=== PATIENT | female | born 1990 | race Caucasian/White ===

== ENCOUNTER 2017-10-08 16:08 | Observation (INO) | payer OTHER, SELFPAY ==
--- NOTE | 2017-10-05 22:17 | HP.PCM_ITS ---
History and Physical Date of Admission: 10/06/17 HISTORY OF PRESENT ILLNESS 27 year old woman presents with a recurrent soft tissue mass on her right occipital scalp area that has increased in size over the last few months. There is some discomfort when she bumps it. She denies any trauma. She denies any fever. She denies any recent infection. She initially had a nodular lesion removed from this area in 08/[address] Hughes. The Pathology was negative for carcinoma according to the patient. She states she had headaches that initially improved after that excision in 08/20, and they have since returned. She had a recent MRI which showed this nodular mass in the right occipital area and no intracranial component. PAST MEDICAL HISTORY Headaches. UTI's. Recurrent vaginitis. Anxiety. Depression. PAST SURGICAL HISTORY Excision right occipital nodular lesion - 08/20. MEDICATIONS Topamax. Valtrex. Diflucan. Nystatin-Triamcinolone ointment. Tylenol PM. ALLERGIES Oxycodone. SOCIAL HISTORY Patient does not smoke. Patient does not drink alcohol. FAMILY HISTORY Negative for skin cancer. Diabetes. Hypertension. REVIEW OF SYSTEMS General - Denies fever, weight loss. Has fatigue. ENT - Denies nasal congestion and sore throat. Eyes - Denies cataracts. Denies glaucoma. Endocrine - Denies excessive thirst or urination. Skin - Has recurrent painful soft tissue mass right occipital scalp. Musculoskeletal - Denies joint pain, joint stiffness, weakness of muscles and joints, back pain, and arthritis. Neuro - Has headaches. Has lightheadedness. Cardiovascular - Denies chest pain. Has fatigue. Has lightheadedness. Denies shortness of breath with exertion. Psych - Has anxiety. Has some depression. Respiratory - Denies shortness of breath. Denies chronic cough. Gastrointestinal - Denies nausea, vomiting, diarrhea, and constipation. Hematologic - Denies abnormal bruising and bleeding. Genitourinary - Denies urinary frequency. Has some hematuria. Has UTI's and recurrent vaginitis. PHYSICAL EXAMINATION General - Alert and oriented. HEENT - PERRL. EOMI. Throat is clear. On the right occipital scalp just inferior to a previous scar is a nodular lesion that is mobile. There is some adherence to the overlying skin. It measures 1.5 cm. Slight tenderness to palpation. No ulceration. No evidence of infection. No sensory deficits. Neck - Supple and nontender. No cervical adenopathy. Lungs - Clear to auscultation. Heart - Regular rate and rhythm. Abdomen - Soft and nondistended. Extremities - FROM. No axillary adenopathy. Radial pulses are palpable. Neuro - CN II - XII grossly intact. ASSESSMENT 1. 1.5 cm recurrent painful nodular lesion right occipital scalp. 2. Headaches. PLAN MRI reviewed. Recommend excision of this recurrent painful soft tissue mass right occipital scalp. Will send the lesion to Pathology for analysis to rule out carcinoma. Should be able to close the wound primarily. However with the history of previous excision, will remove the scar tissue along with the lesion. If the lesion is close to the skin, I may remove some additional skin to minimize recurence. This may necessitate a local skin flap for reconstruction. Doubt I would need to place a skin graft there. It was discussed with the patient that after surgery, there is the chance she may develop a small area of alopecia in the area of the scar. The patient voices understanding and wishes to proceed. Patient was informed of the risks and complications of the procedure including alternatives to surgery. These were discussed with her personally. She voices understanding and wishes to proceed. Some of the risks and complications of the procedure were included in a form from the [employer]. Surgery will be done under general anesthesia on an outpatient basis.
[2017-10-06] VITALS (13 sets, daily range): BP systolic 103–120; BP diastolic 61–80; PULSE 60–85; RESP 12–18; TEMP 35.7–37.1; O2SAT 96–100; BMI 23.3; BMI 24.5
[2017-10-06 09:23] LABS: Internal QC Validated? YES +Cl - CLEAR BKGD; Pregnancy, Urine Negative Negative
--- NOTE | 2017-10-06 10:50 | LES_PTH ---
PATIENT: SCHUYLER DUKE LOC: [facility]3 U#:[id number] AGE/SX: 27/F ROOM: MS315 RE10/08/[address]: Dr. Elia Perrin MD : 1990 BED: 1 DIS: 10/11/2017 SPEC #: [id number] RECD: 10/07/17 09:23 STATUS: SILVIA REJanette #: [id number] BRENT: 10/06/17 10:[address]: Elia Perrin DEPT: SURGICAL PATHOLOGY RECD BY: Lolis Garcia ENTERED: 10/07/17 11:09 SP TYPE: Lesion OTHR DR: Dr. Naheed Kam DO Tissues: Skin of scalp, NOS Procedures: Decalcification bone/plaque Surgery Specimen Level III HEADER OPERATION: Excision submuscular bony lesion, right occipital scalp PRE-OP DIAGNOSIS: 1.5 cm recurrent painful nodular lesion right occipital scalp TISSUE SUBMITTED: Recurrent painful lesion right occipital scalp MICROSCOPIC DIAGNOSIS Recurrent painful lesion right occipital scalp, excision: Pieces of bone with reactive changes. Adherent pieces of fibroadipose tissue with mild chronic inflammation. Negative for malignancy. AUDI:anila 10/12/17 MICROSCOPIC DESCRIPTION Slides are reviewed. GROSS DESCRIPTION Received in fixative is one container labeled with the patient's name and designated recurrent painful bony lesion right occipital scalp. The specimen consists of multiple pieces of bone that in aggregate measure 2.5 x 2.5 x 0.3 cm. The entire specimen is submitted in one cassette after decalcification. / AUDI:anila 10/07/17 TC:5 CPT: 34839, 91148
[2017-10-06] MEDS: Clindamycin 900 MG/50 ML BAG 75 MG IV (11:16)
[2017-10-06] MEDS: Mupirocin Ointment 22gm Tube 1 APPLIC (12:41)
--- NOTE | 2017-10-06 12:59 | PCM.IMDPSTOP ---
Immediate Post-Op Note Date of Procedure: 10/06/17 Primary Surgeon/Physician: Elia Perrin ldr rn: None Pre-Operative Diagnosis: 1. 1.5 cm recurrent painful nodular lesion right occipital scalp. 2. Headaches. Post-Operative Diagnosis: 1. 1.5 cm recurrent painful submuscular bone lesion right occipital scalp. 2. Headaches. Surgery/Procedure Performed:: Excision 1.5 cm recurrent painful submuscular bone lesion right occipital scalp with 3 cm complex closure. Description of Surgical Findings:: 27 year old woman presents with a recurrent soft tissue mass on her right occipital scalp area that has increased in size over the last few months. There is some discomfort when she bumps it. She denies any trauma. She denies any fever. She denies any recent infection. She initially had a nodular lesion removed from this area in 08/[address] Hughes. The Pathology was negative for carcinoma according to the patient. She states she had headaches that initially improved after that excision in 08/20, and they have since returned. She had a recent MRI which showed this nodular mass in the right occipital area and no intracranial component. Today the patient underwent excision 1.5 cm recurrent painful submuscular bone lesion right occipital scalp with 3 cm complex closure. Estimated Blood Loss: 50 ml. Specimen's removed: Submuscular bone lesion right occipital scalp to Pathology. Drains: None. Type of Anesthesia:: General - Admit VTE Documentation VTE Present on Admission: No VTE Mechan Device Prophylaxis: SCD's VTE Pharm Prophylaxis ordered?: No
--- NOTE | 2017-10-06 13:08 | OP.PN_ITS ---
Immediate Post-Op Note Date of Procedure: 10/06/17 Primary Surgeon/Physician: Elia Perrin accredited legal secretary: None Pre-Operative Diagnosis: 1. 1.5 cm recurrent painful nodular lesion right occipital scalp. 2. Headaches. Post-Operative Diagnosis: 1. 1.5 cm recurrent painful submuscular bone lesion right occipital scalp. 2. Headaches. Surgery/Procedure Performed:: Excision 1.5 cm recurrent painful submuscular bone lesion right occipital scalp with 3 cm complex closure. Description of Surgical Findings:: 27 year old woman presents with a recurrent soft tissue mass on her right occipital scalp area that has increased in size over the last few months. There is some discomfort when she bumps it. She denies any trauma. She denies any fever. She denies any recent infection. She initially had a nodular lesion removed from this area in 08/[address] Hughes. The Pathology was negative for carcinoma according to the patient. She states she had headaches that initially improved after that excision in 08/20, and they have since returned. She had a recent MRI which showed this nodular mass in the right occipital area and no intracranial component. Today the patient underwent excision 1.5 cm recurrent painful submuscular bone lesion right occipital scalp with 3 cm complex closure. Estimated Blood Loss: 50 ml. Specimen's removed: Submuscular bone lesion right occipital scalp to Pathology. Drains: None. Type of Anesthesia:: General - Admit VTE Documentation VTE Present on Admission: No VTE Mechan Device Prophylaxis: SCD's VTE Pharm Prophylaxis ordered?: No
--- NOTE | 2017-10-06 13:15 | PCM.DC ---
You will use the following diet at home:: No restrictions Discharge Activity: May not drive while taking narcotic pain medications., May Shower - in two days., - - keep head elevated. no heavy lifting. May shower in (days): 2 May resume sexual activity in: No Restrictions Weight Bearing Status: Weight bearing as tolerated Lifting Restrictions: 20 lbs. Keep extremity elevated above heart level: - - elevate head. Call your doctor if your incision/area has: Continuous Slow Oozing, Sudden Increased Bleeding, Increased Pain/ Swelling, Increased Redness, Foul Smelling Discharge, Swelling at the incision site Call your doctor if you observe: Fever of 101 or Higher, Shortness of breath, Chest pain, Calf discomfort, Uncontrolled pain Suture Line Care: - - antibiotic ointment to suture line daily. Cleanse incision/area with: - - may get incision wet in the shower in two days. Allergies/Adverse Reactions: Allergies oxycodone [From Percocet] Adverse Reaction (Verified 09/29/17 15:05) Nausea Medications to take at Discharge topiramate 25 mg tablet 50 mg PO QHS 09/20/17 valacyclovir 500 mg tablet 500 mg PO QDAY PRN 09/20/17 Acetaminophen/Diphenhydramine [Tylenol Pm Ex-Strength Caplet] 1 each PO QHS PRN 10/05/17 Fluconazole 150 mg PO .COMPLEX 10/05/17 Nystatin/Triamcin [Nystatin-Triamcinolone Ointm] 1 applic TOPICAL TID PRN 10/05/17 Clindamycin HCl [Cleocin] 300 mg PO TID #15 cap 10/06/17 Diazepam [Valium] 5 mg PO 4X/DAY PRN PRN 5 Days #20 tab 10/06/17 HydromorphONE [Dilaudid] 2 - 4 mg PO 4X/DAY PRN PRN 5 Days #40 tab 10/06/17 The following prescriptions were given: Diazepam [Valium] 5 mg PO 4X/DAY PRN PRN 5 Days #20 tab PRN Reason: Spasms HydromorphONE [Dilaudid] 2 - 4 mg PO 4X/DAY PRN PRN 5 Days #40 tab PRN Reason: Pain Clindamycin HCl [Cleocin] 300 mg PO TID #15 cap Primary Care Physician: Naheed Kam DO [Primary Care Provider] - Please Follow Up With: Elia Perrin MD When: one week. call [phone] for appt. Proposed Discharge Date: 10/06/17
--- NOTE | 2017-10-06 13:19 | DCINST_ITS ---
You will use the following diet at home:: No restrictions Discharge Activity: May not drive while taking narcotic pain medications., May Shower - in two days., - - keep head elevated. no heavy lifting. May shower in (days): 2 May resume sexual activity in: No Restrictions Weight Bearing Status: Weight bearing as tolerated Lifting Restrictions: 20 lbs. Keep extremity elevated above heart level: - - elevate head. Call your doctor if your incision/area has: Continuous Slow Oozing, Sudden Increased Bleeding, Increased Pain/ Swelling, Increased Redness, Foul Smelling Discharge, Swelling at the incision site Call your doctor if you observe: Fever of 101 or Higher, Shortness of breath, Chest pain, Calf discomfort, Uncontrolled pain Suture Line Care: - - antibiotic ointment to suture line daily. Cleanse incision/area with: - - may get incision wet in the shower in two days. Allergies/Adverse Reactions: Allergies oxycodone [From Percocet] Adverse Reaction (Verified 09/29/17 15:05) Nausea Medications to take at Discharge topiramate 25 mg tablet 50 mg PO QHS 09/20/17 valacyclovir 500 mg tablet 500 mg PO QDAY PRN 09/20/17 Acetaminophen/Diphenhydramine [Tylenol Pm Ex-Strength Caplet] 1 each PO QHS PRN 10/05/17 Fluconazole 150 mg PO .COMPLEX 10/05/17 Nystatin/Triamcin [Nystatin-Triamcinolone Ointm] 1 applic TOPICAL TID PRN Clindamycin HCl [Cleocin] 300 mg PO TID #15 cap 10/06/17 Diazepam [Valium] 5 mg PO 4X/DAY PRN PRN 5 Days #20 tab 10/06/17 HydromorphONE [Dilaudid] 2 - 4 mg PO 4X/DAY PRN PRN 5 Days #40 tab 10/06/17 The following prescriptions were given: Diazepam [Valium] 5 mg PO 4X/DAY PRN PRN 5 Days #20 tab PRN Reason: Spasms HydromorphONE [Dilaudid] 2 - 4 mg PO 4X/DAY PRN PRN 5 Days #40 tab PRN Reason: Pain Clindamycin HCl [Cleocin] 300 mg PO TID #15 cap Primary Care Physician: Naheed Kam DO [Primary Care Provider] - Please Follow Up With: Elia Perrin MD When: one week. call [phone] for appt. Proposed Discharge Date: 10/06/17
--- NOTE | 2017-10-06 19:25 | PCM.PN.BLA ---
Progress Note Patient was having difficulty with pain and nausea especially after receiving IV analgesics. Will send her upstairs for a surgical observation overnight stay and for continued IV analgesics as needed. When she is tolerating po analgesics and not nauseated, will be able to send her home.
[2017-10-06] MEDS: HYDROmorphone 2 MG TABLET PO (21:21)
[2017-10-06] MEDS: Lactated Ringers 1,000 ML 60 ML IV (21:22)
[2017-10-06] MEDS: Clindamycin 600 MG/50 ML BAG 100 MG IV (21:22)
[2017-10-06] MEDS: diazePAM 5 MG Tablet PO (22:47)
[2017-10-07] VITALS (7 sets, daily range): BP systolic 102–117; BP diastolic 57–76; PULSE 66–78; RESP 14–18; TEMP 36.6–37.2; O2SAT 95–100
[2017-10-07] MEDS: HYDROmorphone 2 MG TABLET PO ×3 (01:36→17:51)
[2017-10-07] MEDS: 0.9% NaCl Peripheral Flush Adult/Peds IV ×3 (04:43→10:00)
[2017-10-07] MEDS: Clindamycin 600 MG/50 ML BAG 100 MG IV ×3 (05:08→21:42)
[2017-10-07 06:35] LABS: Hematocrit 36.6 % (37-47); Hemoglobin 11.7 g/dl (12.0-15.0); Mean Corpuscular Hgb 27.3 pg (27.0-32.0); Mean Corpuscular Volume 85.3 fL (81-99); Mean Platelet Vol. 10.2 fl (6.2-12.0); Platelet Count 214 K/mm3 (150-450); RBC Distribution Width CV 13.5 % (11.6-14.6); RBC Distribution Width SD 41.6 fl (35.1-43.9); Red Blood Count 4.29 M/mm3 (4.2-5.4)
[2017-10-07 06:38] LABS: Scan Indicated on CBC? Y/N NO
[2017-10-07] MEDS: diazePAM 5 MG Tablet PO ×2 (06:54→21:42)
[2017-10-07] MEDS: Ondansetron 4 MG/2 ML Vial IV (06:54)
[2017-10-07 07:05] LABS: Prealbumin 18.3 mg/dL (20.0-40.0)
[2017-10-07] MEDS: Docusate Sodium 100 MG Capsule PO ×2 (09:58→21:43)
--- NOTE | 2017-10-07 12:10 | PN.SURG_ITS ---
Subjective: Postop #1 Patient complaining of incisional pain and spasm and burning nerve pain. Sometimes when she would sit up she would get lightheaded and dizzy(probably Morphine medication related). - Physical Exam General: Alert, Oriented x3 HEENT: PERRLA, EOMI Neck: Supple Lungs: Clear to auscultation Cardiovascular: Regular rate, Regular Rhythm Abdomen: Soft, Non-Distended Skin: Incision - right occipital scalp incision dry and intact. No evidence of hematoma. Some tenderness to palpation. Neurological: Cranial nerves II-XII grossly intact Psych/Mental Status: Normal Affect, Appropriate Vital Signs Temp Pulse Resp BP Pulse Ox 98.9 F 68 14 109/67 100 10/07/17 09:47 10/07/17 09:47 10/07/17 09:47 10/07/17 09:47 10/07/17 09:47 Oxygen Delivery Method Room Air Weight: 125 lb 14.143 oz Body Mass Index (BMI) 24.5 Intake and Output for Last 24 Hours 10/05/17 10/06/17 10/07/17 23:59 23:59 23:59 Intake Total 5569 / 5569 719 / 719 Output Total 1100 / 1100 1300 / 1300 Balance 4469 / 4469 -581 / -581 Laboratory Tests Past 24 Hrs 10/07/17 10/07/17 05:55 05:55 WBC 10.0 RBC 4.29 Hgb 11.7 L Hct 36.6 L MCV 85.3 MCH 27.3 MCHC 32.0 RDW 13.5 RDW Differential 41.6 Plt Count 214 MPV 10.2 Prealbumin 18.3 L Assessment/Plan 1.5 cm recurrent painful submuscular bone lesion right occipital scalp. 2. Headaches. 3. 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 4. Postop dizziness, probably Morphine medication related. Patient complains of incisional pain and spasm and burning nerve pain. Will add Neurontin and a Duragesic Patch. Will wean her Morphine to 2 mg in anticipation of discharge later today. Would like to see how the initial decrease and then discontinuation of Morphine affects her postop dizziness. Continue Valium for spasm. Wean to po analgesia and discharge home today. Keep head elevated. May shower tomorrow. Apply antibiotic ointment to suture line daily. Wrote script for Cleocin for 5 days (15 tabs). Wrote scripts for Dilaudid for pain (40 tabs) and for Valium for spasm (20 tabs ) and for Neurontin for burning nerve pain 100mg (60 tabs) with a refill and for Duragesic Patch for pain 12mcg (5 patches). Wrote scripts for Phenergan for nausea (30 tabs) with a refill and for Colace for constipation (60 tabs). Followup office one week.
--- NOTE | 2017-10-07 12:38 | PCM.DC ---
- Discharge Diagnoses Current Active Problems: Current Active and Chronic Problems (Last Updated 09/29/17 @ 14:56 by Beatris Brice) Bone neoplasm (Chronic) 1.5 cm painful submuscular bone lesion right occipital scalp Headache (Chronic) Discharge Activity: May not drive while taking narcotic pain medications., May Shower - in two days., - - keep head elevated. no heavy lifting. May shower in (days): 2 May resume sexual activity in: No Restrictions Weight Bearing Status: Weight bearing as tolerated Keep extremity elevated above heart level: - - elevate head. Call your doctor if your incision/area has: Continuous Slow Oozing, Sudden Increased Bleeding, Increased Pain/ Swelling, Increased Redness, Foul Smelling Discharge, Swelling at the incision site Call your doctor if you observe: Fever of 101 or Higher, Shortness of breath, Chest pain, Calf discomfort, Uncontrolled pain Suture Line Care: - - antibiotic ointment to suture line daily. Cleanse incision/area with: - - may get incision wet in the shower in two days. Allergies/Adverse Reactions: Allergies oxycodone [From Percocet] Adverse Reaction (Verified 09/29/17 15:05) Nausea Medications to take at Discharge topiramate 25 mg tablet 50 mg PO QHS 09/20/17 valacyclovir 500 mg tablet 500 mg PO QDAY PRN 09/20/17 Acetaminophen/Diphenhydramine [Tylenol Pm Ex-Strength Caplet] 1 each PO QHS PRN 10/05/17 Fluconazole 150 mg PO .COMPLEX 10/05/17 Nystatin/Triamcin [Nystatin-Triamcinolone Ointm] 1 applic TOPICAL TID PRN 10/05/17 Clindamycin HCl [Cleocin] 300 mg PO TID #15 cap 10/06/17 Diazepam [Valium] 5 mg PO 4X/DAY PRN PRN 5 Days #20 tab 10/06/17 HydromorphONE [Dilaudid] 2 - 4 mg PO 4X/DAY PRN PRN 5 Days #40 tab 10/06/17 Docusate Sodium [Colace] 100 mg PO BID #60 cap 10/07/17 Fentanyl [Duragesic] 12 mcg TRANSDERM. Q3D 15 Days #5 patch 10/07/17 Gabapentin [Neurontin] 100 mg PO BIDCM 30 Days #60 cap 10/07/17 ProMETHAzine [Phenergan] 25 mg PO 4X/DAY PRN PRN #30 tab 10/07/17 The following prescriptions were given: Diazepam [Valium] 5 mg PO 4X/DAY PRN PRN 5 Days #20 tab PRN Reason: Spasms Fentanyl [Duragesic] 12 mcg TRANSDERM. Q3D 15 Days #5 patch HydromorphONE [Dilaudid] 2 - 4 mg PO 4X/DAY PRN PRN 5 Days #40 tab PRN Reason: Pain ProMETHAzine [Phenergan] 25 mg PO 4X/DAY PRN PRN #30 tab PRN Reason: Nausea/Vomiting Docusate Sodium [Colace] 100 mg PO BID #60 cap Gabapentin [Neurontin] 100 mg PO BIDCM 30 Days #60 cap Clindamycin HCl [Cleocin] 300 mg PO TID #15 cap Primary Care Physician: Naheed Kam DO [Primary Care Provider] - Please Follow Up With: Elia Perrin MD When: one week. call [phone] for appt. Proposed Discharge Date: 10/06/17
[2017-10-07] MEDS: Lactated Ringers 1,000 ML 60 ML IV (12:59)
[2017-10-07] MEDS: Gabapentin 100 MG Capsule PO (17:51)
--- NOTE | 2017-10-07 18:35 | NURSING ---
In room discussing with pt that discharge was cancelled for day with reevaluation tomorrow. Discussed the importance of staff being with pt to walk into bathroom due to dizziness and safety. Pt states she needs to ambulate to bathroom, up to side of bed and reports feeling dizzy. Encouraged pt to sit as long as needed for dizziness to pass. Pt ambulated to bathroom independently with RN in room. Gait appeared steady. Pt voided and returned to bed.
[2017-10-07 20:35] LABS: Anion Gap 8 (5-15); BUN 8 mg/dL (7-18); BUN/Creat Ratio 12.4 RATIO (10-20); Calcium,Total 8.4 mg/dL (8.5-10.1); Chloride 107 mmol/L (98-107); Creatinine, Serum 0.64 mg/dL (0.55-1.02); EST Glomerular Filtration Rate 116 mL/min (>60); Est Glom Filt Rate - Afr Amer 141 mL/min (>60); Glucose 96 mg/dL (74-106); Potassium 3.7 mmol/L (3.5-5.1); Sodium Level 142 mmol/L (136-145)
--- NOTE | 2017-10-07 21:39 | PCM.PN.BLA ---
Progress Note The patient still had some residual dizziness and unsteadiness on her feet. She will be alone a lot initially at home and feels uncomfortable being by herself. She states her is going to school and is not at home very much at the present time. The medication has been decreased to twice a day. The IV Morphine has been discontinued. Will see how the decrease in medication affects her postop dizziness. Will have PT evaluate tomorrow for ambulation. If symptoms persist, will obtain a CT Brain.
--- NOTE | 2017-10-07 21:40 | OP.PCM_ITS ---
Report of Operation Date of Procedure: 10/06/17 Pre-Operative Diagnosis: 1. 1.5 cm recurrent painful nodular lesion right occipital scalp. 2. Headaches. Post-Operative Diagnosis: 1. 1.5 cm recurrent painful submuscular bone lesion right occipital scalp. 2. Headaches. Surgery/Procedure Performed:: Excision 1.5 cm recurrent painful submuscular bone lesion right occipital scalp with 3 cm complex closure. Description of Surgical Findings:: 27 year old woman presents with a recurrent soft tissue mass on her right occipital scalp area that has increased in size over the last few months. There is some discomfort when she bumps it. She denies any trauma. She denies any fever. She denies any recent infection. She initially had a nodular lesion removed from this area in 08/[address] Hughes. The Pathology was negative for carcinoma according to the patient. She states she had headaches that initially improved after that excision in 08/20, and they have since returned. She had a recent MRI which showed this nodular mass in the right occipital area and no intracranial component. Patient was informed of the risks and complications of the procedure including alternatives to surgery. These were discussed with her personally. She voices understanding and wishes to proceed. Some of the risks and complications of the procedure were included in a form from the [employer]. Surgery will be done under general anesthesia on an outpatient basis. social service agency director: None Type of Anesthesia:: General Specimen's removed: Submuscular bone lesion right occipital scalp to Pathology. Drains: None. Estimated Blood Loss (mL): 50 ml. Description of Procedure: Patient was taken to OR in supine position and was placed under general anesthesia. She was then placed in the lateral position as her right occipital scalp area was prepped and draped in the usual fashion. SCD's were placed for DVT prophylaxis. Perioperative antibiotics were given intravenously. Using xylocaine with epinephrine, I infiltrated the right occipital scalp area over the nodular mass and previous scarring. After waiting 5 minutes for the anesthetic to take effect, I cut some of her hair to get better exposure. I made an incision over the nodular mass perpendicular to the previous scar. I dissected into the subcutaneous tissue. No mass was seen but it was still palpable. A lot of scar tissue was present from her previous excision and it was excised down to the muscle to minimize recurrence. No identifiable nerves were seen during the dissection but nerve injury can certainly occur with the presence of the scar tissue from the previous surgery that was excised to minimize recurrence. Possible numbness was discussed with the patient preoperatively. She voiced understanding and wished to proceed. When I got down to the muscle, there was bulging but no visible mass which suggested a submuscular mass. I made an incision in the muscle and there was periosteum. The nodular mass appeared to be a bony mass. The mass was smooth and uniform in shape without irregularities. There appeared to be a plane of dissection at the level of the skull that I could palpate with my fingers but I couldn't budge it. Therefore I used an osteotome and a mallet and gently excised this bony mass in a tangential fashion flush with the surrounding bone. It was removed easily. I looked at the inside of the bony lesion and it appeared to be cystic. The bony mass was sent to Pathology for analysis to rule out carcinoma. The remaining bone appeared smooth with no clinical suspicion of malignancy. The wound was irrigated with saline. I sprayed the wound with Marlee absorbable hemostat to minimize seroma formation postoperatively. The wound was closed in a complex multiple layered fashion with 4-0 Monocryl figure of eight interrupted sutures for the muscle layer. The deep dermis and subcutaneous tissue was approximated with 4-0 Monocryl interrupted sutures. The skin was approximated with 4-0 Monocryl simple and vertical mattress interrupted sutures. Antibiotic ointment was applied to the suture line. Patient tolerated the procedure well and was sent to PACU in satisfactory condition. She will be sent home on antibiotics and pain medication. She will followup in the office in a week for a wound check as well as to discuss the Pathology report. The sutures will come out on their own. Grafts/Implants Used: None. - Complications None. - Admit VTE Documentation VTE Present on Admission: No VTE Mechan Device Prophylaxis: SCD's VTE Pharm Prophylaxis ordered?: No Code Visit Surgery Charges CPT - 66940 ICD-10 - D49.2
[2017-10-08 05:00] VITALS: BP 99/76; PULSE 73; RESP 16; TEMP 36.6; O2SAT 97
[2017-10-08] MEDS: Clindamycin 600 MG/50 ML BAG 100 MG IV ×3 (05:26→21:05)
[2017-10-08] MEDS: HYDROmorphone 2 MG TABLET PO (05:53)
[2017-10-08 07:31] LABS: Hematocrit 39.6 % (37-47); Hemoglobin 12.6 g/dl (12.0-15.0); Mean Corp Hgb Conc 31.8 g/gl (32-36); Mean Corpuscular Hgb 27.3 pg (27.0-32.0); Mean Corpuscular Volume 85.9 fL (81-99); Mean Platelet Vol. 9.7 fl (6.2-12.0); Platelet Count 219 K/mm3 (150-450); RBC Distribution Width CV 13.6 % (11.6-14.6); RBC Distribution Width SD 41.9 fl (35.1-43.9); Red Blood Count 4.61 M/mm3 (4.2-5.4); White Blood Count 7.7 K/mm3 (4.4-11.0)
[2017-10-08 07:33] LABS: Scan Indicated on CBC? Y/N NO
[2017-10-08 07:59] LABS: Anion Gap 3 (5-15); BUN 13 mg/dL (7-18); BUN/Creat Ratio 21.9 RATIO (10-20); Calcium,Total 8.9 mg/dL (8.5-10.1); Chloride 103 mmol/L (98-107); Creatinine, Serum 0.59 mg/dL (0.55-1.02); EST Glomerular Filtration Rate 128 mL/min (>60); Est Glom Filt Rate - Afr Amer 155 mL/min (>60); Estimated Creatinine Clearance 101.97 ml/min; Glucose 83 mg/dL (74-106); Sodium Level 140 mmol/L (136-145)
[2017-10-08] MEDS: Docusate Sodium 100 MG Capsule PO ×2 (08:40→21:05)
[2017-10-08] MEDS: Gabapentin 100 MG Capsule PO ×2 (08:40→16:54)
[2017-10-08 08:43] VITALS: BP 125/88; PULSE 74; RESP 18; TEMP 36.8; O2SAT 100
--- NOTE | 2017-10-08 10:10 | CT_ITS ---
STUDY: CT BRAIN WITH AND WITHOUT CONTRAST REASON FOR EXAM: Female, 27 years old. Headache and dizziness. Status post excision of right occipital scalp mass. RADIATION DOSAGE (If Supplied By Facility): CTDIvol = ( 44.99 ) mGy, DLP = ( 1423.49 ) mGycm TECHNIQUE: Transaxial CT imaging of the brain was performed pre and post contrast administration. The examination was performed with intravenous administration of 80CC ml of Isovue 300 contrast material. Individualized dose optimization techniques were used for this CT. COMPARISON: None. FINDINGS: There is mild soft tissue swelling of the right occipital scalp. Normal calvarium. Normal size ventricles and extra-axial spaces for the patient's age. Normal white matter tracts of the cerebral hemispheres. Normal basal ganglia and thalami. Normal brainstem. Normal cerebellum. There is no intracranial hemorrhage. There are no findings of an acute ischemic infarction. Normal visualized paranasal sinuses. CT/Brain/Head W/WO Contrast IMPRESSION: No acute intracranial process. Electronically Signed: Ross Oconnor MD at 11:43 EST Tel , Service support ,
[2017-10-08] MEDS: diazePAM 5 MG Tablet PO ×2 (10:47→23:33)
[2017-10-08] MEDS: 0.9% NaCl Peripheral Flush Adult/Peds IV ×3 (11:02→16:54)
[2017-10-08] MEDS: Ondansetron 4 MG/2 ML Vial IV (11:56)
[2017-10-08] MEDS: Lactated Ringers 1,000 ML 60 ML IV (12:01)
[2017-10-08 14:43] VITALS: BP 118/81; PULSE 69; RESP 16; TEMP 36.3; O2SAT 100
[2017-10-08 15:04] VITALS: BP 113/80
[2017-10-08] MEDS: Meclizine HCl 25 MG Tablet PO ×2 (15:54→23:33)
--- NOTE | 2017-10-08 16:08 | PCM.PN.SRG ---
Subjective: Postop #2 Patient has persistent dizziness. - Physical Exam General: Alert, Oriented x3 HEENT: PERRLA, EOMI Neck: Supple Lungs: Clear to auscultation Cardiovascular: Regular rate, Regular Rhythm Abdomen: Soft, Non-Distended Skin: Incision - right occipital scalp incision dry and intact. No clinical evidence of hematoma. Has incisonal pain. Also has some pain extending inferiorly onto the neck. Neurological: Cranial nerves II-XII grossly intact Psych/Mental Status: Normal Affect, Appropriate Vital Signs Temp Pulse Resp BP Pulse Ox 97.4 F L 69 16 113/80 100 10/08/17 14:43 10/08/17 14:43 10/08/17 14:43 10/08/17 15:04 10/08/17 14:43 Oxygen Delivery Method Room Air Weight: 125 lb 14.143 oz Body Mass Index (BMI) 24.5 Intake and Output for Last 24 Hours 10/06/17 10/07/17 10/08/17 23:59 23:59 23:59 Intake Total 5569 / 5569 1574 / 1574 1839 / 1839 Output Total 1100 / 1100 3750 / 3750 1700 / 1700 Balance 4469 / 4469 -2176 / -2176 139 / 139 Laboratory Tests Past 24 Hrs 10/07/17 10/08/17 10/08/17 05:55 07:16 07:16 WBC 7.7 RBC 4.61 Hgb 12.6 Hct 39.6 MCV 85.9 MCH 27.3 MCHC 31.8 L RDW 13.6 RDW Differential 41.9 Plt Count 219 MPV 9.7 Sodium 142 140 Potassium 3.7 4.0 Chloride 107 103 Carbon Dioxide 27.0 34.0 H Anion Gap 8 3 L BUN 8 13 Creatinine 0.64 0.59 Estim Creat Clear Calc 94.00 101.97 Est GFR (MDRD) Af Amer 141 155 Est GFR (MDRD) Non-Af 116 128 BUN/Creatinine Ratio 12.4 21.9 H Glucose 96 83 Calcium 8.4 L 8.[address] 10/08/17 10:10 IMPRESSION: No acute intracranial process. 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 2. Headaches. 3. 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 4. Postop dizziness. Patient complains of incisional pain and spasm and burning nerve pain. She also has headache. Continue Neurontin and Duragesic Patch. Dilaudid and Valium have been decreased to twice a day to see if the dizziness improves. Because of the persistent dizziness, a CT Brain was obtained which showed no acute intracranial process. PT evaluation was done for ambulation. The dizziness persisted and they felt she was not safe to go home at this time. Will add Antivert to see if that helps the dizziness. With decrease of the medication and with persistence of dizziness, there could be central nervous system origin to this especially with her headache history. Keep head elevated. Apply antibiotic ointment to suture line daily. Recommended to her to followup with her PCP at discharge regarding her persistent headaches.
[2017-10-08] MEDS: Acetaminophen 325 MG Tablet 650 MG PO ×2 (16:52→23:34)
[2017-10-08 21:00] VITALS: BP 116/60; PULSE 72; RESP 16; TEMP 36.9; O2SAT 98
[2017-10-09] MEDS: HYDROmorphone 2 MG TABLET PO (02:12)
[2017-10-09 02:14] VITALS: BP 102/72; PULSE 67; RESP 16; TEMP 36.4; O2SAT 100
[2017-10-09] MEDS: Ondansetron 4 MG/2 ML Vial IV ×2 (05:32→16:19)
[2017-10-09] MEDS: Clindamycin 600 MG/50 ML BAG 100 MG IV ×3 (05:33→22:57)
[2017-10-09] MEDS: 0.9% NaCl Peripheral Flush Adult/Peds IV ×3 (05:33→16:20)
[2017-10-09] MEDS: Meclizine HCl 25 MG Tablet PO ×3 (05:40→20:09)
[2017-10-09] MEDS: Acetaminophen 325 MG Tablet 650 MG PO ×3 (05:40→20:09)
[2017-10-09 08:17] VITALS: BP 114/77; PULSE 53; RESP 16; TEMP 36.3; O2SAT 100
[2017-10-09] MEDS: Docusate Sodium 100 MG Capsule PO ×2 (08:17→20:10)
[2017-10-09] MEDS: Gabapentin 100 MG Capsule PO ×2 (08:17→16:14)
--- NOTE | 2017-10-09 13:06 | PCM.PN.SRG ---
Subjective: Postop #3 Patient has some residual dizziness, but she feels it is a little better. Ambulated a little better but still has some dizziness. - Physical Exam General: Alert, Oriented x3 HEENT: PERRLA, EOMI Neck: Supple Lungs: Clear to auscultation Cardiovascular: Regular rate, Regular Rhythm Skin: Incision - right occipital scalp incision dry and intact. No clinical evidence of hematoma. Has incisonal pain. Also has some pain extending inferiorly onto the neck. 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 2. Headaches. 3. 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 4. Postop dizziness. Patient complains of incisional pain and spasm and burning nerve pain. She also has headache. Continue Neurontin. Will stop the Duragesic Patch to see if that has any involvement with her dizziness. Dilaudid and Valium have been decreased to twice a day to see if the dizziness improves. Because of the persistent dizziness, a CT Brain was obtained which showed no acute intracranial process. PT evaluation was done for ambulation. The dizziness persisted and they felt she was not safe to go home at this time. Antivert was added and she states the dizziness is better but still intermittent. With decrease of the medication and with persistence of dizziness, there could be central nervous system origin to this especially with her headache history. Keep head elevated. Apply antibiotic ointment to suture line daily. Recommended to her to followup with her PCP at discharge regarding her persistent headaches. Dizziness is getting better. If persistent tomorrow, will consult Hospitalist for evaluation.
[2017-10-09 13:40] VITALS: BP 111/75; PULSE 67; RESP 16; TEMP 36.6; O2SAT 100
[2017-10-09 19:59] VITALS: BP 108/68; PULSE 76; RESP 16; TEMP 36.4; O2SAT 99
[2017-10-10 02:13] VITALS: BP 106/72; PULSE 90; RESP 18; TEMP 36.7; O2SAT 98
[2017-10-10] MEDS: Ondansetron 4 MG/2 ML Vial IV (02:13)
[2017-10-10] MEDS: 0.9% NaCl Peripheral Flush Adult/Peds IV ×3 (02:14→21:59)
[2017-10-10] MEDS: Acetaminophen 325 MG Tablet 650 MG PO ×3 (02:20→17:11)
[2017-10-10] MEDS: Meclizine HCl 25 MG Tablet PO ×3 (02:20→17:12)
[2017-10-10] MEDS: Clindamycin 600 MG/50 ML BAG 100 MG IV ×3 (05:43→21:59)
[2017-10-10 07:53] VITALS: BP 116/82; PULSE 88; RESP 16; TEMP 36.6; O2SAT 100
[2017-10-10] MEDS: Gabapentin 100 MG Capsule PO (07:57)
[2017-10-10] MEDS: Docusate Sodium 100 MG Capsule PO ×2 (07:57→21:59)
[2017-10-10] MEDS: HYDROmorphone 2 MG TABLET PO (09:26)
[2017-10-10 10:27] VITALS: BP 106/61; BP 111/80; BP 113/75; PULSE 101; PULSE 79; PULSE 86
--- NOTE | 2017-10-10 10:53 | PCM.PN.HOSP ---
Subjective: Medical consult note: 27 y/o with past medical history significant for migraine headaches, on chronic Topamax, who comes in for an elective surgery to remove a mass in the right posterior neck. She was done successfully on 10/06/2017 without any complications. Patient was kept overnight for pain control. Patient complained of feeling dizzy and unable to walk. She had also complained of right hearing loss on postop day 1. Patient was kept further for further monitoring with persistence of headache dizziness. CT scan of the head was negative for any acute stroke. We are consulted to help manage patient postop dizziness. Patient admits to feeling unsteady on her feet, feels the room spinning somehow, denies any runny nose or diarrhea. Complains of feeling unsteady. Orthostatic vitals done this morning have been negative.. Vitals/I&O's: Vital Signs Temp Pulse Resp BP Pulse Ox 97.9 F 79 16 106/61 100 10/10/17 07:53 10/10/17 10:27 10/10/17 07:53 10/10/17 10:27 10/10/17 07:53 Oxygen Delivery Method Room Air Weight: 57.1 kg Body Mass Index (BMI) 24.5 Orthostatic Vital Signs Start: 10/10/17 10:27 Freq: Status: Active Protocol: Activity Type Activity Date Activity User E-Sign Co-Sign Detail Recorded Client Recorded Date Recorded By Document 10/10/17 10:27 AA [id number] 10/10/17 10:28 AA 10/10/17 10:27 Orthostatic Vitals Standing -Blood Pressure (90/60-120/80) 111/80 -Extremity Use Right Arm -Pulse Rate (60-100) 101 H Sitting -Blood Pressure (90/60-120/80) 113/75 -Extremity Use Right Arm -Pulse Rate (60-100) 86 Lying -Blood Pressure (90/60-120/80) 106/61 -Extremity Use Right Arm -Pulse Rate (60-100) 79 Intake and Output for Last 24 Hours 10/08/17 10/09/17 10/10/17 23:59 23:59 23:59 Intake Total 2255 / 2255 2117 / 2117 411 / 411 Output Total 2950 / 2950 1250 / 1250 Balance -695 / -695 867 / 867 411 / 411 General: Alert, Oriented x3, Cooperative, - - Looks slightly anxious, not pale, not jaundice HEENT: Atraumatic, PERRLA, EOMI, Normocephalic Oral: Moist Mucosa Neck: Supple Lungs: Clear to auscultation, Normal air movement Cardiovascular: Regular rate, Regular Rhythm, Normal S1, Normal S2, No murmurs Abdomen: Bowel Sounds Present, Soft, Non Tender, Non-Distended, No Hepato-splenomegaly Extremities: No edema Skin: No rashes, No breakdown Musculoskeletal: No Tenderness to Palpation of Joints or Extremities Lymphatic: No Cervical, Supraclavicular, or Inguinal Adenopathy Neurological: Cranial nerves II-XII grossly intact, Neuro grossly intact Psych/Mental Status: Normal Affect, Appropriate Current Medications Acetaminophen (Tylenol) 650 mg PO Q6H PRN PRN PRN Reason: PAIN Last Admin: 10/10/17 08:40 Dose: 650 mg Docusate Sodium (Colace) 100 mg PO BID [facility] Last Admin: 10/10/17 07:57 Dose: 100 mg Hydromorphone HCl (Dilaudid) 2 mg PO Q12H PRN PRN PRN Reason: SEVERE PAIN (6-10/10) Last Admin: 10/10/17 09:26 Dose: 2 mg Clindamycin Phosphate (Cleocin) 600 mg in 50 mls @ 100 mls/hr IV Q8 [facility] Last Admin: 10/10/17 05:43 Dose: 100 mls/hr Meclizine HCl (Antivert) 25 mg PO 4X/DAY PRN PRN PRN Reason: DIZZINESS Last Admin: 10/10/17 09:26 Dose: 25 mg Nutritional Formula (Osmar - Randall Flavor) 1 packet PO BIDCM [facility] Last Admin: 10/10/17 07:57 Dose: 1 packet Ondansetron HCl (Zofran) 4 mg IV Q6H PRN PRN PRN Reason: NAUSEA Last Admin: 10/10/17 02:13 Dose: 4 mg Promethazine HCl (Phenergan) 25 mg PO Q4H PRN PRN PRN Reason: NAUSEA/VOMITING Last Admin: 10/10/17 07:57 Dose: 25 mg Sodium Chloride () 5 - 30 ml IV UD PRN PRN Reason: SALINE FLUSH Last Admin: 10/10/17 02:14 Dose: 10 ml Topiramate (Topamax) 50 mg PO QHS ALEXIS Valacyclovir HCl (Valtrex) 500 mg PO DAILY PRN PRN PRN Reason: COLD SORES Last Admin: 10/09/17 22:58 Dose: 500 mg Assessment/Plan 27-year-old with past medical history of migraines who is status post-op day #4 excision, recurrent painful submuscular bone lesion in the right occipital region who complains of persistent dizziness. 1. Postoperative dizziness likely related to right-sided acute labyrinthitis with hearing loss, history of migraines, no focal neurologic findings on exam, stable vitals, negative orthostatic vitals, previous CT scan of the head was negative. Because of history of migraines and on chronic Topamax at home, will get neurology involved. Discussed with neurology -get MRI of the head, MRA head and neck, will also get ENT consult. PT and OT consult for vestibular exercises training. Medication changes made -DC Valium, gabapentin, keep on antivert (patient admits to some improvement with that). 2. Chronic migraines, on Topamax, will resume Topamax, Tylenol as needed for headaches 3. Postop day #4 status post excision biopsy, on antibiotics by primary, pain is fairly controlled on Dilaudid PO, history of adverse effects with oxycodone 4. DVT prophylaxis with early ambulation Thank you for the consult- will continue to follow-up with you Code Visit Inpatient E&M: 31730 Subs Hosp L2
--- NOTE | 2017-10-10 10:59 | MRI_ITS ---
STUDY: MRI BRAIN WITHOUT CONTRAST REASON FOR EXAM: Female, 27 years old. vertigo, hearing loss right ear; symptoms started after right occipital bone lesion removal 10/06/17; prior fatty lesion removed same area 08/2016. TECHNIQUE: Standardized multiplanar fat and water weighted pulse sequences were obtained. COMPARISON: None. FINDINGS: Normal size of the ventricles and extra-axial spaces for the patient's age. Normal white matter tracts of the supratentorial brain. Normal bilateral basal ganglia. Normal thalami. There is no extra-axial fluid accumulation. Normal flow voids within the major intracranial circulation suggesting patency by spin echo criteria. Normal sella turcica, pituitary gland, infundibular stalk, optic chiasm and hypothalamus. Normal tectal plate and pineal gland. Normal midbrain, maricel and medulla. Normal cerebellum. Normal basal cisterns. Normal bilateral temporal bones. Normal bilateral internal auditory canals. No demonstrated orbital abnormality, within the constraints of a routine brain study. Normal visualized paranasal sinuses. Right occipital soft tissue infiltration, consistent with history of surgical resection is noted. MRI/Brain without Contrast IMPRESSION: Normal unenhanced MRI of the brain. Electronically Signed: Elio Bronson MD at 13:49 EST Tel , Service support ,
--- NOTE | 2017-10-10 10:59 | MRI_ITS ---
STUDY: MRA OF THE HEAD WITHOUT CONTRAST REASON FOR EXAM: Female, 27 years old. vertigo, hearing loss right ear; symptoms started after right occipital bone lesion removal 10/06/17; prior fatty lesion removed same area 08/2016. TECHNIQUE: 3-D [id number] (TOF) imaging was performed with MIPs. The study was performed unenhanced. COMPARISON: None. FINDINGS: Normal bilateral petrous carotid arteries. Normal right cavernous carotid artery with a normal supraclinoid bifurcation. Normal left cavernous carotid artery with a normal supraclinoid bifurcation. Normal right A1 segments of the anterior cerebral artery. Normal left A1 segments of the anterior cerebral artery. Normal intact anterior communicating artery (ACOM). Normal bilateral A2 segments of the anterior cerebral arteries. Normal right M1 and M2 segments of the middle cerebral arteries, with a normal M1 bifurcation. Normal left M1 and M2 segments of the middle cerebral arteries, with a normal M1 bifurcation. Normal right posterior communicating artery (PCOM). Normal left posterior communicating artery (PCOM). Normal bilateral vertebral arteries. Normal basilar artery with a normal basilar bifurcation. The visualized bilateral superior cerebellar (SCA) arteries are normal. Normal bilateral P1, P2 and visualized P3 segments of the posterior cerebral arteries. There is no demonstrated aneurysm of the alutiiq of [place]. There is no major vessel occlusion or hemodynamically significant stenosis. There is no demonstrated abnormality of the visualized brain. MRI/MRA Head ONLY without Contrast IMPRESSION: Normal MRA of the head Electronically Signed: Elio Bronson MD at 13:14 EST Tel , Service support ,
--- NOTE | 2017-10-10 10:59 | MRI_ITS ---
STUDY: MRA NECK WITHOUT CONTRAST REASON FOR EXAM: Female, 27 years old. vertigo, hearing loss right ear; symptoms started after right occipital bone lesion removal 10/06/17; prior fatty lesion removed same area 08/2016. TECHNIQUE: Source images were obtained, MIPs were performed. The study was performed unenhanced. COMPARISON: None. FINDINGS: RIGHT CAROTID ARTERIES: Normal right common carotid artery (CCA). Normal right common carotid bulb. Normal origin of the right internal carotid (ICA) artery without a hemodynamically significant stenosis. Normal visualized cervical portion of the right internal carotid artery. Normal origin of the right external carotid artery (ECA). LEFT CAROTID ARTERIES: Normal left common carotid artery (CCA). Normal left common carotid bulb. Normal origin of the left internal carotid (ICA) artery without a hemodynamically significant stenosis. Normal visualized cervical portion of the left internal carotid artery. Normal origin of the left external carotid artery (ECA). VERTEBRAL ARTERIES: Normal antegrade flow within the bilateral vertebral artery without a hemodynamically significant stenosis. MRI/MRA Neck without Contrast IMPRESSION: Normal bilateral cervical carotid and vertebral arteries. Electronically Signed: Elio Bronson MD at 13:16 EST Tel , Service support ,
--- NOTE | 2017-10-10 11:48 | PCM.PN.BLA ---
Progress Note Asked to the patient at the request of the hospitalists for dizziness and hearing loss. 27 yo white female underwent excision of a scalp mass on 10/06/17 under general anesthesia. She woke up feeling very dizzy and did not make it home that day. She reported feeling like the room was spinning all day on and into Tuesday. She now feels unsteady on her feet but the room is not spinning. The day after surgery she noticed buzzing in her right ear and a fullness and hearing loss in the same ear. She reports pain around her ear but not in her ear. PAST MEDICAL HISTORY Headaches. UTI's. Recurrent vaginitis. Anxiety. Depression. PAST SURGICAL HISTORY Excision right occipital nodular lesion - 08/20. MEDICATIONS Topamax. Valtrex. Diflucan. Nystatin-Triamcinolone ointment. Tylenol PM. ALLERGIES Oxycodone. SOCIAL HISTORY Patient does not smoke. Patient does not drink alcohol. FAMILY HISTORY Negative for skin cancer. Diabetes. Hypertension. REVIEW OF SYSTEMS General - Denies fever, weight loss. Has fatigue. ENT - Denies nasal congestion and sore throat. Eyes - Denies cataracts. Denies glaucoma. Endocrine - Denies excessive thirst or urination. Skin - Has recurrent painful soft tissue mass right occipital scalp. Musculoskeletal - Denies joint pain, joint stiffness, weakness of muscles and joints, back pain, and arthritis. Neuro - Has headaches. Has lightheadedness. Cardiovascular - Denies chest pain. Has fatigue. Has lightheadedness. Denies shortness of breath with exertion. Psych - Has anxiety. Has some depression. Respiratory - Denies shortness of breath. Denies chronic cough. Gastrointestinal - Denies nausea, vomiting, diarrhea, and constipation. Hematologic - Denies abnormal bruising and bleeding. Genitourinary - Denies urinary frequency. Has some hematuria. Has UTI's and recurrent vaginitis. PE: Awake alert nad No spontaneous nystagmus [place] negative for rotary nystagmus bilaterally Ears-WNL bilaterally. No erythema. Middle ears are both aerated. nose- no rhinorrhea M/OP- no erythema or exudate Neck without adenopathy scalp incision looks great. Well approximated. A: Dizziness Possible right labyrinthitis. This diagnosis could only be made with an audiogram P: Physical therapy D/c when able. Follow up in the office for audiogram. She will also need outpatient vestibular rehab.
[2017-10-10] MEDS: Ketorolac 30 MG/ML Syringe IV (13:14)
[2017-10-10 13:53] VITALS: BP 106/65; PULSE 70; RESP 16; TEMP 36.5; O2SAT 100
--- NOTE | 2017-10-10 15:50 | NURSING ---
Therapy in room with pt- discussed vestibular therapy. Therapy will attempt maneuvers with pt.
--- NOTE | 2017-10-10 19:10 | PCM.PN.SRG ---
Subjective: Postop #4 Patient has some residual dizziness, and she feels a little better with ambulation. She is still unsteady when ambulating. - Physical Exam General: Alert, Oriented x3 HEENT: PERRLA, EOMI Neck: Supple Lungs: Clear to auscultation Cardiovascular: Regular rate, Regular Rhythm Skin: Incision - right occipital scalp incision dry and intact. No clinical evidence of hematoma. Has incisional pain but she feels it is improving each day. The pain extending inferiorly onto the neck has also decreased as well. Neurological: Cranial nerves II-XII grossly intact Psych/Mental Status: Normal Affect, Appropriate Vital Signs Temp Pulse Resp BP Pulse Ox 97.7 F L 70 16 106/65 100 10/10/17 13:53 10/10/17 13:53 10/10/17 13:53 10/10/17 13:53 10/10/17 13:53 Oxygen Delivery Method Room Air Weight: 125 lb 14.143 oz Body Mass Index (BMI) 24.5 Orthostatic Vital Signs Start: 10/10/17 10:27 Freq: Status: Active Protocol: Activity Type Activity Date Activity User E-Sign Co-Sign Detail Recorded Client Recorded Date Recorded By Document 10/10/17 10:27 AA [id number] 10/10/17 10:28 AA 10/10/17 10:27 Orthostatic Vitals Standing -Blood Pressure (90/60-120/80) 111/80 -Extremity Use Right Arm -Pulse Rate (60-100) 101 H Sitting -Blood Pressure (90/60-120/80) 113/75 -Extremity Use Right Arm -Pulse Rate (60-100) 86 Lying -Blood Pressure (90/60-120/80) 106/61 -Extremity Use Right Arm -Pulse Rate (60-100) 79 Intake and Output for Last 24 Hours 10/08/17 10/09/17 10/10/17 23:59 23:59 23:59 Intake Total 2255 / 2255 2117 / 2117 1211 / 1211 Output Total 2950 / 2950 1250 / 1250 450 / 450 Balance -695 / -695 867 / 867 761 / [address] 10/08/17 10:10 IMPRESSION: No acute intracranial process. Electronically Signed: Ross Oconnor MD at 11:43 EST Tel , Service support , Brain MRI 10/10/17 10:59 IMPRESSION: Normal unenhanced MRI of the brain. Electronically Signed: Elio Bronson MD at 13:49 EST Tel , Service support , Head MRA 10/10/17 10:59 IMPRESSION: Normal MRA of the head Electronically Signed: Elio Bronson MD at 13:14 EST Tel , Service support , Neck MRA 10/10/17 10:59 IMPRESSION: Normal bilateral cervical carotid and vertebral arteries. 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 2. Headaches. 3. 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 4. Postop dizziness. 5. Right labyrinthitis. Patient complains of incisional pain and spasm and burning nerve pain. She also has headache. Continue Neurontin. She has persistent dizziness so a Hospitalist consult was obtained. They recommended ENT evaluation and Neurology evaluation. ENT felt it could be labyrinthitis combined with vertigo. Audiogram and vestibular rehab was recommended as an outpatient. Neurology will see the patient tomorrow. MRI Brain was obtained today. It was normal. MRA Head was done today. It was normal. MRA Neck was done today. It was normal. Continue PT for ambulation. The dizziness is slowly getting better but is persisted. Will continue the Antivert because she thinks it is helping the dizziness a little bit. With decrease of the medication and with persistence of dizziness, there could be central nervous system origin to this especially with her headache history. Keep head elevated. Apply antibiotic ointment to suture line daily. After the Neurology evaluation tomorrow, will determine timing of discharge.
[2017-10-10 20:25] VITALS: BP 110/74; PULSE 77; RESP 16; TEMP 36.6; O2SAT 100
[2017-10-10] MEDS: Topiramate 50 MG Tablet PO (21:59)
[2017-10-11] MEDS: Meclizine HCl 25 MG Tablet PO ×2 (05:34→10:55)
[2017-10-11] MEDS: Acetaminophen 325 MG Tablet 650 MG PO (05:34)
[2017-10-11] MEDS: Clindamycin 600 MG/50 ML BAG 100 MG IV ×2 (05:35→15:02)
[2017-10-11 05:39] VITALS: BP 113/65; PULSE 83; RESP 14; TEMP 36.3; O2SAT 98
[2017-10-11 11:06] VITALS: BP 98/50; PULSE 91; RESP 16; TEMP 37.1; O2SAT 96
[2017-10-11] MEDS: HYDROmorphone 2 MG TABLET PO (12:51)
--- NOTE | 2017-10-11 13:28 | PCM.CONS.GEN ---
Reason for Consult Date of Consultation: 10/11/17 Reason for Consultation: VERTIGO History of Present Illness: The patient is a 27 year old RIGHT HANDED white female with history of migraine, on topamax and relpax at home, underwent occipital bone mass excision which was uncomplicated 10/06/17, reports since awakening she has experienced the whole world spinning now somewhat improved. able to ambulate with therapy today, felt poorly but reports this is improved, yesterday unable to ambulate. denies other neurologic symptoms. currently on multiple analgesics. healthy otherwise. 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 may be influenced by depo provera shot. Allergies oxycodone [From Percocet] Adverse Reaction (Verified 09/29/17 15:05) Nausea Home Medications: Ambulatory Orders Medication Instructions Recorded topiramate 25 mg tablet 50 mg PO QHS 09/20/17 valacyclovir 500 mg tablet 500 mg PO QDAY PRN 09/20/17 Acetaminophen/Diphenhydramine 1 each PO QHS PRN 10/05/17 [Tylenol Pm Ex-Strength Caplet] Fluconazole 150 mg PO .COMPLEX 10/05/17 Nystatin/Triamcin 1 applic TOPICAL TID PRN 10/05/17 [Nystatin-Triamcinolone Ointm] Clindamycin HCl [Cleocin] 300 mg PO TID #15 cap 10/06/17 Diazepam [Valium] 5 mg PO 4X/DAY PRN PRN 5 Days #20 10/06/17 tab HydromorphONE [Dilaudid] 2 - 4 mg PO 4X/DAY PRN PRN 5 Days 10/06/17 #40 tab Docusate Sodium [Colace] 100 mg PO BID #60 cap 10/07/17 Fentanyl [Duragesic] 12 mcg TRANSDERM. Q3D 15 Days #5 10/07/17 patch Gabapentin [Neurontin] 100 mg PO BIDCM 30 Days #60 cap 10/07/17 ProMETHAzine [Phenergan] 25 mg PO 4X/DAY PRN PRN #30 tab 10/07/17 Lives: Spouse/ Significant Other Smoking Status: Never smoker Tobacco Use: Non-smoker Alcohol: None Drugs: None Review of Systems Constitutional: Denies: Chills, Fever, Weight Change Eyes: Reports: Blurred vision HEENT: Denies: Head Aches, Sinus Congestion, Sinus Drainage Cardiovascular: Denies: Chest Pain, Palpitations Respiratory: Denies: Cough, Shortness of breath at rest, Sputum production Gastrointestinal: Denies: Abdominal Pain, Nausea, Vomiting Genitourinary: Denies: Dysuria Musculoskeletal: Denies: Joint Pain, Joint Tenderness Skin: Denies: Rash, Wounds Neurological: Denies: Numbness, Tingling, Focal weakness Psychiatric: Denies: Anxiety, Depression, Homicidal Ideations, Suicidal Ideations Hematologic/ Lymphatic: Denies: Easy Bruising, Easy Bleeding - Physical Exam General: Alert, Oriented x3, Cooperative HEENT: Atraumatic, PERRLA, EOMI, Normocephalic Neck: Supple, No JVD, Negative Carotid Bruits Lungs: Clear to auscultation, Normal air movement Cardiovascular: Regular rate, No murmurs Abdomen: Bowel Sounds Present, Soft, Non Tender Extremities: No edema, Capillary Refill Less than 3 Seconds Skin: No rashes, No breakdown Musculoskeletal: No Tenderness to Palpation of Joints or Extremities Neurological: Cranial nerves II-XII grossly intact Psych/Mental Status: Normal Affect, Appropriate Vital Signs Temp Pulse Resp BP Pulse Ox 37.1 C 91 16 98/50 L 96 10/11/17 11:06 10/11/17 11:06 10/11/17 11:06 10/11/17 11:06 10/11/17 11:06 Oxygen Delivery Method Room Air Weight: 57.1 kg Body Mass Index (BMI) 24.5 Orthostatic Vital Signs Start: 10/10/17 10:27 Freq: Status: Active Protocol: Activity Type Activity Date Activity User E-Sign Co-Sign Detail Recorded Client Recorded Date Recorded By Document 10/10/17 10:27 DARIANA [id number] 10/10/17 10:28 DARIANA 10/10/17 10:27 Orthostatic Vitals Standing -Blood Pressure (90/60-120/80) 111/80 -Extremity Use Right Arm -Pulse Rate (60-100) 101 H Sitting -Blood Pressure (90/60-120/80) 113/75 -Extremity Use Right Arm -Pulse Rate (60-100) 86 Lying -Blood Pressure (90/60-120/80) 106/61 -Extremity Use Right Arm -Pulse Rate (60-100) 79 Intake and Output for Last 24 Hours 10/09/17 10/10/17 10/11/17 23:59 23:59 23:59 Intake Total 2117 / 2117 1211 / 1211 600 / 600 Output Total 1250 / 1250 450 / 450 1000 / 1000 Balance 867 / 867 761 / 761 -400 / -400 Current Medications Generic Name Dose Route Start Last Admin Trade Name Freq PRN Reason Stop Dose Admin Acetaminophen 650 mg 10/08/17 15:55 10/11/17 05:34 Tylenol PO 650 mg Q6H PRN PRN Administration PAIN Docusate Sodium 100 mg 10/06/17 22:00 10/11/17 08:42 Colace PO Not Given BID ALEXIS Hydromorphone HCl 2 mg 10/07/17 19:38 10/11/17 12:51 Dilaudid PO 2 mg Q12H PRN PRN Administration SEVERE PAIN (6-10/10) Clindamycin Phosphate 600 mg in 50 mls @ 100 mls/hr 10/06/17 22:00 10/11/17 05:35 Cleocin IV 100 mls/hr Q8 ALEXIS Administration Meclizine HCl 25 mg 10/08/17 15:33 10/11/17 10:55 Antivert PO 25 mg 4X/DAY PRN PRN Administration DIZZINESS Nutritional Formula 1 packet 10/07/17 08:00 10/11/17 08:42 Osmar - [place] Flavor PO 1 packet BIDCM ALEXIS Administration Ondansetron HCl 4 mg 10/06/17 19:42 10/10/17 02:13 Zofran IV 4 mg Q6H PRN PRN Administration NAUSEA Promethazine HCl 25 mg 10/06/17 19:42 10/11/17 05:34 Phenergan PO 25 mg Q4H PRN PRN Administration NAUSEA/VOMITING Sodium Chloride 5 - 30 ml 10/06/17 20:25 10/10/17 21:59 IV 10 ml UD PRN Administration SALINE FLUSH Topiramate 50 mg 10/10/17 22:00 10/10/17 21:59 Topamax PO 50 mg QHS ALEXIS Administration Valacyclovir HCl 500 mg 10/07/17 23:30 10/10/17 17:12 Valtrex PO 500 mg DAILY PRN PRN Administration COLD SORES mri brain normal (reviewed) mra head and neck normal (reviewed) Assessment/Plan BPPV, +/- worse with pain meds, also has migraine history. current headache 04/14 discussed with pt, for now she opts to continue dilaudid encourage physical activity limit daytime use of sedative agents as feasible continue topamax elavil 50mg now and qhs
--- NOTE | 2017-10-11 13:39 | CON.PCM_ITS ---
Reason for Consult Date of Consultation: 10/11/17 Reason for Consultation: VERTIGO History of Present Illness: The patient is a 27 year old RIGHT HANDED white female with history of migraine , on topamax and relpax at home, underwent occipital bone mass excision which was uncomplicated 10/06/17, reports since awakening she has experienced the whole world spinning now somewhat improved. able to ambulate with therapy today , felt poorly but reports this is improved, yesterday unable to ambulate. denies other neurologic symptoms. currently on multiple analgesics. healthy otherwise. 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 may be influenced by depo provera shot. Allergies oxycodone [From Percocet] Adverse Reaction (Verified 09/29/17 15:05) Nausea Home Medications: Ambulatory Orders Medication Instructions Recorded topiramate 25 mg tablet 50 mg PO QHS 09/20/17 valacyclovir 500 mg tablet 500 mg PO QDAY PRN 09/20/17 Acetaminophen/Diphenhydramine 1 each PO QHS PRN 10/05/17 [Tylenol Pm Ex-Strength Caplet] Fluconazole 150 mg PO .COMPLEX 10/05/17 Nystatin/Triamcin 1 applic TOPICAL TID PRN 10/05/17 [Nystatin-Triamcinolone Ointm] Clindamycin HCl [Cleocin] 300 mg PO TID #15 cap 10/06/17 Diazepam [Valium] 5 mg PO 4X/DAY PRN PRN 5 Days #20 10/06/17 tab HydromorphONE [Dilaudid] 2 - 4 mg PO 4X/DAY PRN PRN 5 Days 10/06/17 #40 tab Docusate Sodium [Colace] 100 mg PO BID #60 cap 10/07/17 Fentanyl [Duragesic] 12 mcg TRANSDERM. Q3D 15 Days #5 10/07/17 patch Gabapentin [Neurontin] 100 mg PO BIDCM 30 Days #60 cap 10/07/17 ProMETHAzine [Phenergan] 25 mg PO 4X/DAY PRN PRN #30 tab 10/07/17 Lives: Spouse/ Significant Other Smoking Status: Never smoker Tobacco Use: Non-smoker Alcohol: None Drugs: None Review of Systems Constitutional: Denies: Chills, Fever, Weight Change Eyes: Reports: Blurred vision HEENT: Denies: Head Aches, Sinus Congestion, Sinus Drainage Cardiovascular: Denies: Chest Pain, Palpitations Respiratory: Denies: Cough, Shortness of breath at rest, Sputum production Gastrointestinal: Denies: Abdominal Pain, Nausea, Vomiting Genitourinary: Denies: Dysuria Musculoskeletal: Denies: Joint Pain, Joint Tenderness Skin: Denies: Rash, Wounds Neurological: Denies: Numbness, Tingling, Focal weakness Psychiatric: Denies: Anxiety, Depression, Homicidal Ideations, Suicidal Ideations Hematologic/ Lymphatic: Denies: Easy Bruising, Easy Bleeding - Physical Exam General: Alert, Oriented x3, Cooperative HEENT: Atraumatic, PERRLA, EOMI, Normocephalic Neck: Supple, No JVD, Negative Carotid Bruits Lungs: Clear to auscultation, Normal air movement Cardiovascular: Regular rate, No murmurs Abdomen: Bowel Sounds Present, Soft, Non Tender Extremities: No edema, Capillary Refill Less than 3 Seconds Skin: No rashes, No breakdown Musculoskeletal: No Tenderness to Palpation of Joints or Extremities Neurological: Cranial nerves II-XII grossly intact Psych/Mental Status: Normal Affect, Appropriate Vital Signs Temp Pulse Resp BP Pulse Ox 37.1 C 91 16 98/50 L 96 10/11/17 11:06 10/11/17 11:06 10/11/17 11:06 10/11/17 11:06 10/11/17 11:06 Oxygen Delivery Method Room Air Weight: 57.1 kg Body Mass Index (BMI) 24.5 Orthostatic Vital Signs Start: 10/10/17 10:27 Freq: Status: Active Protocol: Activity Type Activity Date Activity User E-Sign Co-Sign Detail Recorded Client Recorded Date Recorded By Document 10/10/17 10:27 DARIANA [id number] 10/10/17 10:28 DARIANA 10/10/17 10:27 Orthostatic Vitals Standing -Blood Pressure (90/60-120/80) 111/80 -Extremity Use Right Arm -Pulse Rate (60-100) 101 H Sitting -Blood Pressure (90/60-120/80) 113/75 -Extremity Use Right Arm -Pulse Rate (60-100) 86 Lying -Blood Pressure (90/60-120/80) 106/61 -Extremity Use Right Arm -Pulse Rate (60-100) 79 Intake and Output for Last 24 Hours 10/09/17 10/10/17 10/11/17 23:59 23:59 23:59 Intake Total 2117 / 2117 1211 / 1211 600 / 600 Output Total 1250 / 1250 450 / 450 1000 / 1000 Balance 867 / 867 761 / 761 -400 / -400 Current Medications Generic Name Dose Route Start Last Admin Trade Name Freq PRN Reason Stop Dose Admin Acetaminophen 650 mg 10/08/17 15:55 10/11/17 05:34 Tylenol PO 650 mg Q6H PRN PRN Administration PAIN Docusate Sodium 100 mg 10/06/17 22:00 10/11/17 08:42 Colace PO Not Given BID ALEXIS Hydromorphone HCl 2 mg 10/07/17 19:38 10/11/17 12:51 Dilaudid PO 2 mg Q12H PRN PRN Administration SEVERE PAIN (6-10/10) Clindamycin Phosphate 600 mg in 50 mls @ 100 mls/hr 10/06/17 22:00 10/11/17 05:35 Cleocin IV 100 mls/hr Q8 ALEXIS Administration Meclizine HCl 25 mg 10/08/17 15:33 10/11/17 10:55 Antivert PO 25 mg 4X/DAY PRN PRN Administration DIZZINESS Nutritional Formula 1 packet 10/07/17 08:00 10/11/17 08:42 Osmar - [place] Flavor PO 1 packet BIDCM ALEXIS Administration Ondansetron HCl 4 mg 10/06/17 19:42 10/10/17 02:13 Zofran IV 4 mg Q6H PRN PRN Administration NAUSEA Promethazine HCl 25 mg 10/06/17 19:42 10/11/17 05:34 Phenergan PO 25 mg Q4H PRN PRN Administration NAUSEA/VOMITING Sodium Chloride 5 - 30 ml 10/06/17 20:25 10/10/17 21:59 IV 10 ml UD PRN Administration SALINE FLUSH Topiramate 50 mg 10/10/17 22:00 10/10/17 21:59 Topamax PO 50 mg QHS ALEXIS Administration Valacyclovir HCl 500 mg 10/07/17 23:30 10/10/17 17:12 Valtrex PO 500 mg DAILY PRN PRN Administration COLD SORES mri brain normal (reviewed) mra head and neck normal (reviewed) Assessment/Plan BPPV, +/- worse with pain meds, also has migraine history. current headache discussed with pt, for now she opts to continue dilaudid encourage physical activity limit daytime use of sedative agents as feasible continue topamax elavil 50mg now and qhs
[2017-10-11] MEDS: Amitriptyline 25 MG Tablet 50 MG PO (14:19)
[2017-10-11] MEDS: 0.9% NaCl Peripheral Flush Adult/Peds IV (15:02)
--- NOTE | 2017-10-11 16:33 | PCM.PN.HOSP ---
Subjective: Patient was seen and examined. She still feels unsteady and the room spinning. Denies any nausea or vomiting or headaches. No fever or chills. Objective: Physical Exam: General: Alert, Oriented x3, Cooperative, - - Looks slightly anxious, not pale, not jaundice HEENT: Atraumatic, PERRLA, EOMI, Normocephalic Oral: Moist Mucosa Neck: Supple Lungs: Clear to auscultation, Normal air movement Cardiovascular: Regular rate, Regular Rhythm, Normal S1, Normal S2, No murmurs Abdomen: Bowel Sounds Present, Soft, Non Tender, Non-Distended, No Hepato-splenomegaly Extremities: No edema Skin: No rashes, No breakdown Musculoskeletal: No Tenderness to Palpation of Joints or Extremities Lymphatic: No Cervical, Supraclavicular, or Inguinal Adenopathy Neurological: Cranial nerves II-XII grossly intact, Neuro grossly intact Psych/Mental Status: Normal Affect, Appropriate Vitals/I&O's: Vital Signs Temp Pulse Resp BP Pulse Ox 98.7 F 91 16 98/50 L 96 10/11/17 11:06 10/11/17 11:06 10/11/17 11:06 10/11/17 11:06 10/11/17 11:06 Oxygen Delivery Method Room Air Weight: 57.1 kg Body Mass Index (BMI) 24.5 Orthostatic Vital Signs Start: 10/10/17 10:27 Freq: Status: Active Protocol: Activity Type Activity Date Activity User E-Sign Co-Sign Detail Recorded Client Recorded Date Recorded By Document 10/10/17 10:27 [id number] 10/10/17 10:28 AA 10/10/17 10:27 Orthostatic Vitals Standing -Blood Pressure (90/60-120/80) 111/80 -Extremity Use Right Arm -Pulse Rate (60-100) 101 H Sitting -Blood Pressure (90/60-120/80) 113/75 -Extremity Use Right Arm -Pulse Rate (60-100) 86 Lying -Blood Pressure (90/60-120/80) 106/61 -Extremity Use Right Arm -Pulse Rate (60-100) 79 Intake and Output for Last 24 Hours 10/09/17 10/10/17 10/11/17 23:59 23:59 23:59 Intake Total 2117 / 2117 1211 / 1211 1100 / 1100 Output Total 1250 / 1250 450 / 450 1750 / 1750 Balance 867 / 867 761 / 761 -650 / -650 Current Medications Acetaminophen (Tylenol) 650 mg PO Q6H PRN PRN PRN Reason: PAIN Last Admin: 10/11/17 05:34 Dose: 650 mg Docusate Sodium (Colace) 100 mg PO BID [facility] Last Admin: 10/11/17 08:42 Dose: Not Given Hydromorphone HCl (Dilaudid) 2 mg PO Q12H PRN PRN PRN Reason: SEVERE PAIN (6-10/10) Last Admin: 10/11/17 12:51 Dose: 2 mg Clindamycin Phosphate (Cleocin) 600 mg in 50 mls @ 100 mls/hr IV Q8 [facility] Last Admin: 10/11/17 15:02 Dose: 100 mls/hr Meclizine HCl (Antivert) 25 mg PO 4X/DAY PRN PRN PRN Reason: DIZZINESS Last Admin: 10/11/17 10:55 Dose: 25 mg Nutritional Formula (Osmar - [place] Fl[facility]) [facility] Last Admin: 10/11/17 08:42 Dose: 1 packet Ondansetron HCl (Zofran) 4 mg IV Q6H PRN PRN PRN Reason: NAUSEA Last Admin: 10/10/17 02:13 Dose: 4 mg Promethazine HCl (Phenergan) 25 mg PO Q4H PRN PRN PRN Reason: NAUSEA/VOMITING Last Admin: 10/11/17 05:34 Dose: 25 mg Sodium Chloride () 5 - 30 ml IV UD PRN PRN Reason: SALINE FLUSH Last Admin: 10/11/17 15:02 Dose: 10 ml Topiramate (Topamax) 50 mg PO QHS [facility] Last Admin: 10/10/17 21:59 Dose: 50 mg Valacyclovir HCl (Valtrex) 500 mg PO DAILY PRN PRN PRN Reason: COLD SORES Last Admin: 10/10/17 17:12 Dose: 500 mg Assessment/Plan 27-year-old with past medical history of migraines who is status post-op day #4 excision, recurrent painful submuscular bone lesion in the right occipital region who complains of persistent dizziness. 1. BPPV/acute labyrinthitis, on antivert, seen by ENT, will be followed up in the outpatient, will get outpatient vestibular therapy 2. Chronic migraines, on Topamax 3. Postop day #4 status post excision biopsy, on antibiotics by primary, pain is fairly controlled on Dilaudid PO, history of adverse effects with oxycodone 4. DVT prophylaxis with early ambulation Code Visit Inpatient E&M: 49151 Subs Hosp L2
--- NOTE | 2017-10-11 16:41 | PN_ITS ---
Subjective: Patient was seen and examined. She still feels unsteady and the room spinning. Denies any nausea or vomiting or headaches. No fever or chills. Objective: Physical Exam: General: Alert, Oriented x3, Cooperative, - - Looks slightly anxious, not pale, not jaundice HEENT: Atraumatic, PERRLA, EOMI, Normocephalic Oral: Moist Mucosa Neck: Supple Lungs: Clear to auscultation, Normal air movement Cardiovascular: Regular rate, Regular Rhythm, Normal S1, Normal S2, No murmurs Abdomen: Bowel Sounds Present, Soft, Non Tender, Non-Distended, No Hepato- splenomegaly Extremities: No edema Skin: No rashes, No breakdown Musculoskeletal: No Tenderness to Palpation of Joints or Extremities Lymphatic: No Cervical, Supraclavicular, or Inguinal Adenopathy Neurological: Cranial nerves II-XII grossly intact, Neuro grossly intact Psych/Mental Status: Normal Affect, Appropriate Vitals/I&O's: Vital Signs Temp Pulse Resp BP Pulse Ox 98.7 F 91 16 98/50 L 96 10/11/17 11:06 10/11/17 11:06 10/11/17 11:06 10/11/17 11:06 10/11/17 11:06 Oxygen Delivery Method Room Air Weight: 57.1 kg Body Mass Index (BMI) 24.5 Orthostatic Vital Signs Start: 10/10/17 10:27 Freq: Status: Active Protocol: Activity Type Activity Date Activity User E-Sign Co-Sign Detail Recorded Client Recorded Date Recorded By Document 10/10/17 10:27 [id number] 10/10/17 10:28 AA 10/10/17 10:27 Orthostatic Vitals Standing -Blood Pressure (90/60-120/80) 111/80 -Extremity Use Right Arm -Pulse Rate (60-100) 101 H Sitting -Blood Pressure (90/60-120/80) 113/75 -Extremity Use Right Arm -Pulse Rate (60-100) 86 Lying -Blood Pressure (90/60-120/80) 106/61 -Extremity Use Right Arm -Pulse Rate (60-100) 79 Intake and Output for Last 24 Hours 10/09/17 10/10/17 10/11/17 23:59 23:59 23:59 Intake Total 2117 / 2117 1211 / 1211 1100 / 1100 Output Total 1250 / 1250 450 / 450 1750 / 1750 Balance 867 / 867 761 / 761 -650 / -650 Current Medications Acetaminophen (Tylenol) 650 mg PO Q6H PRN PRN PRN Reason: PAIN Last Admin: 10/11/17 05:34 Dose: 650 mg Docusate Sodium (Colace) 100 mg PO BID [facility] Last Admin: 10/11/17 08:42 Dose: Not Given Hydromorphone HCl (Dilaudid) 2 mg PO Q12H PRN PRN PRN Reason: SEVERE PAIN (6-10/10) Last Admin: 10/11/17 12:51 Dose: 2 mg Clindamycin Phosphate (Cleocin) 600 mg in 50 mls @ 100 mls/hr IV Q8 [facility] Last Admin: 10/11/17 15:02 Dose: 100 mls/hr Meclizine HCl (Antivert) 25 mg PO 4X/DAY PRN PRN PRN Reason: DIZZINESS Last Admin: 10/11/17 10:55 Dose: 25 mg Nutritional Formula ([facility]smar - [place] Flavor) [facility] Last Admin: 10/11/17 08:42 Dose: 1 packet Ondansetron HCl (Zofran) 4 mg IV Q6H PRN PRN PRN Reason: NAUSEA Last Admin: 10/10/17 02:13 Dose: 4 mg Promethazine HCl (Phenergan) 25 mg PO Q4H PRN PRN PRN Reason: NAUSEA/VOMITING Last Admin: 10/11/17 05:34 Dose: 25 mg Sodium Chloride () 5 - 30 ml IV UD PRN PRN Reason: SALINE FLUSH Last Admin: 10/11/17 15:02 Dose: 10 ml Topiramate (Topamax) 50 mg PO QHS [facility] Last Admin: 10/10/17 21:59 Dose: 50 mg Valacyclovir HCl (Valtrex) 500 mg PO DAILY PRN PRN PRN Reason: COLD SORES Last Admin: 10/10/17 17:12 Dose: 500 mg Assessment/Plan 27-year-old with past medical history of migraines who is status post-op day #4 excision, recurrent painful submuscular bone lesion in the right occipital region who complains of persistent dizziness. 1. BPPV/acute labyrinthitis, on antivert, seen by ENT, will be followed up in the outpatient, will get outpatient vestibular therapy 2. Chronic migraines, on Topamax 3. Postop day #4 status post excision biopsy, on antibiotics by primary, pain is fairly controlled on Dilaudid PO, history of adverse effects with oxycodone 4. DVT prophylaxis with early ambulation Code Visit Inpatient E&M: 55536 Subs Hosp L2
[2017-10-11 17:00] VITALS: BP 103/73; PULSE 75; RESP 16; TEMP 36.8; O2SAT 100
--- NOTE | 2017-10-11 17:42 | PCM.PN.SRG ---
Subjective: Postop #5 Patient is resting comfortably. Slept well after taking the Elavil. She feels a little better with ambulation with less dizziness. She is more steady when ambulating. - Physical Exam General: Alert, Oriented x3 HEENT: PERRLA, EOMI Neck: Supple Lungs: Clear to auscultation Cardiovascular: Regular rate, Regular Rhythm Skin: Incision - right occipital scalp incision dry and intact. No clinical evidence of hematoma. Has incisional pain but she feels it is improving each day. The pain extending inferiorly onto the neck has also decreased as well. Neurological: Cranial nerves II-XII grossly intact Psych/Mental Status: Normal Affect, Appropriate Vital Signs Temp Pulse Resp BP Pulse Ox 98.2 F 75 16 103/73 100 10/11/17 17:00 10/11/17 17:00 10/11/17 17:00 10/11/17 17:00 10/11/17 17:00 Oxygen Delivery Method Room Air Weight: 125 lb 14.143 oz Body Mass Index (BMI) 24.5 Orthostatic Vital Signs Start: 10/10/17 10:27 Freq: Status: Active Protocol: Activity Type Activity Date Activity User E-Sign Co-Sign Detail Recorded Client Recorded Date Recorded By Document 10/10/17 10:27 AA [id number] 10/10/17 10:28 AA 10/10/17 10:27 Orthostatic Vitals Standing -Blood Pressure (90/60-120/80) 111/80 -Extremity Use Right Arm -Pulse Rate (60-100) 101 H Sitting -Blood Pressure (90/60-120/80) 113/75 -Extremity Use Right Arm -Pulse Rate (60-100) 86 Lying -Blood Pressure (90/60-120/80) 106/61 -Extremity Use Right Arm -Pulse Rate (60-100) 79 Intake and Output for Last 24 Hours 10/09/17 10/10/17 10/11/17 23:59 23:59 23:59 Intake Total 2117 / 2117 1211 / 1211 1100 / 1100 Output Total 1250 / 1250 450 / 450 1750 / 1750 Balance 867 / 867 761 / 761 -650 / -650 Pathology - pending. Assessment/Plan 1.5 cm recurrent painful submuscular bone lesion right occipital scalp. 2. Headaches. 3. 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 4. Postop dizziness. 5. Right labyrinthitis. Patient complains of incisional pain and spasm and burning nerve pain which has improved with the Neurontin. She also has headache. Continue Neurontin. She has residual dizziness that is better with ambulation. Neurology saw her and recommended decreasing the pain meds and encouraging physical activity and limiting daytime use of sedative agents as feasible. She should continue the Topamax for the headaches and she was started on Elavil. She rested more than usual with the lights off after taking the Elavil and felt better. She will be encouraged to take it easy at home and rest for continued improvement of her dizziness. She states she has never been evaluated for her headaches. I told to followup with Neurology in a month so they can continue to monitor her headaches. Audiogram and vestibular rehab will be arranged by ENT as an outpatient. With PT, she is more steady on her feet and the dizziness is better. Will continue the Antivert because she thinks it is helping the dizziness a little bit. She is ok for discharge. Followup office one week. Apply antibiotic ointment to suture line daily. Wrote scripts for Antivert (60 tabs) and 4 refills and Elavil to help with headaches (60 tabs) and 2 refills.
--- NOTE | 2017-10-11 17:49 | PCM.DC.SUM ---
Discharge Date and Diagnosis Date of Admission: 10/06/17 Date of Discharge: 10/11/17 - Primary Discharge Diagnosis Submuscular bony lesion right occipital scalp Dizziness Right labyrinthitis - Secondary Discharge Diagnosis Chronic Problems Headache Subacute on chronic vaginitis Hospital Course and Treatment Imaging Results: Brain CT 10/08/17 10:10 IMPRESSION: No acute intracranial process. Electronically Signed: Ross Oconnor MD at 11:43 EST Tel , Service support , Brain MRI 10/10/17 10:59 IMPRESSION: Normal unenhanced MRI of the brain. Electronically Signed: Elio Bronson MD at 13:49 EST Tel , Service support , Head MRA 10/10/17 10:59 IMPRESSION: Normal MRA of the head Electronically Signed: Elio Bronson MD at 13:14 EST Tel , Service support , Neck MRA 10/10/17 10:59 IMPRESSION: Normal bilateral cervical carotid and vertebral arteries. Electronically Signed: Elio Bronson MD at 13:16 EST Tel , Service support , CONSULTATIONS Dr. Howard from [facility]. Dr. Adams from ENT. Dr. Santoro from Neurology. 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 Procedures: None Summary of Care Provided: The patient is a 27 year old woman who presented with a recurrent soft tissue mass on her right occipital scalp area that has increased in size over the last few months. There is some discomfort when she bumps it. She denies any trauma. She denies any fever. She denies any recent infection. She initially had a nodular lesion removed from this area in 08/[address] Hughes. The Pathology was negative for carcinoma according to the patient. She states she had headaches that initially improved after that excision in 08/20, and they have since returned. She had a recent MRI which showed this nodular mass in the right occipital area and no intracranial component. 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 Postoperatively the patient developed dizziness. Initially the pain medications were reduced. When it persisted, A CT Brain was obtained which was negative. Labs revealed no electrolyte abnormalities. She also had some burning nerve pain in the area of the surgery and was started on Neurontin with some relief. PT evaluated her and felt that with her dizziness, she was too unsteady on her feet and did not recommend her going home until she was more steady on her feet. She was started on Antivert. Dr. Howard from the [facility] was consulted to assist with medical management. She recommended an ENT consult and a Neurology consult. ENT suggested an audiogram as an outpatient to evaluate for possible labyrinthitis along with vestibular rehab for the dizziness. MRI Brain was obtained which was normal. MRA Head was obtained which was normal. MRA Neck was obtained which was normal. Neurology felt the vertigo was worse with pain meds. Has migraine history which is exacerbated by the vertigo. He recommended getting off the pain meds as soon as feasible. He encourage physical activity and also to limit daytime use of sedative agents as feasible. She is on Topamax and will continue that. She was also started on Elavil. With the Elavil she was able to rest more which improved the dizziness. She was more steady on her feet with ambulation. She was discharged home on the 5th postop day. Since initially this surgery was scheduled as an outpatient, the mother already got the scripts filled. These included Fentanyl patch, Dilaudid, Valium, Neurontin. Recommended to the patient that this far out from surgery, she shouldn't need much and to take them sparingly especially if they aggravate her dizziness. She voiced understanding. Scripts were written for Antivert and Elavil. She will followup with ENT in 1-2 weeks for the audiogram and the vestibular rehab to further evaluate her labyrinitis and vertigo. She will followup with Neurology in 4 weeks to further evaluate her headaches. She will followup with her PCP in 4-6 weeks to evaluate these postop treatments. Discharge Diet: No Restrictions Discharge Activity: May not drive while taking narcotic pain medications., May Shower - in two days., - - keep head elevated. no heavy lifting. May shower in (days): 2 May resume sexual activity in: No Restrictions Weight Bearing Status: Weight bearing as tolerated Keep extremity elevated above heart level: - - elevate head. Call your doctor if your incision/area has: Continuous Slow Oozing, Sudden Increased Bleeding, Increased Pain/ Swelling, Increased Redness, Foul Smelling Discharge, Swelling at the incision site Call your doctor if you observe: Fever of 101 or Higher, Shortness of breath, Chest pain, Calf discomfort, Uncontrolled pain Suture Line Care: - - antibiotic ointment to suture line daily. Cleanse incision/area with: - - may get incision wet in the shower in two days. Home Medications: Medications to take at Discharge topiramate 25 mg tablet 50 mg PO QHS 09/20/17 valacyclovir 500 mg tablet 500 mg PO QDAY PRN 09/20/17 Acetaminophen/Diphenhydramine [Tylenol Pm Ex-Strength Caplet] 1 each PO QHS PRN 10/05/17 Fluconazole 150 mg PO .COMPLEX 10/05/17 Nystatin/Triamcin [Nystatin-Triamcinolone Ointm] 1 applic TOPICAL TID PRN 10/05/17 Clindamycin HCl [Cleocin] 300 mg PO TID #15 cap 10/06/17 Diazepam [Valium] 5 mg PO 4X/DAY PRN PRN 5 Days #20 tab 10/06/17 HydromorphONE [Dilaudid] 2 - 4 mg PO 4X/DAY PRN PRN 5 Days #40 tab 10/06/17 Docusate Sodium [Colace] 100 mg PO BID #60 cap 10/07/17 Fentanyl [Duragesic] 12 mcg TRANSDERM. Q3D 15 Days #5 patch 10/07/17 Gabapentin [Neurontin] 100 mg PO BIDCM 30 Days #60 cap 10/07/17 ProMETHAzine [Phenergan] 25 mg PO 4X/DAY PRN PRN #30 tab 10/07/17 Amitriptyline HCl [Elavil] 50 mg PO QHS #60 tab 10/11/17 Meclizine HCl [Antivert] 25 mg PO 4X/DAY PRN PRN #60 tab 10/11/17 Following Prescrptions Were Given to Patient: Amitriptyline HCl [Elavil] 50 mg PO QHS #60 tab Diazepam [Valium] 5 mg PO 4X/DAY PRN PRN 5 Days #20 tab PRN Reason: Spasms Fentanyl [Duragesic] 12 mcg TRANSDERM. Q3D 15 Days #5 patch HydromorphONE [Dilaudid] 2 - 4 mg PO 4X/DAY PRN PRN 5 Days #40 tab PRN Reason: Pain Meclizine HCl [Antivert] 25 mg PO 4X/DAY PRN PRN #60 tab PRN Reason: Dizziness ProMETHAzine [Phenergan] 25 mg PO 4X/DAY PRN PRN #30 tab PRN Reason: Nausea/Vomiting Docusate Sodium [Colace] 100 mg PO BID #60 cap Gabapentin [Neurontin] 100 mg PO BIDCM 30 Days #60 cap Clindamycin HCl [Cleocin] 300 mg PO TID #15 cap Primary Care Physician: Naheed Kam DO [Primary Care Provider] - Please follow up with your Primary Care Physician in: 4-6 weeks to evaluate postop treatments. Please Follow Up With: Elia Perrin MD When: one week. call [phone] for appt. Please Follow Up With: Jorge Adams MD - [phone]. When: 1-2 wks for audiogram and vestibular rehab to eval labyrinitis and vertigo. Please Follow Up With: Amos Santoro MD - [phone]. When: 4 weeks to evaluate headaches. Disposition: Home Minutes spent on discharge:: 35 Patient Condition:: Stable Meaningful Use Info Meaningful Use Diagnoses (Choose all that apply): None applicable
[2017-10-11 18:30] VITALS: BP 103/73; PULSE 75; RESP 16; TEMP 36.8; O2SAT 100
== END 2017-10-11 18:47 | disposition home or self-care (01) ==
LOC: SDC 10-09 12:07
PROVIDERS: Anesthesiology; Admitting Provider Surgery; Family Provider Family Medicine; PCP Family Medicine; Visit Provider Surgery
PROC: (CPT 11422; principal; 2017-10-06 10:40)
DX: D16.4 Benign neoplasm of bones of skull and face (principal); G43.909 Migraine, unspecified, not intractable, without status migrainosus; H91.91 Unspecified hearing loss, right ear; H83.01 Labyrinthitis, right ear; N76.1 Subacute and chronic vaginitis
CPT/HCPCS: 00300; 11422; 13121; 36415; 70470; 70544; 70547; 70551; 80048; 81025; 84134; 85027; 88304; 88305; 88311; 96365; 96366; 96375; 96376; 97116; 97162; 97530; 99218; J7120; Q9967; A4216; G0378; G0379; J2405

== ENCOUNTER → 2018-01-11 16:10 | Outpatient (CLI) | payer OTHER, SELFPAY | PROVIDERS: Family Provider Family Medicine; PCP Family Medicine; Visit Provider Nurse Practitioner Women's Health | DX: N76.0 Acute vaginitis (principal) | CPT/HCPCS: 87070; 87205 ==

== ENCOUNTER → 2018-02-20 08:59 | Outpatient (CLI) | payer OTHER, SELFPAY ==
[2018-02-20 10:00] LABS: hCG Titer Quant., Serum 946 mIU/mL (<9 non-preg)
== END ==
PROVIDERS: Family Provider Family Medicine; PCP Family Medicine; Visit Provider Obstetrics & Gynecology
DX: Z33.2 Encounter for elective termination of pregnancy (principal)
CPT/HCPCS: 36415; 84702

== ENCOUNTER → 2018-02-22 07:24 | Outpatient (CLI) | payer OTHER, SELFPAY ==
[2018-02-22 08:34] LABS: hCG Titer Quant., Serum 776 mIU/mL (<9 non-preg)
== END ==
PROVIDERS: Family Provider Family Medicine; PCP Family Medicine; Visit Provider Obstetrics & Gynecology
DX: Z33.2 Encounter for elective termination of pregnancy (principal)
CPT/HCPCS: 36415; 84702

== ENCOUNTER → 2018-03-01 07:28 | Outpatient (CLI) | payer OTHER, SELFPAY ==
[2018-03-01 09:54] LABS: hCG Titer Quant., Serum 1066 mIU/mL (<9 non-preg)
== END ==
PROVIDERS: Family Provider Family Medicine; PCP Family Medicine; Visit Provider Obstetrics & Gynecology
DX: O02.1 Missed abortion (principal)
CPT/HCPCS: 36415; 84702

== ENCOUNTER → 2018-03-03 07:25 | Outpatient (CLI) | payer OTHER, SELFPAY ==
[2018-03-03 09:11] LABS: hCG Titer Quant., Serum 1216 mIU/mL (<9 non-preg)
== END ==
PROVIDERS: Family Provider Family Medicine; PCP Family Medicine; Visit Provider Obstetrics & Gynecology
DX: O03.4 Incomplete spontaneous abortion without complication (principal)
CPT/HCPCS: 36415; 84702

== ENCOUNTER 2018-03-09 08:30 | Day surgery (SDC) | payer OTHER, SELFPAY ==
--- NOTE | 2018-03-07 17:11 | PCM.HPOB.BLA ---
- Problem List (1) Retained products of conception Status: Acute History and Physical Date of Admission: 03/09/18 Allergies oxycodone [From Percocet] Adverse Reaction (Verified 03/06/18 14:14) Nausea Medications kazhycz-eflfyafzxtgin-bqpappki 250 mg-250 mg-65 mg tablet 1 tab PO ONCE 01/11/18 [History Confirmed 03/06/18] norelgestromin 150 mcg-e.estradiol 35 mcg/24 hr weekly transderm patch 1 patch TRANSDERMAL Q7D #3 patch 02/20/18 [Rx Confirmed 03/06/18] doxycycline hyclate 100 mg capsule 100 mg PO BID #20 cap 03/06/18 [Rx Confirmed 03/06/18] Is last menstrual period known: No Post menopausal: No Patient : No : No PFSH Medical History Anxiety and depression (Acute) Frequent headaches (Acute) Mass of head (Acute) Urinary tract infection (Acute) Yeast infection (Acute) Surgical History lumpectomy back of head (Resolved) Family History Father Diabetes Hypertension Mother Hypertension Social History Smoking Status: Never smoker what type of physical activity do you participate in: other details: cardio frequency: 5-6 times per week HPI DISCUSS HCG RESULTS: Details: SCHUYLER MCKEON is a 27 year old who presents for follow up after elective medical 6 weeks ago with persistent HCGs that are now rising. she has had bleeding on and off though not having bleeding now. she co lower pelvic cramping but no fevers. Pregancy History 1 Elective abortions 1 Hx Para Spontaneous abortions Hx # Term Pregnancies Ectopic pregnancies Hx # Pregnancies Multiple births # of living children ROS Const Constitutional: Denies poor appetite, headache(s), fever(s), increased appetite, weight gain, weight loss or fatigue Cardio Card: Denies chest pain Resp Resp: Denies dyspnea or cough GI GI: Reports as per HPI, nausea and abdominal pain (intermittent lower pelvic); denies vomiting or constipation Details: bedside ultrasound shows heterogenoua 8 mm endometrial lining retroverted uterus, tender, no adnexal abnormalities no free lfuid, normal cervix. : Reports as per HPI; denies urinary urgency, vaginal discharge, urinary frequency, vaginal itching, vaginal odor, vaginal dryness, urinary incontinence, urinary hesitancy, difficulty urinating, painful urination or nipple discharge Skin Skin/Breast: Denies breast lump, breast pain, breast skin changes, nipple discharge or change in hair Exam Const General: cooperative, healthy appearing, comfortable, no acute distress, well developed Nutritional Appearance: average body habitus Orientation: alert HENMT Head: normal to inspection, normocephalic Neck Neck: normal visual inspection, trachea midline Thyroid: thyroid normal Resp Effort & Inspection: normal respiratory effort GI Inspection: normal to inspection, non-distended Palpation: soft, no hepatosplenomegaly General: bladder normal to palpation External Female Exam: normal external appearance, normal appearance of the urethra Urethra: normal appearance of the urethra, normal palpation, no discharge Speculum Exam - Vagina: normal appearance of the vagina, normal vaginal discharge Speculum Exam - Cervix: normal appearance of the cervix, nontender Bimanual Exam- Vagina & Uterus: bladder normal to palpation, No cervical tenderness, normal bimanual exam, uterine size normal, uterine shape normal, uterine mobility normal, uterine consistency normal, normal cervical palpation, uterus tender Bimanual Exam- Adnexa, other: normal adnexae, adnexae mobile, no adnexal masses, pelvic support normal Pelvic Support: normal Skin General: no rashes or lesions noted Assessment & Plan Problems 1. Incomplete O03.4 Plan recommend suction d and c for retained POC> bedside ultrasound done and 8 mm lining seen. discussed surgical risks including risks of anesthesia, infection, bleeding, injury to bowel, bladder or blood vessels, and patient wishes to proceed with surgery. Medications New: doxycycline hyclate 100 mg PO BID Coding Level of Care Code Off vis,est,level 4 Diagnoses Incomplete O03.4 UPDATE- I have seen the patient and performed any clinically relevant updates to the history and physical exam. Racheal Hartmann MD
[2018-03-09] VITALS (10 sets, daily range): BP systolic 88–114; BP diastolic 56–78; PULSE 57–67; RESP 16–18; TEMP 36.6–37; O2SAT 93–100; BMI 23.2
[2018-03-09 09:14] LABS: Hemoglobin 11.9 g/dl (12.0-15.0); Mean Corp Hgb Conc 32.2 g/gl (32-36); Mean Corpuscular Hgb 27.5 pg (27.0-32.0); Mean Corpuscular Volume 85.6 fL (81-99); Mean Platelet Vol. 9.3 fl (6.2-12.0); Platelet Count 232 K/mm3 (150-450); RBC Distribution Width CV 13.3 % (11.6-14.6); RBC Distribution Width SD 41.2 fl (35.1-43.9); Red Blood Count 4.32 M/mm3 (4.2-5.4); White Blood Count 5.7 K/mm3 (4.4-11.0)
[2018-03-09 09:16] LABS: Scan Indicated on CBC? Y/N NO
[2018-03-09] MEDS: Doxycycline 100 MG CAPSULE PO (09:16)
--- NOTE | 2018-03-09 09:56 | PCM.OPRPT ---
Problem List (1) Retained products of conception Status: Acute Report of Operation Date of Procedure: 03/09/18 Pre-Operative Diagnosis: retained POC incomplete ab Post-Operative Diagnosis: same Surgery/Procedure Performed:: suction d and c Description of Surgical Findings:: 8 cm uterus Type of Anesthesia:: IV Sedation Special Medications: doxycycline Specimen's removed: POC Drains: none Estimated Blood Loss (mL): minimal Fluids Replaced: crystalloid Description of Procedure: Patient was taken to the operating room and placed under MAC local anesthesia. She was prepped and draped in the normal sterile fashion the dorsal lithotomy position. Bladder was drained of clear urine and anterior lip of the cervix was grasped and the uterus sounded to 8 cm. Cervix was progressively dilated to allow passage of a 8 mm suction curette. Progressive passes were made removing the retained products of conception without complication. Sharp curettage confirmed complete removal of the retained products. All instruments were removed from the vagina and excellent hemostasis was noted and the patient was taken to recovery in stable condition. Grafts/Implants Used: none - Complications none
--- NOTE | 2018-03-09 10:00 | POC_PTH ---
PATIENT: SCHUYLER DUKE [place] [facility] [place][id number] AGE/SX: 27/F ROOM: RE03/09/[address]: Dr. Racheal Hartmann MD : 1990 BED: DIS: 03/09/2018 SPEC #: [id number] RECD: 03/09/18 12:26 STATUS: SILVIA RACHEL #: [id number] BRENT: 03/09/18 10:[address]: Racheal Hartmann DEPT: SURGICAL PATHOLOGY RECD BY: Magen Ybarra ENTERED: 03/09/18 12:54 SP TYPE: PROD CONC OTHR DR: Dr. Naheed Kam, DO Tissues: Product of conception, NOS Procedures: Surgery Specimen Level IV HEADER OPERATION: Dilation and curettage, suction PRE-OP DIAGNOSIS: Incomplete retained products TISSUE SUBMITTED: Products of conception MICROSCOPIC DIAGNOSIS Endometrium, curettage: Rare chorionic villi, decidualized stroma and trophoblastic cells consistent with products of conception. AM:anila 03/10/18 MICROSCOPIC DESCRIPTION Slides are reviewed. GROSS DESCRIPTION Received in fixative is one container labeled with the patient's name and designated products of conception. The specimen consists of multiple irregular fragments of pink-pérez soft tissue that in aggregate measure 3.5 x 3 x 0.2 cm. The specimen is submitted in its entirety in two cassettes. / AM:anila 03/09/18 TC:5 CPT: 71279
--- NOTE | 2018-03-09 11:49 | PCM.DC.D&C ---
Discharge Diet: No Restrictions Discharge Activity: Return to Normal Activity, May Shower, May Take a Tub Bath Allergies/Adverse Reactions: Allergies oxycodone [From Percocet] Adverse Reaction (Verified 03/07/18 11:07) Nausea Medications to take at Discharge Citalopram Hydrobromide [Celexa] 20 mg PO DAILY #30 tab 03/09/18 Naproxen [Naprosyn] 250 - 500 mg PO Q8H PRN PRN #30 tab 03/09/18 The following prescriptions were given: Naproxen [Naprosyn] 250 - 500 mg PO Q8H PRN PRN #30 tab PRN Reason: MILD PAIN Citalopram Hydrobromide [Celexa] 20 mg PO DAILY #30 tab Primary Care Physician: Naheed Kam DO [Primary Care Provider] - Test Results: Please Follow Up With: Racheal Hartmann MD - [phone]
== END 2018-03-09 11:52 | disposition home or self-care (01) ==
LOC: SDC 08:31 → AC 08:32
PROVIDERS: Family Provider Family Medicine; PCP Family Medicine; Visit Provider Obstetrics & Gynecology
PROC: (CPT 59812; principal; 2018-03-09 09:45)
DX: O03.4 Incomplete spontaneous abortion without complication (principal)
CPT/HCPCS: 01965; 59812; 36415; 85027; 86850; 86900; 88305; J7120; J2405

== ENCOUNTER 2018-04-06 06:19 | Emergency (ER) | payer OTHER, SELFPAY ==
[2018-04-06 06:20] VITALS: BP 126/81; PULSE 68; RESP 15; TEMP 36.6; O2SAT 100; BMI 23.6
--- NOTE | 2018-04-06 06:30 | CT_ITS ---
STUDY: CT BRAIN WITHOUT CONTRAST REASON FOR EXAM: Female, 27 years old. Migraine headache RADIATION DOSAGE (If Supplied By Facility): CTDIvol = ( 44.99 ) mGy, DLP = ( 728.62 ) mGycm TECHNIQUE: Transaxial CT imaging of the brain was performed without administration of intravenous contrast material. Individualized dose optimization techniques were used for this CT. COMPARISON: None. FINDINGS: Normal soft tissue structures. Normal calvarium. Normal size ventricles and extra-axial spaces for the patient's age. Normal white matter tracts of the cerebral hemispheres. Normal basal ganglia and thalami. Normal brainstem. Normal cerebellum. There is no intracranial hemorrhage. There are no findings of an acute ischemic infarction. Normal visualized paranasal sinuses. CT/Brain/Head without Contrast IMPRESSION: Normal unenhanced CT scan of the brain. Electronically Signed: Steven Gates MD at 7:27 EDT , Service support ,
[2018-04-06] MEDS: DiphenhydrAMINE 50 MG/ML Syringe IM (06:38)
[2018-04-06] MEDS: proCHLORPERazine 10 MG/2 ML Vial IM (06:38)
--- NOTE | 2018-04-06 06:43 | ED.VISSUMM ---
- ER Visit Summary Date of Service: 04/06/18 Chief Complaint: Headache History of Present Illness: The patient is a 27 F with a headache that has been increasing over the past week. The patient has a history of migraines, but this is different. She is seeing lightning bolts in her vision and her right face feels numb. She feels dizzy. She has tried sumatriptan with minimal improvement. She also tried Excedrin with no relief. Her symptoms are worse with light and noise. 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 This was excised in October [address] Perrin. She feels increasing pain and swelling to the area and is concerned that the cyst has recurred. She denies any history of cancer. Denies fever or rash. Denies neck pain. Denies trauma. Denies blood thinners. She does use a control patch. Physical Examination: Afebrile and vital signs unremarkable. Patient is alert and oriented. No acute distress. Head and neck are normal on inspection. No sign of trauma. HEENT exam unremarkable. Cranial nerves grossly intact. Skin appears normal. Heart regular and lungs clear. No focal or lateralizing neurologic abnormalities. Speech is normal. Test Results: CT head pending. Emergency Department Course and Treatment: Patient has symptoms of a migraine headache. She also has a history of a right occipital bone cyst, and is concerned for recurrence. She has no history of intracranial mass or bleed. No other concerning historical features or clinical findings. CT head was obtained. Patient was treated with Compazine and Benadryl while awaiting results. Oncoming physician will check the results of the CT. If the CT is non-concerning and she is feeling better, she will be referred to outpatient follow-up with her physician for migraine management. At the time of this dictation, the patient had minimal improvement of her pain, but she has only just received the medication. She may need Toradol or additional medication if she has persistent pain. Treatment Plan: As above Disposition: Discharged pending results and further evaluation Impression: 1. Acute headache This note was generated with [employer] software. It may contain incorrect words, spelling, and punctuation that were not noted in review of the chart prior to signing ED Disposition - Plan for ED Patient: Chief Complaint: Headache Instructions: ED Headache Migraine Referrals: Elia Perrin MD [STAFF PHYSICIAN] - As Needed Naheed Kam DO [Primary Care Provider] - As Needed
--- NOTE | 2018-04-06 06:47 | ED.DCSUM_ITS ---
- ER Visit Summary Date of Service: 04/06/18 Chief Complaint: Headache History of Present Illness: The patient is a 27 F with a headache that has been increasing over the past week. The patient has a history of migraines, but this is different. She is seeing lightning bolts in her vision and her right face feels numb. She feels dizzy. She has tried sumatriptan with minimal improvement. She also tried Excedrin with no relief. Her symptoms are worse with light and noise. 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 This was excised in October [address] Perrin. She feels increasing pain and swelling to the area and is concerned that the cyst has recurred. She denies any history of cancer. Denies fever or rash. Denies neck pain. Denies trauma. Denies blood thinners. She does use a control patch. Physical Examination: Afebrile and vital signs unremarkable. Patient is alert and oriented. No acute distress. Head and neck are normal on inspection. No sign of trauma. HEENT exam unremarkable. Cranial nerves grossly intact. Skin appears normal. Heart regular and lungs clear. No focal or lateralizing neurologic abnormalities. Speech is normal. Test Results: CT head pending. Emergency Department Course and Treatment: Patient has symptoms of a migraine headache. She also has a history of a right occipital bone cyst, and is concerned for recurrence. She has no history of intracranial mass or bleed. No other concerning historical features or clinical findings. CT head was obtained. Patient was treated with Compazine and Benadryl while awaiting results. Oncoming physician will check the results of the CT. If the CT is non- concerning and she is feeling better, she will be referred to outpatient follow- up with her physician for migraine management. At the time of this dictation, the patient had minimal improvement of her pain, but she has only just received the medication. She may need Toradol or additional medication if she has persistent pain. Treatment Plan: As above Disposition: Discharged pending results and further evaluation Impression: 1. Acute headache This note was generated with [employer] software. It may contain incorrect words, spelling, and punctuation that were not noted in review of the chart prior to signing ED Disposition - Plan for ED Patient: Chief Complaint: Headache Instructions: ED Headache Migraine Referrals: Elia Perrin MD [STAFF PHYSICIAN] - As Needed Naheed Kam DO [Primary Care Provider] - As Needed
--- NOTE | 2018-04-06 06:50 | ED.DEP ---
ED Disposition - Plan for ED Patient: Chief Complaint: Headache Instructions: ED Headache Migraine Referrals: Naheed Kam DO [Primary Care Provider] - As Needed Elia Perrin MD [STAFF PHYSICIAN] - As Needed
[2018-04-06] MEDS: Metoclopramide 10 MG/2 ML Vial IV (07:58)
[2018-04-06] MEDS: Ketorolac 30 MG/ML Syringe IV (07:59)
[2018-04-06] MEDS: 0.9% Normal Saline 1,000 ML 1000 ML IV (07:59)
--- NOTE | 2018-04-06 08:54 | ED.DCSUM_ITS ---
- ER Visit Summary Date of Service: 04/06/18 Chief Complaint: [Addendum to initial dictation by Dr. Monroy] History of Present Illness: The patient is a 27 F [patient presented with migraine. Patient has been having a headache off and on for a week. Patient had a CT scan ordered and care turned over to me this morning awaiting CT scan results. Her CT scan of brain was normal. Patient had MRI, MRA of head in October of this year that were normal. Patient initially given Compazine and Benadryl in the emergency department IM and did not get much relief of her symptoms with that. I gave patient an IV with a liter normal same fluid bolus as well as Reglan and Toradol as well as Decadron 10 mg IV. Patient's symptoms significantly improved and now rates her headache her 2 or 3 out of 10.] Physical Examination: [] Test Results: [] Emergency Department Course and Treatment: [] Treatment Plan: [] Disposition: [Discharged home in stable condition] Impression: [Migrainous cephalgia] This note was generated with [employer] dictation software. It may contain incorrect words, spelling, and punctuation that were not noted in review of the chart prior to signing ED Disposition - Plan for ED Patient: Chief Complaint: Headache Instructions: ED Headache Migraine Referrals: Elia Perrin MD [STAFF PHYSICIAN] - As Needed Naheed Kam DO [Primary Care Provider] - As Needed
--- NOTE | 2018-04-06 08:54 | ED.DEP ---
ED Disposition - Plan for ED Patient: Chief Complaint: Headache Instructions: ED Headache Migraine Prescriptions: Prednisone [Deltasone] 20 mg PO BID #6 tab Referrals: Elia Perrin MD [STAFF PHYSICIAN] - As Needed Naheed Kam DO [Primary Care Provider] - As Needed
[2018-04-06 09:18] VITALS: BP 138/68; PULSE 80; RESP 16
== END 2018-04-06 09:20 | disposition home or self-care (01) ==
PROVIDERS: Emergency Provider Emergency Medicine; Family Provider Family Medicine; PCP Family Medicine
DX: G43.909 Migraine, unspecified, not intractable, without status migrainosus (principal)
CPT/HCPCS: 70450; 96361; 96372; 96374; 96375; 99283; J7030

== ENCOUNTER → 2018-06-13 11:57 | Outpatient (CLI) | payer OTHER, SELFPAY ==
[2018-06-13 13:41] LABS: Absolute Lymphocyte Count 1.88 X10^3/ul (0.83-4.51); Absolute Neutrophil Count 7.7 X10^3/uL (2.0-7.7); Basophil# 0.02 X10^3/uL; Basophil% 0.2 % (0-1); Eosinophil# 0.04 X10^3/uL; Eosinophils% 0.4 % (0-5); Hematocrit 40.2 % (37-47); Hemoglobin 12.8 g/dl (12.0-15.0); Lymphocyte # 1.88 X10^3/ul (4.0); Lymphocyte % 18.3 % (19-41); Mean Corp Hgb Conc 31.8 g/gl (32-36); Mean Corpuscular Hgb 26.4 pg (27.0-32.0); Mean Corpuscular Volume 83.1 fL (81-99); Mean Platelet Vol. 9.5 fl (6.2-12.0); Monocyte# 0.63 X10^3/uL; Monocyte% 6.1 % (0-10); Neutrophil % 74.8 % (47-70); Platelet Count 288 K/mm3 (150-450); RBC Distribution Width SD 39.2 fl (35.1-43.9); Red Blood Count 4.84 M/mm3 (4.2-5.4); White Blood Count 10.3 K/mm3 (4.4-11.0)
[2018-06-13 13:42] LABS: POSITIVE COUNT NO; POSITIVE DIFFERENTIAL NO; POSITIVE MORPHOLOGY NO
[2018-06-13 15:31] LABS: HIV - WCH Non-Reactive (Nonreactive); Rubella IgG 100.2 IU/mL
[2018-06-13 20:31] LABS: Chlamydia Trachomatis by PCR Negative (Negative); Neisserai gonorrhoeae by PCR Negative (Negative); Probe Check PASS; Sample Adequacy Control PASS; Specimen Processing Control PASS
[2018-06-14 07:38] LABS: HEPATITIS B SURFACE AG Negative (Negative)
[2018-06-16 05:43] LABS: Rapid Plasmin Reagin (RPR) NONREACTIVE (NONREACTIVE)
[2018-06-16 14:19] LABS: HPV Reflexed? NOT INDICATED
== END ==
PROVIDERS: Family Provider Family Medicine; PCP Family Medicine; Referring Provider Obstetrics & Gynecology; Visit Provider Obstetrics & Gynecology
DX: Z34.90 Encounter for supervision of normal pregnancy, unspecified, unspecified trimester (principal); Z12.4 Encounter for screening for malignant neoplasm of cervix
CPT/HCPCS: 36415; 85025; 86592; 86703; 86762; 86850; 86900; 87086; 87088; 87340; 87491; 87591; 88175; G0145

== ENCOUNTER → 2018-07-05 15:36 | Outpatient (CLI) | payer OTHER, SELFPAY ==
[2018-07-05 15:31] LABS: Absolute Lymphocyte Count 2.22 X10^3/ul (0.83-4.51); Absolute Neutrophil Count 8.4 X10^3/uL (2.0-7.7); Basophil# 0.01 X10^3/uL; Basophil% 0.1 % (0-1); Eosinophil# 0.04 X10^3/uL; Eosinophils% 0.4 % (0-5); Hematocrit 38.7 % (37-47); Hemoglobin 12.2 g/dl (12.0-15.0); Lymphocyte # 2.22 X10^3/ul (4.0); Lymphocyte % 19.6 % (19-41); Mean Corp Hgb Conc 31.5 g/gl (32-36); Mean Corpuscular Hgb 26.4 pg (27.0-32.0); Mean Corpuscular Volume 83.8 fL (81-99); Monocyte# 0.63 X10^3/uL; Monocyte% 5.6 % (0-10); Neutrophil # 8.39 X10^3/uL (2.7-7.7); Neutrophil % 74.2 % (47-70); Platelet Count 243 K/mm3 (150-450); RBC Distribution Width CV 13.6 % (11.6-14.6); RBC Distribution Width SD 41.2 fl (35.1-43.9); Red Blood Count 4.62 M/mm3 (4.2-5.4); White Blood Count 11.3 K/mm3 (4.4-11.0)
[2018-07-05 15:32] LABS: POSITIVE COUNT NO; POSITIVE DIFFERENTIAL NO; POSITIVE MORPHOLOGY NO
--- NOTE | 2018-07-05 15:37 | CT_ITS ---
STUDY: CT ABDOMEN AND PELVIS WITH CONTRAST REASON FOR EXAM: Female, 27 years old. Right-sided flank pain, patient is 12 weeks RADIATION DOSAGE (If Supplied By Facility): CTDIvol = ( 14.66 ) mGy, DLP = ( 582.44 ) mGycm TECHNIQUE: Transaxial images were obtained from the dome of the diaphragm to the symphysis pubis with oral contrast. 100ML ml of Isovue 300 contrast was administered. Sagittal and coronal images were reconstructed. Individualized dose optimization techniques were used for this CT. COMPARISON: Previous ultrasounds FINDINGS: The visualized lung bases are unremarkable. The visualized portions of the heart are within normal limits. Normal liver. Normal gallbladder and extrahepatic biliary system. Normal spleen. Normal pancreas. Normal bilateral adrenal glands. Normal right kidney. Normal left kidney. Normal visualized stomach. Normal small intestine. Normal colon. There is non-visualization of the appendix. Normal abdominal aorta. Normal inferior vena cava. Normal retroperitoneum. Normal urinary bladder. [place] uterus noted Normal abdominal wall. Normal osseous structures. CT/Abdomen/Pelvis WITH Contrast IMPRESSION: No suspicious solid organ abnormality, specifically no obstructive uropathy. No CT evidence of an acute inflammatory process, adnexa not visualized. Gravid uterus noted Electronically Signed: Charles Hopper MD at 18:15 EDT , Service support ,
== END ==
PROVIDERS: Family Provider Family Medicine; PCP Family Medicine; Referring Provider Nurse Practitioner Women's Health; Visit Provider Nurse Practitioner Women's Health
DX: O26.891 Other specified pregnancy related conditions, first trimester (principal); R10.9 Unspecified abdominal pain; Z3A.12 12 weeks gestation of pregnancy
CPT/HCPCS: 36415; 74177; 85025; 87086; 87088; Q9967

== ENCOUNTER → 2018-07-21 14:52 | Outpatient (CLI) | payer OTHER, SELFPAY ==
[2018-07-21 14:52] VITALS: BMI 24.5
== END ==
PROVIDERS: Family Provider Family Medicine; PCP Family Medicine; Referring Provider Nurse Practitioner Women's Health; Visit Provider Nurse Practitioner Women's Health
DX: Z34.81 Encounter for supervision of other normal pregnancy, first trimester (principal); Z31.430 Encounter of female for testing for genetic disease carrier status for procreative management
CPT/HCPCS: 36415

== ENCOUNTER → 2018-08-10 16:03 | Outpatient (CLI) | payer OTHER, SELFPAY ==
[2018-08-10 15:52] VITALS: BMI 24.5
== END ==
PROVIDERS: Family Provider Family Medicine; PCP Family Medicine; Referring Provider Nurse Practitioner Women's Health; Visit Provider Nurse Practitioner Women's Health
DX: Z36.9 Encounter for antenatal screening, unspecified (principal)
CPT/HCPCS: 36415

== ENCOUNTER → 2018-08-23 13:46 | Outpatient (CLI) | payer OTHER, SELFPAY ==
[2018-08-10 15:52] VITALS: BMI 24.5
--- NOTE | 2018-08-23 13:47 | US_ITS ---
STUDY: SECOND AND THIRD TRIMESTER OBSTETRICAL ULTRASOUND REASON FOR EXAM: Female, 28 years old. anatomy screening. LMP: Unknown. Estimated due date January 15, 2019 is provided. TECHNIQUE: Transabdominal TECHNICAL QUALITY: Adequate. PRIOR ULTRASOUND: None. FINDINGS: There is a single intrauterine fetus. The fetus is in a transverse lie with the head on the maternal right side. There is demonstrated cardiac activity with a heart rate of 156 bpm. There is a normal amniotic fluid volume. The largest amniotic fluid pocket measures 4.7 x 5.7 cm. The placenta is anterior in location and is not low lying. There are Grade 0 placental changes. The cervix measures 4.3 cm in length and is closed. The bilateral adnexal regions are normal. BIOMETRY: BPD: 4.4 cm: 19 weeks, 2 days HC: 16.1 cm: 19 weeks, 0 days AC: 14.1 cm: 19 weeks, 4 days FL: 2.9 cm: 19 weeks, 0 days CI: 81% FL/BPD: 67% FL/AC: 21% HC/AC: 1.15 age by current US: 19 weeks, 2 days. MAEVE by current US: January 15, 2019. Estimated weight: 279 grams, +/- 41 grams, 40 %. Age by given MAEVE: 19 weeks, 2 days. Given MAEVE: January 15, 2019. ANATOMY: Gender: Female Cranium: Normal lateral ventricles, measuring 5 mm in width. Normal choroid plexus. Normal cerebellum. Normal cisterna magna. Normal face, nose and lips. Chest: Normal 4-chamber heart. Abdomen/Pelvis: Normal diaphragm. Normal size stomach, containing fluid and a small volume of soft tissue echogenicity. Normal abdominal wall. Normal cord insertion. Normal 3 vessel cord. Normal kidneys. Normal bladder. Spine: Normal cervical spine. Normal thoracic spine. Normal lumbar spine. Normal sacrum. Extremities: Normal bilateral upper extremities. Normal bilateral lower extremities. US/OB Anatomy Scan IMPRESSION: 1. Single living intrauterine fetus, presently in transverse lie with the head on the maternal right side. Estimated gestational age is 19 weeks, 2 days, corresponding to an estimated date of delivery January 15, 2019. 2. Some soft tissue echogenic material is seen along with fluid in the lumen of the stomach, the clinical significance of which is uncertain. The anatomic survey is otherwise unremarkable. 3. Estimated weight is 279 g. 4. The cervix is closed. Cervical length is 4.3 cm. 5. Grade 0 placenta is not low lying. 6. Normal amniotic fluid volume. Electronically Signed: Charles Moon MD at 13:01 EST , Service support ,
--- OUTSIDE RECORDS SUMMARY | 2018-11-24 20:34 | XMS RPT_ITS ---
:1990 Author Organization [facility] Support Name Relationship Address Phone SENTHIL GALLO Unavailable [id number] + [place] [address] [facility] Unavailable [address] + [place] [address] CHAPIS DUKE Unavailable [address] + [place] [address] GALLO NDIAYE Unavailable [address] + [place] [id number] [facility] Unavailable [address] + [place] [address] CHAPIS DUKE Unavailable [address] + [place] [address] GALLO NDIAYE Unavailable [address] + [place] [address] [facility] Unavailable [address] + [place] [address] CHAPIS DUKE Unavailable [address] + [place] [address] GALLO NDIAYE Unavailable [address] + [place] [address] [facility] Unavailable [address] + [place] [address] CHAPIS DUKE Unavailable [address] + [place] [address] GALLO NDIAYE Unavailable [address] + [place] [address] [facility] Unavailable [address] + [place] [address] CHAPIS DUKE Unavailable [address] + [place] [address] GALLO NDIAYE Unavailable [address] + [place] [address] [facility] Unavailable [address] + [place] [address] CHAPIS DUKE Unavailable [address] + [place] [address] SENTHIL GALLO Unavailable [address] + [place] [address] [facility] Unavailable [address] + [place] [address] CHAPIS DUKE Unavailable [address] + [place] [address] GALLO NDIAYE Unavailable [address] + [place] [address] [facility] Unavailable [address] + [place] [address] CHAPIS DUKE Unavailable [address] + [place] [address] GALLO NDIAYE Unavailable [address] + [place] [address] [facility] Unavailable [address] + [place] [address] CHAPIS DUKE Unavailable [address] + [place] [address] GALLO NDIAYE Unavailable [address] + [place] [address] [facility] Unavailable [address] + [place] [address] [facility] Unavailable [address] + [place] [address] VERONICA MCKEON Unavailable [address] + [place] [address] [facility] Unavailable [address] + [place] [address] CHAPIS DUKE Unavailable [address] + [place] [address] VERONICA MCKEON Unavailable [address] + [place] [address] [facility] Unavailable [address] + [place] [address] CHAPIS DUKE Unavailable [address] + [place] [address] VERONICA MCKEON Unavailable [address] + [place] [address] [facility] Unavailable [address] + [place] [address] DUKECHAPIS Unavailable [address] + [place] [address] MIKE VERONICA Unavailable [address] + [place] [address] [facility] Unavailable [address] + [place] [address] DUKE, CHAPIS Unavailable [address] + [place] [address] VERONICA MCKEON Unavailable [address] + [place] [address] [facility] Unavailable [address] + [place] [address] DUKE CHAPIS Unavailable [address] + [place] [address] VERONICA MCKEON Unavailable [address] + [place] [address] [facility] Unavailable [address] + [place] [address] CHAPIS DUKE Unavailable [address] + [place] [address] VERONICA MCKEON Unavailable [address] + [place] [address] [facility] Unavailable [address] + [place] [address] DUKE, ADAMDEVEN Unavailable [address] + [place] [address] MIKE VERONICA Unavailable [address] + [place] [address] [facility] Unavailable [address] + [place] [address] DUKE ADAMDEVEN Unavailable [address] + [place] [address] MIKE VERONICA Unavailable [address] + [place] [address] [facility] Unavailable [address] + [place] [address] DUKE CHAPIS Unavailable [address] + [place] [address] VERONICA MCKEON Unavailable [address] + [place] [address] [facility] Unavailable [address] + [place] [address] DUKE, PAULETTA Unavailable [address] + [place] [address] VERONICA MCKEON Unavailable [address] + [place] [address] [facility] Unavailable [address] + [place] [address] DUKECHAPIS Cardenas Unavailable [address] + [place] [address] VERONICA MCKEON Unavailable [address] + [place] [address] [facility] Unavailable [address] + [place] [address] CHAPIS DUKE Unavailable [address] + [place] [address] VERONICA MCKEON Unavailable [address] + [place] [address] [facility] Unavailable [address] + [place] [address] DUKE CHAPIS Unavailable [address] + [place] [address] VERONICA MCKEON Unavailable [address] + [place] [address] [facility] Unavailable [address] + [place] [address] DUKE CHAPIS Unavailable [address] + [place] [address] VERONICA MCKEON Unavailable [address] + [place] [address] [facility] Unavailable [address] + [place] [address] CHAPIS DUKE Unavailable [address] + [place] [address] VERONICA MCKEON Unavailable [address] + [place] [address] [facility] Unavailable [address] + [place] [address] DUKE, PAULETTA Unavailable [address] + [place] [address] MIKE, VERONICA Unavailable [address] + [place] [address] [facility] Unavailable [address] + [place] [address] DUKE, PAULETTA Unavailable [address] + [place] [address] MCKEON, VERONICA Unavailable [address] + [place] [address] [facility] Unavailable [address] + [place] [address] DUKE, PAULETTA Unavailable [address] + [place] [address] MCKEON, VERONICA Unavailable [address] + [place] [address] [facility] Unavailable [address] + [place] [address] DUKE, PAULETTA Unavailable [address] + [place] [address] MIKE, VERONICA Unavailable [address] + [place] [address] [facility] Unavailable [address] + [place] [address] DUKE, PAULETTA Unavailable [address] + [place] [address] MIKE VERONICA Unavailable [address] + [place] [address] [facility] Unavailable [address] + [place] [address] DUKE, PAULETTA Unavailable [address] + [place] [address] Care Team Providers Name Role Phone Cindy Vivas Attending Unavailable Cindy Vivas Referring Unavailable Malys, Naheed Primary Care Unavailable Racheal Hartmann Attending Unavailable Naheed Kam Referring Unavailable Elia Perrin Attending Unavailable Negin, Naheed Primary Care Unavailable Elia Perrin Admitting Unavailable Cornelius Tilley Consulting Unavailable Jorge Adams Consulting Unavailable Paintsil, Donie Consulting Unavailable Marychuy Elia Attending Unavailable Malys, Naheed Primary Care Unavailable Slaby, Elia Consulting Unavailable Slaby, Elia Attending Unavailable Malys, Naheed Primary Care Unavailable Slaby, Elia Consulting Unavailable Slaby, Elia Admitting Unavailable Paintsil, Donie Attending Unavailable Malys, Naheed Primary Care Unavailable Paintsil, Donie Consulting Unavailable Treva, Cornelius S. Consulting Unavailable Bryan, Jorge Consulting Unavailable Slaby, Elia Consulting Unavailable Slaby, Elia Admitting Unavailable Paintsil, Donie Attending Unavailable Malys, Naheed Primary Care Unavailable Paintsil, Donie Consulting Unavailable Treva, Cornleius S. Consulting Unavailable Bryan, Jorge Consulting Unavailable Slaby, Elia Consulting Unavailable Slaby, Elia Admitting Unavailable Slaby, Elia Attending Unavailable Malys, Naheed Primary Care Unavailable Treva, Cornelius S. Consulting Unavailable Bryan, Jorge Consulting Unavailable Paintsil, Donie Consulting Unavailable Slaby, Elia Consulting Unavailable OrtegaMary Anny Attending Unavailable Malys, Naheed Referring Unavailable Malys, Naheed Primary Care Unavailable Cottage GroveCindy Attending Unavailable Malys, Naheed Primary Care Unavailable Cottage GroveCindy Referring Unavailable MarcanthonyRacheal Attending Unavailable Malys, Naheed Referring Unavailable Malys, Naheed Primary Care Unavailable Marcanthony, Racheal Attending Unavailable Marcanthony, Racheal Referring Unavailable Malys, Naheed Primary Care Unavailable Marcanthony, Racheal Attending Unavailable Marcanthony, Racheal Referring Unavailable Malys, Naheed Primary Care Unavailable Marcanthony, Racheal Attending Unavailable Marcanthony, Racheal Referring Unavailable Malys, Naheed Primary Care Unavailable Marcanthony, Racheal Attending Unavailable Marcanthony, Racheal Referring Unavailable Malys, Naheed Primary Care Unavailable Marcanthony, Racheal Attending Unavailable Malys, Naheed Referring Unavailable Malys, Naheed Primary Care Unavailable Marcanthony, Racheal Attending Unavailable Marcanthony, Racheal Referring Unavailable Malys, Naheed Primary Care Unavailable Marcanthony, Racheal Attending Unavailable Marcanthony, Racheal Referring Unavailable Malys, Naheed Primary Care Unavailable Marcanthony, Racheal Consulting Unavailable Marcanthony, Racheal Attending Unavailable Malys, Naheed Referring Unavailable Malys, Naheed Primary Care Unavailable Malys, Naheed Primary Care Unavailable Cale Monroy Attending Unavailable Slaby, Elia Attending Unavailable Malys, Naheed Referring Unavailable Malys, Naheed Primary Care Unavailable ASSESSMENT, HEALTH RISK Attending Unavailable ASSESSMENT, HEALTH RISK Referring Unavailable Malys, Naheed Primary Care Unavailable [place], Cindy Attending Unavailable Malys, Naheed Referring Unavailable Marcanthony, Racheal Attending Unavailable Marcanthony, Racheal Referring Unavailable Malys, Naheed Primary Care Unavailable [place], Cindy Consulting Unavailable [place], Cindy Attending Unavailable Malys, Naheed Referring Unavailable [place], Cindy Attending Unavailable Ortega, Cindy Referring Unavailable Malys, Naheed Primary Care Unavailable Marcanthony, Racheal Attending Unavailable Malys, Naheed Referring Unavailable Ortega, Icndy Attending Unavailable [place], Cindy Referring Unavailable Malys, Naheed Primary Care Unavailable Ortega, Cindy Attending Unavailable Malys, Naheed Referring Unavailable Ortega, Cindy Attending Unavailable Ortega, Cindy Referring Unavailable Malys, Naheed Primary Care Unavailable Slaby, Elia Attending Unavailable Malys, Naheed Referring Unavailable Malys, Naheed Primary Care Unavailable PROBLEMS PROBLEMS DATE TYPE CONDITION / CODE ATTENDING STATUS SOURCE 09/11/2018 Unknown A60.04 - Herpesviral Marcanthony, Active [place] vulvovaginitis / [facility] A60.04(ICD-10) Hospital Repository 09/11/2018 Unknown Z3A.22 - 22 weeks Marcanthony, Active [place] gestation of [facility] / Hospital Z3A.22(ICD-10) Repository 09/11/2018 Unknown Z34.82 - Encounter Marcanthony, Active [place] for supervision of [facility] other normal Hospital , second Repository trimester / Z34.82(ICD-10) 08/31/2018 Unknown Z36.9 - Encounter Cindy Vivas Active [place] for Community screening, Hospital unspecified / Repository Z36.9(ICD-10) 07/21/2018 Unknown Z34.81 - Encounter Cindy Vivas Active [place] for supervision of [facility] other normal Hospital , first Repository trimester / Z34.81(ICD-10) 07/21/2018 Unknown Z31.430 - Encounter Cindy Vivas Active [place] of female for Community testing for genetic Hospital disease carrier Repository status for procreative management / Z31.430(ICD-10) 07/21/2018 Unknown Z31.440 - Encounter Cindy Vivas Active [place] of male for testing Community for genetic disease Hospital carrier status for Repository procreative management / Z31.440(ICD-10) 07/10/2018 Unknown Z3A.12 - 12 weeks Mary Kate Active [place] gestation of [facility] / Hospital Z3A.12(ICD-10) Repository 07/05/2018 Unknown R10.9 - Unspecified Ortega, Cindy Active [place] abdominal pain / Community R10.9(ICD-10) Hospital Repository 07/05/2018 Unknown R10.2 - Pelvic and Ortega, Cindy Active [place] perineal pain / Community R10.2(ICD-10) Hospital Repository 06/15/2018 Unknown Z34.90 - Encounter Mary Kate Active [place] for supervision of [facility] normal , Hospital unspecified, Repository unspecified trimester / Z34.90(ICD-10) 06/15/2018 Unknown Z12.4 - Encounter Mary Kate Active [place] for screening for [facility] malignant neoplasm Hospital of cervix / Repository Z12.4(ICD-10) 02/20/2018 Unknown Z30.016 - Encounter Mary Kate Active [place] for initial [facility] prescription of Hospital transdermal patch Repository hormonal contraceptive device / Z30.016(ICD-10) 01/12/2018 Unknown N76.0 - Acute Ortega, Cindy Active [place] vaginitis / Community N76.0(ICD-10) Hospital Repository 10/11/2017 Unknown D49.2 - Neoplasm of Paintsil, Donie Active [place] unspecified behavior Community of bone, soft Hospital tissue, and skin / Repository D49.2(ICD-10) 10/11/2017 Unknown R51 - Headache / Paintsil, Donie Active [place] R51(ICD-10) [facility] Repository 10/15/2017 Unknown R22.0 - Localized Slaby, Elia Active [place] swelling, mass and Community lump, head / Hospital R22.0(ICD-10) Repository 09/29/2017 Unknown R22.9 - Localized Slaby, Elia Active [place] swelling, mass and Community lump, unspecified / Hospital R22.9(ICD-10) Repository PROCEDURES PROCEDURES No Procedure Records FoundRESULTS RESULTS SUPPLY OFFICER OFFICE VISIT Observed: 09/11/2018 Status: F Source: [place] REPORT 8:15 AM [facility] REPOSITORY [facility] [address] [place] [address] OFFICE VISIT Date of Service: 09/11/18 MR#: [id number] Acct: [id number] Name: SCHUYLER DUKE Rep #: [id number] : 1990 Provider: Racheal Hartmann MD Age/Sex: 28/F Location: [facility] Status: Signed Intake Vital Signs09/11/18 Body Mass Index (BMI) 24.5 09/11/18 Height 5 ft 09/11/18 Weight: 139 lb 6 oz 09/11/18 Body Mass Index (BMI) 27.2 09/11/18 Blood Pressure 100/72 Intake Visit Reasons: 21 weeks Chief Complaint: est ob Candy Feeder Required: No Is patient in pain?: No Allergies hydromorphone [From Dilaudid] Adverse Reaction (Verified 09/11/18 07:57) Other oxycodone [From Percocet] Adverse Reaction (Verified 09/11/18 07:57) Nausea Medications valacyclovir 500 mg tablet 500 mg PO BID #20 tab 04/20/18 [Rx Confirmed 09/11/18] acetaminophen 325 mg tablet 325 mg PO Q6H PRN 09/11/18 [History Confirmed 09/11/18] vitamin#30 30 mg iron-10 mg iron-folic acid 1 mg- omg3 capsule cap PO cap 09/11/18 [History Confirmed 09/11/18] Last Menstral Period: 04/10/18 Zika: Zika virus screening: Negative : No PFSH PFSH Medical History Anxiety and depression (Acute) Frequent headaches (Acute) Mass of head (Acute) Urinary tract infection (Acute) Yeast infection (Acute) Surgical History History of dilation and curettage (Acute) lumpectomy back of head (Resolved) Family History Father Diabetes Hypertension Mother Hypertension Social History Smoking Status: Never smoker alcohol intake: current details: pre- substance use type: does not use caffeine: Yes what type of physical activity do you participate in: other details: cardio, walking frequency: 5-6 times per week seatbelt use: always do you feel safe at home: Yes additional social history: [place] Patient works on [email or web address] Pregancy History 2 Elective abortions 1 Hx Para Spontaneous abortions HPI 21 weeks: Details: SCHUYLER DUKE is a 28 year old who presents for routine OB visit. OB Visit MAEVE Calculator Estimated Delivery Date 01/15/19 Based on LMP (certain) 04/10/18 Current WG 22w 0d Number 1 Expected Delivery Route/Plan Specific Issue/Plans flu vaccine: declines tdap vaccine: [] rhogam: [] LARC form signed: [] labor support person: Gallo pain management: [] cut cord/dad catch: [] : [] PP control planned: [] special requests: [] Initial Weight: 120 lb Date Weight BP Urine PFHR FuHt Pres MCTX DilatioFetal SVisit NProvideComment rot ov n t ote r s EGA Ef Gluco faced se 06/13/1120 lb 100/60 168 8 6 oz (+ 9w6 oz) 1d Visit Notes Visit Date: 09/11/18 no vb cramping co headaches and some dizzinies with near syncope at times Racheal Hartmann MD on 09/11/18 Visit Date: 08/10/18 No VB, LOF. Doing well CHARLY Valle on 08/10/18 Visit Date: 07/10/18 nausea and heartburn no vb cramping, considering genetic screening Racheal Hartmann MD on 07/10/18 Visit Date: 07/05/18 Work in for sudden onset lower right pelvic pain and flank pain. Afebrile. Denies vaginal spotting bleeding. Good FM noted on US with FHT CHARLY Valle on 07/05/18 Visit Date: 06/13/18 No visit notes to display ACOG First Trimester First Trimester: Discussed Diagnostics Diagnostics Labs Blood Type A POSITIVE 06/13/18 Antibody Screen NEGATIVE 06/13/18 Hct 38.7 % (37-47) 07/05/18 Hgb 12.2 g/dl (12.0-15.0) 07/05/18 Obstetrics Ultrasound 08/23/18 Rubella IgG Antibody 100.2 IU/mL 06/13/18 RPR NONREACTIVE (NONREACTIVE) 06/13/18 Hep Bs Antigen Negative (Negative) 06/13/18 Chlam trachomat DNA PCR Negative (Negative) 06/13/18 N.gonorrhoeae DNA (PCR) Negative (Negative) 06/13/18 Miscellaneous Test 08/10/18 Details: HIV: Urine Culture: Sequential Screen: NIPT Screen: Results [id number] Office Urine Glucose Negative Last Edit by Mouna Douglas on 09/11/18 08:02 Office Urine Protein Negative Last Edit by Mouna Douglas on 09/11/18 08:02 Assessment AND Plan Problems 1. 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 22 weeks gestation of Z3A.22 nipt and NTD screening nl. carrier screening declined. anatomy scan reviewed. 3. Encounter for supervision of other normal in second trimester Z34.82 PRR MAEVE 01/15/19 girl Barbara BF Gallo Plan ACOG trimester education reviewed and updated. see problem list details for updated plan management information and see below for orders placed at this visit. GA appropriate handout given. 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 Herpes simplex infection site: vulvovaginitis 22 weeks gestation of Z3A.22 Weeks of gestation: 22 weeks Encounter for supervision of other normal in second trimester Z34.82 Normal : other normal Trimester: second trimester 09/11/18 0815 <Electronically signed by Racheal Hartmann MD> Date Racheal Hartmann MD Cosigner Signature: Date (if applicable) CC: OB ANATOMY SCAN Observed: 08/23/2018 Status: F Source: [place] 1:47 PM [facility] REPOSITORY [facility] Imaging Services [address] [place] [address] OB Anatomy Scan MR#: [id number] Acct: [id number] Name: SCHUYLER DUKE Rep #: [id number] : 1990 F 28 From: Smith Moon MD PCP: Naheed Kam DO Status: REG CLI Study: OB Anatomy Scan Date of Exam: 08/23/18 Exam# [id number] Ordering Dr: Cindy Vivas FAMILY LAWYER-[employer] STUDY: SECOND AND THIRD TRIMESTER OBSTETRICAL ULTRASOUND REASON FOR EXAM: Female, 28 years old. anatomy screening. LMP: Unknown. Estimated due date January 15, 2019 is provided. TECHNIQUE: Transabdominal TECHNICAL QUALITY: Adequate. PRIOR ULTRASOUND: None. FINDINGS: There is a single intrauterine fetus. The fetus is in a transverse lie with the head on the maternal right side. There is demonstrated cardiac activity with a heart rate of 156 bpm. There is a normal amniotic fluid volume. The largest amniotic fluid pocket measures 4.7 x 5.7 cm. The placenta is anterior in location and is not low lying. There are Grade 0 placental changes. The cervix measures 4.3 cm in length and is closed. The bilateral adnexal regions are normal. BIOMETRY: BPD: 4.4 cm: 19 weeks, 2 days HC: 16.1 cm: 19 weeks, 0 days AC: 14.1 cm: 19 weeks, 4 days FL: 2.9 cm: 19 weeks, 0 days CI: 81% FL/BPD: 67% FL/AC: 21% HC/AC: 1.15 age by current US: 19 weeks, 2 days. MAEVE by current US: January 15, 2019. Estimated weight: 279 grams, +/- 41 grams, 40 %. Age by given MAEVE: 19 weeks, 2 days. Given MAEVE: January 15, 2019. ANATOMY: Gender: Female Cranium: Normal lateral ventricles, measuring 5 mm in width. Normal choroid plexus. Normal cerebellum. Normal cisterna magna. Normal face, nose and lips. Chest: Normal 4-chamber heart. Abdomen/Pelvis: Normal diaphragm. Normal size stomach, containing fluid and a small volume of soft tissue echogenicity. Normal abdominal wall. Normal cord insertion. Normal 3 vessel cord. Normal kidneys. Normal bladder. Spine: Normal cervical spine. Normal thoracic spine. Normal lumbar spine. Normal sacrum. Extremities: Normal bilateral upper extremities. Normal bilateral lower extremities. US/OB Anatomy Scan IMPRESSION: 1. Single living intrauterine fetus, presently in transverse lie with the head on the maternal right side. Estimated gestational age is 19 weeks, 2 days, corresponding to an estimated date of delivery January 15, 2019. 2. Some soft tissue echogenic material is seen along with fluid in the lumen of the stomach, the clinical significance of which is uncertain. The anatomic survey is otherwise unremarkable. 3. Estimated weight is 279 g. 4. The cervix is closed. Cervical length is 4.3 cm. 5. Grade 0 placenta is not low lying. 6. Normal amniotic fluid volume. Electronically Signed: Charles Moon MD at 13:01 EST , Service support , CC: KIA Vivas; Naheed Kam DO Horse Race Timer: Signed MISCELLANEOUS LAB Collected: 08/10/2018 Status: F Source: [place] PROCEDURE 4:30 PM [facility] REPOSITORY Order Comment: Comments: [id number] AFP RT Test(s) Ordered: [id number] AFP RT TYPE CODE TESTS RESULT OUT OF RANGE REFERENCE UNITS LAB L801.1541 Normal [facility] TEST Result Comment: TEST RESULT LIMITS AFP, Serum, Open Spina Bifida Results Report Test Results: *Screen Negative* Gest. Age on Collection Date 17.4 weeks Gestat. Age Based On As provided Recalculations are not recommended when gestational dating by LMP and ultrasound are within 10 days. [age]EVE [age] yr Race Weight 130 lbs Insulin Dep Diabetes No Multiple Gestation No AFP Value 43.8 ng/mL AFP MoM 1.03 OSBR Risk 1 [place] [address]11 Interpretation Interpretation: Screen Negative This result is screen negative for OSB. The AFP MoM calculated is based on the gestational age provided. MS-AFP can identify up to 80% of open neural tube defects. Closed neural tube defects and some open defects may not be detected by this test. This test does not screen for Down Syndrome or Trisomy 18. If screening for Down Syndrome or Trisomy 18 is desired, contact Genetic Customer Services to discuss available options. The [place] [employer] recommends amniocentesis be offered to women age 35 and older. Comment: Teresa Viera, Ph.D., [facility] Principal Genetics Logistics Account Manager References: Available Upon Request. Multiples Of Median Cutoffs For AFP Elevations Syed 2.5 Black 2.8 IDD 2.0 Twins 4.5 Abbreviation Definitions IDD - Insulin Dep Diabetes OSBR - Open Spina Bifida Risk For further inquiries contact [facility] Services at [phone]. TESTING PERFORMED AT [facility]. ORIGINAL REPORT ON FILE IN LAB CONTAINS ADDITIONAL TEST SITE INFORMATION. Performed By: #### L801.1541 #### [facility] [address] [place], [address] SUPPLY OFFICER OFFICE VISIT Observed: 08/10/2018 Status: F Source: [place] REPORT 4:22 PM [facility] REPOSITORY [facility] [address] [place] [address] OFFICE VISIT Date of Service: 08/10/18 MR#: [id number] Acct: [id number] Name: SCHUYLER DUKE Rep #: [id number] : 1990 Provider: KIA Vivas Age/Sex: 28/F Location: [facility] Status: Signed Intake Vital Signs08/10/18 Body Mass Index (BMI) 24.5 08/10/18 Height 5 ft 12/06/18 Weight: 130 lb 08/10/18 Body Mass Index (BMI) 25.4 08/10/18 Blood Pressure 102/64 Intake Visit Reasons: 17 WEEK Candy Feeder Required: No Is patient in pain?: No Allergies hydromorphone [From Dilaudid] Adverse Reaction (Verified 08/10/18 15:51) Other oxycodone [From Percocet] Adverse Reaction (Verified 08/10/18 15:51) Nausea Medications Naproxen [Naprosyn] 250 - 500 mg PO Q8H PRN PRN #30 tab 03/09/18 [Rx Confirmed 08/10/18] Sumatriptan Succinate 10 mg PO PRN PRN 04/06/18 [History Confirmed 08/10/18] valacyclovir 500 mg tablet 500 mg PO BID #20 tab 04/20/18 [Rx Confirmed 08/10/18] zolmitriptan 2.5 mg tablet 2.5 mg PO ONCE 04/20/18 [History Confirmed 08/10/18] ondansetron HCl 4 mg tablet 4 mg PO Q6H PRN #60 tab 06/13/18 [Rx Confirmed 08/10/18] promethazine 12.5 mg tablet 12.5 mg PO Q6H PRN #120 tab 07/10/18 [Rx Confirmed 08/10/18] ranitidine 150 mg tablet 150 mg PO QHS #60 tab 07/10/18 [Rx Confirmed 08/10/18] Last Menstral Period: 04/10/18 Zika: Zika virus screening: Negative : No PFSH PFSH Medical History Anxiety and depression (Acute) Frequent headaches (Acute) Mass of head (Acute) Urinary tract infection (Acute) Yeast infection (Acute) Surgical History History of dilation and curettage (Acute) lumpectomy back of head (Resolved) Family History Father Diabetes Hypertension Mother Hypertension Social History Smoking Status: Never smoker alcohol intake: current details: pre- substance use type: does not use caffeine: Yes what type of physical activity do you participate in: other details: cardio, walking frequency: 5-6 times per week seatbelt use: always do you feel safe at home: Yes additional social history: Gallo Patient works on [employer] Pregancy History 2 Elective abortions 1 Hx Para Spontaneous abortions HPI 17 WEEK : Details: SCHUYLER MCKEON is a 28 year old who presents for routine OB visit. OB Visit MAEVE Calculator Estimated Delivery Date 01/15/19 Based on LMP (certain) 04/10/18 Current WG 17w 3d Number 1 Expected Delivery Route/Plan Specific Issue/Plans flu vaccine: declines tdap vaccine: [] rhogam: [] LARC form signed: [] labor support person: Gallo pain management: [] cut cord/dad catch: [] : [] PP control planned: [] special requests: [] Initial Weight: 120 lb Date Weight BP Urine PrFHR FuHt Pres MoCTX DilationFetal StVisit NoProviderComments E ot v te GA G Effac lucose ed Visit Notes Visit Date: 08/10/18 No VB, LOF. Doing well CHARLY Valle on 08/10/18 Visit Date: 07/10/18 nausea and heartburn no vb cramping, considering genetic screening Racheal Hartmann MD on 07/10/18 Visit Date: 07/05/18 Work in for sudden onset lower right pelvic pain and flank pain. Afebrile. Denies vaginal spotting bleeding. Good FM noted on US with FHT CHARLY Valle on 07/05/18 Visit Date: 06/13/18 No visit notes to display ACOG First Trimester First Trimester: Discussed Diagnostics Diagnostics Labs Blood Type A POSITIVE 06/13/18 Antibody Screen NEGATIVE 06/13/18 Hct 38.7 % (37-47) 07/05/18 Hgb 12.2 g/dl (12.0-15.0) 07/05/18 Rubella IgG Antibody 100.2 IU/mL 06/13/18 RPR NONREACTIVE (NONREACTIVE) 06/13/18 Hep Bs Antigen Negative (Negative) 06/13/18 Chlam trachomat DNA PCR Negative (Negative) 06/13/18 N.gonorrhoeae DNA (PCR) Negative (Negative) 06/13/18 Miscellaneous Test Pending 07/21/18 Details: HIV: Urine Culture: Sequential Screen: NIPT Screen: Results [id number] Office Urine Glucose Negative Last Edit by Carin Casillas on 08/10/18 16:12 Office Urine Protein Negative Last Edit by Carin Casillas on 08/10/18 16:12 Assessment AND Plan Problems 1. Encounter for supervision of other normal in first trimester Z34.81 PRR MAEVE 01/15/19 BF Gallo 2. 17 weeks gestation of Z3A.17 considering AFP. Plan Orders placed: AFP Reviewed NIPT low risk Anatomy [facility] ordered(employee) Reviewed of labor precautions, movement/kick counts ACOG trimester education reviewed and updated See problem list details for updated plan of care Gestational age appropriate handout given RTO: 4 weeks Orders Orders: Coding Level of Care Code OB Routine Diagnoses Encounter for supervision of other normal in first trimester Z34.81 Normal : other normal Trimester: first trimester 17 weeks gestation of Z3A.17 Weeks of gestation: 17 weeks 08/10/18 1622 <Electronically signed by Cindy PARKS> Date Cindy PARKS Cosigner Signature: Date (if applicable) CC: MISCELLANEOUS LAB Collected: 07/21/2018 Status: F Source: [place] PROCEDURE 3:03 PM [facility] REPOSITORY Order Comment: 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 08/15/18 1621 MYOUNG Performed By: #### L801.1541 #### [place] [facility] [address] [place], [place], [id number] SUPPLY OFFICER OFFICE VISIT Observed: 07/10/2018 Status: F Source: [place] REPORT 11:28 AM [facility] [address] [place] [place] [address] OFFICE VISIT Date of Service: 07/10/18 MR#: [id number] Acct: [id number] Name: SCHUYLER MCKEON Rep #: [id number] : 1990 Provider: Racheal Hartmann MD Age/Sex: 27/F Location: [facility] Status: Signed Intake Vital Signs07/10/18 Height 5 ft 07/10/18 Weight: 124 lb 07/10/18 Body Mass Index (BMI) 24.2 07/10/18 Blood Pressure 100/64 Intake Visit Reasons: weeks Chief Complaint: est ob Candy Feeder Required: No Is patient in pain?: Yes Allergies hydromorphone [From Dilaudid] Adverse Reaction (Verified 07/10/18 10:46) Other oxycodone [From Percocet] Adverse Reaction (Verified 07/10/18 10:46) Nausea Medications Naproxen [Naprosyn] 250 - 500 mg PO Q8H PRN PRN #30 tab 03/09/18 [Rx Confirmed 07/10/18] Sumatriptan Succinate 10 mg PO PRN PRN 04/06/18 [History Confirmed 07/10/18] valacyclovir 500 mg tablet 500 mg PO BID #20 tab 04/20/18 [Rx Confirmed 07/10/18] zolmitriptan 2.5 mg tablet 2.5 mg PO ONCE 04/20/18 [History Confirmed 07/10/18] ondansetron HCl 4 mg tablet 4 mg PO Q6H PRN #60 tab 06/13/18 [Rx Confirmed 07/10/18] promethazine 12.5 mg tablet 12.5 mg PO Q6H PRN #120 tab 07/10/18 [Rx Confirmed 07/10/18] ranitidine 150 mg tablet 150 mg PO QHS #60 tab 07/10/18 [Rx Confirmed 07/10/18] Last Menstral Period: 04/10/18 Zika: Zika virus screening: Negative : No PFSH PFSH Medical History Anxiety and depression (Acute) Frequent headaches (Acute) Mass of head (Acute) Urinary tract infection (Acute) Yeast infection (Acute) Surgical History History of dilation and curettage (Acute) lumpectomy back of head (Resolved) Family History Father Diabetes Hypertension Mother Hypertension Social History Smoking Status: Never smoker alcohol intake: current details: pre- substance use type: does not use caffeine: Yes what type of physical activity do you participate in: other details: cardio, walking frequency: 5-6 times per week seatbelt use: always do you feel safe at home: Yes additional social history: Gallo Patient works on [employer] Pregancy History 2 Elective abortions 1 Hx Para Spontaneous abortions HPI weeks: Details: SCHUYLER MCKEON is a 27 year old who presents for routine OB visit. OB Visit MAEVE Calculator Estimated Delivery Date 01/15/19 Based on LMP (certain) 04/10/18 Current WG 13w 0d Number 1 Expected Delivery Route/Plan Specific Issue/Plans flu vaccine: declines tdap vaccine: [] rhogam: [] LARC form signed: [] labor support person: Gallo pain management: [] cut cord/dad catch: [] : [] PP control planned: [] special requests: [] Initial Weight: 120 lb Date Weight BP Urine PrFHR FuHt Pres MoCTX DilationFetal StVisit NoProviderComments E ot v te GA G Effac lucose ed Visit Notes Visit Date: 07/10/18 nausea and heartburn no vb cramping, considering genetic screening Racheal Hartmann MD on 07/10/18 Visit Date: 07/05/18 Work in for sudden onset lower right pelvic pain and flank pain. Afebrile. Denies vaginal spotting bleeding. Good FM noted on US with FHT CHARLY Valle on 07/05/18 Visit Date: 06/13/18 No visit notes to display ACOG First Trimester First Trimester: Discussed Diagnostics Diagnostics Labs Blood Type A POSITIVE 06/13/18 Antibody Screen NEGATIVE 06/13/18 Hct 38.7 % (37-47) 07/05/18 Hgb 12.2 g/dl (12.0-15.0) 07/05/18 Rubella IgG Antibody 100.2 IU/mL 06/13/18 RPR NONREACTIVE (NONREACTIVE) 06/13/18 Hep Bs Antigen Negative (Negative) 06/13/18 Chlam trachomat DNA PCR Negative (Negative) 06/13/18 N.gonorrhoeae DNA (PCR) Negative (Negative) 06/13/18 Details: HIV: Urine Culture: Sequential Screen: NIPT Screen: Results [id number] Office Urine Glucose Negative Last Edit by Mouna Douglas on 07/10/18 10:52 Office Urine Protein Negative Last Edit by Mouna Douglas on 07/10/18 10:52 Assessment AND Plan Problems 1. Encounter for supervision of other normal in first trimester Z34.81 PRR MAEVE 01/15/19 BF Gallo 2. 12 weeks gestation of Z3A.12 considering NIPT, AFP 3. 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 see problem list details for updated plan management information and see below for orders placed at this visit. GA appropriate handout given. Orders Orders: Medications New: Coding Level of Care Code OB Routine Diagnoses Encounter for supervision of other normal in first trimester Z34.81 Normal : other normal Trimester: first trimester 12 weeks gestation of Z3A.12 Weeks of gestation: 12 weeks Herpes simplex vulvovaginitis A60.04 Herpes simplex infection site: vulvovaginitis 07/10/18 1128 <Electronically signed by Racheal Hartmann MD> Date Racheal Hartmann MD Cosigner Signature: Date (if applicable) CC: Observed: 07/05/2018 Status: F Source: [place] CULTURE, URINE 6:27 PM [facility] REPOSITORY Urine Culture ORGANISM 1: Mixed Gram Positive Organisms Grassflat Count 1000-10,000 MIX CULTURE Mixed contaminants. Submit a new specimen if indicated. Performed By: #### M100.0650 #### [facility] [address] [place], [address] ABDOMEN/PELVIS WITH Observed: 07/05/2018 Status: F Source: [place] CONTRAST 3:37 PM [facility] REPOSITORY [facility] Imaging Services [address] [place] [address] Abdomen/Pelvis WITH Contrast MR#: [id number] Acct: [id number] Name: SCHUYLER MCKEON Rep #: [id number] : 1990 F 27 From: Smith Hopper MD PCP: Naheed Kam DO Status: REG CLI Study: Abdomen/Pelvis WITH Contrast Date of Exam: 07/05/18 Exam# [id number] Ordering Dr: Cindy Vivas FAMILY LAWYER-C STUDY: CT ABDOMEN AND PELVIS WITH CONTRAST REASON FOR EXAM: Female, 27 years old. Right-sided flank pain, patient is 12 weeks RADIATION DOSAGE (If Supplied By Facility): CTDIvol = ( 14.66 ) mGy, DLP = ( 582.44 ) mGycm TECHNIQUE: Transaxial images were obtained from the dome of the diaphragm to the symphysis pubis with oral contrast. 100ML ml of Isovue 300 contrast was administered. Sagittal and coronal images were reconstructed. Individualized dose optimization techniques were used for this CT. COMPARISON: Previous ultrasounds FINDINGS: The visualized lung bases are unremarkable. The visualized portions of the heart are within normal limits. Normal liver. Normal gallbladder and extrahepatic biliary system. Normal spleen. Normal pancreas. Normal bilateral adrenal glands. Normal right kidney. Normal left kidney. Normal visualized stomach. Normal small intestine. Normal colon. There is non-visualization of the appendix. Normal abdominal aorta. Normal inferior vena cava. Normal retroperitoneum. Normal urinary bladder. [place] uterus noted Normal abdominal wall. Normal osseous structures. CT/Abdomen/Pelvis WITH Contrast IMPRESSION: No suspicious solid organ abnormality, specifically no obstructive uropathy. No CT evidence of an acute inflammatory process, adnexa not visualized. Gravid uterus noted Electronically Signed: Charles Hopper MD at 18:15 EDT , Service support , CC: KIA Vivas; Naheed Kam DO Horse Race Timer: Signed CBC W/DIFF, AUTOMATED Collected: 07/05/2018 Status: F Source: [place] 3:30 PM [facility] REPOSITORY TYPE CODE TESTS RESULT OUT OF RANGE REFERENCE UNITS LAB L100.1000 4.4-11.0 K/mm3 High WBC 11.3 LAB L100.1200 4.2-5.4 M/mm3 Normal RBC 4.62 LAB L100.1300 12.0-15.0 g/dl Normal HGB 12.2 LAB L100.1400 37-47 % Normal HCT 38.7 LAB L100.1500 81-99 fL Normal MCV 83.8 LAB L100.1600 27.0-32.0 pg Low MCH 26.4 LAB L100.1700 32-36 g/gl Low MCHC 31.5 LAB L100.1810 11.6-14.6 % Normal RDW CV 13.6 LAB L100.1820 35.1-43.9 fl Normal RDW SD 41.2 LAB L100.1900 150-450 K/mm3 Normal PLT 243 LAB L100.2000 6.2-12.0 fl Normal MPV 9.0 LAB L100.2100 47-70 % High NEUT% 74.2 LAB L100.2200 19-41 % Normal LY% 19.6 LAB L100.2300 0-10 % Normal MONO% 5.6 LAB L100.2400 0-5 % Normal EO% 0.4 LAB L100.2500 0-1 % Normal BASO% 0.1 LAB L100.2550 0.0-0.9 % Normal IM GRAN % 0.100 Result Comment: IG% - Immature Granulocytes (promyelocytes, myelocytes and metamyelocytes) > 1% indicates that a LEFT SHIFT is Present. LAB L100.2620 2.0-7.7 X10 3/uL High Absolute Neut 8.4 LAB L100.2720 0.83-4.51 X10 3/ul Normal Absolute Lymph 2.22 Performed By: #### L100.0100 #### [facility] [address] [place], [address] SUPPLY OFFICER OFFICE VISIT Observed: 07/05/2018 Status: F Source: [place] REPORT 3:29 PM [facility] REPOSITORY [facility] [address] [place] [address] OFFICE VISIT Date of Service: 07/05/18 MR#: [id number] Acct: [id number] Name: SCHUYLER MCKEON Rep #: [id number] : 1990 Provider: KIA Vivas Age/Sex: 27/F Location: [facility] Status: Signed Intake Vital Signs07/05/18 Height 5 ft 07/05/18 Weight: 125 lb 2 oz 07/05/18 Body Mass Index (BMI) 24.4 07/05/18 Blood Pressure 104/58 L Intake Visit Reasons: SEVERE CRAMPING Candy Feeder Required: No Is patient in pain?: Yes Allergies hydromorphone [From Dilaudid] Adverse Reaction (Verified 07/05/18 14:20) Other oxycodone [From Percocet] Adverse Reaction (Verified 07/05/18 14:20) Nausea Medications Naproxen [Naprosyn] 250 - 500 mg PO Q8H PRN PRN #30 tab 03/09/18 [Rx Confirmed 07/05/18] Sumatriptan Succinate 10 mg PO PRN PRN 04/06/18 [History Confirmed 07/05/18] valacyclovir 500 mg tablet 500 mg PO BID #20 tab 04/20/18 [Rx Confirmed 07/05/18] zolmitriptan 2.5 mg tablet 2.5 mg PO ONCE 04/20/18 [History Confirmed 07/05/18] ondansetron HCl 4 mg tablet 4 mg PO Q6H PRN #60 tab 06/13/18 [Rx Confirmed 07/05/18] Last Menstral Period: 04/10/18 Zika: Zika virus screening: Negative : No PFSH PFSH Medical History Anxiety and depression (Acute) Frequent headaches (Acute) Mass of head (Acute) Urinary tract infection (Acute) Yeast infection (Acute) Surgical History History of dilation and curettage (Acute) lumpectomy back of head (Resolved) Family History Father Diabetes Hypertension Mother Hypertension Social History Smoking Status: Never smoker what type of physical activity do you participate in: other details: cardio frequency: 5-6 times per week Pregancy History 2 Elective abortions 1 Hx Para Spontaneous abortions HPI SEVERE CRAMPING: Details: SCHUYLER MCKEON is a 27 year old who presents for work in lower right pelvic and flank pain OB Visit MAEVE Calculator Estimated Delivery Date 01/15/19 Based on LMP (certain) 04/10/18 Current WG 12w 2d Number 1 Expected Delivery Route/Plan Specific Issue/Plans flu vaccine: declines tdap vaccine: [] rhogam: [] LARC form signed: [] labor support person: Gallo pain management: [] cut cord/dad catch: [] : [] PP control planned: [] special requests: [] Initial Weight: Not Recorded Date Weight BP Urine PrFHR FuHt Pres MoCTX DilationFetal StVisit NoProviderComments E ot v te GA G Effac lucose ed Visit Notes Visit Date: 07/05/18 Work in for sudden onset lower right pelvic pain and flank pain. Afebrile. Denies vaginal spotting bleeding. Good FM noted on US with FHT CHARLY Valle on 07/05/18 Visit Date: 06/13/18 No visit notes to display ACOG First Trimester First Trimester: Discussed Diagnostics Diagnostics Labs Blood Type A POSITIVE 06/13/18 Antibody Screen NEGATIVE 06/13/18 Hct Pending 07/05/18 Hgb Pending 07/05/18 Rubella IgG Antibody 100.2 IU/mL 06/13/18 RPR NONREACTIVE (NONREACTIVE) 06/13/18 Hep Bs Antigen Negative (Negative) 06/13/18 Chlam trachomat DNA PCR Negative (Negative) 06/13/18 N.gonorrhoeae DNA (PCR) Negative (Negative) 06/13/18 Details: HIV: Urine Culture: Sequential Screen: NIPT Screen: Exam GI Other: Tender lower right pelvis. Some rebounding. No LLQ pain or referred pain. Positive CVA lower right flank. Results [email or web address] Office Urine Glucose Negative Last Edit by Simin Marin on 07/05/18 14:24 Office Urine Protein Negative Last Edit by Simin Marin on 07/05/18 14:24 BMSUA Office Urine Color Yellow Last Edit by Mouna Douglas on 07/05/18 15:02 Office Urine Clarity Cloudy Last Edit by Mouna Douglas on 07/05/18 15:02 Assessment AND Plan Problems 1. Pelvic pain R10.2 2. Flank pain R10.9 Plan Trace hematuria-send culture Afebrile Stat CBC CT rule out kidney stone, appendicitis. Page Dr. Hartmann with results. Orders Orders: Coding Level of Care Code OB Routine Diagnoses Pelvic pain R10.2 Flank pain R10.9 07/05/18 1529 <Electronically signed by Cindy PARKS> Date Cindy PAKRS Cosigner Signature: Date (if applicable) CC: CT/NG WCH BY PCR Collected: 06/13/2018 Status: F Source: [place] 6:25 PM [facility] REPOSITORY TYPE CODE TESTS RESULT OUT OF RANGE REFERENCE UNITS LAB L8200.2100 Negative Normal Chlam Negative Trac PCR LAB L8200.2200 Negative Normal NG by Negative PCR Performed By: #### L8200.2000 #### [facility] [address] [place], [address] Observed: 06/13/2018 Status: F Source: [place] CULTURE, URINE 6:25 PM [facility] REPOSITORY Urine Culture Below infection level. ORGANISM 1: Mixed Gram Positive Organisms Grassflat Count 1000-10,000 Performed By: #### M100.0650 #### [facility] [address] [place], [address] SUPPLY OFFICER OFFICE VISIT Observed: 06/13/2018 Status: F Source: [place] REPORT 2:42 PM [facility] REPOSITORY [facility] [address] [place] [address] OFFICE VISIT Date of Service: 06/13/18 MR#: [id number] Acct: [id number] Name: SCHUYLER MCKEON Rep #: [id number] : 1990 Provider: KIA Vivas Age/Sex: 27/F Location: [facility] Status: Signed Intake Vital Signs06/13/18 Height 5 ft 06/13/18 Weight: 120 lb 6 oz 06/13/18 Body Mass Index (BMI) 23.5 06/13/18 Blood Pressure 100/60 Intake Visit Reasons: NOB - LMP 04/10 Candy Feeder Required: No Is patient in pain?: No Allergies hydromorphone [From Dilaudid] Adverse Reaction (Verified 06/13/18 10:56) Other oxycodone [From Percocet] Adverse Reaction (Verified 06/13/18 10:56) Nausea Medications Naproxen [Naprosyn] 250 - 500 mg PO Q8H PRN PRN #30 tab 03/09/18 [Rx Confirmed 06/13/18] Sumatriptan Succinate 10 mg PO PRN PRN 04/06/18 [History Confirmed 06/13/18] valacyclovir 500 mg tablet 500 mg PO BID #20 tab 04/20/18 [Rx Confirmed 06/13/18] zolmitriptan 2.5 mg tablet 2.5 mg PO ONCE 04/20/18 [History Confirmed 06/13/18] ondansetron HCl 4 mg tablet 4 mg PO Q6H PRN #60 tab 06/13/18 [Rx Confirmed 06/13/18] Last Menstral Period: 04/10/18 Zika: Zika virus screening: Negative : Yes PFSH PFSH Medical History Anxiety and depression (Acute) Frequent headaches (Acute) Mass of head (Acute) Urinary tract infection (Acute) Yeast infection (Acute) Surgical History History of dilation and curettage (Acute) lumpectomy back of head (Resolved) Family History Father Diabetes Hypertension Mother Hypertension Social History Smoking Status: Never smoker what type of physical activity do you participate in: other details: cardio frequency: 5-6 times per week Pregancy History 2 Elective abortions 1 Hx Para Spontaneous abortions HPI NOB - LMP 04/10: Details: SCHUYLER MCKEON is a 27 year old who presents for New OB visit. OB Visit MAEVE Calculator Estimated Delivery Date 01/15/19 Based on LMP (certain) 04/10/18 Current WG 9w 1d Number 1 Comments: NOB US per Dr. Hartmann: CRL 18.2 mm consistent with 8wk 4 day. Keep MAEVE 01/15/19. FHT 168 Expected Delivery Route/Plan Specific Issue/Plans flu vaccine: declines tdap vaccine: [] rhogam: [] LARC form signed: [] labor support person: Gallo pain management: [] cut cord/dad catch: [] : [] PP control planned: [] special requests: [] Initial Weight: Not Recorded Date Weight BP Urine PrFHR FuHt Pres MoCTX DilationFetal StVisit NoProviderComments E ot v te GA G Effac lucose ed Menstrual History Last Menstral Period: 04/10/18 Reported LMP: definite Normal amount/duration: Yes On hormonal BC at conception: No hCG+: 04/09/18 Antepartum Record Genetic Screening: Congenital Heart Defect: Other, Neural Tube Defect: Other, Hemoglobinopathy Or Carrier: Other, Cystic Fibrosis: Other, Chromosome Abnormality: Other, Norberto-Sachs: Other, Hemophilia: Other, Intellectual Disability/Autism: Other, Recurrent Loss/Stillbirth: Other, Other Structural Defect: Other, Other Genetic Disease: Other, Maternal Metabolic Disorder: Other Infection History: Live with someone with TB or Exposed to TB: No, Patient or Partner has history of Genital Herpes: Yes (Patient with genital herpes), Rash or Viral illness since last mentrual period: No, Prior GBS-Infected child: No, History of STD: Yes (HSV), HIV Infection: No, History of Hepatitis: No, Recent travel outside of [place]: No, Concern for Hep exposure: No, Varicella immune: Yes (chicken pox as child) Medical History Medical History: Positive: Drug/latex allergies/reactions (dilaudid, percocet), Operations/hospitalizations (cyst removed back of head), Negative: Diabetes, Hypertension, Heart disease, Auto-immune disorder, Kidney disease/UTI, Neurologic/epilepsy, Psychiatric, Depression/ depression, Hepatitis/liver disease, Varicosities/phlebitis, Thyroid dysfunction, Trauma/domestic violence, History of blood transfusions, D (Rh) Sensitized, Pulmonary (e.g.,TB,Asthma), Seasonal allergies, Breast, Drawbridge Operator surgery, Anesthetic complications, History of abnormal pap, Uterine anomaly/nilam, Infertility, Anti-retroviral treatment, Relevant family history, Other ACOG First Trimester First Trimester: Desire for , Alcohol, Tobacco Cessation, Illicit/Recreational Drug/Substance Use, Intimate Partner Violence, Barriers to care, Unstable Housing, Communication Barriers, Environmental/Work Hazards, Anticipated Course of Care, Nurtrition and weight gain, Toxoplasmosis Precations, Use of Any medications, Sexual activity, Exercise, Dental Care, Sauna/Hot tub use, Seat Belt use, Childbirth classes/Hospital facilities, Travel, Indications for US and Screening for Aneuploidy; discussed ROS Const Reports as per HPI Card Denies chest pain, Denies shortness of breath Resp Denies shortness of breath GI Denies change in stools Denies difficulty urinating, Denies abnormal vaginal bleeding, Denies vaginal odor, Denies vaginal itching, Denies vaginal discharge Exam Const General: cooperative, healthy appearing, well developed Nutritional Appearance: average body habitus, well nourished Orientation: oriented x3 Neck Neck: normal visual inspection Neck mass: No Thyroid: thyroid normal Chest Chest palpation AND inspection: normal inspection of the chest Breast inspection: normal inspection of the breasts, normal inspection of the axillae Resp Effort AND Inspection: normal respiratory effort GI Inspection: normal to inspection Palpation: soft, nontender, no masses External Female Exam: normal external appearance, normal appearance of the urethra Urethra: normal appearance of the urethra Speculum Exam - Vagina: normal appearance of the vagina, normal vaginal discharge Speculum Exam - Cervix: normal appearance of the cervix, closed cervix, other (thin prep pap with reflex HPV, GCC collected) Bimanual Exam- Vagina AND Uterus: normal bimanual exam, uterine shape normal, uterine size normal (10 weeks) Bimanual Exam- Adnexa, other: normal adnexae, no adnexal masses, adnexae non-tender Skin General: no rashes or lesions noted, turgor normal Assessment AND Plan Problems 1. Encounter for supervision of other normal in first trimester Z34.81 Grav 2/0 EDC:01/15/19 BF Gallo 2. 9 weeks gestation of Z3A.09 Plans NIPT, AFP 3. Herpes simplex vulvovaginitis A60.04 Suppressive valtrex 36 weeks 4. Nausea/vomiting in O21.9 Plan Patient oriented to practice and discussed care expectations and screenings. ACOG book offered to patient. labs and 19-20 week anatomy ultrasound ordered Genetic screening offered to patient and patient chose: will do NIPT, AFP Zofran RX and reviewed other management options for nausea RTO 4 weeks Medications New: Coding Level of Care Code Off vis,est,level 4 Diagnoses Encounter for supervision of other normal in first trimester Z34.81 Normal : other normal Trimester: first trimester 9 weeks gestation of Z3A.09 Weeks of gestation: 9 weeks Herpes simplex vulvovaginitis A60.04 Herpes simplex infection site: vulvovaginitis Nausea/vomiting in O21.9 06/13/18 1442 <Electronically signed by Cindy PARKS> Date Cindy PARKS Cosigner Signature: Date (if applicable) CC: CBC W/DIFF, AUTOMATED Collected: 06/13/2018 Status: F Source: [place] 12:28 PM [facility] REPOSITORY TYPE CODE TESTS RESULT OUT OF RANGE REFERENCE UNITS LAB L100.1000 4.4-11.0 K/mm3 Normal WBC 10.3 LAB L100.1200 4.2-5.4 M/mm3 Normal RBC 4.84 LAB L100.1300 12.0-15.0 g/dl Normal HGB 12.8 LAB L100.1400 37-47 % Normal HCT 40.2 LAB L100.1500 81-99 fL Normal MCV 83.1 LAB L100.1600 27.0-32.0 pg Low MCH 26.4 LAB L100.1700 32-36 g/gl Low MCHC 31.8 LAB L100.1810 11.6-14.6 % Normal RDW CV 13.0 LAB L100.1820 35.1-43.9 fl Normal RDW SD 39.2 LAB L100.1900 150-450 K/mm3 Normal PLT 288 LAB L100.2000 6.2-12.0 fl Normal MPV 9.5 LAB L100.2100 47-70 % High NEUT% 74.8 LAB L100.2200 19-41 % Low LY% 18.3 LAB L100.2300 0-10 % Normal MONO% 6.1 LAB L100.2400 0-5 % Normal EO% 0.4 LAB L100.2500 0-1 % Normal BASO% 0.2 LAB L100.2550 0.0-0.9 % Normal IM GRAN % 0.200 Result Comment: IG% - Immature Granulocytes (promyelocytes, myelocytes and metamyelocytes) > 1% indicates that a LEFT SHIFT is Present. LAB L100.2620 2.0-7.7 X10 3/uL Normal Absolute Neut 7.7 LAB L100.2720 0.83-4.51 X10 3/ul Normal Absolute Lymph 1.88 Performed By: #### L100.0100 #### [facility] [address] [place], [place], [address] TYPE AND SCREEN Collected: 06/13/2018 Status: F Source: [place] 12:28 PM [facility] REPOSITORY Order Comment: Reason for Type AND Screen/Red Cells: TYPE CODE TESTS RESULT OUT OF RANGE REFERENCE UNITS LAB B10.0800 A Normal BLOOD TYPE GEL POSITIVE LAB B100.4000 Normal Antibody NEGATIVE Screen Performed By: #### B101.7450 #### [facility] [address] [facility] [place], [address] #### L3100.0390 #### [facility] (refer to report for specific site) refer to report for address and phone number HEPATITIS B SURFACE Collected: 06/13/2018 Status: F Source: [place]UL[place]NA AG 12:28 PM [facility] REPOSITORY TYPE CODE TESTS RESULT OUT OF RANGE REFERENCE UNITS LAB L3100.0400 Negative Normal HB Negative SURF AG Result Comment: Performed at: [facility] [id number] Foot Worker: Gil Alves PhD, Phone: [phone] Performed By: #### B101.7450 #### [facility] [address] [place], [place] [address]. [facility] [address] #### L3100.0390 #### [facility] (refer to report for specific site) refer to report for address and phone number RUBELLA IGG Collected: 06/13/2018 Status: F Source: [place] 12:28 PM [facility] REPOSITORY TYPE CODE TESTS RESULT OUT OF RANGE REFERENCE UNITS LAB L509.4000 IU/mL Normal Rubella IgG 100.2 Result Comment: Antibody results Interpretation of Immune Status < 5 IU/ml Presumed Non-immune 5 - < 10 IU/ml Equivocal > or = 10 IU/ml Presumed Immune Performed By: #### L509.4000, L3890.6005, L700.5000 #### [facility] [address] [place], [place] [address]. [facility] [address] HIV - [facility] Collected: 06/13/2018 Status: F Source: [place] 12:28 PM [facility] REPOSITORY TYPE CODE TESTS RESULT OUT OF RANGE REFERENCE UNITS LAB L3890.6005 Nonreactive Normal HIV - [facility] Non-Reactive Performed By: #### L509.4000, L3890.6005, L700.5000 #### [facility] [address] [place], [address] RAPID PLASMIN REAGIN Collected: 06/13/2018 Status: F Source: [place] (RPR) 12:28 PM [facility] REPOSITORY TYPE CODE TESTS RESULT OUT OF REFERENCE UNITS RANGE LAB L700.5000 NONREACTIVE NONREACTIVE Normal RPR Performed By: #### L509.4000, L3890.6005, L700.5000 #### [facility] [address] [place], [place], [address] PAP I-G W/RFX Collected: 06/13/2018 Status: F Source: JUL[place]NA HRHPV-APTIMA 11:00 AM [facility] REPOSITORY Order Comment: CYTOLOGY INFORMATION: - CLINICAL INFORMATION: - DATE LMP/MENOPAUSE: 04/10/18 LMP - COLLECTION VIAL: Thin Prep Vial - CARRIER DRIVER SOURCE: CERVICAL - COLLECTION TECHNIQUE: CX BROOM ONLY Specimen Comment: [id number] Specimen Comment: Source.............Cervix Specimen Comment: LMP / Prev Treat...[id number] Specimen Comment: No. of containers..01 ThinPrep Vial TYPE CODE TESTS RESULT OUT OF RANGE REFERENCE UNITS LAB L7400.0800 . Normal DIAGN Comment Result Comment: NEGATIVE FOR INTRAEPITHELIAL LESION AND MALIGNANCY. LAB L7400.0900 . Normal ADEQ Comment Result Comment: Satisfactory for evaluation. Endocervical and/or squamous metaplastic cells (endocervical component) are present. LAB L7400.1400 . Normal PERFORM Comment Result Comment: Stephanie Woodard, Labor Contract Analyst (ASCP) LAB L7400.2575 . Normal TEST METHOD Comment Result Comment: This liquid based ThinPrep(R) pap test was screened with the use of an image guided system. LAB L7400.2600 . Normal . COMM LAB L7400.2700 . Normal PAPSMR Comment Result Comment: The Pap smear is a screening test designed to aid in the detection of premalignant and malignant conditions of the uterine cervix. It is not a diagnostic procedure and should not be used as the sole means of detecting cervical cancer. Both false-positive and false-negative reports do occur. LAB L7400.2800 . Normal HPV RFLX Comment Result Comment: The HPV DNA reflex criteria were not met with this specimen result therefore, no HPV testing was performed. Performed at: [address] [id number] Foot Worker: Izzy Sena MD, Phone: [phone] Performed By: #### L7400.0353 #### [facility] (refer to report for specific site) refer to report for address and phone number PLASTIC SURGERY Observed: 05/08/2018 Status: F Source: [place] VISIT REPORT 8:54 PM [facility] REPOSITORY [facility] [address] [place] [address] OFFICE VISIT Date of Service: 04/20/18 MR#: [id number] Acct: [id number] Name: SCHUYLER MCKEON Rep #: [id number] : 1990 Provider: Elia Perrin MD Age/Sex: 27/F Location: [facility] Status: Signed Intake Vital Signs04/20/18 Height 5 ft 04/20/18 Weight: 117 lb 8 oz Intake Visit Reasons: evaluation painful thickening right occipital scalp Candy Feeder Required: No Accompanied by: None Is patient in pain?: Yes (LOWER SCALP PAIN THROBBING ) Pain scale (1-10): 4 Allergies hydromorphone [From Dilaudid] Adverse Reaction (Verified 04/06/18 06:23) Other oxycodone [From Percocet] Adverse Reaction (Verified 03/24/18 09:36) Nausea Medications Naproxen [Naprosyn] 250 - 500 mg PO Q8H PRN PRN #30 tab 03/09/18 [Rx Confirmed 04/06/18] Prednisone [Deltasone] 20 mg PO BID #6 tab 04/06/18 [Rx] Sumatriptan Succinate 10 mg PO PRN PRN 04/06/18 [History Confirmed 04/06/18] norelgestromin 150 mcg-e.estradiol 35 mcg/24 hr weekly transderm patch 1 patch TRANSDERMAL Q7D #12 patch 04/07/18 [Rx] methylprednisolone 4 mg tablets in a dose pack See Label Instructions PO PER PKG DIR #21 tab 04/20/18 [Rx Confirmed 04/20/18] valacyclovir 500 mg tablet 500 mg PO BID #20 tab 04/20/18 [Rx Confirmed 04/20/18] zolmitriptan 2.5 mg tablet 2.5 mg PO ONCE 04/20/18 [History Confirmed 04/20/18] PFSH Medical History Anxiety and depression (Acute) Frequent headaches (Acute) Mass of head (Acute) Urinary tract infection (Acute) Yeast infection (Acute) Surgical History History of dilation and curettage (Acute) lumpectomy back of head (Resolved) Family History Father Diabetes Hypertension Mother Hypertension Social History Smoking Status: Never smoker what type of physical activity do you participate in: other details: cardio frequency: 5-6 times per week HPI evaluation painful thickening right occipital scalp : Details: HISTORY OF PRESENT ILLNESS 27 year old woman presents with complaints of persistent headaches and painful thickening right occipital scalp along with blurred vision and some numbness on the right side of her face. She was recently in the ED for her headaches and a CT scan was done which was normal. She is scheduled to see her Neurologist on 05/12/18 for further evaluation of her headaches. 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 Today she also has complaints of blurred vision, eye twitching, right cheek numbness. She presents today for further evaluation and treatment. REVIEW OF SYSTEMS General - Denies fever, weight loss. Has fatigue. ENT - Denies nasal congestion and sore throat. Eyes - Denies cataracts. Denies glaucoma. Has blurred vision and eye twitching. Endocrine - Denies excessive thirst or urination. Skin - Had benign bone cyst removed from right occipital scalp in 10/23. Musculoskeletal - Denies joint pain, joint stiffness, weakness of muscles and joints, back pain, and arthritis. Neuro - Has headaches. Has lightheadedness. Has some right cheek numbness. Has right eye twitching. Cardiovascular - Denies chest pain. Has fatigue. Has lightheadedness. Denies shortness of breath with exertion. Psych - Has anxiety. Has some depression. Respiratory - Denies shortness of breath. Denies chronic cough. Gastrointestinal - Denies nausea, vomiting, diarrhea, and constipation. Hematologic - Denies abnormal bruising and bleeding. Genitourinary - Denies urinary frequency. Has some hematuria. Has UTI's and recurrent vaginitis. PHYSICAL EXAMINATION General - Alert and oriented. HEENT - PERRL. EOMI. Throat is clear. On the right occipital scalp is some thickening from previous excision of a benign bone cyst in 10/23. No discrete mass palpable. No evidence of infection. Slight tenderness to palpation. No ulceration. No sensory deficits. Has some decreased sensation right cheek extending down to neck with pinprick. Can smile symmetrically but there is very slight decrease on the right. Neck - Supple and nontender. No cervical adenopathy. Lungs - Clear to auscultation. Heart - Regular rate and rhythm. Abdomen - Soft and nondistended. Extremities - FROM. No axillary adenopathy. Radial pulses are palpable. Neuro - CN II - XII grossly intact except for some decreased sensation of CN V on the right. ASSESSMENT 1. Mild painful scar thickening right occipital scalp after excision benign bone cyst. 2. Headaches. 3. Blurred vision with right eye twitching. 4. Mild numbness right cheek extending to neck (CN V) with trigeminal neuropathy. 5. 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 6. Benign right occipital bone cyst. PLAN CT reviewed. No need for surgical intervention at this time with her sore scar thickening right occipital scalp. If persistent, would like an MRI. With regard to these other symptoms, she sees her Neurologist on 05/12/18 to further evaluate her headaches as well as these other symptoms. Her blurred vision could be related to her headaches. Her right eye twitching could be indicative of early MS. Her facial nerve asymmetry with smiling could be an early Argueta's palsy. Will observe. Will begin a Medrol dose pack and wrote a script for Valtrex. Followup one month. Assessment AND Plan Problems 1. Migraine G43.909 2. Blurred vision, right eye H53.8 3. 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 Bone cyst M85.60 05/08/182053 <Electronically signed by Eila Perrin MD> Date Elia Perrin MD Cosigner Signature: Date (if applicable) CC: Naheed Kam DO; Amos Santoro MD CBC, EMPLOYEE Collected: 04/28/2018 Status: F Source: [place] 11:59 AM [facility] REPOSITORY TYPE CODE TESTS RESULT OUT OF RANGE REFERENCE UNITS LAB L100.1000 4.4-11.0 K/mm3 Normal WBC 8.9 LAB L100.1200 4.2-5.4 M/mm3 Normal RBC 5.00 LAB L100.1300 12.0-15.0 g/dl Normal HGB 13.2 LAB L100.1400 37-47 % Normal HCT 43.5 LAB L100.1500 81-99 fL Normal MCV 87.0 LAB L100.1600 27.0-32.0 pg Low MCH 26.4 LAB L100.1700 32-36 g/gl Low MCHC 30.3 LAB L100.1810 11.6-14.6 % Normal RDW CV 12.9 LAB L100.1820 35.1-43.9 fl Normal RDW SD 41.1 LAB L100.1900 150-450 K/mm3 Normal PLT 272 LAB L100.2000 6.2-12.0 fl Normal MPV 9.8 LAB L100.2110 47-70 % High NEUT% 71.1 LAB L100.2210 19-41 % Normal LY% 21.9 LAB L100.2310 0-10 % Normal MONO% 5.9 LAB L100.2410 0-5 % Normal EO% 0.9 LAB L100.2510 0-1 % Normal BASO% 0.2 LAB L100.2620 2.0-7.7 X10 3/uL Normal Absolute Neut 6.3 LAB L100.2720 0.83-4.51 X10 3/ul Normal Absolute Lymph 1.94 Performed By: #### L100.0200 #### [facility] [address] [place], [address] URINALYSIS, EMPLOYEE Collected: 04/28/2018 Status: F Source: [place] 11:59 AM [facility] REPOSITORY TYPE CODE TESTS RESULT OUT OF RANGE REFERENCE UNITS LAB L400.3000 Yellow COLOR Normal Yellow LAB L400.3050 Clear Normal CLARITY Sl. Cloudy LAB L400.3200 Normal mg/dl Normal GLUCOSE, UR Normal LAB L400.3300 Negative mg/dL Normal BILIRUBIN URINE Negative LAB L400.3400 Negative mg/dl Normal KETONE UR Negative LAB L400.3465 1.002-1.030 Normal SP.GR. DIPSTX 1.015 LAB L400.3550 5.0 - 8.0 pH UR Normal 6.5 LAB L400.3600 Negative mg/dl PROT Normal DIPSTX Negative LAB L400.3700 Normal mg/dl Normal UROBILI Normal LAB L400.3750 Negative Normal NITRITE UR Negative LAB L400.3780 Negative /ul High 10 OCCULT BLOOD-UR LAB L400.3800 Negative /ul High LEUK 25 ESTERASE Performed By: #### L400.0100 #### [facility] [address] [place], [place], [id number] NICOTINE URINE DRUG Collected: 04/28/2018 Status: F Source: [place] SCREEN 11:59 AM [facility] REPOSITORY TYPE CODE TESTS RESULT OUT OF RANGE REFERENCE UNITS LAB L505.6250 TO BE Normal CONFIRMED Result Comment: CONFIRMATORY TESTING FOR ALL POSITIVE URINE DRUG SCREEN RESULTS WILL ONLY BE SENT OUT UPON PHYSICIAN ORDER. The results of Urine Drug Screen methods provide only preliminary analytical test results. A more specific alternate chemical method must be used in order to obtain a confirmed analytical result. Gas chromatography/mass spectrometery (GC/MS) is the preferred confirmatory method. Clinical consideration and professional judgement should be applied to any drug of abuse test result, particularly when preliminary positive results are used. LAB L505.6270 <200 ng/mL Normal COT DRG Negative SCREEN Result Comment: Cotinine is the first-stage metabolite of Nicotine. Performed By: #### L505.6240 #### [facility] [address] [facility] [place], [place], [id number] EMPLOYEE PROFILE Collected: 04/28/2018 Status: F Source: [place] 11:59 AM [facility] REPOSITORY TYPE CODE TESTS RESULT OUT OF RANGE REFERENCE UNITS LAB L501.0100 74-106 mg/dL Low GLU 71 Result Comment: Please note revised GLUCOSE reference range effective 2017. LAB L501.1000 7-18 mg/dL Normal BUN 11 LAB L501.1100 0.55-1.02 mg/dL Normal CREAT,SERUM 0.72 Result Comment: The validity of the calculated GFR AND GFRAA in patients over 70 years has not been determined. Clinical correlation is essential. LAB L501.1110 >60 mL/min Normal EST GFR 102 Result Comment: Non- GFR Calc LAB L501.1115 >60 mL/min Normal EST GFR - AA 123 Result Comment: GFR Calc LAB L501.1300 10-20 RATIO Normal BUN/CRE 15.2 LAB L501.1400 2.6-6.0 mg/dL Normal URIC 5.1 Result Comment: The drugs N-Acetylcysteine and Metamizole may falsely depress this assay. LAB L501.1500 6.4-8.2 g/dL Normal T PROT 7.3 LAB L501.1800 3.2-5.0 g/dL Normal ALB 3.5 LAB L501.1950 2.2-4.2 g/dL Normal GLOB 3.8 LAB L501.2000 0.9-2.4 RATIO Normal A/G 0.9 LAB L501.2200 8.5-10.1 mg/dL Normal CA 8.7 LAB L501.2300 2.5-4.9 mg/dL Normal PHOS 2.6 LAB L501.4100 15-37 U/L Low AST 13 LAB L501.4305 45-117 U/L Normal ALK P 52 LAB L501.4405 13-56 U/L Normal ALT 19 LAB L501.4600 0.20-1.00 mg/dL Normal T BILI 1.00 LAB L501.4700 0.00-0.30 mg/dL Normal D BILI 0.20 LAB L501.4900 200 mg/dL Normal CHOL 175 Result Comment: <200 mg/dL Desirable 200-240 mg/dL Borderline >240 mg/dL High Risk LAB L501.5000 mg/dL Normal TRIG 77 Result Comment: The drugs N-Acetylcysteine and Metamizole may falsely depress this assay. Serum Triglycerides Reference Interval Normal <150 mg/dL Borderline high 150 - 199 mg/dL High 200 - 499 mg/dL Very High > or = 500 mg/dL LAB L501.5300 136-145 mmol/L Normal NA 141 LAB L501.5600 3.5-5.1 mmol/L Normal K 4.3 LAB L501.5900 98-107 mmol/L Normal CL 107 LAB L501.6100 21.0-32.0 mmol/L Normal CO2 26.0 LAB L501.6200 5-15 Normal 8 GAP LAB L501.6400 mg/dL Normal HDL 67 Result Comment: The drugs N-Acetylcysteine and Metamizole may falsely depress this assay. Reference Range HDL <40 mg/dL Low HDL Cholesterol HDL >or= 60 mg/dL High HDL Cholesterol LAB L501.6475 Normal CHOL:HDL 2.60 LAB L501.6500 0-130 mg/dL Normal LDL 93 LAB L501.6600 5-40 mg/dL Normal VLDL 15 LAB L504.2610 84-246 U/L Normal LDH 153 Performed By: #### L500.2900 #### [facility] [address] [facility] [place], [address] DISCHARGE INSTRUCTION Observed: 04/06/2018 Status: F Source: [place] 8:58 AM [facility] REPOSITORY [facility] Medical Records Department [address] [place] [address] Discharge Instruction 04/06/18 0854 MR#: [id number] Acct: [id number] Name: SCHUYLER MCKEON Rep #: [id number] : 1990 27 From: Sneha Timmons DO PCP: Naheed Kam DO Status: REG ER ED Disposition - Plan for ED Patient: Chief Complaint: Headache Instructions: ED Headache Migraine Prescriptions: Prednisone [Deltasone] 20 mg PO BID #6 tab Referrals: Elia Perrin MD [STAFF PHYSICIAN] - As Needed Naheed Kam DO [Primary Care Provider] - As Needed What to do if you have Problems For any increased pain, shortness of breath, bleeding, nausea or vomiting, chest pain, or any unexpected problems, contact your Primary Care Provider. Call [facility] ([phone]) or report to the closest Emergency Room. Call 911 if necessary. 04/06/18 0858 <Electronically signed by Sneha Timmons DO> Date Sneha Timmons DO Cosigner Signature (If Indicated): Date CC: Naheed Kam DO EMERGENCY DEPARTMENT Observed: 04/06/2018 Status: F Source: [place] SUMMARY 8:54 AM [facility] REPOSITORY [facility] Medical Records Department [address] [place] [address] Emergency Department Summary 04/06/18 0852 MR#: [id number] Acct: [id number] Name: SCHUYLER MCKEON Rep #: [id number] : 1990 27 From: Sneha Timmons DO PCP: Naheed Kam DO Status: REG ER - ER Visit Summary Date of Service: 04/06/18 Chief Complaint: [Addendum to initial dictation by Dr. Monroy] History of Present Illness: The patient is a 27 F [patient presented with migraine. Patient has been having a headache off and on for a week. Patient had a CT scan ordered and care turned over to me this morning awaiting CT scan results. Her CT scan of brain was normal. Patient had MRI, MRA of head in October of this year that were normal. Patient initially given Compazine and Benadryl in the emergency department IM and did not get much relief of her symptoms with that. I gave patient an IV with a liter normal same fluid bolus as well as Reglan and Toradol as well as Decadron 10 mg IV. Patient's symptoms significantly improved and now rates her headache her 2 or 3 out of 10.] Physical Examination: [] Test Results: [] Emergency Department Course and Treatment: [] Treatment Plan: [] Disposition: [Discharged home in stable condition] Impression: [Migrainous cephalgia] This note was generated with Picmonic dictation software. It may contain incorrect words, spelling, and punctuation that were not noted in review of the chart prior to signing ED Disposition - Plan for ED Patient: Chief Complaint: Headache Instructions: ED Headache Migraine Referrals: Elia Perrin MD [STAFF PHYSICIAN] - As Needed Malys,Naheed, DO [Primary Care Provider] - As Needed What to do if you have Problems For any increased pain, shortness of breath, bleeding, nausea or vomiting, chest pain, or any unexpected problems, contact your Primary Care Provider. Call [facility] ([phone]) or report to the closest Emergency Room. Call 911 if necessary. 04/06/18 0854 <Electronically signed by Sneha Timmons DO> Date Sneha Timmons DO Cosigner Signature (If Indicated): Date CC: Naheed Kam DO EMERGENCY DEPARTMENT Observed: 04/06/2018 Status: F Source: [place] SUMMARY 7:05 AM [facility] REPOSITORY [facility] Medical Records Department [address] [place] [address] Emergency Department Summary 04/06/18 0643 MR#: [id number] Acct: [id number] Name: SCHUYLER MCKEON Rep #: [id number] : 1990 27 From: Cale Monroy MD PCP: Naheed Kam DO Status: PRE ER - ER Visit Summary Date of Service: 04/06/18 Chief Complaint: Headache History of Present Illness: The patient is a 27 F with a headache that has been increasing over the past week. The patient has a history of migraines, but this is different. She is seeing lightning bolts in her vision and her right face feels numb. She feels dizzy. She has tried sumatriptan with minimal improvement. She also tried Excedrin with no relief. Her symptoms are worse with light and noise. 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 This was excised in October [address] Perrin. She feels increasing pain and swelling to the area and is concerned that the cyst has recurred. She denies any history of cancer. Denies fever or rash. Denies neck pain. Denies trauma. Denies blood thinners. She does use a control patch. Physical Examination: Afebrile and vital signs unremarkable. Patient is alert and oriented. No acute distress. Head and neck are normal on inspection. No sign of trauma. HEENT exam unremarkable. Cranial nerves grossly intact. Skin appears normal. Heart regular and lungs clear. No focal or lateralizing neurologic abnormalities. Speech is normal. Test Results: CT head pending. Emergency Department Course and Treatment: Patient has symptoms of a migraine headache. She also has a history of a right occipital bone cyst, and is concerned for recurrence. She has no history of intracranial mass or bleed. No other concerning historical features or clinical findings. CT head was obtained. Patient was treated with Compazine and Benadryl while awaiting results. Oncoming physician will check the results of the CT. If the CT is non-concerning and she is feeling better, she will be referred to outpatient follow- up with her physician for migraine management. At the time of this dictation, the patient had minimal improvement of her pain, but she has only just received the medication. She may need Toradol or additional medication if she has persistent pain. Treatment Plan: As above Disposition: Discharged pending results and further evaluation Impression: 1. Acute headache This note was generated with Picmonic dictation software. It may contain incorrect words, spelling, and punctuation that were not noted in review of the chart prior to signing ED Disposition - Plan for ED Patient: Chief Complaint: Headache Instructions: ED Headache Migraine Referrals: Elia Perrin MD [STAFF PHYSICIAN] - As Needed Naheed Kam DO [Primary Care Provider] - As Needed What to do if you have Problems For any increased pain, shortness of breath, bleeding, nausea or vomiting, chest pain, or any unexpected problems, contact your Primary Care Provider. Call [facility] ([phone]) or report to the closest Emergency Room. Call 911 if necessary. 04/06/18 0705 <Electronically signed by Cale Monroy MD> Date Cale Monroy MD Cosigner Signature (If Indicated): Date CC: Naheed Kam DO DISCHARGE INSTRUCTION Observed: 04/06/2018 Status: F Source: [place] 7:05 AM [facility] Medical Records Department [address] [place] [id number] Discharge Instruction 04/06/18 0650 MR#: [id number] Acct: [id number] Name: SCHUYLER MCKEON Rep #: [id number] : 1990 27 From: Cale Monroy MD PCP: Naheed Kam DO Status: PRE ER ED Disposition - Plan for ED Patient: Chief Complaint: Headache Instructions: ED Headache Migraine Referrals: Naheed Kam DO [Primary Care Provider] - As Needed Elia Perrin MD [STAFF PHYSICIAN] - As Needed What to do if you have Problems For any increased pain, shortness of breath, bleeding, nausea or vomiting, chest pain, or any unexpected problems, contact your Primary Care Provider. Call [facility] ([phone]) or report to the closest Emergency Room. Call 911 if necessary. 04/06/18 0705 <Electronically signed by Cale Monroy MD> Date Cale Monroy MD Cosigner Signature (If Indicated): Date CC: Naheed Kam DO BRAIN/HEAD WITHOUT Observed: 04/06/2018 Status: F Source: [place] CONTRAST 6:31 AM [facility] REPOSITORY [facility] Imaging Services [address] [place] [address] Brain/Head without Contrast MR#: [id number] Acct: [id number] Name: SCHUYLER MCKEON Rep #: [id number] : 1990 F 27 From: Steven Gates PCP: Malys DO,Naheed Status: REG ER Study: Brain/Head without Contrast Date of Exam: 04/06/18 Exam# [id number] Ordering Dr: Cale Monroy MD STUDY: CT BRAIN WITHOUT CONTRAST REASON FOR EXAM: Female, 27 years old. Migraine headache RADIATION DOSAGE (If Supplied By Facility): CTDIvol = ( 44.99 ) mGy, DLP = ( 728.62 ) mGycm TECHNIQUE: Transaxial CT imaging of the brain was performed without administration of intravenous contrast material. Individualized dose optimization techniques were used for this CT. COMPARISON: None. FINDINGS: Normal soft tissue structures. Normal calvarium. Normal size ventricles and extra-axial spaces for the patient's age. Normal white matter tracts of the cerebral hemispheres. Normal basal ganglia and thalami. Normal brainstem. Normal cerebellum. There is no intracranial hemorrhage. There are no findings of an acute ischemic infarction. Normal visualized paranasal sinuses. CT/Brain/Head without Contrast IMPRESSION: Normal unenhanced CT scan of the brain. Electronically Signed: Steven Gates MD at 7:27 EDT , Service support , CC: Cale Monroy MD; Naheed Kam DO Horse Race Timer: Signed SUPPLY OFFICER OFFICE VISIT Observed: 03/27/2018 Status: F Source: [place] REPORT 5:45 AM [facility] [address] [place] [address] OFFICE VISIT Date of Service: 03/24/18 MR#: [id number] Acct: [id number] Name: SCHUYLER MCKEON Rep #: [id number] : 1990 Provider: Racheal Hartmann MD Age/Sex: 27/F Location: [facility] Status: Signed Intake Vital Signs03/24/18 Height 5 ft 03/24/18 Weight: 117 lb 2 oz 03/24/18 Body Mass Index (BMI) 22.8 03/24/18 Blood Pressure 110/72 Intake Visit Reasons: 2 WEEK POST OP/MIRENA INSERTION Candy Feeder Required: No Is patient in pain?: Yes (burning urination) Allergies oxycodone [From Percocet] Adverse Reaction (Verified 03/24/18 09:36) Nausea Medications Citalopram Hydrobromide [Celexa] 20 mg PO DAILY #30 tab 03/09/18 [Rx] Naproxen [Naprosyn] 250 - 500 mg PO Q8H PRN PRN #30 tab 03/09/18 [Rx] norelgestromin 150 mcg-e.estradiol 35 mcg/24 hr weekly transderm patch 1 patch TRANSDERMAL Q7D #4 patch 03/24/18 [Rx Confirmed 03/24/18] Is last menstrual period known: Yes Post menopausal: No Patient : No : No PFSH PFSH Medical History Anxiety and depression (Acute) Frequent headaches (Acute) Mass of head (Acute) Urinary tract infection (Acute) Yeast infection (Acute) Surgical History History of dilation and curettage (Acute) lumpectomy back of head (Resolved) Family History Father Diabetes Hypertension Mother Hypertension Social History Smoking Status: Never smoker what type of physical activity do you participate in: other details: cardio frequency: 5-6 times per week Pregancy History 1 Elective abortions 1 Hx Para Spontaneous abortions HPI 2 WEEK POST OP/MIRENA INSERTION: Details: SCHUYLER MCKEON is a 27 year old who presents for post op check and control. she had a suction d and c for retained POC after medical . she has done well. ROS Const Constitutional: Reports system reviewed and no additional complaints, except as docu; denies chills, fever(s), weight loss or weight gain GI GI: Reports as per HPI; denies vomiting, nausea, constipation, cramping, bloating or abdominal pain : Reports as per HPI; denies vaginal dryness, vaginal discharge, urinary urgency, urinary frequency or urinary incontinence Exam Const General: cooperative, healthy appearing, comfortable, well developed Orientation: alert HENMT Head: normal to inspection Resp Effort AND Inspection: normal respiratory effort GI Inspection: normal to inspection, non-distended Palpation: soft, no hepatosplenomegaly, no guarding External Female Exam: normal external appearance, normal appearance of the urethra Urethra: normal appearance of the urethra Speculum Exam - Vagina: normal appearance of the vagina, normal vaginal discharge, no lesions Speculum Exam - Cervix: normal appearance of the cervix, nontender Bimanual Exam- Vagina AND Uterus: No cervical tenderness, normal bimanual exam, uterine mobility normal, uterine consistency normal, uterine shape normal, uterine size normal, uterus non-tender Bimanual Exam- Adnexa, other: normal adnexae, no adnexal masses Assessment AND Plan Problems 1. Encounter for initial prescription of transdermal patch hormonal contraceptive device Z30.016 Plan cervicla stenosis noted, plan control patch instead of IUD Medications New: Coding Level of Care Code Off vis,est,level 4 Diagnoses Encounter for initial prescription of transdermal patch hormonal contraceptive device Z30.016 Contraceptive encounter type: initial prescription Contraceptive type: transdermal patch 03/27/18 0545 <Electronically signed by Racheal Hartmann MD> Date Racheal Hartmann MD Cosigner Signature: Date (if applicable) CC: DISCHARGE INSTRUCTION Observed: 03/09/2018 Status: F Source: [place] 11:50 AM [facility] REPOSITORY [facility] Medical Records Department [address] [place] [address] Instructions for Home/Discharge Instructions 03/09/18 1149 MR#: [id number] Acct: [id number] Name: SIDRA MCKEONMarina Johnston Rep #: [id number] : 1990 27 From: Racheal Hartmann MD PCP: Naheed Kam DO Status: REG [facility] Discharge Diet: No Restrictions Discharge Activity: Return to Normal Activity, May Shower, May Take a Tub Bath Allergies/Adverse Reactions: Allergies oxycodone [From Percocet] Adverse Reaction (Verified 03/07/18 11:07) Nausea Medications to take at Discharge Citalopram Hydrobromide [Celexa] 20 mg PO DAILY #30 tab 03/09/18 Naproxen [Naprosyn] 250 - 500 mg PO Q8H PRN PRN #30 tab 03/09/18 The following prescriptions were given: Naproxen [Naprosyn] 250 - 500 mg PO Q8H PRN PRN #30 tab PRN Reason: MILD PAIN Citalopram Hydrobromide [Celexa] 20 mg PO DAILY #30 tab Primary Care Physician: Naheed Kam DO [Primary Care Provider] - Test Results: Please Follow Up With: Racheal Hartmann MD - [phone] 03/09/18 1150 <Electronically signed by Racheal Hartmann MD> Date Racheal Hartmann MD CC: Naheed Kam DO PRODUCTS OF CONCEPTION Observed: 03/09/2018 Status: F Source: [place] 10:00 AM [facility] REPOSITORY Patient: SCHUYLER MCKEON : 1990 (/) Acct Num: [id number] Phys: Racheal Hartmann MD Unit Num: [id number] Loc: [facility] Specimen: [id number] Received: 03/09/18 - 1226 Spec Type: PROD CONC TISSUES TISSUES: Product of conception, NOS GROSS DESCRIPTION Received in fixative is one container labeled with the patient's name and designated products of conception. The specimen consists of multiple irregular fragments of pink-pérez soft tissue that in aggregate measure 3.5 x 3 x 0.2 cm. The specimen is submitted in its entirety in two cassettes. / AM:anila 03/09/18 TC:5 CPT: 06213 HEADER OPERATION: Dilation and curettage, suction PRE-OP DIAGNOSIS: Incomplete retained products TISSUE SUBMITTED: Products of conception MICROSCOPIC DESCRIPTION Slides are reviewed. MICROSCOPIC DIAGNOSIS Endometrium, curettage: Rare chorionic villi, decidualized stroma and trophoblastic cells consistent with products of conception. AM:anila 03/10/18 Signed Carlton Hernández 03/10/18 <signature on file> Performed By: #### PPOC #### [facility] [address] [place], [address] OPERATIVE REPORT Observed: 03/09/2018 Status: F Source: [place] 9:58 AM [facility] REPOSITORY [facility] Medical Records Department [address] [place] [address] Operative Report 03/09/18 0956 MR#: [id number] Acct: [id number] Name: SCHUYLER MCKEON Rep #: [id number] : 1990 27 From: Racheal Hartmann MD PCP: Naheed Kam DO Status: REG [facility] Y Location: [place] [address] Problem List (1) Retained products of conception Status: Acute Report of Operation Date of Procedure: 03/09/18 Pre-Operative Diagnosis: retained POC incomplete ab Post-Operative Diagnosis: same Surgery/Procedure Performed:: suction d and c Description of Surgical Findings:: 8 cm uterus Type of Anesthesia:: IV Sedation Special Medications: doxycycline Specimen's removed: POC Drains: none Estimated Blood Loss (mL): minimal Fluids Replaced: crystalloid Description of Procedure: Patient was taken to the operating room and placed under MAC local anesthesia. She was prepped and draped in the normal sterile fashion the dorsal lithotomy position. Bladder was drained of clear urine and anterior lip of the cervix was grasped and the uterus sounded to 8 cm. Cervix was progressively dilated to allow passage of a 8 mm suction curette. Progressive passes were made removing the retained products of conception without complication. Sharp curettage confirmed complete removal of the retained products. All instruments were removed from the vagina and excellent hemostasis was noted and the patient was taken to recovery in stable condition. Grafts/Implants Used: none - Complications none 03/09/18 0958 <Electronically signed by Racheal Hartmann MD> Date Racheal Hartmann MD CC: Naheed Kam DO; Racheal Hartmann MD Signed CBC-COMPLETE BLOOD CNT Collected: 03/09/2018 Status: F Source: [place] NO DIFF 9:00 AM [facility] REPOSITORY TYPE CODE TESTS RESULT OUT OF RANGE REFERENCE UNITS LAB L100.1000 4.4-11.0 K/mm3 Normal WBC 5.7 LAB L100.1200 4.2-5.4 M/mm3 Normal RBC 4.32 LAB L100.1300 12.0-15.0 g/dl Low HGB 11.9 LAB L100.1400 37-47 % Normal HCT 37.0 LAB L100.1500 81-99 fL Normal MCV 85.6 LAB L100.1600 27.0-32.0 pg Normal MCH 27.5 LAB L100.1700 32-36 g/gl Normal MCHC 32.2 LAB L100.1810 11.6-14.6 % Normal RDW CV 13.3 LAB L100.1820 35.1-43.9 fl Normal RDW SD 41.2 LAB L100.1900 150-450 K/mm3 Normal PLT 232 LAB L100.2000 6.2-12.0 fl Normal MPV 9.3 Performed By: #### L100.0500, B101.7450 #### [facility] [address] [place], [place], [address] TYPE AND SCREEN Collected: 03/09/2018 Status: F Source: [place] 9:00 AM [facility] REPOSITORY Order Comment: Has pt arrived? Y Reason for Type AND Screen/Red Cells: SURGERY TYPE CODE TESTS RESULT OUT OF RANGE REFERENCE UNITS LAB B10.0800 A Normal BLOOD TYPE GEL POSITIVE LAB B100.4000 Normal Antibody NEGATIVE Screen Performed By: #### L100.0500, B101.7450 #### [facility] [address] [place], [place], [address] HISTORY AND PHYSICAL Observed: 03/09/2018 Status: F Source: [place] EXAM 8:50 AM [facility] REPOSITORY [facility] Medical Records Department [address] [place] [address] History and Physical 03/07/18 1711 MR#: [id number] Acct: [id number] Name: SCHUYLER MCKEON Rep #: [id number] : 1990 From: Racheal Hartmann MD PCP: Naheed Kam DO Status: REG [facility] Y Location: [address] - Problem List (1) Retained products of conception Status: Acute History and Physical Date of Admission: 03/09/18 Allergies oxycodone [From Percocet] Adverse Reaction (Verified 03/06/18 14:14) Nausea Medications nrrimca-vuxhgxizczqwa-jppmxbul 250 mg-250 mg-65 mg tablet 1 tab PO ONCE 01/11/18 [History Confirmed 03/06/18] norelgestromin 150 mcg-e.estradiol 35 mcg/24 hr weekly transderm patch 1 patch TRANSDERMAL Q7D #3 patch 02/20/18 [Rx Confirmed 03/06/18] doxycycline hyclate 100 mg capsule 100 mg PO BID #20 cap 03/06/18 [Rx Confirmed 03/06/18] Is last menstrual period known: No Post menopausal: No Patient : No : No PFSH Medical History Anxiety and depression (Acute) Frequent headaches (Acute) Mass of head (Acute) Urinary tract infection (Acute) Yeast infection (Acute) Surgical History lumpectomy back of head (Resolved) Family History Father Diabetes Hypertension Mother Hypertension Social History Smoking Status: Never smoker what type of physical activity do you participate in: other details: cardio frequency: 5-6 times per week HPI DISCUSS HCG RESULTS: Details: SCHUYLER MCKEON is a 27 year old who presents for follow up after elective medical 6 weeks ago with persistent HCGs that are now rising. she has had bleeding on and off though not having bleeding now. she co lower pelvic cramping but no fevers. Pregancy History 1 Elective abortions 1 Hx Para Spontaneous abortions Hx # Term Pregnancies Ectopic pregnancies Hx # Pregnancies Multiple births # of living children ROS Const Constitutional: Denies poor appetite, headache(s), fever(s), increased appetite, weight gain, weight loss or fatigue Cardio Card: Denies chest pain Resp Resp: Denies dyspnea or cough GI GI: Reports as per HPI, nausea and abdominal pain (intermittent lower pelvic); denies vomiting or constipation Details: bedside ultrasound shows heterogenoua 8 mm endometrial lining retroverted uterus, tender, no adnexal abnormalities no free lfuid, normal cervix. : Reports as per HPI; denies urinary urgency, vaginal discharge, urinary frequency, vaginal itching, vaginal odor, vaginal dryness, urinary incontinence, urinary hesitancy, difficulty urinating, painful urination or nipple discharge Skin Skin/Breast: Denies breast lump, breast pain, breast skin changes, nipple discharge or change in hair Exam Const General: cooperative, healthy appearing, comfortable, no acute distress, well developed Nutritional Appearance: average body habitus Orientation: alert HENMT Head: normal to inspection, normocephalic Neck Neck: normal visual inspection, trachea midline Thyroid: thyroid normal Resp Effort AND Inspection: normal respiratory effort GI Inspection: normal to inspection, non-distended Palpation: soft, no hepatosplenomegaly General: bladder normal to palpation External Female Exam: normal external appearance, normal appearance of the urethra Urethra: normal appearance of the urethra, normal palpation, no discharge Speculum Exam - Vagina: normal appearance of the vagina, normal vaginal discharge Speculum Exam - Cervix: normal appearance of the cervix, nontender Bimanual Exam- Vagina AND Uterus: bladder normal to palpation, No cervical tenderness, normal bimanual exam, uterine size normal, uterine shape normal, uterine mobility normal, uterine consistency normal, normal cervical palpation, uterus tender Bimanual Exam- Adnexa, other: normal adnexae, adnexae mobile, no adnexal masses, pelvic support normal Pelvic Support: normal Skin General: no rashes or lesions noted Assessment AND Plan Problems 1. Incomplete O03.4 Plan recommend suction d and c for retained POC> bedside ultrasound done and 8 mm lining seen. discussed surgical risks including risks of anesthesia, infection, bleeding, injury to bowel, bladder or blood vessels, and patient wishes to proceed with surgery. Medications New: doxycycline hyclate 100 mg PO BID Coding Level of Care Code Off vis,est,level 4 Diagnoses Incomplete O03.4 UPDATE- I have seen the patient and performed any clinically relevant updates to the history and physical exam. Racheal Hartmann MD 03/09/18 0845 <Electronically signed by Racheal Hartmann MD> Date Racheal Hartmann MD Cosigner Signature: Date (if applicable) CC: Naheed Kam DO; Racheal Hartmann MD Signed SUPPLY OFFICER OFFICE VISIT Observed: 03/06/2018 Status: F Source: [place] REPORT 4:30 PM [facility] [address] [place] [address] OFFICE VISIT Date of Service: 03/06/18 MR#: [id number] Acct: [id number] Name: SCHUYLER MCKEON Rep #: [id number] : 1990 Provider: Racheal Hartmann MD Age/Sex: 27/F Location: [facility] Status: Signed Intake Intake Visit Reasons: DISCUSS HCG RESULTS Candy Feeder Required: No Accompanied by: self Is patient in pain?: No Allergies oxycodone [From Percocet] Adverse Reaction (Verified 03/06/18 14:14) Nausea Medications mtsyqnl-euvuxbvvpabqu-enfayahb 250 mg-250 mg-65 mg tablet 1 tab PO ONCE 01/11/18 [History Confirmed 03/06/18] norelgestromin 150 mcg-e.estradiol 35 mcg/24 hr weekly transderm patch 1 patch TRANSDERMAL Q7D #3 patch 02/20/18 [Rx Confirmed 03/06/18] doxycycline hyclate 100 mg capsule 100 mg PO BID #20 cap 03/06/18 [Rx Confirmed 03/06/18] Is last menstrual period known: No Post menopausal: No Patient : No : No PFSH Medical History Anxiety and depression (Acute) Frequent headaches (Acute) Mass of head (Acute) Urinary tract infection (Acute) Yeast infection (Acute) Surgical History lumpectomy back of head (Resolved) Family History Father Diabetes Hypertension Mother Hypertension Social History Smoking Status: Never smoker what type of physical activity do you participate in: other details: cardio frequency: 5-6 times per week HPI DISCUSS HCG RESULTS: Details: SCHUYLER MCKEON is a 27 year old who presents for follow up after elective medical 6 weeks ago with persistent HCGs that are now rising. she has had bleeding on and off though not having bleeding now. she co lower pelvic cramping but no fevers. Pregancy History 1 Elective abortions 1 Hx Para Spontaneous abortions ROS Const Constitutional: Denies poor appetite, headache(s), fever(s), increased appetite, weight gain, weight loss or fatigue Cardio Card: Denies chest pain Resp Resp: Denies dyspnea or cough GI GI: Reports as per HPI, nausea and abdominal pain (intermittent lower pelvic); denies vomiting or constipation Details: bedside ultrasound shows heterogenoua 8 mm endometrial lining retroverted uterus, tender, no adnexal abnormalities no free lfuid, normal cervix. : Reports as per HPI; denies urinary urgency, vaginal discharge, urinary frequency, vaginal itching, vaginal odor, vaginal dryness, urinary incontinence, urinary hesitancy, difficulty urinating, painful urination or nipple discharge Skin Skin/Breast: Denies breast lump, breast pain, breast skin changes, nipple discharge or change in hair Exam Const General: cooperative, healthy appearing, comfortable, no acute distress, well developed Nutritional Appearance: average body habitus Orientation: alert [facility] Head: normal to inspection, normocephalic Neck Neck: normal visual inspection, trachea midline Thyroid: thyroid normal Resp Effort AND Inspection: normal respiratory effort GI Inspection: normal to inspection, non-distended Palpation: soft, no hepatosplenomegaly General: bladder normal to palpation External Female Exam: normal external appearance, normal appearance of the urethra Urethra: normal appearance of the urethra, normal palpation, no discharge Speculum Exam - Vagina: normal appearance of the vagina, normal vaginal discharge Speculum Exam - Cervix: normal appearance of the cervix, nontender Bimanual Exam- Vagina AND Uterus: bladder normal to palpation, No cervical tenderness, normal bimanual exam, uterine size normal, uterine shape normal, uterine mobility normal, uterine consistency normal, normal cervical palpation, uterus tender Bimanual Exam- Adnexa, other: normal adnexae, adnexae mobile, no adnexal masses, pelvic support normal Pelvic Support: normal Skin General: no rashes or lesions noted Assessment AND Plan Problems 1. Incomplete O03.4 Plan recommend suction d and c for retained POC> bedside ultrasound done and 8 mm lining seen. discussed surgical risks including risks of anesthesia, infection, bleeding, injury to bowel, bladder or blood vessels, and patient wishes to proceed with surgery. Medications New: Coding Level of Care Code Off vis,est,level 4 Diagnoses Incomplete O03.4 03/06/18 1630 <Electronically signed by Racheal Hartmann MD> Date Racheal Hartmann MD Cosigner Signature: Date (if applicable) CC: HCG TITER QUANT., Collected: 03/03/2018 Status: F Source: [place] SERUM 7:27 AM [facility] REPOSITORY TYPE CODE TESTS RESULT OUT OF RANGE REFERENCE UNITS LAB L700.8000 <9 non-preg mIU/mL High HCG 1216 QUANT. Performed By: #### L700.8000 #### [facility] [address] [facility]. [place], [place], [address] HCG TITER QUANT., Collected: 03/01/2018 Status: F Source: [place] SERUM 7:35 AM [facility] REPOSITORY TYPE CODE TESTS RESULT OUT OF RANGE REFERENCE UNITS LAB L700.8000 <9 non-preg mIU/mL High HCG 1066 QUANT. Performed By: #### L700.8000 #### [facility] [address] [place], [place], [address] HCG TITER QUANT., Collected: 02/22/2018 Status: F Source: [place] SERUM 7:33 AM [facility] REPOSITORY TYPE CODE TESTS RESULT OUT OF RANGE REFERENCE UNITS LAB L700.8000 <9 non-preg mIU/mL High HCG 776 QUANT. Performed By: #### L700.8000 #### [facility] [address] [place], [address] SUPPLY OFFICER OFFICE VISIT Observed: 02/20/2018 Status: F Source: [place] REPORT 9:20 AM [facility] REPOSITORY [facility] [address] [place] [address] OFFICE VISIT Date of Service: 02/20/18 MR#: [id number] Acct: [id number] Name: SCHUYLER MCKEON Rep #: [id number] : 1990 Provider: Racheal Hartmann MD Age/Sex: 27/F Location: [facility] Status: Signed Intake Vital Signs02/20/18 Height 5 ft 02/20/18 Weight: 122 lb 2 oz 02/20/18 Body Mass Index (BMI) 23.8 02/20/18 Blood Pressure 119/75 Intake Visit Reasons: DISCUSS GETTING IUD Chief Complaint: IUD Consult Candy Feeder Required: No Is patient in pain?: No Allergies oxycodone [From Percocet] Adverse Reaction (Verified 02/20/18 08:34) Nausea Medications bkfzmdm-hcvogsuiivlbe-ulanrfon 250 mg-250 mg-65 mg tablet 1 tab PO ONCE 01/11/18 [History Confirmed 02/20/18] norelgestromin 150 mcg-e.estradiol 35 mcg/24 hr weekly transderm patch 1 patch TRANSDERMAL Q7D #3 patch 02/20/18 [Rx Confirmed 02/20/18] Post menopausal: No Patient : No : No PFSH Medical History Anxiety and depression (Acute) Frequent headaches (Acute) Mass of head (Acute) Urinary tract infection (Acute) Yeast infection (Acute) Surgical History lumpectomy back of head (Resolved) Family History Father Diabetes Hypertension Mother Hypertension Social History Smoking Status: Never smoker what type of physical activity do you participate in: other details: cardio frequency: 5-6 times per week HPI DISCUSS GETTING IUD: Details: SCHUYLER MCKEON is a 27 year old who presents for discussing control. her recurrent vaginitis has improved. she is considering the IUD vesus the patch. she had an elective termination last week with cytotec and is still bleeding now. she admits some cramping but no fevers. emotionally she is handling things well. Female Reproductive History Cycle Length: 21-35 Bleeding Duration: 4 associated symptoms: hormonal migraines Questions: Sexually active: Yes Pregancy History 1 Elective abortions 1 Hx Para Spontaneous abortions ROS Const Constitutional: Denies poor appetite, headache(s), fever(s), increased appetite, weight gain, weight loss or fatigue GI GI: Reports as per HPI; denies vomiting, nausea, abdominal pain or constipation : Reports as per HPI; denies urinary urgency, vaginal discharge, urinary frequency, vaginal itching, vaginal odor, vaginal dryness, urinary incontinence, urinary hesitancy, difficulty urinating or painful urination Exam Const General: cooperative, healthy appearing, comfortable, no acute distress, well developed Nutritional Appearance: average body habitus Orientation: alert HENVT Head: normal to inspection, normocephalic Ears: hearing grossly normal bilaterally, external ears normal Nose: external nose normal, nares normal Face and sinus: normal facial exam Neck Neck: normal visual inspection, trachea midline, no lymphadenopathy Thyroid: thyroid normal Resp Effort AND Inspection: normal respiratory effort Musc Other: gross motor intact no deficits, full bilateral strength Skin General: no rashes or lesions noted Neuro Motor: muscle tone normal throughout Assessment AND Plan Problems 1. Encounter for initial prescription of transdermal patch hormonal contraceptive device Z30.016 2. Termination of Plan discussed options - still bleeding recommend hcg now and in 48 hours and then weekly until negative, plan on xulane patch Orders Orders: Medications New: Coding Level of Care Code Off vis,est,level 4 Diagnoses Encounter for initial prescription of transdermal patch hormonal contraceptive device Z30.016 Contraceptive encounter type: initial prescription Contraceptive type: transdermal patch Termination of 02/20/18919 <Electronically signed by Racheal Hartmann MD> Date Racheal Villegasignross Signature: Date (if applicable) CC: HCG TITER QUANT., Collected: 02/20/2018 Status: F Source: [place] SERUM 9:01 AM [facility] REPOSITORY TYPE CODE TESTS RESULT OUT OF RANGE REFERENCE UNITS LAB L700.8000 <9 non-preg mIU/mL High HCG 946 QUANT. Performed By: #### L700.8000 #### [facility] [address] [place], [address] Observed: 01/11/2018 Status: F Source: [place]NA CULTURE, GENITAL 4:11 PM [facility] COMPREHENSIVE REPOSITORY Reason for Exam: vulvovaginitis Gram Stain Score = 0 Interpretation: 0-3 Normal, 4-6 Intermediate, 7-10 Positive BV Gram Stain 1+ Yeast Like Organisms 2+ White Blood Cells 2+ Epithelial cells No Gram negative diplococci Gent Cult Comp No yeast, Gardnerella, Neisseria or beta-hemolytic Streptococcus isolated. ORGANISM 1: Presumptive C albicans Amount Growth 3+ Performed By: #### M100.1600 #### [facility] [address] [place], [address] SUPPLY OFFICER OFFICE VISIT Observed: 01/11/2018 Status: F Source: JUL[place]NA REPORT 3:29 PM [facility] REPOSITORY [facility] [address] [place] [address] OFFICE VISIT Date of Service: 01/11/18 MR#: [id number] Acct: [id number] Name: SCHUYLER MCKEON Rep #: [id number] : 1990 Provider: KIA Vivas Age/Sex: 27/F Location: [facility] Status: Signed Intake Vital Signs01/11/18 Height 5 ft 01/11/18 Weight: 119 lb 2 oz 01/11/18 Body Mass Index (BMI) 23.2 01/11/18 Blood Pressure 116/72 Intake Visit Reasons: possible yeast infection Chief Complaint: Yeast Infection Candy Feeder Required: No Is patient in pain?: No Allergies oxycodone [From Percocet] Adverse Reaction (Verified 01/11/18 14:35) Nausea Medications Acetaminophen/Diphenhydramine [Tylenol Pm Ex-Strength Caplet] 1 ea PO QHS PRN 10/05/17 [History Confirmed 01/11/18] oetdird-lyiwmsvdujnfz-yljzhiyc 250 mg-250 mg-65 mg tablet 1 tab PO ONCE 01/11/18 [History Confirmed 01/11/18] lactobacillus combination no.8 3 billion cell capsule 3,000 mmu cells PO QDAY 01/11/18 [History Confirmed 01/11/18] Is last menstrual period known: Yes Last Menstral Period: 01/02/18 Post menopausal: No Patient : No : No [facility] Medical History Anxiety and depression (Acute) Frequent headaches (Acute) Mass of head (Acute) Urinary tract infection (Acute) Yeast infection (Acute) Surgical History lumpectomy back of head (Resolved) Family History Father Diabetes Hypertension Mother Hypertension Social History Smoking Status: Never smoker what type of physical activity do you participate in: other details: cardio frequency: 5-6 times per week HPI possible yeast infection: Details: SCHUYLER MCKEON is a 27 year old who presents for recurrent and persistent vaginal burning since March 2017. Started with seeing PCP. Has seen me and Dr. Hartmann. Has had negative vaginal cultures. Has tried diflucan which sometimes makes worse. She has eliminated sugar in diet, and also taking probiotic. and denies STD concern. She did have negative STD testing in March as precautionary. Female Reproductive History Last Menstral Period: 01/02/18 Pregancy History 0 Elective abortions Hx Para Spontaneous abortions Exam External Female Exam: erythema Speculum Exam - Vagina: abnormal vaginal discharge (clumpy white, watery), vaginal erythema Speculum Exam - Cervix: normal appearance of the cervix, other (TARA BV and comp vag culture. ) Assessment AND Plan Problems 1. Vulvovaginitis N76.0 Plan Call culture results. If negative consider referral to Dr. Aime Vega for evaluation for vulvodynia. Orders Orders: Medications Discontinued: diazepam Discontinued Reason: 5 mg PO 4X/DAY PRN 5 days PRN Spa Mouna Douglas Order Completed [facility] hydromorphone Discontinued Reas2 - 4 mg PO 4X/DAY PRN 5 days PRND49.2 Mouna Douglas on: Order Completed Pain Coding Level of Care Code Off vis,est,level 3 Diagnoses Vulvovaginitis N76.0 01/11/18 1529 <Electronically signed by Cindy PARKS> Date Cindy PARKS Cosigner Signature: Date (if applicable) CC: PLASTIC SURGERY Observed: 10/30/2017 Status: F Source: [place] VISIT REPORT 6:38 PM [facility] REPOSITORY [facility] [address] [place] [address] OFFICE VISIT Date of Service: 09/29/17 MR#: [id number] Acct: [id number] Name: SCHUYLER MCKEON Rep #: [id number] : 1990 Provider: Elia Perrin MD Age/Sex: 27/F Location: [facility] Status: Signed Intake Vital Signs09/29/17 Height 5 ft 09/29/17 Weight: 123 lb 8 oz Intake Visit Reasons: evaluation painful lesion right occipital scalp Candy Feeder Required: No Accompanied by: None Is patient in pain?: Yes (sore to touch - back of the head right side) Allergies oxycodone [From Percocet] Adverse Reaction (Verified 09/29/17 15:05) Nausea Medications topiramate 25 mg tablet 50 mg PO QHS 09/20/17 [History Confirmed 10/06/17] valacyclovir 500 mg tablet 500 mg PO QDAY PRN 09/20/17 [History Confirmed 10/05/17] Acetaminophen/Diphenhydramine [Tylenol Pm Ex-Strength Caplet] 1 ea PO QHS PRN 10/05/17 [History Confirmed 10/06/17] Fluconazole 150 mg PO .COMPLEX 10/05/17 [History Confirmed 10/06/17] Nystatin/Triamcin [Nystatin-Triamcinolone Ointm] 1 applic TOPICAL TID PRN 10/05/17 [History Confirmed 10/05/17] Clindamycin HCl [Cleocin] 300 mg PO TID #15 cap 10/06/17 [Rx] Diazepam [Valium] 5 mg PO 4X/DAY PRN PRN 5 Days #20 tab 10/06/17 [Rx] HydromorphONE [Dilaudid] 2 - 4 mg PO 4X/DAY PRN PRN 5 Days #40 tab 10/06/17 [Rx] Docusate Sodium [Colace] 100 mg PO BID #60 cap 10/07/17 [Rx] Fentanyl [Duragesic] 12 mcg TRANSDERM. Q3D 15 Days #5 patch 10/07/17 [Rx] Gabapentin [Neurontin] 100 mg PO BIDCM 30 Days #60 cap 10/07/17 [Rx] ProMETHAzine [Phenergan] 25 mg PO 4X/DAY PRN PRN #30 tab 10/07/17 [Rx] Amitriptyline HCl [Elavil] 50 mg PO QHS #60 tab 10/11/17 [Rx] Meclizine HCl [Antivert] 25 mg PO 4X/DAY PRN PRN #60 tab 10/11/17 [Rx] Is last menstrual period known: Yes Post menopausal: No Patient : No PFSH Medical History Anxiety and depression (Acute) Frequent headaches (Acute) Mass of head (Acute) Urinary tract infection (Acute) Yeast infection (Acute) Surgical History lumpectomy back of head (Resolved) Family History Father Diabetes Hypertension Mother Hypertension HPI evaluation painful lesion right occipital scalp: Details: HISTORY OF PRESENT ILLNESS 27 year old woman presents with a recurrent soft tissue mass on her right occipital scalp area that has increased in size over the last few months. There is some discomfort when she bumps it. She denies any trauma. She denies any fever. She denies any recent infection. She initially had a nodular lesion removed from this area in 08/[address] Hughes. The Pathology was negative for carcinoma according to the patient. She states she had headaches that initially improved after that excision in 08/20, and they have since returned. She had a recent MRI which showed this nodular mass in the right occipital area and no intracranial component. PAST MEDICAL HISTORY Headaches. UTI's. Recurrent vaginitis. Anxiety. Depression. PAST SURGICAL HISTORY Excision right occipital nodular lesion - 08/20. MEDICATIONS Topamax. Valtrex. Diflucan. Nystatin-Triamcinolone ointment. Tylenol PM. ALLERGIES Oxycodone. SOCIAL HISTORY Patient does not smoke. Patient does not drink alcohol. FAMILY HISTORY Negative for skin cancer. Diabetes. Hypertension. REVIEW OF SYSTEMS General - Denies fever, weight loss. Has fatigue. ENT - Denies nasal congestion and sore throat. Eyes - Denies cataracts. Denies glaucoma. Endocrine - Denies excessive thirst or urination. Skin - Has recurrent painful soft tissue mass right occipital scalp. Musculoskeletal - Denies joint pain, joint stiffness, weakness of muscles and joints, back pain, and arthritis. Neuro - Has headaches. Has lightheadedness. Cardiovascular - Denies chest pain. Has fatigue. Has lightheadedness. Denies shortness of breath with exertion. Psych - Has anxiety. Has some depression. Respiratory - Denies shortness of breath. Denies chronic cough. Gastrointestinal - Denies nausea, vomiting, diarrhea, and constipation. Hematologic - Denies abnormal bruising and bleeding. Genitourinary - Denies urinary frequency. Has some hematuria. Has UTI's and recurrent vaginitis. PHYSICAL EXAMINATION General - Alert and oriented. HEENT - PERRL. EOMI. Throat is clear. On the right occipital scalp just inferior to a previous scar is a nodular lesion that is mobile. There is some adherence to the overlying skin. It measures 1.5 cm. Slight tenderness to palpation. No ulceration. No evidence of infection. No sensory deficits. Neck - Supple and nontender. No cervical adenopathy. Lungs - Clear to auscultation. Heart - Regular rate and rhythm. Abdomen - Soft and nondistended. Extremities - FROM. No axillary adenopathy. Radial pulses are palpable. Neuro - CN II - XII grossly intact. ASSESSMENT 1. 1.5 cm recurrent painful nodular lesion right occipital scalp. 2. Headaches. PLAN MRI reviewed. Recommend excision of this recurrent painful soft tissue mass right occipital scalp. Will send the lesion to Pathology for analysis to rule out carcinoma. Should be able to close the wound primarily. However with the history of previous excision, will remove the scar tissue along with the lesion. If the lesion is close to the skin, I may remove some additional skin to minimize recurrence. This may necessitate a local skin flap for reconstruction. Doubt I would need to place a skin graft there. It was discussed with the patient that after surgery, there is the chance she may develop a small area of alopecia in the area of the scar. The patient voices understanding and wishes to proceed. Patient was informed of the risks and complications of the procedure including alternatives to surgery. These were discussed with her personally. She voices understanding and wishes to proceed. Some of the risks and complications of the procedure were included in a form from the [employer]. Surgery will be done under general anesthesia on an outpatient basis. Assessment AND Plan Problems 1. Neoplasm of unspecified behavior of bone, soft tissue, and skin D49.2 2. Headache R51 Medications Discontinued: fluconazole Discontinued Reason: Order ed150 mg PO now, repeat in 72 hours, then once ited - Discontinuing original order weekly x 6 months Coding Level of Care Code Off vis,new,level 3 Diagnoses Neoplasm of unspecified behavior of bone, soft tissue, and skin D49.2 Headache R51 10/30/17 5288 <Electronically signed by Elia Perrin MD> Date Elia Perrin MD Cosigner Signature: Date (if applicable) CC: Naheed Kam DO OPERATIVE REPORT Observed: 10/16/2017 Status: F Source: JUL[place] 9:06 PM [facility] REPOSITORY [facility] Medical Records Department [address] [place] [address] Operative Report 10/06/171938 MR#: [id number] Acct: [id number] Name: MIKESCHUYLER Rep #: [id number] : 1990 27 From: Elia Perrin MD PCP: Naheed Kam DO Status: DIS OLEGARIO Y Location: MS3 [id number] Report of Operation Date of Procedure: 10/06/17 Pre-Operative Diagnosis: 1. 1.5 cm recurrent painful nodular lesion right occipital scalp. 2. Headaches. Post-Operative Diagnosis: 1. 1.5 cm recurrent painful submuscular bone lesion right occipital scalp. 2. Headaches. Surgery/Procedure Performed:: Excision 1.5 cm recurrent painful submuscular bone lesion right occipital scalp with 3 cm complex closure. Description of Surgical Findings:: 27 year old woman presents with a recurrent soft tissue mass on her right occipital scalp area that has increased in size over the last few months. There is some discomfort when she bumps it. She denies any trauma. She denies any fever. She denies any recent infection. She initially had a nodular lesion removed from this area in 08/[address] Hughes. The Pathology was negative for carcinoma according to the patient. She states she had headaches that initially improved after that excision in 08/20, and they have since returned. She had a recent MRI which showed this nodular mass in the right occipital area and no intracranial component. Patient was informed of the risks and complications of the procedure including alternatives to surgery. These were discussed with her personally. She voices understanding and wishes to proceed. Some of the risks and complications of the procedure were included in a form from the [employer]. Surgery will be done under general anesthesia on an outpatient basis. sales data analyst: None Type of Anesthesia:: General Specimen's removed: Submuscular bone lesion right occipital scalp to Pathology. Drains: None. Estimated Blood Loss (mL): 50 ml. Description of Procedure: Patient was taken to OR in supine position and was placed under general anesthesia. She was then placed in the lateral position as her right occipital scalp area was prepped and draped in the usual fashion. SCD's were placed for DVT prophylaxis. Perioperative antibiotics were given intravenously. Using xylocaine with epinephrine, I infiltrated the right occipital scalp area over the nodular mass and previous scarring. After waiting 5 minutes for the anesthetic to take effect, I cut some of her hair to get better exposure. I made an incision over the nodular mass perpendicular to the previous scar. I dissected into the subcutaneous tissue. No mass was seen but it was still palpable. A lot of scar tissue was present from her previous excision and it was excised down to the muscle to minimize recurrence. No identifiable nerves were seen during the dissection but nerve injury can certainly occur with the presence of the scar tissue from the previous surgery that was excised to minimize recurrence. Possible numbness was discussed with the patient preoperatively. She voiced understanding and wished to proceed. When I got down to the muscle, there was bulging but no visible mass which suggested a submuscular mass. I made an incision in the muscle and there was periosteum. The nodular mass appeared to be a bony mass. The mass was smooth and uniform in shape without irregularities. There appeared to be a plane of dissection at the level of the skull that I could palpate with my fingers but I couldn't budge it. Therefore I used an osteotome and a mallet and gently excised this bony mass in a tangential fashion flush with the surrounding bone. It was removed easily. I looked at the inside of the bony lesion and it appeared to be cystic. The bony mass was sent to Pathology for analysis to rule out carcinoma. The remaining bone appeared smooth with no clinical suspicion of malignancy. The wound was irrigated with saline. I sprayed the wound with Marlee absorbable hemostat to minimize seroma formation postoperatively. The wound was closed in a complex multiple layered fashion with 4-0 Monocryl figure of eight interrupted sutures for the muscle layer. The deep dermis and subcutaneous tissue was approximated with 4-0 Monocryl interrupted sutures. The skin was approximated with 4-0 Monocryl simple and vertical mattress interrupted sutures. Antibiotic ointment was applied to the suture line. Patient tolerated the procedure well and was sent to PACU in satisfactory condition. She will be sent home on antibiotics and pain medication. She will followup in the office in a week for a wound check as well as to discuss the Pathology report. The sutures will come out on their own. Grafts/Implants Used: None. - Complications None. - Admit VTE Documentation VTE Present on Admission: No VTE Mechan Device Prophylaxis: SCD's VTE Pharm Prophylaxis ordered?: No Code Visit Surgery Charges CPT - 72275 ICD-10 - D49.2 10/16/17 2106 <Electronically signed by Elia Perrin MD> Date Elia Perrin MD CC: Filiberto Tilley MD; Carol Howard MD; Elia Perrin MD; Jorge Adams MD; Naheed Kam DO Signed DISCHARGE SUMMARY Observed: 10/15/2017 Status: F Source: [place] 1:39 PM [facility] REPOSITORY [facility] Medical Records Department [address] [place] [address] Discharge Summary 10/11/17 1749 MR#: [id number] Acct: [id number] Name: SCHUYLER MCKEON Rep #: [id number] : 1990 27 From: Elia Perrin MD PCP: Naheed Kam DO Status: DIS OLEGARIO Y Location: MS3 SC571-9 Discharge Date and Diagnosis Date of Admission: 10/06/17 Date of Discharge: 10/11/17 - Primary Discharge Diagnosis Submuscular bony lesion right occipital scalp Dizziness Right labyrinthitis - Secondary Discharge Diagnosis Chronic Problems Headache Subacute on chronic vaginitis Hospital Course and Treatment Imaging Results: Brain CT 10/08/17 10:10 IMPRESSION: No acute intracranial process. Electronically Signed: Ross Oconnor MD at 11:43 EST Tel , Service support , Brain MRI 10/10/17 10:59 IMPRESSION: Normal unenhanced MRI of the brain. Electronically Signed: Elio Bronson MD at 13:49 EST Tel , Service support , Head MRA 10/10/17 10:59 IMPRESSION: Normal MRA of the head Electronically Signed: Elio Bronson MD at 13:14 EST Tel , Service support , Neck MRA 10/10/17 10:59 IMPRESSION: Normal bilateral cervical carotid and vertebral arteries. Electronically Signed: Elio Bronson MD at 13:16 EST Tel , Service support , CONSULTATIONS Dr. Howard from [facility]. Dr. Adams from ENT. Dr. Santoro from Neurology. 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 Procedures: None Summary of Care Provided: The patient is a 27 year old woman who presented with a recurrent soft tissue mass on her right occipital scalp area that has increased in size over the last few months. There is some discomfort when she bumps it. She denies any trauma. She denies any fever. She denies any recent infection. She initially had a nodular lesion removed from this area in 08/[address] Hughes. The Pathology was negative for carcinoma according to the patient. She states she had headaches that initially improved after that excision in 08/20, and they have since returned. She had a recent MRI which showed this nodular mass in the right occipital area and no intracranial component. 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 Postoperatively the patient developed dizziness. Initially the pain medications were reduced. When it persisted, A CT Brain was obtained which was negative. Labs revealed no electrolyte abnormalities. She also had some burning nerve pain in the area of the surgery and was started on Neurontin with some relief. PT evaluated her and felt that with her dizziness, she was too unsteady on her feet and did not recommend her going home until she was more steady on her feet. She was started on Antivert. Dr. Howard from the [facility] was consulted to assist with medical management. She recommended an ENT consult and a Neurology consult. ENT suggested an audiogram as an outpatient to evaluate for possible labyrinthitis along with vestibular rehab for the dizziness. MRI Brain was obtained which was normal. MRA Head was obtained which was normal. MRA Neck was obtained which was normal. Neurology felt the vertigo was worse with pain meds. Has migraine history which is exacerbated by the vertigo. He recommended getting off the pain meds as soon as feasible. He encourage physical activity and also to limit daytime use of sedative agents as feasible. She is on Topamax and will continue that. She was also started on Elavil. With the Elavil she was able to rest more which improved the dizziness. She was more steady on her feet with ambulation. She was discharged home on the 5th postop day. Since initially this surgery was scheduled as an outpatient, the mother already got the scripts filled. These included Fentanyl patch, Dilaudid, Valium, Neurontin. Recommended to the patient that this far out from surgery, she shouldn't need much and to take them sparingly especially if they aggravate her dizziness. She voiced understanding. Scripts were written for Antivert and Elavil. She will followup with ENT in 1-2 weeks for the audiogram and the vestibular rehab to further evaluate her labyrinitis and vertigo. She will followup with Neurology in 4 weeks to further evaluate her headaches. She will followup with her PCP in 4-6 weeks to evaluate these postop treatments. Discharge Diet: No Restrictions Discharge Activity: May not drive while taking narcotic pain medications., May Shower - in two days., - - keep head elevated. no heavy lifting. May shower in (days): 2 May resume sexual activity in: No Restrictions Weight Bearing Status: Weight bearing as tolerated Keep extremity elevated above heart level: - - elevate head. Call your doctor if your incision/area has: Continuous Slow Oozing, Sudden Increased Bleeding, Increased Pain/ Swelling, Increased Redness, Foul Smelling Discharge, Swelling at the incision site Call your doctor if you observe: Fever of 101 or Higher, Shortness of breath, Chest pain, Calf discomfort, Uncontrolled pain Suture Line Care: - - antibiotic ointment to suture line daily. Cleanse incision/area with: - - may get incision wet in the shower in two days. Home Medications: Medications to take at Discharge topiramate 25 mg tablet 50 mg PO QHS 09/20/17 valacyclovir 500 mg tablet 500 mg PO QDAY PRN 09/20/17 Acetaminophen/Diphenhydramine [Tylenol Pm Ex-Strength Caplet] 1 each PO QHS PRN 10/05/17 Fluconazole 150 mg PO .COMPLEX 10/05/17 Nystatin/Triamcin [Nystatin-Triamcinolone Ointm] 1 applic TOPICAL TID PRN 10/05/17 Clindamycin HCl [Cleocin] 300 mg PO TID #15 cap 10/06/17 Diazepam [Valium] 5 mg PO 4X/DAY PRN PRN 5 Days #20 tab 10/06/17 HydromorphONE [Dilaudid] 2 - 4 mg PO 4X/DAY PRN PRN 5 Days #40 tab 10/06/17 Docusate Sodium [Colace] 100 mg PO BID #60 cap 10/07/17 Fentanyl [Duragesic] 12 mcg TRANSDERM. Q3D 15 Days #5 patch 10/07/17 Gabapentin [Neurontin] 100 mg PO BIDCM 30 Days #60 cap 10/07/17 ProMETHAzine [Phenergan] 25 mg PO 4X/DAY PRN PRN #30 tab 10/07/17 Amitriptyline HCl [Elavil] 50 mg PO QHS #60 tab 10/11/17 Meclizine HCl [Antivert] 25 mg PO 4X/DAY PRN PRN #60 tab 10/11/17 Following Prescrptions Were Given to Patient: Amitriptyline HCl [Elavil] 50 mg PO QHS #60 tab Diazepam [Valium] 5 mg PO 4X/DAY PRN PRN 5 Days #20 tab PRN Reason: Spasms Fentanyl [Duragesic] 12 mcg TRANSDERM. Q3D 15 Days #5 patch HydromorphONE [Dilaudid] 2 - 4 mg PO 4X/DAY PRN PRN 5 Days #40 tab PRN Reason: Pain Meclizine HCl [Antivert] 25 mg PO 4X/DAY PRN PRN #60 tab PRN Reason: Dizziness ProMETHAzine [Phenergan] 25 mg PO 4X/DAY PRN PRN #30 tab PRN Reason: Nausea/Vomiting Docusate Sodium [Colace] 100 mg PO BID #60 cap Gabapentin [Neurontin] 100 mg PO BIDCM 30 Days #60 cap Clindamycin HCl [Cleocin] 300 mg PO TID #15 cap Primary Care Physician: Naheed Kam DO [Primary Care Provider] - Please follow up with your Primary Care Physician in: 4-6 weeks to evaluate postop treatments. Please Follow Up With: Elia Perrin MD When: one week. call [phone] for appt. Please Follow Up With: Jorge Adams MD - [phone]. When: 1-2 wks for audiogram and vestibular rehab to eval labyrinitis and vertigo. Please Follow Up With: Amos Santoro MD - [phone]. When: 4 weeks to evaluate headaches. Disposition: Home Minutes spent on discharge:: 35 Patient Condition:: Stable Meaningful Use Info Meaningful Use Diagnoses (Choose all that apply): None applicable 10/15/17 1339 <Electronically signed by Elia Perrin MD> Date Elia Perrin MD Cosigner Signature (if applicable): Date CC: Carol Howard MD; Elia Perrin MD; Jorge Adams MD; Naheed Kam DO; Amos Snatoro MD Signed CONSULTATION Observed: 10/12/2017 Status: F Source: [place] 11:23 [facility] REPOSITORY [facility] Medical Records Department [address] [place] [address] Consultation 10/11/17 1328 MR#: [id number] Acct: [id number] Name: SCHUYLER MCKEON Rep #: [id number] : 1990 27 From: Amos Santoro MD PCP: Naheed Kam DO Status: DIS OLEGARIO Y Location: [place] [address] Reason for Consult Date of Consultation: 10/11/17 Reason for Consultation: VERTIGO History of Present Illness: The patient is a 27 year old RIGHT HANDED white female with history of migraine, on topamax and relpax at home, underwent occipital bone mass excision which was uncomplicated 10/06/17, reports since awakening she has experienced the whole world spinning now somewhat improved. able to ambulate with therapy today, felt poorly but reports this is improved, yesterday unable to ambulate. denies other neurologic symptoms. currently on multiple analgesics. healthy otherwise. Past Medical History Past Medical History (Chronic Problems): Chronic Problems (Last Updated 09/29/17 @ 14:56 by Beatris Brice) Bone neoplasm (Chronic) 1.5 cm painful submuscular bone lesion right occipital scalp Headache (Chronic) Subacute on chronic vaginitis (Chronic) infectious versus inflammatory, consider missile technician antifungal, discussed avoidance of irritants. may be influenced by depo provera shot. Allergies oxycodone [From Percocet] Adverse Reaction (Verified 09/29/17 15:05) Nausea Home Medications: Ambulatory Orders Medication Instructions Recorded topiramate 25 mg tablet 50 mg PO QHS 09/20/17 Lives: Spouse/ Significant Other Smoking Status: Never smoker Tobacco Use: Non-smoker Alcohol: None Drugs: None Review of Systems Constitutional: Denies: Chills, Fever, Weight Change Eyes: Reports: Blurred vision HEENT: Denies: Head Aches, Sinus Congestion, Sinus Drainage Cardiovascular: Denies: Chest Pain, Palpitations Respiratory: Denies: Cough, Shortness of breath at rest, Sputum production Gastrointestinal: Denies: Abdominal Pain, Nausea, Vomiting Genitourinary: Denies: Dysuria Musculoskeletal: Denies: Joint Pain, Joint Tenderness Skin: Denies: Rash, Wounds Neurological: Denies: Numbness, Tingling, Focal weakness Psychiatric: Denies: Anxiety, Depression, Homicidal Ideations, Suicidal Ideations Hematologic/ Lymphatic: Denies: Easy Bruising, Easy Bleeding - Physical Exam General: Alert, Oriented x3, Cooperative HEENT: Atraumatic, PERRLA, EOMI, Normocephalic Neck: Supple, No JVD, Negative Carotid Bruits Lungs: Clear to auscultation, Normal air movement Cardiovascular: Regular rate, No murmurs Abdomen: Bowel Sounds Present, Soft, Non Tender Extremities: No edema, Capillary Refill Less than 3 Seconds Skin: No rashes, No breakdown Musculoskeletal: No Tenderness to Palpation of Joints or Extremities Neurological: Cranial nerves II-XII grossly intact Psych/Mental Status: Normal Affect, Appropriate Vital Signs Temp Pulse Resp BP Pulse Ox 37.1 C 91 16 98/50 L 96 10/11/17 11:06 10/11/17 11:06 10/11/17 11:06 10/11/17 11:06 10/11/17 11:06 Oxygen Delivery Method Room Air Weight: 57.1 kg Body Mass Index (BMI) 24.5 Orthostatic Vital Signs Start: 10/10/17 10:27 Freq: Status: Active Protocol: Activity Type Activity Date Activity User E-Sign Co-Sign Detail Recorded Client Recorded Date Recorded By Document 10/10/17 10:27 AA [id number] 10/10/17 10:28 AA Orthostatic Vitals Standing -Blood Pressure (90/60-120/80) 111/80 -Extremity Use Right Arm -Pulse Rate (60-100) 101 H Sitting -Blood Pressure (90/60-120/80) 113/75 Intake and Output for Last 24 Hours Intake Total 2117 / 2117 1211 / 1211 600 / 600 Output Total 1250 / 1250 450 / 450 1000 / 1000 Balance 867 / 867 761 / 761 -400 / -400 Current Medications Generic Name Dose Route Start Last Admin Trade Name Freq PRN Reason Stop Dose Admin mri brain normal (reviewed) mra head and neck normal (reviewed) Assessment/Plan BPPV, +/- worse with pain meds, also has migraine history. current headache 04/14 discussed with pt, for now she opts to continue dilaudid encourage physical activity limit daytime use of sedative agents as feasible continue topamax elavil 50mg now and qhs 10/12/17 1123 <Electronically signed by Amos Santoro MD> Date Amos Santoro MD Cosigner Signature (if applicable): Date CC: Filiberto Tilley MD; Carol Howard MD; Jorge Adams MD; Naheed aKm DO Signed DISCHARGE INSTRUCTION Observed: 10/11/2017 Status: F Source: [place] 5:48 PM [facility] REPOSITORY [facility] Medical Records Department [address] [place] [address] Instructions for Home/Discharge Instructions 10/06/17 1315 MR#: [id number] Acct: [id number] Name: SCHUYLER MCKEON Rep #: [id number] : 1990 27 From: Elia Perrin MD PCP: Naheed Kam DO Status: ADM OLEGARIO ADDENDUM by Elia Perrin MD on 10/11/17 at 1749 Wrote scripts for Antivert 25mg four times a day as needed for dizziness (60 tabs) and 4 refills. Elavil 50mg at bedtime (60 tabs) and [address]. [address] Adams from ENT for evaluation for an audiogram and for vestibular rehab. [phone]. Followup with Dr. Santoro from Neurology for continued treatment of her migraines. [phone] Date Elia Perrin MD cc: Filiberto Tilley MD; Carol Howard MD; Jorge Adams MD; Naheed Kam DO * Signed ADDENDUM by Elia Perrin MD on 10/07/17 at 1240 Wrote scripts for Duragesic Patch for pain, 12mcg (5 patches) Neurontin for burning nerve pain, 100mg (60 tabs) with a refill Phenergan for nausea (30 tabs) with a refill Colace for constipation (60 tabs). Date Elia Perrin MD cc: Filiberto Tilley MD; Carol Howard MD; Jorge Adams MD; Naheed Kam DO * Signed You will use the following diet at home:: No restrictions Discharge Activity: May not drive while taking narcotic pain medications., May Shower - in two days., - - keep head elevated. no heavy lifting. May shower in (days): 2 May resume sexual activity in: No Restrictions Weight Bearing Status: Weight bearing as tolerated Lifting Restrictions: 20 lbs. Keep extremity elevated above heart level: - - elevate head. Call your doctor if your incision/area has: Continuous Slow Oozing, Sudden Increased Bleeding, Increased Pain/ Swelling, Increased Redness, Foul Smelling Discharge, Swelling at the incision site Call your doctor if you observe: Fever of 101 or Higher, Shortness of breath, Chest pain, Calf discomfort, Uncontrolled pain Suture Line Care: - - antibiotic ointment to suture line daily. Cleanse incision/area with: - - may get incision wet in the shower in two days. Allergies/Adverse Reactions: Allergies oxycodone [From Percocet] Adverse Reaction (Verified 09/29/17 15:05) Nausea Medications to take at Discharge topiramate 25 mg tablet 50 mg PO QHS 09/20/17 valacyclovir 500 mg tablet 500 mg PO QDAY PRN 09/20/17 Acetaminophen/Diphenhydramine [Tylenol Pm Ex-Strength Caplet] 1 each PO QHS PRN 10/05/17 Fluconazole 150 mg PO .COMPLEX 10/05/17 Nystatin/Triamcin [Nystatin-Triamcinolone Ointm] 1 applic TOPICAL TID PRN 10/05/17 Clindamycin HCl [Cleocin] 300 mg PO TID #15 cap 10/06/17 Diazepam [Valium] 5 mg PO 4X/DAY PRN PRN 5 Days #20 tab 10/06/17 HydromorphONE [Dilaudid] 2 - 4 mg PO 4X/DAY PRN PRN 5 Days #40 tab 10/06/17 The following prescriptions were given: Diazepam [Valium] 5 mg PO 4X/DAY PRN PRN 5 Days #20 tab PRN Reason: Spasms HydromorphONE [Dilaudid] 2 - 4 mg PO 4X/DAY PRN PRN 5 Days #40 tab PRN Reason: Pain Clindamycin HCl [Cleocin] 300 mg PO TID #15 cap Primary Care Physician: Naheed Kam DO [Primary Care Provider] - Please Follow Up With: Elia Perrin MD When: one week. call [phone] for appt. Proposed Discharge Date: 10/06/17 10/06/17 7511 <Electronically signed by Elia Perrin MD> Date Elia Perrin MD CC: Filiberto Tilley MD; Carol Howard MD; Jorge Adams MD; Naheed Kam DO MRA HEAD ONLY WITHOUT Observed: 10/10/2017 Status: F Source: [place] CONTRAST 11:01 AM [facility] REPOSITORY [facility] Imaging Services [address] [place] [address] MRA Head ONLY without Contrast MR#: [id number] Acct: [id number] Name: SCHUYLER MCKEON Rep #: [id number] : 1990 F 27 From: Elio Bronson PCP: Naheed Kam DO Status: ADM OLEGARIO Study: MRA Head ONLY without Contrast Date of Exam: 10/10/17 Exam# [id number] Ordering Dr: Carol Howard MD STUDY: MRA OF THE HEAD WITHOUT CONTRAST REASON FOR EXAM: Female, 27 years old. vertigo, hearing loss right ear; symptoms started after right occipital bone lesion removal 10/06/17; prior fatty lesion removed same area 08/2016. TECHNIQUE: 3-D [id number] (TOF) imaging was performed with MIPs. The study was performed unenhanced. COMPARISON: None. FINDINGS: Normal bilateral petrous carotid arteries. Normal right cavernous carotid artery with a normal supraclinoid bifurcation. Normal left cavernous carotid artery with a normal supraclinoid bifurcation. Normal right A1 segments of the anterior cerebral artery. Normal left A1 segments of the anterior cerebral artery. Normal intact anterior communicating artery (ACOM). Normal bilateral A2 segments of the anterior cerebral arteries. Normal right M1 and M2 segments of the middle cerebral arteries, with a normal M1 bifurcation. Normal left M1 and M2 segments of the middle cerebral arteries, with a normal M1 bifurcation. Normal right posterior communicating artery (PCOM). Normal left posterior communicating artery (PCOM). Normal bilateral vertebral arteries. Normal basilar artery with a normal basilar bifurcation. The visualized bilateral superior cerebellar (SCA) arteries are normal. Normal bilateral P1, P2 and visualized P3 segments of the posterior cerebral arteries. There is no demonstrated aneurysm of the [place] of [place]. There is no major vessel occlusion or hemodynamically significant stenosis. There is no demonstrated abnormality of the visualized brain. MRI/MRA Head ONLY without Contrast IMPRESSION: Normal MRA of the head Electronically Signed: Elio Bronson MD at 13:14 EST Tel , Service support , CC: Carol Howard MD; Naheed Kam DO Horse Race Timer: Signed MRA NECK WITHOUT Observed: 10/10/2017 Status: F Source: [place] CONTRAST 11:01 [facility] REPOSITORY [facility] Imaging Services [address] [place] [address] MRA Neck without Contrast MR#: [id number] Acct: [id number] Name: SCHUYLER MCKEON Rep #: [id number] : 1990 F 27 From: Elio Bronson PCP: Naheed Kam DO Status: ADM OLEGARIO Study: MRA Neck without Contrast Date of Exam: 10/10/17 Exam# [id number] Ordering Dr: Carol Howard MD STUDY: MRA NECK WITHOUT CONTRAST REASON FOR EXAM: Female, 27 years old. vertigo, hearing loss right ear; symptoms started after right occipital bone lesion removal 10/06/17; prior fatty lesion removed same area 08/2016. TECHNIQUE: Source images were obtained, MIPs were performed. The study was performed unenhanced. COMPARISON: None. FINDINGS: RIGHT CAROTID ARTERIES: Normal right common carotid artery (CCA). Normal right common carotid bulb. Normal origin of the right internal carotid (ICA) artery without a hemodynamically significant stenosis. Normal visualized cervical portion of the right internal carotid artery. Normal origin of the right external carotid artery (ECA). LEFT CAROTID ARTERIES: Normal left common carotid artery (CCA). Normal left common carotid bulb. Normal origin of the left internal carotid (ICA) artery without a hemodynamically significant stenosis. Normal visualized cervical portion of the left internal carotid artery. Normal origin of the left external carotid artery (ECA). VERTEBRAL ARTERIES: Normal antegrade flow within the bilateral vertebral artery without a hemodynamically significant stenosis. MRI/MRA Neck without Contrast IMPRESSION: Normal bilateral cervical carotid and vertebral arteries. Electronically Signed: Elio Bronson MD at 13:16 EST Tel , Service support , CC: Carol Howard MD; Naheed Kam DO Horse Race Timer: Signed BRAIN WITHOUT Observed: 10/10/2017 Status: F Source: [place] CONTRAST 11:01 [facility] REPOSITORY [facility] Imaging Services [address] [place] [address] Brain without Contrast MR#: [id number] Acct: [id number] Name: SCHUYLER MCKEON Rep #: [id number] : 1990 F 27 From: Elio Bronson PCP: Naheed Kam DO Status: ADM OLEGARIO Study: Brain without Contrast Date of Exam: 10/10/17 Exam# [id number] Ordering Dr: Carol Howard MD STUDY: MRI BRAIN WITHOUT CONTRAST REASON FOR EXAM: Female, 27 years old. vertigo, hearing loss right ear; symptoms started after right occipital bone lesion removal 10/06/17; prior fatty lesion removed same area 08/2016. TECHNIQUE: Standardized multiplanar fat and water weighted pulse sequences were obtained. COMPARISON: None. FINDINGS: Normal size of the ventricles and extra-axial spaces for the patient's age. Normal white matter tracts of the supratentorial brain. Normal bilateral basal ganglia. Normal thalami. There is no extra-axial fluid accumulation. Normal flow voids within the major intracranial circulation suggesting patency by spin echo criteria. Normal sella turcica, pituitary gland, infundibular stalk, optic chiasm and hypothalamus. Normal tectal plate and pineal gland. Normal midbrain, maricel and medulla. Normal cerebellum. Normal basal cisterns. Normal bilateral temporal bones. Normal bilateral internal auditory canals. No demonstrated orbital abnormality, within the constraints of a routine brain study. Normal visualized paranasal sinuses. Right occipital soft tissue infiltration, consistent with history of surgical resection is noted. MRI/Brain without Contrast IMPRESSION: Normal unenhanced MRI of the brain. Electronically Signed: Elio Bronson MD at 13:49 EST Tel , Service support , CC: Carol Howard MD; Naheed Kam DO Horse Race Timer: Signed BRAIN/HEAD W/WO Observed: 10/08/2017 Status: F Source: [place] CONTRAST 10:11 [facility] REPOSITORY [facility] Imaging Services [address] [place] [address] [place] [address] Brain/Head W/WO Contrast MR#: [id number] Acct: [id number] Name: SCHUYLER MCKEON Rep #: [id number] : 1990 F 27 From: Ross Oconnor MD PCP: Naheed Kam DO Status: REG [facility] Study: Brain/Head W/WO Contrast Date of Exam: 10/08/17 Exam# [id number] Ordering Dr: Elia Perrin MD STUDY: CT BRAIN WITH AND WITHOUT CONTRAST REASON FOR EXAM: Female, 27 years old. Headache and dizziness. Status post excision of right occipital scalp mass. RADIATION DOSAGE (If Supplied By Facility): CTDIvol = ( 44.99 ) mGy, DLP = ( 1423.49 ) mGycm TECHNIQUE: Transaxial CT imaging of the brain was performed pre and post contrast administration. The examination was performed with intravenous administration of 80CC ml of Isovue 300 contrast material. Individualized dose optimization techniques were used for this CT. COMPARISON: None. FINDINGS: There is mild soft tissue swelling of the right occipital scalp. Normal calvarium. Normal size ventricles and extra-axial spaces for the patient's age. Normal white matter tracts of the cerebral hemispheres. Normal basal ganglia and thalami. Normal brainstem. Normal cerebellum. There is no intracranial hemorrhage. There are no findings of an acute ischemic infarction. Normal visualized paranasal sinuses. CT/Brain/Head W/WO Contrast IMPRESSION: No acute intracranial process. Electronically Signed: Ross Oconnor MD at 11:43 EST Tel , Service support , CC: Elia Perrin MD; Naheed Kam DO Horse Race Timer: Signed CBC-COMPLETE BLOOD CNT Collected: 10/08/2017 Status: F Source: [place] NO DIFF 7:16 AM [facility] REPOSITORY TYPE CODE TESTS RESULT OUT OF RANGE REFERENCE UNITS LAB L100.1000 4.4-11.0 K/mm3 Normal WBC 7.7 LAB L100.1200 4.2-5.4 M/mm3 Normal RBC 4.61 LAB L100.1300 12.0-15.0 g/dl Normal HGB 12.6 LAB L100.1400 37-47 % Normal HCT 39.6 LAB L100.1500 81-99 fL Normal MCV 85.9 LAB L100.1600 27.0-32.0 pg Normal MCH 27.3 LAB L100.1700 32-36 g/gl Low MCHC 31.8 LAB L100.1810 11.6-14.6 % Normal RDW CV 13.6 LAB L100.1820 35.1-43.9 fl Normal RDW SD 41.9 LAB L100.1900 150-450 K/mm3 Normal PLT 219 LAB L100.2000 6.2-12.0 fl Normal MPV 9.7 Performed By: #### L100.0500 #### [facility] [place], [place], [address] BASIC METABOLIC Collected: 10/08/2017 Status: F Source: [place] PROFILE (BMP) 7:16 AM [facility] REPOSITORY TYPE CODE TESTS RESULT OUT OF RANGE REFERENCE UNITS LAB L501.0100 74-106 mg/dL Normal GLU 83 LAB L501.1000 7-18 mg/dL Normal BUN 13 LAB L501.1100 0.55-1.02 mg/dL Normal 0.59 CREAT,SERUM Result Comment: The validity of the calculated GFR AND GFRAA in patients over 70 years has not been determined. Clinical correlation is essential. LAB L501.1110 >60 mL/min Normal EST GFR 128 Result Comment: Non- GFR Calc LAB L501.1115 >60 mL/min Normal EST GFR - AA 155 Result Comment: GFR Calc LAB L501.1255 ml/min Normal Estimated CRCL 101.97 LAB L501.1300 10-20 RATIO High BUN/CRE 21.9 LAB L501.2200 8.5-10 mg/dL .1 CA Normal 8.9 LAB L501.5300 136-14 mmol/L 5 NA Normal 140 LAB L501.5600 3.5-5. mmol/L 1 K Normal 4.0 LAB L501.5900 98-107 mmol/L CL Normal 103 LAB L501.6100 21.0-3 mmol/L High 2.0 CO2 34.0 LAB L501.6200 5-15 Low GAP 3 Performed By: #### L500.2500 #### [facility] [address] [facility] [place], [address] HISTORY AND PHYSICAL Observed: 10/07/2017 Status: F Source: [place] EXAM 11:46 PM [facility] REPOSITORY [facility] Medical Records Department [address] [place] [address] History and Physical 10/05/17 2217 MR#: [id number] Acct: [id number] Name: SCHUYLER MCKEON Rep #: [id number] : 1990 27 From: Elia Perrin MD PCP: Naheed Kam DO Status: REG SD Y Location: [facility] [id number] History and Physical Date of Admission: 10/06/17 HISTORY OF PRESENT ILLNESS 27 year old woman presents with a recurrent soft tissue mass on her right occipital scalp area that has increased in size over the last few months. There is some discomfort when she bumps it. She denies any trauma. She denies any fever. She denies any recent infection. She initially had a nodular lesion removed from this area in 08/[address] Saul. The Pathology was negative for carcinoma according to the patient. She states she had headaches that initially improved after that excision in 08/20, and they have since returned. She had a recent MRI which showed this nodular mass in the right occipital area and no intracranial component. PAST MEDICAL HISTORY Headaches. UTI's. Recurrent vaginitis. Anxiety. Depression. PAST SURGICAL HISTORY Excision right occipital nodular lesion - 08/20. MEDICATIONS Topamax. Valtrex. Diflucan. Nystatin-Triamcinolone ointment. Tylenol PM. ALLERGIES Oxycodone. SOCIAL HISTORY Patient does not smoke. Patient does not drink alcohol. FAMILY HISTORY Negative for skin cancer. Diabetes. Hypertension. REVIEW OF SYSTEMS General - Denies fever, weight loss. Has fatigue. ENT - Denies nasal congestion and sore throat. Eyes - Denies cataracts. Denies glaucoma. Endocrine - Denies excessive thirst or urination. Skin - Has recurrent painful soft tissue mass right occipital scalp. Musculoskeletal - Denies joint pain, joint stiffness, weakness of muscles and joints, back pain, and arthritis. Neuro - Has headaches. Has lightheadedness. Cardiovascular - Denies chest pain. Has fatigue. Has lightheadedness. Denies shortness of breath with exertion. Psych - Has anxiety. Has some depression. Respiratory - Denies shortness of breath. Denies chronic cough. Gastrointestinal - Denies nausea, vomiting, diarrhea, and constipation. Hematologic - Denies abnormal bruising and bleeding. Genitourinary - Denies urinary frequency. Has some hematuria. Has UTI's and recurrent vaginitis. PHYSICAL EXAMINATION General - Alert and oriented. HEENT - PERRL. EOMI. Throat is clear. On the right occipital scalp just inferior to a previous scar is a nodular lesion that is mobile. There is some adherence to the overlying skin. It measures 1.5 cm. Slight tenderness to palpation. No ulceration. No evidence of infection. No sensory deficits. Neck - Supple and nontender. No cervical adenopathy. Lungs - Clear to auscultation. Heart - Regular rate and rhythm. Abdomen - Soft and nondistended. Extremities - FROM. No axillary adenopathy. Radial pulses are palpable. Neuro - CN II - XII grossly intact. ASSESSMENT 1. 1.5 cm recurrent painful nodular lesion right occipital scalp. 2. Headaches. PLAN MRI reviewed. Recommend excision of this recurrent painful soft tissue mass right occipital scalp. Will send the lesion to Pathology for analysis to rule out carcinoma. Should be able to close the wound primarily. However with the history of previous excision, will remove the scar tissue along with the lesion. If the lesion is close to the skin, I may remove some additional skin to minimize recurence. This may necessitate a local skin flap for reconstruction. Doubt I would need to place a skin graft there. It was discussed with the patient that after surgery, there is the chance she may develop a small area of alopecia in the area of the scar. The patient voices understanding and wishes to proceed. Patient was informed of the risks and complications of the procedure including alternatives to surgery. These were discussed with her personally. She voices understanding and wishes to proceed. Some of the risks and complications of the procedure were included in a form from the [place] [employer]. Surgery will be done under general anesthesia on an outpatient basis. 10/07/17 2346 <Electronically signed by Elia Perrin MD> Date Elia Perrin MD Cosigner Signature: Date (if applicable) CC: Elia Perrin MD; Naheed Kam DO Signed CBC-COMPLETE BLOOD CNT Collected: 10/07/2017 Status: F Source: [place] NO DIFF 5:55 AM [facility] REPOSITORY TYPE CODE TESTS RESULT OUT OF RANGE REFERENCE UNITS LAB L100.1000 4.4-11.0 K/mm3 Normal WBC 10.0 LAB L100.1200 4.2-5.4 M/mm3 Normal RBC 4.29 LAB L100.1300 12.0-15.0 g/dl Low HGB 11.7 LAB L100.1400 37-47 % Low HCT 36.6 LAB L100.1500 81-99 fL Normal MCV 85.3 LAB L100.1600 27.0-32.0 pg Normal MCH 27.3 LAB L100.1700 32-36 g/gl Normal MCHC 32.0 LAB L100.1810 11.6-14.6 % Normal RDW CV 13.5 LAB L100.1820 35.1-43.9 fl Normal RDW SD 41.6 LAB L100.1900 150-450 K/mm3 Normal PLT 214 LAB L100.2000 6.2-12.0 fl Normal MPV 10.2 Performed By: #### L100.0500 #### [facility] [address] [place], [address] PREALBUMIN Collected: 10/07/2017 Status: F Source: [place] 5:55 AM [facility] REPOSITORY TYPE CODE TESTS RESULT OUT OF REFERENCE UNITS RANGE LAB L506.0500 20.0-40.0 mg/dL Low PREALBUMIN 18.3 Performed By: #### L506.0500 #### [facility] [address] [facility] [place], [address] BASIC METABOLIC Collected: 10/07/2017 Status: F Source: [place] PROFILE (BMP) 5:55 AM [facility] REPOSITORY TYPE CODE TESTS RESULT OUT OF RANGE REFERENCE UNITS LAB L501.0100 74-106 mg/dL Normal GLU 96 LAB L501.1000 7-18 mg/dL Normal BUN 8 LAB L501.1100 0.55-1.02 mg/dL Normal 0.64 CREAT,SERUM Result Comment: The validity of the calculated GFR AND GFRAA in patients over 70 years has not been determined. Clinical correlation is essential. LAB L501.1110 >60 mL/min Normal EST GFR 116 Result Comment: Non- GFR Calc LAB L501.1115 >60 mL/min Normal EST GFR - AA 141 Result Comment: GFR Calc LAB L501.1255 ml/min Normal Estimated CRCL 94.00 LAB L501.1300 10-20 RATIO Normal BUN/CRE 12.4 LAB L501.2200 8.5-10 mg/dL Low .1 CA 8.4 LAB L501.5300 136-14 mmol/L Normal 5 NA 142 LAB L501.5600 3.5-5. mmol/L Normal 1 K 3.7 LAB L501.5900 98-107 mmol/L Normal CL 107 LAB L501.6100 21.0-3 mmol/L Normal 2.0 CO2 27.0 LAB L501.6200 5-15 Normal GAP 8 Performed By: #### L500.2500 #### [facility] [address] [place], [address] LESION (CHOOSE SITE) Observed: 10/06/2017 Status: F Source: JULIANA 10:50 AM [facility] REPOSITORY Patient: SCHUYLER MCKEON : 1990 (27/F) Acct Num: [id number] Phys: Elia Perrin MD Unit Num: [id number] Loc: MS3 IF412-5 Specimen: [id number] Received: 10/07/17922 Spec Type: Lesion TISSUES TISSUES: Skin of scalp, NOS GROSS DESCRIPTION Received in fixative is one container labeled with the patient's name and designated recurrent painful bony lesion right occipital scalp. The specimen consists of multiple pieces of bone that in aggregate measure 2.5 x 2.5 x 0.3 cm. The entire specimen is submitted in one cassette after decalcification. / SJ:anila 10/07/17 TC:5 CPT: 93904, 83586 HEADER OPERATION: Excision submuscular bony lesion, right occipital scalp PRE-OP DIAGNOSIS: 1.5 cm recurrent painful nodular lesion right occipital scalp TISSUE SUBMITTED: Recurrent painful lesion right occipital scalp MICROSCOPIC DESCRIPTION Slides are reviewed. MICROSCOPIC DIAGNOSIS Recurrent painful lesion right occipital scalp, excision: Pieces of bone with reactive changes. Adherent pieces of fibroadipose tissue with mild chronic inflammation. Negative for malignancy. SJ:anila 10/12/17 Signed Maximilian Morris 10/12/17 <signature on file> Performed By: #### PLES #### [facility] [address] [place], [address] ,URINE Collected: 10/06/2017 Status: F Source: [place] 9:10 AM [facility] REPOSITORY TYPE CODE TESTS RESULT OUT OF REFERENCE UNITS RANGE LAB L400.8000 Negative Normal HCGUQUAL Negative Result Comment: Very dilute urine specimens, as indicated by a low specific gravity, may not contain lead customer service representative levels of hCG. If is still suspected, a first morning urine specimen should be collected 48 hours later and tested. Performed By: #### L400.7600 #### [facility] [place], [address] ALLERGIES ALLERGIES DATE TYPE / CODE NAME / CODE REACTION SEVERITY SOURCE 09/11/2018 Drug oxycodone/F0 Nausea Unknown [facility] Allergy/4160 [id number](RXN Hospital 64248(SNOMED ORM) Repository CT) 09/11/2018 Drug hydromorphon Other Unknown [place] [facility] Allergy/4160 e/[id number] Hospital 33984(SNOMED (RXNORM) Repository CT) 09/29/2017 Drug acetaminophe Nausea Unknown [facility] Allergy/4160 n/[id number] Hospital [facility](SNOMED (RXNORM) Repository CT) ENCOUNTERS ENCOUNTERS ADMIT/DISCHARGE ACCOUNT ADMITTING ENCOUNTER LOCATION SOURCE NUMBER CLASS 09/11/2018/ [id number] Ambulatory BMSBuilding:B [place] 9 3 [facility] Repository 08/23/2018 [id number] Ambulatory [place] 1 [facility] Hospital ing:US Repository 08/10/2018 [id number] Ambulatory [place] 1 [facility] Hospital ing:LAB Repository 08/10/2018/ [id number] Ambulatory BMSBuilding:B [place] 8 5 [facility] Repository 07/21/2018 [id number] Ambulatory [place] 0 [facility] ing:LAB Repository 07/10/2018/ [id number] Ambulatory BMSBuilding:B [place] 8 0 [facility] Repository 07/05/2018 [id number] Ambulatory [place] 3 [facility] ing:CT Repository 07/05/2018/ [id number] Ambulatory BMSBuilding:B [place] 8 6 [facility] Repository 06/13/2018 [id number] Ambulatory [place] 3 [facility] ing:LAB Repository 06/13/2018/ [id number] Ambulatory BMSBuilding:B [place] 8 8 [facility] Repository 04/28/2018 [id number] [facility] [place] [facility] Rep[facility] 04/20/2018/ [id number] Ambulatory BMSBuilding:B [place] 8 0 [facility] Repository 04/06/2018/ [id number] Emergency [place] 8 3 [facility] Hospital ing:ED Repository 03/24/2018/ [id number] Ambulatory BMSBuilding:B [place] 8 9 [facility] Repository 03/09/2018/ [id number] Ambulatory [place] 8 2 [facility] Hospital ing:[facility] Repository 03/09/2018 [id number] Ambulatory BMSBuilding:B [place] 6 MS.[facility] Repository 03/06/2018/ [id number] Ambulatory BMSBuilding:B [place] 8 7 [facility] Repository 03/03/2018 [id number] Ambulatory [place] 8 [facility] Hospital ing:LAB Repository 03/01/2018 [id number] Ambulatory [place] 7 [facility] Hospital ing:LAB Repository 02/22/2018 [id number] Ambulatory [place] 8 [facility] Hospital ing:LAB Repository 02/20/2018 [id number] Ambulatory [place] 4 [facility] Hospital ing:LAB Repository 02/20/2018/ [id number] Ambulatory BMSBuilding:B [place] 8 1 [facility] Repository 01/11/2018 [id number] Ambulatory [place] 3 [facility] Hospital ing:LABSPEC Repository 01/11/2018/ [id number] Ambulatory BMSBuilding:B [place] 8 9 [facility] Repository 10/08/2017/ [id number] Elia Perrin Ambulatory [place] 8 9 [facility] Hospital ing:LP3Prys: Repository MB740Vrm: 1 10/08/2017 [id number] Elia Perrin Ambulatory BMSBuilding:B [place] 9 MS.[facility] Repository 10/08/2017 [id number] Elia Perrin Ambulatory BMSBuilding:B [place] 9 [facility] Repository 10/08/2017 [id number] Elia Perrin Ambulatory BMSBuilding:B [place] 7 MS.[facility] Repository 10/07/2017 [id number] Ambulatory BMSBuilding:B [place] 9 MS.[facility] Repository 10/06/2017 [id number] Ambulatory BMSBuilding:B [place] 6 MS.[facility] Repository 09/29/2017/ [id number] Ambulatory BMSBuilding:B [place] 8 6 [facility] Repository PAYERS PAYERS ENCOUNTER GUARANTOR PAYER SUBSCRIBER SOURCE 09/11/2018 SCHUYLER Johnston Primary Insurance:[facility] SCHUYLER Johnston [place] [id number] [facility] WEBBDOB: [facility] [id number] Hospital 511[address]Ktr: (330) Number: Repository [phone] () [id number] Date:7127-74-76WK [address] [address]VDRDGHHOX, [place] [address]RF: CHECK WEBSITE 09/11/2018 Secondary NOT GIVENUNK [place] Insurance:SELF PAY [facility] Number: Effective Repository Date:2018-09-11 08/23/2018 SCHUYLER Johnston Primary Insurance:[facility] SCHUYLER Johnston [place] [id number] [facility] WEBBDOB: [facility] [id number] Hospital [address]Yoa: (330) Number: Repository [phone] () [id number] Date:1591-91-29AG [address] [address]SZIPXASZG, [place] [address]UO: CHECK WEBSITE 08/23/2018 Secondary NOT GIVENUNK [place] Insurance:SELF PAY [facility] Number: Effective Repository Date:2018-08-11 08/10/2018 SCHUYLER Johnston Primary Insurance:[facility] SCHUYLER Johnston [place] [id number] [facility] WEBBDOB: [facility] [id number] Hospital 94[address]Cgx: (330) Number: Repository [phone] () [id number] Date:2938-42-12WR [address] [address]WZKNVVVVZ, [place] [address]PT: CHECK WEBSITE 08/10/2018 Secondary NOT GIVENUNK [place] Insurance:SELF PAY [facility] Number: Effective Repository Date:2018-08-10 08/10/2018 SCHUYLER L Primary Insurance:[facility] SCHUYLER L [place] [id number] [facility] [id number] Hospital 880[address]Kbt: (330) Number: Repository [phone] () [id number] Date:7072-59-87UW [address] [address]CJWTXARJX, [place] [address]GE: CHECK WEBSITE 08/10/2018 Secondary NOT GIVENUNK [place] Insurance:SELF PAY [facility] Number: Effective Repository Date:2018-08-10 07/21/2018 SCHUYLER L Primary Insurance:[facility] SCHUYLER L [place] [id number] [facility] [id number] Hospital 750[address]Lhb: (330) Number: Repository [phone] () [id number] Date:3456-11-02PY [address] [address]EJNGGFPNO, [place] [address]OX: CHECK WEBSITE 07/21/2018 Secondary NOT GIVENUNK [place] Insurance:SELF PAY [facility] Number: Effective Repository Date:2018-07-21 07/10/2018 SCHUYLER L Primary Insurance:[facility] SCHUYLER L [place] [id number] [facility] [id number] Hospital 653[address]Scs: (330) Number: Repository [phone] () [id number] Date:0448-59-35ZZ [address] [address]YKOKQMCCM, [place] [address]AC: CHECK WEBSITE 07/10/2018 Secondary NOT GIVENUNK [place] Insurance:SELF PAY [facility] Number: Effective Repository Date:2018-07-10 07/05/2018 SCHUYLER L Primary Insurance:[facility] SCHUYLER L [place] [id number] [facility] [id number] Hospital 77[address]Zfn: (330) Number: Repository [phone] () [id number] Date:8974-18-29KG [address] [address]NKZLHEFGF, [place] [address]JB: CHECK WEBSITE 07/05/2018 Secondary NOT GIVENUNK [place] Insurance:SELF PAY [facility] Number: Effective Repository Date:2018-07-05 07/05/2018 SCHUYLER L Primary Insurance:[facility] SCHUYLER L [place] [id number] [facility] [id number] Hospital 47[address]Odg: (330) Number: Repository [phone] () [id number] Date:5424-24-48WP [address] [address]XMZGDABER, [place] [address]ST: CHECK WEBSITE 07/05/2018 Secondary NOT GIVENUNK [place] Insurance:SELF PAY [facility] Number: Effective Repository Date:2018-07-05 06/13/2018 SCHUYLER L Primary Insurance:[facility] SCHUYLER L [place] [id number] [facility] [id number] Hospital 17369Qtl: (330) Number: Repository [phone] () [id number] Date:6356-18-92GD [address] [address]AKELEYBMU, [place] [address]AL: CHECK WEBSITE 06/13/2018 Secondary NOT GIVENUNK [place] Insurance:SELF PAY [facility] Number: Effective Repository Date:2018-06-13 06/13/2018 SCHUYLER L Primary Insurance:[facility] SCHUYLER L [place] [id number] [facility]IN: [facility] 4275-61-26BBZSan [place] Number: Repository [phone]: (330) [id number] [phone] () Date:6340-83-74HA [address] [address]DKMPJCMRK, [place] [address]RV: CHECK WEBSITE 06/13/2018 Secondary NOT GIVENUNK [place] Insurance:SELF PAY [facility] Number: Effective Repository Date:2018-06-13 04/28/2018 SCHUYLER L Primary NOT GIVENUNK [place] [id number] Insurance:SELF [place]Y [place] Number: Effective Repository [phone]: (330) Date:2018-04-28 [phone] (HP) 04/20/2018 SCHUYLER L Primary Insurance:[facility] SCHUYLER L [place] [id number] [facility] 0896-13-19POGSan [place], [place] Number: Repository [phone]: 330 [id number] [phone] () Date:5130-13-88FO [address] [address]ZCWNURFOL, [place] [address]KI: CHECK WEBSITE 04/20/2018 Secondary NOT GIVENUNK [place] Insurance:SELF PAY [facility] Number: Effective Repository Date:2018-04-20 04/06/2018 SCHUYLER L Primary Insurance:[facility] SCHUYLER L [place] [id number] [facility]: [facility] 0165-85-72NUPSan [place] Number: Repository [phone]: 330 [id number] [phone] () Date:8570-02-70QQ [address] [address]MDBTVVIQT, [place] [address]VX: CHECK WEBSITE 04/06/2018 Secondary NOT GIVENUNK [place] Insurance:SELF PAY [facility] Number: Effective Repository Date:2018-04-06 03/24/2018 SCHUYLER L Primary Insurance:[facility] SCHUYLER L [place] [id number] [facility] 6900-18-40WPLSan [place], [place] Number: Repository [phone]: 330 [id number] [phone] () Date:1498-70-05PT [address] [address]NCAPIB[place], [place] [address]IF: CHECK WEBSITE 03/24/2018 Secondary NOT GIVENUNK [place] Insurance:SELF PAY [facility] Number: Effective Repository Date:2018-03-24 03/09/2018 SCHULYER L Primary Insurance:[facility] SCHUYLER L [place] [id number] [facility] 9041-47-58RVBSan [place], [place] Number: Repository [address]Yya: 330 [id number] [phone] () Date:9374-14-14VR [address] [address]XYSUVOCWA, [place] [address]ZJ: CHECK WEBSITE 03/09/2018 Secondary NOT GIVENUNK [place] Insurance:SELF PAY [facility] Number: Effective Repository Date:2018-03-06 03/09/2018 SCHUYLER L Primary Insurance:[facility] SCHUYLER L [place] [id number] [facility]: [facility] 5612-63-36PYESan [place] Number: Repository [phone]: 330 [id number] [phone] () Date:5397-17-06BM [address] [address]LQTDOOKKP, [place] [address]BE: CHECK WEBSITE 03/09/2018 Secondary NOT GIVENUNK [place] Insurance:SELF PAY [facility] Hospital Number: Effective Repository Date:2018-03-09 03/06/2018 SCHUYLER L Primary Insurance:[facility] SCHUYLER L [place] [id number] [facility] [facility]: [facility] 8976-74-34FWXSan [place], [place] Number: Repository [phone]: 330 [id number] [phone] () Date:9377-34-93IS [address] [address]FNDKIWJXA, [place] [address]LN: CHECK WEBSITE 03/06/2018 Secondary NOT GIVENUNK [place] Insurance:SELF PAY [facility] Number: Effective Repository Date:2018-03-06 03/03/2018 SCHUYLER L Primary Insurance:[facility] SCHUYLER L [place] [id number] [facility]OB: [facility] 4461-56-50ORZSan [place], [place] Number: Repository [phone]: 330 [id number] [phone] () Date:0661-11-33YP [address] [address]YESZRFVVM, [place] [address]FO: CHECK WEBSITE 03/03/2018 Secondary NOT GIVENUNK [place] Insurance:SELF PAY [facility] Number: Effective Repository Date:2018-03-03 03/01/2018 SCHUYLER L Primary Insurance:[facility] SCHUYLER Johnston [place] [id number] [facility]: [facility] 2325-09-07QUZSan [place], [place] Number: Repository [address]Iqo: 330 [id number] [phone] () Date:4995-20-05YS [address] [address]MSAPNGYZK, [place] [address]CD: CHECK WEBSITE 03/01/2018 Secondary NOT GIVENUNK [place] Insurance:SELF PAY [facility] Number: Effective Repository Date:2018-03-01 02/22/2018 SCHUYLER L Primary Insurance:[facility] SCHUYLER Escobaroster [id number] [facility]: [facility] 0811-23-81BULSan [place], [place] Number: Repository [phone]: 330 [id number] [phone] (HP) Date:4075-33-49VG [address] [address]FWPHUJMUH, [place] [address]WK: CHECK WEBSITE 02/22/2018 Secondary NOT GIVENUNK [place] Insurance:SELF PAY [facility] Number: Effective Repository Date:2018-02-22 02/20/2018 SCHUYLER L Primary Insurance:[facility] SCHUYLER Escobaroster [id number] [facility]: [facility] 0489-65-98FETSan [place], [place] Number: Repository [address]Skq: 330 [id number] [phone] (HP) Date:1864-27-30PX [address] [address]WLNDQNMOP, [place] [address]ZX: CHECK WEBSITE 02/20/2018 Secondary NOT GIVENUNK [place] Insurance:SELF PAY [facility] Number: Effective Repository Date:2018-02-20 02/20/2018 SCHUYLER Primary Insurance:[facility] SCHUYLER [place] [id number] [facility]: [facility] 8322-04-54KPOSan [place] Number: Repository [phone]: 330 [id number] [phone] (HP) Date:0691-60-69AJ [address] [address]JRJFMLPIL, [place] [address]UY: CHECK WEBSITE 02/20/2018 Secondary NOT GIVENUNK [place] Insurance:SELF PAY [facility] Number: Effective Repository Date:2018-02-20 01/11/2018 SCHUYLER Primary Insurance:[facility] SCHUYLER Andrews [id number] [facility]: [facility] 0608-77-75GDNSan [place] Number: Repository [phone]: 330 [id number] [phone] () Date:4971-62-67ZR [address] [address]ISXJAFFMN, [place] [address]YO: CHECK WEBSITE 01/11/2018 Secondary NOT GIVENUNK [place] Insurance:SELF PAY [facility] Number: Effective Repository Date:2018-01-11 01/11/2018 SCHUYLER Primary Insurance:[facility] SCHUYLER Andrews [id number] [facility]: [facility] 0587-47-35WRASan [place] Number: Repository [phone]: 330 [id number] [phone] () Date:5627-52-63VD [address] [address]WWJFIZWGD, [place] [address]NV: CHECK WEBSITE 01/11/2018 Secondary NOT GIVENUNK [place] Insurance:SELF PAY [facility] Number: Effective Repository Date:2018-01-11 10/08/2017 SCHUYLER Primary Insurance:[facility] SCHUYLER Andrews [id number] [facility]: [facility] 7150-94-41HFDSan [place] Number: Repository [address]Lsx: 330 [id number] [phone] () Date:4166-80-50FB [address] [address]MLPFFBDWQ, [place] [address]PK: CHECK WEBSITE 10/08/2017 Secondary NOT GIVENUNK [place] Insurance:SELF PAY [facility] Number: Effective Repository Date:2017-10-03 10/08/2017 SCHUYLER Primary Insurance:[facility] SCHUYLER Andrews [id number] [facility]: [facility] 2466-98-82HRBSan [place] Number: Repository [address]Nmc: 330 [id number] [phone] () Date:0287-32-36GO [address] [address]QUHZVJWFI, [place] [address]AJ: CHECK WEBSITE 10/08/2017 Secondary NOT GIVENUNK [place] Insurance:SELF PAY [facility] Number: Effective Repository Date:2017-10-08 10/08/2017 SCHUYLER Primary Insurance:[facility] SCHUYLER [place] [id number] [facility]: [facility] 4106-27-44FCISan [place] Number: Repository [address]Qof: 330 [id number] [phone] (HP) Date:1330-74-25HM [address] [address]VFIZTOGIC, [place] [address]UF: CHECK WEBSITE 10/08/2017 Secondary NOT GIVENUNK [place] Insurance:SELF PAY [facility] Number: Effective Repository Date:2017-10-08 10/08/2017 SCHUYLER Primary Insurance:[facility] SCHUYLER [place] [id number] [facility] 8638-33-30EVVSan [place], [place] Number: Repository [address]Rff: 330 [id number] [phone] () Date:2722-52-80FO [address] [address]MEQVSIXCK, [place] [address]FF: CHECK WEBSITE 10/08/2017 Secondary NOT GIVENUNK [place] Insurance:SELF PAY [facility] Number: Effective Repository Date:2017-10-08 10/07/2017 SCHUYLER Primary Insurance:[facility] SCHUYLER [place] [id number] [facility]EDOB: [facility] 2423-42-05GAXSan [place], [place] Number: Repository [address]Bkw: 330 [id number] [phone] () Date:9954-31-97SJ [address] [address]QPHXKASLV, [place] [address]NR: CHECK WEBSITE 10/07/2017 Secondary NOT GIVENUNK [place] Insurance:SELF PAY [facility] Number: Effective Repository Date:2017-10-07 10/06/2017 SCHUYLER Primary Insurance:[facility] SCHUYLER [place] [id number] [facility]ILLEDOB: [facility] 2129-76-17BMOSan [place] Number: Repository [address]Wjj: 330 [id number] [phone] () Date:3305-21-63JX [address] [address]HKDFMTPRP, [place] [address]EL: CHECK WEBSITE 10/06/2017 Secondary NOT GIVENUNK [place] Insurance:SELF PAY [facility] Number: Effective Repository Date:2017-10-06 09/29/2017 [facility] Primary Insurance:[facility] [facility] [address]: [facility] 0878-94-15VOBSan [place] Number: Repository [phone]: 330 [id number] [phone] () Date:1976-07-96ZI [address] [address]FWSZXMCUC, [place] [address]OI: CHECK WEBSITE 09/29/2017 Secondary NOT GIVENUNK [place] Insurance:SELF PAY [facility] Number: Effective Repository Date:2017-08-06
== END ==
PROVIDERS: Family Provider Family Medicine; PCP Family Medicine; Referring Provider Nurse Practitioner Women's Health; Visit Provider Nurse Practitioner Women's Health
DX: Z34.90 Encounter for supervision of normal pregnancy, unspecified, unspecified trimester (principal)
CPT/HCPCS: 76805

== ENCOUNTER → 2018-10-11 16:15 | Outpatient (CLI) | payer OTHER, SELFPAY ==
[2018-10-11 16:06] VITALS: BMI 24.5
== END ==
PROVIDERS: Family Provider Family Medicine; PCP Family Medicine; Referring Provider Obstetrics & Gynecology; Visit Provider Obstetrics & Gynecology
DX: O26.899 Other specified pregnancy related conditions, unspecified trimester (principal); R30.0 Dysuria; Z3A.00 Weeks of gestation of pregnancy not specified
CPT/HCPCS: 87086

== ENCOUNTER → 2018-10-21 09:20 | Outpatient (CLI) | payer OTHER, SELFPAY ==
[2018-10-11 16:06] VITALS: BMI 24.5
[2018-10-21 10:25] LABS: Absolute Lymphocyte Count 2.28 X10^3/ul (0.83-4.51); Absolute Neutrophil Count 12.8 X10^3/uL (2.0-7.7); Basophil# 0.01 X10^3/uL; Basophil% 0.1 % (0-1); Eosinophil# 0.09 X10^3/uL; Eosinophils% 0.6 % (0-5); Hematocrit 32.7 % (37-47); Hemoglobin 10.1 g/dl (12.0-15.0); Lymphocyte # 2.28 X10^3/ul (4.0); Mean Corp Hgb Conc 30.9 g/gl (32-36); Mean Corpuscular Hgb 25.5 pg (27.0-32.0); Mean Corpuscular Volume 82.6 fL (81-99); Mean Platelet Vol. 9.6 fl (6.2-12.0); Monocyte# 0.82 X10^3/uL; Neutrophil # 12.79 X10^3/uL (2.7-7.7); Neutrophil % 78.7 % (47-70); Platelet Count 286 K/mm3 (150-450); RBC Distribution Width CV 13.1 % (11.6-14.6); RBC Distribution Width SD 39.9 fl (35.1-43.9); Red Blood Count 3.96 M/mm3 (4.2-5.4); White Blood Count 16.3 K/mm3 (4.4-11.0)
[2018-10-21 10:26] LABS: POSITIVE COUNT NO; POSITIVE DIFFERENTIAL NO; POSITIVE MORPHOLOGY NO
[2018-10-21 10:49] LABS: Glucose Challenge Gest 1H 50g 141 mg/dL (70-140)
== END ==
PROVIDERS: Nurse Practitioner Women's Health; Family Provider Family Medicine; PCP Family Medicine; Referring Provider Obstetrics & Gynecology; Visit Provider Obstetrics & Gynecology
DX: Z34.90 Encounter for supervision of normal pregnancy, unspecified, unspecified trimester (principal)
CPT/HCPCS: 36415; 82950; 85025

== ENCOUNTER → 2018-10-23 08:43 | Outpatient (CLI) | payer OTHER, SELFPAY ==
[2018-10-23 07:55] VITALS: BMI 27.2
[2018-10-23 09:43] LABS: Absolute Lymphocyte Count 2.37 X10^3/ul (0.83-4.51); Absolute Neutrophil Count 10.1 X10^3/uL (2.0-7.7); Basophil# 0.02 X10^3/uL; Basophil% 0.1 % (0-1); Eosinophil# 0.09 X10^3/uL; Eosinophils% 0.7 % (0-5); Hematocrit 31.4 % (37-47); Hemoglobin 9.9 g/dl (12.0-15.0); Lymphocyte # 2.37 X10^3/ul (4.0); Lymphocyte % 17.2 % (19-41); Mean Corp Hgb Conc 31.5 g/gl (32-36); Mean Corpuscular Hgb 25.9 pg (27.0-32.0); Mean Corpuscular Volume 82.2 fL (81-99); Mean Platelet Vol. 9.8 fl (6.2-12.0); Monocyte# 0.98 X10^3/uL; Monocyte% 7.1 % (0-10); Neutrophil # 10.08 X10^3/uL (2.7-7.7); Platelet Count 294 K/mm3 (150-450); RBC Distribution Width CV 12.9 % (11.6-14.6); RBC Distribution Width SD 37.6 fl (35.1-43.9); Red Blood Count 3.82 M/mm3 (4.2-5.4); White Blood Count 13.8 K/mm3 (4.4-11.0)
[2018-10-23 09:44] LABS: POSITIVE COUNT NO; POSITIVE DIFFERENTIAL NO; POSITIVE MORPHOLOGY NO
[2018-10-23 10:25] LABS: ALB/GLOB Ratio 0.7 RATIO (0.9-2.4); AST(SGOT) 14 U/L (15-37); Alanine Aminotransfer ALT/SGPT 19 U/L (13-56); Albumin, Serum 2.6 g/dL (3.2-5.0); Alkaline Phosphatase 62 U/L (45-117); Anion Gap 10 (5-15); BUN 9 mg/dL (7-18); BUN/Creat Ratio 19.8 RATIO (10-20); Calcium,Total 8.5 mg/dL (8.5-10.1); Chloride 107 mmol/L (98-107); Creatinine, Serum 0.46 mg/dL (0.55-1.02); EST Glomerular Filtration Rate 173 mL/min (>60); Est Glom Filt Rate - Afr Amer 209 mL/min (>60); Globulin 3.9 g/dL (2.2-4.2); Glucose 75 mg/dL (74-106); Lipase 176 U/L (73-393); Potassium 3.9 mmol/L (3.5-5.1); Protein, Total 6.5 g/dL (6.4-8.2); Sodium Level 138 mmol/L (136-145)
== END ==
PROVIDERS: Family Provider Family Medicine; PCP Family Medicine; Referring Provider Obstetrics & Gynecology; Visit Provider Obstetrics & Gynecology
DX: O26.899 Other specified pregnancy related conditions, unspecified trimester (principal); R10.9 Unspecified abdominal pain; Z3A.00 Weeks of gestation of pregnancy not specified
CPT/HCPCS: 36415; 80053; 83690; 85025

== ENCOUNTER → 2018-11-01 16:31 | Outpatient (CLI) | payer OTHER, SELFPAY ==
[2018-10-30 08:50] VITALS: BMI 27.2
--- NOTE | 2018-11-01 16:33 | US_ITS ---
STUDY: SECOND AND THIRD TRIMESTER OBSTETRICAL ULTRASOUND - LIMITED REASON FOR EXAM: Female, 28 years old. growth. LMP: 04/10/2018 PRIOR ULTRASOUND: 08/23/2018. TECHNIQUE: Transabdominal TECHNICAL QUALITY: Adequate. FINDINGS: There is a single intrauterine fetus. The fetus is in a cephalic presentation. There is demonstrated cardiac activity with a heart rate of 136 bpm. There is a normal amniotic fluid volume. The largest amniotic fluid pocket measures 6.9 cm. The amniotic fluid index (CHUY) is 21.3 cm. The placenta is anterior in location and is not low lying. There are Grade 1 placental changes. The cervix measures 4.0 cm in length. BIOMETRY: BPD: 7.2: 28 weeks, 6 days HC: 26.6: 29 weeks, 0 days AC: 26.0: 30 weeks, 2 days FL: 5.6: 29 weeks, 5 days Age by LMP: 29 weeks, 2 days. MAEVE by LMP: 01/15/2019. age by prior US: 29 weeks, 2 days. MAEVE by prior US: 01/15/2019. age by current US: 29 weeks, 4 days. MAEVE by current US: 01/13/2019. Estimated weight: 1452 grams, +/- 212 grams, 55 percentile. Gender: US/OB Limited With Biometrics IMPRESSION: Single live fetus in a vertex presentation. survey not performed on this exam. Placenta is grade 1 and is not low-lying. Cervix is closed. age by current US: 29 weeks, 4 days. MAEVE by current US: 01/13/2019. Estimated weight: 1452 grams, +/- 212 grams, 55 percentile. Electronically Signed: Elkin Peres MD at 21:55 EST , Service support ,
== END ==
PROVIDERS: Family Provider Family Medicine; PCP Family Medicine; Referring Provider Obstetrics & Gynecology; Visit Provider Obstetrics & Gynecology
DX: O26.843 Uterine size-date discrepancy, third trimester (principal); Z3A.00 Weeks of gestation of pregnancy not specified
CPT/HCPCS: 76816

== ENCOUNTER → 2018-11-15 16:44 | Outpatient (CLI) | payer OTHER, SELFPAY ==
[2018-11-15 15:37] VITALS: BMI 30.2
== END ==
PROVIDERS: Family Provider Family Medicine; PCP Family Medicine; Referring Provider Nurse Practitioner Women's Health; Visit Provider Nurse Practitioner Women's Health
DX: O26.899 Other specified pregnancy related conditions, unspecified trimester (principal); R30.0 Dysuria; Z3A.00 Weeks of gestation of pregnancy not specified
CPT/HCPCS: 87086; 87088

== ENCOUNTER → 2018-11-22 16:39 | Outpatient (CLI) | payer OTHER, SELFPAY ==
[2018-11-15 15:37] VITALS: BMI 30.2
== END ==
PROVIDERS: Family Provider Family Medicine; PCP Family Medicine; Referring Provider Nurse Practitioner Women's Health; Visit Provider Nurse Practitioner Women's Health
DX: N39.0 Urinary tract infection, site not specified (principal)
CPT/HCPCS: 87086; 87088

== ENCOUNTER → 2018-12-06 15:13 | Outpatient (CLI) | payer OTHER, SELFPAY ==
[2018-12-06 14:24] VITALS: BMI 30.2
== END ==
PROVIDERS: Family Provider Family Medicine; PCP Family Medicine; Referring Provider Nurse Practitioner Women's Health; Visit Provider Nurse Practitioner Women's Health
DX: N39.0 Urinary tract infection, site not specified (principal)
CPT/HCPCS: 87086; 87088

== ENCOUNTER → 2018-12-18 14:40 | Outpatient (CLI) | payer OTHER, SELFPAY ==
[2018-12-11 08:20] VITALS: BMI 30.2
[2018-12-18 14:59] LABS: Absolute Lymphocyte Count 2.06 X10^3/ul (0.83-4.51); Absolute Neutrophil Count 9.5 X10^3/uL (2.0-7.7); Basophil# 0.01 X10^3/uL; Basophil% 0.1 % (0-1); Eosinophil# 0.05 X10^3/uL; Eosinophils% 0.4 % (0-5); Hematocrit 30.4 % (37-47); Hemoglobin 9.3 g/dl (12.0-15.0); Lymphocyte # 2.06 X10^3/ul (4.0); Lymphocyte % 16.2 % (19-41); Mean Corp Hgb Conc 30.6 g/gl (32-36); Mean Corpuscular Hgb 21.9 pg (27.0-32.0); Mean Corpuscular Volume 71.7 fL (81-99); Mean Platelet Vol. 9.9 fl (6.2-12.0); Monocyte% 7.1 % (0-10); Neutrophil # 9.49 X10^3/uL (2.7-7.7); Neutrophil % 74.3 % (47-70); Platelet Count 267 K/mm3 (150-450); RBC Distribution Width CV 16.1 % (11.6-14.6); RBC Distribution Width SD 41.3 fl (35.1-43.9); Red Blood Count 4.24 M/mm3 (4.2-5.4); White Blood Count 12.8 K/mm3 (4.4-11.0)
[2018-12-18 15:01] LABS: Differential Indicated SCAN CRITERIA MET; POSITIVE COUNT NO; POSITIVE DIFFERENTIAL NO; POSITIVE MORPHOLOGY YES
--- NOTE | 2018-12-18 16:23 | US_ITS ---
STUDY: SECOND AND THIRD TRIMESTER OBSTETRICAL ULTRASOUND - LIMITED REASON FOR EXAM: Female, 28 years old. growth. LMP: Provided MAEVE of January 15, 2019. PRIOR ULTRASOUND: August 23, 2018 and November 01, 2018. TECHNIQUE: Transabdominal TECHNICAL QUALITY: Adequate. FINDINGS: There is a single intrauterine fetus. The fetus is in a cephalic presentation. There is demonstrated cardiac activity with a heart rate of 152 bpm. There is a normal amniotic fluid volume. The largest amniotic fluid pocket measures 3.61 cm. The amniotic fluid index (CHUY) is 11.09 cm. The placenta is anterior in location and is not low lying. There are Grade 2 placental changes. The cervix is obscured. BIOMETRY: BPD: 8.86 cm: 35 weeks, 6 days HC: 31.86 cm: 36 weeks, 0 days AC: 34.52 cm: 38 weeks, 3 days FL: 7.07 cm: 36 weeks, 2 days Age by LMP: 36 weeks, 0 days. MAEVE by LMP: January 15, 2019.. age by prior US: 36 weeks, 0 days. MAEVE by prior US: January 15, 2019. age by current US: 36 weeks, 5 days. MAEVE by current US: January 10, 2019. Estimated weight: 3176 grams, +/- 464 grams, 85 percentile. US/OB Limited With Biometrics IMPRESSION: 1. Live single intrauterine at 36 weeks, 5 days. MAEVE is January 10, 2019. There is been adequate interval growth since the initial ultrasound. 2. EFW of 3176 g. 3. CHUY of 11.09 cm. 4. Anterior grade 2 placenta. 5. Vertex presentation. Electronically Signed: Mike Segura DO at 23:28 EDT Tel [phone], Service support ,
== END ==
PROVIDERS: Family Provider Family Medicine; PCP Family Medicine; Referring Provider Nurse Practitioner Women's Health; Visit Provider Nurse Practitioner Women's Health
DX: O99.019 Anemia complicating pregnancy, unspecified trimester (principal); O26.843 Uterine size-date discrepancy, third trimester; Z3A.00 Weeks of gestation of pregnancy not specified
CPT/HCPCS: 36415; 76816; 85025; 87081

== ENCOUNTER 2019-01-18 08:00 | Inpatient (IN) | payer OTHER, SELFPAY ==
[2019-01-17 16:45] VITALS: BMI 30.2
[2019-01-18] VITALS (11 sets, daily range): BP systolic 91–112; BP diastolic 50–69; PULSE 78–106; RESP 16–18; TEMP 36.3–37.6; O2SAT 96–99; BMI 31.7
[2019-01-18 06:49] LABS: ROM Internal Control Test YES-OK TO RESULT pt. (Internal QC); ROM Patient Test Negative (Negative)
[2019-01-18] MEDS: Nalbuphine 10 MG/ML Ampul IM (07:10)
--- NOTE | 2019-01-18 07:28 | OB.TRI.PN ---
Progress Notes Date of Service: 01/18/19 Laboratory Studies: Laboratory Tests 01/18/19 Range/Units 06:15 Vag Amniotic Fld Detect Negative (Negative)
[2019-01-18] MEDS: Lactated Ringers 1,000 ML 50 ML IV ×5 (08:22→17:30)
[2019-01-18 08:42] LABS: Absolute Lymphocyte Count 1.95 X10^3/ul (0.83-4.51); Absolute Neutrophil Count 16.7 X10^3/uL (2.0-7.7); Basophil# 0.01 X10^3/uL; Basophil% 0.1 % (0-1); Eosinophil# 0.02 X10^3/uL; Eosinophils% 0.1 % (0-5); Hematocrit 34.4 % (37-47); Hemoglobin 10.5 g/dl (12.0-15.0); Lymphocyte # 1.95 X10^3/ul (4.0); Lymphocyte % 9.8 % (19-41); Mean Corp Hgb Conc 30.5 g/gl (32-36); Mean Corpuscular Hgb 20.5 pg (27.0-32.0); Mean Corpuscular Volume 67.2 fL (81-99); Mean Platelet Vol. 9.8 fl (6.2-12.0); Monocyte# 1.05 X10^3/uL; Monocyte% 5.3 % (0-10); Neutrophil # 16.74 X10^3/uL (2.7-7.7); Neutrophil % 84.3 % (47-70); Platelet Count 281 K/mm3 (150-450); RBC Distribution Width CV 18.4 % (11.6-14.6); RBC Distribution Width SD 44.7 fl (35.1-43.9); Red Blood Count 5.12 M/mm3 (4.2-5.4); White Blood Count 19.9 K/mm3 (4.4-11.0)
[2019-01-18 08:44] LABS: Differential Indicated SCAN CRITERIA MET; POSITIVE COUNT NO; POSITIVE DIFFERENTIAL NO; POSITIVE MORPHOLOGY YES
[2019-01-18 09:05] LABS: Atypical Lymphocyte RARE %
[2019-01-18 09:06] LABS: Polychromasia RARE
[2019-01-18 09:07] LABS: Anisocytosis 1+; Hypochromasia RARE; Macrocytosis RARE
[2019-01-18] MEDS: fentaNYL-bupivacaine (epidural) 100 ML BAG EPIDURAL ×3 (09:20→18:10)
[2019-01-18] MEDS: Terbutaline 1 MG/ML Vial 0.25 MG SC (13:02)
[2019-01-18] MEDS: Acetaminophen 500 MG Tablet 1000 MG PO (14:09)
[2019-01-18] MEDS: Ondansetron 4 MG/2 ML Vial IV (17:30)
[2019-01-18] MEDS: Cefazolin 2 GM in 0.9% Normal Saline 100 ML IV (18:58)
[2019-01-18] MEDS: Oxytocin 30 units/NS 500 ml 30 UNITS/500 ML IV.SOLN 167 UNITS IV (19:00)
--- NOTE | 2019-01-18 19:45 | HP.PCM_ITS ---
- Problem List (1) Active labor at term Status: Acute (2) Uterine size-date discrepancy in third trimester Status: Acute Comment: growth us ordered (3) Abnormal glucose affecting Status: Acute Comment: 3hr GTT declined- did a week's worht of BS logs and all WNL. no diabetes. (4) Anemia affecting Status: Acute Qualifiers: Comment: check Hg at 36 weeks (5) History of hip fracture Status: Acute Comment: discussed and still recommend (6) Contraception management Status: Acute Qualifiers: Comment: IUD pp (7) Genital herpes Status: Acute Qualifiers: Comment: NOT to be discussed in front of partner. Suppressive valtrex 36 weeks (8) Status: Acute Qualifiers: Comment: nipt and NTD screening nl. carrier screening declined. anatomy scan reviewed. 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 she rosaie mary vb admits good fm co LOF but negative SROM. Medical History: Medical History (Last Reviewed 01/17/19 @ 16:27 by Simin Marin) Anxiety and depression F41.8 Frequent headaches R51 Mass of head R22.0 Urinary tract infection N39.0 Yeast infection B37.9 Surgical History: Surgical History (Last Reviewed 01/17/19 @ 16:27 by Simin Marin) History of dilation and curettage Z98.890 lumpectomy back of head (Resolved) Allergies hydromorphone [From Dilaudid] Adverse Reaction (Verified 01/18/19 06:41) Other Dizzy oxycodone [From Percocet] Adverse Reaction (Verified 01/18/19 06:41) Nausea Dizzy Home Medications: Home Medications acetaminophen 325 mg tablet 1,000 mg PO Q6H PRN 09/11/18 vitamin#30 30 mg iron-10 mg iron-folic acid 1 mg-omg3 capsule 1 cap PO DAILY cap 09/11/18 valacyclovir 500 mg tablet 500 mg PO DAILY #30 tab 12/11/18 Smoking Status: Never smoker Alcohol: None Number of Fetus(es): 1 Heart Tracin-150 mod variabiltiy reactive no decels toco q 3-4 History Past Pregnancies: Past Pregnancies Delivery Date Name GA/Weeks Outcome Route Weight Gender Labor Length Anesthesia Delivery Location Provider FOB Labs: Mom's Labs & Results 01/18/19 01/18/19 01/18/19 06:15 08:22 08:22 WBC 19.9 H RBC 5.12 Hgb 10.5 L Hct 34.4 L MCV 67.2 L MCH 20.5 L MCHC 30.5 L RDW 18.4 H RDW Differential 44.7 H Plt Count 281 MPV 9.8 Immature Gran % (Auto) 0.400 Neut % (Auto) 84.3 H Lymph % (Auto) 9.8 L Whitman % (Auto) 5.3 Eos % (Auto) 0.1 Baso % (Auto) 0.1 Absolute Neuts (auto) 16.7 H Absolute Lymphs (auto) 1.95 Total Counted Not Reportable Atypical Lymphocytes RARE Polychromasia RARE Hypochromasia RARE Anisocytosis 1+ Macrocytosis RARE Vag Amniotic Fld Detect Negative Blood Type A POSITIVE Antibody Screen NEGATIVE Course Did the patient receive Yes care? Labs Blood Type: A RH: POSITIVE RPR/VDRL/Syphilis Nonreactive Rubella status Immune HbSAg Negative Date Done: 06/13/18 Chlamydia Negative Gonorrhea Negative HIV/AIDS Non-Reactive Group B Strep: Negative Current Obstetrical History Gestational Diabetes No Incompetent Cervix No Infertility No IUGR No Macrosomia No Hypertension/Pre-eclampsia No Placenta Previa/Abruption No PTL/PROM No Uterine anomaly No Oligohydramnios No Polyhydramnios No Multiple gestation No Past Medical History Asthma No Diabetes No Hypertension No Heart disease No Mitral valve prolapse No Neurologic/Seizure disorder/ No Migraines Kidney disease No Liver disease No Varicosities No Clotting disorders/Hx of DVT No Thyroid Dysfunction No Other medical diseases No Psychiatric disorders No Major trauma No Abnormal PAP smear No Sleep apnea No Mammogram in the last 2 years No Social History Marital Status: SINGLE Alleged father Gallo Ma Hx Smoking No Smoking Status Never smoker How long have you used na substances (years)? Expected Infant Delivery Method: Spontaneous Vaginal Review of Systems Constitutional: Denies: Fever, Malaise Eyes: Denies: Blurred vision, Vision Change HEENT: Denies: Head Aches, Visual Changes Cardiovascular: Denies: Chest Pain, Palpitations Respiratory: Denies: Cough, Shortness of Breath, Wheezing Gastrointestinal: Reports: Abdominal Pain. Denies: Diarrhea, Nausea, Vomiting Genitourinary: Denies: Dysuria, Hematuria Gynecological: Reports: Vaginal discharge Musculoskeletal: Denies: Joint Pain, Muscle pain Skin: Denies: Lesions, Rash Neurological: Denies: Blurred vision, Focal weakness, Headaches Psychiatric: Denies: Anxiety, Depression Endocrine: Denies: Heat/ Cold Intolerance Hematologic/ Lymphatic: Denies: Easy Bruising, Easy Bleeding Physical Exam General: Alert, Cooperative, No apparent distress HEENT: Atraumatic, Normocephalic. Negative for: Thyromegaly, Lymphadenopathy Cardiovascular: Regular rate Lungs: Normal air movement Abdomen: Soft, Non Tender, Gravid Neurological: Deep Tendon Reflexes 2+/4 and Symmetrical, Neuro grossly intact. Negative for: Clonus STRIP MACHINE TENDER: Normal external genitalia. Negative for: Vulvar lesions Estimated gestational size: Large for gestational age - efw 8 lbs Presentation: Cephalic Cervix Dilation (cm): 4 Station: -1 Effacement (%): 80 Assessment/Plan All Active Problems (Last Reviewed 01/17/19 @ 16:27 by Simin Marin) Active labor at term (Acute) Uterine size-date discrepancy in third trimester (Acute) Abnormal glucose affecting (Acute) Anemia affecting (Acute) History of hip fracture (Acute) Contraception management (Acute) Genital herpes (Acute) (Acute) Supervision of normal (Acute) Abnormal glucose (Resolved) screening encounter (Resolved) Argueta's palsy (Resolved) Blurred vision, right eye (Resolved) Bone neoplasm (Resolved) Eye muscle twitches (Resolved) Headache (Resolved) Hip fracture (Resolved) Subacute on chronic vaginitis (Resolved) Trigeminal neuropathy (Resolved) lumpectomy back of head (Resolved) This is a 28 year-old, , at 40 weeks gestational age presents IAL admit IAL epidural gbs neg pit PRN
--- NOTE | 2019-01-18 19:45 | PCM.PN.BLA ---
Progress Note late entry- at 145 patient had breadycardia x 7 minutes that then recovered and patient was monitored and overall FHT was reassuring and so expectnant management was employed. she had an arrest of dilation and therefore pitocin was started. cat II tracing overall.
--- NOTE | 2019-01-18 19:48 | PCM.OPRPT ---
Problem List (1) Active labor at term Status: Acute (2) Uterine size-date discrepancy in third trimester Status: Acute Comment: growth us ordered (3) Abnormal glucose affecting Status: Acute Comment: 3hr GTT declined- did a week's worht of BS logs and all WNL. no diabetes. (4) Anemia affecting Status: Acute Qualifiers: Comment: check Hg at 36 weeks (5) History of hip fracture Status: Acute Comment: discussed and still recommend (6) Contraception management Status: Acute Qualifiers: Comment: IUD pp (7) Genital herpes Status: Acute Qualifiers: Comment: NOT to be discussed in front of partner. Suppressive valtrex 36 weeks (8) Status: Acute Qualifiers: Comment: nipt and NTD screening nl. carrier screening declined. anatomy scan reviewed. 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 Patient made progress to 6 cm and 80 prolonged heart rate deceleration x7 minutes but then had a good recovery. Patient continued to be expectantly managed but did have periods of minimal variability and intermittent late decelerations that would then recover and have a category 1 tracing and therefore Pitocin was started. When patient was 8 cm dilated she had a bradycardia for almost 10 minutes was still noted to be 8 cm and removed from delivery and therefore it was discussed with the patient and the decision was made for proceeding with a primary to intolerance to labor. The patient was placed in the dorsal supine position with leftward tilt. Patient was prepped and draped in the normal sterile fashion. Pfannenstiel skin incision was made with the scalpel and carried through to the underlying layer of fascia with the scalpel. Fascia was nicked in the midline and the incision extended laterally. The rectus bellies were dissected off superiorly and inferiorly with out complication both sharply and bluntly. The peritoneum was entered digitally. The incision was stretched and a low transverse uterine incision was made with the scalpel. The infant's head was delivered atraumatically followed by the anterior and posterior shoulders without complication the rest of the infant delivered. The cord was clamped and cut and the was handed off to awaiting nurse. The placenta was delivered spontaneously immediately following and was noted to be intact and have a three-vessel cord. The uterus was exteriorized cleared of all clots and debris, and the incision was closed in a double layer closure using #1 Monocryl. The uterus was returned to the maternal abdomen and gutters were cleared of all clots and debris. The ovaries and fallopian tubes were noted to be within normal limits. The peritoneum was closed with 3-0 Monocryl in a running fashion. Fascia was closed with 0 PDS in a running fashion. Subcutaneous tissue was copiously irrigated and the skin was closed with 3-0 Monocryl in a subcuticular fashion. Mepilex dressing were applied without complication. Patient was taken to recovery in stable condition. Amniotic Membrane Rupture Type: Artificial Amniotic Fluid Description: Clear Placenta Disposition: [facility] Specimen(s) sent to pathology: none Drain: [place] to straight drain Cord Entanglement: None Cord Vessel Description: 3 Vessels Esitmated Blood Loss (ml): 600 Infant Gender: Female Delayed cord clamping: Yes Pre-op Antibiotic Given: - - azithromycin 500mg Complications: None - Admit VTE Documentation VTE Present on Admission: No VTE Mechan Device Prophylaxis: SCD's
[2019-01-18] MEDS: Lactated Ringers 1,000 ML 100 ML IV (22:38)
--- NOTE | 2019-01-18 23:09 | NURSING ---
Epidural catheter removed, blue tip intact
[2019-01-19] VITALS (13 sets, daily range): BP systolic 91–102; BP diastolic 50–63; PULSE 62–98; RESP 16–18; TEMP 36.3–37.1; O2SAT 95–100
[2019-01-19] MEDS: 0.9% Saline Lock 10 ML Syringe IV ×4 (01:07→18:13)
[2019-01-19] MEDS: Ketorolac 30 MG/ML Syringe IV ×4 (01:07→18:13)
[2019-01-19 05:08] LABS: Hemoglobin 7.8 g/dl (12.0-15.0); Mean Corpuscular Hgb 20.1 pg (27.0-32.0); Platelet Count 262 K/mm3 (150-450); RBC Distribution Width CV 18.5 % (11.6-14.6); RBC Distribution Width SD 43.9 fl (35.1-43.9); Red Blood Count 3.88 M/mm3 (4.2-5.4); White Blood Count 23.3 K/mm3 (4.4-11.0)
[2019-01-19 05:21] LABS: Differential Comment SCANNED; Scan Indicated on CBC? Y/N YES- FLAGS NOTED
[2019-01-19] MEDS: Senna/Docusate Sodium 1 Tablet PO (09:00)
--- NOTE | 2019-01-19 22:02 | PCM.PN.OB ---
Patient Problems: Active and Suspected Problems (Last Reviewed 01/17/19 @ 16:27 by Simin Marin) Active labor at term (Acute) Subjective: doing well no complaints pain controlled no CP SOB N V ambulating well tolerating po lochia moderate, going well - Physical Exam General: Alert, Oriented x3 Vital Signs Temp Pulse Resp BP Pulse Ox 98.7 F 87 16 96/50 L 100 01/19/19 16:00 01/19/19 18:00 01/19/19 18:00 01/19/19 16:00 01/19/19 18:00 Oxygen Delivery Method Room Air Weight: 162 lb 7.691 oz Body Mass Index (BMI) 31.7 Intake and Output for Last 24 Hours 01/17/19 01/18/19 01/19/19 23:59 23:59 23:59 Intake Total 6251 / 6251 1027 / 1027 Output Total 1500 / 1500 1999 / 1999 Balance 4751 / 4751 -973 / -973 Laboratory Tests Past 24 Hrs 01/19/19 04:10 WBC 23.3 H RBC 3.88 L Hgb 7.8 L Hct 26.0 L MCV 67.0 L MCH 20.1 L MCHC 30.0 L RDW 18.5 H RDW Differential 43.9 Plt Count 262 MPV 10.0 Differential Comment SCANNED Medical Necessity - Tobacco Use Smoking Status: Never smoker Assessment/Plan All Active Problems (Last Reviewed 01/17/19 @ 16:27 by Simin Marin) Active labor at term (Acute) Uterine size-date discrepancy in third trimester (Acute) Abnormal glucose affecting (Acute) Anemia affecting (Acute) History of hip fracture (Acute) Contraception management (Acute) Genital herpes (Acute) (Acute) Supervision of normal (Acute) Abnormal glucose (Resolved) screening encounter (Resolved) Argueta's palsy (Resolved) Blurred vision, right eye (Resolved) Bone neoplasm (Resolved) Eye muscle twitches (Resolved) Headache (Resolved) Hip fracture (Resolved) Subacute on chronic vaginitis (Resolved) Trigeminal neuropathy (Resolved) lumpectomy back of head (Resolved) s/p LTCS PPD # 1 1. routine post care 2. breast feeding- support given 3. rh positive 4. rubella immune
[2019-01-19] MEDS: Acetaminophen 500 MG Tablet 1000 MG PO (22:27)
[2019-01-20] MEDS: Ketorolac 30 MG/ML Syringe IV ×4 (00:46→18:42)
[2019-01-20] MEDS: 0.9% Saline Lock 10 ML Syringe IV ×2 (00:46→06:46)
[2019-01-20 02:35] VITALS: BP 92/47; PULSE 80; RESP 20; TEMP 36.4; O2SAT 97
[2019-01-20 08:50] VITALS: BP 99/57; PULSE 81; RESP 16; TEMP 37.1; O2SAT 98
--- NOTE | 2019-01-20 09:15 | PCM.PN.OB ---
Patient Problems: Active and Suspected Problems (Last Reviewed 01/17/19 @ 16:27 by Simin Marin) Active labor at term (Acute) Subjective: doing well no complaints pain controlled no CP SOB N V ambulating well tolerating po lochia moderate, going well - Physical Exam General: Alert, Oriented x3 Vital Signs Temp Pulse Resp BP Pulse Ox 98.7 F 81 16 99/57 L 98 01/20/19 08:50 01/20/19 08:50 01/20/19 08:50 01/20/19 08:50 01/20/19 08:50 Oxygen Delivery Method Room Air Weight: 162 lb 7.691 oz Body Mass Index (BMI) 31.7 Intake and Output for Last 24 Hours 01/18/19 01/19/19 01/20/19 23:59 23:59 23:59 Intake Total 6251 / 6251 1027 / 1027 Output Total 1500 / 1500 1999 / 1999 Balance 4751 / 4751 -973 / -973 Medical Necessity - Tobacco Use Smoking Status: Never smoker Assessment/Plan All Active Problems (Last Reviewed 01/17/19 @ 16:27 by Simin Marin) Active labor at term (Acute) Uterine size-date discrepancy in third trimester (Acute) Abnormal glucose affecting (Acute) Anemia affecting (Acute) History of hip fracture (Acute) Contraception management (Acute) Genital herpes (Acute) (Acute) Supervision of normal (Acute) Abnormal glucose (Resolved) screening encounter (Resolved) Argueta's palsy (Resolved) Blurred vision, right eye (Resolved) Bone neoplasm (Resolved) Eye muscle twitches (Resolved) Headache (Resolved) Hip fracture (Resolved) Subacute on chronic vaginitis (Resolved) Trigeminal neuropathy (Resolved) lumpectomy back of head (Resolved) s/p LTCS PPD # 2 1. routine post care 2. breast feeding- support given 3. rh positive 4. rubella immune
--- NOTE | 2019-01-20 09:17 | DCINST_ITS ---
Discharge Diet: No Restrictions Discharge Activity: May Not Drive - for 2 weeks, May not drive while taking narcotic pain medications., May Shower, May Take a Tub Bath - in 7 days May resume sexual activity in: 4-6 weeks Lifting Restrictions: 20 pounds Additional Activity Instructions:: Nothing in the vagina for 4-6 weeks. You may return to work/school in 6 weeks. Call your doctor if your incision/area has: Continuous Slow Oozing, Sudden Increased Bleeding, Increased Pain/ Swelling, Increased Redness, Foul Smelling Discharge Call your doctor if you observe: Fever of 101 or Higher, Using more than one pad per hour - for 2 hours Suture Line Care: Avoid Pulling/Pushing, Avoid Pinching/Bending Cleanse incision/area with: Keep Dressing Clean & Dry Additional Instructions: If you experience any of the following, contact your healthcare provider. * Bleeding that soaks a pad every hour for 2 hours * Fever 100.4 or higher * Unrelieved incision or abdominal pain * Swelling, redness, discharge or bleeding from your incision or episiotomy site * Your incision begins to separate * Problems urinating (including inability to urinate or burning while urinating). * Visual changes * Severe headache * Flu-like symptoms * Pain or redness in one of both of your breasts * Pain, warmth, tenderness or swelling in your legs, especially the calf area * Frequent nausea and vomiting * Symptoms of depression or anxiety If you experience any of the following, call 911 or go to the nearest Emergency Room. * Chest pain * Problems breathing * Seizure activity * Partial or complete paralysis of a body part, slurred speech, weakness or drooping of the face, or a sudden inability to walk or hold your balance Allergies/Adverse Reactions: Allergies hydromorphone [From Dilaudid] Adverse Reaction (Verified 01/18/19 06:41) Other Dizzy oxycodone [From Percocet] Adverse Reaction (Verified 01/18/19 06:41) Nausea Dizzy Medications to take at Discharge acetaminophen 325 mg tablet 1,000 mg PO Q6H PRN 09/11/18 vitamin#30 30 mg iron-10 mg iron-folic acid 1 mg-omg3 capsule 1 cap PO DAILY cap 09/11/18 valacyclovir 500 mg tablet 500 mg PO DAILY #30 tab 12/11/18 Hydrocodone/Acetaminophen [[place] 5-325 Tablet] 1 each PO Q4H PRN PRN 4 Days #28 tablet 01/19/19 The following prescriptions were given: Hydrocodone/Acetaminophen [[place] 5-325 Tablet] 1 each PO Q4H PRN PRN 4 Days #28 tablet PRN Reason: Pain Follow-Up: Call to make an appointment with your doctor for an incision check in 1-2 weeks. You will also need a 6 week post- follow up appointment. Test results from this visit will be discussed in further detail at your follow- up appointment, if applicable. Please Follow Up With: Racheal Hartmann MD - Call to make an appointment for an incision check in 1-2 [phone] When: You will need a post- check in 6 weeks. Primary Care Physician: Naheed Kma DO [Primary Care Provider] -
[2019-01-20] MEDS: Senna/Docusate Sodium 1 Tablet PO (13:33)
[2019-01-20 13:35] VITALS: BP 102/59; PULSE 78; RESP 18; TEMP 36.8; O2SAT 98
[2019-01-20 20:15] VITALS: BP 102/62; PULSE 81; RESP 16; TEMP 37.3
[2019-01-20] MEDS: Naproxen 250 MG Tablet PO (23:22)
[2019-01-21 02:00] VITALS: BP 97/56; PULSE 84; RESP 16; TEMP 36.9
[2019-01-21] MEDS: Acetaminophen 500 MG Tablet 1000 MG PO (02:16)
--- NOTE | 2019-01-21 06:49 | PCM.PN.OB ---
Patient Problems: Active and Suspected Problems (Last Reviewed 01/17/19 @ 16:27 by Simin Marin) Active labor at term (Acute) Subjective: doing well no complaints pain controlled no CP SOB N V ambulating well tolerating po lochia moderate, going well - Physical Exam General: Alert, Oriented x3 Vital Signs Temp Pulse Resp BP Pulse Ox 98.4 F 84 16 97/56 L 98 01/21/19 02:00 01/21/19 02:00 01/21/19 02:00 01/21/19 02:00 01/20/19 13:35 Oxygen Delivery Method Room Air Weight: 162 lb 7.691 oz Body Mass Index (BMI) 31.7 Intake and Output for Last 24 Hours 01/19/19 01/20/19 01/21/19 23:59 23:59 23:59 Intake Total 1027 / 1027 Output Total 1999 Balance -973 / -973 Medical Necessity - Tobacco Use Smoking Status: Never smoker Assessment/Plan All Active Problems (Last Reviewed 01/17/19 @ 16:27 by Simin Marin) Active labor at term (Acute) Uterine size-date discrepancy in third trimester (Acute) Abnormal glucose affecting (Acute) Anemia affecting (Acute) History of hip fracture (Acute) Contraception management (Acute) Genital herpes (Acute) (Acute) Supervision of normal (Acute) Abnormal glucose (Resolved) screening encounter (Resolved) Argueta's palsy (Resolved) Blurred vision, right eye (Resolved) Bone neoplasm (Resolved) Eye muscle twitches (Resolved) Headache (Resolved) Hip fracture (Resolved) Subacute on chronic vaginitis (Resolved) Trigeminal neuropathy (Resolved) lumpectomy back of head (Resolved) s/p LTCS PPD # 3 1. routine post care 2. breast feeding- support given 3. rh positive 4. rubella immune
--- NOTE | 2019-01-21 06:50 | PCM.DC.SUM ---
Discharge Date and Diagnosis - Problem List Patient Problems: Active and Suspected Problems (Last Reviewed 01/17/19 @ 16:27 by Simin Marin) Active labor at term (Acute) Date of Admission: 03/09/18 Date of Discharge: 01/21/19 - Primary Discharge Diagnosis Active and Suspected Problems (Last Reviewed 01/17/19 @ 16:27 by Simin Marin) Active labor at term (Acute) - Secondary Discharge Diagnosis Chronic Problems (Last Reviewed 01/17/19 @ 16:27 by Simin Marin) Bone cyst (Chronic) benign right occipital bone cyst Migraine (Chronic) Hospital Course and Treatment Consultations 01/18/19 08:01 Consult: Anesthesia Routine Comment: Reason For Exam: LABOR Operations: - - Primary low transverse for heart rate bradycardia Summary of Care Provided: The patient is a 28 year old F who presented in active labor. Patient proceeded to 8 cm dilation and developed recurrent decelerations and then finally a bradycardia and therefore primary was done. patient underwent a section and had a routine recovery with a return of bowel and bladder function, was ambulating, voiding, and tolerating po, and was stable for discharge to home on POD 3. Patient Problems: Active and Suspected Problems (Last Reviewed 01/17/19 @ 16:27 by Simin Marin) Active labor at term (Acute) - Physical Exam Vital Signs Temp Pulse Resp BP Pulse Ox 98.4 F 84 16 97/56 L 98 01/21/19 02:00 01/21/19 02:00 01/21/19 02:00 01/21/19 02:00 01/20/19 13:35 Oxygen Delivery Method Room Air Weight: 162 lb 7.691 oz Body Mass Index (BMI) 31.7 Intake and Output for Last 24 Hours 01/19/19 01/20/19 01/21/19 23:59 23:59 23:59 Intake Total 1027 / 1027 Output Total 1999 Balance -973 / -973 Discharge Diet: No Restrictions Discharge Activity: May Not Drive - for 2 weeks, May not drive while taking narcotic pain medications., May Shower, May Take a Tub Bath - in 7 days May resume sexual activity in: 4-6 weeks Additional Activity Instructions:: Nothing in the vagina for 4-6 weeks. You may return to work/school in 6 weeks. Call your doctor if your incision/area has: Continuous Slow Oozing, Sudden Increased Bleeding, Increased Pain/ Swelling, Increased Redness, Foul Smelling Discharge Call your doctor if you observe: Fever of 101 or Higher, Using more than one pad per hour - for 2 hours Suture Line Care: Avoid Pulling/Pushing, Avoid Pinching/Bending Cleanse incision/area with: Keep Dressing Clean & Dry Home Medications: Medications to take at Discharge acetaminophen 325 mg tablet 1,000 mg PO Q6H PRN 09/11/18 vitamin#30 30 mg iron-10 mg iron-folic acid 1 mg-omg3 capsule 1 cap PO DAILY cap 09/11/18 valacyclovir 500 mg tablet 500 mg PO DAILY #30 tab 12/11/18 Hydrocodone/Acetaminophen [[place] 5-325 Tablet] 1 each PO Q4H PRN PRN 4 Days #28 tablet 01/19/19 Following Prescrptions Were Given to Patient: Hydrocodone/Acetaminophen [[place] 5-325 Tablet] 1 each PO Q4H PRN PRN 4 Days #28 tablet PRN Reason: Pain Primary Care Physician: Naheed Kam DO [Primary Care Provider] - Please Follow Up With: Racheal Hartmann MD - Call to make an appointment for an incision check in 1-2 [phone] When: You will need a post- check in 6 weeks. Medical Necessity - Tobacco Use Smoking Status: Never smoker Meaningful Use Info Meaningful Use Diagnoses (Choose all that apply): None applicable
[2019-01-21] MEDS: Naproxen 250 MG Tablet PO (08:42)
[2019-01-21 09:00] VITALS: BP 98/68; PULSE 66; RESP 18; TEMP 36.6; O2SAT 99
--- NOTE | 2019-01-25 17:15 | NURSING ---
States getting incision checked tomorrow by doctor has some white on edge of incision. Had good stay and states Adore and Sarahy Corcoran were the best.
== END 2019-01-21 12:15 | disposition home or self-care (01) | DRG 787 ==
LOC: WPOUT 08:06 → WP 19:10
PROVIDERS: Admitting Provider Obstetrics & Gynecology; Family Provider Family Medicine; PCP Family Medicine; Referring Provider Obstetrics & Gynecology; Visit Provider Obstetrics & Gynecology
DX: O76 Abnormality in fetal heart rate and rhythm complicating labor and delivery (principal); O98.32 Other infections with a predominantly sexual mode of transmission complicating childbirth; A60.00 Herpesviral infection of urogenital system, unspecified; Z37.0 Single live birth; Z3A.40 40 weeks gestation of pregnancy; O99.814 Abnormal glucose complicating childbirth; O62.0 Primary inadequate contractions
CPT/HCPCS: 59025; 59050; 84112; 85025; 85027; 86850; 86900; 94799; 99218; J7120; A4216; G0378; J2405

== ENCOUNTER → 2019-02-26 | Outpatient (CLI) | payer OTHER, SELFPAY ==
[2019-02-26 09:51] VITALS: BMI 27.3
[2019-02-26 12:18] LABS: T4 Free Direct 1.19 ng/dL (0.76-1.46); Thyroid Stim Hormone (TSH) 0.68 uIU/mL (0.358-3.74)
== END | disposition home or self-care (01) ==
PROVIDERS: Family Provider Family Medicine; PCP Family Medicine; Referring Provider Obstetrics & Gynecology; Visit Provider Obstetrics & Gynecology
DX: E01.0 Iodine-deficiency related diffuse (endemic) goiter (principal)
CPT/HCPCS: 36415; 84439; 84443

== ENCOUNTER → 2019-03-01 | Outpatient (CLI) | payer OTHER, SELFPAY ==
[2019-02-26 09:51] VITALS: BMI 27.3
--- NOTE | 2019-03-01 07:52 | US_ITS ---
STUDY: THYROID ULTRASOUND REASON FOR EXAM: Female, 28 years old. TECHNIQUE: Ultrasound evaluation of the thyroid was performed with real-time and static soriano-scale imaging. COMPARISON: None. FINDINGS: RIGHT LOBE: The right lobe of the thyroid gland measures 4.6 x 1.7 x 1.1 cm. There is a homogeneous echotexture. There are no demonstrated solid, cystic or complex lesions. LEFT LOBE: The left lobe of the thyroid gland measures 4. 2 x 2 x 1.2 cm cm. There is a homogeneous echotexture. There are no demonstrated solid, cystic or complex lesions. ISTHMUS: The isthmus measures 3 mm . The regional lymph nodes are normal. US/Thyroid IMPRESSION: Normal ultrasound examination of the thyroid. Electronically Signed: Trish Rivas, at 15:27 EDT Tel , Service support ,
== END | disposition home or self-care (01) ==
LOC: US 07:51
PROVIDERS: Family Provider Family Medicine; PCP Family Medicine; Referring Provider Obstetrics & Gynecology; Visit Provider Obstetrics & Gynecology
DX: E01.0 Iodine-deficiency related diffuse (endemic) goiter (principal)
CPT/HCPCS: 76536

== ENCOUNTER → 2019-07-03 | Outpatient (CLI) | payer OTHER, SELFPAY ==
[2019-06-25 11:57] VITALS: BMI 27.3
[2019-07-03 09:29] LABS: T4 Free Direct 1.12 ng/dL (0.76-1.46); Thyroid Stim Hormone (TSH) 0.66 uIU/mL (0.358-3.74)
== END | disposition home or self-care (01) ==
LOC: LAB 08:54
PROVIDERS: Family Provider Family Medicine; PCP Family Medicine; Referring Provider Obstetrics & Gynecology; Visit Provider Obstetrics & Gynecology
DX: E01.0 Iodine-deficiency related diffuse (endemic) goiter (principal); L65.9 Nonscarring hair loss, unspecified
CPT/HCPCS: 84439; 84443

== ENCOUNTER → 2019-07-31 08:40 | Outpatient (CLI) | payer OTHER, SELFPAY ==
[2019-06-25 11:57] VITALS: BMI 27.3
== END ==
PROVIDERS: Family Provider Family Medicine; PCP Family Medicine; Referring Provider Chiropractor; Visit Provider Chiropractor
DX: M99.01 Segmental and somatic dysfunction of cervical region (principal); M99.02 Segmental and somatic dysfunction of thoracic region
CPT/HCPCS: 72040

== ENCOUNTER → 2020-03-05 15:54 | Outpatient (CLI) | payer OTHER, SELFPAY ==
[2020-03-05 15:54] VITALS: BMI 26.6
[2020-03-05 16:24] LABS: Absolute Lymphocyte Count 3.25 X10^3/uL (0.83-4.51); Absolute Neutrophil Count 5.3 X10^3/uL (2.0-7.7); Basophil# 0.04 X10^3/uL; Basophil% 0.4 % (0-1); Eosinophils% 1.1 % (0-5); Hematocrit 43.3 % (37-47); Hemoglobin 13.3 g/dL (12.0-15.0); Lymphocyte # 3.25 X10^3/ul (4.0); Lymphocyte % 35.1 % (19-41); Mean Corp Hgb Conc 30.7 g/dL (32-36); Mean Corpuscular Volume 84.6 fL (81-99); Mean Platelet Vol. 9.8 fl (6.2-12.0); Monocyte# 0.58 X10^3/uL; Monocyte% 6.3 % (0-10); NRBC Flagged by Analyzer 0 % (0-5); Neutrophil # 5.28 X10^3/uL (2.7-7.7); Neutrophil % 56.9 % (47-70); Platelet Count 274 K/mm3 (150-450); RBC Distribution Width CV 13.9 % (11.6-14.6); Red Blood Count 5.12 M/mm3 (4.2-5.4); White Blood Count 9.3 K/mm3 (4.4-11.0)
[2020-03-05 17:07] LABS: ALB/GLOB Ratio 1.1 RATIO (0.9-2.4); AST(SGOT) 13 U/L (15-37); Alanine Aminotransfer ALT/SGPT 19 U/L (13-56); Albumin, Serum 3.9 g/dL (3.2-5.0); Alkaline Phosphatase 75 U/L (45-117); Anion Gap 4 (5-15); BUN 14 mg/dL (7-18); BUN/Creat Ratio 17.3 RATIO (10-20); Calcium,Total 8.8 mg/dL (8.5-10.1); Chloride 109 mmol/L (98-107); Creatinine, Serum 0.81 mg/dL (0.55-1.02); EST Glomerular Filtration Rate 88 mL/min (>60); Est Glom Filt Rate - Afr Amer 107 mL/min (>60); Ferritin 10 ng/mL (8-252); Globulin 3.7 g/dL (2.2-4.2); Glucose 105 mg/dL (74-106); Iron 29 ug/dL (50-170); Potassium 3.9 mmol/L (3.5-5.1); Protein, Total 7.6 g/dL (6.4-8.2); Sodium Level 142 mmol/L (136-145)
[2020-03-05 17:08] LABS: Vitamin B12 339 pg/mL (211-911)
== END ==
PROVIDERS: PCP Family Medicine; Referring Provider Family Medicine; Visit Provider Family Medicine
DX: R20.2 Paresthesia of skin (principal); D64.9 Anemia, unspecified; Z51.81 Encounter for therapeutic drug level monitoring
CPT/HCPCS: 36415; 80053; 82607; 82728; 82746; 83540; 85025

== ENCOUNTER → 2020-03-14 07:10 | Outpatient (CLI) | payer OTHER, SELFPAY ==
[2020-03-11 11:39] VITALS: BMI 27.3
--- NOTE | 2020-03-14 07:18 | MRI_ITS ---
STUDY: MRI BRAIN WITH AND WITHOUT CONTRAST REASON FOR EXAM: Female, 29 years old. migraines, FACIAL BILATERAL CHEEKS NUMBNESS, H/O NODULE REMOVAL POSTERIOR HEAD TECHNIQUE: Standardized multiplanar fat and water weighted pulse sequences were obtained. IV 12cc dotarem was administered for the contrast portion of the examination. COMPARISON: FINDINGS: Normal size of the ventricles and extra-axial spaces for the patient''s age. Normal white matter tracts of the supratentorial brain. There is no evidence for recent intracranial ischemia or other cause of cytotoxic edema on diffusion weighted imaging (DWI). Normal T2* images of the brain without demonstrated susceptibility artifact. There is no demonstrated hemosiderin stain. Normal bilateral basal ganglia. Normal thalami. There is no extra-axial fluid accumulation. Normal flow voids within the major intracranial circulation suggesting patency by spin echo criteria. Normal venous enhancement. There is no enhancing intra-axial or extra-axial abnormality. Normal sella turcica, pituitary gland, infundibular stalk, optic chiasm and hypothalamus. Normal tectal plate and pineal gland. Normal midbrain, maricel and medulla. Normal cerebellum. Normal basal cisterns. Normal bilateral temporal bones. Normal bilateral internal auditory canals. No demonstrated orbital abnormality, within the constraints of a routine brain study. Normal visualized paranasal sinuses. Normal calvarium and skull base. Normal visualized soft tissue structures. Normal visualized upper cervical spine. MRI/Brain W/WO Contrast IMPRESSION: Normal unenhanced and enhanced MRI of the brain. Electronically Signed: Magen Rosas MD at 9:41 EDT Tel , Service support ,
== END ==
PROVIDERS: PCP Family Medicine; Referring Provider Family Medicine; Visit Provider Family Medicine
DX: G43.909 Migraine, unspecified, not intractable, without status migrainosus (principal); R22.0 Localized swelling, mass and lump, head; R20.2 Paresthesia of skin
CPT/HCPCS: 70553; A9575

== ENCOUNTER → 2020-05-06 16:05 | Outpatient (CLI) | payer OTHER, SELFPAY ==
[2020-05-06 15:42] VITALS: BMI 27.3
[2020-05-06 17:56] LABS: HIV - WCH Non-Reactive (Nonreactive)
[2020-05-08 06:29] LABS: Rapid Plasmin Reagin (RPR) NONREACTIVE (NONREACTIVE)
[2020-05-08 20:07] LABS: Chlamydia By Nucleic Acid AMP Negative (Negative)
[2020-05-08 20:53] LABS: Gonococcus By Nucleic Acid AMP Negative (Negative)
[2020-05-09 03:07] LABS: HCV Quant. RNA PCR HCV Not Detected IU/mL (.)
== END ==
PROVIDERS: PCP Family Medicine; Referring Provider Nurse Practitioner Women's Health; Visit Provider Nurse Practitioner Women's Health
DX: Z11.3 Encounter for screening for infections with a predominantly sexual mode of transmission (principal)
CPT/HCPCS: 36415; 86592; 86703; 87491; 87522; 87591

== ENCOUNTER → 2020-06-11 10:04 | Outpatient (CLI) | payer OTHER, SELFPAY ==
[2020-06-10 14:56] VITALS: BMI 27.3
[2020-06-11 10:14] LABS: Bacteria 0 SEEN /hpf (None Seen); Mucous, Urine 0 SEEN /hpf (<or=2+); Red Blood Cells-Urine 0 SEEN /hpf (0-5); Squamous Epithelial Cells - UA 0 SEEN /hpf (5-10); White Blood Cells 0 SEEN /hpf (0-5)
[2020-06-11 10:22] LABS: Color, Urine Yellow (Yellow); Glucose, Dipstick Normal (Normal); Ketone-Dipstick Negative (Negative); Leukocyte Esterase-Dipstick Negative /ul (Negative); Nitrite-Dipstick Negative (Negative); Occult Blood-Urine Negative /ul (Negative); Protein-Dipstick Negative (Negative); Urine Bilirubin Dipstick Negative (Negative); Urine Clarity Clear (Clear); Urine Urobilinogen Normal (Normal)
== END ==
PROVIDERS: PCP Family Medicine; Visit Provider Physician Assistant Surgical
DX: R10.9 Unspecified abdominal pain (principal)
CPT/HCPCS: 81001; 87086

== ENCOUNTER → 2020-06-20 | Outpatient (CLI) | payer OTHER, SELFPAY ==
[2020-06-10 14:56] VITALS: BMI 27.3
== END | disposition home or self-care (01) ==
LOC: LABSPEC 14:20
PROVIDERS: PCP Family Medicine; Visit Provider Family Medicine
DX: N73.0 Acute parametritis and pelvic cellulitis (principal)
CPT/HCPCS: 87210

== ENCOUNTER → 2020-09-17 15:54 | Outpatient (CLI) | payer OTHER, SELFPAY ==
[2020-06-10 14:56] VITALS: BMI 27.3
[2020-09-17 18:20] LABS: Internal QC Validated? YES +Cl - CLEAR BKGD; Pregnancy, Urine Negative Negative
== END ==
PROVIDERS: PCP Family Medicine; Referring Provider Dermatology; Visit Provider Dermatology
DX: L70.0 Acne vulgaris (principal); Z79.899 Other long term (current) drug therapy
CPT/HCPCS: 81025

== ENCOUNTER → 2020-09-18 06:13 | Outpatient (CLI) | payer OTHER, SELFPAY ==
[2020-06-10 14:56] VITALS: BMI 27.3
[2020-09-18 07:12] LABS: Absolute Lymphocyte Count 2.09 X10^3/uL (0.83-4.51); Absolute Neutrophil Count 5.2 X10^3/uL (2.0-7.7); Basophil# 0.03 X10^3/uL; Basophil% 0.4 % (0-1); Eosinophil# 0.09 X10^3/uL; Eosinophils% 1.2 % (0-5); Hematocrit 45.9 % (37-47); Lymphocyte # 2.09 X10^3/ul (4.0); Lymphocyte % 26.8 % (19-41); Mean Corp Hgb Conc 30.5 g/dL (32-36); Mean Corpuscular Hgb 25.5 pg (27.0-32.0); Mean Corpuscular Volume 83.8 fL (81-99); Mean Platelet Vol. 9.7 fl (6.2-12.0); Monocyte# 0.41 X10^3/uL; Monocyte% 5.3 % (0-10); NRBC Flagged by Analyzer 0 % (0-5); Neutrophil # 5.15 X10^3/uL (2.7-7.7); Neutrophil % 65.9 % (47-70); Platelet Count 281 K/mm3 (150-450); RBC Distribution Width CV 13.4 % (11.6-14.6); RBC Distribution Width SD 41.7 fl (35.1-43.9); Red Blood Count 5.48 M/mm3 (4.2-5.4); White Blood Count 7.8 K/mm3 (4.4-11.0)
[2020-09-18 07:42] LABS: AST(SGOT) 9 U/L (15-37); Alanine Aminotransfer ALT/SGPT 17 U/L (13-56); Albumin, Serum 3.9 g/dL (3.2-5.0); Alkaline Phosphatase 67 U/L (45-117); Bilirubin, Direct 0.14 mg/dL (0.00-0.30); Cholesterol 191 mg/dL (200); Globulin 3.7 g/dL (2.2-4.2); High Density Lipoprotein 52 mg/dL; Protein, Total 7.6 g/dL (6.4-8.2); Triglycerides 78 mg/dL; Very Low Density Lipoprotein 16 mg/dL (5-40)
== END ==
PROVIDERS: PCP Family Medicine; Referring Provider Dermatology; Visit Provider Dermatology
DX: L70.0 Acne vulgaris (principal); Z79.899 Other long term (current) drug therapy
CPT/HCPCS: 36415; 80061; 80076; 85025

== ENCOUNTER → 2020-10-21 11:56 | Outpatient (CLI) | payer OTHER, SELFPAY ==
[2020-06-10 14:56] VITALS: BMI 27.3
[2020-10-21 15:50] LABS: Internal QC Validated? YES +Cl - CLEAR BKGD; Pregnancy, Urine Negative Negative
== END ==
PROVIDERS: PCP Family Medicine; Referring Provider Dermatology; Visit Provider Dermatology
DX: L70.0 Acne vulgaris (principal); Z79.899 Other long term (current) drug therapy
CPT/HCPCS: 81025

== ENCOUNTER 2020-11-03 12:35 | Emergency (ER) | payer OTHER, SELFPAY ==
[2020-06-10 14:56] VITALS: BMI 27.3
[2020-11-03 12:36] VITALS: BP 118/72; PULSE 81; RESP 18; TEMP 36.4; O2SAT 100; BMI 26.4
--- NOTE | 2020-11-03 12:46 | ED.DCSUM_ITS ---
History of Present Illness Chief Complaint: Dizziness Informant: Patient Narrative: 30-year-old female presenting with lightheadedness. She states it feels like she is off balance. She admits to an early migraine. She states her headaches typically start off mild and then transition into migraine headache. She states this is how her head feels currently. Patient also admits to feeling of palpitations when she is standing. Today she felt like she might faint. Patient has not had a syncopal episode. She denies chest pain or shortness of breath. She states she is not concerned for as she is not had sexual intercourse recently. Urinary complaints. No GI complaints. Prior similar symptoms: Yes Recent Illness/Hospitalization: No Past Medical History - Allergies and Home Meds Allergies/Adverse Reactions: Allergies hydromorphone [From Dilaudid] Adverse Reaction (Verified 11/03/20 12:39) Other Dizzy oxycodone [From Percocet] Adverse Reaction (Verified 11/03/20 12:39) Nausea Dizzy Primary Care Physician: Naheed Kam DO [Primary Care Provider] - Prior records reviewed: Yes Past Medical History: - - Migraine headaches Surgical History: noncontributory Lives: Spouse/ Significant Other Smoking Status: Never smoker Alcohol: None Drugs: None Review of Systems General: Denies: Chills, Fever, Sweats Eyes: Denies: Visual changes - bilaterally, Diplopia ENT: Denies: Rhinorrhea, Sore throat Cardiovascular: Reports: Palpitations, Heart racing. Denies: Chest pain Respiratory: Denies: Dyspnea, Cough, Sputum Gastrointestinal: Reports: Nausea. Denies: Abdominal pain, Vomiting, Diarrhea, Constipation Genitourinary: Denies: Dysuria, Hematuria Musculoskeletal: Denies: Myalgias, Arthralgias, Neck pain Skin: Denies: Rash, Abscess Neurological: Reports: Headache. Denies: Weakness, Parasthesia Psych: Denies: Depression, Anxiety Physical Exam Vital Signs/Narrative: Vital Signs Temp Pulse Resp BP Pulse Ox 11/03/20 12:36 97.6 F L 81 18 118/72 100 Inital Vital Signs reviewed: Yes General: Well nourished, No Acute Distress Head: Normocephalic, Atraumatic Eyes: Perrl, EOMI ENT: Moist mucous membranes, No rhinorrhea, TM's clear Cardiovascular: Regular rate, Regular rhythm Respiratory: No distress, CTA bilaterally Extremities: Nontender, No edema Skin: Normal color, No rash Neurological: Alert, Oriented x3, Cranial nerves II-XII grossly intact Psychological: Normal affect, Normal Mood Diagnostic/Tx/Re-eval Clinical Impression(s) from Imaging Studies Brain CT 11/03/20 12:49 IMPRESSION: Normal unenhanced CT scan of the brain. Electronically Signed: Elio Bronson MD at 15:38 EST Tel , Service support , Chest X-Ray 11/03/20 13:30 IMPRESSION: Normal x-ray examination of the chest. Electronically Signed: Sixto Monge MD at 13:40 EST , Service support , Laboratory Data 11/03/20 11/03/20 13:05 13:05 WBC 9.5 RBC 5.32 Hgb 13.7 Hct 44.2 MCV 83.1 MCH 25.8 L MCHC 31.0 L RDW Std Deviation 40.3 RDW Coeff of Eulogio 13.2 Plt Count 281 MPV 9.7 Immature Gran % (Auto) 0.300 Neut % (Auto) 62.1 Lymph % (Auto) 30.4 [place] % (Auto) 5.4 Eos % (Auto) 1.6 Baso % (Auto) 0.2 Absolute Neuts (auto) 5.9 Absolute Lymphs (auto) 2.89 Nucleated RBC % 0 Sodium 140 Potassium 3.3 L Chloride 105 Carbon Dioxide 29.0 Anion Gap 6 BUN 11 Creatinine 0.86 Estim Creat Clear Calc 68.08 Est GFR (MDRD) Af Amer 99 Est GFR (MDRD) Non-Af 82 BUN/Creatinine Ratio 12.8 Glucose 105 Calcium 9.0 Magnesium 2.0 Troponin I < 0.015 - Medical Decision Making 1-year-old female presenting with lightheadedness and palpitations. She states she currently does not feel lightheaded. I am unable to reproduce this on exam. Orthostatic vitals are normal. EKG performed on arrival shows a sinus rhythm at 73 bpm without signs of ischemic change or arrhythmia. His orthostatic vitals are normal. Patient's lab work-up is unremarkable with exception of a potassium of 3.3. Cardiac enzymes are negative. CT brain is negative for acute findings. This x-ray is interpreted by myself shows no acute cardiopulmonary process. Radiology does agree. Feel at this time patient is stable to be discharged home. She will follow-up with her PCP to ensure resolution. Impression: 1. Lightheadedness 2. Hypokalemia ED Disposition - Plan for ED Patient: Instructions: ED Dizziness, Uncertain Cause Referrals: Naheed Kam DO [Primary Care Provider] -
--- NOTE | 2020-11-03 12:47 | EKG12_ITS ---
Test Reason : Blood Pressure : / mmHG Vent. Rate : 073 BPM Atrial Rate : 073 BPM P-R Int : 128 ms QRS Dur : 086 ms QT Int : 388 ms P-R-T Axes : 041 062 032 degrees QTc Int : 427 ms Normal sinus rhythm Normal ECG Confirmed by ONUR PISANO, KOLE ([id number]), news videotape editor MIKALA MARTINES ([id number]) on 11/04/2020 10:40:44 AM Referred By: JIMI Confirmed By:KOLE MOHR MD
--- NOTE | 2020-11-03 12:49 | CT_ITS ---
STUDY: CT BRAIN WITHOUT CONTRAST REASON FOR EXAM: Female, 30 years old. headache RADIATION DOSAGE (If Supplied By Facility): CTDIvol = ( 44.99 ) mGy, DLP = ( 711.75 ) mGycm TECHNIQUE: Transaxial CT imaging of the brain was performed without administration of intravenous contrast material. Individualized dose optimization techniques were used for this CT. COMPARISON: No relevant priors. FINDINGS: Normal soft tissue structures. Normal calvarium. Normal size ventricles and extra-axial spaces for the patient''s age. Normal white matter tracts of the cerebral hemispheres. Normal basal ganglia and thalami. Normal brainstem. Normal cerebellum. There is no intracranial hemorrhage. There are no findings of an acute ischemic infarction. Normal visualized paranasal sinuses. CT/Brain/Head without Contrast IMPRESSION: Normal unenhanced CT scan of the brain. Electronically Signed: Elio Bronson MD at 15:38 EST Tel , Service support ,
[2020-11-03] MEDS: DiphenhydrAMINE 50 MG/ML Syringe 25 MG IV (13:16)
[2020-11-03] MEDS: Metoclopramide 10 MG/2 ML Vial IV (13:18)
[2020-11-03 13:20] VITALS: BP 111/76; BP 114/80; BP 124/85; PULSE 73; PULSE 88; PULSE 99
[2020-11-03 13:29] LABS: Absolute Lymphocyte Count 2.89 X10^3/uL (0.83-4.51); Absolute Neutrophil Count 5.9 X10^3/uL (2.0-7.7); Basophil# 0.02 X10^3/uL; Basophil% 0.2 % (0-1); Eosinophil# 0.15 X10^3/uL; Eosinophils% 1.6 % (0-5); Hematocrit 44.2 % (37-47); Hemoglobin 13.7 g/dL (12.0-15.0); Lymphocyte # 2.89 X10^3/ul (4.0); Lymphocyte % 30.4 % (19-41); Mean Corpuscular Hgb 25.8 pg (27.0-32.0); Mean Corpuscular Volume 83.1 fL (81-99); Mean Platelet Vol. 9.7 fl (6.2-12.0); Monocyte# 0.51 X10^3/uL; Monocyte% 5.4 % (0-10); NRBC Flagged by Analyzer 0 % (0-5); Neutrophil % 62.1 % (47-70); Platelet Count 281 K/mm3 (150-450); RBC Distribution Width CV 13.2 % (11.6-14.6); RBC Distribution Width SD 40.3 fl (35.1-43.9); Red Blood Count 5.32 M/mm3 (4.2-5.4); White Blood Count 9.5 K/mm3 (4.4-11.0)
--- NOTE | 2020-11-03 13:30 | RAD_ITS ---
STUDY: X-RAY CHEST REASON FOR EXAM: Female, 30 years old. Chest pain, heart palpitations, and dizziness. TECHNIQUE: Single AP portable view of the chest. COMPARISON: Comparison is made with prior examination dated 05/08/2017. FINDINGS: EKG electrodes are seen. The lungs are clear and expanded. There is no demonstrated pleural abnormality. Normal size heart. Normal mediastinum and kita. Normal visualized pulmonary arteries. Normal visualized aortic arch and descending thoracic aorta. Normal visualized thoracic spine. Normal visualized ribs, clavicles, and shoulders. There is no demonstrated abnormality of the visualized soft tissue structures of the upper abdomen. RAD/Chest 1 View (Portable) IMPRESSION: Normal x-ray examination of the chest. Electronically Signed: Sixto Monge MD at 13:40 EST , Service support ,
[2020-11-03 13:46] LABS: Anion Gap 6 (5-15); BUN 11 mg/dL (7-18); BUN/Creat Ratio 12.8 RATIO (10-20); Chloride 105 mmol/L (98-107); Creatinine, Serum 0.86 mg/dL (0.55-1.02); EST Glomerular Filtration Rate 82 mL/min (>60); Est Glom Filt Rate - Afr Amer 99 mL/min (>60); Estimated Creatinine Clearance 68.08 ml/min; Glucose 105 mg/dL (74-106); Potassium 3.3 mmol/L (3.5-5.1); Sodium Level 140 mmol/L (136-145)
[2020-11-03] MEDS: Potassium Chloride Oral Soln 20 MEQ/15 ML UDC PO (15:34)
[2020-11-03 16:44] VITALS: BP 106/53; PULSE 71; RESP 20; O2SAT 99
--- NOTE | 2020-11-03 16:44 | ED.RN ---
THIS NURSE REVIEWED D/C INSTRUCTIONS WITH PT. PT VERBALIZED UNDERSTANDING OF INSTRUCTIONS. IV D/C. IV CATHETER INTACT. PT TOLERATED WELL. PT DENIES FURTHER NEEDS OR QUESTIONS AT THIS TIME. PT AMBULATES FROM ROOM ON OWN WITHOUT ASSISTANCE FROM STAFF
== END 2020-11-03 16:45 | disposition home or self-care (01) ==
PROVIDERS: Emergency Provider Student in an Organized Health Care Education/Training Program; PCP Family Medicine
DX: R42 Dizziness and giddiness (principal); E87.6 Hypokalemia; G43.909 Migraine, unspecified, not intractable, without status migrainosus; Z79.899 Other long term (current) drug therapy
CPT/HCPCS: 70450; 71045; 80048; 83735; 84484; 85025; 93005; 96374; 96375; 99285; A4216

== ENCOUNTER → 2020-12-01 06:06 | Outpatient (CLI) | payer OTHER, SELFPAY ==
[2020-11-03 12:36] VITALS: BMI 26.4
[2020-12-01 07:04] LABS: Internal QC Validated? YES +Cl - CLEAR BKGD; Pregnancy, Urine Negative Negative
== END ==
PROVIDERS: PCP Family Medicine; Referring Provider Dermatology; Visit Provider Dermatology
DX: L70.0 Acne vulgaris (principal); Z79.899 Other long term (current) drug therapy
CPT/HCPCS: 81025

== ENCOUNTER 2020-12-29 17:02 | Outpatient (RCR) | payer OTHER, SELFPAY | END 2021-01-02 23:59 | LOC: NS 17:02 | PROVIDERS: PCP Family Medicine; Visit Provider Family Medicine | DX: E66.9 Obesity, unspecified (principal) | CPT/HCPCS: 97802 ==

== ENCOUNTER → 2021-01-03 07:29 | Outpatient (CLI) | payer OTHER, SELFPAY ==
[2021-01-03 07:54] LABS: Internal QC Validated? YES +Cl - CLEAR BKGD; Pregnancy, Urine Negative Negative
[2021-01-03 08:38] LABS: AST(SGOT) 13 U/L (15-37); Alanine Aminotransfer ALT/SGPT 20 U/L (13-56); Albumin, Serum 3.9 g/dL (3.2-5.0); Alkaline Phosphatase 79 U/L (45-117); Anion Gap 5 (5-15); BUN 17 mg/dL (7-18); BUN/Creat Ratio 20.3 RATIO (10-20); Calcium,Total 9.3 mg/dL (8.5-10.1); Chloride 105 mmol/L (98-107); Cholesterol 240 mg/dL (200); Creatinine, Serum 0.84 mg/dL (0.55-1.02); EST Glomerular Filtration Rate 84 mL/min (>60); Est Glom Filt Rate - Afr Amer 102 mL/min (>60); Glucose 94 mg/dL (74-106); High Density Lipoprotein 47 mg/dL; Potassium 4.2 mmol/L (3.5-5.1); Protein, Total 7.9 g/dL (6.4-8.2); Sodium Level 137 mmol/L (136-145); Triglycerides 115 mg/dL; Very Low Density Lipoprotein 23 mg/dL (5-40)
[2021-01-03 08:41] LABS: hCG Titer Quant., Serum < 1 mIU/mL (1-3)
== END ==
PROVIDERS: PCP Family Medicine; Referring Provider Dermatology; Visit Provider Dermatology
DX: L70.0 Acne vulgaris (principal); Z79.899 Other long term (current) drug therapy
CPT/HCPCS: 36415; 80053; 80061; 81025; 84702

== ENCOUNTER 2021-01-20 15:01 | Outpatient (RCR) | payer OTHER, SELFPAY | END 2021-02-02 23:59 | LOC: NS 15:01 | PROVIDERS: PCP Family Medicine; Visit Provider Family Medicine | DX: E66.9 Obesity, unspecified (principal) | CPT/HCPCS: 97803 ==

== ENCOUNTER → 2021-02-09 06:28 | Outpatient (CLI) | payer OTHER, SELFPAY ==
[2021-02-09 07:19] LABS: Internal QC Validated? YES +Cl - CLEAR BKGD; Pregnancy, Urine Negative Negative
== END ==
PROVIDERS: PCP Family Medicine; Referring Provider Dermatology; Visit Provider Dermatology
DX: L70.0 Acne vulgaris (principal); Z79.899 Other long term (current) drug therapy
CPT/HCPCS: 81025

== ENCOUNTER 2021-02-25 15:01 | Outpatient (RCR) | payer OTHER, SELFPAY | END 2021-03-04 23:59 | LOC: NS 15:01 | PROVIDERS: PCP Family Medicine; Visit Provider Family Medicine | DX: Z71.3 Dietary counseling and surveillance (principal); E66.9 Obesity, unspecified | CPT/HCPCS: 97803 ==

== ENCOUNTER 2021-03-10 16:55 | Outpatient (RCR) | payer OTHER, SELFPAY | END 2021-03-10 23:59 | disposition home or self-care (01) | LOC: NS 16:55 | PROVIDERS: PCP Family Medicine; Visit Provider Family Medicine | DX: Z71.3 Dietary counseling and surveillance (principal); E66.9 Obesity, unspecified | CPT/HCPCS: 97803 ==

== ENCOUNTER → 2021-03-12 15:29 | Outpatient (CLI) | payer OTHER, SELFPAY ==
--- NOTE | 2021-03-12 15:31 | RAD_ITS ---
STUDY: X-RAY CHEST REASON FOR EXAM: Female, 30 years old. CHEST PAIN TECHNIQUE: PA and lateral views of the chest. COMPARISON: Comparison is made with prior study dated 11/03/2020. FINDINGS: The lungs are clear and expanded. There is no demonstrated pleural abnormality. Normal size heart. Normal mediastinum and kita. Normal visualized pulmonary arteries. Normal visualized aortic arch and descending thoracic aorta. Normal visualized thoracic spine. Normal visualized ribs, clavicles, and shoulders. There is no demonstrated abnormality of the visualized soft tissue structures of the upper abdomen. RAD/Chest PA and Lateral IMPRESSION: Normal x-ray examination of the chest. Electronically Signed: Sixto Monge MD at 15:52 EDT , Service support ,
[2021-03-12 17:41] LABS: Absolute Lymphocyte Count 3.05 X10^3/uL (0.83-4.51); Absolute Neutrophil Count 7.3 X10^3/uL (2.0-7.7); Basophil# 0.03 X10^3/uL; Basophil% 0.3 % (0-1); Eosinophil# 0.11 X10^3/uL; Hemoglobin 13.8 g/dL (12.0-15.0); Lymphocyte # 3.05 X10^3/ul (0.83-4.51); Lymphocyte % 27.3 % (19-41); Mean Corp Hgb Conc 30.7 g/dL (32-36); Mean Corpuscular Hgb 26.2 pg (27.0-32.0); Mean Corpuscular Volume 85.4 fL (81-99); Mean Platelet Vol. 9.9 fl (6.2-12.0); Monocyte# 0.64 X10^3/uL; Monocyte% 5.7 % (0-10); NRBC Flagged by Analyzer 0 % (0-5); Neutrophil # 7.28 X10^3/uL (2.7-7.7); Neutrophil % 65.3 % (47-70); Platelet Count 311 K/mm3 (150-450); RBC Distribution Width CV 13.4 % (11.6-14.6); RBC Distribution Width SD 42.1 fl (35.1-43.9); Red Blood Count 5.27 M/mm3 (4.2-5.4); White Blood Count 11.2 K/mm3 (4.4-11.0)
[2021-03-12 18:07] LABS: hCG Titer Quant., Serum < 1 mIU/mL (1-3)
[2021-03-12 18:12] LABS: Erythrocyte Sedimentation Rate 8 mm/hr (0-30)
[2021-03-12 18:50] LABS: AST(SGOT) 14 U/L (15-37); Alanine Aminotransfer ALT/SGPT 23 U/L (13-56); Albumin, Serum 3.8 g/dL (3.2-5.0); Alkaline Phosphatase 74 U/L (45-117); BUN 16 mg/dL (7-18); Creatinine, Serum 0.72 mg/dL (0.55-1.02); Globulin 3.9 g/dL (2.2-4.2); Glucose 89 mg/dL (74-106); Protein, Total 7.7 g/dL (6.4-8.2)
[2021-03-12 18:51] LABS: Anion Gap 8 (5-15); CRP 4.44 mg/L (0.0-3.0); Chloride 102 mmol/L (98-107); Potassium 3.6 mmol/L (3.5-5.1); Sodium Level 139 mmol/L (136-145)
[2021-03-12 19:08] LABS: BUN/Creat Ratio 22.3 RATIO (10-20); EST Glomerular Filtration Rate 100 mL/min (>60); Est Glom Filt Rate - Afr Amer 121 mL/min (>60); Prolactin 8.2 ng/mL
== END ==
PROVIDERS: PCP Family Medicine; Referring Provider Family Medicine; Visit Provider Family Medicine
DX: R07.9 Chest pain, unspecified (principal); R10.9 Unspecified abdominal pain; R63.5 Abnormal weight gain; N64.4 Mastodynia
CPT/HCPCS: 36415; 71046; 80053; 84146; 84443; 84702; 85025; 85652; 86140

== ENCOUNTER → 2021-03-16 12:46 | Outpatient (CLI) | payer OTHER, SELFPAY ==
--- NOTE | 2021-03-16 13:23 | US_ITS ---
STUDY: SUPERFICIAL ULTRASOUND - LEFT UPPER CHEST. REASON FOR EXAM: Female, 30 years old. PAIN,TIGHTNESS,ASYMMETRY,TENDERNESS TECHNIQUE: A superficial ultrasound was performed with real-time and static soriano-scale imaging. COMPARISON: None. FINDINGS: The region of interest was examined by ultrasound. No sonographic abnormality is seen. US/Chest IMPRESSION: No sonographic abnormality is seen. Electronically Signed: Sixto Monge MD at 15:18 EDT , Service support ,
== END ==
PROVIDERS: PCP Family Medicine; Referring Provider Family Medicine; Visit Provider Family Medicine
DX: R07.9 Chest pain, unspecified (principal)
CPT/HCPCS: 76604

== ENCOUNTER → 2021-03-17 12:39 | Outpatient (CLI) | payer OTHER, SELFPAY ==
--- NOTE | 2021-03-17 14:10 | CT_ITS ---
STUDY: CT CHEST WITHOUT CONTRAST REASON FOR EXAM: Female, 30 years old. PAIN,TIGHTNESS,TENDERNESS,ASYMMETRY RADIATION DOSAGE (If Supplied By Facility): CTDIvol = ( 7.51 ) mGy, DLP = ( 253.38 ) mGycm TECHNIQUE: Transaxial imaging was performed without the administration of intravenous contrast material. Multiplanar coronal and sagittal images were reformatted. Individualized dose optimization techniques were used for this CT. COMPARISON: None. FINDINGS: The lungs are normal. There is no demonstrated pleural abnormality. Normal heart and pericardium. Normal mediastinum. Normal hilar regions. Normal unenhanced pulmonary arteries. Normal aorta arch and descending thoracic aorta. Normal osseous structures. There is no demonstrated abnormality of the visualized upper abdomen. CT/Chest without Contrast IMPRESSION: Normal unenhanced CT Chest examination. Electronically Signed: Sixto Monge MD at 14:39 EDT , Service support ,
== END ==
PROVIDERS: PCP Family Medicine; Referring Provider Family Medicine; Visit Provider Family Medicine
DX: R07.9 Chest pain, unspecified (principal)
CPT/HCPCS: 71250

== ENCOUNTER → 2021-07-10 08:49 | Outpatient (CLI) | payer OTHER, SELFPAY ==
--- NOTE | 2021-07-10 09:18 | US_ITS ---
STUDY: ULTRASOUND BREAST - RIGHT REASON FOR EXAM: Female, 30 years old. Pain in the right breast. TECHNIQUE: Axial and longitudinal images of the RIGHT breast were performed with a high resolution ultrasound transducer. # OF IMAGES: 58 COMPARISON: Comparison is made with prior mammogram done earlier today. FINDINGS: RIGHT Breast: The upper outer quadrant of the breast was examined by ultrasound. There is heterogeneous fibroglandular tissue. No sonographic abnormality is seen. IMPRESSION: No sonographic abnormality is seen. ASSESSMENT CATEGORY: BIRADS Category 1: Negative. A letter regarding these results will be sent to the patient by the facility within 30 days. Electronically Signed: Sixto Monge MD at 11:02 EDT , Service support , STUDY: ULTRASOUND BREAST - LEFT REASON FOR EXAM: Female, 30 years old. Palpable lump left breast. TECHNIQUE: Axial and longitudinal images of the LEFT breast were performed with a high resolution ultrasound transducer. # OF IMAGES: 58 COMPARISON: Comparison is made with prior mammogram done earlier in the day. FINDINGS: LEFT Breast: The upper outer quadrant of the left breast was examined by ultrasound. No sonographic abnormality is seen. With the patient''s history of a palpable lump in the upper outer quadrant of the breast and a possible abnormality on the mammogram, correlation with MRI of the breast is recommended. US/Breast Limited Unilateral IMPRESSION: No sonographic abnormality is seen. With the patient''s history of a palpable lump in the upper outer quadrant of the left breast and the findings on the diagnostic mammogram, correlation with MRI is recommended. ASSESSMENT CATEGORY: BIRADS Category 0: Incomplete. Need additional imaging evaluation. A letter regarding these results will be sent to the patient by the facility within 30 days. Electronically Signed: Sixto Monge MD at 11:04 EDT , Service support ,
--- NOTE | 2021-07-10 09:18 | BI_ITS ---
MAMMOGRAPHY - BILATERAL DIAGNOSTIC REASON FOR EXAM: Female, 30 years old. Left medial upper quadrant pain. Palpable lump left breast. PERTINENT HISTORY: Grandmother with breast cancer. Aunt with breast cancer. TECHNIQUE: Digital bilateral breast ariana (3D mammographic acquisition) in the CC and MLO projections. 2-D mediolateral oblique (MLO) and craniocaudad (CC) views of both breasts were obtained. 90 degree lateral view of the right breast was obtained as well. CAD: Full Field Digital Mammography with Computer Added Detection was performed. COMPARISON: None. Baseline examination. FINDINGS: Breast Composition: The breasts are heterogeneously dense, which may obscure small masses. I suspect a 1.5 cm x 1.8 cm slightly spiculated nodular density in the deep lateral portion of the left breast as seen on the craniocaudad view. Targeted ultrasound is recommended. There are small benign-appearing bilateral axillary lymph nodes. No other significant abnormalities are identified. BI/DIAG MAMM W/CAD, BILAT IMPRESSION: Possible 1.5 cm x 1.8 cm slightly spiculated nodule in the deep lateral portion of the left breast as described. Correlation with ultrasound is recommended. ASSESSMENT CATEGORY: BIRADS Category 0: Incomplete. Need additional imaging evaluation. A letter regarding these results will be sent to the patient by the facility within 30 days. Approximately 10% of breast cancers are not detected by mammography. A normal mammogram should not delay biopsy of a clinically suspicious abnormality. Electronically Signed: Sixto Monge MD at 11:01 EDT , Service support ,
== END ==
PROVIDERS: PCP Family Medicine; Referring Provider Nurse Practitioner Women's Health; Visit Provider Nurse Practitioner Women's Health
DX: N63.20 Unspecified lump in the left breast, unspecified quadrant (principal); N64.4 Mastodynia; R45.86 Emotional lability
CPT/HCPCS: 76642; 77062; 77063; 77066; G0279

== ENCOUNTER → 2021-07-31 09:46 | Outpatient (CLI) | payer OTHER, SELFPAY ==
--- NOTE | 2021-07-31 09:47 | MRI_ITS ---
STUDY: BILATERAL BREAST MR WITHOUT AND WITH CONTRAST REASON FOR EXAM: Female, 31 years old. Palpable left breast lump. TECHNIQUE: Multi-sequence multi-echo imaging of both breasts was performed with a dedicated breast coil. T1-weighted and T2-weighted images were performed before the administration of contrast. T1-weighted images were also performed after the administration of IV 12ml Dotarem without complications. COMPARISON: Bilateral breast ultrasound dated 07/10/2021 and bilateral mammogram dated 07/10/2021. FINDINGS: RIGHT BREAST: The breast tissue is heterogeneously dense with moderate background enhancement. There are no abnormal enhancing masses or areas of non-mass enhancement in the right breast. LEFT BREAST: The breast tissue is heterogeneously dense with moderate background enhancement. There are no abnormal enhancing masses or areas of non-mass enhancement in the left breast. There are no enlarged or abnormal lymph nodes. There is no abnormality in the visualized regions of the chest or liver. MRI/Breast Bilateral W/O and W IMPRESSION: No abnormality on the breast MRI with contrast. Since the patient does have a palpable abnormality, a repeat left diagnostic mammogram and targeted left breast ultrasound in 6 months would be appropriate if the lesion is not evaluated by surgery. CATEGORY: BIRADS Category 3: Probably Benign - Short-Interval Follow-up Suggested. A letter regarding these results will be sent to the patient by the facility within 30 days. Electronically Signed: Gaurav Moy MD at 11:37 EST , Service support ,
== END ==
PROVIDERS: PCP Family Medicine; Referring Provider Nurse Practitioner Women's Health; Visit Provider Nurse Practitioner Women's Health
DX: N63.20 Unspecified lump in the left breast, unspecified quadrant (principal)
CPT/HCPCS: 77049; A9575; C8908

== ENCOUNTER 2021-09-11 14:57 | Outpatient (CLI) | payer OTHER, SELFPAY ==
--- NOTE | 2021-09-11 15:05 | US_ITS ---
History: Left breast pain and swelling Left breast ultrasound: Findings: Small lymph nodes with normal internal architecture noted along the tail of the left breast. No evidence of mass or fluid collection within the breast. IMPRESSION: Negative exam. at 1616 Reported and signed by: Jesse Saxena MD Electronically Signed: Jesse Saxena MD at 16:15 EST Tel , Service support , US/Breast Limited Unilateral
[2021-09-11 17:07] LABS: AST(SGOT) 13 U/L (15-37); Alanine Aminotransfer ALT/SGPT 25 U/L (13-56); Albumin, Serum 3.8 g/dL (3.2-5.0); Alkaline Phosphatase 66 U/L (45-117); Anion Gap 6 (5-15); BUN 11 mg/dL (7-18); BUN/Creat Ratio 13.8 RATIO (10-20); CRP 9.58 mg/L (0.0-3.0); Calcium,Total 8.7 mg/dL (8.5-10.1); Chloride 107 mmol/L (98-107); EST Glomerular Filtration Rate 88 mL/min (>60); Est Glom Filt Rate - Afr Amer 107 mL/min (>60); Globulin 3.7 g/dL (2.2-4.2); Glucose 98 mg/dL (74-106); LDH 134 U/L (84-246); Potassium 3.5 mmol/L (3.5-5.1); Protein, Total 7.5 g/dL (6.4-8.2); Rheumatoid Factor < 10.0 IU/mL (<15); Sodium Level 142 mmol/L (136-145)
[2021-09-11 17:27] LABS: Erythrocyte Sedimentation Rate 9 mm/hr (0-30)
[2021-09-13 13:19] LABS: ANTINUCLEAR ANTIBODIES DIRECT Negative (Negative)
[2021-09-15 15:08] LABS: PROEL- A/G Ratio 1.5 (0.7-1.7); PROEL- Albumin 4.3 g/dL (2.9-4.4); PROEL- Alpha-1 Globulin 0.2 g/dL (0.0-0.4); PROEL- Alpha-2 Globulin 0.8 g/dL (0.4-1.0); PROEL- Globulin, Total 2.9 g/dL (2.2-3.9); PROEL- TOTAL PROTEIN 7.2 g/dL (6.0-8.5); PROELU- Albumin, Urine 32.2 % (.); PROELU- Alpha-1-Globulin,Ur 6.5 % (.); PROELU- Alpha-2-Globulin,Ur 21.3 % (.); PROELU- Beta Globulin, Ur 26.3 % (.); PROELU- Gamma Globulin, Ur 13.7 % (.); Total Protein, Ur 12.8 mg/dL (Not Estab.)
== END 2021-09-11 23:59 | disposition short-term general hospital (02) ==
PROVIDERS: PCP Family Medicine; Referring Provider Family Medicine; Visit Provider Family Medicine
DX: N64.4 Mastodynia (principal); M25.50 Pain in unspecified joint; R07.9 Chest pain, unspecified
CPT/HCPCS: 36415; 76642; 80053; 83615; 84165; 84166; 85652; 86038; 86140; 86225; 86235; 86431

== ENCOUNTER 2021-09-19 08:28 | Outpatient (CLI) | payer OTHER, SELFPAY ==
[2021-09-19 08:40] VITALS: BP 111/79; PULSE 89; RESP 16; TEMP 37; O2SAT 98; BMI 27.1
[2021-09-19] MEDS: 0.9% Saline Lock 10 ML Syringe IV (08:44)
[2021-09-19 09:13] VITALS: BP 107/75; PULSE 74; RESP 16; TEMP 37.1; O2SAT 100
[2021-09-19 09:59] VITALS: BP 108/74; PULSE 75; RESP 16; TEMP 36.8; O2SAT 98
== END 2021-09-19 23:59 | disposition home or self-care (01) ==
LOC: MS3OUT 08:28 → MS3 08:29
PROVIDERS: PCP Family Medicine; Referring Provider Nurse Practitioner Adult Health; Visit Provider Nurse Practitioner Adult Health
DX: Z23 Encounter for immunization (principal); U07.1 COVID-19; E66.9 Obesity, unspecified; Z68.28 Body mass index [BMI] 28.0-28.9, adult
CPT/HCPCS: J7050; M0245; Q0245; A4216

== ENCOUNTER → 2022-01-29 | Outpatient (CLI) | payer OTHER, SELFPAY ==
[2022-01-29 14:29] LABS: Absolute Lymphocyte Count 2.51 X10^3/uL (0.83-4.51); Absolute Neutrophil Count 8.9 X10^3/uL (2.0-7.7); Basophil# 0.03 X10^3/uL; Basophil% 0.2 % (0-1); Eosinophil# 0.06 X10^3/uL; Eosinophils% 0.5 % (0-5); Hematocrit 42.2 % (37-47); Hemoglobin 13.4 g/dL (12.0-15.0); Lymphocyte # 2.51 X10^3/ul (0.83-4.51); Lymphocyte % 20.7 % (19-41); Mean Corp Hgb Conc 31.8 g/dL (32-36); Mean Corpuscular Hgb 26.6 pg (27.0-32.0); Mean Corpuscular Volume 83.7 fL (81-99); Mean Platelet Vol. 9.7 fl (6.2-12.0); Monocyte# 0.63 X10^3/uL; Monocyte% 5.2 % (0-10); NRBC Flagged by Analyzer 0 % (0-5); Neutrophil # 8.85 X10^3/uL (2.7-7.7); Neutrophil % 73.1 % (47-70); Platelet Count 303 K/mm3 (150-450); RBC Distribution Width SD 39.6 fl (35.1-43.9); Red Blood Count 5.04 M/mm3 (4.2-5.4); White Blood Count 12.1 K/mm3 (4.4-11.0)
== END | disposition home or self-care (01) ==
LOC: LAB 13:41
PROVIDERS: PCP Family Medicine; Referring Provider Obstetrics & Gynecology; Visit Provider Obstetrics & Gynecology
DX: N93.9 Abnormal uterine and vaginal bleeding, unspecified (principal)
CPT/HCPCS: 36415; 85025

== ENCOUNTER → 2022-02-02 | Outpatient (CLI) | payer OTHER, SELFPAY ==
--- NOTE | 2022-02-02 18:18 | US_ITS ---
INDICATION: bleeding EXAMINATION: Ultrasound US Transvaginal Non-OB TECHNIQUE: Transvaginal (for optimal evaluation of the adnexa) pelvic ultrasound was performed. Grayscale, spectral waveform, and color flow Doppler evaluation of the adnexa. COMPARISON: CT abdomen and pelvis 07/05/2018. FINDINGS: UTERUS: Retroverted. The uterus measures 6.9 x 5.1 x 3.9 cm. There is no uterine mass. The echogenic endometrial stripe measures 2 mm in AP diameter which is suggestive of atrophy. Small amount of fluid seen in the endocervical canal which can represent normal secretions. RIGHT OVARY: 3.9 x 2.4 x 1.8 cm. Non-enlarged, normal echogenicity. There is normal color flow without evidence of torsion. There is a 1.2 x 0.8 x 0.7 cm simple cyst. LEFT OVARY: 3.3 x 2.8 x 2.2 cm. Non-enlarged, normal echogenicity. There is normal color flow without evidence of torsion. There is a dominant 2.0 x 2.3 x 1.5 cm minimally complex cyst in the left ovary with a single traversing septation measuring 1 mm in thickness. Incomplete traversing septations measuring 1 cm are also demonstrated. No nodular solid component. Several other peripheral follicles seen in the left ovary FREE FLUID: None. US/Transvaginal Non- IMPRESSION: Thin endometrial stripe may represent atrophy. Physiologic appearance right ovary. Mildly complex left ovarian cyst with 1 mm thickness septations. Given the history this is likely an incidental finding area a follow-up ultrasound in 6-8 weeks to ensure resolution is recommended. Electronically Signed: Jarvis Barton DO at 20:33 EDT ,
== END | disposition home or self-care (01) ==
LOC: US 18:17
PROVIDERS: PCP Family Medicine; Visit Provider Obstetrics & Gynecology
DX: N83.202 Unspecified ovarian cyst, left side (principal)
CPT/HCPCS: 76830

== ENCOUNTER → 2022-02-10 | Outpatient (CLI) | payer OTHER, SELFPAY ==
[2022-02-16 12:15] LABS: HPV APTIMA, High Risk Negative (Negative)
== END | disposition home or self-care (01) ==
LOC: LABSPEC 16:12
PROVIDERS: PCP Family Medicine; Visit Provider Nurse Practitioner Women's Health
DX: Z01.419 Encounter for gynecological examination (general) (routine) without abnormal findings (principal)
CPT/HCPCS: 87624; 88175; G0145

== ENCOUNTER → 2022-06-18 | Outpatient (CLI) | payer OTHER, SELFPAY ==
--- NOTE | 2022-06-18 09:41 | US_ITS ---
STUDY: ULTRASOUND BREAST - LEFT REASON FOR EXAM: Female, 31 years old. Deep left breast lumpiness. TECHNIQUE: Axial and longitudinal images of the LEFT breast were performed with a high resolution ultrasound transducer. # OF IMAGES: 19 COMPARISON: Comparison is made with prior mammogram done earlier in the day. FINDINGS: LEFT Breast: The medial aspect of the left breast was examined with ultrasound. No sonographic abnormality is seen. US/Breast Limited Unilateral IMPRESSION: No sonographic abnormality is seen. ASSESSMENT CATEGORY: BIRADS Category 1: Negative. A letter regarding these results will be sent to the patient by the facility within 30 days. Electronically Signed: Sixto Monge MD at 11:20 EDT ,
--- NOTE | 2022-06-18 10:08 | BI_ITS ---
MAMMOGRAPHY - BILATERAL DIAGNOSTIC REASON FOR EXAM: Female, 31 years old. Left medial breast lump and tenderness. PERTINENT HISTORY: Grandmother with breast cancer.. Aunt with breast cancer TECHNIQUE: Digital bilateral breast ariana (3D mammographic acquisition) in the CC and MLO projections. 2-D mediolateral oblique (MLO) and craniocaudad (CC) views of both breasts were obtained. CAD: Full Field Digital Mammography with Computer Added Detection was performed. COMPARISON: Comparison is made with prior study dated 07/10/2021. FINDINGS: Breast Composition: The breasts are heterogeneously dense, which may obscure small masses. There are no dominant masses or suspicious calcifications. No other significant abnormalities are identified. There has been no significant change since the prior study. BI/DIAG MAMM W/CAD, BILAT IMPRESSION: Stable bilateral diagnostic mammogram. With the patient''s history of a palpable lump in the deep medial portion of the left breast, correlation with ultrasound is recommended. ASSESSMENT CATEGORY: BIRADS Category 0: Incomplete. Need additional imaging evaluation. A letter regarding these results will be sent to the patient by the facility within 30 days. Approximately 10% of breast cancers are not detected by mammography. A normal mammogram should not delay biopsy of a clinically suspicious abnormality. Electronically Signed: Sixto Monge MD at 11:16 EDT ,
== END | disposition home or self-care (01) ==
LOC: OPBI 09:39
PROVIDERS: PCP Family Medicine; Referring Provider Surgery; Visit Provider Surgery
DX: R92.8 Other abnormal and inconclusive findings on diagnostic imaging of breast (principal); N64.4 Mastodynia; N63.20 Unspecified lump in the left breast, unspecified quadrant; Z87.898 Personal history of other specified conditions
CPT/HCPCS: 76642; 77062; 77066; G0279

== ENCOUNTER 2022-08-10 18:21 | Observation (INO) | payer OTHER, SELFPAY ==
[2022-08-03 13:32] LABS: Hematocrit 44.9 % (37-47); Mean Corp Hgb Conc 31.2 g/dL (32-36); Mean Corpuscular Hgb 26.3 pg (27.0-32.0); Mean Corpuscular Volume 84.2 fL (81-99); Mean Platelet Vol. 9.6 fl (6.2-12.0); Platelet Count 326 K/mm3 (150-450); RBC Distribution Width CV 12.9 % (11.6-14.6); RBC Distribution Width SD 39.7 fl (35.1-43.9); Red Blood Count 5.33 M/mm3 (4.2-5.4); White Blood Count 10.7 K/mm3 (4.4-11.0)
[2022-08-03 14:04] LABS: Magnesium 2.2 mg/dL (1.6-2.6)
[2022-08-10] VITALS (13 sets, daily range): BP systolic 94–118; BP diastolic 57–79; PULSE 78–105; RESP 14–18; TEMP 36.5–37.2; O2SAT 94–100; BMI 26.4
--- NOTE | 2022-08-10 | HYST_PTH ---
PATIENT: SCHUYLER DUKE LOC: [id number] U#:[id number] AGE/SX: 32/F [place]OM[place] [facility] [place]: Dr. Nisha Edouard DO : 1990 BED: 1 DIS: 08/12/2022 SPEC #: [id number] RECD: 08/11/22 09:40 STATUS: SILVAI DOYLEJanette #: [id number] BRENT: 08/10/22 00:[address]: Nisha Edouard DEPT: SURGICAL PATHOLOGY RECD BY: Mansoor Gurrola ENTERED: 08/11/22 09:41 SP TYPE: HYSTERECT OTHR DR: MD Dr. Naheed Arredondo DO Tissues: Uterus, NOS Procedures: Surgery Specimen Level V HEADER OPERATION: ERAS, laparoscopic assisted vaginal hysterectomy, bilateral salpingectomy PRE-OP DIAGNOSIS: Menorrhagia with irregular cycle TISSUE SUBMITTED: Uterus, cervix, bilateral fallopian tubes MICROSCOPIC DIAGNOSIS Uterus, cervix, bilateral fallopian tubes, vaginal hysterectomy and bilateral salpingectomy: Cervix ? chronic cystic cervicitis and squamous metaplasia. Endometrium ? proliferative endometrium. Myometrium ? focal superficial adenomyosis. Bilateral fallopian tubes - no pathologic diagnosis. Paratubal cyst. SJ:rg 08/12/2022 MICROSCOPIC DESCRIPTION Slides are reviewed. GROSS DESCRIPTION Received in fixative is one container labeled with the patient's name and designated uterus, cervix, bilateral fallopian tubes. The specimen consists of a hysterectomy specimen consisting of uterus with cervix and detached bilateral fallopian tubes. The uterus with cervix weighs 90 gm and measures 9.5 x 6 x 4.5 cm. The serosal surface is pérez, glistening. The ectocervical mucosa is unremarkable. The external os is circular in contour. The endocervical canal measures 3 cm in length and the endocervical mucosa is pérez, glistening and unremarkable. The endocervical canal is filled with mucoid material. The triangular endometrial cavity measures 4.5 cm in length and up to 2 cm in width. The endometrium is pérez, glistening without any mass lesion and measures up to 0.1 cm in thickness. Sections of the uterine wall do not reveal any mass lesion and it measures up to 2.2 cm in thickness. The fallopian tubes are not identified as right or left. One of the fallopian tubes measures 4 cm in length and 0.4 cm in diameter. The fimbrial end is identified. The second fallopian tube is received in two pieces measuring 3 cm in length and 0.4 cm in diameter. The fimbrial end is identified. Sections of both fallopian tubes reveal unremarkable cut surfaces. Also present in the container is a detached piece of fallopian tube with possible paratubal cyst. This portion of fallopian tube measures 2 cm in length and 0.4 cm in diameter. The paratubal cyst measures 0.5 cm in greatest dimension. Stenographic Court Reporter sections are submitted in eight cassettes as follows: 1 - anterior cervix, 2 - posterior cervix, 3 & 4 - anterior uterine wall, 5 & 6 - posterior uterine wall, 7 ? one fallopian, intact, 8 ? second fallopian tube in multiple pieces and paratubal cyst. / SJ:anila 08/11/2022 TC:5 CPT: 86329
[2022-08-10 09:08] LABS: Internal QC Validated? YES +Cl - CLEAR BKGD
[2022-08-10 09:09] LABS: Pregnancy, Urine Negative Negative
[2022-08-10] MEDS: Phenazopyridine 95 MG Tablet 190 MG PO (09:22)
[2022-08-10] MEDS: Acetaminophen 500 MG Tablet 1000 MG PO ×2 (09:22→18:51)
[2022-08-10] MEDS: Lactated Ringers 1,000 ML 40 ML IV (09:23)
[2022-08-10] MEDS: Celecoxib 200 MG Capsule 400 MG PO (09:23)
[2022-08-10] MEDS: Gabapentin 600 MG Tablet PO (09:23)
[2022-08-10] MEDS: dexAMETHasone 10 MG/ML Vial 8 MG IV (09:24)
[2022-08-10 10:11] LABS: Bedside Glucose 82 mg/dL (74-106)
--- NOTE | 2022-08-10 13:21 | HP.PCM_ITS ---
History and Physical Date of Admission: 08/10/22 MR#: [id number] Acct: [id number] Name:SCHUYLER FLOWERS Rep #: [id number] : 1990 ? ? Provider: Dr. Nisha Edouard, DO Age/Sex:? 32/F ? ? Location: [facility] [place] Status: Signed Intake Vital Signs ? 05/14/2209:00 07/28/2214:29 07/28/2214:29 Height 5 ft 5 ft 5 ft Weight: ? 137 lb 6 oz ? BMI ? 26.8 ? BP ? 115/72 ? Intake Visit Reasons:?LAV possible cystoscopy Jig Borer Required: No Is patient in pain?: No Allergies hydromorphone [From Dilaudid] Adverse Reaction (Verified 07/28/22 14:28) Otheroxycodone [From Percocet] Adverse Reaction (Verified 07/28/22 14:28) Nausea Medications Apoorva 0.35 mg tablet (norethindrone (contraceptive)) 0.35 mg PO QDAY #84 tabs 02/10/22 [Rx Confirmed 07/28/22] valacyclovir 500 mg tablet (Valtrex) 500 mg PO BID PRN cold sores #20 tabs 02/10/22 [Rx Confirmed 07/28/22] meclizine 25 mg tablet 25 mg PO BID PRN dizziness #10 tabs 06/01/22 [Rx Confirmed 07/28/22] Post menopausal: No Patient : No : No PFSH Medical History? Abnormal mammogram of left breast Anxiety and depression Breast mass, left COVID-19 Frequent headaches Mass of head Surgical History? History of section History of dilation and curettage lumpectomy back of head Family History? Father Diabetes HypertensionMother Hypertension Social History? Smoking Status:? Never smoker alcohol intake:? current alcohol intake frequency: holidays/special occasions only details:? pre- substance use type:? does not use caffeine:? Yes what type of physical activity do you participate in:? walking and other details: cardio frequency:? 5-6 times per week seatbelt use:? always do you feel safe at home:? Yes additional social history:? [place] Patient works at [employer] [facility] possible cystoscopy Details: SCHUYLER DUKE is a 31 year old who presents for a pre-op [facility], possible cystoscopy scheduled 08/10/22. Our previous discussion was? about? heavy menses and desire for permanent sterilization. She states that she is 100% sure that she does not want to have more children. Her last was an elective . Her current child was born via emergency section. She talked to Cindy Vivas about a tubal with ablation. She states that all of the women in her family ended up with hysterectomies and she is interested in a non-hor monal option for controlling her heavy periods. We discussed that she is too young for an ablation to be affective and she declines an IUD due to information she has read about. ultrasound showed: [facility] [address] [place] [address] Transvaginal Non- MR#:? [id number] Acct: [id number] Name:SCHUYLER FLOWERS Rep #: [id number] :?? 1990 F 31 ? From:? ? Jarvis Barton DO PCP: Dr. Naheed Kam, DO ? Status: REG CLI Study: Transvaginal Non- ? Date of Exam: 02/02/22 Exam# [id number] ? Ordering Dr:? Racheal Hartmann MD INDICATION: bleeding EXAMINATION: Ultrasound US Transvaginal Non-OB TECHNIQUE: Transvaginal (for optimal evaluation of the adnexa) pelvic ultrasound was performed. Grayscale, spectral waveform, and color flow Doppler evaluation of the adnexa. COMPARISON: CT abdomen and pelvis 07/05/2018. FINDINGS: UTERUS:? Retroverted. The uterus measures 6.9 x 5.1 x 3.9 cm. There is no uterine mass. The echogenic endometrial stripe measures 2 mm in AP diameter which is suggestive of atrophy. Small amount of fluid seen in the endocervical canal which can represent normal secretions. RIGHT OVARY: 3.9 x 2.4 x 1.8 cm. Non-enlarged, normal echogenicity. There is normal color flow without evidence of torsion.? There is a 1.2 x 0.8 x 0.7 cm simple cyst. LEFT OVARY: 3.3 x 2.8 x 2.2 cm. Non-enlarged, normal echogenicity. There is normal color flow without evidence of torsion.? There is a dominant 2.0 x 2.3 x 1.5 cm minimally complex cyst in the left ovary with a single traversing septation measuring 1 mm in thickness.? Incomplete traversing septations measuring 1 cm are also demonstrated.? No nodular solid component.? Several other peripheral follicles seen in the left ovary FREE FLUID: None. US/Transvaginal Non- IMPRESSION: ? Thin endometrial stripe may represent atrophy. ? Physiologic appearance right ovary. ? Mildly complex left ovarian cyst with 1 mm thickness septations.? Given the history this is likely an incidental finding area a follow-up ultrasound in 6-8 weeks to ensure resolution is recommended. History ? ? ? 2 ? Elective abortions ? ? ? 1 Hx Para ? ? ? 1 ? Spontaneous abortions ? Hx # Term Pregnancies ? Ectopic pregnancies ? Hx # Pregnancies ? Multiple births ? # of living children ? ? ? 1 Past Pregnancies Del. Date Name GA/Weeks Outcome Route Bth Weight Gen Labor Lgth Anesthesia Del Locatn Provider FOB 01/18/19 Janis 40 live - full term 8lbs 1oz Female ? epidural [facility] ? Delivery Date: 01/18/19? Last Updated by: Simin Marin ? ? ? decel ROS Const ROS Unobtainable: All systems reviewed & are unremarkable except as noted in H Resp Resp: Reports system reviewed and no additional complaints, except as documented; Denies cough GI GI: Reports as per HPI Psych Psych: Reports system reviewed and no additional complaints, except as documented Exam Const General: cooperative, healthy appearing, comfortable and no acute distress Resp Effort & Inspection: normal respiratory effort General: bimanual renal exam normal bilaterally External Female Exam: normal appearance of the urethra Urethra: normal appearance of the urethra Speculum Exam - Vagina: normal appearance of the vagina Speculum Exam - Cervix: normal appearance of the cervix Bimanual Exam- Adnexa, other: normal adnexae and normal Pelvic Support: normal Skin General: no rashes or lesions noted Psych Appearance: grossly normal Speech and Movement: speech and movement normal Coding Level of Care Code Off vis,est,level 4 Diagnoses Menorrhagia with irregular cycle? N92.1 Assessment and Plan Assessment and Plan (1) Menorrhagia with irregular cycle: ?Status:?Acute ?Comment: change to slynd for 2-3 mo. If persists, consult with for surgical intervention Plan After discussing the patient's diagnosis and treatment plan options, patient wishes to proceed with surgical management.? I have discussed with the patient the risks, benefits, and alternatives of the procedure which include but are not limited to risks of anesthesia, bleeding, infection, possible damage to bowel, bladder, or surrounding vasculature which could lead to additional surgery to evaluate any complications.? Patient agrees to procedure and wishes to proceed.? ACOG/uptodate references given for additional information regarding procedure.? plan for LAVH poss cysto 08/10/22. Plan Details Goals & Barriers: Goals Decrease pain and spasm Improve ROM Improve lordosis 07/30/22 [id number] <Electronically signed by Nisha Edouard DO> Nisha Edouard DO
--- NOTE | 2022-08-10 13:23 | DCINST_ITS ---
Discharge Instructions Diet Discharge Diet: No restrictions Activity May resume sexual activity in: 6 weeks Weight Bearing Status: Full weight bearing Dressing / Incision Call your doctor if your incision/area has: Continuous Slow Oozing, Sudden Increased Bleeding, Increased Pain/ Swelling, Increased Redness and Foul Smelling Discharge Call your doctor if you observe: Fever of 101 or Higher, Using more than 1 pad per hour, Shortness of breath, Chest pain and Uncontrolled pain Suture Line Care: Avoid Pulling/Pushing and Avoid Pinching/Bending Remove Dressing in: 1 week (if present) Cleanse incision/area with: Soap & Water and Keep Dressing Clean & Dry Follow Up Care Please Follow Up With: Nisha Edouard DO When: Call to make an appointment with your doctor for a postop visit in 2 and 6 weeks Test Results: Test results from this visit will be discussed in further detail at your follow- up appointment, if applicable. Discharge Plan Admission Primary Reason for Your Visit: hysterectomy Attending Provider: Nisha Edouard Primary Care Provider: Naheed Kam Consulting Providers: Tigre Mancuso Discharge Orders/Prescriptions Prescriptions: New ondansetron 4 mg tablet,disintegrating 4 mg PO Q8H PRN (Reason: nausea and vomiting) Qty: 30 0RF ibuprofen 800 mg tablet 800 mg PO Q8H PRN (Reason: pain) 7 Days Qty: 30 0RF oxycodone-acetaminophen [Percocet] 5-325 mg tablet 1 tab PO Q4H PRN (Reason: pain) 7 Days Qty: 30 0RF Continued valacyclovir [Valtrex] 500 mg tablet 500 mg PO BID PRN (Reason: cold sores) Qty: 20 2RF Discontinued norethindrone (contraceptive) [Apoorva] 0.35 mg tablet 0.35 mg PO QDAY Qty: 84 4RF Rx Instructions: start day 1 of menstrual cycle Referrals / Follow Up: Naheed Kam DO [Primary Care Provider] - Disposition Disposition (needs filled in before D/C Order can be placed): Home, Self Care
--- NOTE | 2022-08-10 13:47 | OP.PCM_ITS ---
Operative Report Date of Procedure: 08/10/22 preoperative diagnosis: menorrhagia, failed conservative treatment postoperative diagnosis: menorrhagia, failed conservative treatment Procedure: Laparoscopically assisted vaginal hysterectomy, bilateral salpingectomy Surgeon: Dr. Bruno Edouard DO Certified Art Therapist: ALY Garrison and ALY Aguirre EBL: 200cc Urine output:200c Fluids: 1500cc Anesthesia: general endotracheal intubation Patient received preoperative antibiotics and SCDs were on preoperatively. Patient was taken back to the operating room and placed in the dorsal lithotomy position. General anesthesia was induced and patient was prepped and draped in normal sterile fashion. Uterine manipulator was placed inside the uterus and Morejon catheter placed in the bladder. The umbilicus was grasped with towel clamps and an intraumbilical incision was made after injecting with quarter percent Marcaine and a 5 mm trocar was placed under direct visualization without complication into the abdomen. CO2 gas was used to inflate the abdomen. Right and left lower quadrants were transilluminated and injected with quarter percent Marcaine and 5 mm ports placed under direct visualization. Pelvis was well visualized see operative findings for additional information. Bilateral fallopian tubes were identified and transected with the LigaSure device across the mesosalpinx to the level of the utero-ovarian ligament which was also transected with the LigaSure device. The broad ligament was opened up by resendiz secting the round ligament bilaterally and skeletonizing the uterine vessels bilaterally and creating a bladder flap using the LigaSure device. The uterine arteries were transected bilaterally with good visualization of the bladder and the ureters were seen to be inferior lateral to the operative area. Attention was then paid to the vaginal portion of the procedure and the cervix was grasped with Maira clamps and circumferentially injected with dilute vasopressin. A circumferential incision was made and the vaginal mucosa was mobilized off posteriorly and the cul-de-sac entered into sharply and a longneck speculum placed. The anterior cul-de-sac was then identified and entered into sharply. The uterosacral ligaments were clamped cut and suture ligated with 0 Monocryl bilaterally followed by the cardinal ligaments which were clamped cut and suture ligated bilaterally with 0 Monocryl. The uterus serially descended and was removed without difficulty with minimal morcellation. Pelvic sidewall pedicles were checked and noted to have excellent hemostasis. The vaginal mucosa was reapproximated incorporating the posterior peritoneum. This was reapproximated using 0 Vicryl [id number] sutures. Excellent hemostasis was noted. Attention paid to the abdominal portion of the procedure again. The pelvis and cul-de-sac was well visualized and no significant active bleeding noted but some raw areas were seen on the peritoneum and therefore surgicel powder and fibrillar were applied. Pressure was taken down and the areas visualized and noted of excellent hemostasis. All ports were removed under direct visualization without complication and the abdomen was desufflated of air. The instruments removed from the abdomen and the vagina vaginal sweep was negative. Port sites on the abdomen were closed with 4-0 Monocryl interrupted sutures and Steri's and windows were applied. She was awoken and taken recovery in stable condition. Multi Select Codes Urinary/Genital Urinary/Genital CPT Codes: 12805 LAVH+BS/O <250gr Uterus
[2022-08-10] MEDS: Bupivacaine 0.25% 30 ML Vial (14:10)
[2022-08-10] MEDS: Lactated Ringers 1,000 ML 100 ML IV ×2 (16:21→17:13)
[2022-08-10] MEDS: 0.9% Normal Saline 1,000 ML 125 ML IV (18:51)
[2022-08-10] MEDS: oxyCODONE 5 MG Tablet PO (20:20)
[2022-08-10] MEDS: Docusate Sodium 100 MG Capsule PO (22:04)
[2022-08-11] VITALS (9 sets, daily range): BP systolic 94–103; BP diastolic 58–74; PULSE 75–97; RESP 14–18; TEMP 36.6–37.4; O2SAT 96–100
[2022-08-11] MEDS: Acetaminophen 500 MG Tablet 1000 MG PO ×4 (00:20→17:57)
[2022-08-11] MEDS: Ketorolac 30 MG/ML Syringe IV ×4 (00:20→17:57)
[2022-08-11] MEDS: 0.9% Normal Saline 1,000 ML 125 ML IV (03:09)
[2022-08-11] MEDS: oxyCODONE 5 MG Tablet PO ×4 (03:09→20:38)
[2022-08-11 06:32] LABS: Hematocrit 37.8 % (37-47); Hemoglobin 11.7 g/dL (12.0-15.0); Mean Corpuscular Hgb 26.3 pg (27.0-32.0); Mean Corpuscular Volume 84.9 fL (81-99); Mean Platelet Vol. 9.5 fl (6.2-12.0); Platelet Count 282 K/mm3 (150-450); RBC Distribution Width SD 40.3 fl (35.1-43.9); Red Blood Count 4.45 M/mm3 (4.2-5.4); White Blood Count 17.7 K/mm3 (4.4-11.0)
--- NOTE | 2022-08-11 07:59 | PN.OBGYN_ITS ---
Subjective Subjective pt states that she has right sided back pain (lower) and right lower quadrant tenderness like when i have an ovarian cyst She also states that when she was walking around last night she felt dizzy and does not feel like she is emptying her bladder all the way. Objective Data Objective Data Vital Signs: Vital Signs Temp Pulse Resp BP Pulse Ox O2 Del Method O2 Flow Rate 98.1 F 86 16 95/64 98 Room Air 4 08/11/22 06:21 08/11/22 06:21 08/11/22 06:21 08/11/22 06:21 08/11/22 06:21 08/11/22 06:21 08/11/22 06:00 Oxygen Flow Rate (L/min) 4 Oxygen Delivery Method Room Air Weight: 134 lb 7.712 oz Body Mass Index (BMI) 26.4 Intake & Output: Intake and Output for Last 24 Hours 08/09/22 08/10/22 08/11/22 23:59 23:59 23:59 Intake Total 3357 / 3357 1589.58 / 1589.58 Output Total 735 / 735 Balance 3357 / 3247 854.58 / 854.58 Lab / Micro Data Result Diagrams: 08/11/22 06:24 Labs: Laboratory Results - last 24 hr 08/10/22 08:55: Urine Test Negative 08/10/22 09:07: POC Glucose 82 08/11/22 06:24: WBC 17.7 H, RBC 4.45, Hgb 11.7 L, Hct 37.8, MCV 84.9, MCH 26.3 L , MCHC 31.0 L, RDW Std Deviation 40.3, RDW Coeff of Eulogio 13.0, Plt Count 282, MPV 9.5 ROS Constitutional Constitutional: Denies chills, fatigue, fever(s), poor appetite or weakness Eyes Eyes: Denies blurry vision, change in vision, seeing flashes or spots in vision ENT HEENT: Denies dizziness, headache(s), loss taste/smell or sore throat Cardiovascular Cardiovascular: Denies chest pain, dyspnea, irregular heart rhythm, palpitations or rapid heart rate Respiratory/Chest Respiratory/Chest: Denies chest tightness, cough, dyspnea or breast pain Gastrointestinal Gastrointestinal: Denies abdominal pain, constipation or vomiting Genitourinary Genitourinary: Denies dysuria or flank pain Musculoskeletal Musculoskeletal: Denies difficulty walking, joint pain, limited range of motion or numbness Neurologic Neurologic: Denies abnormal movements, abnormal speech, dizziness, numbness, seizure-like activity or syncope Psychiatric Psychiatric: Denies anxiety, behavioral changes, change in appetite, confusion, depression or suicidal thoughts Physical Exam Const alert, oriented x3 and no apparent distress General Appearance: cooperative and comfortable Resp normal respiratory effort Cardio regular rate GI normal to inspection, nondistended, normoactive bowel sounds GI Narrative: uterus is firm below umbilicus Palpation: soft Back/Spine no CVA tenderness and thoraco-lumbar ROM normal Extremity normal to inspection, no clubbing, cyanosis or edema, no calf tenderness and no pedal edema Psych mental status grossly normal, thought process normal, cooperative, affect n ormal, speech normal, activity/motor behavior normal, denies homicidal ideation and denies suicidal ideation Assessment & Plan (1) Status post hysterectomy: PLAN: Plan plan to rpt h/h EBL was 200. preop hg was 14 and post op at 6 am was 11. will order a cmp to look specifically at the Cr ordering flexeril to r/o musculoskeletal pain bladder scan after next urination ro rule out retention. will round this afternoon to check on progress saline lock IV for now.
[2022-08-11] MEDS: Enoxaparin 40 MG/0.4 ML Syringe SC (08:08)
[2022-08-11] MEDS: Docusate Sodium 100 MG Capsule PO (08:09)
[2022-08-11] MEDS: Ensure Plus High Protein 120 ML LIQUID PO ×3 (08:09→16:24)
[2022-08-11 08:18] LABS: AST(SGOT) 11 U/L (15-37); Alanine Aminotransfer ALT/SGPT 17 U/L (13-56); Albumin, Serum 3.1 g/dL (3.2-5.0); Alkaline Phosphatase 46 U/L (45-117); Anion Gap 3 (5-15); BUN 10 mg/dL (7-18); BUN/Creat Ratio 13.1 RATIO (10-20); Calcium,Total 7.8 mg/dL (8.5-10.1); Chloride 111 mmol/L (98-107); Creatinine, Serum 0.76 mg/dL (0.55-1.02); EST Glomerular Filtration Rate 92 mL/min (>60); Est Glom Filt Rate - Afr Amer 112 mL/min (>60); Estimated Creatinine Clearance 101.39 ml/min; Glucose 130 mg/dL (74-106); Potassium 3.9 mmol/L (3.5-5.1); Protein, Total 6.1 g/dL (6.4-8.2); Sodium Level 140 mmol/L (136-145)
[2022-08-11] MEDS: cycloBENZAPRine HCl 5 MG TABLET PO (08:21)
[2022-08-11 08:39] LABS: Hematocrit 36.6 % (37-47); Hemoglobin 11.5 g/dL (12.0-15.0)
[2022-08-11] MEDS: 0.9% Saline Lock 10 ML Syringe IV ×2 (12:05→17:58)
[2022-08-12] MEDS: Acetaminophen 500 MG Tablet 1000 MG PO ×3 (00:13→12:49)
[2022-08-12] MEDS: Ketorolac 30 MG/ML Syringe IV ×2 (00:13→06:40)
[2022-08-12] MEDS: HYDROmorphone 0.5 MG/0.5 ML SYRINGE IV (03:15)
[2022-08-12] MEDS: Ondansetron ODT 4 MG Tablet PO (03:20)
--- NOTE | 2022-08-12 03:40 | NURSING ---
PT AWAKE, C/O SEVERE RIGHT SIDE ABD PAIN AND CRAMPING THEN HAVING LIQUID DIARRHEA. PT HAS BEEN AMBULATING IN THE REYES, AND USING THE IS WELL. PRN DILAUDID GIVEN SINCE HER PAIN IS A 7/10
[2022-08-12 04:19] VITALS: BP 93/58; PULSE 79; RESP 16; TEMP 36.7; O2SAT 99
[2022-08-12] MEDS: 0.9% Normal Saline 1,000 ML 150 ML IV (05:00)
[2022-08-12 05:30] LABS: Absolute Lymphocyte Count 1.33 X10^3/uL (0.83-4.51); Absolute Neutrophil Count 6.4 X10^3/uL (2.0-7.7); Basophil# 0.01 X10^3/uL; Basophil% 0.1 % (0-1); Eosinophil# 0.03 X10^3/uL; Eosinophils% 0.4 % (0-5); Hematocrit 34.8 % (37-47); Hemoglobin 11.1 g/dL (12.0-15.0); Lymphocyte # 1.33 X10^3/ul (0.83-4.51); Lymphocyte % 15.8 % (19-41); Mean Corp Hgb Conc 31.9 g/dL (32-36); Mean Corpuscular Hgb 27.5 pg (27.0-32.0); Mean Corpuscular Volume 86.1 fL (81-99); Mean Platelet Vol. 9.3 fl (6.2-12.0); Monocyte# 0.59 X10^3/uL; NRBC Flagged by Analyzer 0 % (0-5); Neutrophil # 6.42 X10^3/uL (2.7-7.7); Neutrophil % 76.5 % (47-70); Platelet Count 194 K/mm3 (150-450); RBC Distribution Width CV 13.3 % (11.6-14.6); RBC Distribution Width SD 41.9 fl (35.1-43.9); Red Blood Count 4.04 M/mm3 (4.2-5.4); White Blood Count 8.4 K/mm3 (4.4-11.0)
[2022-08-12 05:54] LABS: AST(SGOT) 25 U/L (15-37); Alanine Aminotransfer ALT/SGPT 35 U/L (13-56); Albumin, Serum 2.7 g/dL (3.2-5.0); Alkaline Phosphatase 39 U/L (45-117); Anion Gap 4 (5-15); BUN 14 mg/dL (7-18); BUN/Creat Ratio 23.3 RATIO (10-20); Chloride 110 mmol/L (98-107); EST Glomerular Filtration Rate 122 mL/min (>60); Est Glom Filt Rate - Afr Amer 148 mL/min (>60); Estimated Creatinine Clearance 128.42 ml/min; Globulin 2.8 g/dL (2.2-4.2); Glucose 105 mg/dL (74-106); Potassium 3.7 mmol/L (3.5-5.1); Protein, Total 5.5 g/dL (6.4-8.2); Sodium Level 140 mmol/L (136-145)
[2022-08-12 07:23] VITALS: O2SAT 97
--- NOTE | 2022-08-12 07:40 | PCM.PN.OB ---
Subjective Subjective pt is laying in bed and appears comfortable. She is able to laugh and talk to me without holding her abdomen or appear in pain. She states however that her pain remains a 6 on a sale from 1-10. She continues to complain of right lower back pain and right lower side pain. Her nurse reports that she had multiple episodes of explosive diarrhea. The patient believes it could be due to the ensure drink because she has problems with lactose. She denies fevers or chills, nausea, vomiting. She states that the pain reminds her of when she had a right sided ovarian cyst. Objective Data Objective Data Vital Signs: Vital Signs Temp Pulse Resp BP Pulse Ox O2 Del Method O2 Flow Rate 98.0 F 79 16 93/58 L 97 Room Air 4 08/12/22 04:19 08/12/22 04:19 08/12/22 04:19 08/12/22 04:19 08/12/22 07:23 08/12/22 07:23 08/11/22 06:00 Oxygen Flow Rate (L/min) 4 Oxygen Delivery Method Room Air Weight: 134 lb 7.712 oz Body Mass Index (BMI) 26.4 Intake & Output: Intake and Output for Last 24 Hours 08/10/22 08/11/22 08/12/22 23:59 23:59 23:59 Intake Total 3357 / 3357 1979.58 / 1979.58 Output Total 2585 / 2585 300 / 300 Balance 3357 / 3247 -605.42 / -605.42 -300 / -300 Lab / Micro Data Result Diagrams: 08/12/22 05:24 08/12/22 05:24 Labs: Laboratory Results - last 24 hr 08/11/22 06:24: Sodium 140, Potassium 3.9, Chloride 111 H, Carbon Dioxide 26.0, Anion Gap 3 L, BUN 10, Creatinine 0.76, Estim Creat Clear Calc 101.39, Est GFR (MDRD) Af Amer 112, Est GFR (MDRD) Non-Af 92, BUN/Creatinine Ratio 13.1, Glucose 130 H, Calcium 7.8 L, Total Bilirubin 1.10 H, AST 11 L, ALT 17, Alkaline Phosphatase 46, Total Protein 6.1 L, Albumin 3.1 L, Globulin 3.0, Albumin/Globulin Ratio 1.0 08/11/22 08:27: Hgb 11.5 L, Hct 36.6 L 08/12/22 05:24: WBC 8.4, RBC 4.04 L, Hgb 11.1 L, Hct 34.8 L, MCV 86.1, MCH 27.5, MCHC 31.9 L, RDW Std Deviation 41.9, RDW Coeff of Eulogio 13.3, Plt Count 194, MPV 9.3, Immature Gran % (Auto) 0.200, Neut % (Auto) 76.5 H, Lymph % (Auto) 15.8 L, [place]e % (Auto) 7.0, Eos % (Auto) 0.4, Baso % (Auto) 0.1, Absolute Neuts (auto) 6.4, Absolute Lymphs (auto) 1.33, Nucleated RBC % 0 08/12/22 05:24: Sodium 140, Potassium 3.7, Chloride 110 H, Carbon Dioxide 26.0, Anion Gap 4 L, BUN 14, Creatinine 0.60, Estim Creat Clear Calc 128.42, Est GFR (MDRD) Af Amer 148, Est GFR (MDRD) Non-Af 122, BUN/Creatinine Ratio 23.3 H, Glucose 105, Calcium 8.0 L, Total Bilirubin 0.80, AST 25, ALT 35, Alkaline Phosphatase 39 L, Total Protein 5.5 L, Albumin 2.7 L, Globulin 2.8, Albumin/Globulin Ratio 1.0 ROS Constitutional Constitutional: Reports systems reviewed and no addt'l complaints, except as documented Cardiovascular Cardiovascular: Denies chest pain, dizziness, dyspnea or irregular heart rhythm Respiratory/Chest Respiratory/Chest: Denies cough, pain on inspiration or shortness of breath at rest Gastrointestinal Gastrointestinal: Denies abdominal pain, nausea or vomiting Musculoskeletal Musculoskeletal: Denies muscle cramps, muscle spasms or muscle weakness Neurologic Neurologic: Denies confusion, dizziness, headache(s) or lack of coordination Psychiatric Psychiatric: Denies anxiety, behavioral changes or depression Physical Exam HEENT normocephalic Resp normal respiratory effort and normal air movement GI soft to palpation, non-tender and non-distended Rectal Exam: other Other Details: Incision is clean, dry, and intact no CVA tenderness Extremity normal to inspection Assessment & Plan (1) Status post hysterectomy: PLAN: uncomplicated surgery overall complicated with post op pain, urinary retention, and diarrhea. cr. level lower than yesterday and at her baseline. I do not appreciate any CVA tenderness on exam. little suspicion for ureteral involvement however if her pain gets worse we will need to obtain a CT urogram -ok to dc pichardo for now and encourage PO fluids and ambulation. -start acidophilus and Imodium. obtain stool culture.
[2022-08-12 07:51] VITALS: BP 90/49; PULSE 89; RESP 18; TEMP 36.6; O2SAT 98
[2022-08-12 08:00] VITALS: PULSE 56
--- NOTE | 2022-08-12 08:31 | US_ITS ---
STUDY: RENAL ULTRASOUND - COMPLETE REASON FOR EXAM: Female, 32 years old. Right flank pain, status post hysterectomy TECHNIQUE: Ultrasound evaluation of the kidneys was performed with real-time and static christian-scale imaging. COMPARISON: None. FINDINGS: RIGHT KIDNEY: Normal location of the right kidney, which is normal in size. The right kidney measures 9.8 cm x 4.4 cm x 4.1 cm. There is a normal cortex of the right kidney. The renal cortex measures 1.1 cm. There is no right renal mass or cyst. There are no right renal calculi. There is no right hydronephrosis. DISTAL RIGHT URETER: There is non-visualization of the distal right ureter. There is no demonstrated right ureterovesical junction calculus. There is a visualized right ureteral jet. LEFT KIDNEY: Normal location of the left kidney, which is normal in size. The left kidney measures 10.9 cm x 4.7 cm x 5.5 cm. There is a normal cortex of the left kidney. The renal cortex measures 1.7 cm. There is no left renal mass or cyst. There are no left renal calculi. There is no left hydronephrosis. DISTAL LEFT URETER: There is non-visualization of the distal left ureter. There is no demonstrated left ureterovesical junction calculus. There is a visualized left ureteral jet. BLADDER: The distended urinary bladder has a volume of 295 ml. There is a normal wall thickness of the distended urinary bladder. There is no demonstrated mass within the urinary bladder. There are no demonstrated bladder calculi. US/Kidney and Bladder IMPRESSION: Normal ultrasound of the kidneys and urinary bladder. Electronically Signed: Sixto Monge MD at 11:10 EST ,
[2022-08-12 09:02] VITALS: BP 89/55; PULSE 83; RESP 18; TEMP 37; O2SAT 98
[2022-08-12] MEDS: Enoxaparin 40 MG/0.4 ML Syringe SC (09:33)
[2022-08-12] MEDS: Docusate Sodium 100 MG Capsule PO (09:33)
[2022-08-12] MEDS: oxyCODONE 5 MG Tablet PO ×2 (09:35→14:34)
--- NOTE | 2022-08-12 13:05 | DS.PCM_ITS ---
Providers Date of Admission: 08/10/22 Primary Care Physician: Dr. Naheed Kam DO Reason For Visit: LAVH, POSS CYSTO Diagnosis Discharge Diagnosis (1) Status post hysterectomy: Status: Acute Code(s): Z90.710 - Acquired absence of both cervix and uterus Plan: uncomplicated surgery overall complicated with post op pain, urinary retention, and diarrhea. cr. level lower than yesterday and at her baseline. I do not appreciate any CVA tenderness on exam. little suspicion for ureteral involvement however if her pain gets worse we will need to obtain a CT urogram -ok to dc pichardo for now and encourage PO fluids and ambulation. -start acidophilus and Imodium. obtain stool culture. Medications at Discharge Home Medications valacyclovir 500 mg tablet (Valtrex) 500 mg PO BID PRN cold sores #20 tabs 02/10/22 ibuprofen 800 mg tablet 800 mg PO Q8H PRN pain 7 days #30 tabs 08/10/22 ondansetron 4 mg disintegrating tablet 4 mg PO Q8H PRN nausea and vomiting #30 tabs 08/10/22 oxycodone-acetaminophen 5 mg-325 mg tablet (Percocet) 1 tab PO Q4H PRN pain 7 days #30 tabs 08/10/22 Hospital Course Operations hysterectomy and - Summary of Care Provided Minutes Spent on Discharge: 20 Hospital Course: THe patient was admitted on 08/10/22 for an LAVH without complications. She was admitted over night or pain control. on pod #1 she complained of right lower abdominal and back pain. Muscle relaxers were given along with percocet and toradol. SHe developed diarrhea on the night of pod #1. On the am of POD#2 an ultrasound was performed shownig + ureteral jets from both ureters and kidney size were normal. Her diarrhea resolved and the decision was made to discharge to home. Physical Exam HEENT normocephalic Resp normal respiratory effort and normal air movement GI soft to palpation, non-tender and non-distended Rectal Exam: other Other Details: Incision is clean, dry, and intact no CVA tenderness Extremity normal to inspection General Extremity: edema bilateral (trace ) Weight / BMI Weight Weight: 134 lb 7.712 oz Body Mass Index (BMI) 26.4 ABG / Lab / Microbiology Data Result Diagrams: 08/12/22 05:24 08/12/22 05:24 Laboratory: Laboratory Results - last 24 hr 08/12/22 05:24: WBC 8.4, RBC 4.04 L, Hgb 11.1 L, Hct 34.8 L, MCV 86.1, MCH 27.5, MCHC 31.9 L, RDW Std Deviation 41.9, RDW Coeff of Eulogio 13.3, Plt Count 194, MPV 9.3, Immature Gran % (Auto) 0.200, Neut % (Auto) 76.5 H, Lymph % (Auto) 15.8 L, [place] % (Auto) 7.0, Eos % (Auto) 0.4, Baso % (Auto) 0.1, Absolute Neuts (auto) 6.4, Absolute Lymphs (auto) 1.33, Nucleated RBC % 0 08/12/22 05:24: Sodium 140, Potassium 3.7, Chloride 110 H, Carbon Dioxide 26.0, Anion Gap 4 L, BUN 14, Creatinine 0.60, Estim Creat Clear Calc 128.42, Est GFR (MDRD) Af Amer 148, Est GFR (MDRD) Non-Af 122, BUN/Creatinine Ratio 23.3 H, Glucose 105, Calcium 8.0 L, Total Bilirubin 0.80, AST 25, ALT 35, Alkaline Phosphatase 39 L, Total Protein 5.5 L, Albumin 2.7 L, Globulin 2.8, Albumin/Globulin Ratio 1.0 Radiography Diagnostic Testing: Radiology Impression Renal Ultrasound 08/12/22 08:31 IMPRESSION: Normal ultrasound of the kidneys and urinary bladder. Electronically Signed: Sixto Monge MD at 11:10 EST , D/C Instructions Discharge Diet: No restrictions May resume sexual activity in: 6 weeks Weight Bearing Status: Full weight bearing Call your doctor if your incision/area has: Continuous Slow Oozing, Sudden Increased Bleeding, Increased Pain/ Swelling, Increased Redness and Foul Smelling Discharge Call your doctor if you observe: Fever of 101 or Higher, Using more than 1 pad per hour, Shortness of breath, Chest pain and Uncontrolled pain Suture Line Care: Avoid Pulling/Pushing and Avoid Pinching/Bending Cleanse incision/area with: Soap & Water and Keep Dressing Clean & Dry Please Follow Up With: Nisha Edouard DO When: Call to make an appointment with your doctor for a postop visit in 2 and 6 weeks Meaningful Use Info Meaningful Use Diagnoses (Choose all that apply): None applicable Discharge Plan Admission Admit Date/Time: 08/10/22 18:21 Primary Reason for Your Visit: hysterectomy Attending Provider: Nisha Edouard Primary Care Provider: Naheed Kam Consulting Providers: Tigre Mancuso Discharge Orders/Prescriptions Prescriptions: New ondansetron 4 mg tablet,disintegrating 4 mg PO Q8H PRN (Reason: nausea and vomiting) Qty: 30 0RF ibuprofen 800 mg tablet 800 mg PO Q8H PRN (Reason: pain) 7 Days Qty: 30 0RF oxycodone-acetaminophen [Percocet] 5-325 mg tablet 1 tab PO Q4H PRN (Reason: pain) 7 Days Qty: 30 0RF Continued valacyclovir [Valtrex] 500 mg tablet 500 mg PO BID PRN (Reason: cold sores) Qty: 20 2RF Discontinued norethindrone (contraceptive) [Apoorva] 0.35 mg tablet 0.35 mg PO QDAY Qty: 84 4RF Rx Instructions: start day 1 of menstrual cycle Referrals / Follow Up: Naheed Kam DO [Primary Care Provider] - Disposition Disposition (needs filled in before D/C Order can be placed): Home, Self Care
[2022-08-12 14:50] VITALS: BP 97/66; PULSE 84; RESP 16; TEMP 37.1; O2SAT 98
== END 2022-08-12 14:47 | disposition home or self-care (01) ==
LOC: SDC 20:24 → MS3 08-11 08:47
PROVIDERS: Anesthesiology; Admitting Provider Obstetrics & Gynecology; PCP Family Medicine; Referring Provider Obstetrics & Gynecology; Visit Provider Obstetrics & Gynecology
PROC: 0UT9FZZ Resection of Uterus, Via Natural or Artificial Opening With Percutaneous Endoscopic Assistance (ICD-10-PCS; CPT 58552; principal; 2022-08-10 10:30)
DX: N92.1 Excessive and frequent menstruation with irregular cycle (principal); R19.7 Diarrhea, unspecified; M99.01 Segmental and somatic dysfunction of cervical region; M99.03 Segmental and somatic dysfunction of lumbar region; M99.02 Segmental and somatic dysfunction of thoracic region; A60.00 Herpesviral infection of urogenital system, unspecified; Z79.899 Other long term (current) drug therapy
CPT/HCPCS: 58552; 00944; 96367 ×2; 36415; 51702; 76770; 80053; 81025; 82962; 83735; 85014; 85018; 85025; 85027; 86850; 86900; 86901; 88307; 94762; 96361; 96374; 96375; 96376; 99218; 99251; J7030; J7120; A4216; G0378; G0463; J2405; J3475

== ENCOUNTER 2022-08-13 10:20 | Emergency (ER) | payer OTHER, SELFPAY ==
[2022-08-13 10:22] VITALS: BP 119/80; PULSE 83; RESP 14; TEMP 36.1; O2SAT 99; BMI 28.2
--- NOTE | 2022-08-13 10:34 | CT_ITS ---
STUDY: CT ABDOMEN AND PELVIS WITH CONTRAST REASON FOR EXAM: Female, 32 years old. Abdominal pain S/P TOTAL HYSTERECTOMY 08/10/22 RADIATION DOSAGE (If Supplied By Facility): CTDIvol = ( 9.00 ) mGy, DLP = ( 546.97 ) mGycm TECHNIQUE: Transaxial images were obtained from the dome of the diaphragm to the symphysis pubis without oral contrast. IV 100mL Isovue-300 was administered. Sagittal and coronal images were reconstructed. Individualized dose optimization techniques were used for this CT. COMPARISON: None. FINDINGS: Tiny bilateral pleural effusions with mild degree of bibasilar atelectasis. The visualized portions of the heart are within normal limits. Normal liver. Annual mammogram pericholecystic fluid. Normal spleen. Normal pancreas. Normal bilateral adrenal glands. Normal right kidney. Normal left kidney. Normal visualized stomach. Normal small intestine. There is evidence of mucosal thickening of the ascending colon and proximal transverse colon suggestive of a possible colitis. Increased markings are seen in the surrounding fat. The appendix is visualized and appears normal. Normal abdominal aorta. Normal inferior vena cava. Normal retroperitoneum. Normal urinary bladder. Small amount of fluid is seen in the cul-de-sac. There is a 2.3 cm x 1.7 cm well-defined rounded hypodensity in the pelvis at the level of the operative site. Correlation with ultrasound of the pelvis is recommended. The patient is status post cholecystectomy. Normal abdominal wall. Normal osseous structures. CT/Abdomen/Pelvis W IV Cont ONLY IMPRESSION: Fluid is seen in the pelvis. The patient is status post hysterectomy. Correlation with a pelvic sonogram is recommended for further evaluation. Tiny bilateral pleural effusions with bibasilar atelectasis. Small amount of pericholecystic fluid. Findings suggestive of inflammatory changes of the descending colon and proximal transverse colon. Electronically Signed: Sixto Monge MD at 12:02 [facility] ,
--- NOTE | 2022-08-13 10:34 | ED.VIS.GI ---
HPI HPI - GI History of Present Illness Chief Complaint: Other, Pain/Inj Narrative Narrative: 32-year-old female presenting with right-sided abdominal pain. She states she is status post hysterectomy on the sixth. This was performed by Dr. Shepherd. Patient had some postoperative pain and was in the hospital for couple of days. She was released yesterday. She also had some issues with urinary retention. States her pain is worse than when she was in the hospital and now is an 8 of 10. She has not had any nausea or vomiting. She states she is able to eat. She denies constipation but states she still having diarrhea like she did when she was in the hospital. No black or bloody stools. She has not had a fever. PFSH PFS Medical History Abnormal mammogram of left breast Anxiety and depression Breast mass, left COVID-19 Frequent headaches Heartburn Mass of head Wears contact lenses Wears glasses Home Medications valacyclovir 500 mg tablet (Valtrex) 500 mg PO BID PRN cold sores #20 tabs 02/10/22 [Rx Last Taken Unknown] ibuprofen 800 mg tablet 800 mg PO Q8H PRN pain 7 days #30 tabs 08/10/22 [Rx Last Taken Unknown] ondansetron 4 mg disintegrating tablet 4 mg PO Q8H PRN nausea and vomiting #30 tabs 08/10/22 [Rx Last Taken Unknown] oxycodone-acetaminophen 5 mg-325 mg tablet (Percocet) 1 tab PO Q4H PRN pain 7 days #30 tabs 08/10/22 [Rx Last Taken Unknown] Allergy/AdvReac Type Severity Reaction Status Date / Time hydromorphone [From Dilaudid] AdvReac Other Verified 08/13/22 10:21 oxycodone [From Percocet] AdvReac Nausea Verified 08/13/22 10:21 Family History Father Diabetes Hypertension Mother Hypertension Surgical History History of section History of dilation and curettage lumpectomy back of head Social History Smoking Status: Never smoker alcohol intake: current alcohol intake frequency: holidays/special occasions only details: pre- substance use type: does not use caffeine: Yes what type of physical activity do you participate in: walking and other details: cardio frequency: 5-6 times per week seatbelt use: always do you feel safe at home: Yes additional social history: [place] Patient works at [employer] ROS ED Constitutional Constitutional ED: Denies chills or fever(s) ENT ENT ED: Denies rhinorrhea or sore throat Cardiovascular Cardiovascular: Denies chest pain or palpitations Respiratory/Chest Respiratory/Chest: Denies cough or dyspnea Gastrointestinal Gastrointestinal: Reports abdominal pain and diarrhea Genitourinary Genitourinary ED: Denies dysuria or hematuria Musculoskeletal Musculoskeletal: Denies arthralgias or back pain Integumentary Denies abscess or Abrasions Neurologic Neurologic: Denies headache(s) or paresthesias Psychiatric Psychiatric: Denies anxiety or depression EXAM Physical Exam Const Vital Signs: 08/13/22 10:22 08/13/22 15:53 Temperature 97 F L Temperature Source Temporal Pulse Rate 83 96 Respiratory Rate 14 14 Blood Pressure 119/80 124/77 H Blood Pressure Mean 93 92 Pulse Ox 99 100 Oxygen Delivery Method Room Air Room Air Positive well nourished General Appearance ED: Negative for pallor HEENT Reports moist mucous membranes normocephalic Eyes PERRL and EOMs intact bilaterally Resp normal respiratory effort Cardio regular rate GI Palpation: tender RLQ and RUQ Neuro CN's II-XII intact bilaterally Sensorium / Orientation: alert Psych mental status grossly normal Skin Skin Narrative: Incision sites clean dry and intact. General Skin Exam: Negative for jaundice or pallor MDM MDM MDM Narrative Medical decision making narrative: Patient presenting with abdominal pain postoperatively. She states the pain is worse. She denies any nausea, vomiting, fever, chills, constipation. She has no urinary or vaginal complaints. She does have a little bit of diarrhea which has been present since she was in the hospital. Blood work is obtained and her CBC shows a minimal white blood cell count of 11.1. Hemoglobin hematocrit are stable. Platelets normal. Renal function electrolytes within normal limits. LFTs are normal with exception of bilirubin at 1.3 but this is not new. Lipase negative. Initially obtained a CT of the abdomen pelvis with IV contrast, which showed very small bilateral pleural effusions, trace pericholecystic fluid, inflammatory changes around the transverse and descending colon. This is consistent with the patient having diarrhea illness. There were some abnormal findings around the incision sites on the CT however after speaking with Dr. Shepherd she said this was expected and this is not anything that needs to be surgical. The radiologist recommended transvaginal ultrasound for follow-up on the CT per Dr. Shepherd wants to hold off after having recent hysterectomy. She did want to get a right upper quadrant ultrasound to make sure she did not have any gallbladder disease and this was performed and is negative. Again patient's LFTs are not remarkable. Patient counseled on all findings and she will follow-up with Dr. Shepherd outpatient. She has oxycodone at home. She also has 800 mg ibuprofens. She is counseled to alternate pain medications as needed. She is discharged home in stable condition. Impression: 1. Abdominal pain 2. Postop pain Lab Data Attestation: I reviewed the patient's lab results. Labs: Laboratory Results - last 24 hr 08/13/22 08/13/22 10:55 10:55 WBC 11.1 H RBC 4.27 Hgb 11.1 L Hct 36.0 L MCV 84.3 MCH 26.0 L MCHC 30.8 L RDW Std Deviation 40.9 RDW Coeff of Eulogio 13.2 Plt Count 228 MPV 9.7 Immature Gran % (Auto) 0.500 Neut % (Auto) 81.3 H Lymph % (Auto) 10.6 L [place] % (Auto) 7.0 Eos % (Auto) 0.5 Baso % (Auto) 0.1 Absolute Neuts (auto) 9.0 H Absolute Lymphs (auto) 1.17 Nucleated RBC % 0 Sodium 140 Potassium 3.5 Chloride 108 H Carbon Dioxide 28.0 Anion Gap 4 L BUN 6 L Creatinine 0.58 Estim Creat Clear Calc 99.10 Est GFR (MDRD) Af Amer 155 Est GFR (MDRD) Non-Af 128 BUN/Creatinine Ratio 10.4 Glucose 106 Calcium 8.6 Total Bilirubin 1.30 H AST 14 L ALT 29 Alkaline Phosphatase 51 Total Protein 6.3 L Albumin 2.9 L Globulin 3.4 Albumin/Globulin Ratio 0.9 Lipase 52 L Radiography Diagnostic Testing: Clinical Impression(s) from Imaging Studies Abdomen/Pelvis CT 08/13/22 10:34 IMPRESSION: Fluid is seen in the pelvis. The patient is status post hysterectomy. Correlation with a pelvic sonogram is recommended for further evaluation. Tiny bilateral pleural effusions with bibasilar atelectasis. Small amount of pericholecystic fluid. Findings suggestive of inflammatory changes of the descending colon and proximal transverse colon. Electronically Signed: Sixto Monge MD at 12:02 EST , Gallbladder Ultrasound 08/13/22 14:09 IMPRESSION: Normal right upper quadrant ultrasound examination. Small right pleural effusion. Electronically Signed: Sixto Monge MD at 15:37 EST , Discharge Plan Triage Chief Complaint: Other, Pain/Inj ED Provider: Vicente Villanueva Dx/Rx/DC Orders Instructions: ED Post Op Wound Check, Pain Prescriptions: No Action valacyclovir [Valtrex] 500 mg tablet 500 mg PO BID PRN (Reason: cold sores) Qty: 20 2RF ondansetron 4 mg tablet,disintegrating 4 mg PO Q8H PRN (Reason: nausea and vomiting) Qty: 30 0RF ibuprofen 800 mg tablet 800 mg PO Q8H PRN (Reason: pain) 7 Days Qty: 30 0RF oxycodone-acetaminophen [Percocet] 5-325 mg tablet 1 tab PO Q4H PRN (Reason: pain) 7 Days Qty: 30 0RF Primary Care Provider: Naheed Kam Referrals: Naheed Kam DO [Primary Care Provider] - Disposition Disposition: Home, Self Care
[2022-08-13] MEDS: Ondansetron 4 MG/2 ML Vial IV (10:50)
[2022-08-13] MEDS: Morphine 4 MG/ML Syringe IV ×2 (10:51→13:17)
[2022-08-13 11:06] LABS: Absolute Lymphocyte Count 1.17 X10^3/uL (0.83-4.51); Basophil# 0.01 X10^3/uL; Basophil% 0.1 % (0-1); Eosinophil# 0.05 X10^3/uL; Eosinophils% 0.5 % (0-5); Hemoglobin 11.1 g/dL (12.0-15.0); Lymphocyte # 1.17 X10^3/ul (0.83-4.51); Lymphocyte % 10.6 % (19-41); Mean Corp Hgb Conc 30.8 g/dL (32-36); Mean Corpuscular Volume 84.3 fL (81-99); Mean Platelet Vol. 9.7 fl (6.2-12.0); Monocyte# 0.77 X10^3/uL; NRBC Flagged by Analyzer 0 % (0-5); Neutrophil # 9.02 X10^3/uL (2.7-7.7); Neutrophil % 81.3 % (47-70); Platelet Count 228 K/mm3 (150-450); RBC Distribution Width CV 13.2 % (11.6-14.6); RBC Distribution Width SD 40.9 fl (35.1-43.9); Red Blood Count 4.27 M/mm3 (4.2-5.4); White Blood Count 11.1 K/mm3 (4.4-11.0)
[2022-08-13 11:22] LABS: ALB/GLOB Ratio 0.9 RATIO (0.9-2.4); AST(SGOT) 14 U/L (15-37); Alanine Aminotransfer ALT/SGPT 29 U/L (13-56); Albumin, Serum 2.9 g/dL (3.2-5.0); Alkaline Phosphatase 51 U/L (45-117); Anion Gap 4 (5-15); BUN 6 mg/dL (7-18); BUN/Creat Ratio 10.4 RATIO (10-20); Calcium,Total 8.6 mg/dL (8.5-10.1); Chloride 108 mmol/L (98-107); Creatinine, Serum 0.58 mg/dL (0.55-1.02); EST Glomerular Filtration Rate 128 mL/min (>60); Est Glom Filt Rate - Afr Amer 155 mL/min (>60); Globulin 3.4 g/dL (2.2-4.2); Glucose 106 mg/dL (74-106); Lipase 52 U/L (73-393); Potassium 3.5 mmol/L (3.5-5.1); Protein, Total 6.3 g/dL (6.4-8.2); Sodium Level 140 mmol/L (136-145)
--- NOTE | 2022-08-13 14:09 | US_ITS ---
STUDY: ABDOMINAL ULTRASOUND - RIGHT UPPER QUADRANT REASON FOR VISIT: Female, 32 years old ruq pain -- HX OF HYSTERECTOMY 3 DAYS AGO TECHNIQUE: Ultrasound evaluation of the right upper quadrant was performed with real-time and static soriano-scale imaging. TECHNICAL QUALITY: Adequate. COMPARISON: Comparison is made with prior CT scan done earlier today. FINDINGS: Liver: The liver measures 16.3 cm. There is normal echogenicity of the liver. The bile ducts are within normal limits. There is hepatic color flow. The direction of portal flow is hepatopetal. There is no demonstrated mass lesion. Gallbladder: Normal distended gallbladder. The gallbladder wall measures 2.8 mm. There is a negative sonographic Dubon''s sign. There is no pericholecystic fluid. There are no gallstones. Common Bile Duct (C.B.D.): The common bile duct measures 3.2 mm. Pancreas: Normal size of the head, body and tail of the pancreas. There is normal echogenicity of the pancreas. There is no demonstrated pancreatic mass or cyst. Right Kidney: Normal size of the right kidney. The right kidney measures 10.5 cm x 5.4 cm x 4.1 cm. Normal renal cortex. The right cortex measures 1.3 cm. There is no demonstrated renal mass or cyst. There is no right hydronephrosis. Incidental note is made of a small right pleural effusion. US/Gallbladder IMPRESSION: Normal right upper quadrant ultrasound examination. Small right pleural effusion. Electronically Signed: Sixto Monge MD at 15:37 EST ,
[2022-08-13 15:53] VITALS: BP 124/77; PULSE 96; RESP 14; O2SAT 100
== END 2022-08-13 16:18 | disposition home or self-care (01) ==
PROVIDERS: Emergency Provider Student in an Organized Health Care Education/Training Program; PCP Family Medicine; Visit Provider Student in an Organized Health Care Education/Training Program
DX: R10.9 Unspecified abdominal pain (principal); G89.18 Other acute postprocedural pain; R33.9 Retention of urine, unspecified
CPT/HCPCS: 74177; 76705; 80053; 83690; 85025; 96374; 96375; 96376; 99283; J7030; Q9967; A4216; J2405

== ENCOUNTER 2022-08-23 11:48 | Inpatient (IN) | payer OTHER, SELFPAY ==
[2022-08-23] VITALS (17 sets, daily range): BP systolic 96–122; BP diastolic 63–80; PULSE 86–109; RESP 13–20; TEMP 36.3–37.2; O2SAT 94–100; BMI 25.4
--- NOTE | 2022-08-23 11:59 | CT_ITS ---
STUDY: CT ABDOMEN AND PELVIS WITH CONTRAST REASON FOR EXAM: Female, 32 years old. s/p hysterectomy r/o abscess RADIATION DOSAGE (If Supplied By Facility): CTDIvol = ( 9.33 ) mGy, DLP = ( 401.81 ) mGycm TECHNIQUE: Transaxial images were obtained from the dome of the diaphragm to the symphysis pubis without oral contrast. IV 100mL Isovue-370 was administered. Sagittal and coronal images were reconstructed. Individualized dose optimization techniques were used for this CT. COMPARISON: Comparison is made with prior study dated 08/13/2022. FINDINGS: Tiny left pleural effusion with left basilar atelectasis. The visualized portions of the heart are within normal limits. Normal liver. Normal gallbladder and extrahepatic biliary system. Normal spleen. Normal pancreas. Normal bilateral adrenal glands. Normal right kidney. Normal left kidney. Normal visualized stomach. Normal small intestine. Normal colon. The appendix is visualized and appears normal. Normal abdominal aorta. Normal inferior vena cava. Normal retroperitoneum. Normal urinary bladder. There is a 4.8 cm by 6.1 cm x 5 cm complex cystic structure in the cul-de-sac extending towards the right side of the midline. Septations are seen. This most likely represents a postoperative pelvic abscess. Normal abdominal wall. Normal osseous structures. CT/Abdomen/Pelvis W IV Cont ONLY IMPRESSION: Status post hysterectomy. Findings suggestive of a 4.8 cm by 6.1 cm by 5 cm complex cystic structure with septations in the cul-de-sac extending to the right adnexal region suggestive of postoperative abscess. Electronically Signed: Sixto Monge MD at 12:43 EST ,
[2022-08-23 12:21] LABS: Absolute Lymphocyte Count 1.66 X10^3/uL (0.83-4.51); Basophil# 0.04 X10^3/uL; Basophil% 0.2 % (0-1); Eosinophil# 0.08 X10^3/uL; Eosinophils% 0.4 % (0-5); Hematocrit 38.2 % (37-47); Hemoglobin 12.4 g/dL (12.0-15.0); Lymphocyte # 1.66 X10^3/ul (0.83-4.51); Lymphocyte % 7.9 % (19-41); Mean Corp Hgb Conc 32.5 g/dL (32-36); Mean Corpuscular Hgb 27.1 pg (27.0-32.0); Mean Corpuscular Volume 83.4 fL (81-99); Mean Platelet Vol. 9.2 fl (6.2-12.0); Monocyte% 5.7 % (0-10); NRBC Flagged by Analyzer 0 % (0-5); Neutrophil # 18.02 X10^3/uL (2.7-7.7); Neutrophil % 85.4 % (47-70); Platelet Count 363 K/mm3 (150-450); RBC Distribution Width CV 12.9 % (11.6-14.6); RBC Distribution Width SD 39.3 fl (35.1-43.9); Red Blood Count 4.58 M/mm3 (4.2-5.4); White Blood Count 21.1 K/mm3 (4.4-11.0)
[2022-08-23 12:25] LABS: Anion Gap 6 (5-15); BUN 9 mg/dL (7-18); BUN/Creat Ratio 13.4 RATIO (10-20); Calcium,Total 9.4 mg/dL (8.5-10.1); Chloride 105 mmol/L (98-107); Creatinine, Serum 0.67 mg/dL (0.55-1.02); EST Glomerular Filtration Rate 107 mL/min (>60); Est Glom Filt Rate - Afr Amer 129 mL/min (>60); Estimated Creatinine Clearance 85.78 ml/min; Glucose 96 mg/dL (74-106); Potassium 3.8 mmol/L (3.5-5.1); Sodium Level 137 mmol/L (136-145)
[2022-08-23 12:54] LABS: Mucous, Urine 0 SEEN /hpf (<or=2+)
--- NOTE | 2022-08-23 13:05 | EDS_ITS ---
HPI <CLEVE Dawson - Last Filed: 08/23/22 21:59> History of Present Illness Chief Complaint: Abd Pain Narrative Narrative: Patient presents today after having a follow-up appointment with Cindy Vivas for her hysterectomy that was performed August 10. She states since the surgery she has had right lower quadrant abdominal pain and presented to the ER August [address] scan abd/pelvis did not show any abscess or other abnormality. Patient states that on Tuesday she began to develop severe rectal pain and gas buildup in her abdomen that became very uncomfortable. She began feeling weak and had several episodes of sweating and chills. Today her WBC was [address] of the abdomen and pelvis suggests a postoperative abscess. PFSH <CLEVE Dawson - Last Filed: 08/23/22 21:59> PFSH Medical History Abnormal mammogram of left breast Anxiety and depression Breast mass, left COVID-19 Frequent headaches Heartburn Mass of head Wears contact lenses Wears glasses Home Medications ibuprofen 800 mg tablet 800 mg PO Q8H PRN pain 7 days #30 tabs 08/10/22 [Rx Last Taken 08/23/22] acetaminophen 500 mg tablet 1,000 mg PO Q6H PRN Pain 08/23/22 [History Last Taken 08/23/22] valacyclovir 500 mg tablet 500 mg PO BID PRN Cold Sores 08/23/22 [History Last Taken 08/22/22] Allergy/AdvReac Type Severity Reaction Status Date / Time hydromorphone [From Dilaudid] AdvReac Other Verified 08/23/22 11:52 oxycodone [From Percocet] AdvReac Nausea Verified 08/23/22 11:52 Family History Father Diabetes Hypertension Mother Hypertension Surgical History History of section History of dilation and curettage lumpectomy back of head Status post hysterectomy Social History Smoking Status: Never smoker alcohol intake: current alcohol intake frequency: holidays/special occasions only details: pre- substance use type: does not use caffeine: Yes what type of physical activity do you participate in: walking and other details: cardio frequency: 5-6 times per week seatbelt use: always do you feel safe at home: Yes additional social history: [place] Patient works at [employer] <CLEVE Dawson - Last Filed: 08/23/22 21:59> ROS ED Constitutional Constitutional ED: Reports chills and sweats; Denies fever(s) Eyes Eyes: Denies blurry vision, change in vision or diplopia ENT ENT ED: Denies rhinorrhea or sore throat Cardiovascular Cardiovascular: Reports palpitations; Denies chest pain or racing heartbeat Respiratory/Chest Respiratory/Chest: Denies cough, dyspnea or dyspnea on exertion Gastrointestinal Gastrointestinal: Reports abdominal pain; Denies nausea or vomiting Genitourinary Genitourinary ED: Denies dysuria, hematuria or urinary frequency Musculoskeletal Musculoskeletal: Denies back pain or neck pain Integumentary Denies abscess, Abrasions or rash Neurologic Neurologic: Reports weakness; Denies headache(s) or paresthesias Psychiatric Psychiatric: Denies anxiety, depression or suicidal ideation EXAM <CLEVE Dawson - Last Filed: 08/23/22 21:59> Physical Exam Const Vital Signs: 08/23/22 11:49 08/23/22 13:30 08/23/22 13:48 Temperature 97.3 F L 99.0 F Temperature Source Temporal Pulse Rate 109 H 107 H Pulse Rate [1 (Initial Baseline)] 98 Pulse Rate [2] 97 Pulse Rate [3] 92 Pulse Rate [4] 101 H Pulse Rate [5] 98 Pulse Rate [6] 97 Respiratory Rate 16 14 Respiratory Rate [1 (Initial Baseline)] 19 H Respiratory Rate [2] 18 Respiratory Rate [3] 15 Respiratory Rate [4] 14 Respiratory Rate [5] 16 Respiratory Rate [6] 13 Blood Pressure 110/77 122/80 H Blood Pressure [1 (Initial Baseline)] 114/77 Blood Pressure [2] 109/78 Blood Pressure [3] 110/73 Blood Pressure [4] 114/76 Blood Pressure [5] 117/80 Blood Pressure [6] 112/72 Blood Pressure Mean 88 Blood Pressure Source Blood Pressure Position Blood Pressure Location Pulse Ox 100 100 Oxygen Delivery Method Room Air Room Air Oxygen Delivery Method [1 (Initial Baseline)] Room Air Oxygen Delivery Method [2] Room Air Oxygen Delivery Method [3] Room Air Oxygen Delivery Method [4] Room Air Oxygen Delivery Method [5] Room Air Oxygen Delivery Method [6] Room Air 08/23/22 14:10 08/23/22 14:15 08/23/22 14:20 Temperature Temperature Source Pulse Rate 94 94 97 Pulse Rate [1 (Initial Baseline)] Pulse Rate [2] Pulse Rate [3] Pulse Rate [4] Pulse Rate [5] Pulse Rate [6] Respiratory Rate 19 H 19 H 13 Respiratory Rate [1 (Initial Baseline)] Respiratory Rate [2] Respiratory Rate [3] Respiratory Rate [4] Respiratory Rate [5] Respiratory Rate [6] Blood Pressure 108/77 109/73 116/72 Blood Pressure [1 (Initial Baseline)] Blood Pressure [2] Blood Pressure [3] Blood Pressure [4] Blood Pressure [5] Blood Pressure [6] Blood Pressure Mean 87 85 86 Blood Pressure Source Monitor Monitor Monitor Blood Pressure Position Prone Left Lateral Left Lateral Blood Pressure Location Right Arm Right Arm Right Arm Pulse Ox 94 100 98 Oxygen Delivery Method Room Air Room Air Room Air Oxygen Delivery Method [1 (Initial Baseline)] Oxygen Delivery Method [2] Oxygen Delivery Method [3] Oxygen Delivery Method [4] Oxygen Delivery Method [5] Oxygen Delivery Method [6] 08/23/22 14:25 08/23/22 14:30 08/23/22 14:45 Temperature Temperature Source Pulse Rate 92 92 Pulse Rate [1 (Initial Baseline)] Pulse Rate [2] Pulse Rate [3] Pulse Rate [4] Pulse Rate [5] Pulse Rate [6] Respiratory Rate 20 H 20 H Respiratory Rate [1 (Initial Baseline)] Respiratory Rate [2] Respiratory Rate [3] Respiratory Rate [4] Respiratory Rate [5] Respiratory Rate [6] Blood Pressure 107/72 109/71 Blood Pressure [1 (Initial Baseline)] Blood Pressure [2] Blood Pressure [3] Blood Pressure [4] Blood Pressure [5] Blood Pressure [6] Blood Pressure Mean 83 83 Blood Pressure Source Monitor Monitor Blood Pressure Position Left Lateral Left Lateral Blood Pressure Location Right Arm Right Arm Pulse Ox 99 98 Oxygen Delivery Method Room Air Room Air Room Air Oxygen Delivery Method [1 (Initial Baseline)] Oxygen Delivery Method [2] Oxygen Delivery Method [3] Oxygen Delivery Method [4] Oxygen Delivery Method [5] Oxygen Delivery Method [6] 08/23/22 15:00 08/23/22 15:15 08/23/22 16:07 Temperature 98.2 F Temperature Source Temporal Pulse Rate 98 Pulse Rate [1 (Initial Baseline)] Pulse Rate [2] Pulse Rate [3] Pulse Rate [4] Pulse Rate [5] Pulse Rate [6] Respiratory Rate 18 Respiratory Rate [1 (Initial Baseline)] Respiratory Rate [2] Respiratory Rate [3] Respiratory Rate [4] Respiratory Rate [5] Respiratory Rate [6] Blood Pressure 111/75 Blood Pressure [1 (Initial Baseline)] Blood Pressure [2] Blood Pressure [3] Blood Pressure [4] Blood Pressure [5] Blood Pressure [6] Blood Pressure Mean 87 Blood Pressure Source Blood Pressure Position Blood Pressure Location Pulse Ox 100 Oxygen Delivery Method Room Air Room Air Room Air Oxygen Delivery Method [1 (Initial Baseline)] Oxygen Delivery Method [2] Oxygen Delivery Method [3] Oxygen Delivery Method [4] Oxygen Delivery Method [5] Oxygen Delivery Method [6] 08/23/22 16:11 08/23/22 14:45 08/23/22 15:00 Temperature 98.2 F Temperature Source Temporal Pulse Rate 98 99 98 Pulse Rate [1 (Initial Baseline)] Pulse Rate [2] Pulse Rate [3] Pulse Rate [4] Pulse Rate [5] Pulse Rate [6] Respiratory Rate 18 16 17 Respiratory Rate [1 (Initial Baseline)] Respiratory Rate [2] Respiratory Rate [3] Respiratory Rate [4] Respiratory Rate [5] Respiratory Rate [6] Blood Pressure 111/75 100/63 104/75 Blood Pressure [1 (Initial Baseline)] Blood Pressure [2] Blood Pressure [3] Blood Pressure [4] Blood Pressure [5] Blood Pressure [6] Blood Pressure Mean 87 75 84 Blood Pressure Source Monitor Monitor Blood Pressure Position Left Lateral Left Lateral Blood Pressure Location Right Arm Right Arm Pulse Ox 100 100 100 Oxygen Delivery Method Room Air Room Air Room Air Oxygen Delivery Method [1 (Initial Baseline)] Oxygen Delivery Method [2] Oxygen Delivery Method [3] Oxygen Delivery Method [4] Oxygen Delivery Method [5] Oxygen Delivery Method [6] 08/23/22 15:15 08/23/22 15:30 08/23/22 15:45 Temperature Temperature Source Pulse Rate 93 94 97 Pulse Rate [1 (Initial Baseline)] Pulse Rate [2] Pulse Rate [3] Pulse Rate [4] Pulse Rate [5] Pulse Rate [6] Respiratory Rate 15 15 20 H Respiratory Rate [1 (Initial Baseline)] Respiratory Rate [2] Respiratory Rate [3] Respiratory Rate [4] Respiratory Rate [5] Respiratory Rate [6] Blood Pressure 101/63 98/65 96/63 Blood Pressure [1 (Initial Baseline)] Blood Pressure [2] Blood Pressure [3] Blood Pressure [4] Blood Pressure [5] Blood Pressure [6] Blood Pressure Mean 75 76 74 Blood Pressure Source Monitor Monitor Monitor Blood Pressure Position Left Lateral Left Lateral Left Lateral Blood Pressure Location Right Arm Right Arm Right Arm Pulse Ox 100 100 100 Oxygen Delivery Method Room Air Room Air Room Air Oxygen Delivery Method [1 (Initial Baseline)] Oxygen Delivery Method [2] Oxygen Delivery Method [3] Oxygen Delivery Method [4] Oxygen Delivery Method [5] Oxygen Delivery Method [6] Positive well nourished and well developed General Appearance ED: well developed and NAD HEENT Reports moist mucous membranes Negative for trauma or tenderness Eyes PERRL and EOMs intact bilaterally Neck no lymphadenopathy and supple Chest Wall inspection of chest normal and palpation of chest normal Resp normal respiratory effort and clear to auscultation bilaterally Cardio regular rate, regular rhythm and no murmurs GI non-distended and no masses Palpation: soft and tender RLQ Extremity normal to inspection Neuro oriented x3, CN's II-XII intact bilaterally and no sensory deficits noted Sensorium / Orientation: alert Motor Exam: strength 5/5 throughout Psych mental status grossly normal Skin no rashes or lesions noted, no wounds and skin turgor normal <Dr. Bc Weinstein MD - Last Filed: 08/23/22 13:24> Physical Exam Const Vital Signs: 08/23/22 11:49 08/23/22 13:30 08/23/22 13:48 Temperature 97.3 F L 99.0 F Temperature Source Temporal Pulse Rate 109 H 107 H Pulse Rate [1 (Initial Baseline)] 98 Pulse Rate [2] 97 Pulse Rate [3] 92 Pulse Rate [4] 101 H Pulse Rate [5] 98 Pulse Rate [6] 97 Respiratory Rate 16 14 Respiratory Rate [1 (Initial Baseline)] 19 H Respiratory Rate [2] 18 Respiratory Rate [3] 15 Respiratory Rate [4] 14 Respiratory Rate [5] 16 Respiratory Rate [6] 13 Blood Pressure 110/77 122/80 H Blood Pressure [1 (Initial Baseline)] 114/77 Blood Pressure [2] 109/78 Blood Pressure [3] 110/73 Blood Pressure [4] 114/76 Blood Pressure [5] 117/80 Blood Pressure [6] 112/72 Blood Pressure Mean 88 Blood Pressure Source Blood Pressure Position Blood Pressure Location Pulse Ox 100 100 Oxygen Delivery Method Room Air Room Air Oxygen Delivery Method [1 (Initial Baseline)] Room Air Oxygen Delivery Method [2] Room Air Oxygen Delivery Method [3] Room Air Oxygen Delivery Method [4] Room Air Oxygen Delivery Method [5] Room Air Oxygen Delivery Method [6] Room Air 08/23/22 14:10 08/23/22 14:15 08/23/22 14:20 Temperature Temperature Source Pulse Rate 94 94 97 Pulse Rate [1 (Initial Baseline)] Pulse Rate [2] Pulse Rate [3] Pulse Rate [4] Pulse Rate [5] Pulse Rate [6] Respiratory Rate 19 H 19 H 13 Respiratory Rate [1 (Initial Baseline)] Respiratory Rate [2] Respiratory Rate [3] Respiratory Rate [4] Respiratory Rate [5] Respiratory Rate [6] Blood Pressure 108/77 109/73 116/72 Blood Pressure [1 (Initial Baseline)] Blood Pressure [2] Blood Pressure [3] Blood Pressure [4] Blood Pressure [5] Blood Pressure [6] Blood Pressure Mean 87 85 86 Blood Pressure Source Monitor Monitor Monitor Blood Pressure Position Prone Left Lateral Left Lateral Blood Pressure Location Right Arm Right Arm Right Arm Pulse Ox 94 100 98 Oxygen Delivery Method Room Air Room Air Room Air Oxygen Delivery Method [1 (Initial Baseline)] Oxygen Delivery Method [2] Oxygen Delivery Method [3] Oxygen Delivery Method [4] Oxygen Delivery Method [5] Oxygen Delivery Method [6] 08/23/22 14:25 08/23/22 14:30 08/23/22 14:45 Temperature Temperature Source Pulse Rate 92 92 Pulse Rate [1 (Initial Baseline)] Pulse Rate [2] Pulse Rate [3] Pulse Rate [4] Pulse Rate [5] Pulse Rate [6] Respiratory Rate 20 H 20 H Respiratory Rate [1 (Initial Baseline)] Respiratory Rate [2] Respiratory Rate [3] Respiratory Rate [4] Respiratory Rate [5] Respiratory Rate [6] Blood Pressure 107/72 109/71 Blood Pressure [1 (Initial Baseline)] Blood Pressure [2] Blood Pressure [3] Blood Pressure [4] Blood Pressure [5] Blood Pressure [6] Blood Pressure Mean 83 83 Blood Pressure Source Monitor Monitor Blood Pressure Position Left Lateral Left Lateral Blood Pressure Location Right Arm Right Arm Pulse Ox 99 98 Oxygen Delivery Method Room Air Room Air Room Air Oxygen Delivery Method [1 (Initial Baseline)] Oxygen Delivery Method [2] Oxygen Delivery Method [3] Oxygen Delivery Method [4] Oxygen Delivery Method [5] Oxygen Delivery Method [6] 08/23/22 15:00 08/23/22 15:15 08/23/22 16:07 Temperature 98.2 F Temperature Source Temporal Pulse Rate 98 Pulse Rate [1 (Initial Baseline)] Pulse Rate [2] Pulse Rate [3] Pulse Rate [4] Pulse Rate [5] Pulse Rate [6] Respiratory Rate 18 Respiratory Rate [1 (Initial Baseline)] Respiratory Rate [2] Respiratory Rate [3] Respiratory Rate [4] Respiratory Rate [5] Respiratory Rate [6] Blood Pressure 111/75 Blood Pressure [1 (Initial Baseline)] Blood Pressure [2] Blood Pressure [3] Blood Pressure [4] Blood Pressure [5] Blood Pressure [6] Blood Pressure Mean 87 Blood Pressure Source Blood Pressure Position Blood Pressure Location Pulse Ox 100 Oxygen Delivery Method Room Air Room Air Room Air Oxygen Delivery Method [1 (Initial Baseline)] Oxygen Delivery Method [2] Oxygen Delivery Method [3] Oxygen Delivery Method [4] Oxygen Delivery Method [5] Oxygen Delivery Method [6] 08/23/22 16:11 08/23/22 14:45 08/23/22 15:00 Temperature 98.2 F Temperature Source Temporal Pulse Rate 98 99 98 Pulse Rate [1 (Initial Baseline)] Pulse Rate [2] Pulse Rate [3] Pulse Rate [4] Pulse Rate [5] Pulse Rate [6] Respiratory Rate 18 16 17 Respiratory Rate [1 (Initial Baseline)] Respiratory Rate [2] Respiratory Rate [3] Respiratory Rate [4] Respiratory Rate [5] Respiratory Rate [6] Blood Pressure 111/75 100/63 104/75 Blood Pressure [1 (Initial Baseline)] Blood Pressure [2] Blood Pressure [3] Blood Pressure [4] Blood Pressure [5] Blood Pressure [6] Blood Pressure Mean 87 75 84 Blood Pressure Source Monitor Monitor Blood Pressure Position Left Lateral Left Lateral Blood Pressure Location Right Arm Right Arm Pulse Ox 100 100 100 Oxygen Delivery Method Room Air Room Air Room Air Oxygen Delivery Method [1 (Initial Baseline)] Oxygen Delivery Method [2] Oxygen Delivery Method [3] Oxygen Delivery Method [4] Oxygen Delivery Method [5] Oxygen Delivery Method [6] 08/23/22 15:15 08/23/22 15:30 08/23/22 15:45 Temperature Temperature Source Pulse Rate 93 94 97 Pulse Rate [1 (Initial Baseline)] Pulse Rate [2] Pulse Rate [3] Pulse Rate [4] Pulse Rate [5] Pulse Rate [6] Respiratory Rate 15 15 20 H Respiratory Rate [1 (Initial Baseline)] Respiratory Rate [2] Respiratory Rate [3] Respiratory Rate [4] Respiratory Rate [5] Respiratory Rate [6] Blood Pressure 101/63 98/65 96/63 Blood Pressure [1 (Initial Baseline)] Blood Pressure [2] Blood Pressure [3] Blood Pressure [4] Blood Pressure [5] Blood Pressure [6] Blood Pressure Mean 75 76 74 Blood Pressure Source Monitor Monitor Monitor Blood Pressure Position Left Lateral Left Lateral Left Lateral Blood Pressure Location Right Arm Right Arm Right Arm Pulse Ox 100 100 100 Oxygen Delivery Method Room Air Room Air Room Air Oxygen Delivery Method [1 (Initial Baseline)] Oxygen Delivery Method [2] Oxygen Delivery Method [3] Oxygen Delivery Method [4] Oxygen Delivery Method [5] Oxygen Delivery Method [6] [facility] <CLEVE Dawson - Last Filed: 08/23/22 21:59> [facility] Narrative Medical decision making narrative: Patient has an elevated WBC. CT of the abdomen and pelvis suggests postoperative abscess. Radiology will be placing a drain and she will be admitted for IV antibiotics. She has been started on IV Zosyn here. I have personally performed a face to face assessment of the patient and have reviewed the BING Note. I performed a substantive portion of the visit including all aspects of the following. My jose findings include: History is [32-year-old female status post laparoscopic hysterectomy about 2 weeks ago. Sent in for postoperative pain rule out possible pelvic abscess. Evaluate the patient with our physician metallurgical laboratory assistant.] Exam is [well-appearing 32-year-old female. Vital signs stable afebrile. She does not septic nor toxic.. H EENT exam unremarkable. Lungs clear to auscultation. Heart regular rhythm no murmur. Abdomen soft nondistended. Normal bowel sounds no peritoneal signs. Well-healed laparoscopic incisions. Mild pelvic tenderness. Nondistended. No peritoneal signs. Moving all 4 extremities. Nontender no edema. Neurologically she is awake and alert with no focal motor deficits.] Medical Decision Making [32-year-old status post hysterectomy with postoperative abscess. She has an elevated white count of 21,000. Electrolytes unremarkable with normal kidney function. Normal gap. Radiology is going to place drains. She will be admitted for IV antibiotics. She has been ordered for IV Zosyn. There also be abscess cultures obtained by radiology.] Other additions or changes: [None] Lab Data Attestation: I reviewed the patient's lab results. Lab results narrative: WBC 21.1. BMP unremarkable. Labs: Laboratory Results - last 24 hr 08/23/22 08/23/22 08/23/22 12:05 12:05 12:50 WBC 21.1 H RBC 4.58 Hgb 12.4 Hct 38.2 MCV 83.4 MCH 27.1 MCHC 32.5 RDW Std Deviation 39.3 RDW Coeff of Eulogio 12.9 Plt Count 363 MPV 9.2 Immature Gran % (Auto) 0.400 Neut % (Auto) 85.4 H Lymph % (Auto) 7.9 L [place] % (Auto) 5.7 Eos % (Auto) 0.4 Baso % (Auto) 0.2 Absolute Neuts (auto) 18.0 H Absolute Lymphs (auto) 1.66 Nucleated RBC % 0 Sodium 137 Potassium 3.8 Chloride 105 Carbon Dioxide 26.0 Anion Gap 6 BUN 9 Creatinine 0.67 Estim Creat Clear Calc 85.78 Est GFR (MDRD) Af Amer 129 Est GFR (MDRD) Non-Af 107 BUN/Creatinine Ratio 13.4 Glucose 96 Calcium 9.4 Urine Color Yellow Urine Clarity Clear Urine pH 6.5 Ur Specific [place] 1.005 Urine Protein 30 H Urine Glucose (UA) Normal Urine Ketones 5 H Urine Occult Blood 50 H Urine Nitrite Negative Urine Bilirubin Negative Urine Urobilinogen Normal Ur Leukocyte Esterase 25 H Urine RBC 0-5 SEEN Urine WBC 0-5 SEEN Ur Squamous Epith Cells 0-5 SEEN Urine Bacteria 1+ Urine Mucus 0 SEEN Radiography Diagnostic Testing: Clinical Impression(s) from Imaging Studies Abdomen/Pelvis CT 08/23/22 11:59 IMPRESSION: Status post hysterectomy. Findings suggestive of a 4.8 cm by 6.1 cm by 5 cm complex cystic structure with septations in the cul-de-sac extending to the right adnexal region suggestive of postoperative abscess. Electronically Signed: Sixto Monge MD at 12:43 EST , Biopsy CT 08/23/22 13:09 IMPRESSION: 1. CT directed drainage of a fluid collection using CT image guidance and image documentation as described. 2. Conscious Sedation protocol utilized with independent monitoring Electronically Signed: Sixto Monge MD at 15:15 EST , CT has also been reviewed by attending ED physician. <Dr. Bc Weinstein MD - Last Filed: 08/23/22 13:24> [facility] MDM Narrative Medical decision making narrative: Patient has an elevated WBC. CT of the abdomen and pelvis suggests postoperative abscess. I have personally performed a face to face assessment of the patient and have reviewed the BING Note. I performed a substantive portion of the visit including all aspects of the following. My jose findings include: History is [32-year-old female status post laparoscopic hysterectomy about 2 weeks ago. Sent in for postoperative pain rule out possible pelvic abscess. Evaluate the patient with our physician metallurgical laboratory assistant.] Exam is [well-appearing 32-year-old female. Vital signs stable afebrile. She does not septic nor toxic.. H EENT exam unremarkable. Lungs clear to auscultation. Heart regular rhythm no murmur. Abdomen soft nondistended. Normal bowel sounds no peritoneal signs. Well-healed laparoscopic incisions. Mild pelvic tenderness. Nondistended. No peritoneal signs. Moving all 4 extremities. Nontender no edema. Neurologically she is awake and alert with no focal motor deficits.] Medical Decision Making [32-year-old status post hysterectomy with postoperative abscess. She has an elevated white count of 21,000. Electrolytes unremarkable with normal kidney function. Normal gap. Radiology is going to place drains. She will be admitted for IV antibiotics. She has been ordered for IV Zosyn. There also be abscess cultures obtained by radiology.] Other additions or changes: [None] Lab Data Labs: Laboratory Results - last 24 hr 08/23/22 08/23/22 08/23/22 12:05 12:05 12:50 WBC 21.1 H RBC 4.58 Hgb 12.4 Hct 38.2 MCV 83.4 MCH 27.1 MCHC 32.5 RDW Std Deviation 39.3 RDW Coeff of Eulogio 12.9 Plt Count 363 MPV 9.2 Immature Gran % (Auto) 0.400 Neut % (Auto) 85.4 H Lymph % (Auto) 7.9 L [place] % (Auto) 5.7 Eos % (Auto) 0.4 Baso % (Auto) 0.2 Absolute Neuts (auto) 18.0 H Absolute Lymphs (auto) 1.66 Nucleated RBC % 0 Sodium 137 Potassium 3.8 Chloride 105 Carbon Dioxide 26.0 Anion Gap 6 BUN 9 Creatinine 0.67 Estim Creat Clear Calc 85.78 Est GFR (MDRD) Af Amer 129 Est GFR (MDRD) Non-Af 107 BUN/Creatinine Ratio 13.4 Glucose 96 Calcium 9.4 Urine Color Yellow Urine Clarity Clear Urine pH 6.5 Ur Specific [place] 1.005 Urine Protein 30 H Urine Glucose (UA) Normal Urine Ketones 5 H Urine Occult Blood 50 H Urine Nitrite Negative Urine Bilirubin Negative Urine Urobilinogen Normal Ur Leukocyte Esterase 25 H Urine RBC 0-5 SEEN Urine WBC 0-5 SEEN Ur Squamous Epith Cells 0-5 SEEN Urine Bacteria 1+ Urine Mucus 0 SEEN Radiography Diagnostic Testing: Clinical Impression(s) from Imaging Studies Abdomen/Pelvis CT 08/23/22 11:59 IMPRESSION: Status post hysterectomy. Findings suggestive of a 4.8 cm by 6.1 cm by 5 cm complex cystic structure with septations in the cul-de-sac extending to the right adnexal region suggestive of postoperative abscess. Electronically Signed: Sixto Monge MD at 12:43 EST , Biopsy CT 08/23/22 13:09 IMPRESSION: 1. CT directed drainage of a fluid collection using CT image guidance and image documentation as described. 2. Conscious Sedation protocol utilized with independent monitoring Electronically Signed: Sixto Monge MD at 15:15 EST , Discharge Plan Dx/Rx/DC Orders Clinical Impression: Postoperative abscess, History of hysterectomy Disposition Disposition: Acute Care Hospital [facility] Discharge Date/Time: 08/23/22 17:39
--- NOTE | 2022-08-23 13:09 | CT_ITS ---
PROCEDURE: CT DIRECTED ABSCESS DRAINAGE, PERITONEAL DATE OF EXAMINATION: 08/23/2022. INDICATION: Female, 32 years old. Pelvic abscess following recent hysterectomy. PHYSICIAN: Sixto Monge M.D. CONSENT: Written informed consent was obtained having explained the risks, benefits and alternatives in detail with the patient who accepted the risks and agreed to proceed. Laboratory review and clinical assessment was performed. CONSCIOUS SEDATION PROTOCOL: The Drugs used were: 2 mg Versed, IV., and 75 mcg Fentanyl, IV. The sedation time was: 24 minutes. Conscious sedation was started at 1:41 PM and terminated at 2:05 PM. The conscious sedation protocol was independently monitored. RADIATION DOSAGE (If Supplied By Facility): CTDIvol = ( 22 ) mGy, DLP = ( 784.37 ) mGycm TECHNIQUE: CT sections were made through the abdomen and pelvis revealing an abscess in the pelvis. The skin surface was prepped and draped in a sterile fashion. Puncture of this collection was performed initially with a 5 Spanish catheter and fluid was aspirated. A 8 Spanish Drainage catheter was then inserted into the collection and formed into position. Additional fluid was aspirated for a total of approximately 45 cc of cloudy red fluid. The catheter was sutured into position to allow for continued drainage. Followup CT sections reveals good position of the catheter. CT/Biopsy/Inj or Needle Placement IMPRESSION: 1. CT directed drainage of a fluid collection using CT image guidance and image documentation as described. 2. Conscious Sedation protocol utilized with independent monitoring Electronically Signed: Sixto Monge MD at 15:15 EST ,
[2022-08-23 13:37] LABS: Color, Urine Yellow (Yellow); Glucose, Dipstick Normal (Normal); Ketone-Dipstick 5 mg/dl (Negative); Leukocyte Esterase-Dipstick 25 /ul (Negative); Nitrite-Dipstick Negative (Negative); Occult Blood-Urine 50 /ul (Negative); Protein-Dipstick 30 mg/dl (Negative); Specific Gravity, Urine 1.005 (1.002-1.030); Urine Bilirubin Dipstick Negative (Negative); Urine Clarity Clear (Clear); Urine Urobilinogen Normal (Normal); Urine pH 6.5 (5.0 - 8.0)
[2022-08-23] MEDS: Midazolam 2 MG/2 ML Syringe IV (13:41)
[2022-08-23] MEDS: fentaNYL 100 MCG/2 ML Ampul IV ×2 (13:44→13:55)
[2022-08-23 13:45] LABS: Bacteria 1+ /hpf (None Seen); Red Blood Cells-Urine 0-5 SEEN /hpf (0-5); Squamous Epithelial Cells - UA 0-5 SEEN /hpf (5-10); White Blood Cells 0-5 SEEN /hpf (0-5)
[2022-08-23] MEDS: Lidocaine 1% (20 ml mdv) 20 ML Vial INFILT (13:47)
--- NOTE | 2022-08-23 16:13 | HP.PCM.OB_ITS ---
HPI - General General Date of Admission: 08/23/22 HPI Narrative SCHUYLER DUKE, is a 32 F who presents to [facility] ER with an elevated white count from office today and the complaint of rectal pressure. She is status post an uncomplicated hysterectomy 2 weeks ago. She denies fevers or chills. Dr. Monge in radiology found a 6 cm pelvic abscess and was able to perform a CT guided drain. She reportedly had 45 cc of fluid drained from the site and is currently in the holding position in radiology until a bed opens up on med sug. [facility] Medical History Abnormal mammogram of left breast Anxiety and depression Breast mass, left COVID-19 Frequent headaches Heartburn Mass of head Wears contact lenses Wears glasses Home Medications ibuprofen 800 mg tablet 800 mg PO Q8H PRN pain 7 days #30 tabs 08/10/22 [Rx Last Taken 08/23/22] acetaminophen 500 mg tablet 1,000 mg PO Q6H PRN Pain 08/23/22 [History Last Taken 08/23/22] valacyclovir 500 mg tablet 500 mg PO BID PRN Cold Sores 08/23/22 [History Last Taken 08/22/22] Allergy/AdvReac Type Severity Reaction Status Date / Time hydromorphone [From Dilaudid] AdvReac Other Verified 08/23/22 11:52 oxycodone [From Percocet] AdvReac Nausea Verified 08/23/22 11:52 Family History Father Diabetes Hypertension Mother Hypertension Surgical History History of section History of dilation and curettage lumpectomy back of head Status post hysterectomy Social History Smoking Status: Never smoker alcohol intake: current alcohol intake frequency: holidays/special occasions only details: pre- substance use type: does not use caffeine: Yes what type of physical activity do you participate in: walking and other details: cardio frequency: 5-6 times per week seatbelt use: always do you feel safe at home: Yes additional social history: Gallo Patient works at [employer] History 2 Elective abortions 1 Hx Para 0 Spontaneous abortions Hx # Term Pregnancies Ectopic pregnancies Hx # Pregnancies Multiple births # of living children 1 Past Pregnancies Del. Date Name GA/Weeks Outcome Route Bth Weight Gen Labor Lgth Anes thesia Del Kodiatn Provider FOB 01/18/19 Janis 40 live - full term 8lbs 1oz Female epidural [facility] Delivery Date: 01/18/19 Last Updated by: Simin Marin decel ROS Constitutional Constitutional: Reports systems reviewed and no addt'l complaints, except as documented Gastrointestinal Gastrointestinal: Denies bloating, constipation, cramping, diarrhea, nausea or vomiting Genitourinary Genitourinary: Reports other Details: Denies vaginal odor, vaginal bleeding, or vaginal discharge ; Denies difficulty urinating or flank pain Vital Signs Vital Signs Vital Signs: 08/23/22 11:49 08/23/22 13:30 08/23/22 13:48 Temperature 97.3 F L 99.0 F Temperature Source Temporal Pulse Rate 109 H 107 H Pulse Rate [1 (Initial Baseline)] 98 Pulse Rate [2] 97 Pulse Rate [3] 92 Pulse Rate [4] 101 H Pulse Rate [5] 98 Pulse Rate [6] 97 Respiratory Rate 16 14 Respiratory Rate [1 (Initial Baseline)] 19 H Respiratory Rate [2] 18 Respiratory Rate [3] 15 Respiratory Rate [4] 14 Respiratory Rate [5] 16 Respiratory Rate [6] 13 Blood Pressure 110/77 122/80 H Blood Pressure [1 (Initial Baseline)] 114/77 Blood Pressure [2] 109/78 Blood Pressure [3] 110/73 Blood Pressure [4] 114/76 Blood Pressure [5] 117/80 Blood Pressure [6] 112/72 Blood Pressure Mean 88 Blood Pressure Source Blood Pressure Position Blood Pressure Location Pulse Ox 100 100 Oxygen Delivery Method Room Air Room Air Oxygen Delivery Method [1 (Initial Baseline)] Room Air Oxygen Delivery Method [2] Room Air Oxygen Delivery Method [3] Room Air Oxygen Delivery Method [4] Room Air Oxygen Delivery Method [5] Room Air Oxygen Delivery Method [6] Room Air 08/23/22 14:10 08/23/22 14:15 08/23/22 14:20 Temperature Temperature Source Pulse Rate 94 94 97 Pulse Rate [1 (Initial Baseline)] Pulse Rate [2] Pulse Rate [3] Pulse Rate [4] Pulse Rate [5] Pulse Rate [6] Respiratory Rate 19 H 19 H 13 Respiratory Rate [1 (Initial Baseline)] Respiratory Rate [2] Respiratory Rate [3] Respiratory Rate [4] Respiratory Rate [5] Respiratory Rate [6] Blood Pressure 108/77 109/73 116/72 Blood Pressure [1 (Initial Baseline)] Blood Pressure [2] Blood Pressure [3] Blood Pressure [4] Blood Pressure [5] Blood Pressure [6] Blood Pressure Mean 87 85 86 Blood Pressure Source Monitor Monitor Monitor Blood Pressure Position Prone Left Lateral Left Lateral Blood Pressure Location Right Arm Right Arm Right Arm Pulse Ox 94 100 98 Oxygen Delivery Method Room Air Room Air Room Air Oxygen Delivery Method [1 (Initial Baseline)] Oxygen Delivery Method [2] Oxygen Delivery Method [3] Oxygen Delivery Method [4] Oxygen Delivery Method [5] Oxygen Delivery Method [6] 08/23/22 14:25 08/23/22 14:30 08/23/22 14:45 Temperature Temperature Source Pulse Rate 92 92 Pulse Rate [1 (Initial Baseline)] Pulse Rate [2] Pulse Rate [3] Pulse Rate [4] Pulse Rate [5] Pulse Rate [6] Respiratory Rate 20 H 20 H Respiratory Rate [1 (Initial Baseline)] Respiratory Rate [2] Respiratory Rate [3] Respiratory Rate [4] Respiratory Rate [5] Respiratory Rate [6] Blood Pressure 107/72 109/71 Blood Pressure [1 (Initial Baseline)] Blood Pressure [2] Blood Pressure [3] Blood Pressure [4] Blood Pressure [5] Blood Pressure [6] Blood Pressure Mean 83 83 Blood Pressure Source Monitor Monitor Blood Pressure Position Left Lateral Left Lateral Blood Pressure Location Right Arm Right Leg Pulse Ox 99 98 Oxygen Delivery Method Room Air Room Air Room Air Oxygen Delivery Method [1 (Initial Baseline)] Oxygen Delivery Method [2] Oxygen Delivery Method [3] Oxygen Delivery Method [4] Oxygen Delivery Method [5] Oxygen Delivery Method [6] 08/23/22 15:00 08/23/22 15:15 08/23/22 16:07 Temperature 98.2 F Temperature Source Temporal Pulse Rate 98 Pulse Rate [1 (Initial Baseline)] Pulse Rate [2] Pulse Rate [3] Pulse Rate [4] Pulse Rate [5] Pulse Rate [6] Respiratory Rate 18 Respiratory Rate [1 (Initial Baseline)] Respiratory Rate [2] Respiratory Rate [3] Respiratory Rate [4] Respiratory Rate [5] Respiratory Rate [6] Blood Pressure 111/75 Blood Pressure [1 (Initial Baseline)] Blood Pressure [2] Blood Pressure [3] Blood Pressure [4] Blood Pressure [5] Blood Pressure [6] Blood Pressure Mean 87 Blood Pressure Source Blood Pressure Position Blood Pressure Location Pulse Ox 100 Oxygen Delivery Method Room Air Room Air Room Air Oxygen Delivery Method [1 (Initial Baseline)] Oxygen Delivery Method [2] Oxygen Delivery Method [3] Oxygen Delivery Method [4] Oxygen Delivery Method [5] Oxygen Delivery Method [6] 08/23/22 16:11 Temperature 98.2 F Temperature Source Temporal Pulse Rate 98 Pulse Rate [1 (Initial Baseline)] Pulse Rate [2] Pulse Rate [3] Pulse Rate [4] Pulse Rate [5] Pulse Rate [6] Respiratory Rate 18 Respiratory Rate [1 (Initial Baseline)] Respiratory Rate [2] Respiratory Rate [3] Respiratory Rate [4] Respiratory Rate [5] Respiratory Rate [6] Blood Pressure 111/75 Blood Pressure [1 (Initial Baseline)] Blood Pressure [2] Blood Pressure [3] Blood Pressure [4] Blood Pressure [5] Blood Pressure [6] Blood Pressure Mean 87 Blood Pressure Source Blood Pressure Position Blood Pressure Location Pulse Ox 100 Oxygen Delivery Method Room Air Oxygen Delivery Method [1 (Initial Baseline)] Oxygen Delivery Method [2] Oxygen Delivery Method [3] Oxygen Delivery Method [4] Oxygen Delivery Method [5] Oxygen Delivery Method [6] Weight Weight: 130 lb Body Mass Index (BMI) 25.4 Physical Exam Const alert, oriented x3 and no apparent distress General Appearance: cooperative and comfortable Resp normal respiratory effort Cardio regular rate GI normal to inspection, nondistended, normoactive bowel sounds Palpation: soft Rectal Exam: other Other Details: non-tender. Incision is clean, dry, and intact. Labs Labs Labs: Blood Type A POSITIVE Antibody Screen NEGATIVE Hct 38.2 % (37-47) Hgb 12.4 g/dL (12.0-15.0) Obstetrics US Rubella IgG Antibody 100.2 IU/mL Hep Bs Antigen Negative (Negative) Chlamydia DNA (VON) Negative (Negative) Neisseria gonorrhoeae DNA (VON) Negative (Negative) HIV 1&2 Antibody Non-Reactive (Nonreactive) Glucose 1 Hr 50 gm 141 mg/dL (70-140) H Rhogam given: No Miscellaneous Test Assessment & Plan (1) Postoperative abscess: (2) History of hysterectomy: (3) Elevated white blood cell count: (4) Postoperative pain: PLAN: Plan plan to admit to [facility] for at least 48 hours, follow white counts and vitals pain medication as needed and heating pad for support regular diet vitals q 4 hrs IV fluids tonight and will reassess in the am rtp cbc tomorrow
[2022-08-23] MEDS: Lactated Ringers 1,000 ML 125 ML IV (16:49)
[2022-08-23] MEDS: Acetaminophen 500 MG Tablet 1000 MG PO (19:04)
[2022-08-23] MEDS: 0.9% Normal Saline 1,000 ML 125 ML IV (22:33)
[2022-08-24] MEDS: oxyCODONE 5 MG Tablet PO (01:49)
[2022-08-24 05:35] VITALS: BP 104/64; PULSE 76; RESP 16; TEMP 36.8; O2SAT 99
[2022-08-24] MEDS: Naproxen 250 MG Tablet 500 MG PO ×2 (05:45→22:55)
[2022-08-24] MEDS: 0.9% Normal Saline 1,000 ML 125 ML IV ×3 (06:18→21:32)
[2022-08-24 06:50] LABS: Absolute Lymphocyte Count 2.09 X10^3/uL (0.83-4.51); Absolute Neutrophil Count 8.1 X10^3/uL (2.0-7.7); Basophil# 0.02 X10^3/uL; Basophil% 0.2 % (0-1); Eosinophil# 0.11 X10^3/uL; Hematocrit 35.5 % (37-47); Hemoglobin 11.2 g/dL (12.0-15.0); Lymphocyte # 2.09 X10^3/ul (0.83-4.51); Lymphocyte % 18.8 % (19-41); Mean Corp Hgb Conc 31.5 g/dL (32-36); Mean Corpuscular Hgb 26.5 pg (27.0-32.0); Mean Corpuscular Volume 83.9 fL (81-99); Mean Platelet Vol. 9.2 fl (6.2-12.0); Monocyte# 0.81 X10^3/uL; Monocyte% 7.3 % (0-10); NRBC Flagged by Analyzer 0 % (0-5); Neutrophil # 8.07 X10^3/uL (2.7-7.7); Neutrophil % 72.3 % (47-70); Platelet Count 313 K/mm3 (150-450); RBC Distribution Width SD 39.4 fl (35.1-43.9); Red Blood Count 4.23 M/mm3 (4.2-5.4); White Blood Count 11.1 K/mm3 (4.4-11.0)
[2022-08-24] MEDS: Ondansetron 4 MG/2 ML Vial IV ×3 (06:53→21:33)
[2022-08-24 09:31] VITALS: O2SAT 98
[2022-08-24 09:42] VITALS: BP 96/58; PULSE 83; RESP 18; TEMP 36.2; O2SAT 99
--- NOTE | 2022-08-24 12:28 | PCM.PN.OB ---
Subjective Subjective Patient is laying in bed comfortably without complaints. She states that she slept on an off during the night. pain is minimal Objective Data Objective Data Vital Signs: Vital Signs Temp Pulse Resp BP Pulse Ox O2 Del Method 97.2 F L 83 18 96/58 L 99 Room Air 08/24/22 09:42 08/24/22 09:42 08/24/22 09:42 08/24/22 09:42 08/24/22 09:42 08/24/22 09:42 Oxygen Delivery Method [6] Room Air Oxygen Delivery Method [5] Room Air Oxygen Delivery Method [4] Room Air Oxygen Delivery Method [3] Room Air Oxygen Delivery Method [2] Room Air Oxygen Delivery Method [1 ( Room Air Initial Baseline)] Oxygen Delivery Method Room Air Weight: 130 lb 9.6 oz Body Mass Index (BMI) 25.4 Intake & Output: Intake and Output for Last 24 Hours 08/22/22 08/23/22 08/24/22 23:59 23:59 23:59 Intake Total 1066.92 / 1066.92 1108.33 / 1108.33 Output Total 4 / 4 Balance 1058.92 / 1058.92 1104.33 / 1104.33 Lab / Micro Data Result Diagrams: 08/24/22 06:45 08/23/22 12:05 Labs: Laboratory Results - last 24 hr 08/23/22 12:50: Urine Color Yellow, Urine Clarity Clear, Urine pH 6.5, Ur Specific [place] 1.005, Urine Protein 30 H, Urine Glucose (UA) Normal, Urine Ketones 5 H, Urine Occult Blood 50 H, Urine Nitrite Negative, Urine Bilirubin Negative, Urine Urobilinogen Normal, Ur Leukocyte Esterase 25 H, Urine RBC 0-5 SEEN, Urine WBC 0-5 SEEN, Ur Squamous Epith Cells 0-5 SEEN, Urine Bacteria 1+, Urine Mucus 0 SEEN 08/24/22 06:45: WBC 11.1 H, RBC 4.23, Hgb 11.2 L, Hct 35.5 L, MCV 83.9, MCH 26.5 L, MCHC 31.5 L, RDW Std Deviation 39.4, RDW Coeff of Eulogio 13.0, Plt Count 313, MPV 9.2, Immature Gran % (Auto) 0.400, Neut % (Auto) 72.3 H, Lymph % (Auto) 18.8 L, [place] % (Auto) 7.3, Eos % (Auto) 1.0, Baso % (Auto) 0.2, Absolute Neuts (auto) 8.1 H, Absolute Lymphs (auto) 2.09, Nucleated RBC % 0 Radiography Diagnostic Testing: Radiology Impression Abdomen/Pelvis CT 08/23/22 11:59 IMPRESSION: Status post hysterectomy. Findings suggestive of a 4.8 cm by 6.1 cm by 5 cm complex cystic structure with septations in the cul-de-sac extending to the right adnexal region suggestive of postoperative abscess. Electronically Signed: Sixto Monge MD at 12:43 EST , Biopsy CT 08/23/22 13:09 IMPRESSION: 1. CT directed drainage of a fluid collection using CT image guidance and image documentation as described. 2. Conscious Sedation protocol utilized with independent monitoring Electronically Signed: Sixto Monge MD at 15:15 EST , ROS Constitutional Constitutional: Reports systems reviewed and no addt'l complaints, except as documented Cardiovascular Cardiovascular: Denies chest pain, dizziness, dyspnea or irregular heart rhythm Respiratory/Chest Respiratory/Chest: Denies cough, pain on inspiration or shortness of breath at rest Gastrointestinal Gastrointestinal: Denies abdominal pain, nausea or vomiting Genitourinary Genitourinary: Denies burning urination Musculoskeletal Musculoskeletal: Denies muscle cramps, muscle spasms or muscle weakness Neurologic Neurologic: Denies confusion, dizziness, headache(s) or lack of coordination Psychiatric Psychiatric: Denies anxiety, behavioral changes or depression Physical Exam HEENT normocephalic Resp normal respiratory effort and normal air movement GI soft to palpation, non-tender and non-distended Rectal Exam: other Other Details: Incision is clean, dry, and intact no CVA tenderness Extremity normal to inspection Extremity Narrative: right buttock drain in place with minimal fluid that is slightly blood tinged General Extremity: edema bilateral (trace ) Assessment & Plan (1) Postoperative abscess: PLAN: status post CT guided drain WBC count is much lower today and she is afebrile plan to continue IV abx until drain output is less than 10 ccin 24 hrs. then will dc to home with PO abx.
--- NOTE | 2022-08-24 12:56 | CASEMGMT ---
OPAL ARANGO Assessment: Face to Face with pt for initial transition planning/care coordination assessment. RN CONCHITA introduced self and role at [facility], pt voices understanding and consents to assessment. Pt is A/O x4 and answers all questions appropriately at this time. Pt lying in bed in no distress. Care providers, pharmacy, and demographics verified/updated. Admitting Dx: pelvic abscess PCP:Negin Specialists: Cindy Calvin, [employer] Preferred Pharmacy: [facility] Insurance: [facility] [employer] Prescription Benefit: yes LNOK: Gallo Tadeoabdias, sig other; Dandre Quintanilla, mother Living Arrangements: Pt lives with sig other and dtr in a two story house with 3 steps to enter with a rail. Pt reports she is I in ADL's and denies concerns at home. Transportation: Pt drives self and denies concerns with transportation. DME/HHC/SNF: Pt denies having any DME in the home, previous HHC or SNF stays. Pt states no concerns with going home at time of dc. Pt states no further concerns/needs. CM to follow. Advised pt to ask CM if any further question/concerns/needs arise, voices understanding. Pt Goal: Home Plan: Home
[2022-08-24] MEDS: Acetaminophen 500 MG Tablet 1000 MG PO ×2 (13:15→21:35)
[2022-08-24] MEDS: 0.9% Saline Lock 10 ML Syringe IV (13:15)
[2022-08-24 15:00] VITALS: BP 107/74; PULSE 88; RESP 16; TEMP 36.6; O2SAT 99
[2022-08-24 21:44] VITALS: BP 115/85; PULSE 85; RESP 16; TEMP 36.4; O2SAT 100
[2022-08-25] VITALS (7 sets, daily range): BP systolic 102–116; BP diastolic 68–85; PULSE 78–89; RESP 16–18; TEMP 36.4–36.9; O2SAT 98–100
[2022-08-25] MEDS: Acetaminophen 500 MG Tablet 1000 MG PO ×3 (04:13→22:16)
[2022-08-25] MEDS: 0.9% Normal Saline 1,000 ML 125 ML IV ×3 (04:14→22:16)
[2022-08-25 07:21] LABS: Absolute Neutrophil Count 10.5 X10^3/uL (2.0-7.7); Basophil# 0.02 X10^3/uL; Basophil% 0.2 % (0-1); Eosinophil# 0.12 X10^3/uL; Eosinophils% 0.9 % (0-5); Hematocrit 33.3 % (37-47); Hemoglobin 10.1 g/dL (12.0-15.0); Lymphocyte % 10.1 % (19-41); Mean Corp Hgb Conc 30.3 g/dL (32-36); Mean Corpuscular Hgb 25.8 pg (27.0-32.0); Mean Corpuscular Volume 85.2 fL (81-99); Mean Platelet Vol. 9.7 fl (6.2-12.0); Monocyte# 0.88 X10^3/uL; Monocyte% 6.8 % (0-10); NRBC Flagged by Analyzer 0 % (0-5); Neutrophil % 81.5 % (47-70); Platelet Count 282 K/mm3 (150-450); Red Blood Count 3.91 M/mm3 (4.2-5.4); White Blood Count 12.9 K/mm3 (4.4-11.0)
[2022-08-25] MEDS: FLUCONAZOLE 150 MG TABLET PO (13:12)
--- NOTE | 2022-08-25 13:27 | PN.OBGYN_ITS ---
Subjective Subjective pt asking when the drain can be pulled and when she can be discharged to home. She denies fever or chills. She believes the catheter is starting to bother her. output over the last 24 hours was still high however and removal of drain not possible this early, as was explained to the patient. She also complains of s ome vaginal irritation and itching. Objective Data Objective Data Vital Signs: Vital Signs Temp Pulse Resp BP Pulse Ox O2 Del Method 97.8 F 89 16 102/68 98 Room Air 08/25/22 10:28 08/25/22 10:28 08/25/22 10:28 08/25/22 10:28 08/25/22 10:08/25/22 10:28 Oxygen Delivery Method [6] Room Air Oxygen Delivery Method [5] Room Air Oxygen Delivery Method [4] Room Air Oxygen Delivery Method [3] Room Air Oxygen Delivery Method [2] Room Air Oxygen Delivery Method [1 ( Room Air Initial Baseline)] Oxygen Delivery Method Room Air Weight: 130 lb 9.6 oz Body Mass Index (BMI) 25.4 Intake & Output: Intake and Output for Last 24 Hours 08/23/22 08/24/22 08/25/22 23:59 23:59 23:59 Intake Total 1066.92 / 1066.92 3047.91 / 3047.91 2621.92 / 2621.92 Output Total 5 / 5 Balance 1058.92 / 1058.92 3024.91 / 3024.91 2616.92 / 2616.92 Lab / Micro Data Result Diagrams: 08/25/22 06:55 08/23/22 12:05 Labs: Laboratory Results - last 24 hr 08/25/22 06:55: WBC 12.9 H, RBC 3.91 L, Hgb 10.1 L, Hct 33.3 L, MCV 85.2, MCH 25.8 L, MCHC 30.3 L, RDW Std Deviation 40.0, RDW Coeff of Eulogio 13.0, Plt Count 282, MPV 9.7, Immature Gran % (Auto) 0.500, Neut % (Auto) 81.5 H, Lymph % (Auto) 10.1 L, [place] % (Auto) 6.8, Eos % (Auto) 0.9, Baso % (Auto) 0.2, Absolute Neuts (auto) 10.5 H, Absolute Lymphs (auto) 1.30, Nucleated RBC % 0 Micro: Microbiology 08/23/22 13:13 Wound Drainage - Abdominal Gram Stain - Final 08/23/22 13:13 Wound Drainage - Abdominal Anaerobic Culture - Preliminary No growth in 48 hours. ROS Constitutional Constitutional: Reports systems reviewed and no addt'l complaints, except as documented and chills; Denies fever(s) Eyes Eyes: Denies blurry vision, change in vision or diplopia ENT HEENT: Denies rhinorrhea or sore throat Cardiovascular Cardiovascular: Reports palpitations; Denies chest pain, dizziness, dyspnea, irregular heart rhythm or racing heartbeat Respiratory/Chest Respiratory/Chest: Denies cough, dyspnea, dyspnea on exertion, pain on inspiration or shortness of breath at rest Gastrointestinal Gastrointestinal: Denies abdominal pain, bloating, constipation, cramping, diarrhea, nausea or vomiting Genitourinary Genitourinary: Reports other Details: Denies vaginal odor, vaginal bleeding, or vaginal discharge ; Denies burning urination, difficulty urinating, dysuria, flank pain, hematuria or urinary frequency Musculoskeletal Musculoskeletal: Denies back pain, muscle cramps, muscle spasms, muscle weakness or neck pain Integumentary Integumentary: Denies rash Neurologic Neurologic: Reports weakness; Denies confusion, dizziness, headache(s), lack of coordination or paresthesias Psychiatric Psychiatric: Denies anxiety, behavioral changes, depression or suicidal ideation Physical Exam Const alert, oriented x3 and no apparent distress General Appearance: cooperative and comfortable HEENT normocephalic Resp normal respiratory effort and normal air movement Cardio regular rate GI normal to inspection, nondistended, normoactive bowel sounds, soft to palpation, non-tender and non-distended Palpation: soft Rectal Exam: other Other Details: Incision is clean, dry, and intact no CVA tenderness External Female Exam: normal appearance of the urethra Speculum Exam - Vagina: other vaginal montgomery erythematous without edema or discharge. Extremity normal to inspection Extremity Narrative: right buttock drain in place with minimal fluid that is slightly blood tinged General Extremity: edema bilateral (trace ) Assessment & Plan (1) Postoperative abscess: PLAN: no growth after 48 hours, suspect seroma. White count up slightly from yesterday. will keep drain in and abx until final culture returns and output less than 10 cc/day. discussed with Dr. Guerrier and recommends against repeating CT ok for wheelchair ride outside for a few minutes. diflucan for possible yeast .
[2022-08-25] MEDS: Ibuprofen 600 MG Tablet PO (16:09)
[2022-08-26 01:40] VITALS: BP 115/74; PULSE 93; RESP 18; TEMP 36.8; O2SAT 98
--- NOTE | 2022-08-26 01:43 | EKG12_ITS ---
Test Reason : CP Blood Pressure : / mmHG Vent. Rate : 088 BPM Atrial Rate : 088 BPM P-R Int : 138 ms QRS Dur : 080 ms QT Int : 350 ms P-R-T Axes : 041 055 025 degrees QTc Int : 423 ms Normal sinus rhythm Normal ECG Confirmed by DEBI PISANO, ADAM ([id number]), material expeditor MIKALA MARTINES ([id number]) on 08/27/2022 7:42:55 AM Referred By: Cindy Vivas Confirmed By:ADAM CARRERA MD
[2022-08-26] MEDS: Ondansetron 4 MG/2 ML Vial IV ×2 (02:12→08:23)
[2022-08-26] MEDS: Morphine 2 MG/ML Syringe IV ×2 (02:27→08:22)
[2022-08-26] MEDS: Famotidine 20 MG Tablet PO (02:33)
[2022-08-26 03:30] LABS: Absolute Lymphocyte Count 1.76 X10^3/uL (0.83-4.51); Absolute Neutrophil Count 9.6 X10^3/uL (2.0-7.7); Basophil# 0.02 X10^3/uL; Basophil% 0.2 % (0-1); Eosinophil# 0.14 X10^3/uL; Eosinophils% 1.1 % (0-5); Hematocrit 29.3 % (37-47); Hemoglobin 9.3 g/dL (12.0-15.0); Lymphocyte # 1.76 X10^3/ul (0.83-4.51); Lymphocyte % 14.1 % (19-41); Mean Corp Hgb Conc 31.7 g/dL (32-36); Mean Corpuscular Hgb 26.8 pg (27.0-32.0); Mean Corpuscular Volume 84.4 fL (81-99); Mean Platelet Vol. 9.5 fl (6.2-12.0); Monocyte# 0.89 X10^3/uL; Monocyte% 7.1 % (0-10); NRBC Flagged by Analyzer 0 % (0-5); Neutrophil # 9.62 X10^3/uL (2.7-7.7); Neutrophil % 77.1 % (47-70); Platelet Count 297 K/mm3 (150-450); Red Blood Count 3.47 M/mm3 (4.2-5.4); White Blood Count 12.5 K/mm3 (4.4-11.0)
[2022-08-26 03:57] LABS: ALB/GLOB Ratio 0.7 RATIO (0.9-2.4); AST(SGOT) 15 U/L (15-37); Alanine Aminotransfer ALT/SGPT 24 U/L (13-56); Albumin, Serum 2.4 g/dL (3.2-5.0); Alkaline Phosphatase 69 U/L (45-117); Anion Gap 6 (5-15); BUN 5 mg/dL (7-18); BUN/Creat Ratio 8.8 RATIO (10-20); Calcium,Total 8.4 mg/dL (8.5-10.1); Chloride 111 mmol/L (98-107); Creatinine, Serum 0.56 mg/dL (0.55-1.02); EST Glomerular Filtration Rate 131 mL/min (>60); Est Glom Filt Rate - Afr Amer 159 mL/min (>60); Estimated Creatinine Clearance 102.63 ml/min; Globulin 3.4 g/dL (2.2-4.2); Glucose 104 mg/dL (74-106); Potassium 3.3 mmol/L (3.5-5.1); Protein, Total 5.8 g/dL (6.4-8.2); Sodium Level 143 mmol/L (136-145)
[2022-08-26] MEDS: 0.9% Normal Saline 1,000 ML 125 ML IV (06:12)
[2022-08-26 07:52] VITALS: O2SAT 97
[2022-08-26 08:00] VITALS: BP 110/65; PULSE 98; RESP 18; TEMP 36.3; O2SAT 99
[2022-08-26] MEDS: Potassium Chloride 20mEq/100mL 20 MEQ/100 ML IV.SOLN. 50 MEQ IV BOLUS (08:22)
[2022-08-26] MEDS: 0.9% Saline Lock 10 ML Syringe IV (08:23)
--- NOTE | 2022-08-26 09:21 | PN.OBGYN_ITS ---
Subjective Subjective pt states that she thinks she had a panic attack last night because of being nervous about the drain being removed today. She was dry heaving a lot and started having vaginal bleeding. She does not complain of pain and drain put out less than 10 cc in 24 hours. Her potassium was found to be mildly low yesterday but middle of the night EKG was normal. I explained her lab results to her and she verbally gave consent for the drain to be removed. Objective Data Objective Data Vital Signs: Vital Signs Temp Pulse Resp BP Pulse Ox O2 Del Method 98.3 F 93 18 115/74 97 Room Air 08/26/22 01:40 08/26/22 01:40 08/26/22 01:40 08/26/22 01:40 08/26/22 07:52 08/26/22 07:52 Oxygen Delivery Method [6] Room Air Oxygen Delivery Method [5] Room Air Oxygen Delivery Method [4] Room Air Oxygen Delivery Method [3] Room Air Oxygen Delivery Method [2] Room Air Oxygen Delivery Method [1 ( Room Air Initial Baseline)] Oxygen Delivery Method Room Air Weight: 130 lb 9.6 oz Body Mass Index (BMI) 25.4 Intake & Output: Intake and Output for Last 24 Hours 08/24/22 08/25/22 08/26/22 23:59 23:59 23:59 Intake Total 3047.91 / 3047.91 4071.92 / 4071.92 1068.96 / 1068.96 Output Total 5 10 / Balance 3024.91 / 3024.91 4066.92 / 4066.92 1058.96 / 1058.96 Lab / Micro Data Result Diagrams: 08/26/22 03:10 08/26/22 03:10 Labs: Laboratory Results - last 24 hr 08/26/22 03:10: WBC 12.5 H, RBC 3.47 L, Hgb 9.3 L, Hct 29.3 L, MCV 84.4, MCH 26.8 L, MCHC 31.7 L, RDW Std Deviation 40.0, RDW Coeff of Eulogio 13.0, Plt Count 297, MPV 9.5, Immature Gran % (Auto) 0.400, Neut % (Auto) 77.1 H, Lymph % (Auto) 14.1 L, [place] % (Auto) 7.1, Eos % (Auto) 1.1, Baso % (Auto) 0.2, Absolute Neuts (auto) 9.6 H, Absolute Lymphs (auto) 1.76, Nucleated RBC % 0 08/26/22 03:10: Sodium 143, Potassium 3.3 L, Chloride 111 H, Carbon Dioxide 26.0, Anion Gap 6, BUN 5 L, Creatinine 0.56, Estim Creat Clear Calc 102.63, Est GFR (MDRD) Af Amer 159, Est GFR (MDRD) Non-Af 131, BUN/Creatinine Ratio 8.8 L, Glucose 104, Calcium 8.4 L, Total Bilirubin 0.40, AST 15, ALT 24, Alkaline Phosphatase 69, Total Protein 5.8 L, Albumin 2.4 L, Globulin 3.4, Albumin/Globulin Ratio 0.7 L Micro: Microbiology 08/23/22 13:13 Wound Drainage - Abdominal Gram Stain - Final 08/23/22 13:13 Wound Drainage - Abdominal Wound Culture - Final No growth aerobically. 08/23/22 13:13 Wound Drainage - Abdominal Anaerobic Culture - Preliminary No growth in 48 hours. ROS Constitutional Constitutional: Reports systems reviewed and no addt'l complaints, except as documented and chills; Denies fever(s) Eyes Eyes: Denies blurry vision, change in vision or diplopia ENT HEENT: Denies rhinorrhea or sore throat Cardiovascular Cardiovascular: Reports palpitations; Denies chest pain, dizziness, dyspnea, irregular heart rhythm or racing heartbeat Respiratory/Chest Respiratory/Chest: Denies cough, dyspnea, dyspnea on exertion, pain on inspiration or shortness of breath at rest Gastrointestinal Gastrointestinal: Denies abdominal pain, bloating, constipation, cramping, diarrhea, nausea or vomiting Genitourinary Genitourinary: Reports other Details: Denies vaginal odor, vaginal bleeding, or vaginal discharge ; Denies burning urination, difficulty urinating, dysuria, flank pain, hematuria or urinary frequency Musculoskeletal Musculoskeletal: Denies back pain, muscle cramps, muscle spasms, muscle weakness or neck pain Integumentary Integumentary: Denies rash Neurologic Neurologic: Reports weakness; Denies confusion, dizziness, headache(s), lack of coordination or paresthesias Psychiatric Psychiatric: Denies anxiety, behavioral changes, depression or suicidal ideation Physical Exam Const alert, oriented x3 and no apparent distress General Appearance: cooperative and comfortable HEENT normocephalic Resp normal respiratory effort and normal air movement Cardio regular rate GI normal to inspection, nondistended, normoactive bowel sounds, soft to palpation, non-tender and non-distended Palpation: soft Rectal Exam: other Other Details: Incision is clean, dry, and intact no CVA tenderness External Female Exam: normal appearance of the urethra Speculum Exam - Vagina: other vaginal montgomery erythematous without edema or discharge. Recto-Vaginal: cul-de-sac fullness and other Spec exam showed some old blood in the vault. Sutures in place. No bright red bleeding. On bimanual exam, there is some mild fullness in the cul-de-sac and was somewhat tender with exam. The fullness is likely post surgical changes and suture and potential residual f luid. Extremity normal to inspection Extremity Narrative: right buttock drain in place with minimal fluid that is slightly blood tinged General Extremity: edema bilateral (trace ) Skin Skin Narrative: buttock drain cut with sterile scissors then pulled. The strings to the drain remained behind and the patient complained of pain when pulled. SHe was given 2 mg of morphine and was able to relax. The strings removed then without difficult y. scant Serosanguineous material was left in the drain and some drained from the skin. A band aid was then applied. Assessment & Plan (1) Postoperative abscess: PLAN: no growth after 72 hours, suspect seroma and not a pelvic abscess. This was discussed with the patient. White count down slightly from yesterday. drain pulled without difficulty. will continue bactrim for vaginal culture that returned Ecoli to prevent cuff cellulitis. s/p diflucan for possible yeast . potassium chloride replacement today start zoloft and buspar for anxiety dc to home today.
--- NOTE | 2022-08-26 09:30 | DS.PCM_ITS ---
Providers Date of Admission: 08/23/22 Primary Care Physician: Dr. Naheed Kam DO Reason For Visit: PELVIC ABSCESS Diagnosis Discharge Diagnosis (1) Postoperative abscess: Status: Acute Code(s): T81.49XA - Infection following a procedure, other surgical site, initial encounter Plan: no growth after 72 hours, suspect seroma and not a pelvic abscess. This was discussed with the patient. White count down slightly from yesterday. drain pulled without difficulty. will continue bactrim for vaginal culture that returned Ecoli to prevent cuff cellulitis. s/p diflucan for possible yeast . potassium chloride replacement today start zoloft and buspar for anxiety dc to home today. Medications at Discharge Home Medications ibuprofen 800 mg tablet 800 mg PO Q8H PRN pain 7 days #30 tabs 08/10/ acetaminophen 500 mg tablet 1,000 mg PO Q6H PRN Pain 08/23/ valacyclovir 500 mg tablet 500 mg PO BID PRN Cold Sores 08/23/ buspirone 15 mg tablet 15 mg PO BID #60 tabs 08/26/ sertraline 50 mg tablet (Zoloft) 50 mg PO DAILY #30 tabs 08/26/22 sulfamethoxazole 800 mg-trimethoprim 160 mg tablet (Bactrim DS) 1 tab PO BID #14 tabs 08/26/22 Hospital Course Procedures - (CT guided drainage of pelvic fluid collection ) Summary of Care Provided Minutes Spent on Discharge: 25 Hospital Course: The patient was admitted on 08/23/22 for a 6 cm fluid collection in the pelvis causing pelvic pressure and increased white count. A CT guided drainage was performed by our radiologist and the patient was admitted on IV antibiotics. On hospital day #2 her white count drastically decreased and she remained afebrile but still in some pain. Her drain continued to put out serosanguineous material for the next 2 days. on HD #3 She was improving but still puting out material in the drain. The microbiology showed no growth of bacteria, however a vaginal culture returned positive for E. Coli. On the morning of HD #4 she had a panic attach and worked up for chest pain. She started having dry heaves and began bl eeding vaginally. On exam the cuff was noted to be intact and no active bleeding was noted. Her drain was pulled and the decision was made to dc her to home. Physical Exam Const alert, oriented x3, no apparent distress and healthy appearing General Appearance: cooperative; Negative for anxious Resp normal respiratory effort Effort and Inspection: able to speak in complete sentences GI soft to palpation and non-tender Palpation: soft; Negative for tender external exam normal Back/Spine no CVA tenderness Extremity normal to inspection, full ROM and no clubbing, cyanosis or edema General Extremity: Negative for calf tenderness or edema Skin Lesions: no lesions Rashes: no rashes Psych mental status grossly normal Weight / BMI Weight Weight: 130 lb 9.6 oz Body Mass Index (BMI) 25.4 ABG / Lab / Microbiology Data Result Diagrams: 08/26/22 03:10 08/26/22 03:10 Laboratory: Laboratory Results - last 24 hr 08/26/22 03:10: WBC 12.5 H, RBC 3.47 L, Hgb 9.3 L, Hct 29.3 L, MCV 84.4, MCH 26.8 L, MCHC 31.7 L, RDW Std Deviation 40.0, RDW Coeff of Eulogio 13.0, Plt Count 297, MPV 9.5, Immature Gran % (Auto) 0.400, Neut % (Auto) 77.1 H, Lymph % (Auto) 14.1 L, [place] % (Auto) 7.1, Eos % (Auto) 1.1, Baso % (Auto) 0.2, Absolute Neuts (auto) 9.6 H, Absolute Lymphs (auto) 1.76, Nucleated RBC % 0 08/26/22 03:10: Sodium 143, Potassium 3.3 L, Chloride 111 H, Carbon Dioxide 26.0, Anion Gap 6, BUN 5 L, Creatinine 0.56, Estim Creat Clear Calc 102.63, Est GFR (MDRD) Af Amer 159, Est GFR (MDRD) Non-Af 131, BUN/Creatinine Ratio 8.8 L, Glucose 104, Calcium 8.4 L, Total Bilirubin 0.40, AST 15, ALT 24, Alkaline Phosphatase 69, Total Protein 5.8 L, Albumin 2.4 L, Globulin 3.4, Albumin/Globulin Ratio 0.7 L Microbiology: Microbiology 08/23/22 13:13 Wound Drainage - Abdominal Gram Stain - Final 08/23/22 13:13 Wound Drainage - Abdominal Wound Culture - Final No growth aerobically. 08/23/22 13:13 Wound Drainage - Abdominal Anaerobic Culture - Preliminary No growth in 48 hours. Meaningful Use Info Meaningful Use Diagnoses (Choose all that apply): None applicable Discharge Plan Admission Admit Date/Time: 08/23/22 17:44 Primary Reason for Your Visit: drainage of fluid collection in pelvis Attending Provider: Nisha Edouard Primary Care Provider: Naheed Kam Instructions Patient Instructions: Laparoscopic Hysterect Recovery, Hysterectomy Home Care, Stanley Mattson Drain Tube Dc, RAD RN Abscess Drainage, RAD RN Procedural Sedation Discharge Orders/Prescriptions Prescriptions: New sertraline [Zoloft] 50 mg tablet 50 mg PO DAILY Qty: 30 12RF buspirone 15 mg tablet 15 mg PO BID Qty: 60 3RF sulfamethoxazole-trimethoprim [Bactrim DS] 800-160 mg tablet 1 tab PO BID Qty: 14 0RF Continued ibuprofen 800 mg tablet 800 mg PO Q8H PRN (Reason: pain) 7 Days Qty: 30 0RF valacyclovir 500 mg tablet 500 mg PO BID PRN (Reason: Cold Sores) Label Comments: TAKE 1 TABLET BY MOUTHNTWICE DAILY NEEDED FOR COLD SORES. acetaminophen 500 mg Tablet 1,000 mg PO Q6H PRN (Reason: Pain) Referrals / Follow Up: Naheed Kam DO [Primary Care Provider] - Disposition Discharge Orders: Discharge Patient (Routine); Ordered 08/26/22 Ordered By: Dr. Nisha Edouard Charges/Coding Visit Charges Inpatient E&M: [id number] Disch Hosp
[2022-08-26] MEDS: Polyethylene Glycol 3350 17 GM PACKET PO (10:48)
[2022-08-26] MEDS: Docusate Sodium 100 MG Capsule PO (10:48)
[2022-08-26 12:00] VITALS: BP 110/65; PULSE 98; RESP 18; TEMP 36.3; O2SAT 99
== END 2022-08-26 12:30 | disposition home or self-care (01) | DRG 863 ==
LOC: ED 18:28 → MS3 18:29
PROVIDERS: Admitting Provider Obstetrics & Gynecology; Emergency Provider Emergency Medicine; PCP Family Medicine; Visit Provider Obstetrics & Gynecology
DX: T81.49XA Infection following a procedure, other surgical site, initial encounter (principal); F41.0 Panic disorder [episodic paroxysmal anxiety]; L29.9 Pruritus, unspecified; G89.18 Other acute postprocedural pain; Z90.710 Acquired absence of both cervix and uterus; Z86.16 Personal history of COVID-19; N73.9 Female pelvic inflammatory disease, unspecified; N73.8 Other specified female pelvic inflammatory diseases
CPT/HCPCS: 36415; 74177; 77012; 80048; 80053; 81001; 85025; 87070; 87075; 87205; 93005; 97802; 99152; 99153; 99156; 99284; J7030; J7050; J7120; Q9967; A4216; J2405

== ENCOUNTER → 2022-08-23 | Outpatient (CLI) | payer OTHER, SELFPAY ==
[2022-08-23 10:58] LABS: Absolute Lymphocyte Count 2.07 X10^3/uL (0.83-4.51); Basophil# 0.04 X10^3/uL; Basophil% 0.2 % (0-1); Eosinophil# 0.11 X10^3/uL; Eosinophils% 0.5 % (0-5); Hematocrit 39.8 % (37-47); Hemoglobin 12.5 g/dL (12.0-15.0); Lymphocyte # 2.07 X10^3/ul (0.83-4.51); Lymphocyte % 10.1 % (19-41); Mean Corp Hgb Conc 31.4 g/dL (32-36); Mean Corpuscular Hgb 26.3 pg (27.0-32.0); Mean Corpuscular Volume 83.6 fL (81-99); Mean Platelet Vol. 9.2 fl (6.2-12.0); Monocyte# 1.26 X10^3/uL; Monocyte% 6.1 % (0-10); NRBC Flagged by Analyzer 0 % (0-5); Neutrophil % 82.6 % (47-70); Platelet Count 394 K/mm3 (150-450); RBC Distribution Width CV 12.9 % (11.6-14.6); RBC Distribution Width SD 39.7 fl (35.1-43.9); Red Blood Count 4.76 M/mm3 (4.2-5.4); White Blood Count 20.6 K/mm3 (4.4-11.0)
== END | disposition home or self-care (01) ==
PROVIDERS: PCP Family Medicine; Referring Provider Nurse Practitioner Women's Health; Visit Provider Nurse Practitioner Women's Health
DX: R10.2 Pelvic and perineal pain (principal); G89.18 Other acute postprocedural pain
CPT/HCPCS: 36415; 85025; 87070; 87077; 87205

== ENCOUNTER 2022-08-29 23:30 | Emergency (ER) | payer OTHER, SELFPAY ==
[2022-08-29 23:31] VITALS: BP 128/84; PULSE 86; RESP 14; TEMP 36.2; O2SAT 98; BMI 26.5
[2022-08-30] LABS: Absolute Lymphocyte Count 3.18 X10^3/uL (0.83-4.51); Absolute Neutrophil Count 5.8 X10^3/uL (2.0-7.7); Basophil# 0.05 X10^3/uL; Basophil% 0.5 % (0-1); Eosinophil# 0.19 X10^3/uL; Eosinophils% 1.9 % (0-5); Hematocrit 33.8 % (37-47); Hemoglobin 10.9 g/dL (12.0-15.0); Lymphocyte # 3.18 X10^3/ul (0.83-4.51); Lymphocyte % 31.8 % (19-41); Mean Corp Hgb Conc 32.2 g/dL (32-36); Mean Corpuscular Hgb 26.7 pg (27.0-32.0); Mean Corpuscular Volume 82.8 fL (81-99); Mean Platelet Vol. 9.1 fl (6.2-12.0); Monocyte# 0.69 X10^3/uL; Monocyte% 6.9 % (0-10); NRBC Flagged by Analyzer 0 % (0-5); Neutrophil # 5.78 X10^3/uL (2.7-7.7); Neutrophil % 57.8 % (47-70); Platelet Count 493 K/mm3 (150-450); RBC Distribution Width SD 39.4 fl (35.1-43.9); Red Blood Count 4.08 M/mm3 (4.2-5.4)
--- NOTE | 2022-08-30 00:39 | EDS_ITS ---
HPI HPI - Female History of Present Illness Chief Complaint: Vag Bleeding Informant: patient Narrative Narrative: Patient is a 32-year-old female status post laparoscopic hysterectomy 1 month ago complicated by postoperative abscess versus seroma. She is presenting with vaginal bleeding. Patient was discharged from the hospital 08/26 after having a AGATA drain placed. She had some scant light pink vaginal bleeding at that time. Today she felt more of a gush and noted initially yellow/foul-smelling vaginal discharge and then it turned into blood with clots. She states she is gone through 4 panty liners today. She notes that the only pads that she has at her house. She does have some fullness and bloating of her lower abdomen. She has any fever or chills. She notes her pain is actually improving. No other urinary symptoms. No other complaints at this time. [facility] Medical History Abnormal mammogram of left breast Anxiety and depression Breast mass, left COVID-19 Frequent headaches Heartburn Mass of head Wears contact lenses Wears glasses Home Medications ibuprofen 800 mg tablet 800 mg PO Q8H PRN pain 7 days #30 tabs 08/10/22 [Rx Last Taken 08/23/22] acetaminophen 500 mg tablet 1,000 mg PO Q6H PRN Pain 08/23/22 [History Last Taken 08/23/22] buspirone 15 mg tablet 15 mg PO BID #60 tabs 08/26/22 [Rx Last Taken Unknown] sertraline 50 mg tablet (Zoloft) 50 mg PO DAILY #30 tabs 08/26/22 [Rx Last Taken Unknown] sulfamethoxazole 800 mg-trimethoprim 160 mg tablet (Bactrim DS) 1 tab PO BID #14 tabs 08/26/22 [Rx Last Taken Unknown] valacyclovir 500 mg tablet 500 mg PO BID PRN Cold Sores #30 tabs 08/26/22 [Rx Last Taken Unknown] Allergy/AdvReac Type Severity Reaction Status Date / Time hydromorphone [From Dilaudid] AdvReac Other Verified 08/29/22 23:34 oxycodone [From Percocet] AdvReac Nausea Verified 08/29/22 23:34 Family History Father Diabetes Hypertension Mother Hypertension Surgical History History of section History of dilation and curettage lumpectomy back of head Status post hysterectomy Social History Smoking Status: Never smoker alcohol intake: current alcohol intake frequency: holidays/special occasions only details: pre- substance use type: does not use caffeine: Yes what type of physical activity do you participate in: walking and other details: cardio frequency: 5-6 times per week seatbelt use: always do you feel safe at home: Yes additional social history: [place] Patient works at [employer] ED Constitutional Constitutional ED: Denies chills or fever(s) Eyes Eyes: Denies change in vision ENT ENT ED: Denies rhinorrhea or sore throat Cardiovascular Cardiovascular: Denies chest pain Respiratory/Chest Respiratory/Chest: Denies cough Gastrointestinal Gastrointestinal: Reports abdominal pain; Denies diarrhea, nausea or vomiting Genitourinary Genitourinary ED: Reports other Details: vaginal bleeding ; Denies dysuria or hematuria Musculoskeletal Musculoskeletal: Denies arthralgias or myalgias Integumentary Denies rash Neurologic Neurologic: Denies headache(s) or weakness Psychiatric Psychiatric: Reports anxiety Hematologic/Lymphatic Hematologic/Lymphatic: Denies easy bleeding or easy bruising EXAM Physical Exam Const Vital Signs: 08/29/22 23:31 Temperature 97.1 F L Temperature Source Temporal Pulse Rate 86 Respiratory Rate 14 Blood Pressure 128/84 H Blood Pressure Mean 98 Pulse Ox 98 Oxygen Delivery Method Room Air Positive well nourished and well developed General Appearance ED: well developed and NAD; Negative for pallor HEENT Reports TM's clear and moist mucous membranes Tympanic Membrane ED: Yes TM's clear Eyes PERRL and EOMs intact bilaterally Neck supple Chest Wall inspection of chest normal and palpation of chest normal Resp normal respiratory effort and clear to auscultation bilaterally GI normal to inspection, nondistended, normoactive bowel sounds and soft to palpation Palpation: tender suprapubic (mild); Negative for guarding or rigid Narrative: Normal external genitalia. On speculum exam patient does have a quarter size clot noted in the vaginal canal. This is removed. Vaginal cuff is intact. No active bleeding is appreciated. Cuff tissue is pink and healthy appearing. No abnormal drainage appreciated. No significant tenderness on bimanual exam. Back/Spine no CVA tenderness Extremity normal to inspection Neuro oriented x3 Sensorium / Orientation: alert Motor Exam: Negative for general weakness Psych mental status grossly normal Skin no rashes or lesions noted General Skin Exam: Negative for pallor MDM MDM MDM Narrative Medical decision making narrative: Patient's evaluate for vaginal bleeding after hysterectomy dose complicated by postoperative abscess. Patient was nontoxic no acute distress, vital signs are normal. CBC shows normalized white blood cell counts that is now 10.0. Hemoglobin is 10.9 and improving from 3 days ago. Platelets are mildly high at 493. CMP remarkable for mildly low potassium at 3.4. Spoke with [employer]ATION MAINTENANCE INSTRUCTOR on- call, Dr. Godinez, who recommended speculum exam and if there is active bleeding to cauterize it with either Monsel's paste or sodium nitrite. On exam patient did have a small clot but no signs of active bleeding. Clot was removed and a watched for about 30 seconds denies any further bleeding. Patient does not appear to have a defect in her vaginal cuff on my physical exam. No significant tenderness on bimanual exam. Spoke again with AVIATION MAINTENANCE INSTRUCTOR who felt that patient can stay to be discharged home especially given her stable labs and vital signs. No new imaging indicated at this time. Patient is given return precautions. Encouraged follow-up with her AV[employer] MAINTENANCE INSTRUCTOR. Discharged home in stable and improved condition. Lab Data Attestation: I reviewed the patient's lab results. Labs: Laboratory Results - last 24 hr 08/29/22 08/29/22 23:48 23:48 WBC 10.0 RBC 4.08 L Hgb 10.9 L Hct 33.8 L MCV 82.8 MCH 26.7 L MCHC 32.2 RDW Std Deviation 39.4 RDW Coeff of Eulogio 13.0 Plt Count 493 H MPV 9.1 Immature Gran % (Auto) 1.100 H Neut % (Auto) 57.8 Lymph % (Auto) 31.8 [place] % (Auto) 6.9 Eos % (Auto) 1.9 Baso % (Auto) 0.5 Absolute Neuts (auto) 5.8 Absolute Lymphs (auto) 3.18 Nucleated RBC % 0 Sodium 141 Potassium 3.4 L Chloride 108 H Carbon Dioxide 26.0 Anion Gap 7 BUN 9 Creatinine 0.73 Estim Creat Clear Calc 78.73 Est GFR (MDRD) Af Amer 117 Est GFR (MDRD) Non-Af 97 BUN/Creatinine Ratio 12.3 Glucose 103 Calcium 8.9 Total Bilirubin 0.20 AST 11 L ALT 30 Alkaline Phosphatase 72 Total Protein 7.4 Albumin 3.0 L Globulin 4.4 H Albumin/Globulin Ratio 0.7 L Discharge Plan Triage Chief Complaint: Vag Bleeding ED Provider: Sophie Ordonez Dx/Rx/DC Orders Clinical Impression: Postoperative vaginal bleeding, Lower abdominal pain Instructions: ED Post Op Wound Check, Bleeding Prescriptions: No Action ibuprofen 800 mg tablet 800 mg PO Q8H PRN (Reason: pain) 7 Days Qty: 30 0RF acetaminophen 500 mg Tablet 1,000 mg PO Q6H PRN (Reason: Pain) sertraline [Zoloft] 50 mg tablet 50 mg PO DAILY Qty: 30 12RF buspirone 15 mg tablet 15 mg PO BID Qty: 60 3RF sulfamethoxazole-trimethoprim [Bactrim DS] 800-160 mg tablet 1 tab PO BID Qty: 14 0RF valacyclovir 500 mg tablet 500 mg PO BID PRN (Reason: Cold Sores) Qty: 30 4RF Rx Instructions: take for 7 days per outbreak Primary Care Provider: Naheed Kam Referrals: Nisha Edouard DO [Med Staff - Active Staff] - 3-5 Days Naheed Kam DO [Primary Care Provider] - Disposition Disposition: Home, Self Care
[2022-08-30 00:42] LABS: ALB/GLOB Ratio 0.7 RATIO (0.9-2.4); AST(SGOT) 11 U/L (15-37); Alanine Aminotransfer ALT/SGPT 30 U/L (13-56); Alkaline Phosphatase 72 U/L (45-117); Anion Gap 7 (5-15); BUN 9 mg/dL (7-18); BUN/Creat Ratio 12.3 RATIO (10-20); Calcium,Total 8.9 mg/dL (8.5-10.1); Chloride 108 mmol/L (98-107); Creatinine, Serum 0.73 mg/dL (0.55-1.02); EST Glomerular Filtration Rate 97 mL/min (>60); Est Glom Filt Rate - Afr Amer 117 mL/min (>60); Estimated Creatinine Clearance 78.73 ml/min; Globulin 4.4 g/dL (2.2-4.2); Glucose 103 mg/dL (74-106); Potassium 3.4 mmol/L (3.5-5.1); Protein, Total 7.4 g/dL (6.4-8.2); Sodium Level 141 mmol/L (136-145)
[2022-08-30 02:06] VITALS: BP 115/71; PULSE 72; RESP 14; O2SAT 99
== END 2022-08-30 02:06 | disposition home or self-care (01) ==
PROVIDERS: Emergency Provider Emergency Medicine; PCP Family Medicine; Visit Provider Emergency Medicine
DX: N93.9 Abnormal uterine and vaginal bleeding, unspecified (principal); N99.821 Postprocedural hemorrhage of a genitourinary system organ or structure following other procedure; R10.30 Lower abdominal pain, unspecified; F41.9 Anxiety disorder, unspecified; F32.A Depression, unspecified; Z79.899 Other long term (current) drug therapy; Z86.16 Personal history of COVID-19
CPT/HCPCS: 80053; 85025; 99283; A4216

== ENCOUNTER → 2022-09-14 | Outpatient (CLI) | payer OTHER, SELFPAY | END | disposition home or self-care (01) | LOC: LABSPEC 13:25 | PROVIDERS: PCP Family Medicine; Visit Provider Obstetrics & Gynecology | DX: R10.2 Pelvic and perineal pain (principal) | CPT/HCPCS: 87086 ==

== ENCOUNTER → 2023-01-11 | Outpatient (CLI) | payer OTHER, SELFPAY ==
[2023-01-11 10:29] LABS: Hematocrit 44.9 % (37-47); Hemoglobin 13.8 g/dL (12.0-15.0); Mean Corp Hgb Conc 30.7 g/dL (32-36); Mean Corpuscular Hgb 25.8 pg (27.0-32.0); Mean Corpuscular Volume 84.1 fL (81-99); Mean Platelet Vol. 9.3 fl (6.2-12.0); Platelet Count 273 K/mm3 (150-450); RBC Distribution Width SD 42.9 fl (35.1-43.9); Red Blood Count 5.34 M/mm3 (4.2-5.4); White Blood Count 10.6 K/mm3 (4.4-11.0)
[2023-01-11 11:04] LABS: ALB/GLOB Ratio 1.1 RATIO (0.9-2.4); AST(SGOT) 14 U/L (15-37); Alanine Aminotransfer ALT/SGPT 24 U/L (13-56); Albumin, Serum 3.9 g/dL (3.2-5.0); Alkaline Phosphatase 54 U/L (45-117); Anion Gap 5 (5-15); BUN 11 mg/dL (7-18); BUN/Creat Ratio 17.4 RATIO (10-20); Calcium,Total 9.2 mg/dL (8.5-10.1); Chloride 107 mmol/L (98-107); Cholesterol 194 mg/dL (200); Creatinine, Serum 0.63 mg/dL (0.55-1.02); EST Glomerular Filtration Rate 115 mL/min (>60); Est Glom Filt Rate - Afr Amer 139 mL/min (>60); Globulin 3.7 g/dL (2.2-4.2); Glucose 94 mg/dL (74-106); High Density Lipoprotein 61 mg/dL; Potassium 3.8 mmol/L (3.5-5.1); Protein, Total 7.6 g/dL (6.4-8.2); Sodium Level 138 mmol/L (136-145); T4 Free Direct 1.07 ng/dL (0.76-1.46); Thyroid Stim Hormone (TSH) 0.58 uIU/mL (0.358-3.74); Triglycerides 68 mg/dL; Very Low Density Lipoprotein 14 mg/dL (5-40)
== END | disposition home or self-care (01) ==
LOC: LAB 09:01
PROVIDERS: PCP Registered Nurse; Referring Provider Registered Nurse; Visit Provider Registered Nurse
DX: Z00.00 Encounter for general adult medical examination without abnormal findings (principal); Z83.49 Family history of other endocrine, nutritional and metabolic diseases
CPT/HCPCS: 36415; 80053; 80061; 84439; 84443; 85027

== ENCOUNTER → 2023-05-31 | Outpatient (CLI) | payer OTHER, SELFPAY ==
--- NOTE | 2023-05-31 09:17 | US_ITS ---
STUDY: ABDOMINAL ULTRASOUND REASON FOR EXAM: Female, 32 years old. ABDOMEN PAIN -- DIARRHEA TECHNIQUE: Transabdominal ultrasound was performed with real-time and static soriano scale imaging. TECHNICAL QUALITY: Adequate. COMPARISON: Comparison is made with prior study dated August 13, 2022. FINDINGS: Liver: The liver measures 15.9 cm. There is normal echogenicity of the liver. The bile ducts are within normal limits. There is hepatic color flow. The direction of portal flow is hepatopetal. There is no demonstrated mass lesion. Gallbladder: Normal distended gallbladder. The gallbladder wall measures 2.1 mm. There is a negative sonographic Dubon''s sign. There is no pericholecystic fluid. There are no gallstones. Common Bile Duct (C.B.D.): The common bile duct measures 4.5 mm. Pancreas: Normal size of the head, body and tail of the pancreas. There is normal echogenicity of the pancreas. There is no demonstrated pancreatic mass or cyst. Spleen: Normal size of the spleen. The spleen measures 10.4 cm x 5.4 cm x 5.4 cm. The superior lateral subcapsular region of the spleen shows areas of decreased echotexture. This may represent a subcapsular collection. Correlation with the CT scan following IV contrast is recommended. Right Kidney: Normal size of the right kidney. The right kidney measures 10 cm x 4.2 cm x 3.5 cm. Normal renal cortex. The right cortex measures 1.1 cm. There is no demonstrated renal mass or cyst. There is no right hydronephrosis. Left Kidney: Normal size of the left kidney. The left kidney measures 9.4 cm x 4.6 x 5.5 cm. Normal renal cortex. The left cortex measures 1.5 cm. There is no demonstrated renal mass or cyst. There is no left hydronephrosis. Aorta: Unremarkable I.V.C.: The IVC is patent. There is no ascites. US/Abdomen Complete IMPRESSION: Decreased echotexture is seen along the superior lateral aspect of the subcapsular region of the spleen as described. Correlation with enhanced CT scan of the abdomen is recommended. Electronically Signed: Sixto Monge MD at 12:12 EDT ,
[2023-05-31 10:03] LABS: Hematocrit 43.3 % (37-47); Hemoglobin 13.2 g/dL (12.0-15.0); Mean Corp Hgb Conc 30.5 g/dL (32-36); Mean Corpuscular Hgb 26.4 pg (27.0-32.0); Mean Corpuscular Volume 86.6 fL (81-99); Mean Platelet Vol. 10.3 fl (6.2-12.0); Platelet Count 212 K/mm3 (150-450); RBC Distribution Width CV 13.2 % (11.6-14.6); RBC Distribution Width SD 40.9 fl (35.1-43.9); White Blood Count 6.8 K/mm3 (4.4-11.0)
[2023-05-31 10:33] LABS: AST(SGOT) 12 U/L (15-37); Alanine Aminotransfer ALT/SGPT 22 U/L (13-56); Albumin, Serum 3.6 g/dL (3.2-5.0); Alkaline Phosphatase 51 U/L (45-117); Amylase 33 U/L (25-115); Anion Gap 6 (5-15); BUN 10 mg/dL (7-18); BUN/Creat Ratio 16.8 RATIO (10-20); Calcium,Total 8.7 mg/dL (8.5-10.1); Chloride 107 mmol/L (98-107); EST Glomerular Filtration Rate 123 mL/min (>60); Est Glom Filt Rate - Afr Amer 149 mL/min (>60); Ferritin 79 ng/mL (8-252); Globulin 3.7 g/dL (2.2-4.2); Glucose 90 mg/dL (74-106); Iron 33 ug/dL (50-170); Iron Binding Capacity,Total 330 ug/dL (250-450); Lipase 26 U/L (13-75); Potassium 3.7 mmol/L (3.5-5.1); Protein, Total 7.3 g/dL (6.4-8.2); Sodium Level 140 mmol/L (136-145)
[2023-06-01 15:09] LABS: Deamidated Gliadin IgA 8 units (0-19); Deamidated Gliadin IgG 2 units (0-19); t-Transglutaminase IgA <2 U/mL (0-3)
[2023-06-04 07:08] LABS: Beef <0.10 kU/L (Class 0); Cheddar Cheese <0.10 kU/L (Class 0); Chicken <0.10 kU/L (Class 0); Chocolate <0.10 kU/L (Class 0); Corn <0.10 kU/L (Class 0); Egg, White <0.10 kU/L (Class 0); Egg, Whole <0.10 kU/L (Class 0); Egg, Yolk <0.10 kU/L (Class 0); Gluten <0.10 kU/L (Class 0); Milk (Cow) <0.10 kU/L (Class 0); Peanut <0.10 kU/L (Class 0); Pork <0.10 kU/L (Class 0); Potato, White <0.10 kU/L (Class 0); Soybean <0.10 kU/L (Class 0); Wheat <0.10 kU/L (Class 0)
== END | disposition home or self-care (01) ==
PROVIDERS: PCP Registered Nurse; Referring Provider Registered Nurse; Visit Provider Registered Nurse
DX: R19.7 Diarrhea, unspecified (principal); R10.9 Unspecified abdominal pain; I49.8 Other specified cardiac arrhythmias
CPT/HCPCS: 36415; 76700; 80053; 82150; 82728; 83516; 83540; 83550; 83690; 85027; 86003; 86005

== ENCOUNTER → 2023-06-02 | Outpatient (CLI) | payer OTHER, SELFPAY ==
--- NOTE | 2023-06-02 08:56 | CT_ITS ---
STUDY: CT ABDOMEN AND PELVIS WITH CONTRAST REASON FOR EXAM: Female, 32 years old. DISORDER OF SPLEEN. Pain in the lower abdomen. Diarrhea. RADIATION DOSAGE (If Supplied By Facility): CTDIvol = ( 9.58 ) mGy, DLP = ( 427.86 ) mGycm TECHNIQUE: Transaxial images were obtained from the dome of the diaphragm to the symphysis pubis without oral contrast. Oral and IV Gastrografin and 100mL Isovue-300 was administered. Sagittal and coronal images were reconstructed. Individualized dose optimization techniques were used for this CT. COMPARISON: Comparison is made with prior study dated August 23, 2022. FINDINGS: The visualized lung bases are unremarkable. The visualized portions of the heart are within normal limits. Normal liver. Normal gallbladder and extrahepatic biliary system. Normal spleen. Normal pancreas. Normal bilateral adrenal glands. Normal right kidney. Normal left kidney. Normal visualized stomach. Normal small intestine. Normal colon. The appendix is visualized and appears normal. Normal abdominal aorta. Normal inferior vena cava. Normal retroperitoneum. Normal urinary bladder. There is a 4.6 cm x 3.6 cm cyst in the left adnexa. There is a 1.7 cm dominant follicle in the right ovary. Normal abdominal wall. Normal osseous structures. CT/Abdomen/Pelvis WITH Contrast IMPRESSION: 4.6 cm x 3.6 cm cyst in the left adnexa. 1.7 cm dominant follicle in the right ovary. Electronically Signed: Sixto Monge MD at 12:46 EDT ,
== END | disposition home or self-care (01) ==
LOC: CT 08:55
PROVIDERS: PCP Registered Nurse
DX: D73.9 Disease of spleen, unspecified (principal)
CPT/HCPCS: 74177; Q9967

== ENCOUNTER → 2023-06-28 | Outpatient (CLI) | payer OTHER, SELFPAY ==
--- NOTE | 2023-06-28 14:03 | BI_ITS ---
MAMMOGRAPHY - BILATERAL SCREENING REASON FOR EXAM: Female, 32 years old. Routine annual screening examination. PERTINENT HISTORY: Persistent tender lump in the medial aspect of the left breast. Grandmother with breast cancer. Aunt with breast cancer. TECHNIQUE: Digital bilateral breast satinder (3D mammographic acquisition) in the CC and MLO projections. 2-D mediolateral oblique (MLO) and craniocaudad (CC) views of both breasts were obtained. CAD: Full Field Digital Mammography with Computer Added Detection was performed. COMPARISON: Comparison is made with prior study June 18, 2022 and July 10, 2021. FINDINGS: Breast Composition: The breasts are heterogeneously dense, which may obscure small masses. There are no dominant masses or suspicious calcifications. Stable small benign-appearing bilateral axillary lymph nodes. No other significant abnormalities are identified. There has been no significant change since the prior study. BI/SCRN MAMM (CAD)W/SATINDER BILAT IMPRESSION: Stable bilateral screening mammogram. Yearly follow-up mammogram recommended. (A) ASSESSMENT CATEGORY: BIRADS Category 2: Benign. A letter regarding these results will be sent to the patient by the facility within 30 days. Approximately 10% of breast cancers are not detected by mammography. A normal mammogram should not delay biopsy of a clinically suspicious abnormality. [id number] Electronically Signed: Sixto Monge MD at 15:18 EDT ,
== END | disposition home or self-care (01) ==
LOC: OPBI 14:01
PROVIDERS: PCP Registered Nurse
DX: Z12.31 Encounter for screening mammogram for malignant neoplasm of breast (principal); Z80.3 Family history of malignant neoplasm of breast
CPT/HCPCS: 77063; 77067

== ENCOUNTER 2023-07-01 14:50 | Outpatient (RCR) | payer OTHER, SELFPAY | END 2023-07-01 19:00 | disposition home or self-care (01) | LOC: PT 14:50 | PROVIDERS: PCP Registered Nurse | DX: M62.89 Other specified disorders of muscle (principal); R10.2 Pelvic and perineal pain ==

== ENCOUNTER 2023-10-31 09:37 | Emergency (ER) | payer OTHER, SELFPAY ==
[2023-10-31 09:38] VITALS: BP 128/82; PULSE 82; RESP 16; TEMP 36.6; O2SAT 100; BMI 24.0
[2023-10-31] MEDS: 0.9% Normal Saline (1000mL) 1,000 ML 999 ML IV (10:19)
[2023-10-31] MEDS: Ketorolac 30 MG/ML Syringe IV (10:20)
[2023-10-31] MEDS: DiphenhydrAMINE 50 MG/ML Syringe 25 MG IV (10:20)
[2023-10-31] MEDS: Metoclopramide 10 MG/2 ML Vial IV (10:21)
--- NOTE | 2023-10-31 10:34 | EX.ED.VIS.HA ---
HPI History of Present Illness Chief Complaint: Headache Informant: patient Onset/Context/Timing Onset: Days (4) Context: Gradual Timing: Continuous Quality -Headache: Positive for Similar Prior Headaches Location: Right periorbital area Worsened by: Light Relieved by: Nothing Associated Symptoms/Injury Associated Symptoms: Positive for Sinus Pressure, Visual Changes and Photophobia; Negative for Fever, Nausea, Vomiting, Sore Throat, Numbness, Tingling, Preceding Aura, Blurred Vision or Visual Loss Injury - WRIGHT: Negative for Direct Trauma Narrative Narrative: Patient presents with a headache that has been constant for the past 4 days. Patient states it came on gradually. Patient states pain is constant. Patient states pain is around her right eye. Patient states nothing makes it better. Patient states it is worse with light. Patient states her right eye has some movement in her vision. Patient admits to some sinus pressure. Patient denies any paresthesias or weakness. Patient denies any trauma or injury. PFSH PFS Medical History Abnormal mammogram of left breast Anxiety and depression Breast mass, left COVID-19 Frequent headaches Heartburn Mass of head Wears contact lenses Wears glasses Home Medications valacyclovir 500 mg tablet 500 mg PO DAILY Cold Sores #90 tabs 10/03/23 [Rx Last Taken Unknown] Allergy/AdvReac Type Severity Reaction Status Date / Time hydromorphone [From Dilaudid] AdvReac Other Verified 10/31/23 09:37 oxycodone [From Percocet] AdvReac Nausea Verified 10/31/23 09:37 Family History Father Diabetes Hypertension Mother Hypertension Surgical History History of section History of dilation and curettage lumpectomy back of head Status post hysterectomy Social History Smoking Status: Never smoker alcohol intake: current alcohol intake frequency: holidays/special occasions only details: pre- substance use type: does not use caffeine: Yes what type of physical activity do you participate in: walking and other details: cardio frequency: 5-6 times per week seatbelt use: always do you feel safe at home: Yes additional social history: [place] Patient works at [employer] ROS ED Constitutional Constitutional ED: Reports chills; Denies fever(s) Eyes Eyes: Reports change in vision; Denies blurry vision ENT ENT ED: Denies rhinorrhea or sore throat Cardiovascular Cardiovascular: Reports chest pain; Denies palpitations Respiratory/Chest Respiratory/Chest: Denies cough or dyspnea Gastrointestinal Gastrointestinal: Denies nausea or vomiting Genitourinary Genitourinary ED: Denies dysuria or hematuria Musculoskeletal Musculoskeletal: Denies back pain or neck pain Integumentary Denies abscess or rash Neurologic Neurologic: Reports headache(s); Denies weakness Allergic/Immunologic Allergic/Immunologic ED: Denies mouth swelling or urticaria EXAM Physical Exam Const Vital Signs: 10/31/23 09:38 Temperature 97.9 F Temperature Source Temporal Pulse Rate 82 Respiratory Rate 16 Blood Pressure 128/82 H Blood Pressure Mean 97 Pulse Ox 100 Oxygen Delivery Method Room Air Positive well nourished and well developed General Appearance ED: well developed and NAD HEENT Reports moist mucous membranes temporal artery tenderness bilateral Neck supple, no meningeal signs and no JVD Resp normal respiratory effort and clear to auscultation bilaterally Cardio regular rate and regular rhythm GI non-tender and non-distended Palpation: soft Extremity normal to inspection and full ROM Neuro oriented x3, CN's II-XII intact bilaterally and no sensory deficits noted Elke Coma Scale: document GCS findings Spontaneous Obeys Commands Oriented 15 Sensorium / Orientation: awake and alert Speech: speech normal Motor Exam: strength 5/5 throughout Psych mental status grossly normal MDM MDM MDM Narrative Medical decision making narrative: Differential diagnosis includes temporal arteritis, migraine headache, and tension headache. Sed rate will be obtained to assess for temporal arteritis. Lab Data Attestation: I reviewed the patient's lab results. Lab results narrative: Sed rate was reviewed and was normal at 15. Labs: Laboratory Results - last 24 hr 10/31/23 10:25 ESR 15 Treatment and Re-Evaluation Narrative: Patient was given IV fluids, Reglan, Benadryl, and Toradol. Patient feeling better on reevaluation. Patient was advised of her findings. Patient was advised that this is most likely an ocular migraine. Patient was instructed to follow-up with her primary care physician in 5 to 7 days. Patient was instructed to rest in a dark quiet room. Patient was instructed to return if worse in any way. Patient understood and was agreeable with the plan. All questions were answered Discharge Plan Triage Chief Complaint: Headache ED Provider: Jed Harp Dx/Rx/DC Orders Clinical Impression: Migraine headache, Migraine with aura Instructions: ED, Migraine (Classical) Prescriptions: No Action valacyclovir 500 mg tablet 500 mg PO DAILY Qty: 90 4RF Primary Care Provider: Stephanie Benites NP Referrals: Stephanie Benites NP, DRYING EQUIPMENT OPERATOR-C [Primary Care Provider] - 5-7 Days Disposition Disposition: Home, Self Care
[2023-10-31 10:39] LABS: Erythrocyte Sedimentation Rate 15 mm/hr (0-30)
[2023-10-31 11:40] VITALS: BP 104/77; PULSE 74; RESP 16; TEMP 36.8; O2SAT 99
--- OUTSIDE RECORDS SUMMARY | 2023-10-31 12:45 | XMS RPT_ITS | CCD ---
Author Name Unknown Address [address] [place] [address] Organization [facility] Care Team Providers Care [employer] Grade Reading Teacher Name Role Phone Ortega NP, Cindy Castellano Unavailable Allergies Allergy Classification Reported Allergen(s) Allergy Type Date of Onset Reaction(s) Facility (2 sources) NKDA drug allergy [address] [facility] NEGATED: Highlighted row has been ruled out! (1 source) Observed no known allergies at [facility] No Known Allergies 7 propensity to adverse reactions [facility] Medications Completed/Discontinued Medications Medication Drug Class(es) Dates Sig (Normalized) Sig (Original) acetaminophen 250 mg / aspirin 250 mg / caffeine 65 mg oral tablet (1 source) Nonsteroidal Anti-inflammatory Drug, Central Nervous System Stimulant, Methylxanthine Start: 08-22-2014 take 2 tablets by mouth once daily as needed EXCEDRIN MIGRAINE 250-250-65 MG TABS Two tablets by mouth daily as needed for migraines ASPIRIN-ACETAMINOP HEN-CAFFEINE [id number] Naheed Kam, DO acetaminophen 500 mg / diphenhydrAMINE hydrochloride 25 mg oral tablet (2 sources) Histamine-1 Receptor Antagonist Start: 08-22-2014 End: 03-11-2016 take 2 tablets by mouth once daily as needed TYLENOL PM EXTRA STRENGTH 500-25 MG TABS Two tablets by mouth daily as needed DIPHENHYDRAMINE-AP AP (SLEEP) [id number] Cassy Sgeundo LPN azithromycin 250 mg oral tablet (2 sources) Macrolide Antimicrobial Start: 04-17-2015 End: 03-11-2016 take 2 tablets by mouth once, then take 1 tablet by mouth once daily, then take 2-5 tablets by mouth AZITHROMYCIN 250 MG TABS 2 po on day 1 then 1 po daily on days 2-5 AZITHROMYCIN [id number] Naheed Kam, DO ciprofloxacin 500 mg oral tablet (2 sources) Quinolone Antimicrobial Start: 08-22-2014 End: 09-27-2014 take 1 tablet by mouth twice daily CIPROFLOXACIN HCL 500 MG TABS 1 po Twice daily x 3 days CIPROFLOXACIN HCL [id number] Naheed Kam, DO clindamycin 0.01 mg/mg topical gel (2 sources) Lincosamide Antibacterial Start: 02-19-2015 End: 03-11-2016 CLINDAMYCIN PHOSPHATE 1 % GEL apply to affected areas twice daily CLINDAMYCIN PHOSPHATE [id number] Naheed Kam, DO DROSPIRENONE-ETHINYL ESTRADIOL TABS (2 sources) Progestin, Estrogen Start: 06-16-2017 End: 06-29-2017 BENSON TABS Once daily DROSPIRENONE-ETHIN YL ESTRADIOL TABS [id number] Cindy Vivas CONCRETE PANEL INSTALLER Problems Active Problems Problem Classification Problem Date Documented Date Episodic/Chronic Anxiety disorders (1 source) Anxiety disorder; Translations: [Anxiety disorder, unspecified] 08-22-2014 Chronic Headache, including migraine (2 sources) Migraine; Translations: [Migraine, unspecified, not intractable, without status migrainosus] Onset: 08-22-2014 08-22-2014 Chronic Menstrual disorders (1 source) Amenorrhea; Translations: [Amenorrhea, unspecified] Onset: 02-19-2015 03-03-2015 Chronic Unclassified (1 source) Well woman health examination ; Translations: [Encounter for gynecological examination (general) (routine) without abnormal findings] Onset: 08-22-2014 08-22-2014 Unclassified (1 source) Contraception care management; Translations: [Encounter for contraceptive management, unspecified] Onset: 08-22-2014 08-22-2014 Unclassified (1 source) Gynecologic examination ; Translations: [Encounter for gynecological examination (general) (routine) without abnormal findings] Onset: 06-29-2017 06-29-2017 Unclassified (1 source) Venereal disease screening ; Translations: [Encounter for screening for infections with a predominantly sexual mode of transmission] Onset: 06-30-2017 06-30-2017 Past or Other Problems Problem Classification Problem Date Documented Da te Episodic/Chronic Abdominal pain (2 sources) Pain in pelvis; Translations: [Generalized abdominal pain] Onset: 09-27-2014 08-21-2015 Episodic Contraceptive and procreative management (1 source) Encounter for surveillance of contraceptive pills; Translations: [Encounter for surveillance of contraceptive pills] Onset: 06-29-2017 06-29-2017 Episodic Genitourinary symptoms and ill-defined conditions (4 sources) Urgent desire to urinate; Translations: [Proteinuria] Onset: 08-22-2014 08-22-2014 Episodic Lymphadenitis (1 source) Cervical lymphadenopathy; Translations: [Localized enlarged lymph nodes] Onset: 03-11-2016 Resolved: 03-25-2016 03-11-2016 Episodic Malaise and fatigue (1 source) Fatigue; Translations: [Other fatigue] Onset: 09-27-2014 09-27-2014 Episodic Nonmalignant breast conditions (1 source) Breast tenderness; Translations: [Mastodynia] Onset: 08-22-2014 08-22-2014 Episodic Other bone disease and musculoskeletal deformities (2 sources) Segmental and somatic dysfunction; Translations: [Segmental and somatic dysfunction of cervical region] Onset: 06-16-2017 06-16-2017 Episodic Other female genital disorders (2 sources) Vaginal irritation; Translations: [Vaginal discharge] Onset: 08-22-2014 06-29-2017 Episodic Other gastrointestinal disorders (1 source) Hemorrhagic diarrhea ; Translations: [Diarrhea, unspecified] Onset: 09-27-2014 09-27-2014 Episodic Other skin disorders (1 source) Acne; Translations: [Acne, unspecified] Onset: 02-19-2015 03-03-2015 Episodic Other upper respiratory infections (1 source) Acute maxillary sinusitis; Translations: [Acute maxillary sinusitis, unspecified] Onset: 04-17-2015 04-17-2015 Episodic Spondylosis; intervertebral disc disorders; other back problems (1 source) Low back pain; Translations: [Low back pain] Onset: 05-06-2017 05-06-2017 Episodic Results Test Name Value Interpretation Reference Range Facil ity Vital Signs Date Time Vital Sign Value Performing Clinician Facility 06-29-2017 08:07-0400 BMI (Body Mass Index) 24.25 kg/m2 Cindy Vivas NP [facility] 06-29-2017 08:07-0400 Body Temperature 97 [degF] Cindy Vivas CONCRETE PANEL INSTALLER [facility] 06-29-2017 08:07-0400 BP Diastolic 74 mm[Hg] Cindy Vivas CONCRETE PANEL INSTALLER [facility] 06-29-2017 08:07-0400 BP Systolic 109 mm[Hg] Cindy Vivas CONCRETE PANEL INSTALLER [facility] 06-29-2017 08:07-0400 Height 152.4 cm Cindy Vivas CONCRETE PANEL INSTALLER [facility] 06-29-2017 08:07-0400 Pulse (Heart Rate) 77 /min Cindy Vivas CONCRETE PANEL INSTALLER [facility] 06-29-2017 08:07-0400 Respiratory Rate 16 /min Cindy Vivas CONCRETE PANEL INSTALLER [facility] 06-29-2017 08:07-0400 Weight 56.34 kg Cindy Vivas CONCRETE PANEL INSTALLER [facility] 03-11-2016 17:40-0400 BSA (Body Surface Area) 1.52 m2 Cindy Vivas CONCRETE PANEL INSTALLER [facility] Procedures Date Procedure Procedure Detail Performing Clinician Start: 06-30-2017 End: 07-04-2017 Herpes simplex virus 1+2 IgG Ab [Units/volume] in Serum Cindy Vivas CONCRETE PANEL INSTALLER Work Phone: Start: 06-29-2017 End: 06-29-2017 Urnls dip stick/tablet rgnt non-auto w/o micrscp Cindy Vivas CONCRETE PANEL INSTALLER Work Phone: Start: 06-16-2017 End: 06-16-2017 Appl modality 1/> areas elec stimj unattended Elsie Newby DC Work Phone: Start: 06-16-2017 End: 06-16-2017 Chiropractic manipulative tx spinal 1-2 regions Elsie Newby DC Work Phone: Start: 05-06-2017 End: 05-06-2017 Heterophile antibodies screen Luis Armando POON Work Phone: Start: 05-06-2017 End: 05-06-2017 Urine test visual color cmprsn meths Luis Armando POON Work Phone: Start: 05-06-2017 End: 05-06-2017 Urnls dip stick/tablet rgnt non-auto w/o micrscp Luis Armando Scherer PA Work Phone: Start: 03-11-2016 End: 03-12-2016 *CBC with Differential Aime Paulino Work Phone: Start: 03-11-2016 End: 03-19-2016 Borrelia burgdorferi Ab [interpretation] in Serum Aime Dorado DO Work Phone: Start: 03-11-2016 End: 03-15-2016 C reactive protein [Mass/volume] in Serum or Plasma by High sensitivity method Aime Dorado DO Work Phone: Start: 03-11-2016 End: 03-12-2016 Erythrocyte sedimentation rate Aime Maravilla DO Work Phone: Start: 03-11-2016 End: 03-12-2016 Heterophile Ab [Presence] in Serum Aime Dorado DO Work Phone: Start: 08-21-2015 End: 12-02-2015 Choriogonadotropin ( test) [Presence] in Serum or Plasma Naheed Kam, DO Work Phone: Start: 08-21-2015 End: 12-02-2015 Us pelvic nonobstetric real-time image complete Naheed Kam, DO Work Phone: Start: 09-27-2014 End: 09-27-2014 *B12FO Vitamin B12 and Folates Naheed A Mehrdad olmstead, DO Work Phone: Start: 09-27-2014 End: 09-27-2014 *CBC with Differential Naheed Diezmichael, DO Work Phone: Start: 09-27-2014 End: 10-01-2014 *CELIAC Celiac Disease AB [id number] Naheed A Rgmichael, DO Work Phone: Start: 09-27-2014 End: 09-27-2014 *CMP Complete Metabolic Panel Naheed A Rg michael, DO Work Phone: Start: 09-27-2014 End: 09-27-2014 C reactive protein [Mass/volume] in Serum or Plasma by High sensitivity method Naheed Kam, DO Work Phone: Start: 09-27-2014 End: 12-02-2015 Ct abdomen & pelvis w/contrast material Naheed Kam, DO Work Phone: Start: 09-27-2014 End: 12-02-2015 Ct abdomen w/o contrast material Naheed Kam, DO Work Phone: Start: 09-27-2014 End: 09-27-2014 Erythrocyte sedimentation rate Naheed olmstead, DO Work Phone: Start: 09-27-2014 End: 09-27-2014 Thyrotropin [Units/volume] in Serum or Plasma Naheed Kam, DO Work Phone: Start: 08-22-2014 End: 09-02-2014 *PAPIG6 Cytopath, Cerv/Vag, Fluid Auto Redo Naheed Kam, DO Work Phone: Start: 08-22-2014 End: 09-02-2014 Urnls dip stick/tablet rgnt non-auto w/o micrscp Naheed Kam, DO Work Phone: Plan of Treatment Date Care Activity Detail Author Start: 06-30-2017 End: 07-04-2017 Herpes simplex virus 1+2 IgG Ab [Units/volume] in Serum *HS12G Herpes Simplex Antibody [facility] Start: 06-29-2017 End: 06-29-2017 *CUUID - Urine NAKIA Culture - Identificatn *CUUID - Urine NAKIA Culture - Identificatn [facility] [place] Start: 06-29-2017 End: 06-29-2017 Bacteria genital culture *CUV - Culture, VAG/CX Comprehensive [facility] [place] Start: 06-16-2017 End: 06-16-2017 Follow up Appt 2x/week Follow up Appt 2x/week [facility] [place] Start: 05-06-2017 End: 05-06-2017 Referral to physician Follow Up with Primary Care Physician [facility] Start: 05-06-2017 End: 05-06-2017 Urinalysis complete panel - Urine *UAC- Urinalysis, Complete w/ Micro [facility] [place] Start: 03-11-2016 End: 03-12-2016 *CBC with Differential *CBC with Differential [facility] [place] Start: 03-11-2016 End: 03-19-2016 Borrelia burgdorferi Ab [interpretation] in Serum *LYMS Lyme Screen w/Reflx WB [id number] [facility] [place] Start: 03-11-2016 End: 03-15-2016 C reactive protein (hsCRP) *CRP - C-Reative Protein [facility] [place] Start: 03-11-2016 End: 03-12-2016 Erythrocyte sedimentation rate *Sedimentation Rate (ESR) [facility] [place] Start: 03-11-2016 End: 03-12-2016 Heterophile antibody presence *Infectious [place] Screen [facility] [place] Start: 08-21-2015 End: 12-02-2015 HCG ( test) Ql *PREGS - Qualitative, Serum [facility] [place] [place] Start: 08-21-2015 End: 12-02-2015 Us pelvic nonobstetric real-time image complete US Pelvis [facility] [place] Start: 09-27-2014 End: 09-27-2014 *B12FO Vitamin B12 and Folates *B12FO Vitamin B12 and Folates [facility] [place] [place] Start: 09-27-2014 End: 09-27-2014 *CBC with Differential *CBC with Differential [facility] [place] [place] Start: 09-27-2014 End: 10-01-2014 *CELIAC Celiac Disease AB [id number] *CELIAC Celiac Disease AB [id number] [facility] [place] [place] Start: 09-27-2014 End: 09-27-2014 *CMP Complete Metabolic Panel *CMP Complete Metabolic Panel [facility] [place] [place] Start: 09-27-2014 End: 09-27-2014 C reactive protein (hsCRP) *CRP - C-Reative Protein [facility] [place] Start: 09-27-2014 End: 12-02-2015 Ct abdomen & pelvis w/contrast material CT Abdomen/pelvis with contrast [facility] [place] Start: 09-27-2014 End: 12-02-2015 Ct abdomen w/o contrast material CT Abdomen [facility] [place] Start: 09-27-2014 End: 09-27-2014 Erythrocyte sedimentation rate *Sedimentation Rate (ESR) [facility] [place] [place] Start: 09-27-2014 End: 09-27-2014 Thyroid stimulating hormone (TSH) *TSH [facility] [place] Start: 08-22-2014 End: 09-02-2014 *PAPIG6 Cytopath, Cerv/Vag, Fluid Auto Redo *PAPIG6 Cytopath, Cerv/Vag, Fluid Auto Redo [facility] [place] [place] Start: 08-22-2014 End: 09-02-2014 Urnls dip stick/tablet rgnt non-auto w/o micrscp UA Dipstick (Office) [facility] [place] Patient Education MIGRAINE%20HEADACHE [facility] Additional Source Comments FOR RECORDS PERTAINING TO PATIENTS WHO ARE OR HAVE BEEN ENROLLED IN A CHEMICAL DEPENDENCY/SUBSTANCEABUSE PROGRAM, SOME INFORMATION MAY BE OMITTED. This clinical summary was aggregated from multiple sources. Caution should be exercised in using it in the provision of clinical care. This summary normalizes information from multiple sources, and as a consequence, information in this document may materially change the coding, format and clinical context of patient data. In addition, data may be omitted in some cases. CLINICAL DECISIONS SHOULD BE BASED ON THE PRIMARY CLINICAL RECORDS. [employer] provides no warranty or guarantee of the accuracy or completeness of information in this document.
== END 2023-10-31 11:42 | disposition home or self-care (01) ==
PROVIDERS: Emergency Provider Emergency Medicine; PCP Registered Nurse; Visit Provider Emergency Medicine
DX: G43.109 Migraine with aura, not intractable, without status migrainosus (principal); Z90.710 Acquired absence of both cervix and uterus
CPT/HCPCS: 85652; 96361; 96374; 96375; 99283; J7030; A4216

== ENCOUNTER → 2023-11-10 | Outpatient (CLI) | payer OTHER, SELFPAY ==
--- OUTSIDE RECORDS SUMMARY | 2023-11-10 07:33 | XMS RPT_ITS | CCD ---
Author Name Unknown Address [address] [place] [address] Organization [facility] Care Team Providers Care Insurance Account Executive Name Role Phone OrtegaCindy camejo NP Unavailable [phone] Allergies Allergy Classification Reported Allergen(s) Allergy Type Date of Onset Reaction(s) Facility (2 sources) NKDA drug allergy 5 [facility] NEGATED: Highlighted row has been ruled out! (1 source) Observed no known allergies at [facility] No Known Allergies 7 propensity to adverse reactions [facility] Medications Completed/Discontinued Medications Medication Drug Class(es) Dates Sig (Normalized) Sig (Original) acetaminophen 250 mg / aspirin 250 mg / caffeine 65 mg oral tablet (1 source) Nonsteroidal Anti-inflammatory Drug, Central Nervous System Stimulant, Methylxanthine Start: 08-22-2014 take 2 tablets by mouth once daily as needed EXCEDRIN MIGRAINE 250-250-65 MG TABS Two tablets by mouth daily as needed for migraines ASPIRIN-ACETAMINOP HEN-CAFFEINE [id number] Naheed Kam, DO acetaminophen 500 mg / diphenhydrAMINE hydrochloride 25 mg oral tablet (2 sources) Histamine-1 Receptor Antagonist Start: 08-22-2014 End: 03-11-2016 take 2 tablets by mouth once daily as needed TYLENOL PM EXTRA STRENGTH 500-25 MG TABS Two tablets by mouth daily as needed DIPHENHYDRAMINE-AP AP (SLEEP) [id number] Cassy Segundo LPN azithromycin 250 mg oral tablet (2 sources) Macrolide Antimicrobial Start: 04-17-2015 End: 03-11-2016 take 2 tablets by mouth once, then take 1 tablet by mouth once daily, then take 2-5 tablets by mouth AZITHROMYCIN 250 MG TABS 2 po on day 1 then 1 po daily on days 2-5 AZITHROMYCIN [id number] Naheed Kam, DO ciprofloxacin 500 mg oral tablet (2 sources) Quinolone Antimicrobial Start: 08-22-2014 End: 09-27-2014 take 1 tablet by mouth twice daily CIPROFLOXACIN HCL 500 MG TABS 1 po Twice daily x 3 days CIPROFLOXACIN HCL [id number] Naheed Kam, DO clindamycin 0.01 mg/mg topical gel (2 sources) Lincosamide Antibacterial Start: 02-19-2015 End: 03-11-2016 CLINDAMYCIN PHOSPHATE 1 % GEL apply to affected areas twice daily CLINDAMYCIN PHOSPHATE [id number] Naheed Kam, DO DROSPIRENONE-ETHINYL ESTRADIOL TABS (2 sources) Progestin, Estrogen Start: 06-16-2017 End: 06-29-2017 BENSON TABS Once daily DROSPIRENONE-ETHIN YL ESTRADIOL TABS [id number] Cindy Vivas MIRROR POLISHER Problems Active Problems Problem Classification Problem Date [...] Mass Index) 24.25 kg/m2 Cindy Vivas NP [facility][1[facility] 06-29-2017 08:07-0400 Body Temperature 97 [degF] Cindy Vivas MIRROR POLISHER [facility] 06-29-2017 08:07-0400 BP Diastolic 74 mm[Hg] Cindy Vivas MIRROR POLISHER [facility] 06-29-2017 08:07-0400 BP Systolic 109 mm[Hg] Cindy Vivas MIRROR POLISHER [facility] 06-29-2017 08:07-0400 Height 152.4 cm Cindy Vivas MIRROR POLISHER [facility] 06-29-2017 08:07-0400 Pulse (Heart Rate) 77 /min Cindy Vivas MIRROR POLISHER [facility] 06-29-2017 08:07-0400 Respiratory Rate 16 /min Cindy Vivas MIRROR POLISHER [facility] 06-29-2017 08:07-0400 Weight 56.34 kg Cindy Vivas MIRROR POLISHER [facility] 03-11-2016 17:40-0400 BSA (Body Surface Area) 1.52 m2 Cindy Vivas MIRROR POLISHER [facility] Procedures Date Procedure Procedure Detail Performing Clinician Start: 06-30-2017 End: 07-04-2017 Herpes simplex virus 1+2 IgG Ab [Units/volume] in Serum Cindy Vivas MIRROR POLISHER Work Phone: Start: 06-29-2017 End: 06-29-2017 Urnls dip stick/tablet rgnt non-auto w/o micrscp Cindy Vivas MIRROR POLISHER Work Phone: Start: 06-16-2017 End: 06-16-2017 Appl [...] 09-27-2014 End: 10-01-2014 *CELIAC Celiac Disease AB [id number] Naheed A Rgmichael, DO Work Phone: Start: [...] [Units/volume] in Serum *HS12G Herpes Simplex Antibody [facility] Start: 06-29-2017 End: 06-29-2017 *CUUID - Urine NAKIA Culture - Identificatn *CUUID - Urine NAKIA Culture - Identificatn [facility] Start: 06-29-2017 End: 06-29-2017 Bacteria genital culture *CUV - Culture, VAG/CX Comprehensive [facility] Start: 06-16-2017 End: 06-16-2017 Follow up Appt 2x/week Follow up Appt 2x/week [facility] Start: 05-06-2017 End: 05-06-2017 Referral to physician Follow Up with Primary Care Physician [facility] Start: 05-06-2017 End: 05-06-2017 Urinalysis complete panel - Urine *UAC- Urinalysis, Complete w/ Micro [facility] Start: 03-11-2016 End: 03-12-2016 *CBC with Differential *CBC with Differential [facility] Start: 03-11-2016 End: 03-19-2016 Borrelia burgdorferi Ab [interpretation] in Serum *LYMS Lyme Screen w/Reflx WB [id number] [facility] Start: 03-11-2016 End: 03-15-2016 C reactive protein (hsCRP) *CRP - C-Reative Protein [facility] Start: 03-11-2016 End: 03-12-2016 Erythrocyte sedimentation rate *Sedimentation Rate (ESR) [facility] Start: 03-11-2016 End: 03-12-2016 Heterophile antibody presence *Infectious Mcduffie Screen [facility] Start: 08-21-2015 End: 12-02-2015 HCG ( test) Ql *PREGS - Qualitative, Serum [facility] Start: 08-21-2015 End: 12-02-2015 Us pelvic nonobstetric real-time image complete US Pelvis [facility] Start: 09-27-2014 End: 09-27-2014 *B12FO Vitamin B12 and Folates *B12FO Vitamin B12 and Folates [facility] Start: 09-27-2014 End: 09-27-2014 *CBC with Differential *CBC with Differential [facility] Start: 09-27-2014 End: 10-01-2014 *CELIAC Celiac Disease AB [id number] *CELIAC Celiac Disease AB [id number] [facility] Start: 09-27-2014 End: 09-27-2014 *CMP Complete Metabolic Panel *CMP Complete Metabolic Panel [facility] Start: 09-27-2014 End: 09-27-2014 C reactive protein (hsCRP) *CRP - C-Reative Protein [facility] Start: 09-27-2014 End: 12-02-2015 Ct abdomen & pelvis w/contrast material CT Abdomen/pelvis with contrast [facility] Start: 09-27-2014 End: 12-02-2015 Ct abdomen w/o contrast material CT Abdomen [facility] Start: 09-27-2014 End: 09-27-2014 Erythrocyte sedimentation rate *Sedimentation Rate (ESR) [facility] Start: 09-27-2014 End: 09-27-2014 Thyroid stimulating hormone (TSH) *TSH [facility] Start: 08-22-2014 End: 09-02-2014 *PAPIG6 Cytopath, Cerv/Vag, Fluid Auto Redo *PAPIG6 Cytopath, Cerv/Vag, Fluid Auto Redo [facility] Start: 08-22-2014 End: 09-02-2014 Urnls dip stick/tablet rgnt non-auto w/o micrscp UA Dipstick (Office) [facility] Patient Education MIGRAINE%20HEADACHE [facility] Additional Source Comments FOR RECORDS PERTAINING [...] BE BASED ON THE PRIMARY CLINICAL RECORDS. [facility] provides no warranty or guarantee of the accuracy or completeness of information in this document.
[2023-11-10 08:34] LABS: Hematocrit 43.3 % (37-47); Hemoglobin 13.4 g/dL (12.0-15.0); Mean Corp Hgb Conc 30.9 g/dL (32-36); Mean Corpuscular Hgb 25.8 pg (27.0-32.0); Mean Corpuscular Volume 83.4 fL (81-99); Platelet Count 310 K/mm3 (150-450); RBC Distribution Width CV 13.1 % (11.6-14.6); RBC Distribution Width SD 39.4 fl (35.1-43.9); Red Blood Count 5.19 M/mm3 (4.2-5.4); White Blood Count 9.4 K/mm3 (4.4-11.0)
[2023-11-10 08:57] LABS: Vitamin B12 872 pg/mL (211-911); Vitamin D,25 Hydroxy 35.8 ng/mL
[2023-11-10 12:33] LABS: ALB/GLOB Ratio 1.2 RATIO (0.9-2.4); AST(SGOT) 11 U/L (15-37); Alanine Aminotransfer ALT/SGPT 18 U/L (13-56); Albumin, Serum 3.9 g/dL (3.2-5.0); Alkaline Phosphatase 38 U/L (45-117); Anion Gap 7 (5-15); BUN 12 mg/dL (7-18); BUN/Creat Ratio 18.4 RATIO (10-20); Calcium,Total 8.7 mg/dL (8.5-10.1); Chloride 105 mmol/L (98-107); Creatinine, Serum 0.65 mg/dL (0.55-1.02); EST Glomerular Filtration Rate 110 mL/min (>60); Est Glom Filt Rate - Afr Amer 134 mL/min (>60); Globulin 3.3 g/dL (2.2-4.2); Glucose 87 mg/dL (74-106); Iron 78 ug/dL (50-170); Iron Binding Capacity,Total 297 ug/dL (250-450); Magnesium 2.1 mg/dL (1.6-2.6); PERCENT IRON SATURATION 26.3 % (15.0-55.0); Protein, Total 7.2 g/dL (6.4-8.2); Sodium Level 141 mmol/L (136-145); T4 Free Direct 1.07 ng/dL (0.76-1.46); Thyroid Stim Hormone (TSH) 0.55 uIU/mL (0.358-3.74)
== END | disposition home or self-care (01) ==
LOC: LAB 07:31
PROVIDERS: PCP Registered Nurse; Referring Provider Registered Nurse; Visit Provider Registered Nurse
DX: R53.83 Other fatigue (principal); R41.89 Other symptoms and signs involving cognitive functions and awareness; G43.909 Migraine, unspecified, not intractable, without status migrainosus; E55.9 Vitamin D deficiency, unspecified
CPT/HCPCS: 36415; 80053; 82306; 82607; 82746; 83540; 83550; 83735; 84439; 84443; 85027

== ENCOUNTER → 2024-04-25 | Outpatient (CLI) | payer OTHER, SELFPAY ==
[2024-04-25 11:56] LABS: Absolute Lymphocyte Count 2.85 X10^3/uL (0.83-4.51); Absolute Neutrophil Count 7.9 X10^3/uL (2.0-7.7); Basophil# 0.03 X10^3/uL; Basophil% 0.3 % (0-1); Eosinophil# 0.12 X10^3/uL; Hematocrit 40.9 % (37-47); Hemoglobin 12.8 g/dL (12.0-15.0); Lymphocyte # 2.85 X10^3/ul (0.83-4.51); Lymphocyte % 24.8 % (19-41); Mean Corp Hgb Conc 31.3 g/dL (32-36); Mean Corpuscular Hgb 26.4 pg (27.0-32.0); Mean Corpuscular Volume 84.3 fL (81-99); Mean Platelet Vol. 9.9 fl (6.2-12.0); Monocyte# 0.61 X10^3/uL; Monocyte% 5.3 % (0-10); NRBC Flagged by Analyzer 0 % (0-5); Neutrophil # 7.86 X10^3/uL (2.7-7.7); Neutrophil % 68.3 % (47-70); Platelet Count 243 K/mm3 (150-450); RBC Distribution Width SD 39.9 fl (35.1-43.9); Red Blood Count 4.85 M/mm3 (4.2-5.4); White Blood Count 11.5 K/mm3 (4.4-11.0)
[2024-04-25 11:59] LABS: Erythrocyte Sedimentation Rate 5 mm/hr (0-30)
[2024-04-25 12:39] LABS: ALB/GLOB Ratio 1.1 RATIO (0.9-2.4); AST(SGOT) 16 U/L (15-37); Alanine Aminotransfer ALT/SGPT 20 U/L (13-56); Albumin, Serum 3.9 g/dL (3.2-5.0); Alkaline Phosphatase 50 U/L (45-117); Anion Gap 6 (5-15); BUN 11 mg/dL (7-18); BUN/Creat Ratio 16.9 RATIO (10-20); CRP < 2.90 mg/L (0.0-3.0); Calcium,Total 9.1 mg/dL (8.5-10.1); Chloride 106 mmol/L (98-107); Creatinine, Serum 0.65 mg/dL (0.55-1.02); EST Glomerular Filtration Rate 111 mL/min (>60); Est Glom Filt Rate - Afr Amer 134 mL/min (>60); Globulin 3.7 g/dL (2.2-4.2); Glucose 79 mg/dL (74-106); Potassium 3.6 mmol/L (3.5-5.1); Protein, Total 7.6 g/dL (6.4-8.2); Sodium Level 138 mmol/L (136-145)
[2024-04-30 19:07] LABS: ACCA 27 units (0-90); ALCA 7 units (0-60); AMCA 24 units (0-100); Albumin 4.3 g/dL (2.9-4.4); Alpha-1-Globulins 0.2 g/dL (0.0-0.4); Alpha-2-Globulins 0.7 g/dL (0.4-1.0); Cytoplasmic Ab (C-ANCA) <1:20 titer (Neg:<1:20); Endomysial Antibody IgA Negative (Negative); Gamma Globulin 1.1 g/dL (0.4-1.8); Immunoglobulin A 106 mg/dL (87-352); Immunoglobulin E 6 IU/mL (6-495); Immunoglobulin G 1035 mg/dL (586-1602); Immunoglobulin M 220 mg/dL (26-217); PROEL- TOTAL PROTEIN 7.3 g/dL (6.0-8.5); Perinuclear Ab (P-ANCA) <1:20 titer (Neg:<1:20); gASCA 4 units (0-50); t-Transglutaminase IgA <2 U/mL (0-3)
[2024-05-01 10:08] LABS: Anti-Centromere B Ab <0.2 AI (0.0-0.9); Anti-Chromatin <0.2 AI (0.0-0.9); Anti-Jo <0.2 AI (0.0-0.9); Anti-Scleroderma-70 AB <0.2 AI (0.0-0.9); Anti-dsDNA Ab <1 IU/mL (0-9); Beef <0.10 kU/L (Class 0); Chocolate <0.10 kU/L (Class 0); Codfish <0.10 kU/L (Class 0); Corn <0.10 kU/L (Class 0); Egg, Whole <0.10 kU/L (Class 0); Milk (Cow) <0.10 kU/L (Class 0); Mussels <0.10 kU/L (Class 0); Peanut <0.10 kU/L (Class 0); Pork <0.10 kU/L (Class 0); RNP Ab 0.3 AI (0.0-0.9); SJOGREN'S Anti-SS-A test < 0.2 AI (0.0-0.9); SJOGREN'S Anti-SS-B test < 0.2 AI (0.0-0.9); Salmon <0.10 kU/L (Class 0); Shrimp <0.10 kU/L (Class 0); Smith Ab <0.2 AI (0.0-0.9); Soybean <0.10 kU/L (Class 0); Tuna <0.10 kU/L (Class 0); Wheat <0.10 kU/L (Class 0)
== END | disposition home or self-care (01) ==
LOC: LAB 11:13
PROVIDERS: PCP Registered Nurse; Referring Provider Student in an Organized Health Care Education/Training Program; Visit Provider Student in an Organized Health Care Education/Training Program
DX: R19.7 Diarrhea, unspecified (principal)
CPT/HCPCS: 36415; 80053; 82784; 82785; 83516; 84165; 85025; 85652; 86003; 86005; 86036; 86140; 86225; 86235; 86255; 86256; 86334; 86671

== ENCOUNTER → 2024-04-30 | Outpatient (CLI) | payer OTHER, SELFPAY ==
[2024-05-04 00:07] LABS: Calprotectin, Stool <5 ug/g (0-120)
[2024-05-04 01:07] LABS: Pancreatic Elastase, Fecal 515 (>200)
== END | disposition home or self-care (01) ==
LOC: LABSPEC 12:51
PROVIDERS: PCP Registered Nurse; Referring Provider Student in an Organized Health Care Education/Training Program; Visit Provider Student in an Organized Health Care Education/Training Program
DX: K58.9 Irritable bowel syndrome, unspecified (principal); R19.7 Diarrhea, unspecified
CPT/HCPCS: 82653; 83630; 83993; 87177; 87209; 87329; 87493; 87506

== ENCOUNTER → 2024-05-23 | Outpatient (CLI) | payer OTHER, SELFPAY ==
[2024-05-23 08:57] LABS: Hematocrit 44.3 % (37-47); Hemoglobin 14.1 g/dL (12.0-15.0); Mean Corp Hgb Conc 31.8 g/dL (32-36); Mean Corpuscular Hgb 26.3 pg (27.0-32.0); Mean Corpuscular Volume 82.5 fL (81-99); Mean Platelet Vol. 9.8 fl (6.2-12.0); Platelet Count 168 K/mm3 (150-450); RBC Distribution Width SD 39.2 fl (35.1-43.9); Red Blood Count 5.37 M/mm3 (4.2-5.4); White Blood Count 4.8 K/mm3 (4.4-11.0)
[2024-05-23 09:32] LABS: ALB/GLOB Ratio 0.9 RATIO (0.9-2.4); AST(SGOT) 26 U/L (15-37); Alanine Aminotransfer ALT/SGPT 30 U/L (13-56); Albumin, Serum 3.5 g/dL (3.2-5.0); Alkaline Phosphatase 52 U/L (45-117); Anion Gap 11 (5-15); BUN 10 mg/dL (7-18); BUN/Creat Ratio 16.1 RATIO (10-20); Calcium,Total 9.4 mg/dL (8.5-10.1); Chloride 104 mmol/L (98-107); Creatinine, Serum 0.62 mg/dL (0.55-1.02); EST Glomerular Filtration Rate 116 mL/min (>60); Est Glom Filt Rate - Afr Amer 141 mL/min (>60); Globulin 3.7 g/dL (2.2-4.2); Glucose 92 mg/dL (74-106); Potassium 3.3 mmol/L (3.5-5.1); Protein, Total 7.2 g/dL (6.4-8.2); Sodium Level 141 mmol/L (136-145)
== END | disposition home or self-care (01) ==
PROVIDERS: PCP Registered Nurse; Referring Provider Nurse Practitioner Primary Care; Visit Provider Nurse Practitioner Primary Care
DX: R19.7 Diarrhea, unspecified (principal); K58.9 Irritable bowel syndrome, unspecified; R68.89 Other general symptoms and signs
CPT/HCPCS: 36415; 80053; 84443; 85027

== ENCOUNTER → 2024-05-31 | Outpatient (CLI) | payer OTHER, SELFPAY ==
--- NOTE | 2024-05-31 08:37 | US_ITS ---
STUDY: ABDOMINAL ULTRASOUND REASON FOR EXAM: Female, 33 years old. PAIN/BLOATING/DIARRHEA TECHNIQUE: Transabdominal ultrasound was performed with real-time and static soriano scale imaging. TECHNICAL QUALITY: Adequate. COMPARISON: Comparison is made with prior study dated May 31, 2023. FINDINGS: Liver: The liver measures 14.3 cm. There is normal echogenicity of the liver. The bile ducts are within normal limits. There is hepatic color flow. The direction of portal flow is hepatopetal. There is no demonstrated mass lesion. Gallbladder: Normal distended gallbladder. The gallbladder wall measures 2.0 mm. There is a negative sonographic Dubon''s sign. There is no pericholecystic fluid. There are no gallstones. Common Bile Duct (C.B.D.): The common bile duct measures 3.0 mm. Pancreas: Normal size of the head, body and tail of the pancreas. There is normal echogenicity of the pancreas. There is no demonstrated pancreatic mass or cyst. Spleen: Normal size of the spleen. The spleen measures 10.6 cm x 5.4 cm x 4.7 cm. Right Kidney: Normal size of the right kidney. The right kidney measures 10.4 cm x 5 cm x 3.3 cm. Normal renal cortex. The right cortex measures 1.2 cm. There is no demonstrated renal mass or cyst. There is no right hydronephrosis. Left Kidney: Normal size of the left kidney. The left kidney measures 10.1 cm x 4.5 cm x 4.6 cm. Normal renal cortex. The left cortex measures 1.7 cm. There is no demonstrated renal mass or cyst. There is no left hydronephrosis. Aorta: Unremarkable I.V.C.: The IVC is patent. There is no ascites. US/Abdomen Complete IMPRESSION: Normal abdominal ultrasound examination. Electronically Signed: Sixto Monge MD at 8:05 EDT ,
== END | disposition home or self-care (01) ==
LOC: US 08:36
PROVIDERS: PCP Registered Nurse; Referring Provider Nurse Practitioner Adult Health; Visit Provider Nurse Practitioner Adult Health
DX: R19.7 Diarrhea, unspecified (principal); R14.0 Abdominal distension (gaseous); R10.9 Unspecified abdominal pain
CPT/HCPCS: 76700

== ENCOUNTER → 2024-06-01 | Outpatient (CLI) | payer OTHER, SELFPAY ==
[2024-06-01 14:15] LABS: Bacteria 0 SEEN /hpf (None Seen); Mucous, Urine 0 SEEN /hpf (<or=2+); Red Blood Cells-Urine 0 SEEN /hpf (0-5); White Blood Cells 0 SEEN /hpf (0-5)
[2024-06-01 15:07] LABS: Color, Urine Yellow (Yellow); Glucose, Dipstick Normal (Normal); Ketone-Dipstick Negative (Negative); Leukocyte Esterase-Dipstick Negative /ul (Negative); Nitrite-Dipstick Negative (Negative); Occult Blood-Urine Negative /ul (Negative); Protein-Dipstick Negative (Negative); Specific Gravity, Urine 1.015 (1.002-1.030); Urine Bilirubin Dipstick Negative (Negative); Urine Clarity Sl. Cloudy (Clear); Urine Urobilinogen Normal (Normal)
[2024-06-01 15:17] LABS: Squamous Epithelial Cells - UA 0-5 SEEN /hpf (5-10)
[2024-06-01 15:54] LABS: Anion Gap 4 (5-15); BUN 10 mg/dL (7-18); BUN/Creat Ratio 15.9 RATIO (10-20); Calcium,Total 10.1 mg/dL (8.5-10.1); Chloride 102 mmol/L (98-107); Creatinine, Serum 0.63 mg/dL (0.55-1.02); EST Glomerular Filtration Rate 115 mL/min (>60); Est Glom Filt Rate - Afr Amer 139 mL/min (>60); Glucose 82 mg/dL (74-106); Potassium 4.3 mmol/L (3.5-5.1); Sodium Level 136 mmol/L (136-145)
== END | disposition home or self-care (01) ==
LOC: LAB 14:09
PROVIDERS: PCP Registered Nurse; Referring Provider Registered Nurse; Visit Provider Registered Nurse
DX: R35.0 Frequency of micturition (principal); E87.6 Hypokalemia
CPT/HCPCS: 36415; 80048; 81001

== ENCOUNTER → 2024-06-16 | Outpatient (CLI) | payer OTHER, SELFPAY ==
[2024-06-16 11:39] LABS: Cholesterol 186 mg/dL (200); High Density Lipoprotein 76 mg/dL; Triglycerides 61 mg/dL; Very Low Density Lipoprotein 12 mg/dL (5-40)
== END | disposition home or self-care (01) ==
LOC: LAB 10:33
PROVIDERS: PCP Registered Nurse
DX: Z13.21 Encounter for screening for nutritional disorder (principal); Z13.6 Encounter for screening for cardiovascular disorders
CPT/HCPCS: 36415; 80061; 82306

== ENCOUNTER 2024-06-19 13:42 | Day surgery (SDC) | payer OTHER, SELFPAY ==
[2024-06-19] VITALS (7 sets, daily range): BP systolic 88–101; BP diastolic 55–73; PULSE 74–93; RESP 16–18; TEMP 36.3–36.9; O2SAT 96–100; BMI 24.5
--- NOTE | 2024-06-19 14:30 | HP.PCM_ITS ---
History and Physical Date of Admission: 06/19/24 SCHUYLER DUKE, is a 33 F who presents to the office today for establishment with [facility]. She has a long hx of GI issues that have worsened over the past couple of months. She has diarrhea or softer stools everyday. She is unable to drive from [place] to [facility] without stopping to have a bm. She was seeing GI in [place] in 2022 as she wasn't able to get in at our office. She had colonoscopy at that time but no blood work. Her symptoms have become much worse since that colonoscopy. She has had a 15+ lbs weight loss over the past two months as she is afraid to eat. She has noticed that greasy foods and dairy seem to be worse. After having a lot of diarrhea she will have nausea and general malaise. She has increased abdominal bloating and cramping. She has not tried any mediations at this point. Colonoscopy 09.01.23; small lymphoid aggregates, otherwise histologically unremarkable colonic mucosa. No active, chronic or microscopic colitis. No granulomas or dysplasia. CD3 and Trichime stains are negative for lymphocytic and collagenous colitis respectively. ROS Const Constitutional: Positive for fatigue, headache(s) and weight change (weight loss); No fever(s) ENT ENT: Positive for headache(s); No difficulty swallowing Gastro GI: Positive for abdominal pain, bloating, change in bowel habits, diarrhea, heartburn, excessive flatus, Blood in stool and nausea/dyspepsia; No belching, change in stool character, coffee ground emesis, constipation, cramping, difficulty swallowing, feeling full early, incontinent of stools, Vomiting blood/hematemesis, loose stools, Black,tarry stools, pain with swallowing, vomiting or other Musc Musculoskeletal: Positive for back pain and muscle weakness; No joint pain Skin Skin: No yellowing of the eye or itchy eyes Neuro Neurology: Positive for headache(s) Psych Psychiatric: Positive for anxiety and No depression Endo Endocrine: Positive for fatigue and weight change (weight loss) Aller/Imm Allergy/Immunologic: No itchy eyes Ganga/Lymp Hematologic/Lymphatic: No easy bleeding or easy bruising Exam Const General: cooperative and comfortable Nutritional Appearance: average body habitus and well nourished [facility] Head: normal to inspection Ears: hearing grossly normal bilaterally Nose: external nose normal Face and sinus: normal facial exam Eyes General: appearance normal, both eyes and all related structures Neck Neck: normal visual inspection Chest Chest palpation & inspection: normal inspection of the chest Resp Effort & Inspection: normal respiratory effort Cardio Palpation: normal PMI GI Inspection: normal to inspection Palpation: no hepatosplenomegaly Skin General: no rashes or lesions noted Neuro General: patient alert Extrem General: normal to inspection Psych Affect: normal affect Assessment and Plan Assessment and Plan (1) Irritable bowel syndrome: Plan: Patient is here today to establish with I. She has long history of GI symptoms which have been worsening over time. She now has daily diarrhea, soft stools and urgency. She had a colonoscopy in 2022 that was without pertinent abnormality. Differential diagnosis includes IBS, IBD, SIBO or EPI. -Patient has never had blood work for IBD; will order IBD panel, celiac panel, food allergen, ANCA, LEXIS, ESR, CRP -Will order stool testing; calprotectin, lactoferrin, fecal elastase, enteric pathogen, c.dif, ova and parasites, Giardia -Recommended she start taking fiber supplement daily to decrease diarrhea. She will call the office if this is not helpful and we can put her on a prescription such as colestipol. -Prescribed her with dicyclomine 10 mg to take as needed for abdominal cramping associated with diarrhea -Since her last colonoscopy was in 2022 we will consider ordering another pending blood work and stool test results Orders: Orders Allergen, Food Profile 14 Today R19.7 - Diarrhea, unspecified LEXIS Comprehensive Panel Today R19.7 - Diarrhea, unspecified ANCA Today R19.7 - Diarrhea, unspecified Calprotectin, Stool Today R19.7 - Diarrhea, unspecified CBC W/Diff, Automated Today R19.7 - Diarrhea, unspecified CDIFF (PCR) Today R19.7 - Diarrhea, unspecified Celiac Disease Profile Today R19.7 - Diarrhea, unspecified IBD Expanded Profile Today R19.7 - Diarrhea, unspecified Giardia Lamblia, Stool EIA Today R19.7 - Diarrhea, unspecified Erythrocyte Sed Rate Today R19.7 - Diarrhea, unspecified ENTERIC PATHOGEN PANEL STOOL Today K58.9 - Irritable bowel syndrome without diarrhea, R19.7 - Diarrhea, unspecified CRP Today R19.7 - Diarrhea, unspecified Immunoglobulins G/A/M/E Today R19.7 - Diarrhea, unspecified Ova and Parasites [id number] Today K58.9 - Irritable bowel syndrome without diarrhea, R19.7 - Diarrhea, unspecified Pancreatic Elastase, Fecal Today R19.7 - Diarrhea, unspecified Stool Lactoferrin/WBC Today K58.9 - Irritable bowel syndrome without diarrhea, R19.7 - Diarrhea, unspecified ABEL + Protein Elect, Serum Today R19.7 - Diarrhea, unspecified Comprehensive Metabolic Profil Today R19.7 - Diarrhea, unspecified Medications: New dicyclomine 10 mg PO BID PRN 30 caps 3RF abdominal pain Coding I have examined the patient and the H&P has been reviewed. There are no clinical changes since date of exam.
--- NOTE | 2024-06-19 15:02 | PCM.PRE.AN2 ---
ASA Classification* ASA Classification ASA Classification: 2 Assessment & Plan Anesthesia* Anesthesia Assessment Anesthesia Assessment: Discussed sedation and/or anesthesia options, risks, benefits, and alternatives with patient/parents/legal guardian/POA. Questions invited. The patient/parents/legal guardian/POA seems to understand and agrees to proceed with anesthesia plan. Reviewed the physical assessment, medical history, allergy history and patient home medications list prior to surgery/procedure/anesthetic and documented any changes. Performed airway and anesthesia risk assessments. Anesthesia Type Anesthesia Type: MAC History Source History Obtained from:: Patient and Chart Anesthesia Focused Assessment* Temperature: 97.4 F Pulse Rate: 74 Blood Pressure: 101/73 Respiratory Rate: 18 Pulse Ox: 100 Oxygen Delivery Method: Room Air Airway Assessment Mouth opens: >3 cm Mallampati Score: I Teeth Condition: Intact Neck Range of motion (ROM): Full ROM Focused Labs Anesthesia Preop lab: CBC WBC 4.8 K/mm3 (4.4-11.0) 05/23/24 08:42 RBC 5.37 M/mm3 (4.2-5.4) 05/23/24 08:42 Hgb 14.1 g/dL (12.0-15.0) 05/23/24 08:42 Hct 44.3 % (37-47) 05/23/24 08:42 Plt Count 168 K/mm3 (150-450) 05/23/24 08:42 CHEMISTRY Potassium 4.3 mmol/L (3.5-5.1) 06/01/24 14:12 Sodium 136 mmol/L (136-145) 06/01/24 14:12 Magnesium 2.1 mg/dL (1.6-2.6) 11/10/23 07:34 Phosphorus 2.8 mg/dL (2.5-4.9) 04/21/23 09:08 BUN 10 mg/dL (7-18) 06/01/24 14:12 Creatinine 0.63 mg/dL (0.55-1.02) 06/01/24 14:12 Glucose 82 mg/dL (74-106) 06/01/24 14:12 POC Glucose 82 mg/dL (74-106) 08/10/22 09:07 TSH 2.650 uIU/mL (0.358-3.740) 05/23/24 08:42 COAG HCG, Quant < 1 mIU/mL (1-3) 03/12/21 15:45 Urine Test Negative Negative 08/10/22 08:55 Tst Clinic Negative 06/10/20 14:56 Pre-Assessment Diagnosis/Proposed Procedure Planned Operative Procedure(s): EGD Anesthesia History 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 When Was Last Pacemaker Check QUESTION #4 FULL TEXT: You/Your Family Experience fever (hyperthermia) with Anesthesia Last Oral Intake Last Oral intake: Last Oral Intake NPO since 00:00 06/19/24 14:02 Meds taken in AM with sips of No 06/19/24 14:02 water? 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 technician Female Yes 06/14/24 13:39 HX of Motion Sickness No 06/14/24 13:39 HX of N/V After Surgery No 06/14/24 13:39 Non-Smoker Yes 06/14/24 13:39 Duration of Surgery greater No 06/14/24 13:39 than 60 minutes Number of Risk Factors 2 06/14/24 13:39 PONV Score Moderate Risk 06/14/24 13:39 Height & Weight Height & Weight: Anesthesia: Height & Weight Height 4 ft 11 in 06/19/24 14:02 Weight: 55.066 kg 06/19/24 14:02 Body Mass Index (BMI) 24.5 06/19/24 14:02 Respiratory Assessment Respiratory Assessment - audiovisual technician: Respiratory Tract Infection Hx - audiovisual technician Hx Respiratory Tract Infection No 06/14/24 13:39 STOP Sleep Apnea STOP Sleep Apnea - audiovisual technician: STOP Sleep Apnea - audiovisual technician Hx Hypertension No 06/14/24 13:39 Hx Sleep Apnea No 06/14/24 13:39 CPAP No 01/19/23 15:04 BIPAP Do you snore loudly (louder No 06/14/24 13:39 than talking or can be heard Do you often feel tired/ No 06/14/24 13:39 fatigued/ sleepy during daytime? Has anyone observed you stop No 06/14/24 13:39 breathing during sleep? STOP Results Negative 06/14/24 13:39 QUESTION #5 FULL TEXT : Do you snore loudly (louder than talking or can be heard through closed doors)? 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 Specify any problems Hx of Preganancy in last 3 No 06/14/24 13:39 Months Nurse Filling Out Transfusion [id number] 06/14/24 13:39 & Questions: Date: 06/14/24 06/14/24 13:39 Time: 13:40 06/14/24 13:39 Patient unable to answer at this time (ie. confused, unrespo /Reproduction History /Reproductive History - audiovisual technician: /Reproductive Hx- audiovisual technician Hx Now No 06/14/24 13:39 Gestational Age (in weeks): EDC: Hx Hx Para Hx Section SAB No 10/31/23 09:38 PFS Medical History (Updated 06/14/24 @ 13:43 by Bjorn Ahn) Wears glasses Wears contact lenses Heartburn Breast mass, left Abnormal mammogram of left breast COVID-19 Mass of head Anxiety and depression Frequent headaches Home Medications ?Medication ?Instructions ?Recorded ?Last Taken ?Type escitalopram oxalate 10 mg tablet 10 mg PO DAILY 04/25/24 06/18/24 History valacyclovir 500 mg tablet 500 mg PO DAILY PRN Cold Sores 04/25/24 Unknown History Bacillus coagulans-inulin 1 1 cap PO DAILY 06/14/24 06/18/24 History billion cell-250 mg capsule (Probiotic with Prebiotic) Allergy/AdvReac Type Severity Reaction Status Date / Time hydromorphone (From Dilaudid) AdvReac Other Verified 06/19/24 14:02 oxycodone (From Percocet) AdvReac Nausea Verified 06/19/24 14:02 Family History Father Diabetes Hypertension Mother Hypertension Surgical History Status post hysterectomy History of section History of dilation and curettage lumpectomy back of head Social History Smoking Status: Never smoker alcohol intake: current alcohol intake frequency: holidays/special occasions only details: pre- substance use type: does not use caffeine: Yes what type of physical activity do you participate in: walking and other details: cardio frequency: 5-6 times per week seatbelt use: always do you feel safe at home: Yes additional social history: [place] Patient works at [employer] Review of Systems (Anesthesia) ROS Narrative System reviewed and no additional complaints, except as documented.
--- NOTE | 2024-06-19 15:15 | IMM_PTH ---
PATIENT: SCHUYLER DUKE LOC: EN U#:[id number] AGE/SX: 33/F ROOM: RE06/19/[address]: Dr. Igor Luke DO : 1990 BED: DIS: 06/19/2024 SPEC #: [id number] RECD: 06/20/24 08:21 STATUS: SILVIA REQ #: [id number] BRENT: 06/19/24 15:[address]: Igor Luke DEPT: IMMUNOHISTOCHEMISTRY RECD BY: Jimbo Beltran ENTERED: 06/20/24 08:21 SP TYPE: IMMUNO OTHR DR: Stephanie Benites, CAFE ASSISTANT-C Tissues: B - Gastric mucous membrane Procedures: H Pylori (initial) PHYSICIAN & INSTITUTION [place] [address] SPECIMEN INFORMATION: Tissue Source: B- Gastric body biopsy Clinical Info: Abdominal pain Specimen Number: [id number] CPT code: 47180 METHODOLOGY: Deparaffinized sections of prefer/formalin-fixed tissue or PAP/DQ stained slides are incubated with monoclonal/polyclonal antibodies/oligonucleotide probes. Localization is made via biotin free immunoperoxidase method. Appropriate controls are performed and reacted as expected. Results on target cell population are indicated in the following table: RESULTS: ANTIBODY / CLONE RESULT Block B H Pylori (polyclonal) negative These tests were developed and their performance characteristics determined by [facility]. They may not have been cleared or approved by the U.S. Food and Drug Administration. The FDA has determined that such clearance or approval is not necessary. The above immunohistochemical/dualISH markers are ordered and reviewed by the Pathologist. INTERPRETATION: B. Gastric body, biopsy: Negative for Helicobacter pylori organisms. 06/21/2024
--- NOTE | 2024-06-19 15:15 | EGD_PTH ---
PATIENT: SCHUYLER DUKE LOC: EN U#:[id number] AGE/SX: 33/F ROOM: RE06/19/[address]: Dr. Igor Luke DO : 1990 BED: DIS: 06/19/2024 SPEC #: [id number] RECD: 06/19/24 17:52 STATUS: SILVIA REJanette #: [id number] BRENT: 06/19/24 15:[address]: Igor Luke DEPT: SURGICAL PATHOLOGY RECD BY: Beatriz Martinez ENTERED: 06/20/24 08:04 SP TYPE: EGD BIOPSY LAUREN DR: Stephanie Benites, PIT INSPECTOR-C Tissues: A - Duodenum, NOS B - Gastric mucous membrane C - Esophagus, NOS Procedures: Surgery Specimen Level IV HEADER OPERATION: EGD with biopsy PRE-OP DIAGNOSIS: Abdominal pain TISSUE SUBMITTED: A- Duodenum biopsy, B- Gastric body biopsy, C- Random esophagus biopsy MICROSCOPIC DIAGNOSIS A. Duodenum, biopsy: Fragments of duodenal mucosa, no pathologic diagnosis. B. Gastric body, biopsy: Mild gastritis. See microscopic description and comment. C. Esophagus, random biopsy: Fragments of benign squamous epithelium. 06/21/2024 COMMENT B. The results of immunohistochemistry for Helicobacter pylori will be reported separately ([id number]). MICROSCOPIC DESCRIPTION Slides are reviewed. B. The specimen shows fragments of gastric mucosa with chronic inflammatory cell infiltrates in the lamina propria consisting of lymphocytes and plasma cells, consistent with mild chronic gastritis. GROSS DESCRIPTION A. Received in fixative is one container labeled with the patient's name and designated Duodenum biopsy. The specimen consists of multiple irregular fragments of light pérze soft tissue that in aggregate measure 1.0 x 0.3 x 0.1 cm. The specimen is totally submitted in one cassette. B. Received in fixative is one container labeled with the patient's name and designated Gastric body biopsy. The specimen consists of two irregular fragments of light pérez soft tissue that in aggregate measure 0.4 x 0.3 x 0.1 cm. The specimen is totally submitted in one cassette. C. Received in fixative is one container labeled with the patient's name and designated Random esophagus biopsy. The specimen consists of two irregular fragments of light pérez soft tissue that in aggregate measure 0.6 x 0.3 x 0.1 cm. The specimen is totally submitted in one cassette. SJSterlingmr 06/20/2024 TC:3 CPT:80425g8
--- NOTE | 2024-06-19 16:02 | OP.EGD_ITS ---
Patient Name: Barbara Quintanilla Procedure Date: 06/19/2024 3:40 PM Date of : 1990 Age: 33 Procedure: Upper GI endoscopy Indications: Epigastric abdominal pain, Functional Dyspepsia Providers: Igor Luke DO Referring MD: Gennaro Gerard Medicines: Monitored Anesthesia Care Patient Profile: This is a 33 year old female. Refer to note in patient chart for documentation of history and physical. Patient has symptoms of chronic epigastric abdominal pain. Complications: No immediate complications. Procedure: Pre-Anesthesia Assessment: - Prior to the procedure, a History and Physical was performed, and patient medications and allergies were reviewed. The patient is competent. The risks and benefits of the procedure and the sedation options and risks were discussed with the patient. All questions were answered and informed consent was obtained. Patient identification and proposed procedure were verified by the physician in the pre-procedure area. Mental Status Examination: alert and oriented. Airway Examination: normal oropharyngeal airway and neck mobility. Respiratory Examination: clear to auscultation. CV Examination: normal. Prophylactic Antibiotics: The patient does not require prophylactic antibiotics. Prior Anticoagulants: The patient has taken no anticoagulant or antiplatelet agents except for NSAID medication. ASA Grade Assessment: II - A patient with mild systemic disease. After reviewing the risks and benefits, the patient was deemed in satisfactory condition to undergo the procedure. The anesthesia plan was to use monitored anesthesia care (MAC). Immediately prior to administration of medications, the patient was re-assessed for adequacy to receive sedatives. The heart rate, respiratory rate, oxygen saturations, blood pressure, adequacy of pulmonary ventilation, and response to care were monitored throughout the procedure. The physical status of the patient was re-assessed after the procedure. After obtaining informed consent, the endoscope was passed under direct vision. Throughout the procedure, the patient's blood pressure, pulse, and oxygen saturations were monitored continuously. The Endoscope was introduced through the mouth, and advanced to the second part of duodenum. The upper GI endoscopy was accomplished without difficulty. The patient tolerated the procedure well. Scope In: 3:50:33 PM Scope Out: 3:56:19 PM Total Procedure Duration Time 0 hours 5 minutes 46 seconds Findings: Mucosal changes including longitudinal furrows were found in the upper third of the esophagus and in the middle third of the esophagus. Biopsies were obtained from the proximal and distal esophagus with cold forceps for histology of suspected eosinophilic esophagitis. Verification of patient identification for the specimen was done. Estimated blood loss was minimal. Clear fluid was found in the gastric body. Fluid aspiration was performed. Patchy mildly erythematous mucosa without bleeding was found in the gastric body. Biopsies were taken with a cold forceps for histology. Biopsies were taken with a cold forceps for Helicobacter pylori testing. Verification of patient identification for the specimen was done. Estimated blood loss was minimal. No gross lesions were noted in the second portion of the duodenum. Biopsies were taken with a cold forceps for histology. Verification of patient identification for the specimen was done. Estimated blood loss was minimal. Impression: - Esophageal mucosal changes suggestive of eosinophilic esophagitis. - Clear gastric fluid. Fluid aspiration performed. - Erythematous mucosa in the gastric body. Biopsied. - No gross lesions in the second portion of the duodenum. Biopsied. - Biopsies were taken with a cold forceps for evaluation of eosinophilic esophagitis. Recommendation: - Discharge patient to home. - Resume previous diet. - Continue present medications. - Await pathology results. Procedure Code(s): --- Professional --- 14510, Esophagogastroduodenoscopy, flexible, transoral; with biopsy, single or multiple CPT copyright 2021 [employer]. All rights reserved. The codes documented in this report are preliminary and upon dynamometer tester engine review may be revised to meet current compliance requirements. Igor Luke DO 06/19/2024 4:02:02 PM This report has been signed electronically. Number of Addenda: 0 Note Initiated On: 06/19/2024 3:40 PM
--- NOTE | 2024-06-19 16:02 | OP.CCLET_ITS ---
06/19/2024 Gennaro Gerard Re : Upper GI endoscopy procedure for Barbara Quintanilla Dear Delmis This procedure was performed on Wednesday, June 19, 2024. My impressions and recommendations are as follows: Impressions : - Esophageal mucosal changes suggestive of eosinophilic esophagitis. - Clear gastric fluid. Fluid aspiration performed. - Erythematous mucosa in the gastric body. Biopsied. - No gross lesions in the second portion of the duodenum. Biopsied. - Biopsies were taken with a cold forceps for evaluation of eosinophilic esophagitis. Recommendations : - Discharge patient to home. - Resume previous diet. - Continue present medications. - Await pathology results. My findings are described in the full procedure note, which is enclosed. If I can be of further assistance, please feel free to contact me at . Sincerely, Igor Luke, 06/19/2024 4:02:02 PM This report has been signed electronically.
--- NOTE | 2024-06-19 16:02 | PCM.POST.ANE ---
Anesthesia: Postop Eval I Current Vital Signs Temperature: 98.4 F Pulse Rate: 89 Blood Pressure: 88/55 Respiratory Rate: 16 Pulse Ox: 97 Oxygen Delivery Method: Room Air Assessment Airway patent: Yes Spontaneous unlabored respirations: Yes Mental status: Awake nausea: No Vomiting: No Anesthesia Complication: No Fluid Hydration Crystalloid volume administer (ml): 20 Total IV fluid infused: 20 Progress Note Anesthesia document: Postop Eval 1 completed: Yes
--- NOTE | 2024-06-19 17:04 | PCM.POSTANE2 ---
Anesthesia Postop Eval I Sum Postop Eval Completion status Anesthesia document: Postop Eval 1 completed: Yes Anesthesia Postop Eval I Summary Anesthesia Postop Eval I Summary: Anesthesia Postop Eval I: Assessment Summary Airway patent Yes 06/19/24 16:03 [email or web address] Spontaneous unlabored Yes 06/19/24 16:03 [email or web address] respirations Mental status Awake 06/19/24 16:03 [email or web address] nausea No 06/19/24 16:03 [email or web address] Vomiting No 06/19/24 16:03 [email or web address] Anesthesia Postop Eval I: Fluid Summary Crystalloid volume administer 20 06/19/24 16:03 [email or web address] (ml) Colloids volume administered ( ml) Blood Product volume administered (ml) Total IV fluid infused 20 06/19/24 16:03 [email or web address] Anesthesia Postop Eval I: Summary Notes Anesthesia Complication No 06/19/24 16:03 [email or web address] Anesthesia Complication Comment: Post-operative progress note Anesthesia: Postop Eval II Evaluation Mental status: Awake and Calm Pain Level: 0 nausea: No Vomiting: No Complications Anesthesia Complication: No
== END 2024-06-19 16:42 | disposition home or self-care (01) ==
LOC: EN 13:43 → AC 13:44
PROVIDERS: PCP Registered Nurse; Referring Provider Registered Nurse; Visit Provider Internal Medicine Gastroenterology
PROC: 0DJ08ZZ Inspection of Upper Intestinal Tract, Via Natural or Artificial Opening Endoscopic (ICD-10-PCS; CPT 43235; principal; 2024-06-19 15:10)
DX: K58.9 Irritable bowel syndrome, unspecified (principal); K29.70 Gastritis, unspecified, without bleeding; K22.9 Disease of esophagus, unspecified
CPT/HCPCS: 43239; 88305; 88342; A4216; J2405

== ENCOUNTER → 2024-06-21 | Outpatient (CLI) | payer OTHER, SELFPAY ==
--- NOTE | 2024-06-21 06:51 | NM_ITS ---
CLINICAL: 33-year-old female with history of abdominal bloating. SEMI-SOLID PHASE 99m Tc SULFUR COLLOID GASTRIC EMPTYING STUDY COMPARISON: None available FINDINGS: The patient was administered 1.2 mCi of 99m Tc sulfur colloid mixed with oatmeal and consumed per os. Image acquisitions in the anterior-posterior projection were obtained for 60 minutes. There is prompt visualization of the stomach. There is no gastroesophageal reflux identified. The T ? linear fit was calculated to be 49.98 minutes, (Normal: 12-56 minutes). NM/Gastric Emptying Study IMPRESSION: 1. NORMAL 99m Tc sulfur colloid semi-solid phase (oatmeal) gastric emptying imaging examination. A. There is normal and preserved semi-solid phase gastric emptying compared to normal controls. (Yariel et al, J Nucl Med Tech 38: 186, 2010). Electronically Signed: Magen Cheek DO at 11:59 EDT ,
== END | disposition home or self-care (01) ==
LOC: NM 06:06
PROVIDERS: PCP Registered Nurse; Referring Provider Internal Medicine Gastroenterology; Visit Provider Internal Medicine Gastroenterology
DX: R19.7 Diarrhea, unspecified (principal); R14.0 Abdominal distension (gaseous)
CPT/HCPCS: 78264; A9541

== ENCOUNTER 2024-06-25 14:19 | Outpatient (RCR) | payer OTHER, SELFPAY | END 2024-07-05 23:59 | LOC: NS 14:19 | PROVIDERS: PCP Registered Nurse; Referring Provider Student in an Organized Health Care Education/Training Program; Visit Provider Student in an Organized Health Care Education/Training Program | DX: Z71.3 Dietary counseling and surveillance (principal); R19.7 Diarrhea, unspecified | CPT/HCPCS: 97802 ==

== ENCOUNTER → 2024-07-06 | Outpatient (CLI) | payer OTHER, SELFPAY ==
--- NOTE | 2024-07-06 07:20 | BI_ITS ---
MAMMOGRAPHY - BILATERAL SCREENING REASON FOR EXAM: Female, 33 years old. Routine annual screening examination. PERTINENT HISTORY: Grandmother with breast cancer. Aunt with breast cancer TECHNIQUE: Digital bilateral breast satinder (3D mammographic acquisition) in the CC and MLO projections. 2-D mediolateral oblique (MLO) and craniocaudad (CC) views of both breasts were obtained. CAD: Full Field Digital Mammography with Computer Added Detection was performed. COMPARISON: Comparison is made with prior study June 28, 2023 and June 18, 2022. FINDINGS: Breast Composition: The breasts are heterogeneously dense, which may obscure small masses. There are no dominant masses or suspicious calcifications. Stable small bilateral axillary lymph nodes. No other significant abnormalities are identified. There has been no significant change since the prior study. BI/SCRN MAMM (CAD)W/SATINDER BILAT IMPRESSION: Stable bilateral screening mammogram. Yearly follow-up mammogram recommended. (A) ASSESSMENT CATEGORY: BIRADS Category 2: Benign. A letter regarding these results will be sent to the patient by the facility within 30 days. Approximately 10% of breast cancers are not detected by mammography. A normal mammogram should not delay biopsy of a clinically suspicious abnormality. [id number] Electronically Signed: Sixto Monge MD at 8:46 EDT ,
== END | disposition home or self-care (01) ==
LOC: OPBI 07:05
PROVIDERS: PCP Registered Nurse
DX: Z12.31 Encounter for screening mammogram for malignant neoplasm of breast (principal); Z80.3 Family history of malignant neoplasm of breast
CPT/HCPCS: 77063; 77067

== ENCOUNTER 2024-07-23 14:07 | Outpatient (RCR) | payer OTHER, SELFPAY | END 2024-08-04 23:59 | LOC: NS 14:07 | PROVIDERS: PCP Registered Nurse; Referring Provider Student in an Organized Health Care Education/Training Program; Visit Provider Student in an Organized Health Care Education/Training Program | DX: Z71.3 Dietary counseling and surveillance (principal); R19.7 Diarrhea, unspecified | CPT/HCPCS: 97803 ==

== ENCOUNTER → 2024-08-08 | Outpatient (CLI) | payer OTHER, SELFPAY ==
[2024-08-08 12:06] LABS: Hematocrit 44.6 % (37-47); Hemoglobin 13.7 g/dL (12.0-15.0); Mean Corp Hgb Conc 30.7 g/dL (32-36); Mean Corpuscular Hgb 26.3 pg (27.0-32.0); Mean Corpuscular Volume 85.8 fL (81-99); Mean Platelet Vol. 9.8 fl (6.2-12.0); Platelet Count 298 K/mm3 (150-450); RBC Distribution Width CV 13.7 % (11.6-14.6); RBC Distribution Width SD 42.5 fl (35.1-43.9); White Blood Count 10.4 K/mm3 (4.4-11.0)
--- NOTE | 2024-08-08 12:18 | CT_ITS ---
STUDY: CT BRAIN WITHOUT CONTRAST REASON FOR EXAM: Female, 34 years old. Migraine headache RADIATION DOSAGE (If Supplied By Facility): CTDIvol = ( 44.99 ) mGy, DLP = ( 745.49 ) mGycm TECHNIQUE: Transaxial CT imaging of the brain was performed without administration of intravenous contrast material. Individualized dose optimization techniques were used for this CT. COMPARISON: No relevant priors. FINDINGS: Normal soft tissue structures. Normal calvarium. Normal size ventricles and extra-axial spaces for the patient''s age. Normal white matter tracts of the cerebral hemispheres. Normal basal ganglia and thalami. Normal brainstem. Normal cerebellum. There is no intracranial hemorrhage. There are no findings of an acute ischemic infarction. Normal visualized paranasal sinuses. CT/Brain/Head without Contrast IMPRESSION: Normal unenhanced CT scan of the brain. Electronically Signed: Charles Hopper MD at 12:37 EST ,
[2024-08-08 13:10] LABS: Vitamin B12 689 pg/mL (211-911); Vitamin D,25 Hydroxy 33.8 ng/mL
[2024-08-08 13:23] LABS: ALB/GLOB Ratio 1.1 RATIO (0.9-2.4); AST(SGOT) 15 U/L (15-37); Alanine Aminotransfer ALT/SGPT 21 U/L (13-56); Albumin, Serum 4.3 g/dL (3.2-5.0); Alkaline Phosphatase 52 U/L (45-117); Anion Gap 7 (5-15); BUN 7 mg/dL (7-18); BUN/Creat Ratio 10.7 RATIO (10-20); Calcium,Total 9.9 mg/dL (8.5-10.1); Chloride 104 mmol/L (98-107); Cholesterol 208 mg/dL (200); Creatinine, Serum 0.65 mg/dL (0.55-1.02); EST Glomerular Filtration Rate 110 mL/min (>60); Est Glom Filt Rate - Afr Amer 133 mL/min (>60); Follicle Stimulating Hormone 5.9 mIU/mL; Globulin 3.9 g/dL (2.2-4.2); Glucose 87 mg/dL (74-106); High Density Lipoprotein 83 mg/dL; Magnesium 2.2 mg/dL (1.6-2.6); Potassium 3.3 mmol/L (3.5-5.1); Protein, Total 8.2 g/dL (6.4-8.2); Sodium Level 138 mmol/L (136-145); Triglycerides 93 mg/dL; Very Low Density Lipoprotein 19 mg/dL (5-40)
[2024-08-11 21:07] LABS: Anti-Mullerian Hormone,Serum 6.99 ng/mL (.)
== END | disposition home or self-care (01) ==
PROVIDERS: PCP Registered Nurse; Referring Provider Registered Nurse; Visit Provider Registered Nurse
DX: R23.2 Flushing (principal); G43.909 Migraine, unspecified, not intractable, without status migrainosus; R20.0 Anesthesia of skin; Z13.6 Encounter for screening for cardiovascular disorders; Z13.21 Encounter for screening for nutritional disorder
CPT/HCPCS: 36415; 70450; 80053; 80061; 82306; 82607; 82746; 83001; 83002; 83516; 83735; 85027

== ENCOUNTER → 2024-08-12 | Outpatient (CLI) | payer OTHER, SELFPAY ==
--- NOTE | 2024-08-12 08:07 | MRI_ITS ---
EXAM: MR HEAD WITHOUT AND WITH INTRAVENOUS CONTRAST CLINICAL INDICATION: MIGRAINE,NUMBNESS FACE AND RT ARM TECHNIQUE: Multiplanar and multisequence MR images of the brain were obtained without and with intravenous contrast. CONTRAST: IV 11ml clariscan COMPARISON: MRI brain from 03/14/2020 FINDINGS: BRAIN AND EXTRA-AXIAL SPACES: No abnormal areas of enhancement identified within the brain parenchyma or elsewhere after contrast administration. No intra- or extra-axial hemorrhage. No evidence of acute infarct. No intracranial mass or mass effect. There is preservation of the soriano/white matter interface. Posterior fossa structures are unremarkable. Ventricles are appropriate for age. No hydrocephalus. Basal cisterns are patent. SELLA: Unremarkable. Normal sella turcica, pituitary gland, infundibular stalk, optic chiasm and hypothalamus. AUDITORY SYSTEM: Unremarkable. The internal auditory canals are patent. BONES/JOINTS: Unremarkable. No discrete lytic or blastic abnormalities. SINUSES: Unremarkable as visualized. Clear. MASTOID AIR CELLS: Unremarkable as visualized. Clear. ORBITS: Unremarkable as visualized. Both globes, extraocular muscles, optic nerves and retrobulbar fat appear unremarkable. VASCULATURE: Unremarkable as visualized. Normal flow voids in the major intracranial circulation. MRI/Brain W/WO Contrast IMPRESSION: Unremarkable pre and postcontrast MRI of the brain. Electronically Signed: Marcelino Dunham MD at 7:59 EST ,
== END | disposition home or self-care (01) ==
LOC: MRI 08:07
PROVIDERS: PCP Registered Nurse; Referring Provider Registered Nurse; Visit Provider Registered Nurse
DX: G43.909 Migraine, unspecified, not intractable, without status migrainosus (principal); R20.0 Anesthesia of skin
CPT/HCPCS: 70553; A9575

== ENCOUNTER → 2024-09-21 | Outpatient (CLI) | payer OTHER, SELFPAY ==
[2024-09-21 14:48] LABS: HIV - WCH Non-Reactive (Nonreactive); Hepatitis B Surface Antigen Non-Reactive (Nonreactive); Hepatitis C Antibody Non-Reactive (Nonreactive); Syphilis Antibodies Non-reactive
[2024-09-23 09:07] LABS: Hepatitis B Core AB IgM Negative (Negative)
== END | disposition home or self-care (01) ==
LOC: LAB 12:35
PROVIDERS: PCP Registered Nurse
DX: Z11.3 Encounter for screening for infections with a predominantly sexual mode of transmission (principal); Z11.4 Encounter for screening for human immunodeficiency virus [HIV]
CPT/HCPCS: 36415; 86703; 86705; 86780; 86803; 87340

== ENCOUNTER → 2025-01-07 | Outpatient (CLI) | payer OTHER, SELFPAY ==
--- NOTE | 2025-01-07 14:10 | RAD_ITS ---
PROCEDURE: CHEST PA AND LATERAL 01/07/2025 REASON FOR EXAM: SOB, RESPIRATOY ILLNESS TECHNIQUE: Frontal and lateral views of the chest. COMPARISON: Chest x-ray of 03/12/2021. RAD/Chest PA and Lateral IMPRESSION: Lungs appear clear throughout. No pleural effusion or pneumothorax is noted. The cardiomediastinal silhouette is within the normal range. Mild degenerative changes of the thoracic spine are seen. No acute osseous changes seen. No evidence of acute cardiopulmonary disease. Reading Location: [place] [id number]
== END | disposition home or self-care (01) ==
LOC: RAD 13:59
PROVIDERS: PCP Registered Nurse; Referring Provider Registered Nurse; Visit Provider Registered Nurse
DX: R06.02 Shortness of breath (principal)
CPT/HCPCS: 71046

== ENCOUNTER 2025-05-06 08:58 | Emergency (ER) | payer OTHER, SELFPAY ==
[2025-05-06 08:59] VITALS: BP 127/91; PULSE 101; RESP 16; TEMP 36.8; O2SAT 100; BMI 24.7
--- NOTE | 2025-05-06 09:08 | EDS_ITS ---
HPI History of Present Illness Chief Complaint: Abd Pain Narrative Narrative: Chief complaint and HPI: 34-year-old female with past medical history of hysterectomy presents for evaluation of right lower quadrant abdominal pain. Onset of symptoms yesterday evening. Associated symptom is nausea. Denies any fever, chills, shortness of breath, chest pain, diarrhea, constipation, dysuria, hematuria. States it feels similar to a pelvic abscess she had in the past. She denies any vaginal bleeding or discharge. No concern for STI. Review of systems: See HPI Medications: As listed on the chart Allergies: As listed on the chart PFSH: Per chart Vital signs: As listed on the chart. Reviewed. Physical exam: Gen: A&O x3, NAD Head: Normocephalic, atraumatic Eyes: No sclera icterus, conjunctiva clear ENT: Moist mucous membranes Neck: Trachea midline, No JVD CV: RRR, no murmurs, no peripheral edema Resp: Lungs CTA BL, no w/r/c GI: Abd soft, non-distended, tender to palpation in the right lower quadrant, no rebound or rigidity Pelvic: Normal external genitalia. No lesions, masses, or rashes appreciated. No active vaginal bleeding or discharge noted. No cervix visualized Musc: Full ROM, no deformity Skin: Warm, dry Neuro: Alert, oriented, grossly intact, sensation intact Psych: Cooperative, appropriate mood and affect [facility] Medical History Wears glasses Wears contact lenses Heartburn Breast mass, left Abnormal mammogram of left breast COVID-19 Mass of head Anxiety and depression Frequent headaches Home Medications ?Medication ?Instructions ?Recorded ?Last Taken ?Type escitalopram oxalate 10 mg tablet 10 mg PO DAILY 04/2506/18/24 History valacyclovir 500 mg tablet 500 mg PO DAILY PRN Cold So res 04/25/24 Unknown History Allergy/AdvReac Type Severity Reaction Status Date / Time hydromorphone (From Dilaudid) AdvReac Other Verified 05/06/25 08:59 oxycodone (From Percocet) AdvReac Nausea Verified 05/06/25 08:59 Family History Father Diabetes Hypertension Mother Hypertension Surgical History Status post hysterectomy History of section History of dilation and curettage lumpectomy back of head Social History Smoking Status: Never smoker alcohol intake: current alcohol intake frequency: holidays/special occasions only details: pre- substance use type: does not use caffeine: Yes what type of physical activity do you participate in: walking and other details: cardio frequency: 5-6 times per week seatbelt use: always do you feel safe at home: Yes additional social history: [place] Patient works at [employer] EXAM Physical Exam Const Vital Signs: 05/06/25 08:59 05/06/25 12:11 05/06/25 14:10 Temperature 98.2 F 98.8 F Temperature Source Temporal Oral Pulse Rate 101 H 83 66 Respiratory Rate 16 16 18 Blood Pressure 127/91 H 102/72 111/79 Blood Pressure Mean 103 82 89 Pulse Ox 100 100 100 Oxygen Delivery Method Room Air Room Air Room Air MDM MDM MDM Narrative Medical decision making narrative: 34-year-old female with past medical history of hysterectomy presents for evaluation of right lower quadrant abdominal pain. Differential diagnosis includes but is not limited to acute appendicitis, gastroenteritis, colitis, UTI, obstruction, lower suspicion for biliary pathology or pancreatitis. NS bolus, Zofran, NS bolus ordered. Abdominal pain workup ordered including CT abdomen pelvis. CBC without leukocytosis or anemia. CMP unremarkable. Lipase unremarkable. UA negative for UTI but positive for blood. Urine negative. CT abdomen pelvis shows hysterectomy. Moderate free fluid in the pelvis. Hydrosalpinx is seen on the right and there is a large, hyper enhancing cyst involving the right ovary. Pelvic inflammatory disease/infection should be considered. Mild circumferential thickening of the rectum. Proctitis should be considered. Patient not endorsing any rectal pain. Denies any diarrhea or constipation. Low suspicion for proctitis. Given these findings I did perform a pelvic exam which was unremarkable. Patient denies any vaginal discharge or bleeding. No concern for STI. States she has had the same sexual partner for years. Will add on trichomonas, gonorrhea, chlamydia. She consented. GREEN TIRE INSPECTOR was consulted and patient was discussed with Dr. Hilton recommended ultrasound be performed. Hold off on any antibiotics for now. Pelvic ultrasound shows that flow is present to the ovaries. There is a complex cyst right adnexa is either adjacent to or emanating from the right ovary. Ultrasound shows these are more separate structures with CT shows this is more closely associated with the ovary. Right hydrosalpinx is present. Findings may be sequelae of current or prior infection or inflammatory including PID. Hysterectomy. Moderate free fluid. Gonorrhea and Chlamydia negative. Trichomonas negative. GREEN TIRE INSPECTOR reconsulted. Patient was discussed with Dr. Hilton. Plan is to place the patient on a 10-day course of doxycycline. Follow-up outpatient. She is to call the office tomorrow to be scheduled to be seen. She is understanding of the plan. Will prescribed a short course of narcotics along with Tylenol and Motrin as needed for pain. Zofran as needed for nausea. Strict return precautions were explained. She confirmed understanding the plan. Patient stable discharge home. Impression 1. Complex cyst of the right adnexa 2. Right hydrosalpinx Lab Data Labs: Laboratory Results - last 24 hr 05/06/25 05/06/25 05/06/25 09:21 09:25 10:00 WBC 10.4 RBC 5.04 Hgb 13.6 Hct 41.5 MCV 82.3 MCH 27.0 MCHC 32.8 RDW Std Deviation 37.9 RDW Coeff of Eulog[place] 12.5 Plt Count 212 MPV 9.6 Immature Gran % (Auto) 0.200 Neut % (Auto) 70.2 H Lymph % (Auto) 22.2 Woodward % (Auto) 5.9 Eos % (Auto) 1.1 Baso % (Auto) 0.4 Absolute Neuts (auto) 7.3 Absolute Lymphs (auto) 2.30 Nucleated RBC % 0 Sodium 139 Potassium 3.9 Chloride 104 Carbon Dioxide 23.5 Anion Gap 11 BUN 11 Creatinine 0.69 L Estim Creat Clear Calc 88.91 Est GFR (MDRD) Non-Af 116 BUN/Creatinine Ratio 15.5 Glucose 95 Calcium 9.3 Total Bilirubin 1.02 AST 16 ALT 9 Alkaline Phosphatase 47 Total Protein 7.1 Albumin 4.4 Globulin 2.7 Albumin/Globulin Ratio 1.6 Lipase 25 Urine Color Yellow Urine Clarity Sl. Cloudy Urine pH 6.0 Ur Specific [place] 1.015 Urine Protein 15 H Urine Glucose (UA) Normal Urine Ketones Negative Urine Occult Blood 25 H Urine Nitrite Negative Urine Bilirubin Negative Urine Urobilinogen Normal Ur Leukocyte Esterase Negative Urine RBC 0-5 SEEN Urine WBC 0-5 SEEN Ur Squamous Epith Cells 5-10 SEEN Urine Bacteria 2+ Urine Mucus 0 SEEN Urine Test Cancelled Negative Radiography Diagnostic Testing: Clinical Impression(s) from Imaging Studies Abdomen/Pelvis CT 05/06/25 09:09 IMPRESSION: 1. Hysterectomy. 2. Moderate free fluid in the pelvis. Hydrosalpinx is seen on the right and there is a large, hyperenhancing cyst involving the right ovary. The previously identified cyst involving the left ovary has resolved. A small cyst on the left remains. Pelvic inflammatory disease/infection should be considered. 3. Mild circumferential thickening, hyperenhancement of the rectum. Proctitis should be considered. Reading Location: [facility] Transvaginal US 05/06/25 11:58 IMPRESSION: 1. Flow is present to the ovaries. 2. Complex cyst right adnexa is either adjacent to or emanating from the right ovary. Ultrasound shows these as more separate structures, while CT shows this to be more closely associated with the ovary. No color flow associated with the lesion. Right hydrosalpinx is present as well. Findings may be the sequelae of current or prior infection or inflammation including pelvic inflammatory disease. Correlate with history and laboratory values. 3. Hysterectomy 4. Moderate free fluid. Reading Location: [facility] Discharge Plan Triage Chief Complaint: Abd Pain ED Provider: Garett Walker Dx/Rx/DC Orders Prescriptions: No Action valacyclovir 500 mg tablet 500 mg PO DAILY PRN (Reason: Cold Sores) escitalopram oxalate 10 mg tablet 10 mg PO DAILY Primary Care Provider: Stephanie Benites NP Referrals: Stephanie Benites NP, WALKING DRAGLINE OPERATOR-C [Primary Care Provider] - Print Language: Malay
--- NOTE | 2025-05-06 09:09 | CT_ITS ---
PROCEDURE: ABDOMEN/PELVIS W IV CONT ONLY 05/06/2025 REASON FOR EXAM: RIGHT LOWER QUADRANT ABDOMINAL PAIN TECHNIQUE: Procedure Code: [id number] Modality: CT Procedure: ABDOMEN/PELVIS W IV CONT ONLY Coronal and Sagittal reconstruction series were provided. CONTRAST: Isovue 370 VOLUME: 75 mL One or more dose reduction techniques were used (e.g., Automated exposure control, adjustment of the mA and/or kV according to patient size, use of iterative reconstruction technique. RADIATION DOSE SUMMARY: CTDlvol: 20 mGy DLP: 473 mGycm COMPARISON: June 02, 2023 FINDINGS: Lung bases: Clear Liver: Normal Gallbladder: Normal Spleen: Normal Pancreas: Normal Adrenals: Normal Kidneys: Simple cyst left upper pole is 12 mm. Otherwise, the kidneys are unremarkable. Bladder: Normal Reproductive Organs: Fluid density linear, tubular structure is seen on the right side suggestive of hydrosalpinx. Additionally, there is an enlarged right ovary with hyperemia associated with a cystic structure located deep in the pelvis measuring 3.0 x 3.3 x 2.4 cm. Previously identified large cyst associated with the left ovary is no longer seen. Much smaller cyst is seen involving the left ovary measuring 1.2 x 0.8 x 1.2 cm. Fluid is present in the cul-de-sac. Uterus is surgically absent. Bowel: Stomach is normal. Small bowel is unremarkable. Colon appears normal except for some mild thickening, enhancement of the rectum with minimal stranding present. Appendix: The appendix is not identified. There is no inflammatory process identified in the right lower quadrant to suggest appendicitis. Lymph nodes: None appear enlarged. Vasculature: Normal Peritoneum / Retroperitoneum: No free air or mass. Scant free fluid in the pericolic gutters inferiorly. Moderate free fluid in the pelvis. 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 [address]/Abdomen/Pelvis W IV Cont ONLY IMPRESSION: 1. Hysterectomy. 2. Moderate free fluid in the pelvis. Hydrosalpinx is seen on the right and t here is a large, hyperenhancing cyst involving the right ovary. The previously identified cyst involving the left ovary has resol drake. A small cyst on the left remains. Pelvic inflammatory disease/infection should be considered. 3. Mild circumferential thickening, hyperenhancement of the rectum. Proctitis should be considered. Reading Location: [id number]
[2025-05-06 09:32] LABS: Hematocrit 41.5 % (37-47); Hemoglobin 13.6 g/dL (12.0-15.0); Immature Granulocytes Count 0.020 X10^3/uL (0.0-0.0); Mean Corp Hgb Conc 32.8 g/dL (32-36); Mean Corpuscular Volume 82.3 fL (81-99); Mean Platelet Vol. 9.6 fl (6.2-12.0); NRBC Flagged by Analyzer 0 % (0-5); Platelet Count 212 K/mm3 (150-450); RBC Distribution Width CV 12.5 % (11.6-14.6); RBC Distribution Width SD 37.9 fl (35.1-43.9); Red Blood Count 5.04 M/mm3 (4.2-5.4); White Blood Count 10.4 K/mm3 (4.4-11.0)
--- OUTSIDE RECORDS SUMMARY | 2025-05-06 09:37 | XMS RPT_ITS | CCD ---
Author Organization [facility] Care Team Providers Care System Planning Engineer Name Role Phone Ortega ADAM, Cindy S Unavailable Dr. Naheed Kam Primary Care Provider Dr. Naheed Kam Referring Provider CLEVE Price Attending Provider Ortega ADAM, CHARLY White Attending Provider Dr. Naheed Kam Primary Care Provider Dr. Naheed Kam Referring Provider Dr. Nisha Edouard Attending Provider CLEVE Price Attending Provider CLEVE Jj Attending Provider Dr. Naheed Kam Primary Care Provider Dr. Naheed Kam Referring Provider Dr. Nisha Edouard Attending Provider CLEVE Price Attending Provider CLEVE Jj Attending Provider Dr. Elsie Newby Attending Provider Dr. Og Kunz Attending Provider [phone] Dr. Nisha Edouard Referring Provider Dr. Nisha Edouard Other Provider Dr. Tigre Mancuso Other Provider Dr. Nisha Edouard Admit Provider Ortega ACCOUNTING CLERKS SUPERVISOR, ACCOUNTING CLERKS SUPERVISOR-C Cindy Attending Provider Dr. Bc Weinstein Emergency Provider Dr. Sixto Monge Other Provider Unavaila priya Kam, Dr. Farfan Primary Care Provider [phone] Dr. Naheed Kam Referring Provider Dr. Nisha Edouard Attending Provider [phone] Negin, Dr. Farfan Primary Care Provider Dr. Naheed Kam Referring Provider Dr. Nisha Edouard Attending Provider [phone] Nia ACCOUNTING CLERKS SUPERVISOR, ACCOUNTING CLERKS SUPERVISOR-C Stephanie Primary Care Provider Nia ACCOUNTING CLERKS SUPERVISOR, ACCOUNTING CLERKS SUPERVISOR-C Stephanie Referring Provider CLEVE Jj Attending Provider CLEVE Jj Attending Provider Nia ACCOUNTING CLERKS SUPERVISOR, ACCOUNTING CLERKS SUPERVISOR-C Stephanie Primary Care Provider Nia ACCOUNTING CLERKS SUPERVISOR, ACCOUNTING CLERKS SUPERVISOR-C Stephanie Referring Provider CLEVE Jj Attending Provider Nia ACCOUNTING CLERKS SUPERVISOR, ACCOUNTING CLERKS SUPERVISOR-C Stephanie Primary Care Provider Nia ACCOUNTING CLERKS SUPERVISOR, ACCOUNTING CLERKS SUPERVISOR-C Stephanie Referring Provider [phone] CLEVE Jj Attending Provider NIA WELL DRILLER HELPER-PULP GRINDER, STEPHANIE A Primary Care Physi rock NIA WELL DRILLER HELPER-PULP GRINDER, STEPHANIE A Primary Care Un available SALVADOR WELL DRILLER HELPER-PULP GRINDERVERONICA Attending Unavailabl e NIA WELL DRILLER HELPER-PULP GRINDER, STEPHANIE A Primary Care Un available RUPERT WELL DRILLER HELPER-PULP GRINDER, OMARI Attending Unavailab OMARI Ibarra Attending Provider Nia ACCOUNTING CLERKS SUPERVISOR-C, [facility] Care Provider [phone] Nia ACCOUNTING CLERKS SUPERVISOR-C, Stephanie Referring Provider [phone] Sukh ACCOUNTING CLERKS SUPERVISOR-C, Solomon Angel Attending Provider Luis Armando Jj Attending Provider Nia ACCOUNTING CLERKS SUPERVISOR-C, [place] Attending Provider [phone] Nia ACCOUNTING CLERKS SUPERVISOR-C, [facility] Care Provider [phone] Dr. Elsie Newby [place] Attending Provider Sukh ACCOUNTING CLERKS SUPERVISOR, Solomon Angel Attending Unavailable Nia ACCOUNTING CLERKS SUPERVISOR, [facility] Unavailabl e Nia ACCOUNTING CLERKS SUPERVISOR, [place] Referring Unavailabl e Luis Armando Jj Attending Unavailable Nia ACCOUNTING CLERKS SUPERVISOR, [facility] Unavailabl e Nia ACCOUNTING CLERKS SUPERVISOR, [place] Referring Unavailabl e DosElsie lorenzo Attending Unavailable Nia ACCOUNTING CLERKS SUPERVISOR, [facility] Unavailabl e Nia ACCOUNTING CLERKS SUPERVISOR, [place] Referring Unavailabl e DosElsie lorenzo Attending Unavailable Nia ACCOUNTING CLERKS SUPERVISOR, [place] Referring Unavailabl e Nia ACCOUNTING CLERKS SUPERVISOR, [facility] Unavailabl e Vaccarelli, Magda Referring Unavailable Vaccarelli, Magda Attending Unavailable Nia ACCOUNTING CLERKS SUPERVISOR, [facility] Unavailabl e Vaccarelli, Magda Referring Unavailable Vaccarelli, Magda Attending Unavailable Nia ACCOUNTING CLERKS SUPERVISOR, [facility] Unavailabl e Igor Luke Referring Unavailable Igor Luke Attending Unavailable Nia ACCOUNTING CLERKS SUPERVISOR, [facility] Unavailabl e Nia ACCOUNTING CLERKS SUPERVISOR, [facility] Unavailabl e JOYCELYN RE1 Attending Unavailable Nia ACCOUNTING CLERKS SUPERVISOR, [facility] Unavailabl e Salvador ACCOUNTING CLERKS SUPERVISOR, Veronica Referring Unavailable Balrachele ACCOUNTING CLERKS SUPERVISOR, Veronica Attending Unavailable Cassy Espinoza Attending Unavailable Nia ACCOUNTING CLERKS SUPERVISOR, [place] Referring Unavailabl e Nia ACCOUNTING CLERKS SUPERVISOR, [facility] Unavailabl e DossiElsie Attending Unavailable Nia ACCOUNTING CLERKS SUPERVISOR, [place] Referring Unavailabl e Nia ACCOUNTING CLERKS SUPERVISOR, [facility] Unavailabl e Igor Luke Attending Unavailable Igor Luke Consulting Unavailable Nia ACCOUNTING CLERKS SUPERVISOR, [place] Referring Unavailabl e Nia ACCOUNTING CLERKS SUPERVISOR, [facility] Unavailabl e Luis Armando Jj Attending Unavailable Nia ACCOUNTING CLERKS SUPERVISOR, [facility] Unavailabl e Nia ACCOUNTING CLERKS SUPERVISOR, [place] Referring Unavailabl e Nia ACCOUNTING CLERKS SUPERVISOR, [place] Referring Unavailabl e Nia ACCOUNTING CLERKS SUPERVISOR, [place] Attending Unavailabl e Nia ACCOUNTING CLERKS SUPERVISOR, [facility] Unavailabl e MAST, ELDER Consulting Unavailable MAST, ELDER Referring Unavailable MAST, ELDER Attending Unavailable Nia ACCOUNTING CLERKS SUPERVISOR, [facility] Unavailabl e Nia ACCOUNTING CLERKS SUPERVISOR, Stephanie Attending Unavailabl e Nia ACCOUNTING CLERKS SUPERVISOR, [facility] Unavailabl e Nia ACCOUNTING CLERKS SUPERVISOR, Stephanie Referring Unavailabl e Nia ACCOUNTING CLERKS SUPERVISOR, [place] Referring Unavailabl e Nia ACCOUNTING CLERKS SUPERVISOR, Stephanie Attending Unavailabl e Nia ACCOUNTING CLERKS SUPERVISOR, [facility] Unavailabl e Nia ACCOUNTING CLERKS SUPERVISOR, [facility] Unavailabl e Nia ACCOUNTING CLERKS SUPERVISOR, [place] Referring Unavailabl e Nia ACCOUNTING CLERKS SUPERVISOR, Stephanie Attending Unavailabl e Igor Luke Attending Unavailable Nia ACCOUNTING CLERKS SUPERVISOR, [place] Referring Unavailabl e Nia ACCOUNTING CLERKS SUPERVISOR, [facility] Unavailabl e Cassy Espinoza Referring Unavailable Cassy Espinoza Attending Unavailable Nia ACCOUNTING CLERKS SUPERVISOR, [facility] Unavailabl e Cassy Espinoza Attending Unavailable Cassy Espinoza Referring Unavailable Nia ACCOUNTING CLERKS SUPERVISOR, [facility] Unavailabl e Cassy Espinoza Referring Unavailable Cassy Espinoza Attending Unavailable Nia ACCOUNTING CLERKS SUPERVISOR, [facility] Unavailabl e Nia ACCOUNTING CLERKS SUPERVISOR, [facility] Unavailabl e Assessment, Health Risk Referring Unavaila ble Assessment, Health Risk Attending Unavaila ble Cassy Espinoza Attending Unavailable Nia ACCOUNTING CLERKS SUPERVISOR, [place] Referring Unavailabl e Nia ACCOUNTING CLERKS SUPERVISOR, [facility] Unavailabl e Allergies Allergy Classification Reported Allergen(s) Allergy Type Date of Onset Reaction(s) Facility (2 sources) DA drug allergy 5 [facility] (20 sources) HYDROmorphone; Translations: [hydromorphone] Drug Allergy 2 Other, loss of motor function [facility] Comment on above: Dizzy (20 sources) oxyCODONE Drug Allergy 2 Nausea [facility] Comment on above: Dizzy (1 source) HYDROmorphone Drug Allergy 5 [facility] Repository (1 source) oxyCODONE Drug Allergy 5 [facility] Repository NEGATED: Highlighted row has been ruled out! (1 source) Observed no known allergies at [facility] No Known Allergies 7 propensity to adverse reactions [facility] Medications Current Medications Medication Drug Class(es) Dates Sig (Normalized) Sig (Original) acetaminophen 500 mg oral tablet (20 sources) Start: 05-23-2024 acetaminophen 500 mg oral tablet Dose : 1,000 mg = 2 tab(s), Oral, TID, PRN pain or fever, 0 Refill(s) Start Date: 05/23/24 Status: Ordered Repeat number: 1 Start: 08-23-2022 End: 09-14-2022 take 2 tablets by mouth every six hours as needed for pain Acetaminophen 500 mg Tablet Discontinued 1000 mg PO EVERY 6 HOURS as needed for Pain August 23, 2022 1:00am September 14, 2022 10:24am Start: 08-23-2022 End: 09-14-2022 take 1000 mg by mouth every six hours Acetaminophen Discontinued 1000 MG PO EVERY 6 HOURS August 23, 2022 1:00am September 14, 2022 10:24am Start: 09-11-2018 End: 02-26-2019 Acetaminophen (Tylenol) 325 mg tablet Discontinued 1000 mg PO EVERY 6 HOURS as needed for Pain September 11, 2018 1:00am February 26, 2019 9:51am acetaminophen 325 mg / oxyCODONE hydrochloride 5 mg oral tablet (2 sources) Opioid Agonist Start: 08-10-2022 take 1 tablet by mouth every four hours Oxycodone-Acetaminophen (Percocet) 5-325 mg tablet Active 1 TABLET PO Q4H 30 7 August 10, 2022 bacillus coagulans [id number] unt / inulin 250 mg oral capsule (3 sources) Start: 06-14-2024 take 1 capsule by mouth once daily Bacillus Coagulans-Inulin (Probiotic With Prebiotic) 1 billion-250 cell-mg capsule Active 1 NMA PO DAILY June 14, 2024 12:00am colestipol hydrochloride 1000 mg oral tablet (3 sources) Bile Acid Sequestrant Start: 07-17-2024 Colestipol 1 gram tablet Active 1 g PO daily 02 12July 17, 2024 1:00am escitalopram 20 mg oral tablet (5 sources) Serotonin Reuptake Inhibitor Start: 06-14-2024 Lexapro 20 mg oral tablet Dose : 20 mg = 1 tab(s), Oral, qDay, # 90 tab(s), 3 Refill(s), Pharmacy: [facility], Anxiety, 152, cm, 06/14/24 15:21:00 EDT, Height, kg, 06/14/24 15:21:00 EDT, Dosing Weight Start Date: 06/14/24 Status: Ordered Quantity: 90.0 Unit: tab(s) Repeat number: 4 Indication: Anxiety disorder, unspecified Start: 04-25-2024 take 1 tablet by trell th once daily Escitalopram Oxalate 10 mg tablet Active 10 mg PO DAILY April 25, 2024 12:00am Start: 12-07-2023 End: 03-06-2024 escitalopram 10 mg oral tabl et Dose : 10 mg = 1 tab(s), Oral, qDay, # 30 tab(s), 2 Refill(s), Pharmacy: [facility], 155, cm, 11/09/23 15:29:00 EST, Height, kg, 11/09/23 15:23:00 EST, Dosing Weight Start Date: 12/07/23 Stop Date: 03/06/24 Status: Ordered Ipratropium Antelope 21 mcg ( 0.03 %) spray,non-aerosol (3 sources) Start: 01-03-2025 Ipratropium Br omide 21 mcg (0.03 %) spray,non-aerosol Active 2 NMA INTRANASAL 2 to 3 times per day as needed for postnasal drainage January 03, 2025 12:00am administer into each nostril Start: 01-03-2025 Ipratropium Br omide 21 mcg (0.03 %) spray,non-aerosol Active 2 NMA INTRANASAL 2 to 3 times per day as needed for postnasal drainage January 03, 2025 12:00am administer into each nostril meclizine hydrochloride 25 mg oral tablet (20 sources) Antiemetic Start: 06-01-2022 take 25 mg by mouth twice daily Meclizine Active 25 MG PO TWICE A DAY June 01, 2022 12:00am Start: 10-11-2017 End: 01-11-2018 take 1 tablet by mouth four times daily as needed for dizziness Meclizine 25 MG tablet Discontinued 25 mg PO 4 TIMES DAILY NEEDED as needed for Dizziness 60 4 October 11, 2017 1:00am January 11, 2018 2:36pm omeprazole 40 mg delayed release oral capsule (4 sources) Proton Pump Inhibitor Start: 07-17-2024 take 1 capsule by mouth once daily Omeprazole 40 mg capsule,delayed release(DR/EC) Active 40 mg PO daily 90 2 July 17, 2024 1:00am Start: 05-23-2024 End: 06-22-2024 omeprazole 40 mg oral delaye d release capsule Dose : 40 mg = 1 cap(s), Oral, qDay, # 30 cap(s), 0 Refill(s), Pharmacy: [facility], GERD (gastroesophageal reflux disease), 152.4, cm, 05/23/24 7:30:00 EDT, Height, kg, 05/23/24 7:30:00 EDT, Dosing Weight Start Date: 05/23/24 Stop Date: 06/22/24 Status: Ordered ondansetron 4 mg disintegrating oral tablet (20 sources) Serotonin-3 Receptor Antagonist Start: 08-10-2022 take 4 mg by mouth every eight hours Ondansetron Active 4 MG PO Q8H August 10, 2022 12:00am Start: 05-15-2020 End: 06-10-2020 take 1 tablet by mouth every eight hours as needed for nausea and vomiting Ondansetron Hcl (Zofran) 4 mg tablet Discontinued 4 mg PO Q8H as needed for nausea and vomiting 90 0 May 15, 2020 12:00am June 10, 2020 2:55pm Start: 06-13-2018 End: 09-11-2018 take 1 tablet by mouth every six hours as needed for nausea and vomiting Ondansetron Hcl (Zofran) 4 mg tablet Discontinued 4 mg PO EVERY 6 HOURS as needed for nausea and vomiting 60 3 June 13, 2018 12:00am September 11, 2018 9:00am Completed/Discontinued Medications Medication Drug Class(es) Dates Sig (Normalized) Sig (Original) acetaminophen 250 mg / aspirin 250 mg / caffeine 65 mg oral tablet (1 source) Nonsteroidal Anti-inflammatory Drug, Central Nervous System Stimulant, Methylxanthine Start: 08-22-2014 take 2 tablets by mouth once daily as needed EXCEDRIN MIGRAINE 250-250-65 MG TABS Two tablets by mouth daily as needed for migraines ASPIRIN-ACETAMINO PHEN-CAFFEINE [id number] Naheed Kam DO acetaminophen 500 mg / diphenhydrAMINE hydrochloride 25 mg oral tablet (20 sources) Histamine-1 Receptor Antagonist Start: 10-05-2017 End: 02-20-2018 Diphenhydramine-A cetaminophen 1 EACH tablet Discontinued 1 NMA PO AT BEDTIME as needed for Sleep October 05, 2017 1:00am February 20, 2018 8:34am Start: 10-05-2017 End: 02-20-2018 Diphenhydramine-Acetaminophe n Discontinued 1 EACH PO AT BEDTIME October 05, 2017 1:00am February 20, 2018 8:34am Start: 08-22-2014 End: 03-11-2016 take 2 tablets by mouth once daily as needed TYLENOL PM EXTRA STRENGTH 500-25 MG TABS Two tablets by mouth daily as needed DIPHENHYDRAMINE-APAP (SLEEP) [id number] Cassy Segundo LPN acetaminophen 325 mg / HYDROcodone bitartrate 5 mg oral tablet (20 sources) Opioid Agonist Start: 01-19-2019 End: 01-23-2019 Hydrocodone-Acetaminophen ([place] 5-325 Tablet) 1 EACH tablet Discontinued 1 NMA PO EVERY 4 HOURS NEEDED as needed for Pain 28 4 0 January 19, 2019 12:00am January 22, 2019 12:00am January 23, 2019 12:06am Other acute postprocedural pain amitriptyline hydrochloride 25 mg oral tablet (20 sources) Tricyclic Antidepressant Start: 10-11-2017 End: 01-11-2018 take 2 tablets by mouth at bedtime Amitriptyline 25 MG tablet Discontinued 50 mg PO AT BEDTIME 60 2 October 11, 2017 1:00am January 11, 2018 2:35pm Start: 10-11-2017 End: 01-11-2018 take 50 mg by mouth at bedtime Amitriptyline Discontin ued 50 MG PO AT BEDTIME 60 October 11, 2017 1:00am January 11, 2018 2:35pm amoxicillin 500 mg oral tablet (20 sources) Penicillin-class Antibacterial Start: 12-30-2024 End: 01-09-2025 take 1 tablet by mouth every twelve hours Amoxicillin 500 mg tablet Discontinued 500 mg PO Q12H 20 10 December 30, 2024 12:00am January 08, 2025 12:00am January 09, 2025 12:07am Start: 01-20-2022 End: 01-30-2022 take 2 capsules by mouth twice daily Amoxicillin 500 mg capsule Discontinued 1000 mg PO TWICE A DAY 40 10 January 20, 2022 12:00am January 29, 2022 12:00am January 30, 2022 12:05am Start: 01-20-2022 End: 01-30-2022 take 1000 mg by mouth twice daily Amoxicillin Discontinued 1000 MG PO TWICE A DAY 40 January 20, 2022 12:00am January 30, 2022 12:05am amoxicillin 875 mg / clavulanate 125 mg oral tablet (8 sources) Penicillin-class Antibacterial Start: 04-28-2023 End: 05-08-2023 Amoxicillin-Pot Clavulanate 875-125 mg tablet Discontinued 1 {tbl} PO Q12H 20 10 April 28, 2023 12:00am May 07, 2023 12:00am May 08, 2023 12:03am Acute sinusitis, unspecified Start: 04-28-2023 End: 05-08-2023 take 1 tablet by mouth every twelve hours Amoxicillin-Pot Clavulanate Discontinued 1 TABLET PO Q12H 20 April 28, 2023 12:00am May 08, 2023 12:03am azithromycin 250 mg oral tablet (6 sources) Macrolide Antimicrobial Start: 11-02-2023 End: 04-25-2024 take 2-5 tablets by mouth once daily Azithromycin 250 mg tablet Discontinued 0 PO .COMPLEX 6 November 02, 2023 1:00am April 25, 2024 10:37am take 500 mg today (day 1), then 250 mg for 4 days (days 2-5) PO Start: 04-17-2015 End: 03-11-2016 take 2 tablets by mouth once, then take 1 tablet by mouth once daily, then take 2-5 tablets by mouth AZITHROMYCIN 250 MG TABS 2 po on day 1 then 1 po daily on days 2-5 AZITHROMYCIN [id number] Naheed Kam DO 24 hr buPROPion hydrochloride 150 mg extended release oral tablet (8 sources) Aminoketone Start: 01-21-2023 End: 04-28-2023 take 1 tablet by mouth once daily in the morning Bupropion Hcl (Wellbutrin Xl) 150 mg tablet extended release 24 hr Discontinued 150 mg PO EVERY MORNING January 21, 2023 12:00am April 28, 2023 11:03am busPIRone hydrochloride 15 mg oral tablet (13 sources) Start: 08-26-2022 End: 01-21-2023 take 1 tablet by mouth twice daily Buspirone 15 mg tablet Discontinued 15 mg PO TWICE A DAY 60 3 August 26, 2022 1:00am January 21, 2023 2:49pm ciprofloxacin 500 mg oral tablet (2 sources) Quinolone Antimicrobial Start: 08-22-2014 End: 09-27-2014 take 1 tablet by mouth twice daily CIPROFLOXACIN HCL 500 MG TABS 1 po Twice daily x 3 days CIPROFLOXACIN HCL [id number] Naheed Kam DO citalopram 20 mg oral tablet (20 sources) Serotonin Reuptake Inhibitor Start: 07-06-2021 End: 08-14-2021 take 1 tablet by mouth once daily Citalopram 20 mg tablet Discontinued 20 mg PO DAILY 30 July 06, 2021 12:00am August 14, 2021 2:41pm clindamycin 300 mg oral capsule (20 sources) Lincosamide Antibacterial Start: 10-06-2017 End: 01-11-2018 take 1 capsule by mouth three times daily Clindamycin Hcl 300 MG capsule Discontinued 300 mg PO THREE TIMES A DAY 15 October 06, 2017 1:00am January 11, 2018 2:35pm Start: 02-19-2015 End: 03-11-2016 CLINDAMYCIN PHOSPHATE 1 % GE L apply to affected areas twice daily CLINDAMYCIN PHOSPHATE [id number] Naheed Kam DO cyclobenzaprine hydrochloride 5 mg oral tablet (8 sources) Muscle Relaxant Start: 01-21-2023 End: 04-28-2023 take 1 tablet by mouth three times daily as needed for muscle spasms Cyclobenzaprine 5 mg tablet Discontinued 5 mg PO THREE TIMES A DAY as needed for muscle spasm 30 January 21, 2023 12:00am April 28, 2023 11:04am Desogestrel-Ethinyl Estradiol (20 sources) Progestin, Estrogen Start: 02-09-2019 End: 02-26-2019 Desogestrel-Ethinyl Estradiol (Apri) 0.15-0.03 mg tablet Discontinued 1 TABLET PO daily 84 February 09, 2019 10:07am February 26, 2019 9:51am Start: 02-09-2019 End: 02-26-2019 take 0.15 tablet by mouth once daily Desogestrel-Ethinyl Estradiol (Apri) 0.15-0.03 mg tablet Discontinued 1 {tbl} PO daily 84 February 09, 2019 12:00am February 26, 2019 9:51am Start: 02-09-2019 End: 02-26-2019 take 0.15 tablet by mouth once daily Desogestrel-Ethinyl Estradiol (Apri) 0.15-0.03 mg tablet Discontinued 1 {tbl} PO daily 84 February 09, 2019 12:00am February 26, 2019 9:51am Start: 02-09-2019 End: 02-26-2019 Desogestrel-Ethinyl Estradio l (Apri) 0.15-0.03 mg tablet Discontinued 1 TABLET PO daily February 08, 2019 11:00pm February 26, 2019 8:51am Start: 02-09-2019 End: 02-26-2019 Desogestrel-Ethinyl Estradio l (Apri) 0.15-0.03 mg tablet Discontinued 1 TABLET PO daily February 09, 2019 12:00am February 26, 2019 9:51am 24 hr desvenlafaxine succinate 50 mg extended release oral tablet (18 sources) Serotonin and Norepinephrine Reuptake Inhibitor Start: 11-30-2022 End: 01-21-2023 take 1 tablet by mouth once daily, then take 1 tablet by mouth every twenty-four hours Desvenlafaxine Succinate (Pristiq) 50 mg tablet extended release 24 hr Discontinued 50 mg PO DAILY 03 09November 30, 2022 12:00am January 21, 2023 2:50pm Start: 10-13-2022 End: 01-21-2023 take 1 tablet by mouth once daily, then take 1 tablet by mouth every twenty-four hours Desvenlafaxine Succinate (Pristiq) 25 mg tablet extended release 24 hr Discontinued 25 mg PO DAILY 30 0 October 13, 2022 1:00am January 21, 2023 2:50pm diazePAM 5 mg oral tablet (20 sources) Benzodiazepine Start: 10-06-2017 End: 01-11-2018 take 1 tablet by mouth four times daily as needed for muscle spasms Diazepam 5 MG tablet Discontinued 5 mg PO 4 TIMES DAILY NEEDED as needed for Spasms 20 5 0 October 06, 2017 2:11pm January 11, 2018 2:36pm dicyclomine hydrochloride 10 mg oral capsule (3 sources) Anticholinergic Start: 04-25-2024 End: 06-14-2024 take 1 capsule by mouth twice daily as needed for pain Dicyclomine 10 mg capsule Discontinued 10 mg PO TWICE A DAY as needed for abdominal pain 30 3 April 25, 2024 12:00am June 14, 2024 1:35pm docusate sodium 100 mg oral capsule (20 sources) Start: 10-07-2017 End: 01-11-2018 take 1 capsule by mouth twice daily Docusate Sodium 100 MG capsule Discontinued 100 mg PO TWICE A DAY 60 0 October 07, 2017 1:00am January 11, 2018 2:36pm doxycycline hyclate 100 mg oral capsule (20 sources) Tetracycline-class Drug Start: 05-04-2023 End: 05-14-2023 take 1 capsule by mouth twice daily Doxycycline Hyclate 100 mg capsule Discontinued 100 mg PO TWICE A DAY 20 10 May 04, 2023 12:00am May 13, 2023 12:00am May 14, 2023 12:13am Acute sinusitis, unspecified Start: 04-18-2021 End: 04-28-2021 take 1 capsule by mouth twice daily Doxycycline Hyclate 100 mg capsule Discontinued 100 mg PO TWICE A DAY 20 10 April 18, 2021 12:00am April 27, 2021 12:00am April 28, 2021 12:01am Acute sinusitis, unspecified drospirenone 4 mg oral tablet (20 sources) Progestin Start: 02-10-2022 End: 02-10-2022 take 1 tablet by mouth once daily Drospirenone (Contraceptive) (Slynd) 4 mg (28) tablet Discontinued 1 {tbl} PO DAILY 01 09February 10, 2022 12:00am February 10, 2022 3:25pm Start: 06-16-2021 End: 06-17-2021 take 1 tablet by mouth once daily Drospirenone (Contraceptive) 4 mg (28) tablet Discontinued 4 mg PO DAILY 24 24 June 16, 2021 12:00am June 17, 2021 10:48am DROSPIRENONE-ETHINYL ESTRADIOL TABS (2 sources) Progestin, Estrogen Start: 06-16-2017 End: 06-29-2017 BENSON TABS Once daily DROSPIRENONE-ETHINYL ESTRADIOL TABS [id number] Cindy Vivas NP Start: 06-16-2017 BENSON TABS Once daily DROSPIRENONE-ETHINYL ESTRADIOL TABS [id number] Elsie Newby DC eletriptan 20 mg oral tablet (2 sources) Serotonin-1b and Serotonin-1d Receptor Agonist Start: 10-03-2014 End: 03-11-2016 RELPAX 20 MG TABS 1 po at onset of migraine, may repeat in 2 hours x 1 if no improvement ELETRIPTAN HYDROBROMIDE [id number] Cassy Segundo LPN eluxadoline 75 mg oral tablet (3 sources) mu-Opioid Receptor Agonist Start: 05-17-2024 End: 06-14-2024 take 1 tablet by mouth twice daily at mealtime Eluxadoline (Viberzi) 75 mg tablet Discontinued 75 mg PO TWICE A DAY 60 0 May 17, 2024 12:00am June 14, 2024 1:36pm must administer with a meal/food 168 hr ethinyl estradiol 0.06490 mg/hr / norelgestromin 0.49972 mg/hr transdermal system (20 sources) Progestin, Estrogen Start: 03-24-2018 End: 06-13-2018 Norelgestromin-Et hin.Estradiol (Xulane) 150-35 mcg/24 hr patch weekly Discontinued 1 NMA TD Q7D 12 3 April 07, 2018 9:21am June 13, 2018 10:57am Start: 03-24-2018 End: 06-13-2018 Norelgestromin-Ethin.Estradi ol (Xulane) 150-35 mcg/24 hr patch weekly Discontinued 1 PATCH TD Q7D April 07, 2018 9:21am June 13, 2018 10:57am Norgestimate-Ethinyl Estradiol (20 sources) Progestin, Estrogen Start: 08-21-2020 End: 08-21-2020 take 1 tablet by mouth once daily Norgestimate-Ethinyl Estradiol (Sprintec (28)) 0.25-35 mg-mcg tablet Discontinued 1 TABLET PO daily August 21, 2020 12:20pm August 21, 2020 4:27pm Start: 08-21-2020 End: 08-21-2020 Norgestimate-Ethinyl Estradi ol (Sprintec (28)) 0.25-35 mg-mcg tablet Discontinued 1 {tbl} PO daily August 21, 2020 1:00am August 21, 2020 4:27pm Start: 08-21-2020 End: 08-21-2020 Norgestimate-Ethinyl Estradi ol (Sprintec (28)) 0.25-35 mg-mcg tablet Discontinued 1 {tbl} PO daily August 21, 2020 1:00am August 21, 2020 4:27pm Start: 08-21-2020 End: 08-21-2020 take 1 tablet by mouth once daily Norgestimate-Ethinyl Estradiol (Sprintec (28)) 0.25-35 mg-mcg tablet Discontinued 1 TABLET PO daily August 21, 2020 12:00am August 21, 2020 3:27pm Start: 08-21-2020 End: 08-21-2020 take 1 tablet by mouth once daily Norgestimate-Ethinyl Estradiol (Sprintec (28)) 0.25-35 mg-mcg tablet Discontinued 1 TABLET PO daily August 21, 2020 1:00am August 21, 2020 4:27pm 72 hr fentaNYL 0.012 mg/hr transdermal system (20 sources) Opioid Agonist Start: 10-07-2017 End: 01-11-2018 Fentanyl 12 MCG patch Discontinued 12 ug TRANSDERM. Every 3 Days 5 15 0 October 07, 2017 1:00am January 11, 2018 2:36pm Neoplasm of unspecified behavior of bone, soft tissue, and skin Headache fluconazole 150 mg oral tablet (20 sources) Azole Antifungal Start: 02-13-2021 End: 06-16-2021 take 1 tablet by mouth once Fluconazole (Diflucan) 150 mg tablet Discontinued 150 mg PO ONCE 1 0 February 13, 2021 12:00am June 16, 2021 2:54pm as a single dose Start: 06-09-2020 End: 08-21-2020 Fluconazole (Diflucan) 150 m g tablet Discontinued 150 mg PO Every 3 Days 2 0 0 June 09, 2020 12:00am August 21, 2020 12:21pm Start: 05-06-2020 End: 05-15-2020 Fluconazole 150 mg tablet Di scontinued 150 mg PO .COMPLEX 2 0 May 06, 2020 12:00am May 15, 2020 12:00pm 150 mg PO take one po now and repeat in 3 days Start: 09-22-2017 End: 01-11-2018 Fluconazole 150 MG tablet Di scontinued 150 mg PO .COMPLEX October 05, 2017 9:17am January 11, 2018 2:37pm YEAST INFECTIONS 150 mg PO now, repeat in 72 hours, then once weekly x 6 months gabapentin 100 mg oral capsule (20 sources) Anti-epileptic Agent Start: 10-07-2017 End: 01-11-2018 take 1 capsule by mouth twice daily at mealtime Gabapentin 100 MG capsule Discontinued 100 mg PO TWICE DAILY WITH MEALS 60 30 1 October 07, 2017 1:00am January 11, 2018 2:36pm HYDROmorphone hydrochloride 2 mg oral tablet (20 sources) Opioid Agonist Start: 10-06-2017 End: 01-11-2018 take 2-4 mg by mouth four times daily as needed for pain Hydromorphone 2 MG tablet Discontinued 2 - 4 mg PO 4 TIMES DAILY NEEDED as needed for Pain 40 5 0 October 06, 2017 2:11pm January 11, 2018 2:36pm Neoplasm of unspecified behavior of bone, soft tissue, and skin ibuprofen 800 mg oral tablet (17 sources) Nonsteroidal Anti-inflammatory Drug Start: 08-10-2022 End: 01-21-2023 take 1 tablet by mouth every eight hours as needed for pain Ibuprofen 800 mg tablet Discontinued 800 mg PO Q8H as needed for pain 30 7 0 August 10, 2022 1:00am January 21, 2023 2:50pm Start: 05-06-2017 IBUPROFEN CAPS as directed IBUPROFEN CAPS [id number] Annetta Johansen LPN Lactobacillus Combination No.8 (Adult Probiotic) 3 billion cell capsule (20 sources) Start: 01-11-2018 End: 02-20-2018 take 3 capsules by mouth once daily Lactobacillus Combination No.8 (Adult Probiotic) 3 billion cell capsule Discontinued 3000 MMU CELLS PO daily January 11, 2018 2:37pm February 20, 2018 8:34am Start: 01-11-2018 End: 02-20-2018 take 3 capsules by mouth once daily Lactobacillus Combination No.8 (Adult Probiotic) 3 billion cell capsule Discontinued 3000 NMA PO daily January 11, 2018 12:00am February 20, 2018 8:34am Start: 01-11-2018 End: 02-20-2018 take 3 capsules by mouth once daily Lactobacillus Combination No.8 (Adult Probiotic) 3 billion cell capsule Discontinued 3000 MMU CELLS PO daily January 10, 2018 11:00pm February 20, 2018 7:34am Start: 01-11-2018 End: 02-20-2018 take 3 capsules by mouth once daily Lactobacillus Combination No.8 (Adult Probiotic) 3 billion cell capsule Discontinued 3000 MMU CELLS PO daily January 11, 2018 12:00am February 20, 2018 8:34am LEVONORGEST-ETH ESTRAD 91-DAY (1 source) Start: 06-29-2017 take 1 tablet by mouth once daily CAMRESE 0.15-0.03 &0.01 MG TABS One tablet by mouth daily LEVONORGEST-ETH ESTRAD 91-DAY [id number] Cindy Vivas NP LORazepam 0.5 mg oral tablet (2 sources) Benzodiazepine Start: 08-22-2014 End: 03-11-2016 take 1 tablet by mouth once daily as needed ATIVAN 0.5 MG TABS One tablet by mouth daily as needed LORAZEPAM [id number] Cassy Segundo BROKE BEATER 1 ml medroxyPROGESTERone acetate 150 mg/ml prefilled syringe (20 sources) Progestin Start: 03-05-2020 End: 03-05-2020 inject 150 mg by intramuscular injection once Depo-Provera (medroxyprogestero ne) 150 mg/mL intramuscular syringe Discontinued 150 MG IM ONCE 1 March 05, 2020 3:38pm March 05, 2020 3:54pm Start: 09-17-2019 End: 09-17-2019 inject 150 mg by intramuscular injection once Depo-Provera (medroxyprogesterone) 150 mg/mL intramuscular syringe Discontinued 150 MG IM ONCE September 17, 2019 12:36pm September 17, 2019 12:57pm Start: 06-25-2019 End: 06-25-2019 inject 150 mg by intramuscular injection once Depo-Provera (medroxyprogesterone) 150 mg/mL intramuscular syringe Discontinued 150 MG IM ONCE June 25, 2019 11:35am June 25, 2019 11:57am Start: 02-26-2019 End: 08-21-2020 inject 150 mg by intramuscular injection every three months Medroxyprogesterone (Depo-Provera) 150 mg/mL syringe Discontinued 150 mg IM every 3 months 09 05March 04, 2020 3:28pm May 06, 2020 3:42pm Start: 02-19-2015 End: 03-11-2016 take 1 tablet by mouth once daily MEDROXYPROGESTERONE ACETATE 10 MG TABS 1 po daily x 10 days MEDROXYPROGESTERONE ACETATE [id number] Naheed Kam DO Start: 08-22-2014 End: 02-19-2015 MEDROXYPROGESTERONE ACETATE 150 MG/ML SUSP inject 1 ml IM every 10-12 weeks MEDROXYPROGESTERONE ACETATE [id number] Naheed Kam DO methylPREDNISolone 4 mg oral tablet (20 sources) Corticosteroid Start: 01-03-2025 End: 01-09-2025 take 1 tablet by mouth once Methylprednisolone (Medrol (Sukhdev)) 4 mg tablets,dose pack Discontinued 4 mg PO per package directions January 03, 2025 12:00am January 08, 2025 12:00am January 09, 2025 12:07am Start: 11-02-2023 End: 11-08-2023 take 1 tablet by mouth once Methylprednisolone (Medrol (Sukhdev)) 4 mg tablets,dose pack Discontinued 4 mg PO per package directions November 02, 2023 1:00am November 07, 2023 1:00am November 08, 2023 1:04am Start: 05-04-2023 End: 05-10-2023 take 1 tablet by mouth once Methylprednisolone (Medrol (Sukhdev)) 4 mg tablets,dose pack Discontinued 4 mg PO per package directions 21 6 0 May 04, 2023 12:00am May 09, 2023 12:00am May 10, 2023 12:03am Start: 06-01-2022 End: 06-07-2022 take 1 tablet by mouth once Methylprednisolone (Medrol (Sukhdev)) 4 mg tablets,dose pack Discontinued 4 mg PO per package directions 21 6 0 June 01, 2022 12:00am June 06, 2022 12:00am June 07, 2022 12:03am Start: 04-20-2018 End: 06-13-2018 take 1 tablet by mouth once Methylprednisolone (Medrol (Sukhdev)) 4 mg tablets,dose pack Discontinued 0 PO per package directions 21 April 20, 2018 12:00am June 13, 2018 10:57am PO PER PKG DIR metoclopramide 5 mg oral tablet (3 sources) Dopamine-2 Receptor Antagonist Start: 06-25-2024 End: 07-17-2024 take 1 tablet by mouth twice daily 30 minutes before mealtime Metoclopramide Hcl 5 mg tablet Discontinued 5 mg PO TWICE A DAY 42 0 June 25, 2024 12:00am July 17, 2024 4:12pm administer 30 minutes before meals metroNIDAZOLE 500 mg oral tablet (20 sources) Nitroimidazole Antimicrobial Start: 06-10-2020 End: 06-17-2020 take 1 tablet by mouth every twelve hours Metronidazole (Flagyl) 500 mg tablet Discontinued 500 mg PO Q12H 14 7 0 June 10, 2020 12:00am June 16, 2020 12:00am June 17, 2020 12:03am Start: 08-21-2015 End: 03-11-2016 take 1 tablet by mouth twice daily METRONIDAZOLE 500 MG TABS 1 po twice daily x 7 days METRONIDAZOLE [id number] Naheed Kam DO naproxen 250 mg oral tablet (20 sources) Nonsteroidal Anti-inflammatory Drug Start: 03-09-2018 End: 09-11-2018 take 250-500 mg by mouth every eight hours as needed for pain Naproxen 250 MG tablet Discontinued 250 - 500 mg PO EVERY 8 HOURS NEEDED as needed for MILD PAIN 30 March 09, 2018 12:00am September 11, 2018 8:58am norethindrone acetate 5 mg oral tablet (20 sources) Start: 01-29-2022 End: 02-10-2022 take 1 tablet by mouth twice daily, then take 1 tablet by mouth once daily Norethindrone Acetate (Aygestin) 5 mg tablet Discontinued 5 mg PO .COMPLEX 30 January 29, 2022 12:00am February 10, 2022 3:00pm 5 mg PO BID x 3 days and then once daily for remainder Start: 08-21-2020 End: 08-10-2022 take 1 tablet by mouth once daily Norethindrone (Contraceptive) (Apoorva) 0.35 mg tablet Discontinued 0.35 mg PO daily 84 June 17, 2021 12:00am February 10, 2022 2:59pm start day 1 of menstrual cycle Start: 02-02-2019 End: 02-09-2019 take 1 tablet by mouth once daily Norethindrone (Contraceptive) (Ortho Micronor) 0.35 mg tablet Discontinued 0.35 mg PO DAILY 28 February 02, 2019 12:00am February 09, 2019 10:07am start day 1 of menstrual cycle nystatin 100 unt/mg / triamcinolone acetonide 0.001 mg/mg topical ointment (20 sources) Polyene Antifungal, Corticosteroid Start: 09-20-2017 End: 01-11-2018 Nystatin-Triamcinolone 15 GM ointment Discontinued 1 NMA TOPICAL THREE TIMES A DAY as needed for YEAST INFECTION October 05, 2017 9:17am January 11, 2018 2:36pm Pnv #[id number] Acid-Omega3 30 mg iron-10 mg iron-1 mg capsule (3 sources) Start: 09-11-2018 End: 02-26-2019 Pnv #[id number] Acid-Omega3 30 mg iron-10 mg iron-1 mg capsule Discontinued 1 NMA PO DAILY 0 September 11, 2018 1:00am February 26, 2019 9:51am Start: 09-11-2018 End: 02-26-2019 Pnv #[id number]-[id number] Acid-Omeg a3 30 mg iron-10 mg iron-1 mg capsule Discontinued 1 NMA PO DAILY September 11, 2018 1:00am February 26, 2019 9:51am predniSONE 20 mg oral tablet (20 sources) Start: 04-06-2018 End: 06-13-2018 take 1 tablet by mouth twice daily at mealtime Prednisone 20 MG tablet Discontinued 20 mg PO TWICE A DAY April 06, 2018 12:00am June 13, 2018 10:57am With food vitamin#30 30 mg iron-10 mg iron-folic acid 1 mg-omg3 capsule (17 sources) Start: 09-11-2018 End: 02-26-2019 take 1 capsule by mouth once daily vitamin#30 30 mg iron-10 mg iron-folic acid 1 mg-omg3 capsule Discontinued 1 CAP PO DAILY September 11, 2018 9:01am February 26, 2019 9:51am Start: 09-11-2018 End: 02-26-2019 take 1 capsule by mouth once daily vitamin#30 30 mg iron-10 mg iron-folic acid 1 mg-omg3 capsule Discontinued 1 CAP PO DAILY September 11, 2018 12:00am February 26, 2019 8:51am Start: 09-11-2018 End: 02-26-2019 take 1 capsule by mouth once daily vitamin#30 30 mg iron-10 mg iron-folic acid 1 mg-omg3 capsule Discontinued 1 CAP PO DAILY September 11, 2018 1:00am February 26, 2019 9:51am promethazine hydrochloride 12.5 mg oral tablet (20 sources) Phenothiazine Start: 07-10-2018 End: 09-11-2018 take 1 tablet by mouth every six hours as needed for nausea and vomiting Promethazine 12.5 mg tablet Discontinued 12.5 mg PO EVERY 6 HOURS as needed for nausea and vomiting 120 July 10, 2018 1:00am September 11, 2018 9:00am Start: 10-07-2017 End: 01-11-2018 take 1 tablet by mouth four times daily as needed for nausea Promethazine 25 MG tablet Discontinued 25 mg PO 4 TIMES DAILY NEEDED as needed for Nausea/Vomiting 30 October 07, 2017 1:29pm January 11, 2018 2:36pm raNITIdine 150 mg oral tablet (20 sources) Histamine-2 Receptor Antagonist Start: 07-10-2018 End: 09-11-2018 take 1 tablet by mouth at bedtime Ranitidine Hcl (Zantac) 150 mg tablet Discontinued 150 mg PO AT BEDTIME 60 July 10, 2018 1:00am September 11, 2018 9:00am rifAXIMin 550 mg oral tablet (3 sources) Rifamycin Antibacterial Start: 05-14-2024 End: 06-14-2024 take 1 tablet by mouth three times daily Rifaximin (Xifaxan) 550 mg tablet Discontinued 550 mg PO THREE TIMES A DAY 42 14 2 May 14, 2024 12:00am June 14, 2024 1:36pm rizatriptan 5 mg disintegrating oral tablet (2 sources) Serotonin-1b and Serotonin-1d Receptor Agonist Start: 08-22-2014 End: 09-27-2014 RIZATRIPTAN BENZOATE 5 MG TBDP take 1 tablet under tongue at onset of migraine and may repeat in 2 hours if no improvement RIZATRIPTAN BENZOATE [id number] Naheed Kam, sertraline 50 mg oral tablet (13 sources) Serotonin Reuptake Inhibitor Start: 08-26-2022 End: 10-13-2022 take 1 tablet by mouth once daily Sertraline (Zoloft) 50 mg tablet Discontinued 50 mg PO DAILY 30 August 26, 2022 1:00am October 13, 2022 3:30pm sulfamethoxazole 800 mg / trimethoprim 160 mg oral tablet (13 sources) Dihydrofolate Reductase Inhibitor Antibacterial, Sulfonamide Antimicrobial Start: 08-26-2022 End: 09-14-2022 Sulfamethoxazole- Trimethoprim (Bactrim Ds) 800-160 mg tablet Discontinued 1 {tbl} PO TWICE A DAY 14 August 26, 2022 1:00am September 14, 2022 10:24am SUMAtriptan (20 sources) Serotonin-1b and Serotonin-1d Receptor Agonist Start: 04-06-2018 End: 09-11-2018 Sumatriptan Succinate Discontinued 10 MG PO NEEDED April 06, 2018 6:31am September 11, 2018 9:01am Start: 04-06-2018 End: 09-11-2018 Sumatriptan Succinate Discon tinued 10 mg PO NEEDED as needed for Headache April 06, 2018 12:00am September 11, 2018 9:01am Start: 04-06-2018 End: 09-11-2018 Sumatriptan Succinate Discon tinued 10 MG PO NEEDED April 05, 2018 11:00pm September 11, 2018 8:01am Start: 04-06-2018 End: 09-11-2018 Sumatriptan Succinate Discon tinued 10 MG PO NEEDED April 06, 2018 12:00am September 11, 2018 9:01am terconazole 4 mg/ml vaginal cream (20 sources) Azole Antifungal Start: 01-12-2018 End: 01-19-2018 Terconazole (Terazol 7) 0.4 % cream Discontinued 1 NMA VAGINAL AT BEDTIME 45 7 0 January 12, 2018 12:00am January 18, 2018 12:00am January 19, 2018 12:06am Start: 01-12-2018 End: 01-19-2018 Terconazole (Terazol 7) 0.4 % cream Discontinued 1 APPFUL VAGINAL AT BEDTIME 45 7 January 12, 2018 12:00am January 19, 2018 12:06am topiramate 25 mg oral tablet (20 sources) Anti-epileptic Agent Start: 05-06-2020 End: 07-06-2021 take 1 tablet by mouth once daily Topiramate (Topamax) 25 mg tablet Discontinued 25 mg PO DAILY 30 May 15, 2020 5:53pm July 06, 2021 11:42am Start: 09-20-2017 End: 01-11-2018 take 2 tablets by mouth at bedtime Topiramate (Topamax) 25 mg tablet Discontinued 50 mg PO AT BEDTIME September 20, 2017 1:00am January 11, 2018 2:36pm MIGRAINES Start: 08-22-2014 End: 10-03-2014 take 1 tablet by mouth once daily TOPIRAMATE 50 MG TABS 1 po every night for migraine prevention TOPIRAMATE [id number] Naheed Kam DO tretinoin 0.25 mg/ml topical cream (2 sources) Retinoid Start: 02-19-2015 End: 03-11-2016 TRETINOIN 0.025 % CREA apply to affected areas once daily at bedtime TRETINOIN [id number] Naheed Kam DO valACYclovir 500 mg oral tablet (20 sources) Herpesvirus Nucleoside Analog DNA Polymerase Inhibitor, Herpes Simplex Virus Nucleoside Analog DNA Polymerase Inhibitor, Herpes Zoster Virus Nucleoside Analog DNA Polymerase Inhibitor Start: 08-26-2022 End: 04-25-2024 take 1 tablet by mouth once daily Valacyclovir 500 mg tablet Discontinued 500 mg PO DAILY 90 4 October 03, 2023 1:07pm April 25, 2024 10:42am Cold Sores Start: 08-23-2022 End: 08-26-2022 take 1 tablet by mouth twice daily as needed Valacyclovir 500 mg tablet Discontinued 500 mg PO TWICE A DAY as needed for Cold Sores August 23, 2022 1:00am August 26, 2022 2:59pm Start: 05-06-2020 End: 02-10-2022 take 1 tablet by mouth twice daily as needed Valacyclovir (Valtrex) 500 mg tablet Discontinued 500 mg PO TWICE A DAY as needed for cold sores 20 0 June 19, 2021 1:03pm February 10, 2022 3:01pm Start: 12-11-2018 End: 02-26-2019 take 1 tablet by mouth once daily Valacyclovir (Valtrex) 500 mg tablet Discontinued 500 mg PO DAILY 30 5 December 11, 2018 12:00am February 26, 2019 9:52am Start: 04-20-2018 End: 12-11-2018 take 1 tablet by mouth twice daily Valacyclovir (Valtrex) 500 mg tablet Discontinued 500 mg PO TWICE A DAY 20 0 April 20, 2018 12:00am December 11, 2018 8:23am Start: 09-20-2017 End: 01-11-2018 take 1 tablet by mouth once daily as needed Valacyclovir (Valtrex) 500 mg tablet Discontinued 500 mg PO daily as needed for COLD SORES September 20, 2017 1:00am January 11, 2018 2:37pm ZOLMitriptan 2.5 mg oral tablet (20 sources) Serotonin-1b and Serotonin-1d Receptor Agonist Start: 04-20-2018 End: 09-11-2018 take 1 tablet by mouth once Zolmitriptan (Zomig) 2.5 mg tablet Discontinued 2.5 mg PO ONCE April 20, 2018 12:00am September 11, 2018 9:01am Start: 09-27-2014 End: 10-03-2014 ZOLMITRIPTAN 2.5 MG TBDP 1 p o at onset and may repeat in 2 hours x 1 if no better ZOLMITRIPTAN [id number] Naheed Kam, DO Problems Active Problems Problem Classification Problem Date Documented Da te Episodic/Chronic Abdominal pain (20 sources) Pain in pelvis; Translations: [Generalized abdominal pain] Onset: 09-27-2014 08-21-2015 Episodic Acute bronchitis (11 sources) Acute bronchitis; Translations: [Acute bronchitis, unspecified] 11-02-2023 Episodic Anal and rectal conditions (3 sources) Rectal pain; Translations: [Other specified diseases of anus and rectum] 04-19-2024 Episodic Anxiety disorders (3 sources) Anxiety disorder; Translations: [Anxiety] 08-22-2014 Chronic Blindness and vision defects (20 sources) Blurring of visual image; Translations: [Other visual disturbances] 01-18-2019 Episodic Complications of surgical procedures or medical care (20 sources) Abscess; Translations: [Infection following a procedure, other surgical site, initial encounter] Onset: 08-23-2022 Episodic Contraceptive and procreative management (20 sources) Encounter for surveillance of contraceptive pills; Translations: [Patient encounter status] Onset: 06-29-2017 06-29-2017 Episodic Comment on above: IUD pp Diabetes mellitus without complication (20 sources) Abnormal glucose level; Translations: [Other abnormal glucose] 01-18-2019 Episodic Comment on above: elevated one hour gc t, declines 3 hour, plan home testing. 3hr GTT declined- di d a week's worht of BS logs and all WNL. no diabetes. Diseases of white blood cells (20 sources) Leukocytosis; Translations: [Elevated white blood cell count, unspecified] Chronic Fracture of neck of femur (hip) (20 sources) Fracture of bone of hip region; Translations: [Fracture of unspecified part of neck of unspecified femur, initial encounter for closed fracture] 01-18-2019 Episodic Headache, including migraine (20 sources) Migraine; Translations: [Migraine with aura] Onset: 08-22-2014 08-22-2014 Chronic Headache; including migraine (20 sources) Headache; Translations: [Headache] 01-18-2019 Episodic Inflammatory diseases of female pelvic organs (20 sources) Subacute and chronic vaginitis ; Translations: [Subacute and chronic vaginitis] 01-18-2019 Episodic Comment on above: infectious versus in flammatory, consider intermodal customer service antifungal, discussed avoidance of irritants. may be influenced by depo provera shot. Malaise and fatigue (3 sources) Fatigue; Translations: [Other fatigue] Onset: 09-27-2014 09-27-2014 Episodic Menstrual disorders (20 sources) Amenorrhea; Translations: [Menometrorrhagia] Onset: 02-19-2015 03-03-2015 Chronic Comment on above: change to slynd for 2-3 mo. If persists, consult with for surgical intervention Mood disorders (2 sources) Depressive disorder 01-11-2023 Chronic Mood disorders (20 sources) Mood swings; Translations: [Emotional lability] 07-06-2021 Episodic Nausea and vomiting (3 sources) Nausea; Translations: [Nausea] 07-17-2024 Episodic Neoplasms of unspecified nature or uncertain behavior (20 sources) Neoplasm of bone; Translations: [Neoplasm of unspecified behavior of bone, soft tissue, and skin] 01-18-2019 Episodic Comment on above: 1.5 cm painful submu scular bone lesion right occipital scalp Nonmalignant breast conditions (20 sources) Breast tenderness; Translations: [Pain of breast] Onset: 08-22-2014 08-22-2014 Episodic Nonspecific chest pain (20 sources) Anterior chest wall pain; Translations: [Other chest pain] Episodic Other bone disease and musculoskeletal deformities (20 sources) Segmental and somatic dysfunction; Translations: [Segmental and somatic dysfunction of cervical region] Onset: 06-16-2017 06-16-2017 Episodic Other bone disease and musculoskeletal deformities (20 sources) Bone cyst; Translations: [Other cyst of bone, unspecified site] 02-26-2019 Episodic Comment on above: benign right occipit al bone cyst Other bone disease and musculoskeletal deformities (20 sources) Segmental and somatic dysfunction of cervical region; Translations: [Nonallopathic lesions, cervical region] Onset: 04-04-2025 Episodic Other bone disease and musculoskeletal deformities (20 sources) Segmental and somatic dysfunction of lumbar region; Translations: [Nonallopathic lesions, lumbar region] Onset: 04-04-2025 Episodic Other bone disease and musculoskeletal deformities (20 sources) Segmental and somatic dysfunction of thoracic region; Translations: [Nonallopathic lesions, thoracic region] Onset: 04-04-2025 Episodic Other complications of (20 sources) Anemia of ; Translations: [Anemia complicating , unspecified trimester] 02-26-2019 Chronic Comment on above: check Hg at 36 weeks Other complications of (20 sources) Uterine size for dates discrepancy; Translations: [Uterine size-date discrepancy, third trimester] 02-26-2019 Episodic Comment on above: growth us ordered Other female genital disorders (8 sources) Jovani; Translations: [Ximermarko] 01-21-2023 Chronic Other female genital disorders (2 sources) Other specified noninflammatory disorders of vagina; Translations: [Other specified noninflammatory disorders of vagina] Onset: 09-20-2024 Episodic Other gastrointestinal disorders (2 sources) Irritable bowel syndrome 05-23-2024 Chronic Other gastrointestinal disorders (1 source) Irritable bowel syndrome without diarrhea; Translations: [Irritable bowel syndrome, unspecified] Onset: 07-11-2024 Chronic Other gastrointestinal disorders (1 source) Abdominal bloating 05-30-2024 Episodic Other gastrointestinal disorders (4 sources) Diarrhea; Translations: [Diarrhea, unspecified] 05-30-2024 Episodic Other infections; including parasitic (20 sources) History of sexually transmitted disease; Translations: [Personal history of other infectious and parasitic diseases] 05-06-2020 Episodic Other injuries and conditions due to external causes (20 sources) H/O: hip fracture; Translations: [Personal history of (healed) traumatic fracture] 02-26-2019 Episodic Comment on above: discussed and still recommend Other nervous system disorders (20 sources) Argueta's palsy; Translations: [Argueta's palsy] 01-18-2019 Episodic Other nervous system disorders (20 sources) Trigeminal nerve disorder; Translations: [Disorder of trigeminal nerve, unspecified] 01-18-2019 Episodic Other nervous system disorders (20 sources) Eyelid finding; Translations: [Fasciculation] 01-18-2019 Episodic Other nervous system disorders (14 sources) Postoperative pain ; Translations: [Other acute postprocedural pain] 08-23-2022 Episodic Other nervous system disorders (11 sources) Other acute postprocedural pain; Translations: [Other acute postoperative pain] Episodic Other nutritional; endocrine; and metabolic disorders (20 sources) Overweight in adulthood with body mass index of 25 or more but less than 30; Translations: [Body mass index (BMI) 28.0-28.9, adult] 09-16-2021 Episodic Other and delivery including normal (20 sources) Normal ; Translations: [Encounter for supervision of normal , unspecified, unspecified trimester] 02-26-2019 Episodic Comment on above: PRR MAEVE 01/15/19 girl Barbara Holder nipt and NTD screeni ng nl. carrier screening declined. anatomy scan reviewed. Other upper respiratory infections (20 sources) Acute maxillary sinusitis; Translations: [Acute maxillary sinusitis, unspecified] Onset: 04-17-2015 04-17-2015 Episodic Otitis media and related conditions (20 sources) Dysfunction of eustachian tube; Translations: [Other specified disorders of Eustachian tube, left ear] Episodic Ovarian cyst (20 sources) Cyst of ovary; Translations: [Unspecified ovarian cyst, unspecified side] Episodic Comment on above: rpt US 6-8 wk Residual codes; unclassified (14 sources) Past history of procedure; Translations: [Personal history of other specified conditions] 06-18-2022 Episodic Residual codes; unclassified (7 sources) Personal history of other specified conditions; Translations: [Other specified personal history presenting hazards to health] Episodic Residual codes; unclassified (9 sources) Acquired absence of both cervix and uterus; Translations: [Acquired absence of both cervix and uterus] Episodic Residual codes; unclassified (2 sources) FH: Thyroid disorder 01-11-2023 Episodic Residual codes; unclassified (3 sources) H/O: breast problem; Translations: [Personal history of other specified conditions] 06-18-2022 Episodic Spondylosis; intervertebral disc disorders; other back problems (15 sources) Low back pain; Translations: [Dorsalgia, unspecified] Onset: 05-06-2017 05-06-2017 Episodic Thyroid disorders (20 sources) Goiter; 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 Suppressive valtrex 36 weeks Viral infection (20 sources) Disease caused by 2019-nCoV; Translations: [COVID-19] 02-10-2022 Episodic Past or Other Problems Problem Classification Problem Date Documented Da te Episodic/Chronic Genitourinary symptoms and ill-defined conditions (6 sources) Urgent desire to urinate; Translations: [Proteinuria] Onset: 08-22-2014 08-22-2014 Episodic Immunizations and screening for infectious disease (20 sources) Contact with and (suspected) exposure to other viral communicable diseases; Translations: [Contact with or suspected exposure to other viral communicable disease] Onset: 09-20-2024 Episodic Lymphadenitis (1 source) Cervical lymphadenopathy; Translations: [Localized enlarged lymph nodes] Onset: 03-11-2016 Resolved: 03-25-2016 03-11-2016 Episodic Other female genital disorders (2 sources) Vaginal irritation; Translations: [Vaginal discharge] Onset: 08-22-2014 06-29-2017 Episodic Other gastrointestinal disorders (1 source) Hemorrhagic diarrhea ; Translations: [Diarrhea, unspecified] Onset: 09-27-2014 09-27-2014 Episodic Other gastrointestinal disorders (1 source) Diarrhea, unspecified; Translations: [Diarrhea, unspecified] Onset: 07-12-2024 Episodic Other lower respiratory disease (1 source) Shortness of breath; Translations: [Shortness of breath] Onset: 01-10-2025 Episodic Other screening for suspected conditions (not mental disorders or infectious disease) (20 sources) Patient encounter status; Translations: [Encounter for screening, unspecified] Onset: 07-09-2024 06-17-2022 Episodic Comment on above: NIPT low risk. AFP n egative. Gender was placed in envelope. Other skin disorders (1 source) Acne; Translations: [Acne, unspecified] Onset: 02-19-2015 03-03-2015 Episodic Residual codes; unclassified (2 sources) Other general symptoms and signs; Translations: [Other general symptoms and signs] Onset: 05-23-2024 Episodic Residual codes; unclassified (1 source) Flushing; Translations: [Flushing] Onset: 09-10-2024 Episodic Unclassified (20 sources) lumpectomy back of head 01-18-2019 Unclassified (17 sources) Normal labor; Translations: [Active labor at term] 11-03-2020 Results Test Name Value Interpretation Reference Range Facility CBC, Employeeon 04-26-2025 Absolute Lymph 2.79 X10 3/uL Normal 0.83-4.51 [facility] Comment on above: Performed By: #### L 100.0200, L500.2900, L400.0100 ####[facility] [address] [place], [address] Absolute Neut 5.3 X10 3/uL Normal 2.0-7.7 [facility] Comment on above: Performed By: #### L 100.0200, L500.2900, L400.0100 ####[facility] [address] [place], [address] Basophils/100 WBC (Bld) 0.5 % Normal 0-1 [facility] Comment on above: Performed By: #### L 100.0200, L500.2900, L400.0100 ####[facility] [address] [place], [address] Eosinophils/100 WBC (Bld) 1.6 % Normal 0-5 [facility] Comment on above: Performed By: #### L 100.0200, L500.2900, L400.0100 ####[facility] [address] [place], [address] Erythrocyte distribution width (RBC) [Ratio] 12.2 % Normal 11.6-14.6 [facility] Comment on above: Performed By: #### L 100.0200, L500.2900, L400.0100 ####[facility] [address] [place], [address] Hematocrit (Bld) [Volume fraction] 42.6 % Normal 37-47 [facility] Comment on above: Performed By: #### L 100.0200, L500.2900, L400.0100 ####[facility] [address] [place], [address] Hemoglobin (Bld) [Mass/Vol] 13.7 g/dL Normal 12.0-15.0 [facility] Comment on above: Performed By: #### L 100.0200, L500.2900, L400.0100 ####[facility] [address] [place], [address] Lymphocytes/100 WBC (Bld) 31.4 % Normal 19-41 [facility] Comment on above: Performed By: #### L 100.0200, L500.2900, L400.0100 ####[facility] [address] [place], [address] MCH (RBC) [Entitic mass] 26.6 pg Low 27.0-32.0 [facility] Comment on above: Performed By: #### L 100.0200, L500.2900, L400.0100 ####[facility] [address] [place], [address] MCHC (RBC) [Mass/Vol] 32.2 g/dL Normal 32-36 [facility] Comment on above: Performed By: #### L 100.0200, L500.2900, L400.0100 ####[facility] [address] [place], [address] MCV (RBC) [Entitic vol] 82.7 fL Normal 81-99 [facility] Comment on above: Performed By: #### L 100.0200, L500.2900, L400.0100 ####[facility] [address] [place], [address] Monocytes/100 WBC (Bld) 6.4 % Normal 0-10 [facility] Comment on above: Performed By: #### L 100.0200, L500.2900, L400.0100 ####[facility] [address] [place], [address] Neutrophils/100 WBC (Bld) 59.9 % Normal 47-70 [facility] Comment on above: Performed By: #### L 100.0200, L500.2900, L400.0100 ####[facility] [address] [place], [address] NRBC # 0.00 10 3/uL Normal 0-5 [facility] Comment on above: Performed By: #### L 100.0200, L500.2900, L400.0100 ####[facility] [address] [place], [address] Nucleated RBC (Bld) [#/Vol] 0 10*3/uL Normal 0-5 [facility] Comment on above: Performed By: #### L 100.0200, L500.2900, L400.0100 ####[facility] [address] [place], [address] Platelet mean volume (Bld) [Entitic vol] 10.8 fL Normal 6.2-12.0 [facility] Comment on above: Performed By: #### L 100.0200, L500.2900, L400.0100 ####[facility] [address] [place], [address] Platelets (Bld) [#/Vol] 204 10*3/uL Normal 150-450 [facility] Comment on above: Performed By: #### L 100.0200, L500.2900, L400.0100 ####[facility] [address] [place], [address] RBC (Bld) [#/Vol] 5.15 10*6/uL Normal 4.2-5.4 [facility] Comment on above: Performed By: #### L 100.0200, L500.2900, L400.0100 ####[facility] [address] [place], [address] RDW SD 37.3 fl Normal 35.1-43.9 [facility] Comment on above: Performed By: #### L 100.0200, L500.2900, L400.0100 ####[facility] [address] [place], [address] WBC (Bld) [#/Vol] 8.9 10*3/uL Normal 4.4-11.0 [facility] Comment on above: Performed By: #### L 100.0200, L500.2900, L400.0100 ####[facility] [address] [place], [address] Employee Profileon LDH 167 U/L Normal 84-246 [facility] Comment on above: Performed By: #### L 100.0200, L500.2900, L400.0100 ####[facility] [address] [place], [address] Phosphate [Mass/Vol] 3.5 mg/dL Normal 2.7-4.5 [facility] Comment on above: Performed By: #### L 100.0200, L500.2900, L400.0100 ####[facility] [address] [place], [address] URIC 4.6 mg/dL Normal 2.6-6.0 [facility] Comment on above: Result Comment: The drugs N-Acetylcysteine and Metamizole may falsely depress this assay. Performed By: #### L 100.0200, L500.2900, L400.0100 ####[facility] [address] [place], [address] Urinalysis, Employeeon 04-26 BILIRUBIN URINE Negative Normal Negative [facility] Comment on above: Order Comment: Urine , Random Performed By: #### L 100.0200, L500.2900, L400.0100 ####[facility] [address] [place], [address] Clarity (U) Sl. Cloudy Normal Clear [facility] Comment on above: Order Comment: Urine , Random Performed By: #### L 100.0200, L500.2900, L400.0100 ####[facility] [address] [place], [address] Color (U) Yellow Normal Yellow [facility] Comment on above: Order Comment: Urine , Random Performed By: #### L 100.0200, L500.2900, L400.0100 ####[facility] [address] [place], [address] GLUCOSE, UR Normal Normal Normal [facility] Comment on above: Order Comment: Urine , Random Performed By: #### L 100.0200, L500.2900, L400.0100 ####[facility] [address] [place], [address] KETONE UR 5 mg/dl Abnormal Negative [facility] Comment on above: Order Comment: Urine , Random Performed By: #### L 100.0200, L500.2900, L400.0100 ####[facility] [address] [place], [address] LEUK ESTERASE Negative Normal Negative [facility] Comment on above: Order Comment: Urine , Random Performed By: #### L 100.0200, L500.2900, L400.0100 ####[facility] [address] [place], [address] Nitrite Ql (U) Negative Normal Negative [facility] Comment on above: Order Comment: Urine , Random Performed By: #### L 100.0200, L500.2900, L400.0100 ####[facility] [address] [place], [address] OCCULT BLOOD-UR 50 /ul Abnormal Negative [facility] Comment on above: Order Comment: Urine , Random Performed By: #### L 100.0200, L500.2900, L400.0100 ####[facility] [address] [place], [address] pH UR 6.0 Normal 5.0 - 8.0 [facility] Comment on above: Order Comment: Urine , Random Performed By: #### L 100.0200, L500.2900, L400.0100 ####[facility] [address] [place], [address] PROT DIPSTX 30 mg/dl Abnormal Negative [facility] Comment on above: Order Comment: Urine , Random Performed By: #### L 100.0200, L500.2900, L400.0100 ####[facility] [address] [place], [address] SP.GR. DIPSTX 1.025 Normal 1.002-1.030 [facility] Comment on above: Order Comment: Urine , Random Performed By: #### L 100.0200, L500.2900, L400.0100 ####[facility] [address] [place], [address] UROBILI Normal Normal Normal [facility] Comment on above: Order Comment: Urine , Random Performed By: #### L 100.0200, L500.2900, L400.0100 ####[facility] [address] [place], [address] Chiropractic Reporton 2024 Chiropractic Report [facility] [address] [place] [address] OFFICE VISIT Date of Service: 04/04/25 MR#: [id number] Acct: [id number] Name: BARBARA QUINTANILLA Rep #: [id number] : 1990 Provider: JENNIFER Key Age/Sex: 34/F Location[facility] Status: Signed Intake Vital Signs 03/14/25 15:16 Height 4 ft 11 in Weight: 131 lb BMI 26.4 BP 108/68 Intake Visit Reasons: BACK PAIN Chief Complaint: neck, low back Allergies hydromorphone (From Dilaudid) Adverse Reaction (Verified 04/04/25 14:56) Other oxycodone (From Percocet) Adverse Reaction (Verified 04/04/25 14:56) Nausea Medications ???Medication ???Instructions ???Recorded ???Confirmed ???Type escitalopram oxalate 10 mg tablet 10 mg PO DAILY 04/25/24 04/04/25 History valacyclovir 500 mg tablet 500 mg PO DAILY PRN Cold Sores 04/04/25 History Bacillus coagulans-inulin 1 1 cap PO DAILY 06/14/24 04/04/25 H istory billion cell-250 mg capsule (Probiotic with Prebiotic) colestipol 1 gram tablet 1 g PO QDAY #30 tabs 07/17/2403/07 Rx omeprazole 40 mg capsule,delayed 40 mg PO QDAY #90 caps 07/17/24 Rx release ipratropium bromide 21 mcg (0.03 2 spray intranasal BID-TID PRN 09/2904/04/25 Rx %) nasal spray postnasal drainage #30 mL PFSH Medical History Wears glasses Wears contact lenses Heartburn Breast mass, left Abnormal mammogram of left breast COVID-19 Mass of head Anxiety and depression Frequent headaches Surgical History Status post hysterectomy History of section History of dilation and curettage lumpectomy back of head Family History Father Diabetes Hypertension Mother Hypertension Social History Smoking Status: Never smoker alcohol intake: current alcohol intake frequency: holidays/special occasions only details: pre- substance use type: does not use caffeine: Yes what type of physical activity do you participate in: walking and other details: cardio frequency: 5-6 times per week seatbelt use: always do you feel safe at home: Yes additional social history: [place] Patient works at [employer] HPI BACK PAIN Chief Complaint: neck and low back discomfort Visit Number: 2 Details: Barbara Quintanilla a 34 year old female presents for follow up on neck, mid, and low back pain. She reports her neck pain and stiffness has improved since her last adjustment. She does c/o frequent headaches. She also complains of low back achiness today. She stretches at home to ease her stiffness and stay flexible. She denies new injury, numbness, tingling or radiculopathy. She states previous chiropractic adjustments are helpful to relieve her pain and discomfort. Location: neck, low back Duration: intermittent Aggravating or associated factors: bending, lifting, ADL's Relieving factors: chiro Pain Quality: aching and dull Exam Musc General: Yes normal posture, normal gait and joint tenderness; No decreased range of motion Cervical Spine: Yes loss of normal cervical lordosis, Yes cervical muscular tenderness bilateral diffuse , Yes cervical spasm bilateral lower trapezius and paracervical muscles and Yes misalignment misalignment: C5, C6 and C7 Thoracic/Lumber: No thoracic and lumbar spine normal to inspection (anterior head carriage), Yes paraspinal tenderness bilaterally in the upper thoracic, in the mid thoracic and in the lower lumbar, Yes thoraco-lumbar spasm bilaterally in the upper thoracic, in the mid thoracic (trap) and in the lower lumbar (QL) and Yes misalignment T1, T2, T6, T7, T8, L3, L4 and L5 Office Procedures Procedures - Chiropractic Procedures Manipulation: Cervical C6, Lumbar L3 and L5 and Thoracic T3 and T7 Manipulation: 3-4 regions Electronic Stimulation: Yes Electrical Stimulation: Cervical 15 mins (13) mA and Lumbar 15 mins (13) mA Therapy Performed by:: Ny Lara Traction, Mechanical: Yes Patient Response: positive Assessment and Plan Assessment and Plan (1) Segmental and somatic dysfunction of cervical region: Status: Acute (2) Segmental and somatic dysfunction of lumbar region: Status: Acute (3) Segmental and somatic dysfunction of thoracic region: Status: Acute Orders: Orders Chiropractic Treatments Today M99.01 - Segmental and somatic dysfunction of cervical region, M99.02 - Segmental and somatic dysfunction of thoracic region, M99.03 - Segmental and somatic dysfunction of lumbar region Plan Patient was treated without incident. She is showing improvement, continue care at lesser frequency. Plan Details Goals Bar (more content not included)... Normal [facility] Chiropractic Reporton 2024 Chiropractic Report [facility] [place] [address] OFFICE VISIT Date of Service: 03/14/25 MR#: [id number] Acct: [id number] Name: BARBARA QUINTANILLA Rep #: [id number] : 1990 Provider: JENNIFER Key Age/Sex: 34/F Location: [facility] Status: Signed Intake Vital Signs 02/19/25 13:10 03/14/25 15:16 Height 4 ft 11 in 4 ft 11 in Weight: 131 lb BMI 26.4 BP 108/68 Intake Visit Reasons: REEVAL Chief Complaint: neck, low back Is patient in pain?: Yes (neck, low back ) Pain scale (1-10): 4 Allergies hydromorphone (From Dilaudid) Adverse Reaction (Verified 03/14/25 15:17) Other oxycodone (From Percocet) Adverse Reaction (Verified 03/14/25 15:17) Nausea Medications ???Medication ???Instructions ???Recorded ???Confirmed ???Type escitalopram oxalate 10 mg tablet 10 mg PO DAILY 04/25/24 03/14/25 History valacyclovir 500 mg tablet 500 mg PO DAILY PRN Cold Sores 03/14/25 History Bacillus coagulans-inulin 1 1 cap PO DAILY 06/14/24 03/14/25 H istory billion cell-250 mg capsule (Probiotic with Prebiotic) colestipol 1 gram tablet 1 g PO QDAY #30 tabs 07/17/2403/05 Rx omeprazole 40 mg capsule,delayed 40 mg PO QDAY #90 caps 07/17/24 Rx release ipratropium bromide 21 mcg (0.03 2 spray intranasal BID-TID PRN 09/2903/14/25 Rx %) nasal spray postnasal drainage #30 mL PFSH Medical History Wears glasses Wears contact lenses Heartburn Breast mass, left Abnormal mammogram of left breast COVID-19 Mass of head Anxiety and depression Frequent headaches Surgical History Status post hysterectomy History of section History of dilation and curettage lumpectomy back of head Family History Father Diabetes Hypertension Mother Hypertension Social History Smoking Status: Never smoker alcohol intake: current alcohol intake frequency: holidays/special occasions only details: pre- substance use type: does not use caffeine: Yes what type of physical activity do you participate in: walking and other details: cardio frequency: 5-6 times per week seatbelt use: always do you feel safe at home: Yes additional social history: [employer] Patient works at [employer] REEVAL Chief Complaint: Neck/Back pain Visit Number: 1 Details: Barbara Quintanilla a 34 year old female presents for reevaluation of neck, mid, and low back pain. She complains of neck pain and stiffness that is giving her daily headaches, this radiates into her shoulders. She also complains of low back pain that radiates into her hips bilaterally and she feels as if her hips are out of alignment. She rates her pain 4/10. She felt the pain gradually return recently and feels like she needs an adjustment. She denies new injury, numbness, tingling or radiculopathy. She states previous chiropractic treatments have been helpful in the past . Location: neck/low back Duration: frequent Aggravating or associated factors: bending, lifting,ADLs Relieving factors: chiro Pain Quality: aching and dull Exam Musc General: Yes normal posture, normal gait and joint tenderness; No decreased range of motion Cervical Spine: Yes loss of normal cervical lordosis, Yes cervical muscular tenderness bilateral lower , Yes pain with cervical ROM with lateral flexion to right, with lateral flexion to left and with anterior flexion, Yes cervical spasm bilateral lower trapezius and paracervical muscles and Yes misalignment misalignment: C5, C6 and C7 Thoracic/Lumber: No thoracic and lumbar spine normal to inspection (anterior head carriage), Yes Lasegue's sign negative, Yes straight leg raise negative bilaterally, Yes pain with thoraco-lumbar ROM with forward flexion, Yes paraspinal tenderness bilaterally in the upper thoracic, in the mid thoracic and in the lower lumbar, No thoraco-lumbar ROM limited, Yes thoraco-lumbar spasm bilaterally in the upper thoracic, in the mid thoracic (trap) and in the lower lumbar (QL) and Yes misalignment T1, T2, T6, T7, T8, L4 and L5 Neuro General: patient alert, patient awake, patient oriented x3, normal light touch, pain and propioception and no focal motor deficits Cranial Nerves: CN's II-XI intact bilaterally Cognition: normal cognition Speech: speech normal Gait: normal gait Motor: muscle tone normal throughout Sensory Exam: no sensory deficits noted Ortho Test CERVICAL Compression pain: Negative Distraction pain: relief Stanley's pain: Negative Valsalvas: Negative Shoulder depression pain: Right (+bilaterally) THORACIC Kemps: Negative LUMBAR Ke (more content not included)... Normal [facility] Office Visit Reporton 2024 Office Visit Report [facility] [address] [place] [address] OFFICE VISIT Date of Service: 01/03/25 MR#: [id number] Acct: [id number] Patient: BARBARA QUINTANILLA Rep #: [id number] : 1990 Provider: CLEVE Swartz Age/Sex: 34/F Location[facility] Status: Signed Intake Vital Signs 12/30/24 11:15 Height 4 ft 11 in Intake Visit Reasons: EMPLOYEE COVID/ [facility] Chief Complaint: chest congest, mucus, WRIGHT, ST Allergies hydromorphone (From Dilaudid) Adverse Reaction (Verified 01/03/25 10:57) Other oxycodone (From Percocet) Adverse Reaction (Verified 01/03/25 10:57) Nausea Office Procedures [facility] Billing Sheet Covid Covid Swab-Rapid: Yes Results POC CEPH COV,FluAB,RSV PCR CEPHEID COVID PCR Not DETECTED Last Edit by Alyson Rodrigez on 01/03/25 11:34 CEPHEID FLU AB PCR NOT DETECTED FLU A B Last Edit by Alyson Rodrigez on 01/03/25 11:34 CEPHEID RSV PCR NOT DETECTED Last Edit by Alyson Rodrigez on 01/03/25 11:34 Assessment and Plan Plan Details Goals Barriers: Goals Decrease pain and spasm Improve ROM Improve lordosis 02/21/25 0811 Date Luis Armando Scherer PA PA Cosigner Signature: Date (if applicable) CC: Normal [facility] Chest PA and Lateralon 01-07 Chest PA and Lateral [facility] [address] [place], [place] [address] [address] Chest PA and Lateral MR#: [id number] Acct: [id number] Name: BARBARA QUINTANILLA Rep #: [id number] : 1990 F 34 From: Rayo Feliciano PCP: Stephanie Kramer, KIA-C Status: REG CLI Study: Chest PA and Lateral Date of Exam: 01/07/25 Exam# [id number] Ordering Dr: Stephanie Kramer NP ACCOUNTING CLERKS SUPERVISOR-Orquidea PROCEDURE: CHEST PA AND LATERAL 01/07/2025 REASON FOR EXAM: SOB, RESPIRATOY ILLNESS TECHNIQUE: Frontal and lateral views of the chest. COMPARISON: Chest x-ray of 03/12/2021. RAD/Chest PA and Lateral IMPRESSION: Lungs appear clear throughout. No pleural effusion or pneumothorax is noted. The cardiomediastinal silhouette is within the normal range. Mild degenerative changes of the thoracic spine are seen. No acute osseous changes seen. No evidence of acute cardiopulmonary disease. Reading Location: [place] [address] CC: ACCOUNTING CLERKS SUPERVISOR-C Stephanie Kramer Bench Machine Operator: Signed Normal [facility] Laboratory - Microbiology an d Antimicrobial susceptibilityOrdered By: Luis Armando Scherer on 01-03-2025 SARS-CoV-2 (COVID-19) RNA VON+probe Ql (Unsp spec) Not detected [facility] No Panel InformationOrdered By: Luis Armando Scherer on 01-03-2025 POC Nasal Swab Influenza A,B Not detected [facility] POC Nasal Swab RSV Not detected [facility] Office Visit Reporton 2024 Office Visit Report [facility] [address] [place] [address] OFFICE VISIT Date of Service: 01/03/25 MR#: [id number] Acct: [id number] Patient: BARBARA QUINTANILLA Rep #: [id number] : 1990 Provider: CLEVE Swartz Age/Sex: 34/F Location: [facility] Status: Signed Employer Purchased Covid Test Note: Patient here today for Covid Testing, requested by their Employer. Assessment and Plan Assessment and Plan Orders: Orders POC Cepheid Covid, FluAB, RSV Today Medications: New ipratropium bromide administer into each nostril 2 sprays intranasal BID-TID PRN 30 mL 0RF postnasal drainage methylprednisolone (Medrol (Sukhdev)) 4 mg PO PER PKG DIR 21 tabs 0RF 6 days Plan Details Goals Barriers: Goals Decrease pain and spasm Improve ROM Improve lordosis 01/03/25 1156 Date Luis Armando Villegasigner Signature: Date (if applicable) CC: Normal [facility] Urgent Care Visit Reporton 0 01-03-2025 Urgent Care Visit Report [facility] [address], [address] [place] [address] OFFICE VISIT Date of Service: 01/03/25 MR#: [id number] Acct: [id number] Name: BARBARA QUINTANILLA Rep #: [id number] : 1990 Provider: CLEVE Swartz Age/Sex: 34/F Location: [facility] Status: Signed Intake Vital Signs 12/30/24 11:15 01/03/25 10:56 Height 4 ft 11 in BP 100/60 Blood Pressure Location Lt brachial Position Sitting Respiration 14 Pulse 70 Pulse Source NIBP Temp 98.1 F Temp Source Oral Pulse Oximetry (%) 98 Oxygen Delivery Method room air Intake Visit Reasons: CONGESTION Chief Complaint: chest congest, mucus, WRIGHT, ST Mandrel Maker Required: No Is patient in pain?: No Allergies hydromorphone (From Dilaudid) Adverse Reaction (Verified 01/03/25 10:57) Other oxycodone (From Percocet) Adverse Reaction (Verified 01/03/25 10:57) Nausea Is last menstrual period known: No Post menopausal: No Patient : No Have you fallen in the past year?: No Nurse's Note: chest congest, mucus, WRIGHT, ST x 48 hours. seen here 12/[address], congestion and was negative for strep--given Amox bid. pt denies fever PFSH Medical History (Updated 01/03/25 @ 11:20 by Luis Armando POON, CLEVE) Wears glasses Wears contact lenses Heartburn Breast mass, left Abnormal mammogram of left breast COVID-19 Mass of head Anxiety and depression Frequent headaches Surgical History Status post hysterectomy History of section History of dilation and curettage lumpectomy back of head Family History Father Diabetes Hypertension Mother Hypertension Social History Smoking Status: Never smoker alcohol intake: current alcohol intake frequency: holidays/special occasions only details: pre- substance use type: does not use caffeine: Yes what type of physical activity do you participate in: walking and other details: cardio frequency: 5-6 times per week seatbelt use: always do you feel safe at home: Yes additional social history: Gallo Patient works at [employer] History Menstrual Ab induced: 1 HPI HPI Chief Complaint: chest congest, mucus, WRIGHT, ST Details: BARBARA QUINTANILLA, is a 34 F who presents to the office today for complaint of ongoing sore throat and ear pain with new onset of chest congestion and mucus. Patient denies fever, chills or sweats. No nausea, vomiting or diarrhea. No hemoptysis, shortness of breath or difficulty breathing. Patient was here 5 days ago and started on amoxicillin for sore throat and ear pain. No other associated symptoms or alleviating/aggravatin g factors. ROS Const Constitutional: No other (6 system ROS completed with pertinent findings in the HPI otherwise normal.) Exam Const General: cooperative and well developed HENMT Head: normal to inspection and atraumatic Ears: hearing grossly normal bilaterally Nose: nasal discharge clear Face and sinus: normal facial exam Mouth: oral mucosae normal Throat: abnormal tonsil bilaterally hypertrophy 1+ Resp Effort Inspection: normal respiratory effort and no audible wheezes Auscultation: Bilateral: Clear to Auscultation Cardio Palpation: normal PMI Rate: regular rate Rhythm: regular rhythm Neuro General: patient alert and CN's II-XI intact bilaterally Psych Appearance: grossly normal Mental Status: mental status grossly normal Results POC CEPH COV,FluAB,RSV PCR CEPHEID COVID PCR Not DETECTED Last Edit by Alyson Rodrigez on 01/03/25 11:34 CEPHEID FLU AB PCR NOT DETECTED FLU A B Last Edit by Alyson Rodrigez on 01/03/25 11:34 CEPHEID RSV PCR NOT DETECTED Last Edit by Alyson Rodrigez on 01/03/25 11:34 Coding Level of Care Code Off vis,est,level 3 Diagnoses Acute bronchitis J20.9 Assessment and Plan Assessment and Plan (1) Acute bronchitis: Status: Acute Plan: Patient tested negative for COVID, influenza, RSV in the office today. Atrovent and Medrol Dosepak as prescribed today. Encouraged to get plenty of rest, drink lots of clear liquids, and use Tylenol or Ibuprofen (unless contraindicated) for fever and comfort. Patient also educated on other symptomatic management techniques. To be seen in 7-10 days if no improvement; sooner if worsening of symptoms. Patient advised of potential red flags and when appropriate to report to the ED. Patient verbalized understanding and agreement with all the above. Orders: Orders POC Cepheid Covid, FluAB, RSV Today Medications: New ipratropium bromide administer into each nostril 2 sprays intranasal BID-TID PRN 30 mL 0RF postnasal drainage methylprednisolon (more content not included)... Normal [facility] Rapid group A Streptococcus antigen assay at point of careOrdered By: Solomon Luz on 12-30-2024 S. pyogenes Ag IA.rapid Ql (Throat) Negative [facility] Urgent Care Visit Reporton 0 12-30-2024 Urgent Care Visit Report [facility] [address] , [address] [place] [address] OFFICE VISIT Date of Service: 12/30/24 MR#: [id number] Acct: [id number] Name: BARBARA QUINTANILLA Rep #: [id number] : 1990 Provider: CHARLY thomas Age/Sex: 34/F Location: [facility] Status: Signed Intake Vital Signs 07/23/24 14:30 12/30/24 11:15 12/30/24 11:34 Height 4 ft 11 in 4 ft 11 in BP 100/60 Position Sitting Pulse 80 Temp 98.8 F Temp Source Oral Pulse Oximetry (%) 96 Oxygen Delivery Method room air Intake Visit Reasons: SORE THROAT, EAR PAIN Accompanied by: Self Allergies hydromorphone (From Dilaudid) Adverse Reaction (Verified 12/30/24 11:33) Other oxycodone (From Percocet) Adverse Reaction (Verified 12/30/24 11:33) Nausea Medications ???Medication ???Instructions ???Recorded ???Confirmed ???Type escitalopram oxalate 10 mg tablet 10 mg PO DAILY 04/25/24 12/30/24 History valacyclovir 500 mg tablet 500 mg PO DAILY PRN Cold Sores 12/30/24 History Bacillus coagulans-inulin 1 1 cap PO DAILY 06/14/24 12/30/24 H istory billion cell-250 mg capsule (Probiotic with Prebiotic) colestipol 1 gram tablet 1 g PO QDAY #30 tabs 07/17/24/03/29 Rx omeprazole 40 mg capsule,delayed 40 mg PO QDAY #90 caps 07/17/24 Rx release amoxicillin 500 mg tablet 500 mg PO Q12H 10 days #20 tabs 12/30/24 Rx Nurse's Note: Patient has a ST and bilateral ear pain that has been going on for couple days. Left ear is worse then the right. Patient feels like her neck lymph nodes are swollen. [facility] Medical History (Updated 12/30/24 @ 12:18 by Solomon Luz ACCOUNTING CLERKS SUPERVISOR, ACCOUNTING CLERKS SUPERVISOR-C) Wears glasses Wears contact lenses Heartburn Breast mass, left Abnormal mammogram of left breast COVID-19 Mass of head Anxiety and depression Frequent headaches Surgical History Status post hysterectomy History of section History of dilation and curettage lumpectomy back of head Family History Father Diabetes Hypertension Mother Hypertension Social History Smoking Status: Never smoker alcohol intake: current alcohol intake frequency: holidays/special occasions only details: pre- substance use type: does not use caffeine: Yes what type of physical activity do you participate in: walking and other details: cardio frequency: 5-6 times per week seatbelt use: always do you feel safe at home: Yes additional social history: [place] Patient works at [employer] History Menstrual Ab induced: 1 HPI HPI Details: BARBARA QUINTANILLA, is a 34 F who presents to the office today for concerns regarding sore throat and bilateral ear pain. This has been ongoing for 2 days. She states the left is worse than the right. She also acknowledges swollen neck lymph nodes. Prior to evaluation she underwent strep testing. It was negative. Her daughter has a fever and similar symptoms. ROS Const Constitutional: Positive for fatigue; No body ache, chills, fever(s), headache(s) or change in appetite Eyes Eyes: No blurry vision, change in vision, double vision, irritation, discharge, vision loss, dry eyes, bulging eyes, floaters, visual disturbances, eye pain, Light sensitivity, spots in vision, tunnel vision or other ENT ENT: Positive for ear or mastoid pain, neck pain and sore throat (worse when swallowing); No ear discharge, ear pressure, tinnitus, dizziness/vertigo, nosebleed/epistaxis, nasal congestion, nose pain, sinus pressure, sinus pain, nasal discharge, post nasal drip, headache(s), facial pain, dental pain, difficulty swallowing, bad breath, hoarseness, lip swelling, mouth lesions, mouth pain, tongue swelling or throat swelling Resp Respiratory: No cough, change in phlegm color, chest congestion, hemoptysis, pain on inspiration, shortness of breath, pain with cough, stridor or wheezing Cardio Cardiology: No chest pain at rest, chest pain with exertion, shortness of breath, dyspnea on exertion or lightheadedness Gastro GI: No abdominal pain, change in bowel habits, constipation, diarrhea, difficulty swallowing, nausea/dyspepsia or vomiting Genitourinary-Female: No burning urination or urinary frequency Musc Musculoskeletal: Positive for neck pain; No joint pain Skin Skin: No rash Neuro Neurology: No headache(s) or visual disturbances Psych Psychiatric: No change in appetite Endo Endocrine: Positive for fatigue Aller/Imm Allergy/Immunologic: No lip swelling, throat swelling, tongue swelling or wheezing Exam Const General: cooperative, healthy appearing, comfortable and no acute distress Or (more content not included)... Normal [facility] Hepatitis B Core AB IgMon HEP B CORE,IgM Negative Normal Negative [facility] Comment on above: Result Comment: Perf ormed at: - [facility] [id number] Filler Shredder: Gil Alves PhD, Phone: [phone] Performed By: #### L 3890.6455, L3100.0440, L3890.6100, L3890.6300, L509.8000 ####[facility] [address] [place], [place], [address] CTPCRon 09-21-2024 C. trachomatis Interp Normal See CT Interp N [facility] Comment on above: Result Comment: C. t rachomatis DNA not detected. Specimen is presumptive negative for C. trachomatis. A negative result does not preclude C. trachomatis infection because results depend on adequate specimen collection, absence of inhibitors, and sufficient DNA to be detected. See CT Interp N Performed By: #### C TPCR, NGPCR1 #### [place] [address] C.trachomatis PCR Negative Normal Negative [facility] Comment on above: Result Comment: Mole cular (PCR) assay performed on the [place] [employer] 4800 system. Performed By: #### C TPCR, NGPCR1 #### [facility] [address] [place] [address] [place] Source Cervix Normal [facility] Comment on above: Performed By: #### C TPCR, NGPCR1 #### [facility] [address] [place] [address] HIV - WCHon 09-21-2024 HIV Non-Reactive Normal Nonreactive [facility] Comment on above: Performed By: #### L 3890.6005, L3100.0440, L3890.6100, L3890.6300, L509.8000 #### [facility] [address] [place], [place], [id number] HIV 1 and HIV-2 antibody ass ay with HIV-1 p24 antigen detectionon 09-21-2024 HIV 1+2 Ab+HIV1 p24 Ag IA Ql Non-Reactive Nonreactive [facility] Hepatitis B Surface Antigeno n 09-21-2024 HEP B Surf Ag Non-Reactive Normal Nonreactive [facility] Comment on above: Performed By: #### L 3890.6005, L3100.0440, L3890.6100, L3890.6300, L509.8000 #### [facility] [address] [place], [place], [id number] Hepatitis C Antibodyon 09-21 Hepatitis C AB [facility] Comment on above: Result Comment: Non Reactive: < 0.8 Equivocal: >/= 0.8 to < 1.0 Reactive: >/= 1.0 The CDC requires that a reactive/equivocal HCV antibody result be sent out for confirmation. HCV Quant by PCR testing. Performed By: #### L 3890.6005, L3100.0440, L3890.6100, L3890.6300, L509.8000 #### [facility] [address] [place], [address] L509.8000on 09-21-2024 Syphilis Abs Non-Reactive Normal [facility] Comment on above: Performed By: #### L 3890.6005, L3100.0440, L3890.6100, L3890.6300, L509.8000 #### [facility] [address] [place], [address] [id number] 09-21-2024 GC PCR Source Cervix Normal [facility] Comment on above: Performed By: #### C TPCR, NGPCR1 #### [facility] [address] [place] [address] N. gonorrhoeae (PCR) Negative Normal Negative [facility] Comment on above: Result Comment: Mole cular (PCR) assay performed on the [place] [employer] 4800 System. Performed By: #### C TPCR, NGPCR1 #### [facility] [address] [place] [address] N. gonorrhoeae Interp Normal See NG Interp N [facility] Comment on above: Result Comment: N. g onorrhoeae DNA not detected. Specimen is presumptive negative for N. gonorrhoeae. A negative result does not preclude Neisseria gonorrhoeae infection because results depend on adequate specimen collection, absence of inhibitors, and sufficient DNA to be detected. See NG Interp N Performed By: #### C TPCR, NGPCR1 #### [facility] [address] [place] [address] Serum Treponema species anti body detectionon 09-21-2024 Treponema sp Ab Ql (S) Non-Reactive [facility] LABORATORYOrdered By: Myrtle Tompkins on 09-20-2024 C. trachomatis DNA VON+probe Ql (Unsp spec) Negative 2 (09/20/24 4:39 PM) Normal Negative [facility] Comment on above: Interpretive Data: M olecular (PCR) assay performed on the [place] [employer] 48[employer] system. C. trachomatis DNA VON+probe Ql (Unsp spec) C. trachomatis DNA not detected. Specimen is presumptive negative forC. trachomatis.A negative result does not preclude C. trachomatis infection becauseresults depend on adequate specimen collection, absence of inhibitors,and sufficient DNA to be detected. Normal See CT Interp N [facility]Sero [facility] N. gonorrhoeae DNA VON+probe Ql (Unsp spec) Negative 1 (09/20/24 4:39 PM) Normal Negative [facility] Comment on above: Interpretive Data: M olecular (PCR) assay performed on the [place] [employer] 4800 System. N. gonorrhoeae DNA VON+probe Ql (Unsp spec) N. gonorrhoeae DNA not detected. Specimen is presumptive negative forN. gonorrhoeae. A negative result does not preclude Neisseria gonorrhoeaeinfection because results depend on adequate specimen collection, absenceof inhibitors, and sufficient DNA to be detected. Normal See NG Interp N [facility] Laboratory - Specimen inform ationOrdered By: Myrtle Tompkins on 09-20-2024 Specimen source Nom (Unsp spec) Cervix (09/20/24 4:39 PM) Normal [facility] Viro/Sero SS No Panel InformationOrdered By: Solomon Chow on 09-20-2024 Affirm Pathogens DNA Direct Probe Trichomonas vaginalis DNA Probe Negative Darlyn species DNA Probe Negative Gardnerella vaginalis DNA Probe Negative [facility] Brain W/WO Contraston 2023 Brain W/WO Contrast [facility] [address] [place], [place] [address] Brain W/WO Contrast MR#: [id number] Acct: [id number] Name: BARBARA QUINTANILLA Rep #: [id number] : 1990 F 34 From: Marcelino Dunham MD PCP: Stephanie Kramer, ACCOUNTING CLERKS SUPERVISOR-C Status: REG CLI Study: Brain W/WO Contrast Date of Exam: 08/12/24 Exam# [id number] Ordering Dr: Stephanie Karmer NP ACCOUNTING CLERKS SUPERVISOR-C [id number] EXAM: MR HEAD WITHOUT AND WITH INTRAVENOUS CONTRAST CLINICAL INDICATION: MIGRAINE,NUMBNESS FACE AND RT ARM TECHNIQUE: Multiplanar and multisequence MR images of the brain were obtained without and with intravenous contrast. CONTRAST: IV 11ml clariscan COMPARISON: MRI brain from 03/14/2020 FINDINGS: BRAIN AND EXTRA-AXIAL SPACES: No abnormal areas of enhancement identified within the brain parenchyma or elsewhere after contrast administration. No intra- or extra-axial hemorrhage. No evidence of acute infarct. No intracranial mass or mass effect. There is preservation of the soriano/white matter interface. Posterior fossa structures are unremarkable. Ventricles are appropriate for age. No hydrocephalus. Basal cisterns are patent. SELLA: Unremarkable. Normal sella turcica, pituitary gland, infundibular stalk, optic chiasm and hypothalamus. AUDITORY SYSTEM: Unremarkable. The internal auditory canals are patent. BONES/JOINTS: Unremarkable. No discrete lytic or blastic abnormalities. SINUSES: Unremarkable as visualized. Clear. MASTOID AIR CELLS: Unremarkable as visualized. Clear. ORBITS: Unremarkable as visualized. Both globes, extraocular muscles, optic nerves and retrobulbar fat appear unremarkable. VASCULATURE: Unremarkable as visualized. Normal flow voids in the major intracranial circulation. MRI/Brain W/WO Contrast IMPRESSION: Unremarkable pre and postcontrast MRI of the brain. Electronically Signed: Marcelino Dunham MD at 7:59 EST , CC: CHARLY Kramer Bench Machine Operator: Signed Normal [facility] Antimullerian Hormone, Serum on 08-11-2024 AMH, SERUM 6.99 ng/mL Normal . [facility] Comment on above: Result Comment: For assays employing antibodies, the possibility exists for interference by heterophile antibodies in the samples.1 1.Corine Johnston. Interferences in Immunoassays - still a threat. Clin. Chem. 2000; 46: 6632-0444. This test was developed and its performance characteristics determined by [employer]. It has not been cleared or approved by the Food and Drug Administration. Reference Range: Females 31 - 35y: 0.66 - 8.75 Median 3.00 AMH concentrations of >= 1.06 ng/mL is correlated with a better response to ovarian stimulation, produced more retrievable oocytes and higher odds of live according to Gleicher et al. Fertility and Sterility. 2010: 94:3771-5440. The current AMH test method correlates with the study method with a slope of 0.94. Females at risk of ovarian hyperstimulation syndrome or polycystic ovarian syndrome (PCOS) may exhibit elevated serum AMH concentrations. AMH levels from PCOS patients may be 2 to 5 fold higher than age-appropriate reference interval values. Granulosa cell tumors of the ovary may secrete AMH along with other tumor markers. Elevated AMH is not specific for malignancy, and the assay should not be used exclusively to diagnose or exclude an AMH-secreting ovarian tumor. Performed at: [facility] [address] [place] [id number] Filler Shredder: Alfie Taylor MD, Phone: [phone] Performed By: #### L 3100.5170, L506.1000, L803.3000, L500.4100, L500.4050, L3100.5125, L506.0250, L501.5200, L503.0105, L100.0500 ####[facility] [address] [facility] [place], [place], [address] Brain/Head without Contrasto n 08-08-2024 Brain/Head without Contrast [facility] [address] [place], [place] [address] Brain/Head without Contrast MR#: [id number] Acct: [id number] Name: BARBARA QUINTANILLA Rep #: [id number] : 1990 F 34 From: Smith Hopper MD PCP: CHARLY Gerard Status: REG CLI Study: Brain/Head without Contrast Date of Exam: 12/27 Exam# [id number] Ordering Dr: Stephanie Kramer NP, NP-C [id number] STUDY: CT BRAIN WITHOUT CONTRAST REASON FOR EXAM: Female, 34 years old. Migraine headache RADIATION DOSAGE (If Supplied By Facility): CTDIvol = ( 44.99 ) mGy, DLP = ( 745.49 ) mGycm TECHNIQUE: Transaxial CT imaging of the brain was performed without administration of intravenous contrast material. Individualized dose optimization techniques were used for this CT. COMPARISON: No relevant priors. FINDINGS: Normal soft tissue structures. Normal calvarium. Normal size ventricles and extra-axial spaces for the patient''s age. Normal white matter tracts of the cerebral hemispheres. Normal basal ganglia and thalami. Normal brainstem. Normal cerebellum. There is no intracranial hemorrhage. There are no findings of an acute ischemic infarction. Normal visualized paranasal sinuses. CT/Brain/Head without Contrast IMPRESSION: Normal unenhanced CT scan of the brain. Electronically Signed: Charles Hopper MD at 12:37 EST , CC: CHARLY Kramer Bench Machine Operator: Signed Normal [facility] CBC-Complete Blood Cnt No Di ffon 08-08-2024 Erythrocyte distribution width (RBC) [Ratio] 13.7 % Normal 11.6-14.6 [facility] Comment on above: Performed By: #### L 3100.5170, L506.1000, L803.3000, L500.4100, L500.4050, L3100.5125, L506.0250, L501.5200, L503.0105, L100.0500 ####[facility] [address] [place], [address] Hematocrit (Bld) [Volume fraction] 44.6 % Normal 37-47 [facility] Comment on above: Performed By: #### L 3100.5170, L506.1000, L803.3000, L500.4100, L500.4050, L3100.5125, L506.0250, L501.5200, L503.0105, L100.0500 ####[facility] [address] [place], [address] Hemoglobin (Bld) [Mass/Vol] 13.7 g/dL Normal 12.0-15.0 [facility] Comment on above: Performed By: #### L 3100.5170, L506.1000, L803.3000, L500.4100, L500.4050, L3100.5125, L506.0250, L501.5200, L503.0105, L100.0500 ####[facility] [address] [place], [address] MCH (RBC) [Entitic mass] 26.3 pg Low 27.0-32.0 [facility] Comment on above: Performed By: #### L 3100.5170, L506.1000, L803.3000, L500.4100, L500.4050, L3100.5125, L506.0250, L501.5200, L503.0105, L100.0500 ####[facility] [address] [place], [address] MCHC (RBC) [Mass/Vol] 30.7 g/dL Low 32-36 [facility] Comment on above: Performed By: #### L 3100.5170, L506.1000, L803.3000, L500.4100, L500.4050, L3100.5125, L506.0250, L501.5200, L503.0105, L100.0500 ####[facility] [address] [place], [address] MCV (RBC) [Entitic vol] 85.8 fL Normal 81-99 [facility] Comment on above: Performed By: #### L 3100.5170, L506.1000, L803.3000, L500.4100, L500.4050, L3100.5125, L506.0250, L501.5200, L503.0105, L100.0500 ####[facility] [address] [place], [address] Platelet mean volume (Bld) [Entitic vol] 9.8 fL Normal 6.2-12.0 [facility] Comment on above: Performed By: #### L 3100.5170, L506.1000, L803.3000, L500.4100, L500.4050, L3100.5125, L506.0250, L501.5200, L503.0105, L100.0500 ####[facility] [address] [place], [address] Platelets (Bld) [#/Vol] 298 10*3/uL Normal 150-450 [facility] Comment on above: Performed By: #### L 3100.5170, L506.1000, L803.3000, L500.4100, L500.4050, L3100.5125, L506.0250, L501.5200, L503.0105, L100.0500 ####[facility] [address] [place], [address] RBC (Bld) [#/Vol] 5.20 10*6/uL Normal 4.2-5.4 [facility] Comment on above: Performed By: #### L 3100.5170, L506.1000, L803.3000, L500.4100, L500.4050, L3100.5125, L506.0250, L501.5200, L503.0105, L100.0500 ####[facility] [address] [place], [address] RDW SD 42.5 fl Normal 35.1-43.9 [facility] Comment on above: Performed By: #### L 3100.5170, L506.1000, L803.3000, L500.4100, L500.4050, L3100.5125, L506.0250, L501.5200, L503.0105, L100.0500 ####[facility] [address] [place], [place], [id number] WBC (Bld) [#/Vol] 10.4 10*3/uL Normal 4.4-11.0 [facility] Comment on above: Performed By: #### L 3100.5170, L506.1000, L803.3000, L500.4100, L500.4050, L3100.5125, L506.0250, L501.5200, L503.0105, L100.0500 ####[facility] [address] [place], [address] Comprehensive Metabolic Prof ilon 08-08-2024 Albumin [Mass/Vol] 4.3 g/dL Normal 3.2-5.0 [facility] Comment on above: Order Comment: N Performed By: #### L 3100.5170, L506.1000, L803.3000, L500.4100, L500.4050, L3100.5125, L506.0250, L501.5200, L503.0105, L100.0500 ####[facility] [address] [place], [place], [address] Albumin/Globulin [Mass ratio] 1.1 {ratio} Normal 0.9-2.4 [facility] Comment on above: Order Comment: N Performed By: #### L 3100.5170, L506.1000, L803.3000, L500.4100, L500.4050, L3100.5125, L506.0250, L501.5200, L503.0105, L100.0500 ####[facility] [address] [place], [address] ALK P 52 U/L Normal 45-117 [facility] Comment on above: Order Comment: N Performed By: #### L 3100.5170, L506.1000, L803.3000, L500.4100, L500.4050, L3100.5125, L506.0250, L501.5200, L503.0105, L100.0500 ####[facility] [address] [place], [address] ALT [Catalytic activity/Vol] 21 U/L Normal 13-56 [facility] [facility] Comment on above: Order Comment: N Performed By: #### L 3100.5170, L506.1000, L803.3000, L500.4100, L500.4050, L3100.5125, L506.0250, L501.5200, L503.0105, L100.0500 ####[facility] [address] [place], [place], [phone] AST [Catalytic activity/Vol] 15 U/L Normal 15-37 [facility] Comment on above: Order Comment: N Performed By: #### L 3100.5170, L506.1000, L803.3000, L500.4100, L500.4050, L3100.5125, L506.0250, L501.5200, L503.0105, L100.0500 ####[facility] [address] [place], [place], [phone] Bilirubin [Mass/Vol] 1.40 mg/dL High 0.20-1.00 [facility] Comment on above: Order Comment: N Result Comment: For patients on eltrombopag therapy, use of Dimension [place] TBIL is not recommended. Performed By: #### L 3100.5170, L506.1000, L803.3000, L500.4100, L500.4050, L3100.5125, L506.0250, L501.5200, L503.0105, L100.0500 ####[facility] [address] [place], [address] BUN/CRE 10.7 RATIO Normal 10-20 [facility] Comment on above: Order Comment: N Performed By: #### L 3100.5170, L506.1000, L803.3000, L500.4100, L500.4050, L3100.5125, L506.0250, L501.5200, L503.0105, L100.0500 ####[facility] [address] [place], [address] CA,Total 9.9 mg/dL Normal 8.5-10.1 [facility] Comment on above: Order Comment: N Performed By: #### L 3100.5170, L506.1000, L803.3000, L500.4100, L500.4050, L3100.5125, L506.0250, L501.5200, L503.0105, L100.0500 ####[facility] [address] [place], [place], [phone] Chloride [Moles/Vol] 104 mmol/L Normal 98-107 [facility] Comment on above: Order Comment: N Performed By: #### L 3100.5170, L506.1000, L803.3000, L500.4100, L500.4050, L3100.5125, L506.0250, L501.5200, L503.0105, L100.0500 ####[facility] [address] [place], [address] CO2 [Moles/Vol] 27.0 mmol/L Normal 21.0-32.0 [facility] Comment on above: Order Comment: N Performed By: #### L 3100.5170, L506.1000, L803.3000, L500.4100, L500.4050, L3100.5125, L506.0250, L501.5200, L503.0105, L100.0500 ####[facility] [address] [place], [address] Creatinine [Mass/Vol] 0.65 mg/dL Normal 0.55-1.02 [facility] Comment on above: Order Comment: N Result Comment: The validity of the calculated GFR GFRAA in patients over 70 years has not been determined. Clinical correlation is essential. Performed By: #### L 3100.5170, L506.1000, L803.3000, L500.4100, L500.4050, L3100.5125, L506.0250, L501.5200, L503.0105, L100.0500 ####[facility] [address] [place], [place], [phone] EST GFR - AA 133 mL/min Normal >60 [facility] Comment on above: Order Comment: N Result Comment: Afri can [place] GFR Calc Performed By: #### L 3100.5170, L506.1000, L803.3000, L500.4100, L500.4050, L3100.5125, L506.0250, L501.5200, L503.0105, L100.0500 ####[facility] [address] [place], [place], [phone] GAP 7 Normal 5-15 [facility] Comment on above: Order Comment: N Performed By: #### L 3100.5170, L506.1000, L803.3000, L500.4100, L500.4050, L3100.5125, L506.0250, L501.5200, L503.0105, L100.0500 ####[facility] [address] [place], [address] GFR/1.73 sq M.predicted among non-blacks MDRD (S/P/Bld) [Vol rate/Area] 110 mL/min/{1.73_m2} Normal >60 [facility] Comment on above: Order Comment: N Result Comment: Non- GFR Calc Performed By: #### L 3100.5170, L506.1000, L803.3000, L500.4100, L500.4050, L3100.5125, L506.0250, L501.5200, L503.0105, L100.0500 ####[facility] [address] [place], [address] Globulin (S) [Mass/Vol] 3.9 g/dL Normal 2.2-4.2 [facility] Comment on above: Order Comment: N Performed By: #### L 3100.5170, L506.1000, L803.3000, L500.4100, L500.4050, L3100.5125, L506.0250, L501.5200, L503.0105, L100.0500 ####[facility] [address] [place], [address] Glucose [Mass/Vol] 87 mg/dL Normal 74-106 [facility] Comment on above: Order Comment: N Performed By: #### L 3100.5170, L506.1000, L803.3000, L500.4100, L500.4050, L3100.5125, L506.0250, L501.5200, L503.0105, L100.0500 ####[facility] [address] [place], [address] Potassium [Moles/Vol] 3.3 mmol/L Low 3.5-5.1 [facility] Comment on above: Order Comment: N Performed By: #### L 3100.5170, L506.1000, L803.3000, L500.4100, L500.4050, L3100.5125, L506.0250, L501.5200, L503.0105, L100.0500 ####[facility] [address] [place], [address] Sodium [Moles/Vol] 138 mmol/L Normal 136-145 [facility] Comment on above: Order Comment: N Performed By: #### L 3100.5170, L506.1000, L803.3000, L500.4100, L500.4050, L3100.5125, L506.0250, L501.5200, L503.0105, L100.0500 ####[facility] [address] [place], [address] T PROT 8.2 g/dL Normal 6.4-8.2 [facility] Comment on above: Order Comment: N Performed By: #### L 3100.5170, L506.1000, L803.3000, L500.4100, L500.4050, L3100.5125, L506.0250, L501.5200, L503.0105, L100.0500 ####[facility] [address] [place], [address] Urea nitrogen [Mass/Vol] 7 mg/dL Normal 7-18 [facility] Comment on above: Order Comment: N Performed By: #### L 3100.5170, L506.1000, L803.3000, L500.4100, L500.4050, L3100.5125, L506.0250, L501.5200, L503.0105, L100.0500 ####[facility] [address] [place], [address] Folates, (Folic Acid)on FOLATES 17.00 ng/mL Normal 3.1-55.4 [facility] Comment on above: Order Comment: N Performed By: #### L 3100.5170, L506.1000, L803.3000, L500.4100, L500.4050, L3100.5125, L506.0250, L501.5200, L503.0105, L100.0500 ####[facility] [address] [place], [address] Follicle Stimulating Hormone on 08-08-2024 FSH 5.9 mIU/mL Normal [facility] Comment on above: Order Comment: N Result Comment: NORMAL REFERENCE RANGES FEMALE FOLLICULAR 2.3 - 12.6 mIU/mL MID-CYCLE PEAK 5.2 - 17.5 mIU/mL LUTEAL 1.7 - 12.9 mIU/mL POST-MENOPAUSAL ON MHT 5.9 - 72.8 mIU/mL NOT ON MHT 12.7 - 132.2 mlU/mL MALE 0.7 - 10.8 mIU/mL Performed By: #### L 3100.5170, L506.1000, L803.3000, L500.4100, L500.4050, L3100.5125, L506.0250, L501.5200, L503.0105, L100.0500 ####[facility] [address] [place], [address] Lipid Profileon 08-08-2024 Cholesterol [Mass/Vol] 208 mg/dL High 200 [facility] Comment on above: Order Comment: N Result Comment: <200 mg/dL Desirable 200-240 mg/dL Borderline >240 mg/dL High Risk Performed By: #### L 3100.5170, L506.1000, L803.3000, L500.4100, L500.4050, L3100.5125, L506.0250, L501.5200, L503.0105, L100.0500 ####[facility] [address] [facility] [place], [address] Cholesterol in HDL [Mass/Vol] 83 mg/dL Normal [facility] Comment on above: Order Comment: N Result Comment: The drugs N-Acetylcysteine and Metamizole may falsely depress this assay. Reference Range HDL <40 mg/dL Low HDL Cholesterol HDL >or= 60 mg/dL High HDL Cholesterol Performed By: #### L 3100.5170, L506.1000, L803.3000, L500.4100, L500.4050, L3100.5125, L506.0250, L501.5200, L503.0105, L100.0500 ####[facility] [address] [place], [address] Cholesterol in LDL [Mass/Vol] 106 mg/dL Normal 0-130 [facility] Comment on above: Order Comment: N Performed By: #### L 3100.5170, L506.1000, L803.3000, L500.4100, L500.4050, L3100.5125, L506.0250, L501.5200, L503.0105, L100.0500 ####[facility] [address] [place], [place], [phone] Cholesterol in VLDL [Mass/Vol] 19 mg/dL Normal 5-40 [facility] Comment on above: Order Comment: N Performed By: #### L 3100.5170, L506.1000, L803.3000, L500.4100, L500.4050, L3100.5125, L506.0250, L501.5200, L503.0105, L100.0500 ####[facility] [address] [place], [address] Triglyceride [Mass/Vol] 93 mg/dL Normal [facility] Comment on above: Order Comment: N Result Comment: The drugs N-Acetylcysteine and Metamizole may falsely depress this assay. Serum Triglycerides Reference Interval Normal <150 mg/dL Borderline high 150 - 199 mg/dL High 200 - 499 mg/dL Very High > or = 500 mg/dL Performed By: #### L 3100.5170, L506.1000, L803.3000, L500.4100, L500.4050, L3100.5125, L506.0250, L501.5200, L503.0105, L100.0500 ####[facility] [address] [place], [place], [phone] Luteinizing Hormoneon 2023 LH 5.0 mIU/mL Normal [facility] Comment on above: Order Comment: N Result Comment: NORMAL REFERENCE RANGES FEMALE FOLLICULAR 1.9 - 26.2 mIU/mL MID-CYCLE PEAK 22.8 - 76.1 mIU/mL LUTEAL 0.6 - 16.6 mIU/mL POST-MENOPAUSAL ON MHT 1.1 - 52.4 mIU/mL NOT ON MHT 8.6 - 61.8 mIU/mL MALE 1.2 - 10.6 mIU/mL Performed By: #### L 3100.5170, L506.1000, L803.3000, L500.4100, L500.4050, L3100.5125, L506.0250, L501.5200, L503.0105, L100.0500 ####[facility] [address] [place], [place], [phone] Magnesiumon 08-08-2024 Magnesium [Mass/Vol] 2.2 mg/dL Normal 1.6-2.6 [facility] Comment on above: Order Comment: N Performed By: #### L 3100.5170, L506.1000, L803.3000, L500.4100, L500.4050, L3100.5125, L506.0250, L501.5200, L503.0105, L100.0500 ####[facility] [address] [place], [place], [phone] Vitamin B12on 08-08-2024 Cobalamin (Vitamin B12) [Mass/Vol] 689 pg/mL Normal 211-911 [facility] Comment on above: Performed By: #### L 3100.5170, L506.1000, L803.3000, L500.4100, L500.4050, L3100.5125, L506.0250, L501.5200, L503.0105, L100.0500 ####[facility] [address] [place], [place], [phone] Vitamin D,25 Hydroxyon 08-08 Vitamin D 25-OH 33.8 ng/mL Normal [facility] Comment on above: Result Comment: [place] min D 25(OH) Status Range Deficiency <20 ng/mL (50nmol/L) Insufficiency 20 - 30 ng/mL (50 - 75 nmol/L) Sufficiency 30 - 100 ng/mL (75 - 250 nmol/L) Toxicity >100 ng/mL (>250 nmol/L) Performed By: #### L 3100.5170, L506.1000, L803.3000, L500.4100, L500.4050, L3100.5125, L506.0250, L501.5200, L503.0105, L100.0500 ####[facility] [address] [place], [address] Gastroenterology Visit Repor ton 07-17-2024 Gastroenterology Visit Report [facility] [address] [place] [address] OFFICE VISIT Date of Service: 07/17/24 MR#: [id number] Acct: [id number] Name: BARBARA QUINTANILLA Rep #: [id number] : 1990 Provider: CLEVE Wyman Age/Sex: 34/F Location: [facility] Status: Signed Intake Vital Signs 11/02/23 17:18 06/25/24 14:20 Height 4 ft 11 in 4 ft 11 in Intake Visit Reasons: 3 M FU Chief Complaint: f/u. Allergies hydromorphone (From Dilaudid) Adverse Reaction (Verified 06/19/24 14:02) Other oxycodone (From Percocet) Adverse Reaction (Verified 06/19/24 14:02) Nausea Nurse's Note: OV 07.17.24 Pt here today for f/u. EGD 06.19.24. Reports fatigue, muscle weakness, nausea, abdominal pain, gas and bloating. Takes metoclopramide daily. [facility] Medical History (Updated 07/17/24 @ 15:24 by CLEVE Wyman) Wears glasses Wears contact lenses Heartburn Breast mass, left Abnormal mammogram of left breast COVID-19 Mass of head Anxiety and depression Frequent headaches Surgical History Status post hysterectomy History of section History of dilation and curettage lumpectomy back of head Family History Father Diabetes Hypertension Mother Hypertension Social History Smoking Status: Never smoker alcohol intake: current alcohol intake frequency: holidays/special occasions only details: pre- substance use type: does not use caffeine: Yes what type of physical activity do you participate in: walking and other details: cardio frequency: 5-6 times per week seatbelt use: always do you feel safe at home: Yes additional social history: [place] Patient works at [employer]roductive History Menstrual Ab induced: 1 HPI HPI Chief Complaint: f/u. Details: BARBARA QUINTANILLA, is a 34 F who presents to the office today for f/u. *BGI established 8..24 with daily urgent diarrhea, bloating and nausea. Blood work for IBD, Celiac and food allergens wnl. Contacted office with heartburn and n/v. EGD scheduled. GES abnormal and Reglan started for 2 weeks with not much of a change in symptoms. EGD .; - Esophageal mucosal changes suggestive of eosinophilic esophagitis. - Clear gastric fluid. Fluid aspiration performed. - Erythematous mucosa in the gastric body. Biopsied. - No gross lesions in the second portion of the duodenum. Biopsied. - Biopsies were taken with a cold forceps for evaluation of eosinophilic esophagitis. GES 10.17.24; 49 minutes OV 11.12.24 Pt has been doing well with less episodes of diarrhea on a bland diet. She avoids greasy foods and dairy but would like to get to a point of being able to eat anything. She ate [employer] soup and instantly had symptoms. The trial of reglan did not help much. Most of her nausea is in the morning when she feels hungry not after eating. ROS Const Constitutional: Positive for fatigue and headache(s); No fever(s) or weight change ENT ENT: Positive for headache(s); No difficulty swallowing Gastro GI: Positive for abdominal pain, bloating, excessive flatus and nausea/dyspepsia; No belching, change in bowel habits, change in stool character, coffee ground emesis, constipation, cramping, diarrhea, heartburn, difficulty swallowing, feeling full early, incontinent of stools, Vomiting blood/hematemesis, Blood in stool, loose stools, Black,tarry stools, pain with swallowing, vomiting or other Musc Musculoskeletal: Positive for back pain, muscle cramps and muscle weakness; No joint pain Skin Skin: No yellowing of the eye or itchy eyes Neuro Neurology: Positive for headache(s) Psych Psychiatric: No anxiety and No depression Endo Endocrine: Positive for fatigue; No weight change Aller/Imm Allergy/Immunologic: No itchy eyes Ganga/Lymp Hematologic/Lymphatic: No easy bleeding or easy bruising Exam Const General: cooperative and comfortable Nutritional Appearance: average body habitus and well nourished [facility] Head: normal to inspection Ears: hearing grossly normal bilaterally Nose: external nose normal Face and sinus: normal facial exam Mouth: oral mucosae normal Throat: posterior oropharynx normal Eyes General: appearance normal, both eyes and all related structures Neck Neck: normal visual inspection Chest Chest palpation inspection: normal inspection of the chest and normal palpation of entire chest wall Resp Effort Inspection: normal respiratory effort Auscultation: Bilateral: Clear to Auscultation Cardio Palpation: normal PMI Rate: regular rate Rhythm: regular rhythm GI Inspection: normal to inspection Auscultation: normal bowel so (more content not included)... Normal [facility] SCRN MAMM (CAD)W/SIVAKUMAR BILATo n 07-06-2024 SCRN MAMM (CAD)W/SIVAKUMAR BILAT [facility] Imaging Services [address] [place] [id number] SCRN MAMM (CAD)W/SIVAKUMAR BILAT MR#: [id number] Acct: [id number] Name: BARBARA QUINTANILLA Rep #: [id number] : 1990 F 33 From: Sixto persaud MD PCP: CHARLY Gerard Status: REG I Study: SCRN MAMM (CAD)W/SIVAKUMAR BILAT Date of Exam: 09/28 Exam# [id number] Ordering Dr: Magda Arriola PA-C [id number] MAMMOGRAPHY - BILATERAL SCREENING REASON FOR EXAM: Female, 33 years old. Routine annual screening examination. PERTINENT HISTORY: Grandmother with breast cancer. Aunt with breast cancer TECHNIQUE: Digital bilateral breast sivakumar (3D mammographic acquisition) in the CC and MLO projections. 2-D mediolateral oblique (MLO) and craniocaudad (CC) views of both breasts were obtained. CAD: Full Field Digital Mammography with Computer Added Detection was performed. COMPARISON: Comparison is made with prior study June 28, 2023 and June 18, 2022. FINDINGS: Breast Composition: The breasts are heterogeneously dense, which may obscure small masses. There are no dominant masses or suspicious calcifications. Stable small bilateral axillary lymph nodes. No other significant abnormalities are identified. There has been no significant change since the prior study. BI/SCRN MAMM (CAD)W/SIVAKUMAR BILAT IMPRESSION: Stable bilateral screening mammogram. Yearly follow-up mammogram recommended. (A) ASSESSMENT CATEGORY: BIRADS Category 2: Benign. A letter regarding these results will be sent to the patient by the facility within 30 days. Approximately 10% of breast cancers are not detected by mammography. A normal mammogram should not delay biopsy of a clinically suspicious abnormality. [id number] Electronically Signed: Sixto Monge MD at 8:46 EDT , CC: CHARLY Kramer; ASIDA Arriola Bench Machine Operator: Signed Normal [facility] L3300.0940on 06-27-2024 VIT D,25 HYDROX 29.6 ng/mL Low 30.0-100.0 [facility] Comment on above: Order Comment: Speci men Comment: A duplicate report has been generateddue to demographicSpecimen Comment: update of the patient's Date of ,Age, Gender, and/orSpecimen Comment: Specimen Date. Please review patientresults, referenceSpecimen Comment: intervals, and calculated results thatmay have beenSpecimen Comment: affected by this change. Result Comment: Clover min D deficiency has been defined by the [place] of Medicine and an Endocrine Society practice guideline as a level of serum 25-OH vitamin D less than 20 ng/mL (1,2). The Endocrine Society went on to further define vitamin D insufficiency as a level between 21 and 29 ng/mL (2). 1. IOM ([place] of Medicine). 2010. Dietary reference intakes for calcium and D. [place]: The National Academies Press. 2. Rai MF, Aaron NC, Layne WRIGHT, et al. Evaluation, treatment, and prevention of vitamin D deficiency: an Endocrine Society clinical practice guideline. JCEM. 2010; 96(7):1911-30. Performed By: #### L 3300.0940, L500.4100 ####[facility] [address] [facility] [place], [place], [address] Gastric Emptying Studyon Gastric Emptying Study [facility] Imaging Services [address] [place], [place] [address] Gastric Emptying Study MR#: [id number] Acct: [id number] Name: BARBARA QUINTANILLA Rep #: [id number] : 1990 F 33 From: Magen Paulino PCP: CHARLY Gerard Status: REG CLI Study: Gastric Emptying Study Date of Exam: 06/21/24 Exam# [id number] Ordering Dr: Igor Luke DO [id number] CLINICAL: 33-year-old female with history of abdominal bloating. SEMI-SOLID PHASE 99m Tc SULFUR COLLOID GASTRIC EMPTYING STUDY COMPARISON: None available FINDINGS: The patient was administered 1.2 mCi of 99m Tc sulfur colloid mixed with oatmeal and consumed per os. Image acquisitions in the anterior-posterior projection were obtained for 60 minutes. There is prompt visualization of the stomach. There is no gastroesophageal reflux identified. The T ? linear fit was calculated to be 49.98 minutes, (Normal: 12-56 minutes). NM/Gastric Emptying Study IMPRESSION: 1. NORMAL 99m Tc sulfur colloid semi-solid phase (oatmeal) gastric emptying imaging examination. A. There is normal and preserved semi-solid phase gastric emptying compared to normal controls. (Yariel et al, J Nucl Med Tech 38: 186, 2010). Electronically Signed: Magen Cheek DO at 11:59 EDT , CC: CHARLY Kramer; Igor Luke DO Bench Machine Operator: Signed Normal [facility] EGD Reporton 06-19-2024 EGD Report [facility] Medical Records Department [address] [place] [address] EGD Report MR#: [id number] Acct: [id number] Name: BARBARA QUINTANILLA Rep #: [id number] : 1990 33 From: Igor Luke DO PCP: CHARLY Gerard Status:REG [facility] Patient Name: Barbara Quintanilla Procedure Date: 06/19/2024 3:40 PM Date of : 1990 Age: 33 Procedure: Upper GI endoscopy Indications: Epigastric abdominal pain, Functional Dyspepsia Providers: Igor Luke DO Referring MD: Charly Gerard Medicines: Monitored Anesthesia Care Patient Profile: This is a 33 year old female. Refer to note in patient chart for documentation of history and physical. Patient has symptoms of chronic epigastric abdominal pain. Complications: No immediate complications. Procedure: Pre-Anesthesia Assessment: - Prior to the procedure, a History and Physical was performed, and patient medications and allergies were reviewed. The patient is competent. The risks and benefits of the procedure and the sedation options and risks were discussed with the patient. All questions were answered and informed consent was obtained. Patient identification and proposed procedure were verified by the physician in the pre-procedure area. Mental Status Examination: alert and oriented. Airway Examination: normal oropharyngeal airway and neck mobility. Respiratory Examination: clear to auscultation. CV Examination: normal. Prophylactic Antibiotics: The patient does not require prophylactic antibiotics. Prior Anticoagulants: The patient has taken no anticoagulant or antiplatelet agents except for NSAID medication. ASA Grade Assessment: II - A patient with mild systemic disease. After reviewing the risks and benefits, the patient was deemed in satisfactory condition to undergo the procedure. The anesthesia plan was to use monitored anesthesia care (MAC). Immediately prior to administration of medications, the patient was re-assessed for adequacy to receive sedatives. The heart rate, respiratory rate, oxygen saturations, blood pressure, adequacy of pulmonary ventilation, and response to care were monitored throughout the procedure. The physical status of the patient was re-assessed after the procedure. After obtaining informed consent, the endoscope was passed under direct vision. Throughout the procedure, the patient's blood pressure, pulse, and oxygen saturations were monitored continuously. The Endoscope was introduced through the mouth, and advanced to the second part of duodenum. The upper GI endoscopy was accomplished without difficulty. The patient tolerated the procedure well. Scope In: 3:50:33 PM Scope Out: 3:56:19 PM Total Procedure Duration Time 0 hours 5 minutes 46 seconds Findings: Mucosal changes including longitudinal furrows were found in the upper third of the esophagus and in the middle third of the esophagus. Biopsies were obtained from the proximal and distal esophagus with cold forceps for histology of suspected eosinophilic esophagitis. Verification of patient identification for the specimen was done. Estimated blood loss was minimal. Clear fluid was found in the gastric body. Fluid aspiration was performed. Patchy mildly erythematous mucosa without bleeding was found in the gastric body. Biopsies were taken with a cold forceps for histology. Biopsies were taken with a cold forceps for Helicobacter pylori testing. Verification of patient identification for the specimen was done. Estimated blood loss was minimal. No gross lesions were noted in the second portion of the duodenum. Biopsies were taken with a cold forceps for histology. Verification of patient identification for the specimen was done. Estimated blood loss was minimal. Impression: - Esophageal mucosal changes suggestive of eosinophilic esophagitis. - Clear gastric fluid. Fluid aspiration performed. - Erythematous mucosa in the gastric body. Biopsied. - No gross lesions in the second portion of the duodenum. Biopsied. - Biopsies were taken with a cold forceps for evaluation of eosinophilic esophagitis. Recommendation: - Discharge patient to home. - Resume previous diet. - Continue present medications. - Await pathology results. Procedure Code(s): --- Professional --- 43820, Esophagogastroduodenos copy, flexible, transoral; with biopsy, single or multiple CPT copyright 2021 [employer]. All rights reserved. The codes documented in this report are preliminary and upon physical science technician review may be revised to meet current compliance requirements. Igor Luke DO 06/19/2024 4:02:02 PM This report has been signed electronically. Number of Addenda: 0 Note Initiated On: 06/19/2024 3:40 PM 06/19/24 1602 Date Igor Luke (more content not included)... Normal [facility] H Pylori (initial)on H Pylori (initial) -- ---- Patient Age/Sex Location Account Attending Physician ---- BARBARA QUINTANILLA 33/F EN [id number] Igor Luke DO ---- Specimen: [id number] Received: 06/20/24 Status: SILVIA Freeman Num: [id number] Spec Type: IMMUNO Subm Dr: Igor Luke DO PHYSICIAN INSTITUTION [address] [address] SPECIMEN INFORMATION: Tissue Source: B- Gastric body biopsy Clinical Info: Abdominal pain Specimen Number: [id number] CPT code: 02178 METHODOLOGY: Deparaffinized sections of prefer/formalin-fixed tissue or PAP/DQ stained slides are incubated with monoclonal/polyclonal antibodies/oligonucleo tide probes. Localization is made via biotin free immunoperoxidase method. Appropriate controls are performed and reacted as expected. Results on target cell population are indicated in the following table: RESULTS: ANTIBODY / CLONE RESULT Block B H Pylori (polyclonal) negative These tests were developed and their performance characteristics determined by [facility]. They may not have been cleared or approved by the U.S. Food and Drug Administration. The FDA has determined that such clearance or approval is not necessary. The above immunohistochemical/du alISH markers are ordered and reviewed by the Pathologist. INTERPRETATION: B. Gastric body, biopsy: Negative for Helicobacter pylori organisms. 06/21/2024 Signed (signature on file) Dr. Maximilian Morris MD 06/21/24 1215 ---- Normal [facility] Comment on above: Performed By: #### P H.PYLORI #### [facility] [address] [place], [address] MR/POSTOP.Alyssa 06-19-2024 MR/POSTOP.SHREYAS [facility] Medical Records Department [facility] [place] [address] Anesthesia Postop Eval I 06/19/24 1602 MR#: [id number] Acct: [id number] Name: BARBARA QUINTANILLA Rep #: [id number] : 1990 33 From: Gaurav Cary PCP: CHARLY Gerard Status:[facility] Y Race: C Location: [place] [address] Anesthesia: Postop Eval I Current Vital Signs Temperature: 98.4 F Pulse Rate: 89 Blood Pressure: 88/55 Respiratory Rate: 16 Pulse Ox: 97 Oxygen Delivery Method: Room Air Assessment Airway patent: Yes Spontaneous unlabored respirations: Yes Mental status: Awake nausea: No Vomiting: No Anesthesia Complication: No Fluid Hydration Crystalloid volume administer (ml): 20 Total IV fluid infused: 20 Progress Note Anesthesia document: Postop Eval 1 completed: Yes 06/19/24 1603 Date Gaurav Villegasignross Signature: Date CC: Signed Normal [facility] MR/VLHAOYLV6pj 06-19-2024 [facility] Medical Records Department [address] [place] [address] Anesthesia Postop Eval II 06/19/24 1704 MR#: [id number] Acct: [id number] Name: BARBARA QUINTANILLA Rep #: [id number] : 1990 33 From: Alan Paris MD PCP: ROBERTA GerardC Status:[facility] Y Race: C Location: [place] Anesthesia Postop Eval I Sum Postop Eval Completion status Anesthesia document: Postop Eval 1 completed: Yes Anesthesia Postop Eval I Summary Anesthesia Postop Eval I Summary: Anesthesia Postop Eval I: Assessment Summary Airway patent Yes 06/19/24 16:03 [email or web address] Spontaneous unlabored Yes 06/19/24 16:03 [email or web address] respirations Mental status Awake 06/19/24 16:03 [email or web address] nausea No 06/19/24 16:03 [email or web address] Vomiting No 06/19/24 16:03 [email or web address] Anesthesia Postop Eval I: Fluid Summary Crystalloid volume administer 20 06/19/24 16:03 [email or web address] (ml) Colloids volume administered ( ml) Blood Product volume administered (ml) Total IV fluid infused 20 06/19/24 16:03 [email or web address] Anesthesia Postop Eval I: Summary Notes Anesthesia Complication No 06/19/24 16:03 [email or web address] Anesthesia Complication Comment: Post-operative progress note Anesthesia: Postop Eval II Evaluation Mental status: Awake and Calm Pain Level: 0 nausea: No Vomiting: No Complications Anesthesia Complication: No 06/19/24 1704 Date Alan Cunha Signature: Date CC: Signed Normal [facility] Surgery Specimen Level Mary 06-19-2024 Surgery Specimen Level IV ---- Patient Age/Sex Location Account Attending Physician ---- BARBARA QUINTANILLA 33/F EN [id number] Igor Luke DO ---- Specimen: [id number] Received: 06/19/24 Status: SILVIA Freeman Num: [id number] Spec Type: EGD BIOPSY Subm Dr: Igor Luke DO HEADER OPERATION: EGD with biopsy PRE-OP DIAGNOSIS: Abdominal pain TISSUE SUBMITTED: A- Duodenum biopsy, B- Gastric body biopsy, C- Random esophagus biopsy ---- MICROSCOPIC DIAGNOSIS A. Duodenum, biopsy: Fragments of duodenal mucosa, no pathologic diagnosis. B. Gastric body, biopsy: Mild gastritis. See microscopic description and comment. C. Esophagus, random biopsy: Fragments of benign squamous epithelium. 06/21/2024 COMMENT B. The results of immunohistochemistry for Helicobacter pylori will be reported separately ([id number]). MICROSCOPIC DESCRIPTION Slides are reviewed. B. The specimen shows fragments of gastric mucosa with chronic inflammatory cell infiltrates in the lamina propria consisting of lymphocytes and plasma cells, consistent with mild chronic gastritis. GROSS DESCRIPTION A. Received in fixative is one container labeled with the patient's name and designated Duodenum biopsy. The specimen consists of multiple irregular fragments of light pérez soft tissue that in aggregate measure 1.0 x 0.3 x 0.1 cm. The specimen is totally submitted in one cassette. B. Received in fixative is one container labeled with the patient's name and designated Gastric body biopsy. The specimen consists of two irregular fragments of light pérez soft tissue that in aggregate measure 0.4 x 0.3 x 0.1 cm. The specimen is totally submitted in one cassette. C. Received in fixative is one container labeled with the patient's name and designated Random esophagus biopsy. The specimen consists of two irregular fragments of light pérez soft tissue that in aggregate measure 0.6 x 0.3 x 0.1 cm. The specimen is totally submitted in one cassette. 06/20/2024 TC:3 CPT:28928w1 ---- Patient Age/Sex Location Account Attending Physician ---- BARBARA QUINTANILLA 33/F EN [id number] Igor Luke, DO ---- Signed (signature on file) Dr. Maximilian Morris MD 06/21/24 1204 ---- [facility] Comment on above: Performed By: #### P SUIV ####[facility] [address] [place], [address] Lipid Profileon 06-16-2024 Cholesterol [Mass/Vol] 186 mg/dL Normal 200 [facility] Comment on above: Result Comment: <200 mg/dL Desirable 200-240 mg/dL Borderline >240 mg/dL High Risk Performed By: #### L 3300.0940, L500.4100 ####[facility] [address] [place], [address] Cholesterol in HDL [Mass/Vol] 76 mg/dL Normal [facility] Comment on above: Result Comment: The drugs N-Acetylcysteine and Metamizole may falsely depress this assay. Reference Range HDL <40 mg/dL Low HDL Cholesterol HDL >or= 60 mg/dL High HDL Cholesterol Performed By: #### L 3300.0940, L500.4100 ####[facility] [address] [place], [address] Cholesterol in LDL [Mass/Vol] 98 mg/dL Normal 0-130 [facility] Comment on above: Performed By: #### L 3300.0940, L500.4100 ####[facility] [address] [place], [address] Cholesterol in VLDL [Mass/Vol] 12 mg/dL Normal 5-40 [facility] Comment on above: Performed By: #### L 3300.0940, L500.4100 ####[facility] [address] [place], [address] Triglyceride [Mass/Vol] 61 mg/dL Normal [facility] Comment on above: Result Comment: The drugs N-Acetylcysteine and Metamizole may falsely depress this assay. Serum Triglycerides Reference Interval Normal <150 mg/dL Borderline high 150 - 199 mg/dL High 200 - 499 mg/dL Very High > or = 500 mg/dL Performed By: #### L 3300.0940, L500.4100 ####[facility] [address] [place], [address] Basic Metabolic Profile (BMP )on 06-01-2024 BUN/CRE 15.9 RATIO Normal 10-20 [facility] Comment on above: Order Comment: ACCOUNTING CLERKS SUPERVISOR MA ST ORDERED UAC W/C SNP NIA ORDERED BMP Performed By: #### L 400.0001, L500.2500 ####[facility] [address] [place], [address] CA,Total 10.1 mg/dL Normal 8.5-10.1 [facility] Comment on above: Order Comment: ACCOUNTING CLERKS SUPERVISOR MA ST ORDERED UAC W/C SNP NIA ORDERED BMP Performed By: #### L 400.0001, L500.2500 ####[facility] [address] [place], [address] Chloride [Moles/Vol] 102 mmol/L Normal 98-107 [facility] Comment on above: Order Comment: ACCOUNTING CLERKS SUPERVISOR MA ST ORDERED UAC W/C SNP NIA ORDERED BMP Performed By: #### L 400.0001, L500.2500 ####[facility] [address] [place], [address] CO2 [Moles/Vol] 30.0 mmol/L Normal 21.0-32.0 [facility] Comment on above: Order Comment: ACCOUNTING CLERKS SUPERVISOR MA ST ORDERED UAC W/C SNP NIA ORDERED BMP Performed By: #### L 400.0001, L500.2500 ####[facility] [address] [place], [address] Creatinine [Mass/Vol] 0.63 mg/dL Normal 0.55-1.02 [facility] Comment on above: Order Comment: ACCOUNTING CLERKS SUPERVISOR MA ST ORDERED UAC W/C SNP NIA ORDERED BMP Result Comment: The validity of the calculated GFR GFRAA in patients over 70 years has not been determined. Clinical correlation is essential. Performed By: #### L 400.0001, L500.2500 ####[facility] [address] [place], [address] EST GFR - AA 139 mL/min Normal >60 [facility] Comment on above: Order Comment: ACCOUNTING CLERKS SUPERVISOR TITA PETERS ORDERED UAC W/C SNP NIA ORDERED BMP Result Comment: Afri can Australian GFR Calc Performed By: #### L 400.0001, L500.2500 ####[facility] [address] [place], [address] GAP 4 Low 5-15 [facility] Comment on above: Order Comment: ACCOUNTING CLERKS SUPERVISOR TITA ST ORDERED UAC W/C SNP NIA ORDERED BMP Performed By: #### L 400.0001, L500.2500 ####[facility] [address] [place], [address] GFR/1.73 sq M.predicted among non-blacks MDRD (S/P/Bld) [Vol rate/Area] 115 mL/min/{1.73_m2} Normal >60 [facility] Comment on above: Order Comment: ACCOUNTING CLERKS SUPERVISOR TITA PETERS ORDERED UAC W/C SNP NIA ORDERED BMP Result Comment: Non- GFR Calc Performed By: #### L 400.0001, L500.2500 ####[facility] [address] [place], [address] Glucose [Mass/Vol] 82 mg/dL Normal 74-106 [facility] Comment on above: Order Comment: ACCOUNTING CLERKS SUPERVISOR TITA ST ORDERED UAC W/C SNP NIA ORDERED BMP Performed By: #### L 400.0001, L500.2500 ####[facility] [address] [place], [address] Potassium [Moles/Vol] 4.3 mmol/L Normal 3.5-5.1 [facility] Comment on above: Order Comment: ACCOUNTING CLERKS SUPERVISOR TITA ST ORDERED UAC W/C SNP NIA ORDERED BMP Performed By: #### L 400.0001, L500.2500 ####[facility] [address] [place], [address] Sodium [Moles/Vol] 136 mmol/L Normal 136-145 [facility] Comment on above: Order Comment: ACCOUNTING CLERKS SUPERVISOR MA ST ORDERED UAC W/C SNP NIA ORDERED BMP Performed By: #### L 400.0001, L500.2500 ####[facility] [address] [place], [address] Urea nitrogen [Mass/Vol] 10 mg/dL Normal 7-18 [facility] Comment on above: Order Comment: ACCOUNTING CLERKS SUPERVISOR MA ST ORDERED UAC W/C SNP NIA ORDERED BMP Performed By: #### L 400.0001, L500.2500 ####[facility] [address] [place], [address] Urinalysis, Completeon 06-01 EPI,SQUAMOUS 0-5 SEEN Normal 5-10 [facility] Comment on above: Order Comment: ACCOUNTING CLERKS SUPERVISOR MA ST ORDERED UAC W/C SNP NIA ORDERED BMPCLEAN CATCH Performed By: #### L 400.0001, L500.2500 ####[facility] [address] [place], [address] BACTERIA 0 SEEN Normal None Seen [facility] Comment on above: Order Comment: ACCOUNTING CLERKS SUPERVISOR MA ST ORDERED UAC W/C SNP NIA ORDERED BMPCLEAN CATCH Performed By: #### L 400.0001, L500.2500 ####[facility] [address] [place], [address] Mucus Ql (Urine sed) 0 SEEN Normal [facility] Comment on above: Order Comment: ACCOUNTING CLERKS SUPERVISOR MA ST ORDERED UAC W/C SNP NIA ORDERED BMPCLEAN CATCH Performed By: #### L 400.0001, L500.2500 ####[facility] [address] [place], [address] RBC 0 SEEN Normal 0-5 [facility] Comment on above: Order Comment: ACCOUNTING CLERKS SUPERVISOR MA ST ORDERED UAC W/C SNP NIA ORDERED BMPCLEAN CATCH Performed By: #### L 400.0001, L500.2500 ####[facility] [address] [place], [place], [address] WBC 0 SEEN Normal 0-5 [facility] Comment on above: Order Comment: KIA PETERS ORDERED UAC W/C LAKISHA KRAMER ORDERED BMPCLEAN CATCH Performed By: #### L 400.0001, L500.2500 ####[facility] [address] [place], [place], [address] Abdomen Completeon 4 Abdomen Complete [facility] Imaging Services [address] [place], [place] [address] Abdomen Complete MR#: [id number] Acct: [id number] Name: BARBARA QUINTANILLA Rep #: [id number] : 1990 F 33 From: Sixto persaud MD PCP: Stephanie Kramer, CHARLY Status: REG CLI Study: Abdomen Complete Date of Exam: 05/31/24 Exam# [id number] Ordering Dr: ELDER CORADO [id number] STUDY: ABDOMINAL ULTRASOUND REASON FOR EXAM: Female, 33 years old. PAIN/BLOATING/DIARRHEA TECHNIQUE: Transabdominal ultrasound was performed with real-time and static soriano scale imaging. TECHNICAL QUALITY: Adequate. COMPARISON: Comparison is made with prior study dated May 31, 2023. FINDINGS: Liver: The liver measures 14.3 cm. There is normal echogenicity of the liver. The bile ducts are within normal limits. There is hepatic color flow. The direction of portal flow is hepatopetal. There is no demonstrated mass lesion. Gallbladder: Normal distended gallbladder. The gallbladder wall measures 2.0 mm. There is a negative sonographic Dubon''s sign. There is no pericholecystic fluid. There are no gallstones. Common Bile Duct (C.B.D.): The common bile duct measures 3.0 mm. Pancreas: Normal size of the head, body and tail of the pancreas. There is normal echogenicity of the pancreas. There is no demonstrated pancreatic mass or cyst. Spleen: Normal size of the spleen. The spleen measures 10.6 cm x 5.4 cm x 4.7 cm. Right Kidney: Normal size of the right kidney. The right kidney measures 10.4 cm x 5 cm x 3.3 cm. Normal renal cortex. The right cortex measures 1.2 cm. There is no demonstrated renal mass or cyst. There is no right hydronephrosis. Left Kidney: Normal size of the left kidney. The left kidney measures 10.1 cm x 4.5 cm x 4.6 cm. Normal renal cortex. The left cortex measures 1.7 cm. There is no demonstrated renal mass or cyst. There is no left hydronephrosis. Aorta: Unremarkable I.V.C.: The IVC is patent. There is no ascites. US/Abdomen Complete IMPRESSION: Normal abdominal ultrasound examination. Electronically Signed: Sixto Monge MD at 8:05 EDT Reading Location ID and State: [address] [place] [address] , Service support , CC: CHARLY Kramer; SARAH MOON Bench Machine Operator: Signed Normal [facility] CBC-Complete Blood Cnt No Di ffon 05-23-2024 Erythrocyte distribution width (RBC) [Ratio] 13.0 % Normal 11.6-14.6 [facility] Comment on above: Performed By: #### L 500.4050, L538.0403, L100.0500 ####[facility] [address] [place], [place], [phone]) Hematocrit (Bld) [Volume fraction] 44.3 % Normal 37-47 [facility] Comment on above: Performed By: #### L 500.4050, L501.7092, L100.0500 ####[facility] [address] [place], [place], [phone](991) Hemoglobin (Bld) [Mass/Vol] 14.1 g/dL Normal 12.0-15.0 [facility] Comment on above: Performed By: #### L 500.4050, L501.9520, L100.0500 ####[facility] [address] [place], [address] MCH (RBC) [Entitic mass] 26.3 pg Low 27.0-32.0 [facility] Comment on above: Performed By: #### L 500.4050, L501.9520, L100.0500 ####[facility] [address] [place], [address] MCHC (RBC) [Mass/Vol] 31.8 g/dL Low 32-36 [facility] Comment on above: Performed By: #### L 500.4050, L501.9520, L100.0500 ####[facility] [address] [place], [address] MCV (RBC) [Entitic vol] 82.5 fL Normal 81-99 [facility] Comment on above: Performed By: #### L 500.4050, L501.9520, L100.0500 ####[facility] [address] [place], [address] Platelet mean volume (Bld) [Entitic vol] 9.8 fL Normal 6.2-12.0 [facility] Comment on above: Performed By: #### L 500.4050, L501.9520, L100.0500 ####[facility] [address] [place], [address] Platelets (Bld) [#/Vol] 168 10*3/uL Normal 150-450 [facility] Comment on above: Performed By: #### L 500.4050, L501.9520, L100.0500 ####[facility] [address] [place], [address] RBC (Bld) [#/Vol] 5.37 10*6/uL Normal 4.2-5.4 [facility] Comment on above: Performed By: #### L 500.4050, L501.9520, L100.0500 ####[facility] [address] [place], [address] RDW SD 39.2 fl Normal 35.1-43.9 [facility] Comment on above: Performed By: #### L 500.4050, L501.9520, L100.0500 ####[facility] [address] [place], [address] WBC (Bld) [#/Vol] 4.8 10*3/uL Normal 4.4-11.0 [facility] Comment on above: Performed By: #### L 500.4050, L501.9520, L100.0500 ####[facility] [address] [place], [address] CVFLURVon 05-23-2024 FLU A PCR Negative Normal Negative [facility] Comment on above: Performed By: #### C VFLURV #### [address] [address] FLU B PCR Negative Normal Negative [facility] Comment on above: Performed By: #### C VFLURV #### [address] [address] RSV PCR Negative Normal Negative [facility] Comment on above: Performed By: #### C VFLURV #### [address] [address] SARS-CoV-2 (COVID-19) RNA VON+probe Ql (Unsp spec) Negative Normal Negative [facility] Comment on above: Result Comment: Resu lts from the Xpert Xpress CoV-2/Flu/RSV plus test should be correlated with the clinical history, epidemiological data, and other data available to the clinical evaluating the patient. Performance of the Xpert Xpress CoV-2/Flu/RSV plus test has only been established in nasopharyngeal swab specimen. Erroneous test results might occur from improper specimen collection, failure to follow the recommended sample collection, handling and storage procedures, technical error, or sample mix-up. False negative results may occur if a virus is present at a level below the analytical limit of detection. Viral nucleic acid may persist in vivo, independent of virus viability. Detection of analyte target(s) does not imply that the corresponding virus(es) are infectious or are the causative agents for clinical symptoms. Recent patient exposure to FluMist or other live attenuated influenza vaccines may cause inaccurate positive results. Performed By: #### C VFLURV #### [facility] [address] [place], [place] [address] [facility] Metabolic Prof [facility] 05-23-2024 Albumin [Mass/Vol] 3.5 g/dL Normal 3.2-5.0 [facility] Comment on above: Performed By: #### L 500.4050, L501.9520, L100.0500 ####[facility] [address] [place], [address] Albumin/Globulin [Mass ratio] 0.9 {ratio} Normal 0.9-2.4 [facility] Comment on above: Performed By: #### L 500.4050, L501.9520, L100.0500 ####[facility] [address] [place], [address] ALK P 52 U/L Normal 45-117 [facility] Comment on above: Performed By: #### L 500.4050, L501.9520, L100.0500 ####[facility] [address] [place], [address] ALT [Catalytic activity/Vol] 30 U/L Normal 13-56 [facility] Comment on above: Performed By: #### L 500.4050, L501.9520, L100.0500 ####[facility] [address] [place], [address] AST [Catalytic activity/Vol] 26 U/L Normal 15-37 [facility] Comment on above: Performed By: #### L 500.4050, L501.9520, L100.0500 ####[facility] [address] [place], [address] Bilirubin [Mass/Vol] 0.90 mg/dL Normal 0.20-1.00 [facility] Comment on above: Result Comment: For patients on eltrombopag therapy, use of Dimension [place] TBIL is not recommended. Performed By: #### L 500.4050, L501.9520, L100.0500 ####[facility] [address] [place], [address] BUN/CRE 16.1 RATIO Normal 10-20 [facility] Comment on above: Performed By: #### L 500.4050, L501.9520, L100.0500 ####[facility] [address] [place], [address] CA,Total 9.4 mg/dL Normal 8.5-10.1 [facility] Comment on above: Performed By: #### L 500.4050, L501.9520, L100.0500 ####[facility] [address] [place], [address] Chloride [Moles/Vol] 104 mmol/L Normal 98-107 [facility] Comment on above: Performed By: #### L 500.4050, L501.9520, L100.0500 ####[facility] [address] [place], [address] CO2 [Moles/Vol] 26.0 mmol/L Normal 21.0-32.0 [facility] Comment on above: Performed By: #### L 500.4050, L501.9520, L100.0500 ####[facility] [address] [place], [address] Creatinine [Mass/Vol] 0.62 mg/dL Normal 0.55-1.02 [facility] Comment on above: Result Comment: The validity of the calculated GFR GFRAA in patients over 70 years has not been determined. Clinical correlation is essential. Performed By: #### L 500.4050, L501.9520, L100.0500 ####[facility] [address] [place], [address] EST GFR - AA 141 mL/min Normal >60 [facility] Comment on above: Result Comment: Afri can Australian GFR Calc Performed By: #### L 500.4050, L501.9520, L100.0500 ####[facility] [address] [place], [address] GAP 11 Normal 5-15 [facility] Comment on above: Performed By: #### L 500.4050, L501.9520, L100.0500 ####[facility] [address] [place], [address] GFR/1.73 sq M.predicted among non-blacks MDRD (S/P/Bld) [Vol rate/Area] 116 mL/min/{1.73_m2} Normal >60 [facility] Comment on above: Result Comment: Non- GFR Calc Performed By: #### L 500.4050, L501.9520, L100.0500 ####[facility] [address] [place], [address] Globulin (S) [Mass/Vol] 3.7 g/dL Normal 2.2-4.2 [facility] Comment on above: Performed By: #### L 500.4050, L501.9520, L100.0500 ####[facility] [address] [place], [address] Glucose [Mass/Vol] 92 mg/dL Normal 74-106 [facility] Comment on above: Performed By: #### L 500.4050, L501.9520, L100.0500 ####[facility] [address] [place], [address] Potassium [Moles/Vol] 3.3 mmol/L Low 3.5-5.1 [facility] Comment on above: Performed By: #### L 500.4050, L501.9520, L100.0500 ####[facility] [address] [place], [address] Sodium [Moles/Vol] 141 mmol/L Normal 136-145 [facility] Comment on above: Performed By: #### L 500.4050, [id number], L100.0500 ####[facility] [address] [place], [address] T PROT 7.2 g/dL Normal 6.4-8.2 [facility] Comment on above: Performed By: #### L 500.4050, [id number], L100.0500 ####[facility] [address] [place], [address] Urea nitrogen [Mass/Vol] 10 mg/dL Normal 7-18 [facility] Comment on above: Performed By: #### L 500.4050, [id number], L100.0500 ####[facility] [address] [place], [address] LABORATORYOrdered By: Dillan Dubon on 05-23-2024 FLUAV RNA VON+probe Ql (Resp) Negative (05/23/24 8:35 AM) Normal AO Auto Urine SS FLUBV RNA VON+probe Ql (Resp) Negative (05/23/24 8:35 AM) Normal AO Auto Urine SS RSV RNA VON+probe Ql (Resp) Negative (05/23/24 8:35 AM) Normal AO Auto Urine SS SARS-CoV-2 (COVID-19) RNA VON+probe Ql (Resp) Negative 1 (05/23/24 8:35 AM) Normal AO Auto Urine SS Comment on above: Interpretive Data: R esults from the Xpert Xpress CoV-2/Flu/RSV plus test should be correlated with the clinical history, epidemiological data, and other data available to the clinical evaluating the patient. Performance of the Xpert Xpress CoV-2/Flu/RSV plus test has only been established in nasopharyngeal swab specimen. Erroneous test results might occur from improper specimen collection, failure to follow the recommended sample collection, handling and storage procedures, technical error, or sample mix-up. False negative results may occur if a virus is present at a level below the analytical limit of detection. Viral nucleic acid may persist in vivo, independent of virus viability. Detection of analyte target(s) does not imply that the corresponding virus(es) are infectious or are the causative agents for clinical symptoms. Recent patient exposure to FluMist or other live attenuated influenza vaccines may cause inaccurate positive results. Thyroid Stim Hormone (TSH)on 05-23-2024 TSH 2.650 uIU/mL Normal 0.358-3.740 [facility] Comment on above: Performed By: #### L 500.4050, [id number], L100.0500 ####[facility] [address] [place], [address] Basophil percentageOrdered B y: Stephanie Nia on 11-10-2023 Bilirubin [Mass/Vol] 0.90 mg/dL 0.20-1.00 [facility] Comment on above: For patients on eltr ombopag therapy, use of Dimension [place] TBIL is not recommended. Chloride [Moles/Vol] 105 mmol/L 98-107 [facility] Glucose [Mass/Vol] 87 mg/dL 74-106 [facility] Hemoglobin (Bld) [Mass/Vol] 13.4 g/dL 12.0-15.0 [facility] Potassium [Moles/Vol] 4.0 mmol/L 3.5-5.1 [facility] Protein [Mass/Vol] 7.2 g/dL 6.4-8.2 [facility] Sodium [Moles/Vol] 141 mmol/L 136-145 [facility] WBC (Bld) [#/Vol] 9.4 10*3/uL 4.4-11.0 [facility] Determination of erythrocyte mean corpuscular volume (MCV)Ordered By: Stephanie Kramer on 11-10-2023 MCV (RBC) [Entitic vol] 83.4 fL 81-99 [facility] Erythrocyte distribution wid th ratioOrdered By: Stephanie Kramer on 11-10-2023 Erythrocyte distribution width (RBC) [Ratio] 13.1 % 11.6-14.6 [facility] Erythrocyte distribution wid th standard deviationOrdered By: Stephanie Kramer on 11-10-2023 Erythrocyte distribution width (RBC) [Entitic vol] 39.4 fL 35.1-43.9 [facility] Hematocrit Auto (Bld) [Volum e fraction]Ordered By: Stephanie Kramer on 11-10-2023 Hematocrit (Bld) [Volume fraction] 43.3 % 37-47 [facility] Iron measurement (mass/mass) Ordered By: Stephanie Kramer on 11-10-2023 Iron (Unsp spec) [Mass/Mass] 78 ug/dL 50-170 [facility] Laboratory - Chemistry and C hemistry - challengeOrdered By: Stephanie Krmaer on 11-10-2023 Albumin/Globulin [Mass ratio] 1.2 {ratio} 0.9-2.4 [facility] ALP [Catalytic activity/Vol] 38 U/L 45-117 [facility] ALT [Catalytic activity/Vol] 18 U/L 13-56 [facility] CO2 [Moles/Vol] 29.0 mmol/L 21.0-32.0 [facility] Cobalamin (Vitamin B12) [Mass/Vol] 872 pg/mL 211-911 [facility] Globulin (S) [Mass/Vol] 3.3 g/dL 2.2-4.2 [facility] Magnesium [Mass/Vol] 2.1 mg/dL 1.6-2.6 [facility] Urea nitrogen/Creatinine [Mass ratio] 18.4 mg/mg 10-20 [facility] Laboratory - Hematology and Cell countsOrdered By: Stephanie Kramer on 11-10-2023 MCH (RBC) [Entitic mass] 25.8 pg 27.0-32.0 [facility] MCHC (RBC) [Mass/Vol] 30.9 g/dL 32-36 [facility] Platelet mean volume (Bld) [Entitic vol] 10.0 fL 6.2-12.0 [facility] Platelets (Bld) [#/Vol] 310 10*3/uL 150-450 [facility] No Panel InformationOrdered By: Stephanie Kramer on 11-10-2023 Estimated GFR (MDRD) Amer 134 mL/min >60 [facility] Comment on above: GFR Calc Estimated GFR (MDRD) Non-Af Amer 110 mL/min >60 [facility] Comment on above: Non- GFR Calc Folate 6.40 ng/mL 3.1-55.4 [facility] Total Iron Binding Capacity 297 ug/dL 250-450 [facility] Vitamin D 25-Hydroxy 35.8 ng/mL [facility] Comment on above: Vitamin D 25(OH) Sta tus Range Deficiency <20 ng/mL (50nmol/L) Insufficiency 20 - 30 ng/mL (50 - 75 nmol/L) Sufficiency 30 - 100 ng/mL (75 - 250 nmol/L) Toxicity >100 ng/mL (>250 nmol/L) RBC Auto (Bld) [#/Vol]Ordere d By: Stephanie Kramer on 11-10-2023 RBC (Bld) [#/Vol] 5.19 10*6/uL 4.2-5.4 [facility] Serum or plasma calcium nikole urement (mass/volume)Ordered By: Stephanie Kramer on 11-10-2023 Calcium [Mass/Vol] 8.7 mg/dL 8.5-10.1 [facility] Serum or plasma creatinine m easurement (mass/volume)Ordered By: Stephanie Kramer on 11-10-2023 Creatinine [Mass/Vol] 0.65 mg/dL 0.55-1.02 [facility] Comment on above: The validity of the calculated GFR & GFRAA in patients over 70 years has not been determined. Clinical correlation is essential. Serum or plasma iron saturat ion measurement (mass fraction)Ordered By: Stephanie Kramer on 11-10-2023 Iron saturation [Mass fraction] 26.3 % 15.0-55.0 [facility] Serum or plasma thyroid stim ulating hormone (TSH) measurement (units/volume)Ordered By: Stephanie Kramer on 11-10-2023 TSH Qn 0.55 uIU/mL 0.358-3.74 [facility] Serum or plasma urea nitroge n measurement (mass/volume)Ordered By: Stephanie Kramer on 11-10-2023 Urea nitrogen [Mass/Vol] 12 mg/dL 7-18 [facility] Thin prep Papanicolaou smear with manual screeningOrdered By: Stephanie Kramer on 11-10-2023 Thin prep Papanicolaou smear with manual screening 3.9 g/dL 3.2-5.0 [facility] Thin prep Papanicolaou smear with manual screening 11 U/L 15-37 [facility] Thin prep Papanicolaou smear with manual screening 7 5-15 [facility] Thin prep Papanicolaou smear with manual screening 1.07 ng/dL 0.76-1.46 [facility] Erythrocyte sedimentation ra teOrdered By: Jed Harp on 10-31-2023 ESR (Bld) [Velocity] 15 mm/h 0-30 [facility] Basophil percentageOrdered B y: Stephanie Kramer on 05-31-2023 Amylase [Catalytic activity/Vol] 33 U/L 25-115 [facility] Bilirubin [Mass/Vol] 0.70 mg/dL 0.20-1.00 [facility] Comment on above: For patients on eltr ombopag therapy, use of Dimension [place] TBIL is not recommended. Chloride [Moles/Vol] 107 mmol/L 98-107 [facility] Glucose [Mass/Vol] 90 mg/dL 74-106 [facility] Potassium [Moles/Vol] 3.7 mmol/L 3.5-5.1 [facility] Protein [Mass/Vol] 7.3 g/dL 6.4-8.2 [facility] Sodium [Moles/Vol] 140 mmol/L 136-145 [facility] WBC (Bld) [#/Vol] 6.8 10*3/uL 4.4-11.0 [facility] Blood erythrocytes count (nu mber/volume)Ordered By: Stephanie Kramer on 05-31-2023 RBC (Bld) [#/Vol] 5.00 10*6/uL 4.2-5.4 [facility] Blood hemoglobin measurement (mass/volume)Ordered By: Stephanie Kramer on 05-31-2023 Hemoglobin (Bld) [Mass/Vol] 13.2 g/dL 12.0-15.0 [facility] Blood platelet mean volumeOr dered By: Stephanie Kramer on 05-31-2023 Platelet mean volume (Bld) [Entitic vol] 10.3 fL 6.2-12.0 [facility] Chocolate RASTOrdered By: Jose jazmyn Nia on 05-31-2023 Chocolate IgE Qn (S) <0.10 kU/L Class 0 [facility] Comment on above: Effective June 06, 2023 [id number] Allergen Profile, BasicFood be made non-orderable. [facility] offers [id number](14). Determination of erythrocyte mean corpuscular volume (MCV)Ordered By: Stephanie Kraemr on 05-31-2023 MCV (RBC) [Entitic vol] 86.6 fL 81-99 [facility] Hematocrit Auto (Bld) [Volum e fraction]Ordered By: Stephanie Kramer on 05-31-2023 Hematocrit (Bld) [Volume fraction] 43.3 % 37-47 [facility] Iron measurement (mass/mass) Ordered By: Stephanie Kramer on 05-31-2023 Iron (Unsp spec) [Mass/Mass] 33 ug/dL 50-170 [facility] - Chemistry and C hemistry - challengeOrdered By: Stephanie Kramer on 05-31-2023 ALP [Catalytic activity/Vol] 51 U/L 45-117 [facility] ALT [Catalytic activity/Vol] 22 U/L 13-56 [facility] CO2 [Moles/Vol] 27.0 mmol/L 21.0-32.0 [facility] Globulin (S) [Mass/Vol] 3.7 g/dL 2.2-4.2 [facility] Lipase [Catalytic activity/Vol] 26 U/L 13-75 [facility] Comment on above: Please note:LIPASE r evised reference range effective 22. New Lipase methodology. Expected to produce lower values than the previous assay method. NEW Reference Range: 13 - 75 U/L Urea nitrogen/Creatinine [Mass ratio] 16.8 mg/mg 10-20 [facility] - Hematology and Cell countsOrdered By: Stephanie Kramer on 05-31-2023 Erythrocyte distribution width (RBC) [Entitic vol] 40.9 fL 35.1-43.9 [facility] Erythrocyte distribution width (RBC) [Ratio] 13.2 % 11.6-14.6 [facility] MCH (RBC) [Entitic mass] 26.4 pg 27.0-32.0 [facility] - Miscellaneous t estsOrdered By: Stephanie Kramer on 05-31-2023 Service comment (Unsp spec) [Interp] Comment . [facility] Comment on above: Levels of Specific I gE Class Description of Class ----- < 0.10 0 Negative 0.10 - 0.31 0/I Equivocal/Low 0.32 - 0.55 I Low 0.56 - 1.40 II Moderate 1.41 - 3.90 III High 3.91 - 19.00 IV Very High 19.01 - 100.00 V Very High >100.00 [facility] MCHC Auto (RBC) [Mass/Vol]Or dered By: Stephanie Kramer on 05-31-2023 MCHC (RBC) [Mass/Vol] 30.5 g/dL 32-36 [facility] No Panel InformationOrdered By: Stephanie Kramer on 05-31-2023 Anti-Gliadin IgA Antibody 8 units 0-19 [facility] Comment on above: Negative 0 - 19 Weak Positive 20 - 30 Moderate to Strong Positive >30 Anti-Gliadin IgG Antibody 2 units 0-19 [facility] Comment on above: Negative 0 - 19 Weak Positive 20 - 30 Moderate to Strong Positive >30 Estimated GFR (MDRD) Amer 149 mL/min >60 [facility] Comment on above: GFR Calc Estimated GFR (MDRD) Non-Af Amer 123 mL/min >60 [facility] Comment on above: Non- GFR Calc [employer] Allergens (RAST) Negative . [facility] Comment on above: Allergens in this mi x are: Blue mussel Fish [place] Shrimp TunaEffective June 06, 2023 [id number] PG50-FhA Food Mix(Seafoods) will be made non-orderable. [facility] [id number] Allergens(5). Total Iron Binding Capacity 330 ug/dL 250-450 [facility] Platelets bldOrdered By: Patricia Kramer on 05-31-2023 Platelets (Bld) [#/Vol] 212 10*3/uL 150-450 [facility] Serum beef IgE antibody assa y (units/volume)Ordered By: Stephanie Kramer on 05-31-2023 Beef IgE Qn (S) <0.10 kU/L Class 0 [facility] Serum cheese cheddar type Ig E antibody assay (units/volume)Ordered By: Stephanie Kramer on 05-31-2023 Cheese cheddar type IgE Qn (S) <0.10 kU/L Class 0 [facility] Comment on above: Performed at: [address] [id number] Director: Camilo Major MD, Phone: [phone] Serum chicken IgE antibody a ssay (units/volume)Ordered By: Stephanie Kramer on 05-31-2023 Chicken IgE Qn (S) <0.10 kU/L Class 0 [facility] Serum corn IgE antibody assa y (units/volume)Ordered By: Stephanie Kramer on 05-31-2023 [place] IgE Qn (S) <0.10 kU/L Class 0 [facility] Serum cow milk IgE antibody assay (units/volume)Ordered By: Stephanie Kramer on 05-31-2023 Cow milk IgE Qn (S) <0.10 kU/L Class 0 [facility] Serum egg white IgE antibody assay (units/volume)Ordered By: Stephanie Kramer on 05-31-2023 Egg white IgE Qn (S) <0.10 kU/L Class 0 [facility] Serum egg yolk IgE antibody assay (units/volume)Ordered By: Stephanie Kramer on 05-31-2023 Egg yolk IgE Qn (S) <0.10 kU/L Class 0 [facility] Serum gluten IgE antibody as say (units/volume)Ordered By: Stephanie Kramer on 05-31-2023 Gluten IgE Qn (S) <0.10 kU/L Class 0 [facility] Serum or plasma albumin nikole urement (mass/volume)Ordered By: Stephanie Kramer on 05-31-2023 Albumin [Mass/Vol] 3.6 g/dL 3.2-5.0 [facility] Serum or plasma albumin/glob ulin mass ratioOrdered By: Stephanie Kramer on 05-31-2023 Albumin/Globulin [Mass ratio] 1.0 {ratio} 0.9-2.4 [facility] Serum or plasma calcium nikole urement (mass/volume)Ordered By: Stephanie Kramer on 05-31-2023 Calcium [Mass/Vol] 8.7 mg/dL 8.5-10.1 [facility] Serum or plasma creatinine m easurement (mass/volume)Ordered By: Stephanie Kramer on 05-31-2023 Creatinine [Mass/Vol] 0.60 mg/dL 0.55-1.02 [facility] Comment on above: The validity of the calculated GFR & GFRAA in patients over 70 years has not been determined. Clinical correlation is essential. Serum or plasma ferritin misbah surement (mass/volume)Ordered By: Stephanie Kramer on 05-31-2023 Ferritin [Mass/Vol] 79 ng/mL 8-252 [facility] Serum or plasma iron saturat ion measurement (mass fraction)Ordered By: Stephanie Kramer on 05-31-2023 Iron saturation [Mass fraction] 10.0 % 15.0-55.0 [facility] Serum or plasma urea nitroge n measurement (mass/volume)Ordered By: Stephanie Kramer on 05-31-2023 Urea nitrogen [Mass/Vol] 10 mg/dL 7-18 [facility] Serum peanut IgE antibody as say (units/volume)Ordered By: Stephanie Kramer on 05-31-2023 Peanut IgE Qn (S) <0.10 kU/L Class 0 [facility] Serum pork IgE antibody assa y (units/volume)Ordered By: Stephanie Kramer on 05-31-2023 Pork IgE Qn (S) <0.10 kU/L Class 0 [facility] Serum soybean IgE antibody a ssay (units/volume)Ordered By: Stephanie Kramer on 05-31-2023 Soybean IgE Qn (S) <0.10 kU/L Class 0 [facility] Serum tissue transglutaminas e IgA antibody assay (units/volume)Ordered By: Stephanie Kramer on 05-31-2023 tTG IgA Qn (S) <2 U/mL 0-3 [facility] Comment on above: Negative 0 - 3 Weak Positive 4 - 10 Positive >10 Tissue Transglutaminase (tTG) has been identified as the endomysial antigen. Studies have demonstr- ated that endomysial IgA antibodies have over 99% specificity for gluten sensitive enteropathy.Performed at: [address] [id number] Director: Gil Alves PhD, Phone: [phone] Serum wheat IgE antibody ass ay (units/volume)Ordered By: Stephanie Kramer on 05-31-2023 Wheat IgE Qn (S) <0.10 kU/L Class 0 [facility] Serum white potato specific IgE antibody assayOrdered By: Stephanie Kramer on 05-31-2023 Potato IgE Qn (S) <0.10 kU/L Class 0 [facility] Serum whole egg IgE antibody assay (units/volume)Ordered By: Stephanie Kramer on 05-31-2023 Whole Egg IgE Qn (S) <0.10 kU/L Class 0 [facility] Thin prep Papanicolaou smear with manual screeningOrdered By: Stephanie Kramer on 05-31-2023 Thin prep Papanicolaou smear with manual screening 12 U/L 15-37 [facility] Thin prep Papanicolaou smear with manual screening 6 5-15 [facility] Laboratory - Microbiology an d Antimicrobial susceptibilityon 04-28-2023 SARS-CoV-2 (COVID-19) RNA VON+probe Ql (Unsp spec) Not detected [facility] No Panel Informationon 04-28 Influenza Types A,B Rapid (Clinic) Not detected [facility] Absolute lymphocyte countOrd ered By: HEALTH ASSESSMENT on 04-21-2023 Lymphocytes Auto (Unsp spec) [#/Vol] 2.22 10*3/uL 0.83-4.51 [facility] Absolute reticulocyte countO rdered By: HEALTH ASSESSMENT on 04-21-2023 Reticulocytes (Bld) [#/Vol] 0.00 10*3/uL 0-5 [facility] Basophil percentageOrdered B y: HEALTH ASSESSMENT on 04-21-2023 Basophil percentage 2.8 mg/dL 2.5-4.9 [facility] Bilirubin [Mass/Vol] 1.30 mg/dL 0.20-1.00 [facility] Comment on above: For patients on eltr ombopag therapy, use of Dimension [place] TBIL is not recommended. Chloride [Moles/Vol] 106 mmol/L 98-107 [facility] Cholesterol [Mass/Vol] 159 mg/dL <200 [facility] Comment on above: <200 mg/dL Desirable 200-240 mg/dL Borderline >240 mg/dL High Risk Glucose [Mass/Vol] 86 mg/dL 74-106 [facility] LDH [Catalytic activity/Vol] 146 U/L 84-246 [facility] Neutrophils (Bld) [#/Vol] 4.3 10*3/uL 2.0-7.7 [facility] Potassium [Moles/Vol] 3.5 mmol/L 3.5-5.1 [facility] Protein [Mass/Vol] 7.7 g/dL 6.4-8.2 [facility] Sodium [Moles/Vol] 138 mmol/L 136-145 [facility] Triglyceride [Mass/Vol] 83 mg/dL <199 [facility] Comment on above: The drugs N-Acetylcy steine and Metamizole may falsely depress this assay.Serum Triglycerides Reference Interval Normal <150 mg/dL Borderline high 150 - 199 mg/dL High 200 - 499 mg/dL Very High > or = 500 mg/dL WBC (Bld) [#/Vol] 7.1 10*3/uL 4.4-11.0 [facility] Bilirubin Test strip Ql (U)O rdered By: HEALTH ASSESSMENT on 04-21-2023 Bilirubin Ql (U) Negative Negative [facility] Blood erythrocytes count (nu mber/volume)Ordered By: HEALTH ASSESSMENT on 04-21-2023 RBC (Bld) [#/Vol] 5.16 10*6/uL 4.2-5.4 [facility] Blood hemoglobin measurement (mass/volume)Ordered By: HEALTH ASSESSMENT on 04-21-2023 Hemoglobin (Bld) [Mass/Vol] 13.7 g/dL 12.0-15.0 [facility] Blood platelet mean volumeOr dered By: HEALTH ASSESSMENT on 04-21-2023 Platelet mean volume (Bld) [Entitic vol] 9.9 fL 6.2-12.0 [facility] Determination of erythrocyte mean corpuscular volume (MCV)Ordered By: HEALTH ASSESSMENT on 04-21-2023 MCV (RBC) [Entitic vol] 85.9 fL 81-99 [facility] Direct bilirubinOrdered By: HEALTH ASSESSMENT on 04-21-2023 Bilirubin.direct [Mass/Vol] 0.30 mg/dL 0.00-0.30 [facility] Hematocrit Auto (Bld) [Volum e fraction]Ordered By: HEALTH ASSESSMENT on 04-21-2023 Hematocrit (Bld) [Volume fraction] 44.3 % 37-47 [facility] Ketones Test strip Ql (U)Ord ered By: HEALTH ASSESSMENT on 04-21-2023 Ketones Ql (U) 5 mg/dl Negative [facility] Laboratory - Chemistry and C hemistry - challengeOrdered By: HEALTH ASSESSMENT on 04-21-2023 ALP [Catalytic activity/Vol] 43 U/L 45-117 [facility] ALT [Catalytic activity/Vol] 17 U/L 13-56 [facility] Cholesterol.total/Haley sterol in HDL [Mass ratio] 2.60 {ratio} [facility] CO2 [Moles/Vol] 27.0 mmol/L 21.0-32.0 [facility] Globulin (S) [Mass/Vol] 3.6 g/dL 2.2-4.2 [facility] Urea nitrogen/Creatinine [Mass ratio] 11.2 mg/mg 10-20 [facility] - Hematology and Cell countsOrdered By: HEALTH ASSESSMENT on 04-21-2023 Erythrocyte distribution width (RBC) [Entitic vol] 40.4 fL 35.1-43.9 [facility] Erythrocyte distribution width (RBC) [Ratio] 13.0 % 11.6-14.6 [facility] MCH (RBC) [Entitic mass] 26.6 pg 27.0-32.0 [facility] Nucleated RBC/100 WBC (Bld) [Ratio] 0 % 0-5 [facility] MCHC Auto (RBC) [Mass/Vol]Or dered By: HEALTH ASSESSMENT on 04-21-2023 MCHC (RBC) [Mass/Vol] 30.9 g/dL 32-36 [facility] Nitrite Test strip Ql (U)Ord ered By: HEALTH ASSESSMENT on 04-21-2023 Nitrite Ql (U) Negative Negative [facility] No Panel InformationOrdered By: HEALTH ASSESSMENT on 04-21-2023 Estimated GFR (MDRD) Amer 120 mL/min >60 [facility] Comment on above: GFR Calc Estimated GFR (MDRD) Non-Af Amer 99 mL/min >60 [facility] Comment on above: Non- GFR Calc Platelets bldOrdered By: [facility] ASSESSMENT on 04-21-2023 Platelets (Bld) [#/Vol] 253 10*3/uL 150-450 [facility] Protein Test strip Ql (U)Ord ered By: HEALTH ASSESSMENT on 04-21-2023 Protein Ql (U) 15 mg/dl Negative [facility] Segmented neutrophils/100 WB C Auto (Bld)Ordered By: HEALTH ASSESSMENT on 04-21-2023 Segmented neutrophils/100 WBC (Bld) 61.0 % 47-70 [facility] Serum or plasma albumin nikole urement (mass/volume)Ordered By: HEALTH ASSESSMENT on 04-21-2023 Albumin [Mass/Vol] 4.1 g/dL 3.2-5.0 [facility] Serum or plasma albumin/glob ulin mass ratioOrdered By: HEALTH ASSESSMENT on 04-21-2023 Albumin/Globulin [Mass ratio] 1.1 {ratio} 0.9-2.4 [facility] Serum or plasma calcium nikole urement (mass/volume)Ordered By: HEALTH ASSESSMENT on 04-21-2023 Calcium [Mass/Vol] 9.0 mg/dL 8.5-10.1 [facility] Serum or plasma cholesterol in HDL measurement (mass/volume)Ordered By: HEALTH ASSESSMENT on 04-21-2023 Cholesterol in HDL [Mass/Vol] 61 mg/dL >40 [facility] Comment on above: The drugs N-Acetylcy steine and Metamizole may falsely depress this assay. Reference Range HDL <40 mg/dL Low HDL Cholesterol HDL >or= 60 mg/dL High HDL Cholesterol Serum or plasma cholesterol in VLDL measurement (mass/volume)Ordered By: HEALTH ASSESSMENT on 04-21-2023 Cholesterol in VLDL [Mass/Vol] 17 mg/dL 5-40 [facility] Serum or plasma creatinine m easurement (mass/volume)Ordered By: HEALTH ASSESSMENT on 04-21-2023 Creatinine [Mass/Vol] 0.72 mg/dL 0.55-1.02 [facility] Comment on above: The validity of the calculated GFR & GFRAA in patients over 70 years has not been determined. Clinical correlation is essential. Serum or plasma low density lipoprotein (LDL) cholesterol measurement (mass/volume)Ordered By: HEALTH ASSESSMENT on 04-21-2023 Cholesterol in LDL [Mass/Vol] 81 mg/dL 0-130 [facility] Serum or plasma urea nitroge n measurement (mass/volume)Ordered By: HEALTH ASSESSMENT on 04-21-2023 Urea nitrogen [Mass/Vol] 8 mg/dL 7-18 [facility] Serum or plasma uric acid me asurement (mass/volume)Ordered By: HEALTH ASSESSMENT on 04-21-2023 Urate [Mass/Vol] 4.4 mg/dL 2.6-6.0 [facility] Comment on above: The drugs N-Acetylcy steine and Metamizole may falsely depress this assay. Thin prep Papanicolaou smear with manual screeningOrdered By: HEALTH ASSESSMENT on 04-21-2023 Thin prep Papanicolaou smear with manual screening 11 U/L 15-37 [facility] Thin prep Papanicolaou smear with manual screening 5 5-15 [facility] Urine blood detectionOrdered By: HEALTH ASSESSMENT on 04-21-2023 RBC Ql (U) 10 /ul Negative [facility] Urine clarityOrdered By: HEA LTH ASSESSMENT on 04-21-2023 Clarity (U) Sl. Cloudy Clear [facility] Urine color determinationOrd ered By: HEALTH ASSESSMENT on 04-21-2023 Color (U) Yellow Yellow [facility] Urine glucose detectionOrder ed By: HEALTH ASSESSMENT on 04-21-2023 Glucose Ql (U) Normal mg/dl Normal [facility] Urine leukocyte esterase det ection by dipstickOrdered By: HEALTH ASSESSMENT on 04-21-2023 Leukocyte esterase Test strip Ql (U) Negative Negative [facility] Urine pHOrdered By: HEALTH A SSESSMENT on 04-21-2023 pH (U) 6.0 [pH] 5.0 - 8.0 [facility] Urine specific gravity measu rementOrdered By: HEALTH ASSESSMENT on 04-21-2023 Specific gravity (U) [Rel density] 1.015 1.002-1.030 [facility] Urobilinogen Auto test strip Ql (U)Ordered By: HEALTH ASSESSMENT on 04-21-2023 Urobilinogen Ql (U) Normal mg/dl Normal [facility] Basophil percentageOrdered B y: Stephanie Kramer on 01-11-2023 Bilirubin [Mass/Vol] 0.80 mg/dL 0.20-1.00 [facility] Comment on above: For patients on eltr ombopag therapy, use of Dimension [place] TBIL is not recommended. Chloride [Moles/Vol] 107 mmol/L 98-107 [facility] Cholesterol [Mass/Vol] 194 mg/dL <200 [facility] Comment on above: <200 mg/dL Desirable 200-240 mg/dL Borderline >240 mg/dL High Risk Glucose [Mass/Vol] 94 mg/dL 74-106 [facility] Potassium [Moles/Vol] 3.8 mmol/L 3.5-5.1 [facility] Protein [Mass/Vol] 7.6 g/dL 6.4-8.2 [facility] Sodium [Moles/Vol] 138 mmol/L 136-145 [facility] Triglyceride [Mass/Vol] 68 mg/dL <199 [facility] Comment on above: The drugs N-Acetylcy steine and Metamizole may falsely depress this assay.Serum Triglycerides Reference Interval Normal <150 mg/dL Borderline high 150 - 199 mg/dL High 200 - 499 mg/dL Very High > or = 500 mg/dL WBC (Bld) [#/Vol] 10.6 10*3/uL 4.4-11.0 [facility] Blood erythrocytes count (nu mber/volume)Ordered By: Stephanie Kramer on 01-11-2023 RBC (Bld) [#/Vol] 5.34 10*6/uL 4.2-5.4 [facility] Blood hemoglobin measurement (mass/volume)Ordered By: Stephanie Kramer on 01-11-2023 Hemoglobin (Bld) [Mass/Vol] 13.8 g/dL 12.0-15.0 [facility] Blood platelet mean volumeOr dered By: Stephanie Kraemr on 01-11-2023 Platelet mean volume (Bld) [Entitic vol] 9.3 fL 6.2-12.0 [facility] Determination of erythrocyte mean corpuscular volume (MCV)Ordered By: Stephanie Kramer on 01-11-2023 MCV (RBC) [Entitic vol] 84.1 fL 81-99 [facility] Hematocrit Auto (Bld) [Volum e fraction]Ordered By: Stephanie Kramer on 01-11-2023 Hematocrit (Bld) [Volume fraction] 44.9 % 37-47 [facility] Laboratory - Chemistry and C hemistry - challengeOrdered By: Stephanie Kramer on 01-11-2023 ALP [Catalytic activity/Vol] 54 U/L 45-117 [facility] ALT [Catalytic activity/Vol] 24 U/L 13-56 [facility] CO2 [Moles/Vol] 26.0 mmol/L 21.0-32.0 [facility] Free T4 [Mass/Vol] 1.07 ng/dL 0.76-1.46 [facility] Globulin (S) [Mass/Vol] 3.7 g/dL 2.2-4.2 [facility] Urea nitrogen/Creatinine [Mass ratio] 17.4 mg/mg 10-20 [facility] Laboratory - Hematology and Cell countsOrdered By: Stephanie Kramer on 01-11-2023 Erythrocyte distribution width (RBC) [Entitic vol] 42.9 fL 35.1-43.9 [facility] Erythrocyte distribution width (RBC) [Ratio] 14.0 % 11.6-14.6 [facility] MCH (RBC) [Entitic mass] 25.8 pg 27.0-32.0 [facility] MCHC Auto (RBC) [Mass/Vol]Or dered By: Stephanie Kramer on 01-11-2023 MCHC (RBC) [Mass/Vol] 30.7 g/dL 32-36 [facility] No Panel InformationOrdered By: Stephanie Kramer on 01-11-2023 Estimated GFR (MDRD) Amer 139 mL/min >60 [facility] Comment on above: GFR Calc Estimated GFR (MDRD) Non-Af Amer 115 mL/min >60 [facility] Comment on above: Non- GFR Calc Thyroid Stimulating Hormone (TSH) 0.58 uIU/mL 0.358-3.74 [facility] Platelets bldOrdered By: Patricia Kramer on 01-11-2023 Platelets (Bld) [#/Vol] 273 10*3/uL 150-450 [facility] Serum or plasma albumin nikole urement (mass/volume)Ordered By: Stephanie Kramer on 01-11-2023 Albumin [Mass/Vol] 3.9 g/dL 3.2-5.0 [facility] Serum or plasma albumin/glob ulin mass ratioOrdered By: Stephanie Kramer on 01-11-2023 Albumin/Globulin [Mass ratio] 1.1 {ratio} 0.9-2.4 [facility] Serum or plasma calcium nikole urement (mass/volume)Ordered By: Stephanie Kramer on 01-11-2023 Calcium [Mass/Vol] 9.2 mg/dL 8.5-10.1 [facility] Serum or plasma cholesterol in HDL measurement (mass/volume)Ordered By: Stephanie Kramer on 01-11-2023 Cholesterol in HDL [Mass/Vol] 61 mg/dL >40 [facility] Comment on above: The drugs N-Acetylcy steine and Metamizole may falsely depress this assay. Reference Range HDL <40 mg/dL Low HDL Cholesterol HDL >or= 60 mg/dL High HDL Cholesterol Serum or plasma cholesterol in VLDL measurement (mass/volume)Ordered By: Stephanie Kramer on 01-11-2023 Cholesterol in VLDL [Mass/Vol] 14 mg/dL 5-40 [facility] Serum or plasma creatinine m easurement (mass/volume)Ordered By: Stephanie Kramer on 01-11-2023 Creatinine [Mass/Vol] 0.63 mg/dL 0.55-1.02 [facility] Comment on above: The validity of the calculated GFR & GFRAA in patients over 70 years has not been determined. Clinical correlation is essential. Serum or plasma low density lipoprotein (LDL) cholesterol measurement (mass/volume)Ordered By: Stephanie Kramer on 01-11-2023 Cholesterol in LDL [Mass/Vol] 119 mg/dL 0-130 [facility] Serum or plasma urea nitroge n measurement (mass/volume)Ordered By: Stephanie Kramer on 01-11-2023 Urea nitrogen [Mass/Vol] 11 mg/dL 7-18 [facility] Thin prep Papanicolaou smear with manual screeningOrdered By: Stephanie Kramer on 01-11-2023 Thin prep Papanicolaou smear with manual screening 14 U/L 15-37 [facility] Thin prep Papanicolaou smear with manual screening 5 5-15 [facility] Absolute lymphocyte counton 08-29-2022 Lymphocytes Auto (Unsp spec) [#/Vol] 3.18 10*3/uL 0.83-4.51 [facility] Work Phone: Basophil percentageon 2021 Basophils/100 WBC (Bld) 0.5 % 0-1 [facility] Work Phone: Bilirubin [Mass/Vol] 0.20 mg/dL 0.20-1.00 [facility] Work Phone: Comment on above: For patients on eltr ombopag therapy, use of Dimension [place] TBIL is not recommended. Chloride [Moles/Vol] 108 mmol/L 98-107 [facility] Work Phone: Eosinophils/100 WBC (Bld) 1.9 % 0-5 [facility] Work Phone: Glucose [Mass/Vol] 103 mg/dL 74-106 [facility] Work Phone: Comment on above: Fasting Glucose resu lt from 100 to 125 mg/dL suggests IMPAIRED HOMEOSTASIS per A.D.A. criteria. Neutrophils (Bld) [#/Vol] 5.8 10*3/uL 2.0-7.7 [facility] Work Phone: Neutrophils/100 WBC (Bld) 57.8 % 47-70 [facility] Work Phone: Potassium [Moles/Vol] 3.4 mmol/L 3.5-5.1 [facility] Work Phone: Protein [Mass/Vol] 7.4 g/dL 6.4-8.2 [facility] Work Phone: Sodium [Moles/Vol] 141 mmol/L 136-145 [facility] Work Phone: WBC (Bld) [#/Vol] 10.0 10*3/uL 4.4-11.0 [facility] Work Phone: Blood erythrocytes count (nu mber/volume)on 08-29-2022 RBC (Bld) [#/Vol] 4.08 10*6/uL 4.2-5.4 [facility] Work Phone: Blood hemoglobin measurement (mass/volume)on 08-29-2022 Hemoglobin (Bld) [Mass/Vol] 10.9 g/dL 12.0-15.0 [facility] Work Phone: Blood lymphocytes/100 leukoc yteson 08-29-2022 Lymphocytes/100 WBC (Bld) 31.8 % 19-41 [facility] Work Phone: Blood monocytes/100 leukocyt eson 08-29-2022 Monocytes/100 WBC (Bld) 6.9 % 0-10 [facility] Work Phone: Blood platelet mean volumeon 08-29-2022 Platelet mean volume (Bld) [Entitic vol] 9.1 fL 6.2-12.0 [facility] Work Phone: [phone] Determination of erythrocyte mean corpuscular volume (MCV)on 08-29-2022 MCV (RBC) [Entitic vol] 82.8 fL 81-99 [facility] Work Phone: [phone] Hematocrit Auto (Bld) [Volum e fraction]on 08-29-2022 Hematocrit (Bld) [Volume fraction] 33.8 % 37-47 [facility] Work Phone: [phone] Laboratory - Chemistry and C hemistry - challengeon 08-29-2022 ALP [Catalytic activity/Vol] 72 U/L 45-117 [facility] Work Phone: [phone] ALT [Catalytic activity/Vol] 30 U/L 13-56 [facility] Work Phone: [phone] CO2 [Moles/Vol] 26.0 mmol/L 21.0-32.0 [facility] Work Phone: [phone] Globulin (S) [Mass/Vol] 4.4 g/dL 2.2-4.2 [facility] Work Phone: [phone] Urea nitrogen/Creatinine [Mass ratio] 12.3 mg/mg 10-20 [facility] Work Phone: [phone] Laboratory - Hematology and Cell countson 08-29-2022 Erythrocyte distribution width (RBC) [Entitic vol] 39.4 fL 35.1-43.9 [facility] Work Phone: [phone] Erythrocyte distribution width (RBC) [Ratio] 13.0 % 11.6-14.6 [facility] Work Phone: [phone] Immature granulocytes/100 WBC (Bld) 1.100 % 0.0-0.9 [facility] Work Phone: [phone] Comment on above: IG% - Immature Granu locytes (promyelocytes, myelocytes and metamyelocytes) > 1% indicates that a LEFT SHIFT is Present. MCH (RBC) [Entitic mass] 26.7 pg 27.0-32.0 [facility] Work Phone: Nucleated RBC/100 WBC (Bld) [Ratio] 0 % 0-5 [facility] Work Phone: [phone] MCHC Auto (RBC) [Mass/Vol]on 08-29-2022 MCHC (RBC) [Mass/Vol] 32.2 g/dL 32-36 [facility] Work Phone: No Panel Informationon 08-29 Estimated Creatinine Clearance Calc 78.73 ml/min [facility] Work Phone: [phone] Estimated GFR (MDRD) Amer 117 mL/min >60 [facility] Work Phone: [phone] Comment on above: GFR Calc Estimated GFR (MDRD) Non-Af Amer 97 mL/min >60 [facility] Work Phone: [phone] Comment on above: Non- GFR Calc Platelets bldon 08-29-2022 Platelets (Bld) [#/Vol] 493 10*3/uL 150-450 [facility] Work Phone: [phone] Serum or plasma albumin nikole urement (mass/volume)on 08-29-2022 Albumin [Mass/Vol] 3.0 g/dL 3.2-5.0 [facility] Work Phone: [phone] Serum or plasma albumin/glob ulin mass ratioon 08-29-2022 Albumin/Globulin [Mass ratio] 0.7 {ratio} 0.9-2.4 [facility] Work Phone: [phone] Serum or plasma calcium nikole urement (mass/volume)on 08-29-2022 Calcium [Mass/Vol] 8.9 mg/dL 8.5-10.1 [facility] Work Phone: [phone] Serum or plasma creatinine m easurement (mass/volume)on 08-29-2022 Creatinine [Mass/Vol] 0.73 mg/dL 0.55-1.02 [facility] Work Phone: [phone] Comment on above: The validity of the calculated GFR & GFRAA in patients over 70 years has not been determined. Clinical correlation is essential. Serum or plasma urea nitroge n measurement (mass/volume)on 08-29-2022 Urea nitrogen [Mass/Vol] 9 mg/dL 7-18 [facility] Work Phone: Thin prep Papanicolaou smear with manual screeningon 08-29-2022 Thin prep Papanicolaou smear with manual screening 11 U/L 15-37 [facility] Work Phone: [phone] Thin prep Papanicolaou smear with manual screening 7 5-15 [facility] Work Phone: Absolute lymphocyte counton 08-26-2022 Lymphocytes Auto (Unsp spec) [#/Vol] 1.76 10*3/uL 0.83-4.51 [facility] Work Phone: Basophil percentageon 2021 Basophils/100 WBC (Bld) 0.2 % 0-1 [facility] Work Phone: Bilirubin [Mass/Vol] 0.40 mg/dL 0.20-1.00 [facility] Work Phone: Comment on above: For patients on eltr ombopag therapy, use of Dimension [place] TBIL is not recommended. Chloride [Moles/Vol] 111 mmol/L 98-107 [facility] Work Phone: Eosinophils/100 WBC (Bld) 1.1 % 0-5 [facility] Work Phone: Glucose [Mass/Vol] 104 mg/dL 74-106 [facility] Work Phone: Comment on above: Fasting Glucose resu lt from 100 to 125 mg/dL suggests IMPAIRED HOMEOSTASIS per A.D.A. criteria. Neutrophils (Bld) [#/Vol] 9.6 10*3/uL 2.0-7.7 [facility] Work Phone: Neutrophils/100 WBC (Bld) 77.1 % 47-70 [facility] Work Phone: Potassium [Moles/Vol] 3.3 mmol/L 3.5-5.1 [facility] Work Phone: Protein [Mass/Vol] 5.8 g/dL 6.4-8.2 [facility] Work Phone: Sodium [Moles/Vol] 143 mmol/L 136-145 [facility] Work Phone: [phone] WBC (Bld) [#/Vol] 12.5 10*3/uL 4.4-11.0 [facility] Work Phone: Blood erythrocytes count (nu mber/volume)on 08-26-2022 RBC (Bld) [#/Vol] 3.47 10*6/uL 4.2-5.4 [facility] Work Phone: Blood hemoglobin measurement (mass/volume)on 08-26-2022 Hemoglobin (Bld) [Mass/Vol] 9.3 g/dL 12.0-15.0 [facility] Work Phone: Blood lymphocytes/100 leukoc yteson 08-26-2022 Lymphocytes/100 WBC (Bld) 14.1 % 19-41 [facility] Work Phone: Blood monocytes/100 leukocyt eson 08-26-2022 Monocytes/100 WBC (Bld) 7.1 % 0-10 [facility] Work Phone: Blood platelet mean volumeon 08-26-2022 Platelet mean volume (Bld) [Entitic vol] 9.5 fL 6.2-12.0 [facility] Work Phone: Determination of erythrocyte mean corpuscular volume (MCV)on 08-26-2022 MCV (RBC) [Entitic vol] 84.4 fL 81-99 [facility] Work Phone: Hematocrit Auto (Bld) [Volum e fraction]on 08-26-2022 Hematocrit (Bld) [Volume fraction] 29.3 % 37-47 [facility] Work Phone: Laboratory - Chemistry and C hemistry - challengeon 08-26-2022 ALP [Catalytic activity/Vol] 69 U/L 45-117 [facility] Work Phone: [phone] ALT [Catalytic activity/Vol] 24 U/L 13-56 [facility] Work Phone: [phone] CO2 [Moles/Vol] 26.0 mmol/L 21.0-32.0 [facility] Work Phone: [phone] Globulin (S) [Mass/Vol] 3.4 g/dL 2.2-4.2 [facility] Work Phone: [phone] Urea nitrogen/Creatinine [Mass ratio] 8.8 mg/mg 10-20 [facility] Work Phone: [phone] Laboratory - Hematology and Cell countson 08-26-2022 Erythrocyte distribution width (RBC) [Entitic vol] 40.0 fL 35.1-43.9 [facility] Work Phone: [phone] Erythrocyte distribution width (RBC) [Ratio] 13.0 % 11.6-14.6 [facility] Work Phone: [phone] Immature granulocytes/100 WBC (Bld) 0.400 % 0.0-0.9 [facility] Work Phone: [phone] Comment on above: IG% - Immature Granu locytes (promyelocytes, myelocytes and metamyelocytes) > 1% indicates that a LEFT SHIFT is Present. MCH (RBC) [Entitic mass] 26.8 pg 27.0-32.0 [facility] Work Phone: [phone] Nucleated RBC/100 WBC (Bld) [Ratio] 0 % 0-5 [facility] Work Phone: [phone] MCHC Auto (RBC) [Mass/Vol]on 08-26-2022 MCHC (RBC) [Mass/Vol] 31.7 g/dL 32-36 [facility] Work Phone: [phone] Panel Informationon 08-26 Estimated Creatinine Clearance Calc 102.63 ml/min [facility] Work Phone: [phone] Estimated GFR (MDRD) Amer 159 mL/min >60 [facility] Work Phone: [phone] Comment on above: GFR Calc Estimated GFR (MDRD) Non-Af Amer 131 mL/min >60 [facility] Work Phone: Comment on above: Non- GFR Calc Platelets bldon 08-26-2022 Platelets (Bld) [#/Vol] 297 10*3/uL 150-450 [facility] Work Phone: Serum or plasma albumin nikole urement (mass/volume)on 08-26-2022 Albumin [Mass/Vol] 2.4 g/dL 3.2-5.0 [facility] Work Phone: Serum or plasma albumin/glob ulin mass ratioon 08-26-2022 Albumin/Globulin [Mass ratio] 0.7 {ratio} 0.9-2.4 [facility] Work Phone: Serum or plasma calcium nikole urement (mass/volume)on 08-26-2022 Calcium [Mass/Vol] 8.4 mg/dL 8.5-10.1 [facility] Work Phone: Serum or plasma creatinine m easurement (mass/volume)on 08-26-2022 Creatinine [Mass/Vol] 0.56 mg/dL 0.55-1.02 [facility] Work Phone: Comment on above: The validity of the calculated GFR & GFRAA in patients over 70 years has not been determined. Clinical correlation is essential. Serum or plasma urea nitroge n measurement (mass/volume)on 08-26-2022 Urea nitrogen [Mass/Vol] 5 mg/dL 7-18 [facility] Work Phone: Thin prep Papanicolaou smear with manual screeningon 08-26-2022 Thin prep Papanicolaou smear with manual screening 15 U/L 15-37 [facility] Work Phone: [phone] Thin prep Papanicolaou smear with manual screening 6 5-15 [facility] Work Phone: Absolute lymphocyte counton 08-23-2022 Lymphocytes Auto (Unsp spec) [#/Vol] 1.66 10*3/uL 0.83-4.51 [facility] Work Phone: Lymphocytes Auto (Unsp spec) [#/Vol] 2.07 10*3/uL 0.83-4.51 [facility] Work Phone: Basophil percentageon 2021 Basophil percentage 0-5 SEEN /hpf 0-5 [facility] Work Phone: Basophils/100 WBC (Bld) 0.2 % 0-1 [facility] Work Phone: Chloride [Moles/Vol] 105 mmol/L 98-107 [facility] Work Phone: Eosinophils/100 WBC (Bld) 0.4 % 0-5 [facility] Work Phone: Glucose [Mass/Vol] 96 mg/dL 74-106 [facility] Work Phone: Neutrophils (Bld) [#/Vol] 18.0 10*3/uL 2.0-7.7 [facility] Work Phone: Neutrophils/100 WBC (Bld) 85.4 % 47-70 [facility] Work Phone: Potassium [Moles/Vol] 3.8 mmol/L 3.5-5.1 [facility] Work Phone: Sodium [Moles/Vol] 137 mmol/L 136-145 [facility] Work Phone: WBC (Bld) [#/Vol] 21.1 10*3/uL 4.4-11.0 [facility]: Basophils/100 WBC (Bld) 0.2 % 0-1 [facility] Work Phone: Eosinophils/100 WBC (Bld) 0.5 % 0-5 [facility] Work Phone: Neutrophils (Bld) [#/Vol] 17.0 10*3/uL 2.0-7.7 [facility] Work Phone: Neutrophils/100 WBC (Bld) 82.6 % 47-70 [facility] Work Phone: WBC (Bld) [#/Vol] 20.6 10*3/uL 4.4-11.0 [facility] Work Phone: Bilirubin Test strip Ql (U)o n 08-23-2022 Bilirubin Ql (U) Negative Negative [facility] Work Phone: Blood erythrocytes count (nu mber/volume)on 08-23-2022 RBC (Bld) [#/Vol] 4.58 10*6/uL 4.2-5.4 [facility] Work Phone: RBC (Bld) [#/Vol] 4.76 10*6/uL 4.2-5.4 [facility] Work Phone: Blood hemoglobin measurement (mass/volume)on 08-23-2022 Hemoglobin (Bld) [Mass/Vol] 12.4 g/dL 12.0-15.0 [facility] Work Phone: Hemoglobin (Bld) [Mass/Vol] 12.5 g/dL 12.0-15.0 [facility] Work Phone: Blood lymphocytes/100 leukoc yteson 08-23-2022 Lymphocytes/100 WBC (Bld) 7.9 % - [facility] Work Phone: Lymphocytes/100 WBC (Bld) 10.1 % [facility] Work Phone: Blood monocytes/100 leukocyt eson 08-23-2022 Monocytes/100 WBC (Bld) 5.7 % 0-10 [facility] Work Phone: Monocytes/100 WBC (Bld) 6.1 % 0-10 [facility] Work Phone: Blood platelet mean volumeon 08-23-2022 Platelet mean volume (Bld) [Entitic vol] 9.2 fL 6.2-12.0 [facility] Work Phone: Platelet mean volume (Bld) [Entitic vol] 9.2 fL 6.2-12.0 [facility] Work Phone: [phone] Determination of erythrocyte mean corpuscular volume (MCV)on 08-23-2022 MCV (RBC) [Entitic vol] 83.4 fL 81-99 [facility] Work Phone: [phone] MCV (RBC) [Entitic vol] 83.6 fL 81-99 [facility] Work Phone: [phone] Hematocrit Auto (Bld) [Volum e fraction]on 08-23-2022 Hematocrit (Bld) [Volume fraction] 38.2 % 37-47 [facility] Work Phone: [phone] Hematocrit (Bld) [Volume fraction] 39.8 % 37-47 [facility] Work Phone: [phone] Ketones Test strip Ql (U)on 08-23-2022 Ketones Ql (U) 5 mg/dl Negative [facility] Work Phone: [phone] Laboratory - Chemistry and C hemistry - challengeon 08-23-2022 CO2 [Moles/Vol] 26.0 mmol/L 21.0-32.0 [facility] Work Phone: [phone] Urea nitrogen/Creatinine [Mass ratio] 13.4 mg/mg 10-20 [facility] Work Phone: [phone] Laboratory - Hematology and Cell countson 08-23-2022 Erythrocyte distribution width (RBC) [Entitic vol] 39.3 fL 35.1-43.9 [facility] Work Phone: [phone] Erythrocyte distribution width (RBC) [Ratio] 12.9 % 11.6-14.6 [facility] Work Phone: [phone] Immature granulocytes/100 WBC (Bld) 0.400 % 0.0-0.9 [facility] Work Phone: [phone] Comment on above: IG% - Immature Granu locytes (promyelocytes, myelocytes and metamyelocytes) > 1% indicates that a LEFT SHIFT is Present. MCH (RBC) [Entitic mass] 27.1 pg 27.0-32.0 [facility] Work Phone: Nucleated RBC/100 WBC (Bld) [Ratio] 0 % 0-5 [facility] Work Phone: [phone] Erythrocyte distribution width (RBC) [Entitic vol] 39.7 fL 35.1-43.9 [facility] Work Phone: [phone] Erythrocyte distribution width (RBC) [Ratio] 12.9 % 11.6-14.6 [facility] Work Phone: [phone] Immature granulocytes/100 WBC (Bld) 0.500 % 0.0-0.9 [facility] Work Phone: [phone] Comment on above: IG% - Immature Granu locytes (promyelocytes, myelocytes and metamyelocytes) > 1% indicates that a LEFT SHIFT is Present. MCH (RBC) [Entitic mass] 26.3 pg 27.0-32.0 [facility] Work Phone: [phone] Nucleated RBC/100 WBC (Bld) [Ratio] 0 % 0-5 [facility] Work Phone: [phone] MCHC Auto (RBC) [Mass/Vol]on 08-23-2022 MCHC (RBC) [Mass/Vol] 32.5 g/dL 32-36 [facility] Work Phone: [phone] MCHC (RBC) [Mass/Vol] 31.4 g/dL 32-36 [facility] Work Phone: [phone] Mucus LM Ql (Urine sed)on Mucus Ql (Urine sed) 0 SEEN /hpf [facility] Work Phone: [phone] Nitrite Test strip Ql (U)on 08-23-2022 Nitrite Ql (U) Negative Negative [facility] Work Phone: [phone] Panel Informationon 08-23 Estimated Creatinine Clearance Calc 85.78 ml/min [facility] Work Phone: [phone] Estimated GFR (MDRD) Amer 129 mL/min >60 [facility] Work Phone: [phone] Comment on above: GFR Calc Estimated GFR (MDRD) Non-Af Amer 107 mL/min >60 [facility] Work Phone: Comment on above: Non- GFR Calc Platelets bldon 08-23-2022 Platelets (Bld) [#/Vol] 363 10*3/uL 150-450 [facility] Work Phone: Platelets (Bld) [#/Vol] 394 10*3/uL 150-450 [facility] Work Phone: Protein Test strip Ql (U)on 08-23-2022 Protein Ql (U) 30 mg/dl Negative [facility] Work Phone: Serum or plasma calcium nikole urement (mass/volume)on 08-23-2022 Calcium [Mass/Vol] 9.4 mg/dL 8.5-10.1 [facility] Work Phone: Serum or plasma creatinine m easurement (mass/volume)on 08-23-2022 Creatinine [Mass/Vol] 0.67 mg/dL 0.55-1.02 [facility] Work Phone: Comment on above: The validity of the calculated GFR & GFRAA in patients over 70 years has not been determined. Clinical correlation is essential. Serum or plasma urea nitroge n measurement (mass/volume)on 08-23-2022 Urea nitrogen [Mass/Vol] 9 mg/dL 7-18 [facility] Work Phone: Squamous epithelial cells de tection in urine sediment by light microscopyon 08-23-2022 Epithelial cells.squamous LM Ql (Urine sed) 0-5 SEEN /hpf 5-10 [facility] Work Phone: Thin prep Papanicolaou smear with manual screeningon 08-23-2022 Thin prep Papanicolaou smear with manual screening 6 5-15 [facility] Work Phone: Urine blood detectionon 08-05 RBC Ql (U) 50 /ul Negative [facility] Work Phone: RBC Ql (U) 0-5 SEEN /hpf 0-5 [facility] Work Phone: Urine clarityon 08-23-2022 Clarity (U) Clear Clear [facility] Work Phone: Urine color determinationon 08-23-2022 Color (U) Yellow Yellow [facility] Work Phone: Urine glucose detectionon Glucose Ql (U) Normal mg/dl Normal [facility] Work Phone: Urine leukocyte esterase det ection by dipstickon 08-23-2022 Leukocyte esterase Test strip Ql (U) 25 /ul Negative [facility] Work Phone: Urine pHon 08-23-2022 pH (U) 6.5 [pH] 5.0 - 8.0 [facility] Work Phone: Urine sediment bacteria coun t by microscopy (number/high power field)on 08-23-2022 Bacteria LM.HPF (Urine sed) [#/Area] 1 /[HPF] None Seen [facility] Work Phone: Urine specific gravity measu rementon 08-23-2022 Specific gravity (U) [Rel density] 1.005 1.002-1.030 [facility] Work Phone: Urobilinogen Auto test strip Ql (U)on 08-23-2022 Urobilinogen Ql (U) Normal mg/dl Normal [facility] Work Phone: Absolute lymphocyte counton 08-13-2022 Lymphocytes Auto (Unsp spec) [#/Vol] 1.17 10*3/uL 0.83-4.51 [facility] Work Phone: Basophil percentageon 2021 Basophils/100 WBC (Bld) 0.1 % 0-1 [facility] Work Phone: Bilirubin [Mass/Vol] 1.30 mg/dL 0.20-1.00 [facility] Work Phone: Comment on above: For patients on eltr ombopag therapy, use of Dimension [place] TBIL is not recommended. Chloride [Moles/Vol] 108 mmol/L 98-107 [facility] Work Phone: Eosinophils/100 WBC (Bld) 0.5 % 0-5 [facility] Work Phone: Glucose [Mass/Vol] 106 mg/dL 74-106 [facility] Work Phone: Comment on above: Fasting Glucose resu lt from 100 to 125 mg/dL suggests IMPAIRED HOMEOSTASIS per A.D.A. criteria. Neutrophils (Bld) [#/Vol] 9.0 10*3/uL 2.0-7.7 [facility] Work Phone: Neutrophils/100 WBC (Bld) 81.3 % 47-70 [facility] Work Phone: Potassium [Moles/Vol] 3.5 mmol/L 3.5-5.1 [facility] Work Phone: Protein [Mass/Vol] 6.3 g/dL 6.4-8.2 [facility] Work Phone: Sodium [Moles/Vol] 140 mmol/L 136-145 [facility] Work Phone: WBC (Bld) [#/Vol] 11.1 10*3/uL 4.4-11.0 [facility] Work Phone: Blood erythrocytes count (nu mber/volume)on 08-13-2022 RBC (Bld) [#/Vol] 4.27 10*6/uL 4.2-5.4 [facility] Work Phone: Blood hemoglobin measurement (mass/volume)on 08-13-2022 Hemoglobin (Bld) [Mass/Vol] 11.1 g/dL 12.0-15.0 [facility] Work Phone: Blood lymphocytes/100 leukoc yteson 08-13-2022 Lymphocytes/100 WBC (Bld) 10.6 % 19-41 [facility] Work Phone: Blood monocytes/100 leukocyt eson 08-13-2022 Monocytes/100 WBC (Bld) 7.0 % 0-10 [facility] Work Phone: Blood platelet mean volumeon 08-13-2022 Platelet mean volume (Bld) [Entitic vol] 9.7 fL 6.2-12.0 [facility] Work Phone: [phone] Determination of erythrocyte mean corpuscular volume (MCV)on 08-13-2022 MCV (RBC) [Entitic vol] 84.3 fL 81-99 [facility] Work Phone: [phone] Hematocrit Auto (Bld) [Volum e fraction]on 08-13-2022 Hematocrit (Bld) [Volume fraction] 36.0 % 37-47 [facility] Work Phone: [phone] Laboratory - Chemistry and C hemistry - challengeon 08-13-2022 ALP [Catalytic activity/Vol] 51 U/L 45-117 [facility] Work Phone: [phone] ALT [Catalytic activity/Vol] 29 U/L 13-56 [facility] Work Phone: [phone] CO2 [Moles/Vol] 28.0 mmol/L 21.0-32.0 [facility] Work Phone: [phone] Globulin (S) [Mass/Vol] 3.4 g/dL 2.2-4.2 [facility] Work Phone: [phone] Lipase [Catalytic activity/Vol] 52 U/L 73-393 [facility] Work Phone: [phone] Urea nitrogen/Creatinine [Mass ratio] 10.4 mg/mg 10-20 [facility] Work Phone: [phone] Laboratory - Hematology and Cell countson 08-13-2022 Erythrocyte distribution width (RBC) [Entitic vol] 40.9 fL 35.1-43.9 [facility] Work Phone: [phone] Erythrocyte distribution width (RBC) [Ratio] 13.2 % 11.6-14.6 [facility] Work Phone: [phone] Immature granulocytes/100 WBC (Bld) 0.500 % 0.0-0.9 [facility] Work Phone: [phone] Comment on above: IG% - Immature Granu locytes (promyelocytes, myelocytes and metamyelocytes) > 1% indicates that a LEFT SHIFT is Present. MCH (RBC) [Entitic mass] 26.0 pg 27.0-32.0 [facility] Work Phone: [phone] Nucleated RBC/100 WBC (Bld) [Ratio] 0 % 0-5 [facility] Work Phone: [phone] MCHC Auto (RBC) [Mass/Vol]on 08-13-2022 MCHC (RBC) [Mass/Vol] 30.8 g/dL 32-36 [facility] Work Phone: [phone] Panel Informationon 08-13 Estimated Creatinine Clearance Calc 99.10 ml/min [facility] Work Phone: [phone] Estimated GFR (MDRD) Amer 155 mL/min >60 [facility] Work Phone: [phone] Comment on above: GFR Calc Estimated GFR (MDRD) Non-Af Amer 128 mL/min >60 [facility] Work Phone: [phone] Comment on above: Non- GFR Calc Platelets bldon 08-13-2022 Platelets (Bld) [#/Vol] 228 10*3/uL 150-450 [facility] Work Phone: [phone] Serum or plasma albumin nikole urement (mass/volume)on 08-13-2022 Albumin [Mass/Vol] 2.9 g/dL 3.2-5.0 [facility] Work Phone: [phone] Serum or plasma albumin/glob ulin mass ratioon 08-13-2022 Albumin/Globulin [Mass ratio] 0.9 {ratio} 0.9-2.4 [facility] Work Phone: [phone] Serum or plasma calcium nikole urement (mass/volume)on 08-13-2022 Calcium [Mass/Vol] 8.6 mg/dL 8.5-10.1 [facility] Work Phone: [phone] Serum or plasma creatinine m easurement (mass/volume)on 08-13-2022 Creatinine [Mass/Vol] 0.58 mg/dL 0.55-1.02 [facility] Work Phone: Comment on above: The validity of the calculated GFR & GFRAA in patients over 70 years has not been determined. Clinical correlation is essential. Serum or plasma urea nitroge n measurement (mass/volume)on 08-13-2022 Urea nitrogen [Mass/Vol] 6 mg/dL 7-18 [facility] Work Phone: Thin prep Papanicolaou smear with manual screeningon 08-13-2022 Thin prep Papanicolaou smear with manual screening 14 U/L 15-37 [facility] Work Phone: [phone] Thin prep Papanicolaou smear with manual screening 4 5-15 [facility] Work Phone: Absolute lymphocyte counton 08-12-2022 Lymphocytes Auto (Unsp spec) [#/Vol] 1.33 10*3/uL 0.83-4.51 [facility] Work Phone: Basophil percentageon 2021 Basophils/100 WBC (Bld) 0.1 % 0-1 [facility] Work Phone: Bilirubin [Mass/Vol] 0.80 mg/dL 0.20-1.00 [facility] Work Phone: [phone] Comment on above: For patients on eltr ombopag therapy, use of Dimension [place] TBIL is not recommended. Chloride [Moles/Vol] 110 mmol/L 98-107 [facility] Work Phone: Eosinophils/100 WBC (Bld) 0.4 % 0-5 [facility] Work Phone: Glucose [Mass/Vol] 105 mg/dL 74-106 [facility] Work Phone: Comment on above: Fasting Glucose resu lt from 100 to 125 mg/dL suggests IMPAIRED HOMEOSTASIS per A.D.A. criteria. Neutrophils (Bld) [#/Vol] 6.4 10*3/uL 2.0-7.7 [facility] Work Phone: Neutrophils/100 WBC (Bld) 76.5 % 47-70 [facility] Work Phone: Potassium [Moles/Vol] 3.7 mmol/L 3.5-5.1 [facility] Work Phone: Protein [Mass/Vol] 5.5 g/dL 6.4-8.2 [facility] Work Phone: [phone] Sodium [Moles/Vol] 140 mmol/L 136-145 [facility] Work Phone: [phone] WBC (Bld) [#/Vol] 8.4 10*3/uL 4.4-11.0 [facility] Work Phone: [phone] Blood erythrocytes count (nu mber/volume)on 08-12-2022 RBC (Bld) [#/Vol] 4.04 10*6/uL 4.2-5.4 [facility]: Blood hemoglobin measurement (mass/volume)on 08-12-2022 Hemoglobin (Bld) [Mass/Vol] 11.1 g/dL 12.0-15.0 [facility] Work Phone: [phone] Blood lymphocytes/100 leukoc yteson 08-12-2022 Lymphocytes/100 WBC (Bld) 15.8 % 19-41 [facility] Work Phone: [phone] Blood monocytes/100 leukocyt eson 08-12-2022 Monocytes/100 WBC (Bld) 7.0 % 0-10 [facility] Work Phone: [phone] Blood platelet mean volumeon 08-12-2022 Platelet mean volume (Bld) [Entitic vol] 9.3 fL 6.2-12.0 [facility] Work Phone: Determination of erythrocyte mean corpuscular volume (MCV)on 08-12-2022 MCV (RBC) [Entitic vol] 86.1 fL 81-99 [facility] Work Phone: Hematocrit Auto (Bld) [Volum e fraction]on 08-12-2022 Hematocrit (Bld) [Volume fraction] 34.8 % 37-47 [facility] Work Phone: Laboratory - Chemistry and C hemistry - challengeon 08-12-2022 ALP [Catalytic activity/Vol] 39 U/L 45-117 [facility] Work Phone: [phone] ALT [Catalytic activity/Vol] 35 U/L 13-56 [facility] Work Phone: [phone] CO2 [Moles/Vol] 26.0 mmol/L 21.0-32.0 [facility] Work Phone: [phone] Globulin (S) [Mass/Vol] 2.8 g/dL 2.2-4.2 [facility] Work Phone: [phone] Urea nitrogen/Creatinine [Mass ratio] 23.3 mg/mg 10-20 [facility] Work Phone: [phone] Laboratory - Hematology and Cell countson 08-12-2022 Erythrocyte distribution width (RBC) [Entitic vol] 41.9 fL 35.1-43.9 [facility] Work Phone: [phone] Erythrocyte distribution width (RBC) [Ratio] 13.3 % 11.6-14.6 [facility] Work Phone: [phone] Immature granulocytes/100 WBC (Bld) 0.200 % 0.0-0.9 [facility] Work Phone: [phone] Comment on above: IG% - Immature Granu locytes (promyelocytes, myelocytes and metamyelocytes) > 1% indicates that a LEFT SHIFT is Present. MCH (RBC) [Entitic mass] 27.5 pg 27.0-32.0 [facility] Work Phone: [phone] Nucleated RBC/100 WBC (Bld) [Ratio] 0 % 0-5 [facility] Work Phone: [phone] MCHC Auto (RBC) [Mass/Vol]on 08-12-2022 MCHC (RBC) [Mass/Vol] 31.9 g/dL 32-36 [facility] Work Phone: [phone] Panel Informationon 08-12 Estimated Creatinine Clearance Calc 128.42 ml/min [facility] Work Phone: [phone] Estimated GFR (MDRD) Amer 148 mL/min >60 [facility] Work Phone: Comment on above: GFR Calc Estimated GFR (MDRD) Non-Af Amer 122 mL/min >60 [facility] Work Phone: Comment on above: Non- GFR Calc Platelets bldon 08-12-2022 Platelets (Bld) [#/Vol] 194 10*3/uL 150-450 [facility] Work Phone: Serum or plasma albumin nikole urement (mass/volume)on 08-12-2022 Albumin [Mass/Vol] 2.7 g/dL 3.2-5.0 [facility] Work Phone: Serum or plasma albumin/glob ulin mass ratioon 08-12-2022 Albumin/Globulin [Mass ratio] 1.0 {ratio} 0.9-2.4 [facility] Work Phone: Serum or plasma calcium nikole urement (mass/volume)on 08-12-2022 Calcium [Mass/Vol] 8.0 mg/dL 8.5-10.1 [facility] Work Phone: Serum or plasma creatinine m easurement (mass/volume)on 08-12-2022 Creatinine [Mass/Vol] 0.60 mg/dL 0.55-1.02 [facility] Work Phone: Comment on above: The validity of the calculated GFR & GFRAA in patients over 70 years has not been determined. Clinical correlation is essential. Serum or plasma urea nitroge n measurement (mass/volume)on 08-12-2022 Urea nitrogen [Mass/Vol] 14 mg/dL 7-18 [facility] Work Phone: Thin prep Papanicolaou smear with manual screeningon 08-12-2022 Thin prep Papanicolaou smear with manual screening 25 U/L 15-37 [facility] Work Phone: Thin prep Papanicolaou smear with manual screening 4 5-15 [facility] Work Phone: Basophil percentageon 2021 Bilirubin [Mass/Vol] 1.10 mg/dL 0.20-1.00 [facility] Work Phone: [phone] Comment on above: For patients on eltr ombopag therapy, use of Dimension [place] TBIL is not recommended. Chloride [Moles/Vol] 111 mmol/L 98-107 [facility] Work Phone: [phone] Glucose [Mass/Vol] 130 mg/dL 74-106 [facility] Work Phone: [phone] Comment on above: Fasting Glucose resu lt greater than or equal to 126 mg/dL suggests DIABETES MELLITUS per A.D.A. criteria. Potassium [Moles/Vol] 3.9 mmol/L 3.5-5.1 [facility] Work Phone: [phone] Protein [Mass/Vol] 6.1 g/dL 6.4-8.2 [facility] Work Phone: [phone] Sodium [Moles/Vol] 140 mmol/L 136-145 [facility] Work Phone: [phone] WBC (Bld) [#/Vol] 17.7 10*3/uL 4.4-11.0 [facility] Work Phone: [phone] Blood erythrocytes count (nu mber/volume)on 08-11-2022 RBC (Bld) [#/Vol] 4.45 10*6/uL 4.2-5.4 [facility] Work Phone: [phone] Blood hemoglobin measurement (mass/volume)on 08-11-2022 Hemoglobin (Bld) [Mass/Vol] 11.5 g/dL 12.0-15.0 [facility] Work Phone: [phone] Blood platelet mean volumeon 08-11-2022 Platelet mean volume (Bld) [Entitic vol] 9.5 fL 6.2-12.0 [facility] Work Phone: [phone] Determination of erythrocyte mean corpuscular volume (MCV)on 08-11-2022 MCV (RBC) [Entitic vol] 84.9 fL 81-99 [facility] Work Phone: [phone] Hematocrit Auto (Bld) [Volum e fraction]on 08-11-2022 Hematocrit (Bld) [Volume fraction] 36.6 % 37-47 [facility] Work Phone: Laboratory - Chemistry and C hemistry - challengeon 08-11-2022 ALP [Catalytic activity/Vol] 46 U/L 45-117 [facility] Work Phone: ALT [Catalytic activity/Vol] 17 U/L 13-56 [facility] Work Phone: [phone] CO2 [Moles/Vol] 26.0 mmol/L 21.0-32.0 [facility] Work Phone: [phone] Globulin (S) [Mass/Vol] 3.0 g/dL 2.2-4.2 [facility] Work Phone: [phone] Urea nitrogen/Creatinine [Mass ratio] 13.1 mg/mg 10-20 [facility] Work Phone: [phone] Laboratory - Hematology and Cell countson 08-11-2022 Erythrocyte distribution width (RBC) [Entitic vol] 40.3 fL 35.1-43.9 [facility] Work Phone: [phone] Erythrocyte distribution width (RBC) [Ratio] 13.0 % 11.6-14.6 [facility] Work Phone: MCH (RBC) [Entitic mass] 26.3 pg 27.0-32.0 [facility] Work Phone: MCHC Auto (RBC) [Mass/Vol]on 08-11-2022 MCHC (RBC) [Mass/Vol] 31.0 g/dL 32-36 [facility] Work Phone: No Panel Informationon 08-11 Estimated Creatinine Clearance Calc 101.39 ml/min [facility] Work Phone: Estimated GFR (MDRD) Amer 112 mL/min >60 [facility] Work Phone: [phone] Comment on above: GFR Calc Estimated GFR (MDRD) Non-Af Amer 92 mL/min >60 [facility] Work Phone: [phone] Comment on above: Non- GFR Calc Platelets bldon 12-07-2022 Platelets (Bld) [#/Vol] 282 10*3/uL 150-450 [facility] Work Phone: Serum or plasma albumin nikole urement (mass/volume)on 08-11-2022 Albumin [Mass/Vol] 3.1 g/dL 3.2-5.0 [facility] Work Phone: Serum or plasma albumin/glob ulin mass ratioon 08-11-2022 Albumin/Globulin [Mass ratio] 1.0 {ratio} 0.9-2.4 [facility] Work Phone: Serum or plasma calcium nikole urement (mass/volume)on 08-11-2022 Calcium [Mass/Vol] 7.8 mg/dL 8.5-10.1 [facility] Work Phone: Serum or plasma creatinine m easurement (mass/volume)on 08-11-2022 Creatinine [Mass/Vol] 0.76 mg/dL 0.55-1.02 [facility] Work Phone: Comment on above: The validity of the calculated GFR & GFRAA in patients over 70 years has not been determined. Clinical correlation is essential. Serum or plasma urea nitroge n measurement (mass/volume)on 08-11-2022 Urea nitrogen [Mass/Vol] 10 mg/dL 7-18 [facility] Work Phone: Thin prep Papanicolaou smear with manual screeningon 08-11-2022 Thin prep Papanicolaou smear with manual screening 11 U/L 15-37 [facility] Work Phone: Thin prep Papanicolaou smear with manual screening 3 5-15 [facility] Work Phone: Glucose Glucometer (BldC) [M ass/Vol]on 08-10-2022 Glucose [Mass/Vol] 82 mg/dL 74-106 [facility] Work Phone: Comment on above: MANAGEMENT OF PATIEN T CARE PER NURSING PROTOCOL Laboratory - Chemistry and C hemistry - challengeon 08-10-2022 HCG ( test) Ql (U) Negative [facility] Work Phone: Comment on above: Very dilute urine sp ecimens, as indicated by a low specificgravity, may not contain personal financial representative levels of hCG. If is still suspected, a first morning urinespecimen should be collected 48 hours later and tested. Laboratory - Chemistry and C hemistry - challengeon 08-03-2022 Magnesium [Mass/Vol] 2.2 mg/dL 1.6-2.6 [facility] Work Phone: Laboratory - Microbiology an d Antimicrobial susceptibilityon 06-01-2022 SARS-CoV-2 (COVID-19) RNA VON+probe Ql (Unsp spec) Not detected [facility] Work Phone: Laboratory - Microbiology an d Antimicrobial susceptibilityon 05-31-2022 SARS-CoV-2 (COVID-19) RNA VON+probe Ql (Unsp spec) Not detected [facility] Work Phone: No Panel Informationon 05-31 POC Nasal Swab Influenza A,B Not detected [facility] Work Phone: POC Nasal Swab RSV Not detected [facility] Work Phone: Absolute lymphocyte counton 05-14-2022 Lymphocytes Auto (Unsp spec) [#/Vol] 2.42 10*3/uL 0.83-4.51 [facility] Work Phone: Absolute reticulocyte counto n 05-14-2022 Reticulocytes (Bld) [#/Vol] 0.00 10*3/uL 0-5 [facility] Work Phone: Basophil percentageon 2021 Basophil percentage 2.7 mg/dL 2.5-4.9 [facility] Work Phone: [phone] Bilirubin [Mass/Vol] 1.00 mg/dL 0.20-1.00 [facility] Work Phone: [phone] Comment on above: For patients on eltr ombopag therapy, use of Dimension [place] TBIL is not recommended. Chloride [Moles/Vol] 106 mmol/L 98-107 [facility] Work Phone: Cholesterol [Mass/Vol] 189 mg/dL <200 [facility] Work Phone: Comment on above: <200 mg/dL Desirable 200-240 mg/dL Borderline >240 mg/dL High Risk Glucose [Mass/Vol] 93 mg/dL 74-106 [facility] Work Phone: Neutrophils (Bld) [#/Vol] 6.5 10*3/uL 2.0-7.7 [facility] Work Phone: [phone] Potassium [Moles/Vol] 4.0 mmol/L 3.5-5.1 [facility] Work Phone: Protein [Mass/Vol] 7.4 g/dL 6.4-8.2 [facility] Work Phone: Sodium [Moles/Vol] 141 mmol/L 136-145 [facility] Work Phone: [phone] Triglyceride [Mass/Vol] 70 mg/dL <199 [facility] Work Phone: Comment on above: The drugs N-Acetylcy steine and Metamizole may falsely depress this assay.Serum Triglycerides Reference Interval Normal <150 mg/dL Borderline high 150 - 199 mg/dL High 200 - 499 mg/dL Very High > or = 500 mg/dL WBC (Bld) [#/Vol] 9.6 10*3/uL 4.4-11.0 [facility] Work Phone: Blood erythrocytes count (nu mber/volume)on 05-14-2022 RBC (Bld) [#/Vol] 5.23 10*6/uL 4.2-5.4 [facility] Work Phone: [phone] Blood hemoglobin measurement (mass/volume)on 05-14-2022 Hemoglobin (Bld) [Mass/Vol] 14.0 g/dL 12.0-15.0 [facility] Work Phone: [phone] Blood platelet mean volumeon 05-14-2022 Platelet mean volume (Bld) [Entitic vol] 10.0 fL 6.2-12.0 [facility] Work Phone: Determination of erythrocyte mean corpuscular volume (MCV)on 05-14-2022 MCV (RBC) [Entitic vol] 85.5 fL 81-99 [facility] Work Phone: Direct bilirubinon Bilirubin.direct [Mass/Vol] 0.19 mg/dL 0.00-0.30 [facility] Work Phone: Hematocrit Auto (Bld) [Volum e fraction]on 05-14-2022 Hematocrit (Bld) [Volume fraction] 44.7 % 37-47 [facility] Work Phone: Laboratory - Chemistry and C hemistry - challengeon 05-14-2022 ALP [Catalytic activity/Vol] 52 U/L 45-117 [facility] Work Phone: ALT [Catalytic activity/Vol] 22 U/L 13-56 [facility] Work Phone: Cholesterol.total/Haley sterol in HDL [Mass ratio] 3.20 {ratio} [facility] Work Phone: CO2 [Moles/Vol] 30.0 mmol/L 21.0-32.0 [facility] Work Phone: Globulin (S) [Mass/Vol] 3.6 g/dL 2.2-4.2 [facility] Work Phone: Urea nitrogen/Creatinine [Mass ratio] 13.9 mg/mg 10-20 [facility] Work Phone: Laboratory - Hematology and Cell countson 05-14-2022 Erythrocyte distribution width (RBC) [Entitic vol] 39.9 fL 35.1-43.9 [facility] Work Phone: Erythrocyte distribution width (RBC) [Ratio] 12.8 % 11.6-14.6 [facility] Work Phone: MCH (RBC) [Entitic mass] 26.8 pg 27.0-32.0 [facility] Work Phone: Nucleated RBC/100 WBC (Bld) [Ratio] 0 % 0-5 [facility] Work Phone: MCHC Auto (RBC) [Mass/Vol]on 05-14-2022 MCHC (RBC) [Mass/Vol] 31.3 g/dL 32-36 [facility] Work Phone: No Panel Informationon 05-14 Estimated GFR (MDRD) Amer 121 mL/min >60 [facility] Work Phone: Comment on above: GFR Calc Estimated GFR (MDRD) Non-Af Amer 100 mL/min >60 [facility] Work Phone: Comment on above: Non- GFR Calc Platelets bldon 05-14-2022 Platelets (Bld) [#/Vol] 293 10*3/uL 150-450 [facility] Work Phone: Segmented neutrophils/100 WB C Auto (Bld)on 05-14-2022 Segmented neutrophils/100 WBC (Bld) 67.5 % 47-70 [facility] Work Phone: Serum or plasma albumin nikole urement (mass/volume)on 05-14-2022 Albumin [Mass/Vol] 3.8 g/dL 3.2-5.0 [facility] Work Phone: Serum or plasma albumin/glob ulin mass ratioon 05-14-2022 Albumin/Globulin [Mass ratio] 1.1 {ratio} 0.9-2.4 [facility] Work Phone: [phone] Serum or plasma calcium nikole urement (mass/volume)on 05-14-2022 Calcium [Mass/Vol] 8.9 mg/dL 8.5-10.1 [facility] Work Phone: [phone] Serum or plasma cholesterol in HDL measurement (mass/volume)on 05-14-2022 Cholesterol in HDL [Mass/Vol] 59 mg/dL >40 [facility] Work Phone: Comment on above: The drugs N-Acetylcy steine and Metamizole may falsely depress this assay. Reference Range HDL <40 mg/dL Low HDL Cholesterol HDL >or= 60 mg/dL High HDL Cholesterol Serum or plasma cholesterol in VLDL measurement (mass/volume)on 05-14-2022 Cholesterol in VLDL [Mass/Vol] 14 mg/dL 5-40 [facility] Work Phone: Serum or plasma creatinine m easurement (mass/volume)on 05-14-2022 Creatinine [Mass/Vol] 0.72 mg/dL 0.55-1.02 [facility] Work Phone: Comment on above: The validity of the calculated GFR & GFRAA in patients over 70 years has not been determined. Clinical correlation is essential. Serum or plasma low density lipoprotein (LDL) cholesterol measurement (mass/volume)on 05-14-2022 Cholesterol in LDL [Mass/Vol] 116 mg/dL 0-130 [facility] Work Phone: Serum or plasma urea nitroge n measurement (mass/volume)on 05-14-2022 Urea nitrogen [Mass/Vol] 10 mg/dL 7-18 [facility] Work Phone: Serum or plasma uric acid me asurement (mass/volume)on 05-14-2022 Urate [Mass/Vol] 4.3 mg/dL 2.6-6.0 [facility] Work Phone: Comment on above: The drugs N-Acetylcy steine and Metamizole may falsely depress this assay. Thin prep Papanicolaou smear with manual screeningon 05-14-2022 Thin prep Papanicolaou smear with manual screening 14 U/L 15-37 [facility] Work Phone: [phone] Thin prep Papanicolaou smear with manual screening 5 5-15 [facility] Work Phone: [phone] Thin prep Papanicolaou smear with manual screening 149 U/L 84-246 [facility] Work Phone: [phone] Absolute lymphocyte counton 01-29-2022 Lymphocytes Auto (Unsp spec) [#/Vol] 2.51 10*3/uL 0.83-4.51 [facility] Work Phone: [phone] Basophil percentageon 2021 Basophils/100 WBC (Bld) 0.2 % 0-1 [facility] Work Phone: Eosinophils/100 WBC (Bld) 0.5 % 0-5 [facility] Work Phone: Neutrophils (Bld) [#/Vol] 8.9 10*3/uL 2.0-7.7 [facility] Work Phone: Neutrophils/100 WBC (Bld) 73.1 % 47-70 [facility] Work Phone: WBC (Bld) [#/Vol] 12.1 10*3/uL 4.4-11.0 [facility] Work Phone: Blood erythrocytes count (nu mber/volume)on 01-29-2022 RBC (Bld) [#/Vol] 5.04 10*6/uL 4.2-5.4 [facility] Work Phone: Blood hemoglobin measurement (mass/volume)on 01-29-2022 Hemoglobin (Bld) [Mass/Vol] 13.4 g/dL 12.0-15.0 [facility] Work Phone: Blood lymphocytes/100 leukoc yteson 01-29-2022 Lymphocytes/100 WBC (Bld) 20.7 % 19-41 [facility] Work Phone: Blood monocytes/100 leukocyt eson 01-29-2022 Monocytes/100 WBC (Bld) 5.2 % 0-10 [facility] Work Phone: Blood platelet mean volumeon 01-29-2022 Platelet mean volume (Bld) [Entitic vol] 9.7 fL 6.2-12.0 [facility] Work Phone: Determination of erythrocyte mean corpuscular volume (MCV)on 01-29-2022 MCV (RBC) [Entitic vol] 83.7 fL 81-99 [facility] Work Phone: Hematocrit Auto (Bld) [Volum e fraction]on 01-29-2022 Hematocrit (Bld) [Volume fraction] 42.2 % 37-47 [facility] Work Phone: Laboratory - Hematology and Cell countson 01-29-2022 Erythrocyte distribution width (RBC) [Entitic vol] 39.6 fL 35.1-43.9 [facility] Work Phone: Erythrocyte distribution width (RBC) [Ratio] 13.0 % 11.6-14.6 [facility] Work Phone: Immature granulocytes/100 WBC (Bld) 0.300 % 0.0-0.9 [facility] Work Phone: Comment on above: IG% - Immature Granu locytes (promyelocytes, myelocytes and metamyelocytes) > 1% indicates that a LEFT SHIFT is Present. MCH (RBC) [Entitic mass] 26.6 pg 27.0-32.0 [facility] Work Phone: Nucleated RBC/100 WBC (Bld) [Ratio] 0 % 0-5 [facility] Work Phone: MCHC Auto (RBC) [Mass/Vol]on 01-29-2022 MCHC (RBC) [Mass/Vol] 31.8 g/dL 32-36 [facility] Work Phone: Platelets bldon 01-29-2022 Platelets (Bld) [#/Vol] 303 10*3/uL 150-450 [facility] Work Phone: Lab Report: HSV 1 AND 2 IgGo n 07-02-2017 HSV 2 IgG 2.21 index High 0.00-0.90 [facility] Office Visit: new annualon 1 Documentation of current medications (procedure) Done Invalid Interpretation Code [facility] Fall risk assessment No Invalid Interpretation Code [facility] Tobacco smoking status NHIS Never Invalid Interpretation Code [facility] Tobacco use CPHS Never smoker Invalid Interpretation Code [facility] Lab Report: (P) Urinalysis, Completeon 05-06-2017 Bilirubin Ql (U) 1 High Negative [place] [facility] NITRITE UR Negative Invalid Interpretation Code Negative [facility] OCCULT BLOOD-UR 25 High Negative [facility] specific gravity, urine 1.010 Invalid Interpretation Code 1.002-1.030 [facility] Urine, clarity Clear Invalid Interpretation Code Clear [facility] Urine, color Yellow Invalid Interpretation Code Yellow [facility] Urine, glucose presence Normal mg/dl Invalid Interpretation Code Normal [facility] Urine, ketones presence Negative Invalid Interpretation Code Negative [facility] Urine, leukocyte esterase presence 25 High Negative [facility] Urine, pH 6.5 [pH] Invalid Interpretation Code 5.0 - 8.0 [facility] Urine, protein 30 mg/dL High Negative [facility] UROBILI 4 mg/dL High Normal [facility] Lab Report: Urinalysis, Comp leteon 05-06-2017 Urine, bacteria in sediment 1 /[HPF] Invalid Interpretation Code None Seen [facility] Urine, epithelial cells in sediment 0-5 SEEN Invalid Interpretation Code 5-10 [facility] Urine, erythrocytes in sediment by volume 0-5 SEEN Invalid Interpretation Code 0-5 [facility] Urine, mucus presence in sediment 1+ Invalid Interpretation Code [facility] WBC (Leukocytes) 0-5 SEEN Invalid Interpretation Code 0-5 [facility] Office Visit: UC: migraine/f everon 05-06-2017 blood in urine (hemoglobin) by dipstick non-hemolyzed moderate Invalid Interpretation Code [facility] Glucose mass conc 80 mg/dL Invalid Interpretation Code [facility] HCG.beta subunit ( test) Ql (U) Negative Invalid Interpretation Code [facility] heterophile antibody screen (Monospot) Negative Invalid Interpretation Code [facility] Urine, appearance cloudy Invalid Interpretation Code [facility] Urine, glucose presence Negative Invalid Interpretation Code [facility] Urine, nitrite presence Negative Invalid Interpretation Code [facility] Urine, urobilinogen presence 1 Invalid Interpretation Code [facility] Lab Report: Lyme Screen W/Re flex WBon 03-19-2016 LYME SCN INTERP REF LAB Invalid Interpretation Code [facility] Lab Report: (P) Lyme Screen W/Reflex WBon 03-14-2016 Borrelia burgdorferi (Lyme Disease,) DNA <0.91 Invalid Interpretation Code 0.00-0.90 [facility] Lab Report: CRPon 03-12-2016 C reactive protein (CRP) mg/L Invalid Interpretation Code 0.0-3.0 [facility] Lab Report: Erythrocyte Sed Rateon 03-12-2016 Erythrocyte sedimentation rate 10 mm/h Invalid Interpretation Code 0-20 [facility] Replaced Document: (P) CBC W /Diff, Automatedon 03-12-2016 Absolute Neut 5.7 X10 3/UL Invalid Interpretation Code 2.0-7.7 [facility] Basophils/100 WBC Auto (Bld) 0.2 % Invalid Interpretation Code 0-1 [facility] Eosinophils/100 leukocytes 1.1 % Invalid Interpretation Code 0-5 [facility] Erythrocyte distribution width Auto Ratio (RBC) 13.0 % Invalid Interpretation Code 11.6-14.6 [facility] Erythrocytes (RBC) 5.24 10*6/uL Invalid Interpretation Code 4.2-5.4 [facility] Hematocrit (HCT) 43.5 % Invalid Interpretation Code 37-47 [facility] Hemoglobin mass conc (Bld) 14.0 g/dL Invalid Interpretation Code 12.0-15.0 [facility] Immature granulocytes/100 WBC (Bld) 0.100 % Invalid Interpretation Code 0.0-0.9 [facility] Lymphocytes 2.18 X10 3/UL Invalid Interpretation Code 0.83-4.51 [facility] Lymphocytes/100 leukocytes 25.7 % Invalid Interpretation Code 19-41 [facility] MCH 26.7 pg Low 27.0-32.0 [facility] MCHC mass conc (RBC) 32.2 G/GL Invalid Interpretation Code 32-36 [facility] MCV 83.0 fL Invalid Interpretation Code 81-99 [facility] Monocytes/100 leukocytes 6.1 % Invalid Interpretation Code 0-10 [facility] Neutrophils/100 WBC Auto (Bld) 66.8 % Invalid Interpretation Code 47-70 [facility] Platelets 253 10*3/mm3 Invalid Interpretation Code 150-450 [facility] PMV by Parul 9.8 fL Invalid Interpretation Code 6.2-12.0 [facility] RDW SD 38.9 fL Invalid Interpretation Code 35.1-43.9 [facility] WBC (Leukocytes) 8.5 10*3/uL Invalid Interpretation Code 4.4-11.0 [facility] Lab Report: Basic Metabolic Profile (BMP)on 11-06-2015 Anion gap 5 mmol/L Invalid Interpretation Code 5-15 [facility] BUN/Creatinine Ratio 15.3 RATIO Invalid Interpretation Code 10-20 [facility] Calcium 9.4 mg/dL Invalid Interpretation Code 8.5-10.1 [facility] Chloride 109 mmol/L High 98-107 [facility] CO2 30.0 mmol/L Invalid Interpretation Code 21.0-32.0 [facility] Creatinine 78.51 mL/min Invalid Interpretation Code [facility] Creatinine 0.78 mg/dL Invalid Interpretation Code 0.55-1.20 [facility] eGFR (non-black) 94 mL/min/{1.73_m2} Invalid Interpretation Code >60 [facility] eGFR (non-black) 114 mL/min/{1.73_m2} Invalid Interpretation Code >60 [facility] Glucose mass conc 105 mg/dL Invalid Interpretation Code 70-110 [facility] Potassium molar conc 4.0 mmol/L Invalid Interpretation Code 3.5-5.1 [facility] Sodium 144 mmol/L Invalid Interpretation Code 136-145 [facility] Urea nitrogen 12 mg/dL Invalid Interpretation Code 7-18 [facility] Lab Report: Lipaseon 016 LIPASE 119 U/L Invalid Interpretation Code 73-393 [facility] Lab Report: Liver Profileon 11-06-2015 Alanine aminotransferase (ALT) 22 U/L Invalid Interpretation Code 12-78 [facility] Albumin 4.1 g/dL Invalid Interpretation Code 3.4-5.0 [facility] Alkaline phosphatase (ALP) 61 U/L Invalid Interpretation Code 50-136 [facility] Aspartate aminotransferase (AST) 16 U/L Invalid Interpretation Code 15-37 [facility] Bilirubin (direct) 0.15 mg/dL Invalid Interpretation Code 0.00-0.30 [facility] Bilirubin (total) 1.00 mg/dL Invalid Interpretation Code 0.20-1.00 [facility] Globulin 3.8 g/dL High 2.3-3.5 [facility] Protein 7.9 g/dL Invalid Interpretation Code 6.4-8.2 [facility] Lab Report: ,Serum, hCG Quali.on 11-06-2015 HCG.beta subunit Qn m[IU]/mL Invalid Interpretation Code =>Qualitativ e [facility] Replaced Document: (P) Pregn adriane,Serum,hCG Quali.on 11-06-2015 HCG.beta subunit ( test) Ql Negative Invalid Interpretation Code 0-9 Nonpreg [facility] Lab Report: CRPon 09-27-2014 C-REACTIVE PROT < 2.90 Invalid Interpretation Code 0.0-3.0 [facility] Lab Report: Comprehensive Me tabolic Profilon 09-27-2014 Albumin/Globulin Ratio 1.1 {ratio} Invalid Interpretation Code 0.9-2.4 [facility] Lab Report: Folates, (Folic Acid)on 09-27-2014 Folate 16.20 ng/mL Invalid Interpretation Code 3.1-17.5 [facility] Lab Report: Thyroid Stim Hor rodolfo (TSH)on 09-27-2014 Thyroid stimulating hormone (TSH) 1.05 u[iU]/mL Invalid Interpretation Code 0.358-3.74 [facility] Lab Report: Vitamin B12on Cobalamins (Vitamin B12) 401 pg/mL Invalid Interpretation Code 211-911 [facility] Replaced Document: (P) CBC W /Diff, Automatedon 09-27-2014 Absolute Neut 7.7 X10 3/UL Invalid Interpretation Code 2.0-7.7 [facility] Office Visit: new annualon 0 09-05-2013 General categories [Interpretation] of Cervical or vaginal smear or scraping by Cyto stain Normal Invalid Interpretation Code [facility] Anaerobic culture Bacteria identified Anaer cx Nom (Unsp spec) No growth in 5 days. [facility] Work Phone: Culture, urine Bacteria identified Cx Nom (U) Culture exhibits no growth. [facility] Work Phone: Gram stain for investigation of transfusion reaction Microscopic observation Gram stain Nom (Unsp spec) [facility] Work Phone: Routine wound culture Bacteria identified Cx Nom (Wound) No growth aerobically. [facility] Work Phone: Thin prep Papanicolaou smear with manual screening Genital Culture Escherichia coli [facility] Work Phone: Vital Signs Date Time Vital Sign Value Performing Clinician Facility 03-14-2025 15:16-0400 Body height 149.86 cm Stephanie Kramer [employer] Work Phone: [facility] 03-14-2025 15:16-0400 Body mass index (BMI) [Ratio] 26.4 kg/m2 Stephanie Kramer [employer] Work Phone: [facility] 03-14-2025 15:16-0400 Body weight 59.42 kg Stephanie Kramer [employer] Work Phone: [facility] 03-14-2025 15:16-0400 Diastolic blood pressure 68 mm[Hg] Stephanie Kramer [employer] Work Phone: [facility] 03-14-2025 15:16-0400 Systolic blood pressure 108 mm[Hg] Stephanie Kramer [employer] Work Phone: [facility] 01-03-2025 10:56-0400 Body temperature 98.1 [degF] Stephanie Kramer [employer] Work Phone: [facility] 01-03-2025 10:56-0400 Diastolic blood pressure 60 mm[Hg] Stephanie Kramer [employer] Work Phone: [facility] 01-03-2025 10:56-0400 Heart rate 70 /min Stephanie Kramer [employer] Work Phone: [facility] 01-03-2025 10:56-0400 Respiratory rate 14 /min Stephanie Kramer [employer] Work Phone: [facility] 01-03-2025 10:56-0400 SaO2% (BldA) [Mass fraction] 98 % Stephanie Kramer [employer] Work Phone: [facility] 01-03-2025 10:56-0400 Systolic blood pressure 100 mm[Hg] Stephanie Kramer [employer] Work Phone: [facility] 12-30-2024 11:34-0400 Body temperature 98.8 [degF] Stephanie Kramer [employer] Work Phone: [facility] 12-30-2024 11:34-0400 Diastolic blood pressure 60 mm[Hg] Stephanie Kramer [employer] Work Phone: [facility] 12-30-2024 11:34-0400 Heart rate 80 /min Stephanie Kramer [employer] Work Phone: [facility] 12-30-2024 11:34-0400 SaO2% (BldA) [Mass fraction] 96 % Stephanie Kramer [employer] Work Phone: [facility] 12-30-2024 11:34-0400 Systolic blood pressure 100 mm[Hg] Stephanie Kramer [employer] Work Phone: [facility] 12-30-2024 11:15-0400 Body height 149.86 cm Stephanie Kramer [employer] Work Phone: [facility] 11-02-2023 17:18-0500 Body height 149.86 cm [employer] Stephanie Kramer [employer] Work Phone: [facility] 11-02-2023 17:18-0500 Body mass index (BMI) [Ratio] 24.9 kg/m2 [employer] Stephanie Kramer [employer] Work Phone: [facility] 11-02-2023 17:18-0500 Body temperature 98.1 [degF] [employer] Stephanie Kramer [employer] Work Phone: [facility] 11-02-2023 17:18-0500 Body weight 55.96 kg [employer] Stephanie Kramer [employer] Work Phone: [facility] 11-02-2023 17:18-0500 Diastolic blood pressure 60 mm[Hg] [employer] Stephanie Kramer [employer] Work Phone: [facility] 11-02-2023 17:18-0500 Heart rate 85 /min [employer] Stephanie Kramer [employer] Work Phone: [facility] 11-02-2023 17:18-0500 Respiratory rate 17 /min [employer] Stephanie Kramer [employer] Work Phone: [facility] 11-02-2023 17:18-0500 SaO2% (BldA) [Mass fraction] 98 % [employer] Stephanie Kramer [employer] Work Phone: [facility] 11-02-2023 17:18-0500 Systolic blood pressure 102 mm[Hg] [employer] Stephanie Kramer [employer] Work Phone: [facility] 10-31-2023 11:40-0500 Body temperature 98.3 [degF] [employer] Stephanie Kramer [employer] Work Phone: [facility] 10-31-2023 11:40-0500 Diastolic blood pressure 77 mm[Hg] [employer] Stephanie Kramer [employer] Work Phone: [facility] 10-31-2023 11:40-0500 Heart rate 74 /min [employer] Stephanie Kramer [employer] Work Phone: [facility] 10-31-2023 11:40-0500 Respiratory rate 16 /min [employer] Stephanie Kramer [employer] Work Phone: [facility] 10-31-2023 11:40-0500 SaO2% (BldA) [Mass fraction] 99 % [employer] Stephanie Kramer [employer] Work Phone: [facility] 10-31-2023 11:40-0500 Systolic blood pressure 104 mm[Hg] [employer]-Orquidea Kramer [employer] Work Phone: [facility] 10-31-2023 09:38-0500 Body mass index (BMI) [Ratio] 24 kg/m2 [employer] Stephanie Kramer [employer] Work Phone: [facility] 10-31-2023 09:38-0500 Body weight 55.42 kg [employer]Orquidea Kramer [employer] Work Phone: [facility] 05-04-2023 14:53-0400 Body height 152.4 cm [employer] Stephanie Kramer [employer] Work Phone: [facility] 05-04-2023 14:53-0400 Body mass index (BMI) [Ratio] 24 kg/m2 [employer] Stephanie Kramer [employer] Work Phone: [facility] 05-04-2023 14:53-0400 Body weight 55.79 kg [employer] Stephanie Kramer [employer] Work Phone: [facility] 05-04-2023 14:53-0400 Diastolic blood pressure 80 mm[Hg] [employer]Orquidea Kramer [employer] Work Phone: [facility] 05-04-2023 14:53-0400 Heart rate 84 /min [employer]-Orquidea Kramer [employer] Work Phone: [facility] 05-04-2023 14:53-0400 Respiratory rate 16 /min [employer]Orquidea Kramer [employer] Work Phone: [facility] 05-04-2023 14:53-0400 SaO2% (BldA) [Mass fraction] 98 % [employer]Orquidea Kramer [employer] Work Phone: [facility] 05-04-2023 14:53-0400 Systolic blood pressure 112 mm[Hg] [employer]-Orquidea Kramer [employer] Work Phone: [facility] 04-28-2023 11:07-0400 Body temperature 98 [degF] [employer] Stephanie Kramer [employer] Work Phone: [facility] 04-28-2023 11:07-0400 Diastolic blood pressure 74 mm[Hg] [employer] Stephanie Kramer [employer] Work Phone: [facility] 04-28-2023 11:07-0400 Heart rate 92 /min [employer] Stephanie Kramer [employer] Work Phone: [facility] 04-28-2023 11:07-0400 Respiratory rate 14 /min [employer] Stephanie Kramer [employer] Work Phone: [facility] 04-28-2023 11:07-0400 SaO2% (BldA) [Mass fraction] 98 % [employer]-Orquidea Kramer [employer] Work Phone: [facility] 04-28-2023 11:07-0400 Systolic blood pressure 118 mm[Hg] [employer]-Orquidea Kramer [employer] Work Phone: [facility] 10-13-2022 13:54-0500 Body mass index (BMI) [Ratio] 25.7 kg/m2 Dr. Naheed Kam Work Phone: [facility] 10-13-2022 13:54-0500 Body weight 59.[address] Naheed Kam Work Phone: [facility] 10-13-2022 13:54-0500 Diastolic blood pressure 75 mm[Hg] Dr. Naheed Kam Work Phone: [facility] 10-13-2022 13:54-0500 Systolic blood pressure 113 mm[Hg] Dr. Naheed Kam Work Phone: [facility] 09-14-2022 09:15-0500 Body height 152.[address] Naheed Kam Work Phone: [facility] Work Phone: 09-14-2022 09:15-0500 Body mass index (BMI) [Ratio] 25.2 kg/m2 Dr. Naheed Kam Work Phone: [facility] Work Phone: 09-14-2022 09:15-0500 Body weight 58.[address] Naheed Kam Work Phone: [facility] Work Phone: 09-14-2022 09:15-0500 Diastolic blood pressure 80 mm[Hg] Dr. Naheed Kam Work Phone: [facility] Work Phone: 09-14-2022 09:15-0500 Systolic blood pressure 111 mm[Hg] Dr. Naheed Kam Work Phone: [facility] Work Phone: 08-30-2022 02:06-0500 Diastolic blood pressure 71 mm[Hg] Dr. Naheed Kam Work Phone: [facility] Work Phone: 08-30-2022 02:06-0500 Heart rate 72 /min Dr. Naheed Kam Work Phone: [facility] Work Phone: 08-30-2022 02:06-0500 Respiratory rate 14 /min Dr. Naheed Kam Work Phone: [facility] Work Phone: 08-30-2022 02:06-0500 SaO2% (BldA) [Mass fraction] 99 % Dr. Naheed Kam Work Phone: [facility] Work Phone: 08-30-2022 02:06-0500 Systolic blood pressure 115 mm[Hg] Dr. Naheed Kam Work Phone: [facility] Work Phone: 08-29-2022 23:31-0500 Body height 152.[address] Naheed Kam Work Phone: [facility] Work Phone: 08-29-2022 23:31-0500 Body mass index (BMI) [Ratio] 26.5 kg/m2 Dr. Naheed Kam Work Phone: [facility] Work Phone: 08-29-2022 23:31-0500 Body temperature 97.1 [degF] Dr. Naheed Kam Work Phone: [facility] Work Phone: 08-29-2022 23:31-0500 Body weight 61.[address] Naheed Kam Work Phone: [facility] Work Phone: 08-26-2022 12:00-0500 Body temperature 97.3 [degF] Dr. Naheed Kam Work Phone: [facility] Work Phone: 08-26-2022 12:00-0500 Diastolic blood pressure 65 mm[Hg] Dr. Naheed Kam Work Phone: [facility] Work Phone: 08-26-2022 12:00-0500 Heart rate 98 /min Dr. Naheed Kam Work Phone: [facility] Work Phone: 08-26-2022 12:00-0500 Respiratory rate 18 /min Dr. Naheed Kam Work Phone: [facility] Work Phone: 08-26-2022 12:00-0500 SaO2% (BldA) [Mass fraction] 99 % Dr. Naheed Kam Work Phone: [facility] Work Phone: 08-26-2022 12:00-0500 Systolic blood pressure 110 mm[Hg] Dr. Naheed Kam Work Phone: [facility] Work Phone: 08-24-2022 13:49-0500 Body height 152.[address] Naheed Kam Work Phone: [facility] Work Phone: 08-24-2022 13:49-0500 Body weight 59.[address] Naheed Kam Work Phone: [facility] Work Phone: 08-23-2022 17:55-0500 Body mass index (BMI) [Ratio] 25.4 kg/m2 Dr. Naheed Kam Work Phone: [facility] Work Phone: 08-23-2022 16:11-0500 Body temperature 98.2 [degF] Dr. Naheed Kam Work Phone: [facility] Work Phone: 08-23-2022 16:11-0500 Diastolic blood pressure 75 mm[Hg] Dr. Naheed Kam Work Phone: [facility] Work Phone: 08-23-2022 16:11-0500 Heart rate 98 /min Dr. Naheed Kam Work Phone: [facility] Work Phone: 08-23-2022 16:11-0500 Respiratory rate 18 /min Dr. Naheed Kam Work Phone: [facility] Work Phone: 08-23-2022 16:11-0500 SaO2% (BldA) [Mass fraction] 100 % Dr. Naheed Kam Work Phone: [facility] Work Phone: 08-23-2022 16:11-0500 Systolic blood pressure 111 mm[Hg] Dr. Naheed Kam Work Phone: [facility] Work Phone: 08-23-2022 11:49-0500 Body height 152.[address] Naheed Kam Work Phone: [facility] Work Phone: 08-23-2022 11:49-0500 Body mass index (BMI) [Ratio] 25.4 kg/m2 Dr. Naheed Kam Work Phone: [facility] Work Phone: 08-23-2022 11:49-0500 Body weight 58.[address] Naheed Kam Work Phone: [facility] Work Phone: 08-23-2022 11:01-0500 Body mass index (BMI) [Ratio] 25.4 kg/m2 Dr. Naheed Kam Work Phone: [facility] Work Phone: 08-23-2022 11:01-0500 Body temperature 98.1 [degF] Dr. Naheed Kam Work Phone: [facility] Work Phone: 08-23-2022 11:01-0500 Body weight 59.[address] Nhaeed Kam Work Phone: [facility] Work Phone: 08-23-2022 11:01-0500 Diastolic blood pressure 73 mm[Hg] Dr. Naheed Kam Work Phone: [facility] Work Phone: 08-23-2022 11:01-0500 Systolic blood pressure 115 mm[Hg] Dr. Naheed Kam Work Phone: [facility] Work Phone: 08-13-2022 15:53-0500 Diastolic blood pressure 77 mm[Hg] Dr. Naheed Kam Work Phone: [facility] Work Phone: 08-13-2022 15:53-0500 Heart rate 96 /min Dr. Naheed Kam Work Phone: [facility] Work Phone: 08-13-2022 15:53-0500 Respiratory rate 14 /min Dr. Naheed Kam Work Phone: [facility] Work Phone: 08-13-2022 15:53-0500 SaO2% (BldA) [Mass fraction] 100 % Dr. Naheed Kam Work Phone: [facility] Work Phone: 08-13-2022 15:53-0500 Systolic blood pressure 124 mm[Hg] Dr. Naheed Kam Work Phone: [facility] Work Phone: 08-13-2022 10:22-0500 Body mass index (BMI) [Ratio] 28.2 kg/m2 Dr. Naheed Kam Work Phone: [facility] Work Phone: 08-13-2022 10:22-0500 Body temperature 97 [degF] Dr. Naheed Kam Work Phone: [facility] Work Phone: 08-13-2022 10:22-0500 Body weight 65.[address] Naheed Kam Work Phone: [facility] Work Phone: 08-12-2022 14:50-0500 Body temperature 98.7 [degF] Dr. Naheed Kam Work Phone: [facility] Work Phone: 08-12-2022 14:50-0500 Diastolic blood pressure 66 mm[Hg] Dr. Naheed Kam Work Phone: [facility] Work Phone: 08-12-2022 14:50-0500 Heart rate 84 /min Dr. Naheed Kam Work Phone: [facility] Work Phone: 08-12-2022 14:50-0500 Respiratory rate 16 /min Dr. Naheed Kam Work Phone: [facility] Work Phone: 08-12-2022 14:50-0500 SaO2% (BldA) [Mass fraction] 98 % Dr. Naheed Kam Work Phone: [facility] Work Phone: 08-12-2022 14:50-0500 Systolic blood pressure 97 mm[Hg] Dr. Naheed Kam Work Phone: [facility] Work Phone: 08-12-2022 09:02-0500 Body temperature 98.6 [degF] Dr. Naheed Kam Work Phone: [facility] Work Phone: 08-12-2022 09:02-0500 Diastolic blood pressure 55 mm[Hg] Dr. Naheed Kam Work Phone: [facility] Work Phone: 08-12-2022 09:02-0500 Heart rate 83 /min Dr. Naheed Kam Work Phone: [facility] Work Phone: 08-12-2022 09:02-0500 Respiratory rate 18 /min Dr. Naheed Kam Work Phone: [facility] Work Phone: 08-12-2022 09:02-0500 SaO2% (BldA) [Mass fraction] 98 % Dr. Naheed Kam Work Phone: [facility] Work Phone: 08-12-2022 09:02-0500 Systolic blood pressure 89 mm[Hg] Dr. Naheed Kam Work Phone: [facility] Work Phone: 08-11-2022 14:11-0500 Body temperature 99.3 [degF] Dr. Naheed Kam Work Phone: [facility] Work Phone: 08-11-2022 14:11-0500 Diastolic blood pressure 58 mm[Hg] Dr. Naheed Kam Work Phone: [facility] Work Phone: 08-11-2022 14:11-0500 Heart rate 81 /min Dr. Naheed Kam Work Phone: [facility] Work Phone: 08-11-2022 14:11-0500 Respiratory rate 16 /min Dr. Naheed Kam Work Phone: [facility] Work Phone: 08-11-2022 14:11-0500 SaO2% (BldA) [Mass fraction] 98 % Dr. Naheed Kam Work Phone: [facility] Work Phone: 08-11-2022 14:11-0500 Systolic blood pressure 94 mm[Hg] Dr. Naheed Kam Work Phone: [facility] Work Phone: 08-11-2022 06:00-0500 Inhaled oxygen flow rate 4 L/min Dr. Naheed Kam Work Phone: [facility] Work Phone: 08-10-2022 18:21-0500 Body height 151.[address] Naheed Kam Work Phone: [facility] Work Phone: 08-10-2022 18:21-0500 Body mass index (BMI) [Ratio] 26.4 kg/m2 Dr. Naheed Kam Work Phone: [facility] Work Phone: 08-10-2022 18:21-0500 Body weight [address] Naheed Kam Work Phone: [facility] Work Phone: 07-28-2022 14:29-0500 Body mass index (BMI) [Ratio] 26.8 kg/m2 Dr. Naheed Kam Work Phone: [facility] Work Phone: 07-28-2022 14:29-0500 Body weight 62.[address] Naheed Kam Work Phone: [facility] Work Phone: 07-28-2022 14:29-0500 Diastolic blood pressure 72 mm[Hg] Dr. Naheed Kam Work Phone: [facility] Work Phone: 07-28-2022 14:29-0500 Systolic blood pressure 115 mm[Hg] Dr. Naheed Kam Work Phone: [facility] Work Phone: 06-24-2022 17:31-0400 Body mass index (BMI) [Ratio] 26.2 kg/m2 Dr. Naheed Kam Work Phone: [facility] Work Phone: 06-24-2022 17:31-0400 Body weight 60.[address] Naheed Kam Work Phone: [facility] Work Phone: 06-01-2022 14:31-0400 Body temperature 98.2 [degF] Dr. Naheed Kam Work Phone: [facility] Work Phone: 06-01-2022 14:31-0400 Diastolic blood pressure 82 mm[Hg] Dr. Naheed Kam Work Phone: [facility] Work Phone: 06-01-2022 14:31-0400 Heart rate 86 /min Dr. Naheed Kam Work Phone: [facility] Work Phone: 06-01-2022 14:31-0400 Respiratory rate 18 /min Dr. Naheed Kam Work Phone: [facility] Work Phone: 06-01-2022 14:31-0400 SaO2% (BldA) [Mass fraction] 99 % Dr. Naheed Kam Work Phone: [facility] Work Phone: 06-01-2022 14:31-0400 Systolic blood pressure 118 mm[Hg] Dr. Naheed Kam Work Phone: [facility] Work Phone: 05-14-2022 09:00-0400 Body height 152.[address] Naheed Kam Work Phone: [facility] Work Phone: 05-14-2022 09:00-0400 Body mass index (BMI) [Ratio] 26 kg/m2 Dr. Naheed Kam Work Phone: [facility] Work Phone: 05-14-2022 09:00-0400 Body weight 60.[address] Naheed Kam Work Phone: [facility] Work Phone: 05-14-2022 09:00-0400 Diastolic blood pressure 75 mm[Hg] Dr. Naheed Kam Work Phone: [facility] Work Phone: 05-14-2022 09:00-0400 Systolic blood pressure 115 mm[Hg] Dr. Naheed Kam Work Phone: [facility] Work Phone: 02-10-2022 14:47-0400 Body height 152.[address] Naheed Kam Work Phone: [facility] Work Phone: 02-10-2022 14:47-0400 Body mass index (BMI) [Ratio] 25.6 kg/m2 Dr. Naheed Kam Work Phone: [facility] Work Phone: 02-10-2022 14:47-0400 Body weight 59.[address] Naheed Kam Work Phone: [facility] Work Phone: 02-10-2022 14:47-0400 Diastolic blood pressure 70 mm[Hg] Dr. Naheed Kam Work Phone: [facility] Work Phone: 02-10-2022 14:47-0400 Systolic blood pressure 110 mm[Hg] Dr. Naheed Kam Work Phone: [facility] Work Phone: 01-20-2022 12:10-0400 Body temperature 98.4 [degF] Dr. Naheed Kam Work Phone: [facility] Work Phone: 01-20-2022 12:10-0400 Diastolic blood pressure 62 mm[Hg] Dr. Naheed Kam Work Phone: [facility] Work Phone: 01-20-2022 12:10-0400 Heart rate 92 /min Dr. Naheed Kam Work Phone: [facility] Work Phone: 01-20-2022 12:10-0400 Respiratory rate 14 /min Dr. Naheed Kam Work Phone: [facility] Work Phone: 01-20-2022 12:10-0400 SaO2% (BldA) [Mass fraction] 99 % Dr. Naheed Kam Work Phone: [facility] Work Phone: 01-20-2022 12:10-0400 Systolic blood pressure 114 mm[Hg] Dr. Naheed Kam Work Phone: [facility] Work Phone: 06-29-2017 08:07-0400 BMI (Body Mass Index) 24.25 kg/m2 Cindy Vivas NP [facility] 06-29-2017 08:07-0400 Body Temperature 97 [degF] Cindy Vivas ACCOUNTING CLERKS SUPERVISOR [facility] 06-29-2017 08:07-0400 BP Diastolic 74 mm[Hg] Cindy Vivas ACCOUNTING [employer]ERKS SUPERVISOR [facility] 06-29-2017 08:07-0400 BP Systolic 109 mm[Hg] Cindy Vivas ACCOUNTING [employer]ERKS SUPERVISOR [facility] 06-29-2017 08:07-0400 Height 152.4 cm Cindy Vivas NP [facility] 06-29-2017 08:07-0400 Pulse (Heart Rate) 77 /min Cindy Vivas NP [facility] 06-29-2017 08:07-0400 Respiratory Rate 16 /min Cindy Vivas NP [facility] 06-29-2017 08:07-0400 Weight 56.34 kg Cindy Vivas NP [facility] 03-11-2016 17:40-0400 BSA (Body Surface Area) 1.52 m[address] Vivas NP [facility] Encounters Encounter Date Encounter Type Care Provider Facility Start: 05-16-2025 ambulatory Elsie Newby Facility:[facility] Start: 04-26-2025 ambulatory Stephanie Kramer NP Fa cility:[facility] Start: 04-04-2025 End: 04-04-[address] Elsie Newby [place] -[facility] Work Phone: Start: 04-04-2025 End: 04-04-2025 ambulatory Stephanie Kramer ACCOUNTING [employer]ERKS SUPERVISOR-C Work Phone: -[facility] Start: 03-14-2025 End: 03-14-[address] Elsie Newby [place] -[facility] Work Phone: Start: 03-14-2025 End: 03-14-2025 ambulatory Stephanie Kramer ACCOUNTING [employer]ERKS SUPERVISOR-C Work Phone: -[facility] Start: 01-07-2025 End: 01-07-2025 ambulatory Stephanie Kramer ACCOUNTING [employer]ERKS SUPERVISOR-C Work Phone: [facility] Work Phone: Start: 01-07-2025 End: 01-07-2025 Patient encounter procedure Stephanie Kramer ACCOUNTING CLERKS SUPERVISOR-C -Radiology, [facility] Work Phone: Start: 01-07-2025 End: 01-07-2025 ambulatory Stephanie Kramer ACCOUNTING [employer]ERKS SUPERVISOR Facility:[facility] Start: 01-03-2025 End: 01-03-2025 Patient encounter procedure Luis Armando Scherer [facility] Work Phone: Start: 01-03-2025 End: 01-03-2025 ambulatory Luis Armando POON Facility:[facility] Start: 12-30-2024 End: 12-30-2024 Patient encounter procedure Solomon Luz ACCOUNTING CLERKS SUPERVISOR-C -[facility] Work Phone: Start: 12-30-2024 End: 12-30-2024 ambulatory Solomon Luz ACCOUNTING [employer]ERKS SUPERVISOR Facility[facility] Start: 10-18-2024 ambulatory Cassy White ty:[facility] Start: 09-21-2024 End: 09-21-2024 Patient encounter procedure Stephanie Kramer ACCOUNTING [employer]ERKS SUPERVISOR-C Work Phone: -Laboratory Work Phone: Start: 09-20-2024 End: 09-24-2024 ambulatory STEPHANIE KRAMER WELL DRILLER HELPER-PULP GRINDER Facility:[facility] Start: 09-20-2024 End: 09-24-2024 Outreach Lab OMARI EMERY WELL DRILLER HELPER-PULP GRINDER [facility] Start: 08-15-2024 ambulatory Cassy Haideri ty:[facility] Start: 08-12-2024 End: 08-12-2024 ambulatory Stephanie Kramer ACCOUNTING [employer]ERKS SUPERVISOR Facility:[facility] Start: 08-08-2024 End: 08-08-2024 ambulatory Stephanie Kramer ACCOUNTING [employer]ERKS SUPERVISOR Facility:[facility] Start: 07-23-2024 End: 08-04-2024 ambulatory Cassy Atanasov Facility:[facility] Start: 07-17-2024 End: 07-17-2024 ambulatory Cassy Keenannasov Facility:[facility] Start: 07-06-2024 End: 07-06-2024 ambulatory Magda Vaccarelli Facility:[facility] Start: 06-25-2024 End: 07-05-2024 ambulatory Cassy Aliceaov Facility:[facility] Start: 06-21-2024 End: 06-21-2024 ambulatory Igor Friend Facility:[facility] Start: 06-19-2024 End: 06-19-2024 ambulatory Igor Friend Facility:[facility] Start: 06-16-2024 End: 06-16-2024 ambulatory Magda Vaccarelli Facility:[facility] Start: 06-01-2024 End: 06-01-2024 ambulatory Stephanie Kramer NP Facility:[facility] Start: 05-31-2024 End: 05-31-2024 ambulatory ELDER MAST Facility:[facility] Start: 05-23-2024 End: 05-27-2024 ambulatory STEPHANIE KRAMER WELL DRILLER HELPER-PULP GRINDER Facility:[facility] Start: 05-23-2024 End: 05-27-2024 Outreach Lab VERONICA FRANCO WELL DRILLER HELPER-PULP GRINDER [facility] Start: 05-23-2024 End: 05-23-2024 ambulatory Stephanie Kramer NP Facility:[facility] Start: 11-10-2023 End: 11-10-2023 ambulatory ACCOUNTING [employer]ERKS SUPERVISOR-Orquidea Kramer NP Work Phone: [facility] Work Phone: Start: 11-10-2023 End: 11-10-2023 Patient encounter procedure ACCOUNTING [employer]ERKS SUPERVISOR-Orquidea Kramer ACCOUNTING [employer]ERKS SUPERVISOR Work Phone: [facility]-Laboratory Work Phone: Start: 11-02-2023 End: 11-02-2023 Patient encounter procedure ACCOUNTING [employer]ERKS SUPERVISOR-Orquidea Kramer [facility] Work [facility]: Start: 10-31-2023 End: 10-31-2023 Emergency department patient visit ACCOUNTING [employer]ERKS SUPERVISOR-C Stephanie Kramer ACCOUNTING CLERKS SUPERVISOR Work Phone: [facility]-Emergency Department Work Phone: Start: 07-01-2023 End: 07-01-2023 ambulatory [facility] Work Phone: Start: 07-01-2023 End: 07-01-2023 Discharged Recurring [facility]-Physical Therapy Work Phone: Start: 07-01-2023 Registered Recurring ACCOUNTING [employer]ERKS SUPERVISOR-C Kezia Kramer ACCOUNTING CLERKS SUPERVISOR Work Phone: [facility]-Physical Therapy Work Phone: Start: 06-28-2023 End: 06-28-2023 ambulatory ACCOUNTING [employer]ERKS SUPERVISOR-C Stephanie Kramer ACCOUNTING CLERKS SUPERVISOR Work Phone: [facility] Work Phone: Start: 06-28-2023 End: 06-28-2023 Patient encounter procedure ACCOUNTING [employer]ERKS SUPERVISOR-C Stephanie Kramer ACCOUNTING CLERKS SUPERVISOR Work Phone: [facility]-Outpatient Breast Imaging Work Phone: Start: 06-02-2023 End: 06-02-2023 ambulatory ACCOUNTING [employer]ERKS SUPERVISOR-C Stephanie Kramer ACCOUNTING CLERKS SUPERVISOR Work Phone: [facility] Work Phone: Start: 06-02-2023 End: 06-02-2023 Patient encounter procedure ACCOUNTING [employer]ERKS SUPERVISOR-C Stephanie Kramer ACCOUNTING CLERKS SUPERVISOR Work Phone: [facility]-Cat Scan, [facility] Work Phone: Start: 05-31-2023 End: 05-31-2023 ambulatory ACCOUNTING [employer]ERKS SUPERVISOR-C Stephanie Kramer ACCOUNTING CLERKS SUPERVISOR Work Phone: [facility] Work Phone: Start: 05-31-2023 End: 05-31-2023 Patient encounter procedure ACCOUNTING [employer]ERKS SUPERVISOR-C Stephanie Kramer ACCOUNTING CLERKS SUPERVISOR Work Phone: [facility]-Laboratory Work Phone: Start: 05-04-2023 End: 05-04-2023 Patient encounter procedure ACCOUNTING [employer]ERKS SUPERVISOR-C Stephanie Kramer ACCOUNTING CLERKS SUPERVISOR Work Phone: [facility] Work Phone: Start: 04-28-2023 End: 04-28-2023 Patient encounter procedure ACCOUNTING CLERKS SUPERVISOR-Orquidea Kramer ACCOUNTING CLERKS SUPERVISOR Work Phone: [facility] Work Phone: Start: 04-21-2023 Registered Referred ACCOUNTING CLERKS SUPERVISOR-Orquidea Kramer ACCOUNTING CLERKS SUPERVISOR Work Phone: [facility] Start: 01-11-2023 End: 01-11-[address] Naheed Kam Work Phone: [facility] Work Phone: Start: 01-11-2023 End: 01-11-[address] Naheed Kam Work Phone: [facility]-Laboratory Start: 10-13-2022 End: 10-13-[address] Naheed Kam Work Phone: [facility] Start: 09-14-2022 End: 09-14-[address] Naheed Kam Work Phone: [facility] Work Phone: Start: 09-14-2022 End: 09-14-[address] Naheed Kam Work Phone: [facility]-Laboratory, Specimen Start: 09-14-2022 End: 09-14-[address] Naheed Kam Work Phone: [facility] Start: 08-29-2022 End: 08-30-2022 Emergency department patient visit Dr. Naheed Kam Work Phone: [facility]-Emergency Department Start: 08-26-2022 Non-patient / Non-visit Dr. Chel Kam Work Phone: [facility] Start: 08-25-2022 Non-patient / Non-visit Dr. Chel Kam Work Phone: [facility] Start: 08-24-2022 Non-patient / Non-visit Dr. Chel Kam Work Phone: [facility] Start: 08-23-2022 End: 08-26-2022 Evaluation and management of inpatient [facility] Start: 08-23-2022 Non-patient / Non-visit Dr. Chel Kam Work Phone: [facility] Start: 08-23-2022 Admission to [facility] Dr[facility]heed [facility] Start: 08-23-[address] Naheed Kam Work Phone: [facility] Work Phone: Start: 08-23-2022 End: 08-23-[address] Naheed Kam Work Phone: [facility] Work Phone: Start: 08-23-2022 End: 08-23-[address] Naheed Kam Work Phone: [facility] Start: 08-13-2022 End: 08-13-2022 Emergency department patient visit Dr. Naheed Kam Work Phone: [facility]-Emergency Department Start: 08-12-2022 Non-patient / Non-visit Dr. Chel Kam Work Phone: [facility] Start: 08-11-2022 Non-patient / Non-visit Dr. Chel Kam Work Phone: [facility] Start: 08-10-2022 End: 08-12-2022 Evaluation and management of inpatient Dr. Naheed [facility] Start: 08-10-2022 End: 08-12-[address] Naheed Kam Work Phone: [facility] Work Phone: Start: 08-10-2022 Non-patient / Non-visit Dr. Chel Kam Work Phone: [facility] Start: 07-28-2022 End: 07-28-[address] Naheed Kam Work Phone: [facility] Start: 07-22-2022 End: 07-22-[address] Naheed Kam Work Phone: [facility] Start: 2022 End: [address] Naheed Kam Work Phone: [facility] Start: 06-25-2022 End: 06-25-[address] Naheed Kam Work Phone: [facility] Start: 06-24-2022 End: 06-24-[address] Naheed Kam Work Phone: [facility] Start: 06-18-2022 End: 06-18-[address] Naheed Kam Work Phone: [facility] Work Phone: Start: 06-18-2022 End: 06-18-[address] Naheed Kam Work Phone: [facility]-Outpatient Breast Imaging Start: 06-01-2022 End: 06-01-[address] Naheed Kam Work Phone: [facility] Start: 05-31-2022 End: 05-31-[address] Naheed Kam Work Phone: [facility] Start: 05-14-2022 End: 05-14-[address] Naheed Kam Work Phone: [facility] Start: 05-14-[address] [facility] cunningham [facility] Start: 02-10-2022 End: 02-10-[address] [facility] Start: 02-10-2022 End: 02-10-[address] Naheed Kam Work Phone: [facility] Start: 02-02-2022 End: 02-02-[address] Naheed Kam Work Phone: [facility]-Ultrasound, [facility] Start: 01-29-2022 End: 01-29-[address] [facility] Start: 01-20-2022 End: 01-20-[address] Naheed Kam Work Phone: [facility] Procedures Date Procedure Procedure Detail Performing Clinician Start: 01-07-2025 X-ray of chest, PA a nd lateral views Stephanie PARKS Work Phone: Start: 09-21-2024 Hepatitis B core ant ibody measurement, IgM type Stephanie PARKS Work Phone: Comment on above: Performed at: [address] [id number] Director: Gil Alves PhD, Phone: [phone] Start: 09-21-2024 Hepatitis B surface antigen measurement Stephanie Kramer ACCOUNTING [employer]ERKS SUPERVISOR-C Work Phone: Start: 09-21-2024 Hepatitis C antibody measurement Stephanie Kramer ACCOUNTING [employer]ERKS SUPERVISOR-C Work Phone: Comment on above: Non Reactive: < 0.8 Equivocal: >/= 0.8 to < 1.0 Reactive: >/= 1.0The CDC requires that a reactive/equivocal HCV antibody result be sent out for confirmation. HCV Quant by PCR testing. Start: 06-28-2023 Screening mammography N P-C Stephanie Kramer ACCOUNTING CLERKS SUPERVISOR Work Phone: Start: 06-02-2023 Computed tomography of abdomen and pelvis with contrast ACCOUNTING [employer]ERKS SUPERVISOR-C Stephanie Kramer ACCOUNTING CLERKS SUPERVISOR Work Phone: Start: 05-31-2023 CT of abdomen ACCOUNTING CLERKS SUPERVISOR-C Kezia Kramer ACCOUNTING CLERKS SUPERVISOR Work Phone: Start: 08-23-2022 Biopsy/Inj or Needle Placement Dr. Naheed Kam Work Phone: Start: 08-23-2022 Computed tomography of abdomen and pelvis with intravenous contrast Dr. Naheed Kam Work Phone: Start: 08-13-2022 US scan of gallbladder Dr. Naheed Kam Work Phone: Start: 08-13-2022 Computed tomography of abdomen and pelvis with intravenous contrast Dr. Naheed Kam Work Phone: Start: 08-12-[address] Chel Kam Work Phone: Start: 08-10-2022 Hysterectomy Hysterectomy VERONICA Castellano WELL DRILLER HELPER-PULP GRINDER Start: 08-10-[address] Sterling Kam Work Phone: Start: 08-05-2022 Hysterectomy VERONICA Castellano WELL DRILLER HELPER-PULP GRINDER Comment on above: for AUB c/b postop abscess Start: 06-18-2022 Bilateral mammography Jodie Kam Work Phone: Start: 06-18-[address] Naheed Kam Work Phone: Start: 02-02-[address] Naheed Kam Work Phone: Start: 06-30-2017 End: 07-04-2017 Herpes simplex virus 1+2 IgG Ab [Units/volume] in Serum Cindy Vivas ACCOUNTING [employer]ERKS SUPERVISOR Work Phone: Start: 06-29-2017 End: 06-29-2017 Urnls dip stick/tablet rgnt non-auto w/o micrscp Cindy Vivas ACCOUNTING CLERKS SUPERVISOR Work Phone: Start: 06-16-2017 End: 06-16-2017 Appl modality 1/> areas elec stimj unattended Elsie Cardenas Dossi DC Work Phone: Start: 06-16-2017 End: 06-16-2017 Chiropractic manipulative tx spinal 1-2 regions Elsie Cardenas Dossi DC Work Phone: Start: 05-06-2017 End: 05-06-2017 Heterophile antibodies screen Luis Armando POON Work Phone: Start: 05-06-2017 End: 05-06-2017 Urine test visual color cmprsn meths Luis Armando POON Work Phone: Start: 05-06-2017 End: 05-06-2017 Urnls dip stick/tablet rgnt non-auto w/o micrscp Luis Armando POON Work Phone: Start: 03-11-2016 End: 03-12-2016 *CBC with Differential Aime Paulino Work Phone: Start: 03-11-2016 End: 03-19-2016 Borrelia burgdorferi Ab [interpretation] in Serum Aime Dorado DO Work Phone: Start: 03-11-2016 End: 03-15-2016 C reactive protein [Mass/volume] in Serum or Plasma by High sensitivity method Aime Dorado DO Work Phone: Start: 03-11-2016 End: 03-12-2016 Erythrocyte sedimentation rate Aime Dorado DO Work Phone: Start: 03-11-2016 End: 03-12-2016 Heterophile Ab [Presence] in Serum Aime Dorado DO Work Phone: Start: 08-21-2015 End: 12-02-2015 Choriogonadotropin ( test) [Presence] in Serum or Plasma Naheed Kam, DO Work Phone: Start: 08-21-2015 End: 12-02-2015 Us pelvic nonobstetric real-time image complete Naheed Kam, DO Work Phone: Start: 09-27-2014 End: 09-27-2014 *B12FO Vitamin B12 and Folates Naheed Kam, DO Work Phone: Start: 09-27-2014 End: 09-27-2014 *CBC with Differential Naheed Kam, DO Work Phone: Start: 09-27-2014 End: 10-01-2014 *CELIAC Celiac Disease AB [id number] Naheed Kam, DO Work Phone: Start: 09-27-2014 End: 09-27-2014 *CMP Complete Metabolic Panel Naheed Kam, DO Work Phone: Start: 09-27-2014 End: 09-27-2014 C reactive protein [Mass/volume] in Serum or Plasma by High sensitivity method Naheed Kam, DO Work Phone: Start: 09-27-2014 End: 12-02-2015 Ct abdomen & pelvis w/contrast material Naheed Kam, DO Work Phone: Start: 09-27-2014 End: 12-02-2015 Ct abdomen w/o contrast material Naheed Kam, DO Work Phone: Start: 09-27-2014 End: 09-27-2014 Erythrocyte sedimentation rate Naheed Kam DO Work Phone: Start: 09-27-2014 End: 09-27-2014 Thyrotropin [Units/volume] in Serum or Plasma Naheed Kam DO Work Phone: Start: 08-22-2014 End: 09-02-2014 *PAPIG6 Cytopath, Cerv/Vag, Fluid Auto Redo Naheed Kam DO Work Phone: Start: 08-22-2014 End: 09-02-2014 Urnls dip stick/tablet rgnt non-auto w/o micrscp Naheed Kam DO Work Phone: Anaerobic microbial culture Dr. Naheed Kam Work Phone: Cytopathology proced ure, preparation of smear, genital source Dr. Naheed Kam Work Phone: H/O: hysterectomy Status post hysterectomy Dr. Naheed Kam Work Phone: Comment on above: LAV[facility] H/O: hysterectomy History of hysterectomy Dr. Naheed Kam Work Phone: Investigation of tra nsfusion reaction Dr. Naheed Kam Work Phone: Microbial culture, routine D rSterling Kam Work Phone: Urine culture Dr. Naheed Kam Work Phone: Plan of Treatment Date Care Activity Detail Author Start: 10-31-2023 [facility] Start: 08-26-2022 Patient discharge [place] [facility] Work Phone: Start: 08-26-2022 Catheterization of vein [facility] Work Phone: Start: 08-25-2022 [facility] Work Phone: Start: 08-23-2022 Ambulation without limitation [facility] Work Phone: Start: 08-23-2022 Measuring intake and output [facility] Work Phone: Start: 08-23-2022 Admission procedure [facility] Work Phone: Start: 08-23-2022 Following clinical pathway protocol [facility] Work Phone: Start: 08-23-2022 Admission procedure [facility] Work Phone: Start: 08-23-2022 [facility] Work Phone: Start: 08-23-2022 Consultation [facility] Work Phone: Start: 08-23-2022 Catheterization of vein [facility] Work Phone: Start: 08-23-2022 Oxygen therapy [facility] Work Phone: Start: 08-23-2022 Vital signs measurements [place] Work Phone: Start: 08-23-2022 Source specific culture [facility] Work Phone: Start: 08-23-2022 Patient referral to dietitian [facility] Work Phone: Start: 08-12-2022 Patient discharge [facility] Work Phone: Start: 08-12-2022 Removal of urinary catheter [facility] Work Phone: Start: 08-11-2022 Introduction of urinary catheter [facility] Work Phone: Start: 08-10-2022 Following clinical pathway protocol [facility] Work Phone: Start: 08-10-2022 Admission procedure [facility] Work Phone: Start: 08-10-2022 Ambulation therapy management [facility] Work Phone: Start: 08-10-2022 Continuous pulse oximetry [facility] Work Phone: Start: 08-10-2022 Elevation of head of bed [place] Work Phone: Start: 08-10-2022 Incentive spirometry [facility] Work Phone: Start: 08-10-2022 Measuring intake and output [facility] Work Phone: Start: 08-10-2022 Notification of physician [facility] Work Phone: Start: 08-10-2022 Oxygen therapy [facility] Work Phone: Start: 08-10-2022 Patient education [facility] Work Phone: Start: 08-10-2022 Procedures relating to eating and drinking [facility] Work Phone: Start: 08-10-2022 Taking patient vital signs [facility] Work Phone: Start: 08-10-2022 [facility] Work Phone: Start: 08-10-2022 Introduction of urinary catheter [facility] Work Phone: Start: 08-10-2022 Admission procedure [facility] Work Phone: Start: 08-10-2022 Anesthesia vaginal hysterectomy incl biopsy ANESTH VAGINAL HYSTERECTOMY [facility] Work Phone: Start: 08-10-2022 Iv infusion ther proph addl sequential to 1 hr TX/PROPH/DG ADDL SEQ IV INF [facility] Work Phone: Start: 08-10-2022 Laps w/vag hysterect 250 gm/&rmvl tube&/ovaries LAPARO-VAG HYST INCL T/O [facility] Work Phone: Start: 06-30-2017 End: 07-04-2017 Herpes simplex virus 1+2 IgG Ab [Units/volume] in Serum *HS12G Herpes Simplex Antibody [facility] Start: 06-29-2017 End: 06-29-2017 *CUUID - Urine NAKIA Culture - Identificatn *CUUID - Urine NAKIA Culture - Identificatn [facility] Start: 06-29-2017 End: 06-29-2017 Bacteria genital culture *CUV - Culture, VAG/CX Comprehensive [facility] Start: 06-16-2017 End: 06-16-2017 Follow up Appt 2x/week Follow up Appt 2x/week [facility] Start: 05-06-2017 End: 05-06-2017 Referral to physician Follow Up with Primary Care Physician [facility] Start: 05-06-2017 End: 05-06-2017 Urinalysis complete panel - Urine *UAC- Urinalysis, Complete w/ Micro [facility] Start: 03-11-2016 End: 03-12-2016 *CBC with Differential *CBC with Differential [facility] Start: 03-11-2016 End: 03-19-2016 Borrelia burgdorferi Ab [interpretation] in Serum *LYMS Lyme Screen w/Reflx WB [id number] [facility] Start: 03-11-2016 End: 03-15-2016 C reactive protein (hsCRP) *CRP - C-Reative Protein [facility] Start: 03-11-2016 End: 03-12-2016 Erythrocyte sedimentation rate *Sedimentation Rate (ESR) [facility] Start: 03-11-2016 End: 03-12-2016 Heterophile antibody presence *Infectious Baker Screen [facility] Start: 08-21-2015 End: 12-02-2015 HCG ( test) Ql *PREGS - Qualitative, Serum [facility] Start: 08-21-2015 End: 12-02-2015 Us pelvic nonobstetric real-time image complete US Pelvis [facility] Start: 09-27-2014 End: 09-27-2014 *B12FO Vitamin B12 and Folates *B12FO Vitamin B12 and Folates [facility] Start: 09-27-2014 End: 09-27-2014 *CBC with Differential *CBC with Differential [facility] Start: 09-27-2014 End: 10-01-2014 *CELIAC Celiac Disease AB [id number] *CELIAC Celiac Disease AB [id number] [facility] Start: 09-27-2014 End: 09-27-2014 *CMP Complete Metabolic Panel *CMP Complete Metabolic Panel [facility] Start: 09-27-2014 End: 09-27-2014 C reactive protein (hsCRP) *CRP - C-Reative Protein [facility] Start: 09-27-2014 End: 12-02-2015 Ct abdomen & pelvis w/contrast material CT Abdomen/pelvis with contrast [facility] Start: 09-27-2014 End: 12-02-2015 Ct abdomen w/o contrast material CT Abdomen [facility] Start: 09-27-2014 End: 09-27-2014 Erythrocyte sedimentation rate *Sedimentation Rate (ESR) [facility] Start: 09-27-2014 End: 09-27-2014 Thyroid stimulating hormone (TSH) *TSH [facility] Start: 08-22-2014 End: 09-02-2014 *PAPIG6 Cytopath, Cerv/Vag, Fluid Auto Redo *PAPIG6 Cytopath, Cerv/Vag, Fluid Auto Redo [facility] Start: 08-22-2014 End: 09-02-2014 Urnls dip stick/tablet rgnt non-auto w/o micrscp UA Dipstick (Office) [facility] Anaerobic Culture Anaerobic Culture [facility] Work Phone: Anaerobic microbial culture Anaerobic Culture [facility] Work Phone: Bacteria identified in Unspecified specimen by Anaerobe culture [facility] Work Phone: Bacteria identified in Wound by Culture [facility] Work Phone: Chiropractic manipulation [facility] Genital Culture Genital Culture [facility] Work Phone: Microscopic observat ion [Identifier] in Unspecified specimen by Gram stain Gram Stain [facility] Work Phone: Patient Education [facility] Patient referral [facility] Work Phone: Wound Culture Wound Culture [facility] Work Phone: Immunizations Immunization Date Immunization Notes Care Provider Gail vega 07-11-2023 influenza virus vaccine, unspecified formulation VERONICA FRANCO WELL DRILLER HELPER-PULP GRINDER [facility] 07-11-2023 influenza, injectabl e, quadrivalent, preservative free [employer]ER[employer] SUPERVISOR-C Stephanie Kramer ACCOUNTING CLERKS SUPERVISOR Work Phone: [facility] 07-21-2022 influenza, injectabl e, quadrivalent, preservative free [employer]OUNT[employer]ERKS SUPERVISOR-C Stephanie Kramer ACCOUNTING CLERKS SUPERVISOR Work Phone: [facility] 07-21-2022 influenza, seasonal, injectable Dr. Naheed Kam Work Phone: [facility] 06-17-2021 influenza, injectabl e, quadrivalent, preservative free ACCOUNTING [employer]ERKS SUPERVISOR-C Stephanie Kramer ACCOUNTING CLERKS SUPERVISOR Work Phone: [facility] 06-17-2021 influenza, seasonal, injectable Dr. Naheed Kam Work Phone: [facility] 06-23-2020 influenza, injectabl e, quadrivalent, preservative free ACCOUNTING [employer]ERKS SUPERVISOR-C Stephanie Kramer ACCOUNTING CLERKS SUPERVISOR Work Phone: [facility] 06-23-2020 influenza, seasonal, injectable Dr. Naheed Kam Work Phone: [facility] 07-30-2019 influenza, injectabl e, quadrivalent, preservative free ACCOUNTING [employer]ERKS SUPERVISOR-C Stephanie Kramer ACCOUNTING CLERKS SUPERVISOR Work Phone: [facility] 07-30-2019 influenza, seasonal, injectable Dr. Naheed Kam Work Phone: [facility] 10-11-2018 diphtheria, tetanus toxoids and acellular pertussis vaccine, unspecified formulation Dr. Naheed Kam Work Phone: [facility] Work Phone: 10-11-2018 tetanus toxoid, reduced diphtheria toxoid, and acellular pertussis vaccine, adsorbed Dr. Naheed Kam Work Phone: [facility] 07-20-2018 influenza, injectabl e, quadrivalent, preservative free ACCOUNTING [employer]ERKS SUPERVISOR-C Stephanie Kramer ACCOUNTING CLERKS SUPERVISOR Work Phone: [facility] 07-20-2018 influenza, seasonal, injectable Dr. Naheed Kam Work Phone: [facility] 06-19-2017 influenza, injectabl e, quadrivalent, preservative free ACCOUNTING CLERKS SUPERVISOR-C Stephanie Kramer ACCOUNTING CLERKS SUPERVISOR Work Phone: [facility] 06-19-2017 influenza, seasonal, injectable Dr. Naheed Kam Work Phone: [facility] 06-04-2002 hepatitis B pediatri c vaccine VERONICA FRANCO WELL DRILLER HELPER-P[employer]P GRINDER [facility] 04-20-2002 hepatitis B pediatri c vaccine VERONICA FRANCO WELL DRILLER HELPER-[facility] 04-20-2002 measles/mumps/rubell a virus vaccine VERONICA FRANCO WELL DRILLER HELPER-P[employer]P GRINDER [facility] 10-31-1990 hepatitis B pediatri c vaccine VERONICA FRANCO WELL DRILLER HELPER-P[employer]P GRINDER [facility] 10-31-1990 measles/mumps/rubell a virus vaccine VERONICA FRANCO WELL DRILLER HELPER-P[employer]P GRINDER [facility] Payers Date Payer Category Payer Unknown [id number] 2024 Self-pay [id number] 2024 Unknown [id number] 2017 Unknown [id number] 1989 Unknown [id number] 10.21. [id number] 1989 Unknown [id number] Unknown [facility] PACKAGE PLAN [id number] Unknown [id number] 2.16.8 40.1.792654.3.579.2.462 Unknown [id number] 2.16.8 40.1.253573.3.579.2.462 Unknown [id number] 2.16.8 40.1.899288.3.579.2.462 Unknown [id number] 2.16.8 40.1.127735.3.579.2.462 Unknown [id number] 2.16.8 40.1.139312.3.579.2.462 Unknown [id number] 2.16.8 40.1.165433.3.579.2.462 Unknown [id number] 2.16.8 40.1.980093.3.579.2.462 Unknown [id number] 2.16.8 40.1.181304.3.579.2.462 Unknown [id number] 2.16.8 40.1.638862.3.579.2.462 Unknown [id number] 2.16.8 40.1.888484.3.579.2.462 Unknown [id number] 2.16.8 40.1.721855.3.579.2.462 Unknown [id number] 2.16.8 40.1.188433.3.579.2.462 Unknown [id number] 2.16.8 40.1.677076.3.579.2.462 Unknown [id number] 2.16.8 40.1.764556.3.579.2.462 Unknown [id number] 2.16.8 40.1.762105.3.579.2.462 Unknown [id number] 2.16.8 40.1.653078.3.579.2.462 Unknown [id number] 2.16.8 40.1.351362.3.579.2.462 Unknown [id number] 2.16.8 40.1.902602.3.579.2.462 Unknown [id number] 2.16.8 40.1.884683.3.579.2.462 Unknown [id number] 2.16.8 40.1.332016.3.579.2.462 Unknown [id number] 2.16.8 40.1.648714.3.579.2.462 Unknown [id number] 2.16.8 40.1.844208.3.579.2.462 Unknown [id number] 2.16.8 40.1.810115.3.579.2.462 Unknown [id number] 2.16.8 40.1.176687.3.579.2.462 Social History Date Type Detail Facility Start: 01-20-2022 End: 11-02-2023 Tobacco smoking status NHIS Unknown if ever smoked [facility] Start: 11-03-2020 None [facility] Start: 11-03-2020 Spouse/ Signif icant Other [facility] Start: 1990 Sex Assigned At Female W [facility] Start: 10-11-2017 Non-smoker [facility] Start: 01-10-2023 End: 02-19-2025 Tobacco smoking status Never smoked tobacco (finding) [facility] Sex Assigned At [facility] Sex Female (finding) [facility] Medical Equipment Procedure Code Equipment Code Equipment Origin al Text Equipment Identifier Dates Laparoscopy with vaginal hysterectomy DRESSING,FIBRILLAR 1X2 1960 FDA Start: 08-10-2022 Laparoscopy with vaginal hysterectomy SURGICEL, POWDER 3GR FDA Start: 08-10-2022 Laparoscopy with vaginal hysterectomy DRESSING,FIBRILLAR 1X2 1960 FDA Start: 08-10-2022 Laparoscopy with vaginal hysterectomy SURGICEL, POWDER 3GR FDA Start: 08-10-2022 Laparoscopy with vaginal hysterectomy DRESSING,FIBRILLAR 1X2 1960 FDA Start: 08-10-2022 Laparoscopy with vaginal hysterectomy SURGICEL, POWDER 3GR FDA Start: 08-10-2022 Laparoscopy with vaginal hysterectomy DRESSING,FIBRILLAR 1X2 1960 FDA Start: 08-10-2022 Laparoscopy with vaginal hysterectomy SURGICEL, POWDER 3GR FDA Start: 08-10-2022 Laparoscopy with vaginal hysterectomy DRESSING,FIBRILLAR 1X2 1960 FDA Start: 08-10-2022 Laparoscopy with vaginal hysterectomy SURGICEL, POWDER 3GR FDA Start: 08-10-2022 Laparoscopy with vaginal hysterectomy DRESSING,FIBRILLAR 1X2 1961 FDA Start: 08-10-2022 Laparoscopy with vaginal hysterectomy SURGICEL, POWDER 3GR FDA Start: 08-10-2022 Laparoscopy with vaginal hysterectomy DRESSING,FIBRILLAR 1X2 1961 FDA Start: 08-10-2022 Laparoscopy with vaginal hysterectomy SURGICEL, POWDER 3GR FDA Start: 08-10-2022 Laparoscopy with vaginal hysterectomy DRESSING,FIBRILLAR 1X2 1961 FDA Start: 08-10-2022 Laparoscopy with vaginal hysterectomy SURGICEL, POWDER 3GR FDA Start: 08-10-2022 Laparoscopy with vaginal hysterectomy DRESSING,FIBRILLAR 1X2 1961 FDA Start: 08-10-2022 Laparoscopy with vaginal hysterectomy SURGICEL, POWDER 3GR FDA Start: 08-10-2022 Laparoscopy with vaginal hysterectomy DRESSING,FIBRILLAR 1X2 1961 FDA Start: 08-10-2022 Laparoscopy with vaginal hysterectomy SURGICEL, POWDER 3GR FDA Start: 08-10-2022 Laparoscopy with vaginal hysterectomy DRESSING,FIBRILLAR 1X2 1961 FDA Start: 08-10-2022 Laparoscopy with vaginal hysterectomy SURGICEL, POWDER 3GR FDA Start: 08-10-2022 Laparoscopy with vaginal hysterectomy DRESSING,FIBRILLAR 1X2 1961 FDA Start: 08-10-2022 Laparoscopy with vaginal hysterectomy SURGICEL, POWDER 3GR FDA Start: 08-10-2022 Laparoscopy with vaginal hysterectomy DRESSING,FIBRILLAR 1X2 1961 FDA Start: 08-10-2022 Laparoscopy with vaginal hysterectomy SURGICEL, POWDER 3GR FDA Start: 08-10-2022 Laparoscopy with vaginal hysterectomy DRESSING,FIBRILLAR 1X2 1961 FDA Start: 08-10-2022 Laparoscopy with vaginal hysterectomy SURGICEL, POWDER 3GR FDA Start: 08-10-2022 Laparoscopy with vaginal hysterectomy DRESSING,FIBRILLAR 1X2 1961 FDA Start: 08-10-2022 Laparoscopy with vaginal hysterectomy SURGICEL, POWDER 3GR FDA Start: 08-10-2022 Laparoscopy with vaginal hysterectomy DRESSING,FIBRILLAR 1X2 1961 FDA Start: 08-10-2022 Laparoscopy with vaginal hysterectomy SURGICEL, POWDER 3GR FDA Start: 08-10-2022 AZALEA 3GRM HEMOSTAT ABS FDA Start: 10-06-2017 AZALEA 3GRM HEMOSTAT ABS FDA Start: 10-06-2017 AZALEA 3GRM HEMOSTAT ABS FDA Start: 10-06-2017 AZALEA 3GRM HEMOSTAT ABS FDA Start: 10-06-2017 AZALEA 3GRM HEMOSTAT ABS FDA Start: 10-06-2017 AZALEA 3GRM HEMOSTAT ABS FDA Start: 10-06-2017 AZALEA 3GRM HEMOSTAT ABS FDA Start: 10-06-2017 AZALEA 3GRM HEMOSTAT ABS FDA Start: 10-06-2017 AZALEA 3GRM HEMOSTAT ABS FDA Start: 10-06-2017 AZALEA 3GRM HEMOSTAT ABS FDA Start: 10-06-2017 AZALEA 3GRM HEMOSTAT ABS FDA Start: 10-06-2017 AZALEA 3GRM HEMOSTAT ABS FDA Start: 10-06-2017 AZALEA 3GRM HEMOSTAT ABS FDA Start: 10-06-2017 AZALEA 3GRM HEMOSTAT ABS FDA Start: 10-06-2017 AZALEA 3GRM HEMOSTAT ABS FDA Start: 10-06-2017 AZALEA 3GRM HEMOSTAT ABS FDA Start: 10-06-2017 AZALEA 3GRM HEMOSTAT ABS FDA Start: 10-06-2017 AZALEA 3GRM HEMOSTAT ABS FDA Start: 10-06-2017 AZALEA 3GRM HEMOSTAT ABS FDA Start: 10-06-2017 AZALEA 3GRM HEMOSTAT ABS FDA Start: 10-06-2017 Goals Date Patient Goal Desired Activity /State Functional Status Date Assessment Result Facility 08-26-2022 Functional status Ambulates [facility] Work Phone: 08-12-2022 Functional status Ambulates [facility] Work Phone: 08-11-2022 Functional status Chair [facility] Work Phone: Mental Status Date Assessment Result Facility 10-31-2023 Cognitive function Level Of Cons ciousness Awake;Alert;Appropriate;Follow s Commands [facility] Work Phone: 08-26-2022 Cognitive function Voice/Name [facility] Work Phone: 08-23-2022 Cognitive function Awake;Alert;A ppropriate;Follow s Commands [facility] Work Phone: 08-13-2022 Cognitive function Level Of Cons ciousness Awake;Alert;Appropriate;Follow s Commands [facility] Work Phone: 08-12-2022 Cognitive function Voice/Name [facility] Work Phone: 08-11-2022 Cognitive function Level Of Cons ciousness Awake;Alert;Appropriate;Follow s Commands [facility] Work Phone: 08-11-2022 Cognitive function Voice/Name [facility] Work Phone: Clinical Notes 05-25-2024 to 01-07-2025 Note Date & Type Note Facility 01-07-2025 Radiology Diagnostic study note [facility] [address] [place], [place] [address] Chest PA and Lateral MR#: [id number] Acct: [id number] Name: BARBARA QUINTANILLA Rep #: [id number] : 1990 F 34 From: Abhay Cantrell MD PCP: CHARLY Gerard Status: RE G CLI Study:Chest PA and Lateral Date of Exam: 01/07/25 Exam# [id number] Ordering Dr: Stephanie Kramer NP, NP-Orquidea PROCEDURE: CHEST PA AND LATERAL 01/07/2025 REASON FOR EXAM: SOB, RESPIRATOY ILLNESS TECHNIQUE: Frontal and lateral views of the chest. COMPARISON: Chest x-ray of 03/12/2021. RAD/Chest PA and Lateral IMPRESSION: Lungs appear clear throughout. No pleural effusion or pneumothorax is noted. The cardiomediastinal silhouette is within the normal range. Mild degenerative changes of the thoracic spine are seen. No acute osseous changes seen. No evidence of acute cardiopulmonary disease. Reading Location: [place] [address] CC: CHARLY Kramer ~ Bench Machine Operator: Signed [facility] 12-30-2024 Evaluation note Diagnosis Onset Date Resolution Pharyngitis acute December 30, 2 025 11:19am Acute bronchitis acute January 03, 2025 10:48am [facility] Work Phone: 1(137) 963-817104-27-2025 Evaluation note* Diagnosis Onset Date Resolution Status Admit Date Pharyngitis acute December 30, 2 025 11:19am Acute bronchitis acute January 03, 2025 10:48am Segmental and somatic dysfunction of cervical region acute J tony 2024 2:46pm Segmental and somatic dysfunction of lumbar region acute Mar 2:46pm Segmental and somatic dysfunction of thoracic region acute J 2024 2:46pm [address] [facility] Work Phone: 1(999) 526-254104-27-2025 Evaluation note* Diagnosis Onset Date Resolution Status Admit Date Pharyngitis acute December 30, 2 025 11:19am Acute bronchitis acute January 03, 2025 10:48am Segmental and somatic dysfunction of cervical region acute J tony 2024 2:46pm Segmental and somatic dysfunction of lumbar region acute Mar 2:46pm Segmental and somatic dysfunction of thoracic region acute J tony 2024 2:46pm Segmental and somatic dysfunction of cervical region acute J tony 2024 2:44pm Segmental and somatic dysfunction of lumbar region acute Mar 2:44pm Segmental and somatic dysfunction of thoracic region acute J tony 2024 2:44pm [place] [employer] Work Phone: 1(251) 697-702301-17-2025 Note. MICRO - Microbiology PROCEDURE: Affirm Pathogens DNA Direct Probe [*1] SOURCE: Vaginal Fluid BODY SITE: Vagina COLLECTED DATE/TIME: 09/20/2024 16:39 EST RECEIVED DATE/TIME: 09/20/2024 19:34 EST START DATE/TIME: 09/20/2024 19:34 EST FREE TEXT SOURCE: FINAL REPORTS Final Report [] Verified Date/Time/Personnel: 09/21/2024 11:47 EST Trichomonas vaginalis DNA Probe Negative Darlyn species DNA Probe Negative Gardnerella vaginalis DNA Probe Negative Performing Locations *1: This test was performed at: [facility], [address] [place] [address], [id number]- , [facility]10-15-2024 [facility] Medical Records Department [address] [place] [id number] History Physical Exam 06/19/24 1430 MR#: [id number] Acct: [id number] Name: BARBARA QUINTANILLA Rep #: [id number] : 1990 33 From: Igor Friend PCP: Stephanie Kramer NP-C Status:[facility] Location: [place] [address] History and Physical Date of Admission: 06/19/24 BARBARA QUINTANILLA, is a 33 F who presents to the office today for establishment with [facility]. She has a long hx of GI issues that have worsened over the past couple of months. She has diarrhea or softer stools everyday. She is unable to drive from [employer] [place] without stopping to have a bm. She was seeing GI in [place] in 2022 as she wasn't able to get in at our office. She had colonoscopy at that time but no blood work. Her symptoms have become much worse since that colonoscopy. She has had a 15+ lbs weight loss over the past two months as she is afraid to eat. She has noticed that greasy foods and dairy seem to be worse. After having a lot of diarrhea she will have nausea and general malaise. She has increased abdominal bloating and cramping. She has not tried any mediations at this point. Colonoscopy 09.01.23; small lymphoid aggregates, otherwise histologically unremarkable colonic mucosa. No active, chronic or microscopic colitis. No granulomas or dysplasia. CD3 and Trichime stains are negative for lymphocytic and collagenous colitis respectively. ROS Const Constitutional: Positive for fatigue, headache(s) and weight change (weight loss); No fever(s) ENT ENT: Positive for headache(s); No difficulty swallowing Gastro GI: Positive for abdominal pain, bloating, change in bowel habits, diarrhea, heartburn, excessive flatus, Blood in stool and nausea/dyspepsia; No belching, change in stool character, coffee ground emesis, constipation, cramping, difficulty swallowing, feeling full early, incontinent of stools, Vomiting blood/hematemesis, loose stools, Black,tarry stools, pain with swallowing, vomiting or other Musc Musculoskeletal: Positive for back pain and muscle weakness; No joint pain Skin Skin: No yellowing of the eye or itchy eyes Neuro Neurology: Positive for headache(s) Psych Psychiatric: Positive for anxiety and No depression Endo Endocrine: Positive for fatigue and weight change (weight loss) Aller/Imm Allergy/Immunologic: No itchy eyes Ganga/Lymp Hematologic/Lymphatic: No easy bleeding or easy bruising Exam Const General: cooperative and comfortable Nutritional Appearance: average body habitus and well nourished [facility] Head: normal to inspection Ears: hearing grossly normal bilaterally Nose: external nose normal Face and sinus: normal facial exam Eyes General: appearance normal, both eyes and all related structures Neck Neck: normal visual inspection Chest Chest palpation inspection: normal inspection of the chest Resp Effort Inspection: normal respiratory effort Cardio Palpation: normal PMI GI Inspection: normal to inspection Palpation: no hepatosplenomegaly Skin General: no rashes or lesions noted Neuro General: patient alert Extrem General: normal to inspection Psych Affect: normal affect Assessment and Plan Assessment and Plan (1) Irritable bowel syndrome: Plan: Patient is here today to establish with [facility]. She has long history of GI symptoms which have been worsening over time. She now has daily diarrhea, soft stools and urgency. She had a colonoscopy in 2022 that was without pertinent abnormality. Differential diagnosis includes IBS, IBD, SIBO or EPI. -Patient has never had blood work for IBD; will order IBD panel, celiac panel, food allergen, ANCA, LEXIS, ESR, CRP -Will order stool testing; calprotectin, lactoferrin, fecal elastase, enteric pathogen, c.dif, ova and parasites, Giardia -Recommended she start taking fiber supplement daily to decrease diarrhea. She will call the office if this is not helpful and we can put her on a prescription such as colestipol. -Prescribed her with dicyclomine 10 mg to take as needed for abdominal cramping associated with diarrhea -Since her last colonoscopy was in 2022 we will consider ordering another pending blood work and stool test results Orders: Orders Allergen, Food Profile 14 Today R19.7 - Diarrhea, unspecified LEXIS Comprehensive Panel Today R19.7 - Diarrhea, unspecified ANCA Today R19.7 - Diarrhea, unspecified Calprotectin, Stool Today R19.7 - Diarrhea, unspecified CBC W/Diff, Automated Today R19.7 - Diarrhea, unspecified CDIFF (PCR) Today R19.7 - Diarrhea, unspecified Celiac Disease Profile Today R19.7 - Diarrhea, unspecified IBD Expanded Profile Today R19.7 - Diarrhea, unspecified Giardia Lamblia, Stool EIA Today R19.7 - Diarrhea, unspecified Erythrocyte Sed Rate Today R19.7 - Diarrhea, unspecified ENTERIC PATHOGEN PANE (more content not included)...[facility] 05-25-2024 Evaluation + Plan note Future Scheduled Tests Laboratory* Basic Metabolic Panel 05/25/24 * Folate Level 08/08/24 * Hepatitis B Surface Antigen 09/20/24 * Luteinizing Hormone 08/08/24 * Magnesium Level 08/08/24 * Rapid Plasma Reagin Test 09/20/24 * Urinalysis w/ C&S if Indicated 05/30/24 * Thyroid Stimulating Hormone 05/23/24 * Vitamin B12 Level 08/08/24 * Anti-Mullerian Hormone (AMH) 08/08/24 * Stool Gastrointestinal Panel 05/30/24 * Complete Blood Count 08/08/24 * Complete Blood Count 05/23/24 * Follicle Stimulating Hormone Level 08/08/24 * Lipid Profile 06/14/24 * Hepatitis B Core Antibody IgM 09/20/24 * Hepatitis C Antibody IgG 09/20/24 * HIV 1/2 Ab 09/20/24 * Vitamin D Level 06/14/24 * Complete Metabolic Panel 08/08/24 * Complete Metabolic Panel 05/23/24 Radiology* MA Mammo Screening Bilateral w/ Sivakumar 06/14/24 * CT Head or Brain w/o Contrast 08/08/24 * MRI Brain w/ + w/o Contrast 08/08/24 * US Abdomen Complete 05/30/24 [facility] Chief complaint+Reason for visit Narrative* Chief Complaint EMPLOYEE HEALTH 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 COVID-19 ringing in ears/dizzy/scratchy throat COVID TEST/[facility] EMPLOYEE L BREAST MASS, BREAST PAIN Reason for Visit Menorrhagia with irr egular cycle Acute upper respiratory infection Contact with or suspected exposure to other viral communicable disease Dysfunction of left eustachian tube [facility] Work Phone: Chief complaint+Reason for visit Narrative* Chief Complaint EMPLOYEE HEALTH 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 COVID-19 ringing in ears/dizzy/scratchy throat COVID TEST/[facility] EMPLOYEE L BREAST MASS, BREAST PAIN reeval back pain BREAST 6 M F/U Back pain Back pain LAVH possible cystoscopy LAVH, POSS CYSTO LAVH, POSS CYSTO LAVH, POSS CYSTO Reason for Visit Menorrhagia with irr egular cycle Acute upper respiratory infection Contact with or suspected exposure to other viral communicable disease Dysfunction of left eustachian tube Costochondral chest pain Segmental and somatic dysfunction of cervical region Segmental and somatic dysfunction of lumbar region Segmental and somatic dysfunction of thoracic region History of abnormal mammogram Costochondral chest pain Segmental and somatic dysfunction of cervical region Segmental and somatic dysfunction of lumbar region Segmental and somatic dysfunction of thoracic region Back pain Costochondral chest pain Segmental and somatic dysfunction of cervical region Segmental and somatic dysfunction of lumbar region Segmental and somatic dysfunction of thoracic region Back pain Menorrhagia with irregular cycle Status post hysterectomy [facility] Work Phone: Chief complaint+Reason for visit Narrative* Chief Complaint EMPLOYEE HE[employer] 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 COVID-19 ringing in ears/dizzy/scratchy throat COVID TEST/[facility] EMPLOYEE L BREAST MASS, BREAST PAIN reeval back pain BREAST 6 M F/U Back pain Back pain [facility] possible cystoscopy [facility], POSS CYSTO LAVH, POSS CYSTO LAVH, POSS CYSTO LAVH, POSS CYSTO Reason for Visit Menorrhagia with irr egular cycle Acute upper respiratory infection Contact with or suspected exposure to other viral communicable disease Dysfunction of left eustachian tube Costochondral chest pain Segmental and somatic dysfunction of cervical region Segmental and somatic dysfunction of lumbar region Segmental and somatic dysfunction of thoracic region History of abnormal mammogram Costochondral chest pain Segmental and somatic dysfunction of cervical region Segmental and somatic dysfunction of lumbar region Segmental and somatic dysfunction of thoracic region Back pain Costochondral chest pain Segmental and somatic dysfunction of cervical region Segmental and somatic dysfunction of lumbar region Segmental and somatic dysfunction of thoracic region Back pain Menorrhagia with irregular cycle Status post hysterectomy [facility] Work Phone: Chief complaint+Reason for visit Narrative* Chief Complaint EMPLOYEE HE[employer] 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 COVID-19 ringing in ears/dizzy/scratchy throat COVID TEST/[facility] EMPLOYEE L BREAST MASS, BREAST PAIN reeval back pain BREAST 6 M F/U Back pain Back pain L[facility] possible cystoscopy [facility]AV[facility], POSS CYSTO LAVH, POSS CYSTO LAVH, POSS CYSTO LAVH, POSS CYSTO PAIN INT LABS FU pain/surgery ABD PAIN ABD PAIN Reason for Visit Menorrhagia with irr egular cycle Acute upper respiratory infection Contact with or suspected exposure to other viral communicable disease Dysfunction of left eustachian tube Costochondral chest pain Segmental and somatic dysfunction of cervical region Segmental and somatic dysfunction of lumbar region Segmental and somatic dysfunction of thoracic region History of abnormal mammogram Costochondral chest pain Segmental and somatic dysfunction of cervical region Segmental and somatic dysfunction of lumbar region Segmental and somatic dysfunction of thoracic region Back pain Costochondral chest pain Segmental and somatic dysfunction of cervical region Segmental and somatic dysfunction of lumbar region Segmental and somatic dysfunction of thoracic region Back pain Menorrhagia with irregular cycle Elevated white blood cell count Postoperative pain Elevated white blood cell count History of hysterectomy Postoperative abscess Postoperative pain [facility] Work Phone: Chief complaint+Reason for visit Narrative* Chief Complaint 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[employer] 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 COVID-19 ringing in ears/dizzy/scratchy throat COVID TEST/[facility] EMPLOYEE L BREAST MASS, BREAST PAIN reeval back pain BREAST 6 M F/U Back pain Back pain [facility] possible cystoscopy [facility], POSS CYSTO LAV[facility], POSS CYSTO [facility]AV[facility], POSS CYSTO LAVH, POSS CYSTO PAIN INT LABS FU pain/surgery ABD PAIN PELVIC ABSCESS PELVIC ABSCESS PELVIC ABSCESS PELVIC ABSCESS Reason for Visit Menorrhagia with irr egular cycle Acute upper respiratory infection Contact with or suspected exposure to other viral communicable disease Dysfunction of left eustachian tube Costochondral chest pain Segmental and somatic dysfunction of cervical region Segmental and somatic dysfunction of lumbar region Segmental and somatic dysfunction of thoracic region History of abnormal mammogram Costochondral chest pain Segmental and somatic dysfunction of cervical region Segmental and somatic dysfunction of lumbar region Segmental and somatic dysfunction of thoracic region Back pain Costochondral chest pain Segmental and somatic dysfunction of cervical region Segmental and somatic dysfunction of lumbar region Segmental and somatic dysfunction of thoracic region Back pain Menorrhagia with irregular cycle Elevated white blood cell count Postoperative pain Elevated white blood cell count History of hysterectomy Postoperative abscess Postoperative pain [facility] Work Phone: Chief complaint+Reason for visit Narrative* Chief Complaint 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 HE[employer] 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 COVID-19 ringing in ears/dizzy/scratchy throat COVID TEST/[facility] EMPLOYEE L BREAST MASS, BREAST PAIN reeval back pain BREAST 6 M F/U Back pain Back pain [facility] possible cystoscopy [facility], POSS CYSTO LAVH, POSS CYSTO LAV[facility], POSS CYSTO LAVH, POSS CYSTO PAIN INT LABS FU pain/surgery ABD PAIN PELVIC ABSCESS PELVIC ABSCESS PELVIC ABSCESS PELVIC ABSCESS VAG BLEED Reason for Visit Menorrhagia with irr egular cycle Acute upper respiratory infection Contact with or suspected exposure to other viral communicable disease Dysfunction of left eustachian tube Costochondral chest pain Segmental and somatic dysfunction of cervical region Segmental and somatic dysfunction of lumbar region Segmental and somatic dysfunction of thoracic region History of abnormal mammogram Costochondral chest pain Segmental and somatic dysfunction of cervical region Segmental and somatic dysfunction of lumbar region Segmental and somatic dysfunction of thoracic region Back pain Costochondral chest pain Segmental and somatic dysfunction of cervical region Segmental and somatic dysfunction of lumbar region Segmental and somatic dysfunction of thoracic region Back pain Menorrhagia with irregular cycle Elevated white blood cell count Postoperative pain Elevated white blood cell count History of hysterectomy Postoperative abscess Postoperative pain [facility] Work Phone: Chief complaint+Reason for visit Narrative* Chief Complaint COVID-19 ringing in ears/dizzy/scratchy throat COVID TEST/[facility] EMPLOYEE L BREAST MASS, BREAST PAIN reeval back pain BREAST 6 M F/U Back pain Back pain L[facility] possible cystoscopy [facility]AV[facility], POSS CYSTO LAVH, POSS CYSTO LAVH, POSS CYSTO LAVH, POSS CYSTO PAIN INT LABS FU pain/surgery ABD PAIN PELVIC ABSCESS PELVIC ABSCESS PELVIC ABSCESS PELVIC ABSCESS VAG BLEED ED f/u for excessive bleeding Reason for Visit Acute upper respirat ory infection Contact with or suspected exposure to other viral communicable disease Dysfunction of left eustachian tube Costochondral chest pain Segmental and somatic dysfunction of cervical region Segmental and somatic dysfunction of lumbar region Segmental and somatic dysfunction of thoracic region History of abnormal mammogram Costochondral chest pain Segmental and somatic dysfunction of cervical region Segmental and somatic dysfunction of lumbar region Segmental and somatic dysfunction of thoracic region Back pain Costochondral chest pain Segmental and somatic dysfunction of cervical region Segmental and somatic dysfunction of lumbar region Segmental and somatic dysfunction of thoracic region Back pain Menorrhagia with irregular cycle Elevated white blood cell count Postoperative pain Elevated white blood cell count History of hysterectomy Postoperative pain Postoperative abscess History of hysterectomy Pelvic pain Postoperative pain [facility] Work Phone: Evaluation + Plan note Future Appointments Appointment Date:06/06/2024 09:30:00 AM Scheduled Provider:STEPHANIE KRAMER Location:[facility] Appointment Type: OV Future Scheduled Tests Laboratory* Basic Metabolic Panel 05/25/24 * Thyroid Stimulating Hormone 05/23/24 * Complete Blood Count 05/23/24 * Complete Metabolic Panel 05/23/24 Radiology* MA Mammo Screening Bilateral w/ Sivakumar 06/22/23 * CT Abdomen w/ Contrast 06/01/23 [facility] Evaluation note* Diagnosis Onset Date Resolution Status Acute maxillary sinusitis, unspecified acute [facility] Work Phone: Evaluation note* Diagnosis Onset Date Resolution Status Menorrhagia with irregular cycle acute Ovarian cyst acute [facility] Work Phone: Evaluation note* Diagnosis Onset Date Resolution Status Menorrhagia with irregular cycle acute Acute upper respiratory infection acute Contact with or suspected ex posure to other viral communicable disease acute Dysfunction of left eustachian tube acute [facility] Work Phone: Evaluation note* Diagnosis Onset Date Resolution Status Menorrhagia with irregular cycle acute Acute upper respiratory infection acute Contact with or suspected ex posure to other viral communicable disease acute Dysfunction of left eustachian tube acute Costochondral chest pain acu te Segmental and somatic dysfunction of cervical region acute Segmental and somatic dysfunction of lumbar region acute Segmental and somatic dysfunction of thoracic region acute History of abnormal mammogram acute Costochondral chest pain acu te Segmental and somatic dysfunction of cervical region acute Segmental and somatic dysfunction of lumbar region acute Segmental and somatic dysfunction of thoracic region acute Back pain noneactive Costochondral chest pain acu te Segmental and somatic dysfunction of cervical region acute Segmental and somatic dysfunction of lumbar region acute Segmental and somatic dysfunction of thoracic region acute Back pain noneactive Menorrhagia with irregular cycle acute Status post hysterectomy acu te [facility] Work Phone: Evaluation note* Diagnosis Onset Date Resolution Status Menorrhagia with irregular cycle acute Acute upper respiratory infection acute Contact with or suspected ex posure to other viral communicable disease acute Dysfunction of left eustachian tube acute Costochondral chest pain acu te Segmental and somatic dysfunction of cervical region acute Segmental and somatic dysfunction of lumbar region acute Segmental and somatic dysfunction of thoracic region acute History of abnormal mammogram acute Costochondral chest pain acu te Segmental and somatic dysfunction of cervical region acute Segmental and somatic dysfunction of lumbar region acute Segmental and somatic dysfunction of thoracic region acute Back pain noneactive Costochondral chest pain acu te Segmental and somatic dysfunction of cervical region acute Segmental and somatic dysfunction of lumbar region acute Segmental and somatic dysfunction of thoracic region acute Back pain noneactive Menorrhagia with irregular cycle acute Elevated white blood cell count acute Postoperative pain acute Elevated white blood cell count acute History of hysterectomy acut e Postoperative abscess acute Postoperative pain acute [facility] Work Phone: Evaluation note* Diagnosis Onset Date Resolution Status Acute upper respiratory infection acute Contact with or suspected ex posure to other viral communicable disease acute Dysfunction of left eustachian tube acute Costochondral chest pain acu te Segmental and somatic dysfunction of cervical region acute Segmental and somatic dysfunction of lumbar region acute Segmental and somatic dysfunction of thoracic region acute History of abnormal mammogram acute Costochondral chest pain acu te Segmental and somatic dysfunction of cervical region acute Segmental and somatic dysfunction of lumbar region acute Segmental and somatic dysfunction of thoracic region acute Back pain noneactive Costochondral chest pain acu te Segmental and somatic dysfunction of cervical region acute Segmental and somatic dysfunction of lumbar region acute Segmental and somatic dysfunction of thoracic region acute Back pain noneactive Menorrhagia with irregular cycle acute Elevated white blood cell count acute Postoperative pain acute Elevated white blood cell count acute History of hysterectomy acut e Postoperative pain acute Postoperative abscess resolv ed History of hysterectomy acut e Pelvic pain acute Postoperative pain acute [facility] Work Phone: Evaluation note* Diagnosis Onset Date Resolution Status History of hysterectomy acut e [facility] Work Phone: Evaluation note* Diagnosis Onset Date Resolution Status Acute sinusitis acute Contact with or suspected ex posure to other viral communicable disease acute Acute sinusitis acute [facility] Work Phone: Evaluation noteNo assessment information available [facility] Work Phone: Evaluation note* Diagnosis Onset Date Resolution Status Acute bronchitis acute [facility] Work Phone: Hospital course Narrative No data available for this section [facility] Hospital Discharge instructions No data available for this section [facility] Progress note No data available for this section [facility] Reason for referral (narrative)No reason for [facility] Chief Complaint and Reason for Visit Chief Complaint CONCERN FOR SINUS IN FECTION E-ORDER BLEEDING Reason for Visit Acute maxillary sinu sitis, unspecified Chief Complaint CONCERN FOR SINUS IN FECTION E-ORDER BLEEDING 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) Reason 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 Visit Menorrhagia with irr egular cycle Ovarian cyst Chief Complaint 4 WK fu Reason for Visit History of hysterect dora Chief Complaint EMPLOYEE LABS CONGESTED HEAD CONGESTION/COUGH ABDOMEN PAIN SPLENIC ECHOGENICITY, SPLEEN ANOMALY Reason for Visit Acute sinusitis Contact with or suspected exposure to other viral communicable disease Acute sinusitis Chief Complaint EMPLOYEE LABS CONGESTED HEAD CONGESTION/COUGH ABDOMEN PAIN SPLENIC ECHOGENICITY, SPLEEN ANOMALY SCREENING PELVIC FLOOR RX HERE Reason for Visit Acute sinusitis Contact with or suspected exposure to other viral communicable disease Acute sinusitis Chief Complaint SCREENING PELVIC FLOOR RX HERE Chief Complaint headache COUGH/SORE THROAT Reason for Visit Acute bronchitis Chief Complaint Admit Date SORE THROAT, EAR PAIN December 30, 2024 1 1:19am CONGESTION January 03, 2025 10:48a m EMPLOYEE COVID/ [facility] January 03, 2025 10:57a m SOB AND RESPIRATORY ILLNESS January 07 1:56pm Reason for Visit Admit Date Pharyngitis December 30, 2024 11: 19am Acute bronchitis January 03, 2025 10:48a m Chief Complaint Admit Date SORE THROAT, EAR PAIN December 30, 2024 1 1:19am CONGESTION January 03, 2025 10:48a m EMPLOYEE COVID/ [facility] January 03, 2025 10:57a m SOB AND RESPIRATORY ILLNESS January 07 1:56pm REEVAL March 14, 2025 2:46 pm Reason for Visit Admit Date Pharyngitis December 30, 2024 11: 19am Acute bronchitis January 03, 2025 10:48a m Segmental and somatic dysfunction of cer vical region March 14, 2025 2:46pm Segmental and somatic dysfunction of lum bar region March 14, 2025 2:46pm Segmental and somatic dysfunction of tho racic region March 14, 2025 2:46pm Chief Complaint Admit Date SORE THROAT, EAR PAIN December 30, 2024 1 1:19am CONGESTION January 03, 2025 10:48a m EMPLOYEE COVID/ [facility] January 03, 2025 10:57a m SOB AND RESPIRATORY ILLNESS January 07 1:56pm REEVAL March 14, 2025 2:46 pm BACK PAIN April 04, 2025 2:44 pm Reason for Visit Admit Date Pharyngitis December 30, 2024 11: 19am Acute bronchitis January 03, 2025 10:48a m Segmental and somatic dysfunction of cer vical region March 14, 2025 2:46pm Segmental and somatic dysfunction of lum bar region March 14, 2025 2:46pm Segmental and somatic dysfunction of tho racic region March 14, 2025 2:46pm Segmental and somatic dysfunction of cer vical region April 04, 2025 2:44pm Segmental and somatic dysfunction of lum bar region April 04, 2025 2:44pm Segmental and somatic dysfunction of tho racic region April 04, 2025 2:44pm Family History No Family History Records Found Relationship Condition Age at Onset Recorded Date/T brian father Diabetes mellitus Unknown Hypertension Unknown mother Hypertension Unknown Advance Directives No Advanced Directives Records Found Advance Directive Response Recorded Date/ Time Living Will No July 01 10:08am Power of Paint Dipper No July 01, 2021 10:08am Advance Directive Response Recorded Date/ Time Living Will No August 10 6:21pm Power of Paint Dipper No August 10, 2022 6:21pm Advance Directive Response Recorded Date/ Time Living Will No August 23, 2 022 4:52pm Power of Paint Dipper No August 23, 2022 4:52pm Advance Directive Response Recorded Date/ Time Living Will No August 29, 2 022 11:39pm Power of Paint Dipper No August 29, 2022 11:39pm Advance Directive Response Recorded Date/ Time Living Will No January 17, 2023 1 0:10am Power of Paint Dipper No January 17, 2023 10:10am Advance Directive Response Recorded Date/ Time Living Will No January 19, 2023 3 :04pm Power of Paint Dipper No January 19, 2023 3:04pm Advance Directive Response Recorded Date/ Time Living Will No January 19, 2023 2 :04pm Power of Paint Dipper No January 19, 2023 2:04pm Advance Directive Response Recorded Date/ Time Living Will No October 31, 2 024 11:22am Power of Paint Dipper No October 31, 2023 11:22am Summary Purpose Additional Source Comments Care Teams (unrecognized sec tion and content) Team Status: Active Member Role Status Dates Dr. Naheed Kam , Family Provider Active Stephanie Kramer ACCOUNTING CLERKS SUPERVISOR, ACCOUNTING CLERKS SUPERVISOR-C Primary Care Provider Activ e Team Status: Inactive Member Role Status Dates Dr. Naheed Kam , Primary Care Provider, Referring P rovider Active Dr. Nisha Edouard DO Attending Provider Activ e Team Status: Inactive Member Role Status Dates Stephanie Kramer ACCOUNTING CLERKS SUPERVISOR, ACCOUNTING CLERKS SUPERVISOR-C Primary Care Provider, Attending Provider, Referring Provider Active Team Status: Inactive Member Role Status Dates Stephanie Kramer ACCOUNTING CLERKS SUPERVISOR, ACCOUNTING CLERKS SUPERVISOR-C Primary Care Provider, Refe rring Provider Active Luis Armando Scherer PA, PA Attending Provider Active Team Status: Active Member Role Status Dates Stephanie Kramer ACCOUNTING CLERKS SUPERVISOR, ACCOUNTING CLERKS SUPERVISOR-C Primary Care Provider Activ e Health Risk Assessment Attending Provider, Referring P rovider Active Team Status: Active Member Role Status Dates Stephanie Kramer ACCOUNTING CLERKS SUPERVISOR, ACCOUNTING CLERKS SUPERVISOR-C Primary Care Provider Activ e magda vaccarellteofilo Attending Provider, Referring Provid er Active Team Status: Inactive Member Role Status Dates Stephanie Kramer ACCOUNTING CLERKS SUPERVISOR, ACCOUNTING CLERKS SUPERVISOR-C Primary Care Provider Activ e MAGDA VACCAREMARY Attending Provider, Referring Provid er Active Team Status: Inactive Member Role Status Dates Stephanie Kramer ACCOUNTING CLERKS SUPERVISOR, ACCOUNTING CLERKS SUPERVISOR-C Primary Care Provider Activ CROW Carreno Attending Provider, Referring Provider Active Team Status: Active Member Role Status Dates Stephanie Kramer ACCOUNTING CLERKS SUPERVISOR, ACCOUNTING CLERKS SUPERVISOR-C Primary Care Provider Activ e CROW PAYAN Attending Provider, Referring Provider Active Team Status: Inactive Member Role Status Dates Stephanie Kramer NP, ACCOUNTING CLERKS SUPERVISOR-C Primary Care Provider Activ e Dr. Jed Harp DO Attending Provider, Emergency P rovider Active Team Status: Inactive Member Role Status Dates RUPERT SALCIDO Attending Provider Active Start: J anuary 2024 End: September 21, 2024 Stephanie Kramer NP, ACCOUNTING CLERKS SUPERVISOR-C Primary Care Provider Activ e Start: September 21, 2024 End: September 21, 2024 Team Status: Inactive Member Role Status Dates Stephanie Kramer NP, ACCOUNTING CLERKS SUPERVISOR-C Primary Care Provider Activ e Start: December 30, 2024 End: December 30, 2024 Stephanie Krmaer ACCOUNTING CLERKS SUPERVISOR, ACCOUNTING CLERKS SUPERVISOR-C Referring Provider Active Start: December 30, 2024 End: December 30, 2024 Solomon Luz ACCOUNTING CLERKS SUPERVISOR, ACCOUNTING CLERKS SUPERVISOR-C Attending Provider Active S tart: December 30, 2024 End: December 30, 2024 Team Status: Inactive Member Role Status Dates Stephanie Kramer ACCOUNTING CLERKS SUPERVISOR, ACCOUNTING CLERKS SUPERVISOR-C Primary Care Provider Activ e Start: January 03, 2025 End: January 03, 2025 Stephanie Kramer ACCOUNTING CLERKS SUPERVISOR, ACCOUNTING CLERKS SUPERVISOR-C Referring Provider Active Start: January 03, 2025 End: January 03, 2025 Luis Armando POON PA Attending Provider Active Sta rt: January 03, 2025 End: January 03, 2025 Team Status: Inactive Member Role Status Dates Stephanie Kramer ACCOUNTING CLERKS SUPERVISOR, ACCOUNTING CLERKS SUPERVISOR-C Primary Care Provider Activ e Start: January 07, 2025 End: January 07, 2025 Stephanie Kramer ACCOUNTING CLERKS SUPERVISOR, ACCOUNTING CLERKS SUPERVISOR-C Attending Provider Active Start: January 07, 2025 End: January 07, 2025 Stephanie Kramer ACCOUNTING CLERKS SUPERVISOR, ACCOUNTING CLERKS SUPERVISOR-C Referring Provider Active Start: January 07, 2025 End: January 07, 2025 Team Status: Active Member Role/Relationship Status Dates Dr. Naheed Kam , DO Family Provider Active Stephanie Kramer ACCOUNTING [employer]ERKS SUPERVISOR, ACCOUNTING [employer]ERKS SUPERVISOR-C Primary Care Provider Activ e Team Status: Inactive Member Role/Relationship Status Dates Stephanie Kramer ACCOUNTING CLERKS SUPERVISOR, ACCOUNTING [employer]ERKS SUPERVISOR-C Primary Care Provider Activ e Start: December 30, 2024 End: December 30, 2024 Stephanie Kramer ACCOUNTING CLERKS SUPERVISOR, ACCOUNTING CLERKS SUPERVISOR-C Referring Provider Active Start: December 30, 2024 End: December 30, 2024 Solomon Luz ACCOUNTING CLERKS SUPERVISOR, ACCOUNTING CLERKS SUPERVISOR-C Attending Provider Active S tart: December 30, 2024 End: December 30, 2024 Team Status: Inactive Member Role/Relationship Status Dates Stephanie Kramer ACCOUNTING CLERKS SUPERVISOR, ACCOUNTING CLERKS SUPERVISOR-C Primary Care Provider Activ e Start: January 03, 2025 End: January 03, 2025 Stephanie Kramer ACCOUNTING CLERKS SUPERVISOR, ACCOUNTING CLERKS SUPERVISOR-C Referring Provider Active Start: January 03, 2025 End: January 03, 2025 Luis Armando POON PA Attending Provider Active Sta rt: January 03, 2025 End: January 03, 2025 Team Status: Inactive Member Role/Relationship Status Dates Stephanie Kramer NP, ACCOUNTING [employer]ERKS SUPERVISOR-C Primary Care Provider Activ e Start: January 03, 2025 End: January 03, 2025 Stephanie Kramer ACCOUNTING CLERKS SUPERVISOR, ACCOUNTING [employer]ERKS SUPERVISOR-C Referring Provider Active Start: January 03, 2025 End: January 03, 2025 CLEVE Boyce Attending Provider Active Sta rt: January 03, 2025 End: January 03, 2025 Team Status: Inactive Member Role/Relationship Status Dates Stephanie Kramer ACCOUNTING CLERKS SUPERVISOR, ACCOUNTING CLERKS SUPERVISOR-C Primary Care Provider Activ e Start: January 07, 2025 End: January 07, 2025 Stephanie Kramer ACCOUNTING CLERKS SUPERVISOR, ACCOUNTING CLERKS SUPERVISOR-C Attending Provider Active Start: January 07, 2025 End: January 07, 2025 Stephanie Kramer ACCOUNTING CLERKS SUPERVISOR, ACCOUNTING CLERKS SUPERVISOR-C Referring Provider Active Start: January 07, 2025 End: January 07, 2025 Team Status: Inactive Member Role/Relationship Status Dates Stephanie Kramer ACCOUNTING CLERKS SUPERVISOR, ACCOUNTING CLERKS SUPERVISOR-C Primary Care Provider Activ e Start: March 14, 2025 End: March 14, 2025 Stephanie Kramer ACCOUNTING CLERKS SUPERVISOR, ACCOUNTING CLERKS SUPERVISOR-C Referring Provider Active Start: March 14, 2025 End: March 14, 2025 Dr. Elsie Newby [place] Attending Provider Active S tart: March 14, 2025 End: March 14, 2025 Team Status: Inactive Member Role/Relationship Status Dates Stephanie Kramer NP, ACCOUNTING CLERKS SUPERVISOR-C Primary Care Provider Activ e Start: April 04, 2025 End: April 04, 2025 Stephanie Kramer ACCOUNTING CLERKS SUPERVISOR, ACCOUNTING CLERKS SUPERVISOR-C Referring Provider Active Start: April 04, 2025 End: April 04, 2025 Dr. Elsie Newby [place] Attending Provider Active S tart: April 04, 2025 End: April 04, 2025 INFORMATION SOURCE (unrecogn ized section and content) DATE CREATED AUTHOR 09/26/2024 [facility] DATE CREATED AUTHOR AUTHOR'S ORGANIZ ATION 05/03/2025 [facility] FOR RECORDS PERTAINING TO PATIENTS WHO ARE [...] BE BASED ON THE PRIMARY CLINICAL RECORDS. [facility] [employer] [facility]. provides no warranty or guarantee of the accuracy or completeness of information in this document.
[2025-05-06] MEDS: 0.9% Normal Saline (1000mL) 1,000 ML 999 ML IV (09:44)
[2025-05-06 09:57] LABS: Mucous, Urine 0 SEEN /hpf (<or=2+)
[2025-05-06 10:00] LABS: Color, Urine Yellow (Yellow); Glucose, Dipstick Normal (Normal); Ketone-Dipstick Negative (Negative); Leukocyte Esterase-Dipstick Negative /ul (Negative); Nitrite-Dipstick Negative (Negative); Occult Blood-Urine 25 /ul (Negative); Protein-Dipstick 15 mg/dl (Negative); Specific Gravity, Urine 1.015 (1.002-1.030); Urine Bilirubin Dipstick Negative (Negative)
[2025-05-06 10:09] LABS: Red Blood Cells-Urine 0-5 SEEN /hpf (0-5); Squamous Epithelial Cells - UA 5-10 SEEN /hpf (5-10)
[2025-05-06 10:09] LABS: AST(SGOT) 16 U/L (<=31); Alanine Aminotransfer ALT/SGPT 9 U/L (<=34); Albumin, Serum 4.4 g/dL (3.5-5.0); Alkaline Phosphatase 47 U/L (35-104); Anion Gap 11 (5-15); BUN 11 mg/dL (4-19); BUN/Creat Ratio 15.5 RATIO (10-20); Calcium,Total 9.3 mg/dL (7.6-11.0); Carbon Dioxide 23.5 mmol/L (21.0-32.0); Chloride 104 mmol/L (98-108); Estimated Creatinine Clearance 88.91 ml/min (50-250); Globulin 2.7 g/dL (2.2-4.2); Glucose 95 mg/dL (70-99); Lipase 25 U/L (13-75); Potassium 3.9 mmol/L (3.3-5.1)
[2025-05-06 10:15] LABS: Internal QC Validated? YES +Cl - CLEAR BKGD; Pregnancy, Urine Negative Negative; Record Kit Lot#,Urine Preg 0000962302
--- NOTE | 2025-05-06 11:58 | US_ITS ---
PROCEDURE: TRANSVAGINAL NON- 05/06/2025 REASON FOR EXAM: RULE OUT OVARIAN TORSION TECHNIQUE: Procedure Code: USTVAG Modality: US Procedure: TRANSVAGINAL NON- COMPARISON: CT of the same day FINDINGS: Uterus: Hysterectomy Right ovary: 4.6 x 4.6 x 4.0 cm. Color and spectral Doppler flow is present. Multiple small follicles are seen. Complex cyst right ovary 2.5 x 2.4 x 1.5 cm. Cystic structure adjacent to the right ovary with homogeneous internal echoes and no color flow is 3.3 x 3.7 x 1.8 cm. On the ultrasound this appears to be adjacent to the ovary rather than emanating from the ovary. Hydrosalpinx is present. Left ovary: 3.2 x 2.8 x 2.0 cm. Color and spectral Doppler flow is present. Other: Moderate free fluid US/Transvaginal Non- IMPRESSION: 1. Flow is present to the ovaries. 2. Complex cyst right adnexa is either adjacent to or emanating from the right ovary. Ultrasound shows these as more separate structures, while CT shows this to be more closely associated with the ovary. No color flow associated with the lesion. Right hydrosalpinx is present as well. Findings may be the sequelae of current or pr ior infection or inflammation including pelvic inflammatory disease. Correlate with history and laboratory values. 3. Hysterectomy 4. Moderate free fluid. Reading Location: [id number]
[2025-05-06 12:11] VITALS: BP 102/72; PULSE 83; RESP 16; TEMP 37.1; O2SAT 100
[2025-05-06 14:10] VITALS: BP 111/79; PULSE 66; RESP 18; O2SAT 100
[2025-05-06 15:58] VITALS: BP 111/79; PULSE 66; RESP 18; TEMP 37; O2SAT 100
== END 2025-05-06 15:59 | disposition home or self-care (01) ==
PROVIDERS: Emergency Provider Surgery; PCP Registered Nurse; Visit Provider Surgery
DX: N83.201 Unspecified ovarian cyst, right side (principal); R11.0 Nausea; Z90.710 Acquired absence of both cervix and uterus; N70.11 Chronic salpingitis; R10.31 Right lower quadrant pain; F41.8 Other specified anxiety disorders; Z79.899 Other long term (current) drug therapy
CPT/HCPCS: 74177; 76830; 80053; 81001; 81025; 83690; 85025; 87086; 87088; 87491; 87591; 87661; 96361; 96374; 96375; 96376; 99283; Q9967; A4216; J2405

== ENCOUNTER → 2025-05-10 | Outpatient (CLI) | payer OTHER, SELFPAY ==
[2025-05-10 12:22] LABS: AST(SGOT) 16 U/L (<=31); Alanine Aminotransfer ALT/SGPT 12 U/L (<=34); Albumin, Serum 4.3 g/dL (3.5-5.0); Alkaline Phosphatase 46 U/L (35-104); Anion Gap 12 (5-15); BUN 8 mg/dL (4-19); BUN/Creat Ratio 13.0 RATIO (10-20); Calcium,Total 9.3 mg/dL (7.6-11.0); Carbon Dioxide 22.0 mmol/L (21.0-32.0); Chloride 104 mmol/L (98-108); Globulin 2.9 g/dL (2.2-4.2); Glucose 89 mg/dL (70-99); Potassium 3.8 mmol/L (3.3-5.1)
[2025-05-10 12:54] LABS: Hematocrit 40.4 % (37-47); Hemoglobin 13.0 g/dL (12.0-15.0); Mean Corp Hgb Conc 32.2 g/dL (32-36); Mean Corpuscular Volume 82.6 fL (81-99); Mean Platelet Vol. 10.6 fl (6.2-12.0); Platelet Count 259 K/mm3 (150-450); RBC Distribution Width CV 12.6 % (11.6-14.6); RBC Distribution Width SD 38.0 fl (35.1-43.9); Red Blood Count 4.89 M/mm3 (4.2-5.4); White Blood Count 10.0 K/mm3 (4.4-11.0)
== END | disposition home or self-care (01) ==
LOC: LAB 10:34
PROVIDERS: PCP Registered Nurse; Referring Provider Obstetrics & Gynecology; Visit Provider Obstetrics & Gynecology
DX: R42 Dizziness and giddiness (principal)
CPT/HCPCS: 36415; 80053; 83605; 85027

== ENCOUNTER → 2025-05-22 | Outpatient (CLI) | payer OTHER, SELFPAY ==
--- OUTSIDE RECORDS SUMMARY | 2025-05-22 21:21 | XMS RPT_ITS | CCD ---
Author Organization [facility] Providers Care Production Quality Manager Name Role Phone Ortega ADAM, Cindy S Unavailable Dr. Naheed Kam Primary Care Provider Dr. Naheed Kam Referring Provider CLEVE Price Attending Provider CHARLY Vivas NP Attending Provider [phone] Dr. Naheed Kam Primary Care Provider Dr. Naheed Kam Referring Provider Dr. Nisha Edouard Attending Provider CLEVE Price Attending Provider CLEVE Jj Attending Provider Dr. Naheed Kam Primary Care Provider Dr. Naheed Kam Referring Provider Dr. Nisha Edouard Attending Provider CLEVE Price Attending Provider CLEVE Jj Attending Provider Dr. Elsie Newby Attending Provider Dr. Og Kunz Attending Provider Dr. Nisha Edouard Referring Provider Dr. Nisha Edouard Other Provider Dr. Tigre Mancuso Other Provider Dr. Nisha Edouard Admit Provider Ortega UPPER LEATHER SORTER, UPPER LEATHER SORTER-C Cindy Attending Provider Dr. Bc Weinstein Emergency Provider Dr. Sixto Monge Other Provider Unavaila priya Kam, Dr. Farfan Primary Care Provider Negin, Dr. Farfan Referring Provider Dr. Nisha Edouard Attending Provider Negin, Dr. Farfan Primary Care Provider Negin, Dr. Farfan Referring Provider Cindy Calvin, Dr. Cameron Attending Provider Nia UPPER LEATHER SORTER, UPPER LEATHER SORTER-C Benton Primary Care Provider Nia UPPER LEATHER SORTER, UPPER LEATHER SORTER-C Stephanie Referring Provider CLEVE Jj Attending Provider CLEVE Jj Attending Provider [phone] Nia UPPER LEATHER SORTER, UPPER LEATHER SORTER-C Benton Primary Care Provider Nia UPPER LEATHER SORTER, UPPER LEATHER SORTER-C Stephanie Referring Provider CLEVE Jj Attending Provider [phone] Nia UPPER LEATHER SORTER, UPPER LEATHER SORTER-C Benton Primary Care Provider Nia UPPER LEATHER SORTER, UPPER LEATHER SORTER-C Stephanie Referring Provider CLEVE Jj Attending Provider NIA SKI BASE TRIMMER-GLASS SMOOTHER, STEPHANIE A Primary Care Physi rock NIA SKI BASE TRIMMER-GLASS SMOOTHER, STEPHANIE A Primary Care Un available SALVADOR SKI BASE TRIMMER-GLASS SMOOTHERVERONICA Attending Unavailabl e NIA SKI BASE TRIMMER-GLASS SMOOTHER, STEPHANIE A Primary Care Un available RUPERT SKI BASE TRIMMER-GLASS SMOOTHER, OMARI Attending Unavailab OMARI Ibarra Attending Provider Nia UPPER LEATHER SORTER-C, Stephanie Primary Care Provider [phone] Nia UPPER LEATHER SORTER-C, Stephanie Referring Provider Roof UPPER LEATHER SORTER-C, Solomon Angel Attending Provider Luis Armando Jj Attending Provider Nia UPPER LEATHER SORTER-C, Stephanie Attending Provider [phone] Nia UPPER LEATHER SORTER-C, [place] Primary Care Provider Keyonna RODRIGUEZ, Dr. Zimmerman Attending Provider Nia UPPER LEATHER SORTER-C, [place] Primary Care Provider Nia UPPER LEATHER SORTER-C, [place] Referring Provider Assessment, Health Risk Attending Provider Unava ilable Assessment, Health Risk Referring Provider Unava ilable Aaron NAIR, Dr. Bajwa Emergency Provider Luis Armando Jj Attending Unavailable Nia UPPER LEATHER SORTER, [facility] Unavailabl e Nia UPPER LEATHER SORTER, Stephanie Referring Unavailabl e Vaccarelli PA, Karen Referring Unavailable Vaccarelli PAKaren Attending Unavailable Nia UPPER LEATHER SORTER, [facility] Unavailabl e Nia UPPER LEATHER SORTER, Stephanie Attending Unavailabl e Nia UPPER LEATHER SORTER, [facility] Unavailabl e Nia UPPER LEATHER SORTER, Stephanie Referring Unavailabl e Friend, Igor Referring Unavailable Friend, Igor Attending Unavailable Nia UPPER LEATHER SORTER, [facility] Unavailabl e Nia UPPER LEATHER SORTER, [facility] Unavailabl e MAST, ELDER Referring Unavailable MAST, ELDER Attending Unavailable MAST, ELDER Consulting Unavailable Nia UPPER LEATHER SORTER, Stephanie Referring Unavailabl e Nia UPPER LEATHER SORTER, Stephanie Attending Unavailabl e Nia UPPER LEATHER SORTER, [facility] Unavailabl e Cassy Espinoza Attending Unavailable Nia UPPER LEATHER SORTER, Stephanie Referring Unavailabl e Nia UPPER LEATHER SORTER, [facility] Unavailabl e Nia UPPER LEATHER SORTER, [facility] Unavailabl e Nia UPPER LEATHER SORTER, Stephanie Referring Unavailabl e Nia UPPER LEATHER SORTER, Stephanie Attending Unavailabl e Nia UPPER LEATHER SORTER, [facility] Unavailabl e CAYETANO COHN Attending Unavailable Nia UPPER LEATHER SORTER, [facility] Care Unavailabl e Nia UPPER LEATHER SORTER, Stephanie Referring Unavailabl e Nia UPPER LEATHER SORTER, Stephanie Attending Unavailabl e Igor Luke Attending Unavailable Nia UPPER LEATHER SORTER, [place] Referring Unavailabl e Nia UPPER LEATHER SORTER, [facility] Unavailabl e Cassy Espinoza Referring Unavailable Cassy Espinoza Attending Unavailable Nia UPPER LEATHER SORTER, [facility] Unavailabl e Cassy Espinoza Attending Unavailable Cassy Espinoza Referring Unavailable Nia UPPER LEATHER SORTER, [facility] Unavailabl e Cassy Espinoza Referring Unavailable Cassy Espinoza Attending Unavailable Nia UPPER LEATHER SORTER, [facility] Unavailabl e Dameon Barbara Referring Unavailable Barbara Xiao Attending Unavailable Nia UPPER LEATHER SORTER, [facility] Unavailabl e Assessment, Health Risk Referring Unavaila ble Assessment, Health Risk Attending Unavaila ble Nia UPPER LEATHER SORTER, [facility] Unavailabl e Garett Walker Attending Unavailabl e Nia UPPER LEATHER SORTER, [facility] Unavailabl e Luis Armando Jj Attending Unavailable Nia UPPER LEATHER SORTER, [facility] Unavailabl e Nia UPPER LEATHER SORTER, [place] Referring Unavailabl e DosElsie lorenzo Attending Unavailable Nia UPPER LEATHER SORTER, [facility] Unavailabl e Nia UPPER LEATHER SORTER, [place] Referring Unavailabl e Nia UPPER LEATHER SORTER, [facility] Unavailabl e Salvador UPPER LEATHER SORTERVeronica Referring Unavailable Balrachele UPPER LEATHER SORTERVeronica Attending Unavailable Vaccarelli PAKaren Referring Unavailable Vaccarelli PAKaren Attending Unavailable Nia UPPER LEATHER SORTER, [facility] Unavailabl e Elsie Newby Attending Unavailable Nia UPPER LEATHER SORTER, [place] Referring Unavailabl e Nia UPPER LEATHER SORTER, [facility] Unavailabl e Sukh UPPER LEATHER SORTERSolomon Attending Unavailable Nia UPPER LEATHER SORTER, [facility] Unavailabl e Nia UPPER LEATHER SORTER, [place] Referring Unavailabl e Elsie Newby Attending Unavailable Nia UPPER LEATHER SORTER, [place] Referring Unavailabl e Nia UPPER LEATHER SORTER, [facility] Unavailabl e Igor Luke Attending Unavailable Igor Luke Consulting Unavailable Nia UPPER LEATHER SORTER, [place] Referring Unavailabl e Nia UPPER LEATHER SORTER, [facility] Unavailabl e Cassy Espinoza Attending Unavailable Nia UPPER LEATHER SORTER, [place] Referring Unavailabl e Nia UPPER LEATHER SORTER, [facility] Unavailabl e Nia UPPER LEATHER SORTER-C, Stephanie Primary Care Physician Nia UPPER LEATHER SORTER-C, Stephanie Referring Provider Keyonna RODRIGUEZ, Dr. Zimmerman Attending Physician Assessment, Health Risk Attending Physician Unav ailable Aaron NAIR, Dr. Bajwa Attending Physician Aaron NAIR, Dr[facility] Bajwa [facility] Dameon PISANO, Dr. Jimenez Attending Physician Dameon PISANO, Dr. Jimenez Referring Provider Ree ADAM-C, Kathi Attending Physician Allergies Allergy Classification Reported Allergen(s) Allergy Type Date of Onset Reaction(s) Facility (2 sources) NKDA drug allergy 5 [facility] (20 sources) HYDROmorphone; Translations: [hydromorphone] Drug Allergy 2 Other, loss of motor function [facility] Comment on above: Dizzy (20 sources) oxyCODONE Drug Allergy 2 Nausea [facility] Comment on above: Dizzy (1 source) HYDROmorphone Drug Allergy 5 [facility] Repository (1 source) oxyCODONE Drug Allergy 5 [facility] Repository NEGATED: Highlighted row has been ruled out! (1 source) Observed no known allergies at [facility] No Known Allergies 7 propensity to adverse reactions [facility] Medications Current Medications Medication Drug Class(es) Dates [...] tablet Active 1 TABLET PO Q4H 30 August 10, 2022 escitalopram 20 mg oral tablet (7 sources) Serotonin Reuptake Inhibitor Start: 06-14-2024 Lexapro 20 mg oral tablet Dose : 20 mg = 1 tab(s), Oral, qDay, # 90 tab(s), 3 Refill(s), Pharmacy: [facility], Anxiety, 152, cm, 06/14/24 15:21:00 EDT, Height, kg, 06/14/24 15:21:00 EDT, Dosing Weight Start Date: 06/14/24 Status: Ordered Quantity: 90.0 Unit: tab(s) Repeat number: 4 Indication: Anxiety disorder, unspecified Start: 04-25-2024 take 1 tablet by trell th once daily Escitalopram Oxalate 10 mg tablet Active 10 mg PO DAILY April 25, 2024 12:00am Complies with drug therapy Start: 12-07-2023 End: 03-06-2024 escitalopram 10 mg oral tabl et Dose : 10 mg = 1 tab(s), Oral, qDay, # 30 tab(s), 2 Refill(s), Pharmacy: [facility], 155, cm, 11/09/23 15:29:00 EST, Height, kg, 11/09/23 15:23:00 EST, Dosing Weight Start Date: 12/07/23 Stop Date: 03/06/24 Status: Ordered meclizine hydrochloride 25 mg oral tablet (20 [...] 11, 2017 1:00am January 11, 2018 2:36pm Completed/Discontinued Medications Medication Drug Class(es) Dates Sig (Normalized) Sig (Original) acetaminophen 250 mg / aspirin 250 mg / caffeine 65 mg oral tablet (1 source) Nonsteroidal Anti-inflammatory Drug, Central Nervous System Stimulant, Methylxanthine Start: 08-22-2014 take 2 tablets by mouth once daily as needed EXCEDRIN MIGRAINE 250-250-65 MG TABS Two tablets by mouth daily as needed for migraines ASPIRIN-ACETAMINO PHEN-CAFFEINE [id number] Naheed Kam DO acetaminophen 500 mg / [...] by mouth daily as needed DIPHENHYDRAMINE-APAP (SLEEP) [id number] Cassy Segundo LPN acetaminophen 325 mg / HYDROcodone bitartrate 5 mg oral tablet (20 sources) Opioid Agonist Start: 01-19-2019 End: 01-23-2019 Hydrocodone-Acetaminophen (Davis 5-325 Tablet) 1 EACH tablet Discontinued 1 NMA PO EVERY 4 HOURS NEEDED as needed for Pain 28 4 0 January 19, 2019 12:00am January 22, 2019 12:00January 23, 2019 12:06am Other acute postprocedural pain [...] 1000 mg PO TWICE A DAY 40 January 20, 2022 12:00am January 29, 2022 12:00am January 30, 2022 12:05am Start: 01-20-2022 End: 01-30-2022 take 1000 mg by mouth twice daily Amoxicillin Discontinued 1000 MG PO TWICE A DAY 40 January 20, 2022 12:00am January 30, 2022 12:05am amoxicillin 875 mg / clavulanate 125 mg oral tablet (10 sources) Penicillin-class Antibacterial Start: 04-28-2023 End: 05-08-2023 [...] 2023 12:03am azithromycin 250 mg oral tablet (8 sources) Macrolide Antimicrobial Start: 11-02-2023 End: 04-25-2024 take 2-5 tablets by mouth once daily Azithromycin 250 mg tablet Discontinued 0 PO .COMPLEX 6 0 November 02, 2023 1:00am April 25, 2024 [...] 1 po daily on days 2-5 AZITHROMYCIN [id number] Naheed Kam DO bacillus coagulans [id number] unt / inulin 250 mg oral capsule (5 sources) Start: 06-14-2024 End: 05-06-2025 take 1 capsule by mouth once daily Bacillus Coagulans-Inulin (Probiotic With Prebiotic) 1 billion-250 cell-mg capsule Discontinued 1 NMA PO DAILY June 14, 2024 12:00am May 06, 2025 9:57am 24 hr buPROPion hydrochloride 150 mg extended release oral tablet (10 sources) Aminoketone Start: 01-21-2023 End: 04-28-2023 take 1 tablet by mouth once daily in the morning Bupropion Hcl (Wellbutrin Xl) 150 mg tablet extended release 24 hr Discontinued 150 mg PO EVERY MORNING January 21, 2023 12:00am April 28, 2023 11:03am busPIRone hydrochloride 15 mg oral tablet (15 sources) Start: 08-26-2022 End: 01-21-2023 take 1 [...] Twice daily x 3 days CIPROFLOXACIN HCL [id number] Naheed Kam DO citalopram 20 mg oral [...] to affected areas twice daily CLINDAMYCIN PHOSPHATE [id number] Naheed Kam DO colestipol hydrochloride 1000 mg oral tablet (5 sources) Bile Acid Sequestrant Start: 07-17-2024 End: 05-06-2025 Colestipol 1 gram tablet Discontinued 1 g PO daily 30 July 17, 2024 1:00am May 06, 2025 9:57am cyclobenzaprine hydrochloride 5 mg oral tablet (10 sources) Muscle Relaxant Start: 01-21-2023 End: 04-28-2023 [...] tablet Discontinued 1 {tbl} PO daily 84 4 February 09, 2019 12:00am February 26, 2019 9:51am Start: 02-09-2019 End: 02-26-2019 take 0.15 tablet by mouth once daily Desogestrel-Ethinyl Estradiol (Apri) 0.15-0.03 mg tablet Discontinued 1 {tbl} PO daily 84 February 09, 2019 12:00am February 26, 2019 9:51am Start: 02-09-2019 End: 02-26-2019 Desogestrel-Ethinyl Estradio l (Apri) 0.15-0.03 mg tablet Discontinued 1 TABLET PO daily 84 February 08, 2019 11:00pm February 26, 2019 8:51am Start: 02-09-2019 End: 02-26-2019 Desogestrel-Ethinyl Estradio l (Apri) 0.15-0.03 mg tablet Discontinued 1 TABLET PO daily 84 February 09, 2019 12:00am February 26, 2019 9:51am 24 hr desvenlafaxine succinate 50 mg extended release oral tablet (20 sources) Serotonin and Norepinephrine Reuptake Inhibitor Start: 11-30-2022 End: 01-21-2023 take 1 tablet by mouth once daily, then take 1 tablet by mouth every twenty-four hours Desvenlafaxine Succinate (Pristiq) 50 mg tablet extended release 24 hr Discontinued 50 mg PO DAILY 30 November 30, 2022 12:00am January 21, 2023 2:50pm Start: 10-13-2022 End: 01-21-2023 take 1 tablet by mouth once daily, then take 1 tablet by mouth every twenty-four hours Desvenlafaxine Succinate (Pristiq) 25 mg tablet extended release 24 hr Discontinued 25 mg PO DAILY 30 October 13, 2022 1:00am January 21, 2023 [...] 2:36pm dicyclomine hydrochloride 10 mg oral capsule (5 sources) Anticholinergic Start: 04-25-2024 End: 06-14-2024 take [...] oral capsule (20 sources) Tetracycline-class Drug Start: 05-06-2025 End: 05-22-2025 take 1 capsule by mouth twice daily Doxycycline Hyclate 100 mg capsule Discontinued 100 mg PO TWICE A DAY 20 10 0 May 06, 2025 12:00am May 22, 2025 2:42pm Start: 05-04-2023 End: 05-14-2023 take 1 capsule [...] (28) tablet Discontinued 4 mg PO DAILY June 16, 2021 12:00am June 17, 2021 10:48am DROSPIRENONE-ETHINYL ESTRADIOL TABS (2 sources) Progestin, Estrogen Start: 06-16-2017 End: 06-29-2017 BENSON TABS Once daily DROSPIRENONE-ETHINYL ESTRADIOL TABS [id number] Cindy Vivas NP Start: 06-16-2017 BENSON TABS Once daily DROSPIRENONE-ETHINYL ESTRADIOL TABS [id number] Elsie Newby DC eletriptan 20 mg oral tablet (2 sources) Serotonin-1b and Serotonin-1d Receptor Agonist Start: 10-03-2014 End: 03-11-2016 RELPAX 20 MG TABS 1 po at onset of migraine, may repeat in 2 hours x 1 if no improvement ELETRIPTAN HYDROBROMIDE [id number] Cassy Segundo LPN eluxadoline 75 mg oral tablet (5 sources) mu-Opioid Receptor Agonist Start: 05-17-2024 End: 06-14-2024 take 1 tablet by mouth twice daily at mealtime Eluxadoline (Viberzi) 75 mg tablet Discontinued 75 mg PO TWICE A DAY 60 0 May 17, 2024 12:00am June 14, 2024 1:36pm must administer with a meal/food 168 hr ethinyl estradiol 0.10207 mg/hr / norelgestromin 0.03134 mg/hr transdermal system (20 sources) Progestin, Estrogen Start: 03-24-2018 End: 06-13-2018 Norelgestromin-Et hin.Estradiol (Xulane) 150-35 mcg/24 hr patch weekly Discontinued 1 NMA TD Q7D 12 April 07, 2018 9:21am June 13, 2018 [...] mg-mcg tablet Discontinued 1 {tbl} PO daily 84 August 21, 2020 1:00am August 21, 2020 4:27pm Start: 08-21-2020 End: 08-21-2020 Norgestimate-Ethinyl Estradi ol (Sprintec (28)) 0.25-35 mg-mcg tablet Discontinued 1 {tbl} PO daily August 21, 2020 1:00August 21, 2020 4:27pm Start: 08-21-2020 End: 08-21-2020 [...] and skin ibuprofen 800 mg oral tablet (19 sources) Nonsteroidal Anti-inflammatory Drug Start: 08-10-2022 End: 01-21-2023 take 1 tablet by mouth every eight hours as needed for pain Ibuprofen 800 mg tablet Discontinued 800 mg PO Q8H as needed for pain 30 7 0 August 10, 2022 1:00am January 21, 2023 2:50pm Start: 05-06-2017 IBUPROFEN CAPS as directed IBUPROFEN CAPS [id number] Annetta Johansen LPN ipratropium bromide 0.021 mg/actuat metered dose nasal spray (1 source) Anticholinergic Start: 01-03-2025 End: 05-06-2025 Ipratropium [place] 21 mcg (0.03 %) spray,non-aerosol Discontinued 2 NMA INTRANASAL 2 to 3 times per day as needed for postnasal drainage 30 0 January 03, 2025 12:00am May 06, 2025 9:57am administer into each nostril Ipratropium [place] 21 mcg (0.03 %) spray,non-aerosol (4 sources) Start: 01-03-2025 End: 05-06-2025 Ipratropium [place] 21 mcg (0.03 %) spray,non-aerosol Discontinued 2 NMA INTRANASAL 2 to 3 times per day as needed for postnasal drainage January 03, 2025 12:00am May 06, 2025 9:57am administer into each nostril Start: 01-03-2025 Ipratropium [...] 03, 2025 12:00am administer into each nostril Lactobacillus Combination No.8 (Adult Probiotic) 3 billion [...] 12:00am February 20, 2018 8:34am LEVONORGEST-ETH ESTRAD -DAY (1 source) Start: 06-29-2017 take 1 tablet by mouth once daily CAMRESE 0.15-0.03 &0.01 MG TABS One tablet by mouth daily LEVONORGEST-ETH ESTRAD 91-DAY [id number] Cindy Vivas UPPER LEATHER SORTER LORazepam 0.5 mg oral tablet (2 sources) Benzodiazepine Start: 08-22-2014 End: 03-11-2016 take 1 tablet by mouth once daily as needed ATIVAN 0.5 MG TABS One tablet by mouth daily as needed LORAZEPAM [id number] Cassy Segundo EMBROIDERY SPECIALIST 1 ml medroxyPROGESTERone acetate 150 mg/ml prefilled syringe (20 sources) Progestin Start: 03-05-2020 End: 03-05-2020 inject 150 mg by intramuscular injection once Depo-Provera (medroxyprogestero ne) 150 mg/mL intramuscular syringe Discontinued 150 MG IM ONCE March 05, 2020 3:38pm March 05, 2020 [...] Discontinued 150 mg IM every 3 months 1 March 04, 2020 3:28pm May 06, 2020 3:42pm Start: 02-19-2015 End: 03-11-2016 take 1 tablet by mouth once daily MEDROXYPROGESTERONE ACETATE 10 MG TABS 1 po daily x 10 days MEDROXYPROGESTERONE ACETATE [id number] Naheed Kam DO Start: 08-22-2014 End: 02-19-2015 MEDROXYPROGESTERONE ACETATE 150 MG/ML SUSP inject 1 ml IM every 10-12 weeks MEDROXYPROGESTERONE ACETATE [id number] Naheed Kam DO methylPREDNISolone 4 mg oral tablet (20 sources) Corticosteroid Start: 01-03-2025 End: 01-09-2025 take 1 tablet by mouth once Methylprednisolone (Medrol (Sukhdev)) 4 mg tablets,dose pack Discontinued 4 mg PO per package directions 21 6 0 January 03, 2025 12:00am January 08, 2025 12:00am January 09, 2025 12:07am Start: 11-02-2023 End: 11-08-2023 take 1 tablet by mouth once Methylprednisolone (Medrol (Sukhdev)) 4 mg tablets,dose pack Discontinued 4 mg PO per package directions 21 6 0 November 02, 2023 1:00am November 07, 2023 [...] PKG DIR metoclopramide 5 mg oral tablet (5 sources) Dopamine-2 Receptor Antagonist Start: 06-25-2024 End: [...] po twice daily x 7 days METRONIDAZOLE [id number] Naheed Kam DO naproxen 250 mg oral tablet (20 sources) Nonsteroidal Anti-inflammatory Drug Start: 03-09-2018 End: 09-11-2018 take 250-500 mg by mouth every eight hours as needed for pain Naproxen 250 MG tablet Discontinued 250 - 500 mg PO EVERY 8 HOURS NEEDED as needed for MILD PAIN 30 1 March 09, 2018 12:00am September 11, 2018 8:58am norethindrone acetate 5 mg oral tablet (20 sources) Start: 01-29-2022 End: 02-10-2022 take 1 tablet by mouth twice daily, then take 1 tablet by mouth once daily Norethindrone Acetate (Aygestin) 5 mg tablet Discontinued 5 mg PO .COMPLEX 30 0 January 29, 2022 12:00am February 10, 2022 [...] 05, 2017 9:17am January 11, 2018 2:36pm omeprazole 40 mg delayed release oral capsule (6 sources) Proton Pump Inhibitor Start: 07-17-2024 End: 05-06-2025 take 1 capsule by mouth once daily Omeprazole 40 mg capsule,delayed release(DR/EC) Discontinued 40 mg PO daily 90 2 July 17, 2024 1:00am May 06, 2025 9:57am Start: 05-23-2024 End: 06-22-2024 omeprazole 40 mg oral delaye d release capsule Dose : 40 mg = 1 cap(s), Oral, qDay, # 30 cap(s), 0 Refill(s), Pharmacy: [facility], GERD (gastroesophageal reflux disease), 152.4, cm, 05/23/24 7:30:00 EDT, Height, kg, 05/23/24 7:30:00 EDT, Dosing Weight Start Date: 05/23/24 Stop Date: 06/22/24 Status: Ordered ondansetron 4 mg disintegrating oral tablet (20 sources) Serotonin-3 Receptor Antagonist Start: 05-06-2025 End: 05-22-2025 take 1 tablet by mouth every eight hours as needed for nausea Ondansetron 4 mg tablet,disintegrating Discontinued 4 mg PO EVERY 8 HOURS NEEDED as needed for Nausea 10 0 May 06, 2025 12:00am May 22, 2025 2:42pm Start: 08-10-2022 take 4 mg by mouth e very eight hours Ondansetron Active 4 MG PO [...] 13, 2018 12:00am September 11, 2018 9:00am oxyCODONE hydrochloride 5 mg oral capsule (2 sources) Opioid Agonist Start: 05-06-2025 End: 05-22-2025 take 1 capsule by mouth every six hours as needed for pain Oxycodone 5 mg capsule Discontinued 5 mg PO EVERY 6 HOURS as needed for pain 8 2 0 May 06, 2025 May 22, 2025 2:42pm Complex cyst of uterine adnexa Other noninflammatory disorders of ovary, fallopian tube and broad ligament Pnv #94-Lugz-Pgwma Acid-Omega3 30 mg iron-10 mg iron-1 mg capsule (3 sources) Start: 09-11-2018 End: 02-26-2019 Pnv #91-Cgfx-Rfxyl Acid-Omega3 30 mg iron-10 mg iron-1 mg capsule Discontinued 1 NMA PO DAILY 0 September 11, 2018 1:00am February 26, 2019 9:51am Start: 09-11-2018 End: 02-26-2019 Pnv #65-Csnz-Vxuwk Acid-Omeg a3 30 mg iron-10 mg iron-1 mg capsule Discontinued 1 NMA PO DAILY September 11, 2018 1:00am February 26, 2019 9:51am Pnv 26-Ygtc-[place] Xjem-Cflpo-5 30 mg iron-10 mg iron-1 mg capsule (2 sources) Start: 09-11-2018 End: 02-26-2019 Pnv 22-Tvjm-Pubwd Melm-Tbhly-7 30 mg iron-10 mg iron-1 mg capsule [...] 2018 9:00am rifAXIMin 550 mg oral tablet (5 sources) Rifamycin Antibacterial Start: 05-14-2024 End: 06-14-2024 [...] 2 hours if no improvement RIZATRIPTAN BENZOATE [id number] Naheed Kam, sertraline 50 mg oral tablet (15 sources) Serotonin Reuptake Inhibitor Start: 08-26-2022 End: 10-13-2022 take 1 tablet by mouth once daily Sertraline (Zoloft) 50 mg tablet Discontinued 50 mg PO DAILY 30 August 26, 2022 1:00am October 13, 2022 3:30pm sulfamethoxazole 800 mg / trimethoprim 160 mg oral tablet (15 sources) Dihydrofolate Reductase Inhibitor Antibacterial, Sulfonamide Antimicrobial [...] po every night for migraine prevention TOPIRAMATE [id number] Naheed Kam DO tretinoin 0.25 mg/ml topical cream (2 sources) Retinoid Start: 02-19-2015 End: 03-11-2016 TRETINOIN 0.025 % CREA apply to affected areas once daily at bedtime TRETINOIN [id number] Naheed Kam DO valACYclovir 500 mg oral tablet (20 sources) Herpesvirus Nucleoside Analog DNA Polymerase Inhibitor, Herpes Simplex Virus Nucleoside Analog DNA Polymerase Inhibitor, Herpes Zoster Virus Nucleoside Analog DNA Polymerase Inhibitor Start: 08-26-2022 End: 04-25-2024 take 1 tablet by mouth once daily Valacyclovir 500 mg tablet Discontinued 500 mg PO DAILY 90 October 03, 2023 1:07pm April 25, 2024 [...] A DAY as needed for cold sores June 19, 2021 1:03pm February 10, 2022 [...] hours x 1 if no better ZOLMITRIPTAN [id number] Naheed Kam, DO Problems Active Problems Problem Classification Problem Date Documented Da te Episodic/Chronic Abdominal pain (20 sources) Pain in pelvis; Translations: [Generalized abdominal pain] Onset: 09-27-2014 08-21-2015 Episodic Acute bronchitis (15 sources) Acute bronchitis; Translations: [Acute bronchitis, unspecified] 11-02-2023 Episodic Anal and rectal conditions (5 sources) Rectal pain; Translations: [Other specified diseases [...] (20 sources) Headache; Translations: [Headache] 01-18-2019 Episodic Immunizations and screening for infectious disease (20 sources) Contact with and (suspected) exposure to other viral communicable diseases; Translations: [Contact with or suspected exposure to other viral communicable disease] Onset: 09-20-2024 Episodic Inflammatory diseases of female pelvic organs (20 sources) Subacute and chronic vaginitis ; Translations: [Subacute and chronic vaginitis] 01-18-2019 Episodic Comment on above: infectious versus in flammatory, consider termite renewal inspector antifungal, discussed avoidance of irritants. may be [...] [Emotional lability] 07-06-2021 Episodic Nausea and vomiting (5 sources) Nausea; Translations: [Nausea] 07-17-2024 Episodic Neoplasms [...] growth us ordered Other female genital disorders (10 sources) Jovani; Translations: [Mittelschmerz] 01-21-2023 Chronic Other female genital disorders (2 sources) Other specified noninflammatory disorders of vagina; Translations: [Other specified noninflammatory disorders of vagina] Onset: 09-20-2024 Episodic Other female genital disorders (2 sources) Complex cyst of uterine adnexa; Translations: [Other noninflammatory disorders of ovary, fallopian tube and broad ligament] 05-06-2025 Episodic Other gastrointestinal disorders (2 sources) Irritable bowel syndrome 05-23-2024 Chronic Other gastrointestinal disorders (1 source) Irritable bowel syndrome without diarrhea; Translations: [Irritable bowel syndrome, unspecified] Onset: 07-11-2024 Chronic Other gastrointestinal disorders (1 source) Abdominal bloating 05-30-2024 Episodic Other gastrointestinal disorders (6 sources) Diarrhea; Translations: [Diarrhea, unspecified] 05-30-2024 Episodic [...] [Fasciculation] 01-18-2019 Episodic Other nervous system disorders (16 sources) Postoperative pain ; Translations: [Other acute [...] on above: PRR MAEVE 01/15/19 girl Barbara BF Gallo nipt and NTD screeni ng nl. carrier screening declined. anatomy scan reviewed. Other screening for suspected conditions (not mental disorders or infectious disease) (20 sources) Patient encounter status; Translations: [Encounter for screening, unspecified] Onset: 07-09-2024 06-17-2022 Episodic Comment on above: NIPT low risk. AFP n egative. Gender was placed in envelope. Other upper respiratory infections (20 sources) Acute [...] Thyroid disorder 01-11-2023 Episodic Residual codes; unclassified (5 sources) H/O: breast problem; Translations: [Personal history [...] [Shortness of breath] Onset: 01-10-2025 Episodic Other skin disorders (1 source) Acne; [...] Test Name Value Interpretation Reference Range Facility Anion gap in Serum or Plasma Ordered By: Barbara Xiao on 05-10-2025 Anion gap [Moles/Vol] 12 mmol/L 5-15 [facility] BUN/creatinine ratioOrdered By: Barbara Xiao on 05-10-2025 Urea nitrogen/Creatinine [Mass ratio] 13.0 mg/mg 10-20 [facility] Bilirubin, totalOrdered By: Barbara Xiao on 05-10-2025 Bilirubin [Mass/Vol] 0.92 mg/dL 0.00-1.30 [facility] CBC-Complete Blood Cnt No Di ffon 05-10-2025 Erythrocyte distribution width (RBC) [Ratio] 12.6 % Normal 11.6-14.6 [facility] Comment on above: Performed By: #### L 400.7600 #### [facility] [address] [place], [address] Hematocrit (Bld) [Volume fraction] 40.4 % Normal 37-47 [facility] Comment on above: Performed By: #### L 400.7600 #### [facility] [address] [place], [address] Hemoglobin (Bld) [Mass/Vol] 13.0 g/dL Normal 12.0-15.0 [facility] Comment on above: Performed By: #### L 400.7600 #### [facility] [address] [place], [address] MCH (RBC) [Entitic mass] 26.6 pg Low 27.0-32.0 [facility] Comment on above: Performed By: #### L 400.7600 #### [facility] [address] [place], [address] MCHC (RBC) [Mass/Vol] 32.2 g/dL Normal 32-36 [facility] Comment on above: Performed By: #### L 400.7600 #### [facility] [address] [place], [address] MCV (RBC) [Entitic vol] 82.6 fL Normal 81-99 [facility] Comment on above: Performed By: #### L 400.7600 #### [facility] [address] [place], [address] Platelet mean volume (Bld) [Entitic vol] 10.6 fL Normal 6.2-12.0 [facility] Comment on above: Performed By: #### L 400.7600 #### [facility] [address] [place], [address] Platelets (Bld) [#/Vol] 259 10*3/uL Normal 150-450 [facility] Comment on above: Performed By: #### L 400.7600 #### [facility] [address] [place], [address] RBC (Bld) [#/Vol] 4.89 10*6/uL Normal 4.2-5.4 [facility] Comment on above: Performed By: #### L 400.7600 #### [facility] [address] [place], [address] RDW SD 38.0 fl Normal 35.1-43.9 [facility] Comment on above: Performed By: #### L 400.7600 #### [facility] [address] [place], [address] WBC (Bld) [#/Vol] 10.0 10*3/uL Normal 4.4-11.0 [facility] Comment on above: Performed By: #### L 400.7600 #### [facility] [address] [place], [address] Carbon dioxide, total [Moles /volume] in Central venous bloodOrdered By: Barbara Xiao on 05-10-2025 CO2 [Moles/Vol] 22.0 mmol/L 21.0-32.0 [facility] Chloride assayOrdered By: Sa miguel angel Xiao on 05-10-2025 Chloride [Moles/Vol] 104 mmol/L 98-108 [facility] Comprehensive Metabolic Prof ilon 05-10-2025 Albumin [Mass/Vol] 4.3 g/dL Normal 3.5-5.0 [facility] Comment on above: Performed By: #### L 400.7600 #### [facility] [address] [place], [address] Albumin/Globulin [Mass ratio] 1.5 {ratio} Normal 0.9-2.4 [facility] Comment on above: Performed By: #### L 400.7600 #### [facility] [address] [place], [address] ALK PHOS 46 U/L Normal 35-104 [facility] Comment on above: Performed By: #### L 400.7600 #### [facility] [address] [place], [address] ALT [Catalytic activity/Vol] 12 U/L Normal <=34 [facility] Comment on above: Performed By: #### L 400.7600 #### [facility] [address] [place], [address] AST [Catalytic activity/Vol] 16 U/L Normal <=31 [facility] Comment on above: Performed By: #### L 400.7600 #### [facility] [address] [place], [address] Bilirubin [Mass/Vol] 0.92 mg/dL Normal 0.00-1.30 [facility] Comment on above: Performed By: #### L 400.7600 #### [facility] [address] [place], [address] BUN/CRE 13.0 RATIO Normal 10-20 [facility] Comment on above: Performed By: #### L 400.7600 #### [facility] [address] [place], [address] Calcium [Mass/Vol] 9.3 mg/dL Normal 7.6-11.0 [facility] Comment on above: Performed By: #### L 400.7600 #### [facility] [address] [place], [address] Chloride [Moles/Vol] 104 mmol/L Normal 98-108 [facility] Comment on above: Performed By: #### L 400.7600 #### [facility] [address] [place], [address] CO2 [Moles/Vol] 22.0 mmol/L Normal 21.0-32.0 [facility] Comment on above: Performed By: #### L 400.7600 #### [facility] [address] [place], [address] Creatinine [Mass/Vol] 0.61 mg/dL Low 0.70-1.20 [facility] Comment on above: Performed By: #### L 400.7600 #### [facility] [address] [place], [address] GAP 12 Normal 5-15 [facility] Comment on above: Performed By: #### L 400.7600 #### [facility] [address] [place], [address] GFR/1.73 sq M.predicted among non-blacks MDRD (S/P/Bld) [Vol rate/Area] 119 mL/min/{1.73_m2} Normal >60 [facility] Comment on above: Result Comment: mL/m in/1.73m2 CKD-EPI Creatinine Equation (2020) Performed By: #### L 400.7600 #### [facility] [address] [place], [address] Globulin (S) [Mass/Vol] 2.9 g/dL Normal 2.2-4.2 [facility] Comment on above: Performed By: #### L 400.7600 #### [facility] [address] [place], [address] Glucose [Mass/Vol] 89 mg/dL Normal 70-99 [facility] Comment on above: Performed By: #### L 400.7600 #### [facility] [address] [place], [address] Potassium [Moles/Vol] 3.8 mmol/L Normal 3.3-5.1 [facility] Comment on above: Performed By: #### L 400.7600 #### [facility] [address] [place], [address] Sodium [Moles/Vol] 137 mmol/L Normal 133-145 [facility] Comment on above: Performed By: #### L 400.7600 #### [facility] [address] [place], [address] T PROT 7.2 g/dL Normal 5.9-8.4 [facility] Comment on above: Performed By: #### L 400.7600 #### [facility] [address] [place], [address] Urea nitrogen [Mass/Vol] 8 mg/dL Normal 4-19 [facility] Comment on above: Performed By: #### L 400.7600 #### [facility] [address] [place], [address] Erythrocyte distribution wid th ratioOrdered By: Barbara Xiao on 05-10-2025 Erythrocyte distribution width (RBC) [Ratio] 12.6 % 11.6-14.6 [facility] Erythrocyte distribution wid th standard deviationOrdered By: Barbara Xiao on 05-10-2025 Erythrocyte distribution width (RBC) [Ratio] 38.0 fl 35.1-43.9 [facility] Glomerular filtration rate ( GFR) estimation/1.73 sq m using serum, plasma, or whole bOrdered By: Barbara Xiao on 05-10-2025 GFR/1.73 sq M.predicted among non-blacks MDRD (S/P/Bld) [Vol rate/Area] 119 mL/min/{1.73_m2} >60 [facility] Comment on above: mL/min/1.73m2 CKD-EP I Creatinine Equation (2020) Hematocrit Auto (Bld) [Volum e fraction]Ordered By: Barbara Xiao on 05-10-2025 Hematocrit (Bld) [Volume fraction] 40.4 % 37-47 [facility] Hemoglobin measurementOrdere d By: Barbara Xiao on 05-10-2025 Hemoglobin (Bld) [Mass/Vol] 13.0 g/dL 12.0-15.0 [facility] - Chemistry and C hemistry - challengeOrdered By: Barbara Xiao on 05-10-2025 AST [Catalytic activity/Vol] 16 U/L <32 [facility] Lactic Acidon 05-10-2025 Lactate [Moles/Vol] mmol/L Normal 0.0-2.0 [facility] Comment on above: Order Comment: N Performed By: #### L 400.3283 #### [facility] [address] [place] [address], [address] Lactic acid measurementOrder ed By: Barbara Xiao on 05-10-2025 Lactate [Moles/Vol] mmol/L 0.0-2.0 [facility] MCV (mean corpuscular volume ) determinationOrdered By: Barbara Xiao on 05-10-2025 MCV (RBC) [Entitic vol] 82.6 fL 81-99 [facility] Mean corpuscular hemoglobin (MCH) determinationOrdered By: Barbara Xiao on 05-10-2025 MCH (RBC) [Entitic mass] 26.6 pg Low 27.0-32.0 [facility] Mean corpuscular hemoglobin concentration (MCHC) determinationOrdered By: Barbara Xiao on 05-10-2025 MCHC (RBC) [Mass/Vol] 32.2 g/dL 32-36 [facility] Mean platelet volume determi nationOrdered By: Barbara Xiao on 05-10-2025 Platelet mean volume (Bld) [Entitic vol] 10.6 fL 6.2-12.0 [facility] Platelet countOrdered By: Sa miguel angel Xiao on 05-10-2025 Platelets (Bld) [#/Vol] 259 10*3/uL 150-450 [facility] Potassium measurement (mass/ volume)Ordered By: Barbara Xiao on 05-10-2025 Potassium (Unsp spec) [Mass/Vol] 3.8 mmol/L 3.3-5.1 [facility] RBC Auto (Bld) [#/Vol]Ordere d By: Barbara Xiao on 05-10-2025 RBC (Bld) [#/Vol] 4.89 10*6/uL 4.2-5.4 [facility] Serum creatinine measurement (mass/volume)Ordered By: Barbara Xiao on 05-10-2025 Creatinine [Mass/Vol] 0.61 mg/dL Low 0.70-1.20 [facility] Serum globulin measurementOr dered By: Barbara Xiao on 05-10-2025 Globulin (S) [Mass/Vol] 2.9 g/dL 2.2-4.2 [facility] Serum glucose measurement (m ass/volume)Ordered By: Barbara Xiao on 05-10-2025 Glucose [Mass/Vol] 89 mg/dL 70-99 [facility] Serum or plasma alanine mckeon otransferase (ALT) measurementOrdered By: Barbara Xiao on 05-10-2025 ALT [Catalytic activity/Vol] 12 U/L <35 [facility] Serum or plasma albumin nikole urement (mass/volume)Ordered By: Barbara Xiao on 05-10-2025 Albumin [Mass/Vol] 4.3 g/dL 3.5-5.0 [facility] Serum or plasma albumin/glob ulin mass ratioOrdered By: Barbara Xiao on 05-10-2025 Albumin/Globulin [Mass ratio] 1.5 {ratio} 0.9-2.4 [facility] Serum or plasma alkaline chayo sphatase measurementOrdered By: Barbara Xiao on 05-10-2025 ALP [Catalytic activity/Vol] 46 U/L 35-104 [facility] Serum or plasma calcium nikole urement (mass/volume)Ordered By: Barbara Xiao on 05-10-2025 Calcium [Mass/Vol] 9.3 mg/dL 7.6-11.0 [facility] Serum or plasma urea nitroge n measurement (mass/volume)Ordered By: Barbara Xiao on 05-10-2025 Urea nitrogen [Mass/Vol] 8 mg/dL 4-19 [facility] Sodium levelOrdered By: Bijanfawad Xiao on 05-10-2025 Sodium [Moles/Vol] 137 mmol/L 133-145 [facility] Total proteinOrdered By: Mode taborfawad Xiao on 05-10-2025 Protein [Mass/Vol] 7.2 g/dL 5.9-8.4 [facility] White blood cell (WBC) count Ordered By: Barbara Xiao on 05-10-2025 WBC (Bld) [#/Vol] 10.0 10*3/uL 4.4-11.0 [facility] Urine Cultureon 05-08-2025 [facility] Below infection leve l. Mixed Gram Positive Organisms Lewellen Count <1000 [facility] Mixed contaminants. Submit a new specimen if indicated. Normal [facility] Comment on above: Performed By: #### L 3890.6100, L3890.6300, L3890.6005, L3100.0440, L509.8000 #### [facility] [address] [place], [address] Abdomen/Pelvis W IV Cont ONL Yon 05-06-2025 Abdomen/Pelvis W IV Cont ONLY [facility] [address] [place] [address] Abdomen/Pelvis W IV Cont ONLY MR#: [id number] Acct: [id number] Name: BARBARA QUINTANILLA Rep #: [id number] : 1990 F 34 From: Raoul Miller MD PCP: Stephanie Kramer [facility]TER-C Status: REG ER Study: Abdomen/Pelvis W IV Cont ONLY Date of Exam: Exam# [id number] Ordering Dr: Garett Walker DO PROCEDURE: ABDOMEN/PELVIS W IV CONT ONLY 05/06/2025 REASON FOR EXAM: RIGHT LOWER QUADRANT ABDOMINAL PAIN TECHNIQUE: Procedure Code: [id number] Modality: CT Procedure: ABDOMEN/PELVIS W IV CONT ONLY Coronal and Sagittal reconstruction series were provided. CONTRAST: Isovue 370 VOLUME: 75 mL One or more dose reduction techniques were used (e.g., Automated exposure control, adjustment of the mA and/or kV according to patient size, use of iterative reconstruction technique. RADIATION DOSE SUMMARY: CTDlvol: 20 mGy DLP: 473 mGycm COMPARISON: June 02, 2023 FINDINGS: Lung bases: Clear Liver: Normal Gallbladder: Normal Spleen: Normal Pancreas: Normal Adrenals: Normal Kidneys: Simple cyst left upper pole is 12 mm. Otherwise, the kidneys are unremarkable. Bladder: Normal Reproductive Organs: Fluid density linear, tubular structure is seen on the right side suggestive of hydrosalpinx. Additionally, there is an enlarged right ovary with hyperemia associated with a cystic structure located deep in the pelvis measuring 3.0 x 3.3 x 2.4 cm. Previously identified large cyst associated with the left ovary is no longer seen. Much smaller cyst is seen involving the left ovary measuring 1.2 x 0.8 x 1.2 cm. Fluid is present in the cul-de-sac. Uterus is surgically absent. Bowel: Stomach is normal. Small bowel is unremarkable. Colon appears normal except for some mild thickening, enhancement of the rectum with minimal stranding present. Appendix: The appendix is not identified. There is no inflammatory process identified in the right lower quadrant to suggest appendicitis. Lymph nodes: None appear enlarged. Vasculature: Normal Peritoneum / Retroperitoneum: No free air or mass. Scant free fluid in the pericolic gutters inferiorly. Moderate free fluid in the pelvis. 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 CT/Abdomen/Pelvis W IV Cont ONLY IMPRESSION: 1. Hysterectomy. 2. Moderate free fluid in the pelvis. Hydrosalpinx is seen on the right and there is a large, hyperenhancing cyst involving the right ovary. The previously identified cyst involving the left ovary has resolved. A small cyst on the left remains. Pelvic inflammatory disease/infection should be considered. 3. Mild circumferential thickening, hyperenhancement of the rectum. Proctitis should be considered. Reading Location: [id number] CC: CHARLY Kramer; Dr. Garett Walker DO Phys Assistant: Signed Normal [facility] Absolute lymphocyte countOrd ered By: Garett Walker on 05-06-2025 Lymphocytes Auto (Unsp spec) [#/Vol] 2.30 10*3/uL 0.83-4.51 [facility] Absolute neutrophil countOrd ered By: Garett Walker on 05-06-2025 Neutrophils (Bld) [#/Vol] 7.3 10*3/uL 2.0-7.7 [facility] Anion gap in Serum or Plasma Ordered By: Garett Walker on 05-06-2025 Anion gap [Moles/Vol] 11 mmol/L 5-15 [facility] Automated lymphocyte count a s percentage of total leukocytesOrdered By: Garett Walker on 05-06-2025 Lymphocytes/100 WBC Auto (Unsp spec) 22.2 % 19-41 [facility] BUN/creatinine ratioOrdered By: Garettcristina Walker on 05-06-2025 Urea nitrogen/Creatinine [Mass ratio] 15.5 mg/mg 10- [facility] Basophil percentageOrdered B y: Garett Walker on 05-06-2025 Basophils/100 WBC (Bld) 0.4 % 0-1 [facility] Bilirubin Test strip Ql (U)O rdered By: Garett Walker on 05-06-2025 Bilirubin Ql (U) Negative Negative [facility] Bilirubin, totalOrdered By: Garett Walker on 05-06-2025 Bilirubin [Mass/Vol] 1.02 mg/dL 0.00-1.30 [facility] CBC W/Diff, Automatedon Absolute Lymph 2.30 X10 3/uL Normal 0.83-4.51 [facility] Comment on above: Performed By: #### L 3890.6100, L3890.6300, L3890.6005, L3100.0440, L509.8000 #### [facility] [address] [place], [address] Absolute Neut 7.3 X10 3/uL Normal 2.0-7.7 [facility] Comment on above: Performed By: #### L 3890.6100, L3890.6300, L3890.6005, L3100.0440, L509.8000 #### [facility] [address] [place], [address] Basophils/100 WBC (Bld) 0.4 % Normal 0-1 [facility] Comment on above: Performed By: #### L 3890.6100, L3890.6300, L3890.6005, L3100.0440, L509.8000 #### [facility] [address] [place], [address] Eosinophils/100 WBC (Bld) 1.1 % Normal 0-5 [facility] Comment on above: Performed By: #### L 3890.6100, L3890.6300, L3890.6005, L3100.0440, L509.8000 #### [facility] [address] [place], [address] Erythrocyte distribution width (RBC) [Ratio] 12.5 % Normal 11.6-14.6 [facility] Comment on above: Performed By: #### L 3890.6100, L3890.6300, L3890.6005, L3100.0440, L509.8000 #### [facility] [address] [place], [address] Hematocrit (Bld) [Volume fraction] 41.5 % Normal 37-47 [facility] Comment on above: Performed By: #### L 3890.6100, L3890.6300, L3890.6005, L3100.0440, L509.8000 #### [facility] [address] [place], [address] Hemoglobin (Bld) [Mass/Vol] 13.6 g/dL Normal 12.0-15.0 [facility] Comment on above: Performed By: #### L 3890.6100, L3890.6300, L3890.6005, L3100.0440, L509.8000 #### [facility] [address] [place], [address] IG% 0.200 Normal 0.0-0.9 [facility] Comment on above: Result Comment: IG% - Immature Granulocytes (promyelocytes, myelocytes and metamyelocytes) > 1% indicates that a LEFT SHIFT is Present. Performed By: #### L 3890.6100, L3890.6300, L3890.6005, L3100.0440, L509.8000 #### [facility] [address] [place], [address] Lymphocytes/100 WBC (Bld) 22.2 % Normal 19-41 [facility] Comment on above: Performed By: #### L 3890.6100, L3890.6300, L3890.6005, L3100.0440, L509.8000 #### [facility] [address] [place], [address] MCH (RBC) [Entitic mass] 27.0 pg Normal 27.0-32.0 [facility] Comment on above: Performed By: #### L 3890.6100, L3890.6300, L3890.6005, L3100.0440, L509.8000 #### [facility] [address] [place], [address] MCHC (RBC) [Mass/Vol] 32.8 g/dL Normal 32-36 [facility] Comment on above: Performed By: #### L 3890.6100, L3890.6300, L3890.6005, L3100.0440, L509.8000 #### [facility] [address] [place], [address] MCV (RBC) [Entitic vol] 82.3 fL Normal 81-99 [facility] Comment on above: Performed By: #### L 3890.6100, L3890.6300, L3890.6005, L3100.0440, L509.8000 #### [facility] [address] [place], [address] Monocytes/100 WBC (Bld) 5.9 % Normal 0-10 [facility] Comment on above: Performed By: #### L 3890.6100, L3890.6300, L3890.6005, L3100.0440, L509.8000 #### [facility] [address] [place], [address] Neutrophils/100 WBC (Bld) 70.2 % High 47-70 [facility] Comment on above: Performed By: #### L 3890.6100, L3890.6300, L3890.6005, L3100.0440, L509.8000 #### [facility] [address] [place], [address] Nucleated RBC (Bld) [#/Vol] 0 10*3/uL Normal 0-5 [facility] Comment on above: Performed By: #### L 3890.6100, L3890.6300, L3890.6005, L3100.0440, L509.8000 #### [facility] [address] [place], [address] Platelet mean volume (Bld) [Entitic vol] 9.6 fL Normal 6.2-12.0 [facility] Comment on above: Performed By: #### L 3890.6100, L3890.6300, L3890.6005, L3100.0440, L509.8000 #### [facility] [address] [place], [address] Platelets (Bld) [#/Vol] 212 10*3/uL Normal 150-450 [facility] Comment on above: Performed By: #### L 3890.6100, L3890.6300, L3890.6005, L3100.0440, L509.8000 #### [facility] [address] [place], [address] RBC (Bld) [#/Vol] 5.04 10*6/uL Normal 4.2-5.4 [facility] Comment on above: Performed By: #### L 3890.6100, L3890.6300, L3890.6005, L3100.0440, L509.8000 #### [facility] [address] [place], [address] RDW SD 37.9 fl Normal 35.1-43.9 [facility] Comment on above: Performed By: #### L 3890.6100, L3890.6300, L3890.6005, L3100.0440, L509.8000 #### [facility] [address] [place], [address] WBC (Bld) [#/Vol] 10.4 10*3/uL Normal 4.4-11.0 [facility] Comment on above: Performed By: #### L 3890.6100, L3890.6300, L3890.6005, L3100.0440, L509.8000 #### [facility] [facility] [address] [place], [address] Carbon dioxide, total [Moles /volume] in Central venous bloodOrdered By: Garett Walker on 05-06-2025 CO2 [Moles/Vol] 23.5 mmol/L 21.0-32.0 [facility] Chloride assayOrdered By: Jamaal Walker on 05-06-2025 Chloride [Moles/Vol] 104 mmol/L 98-108 [facility] Comprehensive Metabolic Prof ilon 05-06-2025 Albumin [Mass/Vol] 4.4 g/dL Normal 3.5-5.0 [facility] Comment on above: Performed By: #### L 3890.6100, L3890.6300, L3890.6005, L3100.0440, L509.8000 #### [facility] [address] [place], [address] Albumin/Globulin [Mass ratio] 1.6 {ratio} Normal 0.9-2.4 [facility] Comment on above: Performed By: #### L 3890.6100, L3890.6300, L3890.6005, L3100.0440, L509.8000 #### [facility] [address] [place], [address] ALK PHOS 47 U/L Normal 35-104 [facility] Comment on above: Performed By: #### L 3890.6100, L3890.6300, L3890.6005, L3100.0440, L509.8000 #### [facility] [address] [place], [address] ALT [Catalytic activity/Vol] 9 U/L Normal <=34 [facility] Comment on above: Performed By: #### L 3890.6100, L3890.6300, L3890.6005, L3100.0440, L509.8000 #### [facility] [address] [place], [address] AST [Catalytic activity/Vol] 16 U/L Normal <=31 [facility] Comment on above: Performed By: #### L 3890.6100, L3890.6300, L3890.6005, L3100.0440, L509.8000 #### [facility] [address] [place], [address] Bilirubin [Mass/Vol] 1.02 mg/dL Normal 0.00-1.30 [facility] Comment on above: Performed By: #### L 3890.6100, L3890.6300, L3890.6005, L3100.0440, L509.8000 #### [facility] [address] [place], [address] BUN/CRE 15.5 RATIO Normal 10-20 [facility] Comment on above: Performed By: #### L 3890.6100, L3890.6300, L3890.6005, L3100.0440, L509.8000 #### [facility] [address] [place], [address] Calcium [Mass/Vol] 9.3 mg/dL Normal 7.6-11.0 [facility] Comment on above: Performed By: #### L 3890.6100, L3890.6300, L3890.6005, L3100.0440, L509.8000 #### [facility] [address] [place], [address] Chloride [Moles/Vol] 104 mmol/L Normal 98-108 [facility] Comment on above: Performed By: #### L 3890.6100, L3890.6300, L3890.6005, L3100.0440, L509.8000 #### [facility] [address] [place], [address] CO2 [Moles/Vol] 23.5 mmol/L Normal 21.0-32.0 [facility] Comment on above: Performed By: #### L 3890.6100, L3890.6300, L3890.6005, L3100.0440, L509.8000 #### [facility] [address] [place], [address] Creatinine [Mass/Vol] 0.69 mg/dL Low 0.70-1.20 [facility] Comment on above: Performed By: #### L 3890.6100, L3890.6300, L3890.6005, L3100.0440, L509.8000 #### [facility] [address] [place], [address] ECRCL 88.91 ml/min Normal 50-250 [facility] Comment on above: Performed By: #### L 3890.6100, L3890.6300, L3890.6005, L3100.0440, L509.8000 #### [facility] [address] [place], [address] GAP 11 Normal 5-15 [facility] Comment on above: Performed By: #### L 3890.6100, L3890.6300, L3890.6005, L3100.0440, L509.8000 #### [facility] [address] [place], [address] GFR/1.73 sq M.predicted among non-blacks MDRD (S/P/Bld) [Vol rate/Area] 116 mL/min/{1.73_m2} Normal >60 [facility] Comment on above: Result Comment: mL/m in/1.73m2 CKD-EPI Creatinine Equation (2020) Performed By: #### L 3890.6100, L3890.6300, L3890.6005, L3100.0440, L509.8000 #### [facility] [address] [place], [address] Globulin (S) [Mass/Vol] 2.7 g/dL Normal 2.2-4.2 [facility] Comment on above: Performed By: #### L 3890.6100, L3890.6300, L3890.6005, L3100.0440, L509.8000 #### [facility] [address] [place], [address] Glucose [Mass/Vol] 95 mg/dL Normal 70-99 [facility] Comment on above: Performed By: #### L 3890.6100, L3890.6300, L3890.6005, L3100.0440, L509.8000 #### [facility] [address] [place], [address] Potassium [Moles/Vol] 3.9 mmol/L Normal 3.3-5.1 [facility] Comment on above: Performed By: #### L 3890.6100, L3890.6300, L3890.6005, L3100.0440, L509.8000 #### [facility] [address] [place], [address] Sodium [Moles/Vol] 139 mmol/L Normal 133-145 [facility] Comment on above: Performed By: #### L 3890.6100, L3890.6300, L3890.6005, L3100.0440, L509.8000 #### [facility] [address] [place], [address] T PROT 7.1 g/dL Normal 5.9-8.4 [facility] Comment on above: Performed By: #### L 3890.6100, L3890.6300, L3890.6005, L3100.0440, L509.8000 #### [facility] [address] [place], [address] Urea nitrogen [Mass/Vol] 11 mg/dL Normal 4-19 [facility] Comment on above: Performed By: #### L 3890.6100, L3890.6300, L3890.6005, L3100.0440, L509.8000 #### [facility] [address] [place], [address] Emergency Department Summary on 05-06-2025 Emergency Department Summary [facility] Medical Records Department [address] [place] [address] Emergency Department Summary 05/06/25 MR#: [id number] Acct: [id number] Name: BARBARA QUINTANILLA Rep #: [id number] : 1990 34 From: Garett Wakler DO PCP: CHARLY Gerard Status:REG ER Location: ED ADDENDUM by Dr. Garett Walker DO on 05/06/25 at 1553 Will send copy to [employer] 05/06/25 8783 Cosigner Signature (if applicable): cc: CHARLY Kramer; Dr. Nisha Edouard, * Signed HPI History of Present Illness Chief Complaint: Abd Pain Narrative Narrative: Chief complaint and HPI: 34-year-old female with past medical history of hysterectomy presents for evaluation of right lower quadrant abdominal pain. Onset of symptoms yesterday evening. Associated symptom is nausea. Denies any fever, chills, shortness of breath, chest pain, diarrhea, constipation, dysuria, hematuria. States it feels similar to a pelvic abscess she had in the past. She denies any vaginal bleeding or discharge. No concern for STI. Review of systems: See HPI Medications: As listed on the chart Allergies: As listed on the chart PFSH: Per chart Vital signs: As listed on the chart. Reviewed. Physical exam: Gen: A O x3, NAD Head: Normocephalic, atraumatic Eyes: No sclera icterus, conjunctiva clear ENT: Moist mucous membranes Neck: Trachea midline, No JVD CV: RRR, no murmurs, no peripheral edema Resp: Lungs CTA BL, no w/r/c GI: Abd soft, non-distended, tender to palpation in the right lower quadrant, no rebound or rigidity Pelvic: Normal external genitalia. No lesions, masses, or rashes appreciated. No active vaginal bleeding or discharge noted. No cervix visualized Musc: Full ROM, no deformity Skin: Warm, dry Neuro: Alert, oriented, grossly intact, sensation intact Psych: Cooperative, appropriate mood and affect [facility] Medical History Wears glasses Wears contact lenses Heartburn Breast mass, left Abnormal mammogram of left breast COVID-19 Mass of head Anxiety and depression Frequent headaches Home Medications ???Medication ???Instructions ???Recorded ???Last Taken ???Type escitalopram oxalate 10 mg tablet 10 mg PO DAILY 04/25/24 06/18/24 History valacyclovir 500 mg tablet 500 mg PO DAILY PRN Cold Sores Unknown History Allergy/AdvReac Type Severity Reaction Status Date / Time hydromorphone (From Dilaudid) AdvReac Other Verified 05/06/25 08:59 oxycodone (From Percocet) AdvReac Nausea Verified 05/06/25 08:59 Family History Father Diabetes Hypertension Mother Hypertension Surgical History Status post hysterectomy History of section History of dilation and curettage lumpectomy back of head Social History Smoking Status: Never smoker alcohol intake: current alcohol intake frequency: holidays/special occasions only details: pre- substance use type: does not use caffeine: Yes what type of physical activity do you participate in: walking and other details: cardio frequency: 5-6 times per week seatbelt use: always do you feel safe at home: Yes additional social history: [place] Patient works at [employer] EXAM Physical Exam Const Vital Signs: 05/06/25 08:59 05/06/25 12:11 05/06/25 14:10 Temperature 98.2 F 98.8 F Temperature Source Temporal Oral Pulse Rate 101 H 83 66 Respiratory Rate 16 16 18 Blood Pressure 127/91 H 102/72 111/79 Blood Pressure Mean 103 82 89 Pulse Ox 100 100 100 Oxygen Delivery Method Room Air Room Air Room Air MDM MDM MDM Narrative Medical decision making narrative: 34-year-old female with past medical history of hysterectomy presents for evaluation of right lower quadrant abdominal pain. Differential diagnosis includes but is not limited to acute appendicitis, gastroenteritis, colitis, UTI, obstruction, lower suspicion for biliary pathology or pancreatitis. NS bolus, Zofran, NS bolus ordered. Abdominal pain workup ordered including CT abdomen pelvis. CBC without leukocytosis or anemia. CMP unremarkable. Lipase unremarkable. UA negative for UTI but positive for blood. Urine negative. CT abdomen pelvis shows hysterectomy. Moderate free fluid in the pelvis. Hydrosalpinx is seen on the right and there is a large, hyper enhancing cyst involving the right ovary. Pelvic inflammatory disease/infection should be considered. Mild circumferential thickening of the rectum. Proctitis should be considered. Patient not endorsing any rectal pain. Denies any diarrhea or constipation. Low suspicion for proctitis. Given these findi (more content not included)... Normal [facility] Eosinophil percentageOrdered By: Garett Walker on 05-06-2025 Eosinophils/100 WBC (Bld) 1.1 % 0-5 [facility] Erythrocyte distribution wid th ratioOrdered By: Garett Walker on 05-06-2025 Erythrocyte distribution width (RBC) [Ratio] 12.5 % 11.6-14.6 [facility] Erythrocyte distribution wid th standard deviationOrdered By: Garett Watson on 05-06-2025 Erythrocyte distribution width (RBC) [Ratio] 37.9 fl 35.1-43.9 [facility] Glomerular filtration rate ( GFR) estimation/1.73 sq m using serum, plasma, or whole bOrdered By: Garett Walker on 05-06-2025 GFR/1.73 sq M.predicted among non-blacks MDRD (S/P/Bld) [Vol rate/Area] 116 mL/min/{1.73_m2} >60 [facility] Comment on above: mL/min/1.73m2 CKD-EP I Creatinine Equation (2020) Hematocrit Auto (Bld) [Volum e fraction]Ordered By: Garett Walker on 05-06-2025 Hematocrit (Bld) [Volume fraction] 41.5 % 37-47 [facility] Hemoglobin measurementOrdere d By: Garett Walker on 05-06-2025 Hemoglobin (Bld) [Mass/Vol] 13.6 g/dL 12.0-15.0 [facility] Immature granulocytes/100 WB C Auto (Bld)Ordered By: Garett Walker on 05-06-2025 Immature granulocytes/100 WBC (Bld) 0.200 % 0.0-0.9 [facility] Comment on above: IG% - Immature Granu locytes (promyelocytes, myelocytes and metamyelocytes) > 1% indicates that a LEFT SHIFT is Present. Ketones Test strip Ql (U)Ord ered By: Garett Walker on 05-06-2025 Ketones Ql (U) Negative Negative [facility] Laboratory - Chemistry and C hemistry - challengeOrdered By: Garett Walker on 09-01-2025 AST [Catalytic activity/Vol] 16 U/L <32 [facility] Lipaseon 05-06-2025 Lipase [Catalytic activity/Vol] 25 U/L Normal 13-75 [facility] Comment on above: Result Comment: Chucky hook note: LIPASE revised reference range effective 22. New Lipase methodology. Expected to produce lower values than the previous assay method. NEW Reference Range: 13 - 75 U/L Performed By: #### L 3890.6100, L3890.6300, L3890.6005, L3100.0440, L509.8000 #### [facility] [address] [place], [address] Lipase measurementOrdered By : Garett Walker on 05-06-2025 Lipase [Catalytic activity/Vol] 25 U/L 13-75 [facility] Comment on above: Please note:LIPASE r evised reference range effective 22. New Lipase methodology. Expected to produce lower values than the previous assay method. NEW Reference Range: 13 - 75 U/L M8200.2203on 05-06-2025 M8200.2203 Pending Chlamydia Trachomatis PCR NEGATIVE for Chlamydia trachomatis N. gonorrhoeae PCR Negative for N. gonorrhoeae Normal [facility] Comment on above: Performed By: #### M 8200.2203 #### [facility] [address] [place], [address] M8200.3000on 05-06-2025 M8200.3000 Pending Trichomonas Vag DNA PCR Negative for Trichomonas vaginalis Normal [facility] Comment on above: Performed By: #### L 3890.6100, L3890.6300, L3890.6005, L3100.0440, L509.8000 #### [facility] [address] [place], [address] MCV (mean corpuscular volume ) determinationOrdered By: Garett Walker on 05-06-2025 MCV (RBC) [Entitic vol] 82.3 fL 81-99 [facility] Mean corpuscular hemoglobin (MCH) determinationOrdered By: Garett Walker on 05-06-2025 MCH (RBC) [Entitic mass] 27.0 pg 27.0-32.0 [facility] Mean corpuscular hemoglobin concentration (MCHC) determinationOrdered By: Garett Walker on 05-06-2025 MCHC (RBC) [Mass/Vol] 32.8 g/dL 32-36 [facility] Mean platelet volume determi nationOrdered By: Garett Walker on 05-06-2025 Platelet mean volume (Bld) [Entitic vol] 9.6 fL 6.2-12.0 [facility] Microscopic analysis of urin e for red blood cells (RBC)Ordered By: Garett Walker on 05-06-2025 Microscopic analysis of urine for red blood cells (RBC) 0-5 SEEN /hpf 0-5 [facility] Monocyte percentageOrdered B y: Garett Walker on 05-06-2025 Monocytes/100 WBC (Bld) 5.9 % 0-10 [facility] Mucus LM Ql (Urine sed)Order ed By: Garett Walker on 05-06-2025 Mucus Ql (Urine sed) 0 SEEN /hpf [facility] Neutrophil percentageOrdered By: Garett Walker on 05-06-2025 Neutrophils/100 WBC (Bld) 70.2 % High 47-70 [facility] Nitrite Test strip Ql (U)Ord ered By: Garett Walker on 05-06-2025 Nitrite Ql (U) Negative Negative [facility] Nucleated red blood cell per centageOrdered By: Garett Walker on 05-06-2025 Nucleated RBC/100 WBC (Bld) [Ratio] 0 % 0-5 [facility] Platelet countOrdered By: Jamaal Walker on 05-06-2025 Platelets (Bld) [#/Vol] 212 10*3/uL 150-450 [facility] Potassium measurement (mass/ volume)Ordered By: Garett Walker on 05-06-2025 Potassium (Unsp spec) [Mass/Vol] 3.9 mmol/L 3.3-5.1 [facility] ,Urineon 05-06-2025 Beta HCG ( test) Ql (U) Negative Normal [facility] Comment on above: Result Comment: Very dilute urine specimens, as indicated by a low specific gravity, may not contain car sales representative levels of hCG. If is still suspected, a first morning urine specimen should be collected 48 hours later and tested. Performed By: #### L 400.7600 #### [facility] [address] [place], [address] Protein Test strip Ql (U)Ord ered By: Garett Walker on 05-06-2025 Protein Ql (U) 15 mg/dl High Negative [facility] RBC Auto (Bld) [#/Vol]Ordere d By: Garett Walker on 05-06-2025 RBC (Bld) [#/Vol] 5.04 10*6/uL 4.2-5.4 [facility] Serum creatinine measurement (mass/volume)Ordered By: Garett Walker on 05-06-2025 Creatinine [Mass/Vol] 0.69 mg/dL Low 0.70-1.20 [facility] Serum globulin measurementOr dered By: Garett Walker on 05-06-2025 Globulin (S) [Mass/Vol] 2.7 g/dL 2.2-4.2 [facility] Serum glucose measurement (m ass/volume)Ordered By: Garett Walker on 05-06-2025 Glucose [Mass/Vol] 95 mg/dL 70-99 [facility] Serum or plasma alanine mckeon otransferase (ALT) measurementOrdered By: Garett Walker on 05-06-2025 ALT [Catalytic activity/Vol] 9 U/L <35 [facility] Serum or plasma albumin nikole urement (mass/volume)Ordered By: Garett Watson on 05-06-2025 Albumin [Mass/Vol] 4.4 g/dL 3.5-5.0 [facility] Serum or plasma albumin/glob ulin mass ratioOrdered By: Garett Walker on 05-06-2025 Albumin/Globulin [Mass ratio] 1.6 {ratio} 0.9-2.4 [facility] Serum or plasma alkaline chayo sphatase measurementOrdered By: Garett Walker on 05-06-2025 ALP [Catalytic activity/Vol] 47 U/L 35-104 [facility] Serum or plasma calcium nikole urement (mass/volume)Ordered By: Garett Watson on 05-06-2025 Calcium [Mass/Vol] 9.3 mg/dL 7.6-11.0 [facility] Serum or plasma urea nitroge n measurement (mass/volume)Ordered By: Garett Walker on 05-06-2025 Urea nitrogen [Mass/Vol] 11 mg/dL 4-19 [facility] Sodium levelOrdered By: Frankie Walker on 05-06-2025 Sodium [Moles/Vol] 139 mmol/L 133-145 [facility] Squamous epithelial cells de tection in urine sediment by light microscopyOrdered By: Garett Walker on 05-06-2025 Epithelial cells.squamous LM Ql (Urine sed) 5-10 SEEN /hpf 5-10 [facility] Total proteinOrdered By: Brandon Walker on 05-06-2025 Protein [Mass/Vol] 7.1 g/dL 5.9-8.4 [facility] Transvaginal Non-on 05-06-2025 Transvaginal Non- [facility] Imaging Services [address] [place], [place] [address] Transvaginal Non- MR#: [id number] Acct: [id number] Name: BARBRAA QUINTANILLA Rep #: [id number] : 1990 F 34 From: Raoul Miller MD PCP: Stephanie Kramer [facility] Status: REG ER Study: Transvaginal Non- Date of Exam: Exam# [id number] Ordering Dr: Garett Walker DO PROCEDURE: TRANSVAGINAL NON- 05/06/2025 REASON FOR EXAM: RULE OUT OVARIAN TORSION TECHNIQUE: Procedure Code: USTVAG Modality: US Procedure: TRANSVAGINAL NON- COMPARISON: CT of the same day FINDINGS: Uterus: Hysterectomy Right ovary: 4.6 x 4.6 x 4.0 cm. Color and spectral Doppler flow is present. Multiple small follicles are seen. Complex cyst right ovary 2.5 x 2.4 x 1.5 cm. Cystic structure adjacent to the right ovary with homogeneous internal echoes and no color flow is 3.3 x 3.7 x 1.8 cm. On the ultrasound this appears to be adjacent to the ovary rather than emanating from the ovary. Hydrosalpinx is present. Left ovary: 3.2 x 2.8 x 2.0 cm. Color and spectral Doppler flow is present. Other: Moderate free fluid US/Transvaginal Non- IMPRESSION: 1. Flow is present to the ovaries. 2. Complex cyst right adnexa is either adjacent to or emanating from the right ovary. Ultrasound shows these as more separate structures, while CT shows this to be more closely associated with the ovary. No color flow associated with the lesion. Right hydrosalpinx is present as well. Findings may be the sequelae of current or prior infection or inflammation including pelvic inflammatory disease. Correlate with history and laboratory values. 3. Hysterectomy 4. Moderate free fluid. Reading Location: [id number] CC: CHARLY Kramer; Dr. Garett Walker DO Phys Assistant: Signed Normal [facility] Urinalysis, Completeon 05-06 BACTERIA 2+ /hpf Normal None Seen [facility] Comment on above: Order Comment: CLEAN CATCH Performed By: #### L 400.5940 #### [facility] [address] [place], [address] EPI,SQUAMOUS 5-10 SEEN Normal 5-10 [facility] Comment on above: Order Comment: CLEAN CATCH Performed By: #### L 400.7600 #### [facility] [address] [place], [address] RBC 0-5 SEEN Normal 0-5 [facility] Comment on above: Order Comment: CLEAN CATCH Performed By: #### L 400.7600 #### [facility] [address] [place], [address] WBC 0-5 SEEN Normal 0-5 [facility] Comment on above: Order Comment: CLEAN CATCH Performed By: #### L 400.7600 #### [facility] [address] [place], [address] Mucus Ql (Urine sed) 0 SEEN Normal [facility] Comment on above: Order Comment: CLEAN CATCH Performed By: #### L 400.7600 #### [facility] [address] [place], [address] Urine clarityOrdered By: Branodn Walker on 05-06-2025 Clarity (U) Sl. Cloudy Clear [facility] Urine color determinationOrd ered By: Garett Walker on 05-06-2025 Color (U) Yellow Yellow [facility] Urine cultureOrdered By: Brandon Walker on 05-06-2025 Bacteria identified Cx Nom (U) Positive Abnormal [facility] Urine glucose detectionOrder ed By: Garett Walker on 05-06-2025 Glucose Ql (U) Normal mg/dl Normal [facility] Urine leukocyte esterase det ection by dipstickOrdered By: Garett Walker on 05-06-2025 Leukocyte esterase Test strip Ql (U) Negative Negative [facility] Urine pHOrdered By: Garett Jain on 05-06-2025 pH (U) 6.0 [pH] 5.0 - 8.0 [facility] Urine testOrdered By: Garett Walker on 05-06-2025 HCG ( test) Ql (U) Negative [facility] Comment on above: Very dilute urine sp ecimens, as indicated by a low specificgravity, may not contain car sales representative levels of hCG. If is still suspected, a first morning urinespecimen should be collected 48 hours later and tested. Urine sediment bacteria coun t by microscopy (number/high power field)Ordered By: Garett Walker on 05-06-2025 Bacteria LM.HPF (Urine sed) [#/Area] 2 /[HPF] None Seen [facility] Urine specific gravity measu rementOrdered By: Garett Walker on 05-06-2025 Specific gravity (U) [Rel density] 1.015 1.002-1.030 [facility] Urine urobilinogen measureme ntOrdered By: Garett Walker on 05-06-2025 Urobilinogen Ql (U) Normal mg/dl Normal [facility] White blood cell (WBC) count Ordered By: Garett Walker on 05-06-2025 WBC (Bld) [#/Vol] 10.4 10*3/uL 4.4-11.0 [facility] White blood cell countOrdere d By: Garett Walker on 05-06-2025 White blood cell count 0-5 SEEN /hpf 0-5 [facility] Absolute lymphocyte countOrd ered By: HEALTH ASSESSMENT on 04-26-2025 Lymphocytes Auto (Unsp spec) [#/Vol] 2.79 10*3/uL 0.83-4.51 [facility] Absolute neutrophil countOrd ered By: HEALTH ASSESSMENT on 04-26-2025 Neutrophils (Bld) [#/Vol] 5.3 10*3/uL 2.0-7.7 [facility] Absolute nucleated red blood cell countOrdered By: HEALTH ASSESSMENT on 04-26-2025 Nucleated RBC (Bld) [#/Vol] 0.00 10*3/uL 0-5 [facility] Anion gap in Serum or Plasma Ordered By: HEALTH ASSESSMENT on 04-26-2025 Anion gap [Moles/Vol] 13 mmol/L 5-15 [facility] BUN/creatinine ratioOrdered By: HEALTH ASSESSMENT on 04-26-2025 Urea nitrogen/Creatinine [Mass ratio] 11.5 mg/mg 10-20 [facility] Bilirubin Test strip Ql (U)O rdered By: HEALTH ASSESSMENT on 04-26-2025 Bilirubin Ql (U) Negative Negative [facility] Bilirubin directOrdered By: HEALTH ASSESSMENT on 04-26-2025 Bilirubin.direct [Mass/Vol] 0.52 mg/dL High 0.00-0.30 [facility] Bilirubin, totalOrdered By: HEALTH ASSESSMENT on 04-26-2025 Bilirubin [Mass/Vol] 1.41 mg/dL High 0.00-1.30 [facility] CBC, Employeeon 04-26-2025 Absolute Lymph 2.79 X10 3/uL Normal 0.83-4.51 [facility] Comment on above: Performed By: #### L 100.0200, L500.2900, L400.0100 #### [facility] [address] [place], [address] Absolute Neut 5.3 X10 3/uL Normal 2.0-7.7 [facility] Comment on above: Performed By: #### L 100.0200, L500.2900, L400.0100 #### [facility] [address] [place], [address] Basophils/100 WBC (Bld) 0.5 % Normal 0-1 [facility] Comment on above: Performed By: #### L 100.0200, L500.2900, L400.0100 #### [facility] [address] [place], [address] Eosinophils/100 WBC (Bld) 1.6 % Normal 0-5 [facility] Comment on above: Performed By: #### L 100.0200, L500.2900, L400.0100 #### [facility] [address] [place], [address] Erythrocyte distribution width (RBC) [Ratio] 12.2 % Normal 11.6-14.6 [facility] Comment on above: Performed By: #### L 100.0200, L500.2900, L400.0100 #### [facility] [address] [place], [address] Hematocrit (Bld) [Volume fraction] 42.6 % Normal 37-47 [facility] Comment on above: Performed By: #### L 100.0200, L500.2900, L400.0100 #### [facility] [address] [place], [address] Hemoglobin (Bld) [Mass/Vol] 13.7 g/dL Normal 12.0-15.0 [facility] Comment on above: Performed By: #### L 100.0200, L500.2900, L400.0100 #### [facility] [address] [place], [address] Lymphocytes/100 WBC (Bld) 31.4 % Normal 19-41 [facility] Comment on above: Performed By: #### L 100.0200, L500.2900, L400.0100 #### [facility] [address] [place], [address] MCH (RBC) [Entitic mass] 26.6 pg Low 27.0-32.0 [facility] Comment on above: Performed By: #### L 100.0200, L500.2900, L400.0100 #### [facility] [address] [place], [address] MCHC (RBC) [Mass/Vol] 32.2 g/dL Normal 32-36 [facility] Comment on above: Performed By: #### L 100.0200, L500.2900, L400.0100 #### [facility] [address] [place], [address] MCV (RBC) [Entitic vol] 82.7 fL Normal 81-99 [facility] Comment on above: Performed By: #### L 100.0200, L500.2900, L400.0100 #### [facility] [address] [place], [address] Monocytes/100 WBC (Bld) 6.4 % Normal 0-10 [facility] Comment on above: Performed By: #### L 100.0200, L500.2900, L400.0100 #### [facility] [address] [place], [address] Neutrophils/100 WBC (Bld) 59.9 % Normal 47-70 [facility] Comment on above: Performed By: #### L 100.0200, L500.2900, L400.0100 #### [facility] [address] [place], [address] NRBC # 0.00 10 3/uL Normal 0-5 [facility] Comment on above: Performed By: #### L 100.0200, L500.2900, L400.0100 #### [facility] [address] [place], [address] Nucleated RBC (Bld) [#/Vol] 0 10*3/uL Normal 0-5 [facility] Comment on above: Performed By: #### L 100.0200, L500.2900, L400.0100 #### [facility] [address] [place], [address] Platelet mean volume (Bld) [Entitic vol] 10.8 fL Normal 6.2-12.0 [facility] Comment on above: Performed By: #### L 100.0200, L500.2900, L400.0100 #### [facility] [address] [place], [address] Platelets (Bld) [#/Vol] 204 10*3/uL Normal 150-450 [facility] Comment on above: Performed By: #### L 100.0200, L500.2900, L400.0100 #### [facility] [address] [place], [address] RBC (Bld) [#/Vol] 5.15 10*6/uL Normal 4.2-5.4 [facility] Comment on above: Performed By: #### L 100.0200, L500.2900, L400.0100 #### [facility] [address] [place], [address] RDW SD 37.3 fl Normal 35.1-43.9 [facility] Comment on above: Performed By: #### L 100.0200, L500.2900, L400.0100 #### [facility] [address] [place], [address] WBC (Bld) [#/Vol] 8.9 10*3/uL Normal 4.4-11.0 [facility] Comment on above: Performed By: #### L 100.0200, L500.2900, L400.0100 #### [facility] [address] [place], [address] Calculated very low density lipoprotein (VLDL) cholesterol measurementOrdered By: HEALTH ASSESSMENT on 04-26-2025 Calculated very low density lipoprotein (VLDL) cholesterol measurement 11 mg/dL 5-40 [facility] Carbon dioxide, total [Moles /volume] in Central venous bloodOrdered By: HEALTH ASSESSMENT on 04-26-2025 CO2 [Moles/Vol] 25.4 mmol/L 21.0-32.0 [facility] Chloride assayOrdered By: HE ALTH ASSESSMENT on 04-26-2025 Chloride [Moles/Vol] 103 mmol/L 98-108 [facility] Employee Profileon 5 LDH 167 U/L Normal 84-246 [facility] Comment on above: Performed By: #### L 100.0200, L500.2900, L400.0100 #### [facility] [address] [place], [address] Phosphate [Mass/Vol] 3.5 mg/dL Normal 2.7-4.5 [facility] Comment on above: Performed By: #### L 100.0200, L500.2900, L400.0100 #### [facility] [address] [place], [place], [address] URIC 4.6 mg/dL Normal 2.6-6.0 [facility] Comment on above: Result Comment: The drugs N-Acetylcysteine and Metamizole may falsely depress this assay. Performed By: #### L 100.0200, L500.2900, L400.0100 #### [facility] [address] [place], [place], [address] Erythrocyte distribution wid th ratioOrdered By: HEALTH ASSESSMENT on 04-26-2025 Erythrocyte distribution width (RBC) [Ratio] 12.2 % 11.6-14.6 [facility] Erythrocyte distribution wid th standard deviationOrdered By: HEALTH ASSESSMENT on 04-26-2025 Erythrocyte distribution width (RBC) [Ratio] 37.3 fl 35.1-43.9 [facility] Glomerular filtration rate ( GFR) estimation/1.73 sq m using serum, plasma, or whole bOrdered By: HEALTH ASSESSMENT on 04-26-2025 GFR/1.73 sq M.predicted among non-blacks MDRD (S/P/Bld) [Vol rate/Area] 105 mL/min/{1.73_m2} >60 [facility] Comment on above: mL/min/1.73m2 CKD-EP I Creatinine Equation (2020) Hematocrit Auto (Bld) [Volum e fraction]Ordered By: HEALTH ASSESSMENT on 04-26-2025 Hematocrit (Bld) [Volume fraction] 42.6 % 37-47 [facility] Hemoglobin measurementOrdere d By: HEALTH ASSESSMENT on 04-26-2025 Hemoglobin (Bld) [Mass/Vol] 13.7 g/dL 12.0-15.0 [facility] Ketones Test strip Ql (U)Ord ered By: HEALTH ASSESSMENT on 04-26-2025 Ketones Ql (U) 5 mg/dl High Negative [facility] LDL calc ser/plasOrdered By: HEALTH ASSESSMENT on 04-26-2025 Cholesterol in LDL [Mass/Vol] 79 mg/dL [facility] Comment on above: Lntckmwvbc=955-091 m g/dL & Higher Cqca=871 mg/dL or greaterFriedwald Equation for LDL-C Laboratory - Chemistry and C hemistry - challengeOrdered By: HEALTH ASSESSMENT on 04-26-2025 AST [Catalytic activity/Vol] 15 U/L <32 [facility] Lactate dehydrogenase (LDH) measurementOrdered By: HEALTH ASSESSMENT on 04-26-2025 LDH [Catalytic activity/Vol] 167 U/L 84-246 [facility] MCV (mean corpuscular volume ) determinationOrdered By: HEALTH ASSESSMENT on 04-26-2025 MCV (RBC) [Entitic vol] 82.7 fL 81-99 [facility] Mean corpuscular hemoglobin (MCH) determinationOrdered By: HEALTH ASSESSMENT on 04-26-2025 MCH (RBC) [Entitic mass] 26.6 pg Low 27.0-32.0 [facility] Mean corpuscular hemoglobin concentration (MCHC) determinationOrdered By: HEALTH ASSESSMENT on 04-26-2025 MCHC (RBC) [Mass/Vol] 32.2 g/dL 32-36 [facility] Mean platelet volume determi nationOrdered By: HEALTH ASSESSMENT on 04-26-2025 Platelet mean volume (Bld) [Entitic vol] 10.8 fL 6.2-12.0 [facility] Neutrophil percentageOrdered By: HEALTH ASSESSMENT on 04-26-2025 Neutrophils/100 WBC (Bld) 59.9 % 47-70 [facility] Nitrite Test strip Ql (U)Ord ered By: HEALTH ASSESSMENT on 04-26-2025 Nitrite Ql (U) Negative Negative [facility] Nucleated red blood cell per centageOrdered By: HEALTH ASSESSMENT on 04-26-2025 Nucleated RBC/100 WBC (Bld) [Ratio] 0 % 0-5 [facility] Platelet countOrdered By: HE ALTH ASSESSMENT on 04-26-2025 Platelets (Bld) [#/Vol] 204 10*3/uL 150-450 [facility] Potassium measurement (mass/ volume)Ordered By: HEALTH ASSESSMENT on 04-26-2025 Potassium (Unsp spec) [Mass/Vol] 3.7 mmol/L 3.3-5.1 [facility] Protein Test strip Ql (U)Ord ered By: HEALTH ASSESSMENT on 04-26-2025 Protein Ql (U) 30 mg/dl High Negative [facility] RBC Auto (Bld) [#/Vol]Ordere d By: HEALTH ASSESSMENT on 04-26-2025 RBC (Bld) [#/Vol] 5.15 10*6/uL 4.2-5.4 [facility] Screening total cholesterol/ high density lipoprotein (HDL) cholesterol ratioOrdered By: HEALTH ASSESSMENT on 04-26-2025 Cholesterol.total/Haley sterol in HDL [Mass ratio] 2.34 {ratio} [facility] Serum creatinine measurement (mass/volume)Ordered By: HEALTH ASSESSMENT on 04-26-2025 Creatinine [Mass/Vol] 0.76 mg/dL 0.70-1.20 [facility] Serum globulin measurementOr dered By: HEALTH ASSESSMENT on 04-26-2025 Globulin (S) [Mass/Vol] 2.8 g/dL 2.2-4.2 [facility] Serum glucose measurement (m ass/volume)Ordered By: HEALTH ASSESSMENT on 04-26-2025 Glucose [Mass/Vol] 83 mg/dL 70-99 [facility] Serum or plasma alanine mckeon otransferase (ALT) measurementOrdered By: HEALTH ASSESSMENT on 04-26-2025 ALT [Catalytic activity/Vol] 12 U/L <35 [facility] Serum or plasma albumin nikole urement (mass/volume)Ordered By: HEALTH ASSESSMENT on 04-26-2025 Albumin [Mass/Vol] 4.6 g/dL 3.5-5.0 [facility] Serum or plasma albumin/glob ulin mass ratioOrdered By: HEALTH ASSESSMENT on 04-26-2025 Albumin/Globulin [Mass ratio] 1.6 {ratio} 0.9-2.4 [facility] Serum or plasma alkaline chayo sphatase measurementOrdered By: HEALTH ASSESSMENT on 04-26-2025 ALP [Catalytic activity/Vol] 48 U/L 35-104 [facility] Serum or plasma calcium nikole urement (mass/volume)Ordered By: HEALTH ASSESSMENT on 04-26-2025 Calcium [Mass/Vol] 9.7 mg/dL 7.6-11.0 [facility] Serum or plasma cholesterol in HDL measurement (mass/volume)Ordered By: HEALTH ASSESSMENT on 04-26-2025 Cholesterol in HDL [Mass/Vol] 68 mg/dL >40 [facility] Comment on above: National Cholesterol Education Program (NCEP) guidelines:<40 mg/dL: Low HDL-cholesterol (major risk factor for CHD)>= 60 mg/dL: High HDL-cholesterol (negative risk factor for CHD)HDL-cholesterol is affected by a number of factors, e.g. smoking, exercise, hormones, sex and age. Serum or plasma cholesterol measurement (mass/volume)Ordered By: HEALTH ASSESSMENT on 04-26-2025 Cholesterol [Mass/Vol] 158 mg/dL <201 [facility] Comment on above: Cholesterol level, D esirable <200 mg/dLBorderline high cholesterol 200-239 mg/dLHigh cholesterol >=240 mg/dLRecommendations of the NCEP Adult Treatment Panel for the following risk-cutoff thresholds for the [place] population. Serum or plasma urea nitroge n measurement (mass/volume)Ordered By: HEALTH ASSESSMENT on 04-26-2025 Urea nitrogen [Mass/Vol] 9 mg/dL 4- [facility] Serum or plasma uric acid me asurement (mass/volume)Ordered By: [facility] ASSESSMENT on 04-26-2025 Urate [Mass/Vol] 4.6 mg/dL 2.6-6.0 [facility] Comment on above: The drugs N-Acetylcy steine and Metamizole may falsely depress this assay. Sodium levelOrdered By: [facility] ASSESSMENT on 04-26-2025 Sodium [Moles/Vol] 141 mmol/L 133-145 [facility] Total proteinOrdered By: [facility] ASSESSMENT on 04-26-2025 Protein [Mass/Vol] 7.3 g/dL 5.9-8.4 [facility] Triglycerides measurementOrd ered By: HEALTH ASSESSMENT on 04-26-2025 Triglyceride [Mass/Vol] 57 mg/dL <199 [facility] Comment on above: The drugs N-Acetylcy steine and Metamizole may falsely depress this assay. Normal range: <150 mg/dLBorderline High: 150-199 mg/dLHigh: 200-499 mg/dLVery High: >500 mg/dL Urinalysis, Employeeon 04-26 BILIRUBIN URINE Negative Normal Negative [facility] Comment on above: Order Comment: Urine , Random Performed By: #### L 100.0200, L500.2900, L400.0100 #### [facility] [address] [place], [address] Clarity (U) Sl. Cloudy Normal Clear [facility] Comment on above: Order Comment: Urine , Random Performed By: #### L 100.0200, L500.2900, L400.0100 #### [facility] [address] [place], [address] Color (U) Yellow Normal Yellow [facility] Comment on above: Order Comment: Urine , Random Performed By: #### L 100.0200, L500.2900, L400.0100 #### [facility] [address] [place], [address] GLUCOSE, UR Normal Normal Normal [facility] Comment on above: Order Comment: Urine , Random Performed By: #### L 100.0200, L500.2900, L400.0100 #### [facility] [address] [place], [address] KETONE UR 5 mg/dl Abnormal Negative [facility] Comment on above: Order Comment: Urine , Random Performed By: #### L 100.0200, L500.2900, L400.0100 #### [facility] [address] [place], [address] LEUK ESTERASE Negative Normal Negative [facility] Comment on above: Order Comment: Urine , Random Performed By: #### L 100.0200, L500.2900, L400.0100 #### [facility] [address] [place], [address] Nitrite Ql (U) Negative Normal Negative [facility] Comment on above: Order Comment: Urine , Random Performed By: #### L 100.0200, L500.2900, L400.0100 #### [facility] [address] [place], [address] OCCULT BLOOD-UR 50 /ul Abnormal Negative [facility] Comment on above: Order Comment: Urine , Random Performed By: #### L 100.0200, L500.2900, L400.0100 #### [facility] [address] [place], [address] pH UR 6.0 Normal 5.0 - 8.0 [facility] Comment on above: Order Comment: Urine , Random Performed By: #### L 100.0200, L500.2900, L400.0100 #### [facility] [address] [place], [address] PROT DIPSTX 30 mg/dl Abnormal Negative [facility] Comment on above: Order Comment: Urine , Random Performed By: #### L 100.0200, L500.2900, L400.0100 #### [facility] [address] [place], [address] SP.GR. DIPSTX 1.025 Normal 1.002-1.030 [facility] Comment on above: Order Comment: Urine , Random Performed By: #### L 100.0200, L500.2900, L400.0100 #### [facility] [address] [place], [address] UROBILI Normal Normal Normal [facility] Comment on above: Order Comment: Urine , Random Performed By: #### L 100.0200, L500.2900, L400.0100 #### [facility] [address] [place], [address] Urine clarityOrdered By: [facility] ASSESSMENT on 04-26-2025 Clarity (U) Sl. Cloudy Clear [facility] Urine color determinationOrd ered By: HEALTH ASSESSMENT on 04-26-2025 Color (U) Yellow Yellow [facility] Urine glucose detectionOrder ed By: HEALTH ASSESSMENT on 04-26-2025 Glucose Ql (U) Normal mg/dl Normal [facility] Urine leukocyte esterase det ection by dipstickOrdered By: HEALTH ASSESSMENT on 04-26-2025 Leukocyte esterase Test strip Ql (U) Negative Negative [facility] Urine pHOrdered By: HEALTH A SSESSMENT on 04-26-2025 pH (U) 6.0 [pH] 5.0 - 8.0 [facility] Urine specific gravity measu rementOrdered By: HEALTH ASSESSMENT on 04-26-2025 Specific gravity (U) [Rel density] 1.025 1.002-1.030 [facility] Urine urobilinogen measureme ntOrdered By: HEALTH ASSESSMENT on 04-26-2025 Urobilinogen Ql (U) Normal mg/dl Normal [facility] White blood cell (WBC) count Ordered By: HEALTH ASSESSMENT on 04-26-2025 WBC (Bld) [#/Vol] 8.9 10*3/uL 4.4-11.0 [facility] Chiropractic Reporton 2024 Chiropractic Report [facility] [address] [place] [address] OFFICE VISIT Date of Service: 04/04/25 MR#: [id number] Acct: [id number] Name: BARBARA QUINTANILLA Rep #: [id number] : 1990 Provider: JENNIFER Key Age/Sex: 34/F Location: [facility] Status: Signed Intake Vital Signs 03/14/25 15:16 [...] tablet 1 g PO QDAY #30 tabs 07/17/24 07/09/29 Rx omeprazole 40 mg capsule,delayed 40 mg [...] additional social history: Gallo Patient works at [employer] HPI BACK PAIN Chief Complaint: neck and [...] Goals Bar (more content not included)... Normal [facility] Chiropractic Reporton 2024 Chiropractic Report [facility] [address] [place] [address] OFFICE VISIT Date of Service: 03/14/25 MR#: [id number] Acct: [id number] Name: BARBARA QUINTANILLA Rep #: [id number] : 1990 Provider: JENNIFER Key Age/Sex: 34/F Location: [facility] Status: Signed Intake Vital Signs 02/19/25 13:10 07/10/25 15:16 Height 4 ft 11 in 4 [...] additional social history: Gallo Patient works at [employer] Chief Complaint: Neck/Back pain Visit Number: [...] LUMBAR Ke (more content not included)... 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: EMPLOYEE COVID/ [facility] Chief Complaint: chest congest, mucus, WRIGHT, ST [...] Improve lordosis 02/21/25 0811 Date Luis Armando POON Cosigner Signature: Date (if applicable) CC: Normal [facility] Chest PA and Lateralon 01-07 Chest PA and Lateral [facility] [address] [place] [address] Chest PA and Lateral MR#: [id number] Acct: [id number] Name: BARBARA QUINTANILLA Rep #: [id number] : 1990 F 34 From: Rayo Feliciano PCP: Stephanie Kramer, KIA-C Status: REG CLI Study: Chest PA and Lateral Date of Exam: 01/07/25 Exam# [id number] Ordering Dr: Stephanie Kramer NP [employer]-[place] PROCEDURE: CHEST PA AND LATERAL 01/07/2025 REASON [...] evidence of acute cardiopulmonary disease. Reading Location: [place] [address] CC: [employer]-C Stephanie Kramer Phys Assistant: Signed Normal [facility] - Microbiology an d Antimicrobial susceptibilityOrdered By: Luis Armando Scherer on 01-03-2025 SARS-CoV-2 (COVID-19) RNA VON+probe Ql (Unsp spec) Not detected [facility] No Panel InformationOrdered By: Luis Armando Scherer on 01-03-2025 POC Nasal Swab Influenza A,B Not detected [facility] POC Nasal Swab RSV Not detected [facility] Office Visit Reporton 2024 Office Visit Report [facility] [address] [place] [address] OFFICE VISIT Date of Service: 01/03/25 MR#: [id number] Acct: [id number] Patient: BARBARA QUINTANILLA Rep #: [id number] : 1990 Provider: CLEVE Swartz Age/Sex: 34/F Location: [facility] Status: Signed Employer Purchased Covid Test Note: [...] Improve lordosis 01/03/25 1156 Date Luis Armando Villegasignross Signature: Date (if applicable) CC: Normal [facility] Urgent Care Visit Reporton 0 01-03-2025 Urgent Care Visit Report [facility] [address], [address] [place] [address] OFFICE VISIT Date of Service: 01/03/25 MR#: [id number] Acct: [id number] Name: BARBARA QUINTANILLA Rep #: [id number] : 1990 Provider: CLEVE Swartz Age/Sex: 34/F Location: [facility] Status: Signed Intake Vital Signs 12/30/24 11:15 01/03/25 10:56 Height 4 ft 11 in BP 100/60 Blood Pressure Location Lt brachial Position Sitting Respiration 14 Pulse 70 Pulse Source NIBP Temp 98.1 F Temp Source Oral Pulse Oximetry (%) 98 Oxygen Delivery Method room air Intake Visit Reasons: CONGESTION Chief Complaint: chest congest, mucus, WRIGHT, ST Post Acute Care Registered Nurse Required: No Is patient in pain?: No [...] 01/03/25 @ 11:20 by Luis Armando POON, PA) Wears glasses Wears contact lenses Heartburn Breast [...] additional social history: Gallo Patient works at [employer] Female Reproductive History Menstrual Ab induced: 1 [...] drainage methylprednisolon (more content not included)... Normal [facility] Rapid group A Streptococcus antigen assay at point of careOrdered By: Solomon Luz on 12-30-2024 S. pyogenes Ag IA.rapid Ql (Throat) Negative [facility] Urgent Care Visit Reporton 0 12-30-2024 Urgent Care Visit Report [facility] [address] , [address] [place], [place] [id number] OFFICE VISIT Date of Service: 12/30/24 MR#: [id number] Acct: [id number] Name: BARBARA QUINTANILLA Rep #: [id number] : 1990 Provider: [employer]-C Solomon H Brooke f Age/Sex: 34/F Location: [facility] Status: Signed Intake Vital Signs 07/23/24 14:30 [...] tablet 1 g PO QDAY #30 tabs 07/17/2412/05 Rx omeprazole 40 mg capsule,delayed 40 mg PO QDAY #90 caps 07/17/24 Rx release amoxicillin 500 mg tablet 500 mg PO Q12H 10 days #20 tabs 12/30/24 Rx Nurse's Note: Patient has a ST and bilateral ear pain that has been going on for couple days. Left ear is worse then the right. Patient feels like her neck lymph nodes are swollen. [facility] Medical History (Updated 12/30/24 @ 12:18 by Solomon Luz [employer], [employer]-C) Wears glasses Wears contact lenses Heartburn Breast [...] additional social history: Gallo Patient works at [employer] Female Reproductive History Menstrual Ab induced: 1 [...] distress Or (more content not included)... Normal [facility] Hepatitis B Core AB IgMon HEP B CORE,IgM Negative Normal Negative [facility] Comment on above: Result Comment: Perf ormed at: [facility] [address] [id number] Airplane Captain: Gil Alves PhD, Phone: [phone] Performed By: #### L 3890.6100, L3890.6300, L3890.6005, L3100.0440, L509.8000 #### [facility] [address] [place], [address] CTPCRon 09-21-2024 C. trachomatis Interp Normal See CT Interp N [facility] Comment on above: Result Comment: C. t rachomatis DNA not detected. Specimen is presumptive negative for C. trachomatis. A negative result does not preclude C. trachomatis infection because results depend on adequate specimen collection, absence of inhibitors, and sufficient DNA to be detected. See CT Interp N Performed By: #### C TPCR, NGPCR1 #### [place] [address] C.trachomatis PCR Negative Normal Negative [facility] Comment on above: Result Comment: Mole cular (PCR) assay performed on the [employer] 4800 system. Performed By: #### C TPCR, NGPCR1 #### [address] [address] Chlam Source Cervix Normal [facility] Comment on above: Performed By: #### C TPCR, NGPCR1 #### [place] [address] HIV - WCHon 09-21-2024 HIV Non-Reactive Normal Nonreactive [facility] Comment on above: Performed By: #### L 3890.6100, L3890.6300, L3890.6005, L3100.0440, L509.8000 #### [facility] [address] [place], [address] HIV 1 and HIV-2 antibody ass ay with HIV-1 p24 antigen detectionon 09-21-2024 HIV 1+2 Ab+HIV1 p24 Ag IA Ql Non-Reactive Nonreactive [facility] Hepatitis B Surface Antigeno n 09-21-2024 HEP B Surf Ag Non-Reactive Normal Nonreactive [facility] Comment on above: Performed By: #### L 3890.6100, L3890.6300, L3890.6005, L3100.0440, L509.8000 #### [facility] [address] [place], [address] Hepatitis C Antibodyon 09-21 Hepatitis C AB Non-Reactive Normal Nonreactive [facility] Comment on above: Result Comment: Non Reactive: < 0.8 Equivocal: >/= 0.8 to < 1.0 Reactive: >/= 1.0 The CDC requires that a reactive/equivocal HCV antibody result be sent out for confirmation. HCV Quant by PCR testing. Performed By: #### L 3890.6100, L3890.6300, L3890.6005, L3100.0440, L509.8000 #### [facility] [address] [place], [address] L509.8000on 09-21-2024 Syphilis Abs Non-Reactive Normal [facility] Comment on above: Performed By: #### L 3890.6100, L3890.6300, L3890.6005, L3100.0440, L509.8000 #### [facility] [address] [place], [address] [id number] 09-21-2024 GC PCR Source Cervix Normal [facility] Comment on above: Performed By: #### C TPCR, NGPCR1 #### [facility] [address] [place] [address] N. gonorrhoeae (PCR) Negative Normal Negative [facility] Comment on above: Result Comment: Mole cular (PCR) assay performed on the [employer] 4800 System. Performed By: #### C TPCR, NGPCR1 #### [address] [address] N. gonorrhoeae Interp Normal See NG Interp N [facility] Comment on above: Result Comment: N. g onorrhoeae DNA not detected. Specimen is presumptive negative for N. gonorrhoeae. A negative result does not preclude Neisseria gonorrhoeae infection because results depend on adequate specimen collection, absence of inhibitors, and sufficient DNA to be detected. See NG Interp N Performed By: #### C TPCR, NGPCR1 #### [facility] [address] [place] [address] Serum Treponema species anti body detectionon 09-21-2024 Treponema sp Ab Ql (S) Non-Reactive [facility] LABORATORYOrdered By: Myrtle Tompkins on 09-20-2024 C. trachomatis DNA VON+probe Ql (Unsp spec) Negative 2 (09/20/24 4:39 PM) Normal Negative Auto Viro/Sero SS Comment on above: Interpretive [...] be detected. Normal See CT Interp N Auto Viro/Sero SS N. gonorrhoeae DNA VON+probe Ql (Unsp spec) Negative 1 (09/20/24 4:39 PM) Normal Negative Auto Viro/Sero SS Comment on above: Interpretive [...] be detected. Normal See NG Interp N Auto Viro/Sero SS Laboratory - Specimen inform ationOrdered By: Myrtle Tompkins on 09-20-2024 Specimen source Nom (Unsp spec) Cervix (09/20/24 4:39 PM) Normal AH Auto Viro/Sero SS No Panel InformationOrdered By: Solomon Chow on 09-20-2024 Affirm Pathogens DNA Direct Probe Trichomonas vaginalis DNA Probe Negative Darlyn species DNA Probe Negative Gardnerella vaginalis DNA Probe Negative [facility] Brain W/WO Contraston 2023 Brain W/WO Contrast [facility] Imaging Services [address] [place], [place] [address] Brain W/WO Contrast MR#: [id number] Acct: [id number] Name: BARBARA QUINTANILLA Rep #: [id number] : 1990 F 34 From: Marcelino Dunham MD PCP: CHARLY Gerard Status: REG CLI Study: Brain W/WO Contrast Date of Exam: 08/12/24 Exam# [id number] Ordering Dr: Stephanie Kramer NP [facility]-C [id number] EXAM: MR HEAD WITHOUT AND WITH INTRAVENOUS [...] at 7:59 EST , CC: CHARLY Kramer Phys Assistant: Signed Normal [facility] Antimullerian Hormone, Serum on 08-11-2024 AMH, SERUM 6.99 ng/mL Normal . [facility] Comment on above: Result Comment: For assays employing antibodies, the possibility exists for interference by heterophile antibodies in the samples.1 1.Corine Reid Interferences in Immunoassays - still a threat. Clin. Chem. 2000; 46: 9101-0980. This test was developed and its performance characteristics determined by [employer]. It has not been cleared or approved by the Food and Drug Administration. Reference Range: Females 31 - 35y: 0.66 - 8.75 Median 3.00 AMH concentrations of >= 1.06 ng/mL is correlated with a better response to ovarian stimulation, produced more retrievable oocytes and higher odds of live according to Hakaner et al. Fertility and Sterility. 2010: 94:4715-0593. The current AMH test method correlates with [...] exclude an AMH-secreting ovarian tumor. Performed at: [facility] [address] [place] [id number] Airplane Captain: Alfie Taylor MD, Phone: [phone] Performed By: #### L 9167.9949, W7102.3992, W9161.8209, K2893.6300, L509.8000 #### [facility] [address] [place], [place], [address] Brain/Head without Contrasto n 08-08-2024 Brain/Head without Contrast [facility] Imaging Services [address] [place] [address] Brain/Head without Contrast MR#: [id number] Acct: [id number] Name: BARBARA QUINTANILLA Rep #: [id number] : 1990 F 34 From: Smith Hopper MD PCP: ROBERTA GerardC Status: REG CLI Study: Brain/Head without Contrast Date of Exam: 12/27 Exam# [id number] Ordering Dr: Stephanie Kramer NP [facility]-C [id number] STUDY: CT BRAIN WITHOUT CONTRAST REASON FOR [...] at 12:37 EST , CC: CHARLY Kramer Phys Assistant: Signed Normal [facility] CBC-Complete Blood Cnt No Melissa hoang 08-08-2024 Erythrocyte distribution width (RBC) [Ratio] 13.7 % Normal 11.6-14.6 [facility] Comment on above: Performed By: #### L 3890.6100, L3890.6300, L3890.6005, L3100.0440, L509.8000 #### [facility] [address] [place], [address] Hematocrit (Bld) [Volume fraction] 44.6 % Normal 37-47 [facility] Comment on above: Performed By: #### L 3890.6100, L3890.6300, L3890.6005, L3100.0440, L509.8000 #### [facility] [address] [place], [address] Hemoglobin (Bld) [Mass/Vol] 13.7 g/dL Normal 12.0-15.0 [facility] Comment on above: Performed By: #### L 3890.6100, L3890.6300, L3890.6005, L3100.0440, L509.8000 #### [facility] [address] [place], [address] MCH (RBC) [Entitic mass] 26.3 pg Low 27.0-32.0 [facility] Comment on above: Performed By: #### L 3890.6100, L3890.6300, L3890.6005, L3100.0440, L509.8000 #### [facility] [address] [place], [address] MCHC (RBC) [Mass/Vol] 30.7 g/dL Low 32-36 [facility] Comment on above: Performed By: #### L 3890.6100, L3890.6300, L3890.6005, L3100.0440, L509.8000 #### [facility] [address] [place], [address] MCV (RBC) [Entitic vol] 85.8 fL Normal 81-99 [facility] Comment on above: Performed By: #### L 3890.6100, L3890.6300, L3890.6005, L3100.0440, L509.8000 #### [facility] [address] [place], [address] Platelet mean volume (Bld) [Entitic vol] 9.8 fL Normal 6.2-12.0 [facility] Comment on above: Performed By: #### L 3890.6100, L3890.6300, L3890.6005, L3100.0440, L509.8000 #### [facility] [address] [place], [address] Platelets (Bld) [#/Vol] 298 10*3/uL Normal 150-450 [facility] Comment on above: Performed By: #### L 3890.6100, L3890.6300, L3890.6005, L3100.0440, L509.8000 #### [facility] [address] [place], [address] RBC (Bld) [#/Vol] 5.20 10*6/uL Normal 4.2-5.4 [facility] Comment on above: Performed By: #### L 3890.6100, L3890.6300, L3890.6005, L3100.0440, L509.8000 #### [facility] [address] [place], [address] RDW SD 42.5 fl Normal 35.1-43.9 [facility] Comment on above: Performed By: #### L 3890.6100, L3890.6300, L3890.6005, L3100.0440, L509.8000 #### [facility] [address] [place], [address] WBC (Bld) [#/Vol] 10.4 10*3/uL Normal 4.4-11.0 [facility] Comment on above: Performed By: #### L 3890.6100, L3890.6300, L3890.6005, L3100.0440, L509.8000 #### [facility] [address] [place], [address] Comprehensive Metabolic Prof ilon 08-08-2024 Albumin [Mass/Vol] 4.3 g/dL Normal 3.2-5.0 [facility] Comment on above: Order Comment: N Performed By: #### L 3890.6100, L3890.6300, L3890.6005, L3100.0440, L509.8000 #### [facility] [address] [place], [address] Albumin/Globulin [Mass ratio] 1.1 {ratio} Normal 0.9-2.4 [facility] Comment on above: Order Comment: N Performed By: #### L 3890.6100, L3890.6300, L3890.6005, L3100.0440, L509.8000 #### [facility] [address] [place], [address] ALK P 52 U/L Normal 45-117 [facility] Comment on above: Order Comment: N Performed By: #### L 3890.6100, L3890.6300, L3890.6005, L3100.0440, L509.8000 #### [facility] [address] [place], [address] ALT [Catalytic activity/Vol] 21 U/L Normal 13-56 [facility] Comment on above: Order Comment: N Performed By: #### L 3890.6100, L3890.6300, L3890.6005, L3100.0440, L509.8000 #### [facility] [address] [place], [address] AST [Catalytic activity/Vol] 15 U/L Normal 15-37 [facility] Comment on above: Order Comment: N Performed By: #### L 3890.6100, L3890.6300, L3890.6005, L3100.0440, L509.8000 #### [facility] [address] [place], [address] Bilirubin [Mass/Vol] 1.40 mg/dL High 0.20-1.00 [facility] Comment on above: Order Comment: N Result Comment: For patients on eltrombopag therapy, use of Dimension [place] TBIL is not recommended. Performed By: #### L 3890.6100, L3890.6300, L3890.6005, L3100.0440, L509.8000 #### [facility] [address] [place], [address] BUN/CRE 10.7 RATIO Normal 10-20 [facility] Comment on above: Order Comment: N Performed By: #### L 3890.6100, L3890.6300, L3890.6005, L3100.0440, L509.8000 #### [facility] [address] [place], [address] CA,Total 9.9 mg/dL Normal 8.5-10.1 [facility] Comment on above: Order Comment: N Performed By: #### L 3890.6100, L3890.6300, L3890.6005, L3100.0440, L509.8000 #### [facility] [address] [place], [address] Chloride [Moles/Vol] 104 mmol/L Normal 98-107 [facility] Comment on above: Order Comment: N Performed By: #### L 3890.6100, L3890.6300, L3890.6005, L3100.0440, L509.8000 #### [facility] [address] [place], [address] CO2 [Moles/Vol] 27.0 mmol/L Normal 21.0-32.0 [facility] Comment on above: Order Comment: N Performed By: #### L 3890.6100, L3890.6300, L3890.6005, L3100.0440, L509.8000 #### [facility] [address] [place], [address] Creatinine [Mass/Vol] 0.65 mg/dL Normal 0.55-1.02 [facility] Comment on above: Order Comment: N Result Comment: The validity of the calculated GFR GFRAA in patients over 70 years has not been determined. Clinical correlation is essential. Performed By: #### L 3890.6100, L3890.6300, L3890.6005, L3100.0440, L509.8000 #### [facility] [address] [place], [address] EST GFR - AA 133 mL/min Normal >60 [facility] Comment on above: Order Comment: N Result Comment: Afri can Bangladeshi GFR Calc Performed By: #### L 3890.6100, L3890.6300, L3890.6005, L3100.0440, L509.8000 #### [facility] [address] [place], [address] GAP 7 Normal 5-15 [facility] Comment on above: Order Comment: N Performed By: #### L 3890.6100, L3890.6300, L3890.6005, L3100.0440, L509.8000 #### [facility] [address] [place], [address] GFR/1.73 sq M.predicted among non-blacks MDRD (S/P/Bld) [Vol rate/Area] 110 mL/min/{1.73_m2} Normal >60 [facility] Comment on above: Order Comment: N Result Comment: Non- GFR Calc Performed By: #### L 3890.6100, L3890.6300, L3890.6005, L3100.0440, L509.8000 #### [facility] [address] [place], [address] Globulin (S) [Mass/Vol] 3.9 g/dL Normal 2.2-4.2 [facility] Comment on above: Order Comment: N Performed By: #### L 3890.6100, L3890.6300, L3890.6005, L3100.0440, L509.8000 #### [facility] [address] [place], [address] Glucose [Mass/Vol] 87 mg/dL Normal 74-106 [facility] Comment on above: Order Comment: N Performed By: #### L 3890.6100, L3890.6300, L3890.6005, L3100.0440, L509.8000 #### [facility] [address] [place], [address] Potassium [Moles/Vol] 3.3 mmol/L Low 3.5-5.1 [facility] Comment on above: Order Comment: N Performed By: #### L 3890.6100, L3890.6300, L3890.6005, L3100.0440, L509.8000 #### [facility] [address] [place], [address] Sodium [Moles/Vol] 138 mmol/L Normal 136-145 [facility] Comment on above: Order Comment: N Performed By: #### L 3890.6100, L3890.6300, L3890.6005, L3100.0440, L509.8000 #### [facility] [address] [place], [address] T PROT 8.2 g/dL Normal 6.4-8.2 [facility] Comment on above: Order Comment: N Performed By: #### L 3890.6100, L3890.6300, L3890.6005, L3100.0440, L509.8000 #### [facility] [address] [place], [address] Urea nitrogen [Mass/Vol] 7 mg/dL Normal 7-18 [facility] Comment on above: Order Comment: N Performed By: #### L 3890.6100, L3890.6300, L3890.6005, L3100.0440, L509.8000 #### [facility] [address] [place], [address] Folates, (Folic Acid)on FOLATES 17.00 ng/mL Normal 3.1-55.4 [facility] Comment on above: Order Comment: N Performed By: #### L 3890.6100, L3890.6300, L3890.6005, L3100.0440, L509.8000 #### [facility] [address] [place], [address] Follicle Stimulating Hormone on 08-08-2024 FSH 5.9 mIU/mL Normal [facility] Comment on above: Order Comment: N Result Comment: NORMAL REFERENCE RANGES FEMALE FOLLICULAR 2.3 - 12.6 mIU/mL MID-CYCLE PEAK 5.2 - 17.5 mIU/mL LUTEAL 1.7 - 12.9 mIU/mL POST-MENOPAUSAL ON MHT 5.9 - 72.8 mIU/mL NOT ON MHT 12.7 - 132.2 mlU/mL MALE 0.7 - 10.8 mIU/mL Performed By: #### L 3890.6100, L3890.6300, L3890.6005, L3100.0440, L509.8000 #### [facility] [address] [place], [address] Lipid Profileon 08-08-2024 Cholesterol [Mass/Vol] 208 mg/dL High 200 [facility] Comment on above: Order Comment: N Result Comment: <200 mg/dL Desirable 200-240 mg/dL Borderline >240 mg/dL High Risk Performed By: #### L 3890.6100, L3890.6300, L3890.6005, L3100.0440, L509.8000 #### [facility] [address] [place], [address] Cholesterol in HDL [Mass/Vol] 83 mg/dL Normal [facility] Comment on above: Order Comment: N Result Comment: The drugs N-Acetylcysteine and Metamizole may falsely depress this assay. Reference Range HDL <40 mg/dL Low HDL Cholesterol HDL >or= 60 mg/dL High HDL Cholesterol Performed By: #### L 3890.6100, L3890.6300, L3890.6005, L3100.0440, L509.8000 #### [facility] [address] [place], [address] Cholesterol in LDL [Mass/Vol] 106 mg/dL Normal 0-130 [facility] Comment on above: Order Comment: N Performed By: #### L 3890.6100, L3890.6300, L3890.6005, L3100.0440, L509.8000 #### [facility] [address] [place], [address] Cholesterol in VLDL [Mass/Vol] 19 mg/dL Normal 5-40 [facility] Comment on above: Order Comment: N Performed By: #### L 3890.6100, L3890.6300, L3890.6005, L3100.0440, L509.8000 #### [facility] [address] [place], [address] Triglyceride [Mass/Vol] 93 mg/dL Normal [facility] Comment on above: Order Comment: N Result Comment: The drugs N-Acetylcysteine and Metamizole may falsely depress this assay. Serum Triglycerides Reference Interval Normal <150 mg/dL Borderline high 150 - 199 mg/dL High 200 - 499 mg/dL Very High > or = 500 mg/dL Performed By: #### L 3890.6100, L3890.6300, L3890.6005, L3100.0440, L509.8000 #### [facility] [address] [place], [address] Luteinizing Hormoneon 2023 LH 5.0 mIU/mL Normal [facility] Comment on above: Order Comment: N Result Comment: NORMAL REFERENCE RANGES FEMALE FOLLICULAR 1.9 - 26.2 mIU/mL MID-CYCLE PEAK 22.8 - 76.1 mIU/mL LUTEAL 0.6 - 16.6 mIU/mL POST-MENOPAUSAL ON MHT 1.1 - 52.4 mIU/mL NOT ON MHT 8.6 - 61.8 mIU/mL MALE 1.2 - 10.6 mIU/mL Performed By: #### L 3890.6100, L3890.6300, L3890.6005, L3100.0440, L509.8000 #### [facility] [address] [place], [address] Magnesiumon 08-08-2024 Magnesium [Mass/Vol] 2.2 mg/dL Normal 1.6-2.6 [facility] Comment on above: Order Comment: N Performed By: #### L 3890.6100, L3890.6300, L3890.6005, L3100.0440, L509.8000 #### [facility] [address] [place], [address] Vitamin B12on 08-08-2024 Cobalamin (Vitamin B12) [Mass/Vol] 689 pg/mL Normal 211-911 [facility] Comment on above: Performed By: #### L 3890.6100, L3890.6300, L3890.6005, L3100.0440, L509.8000 #### [facility] [address] [place], [address] Vitamin D,25 Hydroxyon 08-08 Vitamin D 25-OH 33.8 ng/mL Normal [facility] Comment on above: Result Comment: Clover min D 25(OH) Status Range Deficiency <20 ng/mL (50nmol/L) Insufficiency 20 - 30 ng/mL (50 - 75 nmol/L) Sufficiency 30 - 100 ng/mL (75 - 250 nmol/L) Toxicity >100 ng/mL (>250 nmol/L) Performed By: #### L 3890.6100, L3890.6300, L3890.6005, L3100.0440, L509.8000 #### [facility] [address] [place], [address] Gastroenterology Visit Repor ton 07-17-2024 Gastroenterology Visit Report [facility] [address] [place] [address] OFFICE VISIT Date of Service: 07/17/24 MR#: [id number] Acct: [id number] Name: BARBARA QUINTANILLA Rep #: [id number] : 1990 Provider: CLEVE Wyman Age/Sex: 34/F Location: [facility] Status: Signed Intake Vital Signs 11/02/23 17:18 [...] pain, gas and bloating. Takes metoclopramide daily. [facility] Medical History (Updated 07/17/24 @ 15:24 by [...] additional social history: Gallo Patient works at [employer] Female Reproductive History Menstrual Ab induced: 1 HPI HPI Chief Complaint: f/u. Details: BARBARA QUINTANILLA, is a 34 F who presents to the office today for f/u. *BGI established 8.21.24 with daily urgent diarrhea, bloating and nausea. Blood work for IBD, Celiac and food allergens wnl. Contacted office with heartburn and n/v. EGD scheduled. GES abnormal and Reglan started for 2 weeks with not much of a change in symptoms. EGD 10.15.24; - Esophageal mucosal changes suggestive of eosinophilic [...] Appearance: average body habitus and well nourished HENMT Head: normal to inspection Ears: hearing grossly [...] bowel so (more content not included)... Normal [facility] SCRN MAMM (CAD)W/SIVAKUMAR BILATo n 07-06-2024 SCRN MAMM (CAD)W/SIVAKUMAR BILAT [facility] Imaging Services [address] [place] [id number] SCRN MAMM (CAD)W/SIVAKUMAR BILAT MR#: [id number] Acct: [id number] Name: BARBARA QUINTANILLA Rep #: [id number] : 1990 F 33 From: Sixto persaud MD PCP: ROBERTA GerardC Status: REG CLI Study: SCRN MAMM (CAD)W/SIVAKUMAR BILAT Date of Exam: 09/28 Exam# [id number] Ordering Dr: Karen Arriola PAStephanieC [id number] MAMMOGRAPHY - BILATERAL SCREENING REASON FOR EXAM: [...] delay biopsy of a clinically suspicious abnormality. [id number] Electronically Signed: Sixto Monge MD at 8:46 EDT , CC: CHARLY Kramer; SAIDA Arriola Phys Assistant: Signed Normal [facility] L3300.0940on 06-27-2024 VIT D,25 HYDROX 29.6 ng/mL Low 30.0-100.0 [facility] Comment on above: Order Comment: Speci men Comment: A duplicate report has been generateddue to demographicSpecimen Comment: update of the patient's Date of ,Age, Gender, and/orSpecimen Comment: Specimen Date. Please review patientresults, referenceSpecimen Comment: intervals, and calculated results thatmay have beenSpecimen Comment: affected by this change. Result Comment: Clover min D deficiency has been defined by the [place] of Medicine and an Endocrine Society practice guideline as a level of serum 25-OH vitamin D less than 20 ng/mL (1,2). The Endocrine Society went on to further define vitamin D insufficiency as a level between 21 and 29 ng/mL (2). 1. IOM ([place] of [employer]). 2010. Dietary reference intakes for calcium and D. [place]: The National Academies Press. 2. Rai MF, Aaron [place], Layne WRIGHT, et al. Evaluation, treatment, and prevention of vitamin D deficiency: an Endocrine Society clinical practice guideline. JCEM. 2010; 96(7):1911-30. Performed By: #### L 3890.6100, L3890.6300, L3890.6005, L3100.0440, L509.8000 #### [facility] [address] [facility] [place], [address] Gastric Emptying Studyon Gastric Emptying Study [facility] Imaging Services [address] [place] [address] Gastric Emptying Study MR#: [id number] Acct: [id number] Name: BARBARA QUINTANILLA Rep #: [id number] : 1990 F 33 From: Magen Paulino PCP: CHARLY Gerard Status: REG CLI Study: Gastric Emptying Study Date of Exam: 06/21/24 Exam# [id number] Ordering Dr: Igor Luke DO [id number] CLINICAL: 33-year-old female with history of abdominal [...] Signed: Magen Cheek DO at 11:59 EDT Reading Location ID and State: [facility] / [place] Tel , Service support , CC: CHARLY Kramer; Igor Luke DO Phys Assistant: Signed Normal [facility] [facility] EGD Reporton 06-19-2024 EGD Report [facility] Medical Records Department [address] [place] [address] EGD Report MR#: [id number] Acct: [id number] Name: BARBARA QUINTANILLA Rep #: [id number] : 1990 33 From: Igor Luke DO PCP: CHARLY Gerard Status:REG PAC Patient Name: Barbara Quintanilla Procedure Date: 06/19/2024 [...] pathology results. Procedure Code(s): --- Professional --- 83067, Esophagogastroduodenos copy, flexible, transoral; with biopsy, single or multiple CPT copyright 2021 [employer]. All rights reserved. The codes documented in this report are preliminary and upon atm manager review may be revised to meet current compliance requirements. Igor Luke DO 06/19/2024 4:02:02 PM This report has been signed electronically. Number of Addenda: 0 Note Initiated On: 06/19/2024 3:40 PM 06/19/24 160 Date Igor Luke (more content not included)... Normal [facility] H Pylori (initial)on 024 H Pylori (initial) -- ---- Patient Age/Sex Location Account Attending Physician ---- BARBARA QUINTANILLA 33/Thomas GROSS [id number] Igor Luke DO ---- Specimen: [id number] Received: 06/20/24 Status: SILVIA Freeman Num: [id number] Spec Type: IMMUNO Subm Dr: Igor Luke DO PHYSICIAN INSTITUTION [place] [address] SPECIMEN INFORMATION: Tissue Source: B- Gastric body biopsy Clinical Info: Abdominal pain Specimen Number: [id number] CPT code: 75484 METHODOLOGY: Deparaffinized sections of prefer/formalin-fixed tissue or [...] developed and their performance characteristics determined by [facility]. They may not have been [...] Maximilian Morris MD 06/21/24 1215 ---- Normal [facility] Comment on above: Performed By: #### L 3890.6100, L3890.6300, L3890.6005, L3100.0440, L509.8000 #### [facility] [address] [place], [address] MR/POSTOP.ANEon 06-19-2024 MR/POSTOP.[facility] Medical Records Department [address] [place] [address] Anesthesia Postop Eval I 06/19/24 1602 MR#: [id number] Acct: [id number] Name: BARBARA QUINTANILLA Rep #: [id number] : 1990 33 From: Gaurav Cary PCP: CHARLY Gerard Status:REG SDC Y Race: C Location: [place] [address] Anesthesia: Postop Eval I Current Vital Signs [...] Anesthesia document: Postop Eval 1 completed: Yes 06/19/241602 Date Gaurav Cunha Signature: Date CC: Signed Normal [facility] MR/[id number] 06-19-2024 MR/POSTOPAN2 [facility] Medical Records Department [address] [place] [address] Anesthesia Postop Eval II 06/19/24 1704 MR#: [id number] Acct: [id number] Name: BARBARA QUINTANILLA Rep #: [id number] : 1990 33 From: Alan Paris MD PCP: Stephanie Kramer, UPPER LEATHER SORTER-C Status[place] [facility] Race: C Location: EN Anesthesia Postop [...] Anesthesia Complication: No 06/19/24 1704 Date Alan Paris MD Cosigner Signature: Date CC: Signed Normal [facility] Surgery Specimen Level Mary 06-19-2024 Surgery Specimen Level IV ---- Patient Age/Sex Location Account Attending Physician ---- BARBARA QUINTANILLA 33/F EN [id number] Igor Luke DO ---- Specimen: [id number] Received: 06/19/24 Status: SILVIA Freeman Num: [id number] Spec Type: EGD BIOPSY Subm Dr: Igor [...] for Helicobacter pylori will be reported separately ([id number]). MICROSCOPIC DESCRIPTION Slides are reviewed. B. The [...] specimen is totally submitted in one cassette. SJ 06/20/2024 TC:3 CPT:66315q9 ---- Patient Age/Sex Location Account Attending Physician ---- BARBARA QUINTANILLA/F RENATO [id number] Igor Luke DO ---- Signed (signature on file) Dr. Maximilian Morris MD 06/21/24 1204 ---- Normal [facility] Comment on above: Performed By: #### L 3890.6100, L3890.6300, L3890.6005, L3100.0440, L509.8000 #### [facility] [address] [place], [address] Lipid Profileon 06-16-2024 Cholesterol [Mass/Vol] 186 mg/dL Normal 200 [facility] Comment on above: Result Comment: <200 mg/dL Desirable 200-240 mg/dL Borderline >240 mg/dL High Risk Performed By: #### L 400.6773 #### [facility] [address] [place], [address] Cholesterol in HDL [Mass/Vol] 76 mg/dL Normal [facility] Comment on above: Result Comment: The drugs N-Acetylcysteine and Metamizole may falsely depress this assay. Reference Range HDL <40 mg/dL Low HDL Cholesterol HDL >or= 60 mg/dL High HDL Cholesterol Performed By: #### L 400.6440 #### [facility] [address] [place], [address] Cholesterol in LDL [Mass/Vol] 98 mg/dL Normal 0-130 [facility] Comment on above: Performed By: #### L 400.6460 #### [facility] [address] [place], [address] Cholesterol in VLDL [Mass/Vol] 12 mg/dL Normal 5-40 [facility] Comment on above: Performed By: #### L 400.7600 #### [facility] [address], [address] Triglyceride [Mass/Vol] 61 mg/dL Normal [facility] Comment on above: Result Comment: The drugs N-Acetylcysteine and Metamizole may falsely depress this assay. Serum Triglycerides Reference Interval Normal <150 mg/dL Borderline high 150 - 199 mg/dL High 200 - 499 mg/dL Very High > or = 500 mg/dL Performed By: #### L 400.7600 #### [facility] [address] [place], [address] Basic Metabolic Profile (BMP )on 06-01-2024 BUN/CRE 15.9 RATIO Normal 10-20 [facility] Comment on above: Order Comment: UPPER LEATHER SORTER TITA ST ORDERED UAC W/C SNP NIA ORDERED BMP Performed By: #### L 400.7600 #### [facility] [address] [place], [address] CA,Total 10.1 mg/dL Normal 8.5-10.1 [facility] Comment on above: Order Comment: UPPER LEATHER SORTER TITA ST ORDERED UAC W/C SNP NIA ORDERED BMP Performed By: #### L 400.7600 #### [facility] [address] [place], [address] Chloride [Moles/Vol] 102 mmol/L Normal 98-107 [facility] Comment on above: Order Comment: UPPER LEATHER SORTER MA ST ORDERED UAC W/C SNP NIA ORDERED BMP Performed By: #### L 400.7600 #### [facility] [address] [place], [address] CO2 [Moles/Vol] 30.0 mmol/L Normal 21.0-32.0 [facility] Comment on above: Order Comment: UPPER LEATHER SORTER TITA ST ORDERED UAC W/C SNP NIA ORDERED BMP Performed By: #### L 400.7600 #### [facility] [address] [place], [address] Creatinine [Mass/Vol] 0.63 mg/dL Normal 0.55-1.02 [facility] Comment on above: Order Comment: UPPER LEATHER SORTER TITA PETERS ORDERED UAC W/C SNP NIA ORDERED BMP Result Comment: The validity of the calculated GFR GFRAA in patients over 70 years has not been determined. Clinical correlation is essential. Performed By: #### L 400.7600 #### [facility] [address] [place], [address] EST GFR - AA 139 mL/min Normal >60 [facility] Comment on above: Order Comment: UPPER LEATHER SORTER TITA PETERS ORDERED UAC W/C SNP NIA ORDERED BMP Result Comment: Afri can [place] GFR Calc Performed By: #### L 400.7600 #### [facility] [address] [place], [address] GAP 4 Low 5-15 [facility] Comment on above: Order Comment: UPPER LEATHER SORTER TITA PETERS ORDERED UAC W/C SNP NIA ORDERED BMP Performed By: #### L 400.7600 #### [facility] [address] [place], [address] GFR/1.73 sq M.predicted among non-blacks MDRD (S/P/Bld) [Vol rate/Area] 115 mL/min/{1.73_m2} Normal >60 [facility] Comment on above: Order Comment: UPPER LEATHER SORTER TITA PETERS ORDERED UAC W/C SNP NIA ORDERED BMP Result Comment: Non- GFR Calc Performed By: #### L 400.7600 #### [facility] [address] [place], [address] Glucose [Mass/Vol] 82 mg/dL Normal 74-106 [facility] Comment on above: Order Comment: UPPER LEATHER SORTER TITA ST ORDERED UAC W/C SNP NIA ORDERED BMP Performed By: #### L 400.7600 #### [facility] [address] [place], [address] Potassium [Moles/Vol] 4.3 mmol/L Normal 3.5-5.1 [facility] Comment on above: Order Comment: UPPER LEATHER SORTER TITA PETERS ORDERED UAC W/C SNP NIA ORDERED BMP Performed By: #### L 400.7600 #### [facility] [address] [place], [address] Sodium [Moles/Vol] 136 mmol/L Normal 136-145 [facility] Comment on above: Order Comment: UPPER LEATHER SORTER TITA ST ORDERED UAC W/C SNP NIA ORDERED BMP Performed By: #### L 400.7600 #### [facility] [address] [place], [address] Urea nitrogen [Mass/Vol] 10 mg/dL Normal 7-18 [facility] Comment on above: Order Comment: UPPER LEATHER SORTER TITA ST ORDERED UAC W/C SNP NIA ORDERED BMP Performed By: #### L 400.7600 #### [facility] [address] [place], [address] Urinalysis, Completeon 06-01 EPI,SQUAMOUS 0-5 SEEN Normal 5-10 [facility] Comment on above: Order Comment: UPPER LEATHER SORTER TITA ST ORDERED UAC W/C SNP NIA ORDERED BMPCLEAN CATCH Performed By: #### L 400.7600 #### [facility] [address] [place], [address] BACTERIA 0 SEEN Normal None Seen [facility] Comment on above: Order Comment: UPPER LEATHER SORTER TITA ST ORDERED UAC W/C SNP NIA ORDERED BMPCLEAN CATCH Performed By: #### L 400.7600 #### [facility] [address] [place], [address] Mucus Ql (Urine sed) 0 SEEN Normal [facility] Comment on above: Order Comment: UPPER LEATHER SORTER TITA ST ORDERED UAC W/C SNP NIA ORDERED BMPCLEAN CATCH Performed By: #### L 400.7600 #### [facility] [address] [place], [address] RBC 0 SEEN Normal 0-5 [facility] Comment on above: Order Comment: UPPER LEATHER SORTER TITA ORDERED [facility] W/C LAKISHA KRAMER ORDERED BMPCLEAN CATCH Performed By: #### L 400.7600 #### [facility] [address] [place], [address] WBC 0 SEEN Normal 0-5 [facility] Comment on above: Order Comment: UPPER LEATHER SORTER TITA PETERS ORDERED [facility] W/C LAKISHA KRAMER ORDERED BMPCLEAN CATCH Performed By: #### L 400.7600 #### [facility] [address] [place], [address] Abdomen Completeon 4 Abdomen Complete [facility] Imaging Services [address] [place] [address] Abdomen Complete MR#: [id number] Acct: [id number] Name: BARBARA QUINTANILLA Rep #: [id number] : 1990 F 33 From: Sixto persaud MD PCP: CHARLY Gerard Status: REG CLI Study: Abdomen Complete Date of Exam: 05/31/24 Exam# [id number] Ordering Dr: ELDER CORADO [id number] STUDY: ABDOMINAL ULTRASOUND REASON FOR EXAM: Female, [...] 8:05 EDT Reading Location ID and State: [address] [place] [address] , Service support , CC: CHARLY Kramer; SARAH MOON Phys Assistant: Signed Normal [facility] CBC-Complete Blood Cnt No Di ffon 05-23-2024 Erythrocyte distribution width (RBC) [Ratio] 13.0 % Normal 11.6-14.6 [facility] Comment on above: Performed By: #### L 116.5630 #### [facility] [place], [address] Hematocrit (Bld) [Volume fraction] 44.3 % Normal 37-47 [facility] Comment on above: Performed By: #### L 400.7600 #### [facility] [address] [place], [address] Hemoglobin (Bld) [Mass/Vol] 14.1 g/dL Normal 12.0-15.0 [facility] Comment on above: Performed By: #### L 400.7600 #### [facility] [address] [place], [address] MCH (RBC) [Entitic mass] 26.3 pg Low 27.0-32.0 [facility] Comment on above: Performed By: #### L 400.7600 #### [facility] [address] [place], [address] MCHC (RBC) [Mass/Vol] 31.8 g/dL Low 32-36 [facility] Comment on above: Performed By: #### L 400.7600 #### [facility] [address] [place], [address] MCV (RBC) [Entitic vol] 82.5 fL Normal 81-99 [facility] Comment on above: Performed By: #### L 400.7600 #### [facility] [address] [place], [address] Platelet mean volume (Bld) [Entitic vol] 9.8 fL Normal 6.2-12.0 [facility] Comment on above: Performed By: #### L 400.7600 #### [facility] [address] [place], [address] Platelets (Bld) [#/Vol] 168 10*3/uL Normal 150-450 [facility] Comment on above: Performed By: #### L 400.7600 #### [facility] [address] [place], [address] RBC (Bld) [#/Vol] 5.37 10*6/uL Normal 4.2-5.4 [facility] Comment on above: Performed By: #### L 400.7600 #### [facility] [address] [place], [address] RDW SD 39.2 fl Normal 35.1-43.9 [facility] Comment on above: Performed By: #### L 400.7600 #### [facility] [address] [facility] [place], [address] WBC (Bld) [#/Vol] 4.8 10*3/uL Normal 4.4-11.0 [facility] Comment on above: Performed By: #### L 400.7600 #### [facility] [address] [place], [address] CVFLURVon 05-23-2024 FLU A PCR Negative Normal Negative [facility] Comment on above: Performed By: #### C VFLURV #### [address] [address] FLU B PCR Negative Normal Negative [facility] Comment on above: Performed By: #### C VFLURV #### [address] [address] RSV PCR Negative Normal Negative [facility] Comment on above: Performed By: #### C VFLURV #### [address] [address] SARS-CoV-2 (COVID-19) RNA VON+probe Ql (Unsp spec) Negative Normal Negative [facility] Comment on above: Result Comment: Resu lts [...] Performed By: #### C VFLURV #### [facility] [place] [place] [address] [place], [place] [address] Comprehensive Metabolic Prof [facility] 05-23-2024 Albumin [Mass/Vol] 3.5 g/dL Normal 3.2-5.0 [facility] Comment on above: Performed By: #### L 400.7600 #### [facility] [address] [place], [address] Albumin/Globulin [Mass ratio] 0.9 {ratio} Normal 0.9-2.4 [facility] Comment on above: Performed By: #### L 400.7600 #### [facility] [address] [place], [address] ALK P 52 U/L Normal 45-117 [facility] Comment on above: Performed By: #### L 400.7600 #### [facility] [address] [place], [address] ALT [Catalytic activity/Vol] 30 U/L Normal 13-56 [facility] Comment on above: Performed By: #### L 400.7600 #### [facility] [address] [place], [address] AST [Catalytic activity/Vol] 26 U/L Normal 15-37 [facility] Comment on above: Performed By: #### L 400.7600 #### [facility] [address] [place], [address] Bilirubin [Mass/Vol] 0.90 mg/dL Normal 0.20-1.00 [facility] Comment on above: Result Comment: For patients on eltrombopag therapy, use of Dimension [place] TBIL is not recommended. Performed By: #### L 400.7600 #### [facility] [address] [place], [address] BUN/CRE 16.1 RATIO Normal 10-20 [facility] Comment on above: Performed By: #### L 400.7600 #### [facility] [address] [place], [address] CA,Total 9.4 mg/dL Normal 8.5-10.1 [facility] Comment on above: Performed By: #### L 400.7600 #### [facility] [address] [place], [address] Chloride [Moles/Vol] 104 mmol/L Normal 98-107 [facility] Comment on above: Performed By: #### L 400.7600 #### [facility] [address] [place], [address] CO2 [Moles/Vol] 26.0 mmol/L Normal 21.0-32.0 [facility] Comment on above: Performed By: #### L 400.7600 #### [facility] [address] [place], [address] Creatinine [Mass/Vol] 0.62 mg/dL Normal 0.55-1.02 [facility] Comment on above: Result Comment: The validity of the calculated GFR GFRAA in patients over 70 years has not been determined. Clinical correlation is essential. Performed By: #### L 400.7600 #### [facility] [address] [place], [address] EST GFR - AA 141 mL/min Normal >60 [facility] Comment on above: Result Comment: Afri can [place] GFR Calc Performed By: #### L 400.7600 #### [facility] [address] [place], [address] GAP 11 Normal 5-15 [facility] Comment on above: Performed By: #### L 400.7600 #### [facility] [address] [place], [address] GFR/1.73 sq M.predicted among non-blacks MDRD (S/P/Bld) [Vol rate/Area] 116 mL/min/{1.73_m2} Normal >60 [facility] Comment on above: Result Comment: Non- GFR Calc Performed By: #### L 400.7600 #### [facility] [address] [place], [address] Globulin (S) [Mass/Vol] 3.7 g/dL Normal 2.2-4.2 [facility] Comment on above: Performed By: #### L 400.7600 #### [facility] [address] [place], [address] Glucose [Mass/Vol] 92 mg/dL Normal 74-106 [facility] Comment on above: Performed By: #### L 400.7600 #### [facility] [address] [place], [address] Potassium [Moles/Vol] 3.3 mmol/L Low 3.5-5.1 [facility] Comment on above: Performed By: #### L 400.7600 #### [facility] [address] [place], [address] Sodium [Moles/Vol] 141 mmol/L Normal 136-145 [facility] Comment on above: Performed By: #### L 400.7600 #### [facility] [address] [place], [address] T PROT 7.2 g/dL Normal 6.4-8.2 [facility] Comment on above: Performed By: #### L 400.7600 #### [facility] [address] [place], [address] Urea nitrogen [Mass/Vol] 10 mg/dL Normal 7-18 [facility] Comment on above: Performed By: #### L 400.7600 #### [facility] [address] [place], [place], [address] LABORATORYOrdered By: Dillan Dubon on 05-23-2024 FLUAV [...] (TSH)on 05-23-2024 TSH 2.650 uIU/mL Normal 0.358-3.740 [facility] Comment on above: Performed By: #### L 400.7600 #### [facility] [address] [place], [place], [address] Basophil percentageOrdered B y: Stephanie Kramer on 11-10-2023 Bilirubin [Mass/Vol] 0.90 mg/dL 0.20-1.00 [facility] Comment on above: For patients on eltr ombopag therapy, use of Dim[place] TBIL is not recommended. Chloride [Moles/Vol] 105 mmol/L 98-107 [facility] Glucose [Mass/Vol] 87 mg/dL 74-106 [facility] Hemoglobin (Bld) [Mass/Vol] 13.4 g/dL 12.0-15.0 [facility] Potassium [Moles/Vol] 4.0 mmol/L 3.5-5.1 [facility] Protein [Mass/Vol] 7.2 g/dL 6.4-8.2 [facility] Sodium [Moles/Vol] 141 mmol/L 136-145 [facility] WBC (Bld) [#/Vol] 9.4 10*3/uL 4.4-11.0 [facility] Determination of erythrocyte mean corpuscular volume (MCV)Ordered By: Stephanie Kramer on 11-10-2023 MCV (RBC) [Entitic vol] 83.4 fL 81-99 [facility] Erythrocyte distribution wid th ratioOrdered By: Stephanie Kramer on 11-10-2023 Erythrocyte distribution width (RBC) [Ratio] 13.1 % 11.6-14.6 [facility] Erythrocyte distribution wid th standard deviationOrdered By: Stephanie Kramer on 11-10-2023 Erythrocyte distribution width (RBC) [Entitic vol] 39.4 fL 35.1-43.9 [facility] Hematocrit Auto (Bld) [Volum e fraction]Ordered By: Stephanie Kramer on 11-10-2023 Hematocrit (Bld) [Volume fraction] 43.3 % 37-47 [facility] Iron measurement (mass/mass) Ordered By: Stephanie Kramer on 11-10-2023 Iron (Unsp spec) [Mass/Mass] 78 ug/dL 50-170 [facility] - Chemistry and C hemistry - challengeOrdered By: Stephanie Kramer on 11-10-2023 Albumin/Globulin [Mass ratio] 1.2 {ratio} 0.9-2.4 [facility] ALP [Catalytic activity/Vol] 38 U/L 45-117 [facility] ALT [Catalytic activity/Vol] 18 U/L 13-56 [facility] CO2 [Moles/Vol] 29.0 mmol/L 21.0-32.0 [facility] Cobalamin (Vitamin B12) [Mass/Vol] 872 pg/mL 211-911 [facility] Globulin (S) [Mass/Vol] 3.3 g/dL 2.2-4.2 [facility] Magnesium [Mass/Vol] 2.1 mg/dL 1.6-2.6 [facility] Urea nitrogen/Creatinine [Mass ratio] 18.4 mg/mg 10-20 [facility] - Hematology and Cell countsOrdered By: Stephanie Kramer on 11-10-2023 MCH (RBC) [Entitic mass] 25.8 pg 27.0-32.0 [facility] MCHC (RBC) [Mass/Vol] 30.9 g/dL 32-36 [facility] Platelet mean volume (Bld) [Entitic vol] 10.0 fL 6.2-12.0 [facility] Platelets (Bld) [#/Vol] 310 10*3/uL 150-450 [facility] No Panel InformationOrdered By: Stephanie Kramer on 11-10-2023 Estimated GFR (MDRD) Amer 134 mL/min >60 [facility] Comment on above: GFR Calc Estimated GFR (MDRD) Non-Af Amer 110 mL/min >60 [facility] Comment on above: Non- GFR Calc Folate 6.40 ng/mL 3.1-55.4 [facility] Total Iron Binding Capacity 297 ug/dL 250-450 [facility] Vitamin D 25-Hydroxy 35.8 ng/mL [facility] Comment on above: Vitamin D 25(OH) Sta tus Range Deficiency <20 ng/mL (50nmol/L) Insufficiency 20 - 30 ng/mL (50 - 75 nmol/L) Sufficiency 30 - 100 ng/mL (75 - 250 nmol/L) Toxicity >100 ng/mL (>250 nmol/L) RBC Auto (Bld) [#/Vol]Ordere d By: Stephanie Kramer on 11-10-2023 RBC (Bld) [#/Vol] 5.19 10*6/uL 4.2-5.4 [facility] Serum or plasma calcium nikole urement (mass/volume)Ordered By: Stephanie Kramer on 11-10-2023 Calcium [Mass/Vol] 8.7 mg/dL 8.5-10.1 [facility] Serum or plasma creatinine m easurement (mass/volume)Ordered By: Stephanie Kramer on 11-10-2023 Creatinine [Mass/Vol] 0.65 mg/dL 0.55-1.02 [facility] Comment on above: The validity of the calculated GFR & GFRAA in patients over 70 years has not been determined. Clinical correlation is essential. Serum or plasma iron saturat ion measurement (mass fraction)Ordered By: Stephanie Kramer on 11-10-2023 Iron saturation [Mass fraction] 26.3 % 15.0-55.0 [facility] Serum or plasma thyroid stim ulating hormone (TSH) measurement (units/volume)Ordered By: Stephanie Kramer on 11-10-2023 TSH Qn 0.55 uIU/mL 0.358-3.74 [facility] Serum or plasma urea nitroge n measurement (mass/volume)Ordered By: Stephanie Kramer on 11-10-2023 Urea nitrogen [Mass/Vol] 12 mg/dL 7-18 [facility] Thin prep Papanicolaou smear with manual screeningOrdered By: Stephanie Kramer on 11-10-2023 Thin prep Papanicolaou smear with manual screening 3.9 g/dL 3.2-5.0 [facility] Thin prep Papanicolaou smear with manual screening 11 U/L 15-37 [facility] Thin prep Papanicolaou smear with manual screening 7 5-15 [facility] Thin prep Papanicolaou smear with manual screening 1.07 ng/dL 0.76-1.46 [facility] Erythrocyte sedimentation ra teOrdered By: Jed Harp on 10-31-2023 ESR (Bld) [Velocity] 15 mm/h 0-30 [facility] Basophil percentageOrdered B y: Stephanie Kramer on 05-31-2023 Amylase [Catalytic activity/Vol] 33 U/L 25-115 [facility] Bilirubin [Mass/Vol] 0.70 mg/dL 0.20-1.00 [facility] Comment on above: For patients on eltr ombopag therapy, use of Dimension [place] TBIL is not recommended. Chloride [Moles/Vol] 107 mmol/L 98-107 [facility] Glucose [Mass/Vol] 90 mg/dL 74-106 [facility] Potassium [Moles/Vol] 3.7 mmol/L 3.5-5.1 [facility] Protein [Mass/Vol] 7.3 g/dL 6.4-8.2 [facility] Sodium [Moles/Vol] 140 mmol/L 136-145 [facility] WBC (Bld) [#/Vol] 6.8 10*3/uL 4.4-11.0 [facility] Blood erythrocytes count (nu mber/volume)Ordered By: Stephanie Kramer on 05-31-2023 RBC (Bld) [#/Vol] 5.00 10*6/uL 4.2-5.4 [facility] Blood hemoglobin measurement (mass/volume)Ordered By: Stephanie Kramer on 05-31-2023 Hemoglobin (Bld) [Mass/Vol] 13.2 g/dL 12.0-15.0 [facility] Blood platelet mean volumeOr dered By: Stephanie Kramer on 05-31-2023 Platelet mean volume (Bld) [Entitic vol] 10.3 fL 6.2-12.0 [facility] Chocolate RASTOrdered By: Cristina Kramer on 05-31-2023 Chocolate IgE Qn (S) <0.10 kU/L Class 0 [facility] Comment on above: Effective June 06, 2023 [id number] Allergen Profile, BasicFood be made non-orderable. [facility] offers [id number](14). Determination of erythrocyte mean corpuscular volume (MCV)Ordered By: Stephanie Kramer on 05-31-2023 MCV (RBC) [Entitic vol] 86.6 fL 81-99 [facility] Hematocrit Auto (Bld) [Volum e fraction]Ordered By: Stephanie Kramer on 09-26-2023 Hematocrit (Bld) [Volume fraction] 43.3 % 37-47 [facility] Iron measurement (mass/mass) Ordered By: Stephanie Kramer on 05-31-2023 Iron (Unsp spec) [Mass/Mass] 33 ug/dL 50-170 [facility] Laboratory - Chemistry and C hemistry - challengeOrdered By: Stephanie Kramer on 05-31-2023 ALP [Catalytic activity/Vol] 51 U/L 45-117 [facility] ALT [Catalytic activity/Vol] 22 U/L 13-56 [facility] CO2 [Moles/Vol] 27.0 mmol/L 21.0-32.0 [facility] Globulin (S) [Mass/Vol] 3.7 g/dL 2.2-4.2 [facility] Lipase [Catalytic activity/Vol] 26 U/L 13-75 [facility] Comment on above: Please note:LIPASE r evised reference range effective 22. New Lipase methodology. Expected to produce lower values than the previous assay method. NEW Reference Range: 13 - 75 U/L Urea nitrogen/Creatinine [Mass ratio] 16.8 mg/mg 10-20 [facility] Laboratory - Hematology and Cell countsOrdered By: Stephanie Kramer on 05-31-2023 Erythrocyte distribution width (RBC) [Entitic vol] 40.9 fL 35.1-43.9 [facility] Erythrocyte distribution width (RBC) [Ratio] 13.2 % 11.6-14.6 [facility] MCH (RBC) [Entitic mass] 26.4 pg 27.0-32.0 [facility] Laboratory - Miscellaneous t estsOrdered By: Stephanie Kramer on 05-31-2023 Service comment ([facility] spec) [Interp] Comment . [facility] Comment on above: Levels of Specific [...] 05-31-2023 MCHC (RBC) [Mass/Vol] 30.5 g/dL 32-36 [facility] No Panel InformationOrdered By: Stephanie Kramer on 05-31-2023 Anti-Gliadin IgA Antibody 8 units 0-19 [facility] Comment on above: Negative 0 - 19 Weak Positive 20 - 30 Moderate to Strong Positive >30 Anti-Gliadin IgG Antibody 2 units 0-19 [facility] Comment on above: Negative 0 - 19 Weak Positive 20 - 30 Moderate to Strong Positive >30 Estimated GFR (MDRD) Amer 149 mL/min >60 [facility] Comment on above: GFR Calc Estimated GFR (MDRD) Non-Af Amer 123 mL/min >60 [facility] Comment on above: Non- GFR Calc [employer] Allergens (RAST) Negative . [facility] Comment on above: Allergens in this mi x are: Blue mussel Fish Brandon Shrimp TunaEffective June 06, 2023 [id number] Food Mix(Seafoods) will be made non-orderable. [facility] [id number] Allergens(5). Total Iron Binding Capacity 330 ug/dL 250-450 [facility] Platelets bldOrdered By: Patricia Kramer on 05-31-2023 Platelets (Bld) [#/Vol] 212 10*3/uL 150-450 [facility] Serum beef IgE antibody assa y (units/volume)Ordered By: Stephanie Kramer on 05-31-2023 Beef IgE Qn (S) <0.10 kU/L Class 0 [facility] Serum cheese cheddar type Ig E antibody assay (units/volume)Ordered By: Stephanie Kramer on 05-31-2023 Cheese cheddar type IgE Qn (S) <0.10 kU/L Class 0 [facility] Comment on above: Performed at: [address] [id number] Director: Camilo Major MD, Phone: [phone] Serum chicken IgE antibody a ssay (units/volume)Ordered By: Stephanie Kramer on 05-31-2023 Chicken IgE Qn (S) <0.10 kU/L Class 0 [facility] Serum corn IgE antibody assa y (units/volume)Ordered By: Stephanie Kramer on 05-31-2023 [place] IgE Qn (S) <0.10 kU/L Class 0 [facility] Serum cow milk IgE antibody assay (units/volume)Ordered By: Stephanie Kramer on 05-31-2023 Cow milk IgE Qn (S) <0.10 kU/L Class 0 [facility] Serum egg white IgE antibody assay (units/volume)Ordered By: Stephanie Kramer on 05-31-2023 Egg white IgE Qn (S) <0.10 kU/L Class 0 [facility] Serum egg yolk IgE antibody assay (units/volume)Ordered By: Stephanie Kramer on 05-31-2023 Egg yolk IgE Qn (S) <0.10 kU/L Class 0 [facility] Serum gluten IgE antibody as say (units/volume)Ordered By: Stephanie Kramer on 05-31-2023 Gluten IgE Qn (S) <0.10 kU/L Class 0 [facility] Serum or plasma albumin nikole urement (mass/volume)Ordered By: Stephanie Kramer on 05-31-2023 Albumin [Mass/Vol] 3.6 g/dL 3.2-5.0 [facility] Serum or plasma albumin/glob ulin mass ratioOrdered By: Stephanie Kramer on 05-31-2023 Albumin/Globulin [Mass ratio] 1.0 {ratio} 0.9-2.4 [facility] Serum or plasma calcium nikole urement (mass/volume)Ordered By: Stephanie Kramer on 05-31-2023 Calcium [Mass/Vol] 8.7 mg/dL 8.5-10.1 [facility] Serum or plasma creatinine m easurement (mass/volume)Ordered By: Stephanie Kramer on 05-31-2023 Creatinine [Mass/Vol] 0.60 mg/dL 0.55-1.02 [facility] Comment on above: The validity of the calculated GFR & GFRAA in patients over 70 years has not been determined. Clinical correlation is essential. Serum or plasma ferritin misbah surement (mass/volume)Ordered By: Stephanie Kramer on 05-31-2023 Ferritin [Mass/Vol] 79 ng/mL 8-252 [facility] Serum or plasma iron saturat ion measurement (mass fraction)Ordered By: Stephanie Kramer on 05-31-2023 Iron saturation [Mass fraction] 10.0 % 15.0-55.0 [facility] Serum or plasma urea nitroge n measurement (mass/volume)Ordered By: Stephanie Kramer on 05-31-2023 Urea nitrogen [Mass/Vol] 10 mg/dL 7-18 [facility] Serum peanut IgE antibody as say (units/volume)Ordered By: Stephanie Kramer on 05-31-2023 Peanut IgE Qn (S) <0.10 kU/L Class 0 [facility] Serum pork IgE antibody assa y (units/volume)Ordered By: Stephanie Kramer on 05-31-2023 Pork IgE Qn (S) <0.10 kU/L Class 0 [facility] Serum soybean IgE antibody a ssay (units/volume)Ordered By: Stephanie Kramer on 05-31-2023 Soybean IgE Qn (S) <0.10 kU/L Class 0 [facility] Serum tissue transglutaminas e IgA antibody assay (units/volume)Ordered By: Stephanie Kramer on 05-31-2023 tTG IgA Qn (S) <2 U/mL 0-3 [facility] Comment on above: Negative 0 - 3 Weak Positive 4 - 10 Positive >10 Tissue Transglutaminase (tTG) has been identified as the endomysial antigen. Studies have demonstr- ated that endomysial IgA antibodies have over 99% specificity for gluten sensitive enteropathy.Performed at: [address] [id number] Director: Gil Alves PhD, Phone: [phone] Serum wheat IgE antibody ass ay (units/volume)Ordered By: Stephanie Kramer on 05-31-2023 Wheat IgE Qn (S) <0.10 kU/L Class 0 [facility] Serum white potato specific IgE antibody assayOrdered By: Stephanie Kramer on 05-31-2023 Potato IgE Qn (S) <0.10 kU/L Class 0 [facility] Serum whole egg IgE antibody assay (units/volume)Ordered By: Stephanie Kramer on 05-31-2023 Whole Egg IgE Qn (S) <0.10 kU/L Class 0 [facility] Thin prep Papanicolaou smear with manual screeningOrdered By: Stephanie Kramer on 05-31-2023 Thin prep Papanicolaou smear with manual screening 12 U/L 15-37 [facility] Thin prep Papanicolaou smear with manual screening 6 5-15 [facility] Laboratory - Microbiology an d Antimicrobial susceptibilityon 04-28-2023 SARS-CoV-2 (COVID-19) RNA VON+probe Ql (Unsp spec) Not detected [facility] No Panel Informationon 04-28 Influenza Types A,B Rapid (Clinic) Not detected [facility] Absolute lymphocyte countOrd ered By: HEALTH ASSESSMENT on 04-21-2023 Lymphocytes Auto (Unsp spec) [#/Vol] 2.22 10*3/uL 0.83-4.51 [facility] Absolute reticulocyte countO rdered By: HEALTH ASSESSMENT on 04-21-2023 Reticulocytes (Bld) [#/Vol] 0.00 10*3/uL 0-5 [facility] Basophil percentageOrdered B y: HEALTH ASSESSMENT on 04-21-2023 Basophil percentage 2.8 mg/dL 2.5-4.9 [facility] Bilirubin [Mass/Vol] 1.30 mg/dL 0.20-1.00 [facility] Comment on above: For patients on eltr ombopag therapy, use of Dimension [place] TBIL is not recommended. Chloride [Moles/Vol] 106 mmol/L 98-107 [facility] Cholesterol [Mass/Vol] 159 mg/dL <200 [facility] Comment on above: <200 mg/dL Desirable 200-240 mg/dL Borderline >240 mg/dL High Risk Glucose [Mass/Vol] 86 mg/dL 74-106 [facility] LDH [Catalytic activity/Vol] 146 U/L 84-246 [facility] Neutrophils (Bld) [#/Vol] 4.3 10*3/uL 2.0-7.7 [facility] Potassium [Moles/Vol] 3.5 mmol/L 3.5-5.1 [facility] Protein [Mass/Vol] 7.7 g/dL 6.4-8.2 [facility] Sodium [Moles/Vol] 138 mmol/L 136-145 [facility] Triglyceride [Mass/Vol] 83 mg/dL <199 [facility] Comment on above: The drugs N-Acetylcy steine and Metamizole may falsely depress this assay.Serum Triglycerides Reference Interval Normal <150 mg/dL Borderline high 150 - 199 mg/dL High 200 - 499 mg/dL Very High > or = 500 mg/dL WBC (Bld) [#/Vol] 7.1 10*3/uL 4.4-11.0 [facility] Bilirubin Test strip Ql (U)O rdered By: HEALTH ASSESSMENT on 04-21-2023 Bilirubin Ql (U) Negative Negative [facility] Blood erythrocytes count (nu mber/volume)Ordered By: HEALTH ASSESSMENT on 04-21-2023 RBC (Bld) [#/Vol] 5.16 10*6/uL 4.2-5.4 [facility] Blood hemoglobin measurement (mass/volume)Ordered By: HEALTH ASSESSMENT on 04-21-2023 Hemoglobin (Bld) [Mass/Vol] 13.7 g/dL 12.0-15.0 [facility] Blood platelet mean volumeOr dered By: HEALTH ASSESSMENT on 04-21-2023 Platelet mean volume (Bld) [Entitic vol] 9.9 fL 6.2-12.0 [facility] Determination of erythrocyte mean corpuscular volume (MCV)Ordered By: HEALTH ASSESSMENT on 04-21-2023 MCV (RBC) [Entitic vol] 85.9 fL 81-99 [facility] Direct bilirubinOrdered By: HEALTH ASSESSMENT on 04-21-2023 Bilirubin.direct [Mass/Vol] 0.30 mg/dL 0.00-0.30 [facility] Hematocrit Auto (Bld) [Volum e fraction]Ordered By: HEALTH ASSESSMENT on 04-21-2023 Hematocrit (Bld) [Volume fraction] 44.3 % 37-47 [facility] Ketones Test strip Ql (U)Ord ered By: HEALTH ASSESSMENT on 04-21-2023 Ketones Ql (U) 5 mg/dl Negative [facility] Laboratory - Chemistry and C hemistry - challengeOrdered By: HEALTH ASSESSMENT on 04-21-2023 ALP [Catalytic activity/Vol] 43 U/L 45-117 [facility] ALT [Catalytic activity/Vol] 17 U/L 13-56 [facility] Cholesterol.total/Haley sterol in HDL [Mass ratio] 2.60 {ratio} [facility] CO2 [Moles/Vol] 27.0 mmol/L 21.0-32.0 [facility] Globulin (S) [Mass/Vol] 3.6 g/dL 2.2-4.2 [facility] Urea nitrogen/Creatinine [Mass ratio] 11.2 mg/mg 10-20 [facility] Laboratory - Hematology and Cell countsOrdered By: HEALTH ASSESSMENT on 04-21-2023 Erythrocyte distribution width (RBC) [Entitic vol] 40.4 fL 35.1-43.9 [facility] Erythrocyte distribution width (RBC) [Ratio] 13.0 % 11.6-14.6 [facility] MCH (RBC) [Entitic mass] 26.6 pg 27.0-32.0 [facility] Nucleated RBC/100 WBC (Bld) [Ratio] 0 % 0-5 [facility] MCHC Auto (RBC) [Mass/Vol]Or dered By: HEALTH ASSESSMENT on 04-21-2023 MCHC (RBC) [Mass/Vol] 30.9 g/dL 32-36 [facility] Nitrite Test strip Ql (U)Ord ered By: HEALTH ASSESSMENT on 04-21-2023 Nitrite Ql (U) Negative Negative [facility] No Panel InformationOrdered By: HEALTH ASSESSMENT on 04-21-2023 Estimated GFR (MDRD) Amer 120 mL/min >60 [facility] Comment on above: GFR Calc Estimated GFR (MDRD) Non-Af Amer 99 mL/min >60 [facility] Comment on above: Non- GFR Calc Platelets bldOrdered By: [facility] ASSESSMENT on 04-21-2023 Platelets (Bld) [#/Vol] 253 10*3/uL 150-450 [facility] Protein Test strip Ql (U)Ord ered By: HEALTH ASSESSMENT on 04-21-2023 Protein Ql (U) 15 mg/dl Negative [facility] Segmented neutrophils/100 WB C Auto (Bld)Ordered By: HEALTH ASSESSMENT on 04-21-2023 Segmented neutrophils/100 WBC (Bld) 61.0 % 47-70 [facility] Serum or plasma albumin nikole urement (mass/volume)Ordered By: HEALTH ASSESSMENT on 04-21-2023 Albumin [Mass/Vol] 4.1 g/dL 3.2-5.0 [facility] Serum or plasma albumin/glob ulin mass ratioOrdered By: HEALTH ASSESSMENT on 04-21-2023 Albumin/Globulin [Mass ratio] 1.1 {ratio} 0.9-2.4 [facility] Serum or plasma calcium nikole urement (mass/volume)Ordered By: HEALTH ASSESSMENT on 04-21-2023 Calcium [Mass/Vol] 9.0 mg/dL 8.5-10.1 [facility] Serum or plasma cholesterol in HDL measurement (mass/volume)Ordered By: HEALTH ASSESSMENT on 04-21-2023 Cholesterol in HDL [Mass/Vol] 61 mg/dL >40 [facility] Comment on above: The drugs N-Acetylcy steine and Metamizole may falsely depress this assay. Reference Range HDL <40 mg/dL Low HDL Cholesterol HDL >or= 60 mg/dL High HDL Cholesterol Serum or plasma cholesterol in VLDL measurement (mass/volume)Ordered By: HEALTH ASSESSMENT on 04-21-2023 Cholesterol in VLDL [Mass/Vol] 17 mg/dL 5-40 [facility] Serum or plasma creatinine m easurement (mass/volume)Ordered By: HEALTH ASSESSMENT on 04-21-2023 Creatinine [Mass/Vol] 0.72 mg/dL 0.55-1.02 [facility] Comment on above: The validity of the calculated GFR & GFRAA in patients over 70 years has not been determined. Clinical correlation is essential. Serum or plasma low density lipoprotein (LDL) cholesterol measurement (mass/volume)Ordered By: HEALTH ASSESSMENT on 04-21-2023 Cholesterol in LDL [Mass/Vol] 81 mg/dL 0-130 [facility] Serum or plasma urea nitroge n measurement (mass/volume)Ordered By: HEALTH ASSESSMENT on 04-21-2023 Urea nitrogen [Mass/Vol] 8 mg/dL 7-18 [facility] Serum or plasma uric acid me asurement (mass/volume)Ordered By: HEALTH ASSESSMENT on 04-21-2023 Urate [Mass/Vol] 4.4 mg/dL 2.6-6.0 [facility] Comment on above: The drugs N-Acetylcy steine and Metamizole may falsely depress this assay. Thin prep Papanicolaou smear with manual screeningOrdered By: HEALTH ASSESSMENT on 04-21-2023 Thin prep Papanicolaou smear with manual screening 11 U/L 15-37 [facility] Thin prep Papanicolaou smear with manual screening 5 5-15 [facility] Urine blood detectionOrdered By: HEALTH ASSESSMENT on 04-21-2023 RBC Ql (U) 10 /ul Negative [facility] Urine clarityOrdered By: [facility] ASSESSMENT on 04-21-2023 Clarity (U) Sl. Cloudy Clear [facility] Urine color determinationOrd ered By: HEALTH ASSESSMENT on 04-21-2023 Color (U) Yellow Yellow [facility] Urine glucose detectionOrder ed By: HEALTH ASSESSMENT on 04-21-2023 Glucose Ql (U) Normal mg/dl Normal [facility] Urine leukocyte esterase det ection by dipstickOrdered By: HEALTH ASSESSMENT on 04-21-2023 Leukocyte esterase Test strip Ql (U) Negative Negative [facility] Urine pHOrdered By: HEALTH A SSESSMENT on 04-21-2023 pH (U) 6.0 [pH] 5.0 - 8.0 [facility] Urine specific gravity measu rementOrdered By: HEALTH ASSESSMENT on 04-21-2023 Specific gravity (U) [Rel density] 1.015 1.002-1.030 [facility] Urobilinogen Auto test strip Ql (U)Ordered By: HEALTH ASSESSMENT on 04-21-2023 Urobilinogen Ql (U) Normal mg/dl Normal [facility] Basophil percentageOrdered B y: Stephanie Kramer on 01-11-2023 Bilirubin [Mass/Vol] 0.80 mg/dL 0.20-1.00 [facility] Comment on above: For patients on eltr ombopag therapy, use of Dimension [place] TBIL is not recommended. Chloride [Moles/Vol] 107 mmol/L 98-107 [facility] Cholesterol [Mass/Vol] 194 mg/dL <200 [facility] Comment on above: <200 mg/dL Desirable 200-240 mg/dL Borderline >240 mg/dL High Risk Glucose [Mass/Vol] 94 mg/dL 74-106 [facility] Potassium [Moles/Vol] 3.8 mmol/L 3.5-5.1 [facility] Protein [Mass/Vol] 7.6 g/dL 6.4-8.2 [facility] Sodium [Moles/Vol] 138 mmol/L 136-145 [facility] Triglyceride [Mass/Vol] 68 mg/dL <199 [facility] Comment on above: The drugs N-Acetylcy steine and Metamizole may falsely depress this assay.Serum Triglycerides Reference Interval Normal <150 mg/dL Borderline high 150 - 199 mg/dL High 200 - 499 mg/dL Very High > or = 500 mg/dL WBC (Bld) [#/Vol] 10.6 10*3/uL 4.4-11.0 [facility] Blood erythrocytes count (nu mber/volume)Ordered By: Stephanie Kramer on 01-11-2023 RBC (Bld) [#/Vol] 5.34 10*6/uL 4.2-5.4 [facility] Blood hemoglobin measurement (mass/volume)Ordered By: Stephanie Kramer on 01-11-2023 Hemoglobin (Bld) [Mass/Vol] 13.8 g/dL 12.0-15.0 [facility] Blood platelet mean volumeOr dered By: Stephanie Kramer on 01-11-2023 Platelet mean volume (Bld) [Entitic vol] 9.3 fL 6.2-12.0 [facility] Determination of erythrocyte mean corpuscular volume (MCV)Ordered By: Stephanie Kramer on 01-11-2023 MCV (RBC) [Entitic vol] 84.1 fL 81-99 [facility] Hematocrit Auto (Bld) [Volum e fraction]Ordered By: Stephanie Kramer on 01-11-2023 Hematocrit (Bld) [Volume fraction] 44.9 % 37-47 [facility] Laboratory - Chemistry and C hemistry - challengeOrdered By: Stephanie Kramer on 01-11-2023 ALP [Catalytic activity/Vol] 54 U/L 45-117 [facility] ALT [Catalytic activity/Vol] 24 U/L 13-56 [facility] CO2 [Moles/Vol] 26.0 mmol/L 21.0-32.0 [facility] Free T4 [Mass/Vol] 1.07 ng/dL 0.76-1.46 [facility] Globulin (S) [Mass/Vol] 3.7 g/dL 2.2-4.2 [facility] Urea nitrogen/Creatinine [Mass ratio] 17.4 mg/mg 10-20 [facility] Laboratory - Hematology and Cell countsOrdered By: Stephanie Kramer on 01-11-2023 Erythrocyte distribution width (RBC) [Entitic vol] 42.9 fL 35.1-43.9 [facility] Erythrocyte distribution width (RBC) [Ratio] 14.0 % 11.6-14.6 [facility] MCH (RBC) [Entitic mass] 25.8 pg 27.0-32.0 [facility] MCHC Auto (RBC) [Mass/Vol]Or dered By: Stephanie Kramer on 01-11-2023 MCHC (RBC) [Mass/Vol] 30.7 g/dL 32-36 [facility] No Panel InformationOrdered By: Stephanie Kramer on 01-11-2023 Estimated GFR (MDRD) Amer 139 mL/min >60 [facility] Comment on above: GFR Calc Estimated GFR (MDRD) Non-Af Amer 115 mL/min >60 [facility] Comment on above: Non- GFR Calc Thyroid Stimulating Hormone (TSH) 0.58 uIU/mL 0.358-3.74 [facility] Platelets bldOrdered By: Patricia Kramer on 01-11-2023 Platelets (Bld) [#/Vol] 273 10*3/uL 150-450 [facility] Serum or plasma albumin nikole urement (mass/volume)Ordered By: Stephanie Kramer on 01-11-2023 Albumin [Mass/Vol] 3.9 g/dL 3.2-5.0 [facility] Serum or plasma albumin/glob ulin mass ratioOrdered By: Stephanie Kramer on 01-11-2023 Albumin/Globulin [Mass ratio] 1.1 {ratio} 0.9-2.4 [facility] Serum or plasma calcium nikole urement (mass/volume)Ordered By: Stephanie Kramer on 01-11-2023 Calcium [Mass/Vol] 9.2 mg/dL 8.5-10.1 [facility] Serum or plasma cholesterol in HDL measurement (mass/volume)Ordered By: Stephanie Kramer on 01-11-2023 Cholesterol in HDL [Mass/Vol] 61 mg/dL >40 [facility] Comment on above: The drugs N-Acetylcy steine and Metamizole may falsely depress this assay. Reference Range HDL <40 mg/dL Low HDL Cholesterol HDL >or= 60 mg/dL High HDL Cholesterol Serum or plasma cholesterol in VLDL measurement (mass/volume)Ordered By: Stephanie Kramer on 01-11-2023 Cholesterol in VLDL [Mass/Vol] 14 mg/dL 5-40 [facility] Serum or plasma creatinine m easurement (mass/volume)Ordered By: Stephanie Kramer on 01-11-2023 Creatinine [Mass/Vol] 0.63 mg/dL 0.55-1.02 [facility] Comment on above: The validity of the calculated GFR & GFRAA in patients over 70 years has not been determined. Clinical correlation is essential. Serum or plasma low density lipoprotein (LDL) cholesterol measurement (mass/volume)Ordered By: Stephanie Kramer on 01-11-2023 Cholesterol in LDL [Mass/Vol] 119 mg/dL 0-130 [facility] Serum or plasma urea nitroge n measurement (mass/volume)Ordered By: Stephanie Kramer on 01-11-2023 Urea nitrogen [Mass/Vol] 11 mg/dL 7-18 [facility] Thin prep Papanicolaou smear with manual screeningOrdered By: Stephanie Kramer on 01-11-2023 Thin prep Papanicolaou smear with manual screening 14 U/L 15-37 [facility] Thin prep Papanicolaou smear with manual screening 5 5-15 [facility] Absolute lymphocyte counton 08-29-2022 Lymphocytes Auto (Unsp spec) [#/Vol] 3.18 10*3/uL 0.83-4.51 [facility] Work Phone: Basophil percentageon 2021 Basophils/100 WBC (Bld) 0.5 % 0-1 [facility] [facility] Work Phone: Bilirubin [Mass/Vol] 0.20 mg/dL 0.20-1.00 [facility] Work Phone: Comment on above: For patients on eltr ombopag therapy, use of Dimension [place] TBIL is not recommended. Chloride [Moles/Vol] 108 mmol/L 98-107 [facility] Work Phone: Eosinophils/100 WBC (Bld) 1.9 % 0-5 [facility] Work Phone: Glucose [Mass/Vol] 103 mg/dL 74-106 [facility] Work Phone: Comment on above: Fasting Glucose resu lt from 100 to 125 mg/dL suggests IMPAIRED HOMEOSTASIS per A.D.A. criteria. Neutrophils (Bld) [#/Vol] 5.8 10*3/uL 2.0-7.7 [facility] Work Phone: Neutrophils/100 WBC (Bld) 57.8 % 47-70 [facility] Work Phone: Potassium [Moles/Vol] 3.4 mmol/L 3.5-5.1 [facility] Work Phone: Protein [Mass/Vol] 7.4 g/dL 6.4-8.2 [facility] Work Phone: Sodium [Moles/Vol] 141 mmol/L 136-145 [facility] Work Phone: WBC (Bld) [#/Vol] 10.0 10*3/uL 4.4-11.0 [facility] Work Phone: Blood erythrocytes count (nu mber/volume)on 08-29-2022 RBC (Bld) [#/Vol] 4.08 10*6/uL 4.2-5.4 [facility] Work Phone: [phone] Blood hemoglobin measurement (mass/volume)on 08-29-2022 Hemoglobin (Bld) [Mass/Vol] 10.9 g/dL 12.0-15.0 [facility] Work Phone: [phone] Blood lymphocytes/100 leukoc yteson 08-29-2022 Lymphocytes/100 WBC (Bld) 31.8 % 19-41 [facility] Work Phone: [phone] Blood monocytes/100 leukocyt eson 08-29-2022 Monocytes/100 WBC (Bld) 6.9 % 0-10 [facility] Work Phone: [phone] Blood platelet mean volumeon 08-29-2022 Platelet mean volume (Bld) [Entitic vol] 9.1 fL 6.2-12.0 [facility] Work Phone: [phone] Determination of erythrocyte mean corpuscular volume (MCV)on 08-29-2022 MCV (RBC) [Entitic vol] 82.8 fL 81-99 [facility] Work Phone: [phone] Hematocrit Auto (Bld) [Volum e fraction]on 08-29-2022 Hematocrit (Bld) [Volume fraction] 33.8 % 37-47 [facility] Work Phone: [phone] Laboratory - Chemistry and C hemistry - challengeon 08-29-2022 ALP [Catalytic activity/Vol] 72 U/L 45-117 [facility] Work Phone: [phone] ALT [Catalytic activity/Vol] 30 U/L 13-56 [facility] Work Phone: [phone] CO2 [Moles/Vol] 26.0 mmol/L 21.0-32.0 [facility] Work Phone: [phone] Globulin (S) [Mass/Vol] 4.4 g/dL 2.2-4.2 [facility] Work Phone: Urea nitrogen/Creatinine [Mass ratio] 12.3 mg/mg 10-20 [facility] Work Phone: [phone] Laboratory - Hematology and Cell countson 08-29-2022 Erythrocyte distribution width (RBC) [Entitic vol] 39.4 fL 35.1-43.9 [facility] Work Phone: [phone] Erythrocyte distribution width (RBC) [Ratio] 13.0 % 11.6-14.6 [facility] Work Phone: [phone] Immature granulocytes/100 WBC (Bld) 1.100 % 0.0-0.9 [facility] Work Phone: [phone] Comment on above: IG% - Immature Granu locytes (promyelocytes, myelocytes and metamyelocytes) > 1% indicates that a LEFT SHIFT is Present. MCH (RBC) [Entitic mass] 26.7 pg 27.0-32.0 [facility] Work Phone: [phone] Nucleated RBC/100 WBC (Bld) [Ratio] 0 % 0-5 [facility] Work Phone: [phone] MCHC Auto (RBC) [Mass/Vol]on 08-29-2022 MCHC (RBC) [Mass/Vol] 32.2 g/dL 32-36 [facility] Work Phone: [phone] Panel Informationon 08-29 Estimated Creatinine Clearance Calc 78.73 ml/min [facility] Work Phone: [phone] Estimated GFR (MDRD) Amer 117 mL/min >60 [facility] Work Phone: [phone] Comment on above: GFR Calc Estimated GFR (MDRD) Non-Af Amer 97 mL/min >60 [facility] Work Phone: [phone] Comment on above: Non- GFR Calc Platelets bldon 08-29-2022 Platelets (Bld) [#/Vol] 493 10*3/uL 150-450 [facility] Work Phone: [phone] Serum or plasma albumin nikole urement (mass/volume)on 08-29-2022 Albumin [Mass/Vol] 3.0 g/dL 3.2-5.0 [facility] Work Phone: [phone] Serum or plasma albumin/glob ulin mass ratioon 08-29-2022 Albumin/Globulin [Mass ratio] 0.7 {ratio} 0.9-2.4 [facility] Work Phone: [phone] Serum or plasma calcium nikole urement (mass/volume)on 08-29-2022 Calcium [Mass/Vol] 8.9 mg/dL 8.5-10.1 [facility] Work Phone: [phone] Serum or plasma creatinine m easurement (mass/volume)on 08-29-2022 Creatinine [Mass/Vol] 0.73 mg/dL 0.55-1.02 [facility] Work Phone: [phone] Comment on above: The validity of the calculated GFR & GFRAA in patients over 70 years has not been determined. Clinical correlation is essential. Serum or plasma urea nitroge n measurement (mass/volume)on 08-29-2022 Urea nitrogen [Mass/Vol] 9 mg/dL 7-18 [facility] Work Phone: [phone] Thin prep Papanicolaou smear with manual screeningon 08-29-2022 Thin prep Papanicolaou smear with manual screening 11 U/L 15-37 [facility] Work Phone: [phone] Thin prep Papanicolaou smear with manual screening 7 5-15 [facility] Work Phone: [phone] Absolute lymphocyte counton 08-26-2022 Lymphocytes Auto (Unsp spec) [#/Vol] 1.76 10*3/uL 0.83-4.51 [facility] Work Phone: [phone] Basophil percentageon 2021 Basophils/100 WBC (Bld) 0.2 % 0-1 [facility] Work Phone: [phone] Bilirubin [Mass/Vol] 0.40 mg/dL 0.20-1.00 [facility] Work Phone: [phone] Comment on above: For patients on eltr ombopag therapy, use of Dimension [place] TBIL is not recommended. Chloride [Moles/Vol] 111 mmol/L 98-107 [facility] Work Phone: Eosinophils/100 WBC (Bld) 1.1 % 0-5 [facility] Work Phone: Glucose [Mass/Vol] 104 mg/dL 74-106 [facility] Work Phone: Comment on above: Fasting Glucose resu lt from 100 to 125 mg/dL suggests IMPAIRED HOMEOSTASIS per A.D.A. criteria. Neutrophils (Bld) [#/Vol] 9.6 10*3/uL 2.0-7.7 [facility] Work Phone: Neutrophils/100 WBC (Bld) 77.1 % 47-70 [facility] Work Phone: Potassium [Moles/Vol] 3.3 mmol/L 3.5-5.1 [facility] Work Phone: Protein [Mass/Vol] 5.8 g/dL 6.4-8.2 [facility] Work Phone: Sodium [Moles/Vol] 143 mmol/L 136-145 [facility] Work Phone: WBC (Bld) [#/Vol] 12.5 10*3/uL 4.4-11.0 [facility] Work Phone: Blood erythrocytes count (nu mber/volume)on 08-26-2022 RBC (Bld) [#/Vol] 3.47 10*6/uL 4.2-5.4 [facility] Work Phone: Blood hemoglobin measurement (mass/volume)on 08-26-2022 Hemoglobin (Bld) [Mass/Vol] 9.3 g/dL 12.0-15.0 [facility] Work Phone: Blood lymphocytes/100 leukoc yteson 08-26-2022 Lymphocytes/100 WBC (Bld) 14.1 % 19-41 [facility] Work Phone: Blood monocytes/100 leukocyt eson 08-26-2022 Monocytes/100 WBC (Bld) 7.1 % 0-10 [facility] Work Phone: [phone] Blood platelet mean volumeon 08-26-2022 Platelet mean volume (Bld) [Entitic vol] 9.5 fL 6.2-12.0 [facility] Work Phone: [phone] Determination of erythrocyte mean corpuscular volume (MCV)on 08-26-2022 MCV (RBC) [Entitic vol] 84.4 fL 81-99 [facility] Work Phone: [phone] Hematocrit Auto (Bld) [Volum e fraction]on 08-26-2022 Hematocrit (Bld) [Volume fraction] 29.3 % 37-47 [facility] Work Phone: [phone] Laboratory - Chemistry and C hemistry - challengeon 08-26-2022 ALP [Catalytic activity/Vol] 69 U/L 45-117 [facility] Work Phone: [phone] ALT [Catalytic activity/Vol] 24 U/L 13-56 [facility] Work Phone: [phone] CO2 [Moles/Vol] 26.0 mmol/L 21.0-32.0 [facility] Work Phone: [phone] Globulin (S) [Mass/Vol] 3.4 g/dL 2.2-4.2 [facility] Work Phone: [phone] Urea nitrogen/Creatinine [Mass ratio] 8.8 mg/mg 10-20 [facility] Work Phone: [phone] Laboratory - Hematology and Cell countson 08-26-2022 Erythrocyte distribution width (RBC) [Entitic vol] 40.0 fL 35.1-43.9 [facility] Work Phone: [phone] Erythrocyte distribution width (RBC) [Ratio] 13.0 % 11.6-14.6 [facility] Work Phone: [phone] Immature granulocytes/100 WBC (Bld) 0.400 % 0.0-0.9 [facility] Work Phone: [phone] Comment on above: IG% - Immature Granu locytes (promyelocytes, myelocytes and metamyelocytes) > 1% indicates that a LEFT SHIFT is Present. MCH (RBC) [Entitic mass] 26.8 pg 27.0-32.0 [facility] Work Phone: [phone] Nucleated RBC/100 WBC (Bld) [Ratio] 0 % 0-5 [facility] Work Phone: [phone] MCHC Auto (RBC) [Mass/Vol]on 08-26-2022 MCHC (RBC) [Mass/Vol] 31.7 g/dL 32-36 [facility] Work Phone: [phone] Panel Informationon 08-26 Estimated Creatinine Clearance Calc 102.63 ml/min [facility] Work Phone: [phone] Estimated GFR (MDRD) Amer 159 mL/min >60 [facility] Work Phone: [phone] Comment on above: GFR Calc Estimated GFR (MDRD) Non-Af Amer 131 mL/min >60 [facility] Work Phone: [phone] Comment on above: Non- GFR Calc Platelets bldon 08-26-2022 Platelets (Bld) [#/Vol] 297 10*3/uL 150-450 [facility] Work Phone: [phone] Serum or plasma albumin nikole urement (mass/volume)on 08-26-2022 Albumin [Mass/Vol] 2.4 g/dL 3.2-5.0 [facility] Work Phone: [phone] Serum or plasma albumin/glob ulin mass ratioon 08-26-2022 Albumin/Globulin [Mass ratio] 0.7 {ratio} 0.9-2.4 [facility] Work Phone: [phone] Serum or plasma calcium nikole urement (mass/volume)on 08-26-2022 Calcium [Mass/Vol] 8.4 mg/dL 8.5-10.1 [facility] Work Phone: [phone] Serum or plasma creatinine m easurement (mass/volume)on 08-26-2022 Creatinine [Mass/Vol] 0.56 mg/dL 0.55-1.02 [facility] Work Phone: Comment on above: The validity of the calculated GFR & GFRAA in patients over 70 years has not been determined. Clinical correlation is essential. Serum or plasma urea nitroge n measurement (mass/volume)on 08-26-2022 Urea nitrogen [Mass/Vol] 5 mg/dL 7-18 [facility] Work Phone: Thin prep Papanicolaou smear with manual screeningon 08-26-2022 Thin prep Papanicolaou smear with manual screening 15 U/L 15-37 [facility] Work Phone: Thin prep Papanicolaou smear with manual screening 6 5-15 [facility] Work Phone: Absolute lymphocyte counton 08-23-2022 Lymphocytes Auto (Unsp spec) [#/Vol] 1.66 10*3/uL 0.83-4.51 [facility] Work Phone: Lymphocytes Auto (Unsp spec) [#/Vol] 2.07 10*3/uL 0.83-4.51 [facility] Work Phone: Basophil percentageon 2021 Basophil percentage 0-5 SEEN /hpf 0-5 [facility] Work Phone: Basophils/100 WBC (Bld) 0.2 % 0-1 [facility] Work Phone: Chloride [Moles/Vol] 105 mmol/L 98-107 [facility] Work Phone: Eosinophils/100 WBC (Bld) 0.4 % 0-5 [facility] Work Phone: Glucose [Mass/Vol] 96 mg/dL 74-106 [facility] Work Phone: Neutrophils (Bld) [#/Vol] 18.0 10*3/uL 2.0-7.7 [facility] Work Phone: Neutrophils/100 WBC (Bld) 85.4 % 47-70 [facility] Work Phone: Potassium [Moles/Vol] 3.8 mmol/L 3.5-5.1 [facility] Work Phone: Sodium [Moles/Vol] 137 mmol/L 136-145 [facility] Work Phone: WBC (Bld) [#/Vol] 21.1 10*3/uL 4.4-11.0 [facility] Work Phone: Basophils/100 WBC (Bld) 0.2 % 0-1 [facility] Work Phone: Eosinophils/100 WBC (Bld) 0.5 % 0-5 [facility] Work Phone: Neutrophils (Bld) [#/Vol] 17.0 10*3/uL 2.0-7.7 [facility] Work Phone: Neutrophils/100 WBC (Bld) 82.6 % 47-70 [facility] Work Phone: [phone] WBC (Bld) [#/Vol] 20.6 10*3/uL 4.4-11.0 [facility] Work Phone: Bilirubin Test strip Ql (U)o n 08-23-2022 Bilirubin Ql (U) Negative Negative [facility] Work Phone: [phone] Blood erythrocytes count (nu mber/volume)on 08-23-2022 RBC (Bld) [#/Vol] 4.58 10*6/uL 4.2-5.4 [facility] Work Phone: RBC (Bld) [#/Vol] 4.76 10*6/uL 4.2-5.4 [facility] Work Phone: Blood hemoglobin measurement (mass/volume)on 08-23-2022 Hemoglobin (Bld) [Mass/Vol] 12.4 g/dL 12.0-15.0 [facility] Work Phone: Hemoglobin (Bld) [Mass/Vol] 12.5 g/dL 12.0-15.0 [facility] Work Phone: Blood lymphocytes/100 leukoc yteson 08-23-2022 Lymphocytes/100 WBC (Bld) 7.9 % - [facility] Work Phone: Lymphocytes/100 WBC (Bld) 10.1 % [facility] Work Phone: Blood monocytes/100 leukocyt eson 08-23-2022 Monocytes/100 WBC (Bld) 5.7 % 0-10 [facility] Work Phone: Monocytes/100 WBC (Bld) 6.1 % 0-10 [facility] Work Phone: Blood platelet mean volumeon 08-23-2022 Platelet mean volume (Bld) [Entitic vol] 9.2 fL 6.2-12.0 [facility] Work Phone: Platelet mean volume (Bld) [Entitic vol] 9.2 fL 6.2-12.0 [facility] Work Phone: Determination of erythrocyte mean corpuscular volume (MCV)on 08-23-2022 MCV (RBC) [Entitic vol] 83.4 fL 81-99 [facility] Work Phone: MCV (RBC) [Entitic vol] 83.6 fL 81-99 [facility] Work Phone: Hematocrit Auto (Bld) [Volum e fraction]on 08-23-2022 Hematocrit (Bld) [Volume fraction] 38.2 % 37-47 [facility] Work Phone: Hematocrit (Bld) [Volume fraction] 39.8 % 37-47 [facility] Work Phone: Ketones Test strip Ql (U)on 08-23-2022 Ketones Ql (U) 5 mg/dl Negative [facility] Work Phone: Laboratory - Chemistry and C hemistry - challengeon 08-23-2022 CO2 [Moles/Vol] 26.0 mmol/L 21.0-32.0 [facility] Work Phone: Urea nitrogen/Creatinine [Mass ratio] 13.4 mg/mg 10-20 [facility] Work Phone: Laboratory - Hematology and Cell countson 08-23-2022 Erythrocyte distribution width (RBC) [Entitic vol] 39.3 fL 35.1-43.9 [facility] Work Phone: [phone] Erythrocyte distribution width (RBC) [Ratio] 12.9 % 11.6-14.6 [facility] Work Phone: [phone] Immature granulocytes/100 WBC (Bld) 0.400 % 0.0-0.9 [facility] Work Phone: Comment on above: IG% - Immature Granu locytes (promyelocytes, myelocytes and metamyelocytes) > 1% indicates that a LEFT SHIFT is Present. MCH (RBC) [Entitic mass] 27.1 pg 27.0-32.0 [facility] Work Phone: [phone] Nucleated RBC/100 WBC (Bld) [Ratio] 0 % 0-5 [facility] Work Phone: [phone] Erythrocyte distribution width (RBC) [Entitic vol] 39.7 fL 35.1-43.9 [facility] Work Phone: [phone] Erythrocyte distribution width (RBC) [Ratio] 12.9 % 11.6-14.6 [facility] Work Phone: [phone] Immature granulocytes/100 WBC (Bld) 0.500 % 0.0-0.9 [facility] Work Phone: Comment on above: IG% - Immature Granu locytes (promyelocytes, myelocytes and metamyelocytes) > 1% indicates that a LEFT SHIFT is Present. MCH (RBC) [Entitic mass] 26.3 pg 27.0-32.0 [facility] Work Phone: [phone] Nucleated RBC/100 WBC (Bld) [Ratio] 0 % 0-5 [facility] Work Phone: [phone] MCHC Auto (RBC) [Mass/Vol]on 08-23-2022 MCHC (RBC) [Mass/Vol] 32.5 g/dL 32-36 [facility]: [phone] MCHC (RBC) [Mass/Vol] 31.4 g/dL 32-36 [facility] Work Phone: Mucus LM Ql (Urine sed)on Mucus Ql (Urine sed) 0 SEEN /hpf [facility] Work Phone: Nitrite Test strip Ql (U)on 08-23-2022 Nitrite Ql (U) Negative Negative [facility] Work Phone: No Panel Informationon 08-23 Estimated Creatinine Clearance Calc 85.78 ml/min [facility] Work Phone: Estimated GFR (MDRD) Amer 129 mL/min >60 [facility] Work Phone: Comment on above: GFR Calc Estimated GFR (MDRD) Non-Af Amer 107 mL/min >60 [facility] Work Phone: Comment on above: Non- GFR Calc Platelets bldon 08-23-2022 Platelets (Bld) [#/Vol] 363 10*3/uL 150-450 [facility] Work Phone: Platelets (Bld) [#/Vol] 394 10*3/uL 150-450 [facility] Work Phone: Protein Test strip Ql (U)on 08-23-2022 Protein Ql (U) 30 mg/dl Negative [facility] Work Phone: Serum or plasma calcium nikole urement (mass/volume)on 08-23-2022 Calcium [Mass/Vol] 9.4 mg/dL 8.5-10.1 [facility] Work Phone: Serum or plasma creatinine m easurement (mass/volume)on 08-23-2022 Creatinine [Mass/Vol] 0.67 mg/dL 0.55-1.02 [facility] Work Phone: Comment on above: The validity of the calculated GFR & GFRAA in patients over 70 years has not been determined. Clinical correlation is essential. Serum or plasma urea nitroge n measurement (mass/volume)on 08-23-2022 Urea nitrogen [Mass/Vol] 9 mg/dL 7-18 [facility] Work Phone: Squamous epithelial cells de tection in urine sediment by light microscopyon 08-23-2022 Epithelial cells.squamous LM Ql (Urine sed) 0-5 SEEN /hpf 5-10 [facility] Work Phone: Thin prep Papanicolaou smear with manual screeningon 08-23-2022 Thin prep Papanicolaou smear with manual screening 6 5-15 [facility] Work Phone: Urine blood detectionon 08-05 RBC Ql (U) 50 /ul Negative [facility] Work Phone: RBC Ql (U) 0-5 SEEN /hpf 0-5 [facility] Work Phone: Urine clarityon 08-23-2022 Clarity (U) Clear Clear [facility] Work Phone: Urine color determinationon 08-23-2022 Color (U) Yellow Yellow [facility] Work Phone: Urine glucose detectionon Glucose Ql (U) Normal mg/dl Normal [facility] Work Phone: Urine leukocyte esterase det ection by dipstickon 08-23-2022 Leukocyte esterase Test strip Ql (U) 25 /ul Negative [facility] Work Phone: Urine pHon 08-23-2022 pH (U) 6.5 [pH] 5.0 - 8.0 [facility] Work Phone: Urine sediment bacteria coun t by microscopy (number/high power field)on 08-23-2022 Bacteria LM.HPF (Urine sed) [#/Area] 1 /[HPF] None Seen [facility] Work Phone: Urine specific gravity measu rementon 08-23-2022 Specific gravity (U) [Rel density] 1.005 1.002-1.030 [facility] Work Phone: Urobilinogen Auto test strip Ql (U)on 08-23-2022 Urobilinogen Ql (U) Normal mg/dl Normal [facility] Work Phone: Absolute lymphocyte counton 08-13-2022 Lymphocytes Auto (Unsp spec) [#/Vol] 1.17 10*3/uL 0.83-4.51 [facility] Work Phone: Basophil percentageon 2021 Basophils/100 WBC (Bld) 0.1 % 0-1 [facility] Work Phone: Bilirubin [Mass/Vol] 1.30 mg/dL 0.20-1.00 [facility] Work Phone: Comment on above: For patients on eltr ombopag therapy, use of Dimension [place] TBIL is not recommended. Chloride [Moles/Vol] 108 mmol/L 98-107 [facility] Work Phone: Eosinophils/100 WBC (Bld) 0.5 % 0-5 [facility] Work Phone: Glucose [Mass/Vol] 106 mg/dL 74-106 [facility] Work Phone: Comment on above: Fasting Glucose resu lt from 100 to 125 mg/dL suggests IMPAIRED HOMEOSTASIS per A.D.A. criteria. Neutrophils (Bld) [#/Vol] 9.0 10*3/uL 2.0-7.7 [facility] Work Phone: Neutrophils/100 WBC (Bld) 81.3 % 47-70 [facility] Work Phone: Potassium [Moles/Vol] 3.5 mmol/L 3.5-5.1 [facility] Work Phone: Protein [Mass/Vol] 6.3 g/dL 6.4-8.2 [facility] Work Phone: Sodium [Moles/Vol] 140 mmol/L 136-145 [facility] Work Phone: WBC (Bld) [#/Vol] 11.1 10*3/uL 4.4-11.0 [facility] Work Phone: Blood erythrocytes count (nu mber/volume)on 08-13-2022 RBC (Bld) [#/Vol] 4.27 10*6/uL 4.2-5.4 [facility] Work Phone: Blood hemoglobin measurement (mass/volume)on 08-13-2022 Hemoglobin (Bld) [Mass/Vol] 11.1 g/dL 12.0-15.0 [facility] Work Phone: [phone] Blood lymphocytes/100 leukoc yteson 08-13-2022 Lymphocytes/100 WBC (Bld) 10.6 % 19-41 [facility] Work Phone: [phone] Blood monocytes/100 leukocyt eson 08-13-2022 Monocytes/100 WBC (Bld) 7.0 % 0-10 [facility] Work Phone: [phone] Blood platelet mean volumeon 08-13-2022 Platelet mean volume (Bld) [Entitic vol] 9.7 fL 6.2-12.0 [facility] Work Phone: [phone] Determination of erythrocyte mean corpuscular volume (MCV)on 08-13-2022 MCV (RBC) [Entitic vol] 84.3 fL 81-99 [facility] Work Phone: Hematocrit Auto (Bld) [Volum e fraction]on 08-13-2022 Hematocrit (Bld) [Volume fraction] 36.0 % 37-47 [facility] Work Phone: Laboratory - Chemistry and C hemistry - challengeon 08-13-2022 ALP [Catalytic activity/Vol] 51 U/L 45-117 [facility] Work Phone: ALT [Catalytic activity/Vol] 29 U/L 13-56 [facility] Work Phone: [phone] CO2 [Moles/Vol] 28.0 mmol/L 21.0-32.0 [facility] Work Phone: [phone] Globulin (S) [Mass/Vol] 3.4 g/dL 2.2-4.2 [facility] Work Phone: [phone] Lipase [Catalytic activity/Vol] 52 U/L 73-393 [facility] Work Phone: [phone] Urea nitrogen/Creatinine [Mass ratio] 10.4 mg/mg 10-20 [facility] Work Phone: [phone] Laboratory - Hematology and Cell countson 08-13-2022 Erythrocyte distribution width (RBC) [Entitic vol] 40.9 fL 35.1-43.9 [facility] Work Phone: [phone] Erythrocyte distribution width (RBC) [Ratio] 13.2 % 11.6-14.6 [facility] Work Phone: [phone] Immature granulocytes/100 WBC (Bld) 0.500 % 0.0-0.9 [facility] Work Phone: [phone] Comment on above: IG% - Immature Granu locytes (promyelocytes, myelocytes and metamyelocytes) > 1% indicates that a LEFT SHIFT is Present. MCH (RBC) [Entitic mass] 26.0 pg 27.0-32.0 [facility] Work Phone: [phone] Nucleated RBC/100 WBC (Bld) [Ratio] 0 % 0-5 [facility] Work Phone: [phone] MCHC Auto (RBC) [Mass/Vol]on 08-13-2022 MCHC (RBC) [Mass/Vol] 30.8 g/dL 32-36 [facility] Work Phone: [phone] No Panel Informationon 08-13 Estimated Creatinine Clearance Calc 99.10 ml/min [facility] Work Phone: [phone] Estimated GFR (MDRD) Amer 155 mL/min >60 [facility] Work Phone: [phone] Comment on above: GFR Calc Estimated GFR (MDRD) Non-Af Amer 128 mL/min >60 [facility] Work Phone: [phone] Comment on above: Non- GFR Calc Platelets bldon 08-13-2022 Platelets (Bld) [#/Vol] 228 10*3/uL 150-450 [facility] Work Phone: [phone] Serum or plasma albumin nikole urement (mass/volume)on 08-13-2022 Albumin [Mass/Vol] 2.9 g/dL 3.2-5.0 [facility] Work Phone: [phone] Serum or plasma albumin/glob ulin mass ratioon 08-13-2022 Albumin/Globulin [Mass ratio] 0.9 {ratio} 0.9-2.4 [facility] Work Phone: [phone] Serum or plasma calcium nikole urement (mass/volume)on 08-13-2022 Calcium [Mass/Vol] 8.6 mg/dL 8.5-10.1 [facility] Work Phone: [phone] Serum or plasma creatinine m easurement (mass/volume)on 08-13-2022 Creatinine [Mass/Vol] 0.58 mg/dL 0.55-1.02 [facility] Work Phone: Comment on above: The validity of the calculated GFR & GFRAA in patients over 70 years has not been determined. Clinical correlation is essential. Serum or plasma urea nitroge n measurement (mass/volume)on 08-13-2022 Urea nitrogen [Mass/Vol] 6 mg/dL 7-18 [facility] Work Phone: [phone] Thin prep Papanicolaou smear with manual screeningon 08-13-2022 Thin prep Papanicolaou smear with manual screening 14 U/L 15-37 [facility] Work Phone: [phone] Thin prep Papanicolaou smear with manual screening 4 5-15 [facility] Work Phone: [phone] Absolute lymphocyte counton 08-12-2022 Lymphocytes Auto (Unsp spec) [#/Vol] 1.33 10*3/uL 0.83-4.51 [facility] Work Phone: [phone] Basophil percentageon 2021 Basophils/100 WBC (Bld) 0.1 % 0-1 [facility] Work Phone: [phone] Bilirubin [Mass/Vol] 0.80 mg/dL 0.20-1.00 [facility] Work Phone: [phone] Comment on above: For patients on eltr ombopag therapy, use of Dim[place] TBIL is not recommended. Chloride [Moles/Vol] 110 mmol/L 98-107 [facility] Work Phone: Eosinophils/100 WBC (Bld) 0.4 % 0-5 [facility] Work Phone: Glucose [Mass/Vol] 105 mg/dL 74-106 [facility] Work Phone: Comment on above: Fasting Glucose resu lt from 100 to 125 mg/dL suggests IMPAIRED HOMEOSTASIS per A.D.A. criteria. Neutrophils (Bld) [#/Vol] 6.4 10*3/uL 2.0-7.7 [facility] Work Phone: Neutrophils/100 WBC (Bld) 76.5 % 47-70 [facility] Work Phone: Potassium [Moles/Vol] 3.7 mmol/L 3.5-5.1 [facility] Work Phone: Protein [Mass/Vol] 5.5 g/dL 6.4-8.2 [facility] Work Phone: Sodium [Moles/Vol] 140 mmol/L 136-145 [facility] Work Phone: WBC (Bld) [#/Vol] 8.4 10*3/uL 4.4-11.0 [facility] Work Phone: Blood erythrocytes count (nu mber/volume)on 08-12-2022 RBC (Bld) [#/Vol] 4.04 10*6/uL 4.2-5.4 [facility] Work Phone: Blood hemoglobin measurement (mass/volume)on 08-12-2022 Hemoglobin (Bld) [Mass/Vol] 11.1 g/dL 12.0-15.0 [facility] Work Phone: Blood lymphocytes/100 leukoc yteson 08-12-2022 Lymphocytes/100 WBC (Bld) 15.8 % 19-41 [facility] Work Phone: Blood monocytes/100 leukocyt eson 08-12-2022 Monocytes/100 WBC (Bld) 7.0 % 0-10 [facility] Work Phone: [phone] Blood platelet mean volumeon 08-12-2022 Platelet mean volume (Bld) [Entitic vol] 9.3 fL 6.2-12.0 [facility] Work Phone: [phone] Determination of erythrocyte mean corpuscular volume (MCV)on 08-12-2022 MCV (RBC) [Entitic vol] 86.1 fL 81-99 [facility] Work Phone: [phone] Hematocrit Auto (Bld) [Volum e fraction]on 08-12-2022 Hematocrit (Bld) [Volume fraction] 34.8 % 37-47 [facility] Work Phone: [phone] Laboratory - Chemistry and C hemistry - challengeon 08-12-2022 ALP [Catalytic activity/Vol] 39 U/L 45-117 [facility] Work Phone: [phone] ALT [Catalytic activity/Vol] 35 U/L 13-56 [facility] Work Phone: [phone] CO2 [Moles/Vol] 26.0 mmol/L 21.0-32.0 [facility] Work Phone: Globulin (S) [Mass/Vol] 2.8 g/dL 2.2-4.2 [facility] Work Phone: [phone] Urea nitrogen/Creatinine [Mass ratio] 23.3 mg/mg 10-20 [facility] Work Phone: [phone] Laboratory - Hematology and Cell countson 08-12-2022 Erythrocyte distribution width (RBC) [Entitic vol] 41.9 fL 35.1-43.9 [facility] Work Phone: [phone] Erythrocyte distribution width (RBC) [Ratio] 13.3 % 11.6-14.6 [facility] Work Phone: [phone] Immature granulocytes/100 WBC (Bld) 0.200 % 0.0-0.9 [facility] Work Phone: [phone] Comment on above: IG% - Immature Granu locytes (promyelocytes, myelocytes and metamyelocytes) > 1% indicates that a LEFT SHIFT is Present. MCH (RBC) [Entitic mass] 27.5 pg 27.0-32.0 [facility] Work Phone: [phone] Nucleated RBC/100 WBC (Bld) [Ratio] 0 % 0-5 [facility] Work Phone: [phone] MCHC Auto (RBC) [Mass/Vol]on 08-12-2022 MCHC (RBC) [Mass/Vol] 31.9 g/dL 32-36 [facility] Work Phone: No Panel Informationon 08-12 Estimated Creatinine Clearance Calc 128.42 ml/min [facility] Work Phone: [phone] Estimated GFR (MDRD) Amer 148 mL/min >60 [facility] Work Phone: [phone] Comment on above: GFR Calc Estimated GFR (MDRD) Non-Af Amer 122 mL/min >60 [facility] Work Phone: [phone] Comment on above: Non- GFR Calc Platelets bldon 08-12-2022 Platelets (Bld) [#/Vol] 194 10*3/uL 150-450 [facility] Work Phone: [phone] Serum or plasma albumin nikole urement (mass/volume)on 08-12-2022 Albumin [Mass/Vol] 2.7 g/dL 3.2-5.0 [facility] Work Phone: [phone] Serum or plasma albumin/glob ulin mass ratioon 08-12-2022 Albumin/Globulin [Mass ratio] 1.0 {ratio} 0.9-2.4 [facility] Work Phone: [phone] Serum or plasma calcium nikole urement (mass/volume)on 08-12-2022 Calcium [Mass/Vol] 8.0 mg/dL 8.5-10.1 [facility] Work Phone: [phone] Serum or plasma creatinine m easurement (mass/volume)on 08-12-2022 Creatinine [Mass/Vol] 0.60 mg/dL 0.55-1.02 [facility] Work Phone: [phone] Comment on above: The validity of the calculated GFR & GFRAA in patients over 70 years has not been determined. Clinical correlation is essential. Serum or plasma urea nitroge n measurement (mass/volume)on 08-12-2022 Urea nitrogen [Mass/Vol] 14 mg/dL 7-18 [facility] Work Phone: Thin prep Papanicolaou smear with manual screeningon 08-12-2022 Thin prep Papanicolaou smear with manual screening 25 U/L 15-37 [facility] Work Phone: [phone] Thin prep Papanicolaou smear with manual screening 4 5-15 [facility] Work Phone: Basophil percentageon 2021 Bilirubin [Mass/Vol] 1.10 mg/dL 0.20-1.00 [facility] Work Phone: [phone] Comment on above: For patients on eltr ombopag therapy, use of [employer] TBIL is not recommended. Chloride [Moles/Vol] 111 mmol/L 98-107 [facility] Work Phone: [phone] Glucose [Mass/Vol] 130 mg/dL 74-106 [facility] Work Phone: [phone] Comment on above: Fasting Glucose resu lt greater than or equal to 126 mg/dL suggests DIABETES MELLITUS per A.D.A. criteria. Potassium [Moles/Vol] 3.9 mmol/L 3.5-5.1 [facility] Work Phone: [phone] Protein [Mass/Vol] 6.1 g/dL 6.4-8.2 [facility] Work Phone: [phone] Sodium [Moles/Vol] 140 mmol/L 136-145 [facility] Work Phone: [phone] WBC (Bld) [#/Vol] 17.7 10*3/uL 4.4-11.0 [facility] Work Phone: [phone] Blood erythrocytes count (nu mber/volume)on 08-11-2022 RBC (Bld) [#/Vol] 4.45 10*6/uL 4.2-5.4 [facility] Work Phone: [phone] Blood hemoglobin measurement (mass/volume)on 08-11-2022 Hemoglobin (Bld) [Mass/Vol] 11.5 g/dL 12.0-15.0 [facility] Work Phone: [phone] Blood platelet mean volumeon 08-11-2022 Platelet mean volume (Bld) [Entitic vol] 9.5 fL 6.2-12.0 [facility] Work Phone: [phone] Determination of erythrocyte mean corpuscular volume (MCV)on 08-11-2022 MCV (RBC) [Entitic vol] 84.9 fL 81-99 [facility] Work Phone: [phone] Hematocrit Auto (Bld) [Volum e fraction]on 08-11-2022 Hematocrit (Bld) [Volume fraction] 36.6 % 37-47 [facility] Work Phone: [phone] Laboratory - Chemistry and C hemistry - challengeon 08-11-2022 ALP [Catalytic activity/Vol] 46 U/L 45-117 [facility] Work Phone: [phone] ALT [Catalytic activity/Vol] 17 U/L 13-56 [facility] Work Phone: [phone] CO2 [Moles/Vol] 26.0 mmol/L 21.0-32.0 [facility] Work Phone: [phone] Globulin (S) [Mass/Vol] 3.0 g/dL 2.2-4.2 [facility] Work Phone: [phone] Urea nitrogen/Creatinine [Mass ratio] 13.1 mg/mg 10-20 [facility] Work Phone: [phone] Laboratory - Hematology and Cell countson 08-11-2022 Erythrocyte distribution width (RBC) [Entitic vol] 40.3 fL 35.1-43.9 [facility] Work Phone: [phone] Erythrocyte distribution width (RBC) [Ratio] 13.0 % 11.6-14.6 [facility] Work Phone: [phone] MCH (RBC) [Entitic mass] 26.3 pg 27.0-32.0 [facility] Work Phone: MCHC Auto (RBC) [Mass/Vol]on 08-11-2022 MCHC (RBC) [Mass/Vol] 31.0 g/dL 32-36 [facility] Work Phone: No Panel Informationon 08-11 Estimated Creatinine Clearance Calc 101.39 ml/min [facility] Work Phone: [phone] Estimated GFR (MDRD) Amer 112 mL/min >60 [facility] Work Phone: Comment on above: GFR Calc Estimated GFR (MDRD) Non-Af Amer 92 mL/min >60 [facility] Work Phone: Comment on above: Non- GFR Calc Platelets bldon 08-11-2022 Platelets (Bld) [#/Vol] 282 10*3/uL 150-450 [facility] Work Phone: [phone] Serum or plasma albumin nikole urement (mass/volume)on 08-11-2022 Albumin [Mass/Vol] 3.1 g/dL 3.2-5.0 [facility] Work Phone: Serum or plasma albumin/glob ulin mass ratioon 08-11-2022 Albumin/Globulin [Mass ratio] 1.0 {ratio} 0.9-2.4 [facility] Work Phone: [phone] Serum or plasma calcium nikole urement (mass/volume)on 08-11-2022 Calcium [Mass/Vol] 7.8 mg/dL 8.5-10.1 [facility] Work Phone: [phone] Serum or plasma creatinine m easurement (mass/volume)on 08-11-2022 Creatinine [Mass/Vol] 0.76 mg/dL 0.55-1.02 [facility] Work Phone: Comment on above: The validity of the calculated GFR & GFRAA in patients over 70 years has not been determined. Clinical correlation is essential. Serum or plasma urea nitroge n measurement (mass/volume)on 08-11-2022 Urea nitrogen [Mass/Vol] 10 mg/dL 7-18 [facility] Work Phone: Thin prep Papanicolaou smear with manual screeningon 08-11-2022 Thin prep Papanicolaou smear with manual screening 11 U/L 15-37 [facility] Work Phone: Thin prep Papanicolaou smear with manual screening 3 5-15 [facility] Work Phone: Glucose Glucometer (BldC) [M ass/Vol]on 08-10-2022 Glucose [Mass/Vol] 82 mg/dL 74-106 [facility] Work Phone: Comment on above: MANAGEMENT OF JACQUES T CARE PER NURSING PROTOCOL Laboratory - Chemistry and C hemistry - challengeon 08-10-2022 HCG ( test) Ql (U) Negative [facility] Work Phone: Comment on above: Very dilute urine sp ecimens, as indicated by a low specificgravity, may not contain car sales representative levels of hCG. If is still suspected, a first morning urinespecimen should be collected 48 hours later and tested. Laboratory - Chemistry and C hemistry - challengeon 08-03-2022 Magnesium [Mass/Vol] 2.2 mg/dL 1.6-2.6 [facility] Work Phone: Laboratory - Microbiology an d Antimicrobial susceptibilityon 06-01-2022 SARS-CoV-2 (COVID-19) RNA VON+probe Ql (Unsp spec) Not detected [facility] Work Phone: Laboratory - Microbiology an d Antimicrobial susceptibilityon 05-31-2022 SARS-CoV-2 (COVID-19) RNA VON+probe Ql (Unsp spec) Not detected [facility] Work Phone: No Panel Informationon 05-31 POC Nasal Swab Influenza A,B Not detected [facility] Work Phone: POC Nasal Swab RSV Not detected [facility] Work Phone: Absolute lymphocyte counton 05-14-2022 Lymphocytes Auto (Unsp spec) [#/Vol] 2.42 10*3/uL 0.83-4.51 [facility] Work Phone: Absolute reticulocyte counto n 05-14-2022 Reticulocytes (Bld) [#/Vol] 0.00 10*3/uL 0-5 [facility] Work Phone: Basophil percentageon 2021 Basophil percentage 2.7 mg/dL 2.5-4.9 [facility] Work Phone: Bilirubin [Mass/Vol] 1.00 mg/dL 0.20-1.00 [facility] Work Phone: Comment on above: For patients on eltr ombopag therapy, use of [place] TBIL is not recommended. Chloride [Moles/Vol] 106 mmol/L 98-107 [facility] Work Phone: Cholesterol [Mass/Vol] 189 mg/dL <200 [facility] Work Phone: Comment on above: <200 mg/dL Desirable 200-240 mg/dL Borderline >240 mg/dL High Risk Glucose [Mass/Vol] 93 mg/dL 74-106 [facility] Work Phone: Neutrophils (Bld) [#/Vol] 6.5 10*3/uL 2.0-7.7 [facility] Work Phone: Potassium [Moles/Vol] 4.0 mmol/L 3.5-5.1 [facility] Work Phone: Protein [Mass/Vol] 7.4 g/dL 6.4-8.2 [facility] Work Phone: Sodium [Moles/Vol] 141 mmol/L 136-145 [facility] Work Phone: Triglyceride [Mass/Vol] 70 mg/dL <199 [facility] Work Phone: Comment on above: The drugs N-Acetylcy steine and Metamizole may falsely depress this assay.Serum Triglycerides Reference Interval Normal <150 mg/dL Borderline high 150 - 199 mg/dL High 200 - 499 mg/dL Very High > or = 500 mg/dL WBC (Bld) [#/Vol] 9.6 10*3/uL 4.4-11.0 [facility] Work Phone: Blood erythrocytes count (nu mber/volume)on 05-14-2022 RBC (Bld) [#/Vol] 5.23 10*6/uL 4.2-5.4 [facility] Work Phone: [phone] Blood hemoglobin measurement (mass/volume)on 05-14-2022 Hemoglobin (Bld) [Mass/Vol] 14.0 g/dL 12.0-15.0 [facility] Work Phone: [phone] Blood platelet mean volumeon 05-14-2022 Platelet mean volume (Bld) [Entitic vol] 10.0 fL 6.2-12.0 [facility] Work Phone: [phone] Determination of erythrocyte mean corpuscular volume (MCV)on 05-14-2022 MCV (RBC) [Entitic vol] 85.5 fL 81-99 [facility] Work Phone: [phone] Direct bilirubinon 2 Bilirubin.direct [Mass/Vol] 0.19 mg/dL 0.00-0.30 [facility] Work Phone: [phone] Hematocrit Auto (Bld) [Volum e fraction]on 05-14-2022 Hematocrit (Bld) [Volume fraction] 44.7 % 37-47 [facility] Work Phone: [phone] Laboratory - Chemistry and C hemistry - challengeon 05-14-2022 ALP [Catalytic activity/Vol] 52 U/L 45-117 [facility] Work Phone: [phone] ALT [Catalytic activity/Vol] 22 U/L 13-56 [facility] Work Phone: [phone] Cholesterol.total/Haley sterol in HDL [Mass ratio] 3.20 {ratio} [facility] Work Phone: [phone] CO2 [Moles/Vol] 30.0 mmol/L 21.0-32.0 [facility] Work Phone: Globulin (S) [Mass/Vol] 3.6 g/dL 2.2-4.2 [facility] Work Phone: [phone] Urea nitrogen/Creatinine [Mass ratio] 13.9 mg/mg 10-20 [facility] Work Phone: Laboratory - Hematology and Cell countson 05-14-2022 Erythrocyte distribution width (RBC) [Entitic vol] 39.9 fL 35.1-43.9 [facility] Work Phone: [phone] Erythrocyte distribution width (RBC) [Ratio] 12.8 % 11.6-14.6 [facility] Work Phone: [phone] MCH (RBC) [Entitic mass] 26.8 pg 27.0-32.0 [facility] Work Phone: [phone] Nucleated RBC/100 WBC (Bld) [Ratio] 0 % 0-5 [facility] Work Phone: MCHC Auto (RBC) [Mass/Vol]on 05-14-2022 MCHC (RBC) [Mass/Vol] 31.3 g/dL 32-36 [facility] Work Phone: No Panel Informationon 05-14 Estimated GFR (MDRD) Amer 121 mL/min >60 [facility] Work Phone: Comment on above: GFR Calc Estimated GFR (MDRD) Non-Af Amer 100 mL/min >60 [facility] Work Phone: Comment on above: Non- GFR Calc Platelets bldon 05-14-2022 Platelets (Bld) [#/Vol] 293 10*3/uL 150-450 [facility] Work Phone: Segmented neutrophils/100 WB C Auto (Bld)on 05-14-2022 Segmented neutrophils/100 WBC (Bld) 67.5 % 47-70 [facility] Work Phone: Serum or plasma albumin nikole urement (mass/volume)on 05-14-2022 Albumin [Mass/Vol] 3.8 g/dL 3.2-5.0 [facility] Work Phone: Serum or plasma albumin/glob ulin mass ratioon 05-14-2022 Albumin/Globulin [Mass ratio] 1.1 {ratio} 0.9-2.4 [facility] Work Phone: Serum or plasma calcium nikole urement (mass/volume)on 05-14-2022 Calcium [Mass/Vol] 8.9 mg/dL 8.5-10.1 [facility] Work Phone: Serum or plasma cholesterol in HDL measurement (mass/volume)on 05-14-2022 Cholesterol in HDL [Mass/Vol] 59 mg/dL >40 [facility] Work Phone: Comment on above: The drugs N-Acetylcy steine and Metamizole may falsely depress this assay. Reference Range HDL <40 mg/dL Low HDL Cholesterol HDL >or= 60 mg/dL High HDL Cholesterol Serum or plasma cholesterol in VLDL measurement (mass/volume)on 05-14-2022 Cholesterol in VLDL [Mass/Vol] 14 mg/dL 5-40 [facility] Work Phone: Serum or plasma creatinine m easurement (mass/volume)on 05-14-2022 Creatinine [Mass/Vol] 0.72 mg/dL 0.55-1.02 [facility] Work Phone: Comment on above: The validity of the calculated GFR & GFRAA in patients over 70 years has not been determined. Clinical correlation is essential. Serum or plasma low density lipoprotein (LDL) cholesterol measurement (mass/volume)on 05-14-2022 Cholesterol in LDL [Mass/Vol] 116 mg/dL 0-130 [facility] Work Phone: Serum or plasma urea nitroge n measurement (mass/volume)on 05-14-2022 Urea nitrogen [Mass/Vol] 10 mg/dL 7-18 [facility] Work Phone: [phone] Serum or plasma uric acid me asurement (mass/volume)on 05-14-2022 Urate [Mass/Vol] 4.3 mg/dL 2.6-6.0 [facility] Work Phone: Comment on above: The drugs N-Acetylcy steine and Metamizole may falsely depress this assay. Thin prep Papanicolaou smear with manual screeningon 05-14-2022 Thin prep Papanicolaou smear with manual screening 14 U/L 15-37 [facility] Work Phone: Thin prep Papanicolaou smear with manual screening 5 5-15 [facility] Work Phone: [phone] Thin prep Papanicolaou smear with manual screening 149 U/L 84-246 [facility] Work Phone: Absolute lymphocyte counton 01-29-2022 Lymphocytes Auto (Unsp spec) [#/Vol] 2.51 10*3/uL 0.83-4.51 [facility] Work Phone: Basophil percentageon 2021 Basophils/100 WBC (Bld) 0.2 % 0-1 [facility] Work Phone: [phone] Eosinophils/100 WBC (Bld) 0.5 % 0-5 [facility] Work Phone: [phone] Neutrophils (Bld) [#/Vol] 8.9 10*3/uL 2.0-7.7 [facility] Work Phone: [phone] Neutrophils/100 WBC (Bld) 73.1 % 47-70 [facility] Work Phone: WBC (Bld) [#/Vol] 12.1 10*3/uL 4.4-11.0 [facility] Work Phone: [phone] Blood erythrocytes count (nu mber/volume)on 01-29-2022 RBC (Bld) [#/Vol] 5.04 10*6/uL 4.2-5.4 [facility] Work Phone: [phone] Blood hemoglobin measurement (mass/volume)on 01-29-2022 Hemoglobin (Bld) [Mass/Vol] 13.4 g/dL 12.0-15.0 [facility] Work Phone: Blood lymphocytes/100 leukoc yteson 01-29-2022 Lymphocytes/100 WBC (Bld) 20.7 % 19-41 [facility] Work Phone: [phone] Blood monocytes/100 leukocyt eson 01-29-2022 Monocytes/100 WBC (Bld) 5.2 % 0-10 [facility] Work Phone: [phone] Blood platelet mean volumeon 01-29-2022 Platelet mean volume (Bld) [Entitic vol] 9.7 fL 6.2-12.0 [facility] Work Phone: [phone] Determination of erythrocyte mean corpuscular volume (MCV)on 01-29-2022 MCV (RBC) [Entitic vol] 83.7 fL 81-99 [facility] Work Phone: [phone] Hematocrit Auto (Bld) [Volum e fraction]on 01-29-2022 Hematocrit (Bld) [Volume fraction] 42.2 % 37-47 [facility] Work Phone: Laboratory - Hematology and Cell countson 01-29-2022 Erythrocyte distribution width (RBC) [Entitic vol] 39.6 fL 35.1-43.9 [facility] Work Phone: [phone] Erythrocyte distribution width (RBC) [Ratio] 13.0 % 11.6-14.6 [facility] Work Phone: [phone] Immature granulocytes/100 WBC (Bld) 0.300 % 0.0-0.9 [facility] Work Phone: [phone] Comment on above: IG% - Immature Granu locytes (promyelocytes, myelocytes and metamyelocytes) > 1% indicates that a LEFT SHIFT is Present. MCH (RBC) [Entitic mass] 26.6 pg 27.0-32.0 [facility] Work Phone: [phone] Nucleated RBC/100 WBC (Bld) [Ratio] 0 % 0-5 [facility] Work Phone: [phone] MCHC Auto (RBC) [Mass/Vol]on 01-29-2022 MCHC (RBC) [Mass/Vol] 31.8 g/dL 32-36 [facility]: [phone] Platelets bldon 01-29-2022 Platelets (Bld) [#/Vol] 303 10*3/uL 150-450 [facility] Work Phone: Lab Report: HSV 1 AND 2 IgGo n 07-02-2017 HSV 2 IgG 2.21 index High 0.00-0.90 [facility] Office Visit: new annualon 1 Documentation of current medications (procedure) Done Invalid Interpretation Code [facility] Fall risk assessment No Invalid Interpretation Code [facility] Tobacco smoking status NHIS Never Invalid Interpretation Code [facility] Tobacco use CPHS Never smoker Invalid Interpretation Code [facility] Lab Report: (P) Urinalysis, Completeon 05-06-2017 Bilirubin Ql (U) [address] [facility] NITRITE UR Negative Invalid Interpretation Code Negative [facility] OCCULT BLOOD-UR [address] [facility] specific gravity, urine 1.010 Invalid Interpretation Code 1.002-1.030 [facility] Urine, clarity Clear Invalid Interpretation Code Clear [facility] Urine, color Yellow Invalid Interpretation Code Yellow [facility] Urine, glucose presence Normal mg/dl Invalid Interpretation Code Normal [facility] Urine, ketones presence Negative Invalid Interpretation Code Negative [facility] Urine, leukocyte esterase presence 25 High Negative [facility] Urine, pH 6.5 [pH] Invalid Interpretation Code 5.0 - 8.0 [facility] Urine, protein 30 mg/dL High [facility] UROBILI 4 mg/dL High Normal [facility] Lab Report: Urinalysis, Comp leteon 05-06-2017 Urine, bacteria in sediment 1 /[HPF] Invalid Interpretation Code None Seen [facility] Urine, epithelial cells in sediment 0-5 SEEN Invalid Interpretation Code 5-10 [facility] Urine, erythrocytes in sediment by volume 0-5 SEEN Invalid Interpretation Code 0-5 [facility] Urine, mucus presence in sediment 1+ Invalid Interpretation Code [facility] WBC (Leukocytes) 0-5 SEEN Invalid Interpretation Code 0-5 [facility] Office Visit: UC: migraine/f everon 05-06-2017 blood in urine (hemoglobin) by dipstick non-hemolyzed moderate Invalid Interpretation Code [facility] Glucose mass conc 80 mg/dL Invalid Interpretation Code [facility] HCG.beta subunit ( test) Ql (U) Negative Invalid Interpretation Code [facility] heterophile antibody screen (Monospot) Negative Invalid Interpretation Code [facility] Urine, appearance cloudy Invalid Interpretation Code [facility] Urine, glucose presence Negative Invalid Interpretation Code [facility] Urine, nitrite presence Negative Invalid Interpretation Code [facility] Urine, urobilinogen presence 1 Invalid Interpretation Code [facility] Lab Report: Lyme Screen W/Re flex WBon 03-19-2016 LYME SCN INTERP REF LAB Invalid Interpretation Code [facility] Lab Report: (P) Lyme Screen W/Reflex WBon 03-14-2016 Borrelia burgdorferi (Lyme Disease,) DNA <0.91 Invalid Interpretation Code 0.00-0.90 [facility] Lab Report: CRPon 03-12-2016 C reactive protein (CRP) mg/L Invalid Interpretation Code 0.0-3.0 [facility] Lab Report: Erythrocyte Sed Rateon 03-12-2016 Erythrocyte sedimentation rate 10 mm/h Invalid Interpretation Code 0-20 [facility] Replaced Document: (P) CBC W /Diff, Automatedon 03-12-2016 Absolute Neut 5.7 X10 3/UL Invalid Interpretation Code 2.0-7.7 [facility] Basophils/100 WBC Auto (Bld) 0.2 % Invalid Interpretation Code 0-1 [facility] Eosinophils/100 leukocytes 1.1 % Invalid Interpretation Code 0-5 [facility] Erythrocyte distribution width Auto Ratio (RBC) 13.0 % Invalid Interpretation Code 11.6-14.6 [facility] Erythrocytes (RBC) 5.24 10*6/uL Invalid Interpretation Code 4.2-5.4 [facility] Hematocrit (HCT) 43.5 % Invalid Interpretation Code 37-47 [facility] Hemoglobin mass conc (Bld) 14.0 g/dL Invalid Interpretation Code 12.0-15.0 [facility] Immature granulocytes/100 WBC (Bld) 0.100 % Invalid Interpretation Code 0.0-0.9 [facility] Lymphocytes 2.18 X10 3/UL Invalid Interpretation Code 0.83-4.51 [facility] Lymphocytes/100 leukocytes 25.7 % Invalid Interpretation Code 19-41 [facility] MCH 26.7 pg Low 27.0-32.0 [facility] MCHC mass conc (RBC) 32.2 G/GL Invalid Interpretation Code 32-36 [facility] MCV 83.0 fL Invalid Interpretation Code 81-99 [facility] Monocytes/100 leukocytes 6.1 % Invalid Interpretation Code 0-10 [facility] Neutrophils/100 WBC Auto (Bld) 66.8 % Invalid Interpretation Code 47-70 [facility] Platelets 253 10*3/mm3 Invalid Interpretation Code 150-450 [facility] PMV by Parul 9.8 fL Invalid Interpretation Code 6.2-12.0 [facility] RDW SD 38.9 fL Invalid Interpretation Code 35.1-43.9 [facility] WBC (Leukocytes) 8.5 10*3/uL Invalid Interpretation Code 4.4-11.0 [facility] Lab Report: Basic Metabolic Profile (BMP)on 11-06-2015 Anion gap 5 mmol/L Invalid Interpretation Code 5-15 [facility] BUN/Creatinine Ratio 15.3 RATIO Invalid Interpretation Code 10-20 [facility] Calcium 9.4 mg/dL Invalid Interpretation Code 8.5-10.1 [facility] Chloride 109 mmol/L High 98-107 [facility] CO2 30.0 mmol/L Invalid Interpretation Code 21.0-32.0 [facility] Creatinine 78.51 mL/min Invalid Interpretation Code [facility] Creatinine 0.78 mg/dL Invalid Interpretation Code 0.55-1.20 [facility] eGFR (non-black) 94 mL/min/{1.73_m2} Invalid Interpretation Code >60 [facility] eGFR (non-black) 114 mL/min/{1.73_m2} Invalid Interpretation Code >60 [facility] Glucose mass conc 105 mg/dL Invalid Interpretation Code 70-110 [facility] Potassium molar conc 4.0 mmol/L Invalid Interpretation Code 3.5-5.1 [facility] Sodium 144 mmol/L Invalid Interpretation Code 136-145 [facility] Urea nitrogen 12 mg/dL Invalid Interpretation Code 7-18 [facility] Lab Report: Lipaseon 016 LIPASE 119 U/L Invalid Interpretation Code 73-393 [facility] Lab Report: Liver Profileon 11-06-2015 Alanine aminotransferase (ALT) 22 U/L Invalid Interpretation Code 12-78 [facility] Albumin 4.1 g/dL Invalid Interpretation Code 3.4-5.0 [facility] Alkaline phosphatase (ALP) 61 U/L Invalid Interpretation Code 50-136 [facility] Aspartate aminotransferase (AST) 16 U/L Invalid Interpretation Code 15-37 [facility] Bilirubin (direct) 0.15 mg/dL Invalid Interpretation Code 0.00-0.30 [facility] Bilirubin (total) 1.00 mg/dL Invalid Interpretation Code 0.20-1.00 [facility] Globulin 3.8 g/dL High 2.3-3.5 [facility] Protein 7.9 g/dL Invalid Interpretation Code 6.4-8.2 [facility] Lab Report: ,Serum, hCG Quali.on 11-06-2015 HCG.beta subunit Qn m[IU]/mL Invalid Interpretation Code =>Qualitativ e [facility] Replaced Document: (P) Pregn adriane,Serum,hCG Quali.on 11-06-2015 HCG.beta subunit ( test) Ql Negative Invalid Interpretation Code 0-9 Nonpreg [facility] Lab Report: CRPon 09-27-2014 C-REACTIVE PROT < 2.90 Invalid Interpretation Code 0.0-3.0 [facility] Lab Report: Comprehensive Me tabolic Profilon 09-27-2014 Albumin/Globulin Ratio 1.1 {ratio} Invalid Interpretation Code 0.9-2.4 [facility] Lab Report: Folates, (Folic Acid)on 09-27-2014 Folate 16.20 ng/mL Invalid Interpretation Code 3.1-17.5 [facility] Lab Report: Thyroid Stim Hor rodolfo (TSH)on 09-27-2014 Thyroid stimulating hormone (TSH) 1.05 u[iU]/mL Invalid Interpretation Code 0.358-3.74 [facility] Lab Report: Vitamin B12on Cobalamins (Vitamin B12) 401 pg/mL Invalid Interpretation Code 674-132 [facility] Replaced Document: (P) CBC W /Diff, Automatedon 09-27-2014 Absolute Neut 7.7 X10 3/UL Invalid Interpretation Code 2.0-7.7 [facility] Office Visit: new annualon 0 09-05-2013 General categories [Interpretation] of Cervical or vaginal smear or scraping by Cyto stain Normal Invalid Interpretation Code [facility] Anaerobic culture Bacteria identified Anaer cx Nom (Unsp spec) No growth in 5 days. [facility] Work Phone: Culture, urine Bacteria identified Cx Nom (U) Culture exhibits no growth. [facility] Work Phone: Gram stain for investigation of transfusion reaction Microscopic observation Gram stain Nom (Unsp spec) [facility] Work Phone: Routine wound culture Bacteria identified Cx Nom (Wound) No growth aerobically. [facility] Work Phone: Thin prep Papanicolaou smear with manual screening Genital Culture Escherichia coli [facility] Work Phone: Vital Signs Date Time Vital Sign Value Performing Clinician Facility 05-22-2025 14:36-0400 Body height 149.86 cm Stephanie GRANADOSC Work Phone: [facility] 05-22-2025 14:36-0400 Body mass index (BMI) [Ratio] 24.9 kg/m2 Stephanie Kramer NP-C Work Phone: [facility] 05-22-2025 14:36-0400 Body weight 55.93 kg Stephanie Kramer NP-C Work Phone: [facility] 05-22-2025 14:36-0400 Diastolic blood pressure 85 mm[Hg] Stephanie Kramer NP-C Work Phone: [facility] 05-22-2025 14:36-0400 Systolic blood pressure 122 mm[Hg] Stephanie Kramer NP-C Work Phone: [facility] 05-06-2025 15:58-0400 Body temperature 98.6 [degF] Stephanie Kramer [employer] Work Phone: [facility] 05-06-2025 15:58-0400 Diastolic blood pressure 79 mm[Hg] Stephanie Kramer [employer] Work Phone: [facility] 05-06-2025 15:58-0400 Heart rate 66 /min Stephanie Kramer [employer] Work Phone: [facility] 05-06-2025 15:58-0400 Respiratory rate 18 /min Stephanie Kramer [employer] Work Phone: [facility] 05-06-2025 15:58-0400 SaO2% (BldA) [Mass fraction] 100 % Stephanie Kramer [employer] Work Phone: [facility] 05-06-2025 15:58-0400 Systolic blood pressure 111 mm[Hg] Stephanie Kramer [employer] Work Phone: [facility] 05-06-2025 08:59-0400 Body height 149.86 cm Stephanie Kramer [employer] Work Phone: [facility] 05-06-2025 08:59-0400 Body mass index (BMI) [Ratio] 24.7 kg/m2 Stephanie Kramer [employer] Work Phone: [facility] 05-06-2025 08:59-0400 Body weight 55.47 kg Stephanie Kramer [employer] Work Phone: [facility] 03-14-2025 15:16-0400 Body height 149.86 cm Stephanie Kramer [employer] Work Phone: [facility] 03-14-2025 15:16-0400 Body mass index (BMI) [Ratio] 26.4 kg/m2 Stephanie Kramer [employer] Work Phone: [facility] 03-14-2025 15:16-0400 Body weight 59.42 kg Stephanie Kramer [employer] Work Phone: [facility] 03-14-2025 15:16-0400 Diastolic blood pressure 68 mm[Hg] Stephanie Poeer [employer] Work Phone: [facility] 03-14-2025 15:16-0400 Systolic blood pressure 108 mm[Hg] Stephanie Poeer [employer] Work Phone: [facility] 01-03-2025 10:56-0400 Body temperature 98.1 [degF] Stephanie Poeer [employer] Work Phone: [facility] 01-03-2025 10:56-0400 Diastolic blood pressure 60 mm[Hg] Stephanie Nia [employer] Work Phone: [facility] 01-03-2025 10:56-0400 Heart rate 70 /min Stephanie Poeer [employer] Work Phone: [facility] 01-03-2025 10:56-0400 Respiratory rate 14 /min Stephanie Poeer [employer] Work Phone: [facility] 01-03-2025 10:56-0400 SaO2% (BldA) [Mass fraction] 98 % Stephanie Kramer [employer] Work Phone: [facility] 01-03-2025 10:56-0400 Systolic blood pressure 100 mm[Hg] Stephanie Poeer [employer] Work Phone: [facility] 12-30-2024 11:34-0400 Body temperature 98.8 [degF] Stephanie Poeer [employer] Work Phone: [facility] 12-30-2024 11:34-0400 Diastolic blood pressure 60 mm[Hg] Stephanie Poeer [employer] Work Phone: [facility] 12-30-2024 11:34-0400 Heart rate 80 /min Stephanie Kramer [employer] Work Phone: [facility] 12-30-2024 11:34-0400 SaO2% (BldA) [Mass fraction] 96 % Stephanie Kramer [employer] Work Phone: [facility] 12-30-2024 11:34-0400 Systolic blood pressure 100 mm[Hg] Stephanie Kramer [employer] Work Phone: [facility] 12-30-2024 11:15-0400 Body height 149.86 cm Stephanie Kramer [employer] Work Phone: [facility] 11-02-2023 17:18-0500 Body height 149.86 cm [employer] Stephanie Kramer [employer] Work Phone: [facility] 11-02-2023 17:18-0500 Body mass index (BMI) [Ratio] 24.9 kg/m2 [employer] Stephanie Kramer [employer] Work Phone: [facility] 11-02-2023 17:18-0500 Body temperature 98.1 [degF] [employer] Stephanie Kramer [employer] Work Phone: [facility] 11-02-2023 17:18-0500 Body weight 55.96 kg [employer] Stephanie Kramer [employer] Work Phone: [facility] 11-02-2023 17:18-0500 Diastolic blood pressure 60 mm[Hg] [employer] Stephanie Kramer [employer] Work Phone: [facility] 11-02-2023 17:18-0500 Heart rate 85 /min [employer] Stephanie Kramer [employer] Work Phone: [facility] 11-02-2023 17:18-0500 Respiratory rate 17 /min [employer] Stephanie Kramer [employer] Work Phone: [facility] 11-02-2023 17:18-0500 SaO2% (BldA) [Mass fraction] 98 % [employer] Stephanie Kramer [employer] Work Phone: [facility] 11-02-2023 17:18-0500 Systolic blood pressure 102 mm[Hg] [employer] Stephanie Kramer [employer] Work Phone: [facility] 10-31-2023 11:40-0500 Body temperature 98.3 [degF] [employer] Stephanie Kramer [employer] Work Phone: [facility] 10-31-2023 11:40-0500 Diastolic blood pressure 77 mm[Hg] [employer] Stephanie Kramer [employer] Work Phone: [facility] 10-31-2023 11:40-0500 Heart rate 74 /min [employer] Stephanie Kramer [employer] Work Phone: [facility] 10-31-2023 11:40-0500 Respiratory rate 16 /min [employer] Stephanie Kramer [employer] Work Phone: [facility] 10-31-2023 11:40-0500 SaO2% (BldA) [Mass fraction] 99 % [employer] Stephanie Kramer [employer] Work Phone: [facility] 10-31-2023 11:40-0500 Systolic blood pressure 104 mm[Hg] [employer] Stephanie Kramer [employer] Work Phone: [facility] 10-31-2023 09:38-0500 Body mass index (BMI) [Ratio] 24 kg/m2 [employer] Stephanie Kramer [employer] Work Phone: [facility] 10-31-2023 09:38-0500 Body weight 55.42 kg [employer] Stephanie Kramer [employer] Work Phone: [facility] 05-04-2023 14:53-0400 Body height 152.4 cm [employer] Stephanie Kramer [employer] Work Phone: [facility] 05-04-2023 14:53-0400 Body mass index (BMI) [Ratio] 24 kg/m2 [employer] Stephanie Kramer [employer] Work Phone: [facility] 05-04-2023 14:53-0400 Body weight 55.79 kg [employer] Stephanie Kramer [employer] Work Phone: [facility] 05-04-2023 14:53-0400 Diastolic blood pressure 80 mm[Hg] [employer] Stephanie Kramer [employer] Work Phone: [facility] 05-04-2023 14:53-0400 Heart rate 84 /min [employer] Stephanie Kramer [employer] Work Phone: [facility] 05-04-2023 14:53-0400 Respiratory rate 16 /min [employer] Stephanie Kramer [employer] Work Phone: [facility] 05-04-2023 14:53-0400 SaO2% (BldA) [Mass fraction] 98 % [employer] Stephanie Kramer [employer] Work Phone: [facility] 05-04-2023 14:53-0400 Systolic blood pressure 112 mm[Hg] [employer] Stephanie Kramer [employer] Work Phone: [facility] 04-28-2023 11:07-0400 Body temperature 98 [degF] [employer] Stephanie Kramer [employer] Work Phone: [facility] 04-28-2023 11:07-0400 Diastolic blood pressure 74 mm[Hg] [employer] Stephanie Kramer [employer] Work Phone: [facility] 04-28-2023 11:07-0400 Heart rate 92 /min [employer] Stephanie Kramer [employer] Work Phone: [facility] 04-28-2023 11:07-0400 Respiratory rate 14 /min [employer] Stephanie Kramer [employer] Work Phone: [facility] 04-28-2023 11:07-0400 SaO2% (BldA) [Mass fraction] 98 % [employer] Stephanie Kramer [employer] Work Phone: [facility] 04-28-2023 11:07-0400 Systolic blood pressure 118 mm[Hg] CHARLY Kramer [employer] Work Phone: [facility] 10-13-2022 13:54-0500 Body mass index (BMI) [Ratio] 25.7 kg/m2 Dr. Naheed Kam Work Phone: [facility] 10-13-2022 13:54-0500 Body weight 59.[address] Naheed Kam Work Phone: [facility] 10-13-2022 13:54-0500 Diastolic blood pressure 75 mm[Hg] Dr. Naheed Kam Work Phone: [facility] 10-13-2022 13:54-0500 Systolic blood pressure 113 mm[Hg] Dr. Naheed Kam Work Phone: [facility] 09-14-2022 09:15-0500 Body height 152.[address] Naheed Kam Work Phone: [facility] Work Phone: 09-14-2022 09:15-0500 Body mass index (BMI) [Ratio] 25.2 kg/m2 Dr. Naheed Kam Work Phone: [facility] Work Phone: 09-14-2022 09:15-0500 Body weight 58.[address] Naheed Kam Work Phone: [facility] Work Phone: 09-14-2022 09:15-0500 Diastolic blood pressure 80 mm[Hg] Dr. Naheed Kam Work Phone: [facility] Work Phone: 09-14-2022 09:15-0500 Systolic blood pressure 111 mm[Hg] Dr. Naheed Kam Work Phone: [facility] Work Phone: 08-30-2022 02:06-0500 Diastolic blood pressure 71 mm[Hg] Dr. Naheed Kam Work Phone: [facility] Work Phone: 08-30-2022 02:06-0500 Heart rate 72 /min Dr. Naheed Kam Work Phone: [facility] Work Phone: 08-30-2022 02:06-0500 Respiratory rate 14 /min Dr. Naheed Kam Work Phone: [facility] Work Phone: 08-30-2022 02:06-0500 SaO2% (BldA) [Mass fraction] 99 % Dr. Naheed Kam Work Phone: [facility] Work Phone: 08-30-2022 02:06-0500 Systolic blood pressure 115 mm[Hg] Dr. Naheed Kam Work Phone: [facility] Work Phone: 08-29-2022 23:31-0500 Body height 152.[address] Naheed Kam Work Phone: [facility] Work Phone: 08-29-2022 23:31-0500 Body mass index (BMI) [Ratio] 26.5 kg/m2 Dr. Naheed Kam Work Phone: [facility] Work Phone: 08-29-2022 23:31-0500 Body temperature 97.1 [degF] Dr. Naheed Kam Work Phone: [facility] Work Phone: 08-29-2022 23:31-0500 Body weight 61.[address] Naheed Kam Work Phone: [facility] Work Phone: 08-26-2022 12:00-0500 Body temperature 97.3 [degF] Dr. Naheed Kam Work Phone: [facility] Work Phone: 08-26-2022 12:00-0500 Diastolic blood pressure 65 mm[Hg] Dr. Naheed Kam Work Phone: [facility] Work Phone: 08-26-2022 12:00-0500 Heart rate 98 /min Dr. Naheed Kam Work Phone: [facility] Work Phone: 08-26-2022 12:00-0500 Respiratory rate 18 /min Dr. Naheed Kam Work Phone: [facility] Work Phone: 08-26-2022 12:00-0500 SaO2% (BldA) [Mass fraction] 99 % Dr. Naheed Kam Work Phone: [facility] Work Phone: 08-26-2022 12:00-0500 Systolic blood pressure 110 mm[Hg] Dr. Naheed Kam Work Phone: [facility] Work Phone: 08-24-2022 13:49-0500 Body height 152.[address] Naheed Kam Work Phone: [facility] Work Phone: 08-24-2022 13:49-0500 Body weight 59.[address] Naheed Kam Work Phone: [facility] Work Phone: 08-23-2022 17:55-0500 Body mass index (BMI) [Ratio] 25.4 kg/m2 Dr. Naheed Kam Work Phone: [facility] Work Phone: 08-23-2022 16:11-0500 Body temperature 98.2 [degF] Dr. Naheed Kam Work Phone: [facility] Work Phone: 08-23-2022 16:11-0500 Diastolic blood pressure 75 mm[Hg] Dr. Naheed Kam Work Phone: [facility] Work Phone: 08-23-2022 16:11-0500 Heart rate 98 /min Dr. Naheed Kam Work Phone: [facility] Work Phone: 08-23-2022 16:11-0500 Respiratory rate 18 /min Dr. Naheed Kam Work Phone: [facility] Work Phone: 08-23-2022 16:11-0500 SaO2% (BldA) [Mass fraction] 100 % Dr. Naheed Kam Work Phone: [facility] Work Phone: 08-23-2022 16:11-0500 Systolic blood pressure 111 mm[Hg] Dr. Naheed Kam Work Phone: [facility] Work Phone: 08-23-2022 11:49-0500 Body height 152.[address] Naheed Kam Work Phone: [facility] Work Phone: 08-23-2022 11:49-0500 Body mass index (BMI) [Ratio] 25.4 kg/m2 Dr. Naheed Kam Work Phone: [facility] Work Phone: 08-23-2022 11:49-0500 Body weight 58.[address] Naheed Kam Work Phone: [facility] Work Phone: 08-23-2022 11:01-0500 Body mass index (BMI) [Ratio] 25.4 kg/m2 Dr. Naheed Kam Work Phone: [facility] Work Phone: 08-23-2022 11:01-0500 Body temperature 98.1 [degF] Dr. Naheed Kam Work Phone: [facility] Work Phone: 08-23-2022 11:01-0500 Body weight 59.[address] Naheed Kam Work Phone: [facility] Work Phone: 08-23-2022 11:01-0500 Diastolic blood pressure 73 mm[Hg] Dr. Naheed Kam Work Phone: [facility] Work Phone: 08-23-2022 11:01-0500 Systolic blood pressure 115 mm[Hg] Dr. Naheed Kam Work Phone: [facility] Work Phone: 08-13-2022 15:53-0500 Diastolic blood pressure 77 mm[Hg] Dr. Naheed Kam Work Phone: [facility] Work Phone: 08-13-2022 15:53-0500 Heart rate 96 /min Dr. Naheed Kam Work Phone: [facility] Work Phone: 08-13-2022 15:53-0500 Respiratory rate 14 /min Dr. Naheed Kam Work Phone: [facility] Work Phone: 08-13-2022 15:53-0500 SaO2% (BldA) [Mass fraction] 100 % Dr. Naheed Kam Work Phone: [facility] Work Phone: 08-13-2022 15:53-0500 Systolic blood pressure 124 mm[Hg] Dr. Naheed Kam Work Phone: [facility] Work Phone: 08-13-2022 10:22-0500 Body mass index (BMI) [Ratio] 28.2 kg/m2 Dr. Naheed Kam Work Phone: [facility] Work Phone: 08-13-2022 10:22-0500 Body temperature 97 [degF] Dr. Naheed Kam Work Phone: [facility] Work Phone: 08-13-2022 10:22-0500 Body weight 65.[address] Naheed Kam Work Phone: [facility] Work Phone: 08-12-2022 14:50-0500 Body temperature 98.7 [degF] Dr. Naheed Kam Work Phone: [facility] Work Phone: 08-12-2022 14:50-0500 Diastolic blood pressure 66 mm[Hg] Dr. Naheed Kam Work Phone: [facility] Work Phone: 08-12-2022 14:50-0500 Heart rate 84 /min Dr. Naheed Kam Work Phone: [facility] Work Phone: 08-12-2022 14:50-0500 Respiratory rate 16 /min Dr. Naheed Kam Work Phone: [facility] Work Phone: 08-12-2022 14:50-0500 SaO2% (BldA) [Mass fraction] 98 % Dr. Naheed Kam Work Phone: [facility] Work Phone: 08-12-2022 14:50-0500 Systolic blood pressure 97 mm[Hg] Dr. Naheed Kam Work Phone: [facility] Work Phone: 08-12-2022 09:02-0500 Body temperature 98.6 [degF] Dr. Naheed Kam Work Phone: [facility] Work Phone: 08-12-2022 09:02-0500 Diastolic blood pressure 55 mm[Hg] Dr. Naheed Kam Work Phone: [facility] Work Phone: 08-12-2022 09:02-0500 Heart rate 83 /min Dr. Naheed Kam Work Phone: [facility] Work Phone: 08-12-2022 09:02-0500 Respiratory rate 18 /min Dr. Naheed Kam Work Phone: [facility] Work Phone: 08-12-2022 09:02-0500 SaO2% (BldA) [Mass fraction] 98 % Dr. Naheed Kam Work Phone: [facility] Work Phone: 08-12-2022 09:02-0500 Systolic blood pressure 89 mm[Hg] Dr. Naheed Kam Work Phone: [facility] Work Phone: 08-11-2022 14:11-0500 Body temperature 99.3 [degF] Dr. Naheed Kam Work Phone: [facility] Work Phone: 08-11-2022 14:11-0500 Diastolic blood pressure 58 mm[Hg] Dr. Naheed Kam Work Phone: [facility] Work Phone: 08-11-2022 14:11-0500 Heart rate 81 /min Dr. Naheed Kam Work Phone: [facility] Work Phone: 08-11-2022 14:11-0500 Respiratory rate 16 /min Dr. Naheed Kam Work Phone: [facility] Work Phone: 08-11-2022 14:11-0500 SaO2% (BldA) [Mass fraction] 98 % Dr[facility] Naheed Kam Work Phone: [facility] [facility] Work Phone: 08-11-2022 14:11-0500 Systolic blood pressure 94 mm[Hg] Dr. Naheed Kam Work Phone: [facility] Work Phone: 08-11-2022 06:00-0500 Inhaled oxygen flow rate 4 L/min Dr. Naheed Kam Work Phone: [facility] Work Phone: 08-10-2022 18:21-0500 Body height 151.[address] Naheed Kam Work Phone: [facility] Work Phone: 08-10-2022 18:21-0500 Body mass index (BMI) [Ratio] 26.4 kg/m2 Dr. Naheed Kam Work Phone: [facility] Work Phone: 08-10-2022 18:21-0500 Body weight [address] Naheed Kam Work Phone: [facility] Work Phone: 07-28-2022 14:29-0500 Body mass index (BMI) [Ratio] 26.8 kg/m2 Dr. Naheed Kam Work Phone: [facility] Work Phone: 07-28-2022 14:29-0500 Body weight 62.[address] Naheed Kam Work Phone: [facility] Work Phone: 07-28-2022 14:29-0500 Diastolic blood pressure 72 mm[Hg] Dr. Naheed Kam Work Phone: [facility] Work Phone: 07-28-2022 14:29-0500 Systolic blood pressure 115 mm[Hg] Dr. Naheed Kam Work Phone: [facility] Work Phone: 06-24-2022 17:31-0400 Body mass index (BMI) [Ratio] 26.2 kg/m2 Dr. Naheed Kma Work Phone: [facility] Work Phone: 06-24-2022 17:31-0400 Body weight 60.[address] Naheed Kam Work Phone: [facility] Work Phone: 06-01-2022 14:31-0400 Body temperature 98.2 [degF] Dr. Naheed Kam Work Phone: [facility] Work Phone: 06-01-2022 14:31-0400 Diastolic blood pressure 82 mm[Hg] Dr. Naheed Kam Work Phone: [facility] Work Phone: 06-01-2022 14:31-0400 Heart rate 86 /min Dr. Naheed Kam Work Phone: [facility] Work Phone: 06-01-2022 14:31-0400 Respiratory rate 18 /min Dr. Naheed Kam Work Phone: [facility] Work Phone: 06-01-2022 14:31-0400 SaO2% (BldA) [Mass fraction] 99 % Dr. Naheed Kam Work Phone: [facility] Work Phone: 06-01-2022 14:31-0400 Systolic blood pressure 118 mm[Hg] Dr. Naheed Kam Work Phone: [facility] Work Phone: 05-14-2022 09:00-0400 Body height 152.[address] Naheed Kam Work Phone: [facility] Work Phone: 05-14-2022 09:00-0400 Body mass index (BMI) [Ratio] 26 kg/m2 Dr. Naheed Kam Work Phone: [facility] Work Phone: 05-14-2022 09:00-0400 Body weight 60.[address] Naheed Kam Work Phone: [facility] Work Phone: 05-14-2022 09:00-0400 Diastolic blood pressure 75 mm[Hg] Dr. Naheed Kam Work Phone: [facility] Work Phone: 05-14-2022 09:00-0400 Systolic blood pressure 115 mm[Hg] Dr. Naheed Kam Work Phone: [facility] Work Phone: 02-10-2022 14:47-0400 Body height 152.[address] Naheed Kam Work Phone: [facility] Work Phone: 02-10-2022 14:47-0400 Body mass index (BMI) [Ratio] 25.6 kg/m2 Dr. Naheed Kam Work Phone: [facility] Work Phone: 02-10-2022 14:47-0400 Body weight 59.[address] Naheed Kam Work Phone: [facility] Work Phone: 02-10-2022 14:47-0400 Diastolic blood pressure 70 mm[Hg] Dr. Naheed Kam Work Phone: [facility] Work Phone: 02-10-2022 14:47-0400 Systolic blood pressure 110 mm[Hg] Dr. Naheed Kam Work Phone: [facility] Work Phone: 01-20-2022 12:10-0400 Body temperature 98.4 [degF] Dr. Naheed Kam Work Phone: [facility] Work Phone: 01-20-2022 12:10-0400 Diastolic blood pressure 62 mm[Hg] Dr. Naheed Kam Work Phone: [facility] Work Phone: 01-20-2022 12:10-0400 Heart rate 92 /min Dr. Naheed Kam Work Phone: [facility] Work Phone: 01-20-2022 12:10-0400 Respiratory rate 14 /min Dr. Naheed Kam Work Phone: [facility] Work Phone: 01-20-2022 12:10-0400 SaO2% (BldA) [Mass fraction] 99 % Dr. Naheed Kam Work Phone: [facility] Work Phone: 01-20-2022 12:10-0400 Systolic blood pressure 114 mm[Hg] Dr. Naheed Kam Work Phone: [facility] Work Phone: 06-29-2017 08:07-0400 BMI (Body Mass Index) 24.25 kg/m2 Cindy Vivas NP [facility] 06-29-2017 08:07-0400 Body Temperature 97 [degF] Cindy Vivas [facility] 06-29-2017 08:07-0400 BP Diastolic 74 mm[Hg] Cindy Vivas NP [facility] men's [facility] 06-29-2017 08:07-0400 BP Systolic 109 mm[Hg] Cindy Vivas NP [facility] 06-29-2017 08:07-0400 Height 152.4 cm Cindy Vivas NP [facility] 06-29-2017 08:07-0400 Pulse (Heart Rate) 77 /min Cindy Vivas [facility] 06-29-2017 08:07-0400 Respiratory Rate 16 /min Cindy Vivas NP [facility] 06-29-2017 08:07-0400 Weight 56.34 kg Cindy Vivas NP [facility] 03-11-2016 17:40-0400 BSA (Body Surface Area) 1.52 m2 Cindy Vivas NP [facility] Encounters Encounter Date Encounter Type Care Provider Facility Start: 06-03-2025 ambulatory Elsie Newby Facility:[facility] Start: 05-22-2025 End: 05-22-2025 ambulatory Stephanie Kramer [employer] Work Phone: -[facility] Start: 05-22-2025 End: 05-22-2025 Patient encounter procedure Kathi Keenan NP-C -[facility] Work Phone: Start: 05-10-[address] Barbara Xiao MD -Laboratory Work Phone: Start: 05-10-2025 ambulatory Barbara Xiao Facility :[facility] Start: 05-06-2025 End: 05-06-2025 Emergency department patient visit Stephanie Karmer [employer] Work Phone: -Emergency Department Work Phone: Start: 04-26-2025 Registered Referred HEALTH RIS K ASSESSMENT -Employee Health Start: 04-26-2025 ambulatory Health Risk Assessment Facility:[facility] Start: 04-04-2025 End: 04-04-[address] Elsie Newby DC -[facility] Work Phone: Start: 04-04-2025 End: 04-04-2025 ambulatory Stephanie Kramer [employer] Work Phone: -[facility] Start: 03-14-2025 End: 03-14-[address] Elsie Newby DC -[facility] Work Phone: Start: 03-14-2025 End: 03-14-2025 ambulatory Stephanie Kramer NP-C Work Phone: -[facility] Start: 01-07-2025 End: 01-07-2025 ambulatory Stephanie Kramer [employer] Work Phone: [facility] Work Phone: Start: 01-07-2025 End: 01-07-2025 Patient encounter procedure Stephanie Kramer [employer]-C -Radiology, [facility] Work Phone: Start: 01-07-2025 End: 01-07-2025 ambulatory Stephanie Kramer [employer] Facility:[facility] Start: 01-03-2025 End: 01-03-2025 Patient encounter procedure Luis Armando Scherer [facility] Work Phone: Start: 01-03-2025 End: 01-03-2025 ambulatory Luis Armando POON Facility:[facility] Start: 12-30-2024 End: 12-30-2024 Patient encounter procedure Solomon Luz [employer] -[facility] Work Phone: Start: 12-30-2024 End: 12-30-2024 ambulatory Solomon Luz [employer] Facility:[facility] Start: 10-18-2024 ambulatory Cassy White ty:[facility] Start: 09-21-2024 End: 09-21-2024 Patient encounter procedure Stephanie Kramer [employer] Work Phone: -Laboratory Work Phone: Start: 09-20-2024 End: 09-24-2024 ambulatory STEPHANIE KRAMER [employer]-GLASS S[employer]OTHER Facility:[facility] Start: 09-20-2024 End: 09-24-2024 Outreach Lab OMARI EMERY [employer]I B[employer] TRIMMER-GLASS SMOOTHER [facility] Start: 08-15-2024 ambulatory Cassy Haideri ty:[facility] Start: 08-12-2024 End: 08-12-2024 ambulatory Stephanie Kramer [employer] Facility:[facility] Start: 08-08-2024 End: 08-08-2024 ambulatory Stephanie Kramer [employer] Facility:[facility] Start: 07-23-2024 End: 08-04-2024 ambulatory Cassy Atanasov Facility:[facility] Start: 07-17-2024 End: 07-17-2024 ambulatory Cassy Atanasov Facility:[facility] Start: 07-06-2024 End: 07-06-2024 ambulatory Karen Tonialli PA Facility:[facility] Start: 06-25-2024 End: 07-05-2024 ambulatory Cassy Keenannasov Facility:[facility] Start: 06-21-2024 End: 06-21-2024 ambulatory Igor Friend Facility:[facility] Start: 06-19-2024 End: 06-19-2024 ambulatory Igor Friend Facility:[facility] Start: 06-16-2024 End: 06-16-2024 ambulatory Karen Vaccjosrlli PA Facility:[facility] Start: 06-01-2024 End: 06-01-2024 ambulatory ELDER MAST Facility:[facility] Start: 05-31-2024 End: 05-31-2024 ambulatory Stephanie Kramer NP Facility:[facility] Start: 05-23-2024 End: 05-27-2024 ambulatory STEPHANIE KRAMER [employer]MER-GLASS SMOOTHER Facility:[facility] Start: 05-23-2024 End: 05-27-2024 Outreach Lab VERONICA FRANCO APRN-GLASS SMOOTHER [facility] Start: 05-23-2024 End: 05-23-2024 ambulatory Stephanie Kramer NP Facility:[facility] Start: 11-10-2023 End: 11-10-2023 ambulatory [employer] Stephanie Kramer NP Work Phone: [facility] Work Phone: Start: 11-10-2023 End: 11-10-2023 Patient encounter procedure [employer] Stephanie Kramer [employer] Work Phone: [facility]-Laboratory Work Phone: Start: 11-02-2023 End: 11-02-2023 Patient encounter procedure [employer] Stephanie Kramer [employer] Work Phone: [facility] Work Phone: Start: 10-31-2023 End: 10-31-2023 Emergency department patient visit [employer] Stephanie Kramer [employer] Work Phone: [facility]-Emergency Department Work Phone: Start: 07-01-2023 End: 07-01-2023 ambulatory [facility] Work Phone: Start: 07-01-2023 End: 07-01-2023 Discharged Recurring [facility]-Physical Therapy Work Phone: Start: 07-01-2023 Registered Recurring [employer] Kezia Kramer [employer] Work Phone: [facility]-Physical Therapy Work Phone: Start: 06-28-2023 End: 06-28-2023 ambulatory [employer] Stephanie Kramer [employer] Work Phone: [facility] Work Phone: Start: 06-28-2023 End: 06-28-2023 Patient encounter procedure [employer] Stephanie Kramer [employer] Work Phone: [facility]-Outpatient Breast Imaging Work Phone: Start: 06-02-2023 End: 06-02-2023 ambulatory [employer] Stephanie Kramer [employer] Work Phone: [facility] Work Phone: Start: 06-02-2023 End: 06-02-2023 Patient encounter procedure [employer]C Stephanie Kramer [employer] Work Phone: [facility]-Cat Scan, [facility] Work Phone: Start: 05-31-2023 End: 05-31-2023 ambulatory [employer] Stephanie Kramer [employer] Work Phone: [facility] Work Phone: Start: 05-31-2023 End: 05-31-2023 Patient encounter procedure [employer]-Orquieda Kramer [employer] Work Phone: [facility]-Laboratory Work Phone: Start: 05-04-2023 End: 05-04-2023 Patient encounter procedure [employer]-Orquidea Stephanie Kramer [employer] Work Phone: [facility] Work Phone: Start: 04-28-2023 End: 04-28-2023 Patient encounter procedure [employer]C Stephanie Kramer [employer] Work Phone: [facility] Work Phone: Start: 04-21-2023 Registered Referred [employer]-Orquidea edwardsh Nia [employer] Work Phone: [facility] Start: 01-11-2023 End: 01-11-[address] Naheed Kam Work Phone: [facility] Work Phone: Start: 01-11-2023 End: 01-11-[address] [facility] Start: 10-13-2022 End: 10-13-[address] Naheed Kam Work Phone: [facility] Start: 09-14-2022 End: 09-14-[address] Naheed Kam Work Phone: [facility] Work Phone: Start: 09-14-2022 End: 09-14-[address] [facility] Start: 09-14-2022 End: 09-14-[address] Naheed Kam Work Phone: [facility] Start: 08-29-2022 End: 08-30-2022 Emergency department patient visit Dr. Naheed Kam Work Phone: [facility]-Emergency Department Start: 08-26-2022 Non-patient / Non-visit Dr. Chel Kam Work Phone: [facility] Start: 08-25-2022 Non-patient / Non-visit Dr. Chel Kam Work Phone: [facility] Start: 08-24-2022 Non-patient / Non-visit Dr. Chel Kam Work Phone: [facility] Start: 08-23-2022 End: 08-26-2022 Evaluation and management of inpatient Dr. Naheed Kam [facility] Start: 08-23-2022 Non-patient / Non-visit Dr. Chel Kam Work Phone: [facility] Start: 08-23-2022 [facility]mission [facility] Naheed Kam [facility] Start: 08-23-[address] Naheed Kam Work Phone: [facility] Work Phone: Start: 08-23-2022 End: 08-23-[address] Naheed Kam Work Phone: [facility] Work Phone: Start: 08-23-2022 End: 08-23-[address] Naheed Kam Work Phone: [facility] Start: 08-13-2022 End: 08-13-2022 Emergency department patient visit Dr. Naheed Kam Work Phone: [facility]-Emergency Department Start: 08-12-2022 Non-patient / Non-visit Dr. Chel Kam Work Phone: [facility] Start: 08-11-2022 Non-patient / Non-visit Dr. Chel Kam Work Phone: [facility] Start: 08-10-2022 End: 08-12-2022 Evaluation and management of inpatient Dr. Naheed Kam [facility] Start: 08-10-2022 End: 08-12-[address] Naheed Kam Work Phone: [facility] Work Phone: Start: 08-10-2022 Non-patient / Non-visit Dr. Chel Kam Work Phone: [facility] Start: 07-28-2022 End: 07-28-[address] Naheed Kam Work Phone: [facility] Start: 07-22-2022 End: 07-22-[address] Naheed Kam Work Phone: [facility] Start: 2022 End: [address] Naheed Kam Work Phone: [facility] Start: 06-25-2022 End: 06-25-[address] Naheed Kam Work Phone: [facility] Start: 06-24-2022 End: 06-24-[address] Naheed Kam Work Phone: [facility] Start: 06-18-2022 End: 06-18-[address] Naheed Kam Work Phone: [facility] Work Phone: Start: 06-18-2022 End: 06-18-[address] Naheed Kam Work Phone: [facility]-Outpatient Breast Imaging Start: 06-01-2022 End: 06-01-[address] Naheed Kam Work Phone: [facility] Start: 05-31-2022 End: 05-31-[address] Naheed Kam Work Phone: [facility] Start: 05-14-2022 End: 05-14-[address] Naheed Kam Work Phone: [facility] Start: 05-14-[address] Naheed cunningham [facility] Start: 02-10-2022 End: 02-10-[address] [facility]heed [facility] Start: 02-10-2022 End: 02-10-[address] Naheed Kam Work Phone: [facility] Start: 02-02-2022 End: 02-02-[address] Naheed Kam [facility] Start: 01-29-2022 End: 01-29-[address] Naheed [facility] Start: 01-20-2022 End: 01-20-[address] Naheed Kam Work Phone: [facility] Procedures Date Procedure Procedure Detail Performing Clinician Start: 05-06-2025 End: 05-06-2025 Polymerase chain reaction analysis Stephanie PARKS Work Phone: Start: 05-06-2025 End: 05-06-2025 Trichomonas vaginalis detection Stephanie Kramer [employer] Work Phone: Start: 05-06-2025 Urine culture Stephanie Kramer [employer] Work Phone: Start: 05-06-2025 Transvaginal echography Stephanie Kramer [employer] Work Phone: Start: 05-06-2025 Estimated creatinine clearance Stephanie Kramer [employer] Work Phone: Start: 05-06-2025 Urnls dip stick/tabl et reagent auto microscopy Stephanie Kramer [employer] Work Phone: Start: 05-06-2025 Computed tomography of abdomen and pelvis with intravenous contrast Stephanie Kramer [employer] Work Phone: Start: 04-26-2025 Serum inorganic phos phate measurement Stephanie Kramer [employer] Work Phone: Start: 04-26-2025 Urnls dip stick/tabl et reagent auto microscopy Stephanie Kramer [employer] Work Phone: Start: 01-07-2025 X-ray of chest, PA a nd lateral views Stephanie Kramer [employer] Work Phone: Start: 09-21-2024 Hepatitis B core ant ibody measurement, IgM type Stephanie Kramer [employer]-C Work Phone: Comment on above: Performed at: [address] [id number] Director: Gil Alves PhD, Phone: [phone] Start: 09-21-2024 Hepatitis B surface antigen measurement Stephanie Kramer [employer] Work Phone: Start: 09-21-2024 Hepatitis C antibody measurement Stephanie Kramer [employer] Work Phone: Comment on above: Non Reactive: < 0.8 Equivocal: >/= 0.8 to < 1.0 Reactive: >/= 1.0The [facility] requires that a reactive/equivocal HCV antibody result be sent out for confirmation. HCV Quant by PCR testing. Start: 06-28-2023 Screening mammography N P-C Stephanie Kramer [employer] Work Phone: Start: 06-02-2023 Computed tomography of abdomen and pelvis with contrast [employer] Stephanie Kramer [employer] Work Phone: Start: 05-31-2023 CT of abdomen [employer]-C Kezia abhyun Kramer [employer] Work Phone: Start: 08-23-2022 Biopsy/Inj or Needle [...] Phone: Start: 08-10-2022 Hysterectomy Hysterectomy VERONICA Castellano [employer] Start: 08-10-[address] Sterling Kam Work Phone: Start: 08-05-2022 Hysterectomy VERONICA 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 Naheed Kam Work Phone: Start: 02-02-[address] Naheed aKm Work Phone: Start: 06-30-2017 End: 07-04-2017 Herpes simplex virus 1+2 IgG Ab [Units/volume] in Serum Cindy S Ortega [employer] Work Phone: Start: 06-29-2017 End: 06-29-2017 Urnls dip stick/tablet rgnt non-auto w/o micrscp Cindy Vivas [employer] Work Phone: Start: 06-16-2017 End: 06-16-2017 Appl [...] test) [Presence] in Serum or Plasma Naheed A Malys, DO Work Phone: Start: 08-21-2015 End: 12-02-2015 Us pelvic nonobstetric real-time image complete Naheed Kam, DO Work Phone: Start: 09-27-2014 End: 09-27-2014 *B12FO Vitamin B12 and Folates Naheed Kam, DO Work Phone: Start: 09-27-2014 End: 09-27-2014 *CBC with Differential Naheed Kam DO Work Phone: Start: 09-27-2014 End: 10-01-2014 *CELIAC Celiac Disease AB [id number] Naheed Kam, DO Work Phone: Start: 09-27-2014 [...] 09-27-2014 End: 09-27-2014 Erythrocyte sedimentation rate Naheed Kam, DO Work Phone: Start: 09-27-2014 End: 09-27-2014 Thyrotropin [Units/volume] in Serum or Plasma Naheed Kam, DO Work Phone: Start: 08-22-2014 End: 09-02-2014 *PAPIG6 Cytopath, Cerv/Vag, Fluid Auto Redo Naheed Kam, DO Work Phone: Start: 08-22-2014 End: 09-02-2014 Urnls dip stick/tablet rgnt non-auto w/o micrscp Naheed Kam, DO Work Phone: Anaerobic microbial culture Dr. Naheed Kam Work Phone: Cytopathology proced ure, preparation of smear, genital source Dr. Naheed Kam Work Phone: H/O: hysterectomy Status post hysterectomy Dr. Naheed Kam Work Phone: Comment on above: [facility] H/O: hysterectomy History of hysterectomy Dr. Naheed Kam Work Phone: Investigation of tra nsfusion reaction Dr. Naheed Kam Work Phone: Microbial culture, routine D aroldo Kam Work Phone: Urine culture Dr. Naheed Kam Work Phone: Plan of Treatment Date Care Activity Detail Author Start: 05-22-[address] [facility] Start: 05-06-2025 Bacteria identified in Urine by Culture Urine Culture [facility] Start: 05-06-2025 [facility] Start: 03-25-2025 Chiropractic manipulation [facility] Start: 10-31-2023 [facility] Start: 08-26-2022 Patient discharge [facility] Work Phone: Start: 08-26-[address] [facility] Work Phone: Start: 08-25-2022 [facility] Work Phone: Start: 08-23-2022 Ambulation without limitation [facility] Work Phone: Start: 08-23-2022 Measuring intake and output [facility] Work Phone: Start: 08-23-2022 Admission procedure [facility] Work Phone: Start: 08-23-2022 Following clinical pathway protocol [facility] Work Phone: Start: 08-23-2022 Admission procedure [facility] Work Phone: Start: 08-23-2022 [facility] Work Phone: Start: 08-23-2022 Consultation [facility] Work Phone: Start: 08-23-[address] [facility] Work Phone: Start: 08-23-2022 Oxygen therapy [facility] Work Phone: Start: 08-23-2022 Vital signs measurements [facility] Work Phone: Start: 08-23-[address] [facility] Work Phone: Start: 08-23-2022 Patient referral to dietitian [facility] Work Phone: Start: 08-12-2022 Patient discharge [facility] Work Phone: Start: 08-12-2022 Removal of urinary catheter [facility] Work Phone: Start: 08-11-2022 Introduction of urinary catheter [facility] Work Phone: Start: 08-10-2022 Following clinical pathway protocol [facility] Work Phone: Start: 08-10-2022 Admission procedure [facility] Work Phone: Start: 08-10-2022 Ambulation therapy management [facility] Work Phone: Start: 08-10-2022 Continuous pulse oximetry [facility] Work Phone: Start: 08-10-2022 Elevation of head of bed [facility] Work Phone: Start: 08-10-2022 Incentive spirometry [facility] Work Phone: Start: 08-10-2022 Measuring intake and output [facility] Work Phone: Start: 08-10-2022 Notification of physician [facility] Work Phone: Start: 08-10-2022 Oxygen therapy [facility] Work Phone: Start: 08-10-2022 Patient education [facility] Work Phone: Start: 08-10-2022 Procedures relating to eating and drinking [facility] Work Phone: Start: 08-10-2022 Taking patient vital signs [facility] Work Phone: Start: 08-10-2022 [facility] Work Phone: Start: 08-10-2022 Introduction of urinary catheter [facility] Work Phone: Start: 08-10-2022 Admission procedure [facility] Work Phone: Start: 08-10-2022 Anesthesia vaginal hysterectomy incl biopsy ANESTH VAGINAL HYSTERECTOMY [facility] Work Phone: Start: 08-10-2022 Iv infusion ther proph addl sequential to 1 hr TX/PROPH/DG ADDL SEQ IV INF [facility] Work Phone: Start: 08-10-2022 Laps w/vag hysterect 250 gm/&rmvl tube&/ovaries LAPARO-VAG HYST INCL T/O [facility] Work Phone: Start: 06-30-2017 End: 07-04-2017 Herpes simplex virus 1+2 IgG Ab [Units/volume] in Serum *HS12G Herpes Simplex Antibody [facility] Start: 06-29-2017 End: 06-29-2017 *CUUID - Urine NAKIA Culture - Identificatn *CUUID - Urine NAIKA Culture - Identificatn [facility] Start: 06-29-2017 End: 06-29-2017 Bacteria genital culture *CUV - Culture, VAG/CX Comprehensive [facility] Start: 06-16-2017 End: 06-16-2017 Follow up Appt 2x/week Follow up Appt 2x/week [facility] Start: 05-06-2017 End: 05-06-2017 Referral to physician Follow Up with Primary Care Physician [facility] Start: 05-06-2017 End: 05-06-2017 Urinalysis complete panel - Urine *UAC- Urinalysis, Complete w/ Micro [facility] Start: 03-11-2016 End: 03-12-2016 *CBC with Differential *CBC with Differential [facility] Start: 03-11-2016 End: 03-19-2016 Borrelia burgdorferi Ab [interpretation] in Serum *LYMS Lyme Screen w/Reflx WB [id number] [facility] Start: 03-11-2016 End: 03-15-2016 C reactive protein (hsCRP) *CRP - C-Reative Protein [facility] Start: 03-11-2016 End: 03-12-2016 Erythrocyte sedimentation rate *Sedimentation Rate (ESR) [facility] Start: 03-11-2016 End: 03-12-2016 Heterophile antibody presence *Infectious [place] Screen [facility] Start: 08-21-2015 End: 12-02-2015 HCG ( test) Ql *PREGS - Qualitative, Serum [facility] Start: 08-21-2015 End: 12-02-2015 Us pelvic nonobstetric real-time image complete US Pelvis [facility] Start: 09-27-2014 End: 09-27-2014 *B12FO Vitamin B12 and Folates *B12FO Vitamin B12 and Folates [facility] Start: 09-27-2014 End: 09-27-2014 *CBC with Differential *CBC with Differential [facility] Start: 09-27-2014 End: 10-01-2014 *CELIAC Celiac Disease AB [id number] *CELIAC Celiac Disease AB [id number] [facility] Start: 09-27-2014 End: 09-27-2014 *CMP Complete Metabolic Panel *CMP Complete Metabolic Panel [facility] Start: 09-27-2014 End: 09-27-2014 C reactive protein (hsCRP) *CRP - C-Reative Protein [facility] Start: 09-27-2014 End: 12-02-2015 Ct abdomen & pelvis w/contrast material CT Abdomen/pelvis with contrast [facility] Start: 09-27-2014 End: 12-02-2015 Ct abdomen w/o contrast material CT Abdomen [facility] Start: 09-27-2014 End: 09-27-2014 Erythrocyte sedimentation rate *Sedimentation Rate (ESR) [facility] Start: 09-27-2014 End: 09-27-2014 Thyroid stimulating hormone (TSH) *TSH [facility] Start: 08-22-2014 End: 09-02-2014 *PAPIG6 Cytopath, Cerv/Vag, Fluid Auto Redo *PAPIG6 Cytopath, Cerv/Vag, Fluid Auto Redo [facility] Start: 08-22-2014 End: 09-02-2014 Urnls dip stick/tablet rgnt non-auto w/o micrscp UA Dipstick (Office) [facility] Anaerobic Culture Anaerobic Culture [facility] Work Phone: Anaerobic microbial culture Anaerobic Culture [facility] Work Phone: Bacteria identified in Unspecified specimen by Anaerobe culture [facility] Work Phone: Bacteria identified in Wound by Culture [facility] Work Phone: Genital Culture Genital Culture [facility] Work Phone: Microscopic observat ion [Identifier] in Unspecified specimen by Gram stain Gram Stain [facility] Work Phone: Patient Education [facility] Patient referral [facility] Work Phone: Urine culture [facility] US Pelvis [facility] Wound Culture Wound Culture [facility] Work Phone: Immunizations Immunization Date Immunization Notes Care Provider Gail vega 07-11-2023 influenza virus vaccine, unspecified formulation VERONICA FRANCO [employer]I [employer] SMOOTHER [facility] [place] 07-11-2023 influenza, injectabl e, quadrivalent, preservative free [employer] [facility] Stephanie Kramer [employer] Work Phone: [facility] 07-21-2022 influenza, injectabl e, quadrivalent, preservative free [employer] Stephanie Kramer [employer] Work Phone: [facility] 07-21-2022 influenza, seasonal, injectable Dr. Naheed Kam Work Phone: [facility] 06-17-2021 influenza, injectabl e, quadrivalent, preservative free [employer] Stephanie Kramer [employer] Work Phone: [facility] 06-17-2021 influenza, seasonal, injectable Dr. Naheed Kam Work Phone: [facility] 06-23-2020 influenza, injectabl e, quadrivalent, preservative free [employer] Stephanie Kramer [employer] Work Phone: [facility] 06-23-2020 influenza, seasonal, injectable Dr. Naheed Kam Work Phone: [facility] 07-30-2019 influenza, injectabl e, quadrivalent, preservative free [employer] Stephanie Kramer [employer] Work Phone: [facility] 07-30-2019 influenza, seasonal, injectable Dr. Naheed Kam Work Phone: [facility] 10-11-2018 diphtheria, tetanus toxoids and acellular pertussis vaccine, unspecified formulation Dr. Naheed Kam Work Phone: [facility] Work Phone: 10-11-2018 tetanus toxoid, reduced diphtheria toxoid, and acellular pertussis vaccine, adsorbed Dr. Naheed Kam Work Phone: [facility] 07-20-2018 influenza, injectabl e, quadrivalent, preservative free [employer] Stephanie Kramer [employer] Work Phone: [facility] 07-20-2018 influenza, seasonal, injectable Dr. Naheed Kam Work Phone: [facility] 06-19-2017 influenza, injectabl e, quadrivalent, preservative free [employer] Stephanie Kramer [employer] Work Phone: [facility] 06-19-2017 influenza, seasonal, injectable Dr. Naheed Kam Work Phone: [facility] 06-04-2002 hepatitis B pediatri c vaccine VERONICA FRANCO [employer] SMOOTHER [facility] 04-20-2002 hepatitis B pediatri c vaccine VERONICA FRANCO [employer] SMOOTHER [facility] 04-20-2002 measles/mumps/rubell a virus vaccine VERONICA FRANCO [employer] S[employer]OTHER [facility] 10-31-1990 hepatitis B pediatri c vaccine VERONICA FRANCO [employer] SMOOTHER [facility] 10-31-1990 measles/mumps/rubell a virus vaccine VERONICA FRANCO [employer] SMOOTHER [facility] Payers Date Payer Category Payer Unknown [id number] 2024 Self-pay [id number] 2024 Unknown [id number] 2017 Unknown [id number] 1989 Unknown [id number] .16.8 40.1.372925.3.579.2.627 1989 Unknown [id number] .16.8 40.1.848026.3.579.2.627 Unknown [facility] PACKAGE PLAN [id number] Unknown [id number] 2.16.8 40.1.012759.3.579.2.462 Unknown [id number] 2.16.8 40.1.990260.3.579.2.462 Unknown [id number] 2.16.8 40.1.997677.3.579.2.462 Unknown [id number] 2.16.8 40.1.089011.3.579.2.462 Unknown [id number] 2.16.8 40.1.448308.3.579.2.462 Unknown [id number] 2.16.8 40.1.441778.3.579.2.462 Unknown [id number] 2.16.8 40.1.785199.3.579.2.462 Unknown [id number] 2.16.8 40.1.524290.3.579.2.462 Unknown [id number] 2.16.8 40.1.045313.3.579.2.462 Unknown [id number] 2.16.8 40.1.749083.3.579.2.462 Unknown [id number] 2.16.8 40.1.272848.3.579.2.462 Unknown [id number] 2.16.8 40.1.198296.3.579.2.462 Unknown [id number] 2.16.8 40.1.460731.3.579.2.462 Unknown [id number] 2.16.8 40.1.583295.3.579.2.462 Unknown [id number] 2.16.8 40.1.224850.3.579.2.462 Unknown [id number] 2.16.8 40.1.896348.3.579.2.462 Unknown [id number] 2.16.8 40.1.169056.3.579.2.462 Unknown [id number] 2.16.8 40.1.724495.3.579.2.462 Unknown [id number] 2.16.8 40.1.499628.3.579.2.462 Unknown [id number] 2.16.8 40.1.923307.3.579.2.462 Unknown [id number] 2.16.8 40.1.732764.3.579.2.462 Unknown [id number] 2.16.8 40.1.543743.3.579.2.462 Unknown [id number] 2.16.8 40.1.232920.3.579.2.462 Unknown [id number] 2.16.8 40.1.258818.3.579.2.462 Unknown [id number] 2.16.8 40.1.491183.3.579.2.462 Unknown [id number] 2.16.8 40.1.468922.3.579.2.462 Social History Date Type Detail Facility Start: 01-20-2022 End: 11-02-2023 Tobacco smoking status NHIS Unknown if ever smoked [facility] Start: 11-03-2020 None [facility] Start: 11-03-2020 Spouse/ Signif icant Other [facility] Start: 1990 Sex Assigned At Female [facility] Start: 10-11-2017 Non-smoker [facility] Start: 01-10-2023 End: 05-06-2025 Tobacco smoking status Never smoked tobacco (finding) [facility] [place] Sex Assigned At 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 [id number] FDA Start: 08-10-2022 Laparoscopy with vaginal hysterectomy [...] Assessment Result Facility 08-26-2022 Functional status Ambulates [facility] Work Phone: 08-12-2022 Functional status Ambulates [facility] Work Phone: 08-11-2022 Functional status Chair [facility] Work Phone: Mental Status Date Assessment Result Facility 10-31-2023 Cognitive function Level Of Cons ciousness Awake;Alert;Appropriate;Follow s Commands [facility] Work Phone: 08-26-2022 Cognitive function Voice/Name [facility] Work Phone: 08-23-2022 Cognitive function Awake;Alert;A ppropriate;Follow s Commands [facility] Work Phone: 08-13-2022 Cognitive function Level Of Cons ciousness Awake;Alert;Appropriate;Follow s Commands [facility] Work Phone: 08-12-2022 Cognitive function Voice/Name [facility] Work Phone: 08-11-2022 Cognitive function Level Of Cons ciousness Awake;Alert;Appropriate;Follow s Commands [facility] Work Phone: 08-11-2022 Cognitive function Voice/Name [facility] Work Phone: Clinical Notes 05-25-2024 to 05-06-2025 Note Date & Type Note Facility 05-06-2025 Discharge summary [facility] 05-06-2025 Radiology Diagnostic study note [facility] Imaging Services [address] [place], [place] [address] Transvaginal Non- MR#: [id number] Acct: [id number] Name: BARBARA QUINTANILLA Rep #: [id number] : 1990 F 34 From: Shannan Miller MD PCP: CHARLY Gerard Status: RE G ER Study:Transvaginal Non- Date of Exam: 05/06/25 Exam# [id number] Ordering Dr: Garett Kirkpatrick DO PROCEDURE: TRANSVAGINAL NON- 05/06/2025 REASON FOR EXAM: RULE OUT OVARIAN TORSION TECHNIQUE: Procedure Code: USTVAG Modality: US Procedure: TRANSVAGINAL NON- COMPARISON: CT of the same day FINDINGS: Uterus: Hysterectomy Right ovary: 4.6 x 4.6 x 4.0 cm. Color and spectral Doppler flow is present. Multiple small follicles are seen. Complex cyst right ovary 2.5 x 2.4 x 1.5 cm. Cystic structure adjacent to the right ovary with homogeneous internal echoes and no color flow is 3.3 x 3.7 x 1.8 cm. On the ultrasound this appears to be adjacent to the ovary rather than emanating from the ovary. Hydrosalpinx is present. Left ovary: 3.2 x 2.8 x 2.0 cm. Color and spectral Doppler flow is present. Other: Moderate free fluid US/Transvaginal Non- IMPRESSION: 1. Flow is present to the ovaries. 2. Complex cyst right adnexa is either adjacent to or emanating from the right ovary. Ultrasound shows these as more separate structures, while CT shows this to be more closely associated with the ovary. No color flow associated with the lesion. Right hydrosalpinx is present as well. Findings may be the sequelae of current or prior infection or inflammation including pelvic inflammatory disease. Correlate with history and laboratory values. 3. Hysterectomy 4. Moderate free fluid. Reading Location: [id number] CC: CHARLY Kramer; Dr. Garett Walker DO ~ Phys Assistant: Signed [facility] 05-06-2025 Discharge summary Note Date/Time May 06, 2025 3:53pm [facility] Medical Records Department [address] [place] [id number] Emergency Department Summary 05/06/25 MR#: [id number] Acct: [id number] Name: BARBARA QUINTANILLA Rep #:[id number] : 1990 34 From: Garett frederick DO PCP: CHARLY Gerard Status:RE G ER Location: ED ADDENDUM by Dr. Garett Walker DO on 05/06/25 at 1553 Will send copy to [employer] 05/06/25 1553<Electronically signed by Garett Walker DO> Cosigner Signature (if applicable): cc: CHARLY Kramer; Dr. Nisha Edouard DO ~* Signed HPI History of Present Illness Chief Complaint: Abd Pain Narrative Narrative: Chief complaint and HPI: 34-year-old female with past medical history of hysterectomy presents for evaluation of right lower quadrant abdominal pain. Onset of symptoms yesterday evening. Associated symptom is nausea. Denies any fever,chills, shortness of breath, chest pain, diarrhea, constipation, dysuria, hematuria. States it feels similar to a pelvic abscess she had in the past. She denies any vaginal bleeding or discharge. No concern for STI. Review of systems: See HPI Medications: As listed on the chart Allergies: As listed on the chart PFSH: Per chart Vital signs: As listed on the chart. Reviewed. Physical exam: Gen: A&O x3, NAD Head: Normocephalic, atraumatic Eyes: No sclera icterus, conjunctiva clear ENT: Moist mucous membranes Neck: Trachea midline, No JVD CV: RRR, no murmurs, no peripheral edema Resp: Lungs CTA BL, no w/r/c GI: Abd soft, non-distended, tender to palpation in the right lower quadrant, norebound or rigidity Pelvic: Normal external genitalia. No lesions, masses, or rashes appreciated. Noactive vaginal bleeding or discharge noted. No cervix visualized Musc: Full ROM, no deformity Skin: Warm, dry Neuro: Alert, oriented, grossly intact, sensation intact Psych: Cooperative, appropriate mood and affect [facility] Medical History Wears glasses Wears contact lenses Heartburn Breast mass, left Abnormal mammogram of left breast COVID-19 Mass of head Anxiety and depression Frequent headaches Home Medications ?Medication ?Instructions ?Recorded ?Last Taken ?Type escitalopram oxalate 10 mg tablet 10 mg PO DAILY 04/2506/18/24 History valacyclovir 500 mg tablet 500 mg PO DAILY PRN Cold So res 04/25/24 Unknown History Allergy/AdvReac Type Severity Reaction Status Date / Time hydromorphone (From Dilaudid) AdvReac Other Verified 05/06/25 08:59 oxycodone (From Percocet) AdvReac Nausea Verified 05/06/25 08:59 Family History Father Diabetes Hypertension Mother Hypertension Surgical History Status post hysterectomy History of section History of dilation and curettage lumpectomy back of head Social History Smoking Status: Never smoker alcohol intake: current alcohol intake frequency: holidays/special occasions only details: pre- substance use type: does not use caffeine: Yes what type of physical activity do you participate in: walking and other details: cardio frequency: 5-6 times per week seatbelt use: always do you feel safe at home: Yes additional social history: [place] Patient works at [employer] EXAM Physical Exam Const Vital Signs: 05/06/25 08:59 05/06/25 12:11 05/06/25 14:10 Temperature 98.2 F 98.8 F Temperature Source Temporal Oral Pulse Rate 101 H 83 66 Respiratory Rate 16 16 18 Blood Pressure 127/91 H 102/72 111/79 Blood Pressure Mean 103 82 89 Pulse Ox 100 100 100 Oxygen Delivery Method Room Air Room Air Room Air MDM MDM MDM Narrative Medical decision making narrative: 34-year-old female with past medical history of hysterectomy presents for evaluation of right lower quadrant abdominal pain. Differential diagnosis includes but is not limited to acute appendicitis, gastroenteritis, colitis, UTI, obstruction, lower suspicion for biliary pathology or pancreatitis. NS bolus, Zofran, NS bolus ordered. Abdominal pain workup ordered including CT abdomen pelvis. CBC without leukocytosis or anemia. CMP unremarkable. Lipase unremarkable. UA negative for UTI but positive for blood. Urine negative. CT abdomen pelvis shows hysterectomy. Moderate free fluid in the pelvis. Hydrosalpinx is seen on the right and there is a large, hyper enhancingcyst involving the right ovary. Pelvic inflammatory disease/infection should beconsidered. Mild circumferential thickening of the rectum. Proctitis should beconsidered. Patient not endorsing any rectal pain. Denies any diarrhea or constipation. Low suspicion for proctitis. Given these findings I did perform a pelvic exam which was unremarkable. Patient denies any vaginal discharge or bleeding. No concern for STI. States she has had the same sexual partner for years. Will add on trichomonas, gonorrhea, chlamydia. She consented. [employer] was consulted and patient was discussed with Dr. Hilton recommended ultrasoundbe performed. Hold off on any antibiotics for now. Pelvic ultrasound shows thatflow is present to the ovaries. There is a complex cyst right adnexa is either adjacent to or emanating from the right ovary. Ultrasound shows these are more separate structures with CT shows this is more closely associated with the ovary. Right hydrosalpinx is present. Findings may be sequelae of current or prior infection or inflammatory including PID. Hysterectomy. Moderate free fluid. Gonorrhea and Chlamydia negative. Trichomonas negative. [employer] reconsulted. Patient was discussed with Dr. Hilton. Plan is to place the patient on a 10-day course of doxycycline. Follow-up outpatient. She is to call the office tomorrow to be scheduled to be seen. She is understanding of the plan. Will prescribed a short course of narcotics along with Tylenol and Motrin as needed for pain. Zofran as needed for nausea. Strict return precautions were explained. She confirmed understanding the plan. Patient stable discharge home. Impression 1. Complex cyst of the right adnexa 2. Right hydrosalpinx Lab Data Labs: Laboratory Results - last 24 hr 05/06/25 05/06/25 05/06/25 09:21 09:25 10:00 WBC 10.4 RBC 5.04 Hgb 13.6 Hct 41.5 MCV 82.3 MCH 27.0 MCHC 32.8 RDW Std Deviation 37.9 RDW Coeff of Eulogio 12.5 Plt Count 212 MPV 9.6 Immature Gran % (Auto) 0.200 Neut % (Auto) 70.2 H Lymph % (Auto) 22.2 [place] % (Auto) 5.9 Eos % (Auto) 1.1 Baso % (Auto) 0.4 Absolute Neuts (auto) 7.3 Absolute Lymphs (auto) 2.30 Nucleated RBC % 0 Sodium 139 Potassium 3.9 Chloride 104 Carbon Dioxide 23.5 Anion Gap 11 BUN 11 Creatinine 0.69 L Estim Creat Clear Calc 88.91 Est GFR (MDRD) Non-Af 116 BUN/Creatinine Ratio 15.5 Glucose 95 Calcium 9.3 Total Bilirubin 1.02 AST 16 ALT 9 Alkaline Phosphatase 47 Total Protein 7.1 Albumin 4.4 Globulin 2.7 Albumin/Globulin Ratio 1.6 Lipase 25 Urine Color Yellow Urine Clarity Sl. Cloudy Urine pH 6.0 Ur Specific [place] 1.015 Urine Protein 15 H Urine Glucose (UA) Normal Urine Ketones Negative Urine Occult Blood 25 H Urine Nitrite Negative Urine Bilirubin Negative Urine Urobilinogen Normal Ur Leukocyte Esterase Negative Urine RBC 0-5 SEEN Urine WBC 0-5 SEEN Ur Squamous Epith Cells 5-10 SEEN Urine Bacteria 2+ Urine Mucus 0 SEEN Urine Test Cancelled Negative Radiography Diagnostic Testing: Clinical Impression(s) from Imaging Studies Abdomen/Pelvis CT 05/06/25 09:09 IMPRESSION: 1. Hysterectomy. 2. Moderate free fluid in the pelvis. Hydrosalpinx is seen on the right and there is a large, hyperenhancing cyst involving the right ovary. The previously identified cyst involving the left ovary has resolved. A small cyst on the left remains. Pelvic inflammatory disease/infection should be considered. 3. Mild circumferential thickening, hyperenhancement of the rectum. Proctitis should be considered. Reading Location: [facility] Transvaginal US 05/06/25 11:58 IMPRESSION: 1. Flow is present to the ovaries. 2. Complex cyst right adnexa is either adjacent to or emanating from the right ovary. Ultrasound shows these as more separate structures, while CT shows this to be more closely associated with the ovary. No color flow associated with the lesion. Right hydrosalpinx is present as well. Findings may be the sequelae of current or prior infection or inflammation including pelvic inflammatory disease. Correlate with history and laboratory values. 3. Hysterectomy 4. Moderate free fluid. Reading Location: [facility] Discharge Plan Triage Chief Complaint: Abd Pain ED Provider: Garett Walker Dx/Rx/DC Orders Prescriptions: No Action valacyclovir 500 mg tablet 500 mg PO DAILY PRN (Reason: Cold Sores) escitalopram oxalate 10 mg tablet 10 mg PO DAILY Primary Care Provider: Stephanie Kramer NP Referrals: Stephanie Kramer NP, [employer] [Primary Care Provider] - Print Language: Nauruan What to do if you have Problems For any increased pain, shortness of breath, bleeding, nausea or vomiting, chestpain, or any unexpected problems, contact your Primary Care Provider. Call [facility] ([phone]) or report to the closest Emergency Room. Call 911 if necessary. 05/06/25 1520 <Electronically signed by Garett Walker DO> Cosigner Signature (if applicable): CC: [employer] Stephanie Kramer; Dr. Nisha Edouard, DO ~ Signed [facility] Work Phone: 1(319) 711-651109-01-2025 Radiology Diagnostic study note [facility] Imaging Services [address] [place] [address] Abdomen/Pelvis W IV Cont ONLY MR#: [id number] Acct: [id number] Name: BARBARA QUINTANILLA Rep #: [id number] : 1990 F 34 From: Edw nia Miller MD PCP: Stephanie Kramer, [employer] Status: RE G ER Study:Abdomen/Pelvis W IV Cont ONLY Date of E xam: 05/06/25 Exam# [id number] Ordering Dr: Garett Kirkpatrick DO PROCEDURE: ABDOMEN/PELVIS W IV CONT ONLY 05/06/2025 REASON FOR EXAM: RIGHT LOWER QUADRANT ABDOMINAL PAIN TECHNIQUE: Procedure Code: [id number] Modality: CT Procedure: ABDOMEN/PELVIS W IV CONT ONLY Coronal and Sagittal reconstruction series were provided. CONTRAST: Isovue 370 VOLUME: 75 mL One or more dose reduction techniques were used (e.g., Automated exposure control, adjustment of the mA and/or kV according to patient size, use of iterative reconstruction technique. RADIATION DOSE SUMMARY: CTDlvol: 20 mGy DLP: 473 mGycm COMPARISON: June 02, 2023 FINDINGS: Lung bases: Clear Liver: Normal Gallbladder: Normal Spleen: Normal Pancreas: Normal Adrenals: Normal Kidneys: Simple cyst left upper pole is 12 mm. Otherwise, the kidneys are unremarkable. Bladder: Normal Reproductive Organs: Fluid density linear, tubular structure is seen on the right side suggestive of hydrosalpinx. Additionally, there is an enlarged right ovary with hyperemia associated with a cystic structure located deep in the pelvis measuring 3.0 x 3.3 x 2.4 cm. Previously identified large cyst associated with the left ovary is nolonger seen. Much smaller cyst is seen involving the left ovary measuring 1.2 x 0.8 x 1.2 cm. Fluid is present in the cul-de-sac. Uterus is surgically absent. Bowel: Stomach is normal. Small bowel is unremarkable. Colon appears normal except for some mild thickening, enhancement of the rectum with minimal stranding present. Appendix: The appendix is not identified. There is no inflammatory process identified in the right lower quadrant to suggest appendicitis. Lymph nodes: None appear enlarged. Vasculature: Normal Peritoneum / Retroperitoneum: No free air or mass. Scant free fluid in the pericolic gutters inferiorly. Moderate free fluid in the pelvis. 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 CT/Abdomen/Pelvis W IV Cont ONLY IMPRESSION: 1. Hysterectomy. 2. Moderate free fluid in the pelvis. Hydrosalpinx is seen on the right and there is a large, hyperenhancing cyst involving the right ovary. The previously identified cyst involving the left ovary has resolved. A small cyst on the left remains. Pelvic inflammatory disease/infection should be considered. 3. Mild circumferential thickening, hyperenhancement of the rectum. Proctitis should be considered. Reading Location: [id number] CC: CHARLY Kramer; [facility]. G[facility]tt [facility]In[facility], DO Phys Assistant: Signed [facility]07-10-2025 Evaluation note* Diagnosis Onset Date Resolution Status Admit Date Segmental and somatic dysfun ction of cervical region acute March 14 2:46pm Segmental and somatic dysfun ction of lumbar region acute March 14, 2025 2:46pm Segmental and somatic dysfun ction of thoracic region acute March 14 2:46pm Segmental and somatic dysfun ction of cervical region acute April 04 2:44pm Segmental and somatic dysfun ction of lumbar region acute April 04, 2025 2:44pm Segmental and somatic dysfun ction of thoracic region acute April 04 2:44pm [facility] Work Phone: 1([phone]) 922-265505-05-2025 Radiology Diagnostic study note [facility] Imaging Services [address] [place], [place] [id number] Chest PA and Lateral MR#: [id number] Acct: [id number] Name: BARBARA QUINTANILLA Rep #: [id number] : 1990 F 34 From: Abhay Canrtell MD PCP: Stephanie Kramer, KIA-C Status: RE G CLI Study:Chest PA and Lateral Date of Exam: 01/07/25 Exam# [id number] Ordering Dr: Stephanie Kramer NP [employer] [facility] PROCEDURE: CHEST PA AND LATERAL 01/07/2025 REASON [...] evidence of acute cardiopulmonary disease. Reading Location: [place] [address] CC: [employer]-C Stephanie Kramer ~ Phys Assistant: Signed [facility]04-27-2025 Evaluation note* Diagnosis Onset Date Resolution Status Admit Date Pharyngitis acute December 30, 025 11:19am Acute bronchitis acute January 03, 2025 10:48am [facility] Work Phone: 1([phone]) 935-408104-27-2025 Evaluation note* Diagnosis Onset Date Resolution Status Admit Date Pharyngitis acute December 30, 025 11:19am Acute bronchitis acute January 03, 2025 10:48am Segmental and somatic dysfunction of cervical region acute J 2024 2:46pm Segmental and somatic dysfunction of lumbar region acute Mar 2:46pm Segmental and somatic dysfunction of thoracic region acute J tony2024 2:46pm [facility] Work Phone: 1(880) 438-810304-27-2025 Evaluation note* Diagnosis Onset Date Resolution Status Admit Date Pharyngitis acute December 30, 025 11:19am Acute bronchitis acute January 03, 2025 10:48am Segmental and somatic dysfunction of cervical region acute J tony2024 2:46pm Segmental and somatic dysfunction of lumbar region acute Mar 2:46pm Segmental and somatic dysfunction of thoracic region acute J tony 2024 2:46pm Segmental and somatic dysfunction of cervical region acute J tony 2024 2:44pm Segmental and somatic dysfunction of lumbar region acute Ruiz y 2024 2:44pm Segmental and somatic dysfunction of thoracic region acute J tony 2024 2:44pm [facility] [employer] [facility] Work Phone: 1([phone]) 873-930401-17-2025 Note. MICRO - Microbiology PROCEDURE: Affirm Pathogens [...] Locations *1: This test was performed at: [address], [facility] , [facility]10-15-2024 [facility] Medical Records Department [address] [place] [id number] History Physical Exam 06/19/24 1430 MR#: [id number] Acct: [id number] Name: BARBARA QUINTANILLA Rep #: [id number] : 1990 33 From: Igor Friend DO PCP: Stephanie Kramer NP-C Status:[facility] Location: [place] [address] History and Physical Date of Admission: 06/19/24 BARBARA QUINTANILLA, is a 33 F who presents to the office today for establishment with [facility]. She has a long hx of GI issues that have worsened over the past couple of months. She has diarrhea or softer stools everyday. She is unable to drive from [place] to [facility] without stopping to have a bm. She was seeing GI in [place] in 2022 as she wasn't able to [...] Appearance: average body habitus and well nourished [facility] Head: normal to inspection Ears: hearing grossly [...] Patient is here today to establish with I. She has long history of GI symptoms [...] unspecified ENTERIC PATHOGEN PANE (more content not included)...[facility] 05-25-2024 Evaluation + Plan note Future [...] Contrast 08/08/24 * US Abdomen Complete 05/30/24 [facility] Chiby complaint+Reason for visit Narrative* Chief Complaint [employer]OYEE HE[employer] 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 COVID-19 ringing in ears/dizzy/scratchy throat COVID TEST/[facility] EMPLOYEE L BREAST MASS, BREAST PAIN Reason for Visit Menorrhagia with irr egular cycle Acute upper respiratory infection Contact with or suspected exposure to other viral communicable disease Dysfunction of left eustachian tube [facility] Work Phone: Chicv complaint+Reason for visit Narrative* Chief Complaint EMPLOYEE HE[employer] 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 COVID-19 ringing in ears/dizzy/scratchy throat COVID TEST/[facility] EMPLOYEE L BREAST MASS, BREAST PAIN reeval [...] Menorrhagia with irregular cycle Status post hysterectomy [facility] Work Phone: Chizp complaint+Reason for visit Narrative* Chief Complaint EMPLOYEE HEALTH 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 COVID-19 ringing in ears/dizzy/scratchy throat COVID TEST/[facility] EMPLOYEE L BREAST MASS, BREAST PAIN reeval [...] Menorrhagia with irregular cycle Status post hysterectomy [facility] Work Phone: Chief complaint+Reason for visit [...] History of hysterectomy Postoperative abscess Postoperative pain [facility] Work Phone: Chief complaint+Reason for visit [...] History of hysterectomy Postoperative abscess Postoperative pain [facility] Work Phone: Chief complaint+Reason for visit Narrative* Chief Complaint EMPLOYEE HE[employer] 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 COVID-19 ringing in ears/dizzy/scratchy throat COVID TEST/[facility] [...] History of hysterectomy Postoperative abscess Postoperative pain [facility] Work Phone: Chief complaint+Reason for visit [...] History of hysterectomy Pelvic pain Postoperative pain [facility] Work Phone: Evaluation + Plan note Future Appointments Appointment Date:06/06/2024 09:30:00 AM Scheduled Provider:STEPHANIE KRAMER Location:[facility] Appointment Type: OV Future Scheduled Tests Laboratory* Basic Metabolic Panel 05/25/24 * Thyroid Stimulating Hormone 05/23/24 * Complete Blood Count 05/23/24 * Complete Metabolic Panel 05/23/24 Radiology* MA Mammo Screening Bilateral w/ Sivakumar 06/22/23 * CT Abdomen w/ Contrast 06/01/23 [facility] evaluation note* Diagnosis Onset Date Resolution Status Acute maxillary sinusitis, unspecified acute [facility] Work Phone: Evaluation note* Diagnosis Onset Date Resolution Status Menorrhagia with irregular cycle acute Ovarian cyst acute [facility] Work Phone: Evaluation note* Diagnosis Onset Date Resolution Status Menorrhagia with irregular cycle acute Acute upper respiratory infection acute Contact with or suspected ex posure to other viral communicable disease acute Dysfunction of left eustachian tube acute [facility] Work Phone: Evaluation note* Diagnosis Onset [...] cycle acute Status post hysterectomy acu te [facility] Work Phone: Evaluation note* Diagnosis Onset [...] e Postoperative abscess acute Postoperative pain acute [facility] Work Phone: Evaluation note* Diagnosis Onset [...] e Pelvic pain acute Postoperative pain acute [facility] Work Phone: Evaluation note* Diagnosis Onset Date Resolution Status History of hysterectomy acut e [facility] Work Phone: Evaluation note* Diagnosis Onset Date Resolution Status Acute sinusitis acute Contact with or suspected ex posure to other viral communicable disease acute Acute sinusitis acute [facility] Work Phone: Evaluation noteNo assessment information available [facility] Work Phone: Evaluation note* Diagnosis Onset Date Resolution Status Acute bronchitis acute [facility] Work Phone: Hospital course Narrative No data available for this section [facility] Hospital Discharge instructions No data available for this section [facility] Hospital Discharge instructionsAdditional Instructions Follow-up with [employer]. Call tomorrow to make an appointment to be seen in the office. Tylenol and Motrin as needed for pain. Narcotics for severe pain. Zofran as needed for nausea. Return back to ED if symptoms change or worsen. Take all of your antibiotics. You are given the first dose here in the emergency department.[facility] Work Phone: Progress note No data available for this section [facility] Reason for referral (narrative)No reason for referral information availableWMer[facility] Work Phone: Chief Complaint and Reason for Visit Chief Complaint CONCERN FOR SINUS IN FECTION E-ORDER BLEEDING Reason for Visit Acute maxillary sinu sitis, unspecified Chief Complaint CONCERN FOR SINUS IN FECTION E-ORDER BLEEDING Annual ([employer]) Reason for Visit Menorrhagia with irr egular [...] CONGESTION January 03, 2025 10:48a m EMPL[employer]EE [employer] January 03, 2025 10:57a m SOB AND RESPIRATORY ILLNESS January 07 1:56pm Reason for Visit Admit Date Pharyngitis December 30, 2024 11: 19am Acute bronchitis January 03, 2025 10:48a m Chief Complaint Admit Date SORE THROAT, EAR PAIN December 30, 2024 1 1:19am CONGESTION January 03, 2025 10:48a m EMPL[employer]EE [employer] January 03, 2025 10:57a m SOB AND [...] CONGESTION January 03, 2025 10:48a m EMPLOYEE [employer] January 03, 2025 10:57a m SOB AND [...] tho racic region April 04, 2025 2:44pm Chief Complaint Admit Date SOB AND RESPIRATORY ILLNESS January 07 1:56pm [employer] March 14, 2025 2:46 pm BACK PAIN April 04, 2025 2:44 pm EMPLOYEE LABS April 26, 2025 5: 53am abd pain May 06, 2025 8:58am Reason for Visit Admit Date Segmental and somatic dysfunction of cer vical [...] tho racic region April 04, 2025 2:44pm Chief Complaint Admit Date REEVAL March 14, 2025 2:46 pm BACK PAIN April 04, 2025 2:44 pm EMPLOYEE LABS April 26, 2025 5: 53am abd pain May 06, 2025 8:58am LIGHTHEADEDNESS/PELVIC ABSCESS May 10, 2025 10:32am ER F/U *ok per [place] May 22, 2025 2:33pm Family History Relationship Condition Age at Onset Recorded Date/T brian father Diabetes mellitus Unknown Hypertension Unknown mother Hypertension Unknown Advance Directives Advance Directive Response Recorded Date/ Time Living Will No July 01 10:08am Power of Doctor Of Naprapathic Medicine No July 01, 2021 10:08am Advance Directive Response Recorded Date/ Time Living Will No August 10 6:21pm Power of Doctor Of Naprapathic Medicine No August 10, 2022 6:21pm Advance Directive Response Recorded Date/ Time Living Will No August 23, 022 4:52pm Power of Doctor Of Naprapathic Medicine No August 23, 2022 4:52pm Advance Directive Response Recorded Date/ Time Living Will No August 29 2 022 11:39pm Power of Doctor Of Naprapathic Medicine No August 29, 2022 11:39pm Advance Directive Response Recorded Date/ Time Living Will No January 17, 2023 1 0:10am Power of Doctor Of Naprapathic Medicine No January 17, 2023 10:10am Advance Directive Response Recorded Date/ Time Living Will No January 19, 2023 3 :04pm Power of Doctor Of Naprapathic Medicine No January 19, 2023 3:04pm Advance Directive Response Recorded Date/ Time Living Will No January 19, 2023 2 :04pm Power of Doctor Of Naprapathic Medicine No January 19, 2023 2:04pm Advance Directive Response Recorded Date/ Time Living Will No October 31 11:22am Power of Doctor Of Naprapathic Medicine No October 31, 2023 11:22am Advance Directive Response Recorded Date/ Time Do you have a Healthcare Power of Doctor Of Naprapathic Medicine? No May 06, 2025 9:54am Summary Purpose Additional Source Comments Care Teams (unrecognized sec tion and content) Team Status: Active Member Role Status Dates Dr. Naheed Kam , DO Family Provider Active Stephanie Kramer NP, [employer]-[facility] Primary Care Provider Activ e Team Status: Inactive Member Role Status Dates Dr. Naheed Kam , DO Primary Care Provider, Referring P rovider Active Dr. Nisha Edouard , DO Attending Provider Activ e Team Status: Inactive Member Role Status Dates Stephanie Kramer NP, [employer] Primary Care Provider, Attending Provider, Referring Provider Active Team Status: Inactive Member Role Status Dates Stephanie Kramer NP, [employer] Primary Care Provider, Refe rring Provider Active Luis Armando POON, PA Attending Provider Active Team Status: Active Member Role Status Dates Stephanie Kramer NP, [employer] Primary Care Provider Activ e Health Risk Assessment Attending Provider, Referring P rovider Active Team Status: Active Member Role Status Dates Stephanie Kramer [employer], [employer] Primary Care Provider Activ brodie robles Attending Provider, Referring Provid er Active Team Status: Inactive Member Role Status Dates Stephanie Kramer [employer], [employer] Primary Care Provider Activ BRODIE Robles Attending Provider, Referring Provid er Active Team Status: Inactive Member Role Status Dates Stephanie Kramer NP, [employer] Primary Care Provider DAMEON Samuels Attending Provider, Referring Provider Active Team Status: Active Member Role Status Dates Stephanie Kramer NP, [employer] Primary Care Provider DAMEON Samuels Attending Provider, Referring Provider Active Team Status: Inactive Member Role Status Dates Stephanie Kramer NP, [employer] Primary Care Provider Activ e Dr. Jed Harp DO Attending Provider, Kun trejo Active Team Status: Inactive Member Role Status Dates RUPERT SALCIDO Attending Provider Active Start: Abhay hamilton 2024 End: September 21, 2024 Stephanie Kramer [employer]TER, [employer] Primary Care Provider Activ e Start: September 21, 2024 End: September 21, 2024 Team Status: Inactive Member Role Status Dates Stephanie Kramer [employer], [employer]-C Primary Care Provider Activ e Start: December 30, 2024 End: December 30, 2024 Stephanie Kramer [employer]TER, [employer]-C Referring Provider Active Start: December 30, 2024 End: December 30, 2024 Solomon Luz [employer]TER, [employer]-C Attending Provider Active S tart: December 30, 2024 End: December 30, 2024 Team Status: Inactive Member Role Status Dates Stephanie Kramer [employer]TER, [employer]-C Primary Care Provider Activ e Start: January 03, 2025 End: January 03, 2025 Stephanie Kramer [employer]TER, [employer]-C Referring Provider Active Start: January 03, 2025 End: January 03, 2025 Luis Armando POON, PA Attending Provider Active Sta rt: January 03, 2025 End: January 03, 2025 Team Status: Inactive Member Role Status Dates Stephanie Kramer [employer]TER, [employer]-C Primary Care Provider Activ e Start: January 07, 2025 End: January 07, 2025 Stephanie Kramer [employer]ORTER, [employer]-C Attending Provider Active Start: January 07, 2025 End: January 07, 2025 Stephanie Kramer [employer]TER, [employer]-C Referring Provider Active Start: January 07, 2025 End: January 07, 2025 Team Status: Active Member Role/Relationship Status Dates Dr. Naheed Kam DO Family Provider Active Stephanie Kramer [employer], [employer]-C Primary Care Provider Activ e Team Status: Inactive Member Role/Relationship Status Dates Stephanie Kramer [employer]TER, [employer]-C Primary Care Provider Activ e Start: December 30, 2024 End: December 30, 2024 Stephanie Kramer [employer]TER, [employer]-C Referring Provider Active Start: December 30, 2024 End: December 30, 2024 Solomon Luz [employer]ORTER, [employer]-C Attending Provider Active S tart: December 30, 2024 End: December 30, 2024 Team Status: Inactive Member Role/Relationship Status Dates Stephanie Kramer [employer]TER, [employer]-C Primary Care Provider Activ e Start: January 03, 2025 End: January 03, 2025 Stephanie Kramer [employer]ORTER, [employer]-C Referring Provider Active Start: January 03, 2025 End: January 03, 2025 Luis Armando POON PA Attending Provider Active Sta rt: January 03, 2025 End: January 03, 2025 Team Status: Inactive Member Role/Relationship Status Dates Stephanie Kramer [employer]TER, [employer]-C Primary Care Provider Activ e Start: January 03, 2025 End: January 03, 2025 Stephanie Kramer [employer]TER, [employer]-C Referring Provider Active Start: January 03, 2025 End: January 03, 2025 Luis Armando POON PA Attending Provider Active Sta rt: January 03, 2025 End: January 03, 2025 Team Status: Inactive Member Role/Relationship Status Dates Stephanie Kramer [employer]TER, [employer]-C Primary Care Provider Activ e Start: January 07, 2025 End: January 07, 2025 Stephanie Kramer [employer]TER, [employer]-C Attending Provider Active Start: January 07, 2025 End: January 07, 2025 Stephanie Kramer [employer]ORTER, [employer]-C Referring Provider Active Start: January 07, 2025 End: January 07, 2025 Team Status: Inactive Member Role/Relationship Status Dates Stephanie Kramer [employer]TER, [employer]-C Primary Care Provider Activ e Start: March 14, 2025 End: March 14, 2025 Stephanie Kramer [employer]TER, [employer]-C Referring Provider Active Start: March 14, 2025 End: March 14, 2025 Dr. Elsie Newby DC Attending Provider Active S tart: March 14, 2025 End: March 14, 2025 Team Status: Inactive Member Role/Relationship Status Dates Stephanie Kramer [employer], [employer]-C Primary Care Provider Activ e Start: April 04, 2025 End: April 04, 2025 Stephanie Kramer [employer]TER, [employer]-C Referring Provider Active Start: April 04, 2025 End: April 04, 2025 Dr. Elsie Newby DC Attending Provider Active S tart: April 04, 2025 End: April 04, 2025 Team Status: Active Member Role/Relationship Status Dates Stephanie Kramer [employer], [employer]-C Primary Care Provider Activ e Team Status: Inactive Member Role/Relationship Status Dates Stephanie Kramer [employer], [employer]-C Primary Care Provider Activ e Start: January 07, 2025 End: January 07, 2025 Stephanie Kramer [employer]TER, [employer]-C Attending Provider Active Start: January 07, 2025 End: January 07, 2025 Stephanie Kramer [employer], [employer]-C Referring Provider Active Start: January 07, 2025 End: January 07, 2025 Team Status: Inactive Member Role/Relationship Status Dates Stephanie Kramer [employer]TER, [employer]-C Primary Care Provider Activ e Start: March 14, 2025 End: March 14, 2025 Stephanie Kramer [employer]TER, [employer]-C Referring Provider Active Start: March 14, 2025 End: March 14, 2025 Dr. Elsie Newby DC Attending Provider Active S tart: March 14, 2025 End: March 14, 2025 Team Status: Inactive Member Role/Relationship Status Dates Stephanie Kramer [employer], [employer]-C Primary Care Provider Activ e Start: April 04, 2025 End: April 04, 2025 Stephanie Kramer [employer]TER, [employer]-C Referring Provider Active Start: April 04, 2025 End: April 04, 2025 Dr. Elsie Newby DC Attending Provider Active S tart: April 04, 2025 End: April 04, 2025 Team Status: Active Member Role/Relationship Status Dates Stephanie Kramer [employer], [employer]-C Primary Care Provider Activ e Start: April 26, 2025 Health Risk Assessment Attending Provider Active Start: April 26, 2025 Health Risk Assessment Referring Provider Active Start: April 26, 2025 Team Status: Inactive Member Role/Relationship Status Dates Stephanie Kramer [employer], [employer]-C Primary Care Provider Activ e Start: May 06, 2025 End: May 06, 2025 Dr. Garett Walker DO Emergency Provider Activ e Start: May 06, 2025 End: May 06, 2025 Team Status: Active Member Role/Relationship Status Dates Stephanie Kramer [employer], [employer]-C Primary care physician Acti ve Team Status: Inactive Member Role/Relationship Status Dates Stephanie Kramer [employer], [employer]-C Primary care physician Acti ve Start: March 14, 2025 End: March 14, 2025 Stephanie Kramer [employer], [employer]-C Referring Provider Active Start: March 14, 2025 End: March 14, 2025 Dr. Elsie Newby DC Attending physician Active Start: March 14, 2025 End: March 14, 2025 Team Status: Inactive Member Role/Relationship Status Dates Stephanie Kramer [employer], [employer]-C Primary care physician Acti ve Start: April 04, 2025 End: April 04, 2025 Stephanie Kramer [employer]TER, [employer]-C Referring Provider Active Start: April 04, 2025 End: April 04, 2025 Dr. Elsie Newby DC Attending physician Active Start: April 04, 2025 End: April 04, 2025 Team Status: Active Member Role/Relationship Status Dates Stephanie Kramer NP, [employer]-C Primary care physician Acti ve Start: April 26, 2025 Health Risk Assessment Attending physician Active Start: April 26, 2025 Health Risk Assessment Referring Provider Active Start: April 26, 2025 Team Status: Inactive Member Role/Relationship Status Dates Stephanie Kramer NP, [employer]-C Primary care physician Acti ve Start: May 06, 2025 End: May 06, 2025 Dr. Garett Walker DO Attending physician Active Start: May End: May 06, 2025 Dr. Garett Walker DO Emergency Department Physician Active Start: May 06, 2025 End: May 06, 2025 Team Status: Active Member Role/Relationship Status Dates Stephanie Kramer NP, [employer] Primary care physician Acti ve Start: May 10, 2025 Dr. Barbara Xiao MD Attending physician Active Start: May 10, 2025 Dr. Barbara Xiao MD Referring Provider Active Start: May 10, 2025 Team Status: Inactive Member Role/Relationship Status Dates Stephanie Kramer NP, [employer] Primary care physician Acti ve Start: May 22, 2025 End: May 22, 2025 Stephanie Kramer NP, [employer]-C Referring Provider Active Start: May 22, 2025 End: May 22, 2025 ROBERTA DoverC Attending physician Active Start: May 22, 2025 End: May 22, 2025 INFORMATION SOURCE (unrecogn ized section and content) DATE CREATED AUTHOR 09/26/2024 [facility] DATE CREATED AUTHOR TATO GRANADOS 05/17/2025 [facility] FOR RECORDS PERTAINING TO PATIENTS WHO ARE [...] BE BASED ON THE PRIMARY CLINICAL RECORDS. [employer] provides no warranty or guarantee of the accuracy or completeness of information in this document.
== END | disposition home or self-care (01) ==
LOC: LABSPEC 15:23
PROVIDERS: PCP Registered Nurse; Referring Provider Nurse Practitioner Family; Visit Provider Nurse Practitioner Family
DX: N89.8 Other specified noninflammatory disorders of vagina (principal); R10.2 Pelvic and perineal pain
CPT/HCPCS: 87070; 87086; 87205

== ENCOUNTER → 2025-05-23 | Outpatient (CLI) | payer OTHER, SELFPAY ==
--- NOTE | 2025-05-23 09:07 | US_ITS ---
PROCEDURE: PELVIC W/ TRANSVAGINAL REASON FOR EXAM: RIGHT OVARIAN CYST TECHNIQUE: Procedure Code: [id number] Modality: US Procedure: PELVIC W/ TRANSVAGINAL COMPARISON: Prior study dated May 06, 2025. FINDINGS: Measurements: Patient is status post hysterectomy. Right Ovary: 3.2 cm x 3.7 cm x 3.1 cm with a volume of 18.9 mL. Left Ovary: 2.5 cm x 2.6 cm x 2 cm with a volume of 6.9 mL. TRANSABDOMINAL: Uterus: Status post hysterectomy. Right ovary: Normal size and echotexture. Left ovary: Normal size and echotexture. Other: There is a 4.3 cm 2.4 cm 2.2 cm fluid-filled tubular structure in the right adnexa. Both ovaries are adjacent to each other. PID should be ruled out. Transvaginal sonography was performed to further characterize the ovarian findings. TRANSVAGINAL: Status post hysterectomy Right ovary: Normal size and echotexture. Left ovary: Normal size and echotexture. Other adnexal findings: 4.3 cm x 2.4 cm 2.2 cm tubular fluid-filled structure in the right adnexa. Cul-de-sac: No free intraperitoneal fluid identified. Tenderness: Present US/Pelvic w/ Transvaginal IMPRESSION: 4.3 cm 2.4 cm 2.2 cm fluid-filled tubular structure in the right adnexa. PID s hould be ruled out. Reading Location: [place] [id number]
== END | disposition home or self-care (01) ==
LOC: US 09:03
PROVIDERS: PCP Registered Nurse; Visit Provider Nurse Practitioner Family
DX: N83.201 Unspecified ovarian cyst, right side (principal)
CPT/HCPCS: 76830; 76856

== ENCOUNTER 2025-07-08 09:23 | Day surgery (SDC) | payer OTHER, SELFPAY ==
--- OUTSIDE RECORDS SUMMARY | 2025-07-04 10:16 | XMS RPT_ITS | CCD ---
Author Organization [facility] Care Team Providers Care Medical Data Analyst Name Role Phone Ortega ADAM, Cindy S Unavailable Dr. Naheed Kam Primary Care Provider Dr. Naheed aKm Referring Provider CLEVE Price Attending Provider CHARLY Vivas NP Attending Provider Dr. Naheed Kam Primary Care Provider Dr. Naheed Kam Referring Provider Dr. Nisha Edouard Attending Provider CLEVE Price Attending Provider CLEVE Jj Attending Provider Dr. Naheed Kam Primary Care Provider Dr. Naheed Kam Referring Provider Dr. Nisha Edouard Attending Provider CLEVE Price Attending Provider CLEVE Jj Attending Provider [phone] Dr. Elsie Newby Attending Provider Dr. Og Kunz Attending Provider [phone] Dr. Nisha Edouard Referring Provider Dr. Nisha Edouard Other Provider Dr. Tigre Mancuso Other Provider Dr. Nisha Edouard Admit Provider Ortega CANARY RAISER, CANARY RAISER-C Cindy Attending Provider [phone] Dr. Bc Weinstein Emergency Provider Dr. Sixto Monge Other Provider Unavaila priya Kam, Dr. Farfan Primary Care Provider Negin, Dr. Farfan Referring Provider Dr. Nisha Edouard Attending Provider Negin, Dr. Farfan Primary Care Provider Negin, Dr. Farfan Referring Provider [phone] Cindy Calvin, Dr. Cameron Attending Provider Nia CANARY RAISER, CANARY RAISER-C [place] Primary Care Provider Nia CANARY RAISER, CANARY RAISER-C Stephanie Referring Provider CLEVE Jj Attending Provider [phone] CLEVE Jj Attending Provider Nia CANARY RAISER, CANARY RAISER-C [place] Primary Care Provider Nia CANARY RAISER, CANARY RAISER-C Stephanie Referring Provider [phone] CLEVE Jj Attending Provider Nia CANARY RAISER, CANARY RAISER-C [place] Primary Care Provider Nia CANARY RAISER, CANARY RAISER-C Stephanie Referring Provider CLEVE Jj Attending Provider NIA FURNITURE CRATER-REFRACTORY MIXER, STEPHANIE A Primary Care Physi rock NIA FURNITURE CRATER-REFRACTORY MIXER, STEPHANIE A Primary Care Un available SALVADOR FURNITURE CRATER-REFRACTORY MIXERVERONICA Attending Unavailabl e NIA FURNITURE CRATER-REFRACTORY MIXER, STEPHANIE A Primary Care Un available RUPERT FURNITURE CRATER-REFRACTORY MIXER, OMARI Attending Unavailab OMARI Ibarra Attending Provider Nia CANARY RAISER-C, Stephanie Primary Care Provider Nia CANARY RAISER-C, Stephanie Referring Provider [phone] Sukh CANARY RAISER-C, Solomon Angel Attending Provider Luis Armando Jj Attending Provider Nia CANARY RAISER-C, Stephanie Attending Provider [phone] Nia CANARY RAISER-C, [place] Primary Care Provider Keyonna RODRIGUEZ, Dr. Zmimerman Attending Provider [phone] Nia CANARY RAISER-C, [place] Primary Care Provider Nia CANARY RAISER-C, [place] Referring Provider [phone] Assessment, Health Risk Attending Provider Unava ilbaltazar Assessment, Health Risk Referring Provider Unava ilable Aaron NAIR, Dr. Bajwa Emergency Provider Nia CANARY RAISER-C, [facility] Care Physician Nia CANARY RAISER-C, Stephanie Referring Provider [phone] Keyonna RODRIGUEZ, Dr. Zimmerman Attending Physician [phone] Assessment, Health Risk Attending Physician Unav ailable Aaron NAIR, Dr. Bajwa Attending Physician Aaron NAIR, Dr. Bajwa Emergency [facility] Physician Dameon PISANO, Dr. Jimenez Attending Physician Dameon PISANO, Dr. Jimenez Referring Provider Ree CANARY RAISER-CKathi Attending Physician [phone] Ree CANARY RAISER-C, Kathi Referring Provider [phone] Joaquina PISANO, Dr. Foley Attending Physician VaccLonnie Adams Attending Unavailable Nia CANARY RAISER, [facility] Unavailabl e Lonnie Kumar Referring Unavailable Barbara Xiao Referring Unavailable Barbara Xiao Attending Unavailable Nia CANARY RAISER, [facility] Unavailabl Cassy Russo Referring Unavailable Nia ADAM, [facility] Unavailabl e Cassy Espinoza Attending Unavailable Cassy Espinoza Referring Unavailable Cassy Espinoza Attending Unavailable Nia CANARY RAISER, [facility] Unavailabl e Nia CANARY RAISER, [place] Attending Unavailabl e Nia CANARY RAISER, [place] Referring Unavailabl e Nia CANARY RAISER, [facility] Unavailabl e Nia CANARY RAISER, [place] Attending Unavailabl e Nia CANARY RAISER, [facility] Unavailabl e Nia CANARY RAISER, [place] Referring Unavailabl e MARYA PRATER Attending Unavailable Nia CANARY RAISER, [facility] Unavailabl e Nia CANARY RAISER, [place] Attending Unavailabl e Nia CANARY RAISER, [place] Referring Unavailabl e Nia CANARY RAISER, [facility] Unavailabl e Kathi Keenan Attending Unavailable Nia CANARY RAISER, [facility] Unavailabl e Garett Walker Attending Unavailabl e Nia CANARY RAISER, [facility] Unavailabl e Elsie Newby Attending Unavailable Nia CANARY RAISER, [facility] Unavailabl e Nia CANARY RAISER, [place] Referring Unavailabl e Elsie Newby Attending Unavailable Nia CANARY RAISER, [facility] Unavailabl e Nia CANARY RAISER, [place] Referring Unavailabl e Nia CANARY RAISER, [place] Referring Unavailabl Cassy Russo Attending Unavailable Nia CANARY RAISER, [facility] Unavailabl e Nia CANARY RAISER, [place] Referring Unavailabl e Nia CANARY RAISER, [facility] UnavailCassy Magallanes Attending Unavailable Elsie Newby Attending Unavailable Nia CANARY RAISER, [place] Referring Unavailabl e Nia CANARY RAISER, [facility] UnavailKathi Villalobos Attending Unavailable Nia CANARY RAISER, [facility] Unavailabl e Nia CANARY RAISER, [place] Referring UnavailKathi Villalobos Referring Unavailable Kathi Keenan Attending Unavailable Nia CANARY RAISER, [facility] UnavailLuis Armando Campos Attending Unavailable Nia CANARY RAISER, [place] Referring Unavailabl e Nia CANARY RAISER, [facility] Unavailabl e Solomon Luz NP Attending Unavailable Nia CANARY RAISER, [place] Referring Unavailabl e Nia CANARY RAISER, [facility] UnavailLuis Armando Campos Attending Unavailable Nia CANARY RAISER, [facility] Unavailabl e Nia CANARY RAISER, [place] Referring Unavailabl e Kathi Keenan Referring Unavailable Nia ADAM, [facility] UnavailOg Soto Attending Unavailable Nia ADAM, [facility] UnavailOg Soto Attending Unavailable Assessment, Health Risk Referring Unavaila ble Assessment, Health Risk Attending Unavaila ble Nia ADAM, [facility] Unavailabl e Allergies Allergy Classification Reported Allergen(s) Allergy Type Date of Onset Reaction(s) Facility (2 sources) NKDA drug allergy 5 [facility] (20 sources) HYDROmorphone; Translations: [hydromorphone] Drug Allergy 2 Other, loss of motor function [facility] Comment on above: Dizzy (20 sources) oxyCODONE Drug Allergy 2 Nausea [facility] Comment on above: Dizzy (1 source) HYDROmorphone Drug Allergy 5 [facility] Repository (1 source) oxyCODONE Drug Allergy 5 [facility] NEGATED: Highlighted row has been ruled out! (1 source) Observed no known allergies at [facility] No Known Allergies 7 propensity to adverse reactions [facility] Medications Current Medications Medication Drug Class(es) [...] PO Q4H 30 August 10, 2022 escitalopram 10 mg oral tablet (13 sources) Serotonin Reuptake Inhibitor Start: 06-14-2024 Lexapro 20 mg oral tablet Dose : 20 mg = 1 tab(s), Oral, qDay, # 90 tab(s), 3 Refill(s), Pharmacy: [facility], Anxiety, 152, cm, 06/14/24 15:21:00 EDT, Height, kg, 06/14/24 15:21:00 EDT, Dosing Weight Start Date: 06/14/24 Status: Ordered Quantity: 90.0 Unit: tab(s) Repeat number: 4 Indication: Anxiety disorder, unspecified Start: 04-25-2024 End: 06-07-2025 take 1 tablet by mouth once daily as needed Escitalopram Oxalate 10 mg tablet Active 10 mg PO DAILY as needed June 07, 2025 2:16pm Complies with drug therapy Start: 12-07-2023 End: 03-06-2024 escitalopram 10 mg oral tabl et Dose : 10 mg = 1 tab(s), Oral, qDay, # 30 tab(s), 2 Refill(s), Pharmacy: [facility], 155, cm, 11/09/23 15:29:00 [...] daily as needed for migraines ASPIRIN-ACETAMINO PHEN-CAFFEINE [id number] Naheed Kam DO acetaminophen 500 mg / [...] by mouth daily as needed DIPHENHYDRAMINE-APAP (SLEEP) [id number] Cassy Segundo LPN acetaminophen 325 mg / HYDROcodone bitartrate 5 mg oral tablet (20 sources) Opioid Agonist Start: 01-19-2019 End: 01-23-2019 Hydrocodone-Acetaminophen ([place] 5-325 Tablet) 1 EACH tablet Discontinued 1 [...] mg / clavulanate 125 mg oral tablet (15 sources) Penicillin-class Antibacterial Start: 04-28-2023 End: 05-08-2023 [...] 2023 12:03am azithromycin 250 mg oral tablet (13 sources) Macrolide Antimicrobial Start: 11-02-2023 End: 04-25-2024 [...] 1 po daily on days 2-5 AZITHROMYCIN [id number] DO madonna Mena coagulrosalind [id number] unt / inulin 250 mg oral capsule (10 sources) Start: 06-14-2024 End: 05-06-2025 take 1 capsule by mouth once daily Bacillus Coagulans-Inulin (Probiotic With Prebiotic) 1 billion-250 cell-mg capsule Discontinued 1 NMA PO DAILY June 14, 2024 12:00am May 06, 2025 9:57am 24 hr buPROPion hydrochloride 150 mg extended release oral tablet (15 sources) Aminoketone Start: 01-21-2023 End: 04-28-2023 take 1 tablet by mouth once daily in the morning Bupropion Hcl (Wellbutrin Xl) 150 mg tablet extended release 24 hr Discontinued 150 mg PO EVERY MORNING January 21, 2023 12:00am April 28, 2023 11:03am busPIRone hydrochloride 15 mg oral tablet (20 sources) Start: 08-26-2022 End: 01-21-2023 take 1 [...] Twice daily x 3 days CIPROFLOXACIN HCL [id number] Naheed Kam DO citalopram 20 mg oral [...] mg PO THREE TIMES A DAY 15 0 October 06, 2017 1:00am January 11, 2018 2:35pm Start: 02-19-2015 End: 03-11-2016 CLINDAMYCIN PHOSPHATE 1 % GE L apply to affected areas twice daily CLINDAMYCIN PHOSPHATE [id number] Naheed Kam DO colestipol hydrochloride 1000 mg oral tablet (10 sources) Bile Acid Sequestrant Start: 07-17-2024 End: 05-06-2025 Colestipol 1 gram tablet Discontinued 1 g PO daily 30 3 July 17, 2024 1:00am May 06, 2025 9:57am cyclobenzaprine hydrochloride 5 mg oral tablet (15 sources) Muscle Relaxant Start: 01-21-2023 End: 04-28-2023 take 1 tablet by mouth three times daily as needed for muscle spasms Cyclobenzaprine 5 mg tablet Discontinued 5 mg PO THREE TIMES A DAY as needed for muscle spasm 30 0 January 21, 2023 12:00am April 28, 2023 [...] 2:36pm dicyclomine hydrochloride 10 mg oral capsule (10 sources) Anticholinergic Start: 04-25-2024 End: 06-14-2024 take [...] PO TWICE A DAY 20 10 May 06, 2025 12:00am May 22, 2025 [...] 100 mg PO TWICE A DAY 20 April 18, 2021 12:00am April 27, 2021 [...] BENSON TABS Once daily DROSPIRENONE-ETHINYL ESTRADIOL TABS [id number] Cindy Vivas NP Start: 06-16-2017 BENSON TABS Once daily DROSPIRENONE-ETHINYL ESTRADIOL TABS [id number] Elsie Newby DC eletriptan 20 mg oral tablet (2 sources) Serotonin-1b and Serotonin-1d Receptor Agonist Start: 10-03-2014 End: 03-11-2016 RELPAX 20 MG TABS 1 po at onset of migraine, may repeat in 2 hours x 1 if no improvement ELETRIPTAN HYDROBROMIDE [id number] Cassy Segundo LPN eluxadoline 75 mg oral tablet (10 sources) mu-Opioid Receptor Agonist Start: 05-17-2024 End: 06-14-2024 take 1 tablet by mouth twice daily at mealtime Eluxadoline (Viberzi) 75 mg tablet Discontinued 75 mg PO TWICE A DAY 60 0 May 17, 2024 12:00am June 14, 2024 1:36pm must administer with a meal/food 168 hr ethinyl estradiol 0.10664 mg/hr / norelgestromin 0.11248 mg/hr transdermal system (20 sources) Progestin, Estrogen [...] 1 TABLET PO daily August 21, 2020 12:00August 21, 2020 3:27pm Start: 08-21-2020 End: 08-21-2020 take 1 tablet by mouth once daily Norgestimate-Ethinyl Estradiol (Sprintec (28)) 0.25-35 mg-mcg tablet Discontinued 1 TABLET PO daily August 21, 2020 1:00August 21, 2020 4:27pm 72 hr fentaNYL 0.012 mg/hr transdermal system (20 sources) Opioid Agonist Start: 10-07-2017 End: 01-11-2018 Fentanyl 12 MCG patch Discontinued 12 ug TRANSDERM. Every 3 Days 5 15 0 October 07, 2017 1:00am January 11, 2018 2:36pm Neoplasm of unspecified behavior of bone, soft tissue, and skin Headache fluconazole 150 mg oral tablet (20 sources) Azole Antifungal Start: 05-22-2025 End: 06-07-2025 Fluconazole 150 mg tablet Discontinued 150 mg PO Every 3 Days 2 0 May 22, 2025 12:00am June 07, 2025 2:16pm may repeat second dose 72 hrs after first dose if symptoms persist Start: 02-13-2021 End: 06-16-2021 take 1 tablet by mouth once Fluconazole (Diflucan) 150 mg tablet Discontinued 150 mg PO ONCE 1 0 February 13, 2021 12:00am June 16, 2021 2:54pm as a single dose Start: 06-09-2020 End: 08-21-2020 Fluconazole (Diflucan) 150 m g tablet Discontinued 150 mg PO Every 3 Days 2 0 June 09, 2020 12:00am August 21, [...] and skin ibuprofen 800 mg oral tablet (20 sources) Nonsteroidal Anti-inflammatory Drug Start: 08-10-2022 End: 01-21-2023 take 1 tablet by mouth every eight hours as needed for pain Ibuprofen 800 mg tablet Discontinued 800 mg PO Q8H as needed for pain 30 7 0 August 10, 2022 1:00am January 21, 2023 2:50pm Start: 05-06-2017 IBUPROFEN CAPS as directed IBUPROFEN CAPS [id number] Annetta Johansen LPN ipratropium bromide 0.021 mg/actuat metered dose nasal spray (6 sources) Anticholinergic Start: 01-03-2025 End: 05-06-2025 Ipratropium Delano 21 mcg (0.03 %) spray,non-aerosol Discontinued 2 NMA INTRANASAL 2 to 3 times per day as needed for postnasal drainage 30 0 January 03, 2025 12:00am May 06, 2025 9:57am administer into each nostril Ipratropium Delano 21 mcg (0.03 %) spray,non-aerosol (4 sources) Start: 01-03-2025 End: 05-06-2025 Ipratropium Delano 21 mcg (0.03 %) spray,non-aerosol Discontinued 2 [...] tablet by mouth daily LEVONORGEST-ETH ESTRAD 91-DAY [id number] Cindy Vivas CANARY RAISER LORazepam 0.5 mg oral tablet (2 sources) Benzodiazepine Start: 08-22-2014 End: 03-11-2016 take 1 tablet by mouth once daily as needed ATIVAN 0.5 MG TABS One tablet by mouth daily as needed LORAZEPAM [id number] Cassy Segundo LPN 1 ml medroxyPROGESTERone acetate 150 mg/ml prefilled [...] po daily x 10 days MEDROXYPROGESTERONE ACETATE [id number] Naheed Kam DO Start: 08-22-2014 End: 02-19-2015 MEDROXYPROGESTERONE ACETATE 150 MG/ML SUSP inject 1 ml IM every 10-12 weeks MEDROXYPROGESTERONE ACETATE [id number] Naheed Kam DO methylPREDNISolone 4 mg oral [...] PKG DIR metoclopramide 5 mg oral tablet (10 sources) Dopamine-2 Receptor Antagonist Start: 06-25-2024 End: [...] po twice daily x 7 days METRONIDAZOLE [id number] Naheed Kam DO naproxen 250 mg oral [...] omeprazole 40 mg delayed release oral capsule (11 sources) Proton Pump Inhibitor Start: 07-17-2024 End: 05-06-2025 take 1 capsule by mouth once daily Omeprazole 40 mg capsule,delayed release(DR/EC) Discontinued 40 mg PO daily 90 2 July 17, 2024 1:00am May 06, 2025 9:57am Start: 05-23-2024 End: 06-22-2024 omeprazole 40 mg oral delaye d release capsule Dose : 40 mg = 1 cap(s), Oral, qDay, # 30 cap(s), 0 Refill(s), Pharmacy: [facility], GERD (gastroesophageal reflux disease), 152.4, cm, [...] 9:00am oxyCODONE hydrochloride 5 mg oral capsule (7 sources) Opioid Agonist Start: 05-06-2025 End: 05-22-2025 take 1 capsule by mouth every six hours as needed for pain Oxycodone 5 mg capsule Discontinued 5 mg PO EVERY 6 HOURS as needed for pain 8 2 0 May 06, 2025 May 22, 2025 2:42pm Complex cyst of uterine adnexa Other noninflammatory disorders of ovary, fallopian tube and broad ligament Pnv #52-Lfkw-Dxzir Acid-Omega3 30 mg iron-10 mg iron-1 mg capsule (3 sources) Start: 09-11-2018 End: 02-26-2019 Pnv #52-Jsci-Piyvg Acid-Omega3 30 mg iron-10 mg iron-1 mg capsule Discontinued 1 NMA PO DAILY 0 September 11, 2018 1:00am February 26, 2019 9:51am Start: 09-11-2018 End: 02-26-2019 Pnv #84-Fkej-Tamxd Acid-Omeg a3 30 mg iron-10 mg iron-1 mg capsule Discontinued 1 NMA PO DAILY September 11, 2018 1:00am February 26, 2019 9:51am Pnv 77-Xden-Stxcf Oanw-Bocvb-6 30 mg iron-10 mg iron-1 mg capsule (7 sources) Start: 09-11-2018 End: 02-26-2019 Pnv 49-Tfxt-Ziedt Xync-Tspnz-7 30 mg iron-10 mg iron-1 mg capsule Discontinued 1 NMA PO DAILY 0 September 11, 2018 1:00am February 26, 2019 9:51am predniSONE 20 mg oral tablet (20 sources) Start: 04-06-2018 End: 06-13-2018 take 1 tablet by mouth twice daily at mealtime Prednisone 20 MG tablet Discontinued 20 mg PO TWICE A DAY 6 April 06, 2018 12:00am June 13, 2018 [...] 2018 9:00am rifAXIMin 550 mg oral tablet (10 sources) Rifamycin Antibacterial Start: 05-14-2024 End: 06-14-2024 [...] 2 hours if no improvement RIZATRIPTAN BENZOATE [id number] Naheed Kam DO sertraline 50 mg oral tablet (20 sources) Serotonin Reuptake Inhibitor Start: 08-26-2022 End: 10-13-2022 take 1 tablet by mouth once daily Sertraline (Zoloft) 50 mg tablet Discontinued 50 mg PO DAILY 30 August 26, 2022 1:00am October 13, 2022 3:30pm sulfamethoxazole 800 mg / trimethoprim 160 mg oral tablet (20 sources) Dihydrofolate Reductase Inhibitor Antibacterial, Sulfonamide Antimicrobial [...] po every night for migraine prevention TOPIRAMATE [id number] Naheed Kam DO tretinoin 0.25 mg/ml topical cream (2 sources) Retinoid Start: 02-19-2015 End: 03-11-2016 TRETINOIN 0.025 % CREA apply to affected areas once daily at bedtime TRETINOIN [id number] Naheed Kam DO valACYclovir 500 mg oral [...] tablet Discontinued 500 mg PO DAILY 30 December 11, 2018 12:00am February 26, 2019 [...] hours x 1 if no better ZOLMITRIPTAN [id number] Naheed Kam, DO Problems Active Problems Problem Classification Problem Date Documented Da te Episodic/Chronic Abdominal pain (20 sources) Pain in pelvis; Translations: [Generalized abdominal pain] Onset: 09-27-2014 08-21-2015 Episodic Acute bronchitis (20 sources) Acute bronchitis; Translations: [Acute bronchitis, unspecified] 11-02-2023 Episodic Anal and rectal conditions (15 sources) Rectal pain; Translations: [Other specified diseases of anus and rectum] 04-19-2024 Episodic Comment on above: gen surgery referral - Hx of rectal abscess Anxiety disorders (3 sources) Anxiety disorder; Translations: [Anxiety] 08-22-2014 Chronic Blindness and vision defects (20 sources) Blurring of visual image; Translations: [Other visual disturbances] 01-18-2019 Episodic Complications of surgical procedures or medical care (20 sources) Abscess; Translations: [Infection following a procedure, other surgical site, initial encounter] Onset: 08-23-2022 Episodic Conditions associated with dizziness or vertigo (1 source) Dizziness and giddiness; Translations: [Dizziness and giddiness] Onset: 05-24-2025 Episodic Contraceptive and procreative management (20 sources) [...] initial encounter for closed fracture] 01-18-2019 Episodic Genitourinary symptoms and ill-defined conditions (15 sources) Urgent desire to urinate; Translations: [Proteinuria] Onset: 08-22-2014 08-22-2014 Episodic Headache, including migraine (20 sources) Migraine; Translations: [Migraine with aura] Onset: 08-22-2014 08-22-2014 Chronic Headache; including migraine (20 sources) Headache; Translations: [Headache] 01-18-2019 Episodic Inflammatory diseases of female pelvic organs (20 sources) Subacute and chronic vaginitis ; Translations: [Subacute and chronic vaginitis] 01-18-2019 Episodic Comment on above: infectious versus in flammatory, consider long term care phlebotomist antifungal, discussed avoidance of irritants. may be [...] [Emotional lability] 07-06-2021 Episodic Nausea and vomiting (10 sources) Nausea; Translations: [Nausea] 07-17-2024 Episodic Neoplasms [...] region; Translations: [Nonallopathic lesions, cervical region] Onset: 06-03-2025 Episodic Other bone disease and musculoskeletal deformities (20 sources) Segmental and somatic dysfunction of lumbar region; Translations: [Nonallopathic lesions, lumbar region] Onset: 06-03-2025 Episodic Other bone disease and musculoskeletal deformities (20 sources) Segmental and somatic dysfunction of thoracic region; Translations: [Nonallopathic lesions, thoracic region] Onset: 06-03-2025 Episodic Other complications of (20 sources) Anemia of ; Translations: [Anemia complicating , unspecified trimester] 02-26-2019 Chronic Comment on above: check Hg at 36 weeks Other complications of (20 sources) Uterine size for dates discrepancy; Translations: [Uterine size-date discrepancy, third trimester] 02-26-2019 Episodic Comment on above: growth us ordered Other female genital disorders (15 sources) Jovani; Translations: [Mittelschmerz] 01-21-2023 Chronic Other female genital disorders (3 sources) Other specified noninflammatory disorders of vagina; Translations: [Other specified noninflammatory disorders of vagina] Onset: 09-20-2024 Episodic Other female genital disorders (7 sources) Complex cyst of uterine adnexa; Translations: [Other noninflammatory disorders of ovary, fallopian tube and broad ligament] 05-06-2025 Episodic Other female genital disorders (10 sources) Vaginal discharge; Translations: [Other specified noninflammatory disorders of vagina] 05-22-2025 Episodic Other gastrointestinal disorders (2 sources) Irritable bowel syndrome 05-23-2024 Chronic Other gastrointestinal disorders (1 source) Abdominal bloating 05-30-2024 Episodic Other gastrointestinal disorders (11 sources) Diarrhea; Translations: [Diarrhea, unspecified] 05-30-2024 Episodic [...] [Fasciculation] 01-18-2019 Episodic Other nervous system disorders (20 sources) Postoperative pain ; Translations: [Other acute [...] ovary; Translations: [Unspecified ovarian cyst, unspecified side] Onset: 06-05-2025 Episodic Comment on above: rpt US 6-8 wk ER visit notes revie wed; medications reconciled. Residual codes; unclassified (14 sources) Past history [...] Thyroid disorder 01-11-2023 Episodic Residual codes; unclassified (10 sources) H/O: breast problem; Translations: [Personal history [...] Classification Problem Date Documented Da te Episodic/Chronic Immunizations and screening for infectious disease (20 [...] [Diarrhea, unspecified] Onset: 09-27-2014 09-27-2014 Episodic Other lower respiratory disease (1 source) Shortness of breath; Translations: [Shortness of breath] Onset: 01-10-2025 Episodic Other screening for suspected conditions (not mental disorders or infectious disease) (20 sources) Patient encounter status; Translations: [Encounter for screening, unspecified] Onset: 07-30-2024 06-17-2022 Episodic Comment on above: NIPT low [...] Test Name Value Interpretation Reference Range Facility Surgery Visit Reporton 06-07 Surgery Visit Report [facility] [address] [place] [address] OFFICE VISIT Date of Service: 06/07/25 MR#: [id number] Acct: [id number] Name: BARBARA QUINTANILLA Rep #: [id number] : 1990 Provider: Dr. Og garcia MD Age/Sex: 34/F Location: [facility] Status: Signed Intake Vital Signs 05/22/25 14:36 06/07/25 14:15 Height 4 ft 11 in 4 ft 11 in Weight: 123 lb 5 oz BMI 24.9 BP 122/85 H 108/73 Blood Pressure Location Rt brachial Position Sitting Respiration 16 Intake Visit Reasons: POSSIBLE PROCTITIS Chief Complaint: possible proctitis Block Hacker Required: No Is patient in pain?: Yes (pelvic and rectal) Allergies hydromorphone (From Dilaudid) Adverse Reaction (Verified 06/07/25 14:16) Other oxycodone (From Percocet) Adverse Reaction (Verified 06/07/25 14:16) Nausea Medications ???Medication ???Instructions ???Recorded ???Confirmed ???Type valacyclovir 500 mg tablet 500 mg PO DAILY PRN Cold Sores 06/07/25 History escitalopram oxalate 10 mg tablet 10 mg PO DAILY PRN 06/07/2506/07 History Have you fallen in the past year?: No PFSH Medical History Wears glasses Wears contact [...] additional social history: Gallo Patient works at [employer] Female Reproductive History Menstrual Ab induced: 1 HPI HPI HPI: Patient is a 34-year-old female with pelvic pain. Patient reports that she has pelvic pain radiating into her rectum that happens randomly. It has been going on for several years. She has been having problems ever since she had a hysterectomy in 2021. Her course was complicated with a pelvic abscess that required percutaneous drainage. ROS General General: Yes fatigue; No weight change, appetite, colon cancer, breast cancer or weakness HEENT HEENT: No difficulty swallowing, eye injury, eye surgery, swollen glands or hoarseness Endo Endocrine: No thyroid disease, diabetes mellitus, thyroid cancer, Hair loss, heat intolerance or cold intolerance Breast Breast: Yes left breast lump; No right breast lump, nipple discharge, breast pain, abnormal mammogram, abnormal US or breast enlargement Cardio Cardiovascular: No murmur, pacemaker, heart disease, atrial fibrillation, high blood pressure, heart attack, heart stent, palpitations, shortness of breath with exertion or chest pain Psych Psychiatric: Yes anxiety; No depression or hearing voices Resp Respiratory: No shortness of breath, No sleep apnea, No cough, No COPD, No asthma, No emphysema and No wheezing Gastro Gastrointestinal: Yes abdominal pain, Yes nausea or vomiting, Yes diarrhea, Yes constipation, No blood in stool, No acid reflux, No hemorrhoids, No ulcers, No gallbladder problem and No black,tarry stools Ganga Hematologic: No blood thinners, No blood disorders, No bleeding, No anemia and No blood clots Neuro Neurologic: No weakness Exam Const General: cooperative Orientation: alert and oriented x3 HENNC Head: normal to inspection Neck Neck: normal visual inspection and full ROM Chest Chest palpation inspection: normal inspection of the chest Resp Effort Inspection: normal respiratory effort Auscultation: clear to auscultation bilaterally Cardio Rate: regular rate Rhythm: regular rhythm GI Inspection: non-distended Palpation: soft and nontender Skin General: no rashes or lesions noted Neuro General: patient alert and patient oriented x3 Extrem General: full ROM Psych Appearance: grossly normal Mental Status: mental status grossly normal Assessment and Plan Assessment and Plan (1) Tenesmus (rectal): Status: Acute Plan: Patient is having shooting rectal pain. On her CT scan I do see a fluid collection adjacent to the distal rectum in the pelvis. This may be residual fluid from her abscess in 2021. It appears present in the CT sc (more content not included)... Normal [facility] Chiropractic Reporton 2024 Chiropractic Report [facility] Chiropractic [facility] [place] [address] OFFICE VISIT Date of Service: 06/03/25 MR#: [id number] Acct: [id number] Name: BARBARA QUINTANILLA Rep #: [id number] : 1990 Provider: JENNIFER Key Age/Sex: 34/F Location: [facility] Status: Signed Intake Vital Signs 03/14/25 15:16 05/06/25 08:59 05/22/25 14:36 Height 4 ft 11 in 4 ft 11 in 4 ft 11 in Intake Visit Reasons: BACK PAIN Chief Complaint: neck, mid, low back Is patient in pain?: Yes (right mid back) Pain scale (1-10): 3 Allergies hydromorphone (From Dilaudid) Adverse Reaction (Verified 06/03/25 15:09) Other oxycodone (From Percocet) Adverse Reaction (Verified 06/03/25 15:09) Nausea Medications ???Medication ???Instructions ???Recorded ???Confirmed ???Type escitalopram oxalate 10 mg tablet 10 mg PO DAILY 04/25/24 06/03/25 History valacyclovir 500 mg tablet 500 mg PO DAILY PRN Cold Sores 06/03/25 History fluconazole 150 mg tablet 150 mg PO Q3D 2 doses #2 tabs 05/0606/03/25 Rx PFSH Medical History Wears glasses Wears contact [...] additional social history: Gallo Patient works at [employer] HPI BACK PAIN Chief Complaint: neck and low back discomfort Visit Number: 3 Details: Barbara Quintanilla a 34 year old female presents for follow up on neck, mid, and low back pain. She reports her neck pain and stiffness has improved since her last adjustment. She complains of right mid back tightness. She rates her mid back pain 3/10 and states it feels like it needs to crack. She stretches at home to ease her stiffness and stay flexible. She denies new injury, numbness, tingling or radiculopathy. She states previous chiropractic adjustments are helpful to relieve her pain and discomfort but it gradually returns. Location: neck, low back Duration: intermittent Aggravating [...] 3-4 regions Electronic Stimulation: Yes Electrical Stimulation: Thoracic 15 mins (15) mA Therapy Performed by:: Ny Lara Traction, [...] region Plan Patient was treated without incident. Continue care. Plan Details Goals Barriers: Goals Decrease pain and spasm Improve ROM Improve lordosis Follow Up: PRN Coding Level of Care Code No Charge Diagnoses Segmental and somatic dysfunction of cervical region M99.01 Segmental and somatic dysfunction of lumbar region M99.03 Segmental and s (more content not included)... Normal [facility] Genital Culture Comprehensiv andrea 05-25-2025 VAC Reason for Exam: vaginal discharge Normal vaginal serg isolated. No yeast, Gardnerella, Neisseria or beta-hemolytic Streptococcus isolated. Normal [facility] Comment on above: Performed By: #### M 100.3200, M100.1999 #### [facility] [address] [place], [place], [address] Pelvic w/ Transvaginalon Pelvic w/ Transvaginal [facility] [address] [place], [place] [address] Pelvic w/ Transvaginal MR#: [id number] Acct: [id number] Name: BARBARA QUINTANILLA Rep #: [id number] : 1990 F 34 From: Sixto persaud MD PCP: CHARLY Gerard Status: REG CLI Study: Pelvic w/ Transvaginal Date of Exam: 05/23/25 Exam# [id number] Ordering Dr: Kathi Keenan PROCEDURE: PELVIC W/ TRANSVAGINAL REASON FOR EXAM: RIGHT OVARIAN CYST TECHNIQUE: Procedure Code: [id number] Modality: US Procedure: PELVIC W/ TRANSVAGINAL COMPARISON: Prior study dated May 06, 2025. FINDINGS: Measurements: Patient is status post hysterectomy. Right Ovary: 3.2 cm x 3.7 cm x 3.1 cm with a volume of 18.9 mL. Left Ovary: 2.5 cm x 2.6 cm x 2 cm with a volume of 6.9 mL. TRANSABDOMINAL: Uterus: Status post hysterectomy. Right ovary: Normal size and echotexture. Left ovary: Normal size and echotexture. Other: There is a 4.3 cm 2.4 cm 2.2 cm fluid-filled tubular structure in the right adnexa. Both ovaries are adjacent to each other. PID should be ruled out. Transvaginal sonography was performed to further characterize the ovarian findings. TRANSVAGINAL: Status post hysterectomy Right ovary: Normal size and echotexture. Left ovary: Normal size and echotexture. Other adnexal findings: 4.3 cm x 2.4 cm 2.2 cm tubular fluid-filled structure in the right adnexa. Cul-de-sac: No free intraperitoneal fluid identified. Tenderness: Present US/Pelvic w/ Transvaginal IMPRESSION: 4.3 cm 2.4 cm 2.2 cm fluid-filled tubular structure in the right adnexa. PID should be ruled out. Reading Location: [place] [address] CC: CHARLY Keenan; CHARLY Kramer [facility] Laboratory Professional: Signed Normal [facility] Urine Cultureon 05-23-2025 URC Culture exhibits no growth. Normal [facility] Comment on above: Performed By: #### M 8200.3000 #### [facility] [address] [place], [address] Genital cultureOrdered By: Orquidea Keenan on 05-22-2025 Source specific culture Neisseria or beta-hemolytic Streptococcus isolated. [facility] Gram Stainon 05-22-2025 GS Reason for Exam: vaginal discharge Gram Stain 4+ Gram positive rods 1+ Gram negative rods No Gram negative diplococci Score =1 Interpretation: 0-3 Normal, 4-6 Intermediate, 7-10 Positive BV Normal [facility] Comment on above: Performed By: #### M 100.3200, M100.2000 #### [facility] [address] [place], [place], [id number] Gram stainOrdered By: Kathi Keenan on 05-22-2025 Microscopic observation Gram stain Nom (Unsp spec) [facility] - Chemistry and C hemistry - challengeOrdered By: Kathi Keenan on 05-22-2025 Bilirubin Ql (U) Negative [facility] Glucose Ql (U) Negative [facility] Ketones Ql (U) Negative [facility] pH (U) 7 [pH] [facility] Specific gravity (U) [Rel density] 1.020 [facility] Urobilinogen (U) [Mass/Vol] Negative [facility] - Hematology and Cell countsOrdered By: Kathi Keenan on 05-22-2025 Hemoglobin Ql (U) Trace [facility] - Specimen inform ationOrdered By: Kathi Keenan on 05-22-2025 Clarity (U) Clear [facility] Color (U) Yellow [facility] - UrinalysisOrder ed By: Kathi Keenan on 05-22-2025 Nitrite Ql (U) Negative [facility] Protein Ql (U) Negative [facility] No Panel InformationOrdered By: Kathi Keenan on 05-22-2025 Urine Leukocytes Negatve [facility] Urine Non-Hemolyzed Blood Non-Hemolyzed [facility] Macerator Operator Office Visit Reporton 05-22-2025 Macerator Operator Office Visit Report [facility] [address], [address] [place] [address] OFFICE VISIT Date of Service: 05/22/25 MR#: [id number] Acct: [id number] Name: BARBARA QUINTANILLA Rep #: [id number] : 1990 Provider: CHARLY Duran Age/Sex: 34/F Location[place] [facility] [place] Status: Signed Intake Vital Signs 05/06/25 08:59 05/22/25 14:36 Height 4 ft 11 in 4 ft 11 in Weight: 123 lb 5 oz BMI 24.9 BP 122/85 H Intake Visit Reasons: ER F/U *ok per [place] Block Hacker Required: No Is patient in pain?: No Allergies hydromorphone (From Dilaudid) Adverse Reaction (Verified 05/22/25 14:42) Other oxycodone (From Percocet) Adverse Reaction (Verified 05/22/25 14:42) Nausea Medications ???Medication ???Instructions ???Recorded ???Confirmed ???Type escitalopram oxalate 10 mg tablet 10 mg PO DAILY 04/25/24 05/22/25 History valacyclovir 500 mg tablet 500 mg PO DAILY PRN Cold Sores 05/22/25 History fluconazole 150 mg tablet 150 mg PO Q3D 2 doses #2 tabs 05/0605/22/25 Rx Is last menstrual period known: No Post menopausal: No Patient : No : No Control Method: [facility] Medical History Wears glasses Wears contact lenses [...] additional social history: Gallo Patient works at [employer] [facility] ER F/U *ok per [place] Details: BARBARA QUINTANILLA is a 34 year old who presents for ER follow up. She went to the ER on May 06 with right lower quadrant pain; she had CT scan as well as ultrasound that showed cystic structures on the right ovary and adjacent. Has history of hysterectomy with fallopian tubes removed. She was then treated for PID as well based off ultrasound findings She reports her symptoms are not worse but also not much better. She has been on Doxycycline and Augmentin and finished both of these 10 day courses--Finished on May 16. She now is having white clumpy discharge. History 2 Elective abortions 1 Hx Para 0 Spontaneous abortions Hx # Term Pregnancies Ectopic pregnancies Hx # Pregnancies Multiple births # of living children 1 Past Pregnancies Del. Date Name GA/Weeks Outcome Route Bth Weight Infant Gen Labor Lgth Anesthesia Del Locatn Provider FOB 01/18/19 Janis 40 live - full term 8lbs 1oz Female epidural [facility] Delivery Date: 01/18/19 Last Updated by: Simin Marin decel ROS Const Constitutional: Denies body ache, chills, fatigue, fever(s), headache(s) or poor appetite Cardio Card: Denies chest pain at rest or palpitations Resp Resp: Denies dyspnea GI GI: Reports other (recent diarrhea d/t antibiotic use); Denies abdominal pain, bloating, nausea or vomiting : Reports pelvic pain (see HPI) and vaginal discharge; Denies dysuria, vaginal dryness, vaginal odor or vaginal pruritus Exam Const General: cooperative, healthy appearing, comfortable, no acute distress, well developed and well groomed GI Inspection: normal to inspection and non-distended Palpation: soft, no hepatosplenomegaly and no guarding General: bladder normal to palpation External Female Exam: normal external appearance, normal appearance of the urethra and no lesions Urethra: normal appearance of the urethra and normal palpation Speculum Exam - Vagina: normal appearance of the vagina and normal vaginal discharge Bimanual Exam- Vagina Uterus: bladder normal to palpation Bimanual Exam- Adnexa, other: normal adnexae, no masses and tender (right side) on the right Skin General: no rashes or lesions noted Neuro General: patient alert, moves all extremities and no focal motor deficits Extrem General: normal to inspection and no pedal edema Psych Appearance: grossly normal Mental Status: mental status grossly normal Affect: normal affect Speech and Movement: speech and movement normal Attitude: cooperative Res (more content not included)... Normal [facility] Urine cultureOrdered By: Eb Keenan on 05-22-2025 Bacteria identified Cx Nom (U) Culture exhibits no growth. [facility] Anion gap in Serum or Plasma Ordered By: Barbara Xiao on 05-10-2025 Anion gap [Moles/Vol] 12 mmol/L 5-15 [facility] BUN/creatinine ratioOrdered By: Barbara Xiao on 05-10-2025 Urea nitrogen/Creatinine [Mass ratio] 13.0 mg/mg 10-20 [facility] Bilirubin, totalOrdered By: Barbara Xiao on 05-10-2025 Bilirubin [Mass/Vol] 0.92 mg/dL 0.00-1.30 [facility] CBC-Complete Blood Cnt No Di ffon 05-10-2025 Erythrocyte distribution width (RBC) [Ratio] 12.6 % Normal 11.6-14.6 [facility] Comment on above: Performed By: #### M 100.2200 #### [facility] [address] [place], [address] Hematocrit (Bld) [Volume fraction] 40.4 % Normal 37-47 [facility] Comment on above: Performed By: #### M 100.2200 #### [facility] [address] [place], [address] Hemoglobin (Bld) [Mass/Vol] 13.0 g/dL Normal 12.0-15.0 [facility] Comment on above: Performed By: #### M 100.2200 #### [facility] [address] [place], [address] MCH (RBC) [Entitic mass] 26.6 pg Low 27.0-32.0 [facility] Comment on above: Performed By: #### M 100.2200 #### [facility] [address] [place], [address] MCHC (RBC) [Mass/Vol] 32.2 g/dL Normal 32-36 [facility] Comment on above: Performed By: #### M 100.2200 #### [facility] [address] [place], [address] MCV (RBC) [Entitic vol] 82.6 fL Normal 81-99 [facility] Comment on above: Performed By: #### M 100.2200 #### [facility] [address] [place], [address] Platelet mean volume (Bld) [Entitic vol] 10.6 fL Normal 6.2-12.0 [facility] Comment on above: Performed By: #### M 100.2200 #### [facility] [address] [place], [address] Platelets (Bld) [#/Vol] 259 10*3/uL Normal 150-450 [facility] Comment on above: Performed By: #### M 100.2200 #### [facility] [address] [place], [address] RBC (Bld) [#/Vol] 4.89 10*6/uL Normal 4.2-5.4 [facility] Comment on above: Performed By: #### M 100.2200 #### [facility] [address] [place], [address] RDW SD 38.0 fl Normal 35.1-43.9 [facility] Comment on above: Performed By: #### M 100.2200 #### [facility] [address] [place], [address] WBC (Bld) [#/Vol] 10.0 10*3/uL Normal 4.4-11.0 [facility] Comment on above: Performed By: #### M 100.2200 #### [facility] [address] [place], [address] Carbon dioxide, total [Moles /volume] in Central venous bloodOrdered By: Barbara Xiao on 05-10-2025 CO2 [Moles/Vol] 22.0 mmol/L 21.0-32.0 [facility] Chloride assayOrdered By: Sa miguel angel Xiao on 05-10-2025 Chloride [Moles/Vol] 104 mmol/L 98-108 [facility] Comprehensive Metabolic Prof ilon 05-10-2025 Albumin [Mass/Vol] 4.3 g/dL Normal 3.5-5.0 [facility] Comment on above: Performed By: #### M 100.2200 #### [facility] [address] [place], [address] Albumin/Globulin [Mass ratio] 1.5 {ratio} Normal 0.9-2.4 [facility] Comment on above: Performed By: #### M 100.2200 #### [facility] [address] [place], [address] ALK PHOS 46 U/L Normal 35-104 [facility] Comment on above: Performed By: #### M 100.2200 #### [facility] [address] [place], [address] ALT [Catalytic activity/Vol] 12 U/L Normal <=34 [facility] Comment on above: Performed By: #### M 100.2200 #### [facility] [address] [place], [address] AST [Catalytic activity/Vol] 16 U/L Normal <=31 [facility] Comment on above: Performed By: #### M 100.2200 #### [facility] [address] [place], [address] Bilirubin [Mass/Vol] 0.92 mg/dL Normal 0.00-1.30 [facility] Comment on above: Performed By: #### M 100.2200 #### [facility] [address] [place], [address] BUN/CRE 13.0 RATIO Normal 10-20 [facility] Comment on above: Performed By: #### M 100.2200 #### [facility] [address] [place], [address] Calcium [Mass/Vol] 9.3 mg/dL Normal 7.6-11.0 [facility] Comment on above: Performed By: #### M 100.2200 #### [facility] [address] [place], [address] Chloride [Moles/Vol] 104 mmol/L Normal 98-108 [facility] Comment on above: Performed By: #### M 100.2200 #### [facility] [address] [place], [address] CO2 [Moles/Vol] 22.0 mmol/L Normal 21.0-32.0 [facility] Comment on above: Performed By: #### M 100.2200 #### [facility] [address] [place], [address] Creatinine [Mass/Vol] 0.61 mg/dL Low 0.70-1.20 [facility] Comment on above: Performed By: #### M 100.2200 #### [facility] [address] [place], [address] GAP 12 Normal 5-15 [facility] Comment on above: Performed By: #### M 100.2200 #### [facility] [address] [place], [address] GFR/1.73 sq M.predicted among non-blacks MDRD (S/P/Bld) [Vol rate/Area] 119 mL/min/{1.73_m2} Normal >60 [facility] Comment on above: Result Comment: mL/m in/1.73m2 CKD-EPI Creatinine Equation (2020) Performed By: #### M 100.2200 #### [facility] [address] [place], [address] Globulin (S) [Mass/Vol] 2.9 g/dL Normal 2.2-4.2 [facility] Comment on above: Performed By: #### M 100.2200 #### [facility] [address] [place], [address] Glucose [Mass/Vol] 89 mg/dL Normal 70-99 [facility] Comment on above: Performed By: #### M 100.2200 #### [facility] [address] [place], [address] Potassium [Moles/Vol] 3.8 mmol/L Normal 3.3-5.1 [facility] Comment on above: Performed By: #### M 100.2200 #### [facility] [address] [place], [address] Sodium [Moles/Vol] 137 mmol/L Normal 133-145 [facility] Comment on above: Performed By: #### M 100.2200 #### [facility] [address] [place], [address] T PROT 7.2 g/dL Normal 5.9-8.4 [facility] Comment on above: Performed By: #### M 100.2200 #### [facility] [address] [place], [address] Urea nitrogen [Mass/Vol] 8 mg/dL Normal 4-19 [facility] Comment on above: Performed By: #### M 100.2200 #### [facility] [address] [place], [address] Erythrocyte distribution wid th ratioOrdered By: Barbara Xiao on 05-10-2025 Erythrocyte distribution width (RBC) [Ratio] 12.6 % 11.6-14.6 [facility] Erythrocyte distribution wid th standard deviationOrdered By: Barbara Xiao on 05-10-2025 Erythrocyte distribution width (RBC) [Ratio] 38.0 fl 35.1-43.9 [facility] Glomerular filtration rate ( GFR) estimation/1.73 sq m using serum, plasma, or whole bOrdered By: Barbara Xiao on 05-10-2025 GFR/1.73 sq M.predicted among non-blacks MDRD (S/P/Bld) [Vol rate/Area] 119 mL/min/{1.73_m2} >60 [facility] Comment on above: mL/min/1.73m2 CKD-EP I Creatinine Equation (2020) Hematocrit Auto (Bld) [Volum e fraction]Ordered By: Barbara Xiao on 05-10-2025 Hematocrit (Bld) [Volume fraction] 40.4 % 37-47 [facility] Hemoglobin measurementOrdere d By: Barbara Xiao on 05-10-2025 Hemoglobin (Bld) [Mass/Vol] 13.0 g/dL 12.0-15.0 [facility] - Chemistry and C hemistry - challengeOrdered By: Barbara Xiao on 05-10-2025 AST [Catalytic activity/Vol] 16 U/L <32 [facility] Lactic Acidon 05-10-2025 Lactate [Moles/Vol] mmol/L Normal 0.0-2.0 [facility] Comment on above: Order Comment: N Performed By: #### M 100.2200 #### [facility] [address] [place] [address], [address] Lactic acid measurementOrder ed By: Barbara Xiao on 05-10-2025 Lactate [Moles/Vol] mmol/L 0.0-2.0 [facility] MCV (mean corpuscular volume ) determinationOrdered By: Barbara Xiao on 05-10-2025 MCV (RBC) [Entitic vol] 82.6 fL 81-99 [facility] Mean corpuscular hemoglobin (MCH) determinationOrdered By: Barbara Xiao on 05-10-2025 MCH (RBC) [Entitic mass] 26.6 pg Low 27.0-32.0 [facility] Mean corpuscular hemoglobin concentration (MCHC) determinationOrdered By: Barbara Xiao on 05-10-2025 MCHC (RBC) [Mass/Vol] 32.2 g/dL 32-36 [facility] Mean platelet volume determi nationOrdered By: Barbara Xiao on 05-10-2025 Platelet mean volume (Bld) [Entitic vol] 10.6 fL 6.2-12.0 [facility] Platelet countOrdered By: Sa miguel angel Xiao on 05-10-2025 Platelets (Bld) [#/Vol] 259 10*3/uL 150-450 [facility] Potassium measurement (mass/ volume)Ordered By: Barbara Xiao on 05-10-2025 Potassium (Unsp spec) [Mass/Vol] 3.8 mmol/L 3.3-5.1 [facility] RBC Auto (Bld) [#/Vol]Ordere d By: Barbara Xiao on 05-10-2025 RBC (Bld) [#/Vol] 4.89 10*6/uL 4.2-5.4 [facility] Serum creatinine measurement (mass/volume)Ordered By: Barbara Xiao on 05-10-2025 Creatinine [Mass/Vol] 0.61 mg/dL Low 0.70-1.20 [facility] Serum globulin measurementOr dered By: Barbara Xaio on 05-10-2025 Globulin (S) [Mass/Vol] 2.9 g/dL 2.2-4.2 [facility] Serum glucose measurement (m ass/volume)Ordered By: Barbara Xiao on 05-10-2025 Glucose [Mass/Vol] 89 mg/dL 70-99 [facility] Serum or plasma alanine mckeon otransferase (ALT) measurementOrdered By: Barbara Xiao on 05-10-2025 ALT [Catalytic activity/Vol] 12 U/L <35 [facility] Serum or plasma albumin nikole urement (mass/volume)Ordered By: Barbara Xiao on 05-10-2025 Albumin [Mass/Vol] 4.3 g/dL 3.5-5.0 [facility] Serum or plasma albumin/glob ulin mass ratioOrdered By: Barbara Xiao on 05-10-2025 Albumin/Globulin [Mass ratio] 1.5 {ratio} 0.9-2.4 [facility] Serum or plasma alkaline chayo sphatase measurementOrdered By: Barbara Xiao on 05-10-2025 ALP [Catalytic activity/Vol] 46 U/L 35-104 [facility] Serum or plasma calcium nikole urement (mass/volume)Ordered By: Barbara Xiao on 05-10-2025 Calcium [Mass/Vol] 9.3 mg/dL 7.6-11.0 [facility] Serum or plasma urea nitroge n measurement (mass/volume)Ordered By: Barbara Xiao on 05-10-2025 Urea nitrogen [Mass/Vol] 8 mg/dL 4-19 [facility] Sodium levelOrdered By: Bijan sidney Xiao on 05-10-2025 Sodium [Moles/Vol] 137 mmol/L 133-145 [facility] Total proteinOrdered By: Mode busby Dameon on 05-10-2025 Protein [Mass/Vol] 7.2 g/dL 5.9-8.4 [facility] White blood cell (WBC) count Ordered By: Barbara Xiao on 05-10-2025 WBC (Bld) [#/Vol] 10.0 10*3/uL 4.4-11.0 [facility] Urine Cultureon 05-08-2025 URC Below infection leve l. Mixed Gram Positive Organisms Solomon Count <1000 MIXC Mixed contaminants. Submit a new specimen if indicated. Normal [facility] Comment on above: Performed By: #### M 100.2200 #### [facility] [address] [place], [place], [address] Abdomen/Pelvis W IV Cont ONL Yon 05-06-2025 Abdomen/Pelvis W IV Cont ONLY [facility] Imaging Services [address] [place], [place] [id number] Abdomen/Pelvis W IV Cont ONLY MR#: [id number] Acct: [id number] Name: BARBARA QUINTANILLA Rep #: [id number] : 1990 F 34 From: Raoul Miller MD PCP: Stephanie Kramer NP-C Status: REG ER Study: Abdomen/Pelvis W IV Cont ONLY Date of Exam: Exam# [id number] Ordering Dr: Garett Walker DO PROCEDURE: ABDOMEN/PELVIS [...] rectum. Proctitis should be considered. Reading Location: [id number] CC: CHARLY Kramer; Dr. Garett Walker DO Blood Bank Laboratory Professional: Signed Normal [facility] Absolute lymphocyte countOrd ered By: Garett Walker on 05-06-2025 Lymphocytes Auto (Unsp spec) [#/Vol] 2.30 10*3/uL 0.83-4.51 [facility] Absolute neutrophil countOrd ered By: Garett Walker on 05-06-2025 Neutrophils (Bld) [#/Vol] 7.3 10*3/uL 2.0-7.7 [facility] Anion gap in Serum or Plasma Ordered By: Garettcristina Walker on 05-06-2025 Anion gap [Moles/Vol] 11 mmol/L 5-15 [facility] Automated lymphocyte count a s percentage of total leukocytesOrdered By: Garettcristina Walker on 05-06-2025 Lymphocytes/100 WBC Auto (Unsp spec) 22.2 % 19-41 [facility] BUN/creatinine ratioOrdered By: [facility] Hospital[facility]iguelStephanieWalter on 05-06-2025 Urea nitrogen/Creatinine [Mass ratio] 15.5 mg/mg 10-20 [facility] Basophil percentageOrdered B y: Garett Walker on 05-06-2025 Basophils/100 WBC (Bld) 0.4 % 0-1 [facility] Bilirubin Test strip Ql (U)O rdered By: [place] Aaron on 05-06-2025 Bilirubin Ql (U) Negative Negative [facility] Bilirubin, totalOrdered By: [facility] HospitalCristobal on 05-06-2025 Bilirubin [Mass/Vol] 1.02 mg/dL 0.00-1.30 [facility] CBC W/Diff, Automatedon Absolute Lymph 2.30 X10 3/uL Normal 0.83-4.51 [facility] Comment on above: Performed By: #### M 100.2200 #### [facility] [address] [place], [address] Absolute Neut 7.3 X10 3/uL Normal 2.0-7.7 [facility] Comment on above: Performed By: #### M 100.2200 #### [facility] [address] [place], [address] Basophils/100 WBC (Bld) 0.4 % Normal 0-1 [facility] Comment on above: Performed By: #### M 100.2200 #### [facility] [address] [place], [address] Eosinophils/100 WBC (Bld) 1.1 % Normal 0-5 [facility] Comment on above: Performed By: #### M 100.2200 #### [facility] [address] [place], [address] Erythrocyte distribution width (RBC) [Ratio] 12.5 % Normal 11.6-14.6 [facility] Comment on above: Performed By: #### M 100.2200 #### [facility] [address] [place], [address] Hematocrit (Bld) [Volume fraction] 41.5 % Normal 37-47 [facility] Comment on above: Performed By: #### M 100.2200 #### [facility] [address] [place], [address] Hemoglobin (Bld) [Mass/Vol] 13.6 g/dL Normal 12.0-15.0 [facility] Comment on above: Performed By: #### M 100.2200 #### [facility] [address] [place], [address] IG% 0.200 Normal 0.0-0.9 [facility] Comment on above: Result Comment: IG% - Immature Granulocytes (promyelocytes, myelocytes and metamyelocytes) > 1% indicates that a LEFT SHIFT is Present. Performed By: #### M 100.2200 #### [facility] [address] [place], [address] Lymphocytes/100 WBC (Bld) 22.2 % Normal 19-41 [facility] Comment on above: Performed By: #### M 100.2200 #### [facility] [address] [place], [address] MCH (RBC) [Entitic mass] 27.0 pg Normal 27.0-32.0 [facility] Comment on above: Performed By: #### M 100.2200 #### [facility] [address] [place], [address] MCHC (RBC) [Mass/Vol] 32.8 g/dL Normal 32-36 [facility] Comment on above: Performed By: #### M 100.2200 #### [facility] [address] [place], [address] MCV (RBC) [Entitic vol] 82.3 fL Normal 81-99 [facility] Comment on above: Performed By: #### M 100.2200 #### [facility] [address] [place], [address] Monocytes/100 WBC (Bld) 5.9 % Normal 0-10 [facility] Comment on above: Performed By: #### M 100.2200 #### [facility] [address] [place], [address] Neutrophils/100 WBC (Bld) 70.2 % High 47-70 [facility] Comment on above: Performed By: #### M 100.2200 #### [facility] [address] [place], [address] Nucleated RBC (Bld) [#/Vol] 0 10*3/uL Normal 0-5 [facility] Comment on above: Performed By: #### M 100.2200 #### [facility] [address] [place], [address] Platelet mean volume (Bld) [Entitic vol] 9.6 fL Normal 6.2-12.0 [facility] Comment on above: Performed By: #### M 100.2200 #### [facility] [address] [place], [address] Platelets (Bld) [#/Vol] 212 10*3/uL Normal 150-450 [facility] Comment on above: Performed By: #### M 100.2200 #### [facility] [address] [place], [address] RBC (Bld) [#/Vol] 5.04 10*6/uL Normal 4.2-5.4 [facility] Comment on above: Performed By: #### M 100.2200 #### [facility] [address] [place], [address] RDW SD 37.9 fl Normal 35.1-43.9 [facility] Comment on above: Performed By: #### M 100.2200 #### [facility] [address] [place], [address] WBC (Bld) [#/Vol] 10.4 10*3/uL Normal 4.4-11.0 [facility] Comment on above: Performed By: #### M 100.2200 #### [facility] [address] [place], [address] Carbon dioxide, total [Moles /volume] in Central venous bloodOrdered By: Garett Walker on 05-06-2025 CO2 [Moles/Vol] 23.5 mmol/L 21.0-32.0 [facility] Chloride assayOrdered By: Jamaal Walker on 05-06-2025 Chloride [Moles/Vol] 104 mmol/L 98-108 [facility] Comprehensive Metabolic Prof ilon 05-06-2025 Albumin [Mass/Vol] 4.4 g/dL Normal 3.5-5.0 [facility] Comment on above: Performed By: #### M 8200.3000 #### [facility] [address] [place], [address] Albumin/Globulin [Mass ratio] 1.6 {ratio} Normal 0.9-2.4 [facility] Comment on above: Performed By: #### M 8200.3000 #### [facility] [address] [place], [address] ALK PHOS 47 U/L Normal 35-104 [facility] Comment on above: Performed By: #### M 8200.3000 #### [facility] [address] [place], [address] ALT [Catalytic activity/Vol] 9 U/L Normal <=34 [facility] Comment on above: Performed By: #### M 8200.3000 #### [facility] [address] [place], [address] AST [Catalytic activity/Vol] 16 U/L Normal <=31 [facility] Comment on above: Performed By: #### M 8200.3000 #### [facility] [address] [place], [address] Bilirubin [Mass/Vol] 1.02 mg/dL Normal 0.00-1.30 [facility] Comment on above: Performed By: #### M 8200.3000 #### [facility] [address] [place], [address] BUN/CRE 15.5 RATIO Normal 10-20 [facility] Comment on above: Performed By: #### M 8200.3000 #### [facility] [address] [place], [address] Calcium [Mass/Vol] 9.3 mg/dL Normal 7.6-11.0 [facility] Comment on above: Performed By: #### M 8200.3000 #### [facility] [address] [place], [address] Chloride [Moles/Vol] 104 mmol/L Normal 98-108 [facility] Comment on above: Performed By: #### M 8200.3000 #### [facility] [address] [place], [address] CO2 [Moles/Vol] 23.5 mmol/L Normal 21.0-32.0 [facility] Comment on above: Performed By: #### M 8200.3000 #### [facility] [address] [place], [address] Creatinine [Mass/Vol] 0.69 mg/dL Low 0.70-1.20 [facility] Comment on above: Performed By: #### M 8200.3000 #### [facility] [address] [place], [address] ECRCL 88.91 ml/min Normal 50-250 [facility] Comment on above: Performed By: #### M 8200.3000 #### [facility] [address] [place], [address] GAP 11 Normal 5-15 [facility] Comment on above: Performed By: #### M 8200.3000 #### [facility] [address] [place], [address] GFR/1.73 sq M.predicted among non-blacks MDRD (S/P/Bld) [Vol rate/Area] 116 mL/min/{1.73_m2} Normal >60 [facility] Comment on above: Result Comment: mL/m in/1.73m2 CKD-EPI Creatinine Equation (2020) Performed By: #### M 8200.3000 #### [facility] [address] [place], [address] Globulin (S) [Mass/Vol] 2.7 g/dL Normal 2.2-4.2 [facility] Comment on above: Performed By: #### M 8200.3000 #### [facility] [address] [place], [address] Glucose [Mass/Vol] 95 mg/dL Normal 70-99 [facility] Comment on above: Performed By: #### M 8200.3000 #### [facility] [address] [place], [address] Potassium [Moles/Vol] 3.9 mmol/L Normal 3.3-5.1 [facility] Comment on above: Performed By: #### M 8200.3000 #### [facility] [address] [place], [address] Sodium [Moles/Vol] 139 mmol/L Normal 133-145 [facility] Comment on above: Performed By: #### M 8200.3000 #### [facility] [address] [place], [address] T PROT 7.1 g/dL Normal 5.9-8.4 [facility] Comment on above: Performed By: #### M 8200.3000 #### [facility] [address] [place], [address] Urea nitrogen [Mass/Vol] 11 mg/dL Normal 4-19 [facility] Comment on above: Performed By: #### M 8200.3000 #### [facility] [address] [place], [address] Emergency Department Summary on 05-06-2025 Emergency Department Summary [facility] Medical Records Department [address] [place] [address] Emergency Department Summary 05/06/25 MR#: [id number] Acct: [id number] Name: BARBARA QUINTANILLA Rep #: [id number] : 1990 34 From: Garett Walker DO PCP: CHARLY Gerard Status:REG ER Location: ED ADDENDUM by Dr. Garett Walker DO on 05/06/25 at 1553 Will send copy to PRISONER CLASSIFICATION INTERVIEWER 05/06/25 1553 Cosigner Signature (if applicable): cc: CANARY RAISER-C Stephanie Kramer; Dr. Nisha Edouard DO * Signed HPI History of Present Illness [...] intact Psych: Cooperative, appropriate mood and affect [facility] Medical History Wears glasses Wears contact [...] additional social history: [place] Patient works at [employer] EXAM Physical Exam Const Vital Signs: 05/06/25 [...] these findi (more content not included)... Normal [facility] Eosinophil percentageOrdered By: Garett Walker on 05-06-2025 Eosinophils/100 WBC (Bld) 1.1 % 0-5 [facility] Erythrocyte distribution wid th ratioOrdered By: Garett Walker on 05-06-2025 Erythrocyte distribution width (RBC) [Ratio] 12.5 % 11.6-14.6 [facility] Erythrocyte distribution wid th standard deviationOrdered By: Garett Watson on 05-06-2025 Erythrocyte distribution width (RBC) [Ratio] 37.9 fl 35.1-43.9 [facility] Glomerular filtration rate ( GFR) estimation/1.73 sq m using serum, plasma, or whole bOrdered By: Garett Walker on 05-06-2025 GFR/1.73 sq M.predicted among non-blacks MDRD (S/P/Bld) [Vol rate/Area] 116 mL/min/{1.73_m2} >60 [facility] Comment on above: mL/min/1.73m2 CKD-EP I Creatinine Equation (2020) Hematocrit Auto (Bld) [Volum e fraction]Ordered By: Garett Walker on 05-06-2025 Hematocrit (Bld) [Volume fraction] 41.5 % 37-47 [facility] Hemoglobin measurementOrdere d By: Garett Walker on 05-06-2025 Hemoglobin (Bld) [Mass/Vol] 13.6 g/dL 12.0-15.0 [facility] Immature granulocytes/100 WB C Auto (Bld)Ordered By: Garett Walker on 05-06-2025 Immature granulocytes/100 WBC (Bld) 0.200 % 0.0-0.9 [facility] Comment on above: IG% - Immature Granu locytes (promyelocytes, myelocytes and metamyelocytes) > 1% indicates that a LEFT SHIFT is Present. Ketones Test strip Ql (U)Ord ered By: Garett Walker on 05-06-2025 Ketones Ql (U) Negative Negative [facility] - Chemistry and C hemistry - challengeOrdered By: Garett Walker on 05-06-2025 AST [Catalytic activity/Vol] 16 U/L <32 [facility] Lipaseon 05-06-2025 Lipase [Catalytic activity/Vol] 25 U/L Normal 13-75 [facility] Comment on above: Result Comment: Chucky hook note: LIPASE revised reference range effective 22. New Lipase methodology. Expected to produce lower values than the previous assay method. NEW Reference Range: 13 - 75 U/L Performed By: #### M 8200.3000 #### [facility] [address] [place], [address] Lipase measurementOrdered By : Garett Walker on 05-06-2025 Lipase [Catalytic activity/Vol] 25 U/L 13-75 [facility] Comment on above: Please note:LIPASE r evised reference range effective 22. New Lipase methodology. Expected to produce lower values than the previous assay method. NEW Reference Range: 13 - 75 U/L M8200.2203on 05-06-2025 M8200.2203 Pending Chlamydia Trachomatis PCR NEGATIVE for Chlamydia trachomatis N. gonorrhoeae PCR Negative for N. gonorrhoeae Normal [facility] Comment on above: Performed By: #### M 8200.2203 #### [facility] [address] [place], [address] M8200.3000on 05-06-2025 M8200.3000 Pending Trichomonas Vag DNA PCR Negative for Trichomonas vaginalis Normal [facility] Comment on above: Performed By: #### M 8200.3000 #### [facility] [address] [place], [address] MCV (mean corpuscular volume ) determinationOrdered By: Garett Walker on 05-06-2025 MCV (RBC) [Entitic vol] 82.3 fL 81-99 [facility] Mean corpuscular hemoglobin (MCH) determinationOrdered By: Garett Walker on 05-06-2025 MCH (RBC) [Entitic mass] 27.0 pg 27.0-32.0 [facility] Mean corpuscular hemoglobin concentration (MCHC) determinationOrdered By: Garett Walker on 05-06-2025 MCHC (RBC) [Mass/Vol] 32.8 g/dL 32-36 [facility] Mean platelet volume determi nationOrdered By: Garett Walker on 05-06-2025 Platelet mean volume (Bld) [Entitic vol] 9.6 fL 6.2-12.0 [facility] Microscopic analysis of urin e for red blood cells (RBC)Ordered By: Garett Walker on 05-06-2025 Microscopic analysis of urine for red blood cells (RBC) 0-5 SEEN /hpf 0-5 [facility] Monocyte percentageOrdered B y: Garett Walker on 05-06-2025 Monocytes/100 WBC (Bld) 5.9 % 0-10 [facility] Mucus LM Ql (Urine sed)Order ed By: Garett Walker on 05-06-2025 Mucus Ql (Urine sed) 0 SEEN /hpf [facility] Neutrophil percentageOrdered By: Garett Walker on 05-06-2025 Neutrophils/100 WBC (Bld) 70.2 % High 47-70 [facility] Nitrite Test strip Ql (U)Ord ered By: Garett Walker on 05-06-2025 Nitrite Ql (U) Negative Negative [facility] Nucleated red blood cell per centageOrdered By: Garett Walker on 05-06-2025 Nucleated RBC/100 WBC (Bld) [Ratio] 0 % 0-5 [facility] Platelet countOrdered By: Jamaal Walker on 05-06-2025 Platelets (Bld) [#/Vol] 212 10*3/uL 150-450 [facility] Potassium measurement (mass/ volume)Ordered By: Garett Walker on 05-06-2025 Potassium (Unsp spec) [Mass/Vol] 3.9 mmol/L 3.3-5.1 [facility] ,Urineon 05-06-2025 Beta HCG ( test) Ql (U) Negative Normal [facility] Comment on above: Result Comment: Very dilute urine specimens, as indicated by a low specific gravity, may not contain membership sales representative levels of hCG. If is still suspected, a first morning urine specimen should be collected 48 hours later and tested. Performed By: #### L 400.8517 #### [facility] [address] [place], [address] Protein Test strip Ql (U)Ord ered By: Garett Walker on 05-06-2025 Protein Ql (U) 15 mg/dl High Negative [facility] RBC Auto (Bld) [#/Vol]Ordere d By: Garett Walker on 05-06-2025 RBC (Bld) [#/Vol] 5.04 10*6/uL 4.2-5.4 [facility] Serum creatinine measurement (mass/volume)Ordered By: Garett Walker on 05-06-2025 Creatinine [Mass/Vol] 0.69 mg/dL Low 0.70-1.20 [facility] Serum globulin measurementOr dered By: Garett Walker on 05-06-2025 Globulin (S) [Mass/Vol] 2.7 g/dL 2.2-4.2 [facility] Serum glucose measurement (m ass/volume)Ordered By: Garett Walker on 05-06-2025 Glucose [Mass/Vol] 95 mg/dL 70-99 [facility] Serum or plasma alanine mckeon otransferase (ALT) measurementOrdered By: Garett Walker on 05-06-2025 ALT [Catalytic activity/Vol] 9 U/L <35 [facility] Serum or plasma albumin nikole urement (mass/volume)Ordered By: Garett Watson on 05-06-2025 Albumin [Mass/Vol] 4.4 g/dL 3.5-5.0 [facility] Serum or plasma albumin/glob ulin mass ratioOrdered By: Garett Walker on 05-06-2025 Albumin/Globulin [Mass ratio] 1.6 {ratio} 0.9-2.4 [facility] Serum or plasma alkaline chayo sphatase measurementOrdered By: Garett Walker on 05-06-2025 ALP [Catalytic activity/Vol] 47 U/L 35-104 [facility] Serum or plasma calcium nikole urement (mass/volume)Ordered By: Garett Watson on 05-06-2025 Calcium [Mass/Vol] 9.3 mg/dL 7.6-11.0 [facility] Serum or plasma urea nitroge n measurement (mass/volume)Ordered By: Garett Walker on 05-06-2025 Urea nitrogen [Mass/Vol] 11 mg/dL 4-19 [facility] Sodium levelOrdered By: Frankie Walker on 05-06-2025 Sodium [Moles/Vol] 139 mmol/L 133-145 [facility] Squamous epithelial cells de tection in urine sediment by light microscopyOrdered By: Garett Walker on 05-06-2025 Epithelial cells.squamous LM Ql (Urine sed) 5-10 SEEN /hpf 5-10 [facility] Total proteinOrdered By: Brandon Walker on 05-06-2025 Protein [Mass/Vol] 7.1 g/dL 5.9-8.4 [facility] Transvaginal Non-on 05-06-2025 Transvaginal Non- [facility] Imaging Services [address] [place] [address] Transvaginal Non- MR#: [id number] Acct: [id number] Name: BARBARA QUINTANILLA Rep #: [id number] : 1990 F 34 From: Raoul Miller MD PCP: Stephanie Kramer NP-Orquidea Status: REG ER Study: Transvaginal Non- Date of Exam: Exam# [id number] Ordering Dr: Garett Walker DO PROCEDURE: TRANSVAGINAL [...] Hysterectomy 4. Moderate free fluid. Reading Location: [id number] CC: CHARLY Kramer; Dr. Garett Walker DO Blood Bank Laboratory Professional: Signed Normal [facility] Urinalysis, Completeon 05-06 BACTERIA 2+ /hpf Normal None Seen [facility] Comment on above: Order Comment: CLEAN CATCH Performed By: #### M 100.2200 #### [facility] [address] [place], [place], [id number] (534) EPI,SQUAMOUS 5-10 SEEN Normal 5-10 [facility] Comment on above: Order Comment: CLEAN CATCH Performed By: #### M 100.2200 #### [facility] [address] [place], [address] RBC 0-5 SEEN Normal 0-5 [facility] Comment on above: Order Comment: CLEAN CATCH Performed By: #### M 100.2200 #### [facility] [address] [place], [address] WBC 0-5 SEEN Normal 0-5 [facility] Comment on above: Order Comment: CLEAN CATCH Performed By: #### M 100.2200 #### [facility] [address] [place], [address] Mucus Ql (Urine sed) 0 SEEN Normal [facility] Comment on above: Order Comment: CLEAN CATCH Performed By: #### M 100.2200 #### [facility] [address] [place], [address] Urine clarityOrdered By: Brandon Walker on 05-06-2025 Clarity (U) Sl. Cloudy Clear [facility] Urine color determinationOrd ered By: Garett Walker on 05-06-2025 Color (U) Yellow Yellow [facility] Urine cultureOrdered By: Brandon Walker on 05-06-2025 Bacteria identified Cx Nom (U) Positive Abnormal [facility] Urine glucose detectionOrder ed By: Garett Walker on 05-06-2025 Glucose Ql (U) Normal mg/dl Normal [facility] Urine leukocyte esterase det ection by dipstickOrdered By: Garett Walker on 05-06-2025 Leukocyte esterase Test strip Ql (U) Negative Negative [facility] Urine pHOrdered By: Garett Jain on 05-06-2025 pH (U) 6.0 [pH] 5.0 - 8.0 [facility] Urine testOrdered By: Garett Walker on 05-06-2025 HCG ( test) Ql (U) Negative [facility] Comment on above: Very dilute urine sp ecimens, as indicated by a low specificgravity, may not contain membership sales representative levels of hCG. If is still suspected, a first morning urinespecimen should be collected 48 hours later and tested. Urine sediment bacteria coun t by microscopy (number/high power field)Ordered By: Garett Walker on 05-06-2025 Bacteria LM.HPF (Urine sed) [#/Area] 2 /[HPF] None Seen [facility] Urine specific gravity measu rementOrdered By: Garett Walker on 05-06-2025 Specific gravity (U) [Rel density] 1.015 1.002-1.030 [facility] Urine urobilinogen measureme ntOrdered By: Garett Walker on 05-06-2025 Urobilinogen Ql (U) Normal mg/dl Normal [facility] White blood cell (WBC) count Ordered By: Garett Walker on 05-06-2025 WBC (Bld) [#/Vol] 10.4 10*3/uL 4.4-11.0 [facility] White blood cell countOrdere d By: Garett Walker on 05-06-2025 White blood cell count 0-5 SEEN /hpf 0-5 [facility] Absolute lymphocyte countOrd ered By: HEALTH ASSESSMENT on 04-26-2025 Lymphocytes Auto (Unsp spec) [#/Vol] 2.79 10*3/uL 0.83-4.51 [facility] Absolute neutrophil countOrd ered By: HEALTH ASSESSMENT on 04-26-2025 Neutrophils (Bld) [#/Vol] 5.3 10*3/uL 2.0-7.7 [facility] Absolute nucleated red blood cell countOrdered By: HEALTH ASSESSMENT on 04-26-2025 Nucleated RBC (Bld) [#/Vol] 0.00 10*3/uL 0-5 [facility] Anion gap in Serum or Plasma Ordered By: HEALTH ASSESSMENT on 04-26-2025 Anion gap [Moles/Vol] 13 mmol/L 5-15 [facility] [facility] BUN/creatinine ratioOrdered By: HEALTH ASSESSMENT on 04-26-2025 Urea nitrogen/Creatinine [Mass ratio] 11.5 mg/mg 10-20 [facility] Bilirubin Test strip Ql (U)O rdered By: HEALTH ASSESSMENT on 04-26-2025 Bilirubin Ql (U) Negative Negative [facility] Bilirubin directOrdered By: HEALTH ASSESSMENT on 04-26-2025 Bilirubin.direct [Mass/Vol] 0.52 mg/dL High 0.00-0.30 [facility] Bilirubin, totalOrdered By: HEALTH ASSESSMENT on 04-26-2025 Bilirubin [Mass/Vol] 1.41 mg/dL High 0.00-1.30 [facility] CBC, Employeeon 04-26-2025 Absolute Lymph 2.79 X10 3/uL Normal 0.83-4.51 [facility] Comment on above: Performed By: #### M 100.2200 #### [facility] [address] [place], [address] Absolute Neut 5.3 X10 3/uL Normal 2.0-7.7 [facility] Comment on above: Performed By: #### M 100.2200 #### [facility] [address] [place], [address] Basophils/100 WBC (Bld) 0.5 % Normal 0-1 [facility] Comment on above: Performed By: #### M 100.2200 #### [facility] [address] [place], [address] Eosinophils/100 WBC (Bld) 1.6 % Normal 0-5 [facility] Comment on above: Performed By: #### M 100.2200 #### [facility] [address] [place], [address] Erythrocyte distribution width (RBC) [Ratio] 12.2 % Normal 11.6-14.6 [facility] Comment on above: Performed By: #### M 100.2200 #### [facility] [address] [place], [address] Hematocrit (Bld) [Volume fraction] 42.6 % Normal 37-47 [facility] Comment on above: Performed By: #### M 100.2200 #### [facility] [address] [place], [address] Hemoglobin (Bld) [Mass/Vol] 13.7 g/dL Normal 12.0-15.0 [facility] Comment on above: Performed By: #### M 100.2200 #### [facility] [address] [place], [address] Lymphocytes/100 WBC (Bld) 31.4 % Normal 19-41 [facility] Comment on above: Performed By: #### M 100.2200 #### [facility] [address] [place], [address] MCH (RBC) [Entitic mass] 26.6 pg Low 27.0-32.0 [facility] Comment on above: Performed By: #### M 100.2200 #### [facility] [address] [place], [address] MCHC (RBC) [Mass/Vol] 32.2 g/dL Normal 32-36 [facility] Comment on above: Performed By: #### M 100.2200 #### [facility] [address] [place], [address] MCV (RBC) [Entitic vol] 82.7 fL Normal 81-99 [facility] Comment on above: Performed By: #### M 100.2200 #### [facility] [address] [place], [address] Monocytes/100 WBC (Bld) 6.4 % Normal 0-10 [facility] Comment on above: Performed By: #### M 100.2200 #### [facility] [address] [place], [address] Neutrophils/100 WBC (Bld) 59.9 % Normal 47-70 [facility] Comment on above: Performed By: #### M 100.2200 #### [facility] [address] [place], [address] NRBC # 0.00 10 3/uL Normal 0-5 [facility] Comment on above: Performed By: #### M 100.2200 #### [facility] [address] [place], [address] Nucleated RBC (Bld) [#/Vol] 0 10*3/uL Normal 0-5 [facility] Comment on above: Performed By: #### M 100.2200 #### [facility] [address] [place], [address] Platelet mean volume (Bld) [Entitic vol] 10.8 fL Normal 6.2-12.0 [facility] Comment on above: Performed By: #### M 100.2200 #### [facility] [address] [place], [address] Platelets (Bld) [#/Vol] 204 10*3/uL Normal 150-450 [facility] Comment on above: Performed By: #### M 100.2200 #### [facility] [address] [place], [address] RBC (Bld) [#/Vol] 5.15 10*6/uL Normal 4.2-5.4 [facility] Comment on above: Performed By: #### M 100.2200 #### [facility] [address] [place], [address] RDW SD 37.3 fl Normal 35.1-43.9 [facility] Comment on above: Performed By: #### M 100.2200 #### [facility] [address] [place], [address] WBC (Bld) [#/Vol] 8.9 10*3/uL Normal 4.4-11.0 [facility] Comment on above: Performed By: #### M 100.2200 #### [facility] [address] [place], [address] Calculated very low density lipoprotein (VLDL) cholesterol measurementOrdered By: HEALTH ASSESSMENT on 04-26-2025 Calculated very low density lipoprotein (VLDL) cholesterol measurement 11 mg/dL 5-40 [facility] Carbon dioxide, total [Moles /volume] in Central venous bloodOrdered By: HEALTH ASSESSMENT on 04-26-2025 CO2 [Moles/Vol] 25.4 mmol/L 21.0-32.0 [facility] Chloride assayOrdered By: HE ALTH ASSESSMENT on 04-26-2025 Chloride [Moles/Vol] 103 mmol/L 98-108 [facility] Employee Profileon 5 LDH 167 U/L Normal 84-246 [facility] Comment on above: Performed By: #### M 100.2200 #### [facility] [address] [place], [address] Phosphate [Mass/Vol] 3.5 mg/dL Normal 2.7-4.5 [facility] Comment on above: Performed By: #### M 100.2200 #### [facility] [address] [place], [address] URIC 4.6 mg/dL Normal 2.6-6.0 [facility] Comment on above: Result Comment: The drugs N-Acetylcysteine and Metamizole may falsely depress this assay. Performed By: #### M 100.2200 #### [facility] [address] [place], [address] Erythrocyte distribution wid th ratioOrdered By: HEALTH ASSESSMENT on 04-26-2025 Erythrocyte distribution width (RBC) [Ratio] 12.2 % 11.6-14.6 [facility] Erythrocyte distribution wid th standard deviationOrdered By: HEALTH ASSESSMENT on 04-26-2025 Erythrocyte distribution width (RBC) [Ratio] 37.3 fl 35.1-43.9 [facility] Glomerular filtration rate ( GFR) estimation/1.73 sq m using serum, plasma, or whole bOrdered By: HEALTH ASSESSMENT on 04-26-2025 GFR/1.73 sq M.predicted among non-blacks MDRD (S/P/Bld) [Vol rate/Area] 105 mL/min/{1.73_m2} >60 [facility] Comment on above: mL/min/1.73m2 CKD-EP I Creatinine Equation (2020) Hematocrit Auto (Bld) [Volum e fraction]Ordered By: HEALTH ASSESSMENT on 04-26-2025 Hematocrit (Bld) [Volume fraction] 42.6 % 37-47 [facility] Hemoglobin measurementOrdere d By: HEALTH ASSESSMENT on 04-26-2025 Hemoglobin (Bld) [Mass/Vol] 13.7 g/dL 12.0-15.0 [facility] Ketones Test strip Ql (U)Ord ered By: HEALTH ASSESSMENT on 04-26-2025 Ketones Ql (U) 5 mg/dl High Negative [facility] LDL calc ser/plasOrdered By: HEALTH ASSESSMENT on 04-26-2025 Cholesterol in LDL [Mass/Vol] 79 mg/dL [facility] Comment on above: Nskswhzdku=710-676 m g/dL & Higher Nole=473 mg/dL or greaterFriedwald Equation for LDL-C Laboratory - Chemistry and C hemistry - challengeOrdered By: HEALTH ASSESSMENT on 04-26-2025 AST [Catalytic activity/Vol] 15 U/L <32 [facility] Lactate dehydrogenase (LDH) measurementOrdered By: HEALTH ASSESSMENT on 04-26-2025 LDH [Catalytic activity/Vol] 167 U/L 84-246 [facility] MCV (mean corpuscular volume ) determinationOrdered By: HEALTH ASSESSMENT on 04-26-2025 MCV (RBC) [Entitic vol] 82.7 fL 81-99 [facility] Mean corpuscular hemoglobin (MCH) determinationOrdered By: HEALTH ASSESSMENT on 04-26-2025 MCH (RBC) [Entitic mass] 26.6 pg Low 27.0-32.0 [facility] Mean corpuscular hemoglobin concentration (MCHC) determinationOrdered By: HEALTH ASSESSMENT on 04-26-2025 MCHC (RBC) [Mass/Vol] 32.2 g/dL 32-36 [facility] Mean platelet volume determi nationOrdered By: HEALTH ASSESSMENT on 04-26-2025 Platelet mean volume (Bld) [Entitic vol] 10.8 fL 6.2-12.0 [facility] Neutrophil percentageOrdered By: HEALTH ASSESSMENT on 04-26-2025 Neutrophils/100 WBC (Bld) 59.9 % 47-70 [facility] Nitrite Test strip Ql (U)Ord ered By: HEALTH ASSESSMENT on 04-26-2025 Nitrite Ql (U) Negative Negative [facility] Nucleated red blood cell per centageOrdered By: HEALTH ASSESSMENT on 04-26-2025 Nucleated RBC/100 WBC (Bld) [Ratio] 0 % 0-5 [facility] Platelet countOrdered By: HE ALTH ASSESSMENT on 04-26-2025 Platelets (Bld) [#/Vol] 204 10*3/uL 150-450 [facility] Potassium measurement (mass/ volume)Ordered By: HEALTH ASSESSMENT on 04-26-2025 Potassium (Unsp spec) [Mass/Vol] 3.7 mmol/L 3.3-5.1 [facility] Protein Test strip Ql (U)Ord ered By: HEALTH ASSESSMENT on 04-26-2025 Protein Ql (U) 30 mg/dl High Negative [facility] RBC Auto (Bld) [#/Vol]Ordere d By: HEALTH ASSESSMENT on 04-26-2025 RBC (Bld) [#/Vol] 5.15 10*6/uL 4.2-5.4 [facility] Screening total cholesterol/ high density lipoprotein (HDL) cholesterol ratioOrdered By: HEALTH ASSESSMENT on 04-26-2025 Cholesterol.total/Haley sterol in HDL [Mass ratio] 2.34 {ratio} [facility] Serum creatinine measurement (mass/volume)Ordered By: HEALTH ASSESSMENT on 04-26-2025 Creatinine [Mass/Vol] 0.76 mg/dL 0.70-1.20 [facility] Serum globulin measurementOr dered By: HEALTH ASSESSMENT on 04-26-2025 Globulin (S) [Mass/Vol] 2.8 g/dL 2.2-4.2 [facility] Serum glucose measurement (m ass/volume)Ordered By: HEALTH ASSESSMENT on 04-26-2025 Glucose [Mass/Vol] 83 mg/dL 70-99 [facility] Serum or plasma alanine mckeon otransferase (ALT) measurementOrdered By: HEALTH ASSESSMENT on 04-26-2025 ALT [Catalytic activity/Vol] 12 U/L <35 [facility] Serum or plasma albumin nikole urement (mass/volume)Ordered By: HEALTH ASSESSMENT on 04-26-2025 Albumin [Mass/Vol] 4.6 g/dL 3.5-5.0 [facility] Serum or plasma albumin/glob ulin mass ratioOrdered By: HEALTH ASSESSMENT on 04-26-2025 Albumin/Globulin [Mass ratio] 1.6 {ratio} 0.9-2.4 [facility] Serum or plasma alkaline chayo sphatase measurementOrdered By: HEALTH ASSESSMENT on 04-26-2025 ALP [Catalytic activity/Vol] 48 U/L 35-104 [facility] Serum or plasma calcium nikole urement (mass/volume)Ordered By: HEALTH ASSESSMENT on 04-26-2025 Calcium [Mass/Vol] 9.7 mg/dL 7.6-11.0 [facility] Serum or plasma cholesterol in HDL measurement (mass/volume)Ordered By: HEALTH ASSESSMENT on 04-26-2025 Cholesterol in HDL [Mass/Vol] 68 mg/dL >40 [facility] Comment on above: National Cholesterol Education Program (NCEP) guidelines:<40 mg/dL: Low HDL-cholesterol (major risk factor for CHD)>= 60 mg/dL: High HDL-cholesterol (negative risk factor for CHD)HDL-cholesterol is affected by a number of factors, e.g. smoking, exercise, hormones, sex and age. Serum or plasma cholesterol measurement (mass/volume)Ordered By: HEALTH ASSESSMENT on 04-26-2025 Cholesterol [Mass/Vol] 158 mg/dL <201 [facility] Comment on above: Cholesterol level, D esirable <200 mg/dLBorderline high cholesterol 200-239 mg/dLHigh cholesterol >=240 mg/dLRecommendations of the NCEP Adult Treatment Panel for the following risk-cutoff thresholds for the [place] population. Serum or plasma urea nitroge n measurement (mass/volume)Ordered By: HEALTH ASSESSMENT on 04-26-2025 Urea nitrogen [Mass/Vol] 9 mg/dL 4-19 [facility] Serum or plasma uric acid me asurement (mass/volume)Ordered By: HEALTH ASSESSMENT on 04-26-2025 Urate [Mass/Vol] 4.6 mg/dL 2.6-6.0 [facility] Comment on above: The drugs N-Acetylcy steine and Metamizole may falsely depress this assay. Sodium levelOrdered By: [facility] ASSESSMENT on 04-26-2025 Sodium [Moles/Vol] 141 mmol/L 133-145 [facility] Total proteinOrdered By: [facility] ASSESSMENT on 04-26-2025 Protein [Mass/Vol] 7.3 g/dL 5.9-8.4 [facility] Triglycerides measurementOrd ered By: HEALTH ASSESSMENT on 04-26-2025 Triglyceride [Mass/Vol] 57 mg/dL <199 [facility] Comment on above: The drugs N-Acetylcy steine and Metamizole may falsely depress this assay. Normal range: <150 mg/dLBorderline High: 150-199 mg/dLHigh: 200-499 mg/dLVery High: >500 mg/dL Urinalysis, Employeeon 04-26 BILIRUBIN URINE Negative Normal Negative [facility] Comment on above: Order Comment: Urine , Random Performed By: #### M 100.2200 #### [facility] [address] [place], [address] Clarity (U) Sl. Cloudy Normal Clear [facility] Comment on above: Order Comment: Urine , Random Performed By: #### M 100.2200 #### [facility] [address] [place], [address] Color (U) Yellow Normal Yellow [facility] Comment on above: Order Comment: Urine , Random Performed By: #### M 100.2200 #### [facility] [address] [place], [address] GLUCOSE, UR Normal Normal Normal [facility] Comment on above: Order Comment: Urine , Random Performed By: #### M 100.2200 #### [facility] [address] [place], [address] KETONE UR 5 mg/dl Abnormal Negative [facility] Comment on above: Order Comment: Urine , Random Performed By: #### M 100.2200 #### [facility] [address] [place], [address] LEUK ESTERASE Negative Normal Negative [facility] Comment on above: Order Comment: Urine , Random Performed By: #### M 100.2200 #### [facility] [address] [place], [address] Nitrite Ql (U) Negative Normal Negative [facility] Comment on above: Order Comment: Urine , Random Performed By: #### M 100.2200 #### [facility] [address] [place], [address] OCCULT BLOOD-UR 50 /ul Abnormal Negative [facility] Comment on above: Order Comment: Urine , Random Performed By: #### M 100.2200 #### [facility] [address] [place], [address] pH UR 6.0 Normal 5.0 - 8.0 [facility] Comment on above: Order Comment: Urine , Random Performed By: #### M 100.2200 #### [facility] [address] [place], [address] PROT DIPSTX 30 mg/dl Abnormal Negative [facility] Comment on above: Order Comment: Urine , Random Performed By: #### M 100.2200 #### [facility] [address] [place], [address] SP.GR. DIPSTX 1.025 Normal 1.002-1.030 [facility] Comment on above: Order Comment: Urine , Random Performed By: #### M 100.2200 #### [facility] [address] [place], [address] UROBILI Normal Normal Normal [facility] Comment on above: Order Comment: Urine , Random Performed By: #### M 100.2200 #### [facility] [address] [place], [address] Urine clarityOrdered By: A [facility] ASSESSMENT on 04-26-2025 Clarity (U) Sl. Cloudy Clear [facility] Urine color determinationOrd ered By: HEALTH ASSESSMENT on 04-26-2025 Color (U) Yellow Yellow [facility] Urine glucose detectionOrder ed By: HEALTH ASSESSMENT on 04-26-2025 Glucose Ql (U) Normal mg/dl Normal [facility] Urine leukocyte esterase det ection by dipstickOrdered By: HEALTH ASSESSMENT on 04-26-2025 Leukocyte esterase Test strip Ql (U) Negative Negative [facility] Urine pHOrdered By: HEALTH A SSESSMENT on 04-26-2025 pH (U) 6.0 [pH] 5.0 - 8.0 [facility] Urine specific gravity measu rementOrdered By: HEALTH ASSESSMENT on 04-26-2025 Specific gravity (U) [Rel density] 1.025 1.002-1.030 [facility] Urine urobilinogen measureme ntOrdered By: HEALTH ASSESSMENT on 04-26-2025 Urobilinogen Ql (U) Normal mg/dl Normal [facility] White blood cell (WBC) count Ordered By: HEALTH ASSESSMENT on 04-26-2025 WBC (Bld) [#/Vol] 8.9 10*3/uL 4.4-11.0 [facility] Chiropractic Reporton 2024 Chiropractic Report [facility] [address] [place] [address] OFFICE VISIT Date of Service: 04/04/25 MR#: [id number] Acct: [id number] Name: BARBARA QUINTANILLA Rep #: [id number] : 1990 Provider: JENNIFER Key Age/Sex: 34/F Location: [facility] Status: Signed Intake Vital Signs 03/14/25 15:16 [...] additional social history: Gallo Patient works at [employer] HPI BACK PAIN Chief Complaint: neck and [...] Goals Bar (more content not included)... Normal [facility] Chiropractic Reporton 2024 Chiropractic Report [facility] [address] [place] [address] OFFICE VISIT Date of Service: 03/14/25 MR#: [id number] Acct: [id number] Name: BARBARA QUINTANILLA Rep #: [id number] : 1990 Provider: JENNIFER Key Age/Sex: 34/F Location: [facility] Status: Signed Intake Vital Signs 02/19/25 13:10 [...] additional social history: Gallo Patient works at [employer] HPI REEVAL Chief Complaint: Neck/Back pain Visit Number: [...] LUMBAR Ke (more content not included)... Normal [facility] Office Visit Reporton 2024 Office Visit Report [facility] [address] [place] [address] OFFICE VISIT Date of Service: 01/03/25 MR#: [id number] Acct: [id number] Patient: BARBARA QUINTANILLA Rep #: [id number] : 1990 Provider: CLEVE Swartz Age/Sex: 34/F Location: [facility] Status: Signed Intake Vital Signs 12/30/24 11:15 Height 4 ft 11 in Intake Visit Reasons: EMPLOYEE COVID/ [facility] Chief Complaint: chest congest, mucus, WRIGHT, [...] Cosigner Signature: Date (if applicable) CC: Normal [facility] Chest PA and Lateralon 01-07 Chest PA and Lateral [facility] [address] [place] [address] Chest PA and Lateral MR#: [id number] Acct: [id number] Name: BARBARA QUINTANILLA Rep #: [id number] : 1990 F 34 From: Rayo Feliciano PCP: CHARLY Gerard Status: REG CLI Study: Chest PA and Lateral Date of Exam: 01/07/25 Exam# [id number] Ordering Dr: Stephanie Kramer NP CANARY RAISER-[facility]quidea PROCEDURE: CHEST PA AND LATERAL 01/07/2025 REASON [...] evidence of acute cardiopulmonary disease. Reading Location: [place] [address] CC: CANARY RAISER-C Stephanie Kramer Blood [facility] Laboratory Professional: Signed Normal [facility] - Microbiology an d Antimicrobial susceptibilityOrdered By: Luis Armando Scherer on 01-03-2025 SARS-CoV-2 (COVID-19) RNA VON+probe Ql (Unsp spec) Not detected [facility] No Panel InformationOrdered By: Luis Armando Scherer on 01-03-2025 POC Nasal Swab Influenza A,B Not detected [facility] POC Nasal Swab RSV Not detected [facility] Office Visit Reporton [address] [facility] [address] [place] [address] OFFICE VISIT Date of Service: 01/03/25 MR#: [id number] Acct: [id number] Patient: BARBARA QUINTANILLA Rep #: [id number] : 1990 Provider: CLEVE Swartz Age/Sex: 34/F Location: [facility] Status: Signed Employer Purchased Covid Test Note: [...] Improve lordosis 01/03/25 1156 Date Luis Armando POON Cosigner Signature: Date (if applicable) CC: Normal [facility] Urgent Care Visit Reporton 0 01-03-2025 Urgent Care Visit Report [facility] [address], [address] [place] [address] OFFICE VISIT Date of Service: 01/03/25 MR#: [id number] Acct: [id number] Name: BARBARA QUINTANILLA Rep #: [id number] : 1990 Provider: CLEVE Swartz Age/Sex: 34/F Location: [facility] Status: Signed Intake Vital Signs 12/30/24 11:15 01/03/25 10:56 Height 4 ft 11 in BP 100/60 Blood Pressure Location Lt brachial Position Sitting Respiration 14 Pulse 70 Pulse Source NIBP Temp 98.1 F Temp Source Oral Pulse Oximetry (%) 98 Oxygen Delivery Method room air Intake Visit Reasons: CONGESTION Chief Complaint: chest congest, mucus, WRIGHT, ST Block Hacker Required: No Is patient in pain?: No [...] additional social history: Gallo Patient works at [employer] Female Reproductive History Menstrual Ab induced: 1 [...] drainage methylprednisolon (more content not included)... Normal [facility] Rapid group A Streptococcus antigen assay at point of careOrdered By: Solomon Luz on 12-30-2024 S. pyogenes Ag IA.rapid Ql (Throat) Negative [facility] Urgent Care Visit Reporton 0 12-30-2024 Urgent Care Visit Report [facility] [address], [address] [place] [address] OFFICE VISIT Date of Service: 12/30/24 MR#: [id number] Acct: [id number] Name: BARBARA QUINTANILLA Rep #: [id number] : 1990 Provider: CHARLY thomas Age/Sex: 34/F Location: [facility] Status: Signed Intake Vital Signs 07/23/24 14:30 [...] like her neck lymph nodes are swollen. COUNT INCLUDES [facility] Medical History (Updated 12/30/24 @ 12:18 by Solomon Luz CANARY RAISER, CANARY RAISER-C) Wears glasses Wears contact lenses Heartburn Breast [...] additional social history: Gallo Patient works at [employer] Female Reproductive History Menstrual Ab induced: 1 [...] distress Or (more content not included)... Normal [facility] Hepatitis B Core AB IgMon HEP B CORE,IgM Negative Normal Negative [facility] Comment on above: Result Comment: Perf ormed at: [facility] [id number] Supervisor Soakers: Gil Alves PhD, Phone: [phone] Performed By: #### M 100.2887 #### [facility] [address] [place], [address] CTPCRon 09-21-2024 C. trachomatis Interp Normal See CT Interp N [facility] Comment on above: Result Comment: C. t rachomatis DNA not detected. Specimen is presumptive negative for C. trachomatis. A negative result does not preclude C. trachomatis infection because results depend on adequate specimen collection, absence of inhibitors, and sufficient DNA to be detected. See CT Interp N Performed By: #### C TPCR, NGPCR1 #### [place] [address] C.trachomatis PCR Negative Normal Negative [facility] Comment on above: Result Comment: Mole cular (PCR) assay performed on the [place] [employer] 4800 system. Performed By: #### C TPCR, NGPCR1 #### [address] [address] Chlam Source Cervix Normal [facility] Comment on above: Performed By: #### C TPCR, NGPCR1 #### [address] [address] HIV - WCHon 09-21-2024 HIV Non-Reactive Normal Nonreactive [facility] Comment on above: Performed By: #### L 3890.6300, L3890.6005, L3100.0440, L3890.6100, L509.8000 #### [facility] [address] [place], [address] HIV 1 and HIV-2 antibody ass ay with HIV-1 p24 antigen detectionon 09-21-2024 HIV 1+2 Ab+HIV1 p24 Ag IA Ql Non-Reactive Nonreactive [facility] Hepatitis B Surface Antigeno n 09-21-2024 HEP B Surf Ag Non-Reactive Normal Nonreactive [facility] Comment on above: Performed By: #### L 3890.6300, L3890.6005, L3100.0440, L3890.6100, L509.8000 #### [facility] [address] [place], [address] Hepatitis C Antibodyon 09-21 Hepatitis C AB Non-Reactive Normal Nonreactive [facility] Comment on above: Result Comment: Non Reactive: < 0.8 Equivocal: >/= 0.8 to < 1.0 Reactive: >/= 1.0 The [facility] requires that a reactive/equivocal HCV antibody result be sent out for confirmation. HCV Quant by PCR testing. Performed By: #### M 100.2200 #### [facility] [address] [place], [address] L509.8000on 09-21-2024 Syphilis Abs Non-Reactive Normal [facility] Comment on above: Performed By: #### L 3890.6300, L3890.6005, L3100.0440, L3890.6100, L509.8000 #### [facility] [address] [place], [address] [id number] 09-21-2024 GC PCR Source Cervix Normal [facility] Comment on above: Performed By: #### C TPCR, NGPCR1 #### [facility] [address] [place] [address]134 N. gonorrhoeae (PCR) Negative Normal Negative [facility] Comment on above: Result Comment: Mole cular (PCR) assay performed on the [place] [employer] 4800 System. Performed By: #### C TPCR, NGPCR1 #### [facility] [address] [place] [address] 73148 N. gonorrhoeae Interp Normal See NG Interp N [facility] Comment on above: Result Comment: N. g onorrhoeae DNA not detected. Specimen is presumptive negative for N. gonorrhoeae. A negative result does not preclude Neisseria gonorrhoeae infection because results depend on adequate specimen collection, absence of inhibitors, and sufficient DNA to be detected. See NG Interp N Performed By: #### C TPCR, NGPCR1 #### [facility] [address] [place] [address] 12314 Serum Treponema species anti body detectionon 09-21-2024 Treponema sp Ab Ql (S) Non-Reactive [facility] LABORATORYOrdered By: Myrtle Tompkins on 09-20-2024 [...] (Unsp spec) Cervix (09/20/24 4:39 PM) Normal Auto Viro/Sero SS No Panel InformationOrdered By: Solomon Chow on 09-20-2024 Affirm Pathogens DNA Direct Probe Trichomonas vaginalis DNA Probe Negative Darlyn species DNA Probe Negative Gardnerella vaginalis DNA Probe Negative [facility] Brain W/WO Contraston 2023 Brain W/WO Contrast [facility] [address] [place], [place] [address] Brain W/WO Contrast MR#: [id number] Acct: [id number] Name: BARBARA QUINTANILLA Rep #: [id number] : 1990 F 34 From: Marcelino Dunham MD PCP: CHARLY Gerard Status: REG CLI Study: Brain W/WO Contrast Date of Exam: 08/12/24 Exam# [id number] Ordering Dr: Stephanie Kramer NP CANARY RAISER-C [id number] EXAM: MR HEAD WITHOUT AND WITH INTRAVENOUS [...] at 7:59 EST , CC: CHARLY Kramer Blood Bank Laboratory Professional: Signed Normal [facility] Antimullerian Hormone, Serum on 08-11-2024 AMH, SERUM 6.99 ng/mL Normal . [facility] Comment on above: Result Comment: For assays employing antibodies, the possibility exists for interference by heterophile antibodies in the samples.1 1.Corine Reid Interferences in Immunoassays - still a threat. Clin. Chem. 2000; 46: 5142-8246. This test was developed and its performance characteristics determined by [employer]. It has not been cleared or approved by the Food and Drug Administration. Reference Range: Females 31 - 35y: 0.66 - 8.75 Median 3.00 AMH concentrations of >= 1.06 ng/mL is correlated with a better response to ovarian stimulation, produced more retrievable oocytes and higher odds of live according to Lali et al. Fertility and Sterility. 2010: 94:0764-2889. The current AMH test method correlates with [...] exclude an AMH-secreting ovarian tumor. Performed at: [facility] [address] [place] [address] [id number] Supervisor Soakers: Alfie Taylor MD, Phone: [phone] Performed By: #### M 0688.220 #### [facility] [address] [place], [address] Brain/Head without Contrasto n 08-08-2024 Brain/Head without Contrast [facility] [address] [place], [place] [id number] Brain/Head without Contrast MR#: [id number] Acct: [id number] Name: BARBARA QUINTANILLA Rep #: [id number] : 1990 F 34 From: Smith Hopper MD PCP: CHARLY Gerard Status: REG CLI Study: Brain/Head without Contrast Date of Exam: 12/27 Exam# [id number] Ordering Dr: Stephanie Kramer NPC [id number] STUDY: CT BRAIN WITHOUT CONTRAST REASON FOR [...] at 12:37 EST , CC: CHARLY Kramer Blood Bank Laboratory Professional: Signed Normal [facility] CBC-Complete Blood Cnt No Di ffon 08-08-2024 Erythrocyte distribution width (RBC) [Ratio] 13.7 % Normal 11.6-14.6 [facility] Comment on above: Performed By: #### M 8200.3000 #### [facility] [address] [place], [address] Hematocrit (Bld) [Volume fraction] 44.6 % Normal 37-47 [facility] Comment on above: Performed By: #### M 8200.3000 #### [facility] [address] [place], [address] Hemoglobin (Bld) [Mass/Vol] 13.7 g/dL Normal 12.0-15.0 [facility] Comment on above: Performed By: #### M 8200.3000 #### [facility] [address] [place], [address] MCH (RBC) [Entitic mass] 26.3 pg Low 27.0-32.0 [facility] Comment on above: Performed By: #### M 8200.3000 #### [facility] [place], [address] MCHC (RBC) [Mass/Vol] 30.7 g/dL Low 32-36 [facility] Comment on above: Performed By: #### M 8200.3000 #### [facility], [address] MCV (RBC) [Entitic vol] 85.8 fL Normal 81-99 [facility] Comment on above: Performed By: #### M 8200.3000 #### [facility] [address] [place], [address] Platelet mean volume (Bld) [Entitic vol] 9.8 fL Normal 6.2-12.0 [facility] Comment on above: Performed By: #### M 8200.3000 #### [facility] [place], [address] Platelets (Bld) [#/Vol] 298 10*3/uL Normal 150-450 [facility] Comment on above: Performed By: #### M 8200.3000 #### [facility] [address] [place], [address] RBC (Bld) [#/Vol] 5.20 10*6/uL Normal 4.2-5.4 [facility] Comment on above: Performed By: #### M 8200.3000 #### [facility] [address] [place], [address] RDW SD 42.5 fl Normal 35.1-43.9 [facility] Comment on above: Performed By: #### M 8200.3000 #### [facility] [address] [place], [address] WBC (Bld) [#/Vol] 10.4 10*3/uL Normal 4.4-11.0 [facility] Comment on above: Performed By: #### M 8200.3000 #### [facility] [address] [place], [address] Comprehensive Metabolic Prof [facility] 08-08-2024 Albumin [Mass/Vol] 4.3 g/dL Normal 3.2-5.0 [facility] Comment on above: Order Comment: N Performed By: #### M 8200.3000 #### [facility] [address] [place], [address] Albumin/Globulin [Mass ratio] 1.1 {ratio} Normal 0.9-2.4 [facility] Comment on above: Order Comment: N Performed By: #### M 8200.3000 #### [facility] [address] [place], [address] ALK P 52 U/L Normal 45-117 [facility] Comment on above: Order Comment: N Performed By: #### M 8200.3000 #### [facility] [address] [place], [address] ALT [Catalytic activity/Vol] 21 U/L Normal 13-56 [facility] Comment on above: Order Comment: N Performed By: #### M 8200.3000 #### [facility] [address] [place], [address] AST [Catalytic activity/Vol] 15 U/L Normal 15-37 [facility] Comment on above: Order Comment: N Performed By: #### M 8200.3000 #### [facility] [address] [place], [address] Bilirubin [Mass/Vol] 1.40 mg/dL High 0.20-1.00 [facility] Comment on above: Order Comment: N Result Comment: For patients on eltrombopag therapy, use of Dimension Knifley TBIL is not recommended. Performed By: #### M 8200.3000 #### [facility] [address] [place], [address] BUN/CRE 10.7 RATIO Normal 10-20 [facility] Comment on above: Order Comment: N Performed By: #### M 8200.3000 #### [facility] [address] [place], [address] CA,Total 9.9 mg/dL Normal 8.5-10.1 [facility] Comment on above: Order Comment: N Performed By: #### M 8200.3000 #### [facility] [address] [place], [address] Chloride [Moles/Vol] 104 mmol/L Normal 98-107 [facility] Comment on above: Order Comment: N Performed By: #### M 8200.3000 #### [facility] [address] [place], [address] CO2 [Moles/Vol] 27.0 mmol/L Normal 21.0-32.0 [facility] Comment on above: Order Comment: N Performed By: #### M 8200.3000 #### [facility] [address] [place], [address] Creatinine [Mass/Vol] 0.65 mg/dL Normal 0.55-1.02 [facility] Comment on above: Order Comment: N Result Comment: The validity of the calculated GFR GFRAA in patients over 70 years has not been determined. Clinical correlation is essential. Performed By: #### M 8200.3000 #### [facility] [address] [place], [address] EST GFR - AA 133 mL/min Normal >60 [facility] Comment on above: Order Comment: N Result Comment: Afri can [place] GFR Calc Performed By: #### M 8200.3000 #### [facility] [address] [place], [address] GAP 7 Normal 5-15 [facility] Comment on above: Order Comment: N Performed By: #### M 8200.3000 #### [facility] [address] [place], [address] GFR/1.73 sq M.predicted among non-blacks MDRD (S/P/Bld) [Vol rate/Area] 110 mL/min/{1.73_m2} Normal >60 [facility] Comment on above: Order Comment: N Result Comment: Non- GFR Calc Performed By: #### M 8200.3000 #### [facility] [address] [place], [address] Globulin (S) [Mass/Vol] 3.9 g/dL Normal 2.2-4.2 [facility] Comment on above: Order Comment: N Performed By: #### M 8200.3000 #### [facility] [address] [place], [address] Glucose [Mass/Vol] 87 mg/dL Normal 74-106 [facility] Comment on above: Order Comment: N Performed By: #### M 8200.3000 #### [facility] [address] [place], [address] Potassium [Moles/Vol] 3.3 mmol/L Low 3.5-5.1 [facility] Comment on above: Order Comment: N Performed By: #### M 8200.3000 #### [facility] [address] [place], [address] Sodium [Moles/Vol] 138 mmol/L Normal 136-145 [facility] Comment on above: Order Comment: N Performed By: #### M 8200.3000 #### [facility] [address] [place], [address] T PROT 8.2 g/dL Normal 6.4-8.2 [facility] Comment on above: Order Comment: N Performed By: #### M 8200.3000 #### [facility] [address] [place], [address] Urea nitrogen [Mass/Vol] 7 mg/dL Normal 7-18 [facility] Comment on above: Order Comment: N Performed By: #### M 8200.3000 #### [facility] [address] [place], [address] Folates, (Folic Acid)on FOLATES 17.00 ng/mL Normal 3.1-55.4 [facility] Comment on above: Order Comment: N Performed By: #### M 8200.2203 #### [facility] [address] [place], [address] Follicle Stimulating Hormone on 08-08-2024 FSH 5.9 mIU/mL Normal [facility] Comment on above: Order Comment: N Result Comment: NORMAL REFERENCE RANGES FEMALE FOLLICULAR 2.3 - 12.6 mIU/mL MID-CYCLE PEAK 5.2 - 17.5 mIU/mL LUTEAL 1.7 - 12.9 mIU/mL POST-MENOPAUSAL ON MHT 5.9 - 72.8 mIU/mL NOT ON MHT 12.7 - 132.2 mlU/mL MALE 0.7 - 10.8 mIU/mL Performed By: #### M 8200.2203 #### [facility] [address] [place], [address] Lipid Profileon 08-08-2024 Cholesterol [Mass/Vol] 208 mg/dL High 200 [facility] Comment on above: Order Comment: N Result Comment: <200 mg/dL Desirable 200-240 mg/dL Borderline >240 mg/dL High Risk Performed By: #### M 8200.3000 #### [facility] [address] [place], [address] Cholesterol in HDL [Mass/Vol] 83 mg/dL Normal [facility] Comment on above: Order Comment: N Result Comment: The drugs N-Acetylcysteine and Metamizole may falsely depress this assay. Reference Range HDL <40 mg/dL Low HDL Cholesterol HDL >or= 60 mg/dL High HDL Cholesterol Performed By: #### M 8200.3000 #### [facility] [address] [place], [address] Cholesterol in LDL [Mass/Vol] 106 mg/dL Normal 0-130 [facility] Comment on above: Order Comment: N Performed By: #### M 8200.3000 #### [facility] [address] [place], [address] Cholesterol in VLDL [Mass/Vol] 19 mg/dL Normal 5-40 [facility] Comment on above: Order Comment: N Performed By: #### M 8200.3000 #### [facility] [address] [place], [address] Triglyceride [Mass/Vol] 93 mg/dL Normal [facility] Comment on above: Order Comment: N Result Comment: The drugs N-Acetylcysteine and Metamizole may falsely depress this assay. Serum Triglycerides Reference Interval Normal <150 mg/dL Borderline high 150 - 199 mg/dL High 200 - 499 mg/dL Very High > or = 500 mg/dL Performed By: #### M 8200.3000 #### [facility] [address] [place], [place], [address] Luteinizing Hormoneon 2023 LH 5.0 mIU/mL Normal [facility] Comment on above: Order Comment: N Result Comment: NORMAL REFERENCE RANGES FEMALE FOLLICULAR 1.9 - 26.2 mIU/mL MID-CYCLE PEAK 22.8 - 76.1 mIU/mL LUTEAL 0.6 - 16.6 mIU/mL POST-MENOPAUSAL ON MHT 1.1 - 52.4 mIU/mL NOT ON MHT 8.6 - 61.8 mIU/mL MALE 1.2 - 10.6 mIU/mL Performed By: #### M 8200.2203 #### [facility] [address] [place], [address] Magnesiumon 08-08-2024 Magnesium [Mass/Vol] 2.2 mg/dL Normal 1.6-2.6 [facility] Comment on above: Order Comment: N Performed By: #### M 8200.2203 #### [facility] [address] [place], [place], [address] Vitamin B12on 08-08-2024 Cobalamin (Vitamin B12) [Mass/Vol] 689 pg/mL Normal 211-911 [facility] Comment on above: Performed By: #### M 8200.3000 #### [facility] [address] [place], [place], [address] Vitamin D,25 Hydroxyon 08-08 Vitamin D 25-OH 33.8 ng/mL Normal [facility] Comment on above: Result Comment: Clover min D 25(OH) Status Range Deficiency <20 ng/mL (50nmol/L) Insufficiency 20 - 30 ng/mL (50 - 75 nmol/L) Sufficiency 30 - 100 ng/mL (75 - 250 nmol/L) Toxicity >100 ng/mL (>250 nmol/L) Performed By: #### M 8200.3000 #### [facility] [address] [place], [place], [address] Gastroenterology Visit Repor ton 07-17-2024 Gastroenterology Visit Report [facility] [address] [place] [address] OFFICE VISIT Date of Service: 07/17/24 MR#: [id number] Acct: [id number] Name: BARBARA QUINTANILLA Rep #: [id number] : 1990 Provider: CLEVE Wyman Age/Sex: 34/F Location: [facility] Status: Signed Intake Vital Signs 11/02/23 17:18 [...] pain, gas and bloating. Takes metoclopramide daily. COUNT INCLUDES THE [facility] Medical History (Updated 07/17/24 @ 15:24 [...] additional social history: Gallo Patient works at [employer] Female Reproductive History Menstrual Ab induced: 1 HPI HPI Chief Complaint: f/u. Details: BARBARA QUINTANILLA, is a 34 F who presents to the office today for f/u. *BGI established 04.25.24 with daily urgent diarrhea, bloating and nausea. Blood work for IBD, Celiac and food allergens wnl. Contacted office with heartburn and n/v. EGD scheduled. GES abnormal and Reglan started for 2 weeks with not much of a change in symptoms. EGD 06.19.24; - Esophageal mucosal changes suggestive of eosinophilic esophagitis. - Clear gastric fluid. Fluid aspiration performed. - Erythematous mucosa in the gastric body. Biopsied. - No gross lesions in the second portion of the duodenum. Biopsied. - Biopsies were taken with a cold forceps for evaluation of eosinophilic esophagitis. GES 06.21.24; 49 minutes OV 1124 Pt has been doing well with less [...] bowel so (more content not included)... Normal [facility] SCRN MAMM (CAD)W/SIVAKUMAR BILATo n 07-06-2024 SCRN MAMM (CAD)W/SIVAKUMAR BILAT [facility] Imaging Services [address] [place] [address] SCRN MAMM (CAD)W/SIVAKUMAR BILAT MR#: [id number] Acct: [id number] Name: BARBARA QUINTANILLA Rep #: [id number] : 1990 F 33 From: Sixto persaud MD PCP: CHARLY Gerard Status: [facility] Study: SCRN MAMM (CAD)W/SIVAKUMAR BILAT Date of Exam: 09/28 Exam# [id number] Ordering Dr: Lonnie Arriola PA-C [id number] MAMMOGRAPHY - BILATERAL SCREENING REASON FOR EXAM: [...] delay biopsy of a clinically suspicious abnormality. [id number] Electronically Signed: Sixto Monge MD at 8:46 EDT , CC: CHARLY Kramer; SAIDA Arriola Blood Bank Laboratory Professional: Signed Normal [facility] CVFLURVon 05-23-2024 FLU A PCR Negative Normal Negative [facility] Comment on above: Performed By: #### C VFLURV #### [place] [address] FLU B PCR Negative Normal Negative [facility] Comment on above: Performed By: #### C VFLURV #### [place] [address] RSV PCR Negative Normal Negative [facility] Comment on above: Performed By: #### C VFLURV #### [place] [address] SARS-CoV-2 (COVID-19) RNA VON+probe Ql (Unsp spec) Negative Normal Negative [facility] Comment on above: Result Comment: Resu lts [...] Performed By: #### C VFLURV #### [facility] [address] [address] LABORATORYOrdered By: Dillan Dubon on 05-23-2024 FLUAV [...] influenza vaccines may cause inaccurate positive results. Basophil percentageOrdered B y: Stephanie Kramer on 11-10-2023 Bilirubin [Mass/Vol] 0.90 mg/dL 0.20-1.00 [facility] Comment on above: For patients on eltr ombopag therapy, use of Dimension Knifley TBIL is not recommended. Chloride [Moles/Vol] 105 mmol/L 98-107 [facility] Glucose [Mass/Vol] 87 mg/dL 74-106 [facility] Hemoglobin (Bld) [Mass/Vol] 13.4 g/dL 12.0-15.0 [facility] Potassium [Moles/Vol] 4.0 mmol/L 3.5-5.1 [facility] Protein [Mass/Vol] 7.2 g/dL 6.4-8.2 [facility] Sodium [Moles/Vol] 141 mmol/L 136-145 [facility] WBC (Bld) [#/Vol] 9.4 10*3/uL 4.4-11.0 [facility] Determination of erythrocyte mean corpuscular volume (MCV)Ordered By: Stephanie Kramer on 11-10-2023 MCV (RBC) [Entitic vol] 83.4 fL 81-99 [facility] Erythrocyte distribution wid th ratioOrdered By: Stephanie Kramer on 11-10-2023 Erythrocyte distribution width (RBC) [Ratio] 13.1 % 11.6-14.6 [facility] Erythrocyte distribution wid th standard deviationOrdered By: Stephanie Kramer on 11-10-2023 Erythrocyte distribution width (RBC) [Entitic vol] 39.4 fL 35.1-43.9 [facility] Hematocrit Auto (Bld) [Volum e fraction]Ordered By: Stephanie Kramer on 11-10-2023 Hematocrit (Bld) [Volume fraction] 43.3 % 37-47 [facility] Iron measurement (mass/mass) Ordered By: Stephanie Kramer on 11-10-2023 Iron (Unsp spec) [Mass/Mass] 78 ug/dL 50-170 [facility] - Chemistry and C hemistry - challengeOrdered By: Stephanie Kramer on 11-10-2023 Albumin/Globulin [Mass ratio] 1.2 {ratio} 0.9-2.4 [facility] ALP [Catalytic activity/Vol] 38 U/L 45-117 [facility] ALT [Catalytic activity/Vol] 18 U/L 13-56 [facility] CO2 [Moles/Vol] 29.0 mmol/L 21.0-32.0 [facility] Cobalamin (Vitamin B12) [Mass/Vol] 872 pg/mL 211-911 [facility] Globulin (S) [Mass/Vol] 3.3 g/dL 2.2-4.2 [facility] Magnesium [Mass/Vol] 2.1 mg/dL 1.6-2.6 [facility] Urea nitrogen/Creatinine [Mass ratio] 18.4 mg/mg 10-20 [facility] - Hematology and Cell countsOrdered By: Stephanie Kramer on 11-10-2023 MCH (RBC) [Entitic mass] 25.8 pg 27.0-32.0 [facility] MCHC (RBC) [Mass/Vol] 30.9 g/dL 32-36 [facility] Platelet mean volume (Bld) [Entitic vol] 10.0 fL 6.2-12.0 [facility] Platelets (Bld) [#/Vol] 310 10*3/uL 150-450 [facility] No Panel InformationOrdered By: Stephanie Kramer on 11-10-2023 Estimated GFR (MDRD) Amer 134 mL/min >60 [facility] Comment on above: GFR Calc Estimated GFR (MDRD) Non-Af Amer 110 mL/min >60 [facility] Comment on above: Non- GFR Calc Folate 6.40 ng/mL 3.1-55.4 [facility] Total Iron Binding Capacity 297 ug/dL 250-450 [facility] Vitamin D 25-Hydroxy 35.8 ng/mL [facility] Comment on above: Vitamin D 25(OH) Sta tus Range Deficiency <20 ng/mL (50nmol/L) Insufficiency 20 - 30 ng/mL (50 - 75 nmol/L) Sufficiency 30 - 100 ng/mL (75 - 250 nmol/L) Toxicity >100 ng/mL (>250 nmol/L) RBC Auto (Bld) [#/Vol]Ordere d By: Stephanie Kramer on 11-10-2023 RBC (Bld) [#/Vol] 5.19 10*6/uL 4.2-5.4 [facility] Serum or plasma calcium nikole urement (mass/volume)Ordered By: Stephanie Kramer on 11-10-2023 Calcium [Mass/Vol] 8.7 mg/dL 8.5-10.1 [facility] Serum or plasma creatinine m easurement (mass/volume)Ordered By: Stephanie Kramer on 11-10-2023 Creatinine [Mass/Vol] 0.65 mg/dL 0.55-1.02 [facility] Comment on above: The validity of the calculated GFR & GFRAA in patients over 70 years has not been determined. Clinical correlation is essential. Serum or plasma iron saturat ion measurement (mass fraction)Ordered By: Stephanie Kramer on 11-10-2023 Iron saturation [Mass fraction] 26.3 % 15.0-55.0 [facility] Serum or plasma thyroid stim ulating hormone (TSH) measurement (units/volume)Ordered By: Stephanie Kramer on 11-10-2023 TSH Qn 0.55 uIU/mL 0.358-3.74 [facility] Serum or plasma urea nitroge n measurement (mass/volume)Ordered By: Stephanie Kramer on 11-10-2023 Urea nitrogen [Mass/Vol] 12 mg/dL 7-18 [facility] Thin prep Papanicolaou smear with manual screeningOrdered By: Stephanie Kramer on 11-10-2023 Thin prep Papanicolaou smear with manual screening 3.9 g/dL 3.2-5.0 [facility] Thin prep Papanicolaou smear with manual screening 11 U/L 15-37 [facility] Thin prep Papanicolaou smear with manual screening 7 5-15 [facility] Thin prep Papanicolaou smear with manual screening 1.07 ng/dL 0.76-1.46 [facility] Erythrocyte sedimentation ra teOrdered By: Jed Harp on 10-31-2023 ESR (Bld) [Velocity] 15 mm/h 0-30 [facility] Basophil percentageOrdered B y: Stephanie Kramer on 05-31-2023 Amylase [Catalytic activity/Vol] 33 U/L 25-115 [facility] Bilirubin [Mass/Vol] 0.70 mg/dL 0.20-1.00 [facility] Comment on above: For patients on eltr ombopag therapy, use of Dimension Knifley TBIL is not recommended. Chloride [Moles/Vol] 107 mmol/L 98-107 [facility] Glucose [Mass/Vol] 90 mg/dL 74-106 [facility] Potassium [Moles/Vol] 3.7 mmol/L 3.5-5.1 [facility] Protein [Mass/Vol] 7.3 g/dL 6.4-8.2 [facility] Center Sodium [Moles/Vol] 140 mmol/L 136-145 [facility] WBC (Bld) [#/Vol] 6.8 10*3/uL 4.4-11.0 [facility] Blood erythrocytes count (nu mber/volume)Ordered By: Stephanie Kramer on 05-31-2023 RBC (Bld) [#/Vol] 5.00 10*6/uL 4.2-5.4 [facility] Blood hemoglobin measurement (mass/volume)Ordered By: Stephanie Kramer on 05-31-2023 Hemoglobin (Bld) [Mass/Vol] 13.2 g/dL 12.0-15.0 [facility] Blood platelet mean volumeOr dered By: Stephanie Kramer on 05-31-2023 Platelet mean volume (Bld) [Entitic vol] 10.3 fL 6.2-12.0 [facility] Chocolate RASTOrdered By: Cristina Kramer on 05-31-2023 Chocolate IgE Qn (S) <0.10 kU/L Class 0 [facility] Comment on above: Effective June 06, 2023 [id number] Allergen Profile, BasicFood be made non-orderable. [facility] offers [id number](14). Determination of erythrocyte mean corpuscular volume (MCV)Ordered By: Stephanie Kramer on 05-31-2023 MCV (RBC) [Entitic vol] 86.6 fL 81-99 [facility] Hematocrit Auto (Bld) [Volum e fraction]Ordered By: Stephanie Kramer on 05-31-2023 Hematocrit (Bld) [Volume fraction] 43.3 % 37-47 [facility] Iron measurement (mass/mass) Ordered By: Stephanie Kramer on 05-31-2023 Iron (Unsp spec) [Mass/Mass] 33 ug/dL 50-170 [facility] Laboratory - Chemistry and C hemistry - challengeOrdered By: Stephanie Kramer on 05-31-2023 ALP [Catalytic activity/Vol] 51 U/L 45-117 [facility] ALT [Catalytic activity/Vol] 22 U/L 13-56 [facility] CO2 [Moles/Vol] 27.0 mmol/L 21.0-32.0 [facility] Globulin (S) [Mass/Vol] 3.7 g/dL 2.2-4.2 [facility] Lipase [Catalytic activity/Vol] 26 U/L 13-75 [facility] Comment on above: Please note:LIPASE r evised reference range effective 22. New Lipase methodology. Expected to produce lower values than the previous assay method. NEW Reference Range: 13 - 75 U/L Urea nitrogen/Creatinine [Mass ratio] 16.8 mg/mg 10-20 [facility] Laboratory - Hematology and Cell countsOrdered By: Stephanie Kramer on 05-31-2023 Erythrocyte distribution width (RBC) [Entitic vol] 40.9 fL 35.1-43.9 [facility] Erythrocyte distribution width (RBC) [Ratio] 13.2 % 11.6-14.6 [facility] MCH (RBC) [Entitic mass] 26.4 pg 27.0-32.0 [facility] Laboratory - Miscellaneous t estsOrdered By: Stephanie Kramer on 05-31-2023 Service comment (Unsp spec) [Interp] Comment . [facility] Comment on above: Levels of Specific [...] 05-31-2023 MCHC (RBC) [Mass/Vol] 30.5 g/dL 32-36 [facility] No Panel InformationOrdered By: Stephanie Kramer on 05-31-2023 Anti-Gliadin IgA Antibody 8 units 0-19 [facility] Comment on above: Negative 0 - 19 Weak Positive 20 - 30 Moderate to Strong Positive >30 Anti-Gliadin IgG Antibody 2 units 0-19 [facility] Comment on above: Negative 0 - 19 Weak Positive 20 - 30 Moderate to Strong Positive >30 Estimated GFR (MDRD) Amer 149 mL/min >60 [facility] Comment on above: GFR Calc Estimated GFR (MDRD) Non-Af Amer 123 mL/min >60 [facility] Comment on above: Non- GFR Calc [employer] Allergens (RAST) Negative . [facility] Comment on above: Allergens in this mi x are: Blue mussel Fish [place] Shrimp TunaEffective June 06, 2023 [id number] Food Mix(Seafoods) will be made non-orderable. [facility] [id number] Allergens(5). Total Iron Binding Capacity 330 ug/dL 250-450 [facility] Platelets bldOrdered By: Patricia Kramer on 05-31-2023 Platelets (Bld) [#/Vol] 212 10*3/uL 150-450 [facility] Serum beef IgE antibody assa y (units/volume)Ordered By: Stephanie Kramer on 05-31-2023 Beef IgE Qn (S) <0.10 kU/L Class 0 [facility] Serum cheese cheddar type Ig E antibody assay (units/volume)Ordered By: Stephanie Kramer on 05-31-2023 Cheese cheddar type IgE Qn (S) <0.10 kU/L Class 0 [facility] Comment on above: Performed at: - [address] [id number] Director: Camilo Major MD, Phone: [phone] Serum chicken IgE antibody a ssay (units/volume)Ordered By: Stephanie Kramer on 05-31-2023 Chicken IgE Qn (S) <0.10 kU/L Class 0 [facility] Serum corn IgE antibody assa y (units/volume)Ordered By: Stephanie Kramer on 05-31-2023 [place] IgE Qn (S) <0.10 kU/L Class 0 [facility] Serum cow milk IgE antibody assay (units/volume)Ordered By: Stephanie Kramer on 05-31-2023 Cow milk IgE Qn (S) <0.10 kU/L Class 0 [facility] Serum egg white IgE antibody assay (units/volume)Ordered By: Stephanie Kramer on 05-31-2023 Egg white IgE Qn (S) <0.10 kU/L Class 0 [facility] Serum egg yolk IgE antibody assay (units/volume)Ordered By: Stephanie Kramer on 05-31-2023 Egg yolk IgE Qn (S) <0.10 kU/L Class 0 [facility] Serum gluten IgE antibody as say (units/volume)Ordered By: Stephanie Kramer on 05-31-2023 Gluten IgE Qn (S) <0.10 kU/L Class 0 [facility] Serum or plasma albumin nikole urement (mass/volume)Ordered By: Stephanie Kramer on 05-31-2023 Albumin [Mass/Vol] 3.6 g/dL 3.2-5.0 [facility] Serum or plasma albumin/glob ulin mass ratioOrdered By: Stephanie Kramer on 05-31-2023 Albumin/Globulin [Mass ratio] 1.0 {ratio} 0.9-2.4 [facility] Serum or plasma calcium nikole urement (mass/volume)Ordered By: Stephanie Kramer on 05-31-2023 Calcium [Mass/Vol] 8.7 mg/dL 8.5-10.1 [facility] Serum or plasma creatinine m easurement (mass/volume)Ordered By: Stephanie Kramer on 05-31-2023 Creatinine [Mass/Vol] 0.60 mg/dL 0.55-1.02 [facility] Comment on above: The validity of the calculated GFR & GFRAA in patients over 70 years has not been determined. Clinical correlation is essential. Serum or plasma ferritin misbah surement (mass/volume)Ordered By: Stephanie Kramer on 05-31-2023 Ferritin [Mass/Vol] 79 ng/mL 8252 [facility] Serum or plasma iron saturat ion measurement (mass fraction)Ordered By: Stephanie Kramer on 05-31-2023 Iron saturation [Mass fraction] 10.0 % 15.0-55.0 [facility] Serum or plasma urea nitroge n measurement (mass/volume)Ordered By: Stephanie Kramer on 05-31-2023 Urea nitrogen [Mass/Vol] 10 mg/dL 7-18 [facility] Serum peanut IgE antibody as say (units/volume)Ordered By: Stephanie Kramer on 05-31-2023 Peanut IgE Qn (S) <0.10 kU/L Class 0 [facility] Serum pork IgE antibody assa y (units/volume)Ordered By: Stephanie Kramer on 05-31-2023 Pork IgE Qn (S) <0.10 kU/L Class 0 [facility] Serum soybean IgE antibody a ssay (units/volume)Ordered By: Stephanie Kramer on 05-31-2023 Soybean IgE Qn (S) <0.10 kU/L Class 0 [facility] Serum tissue transglutaminas e IgA antibody assay (units/volume)Ordered By: Stephanie Kramer on 05-31-2023 tTG IgA Qn (S) <2 U/mL 0-3 [facility] Comment on above: Negative 0 - 3 Weak Positive 4 - 10 Positive >10 Tissue Transglutaminase (tTG) has been identified as the endomysial antigen. Studies have demonstr- ated that endomysial IgA antibodies have over 99% specificity for gluten sensitive enteropathy.Performed at: [address] [id number] Director: Gil Alves PhD, Phone: [phone] Serum wheat IgE antibody ass ay (units/volume)Ordered By: Stephanie Kramer on 05-31-2023 Wheat IgE Qn (S) <0.10 kU/L Class 0 [facility] Serum white potato specific IgE antibody assayOrdered By: Stephanie Kramer on 05-31-2023 Potato IgE Qn (S) <0.10 kU/L Class 0 [facility] Serum whole egg IgE antibody assay (units/volume)Ordered By: Stephanie Kramer on 05-31-2023 Whole Egg IgE Qn (S) <0.10 kU/L Class 0 [facility] Thin prep Papanicolaou smear with manual screeningOrdered By: Stephanie Kramer on 05-31-2023 Thin prep Papanicolaou smear with manual screening 12 U/L 15-37 [facility] Thin prep Papanicolaou smear with manual screening 6 5-15 [facility] Laboratory - Microbiology an d Antimicrobial susceptibilityon 04-28-2023 SARS-CoV-2 (COVID-19) RNA VON+probe Ql (Unsp spec) Not detected [facility] No Panel Informationon 04-28 Influenza Types A,B Rapid (Clinic) Not detected [facility] Absolute lymphocyte countOrd ered By: HEALTH ASSESSMENT on 04-21-2023 Lymphocytes Auto (Unsp spec) [#/Vol] 2.22 10*3/uL 0.83-4.51 [facility] Absolute reticulocyte countO rdered By: HEALTH ASSESSMENT on 04-21-2023 Reticulocytes (Bld) [#/Vol] 0.00 10*3/uL 0-5 [facility] Basophil percentageOrdered B y: HEALTH ASSESSMENT on 04-21-2023 Basophil percentage 2.8 mg/dL 2.5-4.9 [facility] Bilirubin [Mass/Vol] 1.30 mg/dL 0.20-1.00 [facility] Comment on above: For patients on eltr ombopag therapy, use of Dimension [place] TBIL is not recommended. Chloride [Moles/Vol] 106 mmol/L 98-107 [facility] Cholesterol [Mass/Vol] 159 mg/dL <200 [facility] Comment on above: <200 mg/dL Desirable 200-240 mg/dL Borderline >240 mg/dL High Risk Glucose [Mass/Vol] 86 mg/dL 74-106 [facility] LDH [Catalytic activity/Vol] 146 U/L 84-246 [facility] Neutrophils (Bld) [#/Vol] 4.3 10*3/uL 2.0-7.7 [facility] Potassium [Moles/Vol] 3.5 mmol/L 3.5-5.1 [facility] Protein [Mass/Vol] 7.7 g/dL 6.4-8.2 [facility] Sodium [Moles/Vol] 138 mmol/L 136-145 [facility] Triglyceride [Mass/Vol] 83 mg/dL <199 [facility] Comment on above: The drugs N-Acetylcy steine and Metamizole may falsely depress this assay.Serum Triglycerides Reference Interval Normal <150 mg/dL Borderline high 150 - 199 mg/dL High 200 - 499 mg/dL Very High > or = 500 mg/dL WBC (Bld) [#/Vol] 7.1 10*3/uL 4.4-11.0 [facility] Bilirubin Test strip Ql (U)O rdered By: HEALTH ASSESSMENT on 04-21-2023 Bilirubin Ql (U) Negative Negative [facility] Blood erythrocytes count (nu mber/volume)Ordered By: HEALTH ASSESSMENT on 04-21-2023 RBC (Bld) [#/Vol] 5.16 10*6/uL 4.2-5.4 [facility] Blood hemoglobin measurement (mass/volume)Ordered By: HEALTH ASSESSMENT on 04-21-2023 Hemoglobin (Bld) [Mass/Vol] 13.7 g/dL 12.0-15.0 [facility] Blood platelet mean volumeOr dered By: HEALTH ASSESSMENT on 04-21-2023 Platelet mean volume (Bld) [Entitic vol] 9.9 fL 6.2-12.0 [facility] Determination of erythrocyte mean corpuscular volume (MCV)Ordered By: HEALTH ASSESSMENT on 04-21-2023 MCV (RBC) [Entitic vol] 85.9 fL 81-99 [facility] Direct bilirubinOrdered By: HEALTH ASSESSMENT on 04-21-2023 Bilirubin.direct [Mass/Vol] 0.30 mg/dL 0.00-0.30 [facility] Hematocrit Auto (Bld) [Volum e fraction]Ordered By: HEALTH ASSESSMENT on 04-21-2023 Hematocrit (Bld) [Volume fraction] 44.3 % 37-47 [facility] Ketones Test strip Ql (U)Ord ered By: HEALTH ASSESSMENT on 04-21-2023 Ketones Ql (U) 5 mg/dl Negative [facility] Laboratory - Chemistry and C hemistry - challengeOrdered By: HEALTH ASSESSMENT on 04-21-2023 ALP [Catalytic activity/Vol] 43 U/L 45-117 [facility] ALT [Catalytic activity/Vol] 17 U/L 13-56 [facility] Cholesterol.total/Haley sterol in HDL [Mass ratio] 2.60 {ratio} [facility] CO2 [Moles/Vol] 27.0 mmol/L 21.0-32.0 [facility] Globulin (S) [Mass/Vol] 3.6 g/dL 2.2-4.2 [facility] Urea nitrogen/Creatinine [Mass ratio] 11.2 mg/mg 10-20 [facility] Laboratory - Hematology and Cell countsOrdered By: HEALTH ASSESSMENT on 04-21-2023 Erythrocyte distribution width (RBC) [Entitic vol] 40.4 fL 35.1-43.9 [facility] Erythrocyte distribution width (RBC) [Ratio] 13.0 % 11.6-14.6 [facility] MCH (RBC) [Entitic mass] 26.6 pg 27.0-32.0 [facility] Nucleated RBC/100 WBC (Bld) [Ratio] 0 % 0-5 [facility] MCHC Auto (RBC) [Mass/Vol]Or dered By: HEALTH ASSESSMENT on 04-21-2023 MCHC (RBC) [Mass/Vol] 30.9 g/dL 32-36 [facility] Nitrite Test strip Ql (U)Ord ered By: HEALTH ASSESSMENT on 04-21-2023 Nitrite Ql (U) Negative Negative [facility] No Panel InformationOrdered By: HEALTH ASSESSMENT on 04-21-2023 Estimated GFR (MDRD) Amer 120 mL/min >60 [facility] Comment on above: GFR Calc Estimated GFR (MDRD) Non-Af Amer 99 mL/min >60 [facility] Comment on above: Non- GFR Calc Platelets bldOrdered By: HOWARD LT ASSESSMENT on 04-21-2023 Platelets (Bld) [#/Vol] 253 10*3/uL 150-450 [facility] Protein Test strip Ql (U)Ord ered By: HEALTH ASSESSMENT on 04-21-2023 Protein Ql (U) 15 mg/dl Negative [facility] Segmented neutrophils/100 WB C Auto (Bld)Ordered By: HEALTH ASSESSMENT on 04-21-2023 Segmented neutrophils/100 WBC (Bld) 61.0 % 47-70 [facility] Serum or plasma albumin nikole urement (mass/volume)Ordered By: HEALTH ASSESSMENT on 04-21-2023 Albumin [Mass/Vol] 4.1 g/dL 3.2-5.0 [facility] Serum or plasma albumin/glob ulin mass ratioOrdered By: HEALTH ASSESSMENT on 04-21-2023 Albumin/Globulin [Mass ratio] 1.1 {ratio} 0.9-2.4 [facility] Serum or plasma calcium nikole urement (mass/volume)Ordered By: HEALTH ASSESSMENT on 04-21-2023 Calcium [Mass/Vol] 9.0 mg/dL 8.5-10.1 [facility] Serum or plasma cholesterol in HDL measurement (mass/volume)Ordered By: HEALTH ASSESSMENT on 04-21-2023 Cholesterol in HDL [Mass/Vol] 61 mg/dL >40 [facility] Comment on above: The drugs N-Acetylcy steine and Metamizole may falsely depress this assay. Reference Range HDL <40 mg/dL Low HDL Cholesterol HDL >or= 60 mg/dL High HDL Cholesterol Serum or plasma cholesterol in VLDL measurement (mass/volume)Ordered By: HEALTH ASSESSMENT on 04-21-2023 Cholesterol in VLDL [Mass/Vol] 17 mg/dL 5-40 [facility] Serum or plasma creatinine m easurement (mass/volume)Ordered By: HEALTH ASSESSMENT on 04-21-2023 Creatinine [Mass/Vol] 0.72 mg/dL 0.55-1.02 [facility] Comment on above: The validity of the calculated GFR & GFRAA in patients over 70 years has not been determined. Clinical correlation is essential. Serum or plasma low density lipoprotein (LDL) cholesterol measurement (mass/volume)Ordered By: HEALTH ASSESSMENT on 04-21-2023 Cholesterol in LDL [Mass/Vol] 81 mg/dL 0-130 [facility] Serum or plasma urea nitroge n measurement (mass/volume)Ordered By: HEALTH ASSESSMENT on 04-21-2023 Urea nitrogen [Mass/Vol] 8 mg/dL 7-18 [facility] Serum or plasma uric acid me asurement (mass/volume)Ordered By: HEALTH ASSESSMENT on 04-21-2023 Urate [Mass/Vol] 4.4 mg/dL 2.6-6.0 [facility] Comment on above: The drugs N-Acetylcy steine and Metamizole may falsely depress this assay. Thin prep Papanicolaou smear with manual screeningOrdered By: HEALTH ASSESSMENT on 04-21-2023 Thin prep Papanicolaou smear with manual screening 11 U/L 15-37 [facility] Thin prep Papanicolaou smear with manual screening 5 5-15 [facility] Urine blood detectionOrdered By: HEALTH ASSESSMENT on 04-21-2023 RBC Ql (U) 10 /ul Negative [facility] Urine clarityOrdered By: A [facility] ASSESSMENT on 04-21-2023 Clarity (U) Sl. Cloudy Clear [facility] Urine color determinationOrd ered By: HEALTH ASSESSMENT on 04-21-2023 Color (U) Yellow Yellow [facility] Urine glucose detectionOrder ed By: HEALTH ASSESSMENT on 04-21-2023 Glucose Ql (U) Normal mg/dl Normal [facility] Urine leukocyte esterase det ection by dipstickOrdered By: HEALTH ASSESSMENT on 04-21-2023 Leukocyte esterase Test strip Ql (U) Negative Negative [facility] Urine pHOrdered By: HEALTH A SSESSMENT on 04-21-2023 pH (U) 6.0 [pH] 5.0 - 8.0 [facility] Urine specific gravity measu rementOrdered By: HEALTH ASSESSMENT on 04-21-2023 Specific gravity (U) [Rel density] 1.015 1.002-1.030 [facility] Urobilinogen Auto test strip Ql (U)Ordered By: HEALTH ASSESSMENT on 04-21-2023 Urobilinogen Ql (U) Normal mg/dl Normal [facility] Basophil percentageOrdered B y: Stephanie Kramer on 01-11-2023 Bilirubin [Mass/Vol] 0.80 mg/dL 0.20-1.00 [facility] Comment on above: For patients on eltr ombopag therapy, use of Dimension [place] TBIL is not recommended. Chloride [Moles/Vol] 107 mmol/L 98-107 [facility] Cholesterol [Mass/Vol] 194 mg/dL <200 [facility] Comment on above: <200 mg/dL Desirable 200-240 mg/dL Borderline >240 mg/dL High Risk Glucose [Mass/Vol] 94 mg/dL 74-106 [facility] Potassium [Moles/Vol] 3.8 mmol/L 3.5-5.1 [facility] Protein [Mass/Vol] 7.6 g/dL 6.4-8.2 [facility] Sodium [Moles/Vol] 138 mmol/L 136-145 [facility] Triglyceride [Mass/Vol] 68 mg/dL <199 [facility] Comment on above: The drugs N-Acetylcy steine and Metamizole may falsely depress this assay.Serum Triglycerides Reference Interval Normal <150 mg/dL Borderline high 150 - 199 mg/dL High 200 - 499 mg/dL Very High > or = 500 mg/dL WBC (Bld) [#/Vol] 10.6 10*3/uL 4.4-11.0 [facility] Blood erythrocytes count (nu mber/volume)Ordered By: Stephanie Kramer on 01-11-2023 RBC (Bld) [#/Vol] 5.34 10*6/uL 4.2-5.4 [facility] Blood hemoglobin measurement (mass/volume)Ordered By: Stephanie Kramer on 01-11-2023 Hemoglobin (Bld) [Mass/Vol] 13.8 g/dL 12.0-15.0 [facility] Blood platelet mean volumeOr dered By: Stephanie Kramer on 01-11-2023 Platelet mean volume (Bld) [Entitic vol] 9.3 fL 6.2-12.0 [facility] Determination of erythrocyte mean corpuscular volume (MCV)Ordered By: Stephanie Kramer on 01-11-2023 MCV (RBC) [Entitic vol] 84.1 fL 81-99 [facility] Hematocrit Auto (Bld) [Volum e fraction]Ordered By: Stephanie Kramer on 01-11-2023 Hematocrit (Bld) [Volume fraction] 44.9 % 37-47 [facility] Laboratory - Chemistry and C hemistry - challengeOrdered By: Stephanie Kramer on 01-11-2023 ALP [Catalytic activity/Vol] 54 U/L 45-117 [facility] ALT [Catalytic activity/Vol] 24 U/L 13-56 [facility] CO2 [Moles/Vol] 26.0 mmol/L 21.0-32.0 [facility] Free T4 [Mass/Vol] 1.07 ng/dL 0.76-1.46 [facility] Globulin (S) [Mass/Vol] 3.7 g/dL 2.2-4.2 [facility] Urea nitrogen/Creatinine [Mass ratio] 17.4 mg/mg 10-20 [facility] - Hematology and Cell countsOrdered By: Stephanie Kramer on 01-11-2023 Erythrocyte distribution width (RBC) [Entitic vol] 42.9 fL 35.1-43.9 [facility] Erythrocyte distribution width (RBC) [Ratio] 14.0 % 11.6-14.6 [facility] MCH (RBC) [Entitic mass] 25.8 pg 27.0-32.0 [facility] MCHC Auto (RBC) [Mass/Vol]Or dered By: Stephanie Kramer on 01-11-2023 MCHC (RBC) [Mass/Vol] 30.7 g/dL 32-36 [facility] No Panel InformationOrdered By: Stephanie Krmaer on 01-11-2023 Estimated GFR (MDRD) Amer 139 mL/min >60 [facility] Comment on above: GFR Calc Estimated GFR (MDRD) Non-Af Amer 115 mL/min >60 [facility] Comment on above: Non- GFR Calc Thyroid Stimulating Hormone (TSH) 0.58 uIU/mL 0.358-3.74 [facility] Platelets bldOrdered By: Patricia Kramer on 01-11-2023 Platelets (Bld) [#/Vol] 273 10*3/uL 150-450 [facility] Serum or plasma albumin nikole urement (mass/volume)Ordered By: Stephanie Kramer on 01-11-2023 Albumin [Mass/Vol] 3.9 g/dL 3.2-5.0 [facility] Serum or plasma albumin/glob ulin mass ratioOrdered By: Stephanie Kramer on 01-11-2023 Albumin/Globulin [Mass ratio] 1.1 {ratio} 0.9-2.4 [facility] Serum or plasma calcium nikole urement (mass/volume)Ordered By: Stephanie Kramer on 01-11-2023 Calcium [Mass/Vol] 9.2 mg/dL 8.5-10.1 [facility] Serum or plasma cholesterol in HDL measurement (mass/volume)Ordered By: Stephanie Kramer on 01-11-2023 Cholesterol in HDL [Mass/Vol] 61 mg/dL >40 [facility] Comment on above: The drugs N-Acetylcy steine and Metamizole may falsely depress this assay. Reference Range HDL <40 mg/dL Low HDL Cholesterol HDL >or= 60 mg/dL High HDL Cholesterol Serum or plasma cholesterol in VLDL measurement (mass/volume)Ordered By: Stephanie Kramer on 01-11-2023 Cholesterol in VLDL [Mass/Vol] 14 mg/dL 5-40 [facility] Serum or plasma creatinine m easurement (mass/volume)Ordered By: Stephanie Kramer on 01-11-2023 Creatinine [Mass/Vol] 0.63 mg/dL 0.55-1.02 [facility] Comment on above: The validity of the calculated GFR & GFRAA in patients over 70 years has not been determined. Clinical correlation is essential. Serum or plasma low density lipoprotein (LDL) cholesterol measurement (mass/volume)Ordered By: Stephanie Kramer on 01-11-2023 Cholesterol in LDL [Mass/Vol] 119 mg/dL 0-130 [facility] Serum or plasma urea nitroge n measurement (mass/volume)Ordered By: Stephanie Kramer on 01-11-2023 Urea nitrogen [Mass/Vol] 11 mg/dL 7-18 [facility] Thin prep Papanicolaou smear with manual screeningOrdered By: Stephanie Kramer on 01-11-2023 Thin prep Papanicolaou smear with manual screening 14 U/L 15-37 [facility] Thin prep Papanicolaou smear with manual screening 5 5-15 [facility] Absolute lymphocyte counton 08-29-2022 Lymphocytes Auto (Unsp spec) [#/Vol] 3.18 10*3/uL 0.83-4.51 [facility] Work Phone: Basophil percentageon 2021 Basophils/100 WBC (Bld) 0.5 % 0-1 [facility] Work Phone: Bilirubin [Mass/Vol] 0.20 mg/dL 0.20-1.00 [facility] Work Phone: Comment on above: For patients on eltr ombopag therapy, use of Dimension [place] TBIL is not recommended. Chloride [Moles/Vol] 108 mmol/L 98-107 [facility] Work Phone: Eosinophils/100 WBC (Bld) 1.9 % 0-5 [facility] Work Phone: Glucose [Mass/Vol] 103 mg/dL 74-106 [facility] Work Phone: Comment on above: Fasting Glucose resu lt from 100 to 125 mg/dL suggests IMPAIRED HOMEOSTASIS per A.D.A. criteria. Neutrophils (Bld) [#/Vol] 5.8 10*3/uL 2.0-7.7 [facility] Work Phone: Neutrophils/100 WBC (Bld) 57.8 % 47-70 [facility] Work Phone: Potassium [Moles/Vol] 3.4 mmol/L 3.5-5.1 [facility] Work Phone: Protein [Mass/Vol] 7.4 g/dL 6.4-8.2 [facility] Work Phone: Sodium [Moles/Vol] 141 mmol/L 136-145 [facility] Work Phone: WBC (Bld) [#/Vol] 10.0 10*3/uL 4.4-11.0 [facility] Work Phone: [phone] Blood erythrocytes count (nu mber/volume)on 08-29-2022 RBC (Bld) [#/Vol] 4.08 10*6/uL 4.2-5.4 [facility] Work Phone: [phone] Blood hemoglobin measurement (mass/volume)on 08-29-2022 Hemoglobin (Bld) [Mass/Vol] 10.9 g/dL 12.0-15.0 [facility] Work Phone: [phone] Blood lymphocytes/100 leukoc yteson 08-29-2022 Lymphocytes/100 WBC (Bld) 31.8 % 19-41 [facility] Work Phone: [phone] Blood monocytes/100 leukocyt eson 08-29-2022 Monocytes/100 WBC (Bld) 6.9 % 0-10 [facility] Work Phone: [phone] Blood platelet mean volumeon 08-29-2022 Platelet mean volume (Bld) [Entitic vol] 9.1 fL 6.2-12.0 [facility] Work Phone: [phone] Determination of erythrocyte mean corpuscular volume (MCV)on 08-29-2022 MCV (RBC) [Entitic vol] 82.8 fL 81-99 [facility] Work Phone: [phone] Hematocrit Auto (Bld) [Volum e fraction]on 08-29-2022 Hematocrit (Bld) [Volume fraction] 33.8 % 37-47 [facility] Work Phone: Laboratory - Chemistry and C hemistry - challengeon 08-29-2022 ALP [Catalytic activity/Vol] 72 U/L 45-117 [facility] Work Phone: [phone] ALT [Catalytic activity/Vol] 30 U/L 13-56 [facility] Work Phone: [phone] CO2 [Moles/Vol] 26.0 mmol/L 21.0-32.0 [facility] Work Phone: [phone] Globulin (S) [Mass/Vol] 4.4 g/dL 2.2-4.2 [facility] Work Phone: [phone] Urea nitrogen/Creatinine [Mass ratio] 12.3 mg/mg 10-20 [facility] Work Phone: [phone] Laboratory - Hematology and Cell countson 08-29-2022 Erythrocyte distribution width (RBC) [Entitic vol] 39.4 fL 35.1-43.9 [facility] Work Phone: [phone] Erythrocyte distribution width (RBC) [Ratio] 13.0 % 11.6-14.6 [facility] Work Phone: [phone] Immature granulocytes/100 WBC (Bld) 1.100 % 0.0-0.9 [facility] Work Phone: [phone] Comment on above: IG% - Immature Granu locytes (promyelocytes, myelocytes and metamyelocytes) > 1% indicates that a LEFT SHIFT is Present. MCH (RBC) [Entitic mass] 26.7 pg 27.0-32.0 [facility] Work Phone: [phone] Nucleated RBC/100 WBC (Bld) [Ratio] 0 % 0-5 [facility] Work Phone: [phone] MCHC Auto (RBC) [Mass/Vol]on 08-29-2022 MCHC (RBC) [Mass/Vol] 32.2 g/dL 32-36 [facility] Work Phone: [phone] Panel Informationon 08-29 Estimated Creatinine Clearance Calc 78.73 ml/min [facility] Work Phone: [phone] Estimated GFR (MDRD) Amer 117 mL/min >60 [facility] Work Phone: [phone] Comment on above: GFR Calc Estimated GFR (MDRD) Non-Af Amer 97 mL/min >60 [facility] Work Phone: [phone] Comment on above: Non- GFR Calc Platelets bldon 08-29-2022 Platelets (Bld) [#/Vol] 493 10*3/uL 150-450 [facility] Work Phone: [phone] Serum or plasma albumin nikole urement (mass/volume)on 08-29-2022 Albumin [Mass/Vol] 3.0 g/dL 3.2-5.0 [facility] Work Phone: [phone] Serum or plasma albumin/glob ulin mass ratioon 08-29-2022 Albumin/Globulin [Mass ratio] 0.7 {ratio} 0.9-2.4 [facility] Work Phone: [phone] Serum or plasma calcium nikole urement (mass/volume)on 08-29-2022 Calcium [Mass/Vol] 8.9 mg/dL 8.5-10.1 [facility] Work Phone: [phone] Serum or plasma creatinine m easurement (mass/volume)on 08-29-2022 Creatinine [Mass/Vol] 0.73 mg/dL 0.55-1.02 [facility] Work Phone: [phone] Comment on above: The validity of the calculated GFR & GFRAA in patients over 70 years has not been determined. Clinical correlation is essential. Serum or plasma urea nitroge n measurement (mass/volume)on 08-29-2022 Urea nitrogen [Mass/Vol] 9 mg/dL 7-18 [facility] Work Phone: [phone] Thin prep Papanicolaou smear with manual screeningon 08-29-2022 Thin prep Papanicolaou smear with manual screening 11 U/L 15-37 [facility] Work Phone: [phone] Thin prep Papanicolaou smear with manual screening 7 5-15 [facility] Work Phone: [phone] Absolute lymphocyte counton 08-26-2022 Lymphocytes Auto (Unsp spec) [#/Vol] 1.76 10*3/uL 0.83-4.51 [facility] Work Phone: [phone] Basophil percentageon 2021 Basophils/100 WBC (Bld) 0.2 % 0-1 [facility] Work Phone: [phone] Bilirubin [Mass/Vol] 0.40 mg/dL 0.20-1.00 [facility] Work Phone: Comment on above: For patients on eltr ombopag therapy, use of Dimension [place] TBIL is not recommended. Chloride [Moles/Vol] 111 mmol/L 98-107 [facility] Work Phone: Eosinophils/100 WBC (Bld) 1.1 % 0-5 [facility] Work Phone: Glucose [Mass/Vol] 104 mg/dL 74-106 [facility] Work Phone: Comment on above: Fasting Glucose resu lt from 100 to 125 mg/dL suggests IMPAIRED HOMEOSTASIS per A.D.A. criteria. Neutrophils (Bld) [#/Vol] 9.6 10*3/uL 2.0-7.7 [facility] Work Phone: Neutrophils/100 WBC (Bld) 77.1 % 47-70 [facility] Work Phone: Potassium [Moles/Vol] 3.3 mmol/L 3.5-5.1 [facility] Work Phone: Protein [Mass/Vol] 5.8 g/dL 6.4-8.2 [facility] Work Phone: Sodium [Moles/Vol] 143 mmol/L 136-145 [facility] Work Phone: WBC (Bld) [#/Vol] 12.5 10*3/uL 4.4-11.0 [facility] Work Phone: Blood erythrocytes count (nu mber/volume)on 08-26-2022 RBC (Bld) [#/Vol] 3.47 10*6/uL 4.2-5.4 [facility] Work Phone: Blood hemoglobin measurement (mass/volume)on 08-26-2022 Hemoglobin (Bld) [Mass/Vol] 9.3 g/dL 12.0-15.0 [facility] Work Phone: Blood lymphocytes/100 leukoc yteson 08-26-2022 Lymphocytes/100 WBC (Bld) 14.1 % 19-41 [facility] Work Phone: Blood monocytes/100 leukocyt eson 08-26-2022 Monocytes/100 WBC (Bld) 7.1 % 0-10 [facility] Work Phone: Blood platelet mean volumeon 08-26-2022 Platelet mean volume (Bld) [Entitic vol] 9.5 fL 6.2-12.0 [facility] Work Phone: Determination of erythrocyte mean corpuscular volume (MCV)on 08-26-2022 MCV (RBC) [Entitic vol] 84.4 fL 81-99 [facility] Work Phone: Hematocrit Auto (Bld) [Volum e fraction]on 08-26-2022 Hematocrit (Bld) [Volume fraction] 29.3 % 37-47 [facility] Work Phone: Laboratory - Chemistry and C hemistry - challengeon 08-26-2022 ALP [Catalytic activity/Vol] 69 U/L 45-117 [facility] Work Phone: ALT [Catalytic activity/Vol] 24 U/L 13-56 [facility] Work Phone: CO2 [Moles/Vol] 26.0 mmol/L 21.0-32.0 [facility] Work Phone: Globulin (S) [Mass/Vol] 3.4 g/dL 2.2-4.2 [facility] Work Phone: Urea nitrogen/Creatinine [Mass ratio] 8.8 mg/mg 10-20 [facility] Work Phone: Laboratory - Hematology and Cell countson 08-26-2022 Erythrocyte distribution width (RBC) [Entitic vol] 40.0 fL 35.1-43.9 [facility] Work Phone: Erythrocyte distribution width (RBC) [Ratio] 13.0 % 11.6-14.6 [facility] Work Phone: Immature granulocytes/100 WBC (Bld) 0.400 % 0.0-0.9 [facility] Work Phone: Comment on above: IG% - Immature Granu locytes (promyelocytes, myelocytes and metamyelocytes) > 1% indicates that a LEFT SHIFT is Present. MCH (RBC) [Entitic mass] 26.8 pg 27.0-32.0 [facility] Work Phone: Nucleated RBC/100 WBC (Bld) [Ratio] 0 % 0-5 [facility] Work Phone: [phone] MCHC Auto (RBC) [Mass/Vol]on 08-26-2022 MCHC (RBC) [Mass/Vol] 31.7 g/dL 32-36 [facility] Work Phone: No Panel Informationon 08-26 Estimated Creatinine Clearance Calc 102.63 ml/min [facility] Work Phone: [phone] Estimated GFR (MDRD) Amer 159 mL/min >60 [facility] Work Phone: [phone] Comment on above: GFR Calc Estimated GFR (MDRD) Non-Af Amer 131 mL/min >60 [facility] Work Phone: [phone] Comment on above: Non- GFR Calc Platelets bldon 08-26-2022 Platelets (Bld) [#/Vol] 297 10*3/uL 150-450 [facility] Work Phone: [phone] Serum or plasma albumin nikole urement (mass/volume)on 08-26-2022 Albumin [Mass/Vol] 2.4 g/dL 3.2-5.0 [facility] Work Phone: [phone] Serum or plasma albumin/glob ulin mass ratioon 08-26-2022 Albumin/Globulin [Mass ratio] 0.7 {ratio} 0.9-2.4 [facility] Work Phone: [phone] Serum or plasma calcium nikole urement (mass/volume)on 08-26-2022 Calcium [Mass/Vol] 8.4 mg/dL 8.5-10.1 [facility] Work Phone: [phone] Serum or plasma creatinine m easurement (mass/volume)on 08-26-2022 Creatinine [Mass/Vol] 0.56 mg/dL 0.55-1.02 [facility] Work Phone: Comment on above: The validity of the calculated GFR & GFRAA in patients over 70 years has not been determined. Clinical correlation is essential. Serum or plasma urea nitroge n measurement (mass/volume)on 08-26-2022 Urea nitrogen [Mass/Vol] 5 mg/dL 7-18 [facility] Work Phone: Thin prep Papanicolaou smear with manual screeningon 08-26-2022 Thin prep Papanicolaou smear with manual screening 15 U/L 15-37 [facility] Work Phone: Thin prep Papanicolaou smear with manual screening 6 5-15 [facility] Work Phone: Absolute lymphocyte counton 08-23-2022 Lymphocytes Auto (Unsp spec) [#/Vol] 1.66 10*3/uL 0.83-4.51 [facility] Work Phone: Lymphocytes Auto (Unsp spec) [#/Vol] 2.07 10*3/uL 0.83-4.51 [facility] Work Phone: Basophil percentageon 2021 Basophil percentage 0-5 SEEN /hpf 0-5 [facility] Work Phone: Basophils/100 WBC (Bld) 0.2 % 0-1 [facility] Work Phone: Chloride [Moles/Vol] 105 mmol/L 98-107 [facility] Work Phone: Eosinophils/100 WBC (Bld) 0.4 % 0-5 [facility] Work Phone: Glucose [Mass/Vol] 96 mg/dL 74-106 [facility] Work Phone: Neutrophils (Bld) [#/Vol] 18.0 10*3/uL 2.0-7.7 [facility] Work Phone: Neutrophils/100 WBC (Bld) 85.4 % 47-70 [facility] Work Phone: Potassium [Moles/Vol] 3.8 mmol/L 3.5-5.1 [facility] Work Phone: Sodium [Moles/Vol] 137 mmol/L 136-145 [facility] Work Phone: WBC (Bld) [#/Vol] 21.1 10*3/uL 4.4-11.0 [facility]: Basophils/100 WBC (Bld) 0.2 % 0-1 [facility] Work Phone: Eosinophils/100 WBC (Bld) 0.5 % 0-5 [facility] Work Phone: Neutrophils (Bld) [#/Vol] 17.0 10*3/uL 2.0-7.7 [facility] Work Phone: Neutrophils/100 WBC (Bld) 82.6 % 47-70 [facility] Work Phone: WBC (Bld) [#/Vol] 20.6 10*3/uL 4.4-11.0 [facility] Work Phone: Bilirubin Test strip Ql (U)o n 08-23-2022 Bilirubin Ql (U) Negative Negative [facility] Work Phone: Blood erythrocytes count (nu mber/volume)on 08-23-2022 RBC (Bld) [#/Vol] 4.58 10*6/uL 4.2-5.4 [facility] Work Phone: RBC (Bld) [#/Vol] 4.76 10*6/uL 4.2-5.4 [facility] Work Phone: Blood hemoglobin measurement (mass/volume)on 08-23-2022 Hemoglobin (Bld) [Mass/Vol] 12.4 g/dL 12.0-15.0 [facility] Work Phone: Hemoglobin (Bld) [Mass/Vol] 12.5 g/dL 12.0-15.0 [facility] Work Phone: Blood lymphocytes/100 leukoc yteson 08-23-2022 Lymphocytes/100 WBC (Bld) 7.9 % 19-41 [facility] Work [phone] Lymphocytes/100 WBC (Bld) 10.1 % 19-41 [facility] Work Phone: Blood monocytes/100 leukocyt eson 08-23-2022 Monocytes/100 WBC (Bld) 5.7 % 0-10 [facility] Work Phone: Monocytes/100 WBC (Bld) 6.1 % 0-10 [facility] Work Phone: Blood platelet mean volumeon 08-23-2022 Platelet mean volume (Bld) [Entitic vol] 9.2 fL 6.2-12.0 [facility] Work Phone: Platelet mean volume (Bld) [Entitic vol] 9.2 fL 6.2-12.0 [facility] Work Phone: Determination of erythrocyte mean corpuscular volume (MCV)on 08-23-2022 MCV (RBC) [Entitic vol] 83.4 fL 81-99 [facility] Work Phone: MCV (RBC) [Entitic vol] 83.6 fL 81-99 [facility] Work Phone: Hematocrit Auto (Bld) [Volum e fraction]on 08-23-2022 Hematocrit (Bld) [Volume fraction] 38.2 % 37-47 [facility] Work Phone: Hematocrit (Bld) [Volume fraction] 39.8 % 37-47 [facility] Work Phone: Ketones Test strip Ql (U)on 08-23-2022 Ketones Ql (U) 5 mg/dl Negative [facility] Work Phone: Laboratory - Chemistry and C hemistry - challengeon 08-23-2022 CO2 [Moles/Vol] 26.0 mmol/L 21.0-32.0 [facility] Work Phone: Urea nitrogen/Creatinine [Mass ratio] 13.4 mg/mg 10-20 [facility] Work Phone: Laboratory - Hematology and Cell countson 08-23-2022 Erythrocyte distribution width (RBC) [Entitic vol] 39.3 fL 35.1-43.9 [facility] Work Phone: [phone] Erythrocyte distribution width (RBC) [Ratio] 12.9 % 11.6-14.6 [facility] Work Phone: [phone] Immature granulocytes/100 WBC (Bld) 0.400 % 0.0-0.9 [facility] Work Phone: [phone] Comment on above: IG% - Immature Granu locytes (promyelocytes, myelocytes and metamyelocytes) > 1% indicates that a LEFT SHIFT is Present. MCH (RBC) [Entitic mass] 27.1 pg 27.0-32.0 [facility] Work Phone: [phone] Nucleated RBC/100 WBC (Bld) [Ratio] 0 % 0-5 [facility] Work Phone: [phone] Erythrocyte distribution width (RBC) [Entitic vol] 39.7 fL 35.1-43.9 [facility] Work Phone: [phone] Erythrocyte distribution width (RBC) [Ratio] 12.9 % 11.6-14.6 [facility] Work Phone: [phone] Immature granulocytes/100 WBC (Bld) 0.500 % 0.0-0.9 [facility] Work Phone: [phone] Comment on above: IG% - Immature Granu locytes (promyelocytes, myelocytes and metamyelocytes) > 1% indicates that a LEFT SHIFT is Present. MCH (RBC) [Entitic mass] 26.3 pg 27.0-32.0 [facility] Work Phone: Nucleated RBC/100 WBC (Bld) [Ratio] 0 % 0-5 [facility] Work Phone: MCHC Auto (RBC) [Mass/Vol]on 08-23-2022 MCHC (RBC) [Mass/Vol] 32.5 g/dL [facility] Work Phone: [phone] MCHC (RBC) [Mass/Vol] 31.4 g/dL [facility] Work Phone: [phone] Mucus LM Ql (Urine sed)on Mucus Ql (Urine sed) 0 SEEN /hpf [facility] Work Phone: [phone] Nitrite Test strip Ql (U)on 08-23-2022 Nitrite Ql (U) Negative Negative [facility] Work Phone: [phone] Panel Informationon 08-23 Estimated Creatinine Clearance Calc 85.78 ml/min [facility] Work Phone: Estimated GFR (MDRD) Amer 129 mL/min >60 [facility] Work Phone: Comment on above: GFR Calc Estimated GFR (MDRD) Non-Af Amer 107 mL/min >60 [facility] Work Phone: [phone] Comment on above: Non- GFR Calc Platelets bldon 08-23-2022 Platelets (Bld) [#/Vol] 363 10*3/uL 150-450 [facility] Work Phone: [phone] Platelets (Bld) [#/Vol] 394 10*3/uL 150-450 [facility] Work Phone: Protein Test strip Ql (U)on 08-23-2022 Protein Ql (U) 30 mg/dl Negative [facility] Work Phone: [phone] Serum or plasma calcium nikole urement (mass/volume)on 08-23-2022 Calcium [Mass/Vol] 9.4 mg/dL 8.5-10.1 [facility] Work Phone: [phone] Serum or plasma creatinine m easurement (mass/volume)on 08-23-2022 Creatinine [Mass/Vol] 0.67 mg/dL 0.55-1.02 [facility] Work Phone: [phone] Comment on above: The validity of the calculated GFR & GFRAA in patients over 70 years has not been determined. Clinical correlation is essential. Serum or plasma urea nitroge n measurement (mass/volume)on 08-23-2022 Urea nitrogen [Mass/Vol] 9 mg/dL 7-18 [facility] Work Phone: Squamous epithelial cells de tection in urine sediment by light microscopyon 08-23-2022 Epithelial cells.squamous LM Ql (Urine sed) 0-5 SEEN /hpf 5-10 [facility] Work Phone: Thin prep Papanicolaou smear with manual screeningon 08-23-2022 Thin prep Papanicolaou smear with manual screening 6 5-15 [facility] Work Phone: Urine blood detectionon 08-05 RBC Ql (U) 50 /ul Negative [facility] Work Phone: [phone] RBC Ql (U) 0-5 SEEN /hpf 0-5 [facility] Work Phone: Urine clarityon 08-23-2022 Clarity (U) Clear Clear [facility] Work Phone: Urine color determinationon 08-23-2022 Color (U) Yellow Yellow [facility] Work Phone: Urine glucose detectionon Glucose Ql (U) Normal mg/dl Normal [facility] Work Phone: [phone] Urine leukocyte esterase det ection by dipstickon 08-23-2022 Leukocyte esterase Test strip Ql (U) 25 /ul Negative [facility] Work Phone: Urine pHon 08-23-2022 pH (U) 6.5 [pH] 5.0 - 8.0 [facility] Work Phone: Urine sediment bacteria coun t by microscopy (number/high power field)on 08-23-2022 Bacteria LM.HPF (Urine sed) [#/Area] 1 /[HPF] None Seen [facility] Work Phone: Urine specific gravity measu rementon 08-23-2022 Specific gravity (U) [Rel density] 1.005 1.002-1.030 [facility] Work Phone: Urobilinogen Auto test strip Ql (U)on 08-23-2022 Urobilinogen Ql (U) Normal mg/dl Normal [facility] Work Phone: Absolute lymphocyte counton 08-13-2022 Lymphocytes Auto (Unsp spec) [#/Vol] 1.17 10*3/uL 0.83-4.51 [facility] Work Phone: Basophil percentageon 2021 Basophils/100 WBC (Bld) 0.1 % 0-1 [facility] Work Phone: Bilirubin [Mass/Vol] 1.30 mg/dL 0.20-1.00 [facility] Work Phone: Comment on above: For patients on eltr ombopag therapy, use of Dimension [place] TBIL is not recommended. Chloride [Moles/Vol] 108 mmol/L 98-107 [facility] Work Phone: Eosinophils/100 WBC (Bld) 0.5 % 0-5 [facility] Work Phone: Glucose [Mass/Vol] 106 mg/dL 74-106 [facility] Work Phone: Comment on above: Fasting Glucose resu lt from 100 to 125 mg/dL suggests IMPAIRED HOMEOSTASIS per A.D.A. criteria. Neutrophils (Bld) [#/Vol] 9.0 10*3/uL 2.0-7.7 [facility] Work Phone: Neutrophils/100 WBC (Bld) 81.3 % 47-70 [facility] Work Phone: Potassium [Moles/Vol] 3.5 mmol/L 3.5-5.1 [facility] Work Phone: Protein [Mass/Vol] 6.3 g/dL 6.4-8.2 [facility] Work Phone: Sodium [Moles/Vol] 140 mmol/L 136-145 [facility] Work Phone: WBC (Bld) [#/Vol] 11.1 10*3/uL 4.4-11.0 [facility] Work Phone: Blood erythrocytes count (nu mber/volume)on 08-13-2022 RBC (Bld) [#/Vol] 4.27 10*6/uL 4.2-5.4 [facility] Work Phone: Blood hemoglobin measurement (mass/volume)on 08-13-2022 Hemoglobin (Bld) [Mass/Vol] 11.1 g/dL 12.0-15.0 [facility] Work Phone: [phone] Blood lymphocytes/100 leukoc yteson 08-13-2022 Lymphocytes/100 WBC (Bld) 10.6 % 19-41 [facility] Work Phone: [phone] Blood monocytes/100 leukocyt eson 08-13-2022 Monocytes/100 WBC (Bld) 7.0 % 0-10 [facility] Work Phone: [phone] Blood platelet mean volumeon 08-13-2022 Platelet mean volume (Bld) [Entitic vol] 9.7 fL 6.2-12.0 [facility] Work Phone: [phone] Determination of erythrocyte mean corpuscular volume (MCV)on 08-13-2022 MCV (RBC) [Entitic vol] 84.3 fL 81-99 [facility] Work Phone: Hematocrit Auto (Bld) [Volum e fraction]on 08-13-2022 Hematocrit (Bld) [Volume fraction] 36.0 % 37-47 [facility] Work Phone: [phone] Laboratory - Chemistry and C hemistry - challengeon 08-13-2022 ALP [Catalytic activity/Vol] 51 U/L 45-117 [facility] Work Phone: [phone] ALT [Catalytic activity/Vol] 29 U/L 13-56 [facility] Work Phone: [phone] CO2 [Moles/Vol] 28.0 mmol/L 21.0-32.0 [facility] Work Phone: [phone] Globulin (S) [Mass/Vol] 3.4 g/dL 2.2-4.2 [facility] Work Phone: [phone] Lipase [Catalytic activity/Vol] 52 U/L 73-393 [facility] Work Phone: [phone] Urea nitrogen/Creatinine [Mass ratio] 10.4 mg/mg 10-20 [facility] Work Phone: [phone] Laboratory - Hematology and Cell countson 08-13-2022 Erythrocyte distribution width (RBC) [Entitic vol] 40.9 fL 35.1-43.9 [facility] Work Phone: [phone] Erythrocyte distribution width (RBC) [Ratio] 13.2 % 11.6-14.6 [facility] Work Phone: [phone] Immature granulocytes/100 WBC (Bld) 0.500 % 0.0-0.9 [facility] Work Phone: [phone] Comment on above: IG% - Immature Granu locytes (promyelocytes, myelocytes and metamyelocytes) > 1% indicates that a LEFT SHIFT is Present. MCH (RBC) [Entitic mass] 26.0 pg 27.0-32.0 [facility] Work Phone: [phone] Nucleated RBC/100 WBC (Bld) [Ratio] 0 % 0-5 [facility] Work Phone: [phone] MCHC Auto (RBC) [Mass/Vol]on 08-13-2022 MCHC (RBC) [Mass/Vol] 30.8 g/dL 32-36 [facility]: [phone] No Panel Informationon 08-13 Estimated Creatinine Clearance Calc 99.10 ml/min [facility] Work Phone: [phone] Estimated GFR (MDRD) Amer 155 mL/min >60 [facility] Work Phone: [phone] Comment on above: GFR Calc Estimated GFR (MDRD) Non-Af Amer 128 mL/min >60 [facility] Work Phone: [phone] Comment on above: Non- GFR Calc Platelets bldon 08-13-2022 Platelets (Bld) [#/Vol] 228 10*3/uL 150-450 [facility] Work Phone: [phone] Serum or plasma albumin nikole urement (mass/volume)on 08-13-2022 Albumin [Mass/Vol] 2.9 g/dL 3.2-5.0 [facility] Work Phone: [phone] Serum or plasma albumin/glob ulin mass ratioon 08-13-2022 Albumin/Globulin [Mass ratio] 0.9 {ratio} 0.9-2.4 [facility] Work Phone: [phone] Serum or plasma calcium nikole urement (mass/volume)on 08-13-2022 Calcium [Mass/Vol] 8.6 mg/dL 8.5-10.1 [facility] Work Phone: [phone] Serum or plasma creatinine m easurement (mass/volume)on 08-13-2022 Creatinine [Mass/Vol] 0.58 mg/dL 0.55-1.02 [facility] Work Phone: [phone] Comment on above: The validity of the calculated GFR & GFRAA in patients over 70 years has not been determined. Clinical correlation is essential. Serum or plasma urea nitroge n measurement (mass/volume)on 08-13-2022 Urea nitrogen [Mass/Vol] 6 mg/dL 7-18 [facility] Work Phone: [phone] Thin prep Papanicolaou smear with manual screeningon 08-13-2022 Thin prep Papanicolaou smear with manual screening 14 U/L 15-37 [facility] Work Phone: [phone] Thin prep Papanicolaou smear with manual screening 4 5-15 [facility] Work Phone: [phone] Absolute lymphocyte counton 08-12-2022 Lymphocytes Auto (Unsp spec) [#/Vol] 1.33 10*3/uL 0.83-4.51 [facility] Work Phone: [phone] Basophil percentageon 2021 Basophils/100 WBC (Bld) 0.1 % 0-1 [facility] Work Phone: [phone] Bilirubin [Mass/Vol] 0.80 mg/dL 0.20-1.00 [facility] Work Phone: Comment on above: For patients on eltr ombopag therapy, use of Dimension [place] TBIL is not recommended. Chloride [Moles/Vol] 110 mmol/L 98-107 [facility] Work Phone: Eosinophils/100 WBC (Bld) 0.4 % 0-5 [facility] Work Phone: Glucose [Mass/Vol] 105 mg/dL 74-106 [facility] Work Phone: Comment on above: Fasting Glucose resu lt from 100 to 125 mg/dL suggests IMPAIRED HOMEOSTASIS per A.D.A. criteria. Neutrophils (Bld) [#/Vol] 6.4 10*3/uL 2.0-7.7 [facility] Work Phone: Neutrophils/100 WBC (Bld) 76.5 % 47-70 [facility] Work Phone: Potassium [Moles/Vol] 3.7 mmol/L 3.5-5.1 [facility] Work Phone: Protein [Mass/Vol] 5.5 g/dL 6.4-8.2 [facility] Work Phone: Sodium [Moles/Vol] 140 mmol/L 136-145 [facility] Work Phone: WBC (Bld) [#/Vol] 8.4 10*3/uL 4.4-11.0 [facility] Work Phone: Blood erythrocytes count (nu mber/volume)on 08-12-2022 RBC (Bld) [#/Vol] 4.04 10*6/uL 4.2-5.4 [facility] Work Phone: Blood hemoglobin measurement (mass/volume)on 08-12-2022 Hemoglobin (Bld) [Mass/Vol] 11.1 g/dL 12.0-15.0 [facility] [facility]: Blood lymphocytes/100 leukoc yteson 08-12-2022 Lymphocytes/100 WBC (Bld) 15.8 % 19-41 [facility] Work Phone: Blood monocytes/100 leukocyt eson 08-12-2022 Monocytes/100 WBC (Bld) 7.0 % 0-10 [facility] Work Phone: Blood platelet mean volumeon 08-12-2022 Platelet mean volume (Bld) [Entitic vol] 9.3 fL 6.2-12.0 [facility] Work Phone: Determination of erythrocyte mean corpuscular volume (MCV)on 08-12-2022 MCV (RBC) [Entitic vol] 86.1 fL 81-99 [facility] Work Phone: Hematocrit Auto (Bld) [Volum e fraction]on 08-12-2022 Hematocrit (Bld) [Volume fraction] 34.8 % 37-47 [facility] Work Phone: Laboratory - Chemistry and C hemistry - challengeon 08-12-2022 ALP [Catalytic activity/Vol] 39 U/L 45-117 [facility] Work Phone: ALT [Catalytic activity/Vol] 35 U/L 13-56 [facility] Work Phone: CO2 [Moles/Vol] 26.0 mmol/L 21.0-32.0 [facility] Work Phone: Globulin (S) [Mass/Vol] 2.8 g/dL 2.2-4.2 [facility] Work Phone: Urea nitrogen/Creatinine [Mass ratio] 23.3 mg/mg 10-20 [facility] Work Phone: Laboratory - Hematology and Cell countson 08-12-2022 Erythrocyte distribution width (RBC) [Entitic vol] 41.9 fL 35.1-43.9 [facility] Work Phone: [phone] Erythrocyte distribution width (RBC) [Ratio] 13.3 % 11.6-14.6 [facility] Work Phone: Immature granulocytes/100 WBC (Bld) 0.200 % 0.0-0.9 [facility] Work Phone: Comment on above: IG% - Immature Granu locytes (promyelocytes, myelocytes and metamyelocytes) > 1% indicates that a LEFT SHIFT is Present. MCH (RBC) [Entitic mass] 27.5 pg 27.0-32.0 [facility] Work Phone: [phone] Nucleated RBC/100 WBC (Bld) [Ratio] 0 % 0-5 [facility] Work Phone: [phone] MCHC Auto (RBC) [Mass/Vol]on 08-12-2022 MCHC (RBC) [Mass/Vol] 31.9 g/dL 32-36 [facility] Work Phone: No Panel Informationon 08-12 Estimated Creatinine Clearance Calc 128.42 ml/min [facility] Work Phone: [phone] Estimated GFR (MDRD) Amer 148 mL/min >60 [facility] Work Phone: [phone] Comment on above: GFR Calc Estimated GFR (MDRD) Non-Af Amer 122 mL/min >60 [facility] Work Phone: [phone] Comment on above: Non- GFR Calc Platelets bldon 08-12-2022 Platelets (Bld) [#/Vol] 194 10*3/uL 150-450 [facility] Work Phone: [phone] Serum or plasma albumin nikole urement (mass/volume)on 08-12-2022 Albumin [Mass/Vol] 2.7 g/dL 3.2-5.0 [facility] Work Phone: [phone] Serum or plasma albumin/glob ulin mass ratioon 08-12-2022 Albumin/Globulin [Mass ratio] 1.0 {ratio} 0.9-2.4 [facility] Work Phone: [phone] Serum or plasma calcium nikole urement (mass/volume)on 08-12-2022 Calcium [Mass/Vol] 8.0 mg/dL 8.5-10.1 [facility] Work Phone: Serum or plasma creatinine m easurement (mass/volume)on 08-12-2022 Creatinine [Mass/Vol] 0.60 mg/dL 0.55-1.02 [facility] Work Phone: [phone] Comment on above: The validity of the calculated GFR & GFRAA in patients over 70 years has not been determined. Clinical correlation is essential. Serum or plasma urea nitroge n measurement (mass/volume)on 08-12-2022 Urea nitrogen [Mass/Vol] 14 mg/dL 7-18 [facility] Work Phone: [phone] Thin prep Papanicolaou smear with manual screeningon 08-12-2022 Thin prep Papanicolaou smear with manual screening 25 U/L 15-37 [facility] Work Phone: [phone] Thin prep Papanicolaou smear with manual screening 4 5-15 [facility] Work Phone: Basophil percentageon 2021 Bilirubin [Mass/Vol] 1.10 mg/dL 0.20-1.00 [facility] Work Phone: [phone] Comment on above: For patients on eltr ombopag therapy, use of Dimension [place] TBIL is not recommended. Chloride [Moles/Vol] 111 mmol/L 98-107 [facility] Work Phone: [phone] Glucose [Mass/Vol] 130 mg/dL 74-106 [facility] Work Phone: Comment on above: Fasting Glucose resu lt greater than or equal to 126 mg/dL suggests DIABETES MELLITUS per A.D.A. criteria. Potassium [Moles/Vol] 3.9 mmol/L 3.5-5.1 [facility] Work Phone: [phone] Protein [Mass/Vol] 6.1 g/dL 6.4-8.2 [facility] Work Phone: [phone] Sodium [Moles/Vol] 140 mmol/L 136-145 [facility] Work Phone: [phone] WBC (Bld) [#/Vol] 17.7 10*3/uL 4.4-11.0 [facility] Work Phone: [phone] Blood erythrocytes count (nu mber/volume)on 08-11-2022 RBC (Bld) [#/Vol] 4.45 10*6/uL 4.2-5.4 [facility] Work Phone: [phone] Blood hemoglobin measurement (mass/volume)on 08-11-2022 Hemoglobin (Bld) [Mass/Vol] 11.5 g/dL 12.0-15.0 [facility] Work Phone: [phone] Blood platelet mean volumeon 08-11-2022 Platelet mean volume (Bld) [Entitic vol] 9.5 fL 6.2-12.0 [facility] Work Phone: [phone] Determination of erythrocyte mean corpuscular volume (MCV)on 08-11-2022 MCV (RBC) [Entitic vol] 84.9 fL 81-99 [facility] Work Phone: [phone] Hematocrit Auto (Bld) [Volum e fraction]on 08-11-2022 Hematocrit (Bld) [Volume fraction] 36.6 % 37-47 [facility] Work Phone: [phone] Laboratory - Chemistry and C hemistry - challengeon 08-11-2022 ALP [Catalytic activity/Vol] 46 U/L 45-117 [facility] Work Phone: [phone] ALT [Catalytic activity/Vol] 17 U/L 13-56 [facility] Work Phone: [phone] CO2 [Moles/Vol] 26.0 mmol/L 21.0-32.0 [facility] Work Phone: [phone] Globulin (S) [Mass/Vol] 3.0 g/dL 2.2-4.2 [facility] Work Phone: [phone] Urea nitrogen/Creatinine [Mass ratio] 13.1 mg/mg 10-20 [facility] Work Phone: [phone] Laboratory - Hematology and Cell countson 08-11-2022 Erythrocyte distribution width (RBC) [Entitic vol] 40.3 fL 35.1-43.9 [facility] Work Phone: Erythrocyte distribution width (RBC) [Ratio] 13.0 % 11.6-14.6 [facility] Work Phone: [phone] MCH (RBC) [Entitic mass] 26.3 pg 27.0-32.0 [facility] Work Phone: [phone] MCHC Auto (RBC) [Mass/Vol]on 08-11-2022 MCHC (RBC) [Mass/Vol] 31.0 g/dL 32-36 [facility] Work Phone: No Panel Informationon 08-11 Estimated Creatinine Clearance Calc 101.39 ml/min [facility] Work Phone: [phone] Estimated GFR (MDRD) Amer 112 mL/min >60 [facility] Work Phone: [phone] Comment on above: GFR Calc Estimated GFR (MDRD) Non-Af Amer 92 mL/min >60 [facility] Work Phone: [phone] Comment on above: Non- GFR Calc Platelets bldon 08-11-2022 Platelets (Bld) [#/Vol] 282 10*3/uL 150-450 [facility] Work Phone: [phone] Serum or plasma albumin nikole urement (mass/volume)on 08-11-2022 Albumin [Mass/Vol] 3.1 g/dL 3.2-5.0 [facility] Work Phone: [phone] Serum or plasma albumin/glob ulin mass ratioon 08-11-2022 Albumin/Globulin [Mass ratio] 1.0 {ratio} 0.9-2.4 [facility] Work Phone: [phone] Serum or plasma calcium nikole urement (mass/volume)on 08-11-2022 Calcium [Mass/Vol] 7.8 mg/dL 8.5-10.1 [facility] Work Phone: [phone] Serum or plasma creatinine m easurement (mass/volume)on 08-11-2022 Creatinine [Mass/Vol] 0.76 mg/dL 0.55-1.02 [facility] Work Phone: [phone] Comment on above: The validity of the calculated GFR & GFRAA in patients over 70 years has not been determined. Clinical correlation is essential. Serum or plasma urea nitroge n measurement (mass/volume)on 08-11-2022 Urea nitrogen [Mass/Vol] 10 mg/dL 7-18 [facility] Work Phone: Thin prep Papanicolaou smear with manual screeningon 08-11-2022 Thin prep Papanicolaou smear with manual screening 11 U/L 15-37 [facility] Work Phone: Thin prep Papanicolaou smear with manual screening 3 5-15 [facility] Work Phone: Glucose Glucometer (BldC) [M ass/Vol]on 08-10-2022 Glucose [Mass/Vol] 82 mg/dL 74-106 [facility] Work Phone: Comment on above: MANAGEMENT OF PATIEN T CARE PER NURSING PROTOCOL Laboratory - Chemistry and C hemistry - challengeon 08-10-2022 HCG ( test) Ql (U) Negative [facility] Work Phone: Comment on above: Very dilute urine sp ecimens, as indicated by a low specificgravity, may not contain membership sales representative levels of hCG. If is still suspected, a first morning urinespecimen should be collected 48 hours later and tested. Laboratory - Chemistry and C hemistry - challengeon 08-03-2022 Magnesium [Mass/Vol] 2.2 mg/dL 1.6-2.6 [facility] Work Phone: Laboratory - Microbiology an d Antimicrobial susceptibilityon 06-01-2022 SARS-CoV-2 (COVID-19) RNA VON+probe Ql (Unsp spec) Not detected [facility] Work Phone: Laboratory - Microbiology an d Antimicrobial susceptibilityon 05-31-2022 SARS-CoV-2 (COVID-19) RNA VON+probe Ql (Unsp spec) Not detected [facility] Work Phone: No Panel Informationon 05-31 POC Nasal Swab Influenza A,B Not detected [facility] Work Phone: POC Nasal Swab RSV Not detected [facility] Work Phone: Absolute lymphocyte counton 05-14-2022 Lymphocytes Auto (Unsp spec) [#/Vol] 2.42 10*3/uL 0.83-4.51 [facility] Work Phone: Absolute reticulocyte counto n 05-14-2022 Reticulocytes (Bld) [#/Vol] 0.00 10*3/uL 0-5 [facility] Work Phone: Basophil percentageon 2021 Basophil percentage 2.7 mg/dL 2.5-4.9 [facility] Work Phone: Bilirubin [Mass/Vol] 1.00 mg/dL 0.20-1.00 [facility] Work Phone: Comment on above: For patients on eltr ombopag therapy, use of Dimension [place] TBIL is not recommended. Chloride [Moles/Vol] 106 mmol/L 98-107 [facility] Work Phone: Cholesterol [Mass/Vol] 189 mg/dL <200 [facility] Work Phone: Comment on above: <200 mg/dL Desirable 200-240 mg/dL Borderline >240 mg/dL High Risk Glucose [Mass/Vol] 93 mg/dL 74-106 [facility] Work Phone: Neutrophils (Bld) [#/Vol] 6.5 10*3/uL 2.0-7.7 [facility] Work Phone: Potassium [Moles/Vol] 4.0 mmol/L 3.5-5.1 [facility] Work Phone: Protein [Mass/Vol] 7.4 g/dL 6.4-8.2 [facility] Work Phone: Sodium [Moles/Vol] 141 mmol/L 136-145 [facility] Work Phone: Triglyceride [Mass/Vol] 70 mg/dL <199 [facility] Work Phone: [phone] Comment on above: The drugs N-Acetylcy steine and Metamizole may falsely depress this assay.Serum Triglycerides Reference Interval Normal <150 mg/dL Borderline high 150 - 199 mg/dL High 200 - 499 mg/dL Very High > or = 500 mg/dL WBC (Bld) [#/Vol] 9.6 10*3/uL 4.4-11.0 [facility] Work Phone: Blood erythrocytes count (nu mber/volume)on 05-14-2022 RBC (Bld) [#/Vol] 5.23 10*6/uL 4.2-5.4 [facility] Work Phone: Blood hemoglobin measurement (mass/volume)on 05-14-2022 Hemoglobin (Bld) [Mass/Vol] 14.0 g/dL 12.0-15.0 [facility] Work Phone: Blood platelet mean volumeon 05-14-2022 Platelet mean volume (Bld) [Entitic vol] 10.0 fL 6.2-12.0 [facility] Work Phone: Determination of erythrocyte mean corpuscular volume (MCV)on 05-14-2022 MCV (RBC) [Entitic vol] 85.5 fL 81-99 [facility] Work Phone: Direct bilirubinon Bilirubin.direct [Mass/Vol] 0.19 mg/dL 0.00-0.30 [facility] Work Phone: Hematocrit Auto (Bld) [Volum e fraction]on 05-14-2022 Hematocrit (Bld) [Volume fraction] 44.7 % 37-47 [facility] Work Phone: Laboratory - Chemistry and C hemistry - challengeon 05-14-2022 ALP [Catalytic activity/Vol] 52 U/L 45-117 [facility] Work Phone: ALT [Catalytic activity/Vol] 22 U/L 13-56 [facility] Work Phone: [phone] Cholesterol.total/Haley sterol in HDL [Mass ratio] 3.20 {ratio} [facility] Work Phone: CO2 [Moles/Vol] 30.0 mmol/L 21.0-32.0 [facility] Work Phone: [phone] Globulin (S) [Mass/Vol] 3.6 g/dL 2.2-4.2 [facility] Work Phone: [phone] Urea nitrogen/Creatinine [Mass ratio] 13.9 mg/mg 10-20 [facility] Work Phone: [phone] Laboratory - Hematology and Cell countson 05-14-2022 Erythrocyte distribution width (RBC) [Entitic vol] 39.9 fL 35.1-43.9 [facility] Work Phone: [phone] Erythrocyte distribution width (RBC) [Ratio] 12.8 % 11.6-14.6 [facility] Work Phone: [phone] MCH (RBC) [Entitic mass] 26.8 pg 27.0-32.0 [facility] Work Phone: [phone] Nucleated RBC/100 WBC (Bld) [Ratio] 0 % 0-5 [facility] Work Phone: MCHC Auto (RBC) [Mass/Vol]on 05-14-2022 MCHC (RBC) [Mass/Vol] 31.3 g/dL 32-36 [facility] Work Phone: No Panel Informationon 05-14 Estimated GFR (MDRD) Amer 121 mL/min >60 [facility] Work Phone: [phone] Comment on above: GFR Calc Estimated GFR (MDRD) Non-Af Amer 100 mL/min >60 [facility] Work Phone: [phone] Comment on above: Non- GFR Calc Platelets bldon 05-14-2022 Platelets (Bld) [#/Vol] 293 10*3/uL 150-450 [facility] Work Phone: Segmented neutrophils/100 WB C Auto (Bld)on 05-14-2022 Segmented neutrophils/100 WBC (Bld) 67.5 % 47-70 [facility] Work Phone: Serum or plasma albumin nikole urement (mass/volume)on 05-14-2022 Albumin [Mass/Vol] 3.8 g/dL 3.2-5.0 [facility] Work Phone: Serum or plasma albumin/glob ulin mass ratioon 05-14-2022 Albumin/Globulin [Mass ratio] 1.1 {ratio} 0.9-2.4 [facility] Work Phone: Serum or plasma calcium nikole urement (mass/volume)on 05-14-2022 Calcium [Mass/Vol] 8.9 mg/dL 8.5-10.1 [facility] Work Phone: Serum or plasma cholesterol in HDL measurement (mass/volume)on 05-14-2022 Cholesterol in HDL [Mass/Vol] 59 mg/dL >40 [facility] Work Phone: Comment on above: The drugs N-Acetylcy steine and Metamizole may falsely depress this assay. Reference Range HDL <40 mg/dL Low HDL Cholesterol HDL >or= 60 mg/dL High HDL Cholesterol Serum or plasma cholesterol in VLDL measurement (mass/volume)on 05-14-2022 Cholesterol in VLDL [Mass/Vol] 14 mg/dL 5-40 [facility] Work Phone: Serum or plasma creatinine m easurement (mass/volume)on 05-14-2022 Creatinine [Mass/Vol] 0.72 mg/dL 0.55-1.02 [facility] Work Phone: Comment on above: The validity of the calculated GFR & GFRAA in patients over 70 years has not been determined. Clinical correlation is essential. Serum or plasma low density lipoprotein (LDL) cholesterol measurement (mass/volume)on 05-14-2022 Cholesterol in LDL [Mass/Vol] 116 mg/dL 0-130 [facility] Work Phone: Serum or plasma urea nitroge n measurement (mass/volume)on 05-14-2022 Urea nitrogen [Mass/Vol] 10 mg/dL 7-18 [facility] Work Phone: Serum or plasma uric acid me asurement (mass/volume)on 05-14-2022 Urate [Mass/Vol] 4.3 mg/dL 2.6-6.0 [facility] Work Phone: Comment on above: The drugs N-Acetylcy steine and Metamizole may falsely depress this assay. Thin prep Papanicolaou smear with manual screeningon 05-14-2022 Thin prep Papanicolaou smear with manual screening 14 U/L 15-37 [facility] Work Phone: Thin prep Papanicolaou smear with manual screening 5 5-15 [facility] Work Phone: Thin prep Papanicolaou smear with manual screening 149 U/L 84-246 [facility] Work Phone: Absolute lymphocyte counton 01-29-2022 Lymphocytes Auto (Unsp spec) [#/Vol] 2.51 10*3/uL 0.83-4.51 [facility] Work Phone: Basophil percentageon 2021 Basophils/100 WBC (Bld) 0.2 % 0-1 [facility] Work Phone: Eosinophils/100 WBC (Bld) 0.5 % 0-5 [facility] Work Phone: Neutrophils (Bld) [#/Vol] 8.9 10*3/uL 2.0-7.7 [facility] Work Phone: Neutrophils/100 WBC (Bld) 73.1 % 47-70 [facility] Work Phone: WBC (Bld) [#/Vol] 12.1 10*3/uL 4.4-11.0 [facility] Work Phone: Blood erythrocytes count (nu mber/volume)on 01-29-2022 RBC (Bld) [#/Vol] 5.04 10*6/uL 4.2-5.4 [facility] Work Phone: Blood hemoglobin measurement (mass/volume)on 01-29-2022 Hemoglobin (Bld) [Mass/Vol] 13.4 g/dL 12.0-15.0 [facility] Work Phone: Blood lymphocytes/100 leukoc yteson 01-29-2022 Lymphocytes/100 WBC (Bld) 20.7 % 19-41 [facility] Work Phone: Blood monocytes/100 leukocyt eson 01-29-2022 Monocytes/100 WBC (Bld) 5.2 % 0-10 [facility] Work Phone: [phone] Blood platelet mean volumeon 01-29-2022 Platelet mean volume (Bld) [Entitic vol] 9.7 fL 6.2-12.0 [facility] Work Phone: Determination of erythrocyte mean corpuscular volume (MCV)on 01-29-2022 MCV (RBC) [Entitic vol] 83.7 fL 81-99 [facility] Work Phone: [phone] Hematocrit Auto (Bld) [Volum e fraction]on 01-29-2022 Hematocrit (Bld) [Volume fraction] 42.2 % 37-47 [facility] Work Phone: Laboratory - Hematology and Cell countson 01-29-2022 Erythrocyte distribution width (RBC) [Entitic vol] 39.6 fL 35.1-43.9 [facility] Work Phone: [phone] Erythrocyte distribution width (RBC) [Ratio] 13.0 % 11.6-14.6 [facility] Work Phone: [phone] Immature granulocytes/100 WBC (Bld) 0.300 % 0.0-0.9 [facility] Work Phone: [phone] Comment on above: IG% - Immature Granu locytes (promyelocytes, myelocytes and metamyelocytes) > 1% indicates that a LEFT SHIFT is Present. MCH (RBC) [Entitic mass] 26.6 pg 27.0-32.0 [facility] Work Phone: Nucleated RBC/100 WBC (Bld) [Ratio] 0 % 0-5 [facility] Work Phone: [phone] MCHC Auto (RBC) [Mass/Vol]on 05-27-2022 MCHC (RBC) [Mass/Vol] 31.8 g/dL 32-36 [facility] Work Phone: Platelets bldon 01-29-2022 Platelets (Bld) [#/Vol] 303 10*3/uL 150-450 [facility] Work Phone: Lab Report: HSV 1 AND 2 IgGo n 07-02-2017 HSV 2 IgG 2.21 index High 0.00-0.90 [facility] Office Visit: new annualon 1 Documentation of current medications (procedure) Done Invalid Interpretation Code [facility] Fall risk assessment No Invalid Interpretation Code [facility] Tobacco smoking status NHIS Never Invalid Interpretation Code [facility] Tobacco use CPHS Never smoker Invalid Interpretation Code [facility] Lab Report: (P) Urinalysis, Completeon 05-06-2017 Bilirubin Ql (U) 1 [facility] NITRITE UR Negative Invalid Interpretation Code Negative [facility] OCCULT BLOOD-UR 25 High [facility] specific gravity, urine 1.010 Invalid Interpretation Code 1.002-1.030 [facility] Urine, clarity Clear Invalid Interpretation Code Clear [facility] Urine, color Yellow Invalid Interpretation Code Yellow [facility] Urine, glucose presence Normal mg/dl Invalid Interpretation Code Normal [facility] Urine, ketones presence Negative Invalid Interpretation Code Negative [facility] Urine, leukocyte esterase presence 25 High Negative [facility] Urine, pH 6.5 [pH] Invalid Interpretation Code 5.0 - 8.0 [facility] Urine, protein 30 mg/dL [facility] UROBILI 4 mg/dL High Normal [facility] Lab Report: Urinalysis, Comp leteon 05-06-2017 Urine, bacteria in sediment 1 /[HPF] Invalid Interpretation Code None Seen [facility] Urine, epithelial cells in sediment 0-5 SEEN Invalid Interpretation Code 5-10 [facility] Urine, erythrocytes in sediment by volume 0-5 SEEN Invalid Interpretation Code 0-5 [facility] Urine, mucus presence in sediment 1+ Invalid Interpretation Code [facility] WBC (Leukocytes) 0-5 SEEN Invalid Interpretation Code 0-5 [facility] Office Visit: UC: migraine/f everon 05-06-2017 blood in urine (hemoglobin) by dipstick non-hemolyzed moderate Invalid Interpretation Code [facility] Glucose mass conc 80 mg/dL Invalid Interpretation Code [facility] HCG.beta subunit ( test) Ql (U) Negative Invalid Interpretation Code [facility] heterophile antibody screen (Monospot) Negative Invalid Interpretation Code [facility] Urine, appearance cloudy Invalid Interpretation Code [facility] Urine, glucose presence Negative Invalid Interpretation Code [facility] Urine, nitrite presence Negative Invalid Interpretation Code [facility] Urine, urobilinogen presence 1 Invalid Interpretation Code [facility] Lab Report: Lyme Screen W/Re flex WBon 03-19-2016 LYME SCN INTERP REF LAB Invalid Interpretation Code [facility] Lab Report: (P) Lyme Screen W/Reflex WBon 03-14-2016 Borrelia burgdorferi (Lyme Disease,) DNA <0.91 Invalid Interpretation Code 0.00-0.90 [facility] Lab Report: CRPon 03-12-2016 C reactive protein (CRP) mg/L Invalid Interpretation Code 0.0-3.0 [facility] Lab Report: Erythrocyte Sed Rateon 03-12-2016 Erythrocyte sedimentation rate 10 mm/h Invalid Interpretation Code 0-20 [facility] Replaced Document: (P) CBC W /Diff, Automatedon 03-12-2016 Absolute Neut 5.7 X10 3/UL Invalid Interpretation Code 2.0-7.7 [facility] Basophils/100 WBC Auto (Bld) 0.2 % Invalid Interpretation Code 0-1 [facility] Eosinophils/100 leukocytes 1.1 % Invalid Interpretation Code 0-5 [facility] Erythrocyte distribution width Auto Ratio (RBC) 13.0 % Invalid Interpretation Code 11.6-14.6 [facility] Erythrocytes (RBC) 5.24 10*6/uL Invalid Interpretation Code 4.2-5.4 [facility] Hematocrit (HCT) 43.5 % Invalid Interpretation Code 37-47 [facility] Hemoglobin mass conc (Bld) 14.0 g/dL Invalid Interpretation Code 12.0-15.0 [facility] Immature granulocytes/100 WBC (Bld) 0.100 % Invalid Interpretation Code 0.0-0.9 [facility] Lymphocytes 2.18 X10 3/UL Invalid Interpretation Code 0.83-4.51 [facility] Lymphocytes/100 leukocytes 25.7 % Invalid Interpretation Code 19-41 [facility] MCH 26.7 pg Low 27.0-32.0 [facility] MCHC mass conc (RBC) 32.2 G/GL Invalid Interpretation Code 32-36 [facility] MCV 83.0 fL Invalid Interpretation Code 81-99 [facility] Monocytes/100 leukocytes 6.1 % Invalid Interpretation Code 0-10 [facility] Neutrophils/100 WBC Auto (Bld) 66.8 % Invalid Interpretation Code 47-70 [facility] Platelets 253 10*3/mm3 Invalid Interpretation Code 150-450 [facility] PMV by Parul 9.8 fL Invalid Interpretation Code 6.2-12.0 [facility] RDW SD 38.9 fL Invalid Interpretation Code 35.1-43.9 [facility] WBC (Leukocytes) 8.5 10*3/uL Invalid Interpretation Code 4.4-11.0 [facility] Lab Report: Basic Metabolic Profile (BMP)on 11-06-2015 Anion gap 5 mmol/L Invalid Interpretation Code 5-15 [facility] BUN/Creatinine Ratio 15.3 RATIO Invalid Interpretation Code 10-20 [facility] Calcium 9.4 mg/dL Invalid Interpretation Code 8.5-10.1 [facility] Chloride 109 mmol/L High 98-107 [facility] CO2 30.0 mmol/L Invalid Interpretation Code 21.0-32.0 [facility] Creatinine 78.51 mL/min Invalid Interpretation Code [facility] Creatinine 0.78 mg/dL Invalid Interpretation Code 0.55-1.20 [facility] eGFR (non-black) 94 mL/min/{1.73_m2} Invalid Interpretation Code >60 [facility] eGFR (non-black) 114 mL/min/{1.73_m2} Invalid Interpretation Code >60 [facility] Glucose mass conc 105 mg/dL Invalid Interpretation Code 70-110 [facility] Potassium molar conc 4.0 mmol/L Invalid Interpretation Code 3.5-5.1 [facility] Sodium 144 mmol/L Invalid Interpretation Code 136-145 [facility] Urea nitrogen 12 mg/dL Invalid Interpretation Code 7-18 [facility] Lab Report: Lipaseon 016 LIPASE 119 U/L Invalid Interpretation Code 73-393 [facility] Lab Report: Liver Profileon 11-06-2015 Alanine aminotransferase (ALT) 22 U/L Invalid Interpretation Code 12-78 [facility] Albumin 4.1 g/dL Invalid Interpretation Code 3.4-5.0 [facility] Alkaline phosphatase (ALP) 61 U/L Invalid Interpretation Code 50-136 [facility] Aspartate aminotransferase (AST) 16 U/L Invalid Interpretation Code 15-37 [facility] Bilirubin (direct) 0.15 mg/dL Invalid Interpretation Code 0.00-0.30 [facility] Bilirubin (total) 1.00 mg/dL Invalid Interpretation Code 0.20-1.00 [facility] Globulin 3.8 g/dL High 2.3-3.5 [facility] Protein 7.9 g/dL Invalid Interpretation Code 6.4-8.2 [facility] Lab Report: ,Serum, hCG Quali.on 11-06-2015 HCG.beta subunit Qn m[IU]/mL Invalid Interpretation Code =>Qualitativ e [facility] Replaced Document: (P) Pregn adriane,Serum,hCG Quali.on 11-06-2015 HCG.beta subunit ( test) Ql Negative Invalid Interpretation Code 0-9 Nonpreg [facility] Lab Report: CRPon 09-27-2014 C-REACTIVE PROT < 2.90 Invalid Interpretation Code 0.0-3.0 [facility] Lab Report: Comprehensive Me tabolic Profilon 09-27-2014 Albumin/Globulin Ratio 1.1 {ratio} Invalid Interpretation Code 0.9-2.4 [facility] Lab Report: Folates, (Folic Acid)on 09-27-2014 Folate 16.20 ng/mL Invalid Interpretation Code 3.1-17.5 [facility] Lab Report: Thyroid Stim Hor rodolfo (TSH)on 09-27-2014 Thyroid stimulating hormone (TSH) 1.05 u[iU]/mL Invalid Interpretation Code 0.358-3.74 [facility] Lab Report: Vitamin B12on Cobalamins (Vitamin B12) 401 pg/mL Invalid Interpretation Code 079-178 [facility] Replaced Document: (P) CBC W /Diff, Automatedon 09-27-2014 Absolute Neut 7.7 X10 3/UL Invalid Interpretation Code 2.0-7.7 [facility] Office Visit: new annualon 0 09-05-2013 General categories [Interpretation] of Cervical or vaginal smear or scraping by Cyto stain Normal Invalid Interpretation Code [facility] Anaerobic culture Bacteria identified Anaer cx Nom (Unsp spec) No growth in 5 days. [facility] Work Phone: Culture, urine Bacteria identified Cx Nom (U) Culture exhibits no growth. [facility] Work Phone: Gram stain for investigation of transfusion reaction Microscopic observation Gram stain Nom (Unsp spec) [facility] Work Phone: Routine wound culture Bacteria identified Cx Nom (Wound) No growth aerobically. [facility] Work Phone: Thin prep Papanicolaou smear with manual screening Genital Culture Escherichia coli [facility] Work Phone: Vital Signs Date Time Vital Sign Value Performing Clinician Facility 06-07-2025 14:15-0400 Body height 149.86 cm Stephanie Kramer NP-C Work Phone: [facility] 06-07-2025 14:15-0400 Diastolic blood pressure 73 mm[Hg] Stephanie Kramer [employer] Work Phone: [facility] 06-07-2025 14:15-0400 Respiratory rate 16 /min Stephanie Kramer [employer] Work Phone: [facility] 06-07-2025 14:15-0400 Systolic blood pressure 108 mm[Hg] Stephanie Kramer NP-C Work Phone: [facility] 05-22-2025 14:36-0400 Body height 149.86 cm Stephanie Kramer [employer] Work Phone: [facility] 05-22-2025 14:36-0400 Body mass index (BMI) [Ratio] 24.9 kg/m2 Stephanie Kramer [employer] Work Phone: [facility] 05-22-2025 14:36-0400 Body weight 55.93 kg Stephanie Kramer [employer] Work Phone: [facility] 05-22-2025 14:36-0400 Diastolic blood pressure 85 mm[Hg] Stephanie Kramer [employer] Work Phone: [facility] 05-22-2025 14:36-0400 Systolic blood pressure 122 mm[Hg] Stephanie Kramer [employer] Work Phone: [facility] 05-06-2025 15:58-0400 Body temperature 98.6 [degF] Stephanie Kramer [employer] Work Phone: [facility] 05-06-2025 15:58-0400 Diastolic blood pressure 79 mm[Hg] Stephanie Kramer [employer] Work Phone: [facility] 05-06-2025 15:58-0400 Heart rate 66 /min Stephanie Kramer [employer] Work Phone: [facility] 05-06-2025 15:58-0400 Respiratory rate 18 /min Stephanie Kramer [employer] Work Phone: [facility] 05-06-2025 15:58-0400 SaO2% (BldA) [Mass fraction] 100 % Stephanie Kramer [employer] Work Phone: [facility] 05-06-2025 15:58-0400 Systolic blood pressure 111 mm[Hg] Stephanie Kramer [employer] Work Phone: [facility] 05-06-2025 08:59-0400 Body height 149.86 cm Stephanie Kramer [employer] Work Phone: [facility] 05-06-2025 08:59-0400 Body mass index (BMI) [Ratio] 24.7 kg/m2 Stephaniesarahy oPeer [employer]-C Work Phone: [facility] 05-06-2025 08:59-0400 Body weight 55.47 kg Stephanie Kramer [employer] Work Phone: [facility] 03-14-2025 15:16-0400 Body height 149.86 cm Stephanie Poeer [employer] Work Phone: [facility] 03-14-2025 15:16-0400 Body mass index (BMI) [Ratio] 26.4 kg/m2 Stephanie Poeer [employer] Work Phone: [facility] 03-14-2025 15:16-0400 Body weight 59.42 kg Stephanie Poeer [employer] Work Phone: [facility] 03-14-2025 15:16-0400 Diastolic blood pressure 68 mm[Hg] Stephanie Peoer [employer] Work Phone: [facility] 03-14-2025 15:16-0400 Systolic blood pressure 108 mm[Hg] Stephanie Poeer [employer] Work Phone: [facility] 01-03-2025 10:56-0400 Body temperature 98.1 [degF] Stephanie Poeer [employer] Work Phone: [facility] 01-03-2025 10:56-0400 Diastolic blood pressure 60 mm[Hg] Stephanie Poeer [employer] Work Phone: [facility] 01-03-2025 10:56-0400 Heart rate 70 /min Stephanie Kramer [employer] Work Phone: [facility] 01-03-2025 10:56-0400 Respiratory rate 14 /min Stephanie Kramer [employer] Work Phone: [facility] 01-03-2025 10:56-0400 SaO2% (BldA) [Mass fraction] 98 % Stephanie Kramer [employer] Work Phone: [facility] 01-03-2025 10:56-0400 Systolic blood pressure 100 mm[Hg] Stephanie Kramer [employer] Work Phone: [facility] 12-30-2024 11:34-0400 Body temperature 98.8 [degF] Stephanie Kramer [employer] Work Phone: [facility] 12-30-2024 11:34-0400 Diastolic blood pressure 60 mm[Hg] Stephanie Kramer [employer] Work Phone: [facility] 12-30-2024 11:34-0400 Heart rate 80 /min Stephanie Kramer [employer] Work Phone: [facility] 12-30-2024 11:34-0400 SaO2% (BldA) [Mass fraction] 96 % Stephanie Kramer [employer] Work Phone: [facility] 12-30-2024 11:34-0400 Systolic blood pressure 100 mm[Hg] Stephanie Kramer [employer] Work Phone: [facility] 12-30-2024 11:15-0400 Body height 149.86 cm Stephanie Kramer [employer] Work Phone: [facility] 11-02-2023 17:18-0500 Body height 149.86 cm [employer] Stephanie Kramer [employer] Work Phone: [facility] 11-02-2023 17:18-0500 Body mass index (BMI) [Ratio] 24.9 kg/m2 [employer] Stephanie Kramer [employer] Work Phone: [facility] 11-02-2023 17:18-0500 Body temperature 98.1 [degF] [employer] Stephanie Kramer [employer] Work Phone: [facility] 11-02-2023 17:18-0500 Body weight 55.96 kg [employer] Stephanie Kramer [employer] Work Phone: [facility] 11-02-2023 17:18-0500 Diastolic blood pressure 60 mm[Hg] [employer] Stephanie Kramer [employer] Work Phone: [facility] 11-02-2023 17:18-0500 Heart rate 85 /min [employer] Stephanie Kramer [employer] Work Phone: [facility] 11-02-2023 17:18-0500 Respiratory rate 17 /min [employer] Stephanie Kramer [employer] Work Phone: [facility] 11-02-2023 17:18-0500 SaO2% (BldA) [Mass fraction] 98 % [employer] Stephanie Kramer [employer] Work Phone: [facility] 11-02-2023 17:18-0500 Systolic blood pressure 102 mm[Hg] [employer] Stephanie Kramer [employer] Work Phone: [facility] 10-31-2023 11:40-0500 Body temperature 98.3 [degF] [employer] Stephanie Kramer [employer] Work Phone: [facility] 10-31-2023 11:40-0500 Diastolic blood pressure 77 mm[Hg] [employer] Stephanie Kramer [employer] Work Phone: [facility] 10-31-2023 11:40-0500 Heart rate 74 /min [employer] Stephanie Kramer [employer] Work Phone: [facility] 10-31-2023 11:40-0500 Respiratory rate 16 /min [employer] Stephanie Kramer [employer] Work Phone: [facility] 10-31-2023 11:40-0500 SaO2% (BldA) [Mass fraction] 99 % [employer] Stephanie Kramer [employer] Work Phone: [facility] 10-31-2023 11:40-0500 Systolic blood pressure 104 mm[Hg] [employer] Stephanie Kramer [employer] Work Phone: [facility] 10-31-2023 09:38-0500 Body mass index (BMI) [Ratio] 24 kg/m2 [employer] Stephanie Kramer [employer] Work Phone: [facility] 10-31-2023 09:38-0500 Body weight 55.42 kg [employer] Stephanie Kramer [employer] Work Phone: [facility] 05-04-2023 14:53-0400 Body height 152.4 cm [employer]-Orquidea Kramer [employer] Work Phone: [facility] 05-04-2023 14:53-0400 Body mass index (BMI) [Ratio] 24 kg/m2 [employer] Stephanie Kramer [employer] Work Phone: [facility] 05-04-2023 14:53-0400 Body weight 55.79 kg [employer] Stephanie Kramer [employer] Work Phone: [facility] 05-04-2023 14:53-0400 Diastolic blood pressure 80 mm[Hg] [employer] Stephanie Kramer [employer] Work Phone: [facility] 05-04-2023 14:53-0400 Heart rate 84 /min [employer] Stephanie Kramer [employer] Work Phone: [facility] 05-04-2023 14:53-0400 Respiratory rate 16 /min [employer] Stephanie Kramer [employer] Work Phone: [facility] 05-04-2023 14:53-0400 SaO2% (BldA) [Mass fraction] 98 % [employer]-Orquidea Kramer [employer] Work Phone: [facility] 05-04-2023 14:53-0400 Systolic blood pressure 112 mm[Hg] [employer]Orquidea Kramer [employer] Work Phone: [facility] 04-28-2023 11:07-0400 Body temperature 98 [degF] [employer] Stephanie Kramer [employer] Work Phone: [facility] 04-28-2023 11:07-0400 Diastolic blood pressure 74 mm[Hg] [employer] Stephanie Kramer [employer] Work Phone: [facility] 04-28-2023 11:07-0400 Heart rate 92 /min [employer] Stephanie Kramer [employer] Work Phone: [facility] 04-28-2023 11:07-0400 Respiratory rate 14 /min [employer] Stephanie Kramer [employer] Work Phone: [facility] 04-28-2023 11:07-0400 SaO2% (BldA) [Mass fraction] 98 % [employer] Stephanie Kramer [employer] Work Phone: [facility] 04-28-2023 11:07-0400 Systolic blood pressure 118 mm[Hg] [employer] Stephanie Kramer [employer] Work Phone: [facility] 10-13-2022 13:54-0500 Body mass index (BMI) [Ratio] 25.7 kg/m2 Dr. Naheed Kam Work Phone: [facility] 10-13-2022 13:54-0500 Body weight 59.[address] aNheed Kam Work Phone: [facility] 10-13-2022 13:54-0500 Diastolic blood pressure 75 mm[Hg] Dr. Naheed Kam Work Phone: [facility] 10-13-2022 13:54-0500 Systolic blood pressure 113 mm[Hg] Dr. Naheed Kam Work Phone: [facility] 09-14-2022 09:15-0500 Body height 152.[address] Naheed Kam Work Phone: [facility] Work Phone: 09-14-2022 09:15-0500 Body mass index (BMI) [Ratio] 25.2 kg/m2 Dr. Naheed Kam Work Phone: [facility] Work Phone: 09-14-2022 09:15-0500 Body weight 58.[address] Naheed Kam Work Phone: [facility] Work Phone: 09-14-2022 09:15-0500 Diastolic blood pressure 80 mm[Hg] Dr. Naheed Kam Work Phone: [facility] Work Phone: 09-14-2022 09:15-0500 Systolic blood pressure 111 mm[Hg] Dr. Naheed Kam Work Phone: [facility] Work Phone: 08-30-2022 02:06-0500 Diastolic blood pressure 71 mm[Hg] Dr. Naheed Kam Work Phone: [facility] Work Phone: 08-30-2022 02:06-0500 Heart rate 72 /min Dr. Naheed Kam Work Phone: [facility] Work Phone: 08-30-2022 02:06-0500 Respiratory rate 14 /min Dr. Naheed Kam Work Phone: [facility] Work Phone: 08-30-2022 02:06-0500 SaO2% (BldA) [Mass fraction] 99 % Dr. Naheed Kam Work Phone: [facility] Work Phone: 08-30-2022 02:06-0500 Systolic blood pressure 115 mm[Hg] Dr. Naheed Kam Work Phone: [facility] Work Phone: 08-29-2022 23:31-0500 Body height 152.[address] Naheed Kam Work Phone: [facility] Work Phone: 08-29-2022 23:31-0500 Body mass index (BMI) [Ratio] 26.5 kg/m2 Dr. Naheed Kam Work Phone: [facility] Work Phone: 08-29-2022 23:31-0500 Body temperature 97.1 [degF] Dr. Naheed Kam Work Phone: [facility] Work Phone: 08-29-2022 23:31-0500 Body weight 61.[address] Naheed Kam Work Phone: [facility] Work Phone: 08-26-2022 12:00-0500 Body temperature 97.3 [degF] Dr. Naheed Kam Work Phone: [facility] Work Phone: 08-26-2022 12:00-0500 Diastolic blood pressure 65 mm[Hg] Dr. Naheed Kam Work Phone: [facility] Work Phone: 08-26-2022 12:00-0500 Heart rate 98 /min Dr. Naheed Kam Work Phone: [facility] Work Phone: 08-26-2022 12:00-0500 Respiratory rate 18 /min Dr. Naheed Kam Work Phone: [facility] Work Phone: 08-26-2022 12:00-0500 SaO2% (BldA) [Mass fraction] 99 % Dr. Naheed Kam Work Phone: [facility] Work Phone: 08-26-2022 12:00-0500 Systolic blood pressure 110 mm[Hg] Dr. Naheed Kam Work Phone: [facility] Work Phone: 08-24-2022 13:49-0500 Body height 152.[address] Naheed Kam Work Phone: [facility] Work Phone: 08-24-2022 13:49-0500 Body weight 59.[address] Naheed Kam Work Phone: [facility] Work Phone: 08-23-2022 17:55-0500 Body mass index (BMI) [Ratio] 25.4 kg/m2 Dr. Naheed Kam Work Phone: [facility] Work Phone: 08-23-2022 16:11-0500 Body temperature 98.2 [degF] Dr. Naheed Kam Work Phone: [facility] Work Phone: 08-23-2022 16:11-0500 Diastolic blood pressure 75 mm[Hg] Dr. Naheed Kam Work Phone: [facility] Work Phone: 08-23-2022 16:11-0500 Heart rate 98 /min Dr. Naheed Kam Work Phone: [facility] Work Phone: 08-23-2022 16:11-0500 Respiratory rate 18 /min Dr. Naheed Kam Work Phone: [facility] Work Phone: 08-23-2022 16:11-0500 SaO2% (BldA) [Mass fraction] 100 % Dr. Naheed Kam Work Phone: [facility] Work Phone: 08-23-2022 16:11-0500 Systolic blood pressure 111 mm[Hg] Dr. Naheed Kam Work Phone: [facility] Work Phone: 08-23-2022 11:49-0500 Body height 152.[address] Naheed Kam Work Phone: [facility] Work Phone: 08-23-2022 11:49-0500 Body mass index (BMI) [Ratio] 25.4 kg/m2 Dr. Naheed Kam Work Phone: [facility] Work Phone: 08-23-2022 11:49-0500 Body weight 58.[address] Naheed Kam Work Phone: [facility] Work Phone: 08-23-2022 11:01-0500 Body mass index (BMI) [Ratio] 25.4 kg/m2 Dr. Naheed Kam Work Phone: [facility] Work Phone: 08-23-2022 11:01-0500 Body temperature 98.1 [degF] Dr. Naheed Kam Work Phone: [facility] Work Phone: 08-23-2022 11:01-0500 Body weight 59.[address] Naheed Kam Work Phone: [facility] Work Phone: 08-23-2022 11:01-0500 Diastolic blood pressure 73 mm[Hg] Dr. Naheed Kam Work Phone: [facility] Work Phone: 08-23-2022 11:01-0500 Systolic blood pressure 115 mm[Hg] Dr. Naheed Kam Work Phone: [facility] Work Phone: 08-13-2022 15:53-0500 Diastolic blood pressure 77 mm[Hg] Dr. Naheed Kam Work Phone: [facility] Work Phone: 08-13-2022 15:53-0500 Heart rate 96 /min Dr. Naheed Kam Work Phone: [facility] Work Phone: 08-13-2022 15:53-0500 Respiratory rate 14 /min Dr. Naheed Kam Work Phone: [facility] Work Phone: 08-13-2022 15:53-0500 SaO2% (BldA) [Mass fraction] 100 % Dr. Naheed Kam Work Phone: [facility] Work Phone: 08-13-2022 15:53-0500 Systolic blood pressure 124 mm[Hg] Dr. Naheed Kam Work Phone: [facility] Work Phone: 08-13-2022 10:22-0500 Body mass index (BMI) [Ratio] 28.2 kg/m2 Dr. Naheed Kam Work Phone: [facility] Work Phone: 08-13-2022 10:22-0500 Body temperature 97 [degF] Dr. Naheed Kam Work Phone: [facility] Work Phone: 08-13-2022 10:22-0500 Body weight 65.[address] Naheed Kam Work Phone: [facility] Work Phone: 08-12-2022 14:50-0500 Body temperature 98.7 [degF] Dr. Naheed Kam Work Phone: [facility] Work Phone: 08-12-2022 14:50-0500 Diastolic blood pressure 66 mm[Hg] Dr. Naheed Kam Work Phone: [facility] Work Phone: 08-12-2022 14:50-0500 Heart rate 84 /min Dr. Naheed Kam Work Phone: [facility] Work Phone: 08-12-2022 14:50-0500 Respiratory rate 16 /min Dr. Naheed Kam Work Phone: [facility] Work Phone: 08-12-2022 14:50-0500 SaO2% (BldA) [Mass fraction] 98 % Dr. Naheed Kam Work Phone: [facility] Work Phone: 08-12-2022 14:50-0500 Systolic blood pressure 97 mm[Hg] Dr. Naheed Kam Work Phone: [facility] Work Phone: 08-12-2022 09:02-0500 Body temperature 98.6 [degF] Dr. Naheed Kam Work Phone: [facility] Work Phone: 08-12-2022 09:02-0500 Diastolic blood pressure 55 mm[Hg] Dr. Naheed Kam Work Phone: [facility] Work Phone: 08-12-2022 09:02-0500 Heart rate 83 /min Dr. Naheed Kam Work Phone: [facility] Work Phone: 08-12-2022 09:02-0500 Respiratory rate 18 /min Dr. Naheed Kam Work Phone: [facility] Work Phone: 08-12-2022 09:02-0500 SaO2% (BldA) [Mass fraction] 98 % Dr. Naheed Kam Work Phone: [facility] Work Phone: 08-12-2022 09:02-0500 Systolic blood pressure 89 mm[Hg] Dr. Naheed Kam Work Phone: [facility] Work Phone: 08-11-2022 14:11-0500 Body temperature 99.3 [degF] Dr. Naheed Kam Work Phone: [facility] Work Phone: 08-11-2022 14:11-0500 Diastolic blood pressure 58 mm[Hg] Dr. Naheed Kam Work Phone: [facility] Work Phone: 08-11-2022 14:11-0500 Heart rate 81 /min Dr. Naheed Kam Work Phone: [facility] Work Phone: 08-11-2022 14:11-0500 Respiratory rate 16 /min Dr. Naheed Kam Work Phone: [facility] Work Phone: 08-11-2022 14:11-0500 SaO2% (BldA) [Mass fraction] 98 % Dr. Naheed Kam Work Phone: [facility] Work Phone: 08-11-2022 14:11-0500 Systolic blood pressure 94 mm[Hg] Dr. Naheed Kam Work Phone: [facility] Work Phone: 08-11-2022 06:00-0500 Inhaled oxygen flow rate 4 L/min Dr. Naheed Kam Work Phone: [facility] Work Phone: 08-10-2022 18:21-0500 Body height 151.[address] Naheed Kam Work Phone: [facility] Work Phone: 08-10-2022 18:21-0500 Body mass index (BMI) [Ratio] 26.4 kg/m2 Dr. Naheed Kam Work Phone: [facility] Work Phone: 08-10-2022 18:21-0500 Body weight [address] Naheed Kam Work Phone: [facility] Work Phone: 07-28-2022 14:29-0500 Body mass index (BMI) [Ratio] 26.8 kg/m2 Dr. Naheed Kam Work Phone: [facility] Work Phone: 07-28-2022 14:29-0500 Body weight 62.[address] Naheed Kam Work Phone: [facility] Work Phone: 07-28-2022 14:29-0500 Diastolic blood pressure 72 mm[Hg] Dr. Naheed Kam Work Phone: [facility] Work Phone: 07-28-2022 14:29-0500 Systolic blood pressure 115 mm[Hg] Dr. Naheed Kam Work Phone: [facility] Work Phone: 06-24-2022 17:31-0400 Body mass index (BMI) [Ratio] 26.2 kg/m2 Dr. Naheed Kam Work Phone: [facility] Work Phone: 06-24-2022 17:31-0400 Body weight 60.[address] Naheed Kam Work Phone: [facility] Work Phone: 06-01-2022 14:31-0400 Body temperature 98.2 [degF] Dr. Naheed Kam Work Phone: [facility] Work Phone: 06-01-2022 14:31-0400 Diastolic blood pressure 82 mm[Hg] Dr. Naheed Kam Work Phone: [facility] Work Phone: 06-01-2022 14:31-0400 Heart rate 86 /min Dr. Naheed Kam Work Phone: [facility] Work Phone: 06-01-2022 14:31-0400 Respiratory rate 18 /min Dr. Naheed Kam Work Phone: [facility] Work Phone: 06-01-2022 14:31-0400 SaO2% (BldA) [Mass fraction] 99 % Dr. Naheed Kam Work Phone: [facility] Work Phone: 06-01-2022 14:31-0400 Systolic blood pressure 118 mm[Hg] Dr. Naheed Kam Work Phone: [facility] Work Phone: 05-14-2022 09:00-0400 Body height 152.[address] Naheed Kam Work Phone: [facility] Work Phone: 05-14-2022 09:00-0400 Body mass index (BMI) [Ratio] 26 kg/m2 Dr. Naheed Kam Work Phone: [facility] Work Phone: 05-14-2022 09:00-0400 Body weight 60.[address] Naheed Kam Work Phone: [facility] Work Phone: 05-14-2022 09:00-0400 Diastolic blood pressure 75 mm[Hg] Dr. Naheed Kam Work Phone: [facility] Work Phone: 05-14-2022 09:00-0400 Systolic blood pressure 115 mm[Hg] Dr. Naheed Kam Work Phone: [facility] Work Phone: 02-10-2022 14:47-0400 Body height 152.[address] Naheed Kam Work Phone: [facility] Work Phone: 02-10-2022 14:47-0400 Body mass index (BMI) [Ratio] 25.6 kg/m2 Dr. Naheed Kam Work Phone: [facility] Work Phone: 02-10-2022 14:47-0400 Body weight 59.[address] Naheed Kam Work Phone: [facility] Work Phone: 02-10-2022 14:47-0400 Diastolic blood pressure 70 mm[Hg] Dr. Naheed Kam Work Phone: [facility] Work Phone: 02-10-2022 14:47-0400 Systolic blood pressure 110 mm[Hg] Dr. Naheed Kam Work Phone: [facility] Work Phone: 01-20-2022 12:10-0400 Body temperature 98.4 [degF] Dr. Naheed Kam Work Phone: [facility] Work Phone: 01-20-2022 12:10-0400 Diastolic blood pressure 62 mm[Hg] Dr. Naheed Kam Work Phone: [facility] Work Phone: 01-20-2022 12:10-0400 Heart rate 92 /min Dr. Naheed Kam Work Phone: [facility] Work Phone: 01-20-2022 12:10-0400 Respiratory rate 14 /min Dr. Naheed Kam Work Phone: [facility] Work Phone: 01-20-2022 12:10-0400 SaO2% (BldA) [Mass fraction] 99 % Dr. Naheed Kam Work Phone: [facility] Work Phone: 01-20-2022 12:10-0400 Systolic blood pressure 114 mm[Hg] Dr. Naheed Kam Work Phone: [facility] Work Phone: 06-29-2017 08:07-0400 BMI (Body Mass Index) 24.25 kg/m2 Cindy Vivas NP [facility] 06-29-2017 08:07-0400 Body Temperature 97 [degF] Cindy Vivas CANARY RAISER [facility] 06-29-2017 08:07-0400 BP Diastolic 74 mm[Hg] Cindy Vivas CANARY RAISER [facility] 06-29-2017 08:07-0400 BP Systolic 109 mm[Hg] Cindy Vivas CANARY RAIS[facility] 06-29-2017 08:07-0400 Height 152.4 cm Cindy Vivas NP [facility] 06-29-2017 08:07-0400 Pulse (Heart Rate) 77 /min Cindy Vivas NP [facility] 06-29-2017 08:07-0400 Respiratory Rate 16 /min Cindy Vivas NP [facility] 06-29-2017 08:07-0400 Weight 56.34 kg Cindy Vivas NP [facility] 03-11-2016 17:40-0400 BSA (Body Surface Area) 1.52 m2 Cindy Vivas NP [facility] Encounters Encounter Date Encounter Type Care Provider Facility Start: 07-08-2025 ambulatory Stephanie Kramer NP Fa cility:[facility] Start: 06-07-2025 End: 06-07-[address] Og Kunz MD -[facility] Work Phone: Start: 06-07-2025 End: 06-07-2025 ambulatory Stephanie Kramer CANARY RAISER-C Work Phone: -[facility] Start: 06-03-2025 End: 06-03-[address] Elsie Newby [place] -[facility] Work Phone: Start: 06-03-2025 End: 06-03-2025 ambulatory Stephanie Kramer CANARY RAISER-C Work Phone: -[facility] Start: 05-23-2025 End: 05-23-2025 ambulatory Stephanie Kramer CANARY RAISER-C Work Phone: -Ultrasound [facility] Start: 05-23-2025 End: 05-23-2025 Patient encounter procedure Kathi GRANADOSC -Ultrasound [facility] Work Phone: Start: 05-22-2025 End: 05-23-2025 ambulatory Stephanie Kramer CANARY RAISER-C Work Phone: -[facility] Start: 05-22-2025 End: 05-22-2025 Patient encounter procedure Kathi Keenan NP-C -[facility] Work Phone: Start: 05-22-2025 End: 05-22-2025 ambulatory Kathi Keenan Facility:[facility] Start: 05-10-2025 End: 05-10-2025 ambulatory Stephanie Kramer [employer]ARY RA[employer]ER-C Work Phone: -Laboratory Start: 05-10-2025 End: 05-10-[address] Barbara Xiao MD -Laboratory Work Phone: Start: 05-10-2025 End: 05-10-2025 ambulatory Barbara Xiao Facility:[facility] Start: 05-06-2025 End: 05-06-2025 Emergency department patient visit Stephanie Kramer [employer]-C Work Phone: -Emergency Department Work Phone: Start: 04-26-2025 Registered Referred HEALTH RIS K ASSESSMENT -Employee Health Start: 04-26-2025 ambulatory Health Risk Assessment Facility:[facility] Start: 04-04-2025 End: 04-04-[address] Elsie Newby [place] -[facility] Work Phone: Start: 04-04-2025 End: 04-04-2025 ambulatory Stephanie Kramer [employer]ARY RAISER-C Work Phone: -[facility] Start: 03-14-2025 End: 03-14-[address] Elsie Newby [place] -[facility] Work Phone: Start: 03-14-2025 End: 03-14-2025 ambulatory Stephanie Kramer CANARY RAISER-C Work Phone: -[facility] Start: 01-07-2025 End: 01-07-2025 ambulatory Stephanie Kramer CANARY RAISER-C Work Phone: [facility] Work Phone: Start: 01-07-2025 End: 01-07-2025 Patient encounter procedure Stephanie Kramer CANARY RAISER-C -Radiology, [facility] Work Phone: Start: 01-07-2025 End: 01-07-2025 ambulatory Stephanie Kramer NP Facility:[facility] Start: 01-03-2025 End: 01-03-2025 Patient encounter procedure Luis Armando Scherer [facility] Work Phone: Start: 01-03-2025 End: 01-03-2025 ambulatory Luis Armando POON Facility:[facility] Start: 12-30-2024 End: 12-30-2024 Patient encounter procedure Solomon Luz CANARY RAISER-C -[facility] Work Phone: Start: 12-30-2024 End: 12-30-2024 ambulatory Solomon Luz NP Facility:[facility] Start: 10-18-2024 ambulatory Stephanie Kramer NP Fa cility:[facility] Start: 09-21-2024 End: 09-21-2024 Patient encounter procedure Stephanie Kramer [employer]-C Work Phone: -Laboratory Work Phone: Start: 09-20-2024 End: 09-24-2024 ambulatory STEPHANIE KRAMER [employer]URE [employer]ORY [employer]ER Facility:[facility] Start: 09-20-2024 End: 09-24-2024 Outreach Lab OMARI EMERY FURNITURE [employer]ORY M[employer]ER [facility] Start: 08-15-2024 ambulatory Cassy Haideri ty:[facility] Start: 08-12-2024 End: 08-12-2024 ambulatory Stephanie Kramer CANARY RAISER Facility:[facility] Start: 08-08-2024 End: 08-08-2024 ambulatory Stephanie Kramer CANARY RAISER Facility:[facility] Start: 07-23-2024 End: 08-04-2024 ambulatory Cassy Espinoza Facility:[facility] Start: 07-17-2024 End: 07-17-2024 ambulatory Stephanie Kramer CANARY RAISER Facility:[facility] Start: 07-06-2024 End: 07-06-2024 ambulatory Lonnie Arriola PA Facility:[facility] Start: 05-23-2024 End: 05-27-2024 ambulatory STEPHANIE KRAMER FURNITURE CRATER[employer]REFRACTORY MIXER Facility:[facility] Start: 05-23-2024 End: 05-27-2024 Outreach Lab VERONICA FRANCO [employer]URNITURE [employer]ORY [employer]ER [facility] Start: 11-10-2023 End: 11-10-2023 ambulatory [employer]ER-C Stephanie Kramer CANARY RAISER Work Phone: [facility] Work Phone: Start: 11-10-2023 End: 11-10-2023 Patient encounter procedure [employer]ER-C Stephanie Kramer [employer]ARY RAISER Work Phone: [facility]-Laboratory Work Phone: Start: 11-02-2023 End: 11-02-2023 Patient encounter procedure [employer]ER-C Stephanie Kramer CANARY RAISER Work Phone: [facility] Work Phone: Start: 10-31-2023 End: 10-31-2023 Emergency department patient visit [employer]ISER-C Stephanie Kramer CANARY RAISER Work Phone: [facility]-Emergency Department Work Phone: Start: 07-01-2023 End: 07-01-2023 ambulatory [facility] Work Phone: Start: 07-01-2023 End: 07-01-2023 Discharged Recurring [facility]-Physical Therapy Work Phone: Start: 07-01-2023 Registered Recurring [employer]-C Kezia Kramer [employer] RAISER Work Phone: [facility]-Physical Therapy Work Phone: Start: 06-28-2023 End: 06-28-2023 ambulatory [employer]-C Stephanie Kramer [employer]ARY RAISER Work Phone: [facility] Work Phone: Start: 06-28-2023 End: 06-28-2023 Patient encounter procedure [employer]ER-C Stephanie Kramer CANARY RAISER Work Phone: [facility]-Outpatient Breast Imaging Work Phone: Start: 06-02-2023 End: 06-02-2023 ambulatory [employer] RA[employer]ER-C Stephanie Kramer CANARY RAISER Work Phone: [facility] Work Phone: Start: 06-02-2023 End: 06-02-2023 Patient encounter procedure [employer]ARY RA[employer]ER-C Stephanie Kramer CANARY RAISER Work Phone: [facility] Work Phone: Start: 05-31-2023 End: 05-31-2023 ambulatory [employer] RA[employer]ER-C Stephanie Kramer [employer]ARY RAISER Work Phone: [facility] Work Phone: Start: 05-31-2023 End: 05-31-2023 Patient encounter procedure [employer]ER-C Stephanie Kramer CANARY RAISER Work Phone: [facility]-Laboratory Work Phone: Start: 05-04-2023 End: 05-04-2023 Patient encounter procedure [employer]-C Stephanie Kramer [employer]ARY RA[employer]ER Work Phone: [facility] Work Phone: Start: 04-28-2023 End: 04-28-2023 Patient encounter procedure [employer]ER-C Stephanie Kramer CANARY RAISER Work Phone: [facility] Work Phone: Start: 04-21-2023 Registered Referred [employer]ER-C Mehreen Kramer CANARY RAISER Work Phone: [facility]-Employee Health Start: 01-11-2023 End: 01-11-[address] Naheed Kam Work Phone: [facility] Work Phone: Start: 01-11-2023 End: 01-11-[address] Naheed Kam Work Phone: [facility]-Laboratory Start: 10-13-2022 End: 10-13-[address] Naheed Kam Work Phone: [facility] Start: 09-14-2022 End: 09-14-[address] Naheed Kam Work Phone: [facility] Work Phone: Start: 09-14-2022 End: 09-14-[address] Naheed Kam Work Phone: [facility]-Laboratory, Specimen Start: 09-14-2022 End: 09-14-[address] Naheed Kam Work Phone: [facility] Start: 08-29-2022 End: 08-30-2022 Emergency department patient visit Dr. Naheed Kam Work Phone: [facility]-Emergency Department Start: 08-26-2022 Non-patient / Non-visit Dr. Chel Kam Work Phone: [facility] Start: 08-25-2022 Non-patient / Non-visit Dr. Chel Kam Work Phone: [facility] Start: 08-24-2022 Non-patient / Non-visit Dr. Chel Kam Work Phone: [facility] Start: 08-23-2022 End: 08-26-2022 Evaluation and management of inpatient [facility] Start: 08-23-2022 Non-patient / Non-visit Dr. Chel Kam Work Phone: [facility] Start: 08-23-2022 Admission to [facility] Dr[facility] Naheed [facility] Start: 08-23-[address] Naheed Kam Work Phone: [facility] Work Phone: Start: 08-23-2022 End: 08-23-[address] Naheed Kam Work Phone: [facility] Work Phone: Start: 08-23-2022 End: 08-23-[address] Naheed Kam Work Phone: [facility] Start: 08-13-2022 End: 08-13-2022 Emergency department patient visit Dr. Naheed Kam Work Phone: [facility]-Emergency Department Start: 08-12-2022 Non-patient / Non-visit Dr. Chel Kam Work Phone: [facility] Start: 08-11-2022 Non-patient / Non-visit Dr. Chel Kam Work Phone: [facility] Start: 08-10-2022 End: 08-12-2022 Evaluation and management of inpatient Dr. Naheed [facility] Start: 08-10-2022 End: 08-12-[address] Naheed Kam Work Phone: [facility] Work Phone: Start: 08-10-2022 Non-patient / Non-visit Dr. Chel Kam Work Phone: [facility] Start: 07-28-2022 End: 07-28-[address] Naheed Kam Work Phone: [facility] Start: 07-22-2022 End: 07-22-[address] Naheed Kam Work Phone: [facility] Start: 2022 End: [address] Naheed Kam Work Phone: [facility] Start: 06-25-2022 End: 06-25-[address] Naheed Kam Work Phone: [facility] Start: 06-24-2022 End: 06-24-[address] Naheed Kam Work Phone: [facility] Start: 06-18-2022 End: 06-18-[address] Naheed Kam Work Phone: [facility] Work Phone: Start: 06-18-2022 End: 06-18-[address] Naheed Kam Work Phone: [facility]-Outpatient Breast Imaging Start: 06-01-2022 End: 06-01-[address] Naheed Kam Work Phone: [facility] Start: 05-31-2022 End: 05-31-[address] Naheed Kam Work Phone: [facility] Start: 05-14-2022 End: 05-14-[address] Naheed Kam Work Phone: [facility] Start: 05-14-[address] Naheed cunningham Work Phone: [facility]-Laboratory Start: 02-10-2022 End: 02-10-[address] Naheed Kam Work Phone: [facility]-Laboratory, Specimen Start: 02-10-2022 End: 02-10-[address] Naheed Kam Work Phone: [facility] Start: 02-02-2022 End: 02-02-[address] Naheed Kam Work Phone: [facility]-Ultrasound, [facility] Start: 01-29-2022 End: 01-29-[address] Naheed Kam Work Phone: [facility]-Laboratory Start: 01-20-2022 End: 01-20-[address] Naheed Kam Work Phone: [facility] Procedures Date Procedure Procedure Detail Performing Clinician Start: 05-23-2025 Pelvic echography Mehreen GRANADOSC Work Phone: Start: 05-22-2025 Gram stain microscopy E teresa Kramer NP-C Work Phone: Start: 05-22-2025 Source specific culture Stephanie Kramer NP-C Work Phone: Start: 05-22-2025 Urine culture Stephanie Kramer NP-C Work Phone: Start: 05-06-2025 End: 05-06-2025 Polymerase chain reaction analysis Stephanie Kramer NP-C Work Phone: Start: 05-06-2025 End: 05-06-2025 Trichomonas vaginalis detection Stephanie Kramer NP-C Work Phone: Start: 05-06-2025 Urine culture Stephanie Kramer CANARY RAISER-C Work Phone: Start: 05-06-2025 Transvaginal echography Stephanie Kramer [employer]ARY RAISER-C Work Phone: Start: 05-06-2025 Estimated creatinine clearance Stephanie Kramer [employer]ARY RA[employer]ER-C Work Phone: Start: 05-06-2025 Urnls dip stick/tabl et reagent auto microscopy Stephanie Kramer [employer]ER-C Work Phone: Start: 05-06-2025 Computed tomography of abdomen and pelvis with intravenous contrast Stephanie Kramer [employer]ER-C Work Phone: Start: 04-26-2025 Serum inorganic phos phate measurement Stephanie Kramer [employer] RA[employer]ER-C Work Phone: Start: 04-26-2025 Urnls dip stick/tabl et reagent auto microscopy Stephanie Kramer [employer]ER-C Work Phone: Start: 01-07-2025 X-ray of chest, PA a nd lateral views Stephanie Kramer CANARY RAISER-C Work Phone: Start: 09-21-2024 Hepatitis B core ant ibody measurement, IgM type Stephanie Kramer CANARY RAISER-C Work Phone: Comment on above: Performed at: [address] [id number] Director: Gil Alves PhD, Phone: [phone] Start: 09-21-2024 Hepatitis B surface antigen measurement Stephanie Kramer [employer]ER-C Work Phone: Start: 09-21-2024 Hepatitis C antibody measurement Stephanie Kramer CANARY RAISER-C Work Phone: Comment on above: Non Reactive: < 0.8 Equivocal: >/= 0.8 to < 1.0 Reactive: >/= 1.0The [facility] requires that a reactive/equivocal HCV antibody result be sent out for confirmation. HCV Quant by PCR testing. Start: 06-28-2023 Screening mammography N P-C Stephanie Kramer CANARY RAISER Work Phone: Start: 06-02-2023 Computed tomography of abdomen and pelvis with contrast [employer]-C Stephanie Kramer [employer]ARY RA[employer]ER Work Phone: Start: 05-31-2023 CT of abdomen [employer]ER-C Kezia abhyun Kramer [employer]ARY RAISER Work Phone: Start: 08-23-2022 Biopsy/Inj or Needle [...] Phone: Start: 08-10-2022 Hysterectomy Hysterectomy VERONICA Castellano [employer]URN[employer] M[employer]ER Start: 08-10-[address] Sterling Kam Work Phone: Start: 08-05-2022 Hysterectomy VERONICA Castellano [employer]URNIT[employer] M[employer]ER Comment on above: for AUB c/b postop abscess Start: 06-18-2022 Bilateral mammography Jodie Kam Work Phone: Start: 06-18-[address] Naheed Kam Work Phone: Start: 02-02-[address] Naheed Kam Work Phone: Start: 06-30-2017 End: 07-04-2017 Herpes simplex virus 1+2 IgG Ab [Units/volume] in Serum Cindy Vivas [employer]ER Work Phone: Start: 06-29-2017 End: 06-29-2017 Urnls dip stick/tablet rgnt non-auto w/o micrscp Cindy Vivas [employer] Work Phone: Start: 06-16-2017 End: 06-16-2017 Appl [...] test) [Presence] in Serum or Plasma Naheed Kam DO Work Phone: Start: 08-21-2015 End: 12-02-2015 Us pelvic nonobstetric real-time image complete Naheed Kam, DO Work Phone: Start: 09-27-2014 End: 09-27-2014 *B12FO Vitamin B12 and Folates Naheed Kam, DO Work Phone: Start: 09-27-2014 End: 09-27-2014 *CBC with Differential Naheed Kam, DO Work Phone: Start: 09-27-2014 End: 10-01-2014 *CELIAC Celiac Disease AB [id number] Naheed Kam, DO Work Phone: Start: 09-27-2014 [...] Treatment Date Care Activity Detail Author Start: 06-03-2025 End: 06-03-2025 Patient encounter procedure Segmental and somatic dysfunction of cervical region -[facility] Work Phone: Start: 05-22-2025 Source specific culture [facility] Start: 05-06-2025 Bacteria identified in Urine by Culture Urine Culture [facility] Start: 05-06-2025 [facility] Start: 03-25-2025 Chiropractic manipulation [facility] Start: 10-31-2023 [facility] Start: 08-26-2022 Patient discharge [facility] Work Phone: Start: 08-26-2022 Catheterization of vein [facility] Work Phone: Start: 08-25-2022 [facility] Work Phone: Start: 08-23-2022 Ambulation without limitation [facility] Work Phone: Start: 08-23-2022 Measuring intake and output [facility] Work Phone: Start: 08-23-2022 Admission procedure [facility] Work Phone: Start: 08-23-2022 Following clinical pathway protocol [facility] Work Phone: Start: 08-23-2022 Admission procedure [facility] Work Phone: Start: 08-23-2022 [facility] Work Phone: Start: 08-23-2022 Consultation [facility] Work Phone: Start: 08-23-2022 Catheterization of vein [facility] Work Phone: Start: 08-23-2022 Oxygen therapy [facility] Work Phone: Start: 08-23-2022 Vital signs measurements [facility] Work Phone: Start: 08-23-2022 Source specific culture [facility] Work Phone: Start: 08-23-2022 Patient referral to dietitian [facility] Work Phone: Start: 08-12-2022 Patient discharge [facility] Work Phone: Start: 08-12-2022 Removal of urinary catheter [facility] Work Phone: Start: 08-11-2022 Introduction of urinary catheter [facility] Work Phone: Start: 08-10-2022 Following clinical pathway protocol [facility] Work Phone: Start: 08-10-2022 Admission procedure [facility] Work Phone: Start: 08-10-2022 Ambulation therapy management [facility] Work Phone: Start: 08-10-2022 Continuous pulse oximetry [facility] Work Phone: Start: 08-10-2022 Elevation of head of bed [facility] Work Phone: Start: 08-10-2022 Incentive spirometry [facility] Work Phone: Start: 08-10-2022 Measuring intake and output [facility] Work Phone: Start: 08-10-2022 Notification of physician [facility] Work Phone: Start: 08-10-2022 Oxygen therapy [facility] Work Phone: Start: 08-10-2022 Patient education [facility] Work Phone: Start: 08-10-2022 Procedures relating to eating and drinking [facility] Work Phone: Start: 08-10-2022 Taking patient vital signs [facility] Work Phone: Start: 08-10-2022 [facility] Work Phone: Start: 08-10-2022 Introduction of urinary catheter [facility] Work Phone: Start: 08-10-2022 Admission procedure [facility] Work Phone: Start: 08-10-2022 Anesthesia vaginal hysterectomy incl biopsy ANESTH VAGINAL HYSTERECTOMY [facility] Work Phone: Start: 08-10-2022 Iv infusion ther proph addl sequential to 1 hr TX/PROPH/DG ADDL SEQ IV INF [facility] Work Phone: Start: 08-10-2022 Laps w/vag hysterect 250 gm/&rmvl tube&/ovaries LAPARO-VAG HYST INCL T/O [facility] Work Phone: Start: 06-30-2017 End: 07-04-2017 Herpes simplex virus 1+2 IgG Ab [Units/volume] in Serum *HS12G Herpes Simplex Antibody [facility] Start: 06-29-2017 End: 06-29-2017 *CUUID - Urine NAKIA Culture - Identificatn *CUUID - Urine NAKIA Culture - Identificatn [facility] Start: 06-29-2017 End: 06-29-2017 Bacteria genital culture *CUV - Culture, VAG/CX [facility] Start: 06-16-2017 End: 06-16-2017 Follow up Appt 2x/week Follow up Appt 2x/week [facility] Start: 05-06-2017 End: 05-06-2017 Referral to physician Follow Up with Primary Care Physician [facility] Start: 05-06-2017 End: 05-06-2017 Urinalysis complete panel - Urine *UAC- Urinalysis, Complete w/ Micro [facility] Start: 03-11-2016 End: 03-12-2016 *CBC with Differential *CBC with Differential [facility] Start: 03-11-2016 End: 03-19-2016 Borrelia burgdorferi Ab [interpretation] in Serum *LYMS Lyme Screen w/Reflx WB [id number] [facility] Start: 03-11-2016 End: 03-15-2016 C reactive protein (hsCRP) *CRP - C-Reative Protein [facility] Start: 03-11-2016 End: 03-12-2016 Erythrocyte sedimentation rate *Sedimentation Rate (ESR) [facility] Start: 03-11-2016 End: 03-12-2016 Heterophile antibody presence *Infectious [place] Screen [facility] Start: 08-21-2015 End: 12-02-2015 HCG ( test) Ql *PREGS - Qualitative, Serum [facility] Start: 08-21-2015 End: 12-02-2015 Us pelvic nonobstetric real-time image complete US Pelvis [facility] Start: 09-27-2014 End: 09-27-2014 *B12FO Vitamin B12 and Folates *B12FO Vitamin B12 and Folates [facility] Start: 09-27-2014 End: 09-27-2014 *CBC with Differential *CBC with Differential [facility] Start: 09-27-2014 End: 10-01-2014 *CELIAC Celiac Disease AB [id number] *CELIAC Celiac Disease AB [id number] [facility] Start: 09-27-2014 End: 09-27-2014 *CMP Complete Metabolic Panel *CMP Complete Metabolic Panel [facility] Start: 09-27-2014 End: 09-27-2014 C reactive protein (hsCRP) *CRP - C-Reative Protein [facility] Start: 09-27-2014 End: 12-02-2015 Ct abdomen & pelvis w/contrast material CT Abdomen/pelvis with contrast [facility] Start: 09-27-2014 End: 12-02-2015 Ct abdomen w/o contrast material CT Abdomen [facility] Start: 09-27-2014 End: 09-27-2014 Erythrocyte sedimentation rate *Sedimentation Rate (ESR) [facility] Start: 09-27-2014 End: 09-27-2014 Thyroid stimulating hormone (TSH) *TSH [facility] Start: 08-22-2014 End: 09-02-2014 *PAPIG6 Cytopath, Cerv/Vag, Fluid Auto Redo *PAPIG6 Cytopath, Cerv/Vag, Fluid Auto Redo [facility] Start: 08-22-2014 End: 09-02-2014 Urnls dip stick/tablet rgnt non-auto w/o micrscp UA Dipstick (Office) [facility] Anaerobic Culture Anaerobic Culture [facility] Work Phone: Anaerobic microbial culture Anaerobic Culture [facility] Work Phone: Bacteria identified in Unspecified specimen by Anaerobe culture [facility] Work Phone: Bacteria identified in Wound by Culture [facility] Work Phone: Genital Culture Genital Culture [facility] Work Phone: Microscopic observat ion [Identifier] in Unspecified specimen by Gram stain Gram Stain [facility] Work Phone: Patient Education [facility] Patient referral [facility] Work Phone: Urine culture [facility] Pelvis [facility] [place] [facility]vis [place] [facility] W[facility] Work Phone: Immunizations Immunization Date Immunization Notes Care Provider Gail vega 07-11-2023 influenza virus vaccine, unspecified formulation VERONICA FRANCO FURNITURE CRATER-REFRACTORY MIXER [facility] [place] 07-11-2023 influenza, injectabl e, quadrivalent, preservative free CANARY RAISER-C Stephanie Kramer CANARY RAISER Work Phone: [facility] 07-21-2022 influenza, injectabl e, quadrivalent, preservative free CANARY RAISER-C Stephanie Kramer CANARY RAISER Work Phone: [facility] 07-21-2022 influenza, seasonal, injectable Dr. Naheed Kam Work Phone: [facility] 06-17-2021 influenza, injectabl e, quadrivalent, preservative free CANARY RAISER-C Stephanie Nia CANARY RAISER Work Phone: [facility] 06-17-2021 influenza, seasonal, injectable Dr. Naheed Kam Work Phone: [facility] 06-23-2020 influenza, injectabl e, quadrivalent, preservative free CANARY RAISER-C Stephanie Nia CANARY RAISER Work Phone: [facility] 06-23-2020 influenza, seasonal, injectable Dr. Naheed Kam Work Phone: [facility] 07-30-2019 influenza, injectabl e, quadrivalent, preservative free CANARY RAISER-C Stephanie Poeer CANARY RAISER Work Phone: [facility] 07-30-2019 influenza, seasonal, injectable Dr. Naheed Kam Work Phone: [facility] 10-11-2018 diphtheria, tetanus toxoids and acellular pertussis vaccine, unspecified formulation Dr. Naheed Kam Work Phone: [facility] Work Phone: 10-11-2018 tetanus toxoid, reduced diphtheria toxoid, and acellular pertussis vaccine, adsorbed Dr. Naheed Kam Work Phone: [facility] 07-20-2018 influenza, injectabl e, quadrivalent, preservative free CANARY RAISER-C Stephanie Poeer CANARY RAISER Work Phone: [facility] 07-20-2018 influenza, seasonal, injectable Dr. Naheed Kam Work Phone: [facility] 06-19-2017 influenza, injectabl e, quadrivalent, preservative free CANARY RAISER-C Stephanie Nia CANARY RAISER Work Phone: [facility] 06-19-2017 influenza, seasonal, injectable Dr. Naheed Kam Work Phone: [facility] 06-04-2002 hepatitis B pediatri c vaccine VERONICA FRANCO FURNITURE CRATER-REFRACTORY MIXER [facility] 04-20-2002 hepatitis B pediatri c vaccine VERONICA FRANCO FURNITURE CRATER-REFRACTORY MIXER [facility] 04-20-2002 measles/mumps/rubell a virus vaccine VERONICA FRANCO FURNITURE CRATER-REFRACTORY MIXER [facility] 10-31-1990 hepatitis B pediatri c vaccine VERONICA FRANCO FURNITURE CRATER-REFRACTORY MIXER [facility] 10-31-1990 measles/mumps/rubell a virus vaccine VERONICA FRANCO FURNITURE CRATER-REFRACTORY MIXER [facility] Payers Date Payer Category Payer Unknown [id number] 2024 Self-pay [id number] 2024 Unknown [id number] 2017 Unknown [id number] 1989 Unknown [id number] 2.16.8 [id number] 1989 Unknown [id number] 2.16.8 40.1.813660.3.579.2.627 Unknown [facility] PACKAGE PLAN [id number] Unknown [id number] 2.16.8 40.1.220074.3.579.2.462 Unknown [id number] 2.16.8 40.1.112249.3.579.2.462 Unknown [id number] 2.16.8 40.1.333840.3.579.2.462 Unknown [id number] 2.16.8 40.1.807135.3.579.2.462 Unknown [id number] 2.16.8 40.1.887156.3.579.2.462 Unknown [id number] 2.16.8 40.1.821103.3.579.2.462 Unknown [id number] 2.16.8 40.1.369125.3.579.2.462 Unknown [id number] 2.16.8 40.1.026013.3.579.2.462 Unknown [id number] 2.16.8 40.1.410149.3.579.2.462 Unknown [id number] 2.16.8 40.1.933108.3.579.2.462 Unknown [id number] 2.16.8 40.1.912717.3.579.2.462 Unknown [id number] 2.16.8 40.1.930073.3.579.2.462 Unknown [id number] 2.16.8 40.1.779576.3.579.2.462 Unknown [id number] 2.16.8 40.1.980182.3.579.2.462 Unknown [id number] 2.16.8 40.1.514612.3.579.2.462 Unknown [id number] 2.16.8 40.1.476401.3.579.2.462 Unknown [id number] 2.16.8 40.1.947201.3.579.2.462 Unknown [id number] 2.16.8 40.1.573449.3.579.2.462 Unknown [id number] 2.16.8 40.1.797474.3.579.2.462 Unknown [id number] 2.16.8 40.1.332833.3.579.2.462 Unknown [id number] 2.16.8 40.1.660872.3.579.2.462 Unknown [id number] 2.16.8 40.1.486390.3.579.2.462 Unknown [id number] 2.16.8 40.1.488936.3.579.2.462 Social History Date Type Detail Facility Start: 01-20-2022 End: 11-02-2023 Tobacco smoking status NHIS Unknown if ever smoked [facility] Start: 11-03-2020 None [facility] Start: 11-03-2020 Spouse/ Signif icant Other [facility] Start: 1990 Sex Assigned At Female [facility] Start: 10-11-2017 Non-smoker [facility] Start: 01-10-2023 End: 05-06-2025 Tobacco smoking status Never smoked tobacco (finding) [facility] Sex Assigned At [facility] Sex Female (finding) [facility] Sex Female [facility] Medical Equipment Procedure Code Equipment Code [...] Assessment Result Facility 08-26-2022 Functional status Ambulates [facility] Work Phone: 08-12-2022 Functional status Ambulates [facility] Work Phone: 08-11-2022 Functional status Chair [facility] Work Phone: Mental Status Date Assessment Result Facility 10-31-2023 Cognitive function Level Of Cons ciousness Awake;Alert;Appropriate;Follow s Commands [facility] Work Phone: 08-26-2022 Cognitive function Voice/Name [facility] Work Phone: 08-23-2022 Cognitive function Awake;Alert;A ppropriate;Follow s Commands [facility] Work Phone: 08-13-2022 Cognitive function Level Of Cons ciousness Awake;Alert;Appropriate;Follow s Commands [facility] Work Phone: 08-12-2022 Cognitive function Voice/Name [facility] Work Phone: 08-11-2022 Cognitive function Level Of Cons ciousness Awake;Alert;Appropriate;Follow s Commands [facility] Work Phone: 08-11-2022 Cognitive function Voice/Name [facility] Work Phone: Clinical Notes 05-25-2024 to 06-03-2025 Note Date & Type Note Facility 06-03-[address] [facility] 06-03-2025 Progress note Note Date/Time June 03, 2025 3:33pm [facility] [address] [id number] OFFICE VISIT Date of Service: 06/03/25 MR#: [id number] Acct: [id number] Name: BARBARA QUINTANILLA Rep #: [id number] : 1990 Provider: JENNIFER Newby Age/Sex: 34/F Location: [facility] Status: Signed Intake Vital Signs 03/14/25 15:16 05/06/25 08:59 05/22/25 14:36 Height 4 ft 11 in 4 ft 11 in 4 ft 11 in Intake Visit Reasons: BACK PAIN Chief Complaint: neck, mid, low back Is patient in pain?: Yes (right mid back) Pain scale (1-10): 3 Allergies hydromorphone (From Dilaudid) Adverse Reaction (Verified 06/03/25 15:09) Other oxycodone (From Percocet) Adverse Reaction (Verified 06/03/25 15:09) Nausea Medications ?Medication ?Instructions ?Recorded ?Confirmed ?Type escitalopram oxalate 10 mg tablet 10 mg PO DAILY 04/2506/03/25 History valacyclovir 500 mg tablet 500 mg PO DAILY PRN Cold So res 04/25/24 06/03/25 History fluconazole 150 mg tablet 150 mg PO Q3D 2 doses #2 tab s 05/22/25 06/03/25 Rx PFSH Medical History Wears glasses Wears contact [...] additional social history: Gallo Patient works at [employer] HPI BACK PAIN Chief Complaint: neck and low back discomfort Visit Number: 3 Details: Barbara Quintanilla a 34 year old female presents for follow up on neck, mid, and low back pain. She reports her neck pain and stiffness has improved since her last adjustment. She complains of right mid back tightness. She rates her mid back pain 3/10 and states it feels like it needs to crack. She stretches at home to ease her stiffness and stay flexible. She denies new injury, numbness, tingling or radiculopathy. She states previous chiropractic adjustments are helpful to relieve her pain and discomfort but it gradually returns. Location: neck, low back Duration: intermittent Aggravating [...] 3-4 regions Electronic Stimulation: Yes Electrical Stimulation: Thoracic 15 mins (15) mA Therapy Performed by:: Ny Lara Traction, Mechanical: Yes Patient Response: positive Assessment and Plan Assessment and Plan (1) Segmental and somatic dysfunction of cervical region: Status: Acute (2) Segmental and somatic dysfunction of lumbar region: Status: Acute (3) Segmental and somatic dysfunction of thoracic region: Status: Acute Orders: Orders 2 Chiropractic Treatments Today M99.01 - Segmental and somatic dysfunction of cervical region, M99.02 - Segmental and somatic dysfunction of thoracic region, M99.03 - Segmental and somatic dysfunction of lumbar region Plan Patient was treated without incident. Continue care. Plan Details Goals & Barriers: Goals Decrease pain and spasm Improve ROM Improve lordosis Follow Up: PRN Coding Level of Care Code No Charge Diagnoses Segmental and somatic dysfunction of cervical region M99.01 Segmental and somatic dysfunction of lumbar region M99.03 Segmental and somatic dysfunction of thoracic region M99.02 CPT Codes Procedures - Manipulation: 3-4 regions (58380) Procedures - Electronic Stimulation: Yes (85583) Procedures - Traction, Mechanical: Yes (42565) 06/03/25 1601 <Electronically signed by Elsie Lundberg> Date _ Elsie Newby D.C. Cosigner Signature: Date (if applicable) CC: ~ [facility] Work Phone: 1(361) 772-349609-18-2025 Radiology Diagnostic study note [facility] Imaging Services [address] [place], [place] [address] Pelvic w/ Transvaginal MR#: [id number] Acct: [id number] Name: BARBARA QUINTANILLA Rep #: [id number] : 1990 F 34 From: Rocael Monge MD PCP: Stephanie Kramer NP-Orquidea Status: RE G CLI Study:Pelvic w/ Transvaginal Date of Exam: 05/23/25 Exam# [id number] Ordering Dr: Kathi Keenan CANARY RAISER-C PROCEDURE: PELVIC W/ TRANSVAGINAL REASON FOR EXAM: RIGHT OVARIAN CYST TECHNIQUE: Procedure Code: USPELTVAG Modality: US Procedure: PELVIC W/ TRANSVAGINAL COMPARISON: Prior study dated May 06, 2025. FINDINGS: Measurements: Patient is status post hysterectomy. Right Ovary: 3.2 cm x 3.7 cm x 3.1 cm with a volume of 18.9 mL. Left Ovary: 2.5 cm x 2.6 cm x 2 cm with a volume of 6.9 mL. TRANSABDOMINAL: Uterus: Status post hysterectomy. Right ovary: Normal size and echotexture. Left ovary: Normal size and echotexture. Other: There is a 4.3 cm 2.4 cm 2.2 cm fluid-filled tubular structure in the right adnexa. Both ovaries are adjacent to each other. PID should be ruled out. Transvaginal sonography was performed to further characterize the ovarian findings. TRANSVAGINAL: Status post hysterectomy Right ovary: Normal size and echotexture. Left ovary: Normal size and echotexture. Other adnexal findings: 4.3 cm x 2.4 cm 2.2 cm tubular fluid-filled structure inthe right adnexa. Cul-de-sac: No free intraperitoneal fluid identified. Tenderness: Present US/Pelvic w/ Transvaginal IMPRESSION: 4.3 cm 2.4 cm 2.2 cm fluid-filled tubular structure in the right adnexa. PID should be ruled out. Reading Location: [place] [address] CC: CHARLY Keenan; CHARLY Kramer ~ Blood Bank Laboratory Professional: Signed [facility]09-01-2025 Discharge summary [facility] Medical Records Department [address] [place] [address] Emergency Department Summary 05/06/25 MR#: [id number] Acct: [id number] Name: BARBARA QUINTANILLA Rep #:[id number] : 1990 34 From: Garett frederick DO PCP: CHARLY Gerard Status:RE G ER Location: ED ADDENDUM by Dr. Garett Walker DO on 05/06/25 at 1553 Will send copy to PRISONER CLASSIFICATION INTERVIEWER 05/06/25 1553 Cosigner Signature (if applicable): cc: CHARLY Kramer; [...] intact Psych: Cooperative, appropriate mood and affect [facility] Medical History Wears glasses Wears contact [...] additional social history: Gallo Patient works at [employer] EXAM Physical Exam Const Vital Signs: 05/06/25 [...] of hysterectomy presents for evaluation of right lowerquadrant abdominal pain. Differential diagnosis includes but is [...] Given these findings I did perform a pelvicexam which was unremarkable. Patient denies any vaginal discharge or bleeding. No concern for STI. States she has had the same sexual partner for years. Will add on trichomonas, gonorrhea, chlamydia.She consented. PRISONER CLASSIFICATION INTERVIEWER was consulted and patient was discussed with Dr. Hilton recommended ultrasoundbe performed. Hold off on any antibiotics for now. Pelvic ultrasound shows thatflow is present tothe ovaries. There is a complex cyst right adnexa is either adjacent to or emanating from the rightovary. Ultrasound shows these are more separate structures with CT shows this is more closely associated with the ovary. Right hydrosalpinx is present. Findings may be sequelae of current or prior infection or inflammatory including PID. Hysterectomy. Moderate free fluid. Gonorrhea and Chlamydia negative. Trichomonas negative. PRISONER CLASSIFICATION INTERVIEWER reconsulted. Patient was discussed with Dr. Hilton. [...] (Auto) 70.2 H Lymph % (Auto) 22.2 [place] % (Auto) 5.9 Eos % (Auto) 1.1 [...] Sl. Cloudy Urine pH 6.0 Ur Specific [place] 1.015 Urine Protein 15 H Urine Glucose [...] rectum. Proctitis should be considered. Reading Location: [facility] Transvaginal US 05/06/25 11:58 IMPRESSION: 1. Flow [...] Hysterectomy 4. Moderate free fluid. Reading Location: [facility] Discharge Plan Triage Chief Complaint: Abd Pain ED Provider: Garett Walker Dx/Rx/DC Orders Prescriptions: No Action valacyclovir 500 mg tablet 500 mg PO DAILY PRN (Reason: Cold Sores) escitalopram oxalate 10 mg tablet 10 mg PO DAILY Primary Care Provider: Stephanie Kramer NP Referrals: Stephanie Kramer NP, CANARY RAISER-C [Primary Care Provider] - Print Language: Cape Verdean What to do if you have Problems For any increased pain, shortness of breath, bleeding, nausea or vomiting, chestpain, or any unexpected problems, contact your Primary Care Provider. Call [facility] ([phone]) or report tothe closest Emergency Room. Call 911 if necessary. 05/06/25 1520 Cosigner Signature (if applicable): CC: CHARLY Kramer; Dr. Nisha Edouard DO ~ Signed [facility]09-01-2025 Radiology Diagnostic study note [facility] Imaging Services [address] [place] [address] Transvaginal Non- MR#: [id number] Acct: [id number] Name: BARBARA QUINTANILLA Rep #: [id number] : 1990 F 34 From: Shannan Miller MD PCP: Stephanie Kramer, CANARY RAISER-C Status: RE G ER Study:Transvaginal Non- Date of Exam: 05/06/25 Exam# [id number] Ordering Dr: Garett Kirkpatrick DO PROCEDURE: TRANSVAGINAL [...] Hysterectomy 4. Moderate free fluid. Reading Location: [facility] CC: CHARLY Kramer; Dr. Garett Walker DO ~ Blood Bank Laboratory Professional: Signed [facility]09-01-2025 Discharge summary Author Garett Walker [facility] Note Date/Time May 06, 2025 3:53pm [facility] Medical Records Department [address] [place] [address] Emergency Department Summary 05/06/25 MR#: [id number] Acct: [id number] Name: BARBARA QUINTANILLA Rep #:[id number] : 1990 34 From: Garett frederick DO PCP: CHARLY Gerard Status:RE G ER Location: ED ADDENDUM by Dr. Garett Walker DO on 05/06/25 at 1553 Will send copy to PRISONER CLASSIFICATION INTERVIEWER 05/06/25 1553<Electronically signed by Garett Walker DO> [...] intact Psych: Cooperative, appropriate mood and affect PFSH COUNT INCLUDES [facility] Medical History Wears glasses Wears contact [...] additional social history: Gallo Patient works at [employer] EXAM Physical Exam Const Vital Signs: 05/06/25 [...] add on trichomonas, gonorrhea, chlamydia. She consented. PRISONER CLASSIFICATION INTERVIEWER was consulted and patient was discussed with [...] fluid. Gonorrhea and Chlamydia negative. Trichomonas negative. PRISONER CLASSIFICATION INTERVIEWER reconsulted. Patient was discussed with Dr. Hilton. [...] Labs: Laboratory Results - last 24 hr 09/01/25 09/01/25 09/01/25 09:21 09:25 10:00 WBC 10.4 RBC 5.04 Hgb 13.6 Hct 41.5 MCV 82.3 MCH 27.0 MCHC 32.8 RDW Std Deviation 37.9 RDW Coeff of Eulogio 12.5 Plt Count 212 MPV 9.6 Immature Gran % (Auto) 0.200 Neut % (Auto) 70.2 H Lymph % (Auto) 22.2 [place] % (Auto) 5.9 Eos % (Auto) 1.1 [...] Sl. Cloudy Urine pH 6.0 Ur Specific [place] 1.015 Urine Protein 15 H Urine Glucose [...] rectum. Proctitis should be considered. Reading Location: [id number] Transvaginal US 05/06/25 11:58 IMPRESSION: 1. Flow [...] Hysterectomy 4. Moderate free fluid. Reading Location: [facility] Discharge Plan Triage Chief Complaint: Abd Pain ED Provider: Garett Walker Dx/Rx/DC Orders Prescriptions: No Action valacyclovir 500 mg tablet 500 mg PO DAILY PRN (Reason: Cold Sores) escitalopram oxalate 10 mg tablet 10 mg PO DAILY Primary Care Provider: Stephanie Kramer NP Referrals: Stephanie Kramer NP, CANARY RAISER-C [Primary Care Provider] - Print Language: [place] What to do if you have Problems For any increased pain, shortness of breath, bleeding, nausea or vomiting, chestpain, or any unexpected problems, contact your Primary Care Provider. Call [facility] ([phone]) or report to the closest Emergency Room. Call 911 if necessary. 05/06/25 1520 <Electronically signed by Garett Walker DO> Cosigner Signature (if applicable): CC: CANARY RAISER-C Stephanie Kramer; Dr. Nisha Edouard DO ~ Signed [facility] Work Phone: 1(152) 639-761309-01-2025 Radiology Diagnostic study note [facility] Imaging Services [address], [place] [address] Abdomen/Pelvis W IV Cont ONLY MR#: [id number] Acct: [id number] Name: BARBARA QUINTANILLA Rep #: [id number] : 1990 F 34 From: Shannan Miller MD PCP: CHARLY Gerard Status: RE G ER Study:Abdomen/Pelvis W IV Cont ONLY Date of E xam: 05/06/25 Exam# [id number] Ordering Dr: Garett Kirkpatrick DO PROCEDURE: ABDOMEN/PELVIS [...] rectum. Proctitis should be considered. Reading Location: [facility] CC: CHARLY Kramer; Dr. Garett Walker, DO ~ Blood Bank Laboratory Professional: Signed [facility]07-10-2025 Evaluation note* Diagnosis Onset Date Resolution [...] of thoracic region acute April 04 2:44pm [facility] Work Phone: 1(542) 424-365307-10-2025 Evaluation note* Diagnosis Onset Date Resolution Status Admit Date Segmental and somatic dysfunction of cervical region acute March 14, 2025 2:46pm Segmental and somatic dysfunction of lumbar region acute Mar 2:46pm Segmental and somatic dysfunction of thoracic region acute March 14, 2025 2:46pm Segmental and somatic dysfunction of cervical region acute April 04, 2025 2:44pm Segmental and somatic dysfunction of lumbar region acute Mar 2:44pm Segmental and somatic dysfunction of thoracic region acute April 04, 2025 2:44pm Hematuria acute May 2:33pm Ovarian cyst acute May 222024 2:33pm Vaginal discharge acute Septemb 2024 2:33pm Segmental and somatic dysfunction of cervical region acute June 03, 2025 2:57pm Segmental and somatic dysfunction of lumbar region acute Sep tember 2024 2:57pm Segmental and somatic dysfunction of thoracic region acute June 03, 2025 2:57pm [facility] Work Phone: 1(177) 778-103705-05-2025 Radiology Diagnostic study note [facility] Imaging Services [address] [place], [place] [address] Chest PA and Lateral MR#: [id number] Acct: [id number] Name: BARBARA QUINTANILLA Rep #: [id number] : 1990 F 34 From: Abhay Cantrell MD PCP: CHARLY Gerard Status: RE G CLI Study:Chest PA and Lateral Date of Exam: 01/07/25 Exam# [id number] Ordering Dr: Stephanie Kramer NP CANARY RAISER-Orquidea PROCEDURE: CHEST PA AND LATERAL 01/07/2025 REASON [...] evidence of acute cardiopulmonary disease. Reading Location: [place] [address] CC: CANARY RAISER-C Stephanie Kramer ~ Blood Bank Laboratory Professional: Signed [facility]04-27-2025 Evaluation note* Diagnosis Onset Date Resolution Status Admit Date Pharyngitis acute December 30, 025 11:19am Acute bronchitis acute January 03, 2025 10:48am [facility] Work Phone: 1(262) 781-918604-27-2025 Evaluation note* Diagnosis Onset Date Resolution Status Admit Date Pharyngitis acute December 30, 2 025 11:19am Acute bronchitis acute January 03, 2025 10:48am Segmental and somatic dysfunction of cervical region acute J 2024 2:46pm Segmental and somatic dysfunction of lumbar region acute Mar 2:46pm Segmental and somatic dysfunction of thoracic region acute J 2024 2:46pm [facility] Work Phone: 1(153) 409-136904-27-2025 Evaluation note* Diagnosis Onset Date Resolution Status [...] thoracic region acute J tony 2024 2:44pm [facility] [facility] Work Phone: 1(650) 356-682101-17-2025 Note. MICRO - Microbiology PROCEDURE: Affirm Pathogens [...] Locations *1: This test was performed at: [address], [facility]- , [facility]09-20-2024 Evaluation + Plan note Future Scheduled Tests [...] Contrast 08/08/24 * US Abdomen Complete 05/30/24 [facility] Chief complaint+Reason for visit Narrative* Chief Complaint [employer] 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 COVID-19 ringing in ears/dizzy/scratchy throat COVID TEST/[facility] EMPLOYEE L BREAST MASS, BREAST PAIN Reason for Visit Menorrhagia with irr egular cycle Acute upper respiratory infection Contact with or suspected exposure to other viral communicable disease Dysfunction of left eustachian tube [facility] Work Phone: [place] complaint+Reason for visit Narrative* Chief Complaint [employer] 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 COVID-19 ringing in ears/dizzy/scratchy throat COVID TEST/[facility] EMPLOYEE L BREAST MASS, BREAST PAIN [...] Menorrhagia with irregular cycle Status post hysterectomy [facility] Work Phone: [place] complaint+Reason for visit Narrative* Chief Complaint [employer] 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 COVID-19 ringing in ears/dizzy/scratchy throat COVID TEST/[facility] EMPLOYEE L BREAST MASS, BREAST PAIN [...] Menorrhagia with irregular cycle Status post hysterectomy [facility] Work Phone: Chief complaint+Reason for visit [...] History of hysterectomy Postoperative abscess Postoperative pain [facility] Work Phone: Chief complaint+Reason for visit [...] History of hysterectomy Postoperative abscess Postoperative pain [facility] Work Phone: Chief complaint+Reason for visit [...] History of hysterectomy Postoperative abscess Postoperative pain [facility] Work Phone: Chief complaint+Reason for visit Narrative* Chief Complaint COVID-19 ringing in ears/dizzy/scratchy throat COVID TEST/[facility] [...] History of hysterectomy Pelvic pain Postoperative pain [facility] Work Phone: Evaluation + Plan note Future Appointments Appointment Date:06/06/2024 09:30:00 AM Scheduled Provider:STEPHANIE KRAMER Location:[facility] Appointment Type: OV Future Scheduled Tests Laboratory* Basic Metabolic Panel 05/25/24 * Thyroid Stimulating Hormone 05/23/24 * Complete Blood Count 05/23/24 * Complete Metabolic Panel 05/23/24 Radiology* MA Mammo Screening Bilateral w/ Sivakumar 06/22/23 * CT Abdomen w/ Contrast 06/01/23 [facility] Evaluation note* Diagnosis Onset Date Resolution Status Acute maxillary sinusitis, unspecified acute [facility] Work Phone: Evaluation note* Diagnosis Onset Date Resolution Status Menorrhagia with irregular cycle acute Ovarian cyst acute [facility] Work Phone: Evaluation note* Diagnosis Onset Date Resolution Status Menorrhagia with irregular cycle acute Acute upper respiratory infection acute Contact with or suspected ex posure to other viral communicable disease acute Dysfunction of left eustachian tube acute [facility] Work Phone: Evaluation note* Diagnosis Onset [...] cycle acute Status post hysterectomy acu te [facility] Work Phone: Evaluation note* Diagnosis Onset [...] e Postoperative abscess acute Postoperative pain acute [facility] Work Phone: Evaluation note* Diagnosis Onset [...] e Pelvic pain acute Postoperative pain acute [facility] Work Phone: Evaluation note* Diagnosis Onset Date Resolution Status History of hysterectomy acut e [facility] Work Phone: Evaluation note* Diagnosis Onset Date Resolution Status Acute sinusitis acute Contact with or suspected ex posure to other viral communicable disease acute Acute sinusitis acute [facility] Work Phone: Evaluation noteNo assessment information available [facility] Work Phone: Evaluation note* Diagnosis Onset Date Resolution Status Acute bronchitis acute [facility] Work Phone: Hospital course Narrative No data available for this section [facility] Discharge instructions No data available for this section [facility] Discharge instructionsAdditional Instructions Follow-up with [employer]VIEW[employer]. Call tomorrow to make an appointment to be seen in the office. Tylenol and Motrin as needed for pain. Narcotics for severe pain. Zofran as needed for nausea. Return back to ED if symptoms change or worsen. Take all of your antibiotics. You are given the first dose here in the emergency department.[facility] Work Phone: Progress note No data available for this section [facility] Reason for referral (narrative)No reason for referral information availableWAd[facility] Work Phone: Chief Complaint and Reason for Visit Chief Complaint CONCERN FOR SINUS IN FECTION E-ORDER BLEEDING Reason for Visit Acute maxillary sinu sitis, unspecified Chief Complaint CONCERN FOR SINUS IN FECTION E-ORDER BLEEDING Annual ([employer]) Reason for Visit Menorrhagia with irr egular [...] January 03, 2025 10:48a m EMPLOYEE COVID/ [employer] January 03, 2025 10:57a m SOB AND RESPIRATORY ILLNESS January 07 1:56pm Reason for Visit Admit Date Pharyngitis December 30, 2024 11: 19am Acute bronchitis January 03, 2025 10:48a m Chief Complaint Admit Date SORE THROAT, EAR PAIN December 30, 2024 1 1:19am CONGESTION January 03, 2025 10:48a m EMPLOYEE COVID/ [employer] January 03, 2025 10:57a m SOB AND [...] CONGESTION January 03, 2025 10:48a m EMPLOYEE [employer]/ [employer] January 03, 2025 10:57a m SOB AND [...] 10, 2025 10:32am ER F/U *ok per [place] May 22, 2025 2:33pm Chief Complaint Admit Date REEVAL March 14, 2025 2:46 pm BACK PAIN April 04, 2025 2:44 pm EMPLOYEE LABS April 26, 2025 5: 53am abd pain May 06, 2025 8:58am LIGHTHEADEDNESS/PELVIC ABSCESS May 10, 2025 10:32am ER F/U *ok per [place] May 22, 2025 2:33pm right ovarian cyst May 23, 2025 9:03am BACK PAIN June 03, 2025 2:57pm Reason for Visit Admit Date Segmental and [...] tho racic region April 04, 2025 2:44pm Hematuria Naomi 17th, 2025 2:33pm Ovarian cyst May 22, 2025 2:33pm Vaginal discharge May 22, 2025 2:33pm Segmental and somatic dysfunction of cer vical region June 03, 2025 2:57pm Segmental and somatic dysfunction of lum bar region June 03, 2025 2:57pm Segmental and somatic dysfunction of tho racic region June 03, 2025 2:57pm Chief Complaint Admit Date REEVAL March 14, 2025 2:46 pm BACK PAIN April 04, 2025 2:44 pm EMPLOYEE LABS April 26, 2025 5: 53am abd pain May 06, 2025 8:58am LIGHTHEADEDNESS/PELVIC ABSCESS May 10, 2025 10:32am ER F/U *ok per [place] May 22, 2025 2:33pm right ovarian cyst May 23, 2025 9:03am BACK PAIN June 03, 2025 2:57pm POSSIBLE PROCTITIS June 07, 2025 2: 00pm Family History No Family History Records Found Relationship Condition Age at Onset Recorded Date/T brian father Diabetes mellitus Unknown Hypertension Unknown mother Hypertension Unknown Advance Directives No Advanced Directives Records Found Advance Directive Response Recorded Date/ Time Living Will No July 01 10:08am Power of Sr Solutions Consultant No July 01, 2021 10:08am Advance Directive Response Recorded Date/ Time Living Will No August 10 6:21pm Power of [employer] Solutions Consultant No August 10, 2022 6:21pm Advance Directive Response Recorded Date/ Time Living Will No August 23, 2 022 4:52pm Power of Sr Solutions Consultant No August 23, 2022 4:52pm Advance Directive Response Recorded Date/ Time Living Will No August 29, 2 022 11:39pm Power of Sr Solutions Consultant No August 29, 2022 11:39pm Advance Directive Response Recorded Date/ Time Living Will No January 17, 2023 1 0:10am Power of Sr Solutions Consultant No January 17, 2023 10:10am Advance Directive Response Recorded Date/ Time Living Will No January 19, 2023 3 :04pm Power of Sr Solutions Consultant No January 19, 2023 3:04pm Advance Directive Response Recorded Date/ Time Living Will No January 19, 2023 2 :04pm Power of Sr Solutions Consultant No January 19, 2023 2:04pm Advance Directive Response Recorded Date/ Time Living Will No October 31 11:22am Power of Sr Solutions Consultant No October 31, 2023 11:22am Advance Directive Response Recorded Date/ Time Do you have a Healthcare Power of Sr Solutions Consultant? No May 06, 2025 9:54am Summary Purpose Additional Source Comments Care Teams (unrecognized sec tion and content) Team Status: Active Member Role Status Dates Dr. Naheed Kam , DO Family Provider Active Stephanie Kramer CANARY RAISER, CANARY RAISER-C Primary Care Provider Activ e Team Status: Inactive Member Role Status Dates Dr. Naheed Kam , DO Primary Care Provider, Referring P roviranjit Active Dr. Nisha Edouard , DO Attending Provider Activ e Team Status: Inactive Member Role Status Dates Stephanie Kramer CANARY RAISER, CANARY RAISER-C Primary Care Provider, Attending Provider, Referring Provider Active Team Status: Inactive Member Role Status Dates Stephanie Kramer CANARY RAISER, CANARY RAISER-C Primary Care Provider, Refe rring Provider Active Luis Armando Scherer PA, PA Attending Provider Active Team Status: Active Member Role Status Dates Stephanie Kramer CANARY RAISER, CANARY RAISER-C Primary Care Provider Activ e Health Risk Assessment Attending Provider, Referring P rovider Active Team Status: Active Member Role Status Dates Stephanie Kramer CANARY RAISER, CANARY RAISER-C Primary Care Provider Activ e brodie man Attending Provider, Referring Provid er Active Team Status: Inactive Member Role Status Dates Stephanie Kramer CANARY RAISER, CANARY RAISER-C Primary Care Provider Activ e LONNIE VACCAREMARY Attending Provider, Referring Provid er Active Team Status: Inactive Member Role Status Dates Stephanie Kramer CANARY RAISER, CANARY RAISER-C Primary Care Provider Activ DAMEON Carreno Attending Provider, Referring Provider Active Team Status: Active Member Role Status Dates Stephanie Kramer CANARY RAISER, CANARY RAISER-C Primary Care Provider Activ e DAMEON JIMENEZ Attending Provider, Referring Provider Active Team Status: Inactive Member Role Status Dates Stephanie Kramer NP, CANARY RAISER-C Primary Care Provider Activ e Dr. Jed Harp , Attending Provider, Emergency P rovider Active Team Status: Inactive Member Role Status Dates RUPERT SALCIDO Attending Provider Active Start: J anuary 2024 End: September 21, 2024 Stephanie Kramer NP, CANARY RAISER-C Primary Care Provider Activ e Start: September 21, 2024 End: September 21, 2024 Team Status: Inactive Member Role Status Dates Stephanie Kramer CANARY RAISER, CANARY RAISER-C Primary Care Provider Activ e Start: December 30, 2024 End: December 30, 2024 Stephanie Kramer CANARY RAISER, CANARY RAISER-C Referring Provider Active Start: December 30, 2024 End: December 30, 2024 Solomon Luz CANARY RAISER, CANARY RAISER-C Attending Provider Active S tart: December 30, 2024 End: December 30, 2024 Team Status: Inactive Member Role Status Dates Stephanie Kramer CANARY RAISER, CANARY RAISER-C Primary Care Provider Activ e Start: January 03, 2025 End: January 03, 2025 Stephanie Kramer CANARY RAISER, CANARY RAISER-C Referring Provider Active Start: January 03, 2025 End: January 03, 2025 Luis Armando POON PA Attending Provider Active Sta rt: January 03, 2025 End: January 03, 2025 Team Status: Inactive Member Role Status Dates Stephanie Kramer CANARY RAISER, CANARY RAISER-C Primary Care Provider Activ e Start: January 07, 2025 End: January 07, 2025 Stephanie Kramer CANARY RAISER, CANARY RAISER-C Attending Provider Active Start: January 07, 2025 End: January 07, 2025 Stephanie Kramer CANARY RAISER, CANARY RAISER-C Referring Provider Active Start: January 07, 2025 End: January 07, 2025 Team Status: Active Member Role/Relationship Status Dates Dr. Naheed Kam , DO Family Provider Active Stephanie Kramer CANARY RAISER, CANARY RAISER-C Primary Care Provider Activ e Team Status: Inactive Member Role/Relationship Status Dates Stephanie Kramer CANARY RAISER, CANARY RAISER-C Primary Care Provider Activ e Start: December 30, 2024 End: December 30, 2024 Stephanie Kramer CANARY RAISER, CANARY RAISER-C Referring Provider Active Start: December 30, 2024 End: December 30, 2024 Solomon Luz CANARY RAISER, CANARY RAISER-C Attending Provider Active S tart: December 30, 2024 End: December 30, 2024 Team Status: Inactive Member Role/Relationship Status Dates Stephanie Kramer CANARY RAISER, CANARY RAISER-C Primary Care Provider Activ e Start: January 03, 2025 End: January 03, 2025 Stephanie Kramer CANARY RAISER, CANARY RAISER-C Referring Provider Active Start: January 03, 2025 End: January 03, 2025 Luis Amrando POON PA Attending Provider Active Sta rt: January 03, 2025 End: January 03, 2025 Team Status: Inactive Member Role/Relationship Status Dates Stephanie Kramer CANARY RAISER, CANARY RAISER-C Primary Care Provider Activ e Start: January 03, 2025 End: January 03, 2025 Stephanie Kramer CANARY RAISER, CANARY RAISER-C Referring Provider Active Start: January 03, 2025 End: January 03, 2025 Luis Armando POON, PA Attending Provider Active Sta rt: January 03, 2025 End: January 03, 2025 Team Status: Inactive Member Role/Relationship Status Dates Stephanie Kramer CANARY RAISER, CANARY RAISER-C Primary Care Provider Activ e Start: January 07, 2025 End: January 07, 2025 Stephanie Kramer CANARY RAISER, CANARY RAISER-C Attending Provider Active Start: January 07, 2025 End: January 07, 2025 Stephanie Kramer CANARY RAISER, CANARY RAISER-C Referring Provider Active Start: January 07, 2025 End: January 07, 2025 Team Status: Inactive Member Role/Relationship Status Dates Stephanie Kramer CANARY RAISER, CANARY RAISER-C Primary Care Provider Activ e Start: March 14, 2025 End: March 14, 2025 Stephanie Kramer CANARY RAISER, CANARY RAISER-C Referring Provider Active Start: March 14, 2025 End: March 14, 2025 Dr. Elsie Newby DC Attending Provider Active S tart: March 14, 2025 End: March 14, 2025 Team Status: Inactive Member Role/Relationship Status Dates Stephanie Kramer CANARY RAISER, CANARY RAISER-C Primary Care Provider Activ e Start: April 04, 2025 End: April 04, 2025 Stephanie Kramer CANARY RAISER, CANARY RAISER-C Referring Provider Active Start: April 04, 2025 End: April 04, 2025 Dr. Elsie Newby DC Attending Provider Active S tart: April 04, 2025 End: April 04, 2025 Team Status: Active Member Role/Relationship Status Dates Stephanie Kramer CANARY RAISER, CANARY RAISER-C Primary Care Provider Activ e Team Status: Inactive Member Role/Relationship Status Dates Stephanie Kramer CANARY RAISER, CANARY RAISER-C Primary Care Provider Activ e Start: January 07, 2025 End: January 07, 2025 Stephanie Kramer CANARY RAISER, CANARY RAISER-C Attending Provider Active Start: January 07, 2025 End: January 07, 2025 Stephanie Kramer CANARY RAISER, CANARY RAISER-C Referring Provider Active Start: January 07, 2025 End: January 07, 2025 Team Status: Inactive Member Role/Relationship Status Dates Stephanie Kramer CANARY RAISER, CANARY RAISER-C Primary Care Provider Activ e Start: March 14, 2025 End: March 14, 2025 Stephanie Kramer CANARY RAISER, CANARY RAISER-C Referring Provider Active Start: March 14, 2025 End: March 14, 2025 Dr. Elsie Newby DC Attending Provider Active S tart: March 14, 2025 End: March 14, 2025 Team Status: Inactive Member Role/Relationship Status Dates Stephanie Kramer CANARY RAISER, CANARY RAISER-C Primary Care Provider Activ e Start: April 04, 2025 End: April 04, 2025 Stephanie Kramer CANARY RAISER, CANARY RAISER-C Referring Provider Active Start: April 04, 2025 End: April 04, 2025 Dr. Elsie Newby DC Attending Provider Active S tart: April 04, 2025 End: April 04, 2025 Team Status: Active Member Role/Relationship Status Dates Stephanie Kramer CANARY RAISER, CANARY RAISER-C Primary Care Provider Activ e Start: April 26, 2025 Health Risk Assessment Attending Provider Active Start: April 26, 2025 Health Risk Assessment Referring Provider Active Start: April 26, 2025 Team Status: Inactive Member Role/Relationship Status Dates Stephanie Kramer CANARY RAISER, CANARY RAISER-C Primary Care Provider Activ e Start: May 06, 2025 End: May 06, 2025 Dr. Garett Walker DO Emergency Provider Activ e Start: May 06, 2025 End: May 06, 2025 Team Status: Active Member Role/Relationship Status Dates Stephanie Kramer CANARY RAISER, CANARY RAISER-C Primary care physician Acti ve Team Status: Inactive Member Role/Relationship Status Dates Stephanie Kramer CANARY RAISER, CANARY RAISER-C Primary care physician Acti ve Start: March 14, 2025 End: March 14, 2025 Stephanie Kramer CANARY RAISER, CANARY RAISER-C Referring Provider Active Start: March 14, 2025 End: March 14, 2025 Dr. Elsie Newby DC Attending physician Active Start: March 14, 2025 End: March 14, 2025 Team Status: Inactive Member Role/Relationship Status Dates Stephanie Kramer CANARY RAISER, CANARY RAISER-C Primary care physician Acti ve Start: April 04, 2025 End: April 04, 2025 Stephanie Kramer CANARY RAISER, CANARY RAISER-C Referring Provider Active Start: April 04, 2025 End: April 04, 2025 Dr. Elsie Newby DC Attending physician Active Start: April 04, 2025 End: April 04, 2025 Team Status: Active Member Role/Relationship Status Dates Stephanie Kramer CANARY RAISER, CANARY RAISER-C Primary care physician Acti ve Start: April 26, 2025 Health Risk Assessment Attending physician Active Start: April 26, 2025 Health Risk Assessment Referring Provider Active Start: April 26, 2025 Team Status: Inactive Member Role/Relationship Status Dates Stephanie Kramer NP, CANARY RAISER-C Primary care physician Acti ve Start: May 06, 2025 End: May 06, 2025 Dr. Garett Walker DO Attending physician Active Start: May End: May 06, 2025 Dr. Garett Walker DO Emergency Department Physician Active Start: May 06, 2025 End: May 06, 2025 Team Status: Active Member Role/Relationship Status Dates Stephanie Kramer NP, CANARY RAISER-C Primary care physician Acti ve Start: May 10, 2025 Dr. Barbara Xiao MD Attending physician Active Start: May 10, 2025 Dr. Barbara Xiao MD Referring Provider Active Start: May 10, 2025 Team Status: Inactive Member Role/Relationship Status Dates Stephanie Kramer NP, CANARY RAISER-C Primary care physician Acti ve Start: May 22, 2025 End: May 22, 2025 Stephanie Kramer NP, CANARY RAISER-C Referring Provider Active Start: May 22, 2025 End: May 22, 2025 ROBERTA DoverC Attending physician Active Start: May 22, 2025 End: May 22, 2025 Team Status: Inactive Member Role/Relationship Status Dates Stephanie Kramer NP, CANARY RAISER-C Primary care physician Acti ve Start: May 10, 2025 End: May 10, 2025 Dr. Barbara Xiao MD Attending physician Active Start: May 10, 2025 End: May 10, 2025 Dr. Barbara Xiao MD Referring Provider Active Start: May 10, 2025 End: May 10, 2025 Team Status: Active Member Role/Relationship Status Dates Stephanie Kramer NP, CANARY RAISER-C Primary care physician Acti ve Start: May 22, 2025 CHARLY Dover Attending physician Active Start: May 22, 2025 CHARLY Dover Referring Provider Active Start: May 22, 2025 Team Status: Active Member Role/Relationship Status Dates Stephanie Kramer NP, CANARY RAISER-C Primary care physician Acti ve Start: May 23, 2025 CHARLY Dover Attending physician Active Start: May 23, 2025 Team Status: Inactive Member Role/Relationship Status Dates Stephanie Kramer NP, CANARY RAISER-C Primary care physician Acti ve Start: June 03, 2025 End: June 03, 2025 Stephanie Kramer NP, CANARY RAISER-C Referring Provider Active Start: June 03, 2025 End: June 03, 2025 Dr. Elsie Newby , JENNIFER Attending physician Active Start: June 03, 2025 End: June 03, 2025 Team Status: Inactive Member Role/Relationship Status Dates Stephanie Kramer NP, CANARY RAISER-C Primary care physician Acti ve Start: May 22, 2025 End: May 22, 2025 CHARLY Dover Attending physician Active Start: May 22, 2025 End: May 22, 2025 CHARLY Dover Referring Provider Active Start: May 22, 2025 End: May 22, 2025 Team Status: Inactive Member Role/Relationship Status Dates Stephanie Kramer NP, CANARY RAISER-C Primary care physician Acti ve Start: May 23, 2025 End: May 23, 2025 CHARLY Dover Attending physician Active Start: May 23, 2025 End: May 23, 2025 Team Status: Inactive Member Role/Relationship Status Dates Stephanie Kramer NP, CANARY RAISER-C Primary care physician Acti ve Start: June 07, 2025 End: June 07, 2025 Dr. Og Kunz MD Attending physician Active Start: June 07, 2025 End: June 07, 2025 CHARLY Dover Referring Provider Active Start: June 07, 2025 End: June 07, 2025 INFORMATION SOURCE (unrecogn ized section and content) DATE CREATED AUTHOR 09/26/2024 [facility] DATE CREATED AUTHOR AUTHOR'S MARIE ATION 06/28/2025 [facility] FOR RECORDS PERTAINING TO PATIENTS WHO ARE [...] BE BASED ON THE PRIMARY CLINICAL RECORDS. [facility] [employer] [facility]. provides no warranty or guarantee of the accuracy or completeness of information in this document.
[2025-07-08] VITALS (14 sets, daily range): BP systolic 98–118; BP diastolic 65–83; PULSE 77–98; RESP 16–18; TEMP 36.4–37.3; O2SAT 94–100; BMI 23.6
[2025-07-08] MEDS: Lactated Ringers 1,000 ML 15 ML IV (09:50)
--- NOTE | 2025-07-08 09:52 | PCM.PRE.AN2 ---
ASA Classification* ASA Classification ASA Classification: 2 Assessment & Plan Anesthesia* Anesthesia Assessment Anesthesia Assessment: Discussed sedation and/or anesthesia options, risks, benefits, and alternatives with patient/parents/legal guardian/POA. Questions invited. The patient/parents/legal guardian/POA seems to understand and agrees to proceed with anesthesia plan. Reviewed the physical assessment, medical history, allergy history and patient home medications list prior to surgery/procedure/anesthetic and documented any changes. Performed airway and anesthesia risk assessments. Anesthesia Type Anesthesia Type: General Anesthesia Focused Assessment* Temperature: 97.6 F Pulse Rate: 77 Blood Pressure: 106/65 Respiratory Rate: 16 Pulse Ox: 100 Airway Assessment Mouth opens: >3 cm Mallampati Score: II Labs Anesthesia Preop lab: CBC WBC, (4.4-11.0) 10.0 K/mm3 05/10/25, 10:58 RBC, (4.2-5.4) 4.89 M/mm3 05/10/25, 10:58 Hgb, (12.0-15.0) 13.0 g/dL 05/10/25, 10:58 Hct, (37-47) 40.4 % 05/10/25, 10:58 Plt Count, (150-450) 259 K/mm3 05/10/25, 10:58 CHEMISTRY Potassium, (3.3-5.1) 3.8 mmol/L 05/10/25, 10:58 Sodium, (133-145) 137 mmol/L 05/10/25, 10:58 Magnesium, (1.6-2.6) 2.2 mg/dL 08/08/24, 11:07 Phosphorus, (2.7-4.5) 3.5 mg/dL 04/26/25, 05:55 BUN, (4-19) 8 mg/dL 05/10/25, 10:58 Creatinine, (0.70-1.20) 0.61 mg/dL L 05/10/25, 10:58 Glucose, (70-99) 89 mg/dL 05/10/25, 10:58 POC Glucose, (74-106) 82 mg/dL 08/10/22, 09:07 TSH, (0.358-3.740) 2.650 uIU/mL 05/23/24, 08:42 COAG HCG, Quant, (1-3) < 1 mIU/mL 03/12/21, 15:45 Urine Test Negative Negative 05/06/25, 10:00 Tst Clinic Negative 06/10/20, 14:56 Pre-Assessment Diagnosis/Proposed Procedure Planned Operative Procedure(s): EXP LAP POSSIBLE OOPHERECTOMY Anesthesia History 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 When Was Last Pacemaker Check QUESTION #4 FULL TEXT: You/Your Family Experience fever (hyperthermia) with Anesthesia Last Oral Intake Last Oral intake: Last Oral Intake NPO since 00:00 07/08/25 09:43 Meds taken in AM with sips of No 07/08/25 09:43 water? 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 Female Yes 06/27/25 10:01 HX of Motion Sickness Yes 06/27/25 10:01 HX of N/V After Surgery No 06/27/25 10:01 Non-Smoker Yes 06/27/25 10:01 Duration of Surgery greater No 06/27/25 10:01 than 60 minutes Number of Risk Factors 3 06/27/25 10:01 PONV Score Moderate Risk 06/27/25 10:01 Height & Weight Height & Weight: Anesthesia: Height & Weight Height 5 ft 07/08/25 09:43 Weight: 55 kg 07/08/25 09:43 Body Mass Index (BMI) 23.6 07/08/25 09:43 Respiratory Assessment Respiratory Assessment - fishing boat mate: Respiratory Tract Infection Hx - fishing boat mate Hx Respiratory Tract Infection No 06/27/25 10:01 STOP Sleep Apnea STOP Sleep Apnea - fishing boat mate: STOP Sleep Apnea - fishing boat mate Hx Hypertension No 06/27/25 10:01 Hx Sleep Apnea No 06/27/25 10:01 CPAP No 02/19/25 13:10 BIPAP Do you snore loudly (louder No 06/27/25 10:01 than talking or can be heard Do you often feel tired/ No 06/27/25 10:01 fatigued/ sleepy during daytime? Has anyone observed you stop No 06/27/25 10:01 breathing during sleep? STOP Results Negative 06/27/25 10:01 QUESTION #5 FULL TEXT : Do you snore loudly (louder than talking or can be heard through closed doors)? 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 Specify any problems Hx of Preganancy in last 3 No 06/27/25 10:01 Months Nurse Filling Out Transfusion EHMORLEY 06/27/25 10:01 & Questions: Date: 06/27/25 06/27/25 10:01 Time: 10:08 06/27/25 10:01 Patient unable to answer at this time (ie. confused, unrespo /Reproduction History /Reproductive History - fishing boat mate: /Reproductive Hx- fishing boat mate Hx Now No 06/27/25 10:01 Gestational Age (in weeks): EDC: Hx Hx Para Hx Section SAB No 06/27/25 10:01 Active Medications Active Medications: Current Medications Generic Name Dose Route Start Last Admin Trade Name Freq PRN Reason Stop Dose Admin Cefotetan Disodium 2 gm/ 100 mls @ 200 mls/hr 07/08/25 11:00 Sodium Chloride IV 07/08/25 11:29 INTRAOP ONE Lactated Ringer's 1,000 mls @ 15 mls/hr 07/08/25 09:30 07/08/25 09:50 IV 15 mls/hr .Q48H ALEXIS Administration PFSH Medical History Depression Anxiety History of IBS Non-smoker Wears glasses Wears contact lenses Breast mass, left Abnormal mammogram of left breast COVID-19 Mass of head Anxiety and depression Frequent headaches Home Medications Medication Instructions Recorded Last Taken Type valacyclovir 500 mg tablet 500 mg PO DAILY PRN Cold Sores 04/25/24 Unknown History escitalopram oxalate 10 mg tablet 10 mg PO DAILY PRN anxiety 06/07/25 Unknown History Allergy/AdvReac Type Severity Reaction Status Date / Time hydromorphone (From Dilaudid) AdvReac Other Verified 07/08/25 09:42 oxycodone (From Percocet) AdvReac Nausea Verified 07/08/25 09:42 Family History Father Diabetes Hypertension Mother Hypertension Surgical History History of esophagogastroduodenoscopy (EGD) Status post hysterectomy History of section History of dilation and curettage lumpectomy back of head Social History Smoking Status: Never smoker alcohol intake: current alcohol intake frequency: holidays/special occasions only details: pre- substance use type: does not use caffeine: Yes what type of physical activity do you participate in: walking and other details: cardio frequency: 5-6 times per week seatbelt use: always do you feel safe at home: Yes additional social history: Gallo Patient works at [employer] Review of Systems (Anesthesia) ROS Narrative System reviewed and no additional complaints, except as documented.
--- NOTE | 2025-07-08 10:09 | PCM.HP.BLA ---
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 Required: No Is patient in pain?: Yes (pelvic and rectal) Allergies hydromorphone (From Dilaudid) Adverse Reaction (Verified 06/07/25 14:16) Other oxycodone (From Percocet) Adverse Reaction (Verified 06/07/25 14:16) Nausea Medications Medication Instructions Recorded Confirmed Type valacyclovir 500 mg tablet 500 mg PO DAILY PRN Cold Sores 04/25/24 06/07/25 History escitalopram oxalate 10 mg tablet 10 mg PO DAILY PRN 06/07/25 06/07/25 History Have you fallen in the past year?: No PFSH Medical History Wears glasses Wears contact lenses Heartburn Breast mass, left Abnormal mammogram of left breast COVID-19 Mass of head Anxiety and depression Frequent headaches Surgical History Status post hysterectomy History of section History of dilation and curettage lumpectomy back of head Family History Father Diabetes Hypertension Mother Hypertension Social History Smoking Status: Never smoker alcohol intake: current alcohol intake frequency: holidays/special occasions only details: pre- substance use type: does not use caffeine: Yes what type of physical activity do you participate in: walking and other details: cardio frequency: 5-6 times per week seatbelt use: always do you feel safe at home: Yes additional social history: Gallo Patient works at [employer] Female Reproductive History Menstrual Ab induced: 1 HPI HPI HPI: Patient is a 34-year-old female with pelvic pain. Patient reports that she has pelvic pain radiating into her rectum that happens randomly. It has been going on for several years. She has been having problems ever since she had a hysterectomy in 2021. Her course was complicated with a pelvic abscess that required percutaneous drainage. ROS General General: Yes fatigue; No weight change, appetite, colon cancer, breast cancer or weakness HEENT HEENT: No difficulty swallowing, eye injury, eye surgery, swollen glands or hoarseness Endo Endocrine: No thyroid disease, diabetes mellitus, thyroid cancer, Hair loss, heat intolerance or cold intolerance Breast Breast: Yes left breast lump; No right breast lump, nipple discharge, breast pain, abnormal mammogram, abnormal US or breast enlargement Cardio Cardiovascular: No murmur, pacemaker, heart disease, atrial fibrillation, high blood pressure, heart attack, heart stent, palpitations, shortness of breath with exertion or chest pain Psych Psychiatric: Yes anxiety; No depression or hearing voices Resp Respiratory: No shortness of breath, No sleep apnea, No cough, No COPD, No asthma, No emphysema and No wheezing Gastro Gastrointestinal: Yes abdominal pain, Yes nausea or vomiting, Yes diarrhea, Yes constipation, No blood in stool, No acid reflux, No hemorrhoids, No ulcers, No gallbladder problem and No black,tarry stools Ganga Hematologic: No blood thinners, No blood disorders, No bleeding, No anemia and No blood clots Neuro Neurologic: No weakness Exam Const General: cooperative Orientation: alert and oriented x3 HENMT Head: normal to inspection Neck Neck: normal visual inspection and full ROM Chest Chest palpation & inspection: normal inspection of the chest Resp Effort & Inspection: normal respiratory effort Auscultation: clear to auscultation bilaterally Cardio Rate: regular rate Rhythm: regular rhythm GI Inspection: non-distended Palpation: soft and nontender Skin General: no rashes or lesions noted Neuro General: patient alert and patient oriented x3 Extrem General: full ROM Psych Appearance: grossly normal Mental Status: mental status grossly normal Assessment and Plan Assessment and Plan (1) Tenesmus (rectal): Status: Acute Plan: Patient is having shooting rectal pain. On her CT scan I do see a fluid collection adjacent to the distal rectum in the pelvis. This may be residual fluid from her abscess in 2021. It appears present in the CT scan she had done last year as well as a CT scan she had done last month. I recommend exploratory laparoscopy to try to drain the area. I discussed this with her OB surgeon and she will join me for surgery. She would like to consent the patient for oophorectomy in case this is a cyst on the ovary. I discussed draining the cyst as well as exploratory laparoscopy. I explained the risks including but not limited to bleeding, infection, injury to underlying organs such as bowel or bladder. Patient understands the risks and is willing to proceed. Og Kunz MD Pager: [facility] [address] [place] [address], [address] [place] [phone] Office: I have examined the patient and the H&P has been reviewed. There are no clinical changes since date of exam.
[2025-07-08] MEDS: Lactated Ringers 1,000 ML 1000 ML IV (10:49)
[2025-07-08] MEDS: Midazolam 2 MG/2 ML Syringe IV (10:50)
[2025-07-08] MEDS: Lidocaine 1% (5 ml sdv) 5 ML Vial 6 ML IV (10:54)
--- NOTE | 2025-07-08 10:57 | PCM.HP.BLA ---
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 Required: No Is patient in pain?: Yes (pelvic and rectal) Allergies hydromorphone (From Dilaudid) Adverse Reaction (Verified 06/07/25 14:16) Other oxycodone (From Percocet) Adverse Reaction (Verified 06/07/25 14:16) Nausea Medications Medication Instructions Recorded Confirmed Type valacyclovir 500 mg tablet 500 mg PO DAILY PRN Cold Sores 04/25/24 06/07/25 History escitalopram oxalate 10 mg tablet 10 mg PO DAILY PRN 06/07/25 06/07/25 History Have you fallen in the past year?: No PFSH Medical History Wears glasses Wears contact lenses Heartburn Breast mass, left Abnormal mammogram of left breast COVID-19 Mass of head Anxiety and depression Frequent headaches Surgical History Status post hysterectomy History of section History of dilation and curettage lumpectomy back of head Family History Father Diabetes Hypertension Mother Hypertension Social History Smoking Status: Never smoker alcohol intake: current alcohol intake frequency: holidays/special occasions only details: pre- substance use type: does not use caffeine: Yes what type of physical activity do you participate in: walking and other details: cardio frequency: 5-6 times per week seatbelt use: always do you feel safe at home: Yes additional social history: Gallo Patient works at [employer] Female Reproductive History Menstrual Ab induced: 1 HPI HPI HPI: Patient is a 34-year-old female with pelvic pain. Patient reports that she has pelvic pain radiating into her rectum that happens randomly. It has been going on for several years. She has been having problems ever since she had a hysterectomy in 2021 performed by myself and after surgery she underwent a CT guided percutaneous drainage of a pelvic abscess. Dr. Kunz ordered a repeat CT recently and noted a fluid collection in the pelvis. He recommends a diagnostic laparoscopy and I will be joining him for continuity of care and if anything gynecological happens to be present. ROS General General: Yes fatigue; No weight change, appetite, colon cancer, breast cancer or weakness HEENT HEENT: No difficulty swallowing, eye injury, eye surgery, swollen glands or hoarseness Endo Endocrine: No thyroid disease, diabetes mellitus, thyroid cancer, Hair loss, heat intolerance or cold intolerance Breast Breast: Yes left breast lump; No right breast lump, nipple discharge, breast pain, abnormal mammogram, abnormal US or breast enlargement Cardio Cardiovascular: No murmur, pacemaker, heart disease, atrial fibrillation, high blood pressure, heart attack, heart stent, palpitations, shortness of breath with exertion or chest pain Psych Psychiatric: Yes anxiety; No depression or hearing voices Resp Respiratory: No shortness of breath, No sleep apnea, No cough, No COPD, No asthma, No emphysema and No wheezing Gastro Gastrointestinal: Yes abdominal pain, Yes nausea or vomiting, Yes diarrhea, Yes constipation, No blood in stool, No acid reflux, No hemorrhoids, No ulcers, No gallbladder problem and No black,tarry stools [place]anga Hematologic: No blood thinners, No blood disorders, No bleeding, No anemia and No blood clots Neuro Neurologic: No weakness Exam Const General: cooperative Orientation: alert and oriented x3 [facility] Head: normal to inspection Neck Neck: normal visual inspection and full ROM Chest Chest palpation & inspection: normal inspection of the chest Resp Effort & Inspection: normal respiratory effort Auscultation: clear to auscultation bilaterally GI Inspection: non-distended Palpation: soft and nontender Skin General: no rashes or lesions noted Neuro General: patient alert and patient oriented x3 Extrem General: full ROM Psych Appearance: grossly normal Mental Status: mental status grossly normal Assessment and Plan Assessment & Plan Assessment/Plan (1) Rectum pain: (2) Status post hysterectomy: PLAN: Plan After discussing the patient's diagnosis and treatment plan options, patient wishes to proceed with surgical management. I have discussed with the patient the risks, benefits, and alternatives of the procedure which include but are not limited to risks of anesthesia, bleeding, infection, possible damage to bowel, bladder, or surrounding vasculature which could lead to additional surgery to evaluate any complications. Patient agrees to procedure and wishes to proceed. we will be performing a diagnostic laparoscopy, evacuation of fluid colletion, possible oophorectomy
[2025-07-08] MEDS: fentaNYL 100 MCG/2 ML Ampul IV (11:00)
--- NOTE | 2025-07-08 11:00 | OV_PTH ---
PATIENT: SCHUYLER [place] [facility] [id number] AGE/SX: 34/F ROOM: RE07/08/[address]: Dr. Og Kunz MD : 1990 BED: DIS: 07/08/2025 SPEC #: [id number] RECD: 07/08/25 12:25 STATUS: SILVIA REJanette #: [id number] BRENT: 07/08/25 11:[address]: Og Kunz DEPT: SURGICAL PATHOLOGY RECD BY: Jimbo Beltran ENTERED: 07/08/25 13:45 SP TYPE: OVARY OTHR DR: Dr. Nisha Edouard, DO Stephanie Benites, YARN SORTER-C Tissues: A - Ovary, NOS Procedures: Surgery Specimen Level IV HEADER OPERATION: Exploratory laparoscopy PRE-OP DIAGNOSIS: Tenesmus (rectal) TISSUE SUBMITTED: A- Right ovary and remnant fallopian tube MICROSCOPIC DIAGNOSIS A. Right ovary and fallopian tube remnant, laparoscopic oophorectomy, salpingectomy: - Serous cystadenoma. - Corpus luteum cyst. - Focal aggregates of hemosiderin-laden macrophages. - Primordial, developing, and atretic follicles, and corpora albicantia. - Hydrosalpinx, fallopian tube remnant. MICROSCOPIC DESCRIPTION Slides are reviewed. GROSS DESCRIPTION A. Received in formalin labeled with the patient's name and date of . Designated as "right ovary and remnant fallopian tube" is a 16.9 g, 4.8 x 3.8 x 2.8 cm pérez-white to pink-red, solid to cystic, irregular and focally disrupted ovary. Sectioning reveals pérez-pink to red, solid to cystic and edematous cut surfaces with focally spongy parenchyma, a prominent corpus luteum, and foci of black discoloration. Also received within the container is a 3.3 x 2.0 x 1.4 cm pérez-pink, deflated portion of apparent fallopian tube, devoid of fimbria. [employer] Certified Network Associate sections are submitted in 6 cassettes as follows: A1: Ovary with corpus luteumA2-A3: Ovary with solid and cystic cut surfacesA4: Ovary with spongy parenchyma and foci of black discolorationA5-A6: Apparent fallopian tube SC 07/08/2025 CPT:53444
--- NOTE | 2025-07-08 11:56 | PCM.OPRPT ---
Operative Report (Standard) Operative Information Date of Procedure: 07/08/25 Pre-Operative Diagnosis: Fluid collection in the pelvis Post-Operative Diagnosis: Endometrioma and hydrosalpinx Surgery/Procedure Performed: Exploratory laparoscopy with right oophorectomy and salpingectomy color consultant: Yes Self Contained Behavior Unit Teacher: Nisha Edouard Tasks completed by assistant professor of theater: Opening and Closing Type of Anesthesia: General/Regional RN Documented Start/Stop Times: Operation Date: 07/08/25 11:00 Case Time Into Pre-Op 07/08/25 09:30 Out of Pre-Op 07/08/25 10:45 Anesthesia Start 07/08/25 10:49 Into Room 07/08/25 10:49 Procedure Start 07/08/25 11:06 Procedure End 07/08/25 11:43 Anesthesia End 07/08/25 11:50 Out of Room 07/08/25 11:50 Procedure Start Time: 11:06 Procedure Stop Time: 11:43 Select all DRAINS/GRAFTS/IMPLANTS that apply: None Estimated Blood Loss: 10 Specimen collected: Yes Description of specimen(s) removed: Right ovary and tube Description of surgery: The patient was brought back to the operating room and general anesthesia was induced. The perineum was prepped and draped as well as the abdomen. A midline incision was made superior to the umbilicus and the abdomen was entered using Visiport technique with a 5 mm port. The abdomen was then insufflated to 15 mmHg. The abdomen was inspected for injuries and there were none. Patient was placed in steep Trendelenburg position. Under direct visualization two 5 mm ports were placed and the original 5 mm port was upsized to a 12 mm port. The pelvis was inspected. It appeared the patient had hydrosalpinx on the right as well as an endometrioma of the ovary on the right. There was densely adherent to the pelvis. Dr. Montes resected the right ovary and tube. There was good hemostasis. They were placed into a bag and removed. Next the midline fascia was closed with an 0 Vicryl suture using a Scott Ortez needle. The skin incisions were injected with local anesthetic and closed with interrupted 4-0 Monocryl sutures. Steri-Strips and bandages were applied. Patient tolerated the procedure well and was brought to PACU in stable condition. Surgical Findings: Endometrioma of the right ovary as well as hydrosalpinx on the right Complications Complications: No Admit VTE Documentation VTE Mechan Device Prophylaxis: SCD's
--- NOTE | 2025-07-08 11:59 | EX.PCM.DISCH ---
Discharge Instructions Procedure General Surgery Diet Discharge Diet: Light diet - advance as tolerated Activity Discharge Activity: May Not Drive (for 2-3 days or while taking narcotic pain medications.) and - (Do not drive, work heavy equipment or sign legal documents for 24 hours.) May shower in (days): 1 Lifting Restrictions: 20 lbs for 2 weeks Additional Activity Instructions:: Pain medication may cause nausea. You should typically eat light foods as you take your pain medications. Pain medication may also cause constipation. If this is a problem for you, please discuss with your doctor. Alternate ibuprofen and Tylenol for pain control, [place] for breakthrough pain Dressing / Incision Call your doctor if your incision/area has: Continuous Slow Oozing, Sudden Increased Bleeding, Increased Pain/ Swelling, Increased Redness and Foul Smelling Discharge Call your doctor if you observe: Fever of 101 or Higher Suture Line Care: Avoid Pulling/Pushing and Avoid Pinching/Bending Remove Dressing in: 2 days Additional Dressing/Incision Instructions:: Leave operative bandaids on for 2 days. When you remove dressing, leave Steri-Strips on until your follow-up appointment, or until the Steri-Strips fall off on their own. Follow Up Care Please Follow Up With: Og Kunz MD When: Please call to schedule 2 week follow up appointment. [phone] Test Results: Test results from this visit will be discussed in further detail at your follow-up appointment, if applicable. Discharge Plan Admission Attending Provider: Og Kunz Primary Care Provider: Stephanie Benites NP Consulting Providers: Nisha Edouard Instructions Print Language: Kosovan Discharge Orders/Prescriptions Prescriptions: New hydrocodone-acetaminophen 5-325 mg Tablet 2 tab PO Q4H PRN PRN (Reason: Pain Score 4-10) 5 Days Qty: 14 0RF No Action valacyclovir 500 mg tablet 500 mg PO DAILY PRN (Reason: Cold Sores) escitalopram oxalate 10 mg tablet 10 mg PO DAILY PRN (Reason: anxiety) Referrals / Follow Up: Stephanie Benites NP, [facility]NAL [facility]S INTER[facility] [Primary Care Provider, Family Practice] Disposition Disposition (needs filled in before D/C Order can be placed): Home, Self Care
--- NOTE | 2025-07-08 12:01 | PCM.POST.ANE ---
Anesthesia: Postop Eval I Current Vital Signs Temperature: 98.7 F Pulse Rate: 98 Blood Pressure: 110/83 Respiratory Rate: 18 Pulse Ox: 96 Oxygen Delivery Method: Room Air Assessment Airway patent: Yes Spontaneous unlabored respirations: Yes Mental status: Awake and Calm nausea: No Vomiting: No Anesthesia Complication: No Fluid Hydration Crystalloid volume administer (ml): 1,000 Total IV fluid infused: 1,000 Progress Note Anesthesia document: Postop Eval 1 completed: Yes
--- NOTE | 2025-07-08 12:25 | PCM.OPRPT ---
Multi Select Codes Urinary/Genital Urinary/Genital CPT Codes: 37090 Lysis of adhesions, laproscopic [place] 39432 Laproscopic BS/O Operative Report (Standard) Operative Information Date of Procedure: 07/08/25 Pre-Operative Diagnosis: rectal pressure, fluid collection on CT Post-Operative Diagnosis: rectal pressure, fluid collection on CT, right ovarian endometrioma, hydrosalpinx Surgery/Procedure Performed: laparoscopic right salpingo-oophorectomy granulator machine operator: Yes Vp Securities: Nisha Edouard Tasks completed by assisted living housekeeper: Opening, Closing, Altering tissue and Hemostasis: Electrocautery Type of Anesthesia: General RN Documented Start/Stop Times: Operation Date: 07/08/25 11:00 Case Time Into Pre-Op 07/08/25 09:30 Out of Pre-Op 07/08/25 10:45 Anesthesia Start 07/08/25 10:49 Into Room 07/08/25 10:49 Procedure Start 07/08/25 11:06 Procedure End 07/08/25 11:43 Anesthesia End 07/08/25 11:50 Out of Room 07/08/25 11:50 Into Recovery 07/08/25 12:01 Procedure Start Time: 11:06 Procedure Stop Time: 11:43 Select all DRAINS/GRAFTS/IMPLANTS that apply: None Estimated Blood Loss: 5cc Specimen collected: Yes Description of specimen(s) removed: right ovary and fallopian tube Description of surgery: The patient was taken to the operating room by Dr. Kunz and I was invited in for continuity of care and patient complaint of pelvic and rectal pain. She had undergone a hysterectomy in 2021, complicated by a pelvic abscess that was drained under CT guidance. The patient was preped and draped in the usual sterile fashion. Her legs were placed in stirrups and a spnge stick was placed in the vagina. Gloves were changed and attention was turned toward the abdomen. Dr. Kunz first inserted a supraumbilical 5 mm trocar into the abdomen and CO2 air was inflated. A left and right lateral ports were also placed under direct visualization. A fluid collection in the cul-de-sac was first suctioned out. This appeared clear/yellow. The right fallopian tube remnant was noted to be edematous. The right IP ligament also edematous and the right ovary adherent to the posterior cul-de-sac and containing a probable endometrioma. The ovary was first hydrodissected off the cul-de-sac, then gently guided down with blunt dissection with Dr. Kunz's help. A ligature was used to cauterize and cut across the IP ligament and mesosalpinx to removed both the tube and ovary. These were then placed in an endocatch bag and removed through the supraumbilical port site via Dr. Kunz. Some areas of bleeding from the bed of the adhesion site was cauterized with monopolar cautery. Some adhesions were seen of the left ovary to the descending colon. The decision was made to not disrupt this side due to fear of bleeding and bowel injury. This concluded the surgery. Please see Dr. Kunz's portion on closing. Surgical Findings: endometriosis of the anterior abdominal wall, right ovary and cul-de-sac. Complications Complications: No Admit VTE Documentation VTE Present on Admission: No VTE Mechan Device Prophylaxis: SCD's VTE Pharm Prophylaxis ordered?: No
--- NOTE | 2025-07-08 12:35 | POSTOPAN2_ITS ---
Anesthesia Postop Eval I Sum Postop Eval Completion status Anesthesia document: Postop Eval 1 completed: Yes Anesthesia Postop Eval I Summary Anesthesia Postop Eval I Summary: Anesthesia Postop Eval I: Assessment Summary Airway patent Yes 07/08/25 12:02 [email or web address] Spontaneous unlabored Yes 07/08/25 12:02 [email or web address] respirations Mental status Awake,Calm 07/08/25 12:02 [email or web address] nausea No 07/08/25 12:02 FISH [email or web address] Vomiting No 07/08/25 12:02 FISH [email or web address] Anesthesia Postop Eval I: Fluid Summary Crystalloid volume administer 1,000 07/08/25 12:02 FISH [email or web address] (ml) Colloids volume administered ( ml) Blood Product volume administered (ml) Total IV fluid infused 1,000 07/08/25 12:02 FISH [email or web address] Anesthesia Postop Eval I: Summary Notes Anesthesia Complication No 07/08/25 12:02 FISH [email or web address] Anesthesia Complication Comment: Post-operative progress note Anesthesia: Postop Eval II Evaluation Mental status: Awake Pain Level: 0 nausea: No Vomiting: No
--- NOTE | 2025-07-08 12:35 | PCM.POSTANE2 ---
Anesthesia Postop Eval I Sum Postop Eval Completion status Anesthesia document: Postop Eval 1 completed: Yes Anesthesia Postop Eval I Summary Anesthesia Postop Eval I Summary: Anesthesia Postop Eval I: Assessment Summary Airway patent Yes 07/08/25 12:02 RESORT [email or web address] Spontaneous unlabored Yes 07/08/25 12:02 RESORT [email or web address] respirations Mental status Awake,Calm 07/08/25 12:02 RESORT [email or web address] nausea No 07/08/25 12:02 RESORT [email or web address] Vomiting No 07/08/25 12:02 RESORT [email or web address] Anesthesia Postop Eval I: Fluid Summary Crystalloid volume administer 1,000 07/08/25 12:02 RESORT [email or web address] (ml) Colloids volume administered ( ml) Blood Product volume administered (ml) Total IV fluid infused 1,000 07/08/25 12:02 RESORT [email or web address] Anesthesia Postop Eval I: Summary Notes Anesthesia Complication No 07/08/25 12:02 RESORT [email or web address] Anesthesia Complication Comment: Post-operative progress note Anesthesia: Postop Eval II Evaluation Mental status: Awake Pain Level: 0 nausea: No Vomiting: No
[2025-07-08] MEDS: Ketorolac 30 MG/ML Syringe IV (13:20)
[2025-07-08] MEDS: HYDROcodone Bitartrate/Apap 5/325 Tablet PO (14:02)
== END 2025-07-08 15:23 | disposition home or self-care (01) ==
LOC: SDC 09:24 → AC 09:25
PROVIDERS: PCP Registered Nurse; Referring Provider Surgery; Visit Provider Surgery
DX: D27.0 Benign neoplasm of right ovary (principal); N80.121 Deep endometriosis of right ovary; R19.8 Other specified symptoms and signs involving the digestive system and abdomen; N70.11 Chronic salpingitis; N83.11 Corpus luteum cyst of right ovary
CPT/HCPCS: 58661; 00840; 88305; J0525; J2405

== ENCOUNTER → 2025-07-23 | Outpatient (CLI) | payer OTHER, SELFPAY ==
--- NOTE | 2025-07-23 08:51 | EKG12_ITS ---
Test Reason : PALPITATIONS Blood Pressure : */* mmHG Vent. Rate : 71 BPM Atrial Rate : 71 BPM P-R Int : 138 ms QRS Dur : 88 ms QT Int : 396 ms P-R-T Axes : 50 70 41 degrees QTcB Int : 430 ms Normal sinus rhythm with sinus arrhythmia Normal ECG Confirmed by ONUR PISANO, KOLE ([id number]), editor newspaper MARYAM MASCORRO ([id number]) on 07/24/2025 6:25:42 AM Referred By: Nisha Edouard Confirmed By: KOLE MOHR MD
== END | disposition home or self-care (01) ==
LOC: PSN 08:50
PROVIDERS: PCP Registered Nurse; Referring Provider Obstetrics & Gynecology; Visit Provider Obstetrics & Gynecology
DX: R00.2 Palpitations (principal)
CPT/HCPCS: 93005